=== PATIENT | female | born 1950 | race African-American/Black ===

== ENCOUNTER 2023-03-12 07:55 | Inpatient (IN) | payer OTHER ==
[~2023-03-12 07:55] MED LIST: NA CHLORIDE 0.9% 1,000 ML ONE; NALOXONE HCL 2 MG/2 ML VIAL ONE; NOREPINEPHRINE BITARTRATE/D5W 4 MG/250 ML BAG IV ONE; TENECTEPLASE 50 MG/10 ML VIAL IV ONE
[2023-03-12] MEDS ORDERED: NOREPINEPHRINE BITARTRATE/D5W 0 MG/0 ML BAG IV ONE (08:15)
[2023-03-12] MEDS ORDERED: NA CHLORIDE 0.9% 250 ML ONE (08:16)
[2023-03-12 08:25] LABS: Arterial Blood Carboxyhemoglob 1.6 % (0-1.5); Blood Gas Oxyhemoglobin 90.9 % (94-97); Blood O2 Saturation 93.4 % (92-98.5)
--- OUTSIDE RECORDS SUMMARY | 2023-03-12 08:50 | XMS REPORT | Continuity of Care Document ---
:1950 Author Organization [facility] t Address [address] [facility] [address] [place] [address] Care Team Providers Name Role Phone Jocelyn Mathew MD Primary Care Physician [id number] Attending Clinician Unavailable Elder Jurado Attending Clinician Unavailable MARY STOVERL Darin Attending Clinician Unavailable KIERA STOVER Attending Clinician Unavailable YVETTE FORDUWATOSIN A Attending Clinician Unavailable COY BARRAGAN Attending Clinician Unavailable COY BARRAGAN Attending Clinician Unavailable MAURI JIMÉNEZ Attending Clinician Unavailable Jocelyn Mathew MD Attending Clinician Doctor Unassigned, Lavon Attending Clinician Unavailable Naomi Graham RN Attending Clinician Unavailable ASHU HERRING Attending Clinician Unavailable ASHU HERRING Attending Clinician Unavailable Huy Taylor DO Attending Clinician Nabila BURK, Tan Attending Clinician Noah BURK, Mike Attending Clinician JOCELYN MATHEW Attending Clinician Unavailable ELDER JURADO Attending Clinician Unavailable Arcelia Merrill DO Attending Clinician Mary Anne BURK, Ronal Attending Clinician Hector Gregorio DO Attending Clinician Cristian BURK, Mehul Attending Clinician David BURK, Gopi Attending Clinician Dennis BURK, Quan Attending Clinician Rhiannon BURK, Elder Attending Clinician Lavonne BURK, Allison Renee Attending Clinician [phone] Joshua [facility] [place], Brittni Esquivel Attending Clinician Coy Barragan DO Attending Clinician Katarzyna Anderson MA Attending Clinician Unavailable NICOLE WEATHERS Attending Clinician Unavailable Nicole Weathers MD Attending Clinician VALENTINA PAVON Attending Clinician Unavailable Fabiana AARON, Alisa Esquivel Attending Clinician ALISA JUNG Attending Clinician Unavailable JESI KEATING Attending Clinician Unavailable Artis BURK, Rose Elkins Attending Clinician [phone] Jesi Keating DO Attending Clinician ORLIN CADET Attending Clinician Unavailable Nayeli REZA, Afshan A Attending Clinician [phone] Valentina Mckeon Attending Clinician Leonel MOORE, Meron Wooten Attending Clinician Unavailable Blane [facility] [place], Gisele Madodx Attending Clinician Unavailable TIANA MIJARES Attending Clinician Unavailable Tiana Mijares MD Attending Clinician RADIOLOGY Attending Clinician Unavailable Radiology Attending Clinician Unavailable Robyn Mock Attending Clinician Ebrahim HUMAN FACTORS SCIENTIST, Rania Attending Clinician EBRAHIM, RANIA Attending Clinician Unavailable Unknown, Attending Attending Clinician Unavailable Orlin Cadet MD Attending Clinician Mauri Jiménez MD Attending Clinician Therapist, [facility] Pulmonary Attending Clinician Unavailable Therapist, [facility] Respiratory Attending Clinician Unavailable Pob, [facility] Lab Main Attending Clinician Unavailable Visit, [facility] Nurse Attending Clinician Unavailable 2, [facility] Lab Attending Clinician Unavailable ALLSION BANERJEE Attending Clinician Unavailable Vaccine, [facility] Family Medicine Attending Clinician Unavailable Ryan RN, Chad A Attending Clinician Unavailable SARAH TERAN Attending Clinician Unavailable SARAH TERAN Attending Clinician Unavailable Jaja Neri Attending Clinician Johnny FITZPATRICK, Mildred A Attending Clinician Unavailable Yuliana Tong PT Attending Clinician Unavailable CRISTI CALLEJAS Attending Clinician Unavailable Cristi Callejas MD Attending Clinician Pippa HUMAN FACTORS SCIENTIST, Blanca Attending Clinician Dalila Erickson A Attending Clinician DALILA SNYDER Attending Clinician Unavailable MORGAN MARTELL Attending Clinician Unavailable Nurse, [facility] Pob Immunization Attending Clinician Unavailable Morgan Martell DO Attending Clinician BLANCA DAS Attending Clinician Unavailable Enio Moe Attending Clinician Unavailable MIRZA DRIVER Attending Clinician Unavailable Provider, [facility] Urgent Care Attending Clinician Unavailable Anejoce HUMAN FACTORS SCIENTIST, Tia Attending Clinician TIA PENA Attending Clinician Unavailable Pc, [facility] Echo Room 1 - Attending Clinician Unavailable Ramesh Fernandez MD Attending Clinician Lab, [facility] Fam Pob I Attending Clinician Unavailable Nurse, [facility] Fam Attending Clinician Unavailable Haroldo Alvarado MD Attending Clinician Karen Payton PT Attending Clinician Unavailable Anita Watt PTA Attending Clinician Unavailable Ramesh Francois MD Attending Clinician Benji Perez Attending Clinician [id number] Admitting Clinician Unavailable MIKE CAMPOS Admitting Clinician Unavailable Mike Campos MD Admitting Clinician GOPI ELIAS Admitting Clinician Unavailable Gopi Elias MD Admitting Clinician NICOLE WEATHERS Admitting Clinician Unavailable Nicole Weathers MD Admitting Clinician JESI KEATING Admitting Clinician Unavailable Jesi Keating DO Admitting Clinician VALENTINA PAVON Admitting Clinician Unavailable ROBYN MOCK Admitting Clinician Unavailable COY BARRAGAN Admitting Clinician Unavailable JOCELYN MATHEW Admitting Clinician Unavailable MAURI JIMÉNEZ Admitting Clinician Unavailable ALLISON BANERJEE Admitting Clinician Unavailable BLANCA DAS Admitting Clinician Unavailable Payers Payer Name Policy Type Policy Number Effective Date Expiration Date S [facility] [id number] [facility] [id number] 2021 [facility] 00:00:00 O [employer] MEDICARE ERS [id number] 2017 00:00:00 Problems Condition Condition Condition Status Onset Resolution Last Treating Co mments Source Name Details Category Date Date Treatment Clinician Date Acute Acute Disease Active Univers respirator respirator 4-20 [place] y [place] failure [place] hypoxia hypoxia Branch and and hypercarbi hypercarbi a a Multifocal Multifocal Disease Active U nivers pneumonia pneumonia 4-05 ity of 00:00: [place] 00 Medical Branch Troponin I Troponin I Disease Active U nivers above above 3-29 ity of reference [place] 00:[place] range range 00 Medical [place] Acute on Acute on Disease Active Unive rs chronic chronic 3-27 ity of respirator [place] failure y failure 00 Medi dk with with Branch hypoxia hypoxia Acute Acute Disease Active Univers respirator respirator 3-18 it y of y failure y failure 00:[place] with 00 Medical hypoxia hypoxia Branch Weakness Weakness Disease Active Unive rs 3-17 ity of 00:00: [place] 00 Medical Branch Interstiti Interstiti Disease Active 2021-11 U nivers al lung al lung 1-22 ity of disease disease 00:00: [place] 00 [facility] Branch Chronic Chronic Disease Active 2021-11 Univers interstiti interstiti 1-22 it y of al al 00:00: [place] pneumonia pneumonia 00 [facility] Branch COVID-19 COVID-19 Disease Active 2021-11 Unive rs long long 1-22 ity of hauler hauler 00:00: [place] [facility] Branch Pulmonary Pulmonary Disease Active 2021-11 Uni vers nodule nodule -22 ity of 00:00: [place] 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 Branch Acquired Acquired Disease Active 2021-11 Unive rs hypothyroi hypothyroi 0-20 it y of dism dism 00:00: [place] 00 [facility] Branch Hypoxia Hypoxia Disease Active 2021-11 Univers 0-20 ity of 00:00: [place] [facility] Branch Chronic Chronic Disease Active 2021-11 Univers pain pain 0-20 ity of syndrome syndrome 00:00: [place] [facility] Branch Obesity Obesity Disease Active Univers (BMI (BMI 9-04 ity of 30-39.9) 30-39.9) 00:00: [place] 00 [facility] Branch Fever Fever Disease Active Univers 9-04 ity of 00:00: [place] 00 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 Branch Hip pain Hip pain Disease Active Unive rs 6-28 ity of 00:00: [place] 00 Medical Branch Elevated Elevated Disease Active Unive rs brain brain 6-28 ity of natriureti natriureti 00:00: [place] c peptide c peptide 00 [facility] (BNP) (BNP) Branch level level Acute on Acute on Disease Active Unive rs chronic chronic 6-28 ity of diastolic diastolic 00:00: [place] CHF CHF 00 Medical (congestiv (congestiv Br anch e heart e heart failure), failure), NYHA class NYHA class 3 3 VARNER VARNER Disease Active Univers (dyspnea (dyspnea 6-28 ity of on on 00:00: [place] exertion) exertion) 00 [facility] Branch TRENA (acute TRENA (acute Disease Active U nivers kidney kidney 6-27 ity of injury) injury) 00:00: [place] [facility] Branch Chronic Chronic Disease Active Univers kidney kidney 4-11 ity of disease-mi disease-mi 00:00: [place] neral and neral and 00 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 4-11 it y of sterolemia sterolemia 00:00: [place] 00 [place] Hypertensi Hypertensi Disease Active U nivers ve heart ve heart 4-11 ity of and and 00:00: [place] chronic chronic 00 Medical kidney kidney Branch disease disease with heart with heart failure failure and stage and stage 1 through 1 through stage 4 stage 4 chronic chronic kidney kidney disease, disease, or or unspecifie unspecifie d chronic d chronic kidney kidney disease disease Chronic Chronic Disease Active Univers heart heart 1-20 ity of failure failure 00:00: [place] with with 00 Medical preserved preserved Bran ch ejection ejection fraction fraction SERGE on SERGE on Disease Active Univers CPAP CPAP 1-20 ity of 00:00: [place] [facility] Hyperlipid Hyperlipid Disease Active U nivers emia, emia, 1-20 ity of unspecifie unspecifie 00:00: [place] d d 00 Medical hyperlipid hyperlipid Br anch emia type emia type 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 1-20 it y of a a 00:00: [place] [facility] Branch Diffuse Diffuse Disease Active Univers pain in pain in 2-11 ity of right right 00:00: [place] lower lower 00 Medical extremity extremity Bran ch Hypertensi Hypertensi Disease Active U nivers ve urgency ve urgency 2-11 it y of 00:00: [place] [facility] Chronic Chronic Disease Active Univers pain of pain of 2-11 ity of both lower both lower 00:00: [place] extremitie extremitie 00 Me dical s s Branch Senile Senile Disease Active Univers osteoporos osteoporos 2-04 it y of is is 00:00: [place] [facility] Gastroesop Gastroesop Disease Recurre Univers hageal hageal nce 1-02 ity of reflux reflux 00:00: [place] disease disease 00 Medical without without Branch esophagiti esophagiti s s DVT (deep DVT (deep Disease Active 2015-11 Uni vers venous venous 1-15 ity of thrombosis thrombosis 00:00: [place] ) ) 00 Medical Branch Morbid Morbid Disease Active 2015-11 Univers obesity obesity 1-15 ity of with body with body 00:00[place] mass index mass index 00 Me dical of of Branch 40.0-49.9 40.0-49.9 Vitamin D Vitamin D Disease Active Uni vers deficiency deficiency 8-28 it y of 00:00: [place] [facility] Vitamin Vitamin Disease Active Univers B12 B12 8-28 ity of deficiency deficiency 00:00: [place] 00 [place] 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 00:00: [place] mellitus mellitus 00 Medica l with with Branch hyperglyce hyperglyce joaquin joaquin Peripheral Peripheral Disease Active U nivers neuropathy neuropathy 1-12 it y of 00:00: [place] [facility] 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 00:00: [place] with with 00 Medical diabetic diabetic Branch neuropathy neuropathy Hypertensi Hypertensi Disease Active 2014-11 U nivers on, on, 0-17 ity of essential essential 00:00[place] 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 00:00: [place] multiple multiple 00 Medica l sites sites Branch without without tophus tophus Allergies, Adverse Reactions, Alerts Allergy Allergy Status Severity Reaction(s) Onset Inactive Treating Comm ents Source Name Type Date Date Clinician Hydralaz Propensi Active Other - See Reduced Univers ine ty to comments 07-30 appetite, ity o f adverse 00:00: weakness [place] reaction 00 Medical s Branch HYDRALAZ DRUG Active Other-Cmnt Univ ers INE INGREDI 07-30 ity of 00:00: [place] [facility] Amlodipi Propensi Active Swelling Univ ers ne ty to 07-27 ity of adverse 00:00: [place] reaction 00 Medical s Branch AMLODIPI DRUG Active Swelling Univer s NE INGREDI 07-27 ity of 00:00: [place] 00 Medical Branch No Known DA Active U 2019- [facility] Allergie 2-07 [place] [facility] 00:00: [place] 00 [facility] No Known DA Active U 2019-1 [facility] Allergie 2-07 [place] s 00:00: [place] 00 [facility] Atorvast Propensi Active Unknown - 0 Uni vers atin ty to See comments 4-14 ity of Calcium adverse 00:00: [place] reaction 00 Medical s Branch ATORVAST DRUG Active Unknown-Cmnt Un godfrey ATIN INGREDI 4-14 ity of CALCIUM 00:00: [place] 00 Medical Branch Pregabal Propensi Active Hallucinatio 2017- Univers in ty to ns 1-14 ity of adverse 00:00: [place] reaction 00 Medical s Branch PREGABAL DRUG Active Hallucinates 2017-11 Un godfrey IN INGREDI 1-14 ity of 00:00: [place] 00 Medical Branch Repaglin Propensi Active Rash 2017-11 Univer s amrik ty to 0-10 ity of adverse 00:00: [place] reaction 00 Medical s Branch REPAGLIN DRUG Active High Rash 2017- Univers AMRIK INGREDI 0-10 ity of 00:00: [place] 00 Medical Branch Iodine Propensi Active Hives 2014- Allergic Univer s ty to 0-16 to ity of adverse 00:00: injected [place] reaction Iodine, Medical s not Branch topical IODINE DRUG Active Hives 2014-11 Univers INGREDI 0-16 ity of 00:00: [place] 00 Medical [place] Family History Family Member Diagnosis Comments Start Date Stop Date Source Natural brother Diabetes Universit y of [facility] Natural brother Hypertension Univers ity of [place] [facility] Other [facility] Natural sister Diabetes [facility] Social History Social Habit Start Date Stop Date Quantity Comments Source History SDOH Social Unive rsity of Connections Get [place] Med ical Together Branch History SDOH Social Unive rsity of Connections Mandaeism [place] [facility] History SDOH Social Unive rsity of Connections [place] [facility] Membership Branch History SDOH Social Unive rsity of Connections [place] [facility] Meetings Branch History SDOH University o f Housing Places [facility] Lived Branch Exposure to 2023-02-13 2023-02-23 Not sure University of SARS-CoV-2 (event) 00:00:00 09:09:00 [facility] Branch Alcohol intake 2023-02-23 2023-02-23 Current University of 00:00:00 00:00:00 non-drinker of [facility] alcohol Branch (finding) History SDOH 2023-02-23 2023-02-23 1 University o f Alcohol Frequency 00:00:00 00:00:00 [place] M edical Branch History SDOH 2023-02-23 2023-02-23 0 University o f Alcohol Std Drinks 00:00:00 00:00:00 [place] [facility] History SDOH 2023-02-23 2023-02-23 1 University o f Alcohol Binge 00:00:00 00:00:00 [place] Medic al Branch History SDOH Social 2023-02-23 2023-02-23 4 Unive rsity of Connections Phone 00:00:00 00:00:00 [place] M edical Branch History SDOH Social 2023-02-23 2023-02-23 3 Unive rsity of Connections Living 00:00:00 00:00:00 [place] [facility] History SDOH 2023-02-23 2023-02-23 0 University o f Physical Activity 00:00:00 00:00:00 [place] M edical DPW Branch History SDOH 2023-02-23 2023-02-23 0 University o f Physical Activity 00:00:00 00:00:00 [place] M edical MPS Branch History SDOH 2023-02-23 2023-02-23 5 University o f Financial 00:00:00 00:00:00 [place] [facility] History SDOH 2023-02-23 2023-02-23 2 University o f Housing Unable to 00:00:00 00:00:00 [place] M edical Pay Branch History SDOH 2023-02-23 2023-02-23 2 University o f Housing Homeless 00:00:00 00:00:00 [facility] dical Last Year Branch History SDOH Food 2023-02-23 2023-02-23 1 Univers ity of Worry 00:00:00 00:00:00 [place] [facility] History SDOH Food 2023-02-23 2023-02-23 1 Univers ity of Scarcity 00:00:00 00:00:00 [place] [facility] History SDOH 2023-02-23 2023-02-23 2 University o f Transport Med 00:00:00 00:00:00 [place] Medic al Branch History SDOH 2023-02-23 2023-02-23 2 University o f Transport Non-Med 00:00:00 00:00:00 [facility] edical Branch Tobacco use and 2023-01-31 2023-01-31 Smokeless Universit y of exposure 00:00:00 00:00:00 tobacco non-user [facility] dical Branch Education 2022-05-02 2022-05-02 13 [facility] 00:00:00 00:00:00 [facility] Sex [birth year] At [birth year] Universit y of 00:00:00 00:00:00 [facility] Smoking Status Start Date Stop Date Source Never smoked tobacco [facility] Medications Ordered Filled Start Stop Current Ordering Indication Dosage Frequency Signature Comments Components Source Medication Medication Date Date Medication? Clinician (SIG) Name Name insulin Yes 20U 20 Units, Unive rs glargine 03-04 Subcutaneo ity o f (LANTUS 01:00: us, Q12H, [place] U-100) 00 First dose Medical injection (after Branch 20 Units last modificati on) on Mon03/03/23 at 2000, Until Discontinu ed, Routine cranberry 2022- No 1{tbl} Take 1 Uni vers conc-C-baci 03-03 tablet by it y of llus coag 13:16: 00:00 mouth [place] 250-30-50 16 :00 daily. Medical mg-mg-marilyn Branch on Tab bumetanide Yes [id number] 2mg Take 1 Univers 2 mg tablet 4-28 tablet by ity of 00:00: mouth in [place] 00 the Medical morning. Branch Insulin 0 Yes [id number] INJECT 25 U nivers Glargine 4-28 UNITS ity of (LANTUS 00:00: SUBCUTANEO [place] SOLOSTAR 00 USLY TWICE Medic al U-100 DAILY Branch INSULIN) 100 unit/mL (3 mL) injection spironolact 0 Yes [id number] 12.5mg Take 0.5 Univers one 25 mg 4-28 tablets by ity of tablet 00:00: mouth in [place] 00 the Medical morning. Branch insulin Yes [id number] 7U inject 7 Univers lispro, 4-28 9106 Units ity of human, 00:00: under the [place] (ADMELOG 00 skin in Medical U-100 the Branch INSULIN morning LISPRO) 100 and 7 unit/mL Units at injection noon and 7 Units in the evening. inject before meals. bumetanide Yes [id number] 2mg Take 1 Univers 2 mg tablet 4-28 tablet by ity of 00:00: mouth in [place] the Medical morning. Branch Insulin 0 Yes [id number] INJECT 25 U nivers Glargine 4-28 UNITS ity of (LANTUS 00:00: SUBCUTANEO [place] SOLOSTAR 00 USLY TWICE Medic al U-100 DAILY Branch INSULIN) 100 unit/mL (3 mL) injection spironolact 0 Yes [id number] 12.5mg Take 0.5 Univers one 25 mg 4-28 tablets by ity of tablet 00:00: mouth in [place] the Medical morning. Branch insulin 2022-0 Yes [id number] 7U inject 7 Univers lispro, 4-28 9106 Units ity of human, 00:00: under the [place] (ADMELOG 00 skin in Medical U-100 the Branch INSULIN morning LISPRO) 100 and 7 unit/mL Units at injection noon and 7 Units in the evening. inject before meals. bumetanide 2022-0 Yes [id number] 2mg Take 1 Univers 2 mg tablet 4-28 tablet by ity of 00:00: mouth in [place] 00 the Medical morning. Branch Insulin 2022-0 Yes [id number] INJECT 25 U nivers Glargine 4-28 UNITS ity of (LANTUS 00:00: SUBCUTANEO [place] SOLOSTAR 00 USLY TWICE Medic al U-100 DAILY Branch INSULIN) 100 unit/mL (3 mL) injection spironolact Yes [id number] 12.5mg Take 0.5 Univers one 25 mg 4-28 tablets by ity of tablet 00:00: mouth in [place] 00 the Medical morning. Branch insulin Yes [id number] 7U inject 7 Univers lispro, 4-28 9106 Units ity of human, 00:00: under the [place] (ADMELOG 00 skin in Medical U-100 the Branch INSULIN morning LISPRO) 100 and 7 unit/mL Units at injection noon and 7 Units in the evening. inject before meals. bumetanide Yes [id number] 2mg Take 1 Univers 2 mg tablet 4-28 tablet by ity of 00:00: mouth in [place] 00 the Medical morning. Branch Insulin Yes [id number] INJECT 25 U nivers Glargine 4-28 UNITS ity of (LANTUS 00:00: SUBCUTANEO [place] SOLOSTAR 00 USLY TWICE Medic al U-100 DAILY Branch INSULIN) 100 unit/mL (3 mL) injection spironolact Yes [id number] 12.5mg Take 0.5 Univers one 25 mg 4-28 tablets by ity of tablet 00:00: mouth in [place] 00 the Medical morning. Branch insulin Yes [id number] 7U inject 7 Univers lispro, 4-28 9106 Units ity of human, 00:00: under the [place] (ADMELOG 00 skin in Medical U-100 the Branch INSULIN morning LISPRO) 100 and 7 unit/mL Units at injection noon and 7 Units in the evening. inject before meals. tamsulosin 2022- Yes [id number] .4mg Take 1 Univers 0.4 mg 24 4-02 04-29 capsule by ity of hr capsule 00:00: 04:59 [place] :00 bedtime Medical for 30 days. tamsulosin 2022- Yes [id number] .4mg Take 1 Univers 0.4 mg 24 4- 05-29 capsule by ity of hr capsule 00:00: 04:59 [place] 00 :00 bedtime Medical for 30 Branch days. tamsulosin 2022- Yes [id number] .4mg Take 1 Univers 0.4 mg 24 -02 04-29 capsule by ity of hr capsule 00:00: 04:59 [place] 00 :00 bedtime Medical for 30 Branch days. tamsulosin 2022- Yes [id number] .4mg Take 1 Univers 0.4 mg 24 -02 04-29 capsule by ity of hr capsule 00:00: 04:59 [place] 00 :00 bedtime Medical for 30 Branch days. predniSONE 2022- Yes [id number] Take 2 Univers 20 mg 4-28 05-08 tablets by ity of tablet 00:00: 04:59 mouth [place] 00 :00 daily for Medical 3 days, Branch THEN 1 tablet daily for 3 days, THEN 0.5 tablets daily for 3 days. predniSONE 0 2022- Yes [id number] Take 2 Univers 20 mg 4- 05-08 tablets by ity of tablet 00:00: 04:59 mouth [place] 00 :00 daily for Medical 3 days, Branch THEN 1 tablet daily for 3 days, THEN 0.5 tablets daily for 3 days. predniSONE 2022- Yes [id number] Take 2 Univers 20 mg 4-28 05-08 tablets by ity of tablet 00:00: 04:59 mouth [place] 00 :00 daily for Medical 3 days, Branch THEN 1 tablet daily for 3 days, THEN 0.5 tablets daily for 3 days. predniSONE 2022- Yes [id number] Take 2 Univers 20 mg 4-28 05-08 tablets by ity of tablet 00:00: 04:59 mouth [place] 00 :00 daily for Medical 3 days, Branch THEN 1 tablet daily for 3 days, THEN 0.5 tablets daily for 3 days. sodium 2022-0 2022- No 4mL 4 mL, Univers chloride 7% 03-02 Inhalation i ty of (HYPER-CHAY) 21:00: 16:39 , QID, [place] as nebulizer 00 :46 First dose Medi dk solution 4 on [place] Branch mL 03/02/23 at 1600, Until Discontinu ed, Routine tamsulosin 0 Yes .4mg 0.4 mg, Univ ers (FLOMAX) 03-02 Oral, QHS, ity o f capsule 0.4 02:00: First dose [place] mg 00 on Mon03/01/23 at Branch 2100, Until Discontinu ed, Routine bumetanide Yes 2mg 2 mg, Univer s (BUMEX) 02-28 Oral, ity of tablet 2 mg 14:00: [place]ILY, [place] 00 First dose Medical (after Branch last modificati on) on Mon02/28/23 at 0900, Until Discontinu ed, Routine bumetanide 2022- No 1mg 1 mg, Slow Univers (BUMEX) 02-28 IV Push, ity of injection 1 06:00: 05:40 [place]CE, 1 [place] mg 00 :00 dose, On [facility] Mon [place] 02/28/23 at 0100, Routine KCL 2022- No 40meq 40 mEq, Univers (KLOR-CON 02-27 Oral, ity of M20) tablet 14:00: 13:50 [place]CE, 1 [place] 40 mEq 00 :00 dose, On [facility] 02/27/23 at 0900, Routine bumetanide 2022- No 2mg 2 mg, Unive rs (BUMEX) 02-27 Oral, ity of tablet 2 mg 14:00: 22:00 QAM+PM, [place] 00 :40 First dose Medical (after Branch last modificati on) on [facility] [facility] 02/27/23 at 0900, Until Discontinu ed, Routine insulin 2022- No 35U 35 Units, Univ ers glargine 02-27 Subcutaneo ity of (LANTUS 01:00: 14:51 us, Q12H, [place] U-100) 00 :04 First dose Medical injection (after Branch 35 Units last modificati on) on Mon02/26/23 at 2000, Until Discontinu ed, Routine insulin 2022- No 6U 6 Units, Unive rs lispro 02-26 Subcutaneo ity of (human) 18:30: 17:31 us, ONCE, Zachary garcia (HumaLOG 00 :00 1 dose, On Medic al U-100) Sun Branch injection 6 02/26/23 at Units 1330, ROSELYN acetaZOLAMI 2022- No 500mg 500 mg, U nivers DE (DIAMOX) 02-26 Oral, BID, i ty of tablet 500 01:00: 13:58 4 doses, [place] mg 00 :00 First dose Medical on Sat Branch 02/25/23 at 2000, Last dose on 02/27/23 at 0800, Routine insulin 2022- No 25U 25 Units, Univ ers glargine 02-26 Subcutaneo ity of (LANTUS 01:00: 17:30 us, Q12H, [place] U-100) 00 :59 First dose Medical injection on Sat Branch 25 Units 02/25/23 at 1999, Until Discontinu ed, Routine NaCl 0.9% No 1000mL at 100 Uni vers (NS) IV 02-25 mL/hr, IV ity of infusion 20:45: 06:00 Infusion, [place] 1,000 mL 00 :00 ONCE, 1 Medical dose, On Branch 02/25/23 at 1545, Routine dextrometho Yes 5mL 5 mL, Unive rs rphan-guaif 02-25 Oral, ity of enesin 20:10: Q6HPRN, [place] (ROBITUSSIN 18 Starting Medi dk DM) 10-100 on [facility] Branch mg/5 mL 02/25/23 at solution 5 1510, mL Until Discontinu ed, Routine, Cough HYDROcodone Yes 1{tbl} 1 tablet, Univers -acetaminop 02-25 Oral, ity of hen (NORCO 03:24: Q6HPRN, [place] 5) 5-325 mg 14 Starting Medi dk tablet 1 on Mon Branch tablet 02/24/23 at 2224, Until Discontinu ed, Routine, Pain (scale 7-10) bumetanide 2022- No 2mg 2 mg, Slow Univers (BUMEX) 02-25 IV Push, ity of injection 2 01:00: 23:30 Q12H, [place] mg 00 :12 First dose Medical (after Branch last reorder) on Mon02/24/23 at 2000, Until Discontinu ed, Routine Sliding 2022-0 Yes Subcutaneo Univ ers Scale - us, TID ity of Insulin - 22:00: MEALS+HS, [place] Lispro 00 First dose Medical (HumaLOG) + on Mon Branch Fsbg 02/24/23 at Testing 1700, Until Discontinu ed, Routine dextrose 2022-0 Yes 250mL 250 mL, IV Un godfrey 10% (D10W) 02-24 Infusion, ity of bolus 17:27: PRN - SEE [place] infusion 43 INSTRUCTIO Medic al 250 mL NS, Branch Administer over 60 Minutes, Other, If blood glucose is < or = 70 mg/dL and patient is unable to swallow or has mental status changes, Starting on Mon02/24/23 at 1227
If blood glucose is < or = 70 mg/dL and patient is unable to swallow or has mental status changes (Give glucagon order if patient needs fluid restrictio n): IF IV access available: Dextrose 10%. 1. 125 mL (? bag) of D10W IV infusion - equivalent to 12.5 g dextrose 2. Blood glucose - draw blood glucose 15 minutes after D10W Administra tion. 3. If blood glucose is < 80 mg/dL, repeat.
glucagon Yes 1mg 1 mg, Univers (GLUCAGEN 02-24 Intramuscu ity of DIAGNOSTIC 17:27: lar, PRN, [place] KIT) 40 Starting Medical injection 1 on Mon Branch mg 02/24/23 at 1227, Until Discontinu ed, ROSELYN, Blood Glucose < or = 70 mg/dL and patient is NPO, unable to swallow or has mental changes. bumetanide 2022-0 2022- No 2mg 2 mg, Slow Univers (BUMEX) 02-24-21 IV Push, ity of injection 2 17:00: 16:24 ONCE, 1 [place] mg 00 :00 dose, On Medical Fri Branch 02/24/23 at 1200, Routine levothyroxi 2022-0 Yes 125ug 125 mcg, U nivers ne 02-24 Oral, ity of (SYNTHROID) 11:00: QAM-0600, [place] tablet 125 00 First dose Med ical mcg on Fri Branch 02/24/23 at 0600, Until Discontinu ed, Routine heparin 2022-0 Yes 5000U 5,000 Univers (porcine) 21 Units, ity of injection 01:00: Subcutaneo [place] 5,000 Units 00 us, Q12H, Med ical First dose Branch on [facility] 02/23/23 at 2000, Until Discontinu ed, Routine Sliding 2022-0 2022- No Subcutaneo Uni vers Scale 02-23 04-21 us, Q6H, ity of Insulin - 14:45: 17:27 First dose [place] Lispro 00 :57 on [facility] (HumaLOG) + 02/23/23 at anch Fsbg 0945, Testing Until Discontinu ed, Routine spironolact Yes 12.5mg 12.5 mg, Univers one -20 Oral, ity of (ALDACTONE) 14:00: DAILY, [place] tablet 12.5 00 First dose Me dical mg on [facility] Branch 02/23/23 at 0900, Until Discontinu ed, Routine predniSONE Yes 40mg 40 mg, Unive rs (DELTASONE) 4-20 Oral, ity of tablet 40 14:00: DAILY, [place] mg 00 First dose Medical on [facility] Branch 02/23/23 at 0900, Until Discontinu ed, Routine bumetanide 0 2022- No 1mg 1 mg, Slow Univers (BUMEX) 02-23 04-20 IV Push, ity of injection 1 13:41: 15:11 ONCE, 1 [place] mg 00 :00 dose, On Medical [facility]3] 02/23/23 at 0845, ROSELYN gabapentin 0 Yes 600mg 600 mg, Uni vers (NEURONTIN) 4-20 Oral, TID, it y of capsule 600 13:15: First dose [place] mg 00 on [facility] 02/23/23 at Branch 0815, Until Discontinu ed, Routine carvediloL 0 Yes 12.5mg 12.5 mg, U nivers (COREG) 4-20 Oral, BID ity of tablet 12.5 13:15: MEALS, [place] mg 00 First dose Medical on [facility]3] 02/23/23 at 0815, Until Discontinu ed, Routine tiZANidine 2022- No 2mg 2 mg, Unive rs (ZANAFLEX) 02-23 Oral, ity of tablet 2 mg 13:01: 20:07 Q8HPRN, [place] 07 :13 Starting Medical on [facility] Branch 02/23/23 at 0801, Until 02/25/23 at 1507, Muscle Spasms ipratropium Yes .5mg 0.5 mg, Uni vers (ATROVENT) 02-23 Inhalation ity of 0.02 % 12:59: , Q6HPRN, [place] nebulizer 51 Starting Medica l solution on [facility]3] 0.5 mg 02/23/23 at 0759, Until Discontinu ed, Routine, Wheezing, Shortness of Breath ipratropium 2022- No 6mL 6 mL, Univ ers -albuteroL 02-23 Inhalation it y of (DUONEB) 12:15: 12:22 , ONCE [place] 0.5 mg-3 00 :00 NOW, 1 Medical mg(2.5 mg dose, On Branch base)/[address] [facility] nebulizer 02/23/23 at solution 6 0715, mL Routine aspirin 2022- No 325mg 325 mg, Unive rs tablet 325 02-23 Oral, ity of mg 12:00: 11:36 ONCE, 1 [place] 00 :00 dose, On Medical [facility]3] 02/23/23 at 0700, Routine enoxaparin 2022- No 100mg 100 mg, Un godfrey (LOVENOX) 02-23 Subcutaneo ity of injection 12:00: 11:40 us, ONCE, [place] 100 mg 00 :00 1 dose, On Medical [facility]3] 02/23/23 at 0700, Routine nitroglycer No .5[in_u 0.5 Inch, Univers in (NITROL) 02-23 s] Transderma i ty of 2 % 11:15: 11:40 l (Apply [place] ointment 00 :00 To Skin), Medica l 0.5 Inch ONCE, 1 Branch dose, On [facility] 02/23/23 at 0615, ROSELYN ipratropium 2022- No 6mL 6 mL, Univ ers -albuteroL 02-23 Inhalation it y of (DUONEB) 11:00: 09:57 , ONCE [place] 0.5 mg-3 00 :00 NOW, 1 Medical mg(2.5 mg dose, On base)/3 mL [place] nebulizer 02/23/23 at solution 6 0600, mL Routine dextrose No 250mL 250 mL, IV U nivers 10% (D10W) 02-23 Infusion, ity of bolus 10:45: 11:09 ONCE, [place] infusion 00 :00 Administer Medic al 250 mL over 60 Branch Minutes, On [place] 02/23/23 at 0545, For 1 dose
De xtrose 10% 250 mL bag contains:& nbsp;10 gm = 100 mL 20 gm = 200 mL 25 gm = 250 mL (whole bag) The maximum rate at which dextrose can be infused without producing glycosuria is 0.5 g/kg/hour. &nbs p;BUD: If wrapper is open bag is good for 30 days at room temperatur e. <b r> omeprazole Yes 40mg 40 mg, Unive rs (PRILOSEC) - Oral, ity of capsule 40 14:00: DAILY, [place] mg 00 First dose Medical on Mon02/22/23 at 0900, Until Discontinu ed, Routine predniSONE 2022- No [id number] 40mg Take 2 Univers 20 mg -22 02-28 tablets by ity of tablet 00:00: 00:00 mouth in [place] 00 :00 the [facility] for 5 days. predniSONE 2022- Yes [id number] 40mg Take 2 Univers 20 mg 4-22 02-25 tablets by ity of tablet 00:00: 04:59 mouth in [place] 00 :00 the [facility] for 5 days. predniSONE 2022- Yes [id number] 40mg Take 2 Univers 20 mg 4-22 02-25 tablets by ity of tablet 00:00: 04:59 mouth in [place] 00 :00 the Medical morning Branch for 5 days. bisacodyL Yes 10mg 10 mg, Univer s (DULCOLAX) 4-18 Rectal, ity of suppository 20:17: QHSPRN, [place] 10 mg 01 Starting Medical on Tue Branch 02/21/23 at 1517, Until Discontinu ed, Routine, Constipati on unresolved by oral medication s cranberry Yes 1{tbl} Take 1 Univ ers conc-C-baci 4-18 tablet by ity of llus coag 17:32: mouth [place] 250-30-50 18 daily. Medical mg-mg-marilyn Branch on Tab cranberry Yes 1{tbl} Take 1 Univ ers conc-C-baci 4-18 tablet by ity of llus coag 15:59: mouth [place] 250-30-50 32 daily. Medical mg-mg-marilyn Branch on Tab sennosides- Yes 1{tbl} 1 tablet, Univers docusate 4-18 Oral, BID, ity o f sodium 03:15: First dose [place] (SENOKOT-S) 00 on Mon Medica l 8.6-50 mg 02/20/23 at Bran ch per tablet 2215, 1 tablet Until Discontinu ed, Routine bumetanide 2022- Yes [id number] 2mg Take 1 Univers 2 mg tablet 02-21-19 tablet by it y of 00:00: 04:59 mouth [place] 00 :00 every Medical morning Branch and evening for 30 days. carvediloL 2022- Yes [id number] 12.5mg Take 1 Univers 12.5 mg -23 03-19 tablet by ity of tablet 00:00: 04:59 mouth in [place] 00 :00 the Medical morning Branch and 1 tablet in the evening. Take with meals. Do all this for 30 days. bumetanide 2022- Yes [id number] 2mg Take 1 Univers 2 mg tablet 02-21-19 tablet by it y of 00:00: 04:59 mouth [place] 00 :00 every Medical morning Branch and evening for 30 days. carvediloL 2022- Yes [id number] 12.5mg Take 1 Univers 12.5 mg 4-18 05-19 tablet by ity of tablet 00:00: 04:59 mouth in [place] 00 :00 the Medical morning Branch and 1 tablet in the evening. Take with meals. Do all this for 30 days. carvediloL 2022- Yes [id number] 12.5mg Take 1 Univers 12.5 mg 4-18 05-19 tablet by ity of tablet 00:00: 04:59 mouth in [place] 00 :00 the Medical morning Branch and 1 tablet in the evening. Take with meals. Do all this for 30 days. carvediloL 2022- Yes [id number] 12.5mg Take 1 Univers 12.5 mg 4-18 05-19 tablet by ity of tablet 00:00: 04:59 mouth in [place] 00 :00 the Medical morning Branch and 1 tablet in the evening. Take with meals. Do all this for 30 days. carvediloL 2022- Yes [id number] 12.5mg Take 1 Univers 12.5 mg 4-18 05-19 tablet by ity of tablet 00:00: 04:59 mouth in [place] 00 :00 the [facility] morning [place] and 1 tablet in the evening. Take with meals. Do all this for 30 days. carvediloL 2022- Yes [id number] 12.5mg Take 1 Univers 12.5 mg 4-18 05-19 tablet by ity of tablet 00:00: 04:59 mouth in [place] 00 :00 the [facility] morning [place] and 1 tablet in the evening. Take with meals. Do all this for 30 days. bumetanide 2022- No [id number] 2mg Take 1 Univers 2 mg tablet 4-18 -28 tablet by it y of 00:00: 00:00 mouth [place] 00 :00 every Medical morning Branch and evening for 30 days. carvediloL Yes 12.5mg 12.5 mg, U nivers (COREG) 4-17 Oral, BID ity of tablet 12.5 22:00: MEALS, [place] mg 00 First dose Medical (after Branch last modificati on) on 02/20/23 at 1700, Until Discontinu ed, Routine phenoL Yes 1{spray 1 [place], Univ ers (SORE 4-17 } Oral, PRN, ity of THROAT 11:13: Starting [place] (PHENOL)) 24 on Mon Medical 1.4 % spray 02/20/23 at Br anch bottle 1 0613, [place] Until Discontinu ed, Routine, Sore throat guaiFENesin Yes 200mg 200 mg, Un godfrey 100 mg/5 mL 02-20 Oral, ity of solution 05:15: Q6HPRN, [place] 200 mg 39 Starting Medical on Mon Branch 02/20/23 at 0015, Until Discontinu ed, Routine, Cough bumetanide Yes 2mg 2 mg, Univer s (BUMEX) 02-18 Oral, ity of tablet 2 mg 22:00: QAM+PM, [place] 00 First dose Medical on Mon Branch 02/18/23 at 1700, Until Discontinu ed, Routine piperacilli 2022- No 3.375g 3.375 g, Univers n-tazobacta 02-18 IV ity of m (ZOSYN) 14:00: 10:33 Piggyback, [place] 3.375 g in 00 :00 Q8H ABX, 9 Med ical NaCl 0.9% doses, Branch (NS) 100 mL First dose MINI-BAG (after last reorder) on [facility] 02/18/23 at 0900, Last dose on Mon02/21/23 at 0100, Administer over 4 Hours, 100 mL
Reas on for Anti-Infec tive: Documented Infection< br>Documen walt Infection Site: Respirator y
Durat ion of Therapy: Other (see Comments) KCL 2022- No 40meq 40 mEq, Univers (KLOR-CON 02-17 Oral, ity of M20) tablet 14:30: 14:27 ONCE, 1 [place] 40 mEq 00 :00 dose, On Medical Fri Branch 02/17/23 at 0930, Routine sulfur 2022- No [id number] 5mL 5 mL, Univ ers hexafluorid 02-16 Intravenou i ty of e microsphr 14:45: 14:45 s, ONCE, 1 [place] (LUMASON) 00 :00 dose, On Medica l injection 5 [place] Branch mL 02/16/23 at 0945, Routine
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 Restricted medication : NIK LÓPEZ bumetanide 2022- No 3mg 3 mg, Slow Univers (BUMEX) 02-16 IV Push, ity of injection 3 01:00: 16:05 Q12H, [place] mg 00 :50 First dose Medical (after Branch last modificati on) on Mon02/15/23 at 2000, Until Discontinu ed, Routine ipratropium Yes 3mL 3 mL, Unive rs -albuteroL 02-15 Inhalation ity of (DUONEB) 21:00: , QID, [place] 0.5 mg-3 00 First dose Medic al mg(2.5 mg on Mon [place] )/3 mL 02/15/23 at nebulizer 1600, solution 3 Until mL Discontinu ed, Routine bumetanide 2022- No 2mg 2 mg, Slow Univers (BUMEX) 02-15 IV Push, ity of injection 2 15:30: 17:58 Q24H, [place] mg 00 :21 First dose Medical on Mon [place] 02/15/23 at 1030, Until Discontinu ed, Routine insulin Yes 35U 35 Units, Unive rs glargine 02-15 Subcutaneo ity o f (LANTUS 13:00: us, BID, [place] U-100) 00 First dose Medical injection (after Branch 35 Units last modificati on) on Mon02/15/23 at 0800, Until Discontinu ed bumetanide 2022- No 1mg 1 mg, Slow Univers (BUMEX) 02-15 IV Push, ity of injection 1 04:00: 04:25 ONCE, 1 [place] mg 00 :00 dose, On Medical [facility] 02/14/23 at 2300, Routine piperacilli 2022- No 3.375g 3.375 g, Univers n-tazobacta 02-15 IV ity of m (ZOSYN) 00:30: 21:25 Piggyback, [place] 3.375 g in 00 :00 Q8H ABX, 9 Med ical NaCl 0.9% doses, Branch (NS) 100 mL First dose MINI-BAG on Mon02/14/23 at 1930, Last dose on Mon02/17/23 at 1130, Administer over 4 Hours, 100 mL
Reas on for Anti-Infec tive: Documented Infection< br>Documen walt Infection Site: Respirator y
Durat ion of Therapy: Other (see Comments) bumetanide No 2mg 2 mg, Unive rs (BUMEX) 02-14 Oral, ity of tablet 2 mg 22:00: 14:22 QAM+PM, [place] 00 :12 First dose Medical (after Branch last modificati on) on Mon02/14/23 at 1700, Until Discontinu ed, Routine piperacilli No 3.375g 3.375 g, Univers n-tazobacta 02-14 IV ity of m (ZOSYN) 16:30: 17:33 Piggyback, [place] 3.375 g in 00 :00 ONCE, 1 Medica l NaCl 0.9% dose, On Branch (NS) 100 mL Mon MINI-BAG 02/14/23 at 1130, Administer over 30 Minutes, 100 mL
Reas on for Anti-Infec tive: Documented Infection< br>Documen walt Infection Site: Respirator y
Du ration of Therapy: Other (see Comments) predniSONE Yes 40mg 40 mg, Unive rs (DELTASONE) 02-14 Oral, ity of tablet 40 14:00: DAILY, [place] mg 00 First dose Medical on Mon Branch 02/14/23 at 0900, Until Discontinu ed, Routine diltiazem No 120mg 120 mg, Uni vers XR 02-13 Oral, ity of (DILT-XR) 19:30: 15:59 DAILY, [place] capsule 120 00 :07 First dose Me dical mg on Mon02/13/23 at 1430, Until Discontinu ed, Routine albuterol No 2.5mg 2.5 mg, Uni vers (PROVENTIL) 02-13 Inhalation i ty of 2.5 mg /3 00:15: 17:56 , Q6H, [place] mL (0.083 00 :13 First dose Medi dk %) on Sun Branch nebulizer 02/12/23 at solution 1915, 2.5 mg Until Discontinu ed, Routine ERGOCALCIFE 2023-0 Yes [id number] Take 1 Univers ROL, 4-10 capsule by ity of VITAMIN D2, 00:00: mouth once [place] 1,250 mcg 00 a week Medical (50,000 Branch unit) capsule ERGOCALCIFE 2023-0 Yes [id number] Take 1 Univers ROL, 4-10 capsule by ity of VITAMIN D2, 00:00: mouth once [place] 1,250 mcg 00 a week Medical (50,000 Branch unit) capsule ERGOCALCIFE 2023-0 Yes [id number] Take 1 Univers ROL, 4-10 capsule by ity of VITAMIN D2, 00:00: mouth once [place] 1,250 mcg 00 a week Medical (50,000 Branch unit) capsule ERGOCALCIFE 2023-0 Yes [id number] Take 1 Univers ROL, 4-10 capsule by ity of VITAMIN D2, 00:00: mouth once [place] 1,250 mcg 00 a week Medical (50,000 Branch unit) capsule ERGOCALCIFE 2023-0 Yes [id number] Take 1 Univers ROL, 4-10 capsule by ity of VITAMIN D2, 00:00: mouth once [place] 1,250 mcg 00 a week Medical (50,000 Branch unit) capsule ERGOCALCIFE 2023-0 Yes [id number] Take 1 Univers ROL, 4-10 capsule by ity of VITAMIN D2, 00:00: mouth once [place] 1,250 mcg 00 a week Medical (50,000 Branch unit) capsule ipratropium 2022-0 202- No .5mg 0.5 mg, Un godfrey (ATROVENT) 02-11 04-12 Inhalation it y of 0.02 % 23:00: 17:56 , Q6H, [place] nebulizer 00 :13 First dose Medi dk solution (after Branch 0.5 mg last modificati on) on 02/11/23 at 1800, Until Discontinu ed, Routine levalbutero 2022-0 2023- No 1.25mg 1.25 mg, Univers l (XOPENEX) 02-11-10 Inhalation i ty of nebulizer 23:00: 00:09 , Q6H, [place] solution 00 :40 First dose Medic al 1.25 mg on Sat [place] 02/11/23 at 1800, Until Discontinu ed, Routine
Approved by: [facility] FENTanyl PF 2022- No Slow IV Un godfrey (SUBLIMAZE 02-10 Push, PRN, it y of (PF)) 16:03: 16:03 Starting [place] injection 17 :17 on Fri Medical 02/10/23 at Branch 1103, Until 02/10/23 at 1103, Routine, Intra-op lidocaine 2022- No PRN, Univers 1% (PF) 02-10 Starting ity of (XYLOCAINE) 16:03: 16:03 on Fri [place] injection 05 :05 02/10/23 at Medic al 1103, Branch Until Mon02/10/23 at 1103, Routine, Intra-op bumetanide 2022- No 2mg 2 mg, Unive rs (BUMEX) 02-10 Oral, ity of tablet 2 mg 14:00: 21:17 DAILY, [place] 00 :15 First dose Medical on Fri [place] 02/10/23 at 0900, Until Discontinu ed, Routine Vancomycin 2022- No 750mg 750 mg, IV Univers 750 mg in 02-10 Piggyback, ity of NaCl 0.9% 02:00: 03:12 ONCE, 1 [place] (NS) 250 mL 00 :00 dose, On [facility] dk VIAL-MATE [facility] 02/09/23 [facility] at 2100, Administer over 60 Minutes, 250 mL
R kathleen for Anti-Infec tive: Documented Infection< br>Documen walt Infection Site: Respirator y
Durat ion of Therapy: 7 days methylPREDN 2022- No 40mg 40 mg, Uni vers ISolone sod 02-10 Intravenou i ty of succ 01:00: 15:34 s, BID, [place] (SOLU-MEDRO 00 :06 First dose Me dical L (PF)) (after Branch injection last 40 mg modificati on) on [facility] 02/09/23 at 2000, Until Discontinu ed, 1 mL insulin Yes 5U 5 Units, Univer s lispro 02-09 Subcutaneo ity of (human) 22:00: us, TID [place] (HumaLOG 00 MEALS, Medical U-100) First dose Branch injection 5 on [place] Units 02/09/23 at 1700, Until Discontinu ed, Routine bumetanide No 1mg 1 mg, Unive rs (BUMEX) 02-0911 Oral, QPM, ity o f tablet 1 mg 22:00: 21:17 First dose [place] 00 :15 on [place] Medical 02/09/23 at Branch 1700, Until Discontinu ed, Routine insulin No 40U 40 Units, Univ ers glargine 02-0912 Subcutaneo ity of (LANTUS 18:15: 03:09 us, BID, [place] U-100) 00 :59 First dose Medical injection on [place] Branch 40 Units 02/09/23 at 1315, Until Discontinu ed aspirin EC Yes 81mg 81 mg, Unive rs tablet 81 02-09 Oral, ity of mg 14:00: DAILY, [place] 00 First dose Medical on [place] Branch 02/09/23 at 0900, Until Discontinu ed, Routine allopurinoL Yes 200mg 200 mg, Un godfrey (ZYLOPRIM) 02-09 Oral, ity of tablet 200 14:00: DAILY, [place] mg 00 First dose Medical on [place] Branch 02/09/23 at 0900, Until Discontinu ed, Routine pantoprazol No 40mg 40 mg, Uni vers e 02-09 Oral, ity of (PROTONIX) 14:00: 15:05 DAILY, [place] EC tablet 00 :28 First dose Medi dk 40 mg on [place] Branch 02/09/23 at 0900, Until Discontinu ed, Routine carvediloL No 6.25mg 6.25 mg, Univers (COREG) 02-09 Oral, BID ity of tablet 6.25 13:00: 15:59 MEALS, [place] mg 00 :41 First dose Medical on [place] Branch 02/09/23 at 0800, Until Discontinu ed, Routine bumetanide 2022- No .5mg 0.5 mg, Uni vers (BUMEX) 02-09 04-06 Slow IV ity of injection 13:00: 21:34 Push, BID, [place] 0.5 mg 00 :46 First dose Medical on [place] Branch 02/09/23 at 0800, Until Discontinu ed, Routine levothyroxi Yes 125ug 125 mcg, U nivers ne -06 Oral, ity of (SYNTHROID) 11:00: QAM-0600, [place] tablet 125 00 First dose Med ical mcg on [place] Branch 02/09/23 at 0600, Until Discontinu ed, Routine piperacilli 2022- No 3.375g 3.375 g, Univers n-tazobacta 02-09 04-10 IV ity of m (ZOSYN) 07:30: 21:18 Piggyback, [place] 3.375 g in 00 :53 Q8H ABX, Medic al NaCl 0.9% 30 doses, Branc h (NS) 100 mL First dose MINI-BAG on [place] 02/09/23 at 0230, Last dose on [facility] 02/18/23 at 1830, Administer over 4 Hours, 100 mL
Reas on for Anti-Infec tive: Documented Infection< br>Documen walt Infection Site: Respirator y
Durat ion of Therapy: 10 days heparin Yes 5000U 5,000 Univers (porcine) 06 Units, ity of injection 03:00: Subcutaneo [place] 5,000 Units 00 us, Q8H, Medi dk First dose Branch on Mon02/08/23 at 2200, Until Discontinu ed, Routine amitriptyli Yes 50mg 50 mg, Univ ers ne (ELAVIL) 4-06 Oral, QHS, it y of tablet 50 02:00: First dose [place] mg 00 on Mon Medical 02/08/23 at Branch 2100, Until Discontinu ed, Routine Sliding Yes Subcutaneo Univ ers Scale 4-06 us, TID ity of Insulin - 02:00: MEALS+HS, [place] Lispro 00 First dose Medical (HumaLOG) + on Mon Branch Fsbg 02/08/23 at Testing 2100, Until Discontinu ed, Routine vancomycin 2022- No 500mg 500 mg, IV Univers (VANCOCIN) 02-09- Piggyback, it y of 500 mg in 01:30: 02:40 ONCE, 1 [place] NaCl 0.9% 00 :00 dose, On Medica l (NS) 100 mL Mon02/08/23 Br anch MINI-BAG at 2030, Administer over 30 Minutes, 100 mL
R kathleen for Anti-Infec tive: Documented Infection< br>Documen walt Infection Site: Respirator y
Durat ion of Therapy: 7 days gabapentin Yes 100mg 100 mg, Uni vers (NEURONTIN) 06 Oral, TID, it y of capsule 100 01:00: First dose [place] mg 00 on Mon Medical 02/08/23 at Branch 1999, Until Discontinu ed, Routine budesonide- Yes 2{puff} 2 Puff, Univers formoteroL 02-09 Inhalation ity of (SYMBICORT) 01:00: , BID, [place] 80-4.5 00 First dose Medical mcg/actuati on Mon on inhaler 02/08/23 at 2 Puff 1999, Until Discontinu ed, Routine methylpredn 2022- No 60mg 60 mg, Uni vers isolone sod 02-09 Intravenou i ty of succ 01:00: 15:07 s, BID, [place] (SOLU-MEDRO 00 :29 First dose Me dical L) on Mon Branch injection 02/08/23 at 60 mg 1999, Until Discontinu ed, 2 mL acetaminoph Yes 2745 1{tbl} 1 tablet, Univers en-codeine 02-08 Oral, ity of (TYLENOL 23:00: TIDPRN, [place] #3) 300-30 01 Starting Medic al mg tablet 1 on Mon Branch tablet 02/08/23 at 1800, Until Discontinu ed, Routine, Pain (scale 4-6), Pain (scale 7-10) dextrose 2022-0 Yes 250mL 250 mL, IV Un godfrey 10% (D10W) 405 Infusion, ity of bolus 22:44: PRN - SEE [place] infusion 13 INSTRUCTIO Medic al 250 mL NS, Branch Administer over 60 Minutes, Other, If blood glucose is < or = 70 mg/dL and patient is unable to swallow or has mental status changes, Starting on Mon02/08/23 at 1744
If blood glucose is < or = 70 mg/dL and patient is unable to swallow or has mental status changes (Give glucagon order if patient needs fluid restrictio n): IF IV access available: Dextrose 10%. 1. 125 mL (? bag) of D10W IV infusion - equivalent to 12.5 g dextrose 2. Blood glucose - draw blood glucose 15 minutes after D10W Administra tion. 3. If blood glucose is < 80 mg/dL, repeat.
glucagon Yes 1mg 1 mg, Univers (GLUCAGEN 4-05 Intramuscu ity of DIAGNOSTIC 22:44: [place], PRN, [place] KIT) 11 Starting Medical injection 1 on Mon Branch mg 02/08/23 at 1744, Until Discontinu ed, ROSELYN, Blood Glucose < or = 70 mg/dL and patient is NPO, unable to swallow or has mental changes. ondansetron Yes 4mg 4 mg, Slow Univers (ZOFRAN 4-05 IV Push, ity of (PF)) 22:42: Q6HPRN, [place] injection 4 40 Starting Medi dk mg on Mon Branch 02/08/23 at 1742, Until Discontinu ed, Routine, Nausea and Vomiting (N/V) acetaminoph Yes 650mg 650 mg, Un godfrey en 4-05 Oral, ity of (TYLENOL) 22:40: Q6HPRN, [place] tablet 650 29 Starting Medic al mg on Mon [place] 02/08/23 at 1740, Until Discontinu ed, Routine, Pain (scale 1-3) cranberry Yes 1{tbl} Take 1 Univ ers conc-C-baci 4-05 tablet by ity of llus coag 18:05: mouth [place] 250-30-50 08 daily. Medical mg-mg-marilyn [place] on Tab cranberry Yes 1{tbl} Take 1 [facility] ers conc-C-baci 4-05 tablet by ity of llus coag 18:05: mouth [place] 250-30-50 08 daily. Medical mg-mg-marilyn [facility] on Tab cranberry Yes 1{tbl} Take 1 Univ ers conc-C-baci 4-05 tablet by ity of llus coag 18:05: mouth [place] 250-30-50 08 daily. Medical mg-mg-marilyn Branch on Tab cranberry Yes 1{tbl} Take 1 Univ ers conc-C-baci -05 tablet by ity of llus coag 18:05: mouth [place] 250-30-50 08 daily. Medical mg-mg-marilyn Branch on Tab vancomycin 2022- No 15mg/kg 1,500 mg Univers (VANCOCIN) 02-08 (rounded ity of 1,500 mg in 18:00: 19:43 from 1,497 [place] NaCl 0.9% 00 :00 mg = 15 Medical (NS) 500 mL mg/kg Branch VIAL-MATE ?99.8 kg), IV IV piggyback Piggyback, ONCE, 1 dose, On Mon02/08/23 at 1300, Administer over 90 Minutes, 500 mL
Reas on for Anti-Infec tive: Documented Infection< br>Documen walt Infection Site: Respirator y
Durat ion of Therapy: 7 days levalbutero No .63mg 0.63 mg, Univers l (XOPENEX) 02-08 Inhalation i ty of nebulizer 17:30: 19:54 , Q4H, [place] solution 00 :05 First dose Medic al 0.63 mg on Mon Branch 02/08/23 at 1230, Until Discontinu ed, Routine ipratropium No .5mg 0.5 mg, Un godfrey (ATROVENT) 02-08 Inhalation it y of 0.02 % 17:30: 21:34 , Q4H, [place] nebulizer 00 :40 First dose Medi dk solution on Mon Branch 0.5 mg 02/08/23 at 1230, Until Discontinu ed, Routine piperacilli No 3.375g 3.375 g, Univers n-tazobacta 4-05 04-05 IV ity of m (ZOSYN) 17:15: 18:31 Piggyback, [place] 3.375 g in 00 :00 ONCE, 1 Medica l NaCl 0.9% dose, On Branch (NS) 100 mL Mon02/08/23 MINI-BAG at 1215, Administer over 30 Minutes, 100 mL
R kathleen for Anti-Infec tive: Documented Infection< br>Documen walt Infection Site: Respirator y
Du ration of Therapy: 7 days furosemide 2022- No 80mg 80 mg, IV U nivers (LASIX) 02-08- Push, ity of injection 15:15: 15:26 ONCE, 1 [place] 80 mg 00 :00 dose, On Mon02/08/23 Branch at 1015, ROSELYN allopurinoL Yes [id number] 200mg Take 2 [facility] 100 mg 4-03 9103 tablets by ity of tablet 00:00: mouth in [place] the Medical morning. Branch LEVOTHYROXI Yes [id number] TAKE 1 Univers NE 125 mcg 4-03 TABLET BY ity of tablet 00:00: MOUTH ONCE [place] 00 DAILY IN [facility] MORNING LEVOTHYROXI Yes [id number] TAKE 1 [facility] [place] 125 mcg 4-03 TABLET BY ity of tablet 00:00: MOUTH ONCE [place] 00 DAILY IN [facility] MORNING LEVOTHYROXI Yes [id number] TAKE 1 [facility] [place] 125 mcg 4-03 TABLET BY ity of tablet 00:00: MOUTH ONCE [place] 00 DAILY IN [facility] MORNING allopurinoL Yes [id number] 200mg Take 2 Univers 100 mg 4-03 9103 tablets by ity of tablet 00:00: mouth in [place] 00 the Medical morning. Branch gabapentin Yes [id number] TAKE 1 & Univers 600 mg 4-03 1/2 (ONE & ity of tablet 00:00: ONE-HALF) [place] 00 TABLETS BY Medical MOUTH Branch THREE TIMES DAILY LEVOTHYROXI Yes [id number] TAKE 1 [facility] NE 125 mcg 4-03 TABLET BY ity of tablet 00:00: MOUTH ONCE [place] 00 DAILY IN [facility] MORNING allopurinoL Yes [id number] 200mg Take 2 [facility] 100 mg 4-03 9103 tablets by ity of tablet 00:00: mouth in [place] the Medical morning. Branch gabapentin 2022-0 Yes [id number] TAKE 1 & Univers 600 mg 4-03 1/2 (ONE & ity of tablet 00:00: ONE-HALF) [place] 00 TABLETS BY Medical MOUTH Branch THREE TIMES DAILY LEVOTHYROXI 2022-0 Yes [id number] TAKE 1 [facility] NE 125 mcg 4-03 TABLET BY ity of tablet 00:00: MOUTH ONCE [place] 00 DAILY IN [facility] [place] MORNING allopurinoL 2022-0 Yes [id number] 200mg Take 2 Univers 100 mg 4-03 9103 tablets by ity of tablet 00:00: mouth in [place] 00 the Medical morning. Branch gabapentin 2022-0 Yes [id number] TAKE 1 & Univers 600 mg 4-03 1/2 (ONE & ity of tablet 00:00: ONE-HALF) [place] 00 TABLETS BY Medical MOUTH Branch THREE TIMES DAILY LEVOTHYROXI 2022-0 Yes [id number] TAKE 1 [facility] NE 125 mcg 4-03 TABLET BY ity of tablet 00:00: MOUTH ONCE [place] 00 DAILY IN [facility] [place] MORNING allopurinoL 2022-0 Yes [id number] 200mg Take 2 Univers 100 mg 4-03 9103 tablets by ity of tablet 00:00: mouth in [place] the Medical morning. Branch gabapentin 2022-0 Yes [id number] TAKE 1 & Univers 600 mg 4-03 1/2 (ONE & ity of tablet 00:00: ONE-HALF) [place] 00 TABLETS BY Medical MOUTH Branch THREE TIMES DAILY LEVOTHYROXI 2022-0 Yes [id number] TAKE 1 [facility] NE 125 mcg 4-03 TABLET BY ity of tablet 00:00: MOUTH ONCE [place] 00 DAILY IN [facility] [place] MORNING allopurinoL 2022-0 Yes [id number] 200mg Take 2 [facility] 100 mg 4-03 9103 tablets by ity of tablet 00:00: mouth in [place] 00 the Medical morning. Branch gabapentin 2022-0 Yes [id number] TAKE 1 & Univers 600 mg 4-03 1/2 (ONE & ity of tablet 00:00: ONE-HALF) [place] 00 TABLETS BY Medical MOUTH Branch THREE TIMES DAILY LEVOTHYROXI 2022-0 Yes [id number] TAKE 1 [facility] NE 125 mcg 4-03 TABLET BY ity of tablet 00:00: MOUTH ONCE [place] 00 DAILY IN [facility] [place] MORNING allopurinoL 2022-0 Yes [id number] 200mg Take 2 Univers 100 mg 4-03 9103 tablets by ity of tablet 00:00: mouth in [place] 00 the Medical morning. Branch gabapentin 2022-0 Yes [id number] TAKE 1 & Univers 600 mg 4-03 1/2 (ONE & ity of tablet 00:00: ONE-HALF) [place] 00 TABLETS BY Medical MOUTH Branch THREE TIMES DAILY LEVOTHYROXI 2022-0 Yes [id number] TAKE 1 [facility] NE 125 mcg 4-03 TABLET BY ity of tablet 00:00: MOUTH ONCE [place] 00 DAILY IN [facility] [place] MORNING allopurinoL 2022-0 Yes [id number] 200mg Take 2 [facility] 100 mg 4-03 9103 tablets by ity of tablet 00:00: mouth in [place] 00 the Medical morning. Branch gabapentin 2022-0 Yes [id number] TAKE 1 & Univers 600 mg 4-03 1/2 (ONE & ity of tablet 00:00: ONE-HALF) [place] 00 TABLETS BY Medical MOUTH [place] THREE TIMES DAILY LEVOTHYROXI 2022-0 Yes [id number] TAKE 1 [facility] NE 125 mcg 4-03 TABLET BY ity of tablet 00:00: MOUTH ONCE [place] 00 DAILY IN [facility] [place] MORNING allopurinoL 2022-0 Yes [id number] 200mg Take 2 [facility] 100 mg 4-03 9103 tablets by ity of tablet 00:00: mouth in [place] 00 the Medical morning. Branch gabapentin 2022-0 Yes [id number] TAKE 1 & Univers 600 mg 4-03 1/2 (ONE & ity of tablet 00:00: ONE-HALF) [place] 00 TABLETS BY Medical MOUTH [place] THREE TIMES DAILY LEVOTHYROXI 2022-0 Yes [id number] TAKE 1 [facility] NE 125 mcg 4-03 TABLET BY ity of tablet 00:00: MOUTH ONCE [place] 00 DAILY IN [facility] [place] MORNING allopurinoL 2022-0 Yes [id number] 200mg Take 2 [facility] 100 mg 4-03 9103 tablets by ity of tablet 00:00: mouth in [place] 00 the Medical morning. Branch gabapentin 2022-0 Yes [id number] TAKE 1 & Univers 600 mg 4-03 1/2 (ONE & ity of tablet 00:00: ONE-HALF) [place] 00 TABLETS BY Medical MOUTH [place] THREE TIMES DAILY LEVOTHYROXI 2022-0 Yes [id number] TAKE 1 [facility] NE 125 mcg 4-03 TABLET BY ity of tablet 00:00: MOUTH ONCE [place] 00 DAILY IN [facility] [place] MORNING allopurinoL 2022-0 Yes [id number] 200mg Take 2 Univers 100 mg 4-03 9103 tablets by ity of tablet 00:00: mouth in [place] 00 the Medical morning. Branch gabapentin 2022-0 Yes [id number] TAKE 1 & Univers 600 mg 4-03 1/2 (ONE & ity of tablet 00:00: ONE-HALF) [place] 00 TABLETS BY Medical MOUTH [place] THREE TIMES DAILY LEVOTHYROXI 2022-0 Yes [id number] TAKE 1 [facility] NE 125 mcg 4-03 TABLET BY ity of tablet 00:00: MOUTH ONCE [place] 00 DAILY IN [facility] [place] MORNING allopurinoL 2022-0 Yes [id number] 200mg Take 2 Univers 100 mg 4-03 9103 tablets by ity of tablet 00:00: mouth in [place] 00 the Medical morning. Branch gabapentin 2022-0 Yes [id number] TAKE 1 & Univers 600 mg 4-03 1/2 (ONE & ity of tablet 00:00: ONE-HALF) [place] 00 TABLETS BY Medical MOUTH [place] THREE TIMES DAILY LEVOTHYROXI 2022-0 Yes [id number] TAKE 1 [facility] NE 125 mcg 4-03 TABLET BY ity of tablet 00:00: MOUTH ONCE [place] 00 DAILY IN [facility] [place] MORNING allopurinoL 2022-0 Yes [id number] 200mg Take 2 Univers 100 mg 4-03 9103 tablets by ity of tablet 00:00: mouth in [place] 00 the Medical morning. Branch gabapentin 2022-0 Yes [id number] TAKE 1 & Univers 600 mg 4-03 1/2 (ONE & ity of tablet 00:00: ONE-HALF) [place] 00 TABLETS BY Medical MOUTH [place] THREE TIMES DAILY LEVOTHYROXI 2022-0 Yes [id number] TAKE 1 [facility] NE 125 mcg 4-03 TABLET BY ity of tablet 00:00: MOUTH ONCE [place] 00 DAILY IN [facility] [place] MORNING allopurinoL 2022-0 Yes [id number] 200mg Take 2 Univers 100 mg 4-03 9103 tablets by ity of tablet 00:00: mouth in [place] 00 the Medical morning. Branch gabapentin 2022-0 Yes [id number] TAKE 1 & Univers 600 mg 4-03 1/2 (ONE & ity of tablet 00:00: ONE-HALF) [place] 00 TABLETS BY Medical MOUTH Branch THREE TIMES DAILY cranberry Yes 1{tbl} Take 1 Univ ers conc-C-baci 4-02 tablet by ity of llus coag 17:36: mouth [place] 250-30-50 37 daily. Medical mg-mg-marilyn Branch on Tab cranberry Yes 1{tbl} Take 1 Univ ers conc-C-baci 4-02 tablet by ity of llus coag 17:36: mouth [place] 250-30-50 37 daily. Medical mg-mg-marilyn Branch on Tab cranberry Yes 1{tbl} Take 1 Univ ers conc-C-baci 4-02 tablet by ity of llus coag 17:36: mouth [place] 250-30-50 37 daily. Medical mg-mg-marilyn Branch on Tab cranberry Yes 1{tbl} Take 1 Univ ers conc-C-baci 4-02 tablet by ity of llus coag 17:36: mouth [place] 250-30-50 37 daily. Medical mg-mg-marilyn Branch on Tab cranberry Yes 1{tbl} Take 1 Univ ers conc-C-baci 4-02 tablet by ity of llus coag 17:36: mouth [place] 250-30-50 37 daily. Medical mg-mg-marilyn Branch on Tab cranberry Yes 1{tbl} Take 1 Univ ers conc-C-baci 4-02 tablet by ity of llus coag 17:36: mouth [place] 250-30-50 37 daily. Medical mg-mg-marilyn Branch on Tab cranberry Yes 1{tbl} Take 1 Univ ers conc-C-baci 4-02 tablet by ity of llus coag 17:36: mouth [place] 250-30-50 37 daily. Medical mg-mg-marilyn Branch on Tab insulin 8U 8 Units, Unive rs lispro 02-05 Subcutaneo ity of (human) 01:00: 00:43 us, ONCE, Zachary garcia (HumaLOG 00 :00 1 dose, On Medic al U-100) 02/04/23 Branch injection 8 at 2000, Units Routine predniSONE 2022- Yes [id number] Take 4 Univers 10 mg 4-02 04-18 tablets by ity of tablet 00:00: 04:59 mouth [place] 00 :00 daily for Medical 3 days, Branch THEN 2 tablets daily for 4 days, THEN 1 tablet daily for 4 days, THEN 0.5 tablets daily for 4 days. predniSONE 2022- Yes [id number] Take 4 Univers 10 mg 4-02 04-18 tablets by ity of tablet 00:00: 04:59 mouth [place] 00 :00 daily for Medical 3 days, Branch THEN 2 tablets daily for 4 days, THEN 1 tablet daily for 4 days, THEN 0.5 tablets daily for 4 days. predniSONE 2022- Yes [id number] Take 4 Univers 10 mg 4-02 04-18 tablets by ity of tablet 00:00: 04:59 mouth [place] 00 :00 daily for Medical 3 days, Branch THEN 2 tablets daily for 4 days, THEN 1 tablet daily for 4 days, THEN 0.5 tablets daily for 4 days. predniSONE 2022- Yes [id number] Take 4 Univers 10 mg 4-02 04-18 tablets by ity of tablet 00:00: 04:59 mouth [place] 00 :00 daily for Medical 3 days, Branch THEN 2 tablets daily for 4 days, THEN 1 tablet daily for 4 days, THEN 0.5 tablets daily for 4 days. predniSONE 2022- Yes [id number] Take 4 Univers 10 mg 4-02 04-18 tablets by ity of tablet 00:00: 04:59 mouth [place] 00 :00 daily for Medical 3 days, Branch THEN 2 tablets daily for 4 days, THEN 1 tablet daily for 4 days, THEN 0.5 tablets daily for 4 days. predniSONE 2022- Yes [id number] Take 4 Univers 10 mg 4-02 04-18 tablets by ity of tablet 00:00: 04:59 mouth [place] 00 :00 daily for Medical 3 days, Branch THEN 2 tablets daily for 4 days, THEN 1 tablet daily for 4 days, THEN 0.5 tablets daily for 4 days. predniSONE 2022- Yes [id number] Take 4 Univers 10 mg 4-02 04-18 tablets by ity of tablet 00:00: 04:59 mouth [place] 00 :00 daily for Medical 3 days, Branch THEN 2 tablets daily for 4 days, THEN 1 tablet daily for 4 days, THEN 0.5 tablets daily for 4 days. predniSONE 2022- Yes [id number] Take 4 Univers 10 mg 4-02 04-18 tablets by ity of tablet 00:00: 04:59 mouth [place] 00 :00 daily for Medical 3 days, Branch THEN 2 tablets daily for 4 days, THEN 1 tablet daily for 4 days, THEN 0.5 tablets daily for 4 days. predniSONE 2022- Yes [id number] Take 4 Univers 10 mg 4-02 04-18 tablets by ity of tablet 00:00: 04:59 mouth [place] 00 :00 daily for Medical 3 days, Branch THEN 2 tablets daily for 4 days, THEN 1 tablet daily for 4 days, THEN 0.5 tablets daily for 4 days. predniSONE 2022- Yes [id number] Take 4 Univers 10 mg 4-02 04-18 tablets by ity of tablet 00:00: 04:59 mouth [place] 00 :00 daily for Medical 3 days, Branch THEN 2 tablets daily for 4 days, THEN 1 tablet daily for 4 days, THEN 0.5 tablets daily for 4 days. predniSONE 2022- Yes [id number] Take 4 Univers 10 mg 4-02 04-18 tablets by ity of tablet 00:00: 04:59 mouth [place] 00 :00 daily for Medical 3 days, Branch THEN 2 tablets daily for 4 days, THEN 1 tablet daily for 4 days, THEN 0.5 tablets daily for 4 days. predniSONE 2022- No [id number] Take 4 Univers 10 mg 4-02 04-18 tablets by ity of tablet 00:00: 00:00 mouth [place] 00 :00 daily for Medical 3 days, Branch THEN 2 tablets daily for 4 days, THEN 1 tablet daily for 4 days, THEN 0.5 tablets daily for 4 days. cyanocobala 2022- Yes 1000ug 1,000 mcg, Univers min (DODEX) 02-04 Subcutaneo i ty of injection 14:00: 13:59 us, DAILY, [place] 1,000 mcg 00 :00 7 doses, Medica l First dose Branch on Mon02/04/23 at 0900, Last dose on Mon02/10/23 at 0900, Routine bumetanide 0 Yes 1mg 1 mg, Univer s (BUMEX) 02-02 Oral, ity of tablet 1 mg 22:00: QAM+PM, [place] 00 First dose Medical (after last modificati on) on [facility] 02/02/23 at 1700, Until Discontinu ed, Routine spironolact 0 Yes 25mg 25 mg, Univ ers one 02-02 Oral, ity of (ALDACTONE) 14:00: DAILY, [place] tablet 25 First dose Medi dk mg (after Branch last modificati on) on [facility] 02/02/23 at 0900, Until Discontinu ed, Routine azithromyci 2022- No 500mg 500 mg, U nivers n 02-01 Oral, ity of (ZITHROMAX) 17:00: 16:39 ONCE, 1 [place] tablet 500 00 :00 dose, On Medic al mg [facility] 02/01/23 at 1200, ROSELYN
Re ason for Anti-Infec tive: Empiric Therapy for Suspected Infection< br>Empiric Therapy Site: Respirator y
Durat ion of therapy: 5 days omeprazole Yes 40mg 40 mg, Unive rs (PRILOSEC) 01-31 Oral, ity of capsule 40 14:00: DAILY, [place] mg 00 First dose Medical on [facility] 01/31/23 at 0900, Until Discontinu ed aspirin EC Yes 81mg 81 mg, Unive rs tablet 81 01-31 Oral, ity of mg 14:00: DAILY, [place] 00 First dose Medical on [facility] 01/31/23 at 0900, Until Discontinu ed, Routine allopurinoL Yes 200mg 200 mg, Un godfrey (ZYLOPRIM) 01-31 Oral, ity of tablet 200 14:00: DAILY, [place] mg 00 First dose Medical on [facility] 01/31/23 at 0900, Until Discontinu ed, Routine methylPREDN 0 2022- Yes 40mg 40 mg, Uni vers ISolone sod 01-31 04-27 Intravenou i ty of succ 14:00: 13:59 s, DAILY, [place] (SOLU-MEDRO 00 :00 30 doses, Med ical L (PF)) First dose Branch injection on Tu 40 mg 01/31/23 at 0900, Last dose on Mon03/01/23 at 0900, 1 mL spironolact 2022- No 12.5mg 12.5 mg, Univers one 01-31 Oral, ity of (ALDACTONE) 14:00: 19:00 DAILY, [place] tablet 12.5 00 :07 First dose Me dical mg on [facility] 01/31/23 at 0900, Until Discontinu ed, Routine levothyroxi Yes 125ug 125 mcg, U nivers ne 01-31 Oral, ity of (SYNTHROID) 11:00: QAM-0600, [place] tablet 125 00 First dose Med ical mcg on [facility] 01/31/23 at 0600, Until Discontinu ed, Routine insulin 2022- No 10U 10 Units, [facility] ers glargine 01-31 Subcutaneo ity of (LANTUS 02:45: 02:07 us, ONCE, [place] U-100) 00 :00 1 dose, On Medical injection [facility] 10 Units 01/30/23 at 2145, Routine amitriptyli Yes 50mg 50 mg, Univ ers ne (ELAVIL) 01-31 Oral, QHS, it y of tablet 50 02:00: First dose [place] mg 00 on [facility] 01/30/23 at Branch 2100, Until Discontinu ed, Routine terazosin 2022- No 2mg 2 mg, Univer s (HYTRIN) 01-31 0401 Oral, QHS, ity of capsule 2 02:00: 01:25 First dose [place] mg 00 :40 on [facility] 01/30/23 at Branch 2100, Until Discontinu ed, Routine gabapentin 0 Yes 300mg 300 mg, Uni vers (NEURONTIN) 01-31 Oral, TID, it y of capsule 300 01:00: First dose [place] mg 00 on [facility] 01/30/23 at Branch 2000, Until Discontinu ed, Routine budesonide 0 Yes .5mg 0.5 mg, [facility] ers (PULMICORT 01-31 Inhalation ity of RESPULE) 01:00: , BID, [place] nebulizer 00 First dose Medi dk solution on [facility] Branch 0.5 mg 01/30/23 at 2000, Until Discontinu ed, Routine insulin 2022-0 202- No 53U 53 Units, [facility] ers glargine 01-3131 Subcutaneo ity of (LANTUS 01:00: 16:39 us, BID, [place] U-100) 00 :02 First dose Medical injection on [facility] Branch 53 Units 01/30/23 at 2000, Until Discontinu ed Sliding 0 Yes Subcutaneo [facility] ers Scale 01-30 us, TID ity of Insulin - 22:00: MEALS+HS, [place] Lispro 00 First dose Medical (HumaLOG) + on [facility] Branch [facility] 01/30/23 at Testing 1700, Until Discontinu ed, Routine carvediloL Yes 6.25mg 6.25 mg, U nivers (COREG) 01-30 Oral, BID ity of tablet 6.25 22:00: MEALS, [place] mg 00 First dose Medical on [facility] Branch 01/30/23 at 1700, Until Discontinu ed, Routine bumetanide 2022- No .5mg 0.5 mg, Uni vers (BUMEX) 01-30 0330 Oral, ity of tablet 0.5 22:00: 19:21 QAM+PM, [place] mg 00 :12 First dose Medical on [facility] 01/30/23 at 1700, Until Discontinu ed, Routine ipratropium Yes .5mg 0.5 mg, Uni vers (ATROVENT) 01-30 Inhalation ity of 0.02 % 21:00: , Q4H, [place] nebulizer 00 First dose Medi dk solution on [facility] Branch 0.5 mg 01/30/23 at 1600, Until Discontinu ed, Routine levalbutero Yes .63mg 0.63 mg, U nivers l (XOPENEX) 01-30 Inhalation it y of nebulizer 21:00: , Q4H, [place] solution 00 First dose Medic al 0.63 mg on [facility] Branch 01/30/23 at 1600, Until Discontinu ed, Routine glucagon Yes 1mg 1 mg, Univers (GLUCAGEN 01-30 Intramuscu ity of DIAGNOSTIC 19:37: [place], PRN, [place] KIT) 20 Starting Medical injection 1 on Mon Branch mg 01/30/23 at 1437, Until Discontinu ed, ROSELYN, Blood Glucose < or = 70 mg/dL and patient is NPO, unable to swallow or has mental changes. dextrose 50 0 Yes 25mL 25 mL, Univ ers % in water 01-30 Slow IV ity of (D50W) 19:37: Push, PRN, [place] injection 20 Starting Medica l 25 mL on Mon Branch 01/30/23 at 1437, Until Discontinu ed, ROSELYN, Blood Glucose < or = 70 mg/dL and patient is NPO, unable to swallow or has mental status changes. tiZANidine Yes 4mg 4 mg, Univer s (ZANAFLEX) 01-30 Oral, ity of tablet 4 mg 19:35: Q8HPRN, [place] 48 Starting Medical on Mon Branch 01/30/23 at 1435, Until Discontinu ed, Muscle Spasms heparin Yes 5000U 5,000 Univers (porcine) 3 Units, ity of injection 19:00: Subcutaneo [place] 5,000 Units 00 us, Q8H, [facility] dk First dose Branch on Mon01/30/23 at 1400, Until Discontinu ed, Routine cranberry Yes 1{tbl} Take 1 Univ ers conc-C-baci 3-27 tablet by ity of llus coag 14:37: mouth [place] 250-30-50 01 daily. Medical mg-mg-marilyn Branch on Tab cranberry Yes 1{tbl} Take 1 Univ ers conc-C-baci 3-27 tablet by ity of llus coag 14:37: mouth [place] 250-30-50 01 daily. Medical mg-mg-marilyn Branch on Tab cranberry Yes 1{tbl} Take 1 Univ ers conc-C-baci 3-27 tablet by ity of llus coag 14:37: mouth [place] 250-30-50 01 daily. Medical mg-mg-marilyn Branch on Tab cranberry Yes 1{tbl} Take 1 Univ ers conc-C-baci 3-27 tablet by ity of llus coag 12:51: mouth [place] 250-30-50 35 daily. Medical mg-mg-marilyn Branch on Tab spironolact 2022- No [id number] 12.5mg Take 0.5 Univers one 25 mg 3-22 04-28 tablets by ity of tablet 00:00: 00:00 mouth in [place] 00 :00 [facility] for 30 days. spironolact 2022- Yes [id number] 12.5mg Take 0.5 Univers one 25 mg 3-22 04-22 tablets by ity of tablet 00:00: 04:59 mouth in [place] 00 :00 [facility] for 30 days. spironolact 2022- Yes [id number] 12.5mg Take 0.5 Univers one 25 mg 3-22 04-22 tablets by ity of tablet 00:00: 04:59 mouth in [place] 00 :00 [facility] for 30 days. spironolact 2022- Yes [id number] 12.5mg Take 0.5 Univers one 25 mg 3-22 04-22 tablets by ity of tablet 00:00: 04:59 mouth in [place] 00 :00 [facility] for 30 days. spironolact 2022- Yes [id number] 12.5mg Take 0.5 Univers one 25 mg 3-22 04-22 tablets by ity of tablet 00:00: 04:59 mouth in [place] 00 :00 [facility] for 30 days. spironolact 2022- Yes [id number] 12.5mg Take 0.5 Univers one 25 mg 3-22 04-22 tablets by ity of tablet 00:00: 04:59 mouth in [place] 00 :00 [facility] for 30 days. spironolact 2022- Yes [id number] 12.5mg Take 0.5 Univers one 25 mg 3-22 04-22 tablets by ity of tablet 00:00: 04:59 mouth in [place] 00 :00 [facility] for 30 days. spironolact 2022- Yes [id number] 12.5mg Take 0.5 Univers one 25 mg 3-22 04-22 tablets by ity of tablet 00:00: 04:59 mouth in [place] 00 :00 [facility] for 30 days. spironolact 2022- Yes [id number] 12.5mg Take 0.5 Univers one 25 mg 3-22 04-22 tablets by ity of tablet 00:00: 04:59 mouth in [place] 00 :00 [facility] for 30 days. spironolact 2022- Yes [id number] 12.5mg Take 0.5 Univers one 25 mg 3-22 04-22 tablets by ity of tablet 00:00: 04:59 mouth in [place] 00 :00 [facility] for 30 days. spironolact 2022- Yes [id number] 12.5mg Take 0.5 Univers one 25 mg 3-22 04-22 tablets by ity of tablet 00:00: 04:59 mouth in [place] 00 :00 [facility] for 30 days. spironolact 2022- Yes [id number] 12.5mg Take 0.5 Univers one 25 mg 3-22 04-22 tablets by ity of tablet 00:00: 04:59 mouth in [place] 00 :00 [facility] for 30 days. spironolact 2022- Yes [id number] 12.5mg Take 0.5 Univers one 25 mg 3-22 04-22 tablets by ity of tablet 00:00: 04:59 mouth in [place] 00 :00 [facility] for 30 days. spironolact 2022- Yes [id number] 12.5mg Take 0.5 Univers one 25 mg 3-22 04-22 tablets by ity of tablet 00:: 04:59 mouth in [place] 00 :00 [facility] for 30 days. spironolact 0 2022- Yes [id number] 12.5mg Take 0.5 Univers one 25 mg 3-22 04-22 tablets by ity of tablet 00:00: 04:59 mouth in [place] 00 :00 [facility] for 30 days. spironolact 0 2022- Yes [id number] 12.5mg Take 0.5 Univers one 25 mg 3-22 04-22 tablets by ity of tablet 00:00: 04:59 mouth in [place] 00 :00 [facility] for 30 days. spironolact 2022- Yes [id number] 12.5mg Take 0.5 Univers one 25 mg 3-22 04-22 tablets by ity of tablet 00:00: 04:59 mouth in [place] 00 :00 [facility] for 30 days. spironolact 2022- Yes [id number] 12.5mg Take 0.5 Univers one 25 mg 3-22 04-22 tablets by ity of tablet 00:00: 04:59 mouth in [place] 00 :00 [facility] for 30 days. spironolact 2022- Yes [id number] 12.5mg Take 0.5 Univers one 25 mg 3-22 04-22 tablets by ity of tablet 00:00: 04:59 mouth in [place] 00 :00 [facility] for 30 days. spironolact 2022- Yes [id number] 12.5mg Take 0.5 [facility] one 25 mg 3-22 04-22 tablets by ity of tablet 00:00: 04:59 mouth in [place] 00 :00 [facility] for 30 days. spironolact 2022- Yes [id number] 12.5mg Take 0.5 Univers one 25 mg 3-22 04-22 tablets by ity of tablet 00:00: 04:59 mouth in [place] 00 :00 [facility] for 30 days. spironolact 2022- Yes [id number] 12.5mg Take 0.5 Univers one 25 mg 3-22 04-22 tablets by ity of tablet 00:00: 04:59 mouth in [place] 00 :00 [facility] for 30 days. predniSONE 2022- Yes [id number] 40mg Take 2 Univers 20 mg 3-22 03-25 tablets by ity of tablet 00:00: 04:59 mouth in [place] 00 :00 [facility] for 2 days. predniSONE 2022- No [id number] 40mg Take 2 Univers 20 mg 3-22 03-25 tablets by ity of tablet 00:00: 04:59 mouth in [place] 00 :00 [facility] for 2 days. cranberry Yes 1{tbl} Take 1 Univ ers conc-C-baci 3-21 tablet by ity of llus coag 16:33: mouth [place] 250-30-50 11 daily. Medical mg-mg-marilyn Branch on Tab cranberry Yes 1{tbl} Take 1 Univ ers conc-C-baci 3-21 tablet by ity of llus coag 16:33: mouth [place] 250-30-50 11 daily. Medical mg-mg-marilyn Branch on Tab cranberry Yes 1{tbl} Take 1 Univ ers conc-C-baci 3-21 tablet by ity of llus coag 16:33: mouth [place] 250-30-50 11 daily. Medical mg-mg-marilyn Branch on Tab cranberry Yes 1{tbl} Take 1 Univ ers conc-C-baci 3-21 tablet by ity of llus coag 16:33: mouth [place] 250-30-50 11 daily. Medical mg-mg-marilyn Branch on Tab spironolact Yes 12.5mg 12.5 mg, Univers one - Oral, ity of (ALDACTONE) 14:00: [place] 12.5 00 First dose Me dical mg on [facility] 01/24/23 at 0900, Until Discontinu ed, Routine bumetanide Yes .5mg 0.5 mg, Univ ers (BUMEX) - Oral, ity of tablet 0.5 14:00: QAM+PM[place] 00 First dose Medical on [facility] 01/24/23 at 0900, Until Discontinu ed, Routine carvediloL 2022- Yes [id number] 6.25mg Take 1 Univers 6.25 mg -21 - tablet by ity of tablet 00:00: 04:59 mouth in [place] 00 :00 the Medical morning Branch and 1 tablet in the evening. Take with meals. Do all this for 30 days. bumetanide 2022- Yes [id number] .5mg Take 1 [facility] 0.5 mg -21 - tablet by ity of tablet 00:00: 04:59 mouth [place] 00 :00 every Medical morning Branch and evening for 30 days. carvediloL 2022- Yes [id number] 6.25mg Take 1 [facility] 6.25 mg 3-21 04-21 tablet by ity of tablet 00:00: 04:59 mouth in [place] 00 :00 the Medical morning Branch and 1 tablet in the evening. Take with meals. Do all this for 30 days. bumetanide 2022- Yes [id number] .5mg Take 1 [facility] 0.5 mg 3-21 04-21 tablet by ity of tablet 00:00: 04:59 mouth [place] 00 :00 every Medical morning Branch and evening for 30 days. carvediloL 2022- Yes [id number] 6.25mg Take 1 [facility] 6.25 mg 3-21 04-21 tablet by ity of tablet 00:00: 04:59 mouth in [place] 00 :00 the Medical morning Branch and 1 tablet in the evening. Take with meals. Do all this for 30 days. bumetanide 2022- Yes [id number] .5mg Take 1 [facility] 0.5 mg 3-21 04-21 tablet by ity of tablet 00:00: 04:59 mouth [place] 00 :00 every Medical morning Branch and evening for 30 days. carvediloL 2022- Yes [id number] 6.25mg Take 1 [facility] 6.25 mg 3-21 04-21 tablet by ity of tablet 00:00: 04:59 mouth in [place] 00 :00 the Medical morning Branch and 1 tablet in the evening. Take with meals. Do all this for 30 days. bumetanide 2022- Yes [id number] .5mg Take 1 [facility] 0.5 mg 3-21 04-21 tablet by ity of tablet 00:00: 04:59 mouth [place] 00 :00 every Medical morning Branch and evening for 30 days. carvediloL 2022- Yes [id number] 6.25mg Take 1 [facility] 6.25 mg 3-21 04-21 tablet by ity of tablet 00:00: 04:59 mouth in [place] 00 :00 the Medical morning Branch and 1 tablet in the evening. Take with meals. Do all this for 30 days. bumetanide 2022- Yes [id number] .5mg Take 1 [facility] 0.5 mg 3-21 04-21 tablet by ity of tablet 00:00: 04:59 mouth [place] 00 :00 every Medical morning Branch and evening for 30 days. carvediloL 2022- Yes [id number] 6.25mg Take 1 Univers 6.25 mg 3-21 04-21 tablet by ity of tablet 00:00: 04:59 mouth in [place] 00 :00 the Medical morning Branch and 1 tablet in the evening. Take with meals. Do all this for 30 days. bumetanide 2022- Yes [id number] .5mg Take 1 [facility] 0.5 mg 3-21 04-21 tablet by ity of tablet 00:00: 04:59 mouth [place] 00 :00 every Medical morning Branch and evening for 30 days. carvediloL 2022- Yes [id number] 6.25mg Take 1 Univers 6.25 mg 3-21 04-21 tablet by ity of tablet 00:00: 04:59 mouth in [place] 00 :00 the Medical morning Branch and 1 tablet in the evening. Take with meals. Do all this for 30 days. bumetanide 2022- Yes [id number] .5mg Take 1 Univers 0.5 mg 3-21 04-21 tablet by ity of tablet 00:00: 04:59 mouth [place] 00 :00 every Medical morning Branch and evening for 30 days. carvediloL 2022- Yes [id number] 6.25mg Take 1 Univers 6.25 mg 3-21 04-21 tablet by ity of tablet 00:00: 04:59 mouth in [place] 00 :00 the Medical morning Branch and 1 tablet in the evening. Take with meals. Do all this for 30 days. bumetanide 2022- Yes [id number] .5mg Take 1 [facility] 0.5 mg 3-21 04-21 tablet by ity of tablet 00:00: 04:59 mouth [place] 00 :00 every Medical morning Branch and evening for 30 days. carvediloL 2022- Yes [id number] 6.25mg Take 1 Univers 6.25 mg 3-21 04-21 tablet by ity of tablet 00:00: 04:59 mouth in [place] 00 :00 the Medical morning Branch and 1 tablet in the evening. Take with meals. Do all this for 30 days. bumetanide 2022- Yes [id number] .5mg Take 1 Univers 0.5 mg 3-21 04-21 tablet by ity of tablet 00:00: 04:59 mouth [place] 00 :00 every Medical morning Branch and evening for 30 days. carvediloL 2022- Yes [id number] 6.25mg Take 1 Univers 6.25 mg 3-21 04-21 tablet by ity of tablet 00:00: 04:59 mouth in [place] 00 :00 the Medical morning Branch and 1 tablet in the evening. Take with meals. Do all this for 30 days. bumetanide 2022- Yes [id number] .5mg Take 1 Univers 0.5 mg 3-21 04-21 tablet by ity of tablet 00:00: 04:59 mouth [place] 00 :00 every Medical morning Branch and evening for 30 days. carvediloL 2022- Yes [id number] 6.25mg Take 1 Univers 6.25 mg 3-21 04-21 tablet by ity of tablet 00:00: 04:59 mouth in [place] 00 :00 the Medical morning Branch and 1 tablet in the evening. Take with meals. Do all this for 30 days. bumetanide 2022- Yes [id number] .5mg Take 1 Univers 0.5 mg 3-21 04-21 tablet by ity of tablet 00:00: 04:59 mouth [place] 00 :00 every Medical morning Branch and evening for 30 days. carvediloL 2022- Yes [id number] 6.25mg Take 1 Univers 6.25 mg 3-21 04-21 tablet by ity of tablet 00:00: 04:59 mouth in [place] 00 :00 the Medical morning Branch and 1 tablet in the evening. Take with meals. Do all this for 30 days. bumetanide 2022- Yes [id number] .5mg Take 1 Univers 0.5 mg 3-21 04-21 tablet by ity of tablet 00:00: 04:59 mouth [place] 00 :00 every Medical morning Branch and evening for 30 days. carvediloL 2022- Yes [id number] 6.25mg Take 1 Univers 6.25 mg 3-21 04-21 tablet by ity of tablet 00:00: 04:59 mouth in [place] 00 :00 the Medical morning Branch and 1 tablet in the evening. Take with meals. Do all this for 30 days. bumetanide 2022- Yes [id number] .5mg Take 1 Univers 0.5 mg 3-21 04-21 tablet by ity of tablet 00:00: 04:59 mouth [place] 00 :00 every Medical morning Branch and evening for 30 days. carvediloL 2022- Yes [id number] 6.25mg Take 1 Univers 6.25 mg 3-21 04-21 tablet by ity of tablet 00:00: 04:59 mouth in [place] 00 :00 the Medical morning Branch and 1 tablet in the evening. Take with meals. Do all this for 30 days. bumetanide 2022- Yes [id number] .5mg Take 1 Univers 0.5 mg 3-21 04-21 tablet by ity of tablet 00:00: 04:59 mouth [place] 00 :00 every Medical morning Branch and evening for 30 days. carvediloL 2022- Yes [id number] 6.25mg Take 1 Univers 6.25 mg 3-21 04-21 tablet by ity of tablet 00:00: 04:59 mouth in [place] 00 :00 the Medical morning Branch and 1 tablet in the evening. Take with meals. Do all this for 30 days. bumetanide 2022- Yes [id number] .5mg Take 1 Univers 0.5 mg 3-21 04-21 tablet by ity of tablet 00:00: 04:59 mouth [place] 00 :00 every Medical morning Branch and evening for 30 days. carvediloL 2022- Yes [id number] 6.25mg Take 1 Univers 6.25 mg 3-21 04-21 tablet by ity of tablet 00:00: 04:59 mouth in [place] 00 :00 the Medical morning Branch and 1 tablet in the evening. Take with meals. Do all this for 30 days. bumetanide 2022- Yes [id number] .5mg Take 1 Univers 0.5 mg 3-21 04-21 tablet by ity of tablet 00:00: 04:59 mouth [place] 00 :00 every Medical morning Branch and evening for 30 days. carvediloL 2022- Yes [id number] 6.25mg Take 1 Univers 6.25 mg 3-21 04-21 tablet by ity of tablet 00:00: 04:59 mouth in [place] 00 :00 the Medical morning Branch and 1 tablet in the evening. Take with meals. Do all this for 30 days. bumetanide 2022- Yes [id number] .5mg Take 1 Univers 0.5 mg 3-21 -21 tablet by ity of tablet 00:00: 04:59 mouth [place] 00 :00 every Medical morning Branch and evening for 30 days. carvediloL 2022- Yes [id number] 6.25mg Take 1 Univers 6.25 mg 3-21 -21 tablet by ity of tablet 00:00: 04:59 mouth in [place] 00 :00 the Medical morning Branch and 1 tablet in the evening. Take with meals. Do all this for 30 days. bumetanide 2022- Yes [id number] .5mg Take 1 Univers 0.5 mg 3-21 -21 tablet by ity of tablet 00:00: 04:59 mouth [place] 00 :00 every Medical morning Branch and evening for 30 days. carvediloL 2022- Yes [id number] 6.25mg Take 1 Univers 6.25 mg 3-21 -21 tablet by ity of tablet 00:00: 04:59 mouth in [place] 00 :00 the Medical morning Branch and 1 tablet in the evening. Take with meals. Do all this for 30 days. bumetanide 2022- Yes [id number] .5mg Take 1 Univers 0.5 mg 3-21 -21 tablet by ity of tablet 00:00: 04:59 mouth [place] 00 :00 every Medical morning Branch and evening for 30 days. carvediloL 2022- No [id number] 6.25mg Take 1 Univers 6.25 mg 3-21 -18 tablet by ity of tablet 00:00: 00:00 mouth in [place] 00 :00 the Medical morning Branch and 1 tablet in the evening. Take with meals. Do all this for 30 days. bumetanide 2022- No [id number] .5mg Take 1 Univers 0.5 mg 3-21 -18 tablet by ity of tablet 00:00: 00:00 mouth [place] 00 :00 every Medical morning Branch and evening for 30 days. levoFLOXaci 2022- Yes [id number] 750mg Take 1 Univers n 750 mg 3-21 - tablet by ity o f tablet 00:00: 04:59 mouth [place] 00 :00 every 48 [facility] for 4 days. levoFLOXaci 2022- No [id number] 750mg Take 1 Univers n 750 mg 01-24 tablet by ity o f tablet 00:00: 04:59 mouth [place] 00 :00 every 48 [facility] hours for 4 days. sodium Yes 15g 15 g, Univers polystyrene 01-23 Oral, ity of sulfonate 17:15: DAILY, [place] (KAYEXALATE 00 First dose Me dical ) 15 on Mon [place] gram/60 mL 01/23/23 at suspension 1215, 15 g Until Discontinu ed, Routine cloNIDine Yes .2mg 0.2 mg, Unive rs (CATAPRES) 01-23 Oral, ity of tablet 0.2 05:45: TIDPRN, [place] mg 09 Starting Medical on Mon Branch 01/23/23 at 0045, Until Discontinu ed, Routine, SBP > 180 predniSONE 2022- Yes 40mg 40 mg, Univ ers (DELTASONE) 01-22 Oral, ity of tablet 40 20:00: 13:59 DAILY, 4 [place] mg 00 :00 doses, Medical First dose Branch on Mon01/22/23 at 1500, Last dose on Mon01/25/23 at 0900, Routine levalbutero Yes .63mg 0.63 mg, U nivers l (XOPENEX) 01-22 Inhalation it y of nebulizer 19:45: , TID, [place] solution 00 First dose Medic al 0.63 mg (after Branch last modificati on) on [place] 01/22/23 at 1445, Until Discontinu ed gabapentin Yes 600mg 600 mg, Uni vers (NEURONTIN) 01-22 Oral, TID, it y of tablet 600 01:00: First dose [place] mg 00 on [facility] Medical 01/21/23 at Branch 2000, Until Discontinu ed, Routine alum-mag 2022- No 30mL 30 mL, Univer s hydroxide-s 01-22 Oral, ity of imeth 00:45: 01:15 ONCE, 1 [place] (MAALOX 00 :00 dose, On Medical PLUS / Sat Branch MAG-AL 01/21/23 at PLUS) 1945, 200-200-20 Routine mg/5 mL suspension 30 mL carvediloL 0 Yes 6.25mg 6.25 mg, U nivers (COREG) 18 Oral, BID ity of tablet 6.25 22:00: MEALS, [place] mg 00 First dose Medical on [facility] 01/21/23 at 1700, Until Discontinu ed, Routine methylpredn 0 2022- No 80mg 80 mg, Uni vers isolone sod 01-21 03-18 Slow IV ity of succ 21:00: 22:06 [place], [place] (SOLU-MEDRO 00 :00 ONCE, 1 Medic al L) dose, On Branch injection Sat 80 mg 01/21/23 at 1600, Routine omeprazole 0 Yes 20mg 20 mg, Unive rs (PRILOSEC) 18 Oral, ity of capsule 20 14:00: DAILY, [place] mg 00 First dose Medical on [facility] 01/21/23 at 0900, Until Discontinu ed aspirin EC 0 Yes 81mg 81 mg, Unive rs tablet 81 18 Oral, ity of mg 14:00: DAILY, [place] 00 First dose Medical on [facility] 01/21/23 at 0900, Until Discontinu ed, Routine allopurinoL 0 Yes 200mg 200 mg, Un godfrey (ZYLOPRIM) 18 Oral, ity of tablet 200 14:00: DAILY, [place] mg 00 First dose Medical on [facility] 01/21/23 at 0900, Until Discontinu ed, Routine azithromyci 0 2022- No 500mg 500 mg, U nivers n 18 03-20 Oral, ity of (ZITHROMAX) 14:00: 13:12 DAILY, 3 [place] tablet 500 00 :00 doses, Medical mg First dose Branch on [facility] 01/21/23 at 0900, Last dose on Mon01/23/23 at 0900, ROSELYN
Re ason for Anti-Infec tive: Empiric Therapy for Suspected Infection< br>Empiric Therapy Site: Respirator y
Durat ion of therapy: 72 hours bumetanide 2022- No 1mg 1 mg, Slow Univers (BUMEX) 01-21 IV Push, ity of injection 1 14:00: 17:11 QAM+PM, [place] mg 00 :00 First dose Medical on Mon Branch 01/21/23 at 0900, Until Discontinu ed, Routine ceFEPIme 2022- Yes 1000mg 1,000 mg, U nivers (MAXIPIME) 01-21 IV ity of 1,000 mg in 13:45: 13:44 [place], [place] NaCl 0.9% 00 :00 Q12H ABX, Medic al (NS) 100 mL 10 doses, [facility] MINI-BAG First dose on Mon01/21/23 at 0845, Last dose on Mon01/25/23 at 2045, Administer over 4 Hours, 100 mL
Reas on for Anti-Infec tive: Empiric Therapy for Suspected Infection< br>Empiric Therapy Site: Respirator y
Durat ion of therapy: 72 hours heparin Yes 5000U 5,000 Univers (porcine) 18 Units, ity of injection 13:00: Subcutaneo [place] 5,000 Units 00 us, BID, Medi dk First dose Branch on [facility] 01/21/23 at 0800, Until Discontinu ed, Routine levothyroxi Yes 125ug 125 mcg, U nivers ne 18 Oral, ity of (SYNTHROID) 11:00: QAM-0600, [place] tablet 125 00 First dose Med ical mcg on [facility] Branch 01/21/23 at 0600, Until Discontinu ed, Routine tiZANidine Yes 2mg 2 mg, Univer s (ZANAFLEX) 01-21 Oral, ity of tablet 2 mg 04:58: Q8HPRN, [place] 42 Starting Medical on Mon Branch 01/20/23 at 2358, Until Discontinu ed, Muscle Spasms levalbutero 2022- No .63mg 0.63 mg, Univers l (XOPENEX) 01-21 Inhalation i ty of nebulizer 04:57: 19:34 , TIDPRN, [place] solution 05 :48 Starting Medical 0.63 mg on Mon Branch 01/20/23 at 2357, Until 01/22/23 at 1434, Shortness of Breath Sliding Yes Subcutaneo Univ ers Scale 3-18 us, TID ity of Insulin - 02:00: MEALS+HS, [place] Lispro 00 First dose Medical (HumaLOG) + on Mon Branch [facility] 01/20/23 at Testing 2100, Until Discontinu ed, Routine cranberry Yes 1{tbl} Take 1 Univ ers conc-C-baci -17 tablet by ity of llus coag 23:58: mouth [place] 250-30-50 54 daily. Medical mg-mg-marilyn Branch on Tab cranberry Yes 1{tbl} Take 1 Univ ers conc-C-baci 3-17 tablet by ity of llus coag 23:58: mouth [place] 250-30-50 54 daily. Medical mg-mg-marilyn Branch on Tab glucagon Yes 1mg 1 mg, Univers (GLUCAGEN 01-20 Intramuscu ity of DIAGNOSTIC 22:54: [place], PRN, [place] KIT) 10 Starting Medical injection 1 on Mon Branch mg 01/20/23 at 1754, Until Discontinu ed, ROSELYN, Blood Glucose < or = 70 mg/dL and patient is NPO, unable to swallow or has mental changes. dextrose 50 Yes 25mL 25 mL, Univ ers % in water 01-20 Slow IV ity of (D50W) 22:54: Push, PRN, [place] injection 10 Starting Medica l 25 mL on Mon Branch 01/20/23 at 1754, Until Discontinu ed, ROSELYN, Blood Glucose < or = 70 mg/dL and patient is NPO, unable to swallow or has mental status changes. acetaminoph Yes 650mg 650 mg, Un godfrey en 01-20 Oral, ity of (TYLENOL) 21:04: Q6HPRN, [place] tablet 650 04 Starting Medic al mg on Mon Branch 01/20/23 at 1604, Until Discontinu ed, Routine, Pain (scale 1-3) LORazepam 0 202- No [id number] 1mg 1 mg, Un [place] (ATIVAN) 01-06 Oral, ity of tablet 1 mg 16:00: 15:07 ONCE, 1 [place] 00 :00 dose, On Medical 01/06/23 Branch at 1000, Routine LORazepam 2022- No [id number] 1mg 1 mg, Un [place] (ATIVAN) 01-06 Oral, ity of tablet 1 mg 16:00: 15:07 ONCE, 1 [place] 00 :00 dose, On Medical 01/06/23 Branch at 1000, Routine amoxicillin 2022-0 Yes [id number] 1{tbl} Take 1 Univers -clavulanat 2-17 tablet by ity of e 00:00: mouth in [place] (AUGMENTIN) 00 the Medical 875-125 mg morning Branch per tablet and 1 tablet in the evening. amoxicillin Yes [id number] 1{tbl} Take 1 Univers -clavulanat 2-17 tablet by ity of e 00:00: mouth in [place] (AUGMENTIN) 00 the Medical 875-125 mg morning Branch per tablet and 1 tablet in the evening. amoxicillin Yes [id number] 1{tbl} Take 1 Univers -clavulanat 2-17 tablet by ity of e 00:00: mouth in [place] (AUGMENTIN) 00 the Medical 875-125 mg morning Branch per tablet and 1 tablet in the evening. amoxicillin Yes [id number] 1{tbl} Take 1 Univers -clavulanat 2-17 tablet by ity of e 00:00: mouth in [place] (AUGMENTIN) 00 the Medical 875-125 mg morning Branch per tablet and 1 tablet in the evening. amoxicillin 0 Yes [id number] 1{tbl} Take 1 Univers -clavulanat 2-17 tablet by ity of e 00:00: mouth in [place] (AUGMENTIN) 00 the Medical 875-125 mg morning Branch per tablet and 1 tablet in the evening. amoxicillin 0 Yes [id number] 1{tbl} Take 1 Univers -clavulanat 2-17 tablet by ity of e 00:00: mouth in [place] (AUGMENTIN) 00 the Medical 875-125 mg morning Branch per tablet and 1 tablet in the evening. amoxicillin Yes [id number] 1{tbl} Take 1 Univers -clavulanat 2-17 tablet by ity of e 00:00: mouth in [place] (AUGMENTIN) 00 the Medical 875-125 mg morning Branch per tablet and 1 tablet in the evening. amoxicillin 2022-0 Yes [id number] 1{tbl} Take 1 Univers -clavulanat 2-17 tablet by ity of e 00:00: mouth in [place] (AUGMENTIN) 00 the Medical 875-125 mg morning Branch per tablet and 1 tablet in the evening. amoxicillin 2022-0 Yes [id number] 1{tbl} Take 1 Univers -clavulanat 2-17 tablet by ity of e 00:00: mouth in [place] (AUGMENTIN) 00 the Medical 875-125 mg morning Branch per tablet and 1 tablet in the evening. amoxicillin 2022-0 Yes [id number] 1{tbl} Take 1 Univers -clavulanat 2-17 tablet by ity of e 00:00: mouth in [place] (AUGMENTIN) 00 the Medical 875-125 mg morning Branch per tablet and 1 tablet in the evening. amoxicillin 2022-0 Yes [id number] 1{tbl} Take 1 Univers -clavulanat 2-17 tablet by ity of e 00:00: mouth in [place] (AUGMENTIN) 00 the Medical 875-125 mg morning Branch per tablet and 1 tablet in the evening. amoxicillin 2022-0 Yes [id number] 1{tbl} Take 1 Univers -clavulanat 2-17 tablet by ity of e 00:00: mouth in [place] (AUGMENTIN) 00 the Medical 875-125 mg morning Branch per tablet and 1 tablet in the evening. amoxicillin 2022-0 Yes [id number] 1{tbl} Take 1 Univers -clavulanat 2-17 tablet by ity of e 00:00: mouth in [place] (AUGMENTIN) 00 the Medical 875-125 mg morning Branch per tablet and 1 tablet in the evening. amoxicillin 2022-0 Yes [id number] 1{tbl} Take 1 Univers -clavulanat 2-17 tablet by ity of e 00:00: mouth in [place] (AUGMENTIN) 00 the Medical 875-125 mg morning Branch per tablet and 1 tablet in the evening. amoxicillin 2022-0 Yes [id number] 1{tbl} Take 1 Univers -clavulanat 2-17 tablet by ity of e 00:00: mouth in [place] (AUGMENTIN) 00 the Medical 875-125 mg morning Branch per tablet and 1 tablet in the evening. amoxicillin 3-0 Yes [id number] 1{tbl} Take 1 Univers -clavulanat 2-17 tablet by ity of e 00:00: mouth in [place] (AUGMENTIN) 00 the Medical 875-125 mg morning Branch per tablet and 1 tablet in the evening. amoxicillin 2022-0 2023- No [id number] 1{tbl} Take 1 Univers -clavulanat 2-17 03-21 tablet by it y of e 00:00: 00:00 mouth in [place] (AUGMENTIN) 00 :00 the Medical 875-125 mg morning Branch per tablet and 1 tablet in the evening. amoxicillin 2022-0 3- No [id number] 1{tbl} Take 1 Univers -clavulanat 2-17 03-21 tablet by it y of e 00:00: 00:00 mouth in [place] (AUGMENTIN) 00 :00 the Medical 875-125 mg morning Branch per tablet and 1 tablet in the evening. methylPREDN 2023-0 Yes [id number] 84mg Take 21 Univers ISolone 2-16 tablets by ity of (MEDROL, 00:00: mouth [place] FAREED,) 4 mg 00 SEE-INSTRU Med ical tablets CTIONS. Branch follow package directions methylPREDN 2023-0 Yes [id number] 84mg Take 21 Univers ISolone 2-16 tablets by ity of (MEDROL, 00:00: mouth [place] FAREED,) 4 mg 00 SEE-INSTRU Med ical tablets CTIONS. Branch follow package directions methylPREDN 2023-0 Yes [id number] 84mg Take 21 Univers ISolone 2-16 tablets by ity of (MEDROL, 00:00: mouth [place] FAREED,) 4 mg 00 SEE-INSTRU Med ical tablets CTIONS. Branch follow package directions methylPREDN 2023-0 Yes [id number] 84mg Take 21 Univers ISolone 2-16 tablets by ity of (MEDROL, 00:00: mouth [place] FAREED,) 4 mg 00 SEE-INSTRU Med ical tablets CTIONS. Branch follow package directions methylPREDN 2023-0 Yes [id number] 84mg Take 21 Univers ISolone 2-16 tablets by ity of (MEDROL, 00:00: mouth [place] FAREED,) 4 mg 00 SEE-INSTRU Med ical tablets CTIONS. Branch follow package directions methylPREDN 2023-0 Yes [id number] 84mg Take 21 Univers ISolone 2-16 tablets by ity of (MEDROL, 00:00: mouth [place] FAREED,) 4 mg 00 SEE-INSTRU Med ical tablets CTIONS. Branch follow package directions methylPREDN 2023-0 Yes [id number] 84mg Take 21 Univers ISolone 2-16 tablets by ity of (MEDROL, 00:00: mouth [place] FAREED,) 4 mg 00 SEE-INSTRU Med ical tablets CTIONS. Branch follow package directions levoFLOXaci 2023-0 Yes Univer s n 750 mg 2-16 ity of tablet 00:00: Medical Branch methylPREDN 2023-0 Yes [id number] 84mg Take 21 Univers ISolone 2-16 tablets by ity of (MEDROL, 00:00: mouth [place] FAREED,) 4 mg 00 SEE-INSTRU Med ical tablets CTIONS. Branch follow package directions levoFLOXaci 2023-0 Yes Univer s n 750 mg 2-16 ity of tablet 00:00: Medical Branch methylPREDN 2023-0 Yes [id number] 84mg Take 21 Univers ISolone 2-16 tablets by ity of (MEDROL, 00:00: mouth [place] FAREED,) 4 mg 00 SEE-INSTRU Med ical tablets CTIONS. Branch follow package directions levoFLOXaci 2023-0 Yes Univer s n 750 mg 2-16 ity of tablet 00:00: Medical Branch methylPREDN 2023-0 Yes [id number] 84mg Take 21 Univers ISolone 2-16 tablets by ity of (MEDROL, 00:00: mouth [place] FAREED,) 4 mg 00 SEE-INSTRU Med ical tablets CTIONS. Branch follow package directions methylPREDN 2023-0 Yes [id number] 84mg Take 21 Univers ISolone 2-16 tablets by ity of (MEDROL, 00:00: mouth [place] FAREED,) 4 mg 00 SEE-INSTRU Med ical tablets CTIONS. Branch follow package directions methylPREDN 2023-0 Yes [id number] 84mg Take 21 Univers ISolone 2-16 tablets by ity of (MEDROL, 00:00: mouth [place] FAREED,) 4 mg 00 SEE-INSTRU Med ical tablets CTIONS. Branch follow package directions levoFLOXaci 2023-0 Yes Univer s n 750 mg 2-16 ity of tablet 00:00: [place] 00 Medical Branch methylPREDN 2023-0 Yes [id number] 84mg Take 21 Univers ISolone 2-16 tablets by ity of (MEDROL, 00:00: mouth [place] FAREED,) 4 mg 00 SEE-INSTRU Med ical tablets CTIONS. Branch follow package directions levoFLOXaci 2023-0 Yes Univer s n 750 mg 2-16 ity of tablet 00:00: [place] 00 Medical Branch methylPREDN 2023-0 Yes [id number] 84mg Take 21 Univers ISolone 2-16 tablets by ity of (MEDROL, 00:00: mouth [place] FAREED,) 4 mg 00 SEE-INSTRU Med ical tablets CTIONS. Branch follow package directions levoFLOXaci 2023-0 Yes Univer s n 750 mg 2-16 ity of tablet 00:00: [place] 00 Medical Branch methylPREDN 2023-0 Yes [id number] 84mg Take 21 Univers ISolone 2-16 tablets by ity of (MEDROL, 00:00: mouth [place] FAREED,) 4 mg 00 SEE-INSTRU Med ical tablets CTIONS. Branch follow package directions levoFLOXaci 3-0 Yes Univer s n 750 mg 2-16 ity of tablet 00:00: [place] 00 Medical Branch methylPREDN 2023-0 Yes [id number] 84mg Take 21 Univers ISolone 2-16 tablets by ity of (MEDROL, 00:00: mouth [place] FAREED,) 4 mg 00 SEE-INSTRU Med ical tablets CTIONS. Branch follow package directions levoFLOXaci 3-0 Yes Univer s n 750 mg 2-16 ity of tablet 00:00: [place] 00 Medical Branch methylPREDN 2023-0 Yes [id number] 84mg Take 21 Univers ISolone 2-16 tablets by ity of (MEDROL, 00:00: mouth [place] FAREED,) 4 mg 00 SEE-INSTRU Med ical tablets CTIONS. Branch follow package directions levoFLOXaci 2023-0 Yes Univer s n 750 mg 2-16 ity of tablet 00:00: [place] 00 Medical Branch methylPREDN 2023-0 Yes [id number] 84mg Take 21 Univers ISolone 2-16 tablets by ity of (MEDROL, 00:00: mouth [place] FAREED,) 4 mg 00 SEE-INSTRU Med ical tablets CTIONS. Branch follow package directions levoFLOXaci 2022-0 Yes Univer s n 750 mg 2-16 ity of tablet 00:00: [place] 00 Medical Branch methylPREDN 2022-0 3- No [id number] 84mg Take 21 Univers ISolone 2-16 -17 tablets by ity o f (MEDROL, 00:00: 00:00 mouth [place] FAREED,) 4 mg 00 :00 SEE-INSTRU Med ical tablets CTIONS. Branch follow package directions levoFLOXaci 0 202- No Unive rs n 750 mg 2-16 -17 ity of tablet 00:00: 00:00 [place] 00 :00 Medical Branch methylPREDN 3-0 3- No [id number] 84mg Take 21 Univers ISolone 2-16 -17 tablets by ity o f (MEDROL, 00:00: 00:00 mouth [place] FAREED,) 4 mg 00 :00 SEE-INSTRU Med ical tablets CTIONS. Branch follow package directions levoFLOXaci 2022-0 2022- No Unive rs n 750 mg 2-16 -17 ity of tablet 00:00: 00:00 [place] 00 :00 [facility] traMADoL 50 3-0 Yes [facility] mg tablet 2-10 ity of 00:00: [place] 00 [facility] traMADoL 50 3-0 Yes [facility] mg tablet 2-10 ity of 00:00: [place] 00 [facility] traMADoL 50 3-0 Yes [facility] mg tablet 2-10 ity of 00:00: [place] 00 [facility] traMADoL 50 2023-0 Yes [facility] mg tablet 2-10 ity of 00:00: [place] 00 [facility] traMADoL 50 3-0 Yes [facility] mg tablet 2-10 ity of 00:00: [place] 00 [facility] traMADoL 50 3-0 Yes [facility] mg tablet 2-10 ity of 00:00: [place] 00 [facility] traMADoL 50 3-0 Yes [facility] mg tablet 2-10 ity of 00:00: [place] 00 [facility] traMADoL 50 2023-0 Yes [facility] mg tablet 2-10 ity of 00:00: [place] 00 [facility] traMADoL 50 2023-0 Yes [facility] mg tablet 2-10 ity of 00:00: [place] 00 [facility] traMADoL 50 3-0 Yes [facility] mg tablet 2-10 ity of 00:00: [place] 00 [facility] traMADoL 50 3-0 Yes [facility] mg tablet 2-10 ity of 00:00: [place] 00 [facility] traMADoL 50 3-0 Yes [facility] mg tablet 2-10 ity of 00:00: [place] [facility] traMADoL 50 3-0 Yes [facility] mg tablet 2-10 ity of 00:00: [place] 00 [facility] traMADoL 50 3-0 Yes [facility] mg tablet 2-10 ity of 00:00: [place] [address] [facility] traMADoL 50 3-0 Yes [facility] mg tablet 2-10 ity of 00:00: [place] [facility] traMADoL 50 3-0 Yes [facility] mg tablet 2-10 ity of 00:00: [place] [address] [facility] traMADoL 50 3-0 Yes [facility] mg tablet 2-10 ity of 00:00: [place] [address] [facility] traMADoL 50 3-0 Yes [facility] mg tablet 2-10 ity of 00:00: [place] [address] [facility] traMADoL 50 3-0 Yes [facility] mg tablet 2-10 ity of 00:00: [place] [address] [facility] traMADoL 50 3-0 Yes [facility] mg tablet 2-10 ity of 00:00: [place] [address] [facility] traMADoL 50 3-0 Yes [facility] mg tablet 2-10 ity of 00:00: [place] [address] [facility] traMADoL 50 2023-0 Yes [facility] mg tablet 2-10 ity of 00:00: [place] [address] [facility] traMADoL 50 3-0 Yes [facility] mg tablet 2-10 ity of 00:00: [place] [address] [facility] traMADoL 50 2023-0 Yes [facility] mg tablet 2-10 ity of 00:00: [place] 00 [facility] traMADoL 50 2023-0 Yes [facility] mg tablet 2-10 ity of 00:00: [place] 00 [facility] traMADoL 50 2023-0 Yes [facility] mg tablet 2-10 ity of 00:00: [place] [address] [facility] traMADoL 50 2023-0 Yes [facility] mg tablet 2-10 ity of 00:00: [place] [address] [facility] traMADoL 50 2023-0 Yes [facility] mg tablet 2-10 ity of 00:00: [facility] traMADoL 50 3-0 Yes [facility] mg tablet 2-10 ity of 00:00: [facility] traMADoL 50 3-0 Yes [facility] mg tablet 2-10 ity of 00:00: [place] [facility] traMADoL 50 3-0 Yes [facility] mg tablet 2-10 ity of 00:00: [facility] traMADoL 50 3-0 Yes [facility] mg tablet 2-10 ity of 00:00: [place] [facility] traMADoL 50 3-0 Yes [facility] mg tablet 2-10 ity of 00:00: [place] [facility] traMADoL 50 2022-0 Yes [facility] mg tablet 2-10 ity of 00:00: [place] [facility] traMADoL 50 2022-0 Yes [facility] mg tablet 2-10 ity of 00:00: [place] [facility] traMADoL 50 2022-0 Yes [facility] mg tablet 2-10 ity of 00:00: [place] [facility] traMADoL 50 2022-0 Yes [facility] mg tablet 2-10 ity of 00:00: 00 [facility] alpha 2023-0 2023- No 200mg Take 200 [facility] lipoic acid 2-06 02-06 mg by ity of 200 mg 15:05: 00:00 mouth [place] capsule 10 :00 daily. [facility] alpha 2023-0 2023- No 200mg Take 200 [facility] lipoic acid 2-06 02-06 mg by ity of 200 mg 15:05: 00:00 mouth [place] capsule 10 :00 daily. [facility] alpha 2023-0 2023- No 200mg Take 200 [facility] lipoic acid 2-06 02-06 mg by ity of 200 mg 15:05: 00:00 mouth [place] capsule 10 :00 daily. [facility] tiZANidine 2022-0 Yes [id number] 2mg Take 1 U nivers 2 mg 2-06 capsule by ity of capsule 00:00: mouth 3 00 (three) Medical times Branch daily as needed for Muscle Spasms. tiZANidine 2022-0 Yes [id number] 2mg Take 1 [facility]ivers 2 mg 2-06 capsule by [facility]y of capsule 00:00: mouth 3 00 (three) Medical times Branch daily as needed for Muscle Spasms. tiZANidine 2023-0 Yes [id number] 2mg Take 1 [facility]ivers 2 mg 2-06 capsule by it[facility] of capsule 00:00: mouth (three) Medical times Branch daily as needed for Muscle Spasms. tiZANidine 2023-0 Yes [id number] 2mg Take 1 [facility] 2 mg 2-06 capsule by [facility] of capsule 00:00: mouth (three) Medical times Branch daily as needed for Muscle Spasms. tiZANidine 2023-0 Yes [id number] 2mg Take 1 [facility] 2 mg 2-06 capsule by [facility]y of capsule 00:00: mouth (three) Medical times Branch daily as needed for Muscle Spasms. tiZANidine 2023-0 Yes [id number] 2mg Take 1 [facility]ivers 2 mg 2-06 capsule by ity of capsule 00:00: mouth (three) Medical times Branch daily as needed for Muscle Spasms. tiZANidine 2023-0 Yes [id number] 2mg Take 1 [facility]ivers 2 mg 2-06 capsule by ity of capsule 00:00: mouth (three) Medical times Branch daily as needed for Muscle Spasms. tiZANidine 3-0 Yes [id number] 2mg Take 1 [facility]ivers 2 mg 2-06 capsule by it[facility] of capsule 00:00: mouth (three) Medical times Branch daily as needed for Muscle Spasms. tiZANidine 2023-0 Yes [id number] 2mg Take 1 [facility]ivers 2 mg 2-06 capsule by [facility] of capsule 00:00: mouth (three) Medical times Branch daily as needed for Muscle Spasms. tiZANidine 2023-0 Yes [id number] 2mg Take 1 [facility]ivers 2 mg 2-06 capsule by [facility]y of capsule 00:00: mouth (three) Medical times Branch daily as needed for Muscle Spasms. tiZANidine 2023-0 Yes [id number] 2mg Take 1 [facility]ivers 2 mg 2-06 capsule by [facility]y of capsule 00:00: mouth (three) Medical times Branch daily as needed for Muscle Spasms. tiZANidine 2023-0 Yes [id number] 2mg Take 1 [facility] 2 mg 2-06 capsule by [facility]y of capsule 00:00: mouth (three) Medical times Branch daily as needed for Muscle Spasms. tiZANidine 2023-0 Yes [id number] 2mg Take 1 [facility] 2 mg 2-06 capsule by [facility]y of capsule 00:00: mouth (three) Medical times Branch daily as needed for Muscle Spasms. tiZANidine 2023-0 Yes [id number] 2mg Take 1 [facility] 2 mg 2-06 capsule by [facility]y of capsule 00:00: mouth (three) Medical times Branch daily as needed for Muscle Spasms. tiZANidine 2023-0 Yes [id number] 2mg Take 1 [facility] 2 mg 2-06 capsule by ity of capsule 00:00: mouth (three) Medical times Branch daily as needed for Muscle Spasms. tiZANidine 2023-0 Yes [id number] 2mg Take 1 [facility]ivers 2 mg 2-06 capsule by ity of capsule 00:00: mouth (three) Medical times Branch daily as needed for Muscle Spasms. tiZANidine 3-0 Yes [id number] 2mg Take 1 [facility] 2 mg 2-06 capsule by [facility]y of capsule 00:00: mouth (three) Medical times Branch daily as needed for Muscle Spasms. tiZANidine 3-0 Yes [id number] 2mg Take 1 [facility] 2 mg 2-06 capsule by [facility] of capsule 00:00: mouth (three) Medical times Branch daily as needed for Muscle Spasms. tiZANidine 2023-0 Yes [id number] 2mg Take 1 [facility] 2 mg 2-06 capsule by [facility]y of capsule 00:00: mouth (three) Medical times Branch daily as needed for Muscle Spasms. tiZANidine 2023-0 Yes [id number] 2mg Take 1 [facility] 2 mg 2-06 capsule by [facility]y of capsule 00:00: mouth (three) Medical times Branch daily as needed for Muscle Spasms. tiZANidine 2023-0 Yes [id number] 2mg Take 1 [facility] 2 mg 2-06 capsule by [facility]y of capsule 00:00: mouth (three) Medical times Branch daily as needed for Muscle Spasms. tiZANidine 2023-0 Yes [id number] 2mg Take 1 [facility] 2 mg 2-06 capsule by [facility] of capsule 00:00: mouth (three) Medical times Branch daily as needed for Muscle Spasms. tiZANidine 2023-0 Yes [id number] 2mg Take 1 [facility] 2 mg 2-06 capsule by [facility] of capsule 00:00: mouth (three) Medical times Branch daily as needed for Muscle Spasms. tiZANidine 2023-0 Yes [id number] 2mg Take 1 [facility] 2 mg 2-06 capsule by [facility] of capsule 00:00: mouth (three) Medical times Branch daily as needed for Muscle Spasms. tiZANidine 2023-0 Yes [id number] 2mg Take 1 [facility] 2 mg 2-06 capsule by [facility] of capsule 00:00: mouth (three) Medical times Branch daily as needed for Muscle Spasms. tiZANidine 2023-0 Yes [id number] 2mg Take 1 [facility] 2 mg 2-06 capsule by [facility] of capsule 00:00: mouth (three) Medical times Branch daily as needed for Muscle Spasms. tiZANidine 2023-0 Yes [id number] 2mg Take 1 [facility] 2 mg 2-06 capsule by [facility] of capsule 00:00: mouth (three) Medical times Branch daily as needed for Muscle Spasms. tiZANidine 2023-0 Yes [id number] 2mg Take 1 [facility] 2 mg 2-06 capsule by [facility]y of capsule 00:00: mouth (three) Medical times Branch daily as needed for Muscle Spasms. tiZANidine 2023-0 Yes [id number] 2mg Take 1 [facility] 2 mg 2-06 capsule by ity of capsule 00:00: mouth (three) Medical times Branch daily as needed for Muscle Spasms. tiZANidine 2023-0 Yes [id number] 2mg Take 1 [facility] 2 mg 2-06 capsule by ity of capsule 00:00: mouth (three) Medical times Branch daily as needed for Muscle Spasms. tiZANidine 2023-0 Yes [id number] 2mg Take 1 [facility] 2 mg 2-06 capsule by ity of capsule 00:00: mouth (three) Medical times Branch daily as needed for Muscle Spasms. tiZANidine 2023-0 Yes [id number] 2mg Take 1 [facility] 2 mg 2-06 capsule by ity of capsule 00:00: mouth (three) Medical times Branch daily as needed for Muscle Spasms. tiZANidine 2023-0 Yes [id number] 2mg Take 1 [facility] 2 mg 2-06 capsule by [facility] of capsule 00:00: mouth (three) Medical times Branch daily as needed for Muscle Spasms. tiZANidine 2023-0 Yes [id number] 2mg Take 1 [facility] 2 mg 2-06 capsule by ity of capsule 00:00: mouth (three) Medical times Branch daily as needed for Muscle Spasms. tiZANidine 2023-0 Yes [id number] 2mg Take 1 [facility] 2 mg 2-06 capsule by ity of capsule 00:00: mouth (three) Medical times Branch daily as needed for Muscle Spasms. tiZANidine 3-0 Yes [id number] 2mg Take 1 [facility] 2 mg 2-06 capsule by ity of capsule 00:00: mouth (three) Medical times Branch daily as needed for Muscle Spasms. tiZANidine 3-0 Yes [id number] 2mg Take 1 [facility] 2 mg 2-06 capsule by ity of capsule 00:00: mouth (three) Medical times Branch daily as needed for Muscle Spasms. tiZANidine 2023-0 Yes [id number] 2mg Take 1 [facility] 2 mg 2-06 capsule by ity of capsule 00:00: mouth (three) Medical times Branch daily as needed for Muscle Spasms. tiZANidine 2023-0 Yes [id number] 2mg Take 1 [facility] 2 mg 2-06 capsule by ity of capsule 00:00: mouth (three) Medical times Branch daily as needed for Muscle Spasms. tiZANidine 2023-0 Yes [id number] 2mg Take 1 [facility] 2 mg 2-06 capsule by ity of capsule 00:00: mouth (three) Medical times Branch daily as needed for Muscle Spasms. tiZANidine 2023-0 Yes [id number] 2mg Take 1 [facility] 2 mg 2-06 capsule by ity of capsule 00:00: mouth (three) Medical times Branch daily as needed for Muscle Spasms. tiZANidine 2023-0 Yes [id number] 2mg Take 1 [facility] 2 mg 2-06 capsule by ity of capsule 00:00: mouth (three) Medical times Branch daily as needed for Muscle Spasms. tiZANidine 2023-0 Yes [id number] 2mg Take 1 [facility] 2 mg 2-06 capsule by ity of capsule 00:00: mouth (three) Medical times Branch daily as needed for Muscle Spasms. tiZANidine 2023-0 Yes [id number] 2mg Take 1 [facility] 2 mg 2-06 capsule by ity of capsule 00:00: mouth (three) Medical times Branch daily as needed for Muscle Spasms. tiZANidine 2023-0 Yes [id number] 2mg Take 1 [facility] 2 mg 2-06 capsule by ity of capsule 00:00: mouth (three) Medical times Branch daily as needed for Muscle Spasms. tiZANidine 2023-0 Yes [id number] 2mg Take 1 [facility] 2 mg 2-06 capsule by ity of capsule 00:00: mouth (three) Medical times Branch daily as needed for Muscle Spasms. tiZANidine 2023-0 Yes [id number] 2mg Take 1 [facility] 2 mg 2-06 capsule by ity of capsule 00:00: mouth (three) Medical times Branch daily as needed for Muscle Spasms. tiZANidine 2023-0 Yes [id number] 2mg Take 1 [facility] 2 mg 2-06 capsule by ity of capsule 00:00: mouth (three) Medical times Branch daily as needed for Muscle Spasms. tiZANidine 2023-0 Yes [id number] 2mg Take 1 [facility] 2 mg 2-06 capsule by ity of capsule 00:00: mouth (three) Medical times Branch daily as needed for Muscle Spasms. tiZANidine 2023-0 Yes [id number] 2mg Take 1 [facility] 2 mg 2-06 capsule by ity of capsule 00:00: mouth (three) Medical times Branch daily as needed for Muscle Spasms. tiZANidine 3-0 Yes [id number] 2mg Take 1 [facility] 2 mg 2-06 capsule by ity of capsule 00:00: mouth 3 (three) Medical times Branch daily as needed for Muscle Spasms. tiZANidine 3-0 Yes [id number] 2mg Take 1 [facility] 2 mg 2-06 capsule by ity of capsule 00:00: mouth 3 (three) Medical times Branch daily as needed for Muscle Spasms. tiZANidine 3-0 Yes [id number] 2mg Take 1 [facility] 2 mg 2-06 capsule by ity of capsule 00:00: mouth 3 (three) Medical times Branch daily as needed for Muscle Spasms. omeprazole 2022-0 Yes TAKE 1 [facility] 40 mg 1-30 CAPSULE BY it[facility] capsule 00:00: MOUTH ONCE [place] 00 DAILY Medical BEFORE A Branch MEAL sulfamethox 2022-0 Yes TAKE 1 [facility] azole-trime 1-30 TABLET BY ity of thoprim 00:00: MOUTH [place] 800-160 mg 00 THREE Medical per tablet TIMES A Branch WEEK omeprazole 3-0 Yes TAKE 1 [facility] 40 mg 1-30 CAPSULE BY ity of capsule 00:00: MOUTH ONCE [place] 00 DAILY Medical BEFORE A Branch MEAL sulfamethox 3-0 Yes TAKE 1 [facility] azole-trime 1-30 TABLET BY ity of thoprim 00:00: MOUTH [place] 800-160 mg 00 THREE Medical per tablet TIMES A Branch WEEK omeprazole 3-0 Yes TAKE 1 [facility] 40 mg 1-30 CAPSULE BY ity of capsule 00:00: MOUTH ONCE [place] 00 DAILY Medical BEFORE A Branch MEAL sulfamethox 3-0 Yes TAKE 1 [facility] azole-trime 1-30 TABLET BY ity of thoprim 00:00: MOUTH [place] 800-160 mg 00 THREE Medical per tablet TIMES A Branch WEEK omeprazole 3-0 Yes TAKE 1 [facility] 40 mg 1-30 CAPSULE BY ity of capsule 00:00: MOUTH ONCE [place] 00 DAILY Medical BEFORE A Branch MEAL sulfamethox 3-0 Yes TAKE 1 [facility] azole-trime 1-30 TABLET BY ity of thoprim 00:00: MOUTH [place] 800-160 mg 00 THREE Medical per tablet TIMES A Branch WEEK omeprazole 3-0 Yes TAKE 1 [facility] 40 mg 1-30 CAPSULE BY ity of capsule 00:00: MOUTH ONCE [place] 00 DAILY Medical BEFORE A Branch MEAL sulfamethox 2022-0 Yes TAKE 1 [facility] azole-trime 1-30 TABLET BY ity of thoprim 00:00: MOUTH [place] 800-160 mg 00 THREE Medical per tablet TIMES A Branch WEEK omeprazole 2022-0 Yes TAKE 1 [facility] 40 mg 1-30 CAPSULE BY ity of capsule 00:00: MOUTH ONCE [place] 00 DAILY Medical BEFORE A Branch MEAL sulfamethox 2022-0 Yes TAKE 1 [facility] azole-trime 1-30 TABLET BY ity of thoprim 00:00: MOUTH [place] 800-160 mg 00 THREE Medical per tablet TIMES A Branch WEEK omeprazole 2022-0 Yes TAKE 1 [facility] 40 mg 1-30 CAPSULE BY ity of capsule 00:00: MOUTH ONCE [place] 00 DAILY Medical BEFORE A Branch MEAL sulfamethox 2022-0 Yes TAKE 1 [facility] azole-trime 1-30 TABLET BY ity of thoprim 00:00: MOUTH [place] 800-160 mg 00 THREE Medical per tablet TIMES A Branch WEEK omeprazole 2022-0 Yes TAKE 1 [facility] 40 mg 1-30 CAPSULE BY ity of capsule 00:00: MOUTH ONCE [place] 00 DAILY Medical BEFORE A Branch MEAL sulfamethox 2022-0 Yes TAKE 1 [facility] azole-trime 1-30 TABLET BY ity of thoprim 00:00: MOUTH [place] 800-160 mg 00 THREE Medical per tablet TIMES A Branch WEEK omeprazole 3-0 Yes TAKE 1 [facility] 40 mg 1-30 CAPSULE BY ity of capsule 00:00: MOUTH ONCE [place] 00 DAILY Medical BEFORE A Branch MEAL sulfamethox 2022-0 Yes TAKE 1 [facility] azole-trime 1-30 TABLET BY ity of thoprim 00:00: MOUTH [place] 800-160 mg 00 THREE Medical per tablet TIMES A Branch WEEK omeprazole 3-0 Yes TAKE 1 [facility] 40 mg 1-30 CAPSULE BY ity of capsule 00:00: MOUTH ONCE [place] 00 DAILY Medical BEFORE A Branch MEAL sulfamethox 2022-0 Yes TAKE 1 [facility] azole-trime 1-30 TABLET BY ity of thoprim 00:00: MOUTH [place] 800-160 mg 00 THREE Medical per tablet TIMES A Branch WEEK omeprazole 3-0 Yes TAKE 1 [facility] 40 mg 1-30 CAPSULE BY ity of capsule 00:00: MOUTH ONCE [place] 00 DAILY Medical BEFORE A Branch MEAL sulfamethox 2022-0 Yes TAKE 1 [facility] azole-trime 1-30 TABLET BY ity of thoprim 00:00: MOUTH [place] 800-160 mg 00 THREE Medical per tablet TIMES A Branch WEEK omeprazole 3-0 Yes TAKE 1 [facility] 40 mg 1-30 CAPSULE BY ity of capsule 00:00: MOUTH ONCE [place] 00 DAILY Medical BEFORE A Branch MEAL sulfamethox 2022-0 Yes TAKE 1 [facility] azole-trime 1-30 TABLET BY ity of thoprim 00:00: MOUTH [place] 800-160 mg 00 THREE Medical per tablet TIMES A Branch WEEK omeprazole 3-0 Yes TAKE 1 [facility] 40 mg 1-30 CAPSULE BY ity of capsule 00:00: MOUTH ONCE [place] 00 DAILY Medical BEFORE A Branch MEAL sulfamethox 2022-0 Yes TAKE 1 [facility] azole-trime 1-30 TABLET BY ity of thoprim 00:00: MOUTH [place] 800-160 mg 00 THREE Medical per tablet TIMES A Branch WEEK omeprazole 3-0 Yes TAKE 1 [facility] 40 mg 1-30 CAPSULE BY ity of capsule 00:00: MOUTH ONCE [place] 00 DAILY Medical BEFORE A Branch MEAL sulfamethox 2022-0 Yes TAKE 1 [facility] azole-trime 1-30 TABLET BY ity of thoprim 00:00: MOUTH [place] 800-160 mg 00 THREE Medical per tablet TIMES A Branch WEEK omeprazole 3-0 Yes TAKE 1 [facility] 40 mg 1-30 CAPSULE BY ity of capsule 00:00: MOUTH ONCE [place] 00 DAILY Medical BEFORE A Branch MEAL sulfamethox 2022-0 Yes TAKE 1 [facility] azole-trime 1-30 TABLET BY ity of thoprim 00:00: MOUTH [place] 800-160 mg 00 THREE Medical per tablet TIMES A Branch WEEK omeprazole 3-0 Yes TAKE 1 [facility] 40 mg 1-30 CAPSULE BY ity of capsule 00:00: MOUTH ONCE [place] 00 DAILY Medical BEFORE A Branch MEAL sulfamethox 2022-0 Yes TAKE 1 [facility] azole-trime 1-30 TABLET BY ity of thoprim 00:00: MOUTH [place] 800-160 mg 00 THREE Medical per tablet TIMES A Branch WEEK omeprazole 3-0 Yes TAKE 1 [facility] 40 mg 1-30 CAPSULE BY ity of capsule 00:00: MOUTH ONCE [place] 00 DAILY Medical BEFORE A Branch MEAL sulfamethox 2022-0 Yes TAKE 1 [facility] azole-trime 1-30 TABLET BY ity of thoprim 00:00: MOUTH [place] 800-160 mg 00 THREE Medical per tablet TIMES A Branch WEEK omeprazole 3-0 Yes TAKE 1 [facility] 40 mg 1-30 CAPSULE BY ity of capsule 00:00: MOUTH ONCE [place] 00 DAILY Medical BEFORE A Branch MEAL sulfamethox 2022-0 Yes TAKE 1 [facility] azole-trime 1-30 TABLET BY ity of thoprim 00:00: MOUTH [place] 800-160 mg 00 THREE Medical per tablet TIMES A Branch WEEK omeprazole 3-0 Yes TAKE 1 [facility] 40 mg 1-30 CAPSULE BY ity of capsule 00:00: MOUTH ONCE [place] 00 DAILY Medical BEFORE A Branch MEAL sulfamethox 2022-0 Yes TAKE 1 [facility] azole-trime 1-30 TABLET BY ity of thoprim 00:00: MOUTH [place] 800-160 mg 00 THREE Medical per tablet TIMES A Branch WEEK omeprazole 3-0 Yes TAKE 1 [facility] 40 mg 1-30 CAPSULE BY ity of capsule 00:00: MOUTH ONCE [place] 00 DAILY Medical BEFORE A Branch MEAL sulfamethox 3-0 Yes TAKE 1 [facility] azole-trime 1-30 TABLET BY ity of thoprim 00:00: MOUTH [place] 800-160 mg 00 THREE Medical per tablet TIMES A Branch WEEK omeprazole 2023-0 Yes TAKE 1 [facility] 40 mg 1-30 CAPSULE BY ity of capsule 00:00: MOUTH ONCE [place] 00 DAILY Medical BEFORE A Branch MEAL sulfamethox 3-0 Yes TAKE 1 [facility] azole-trime 1-30 TABLET BY ity of thoprim 00:00: MOUTH [place] 800-160 mg 00 THREE Medical per tablet TIMES A Branch WEEK omeprazole 3-0 Yes TAKE 1 [facility] 40 mg 1-30 CAPSULE BY ity of capsule 00:00: MOUTH ONCE [place] 00 DAILY Medical BEFORE A Branch MEAL sulfamethox 2023-0 Yes TAKE 1 [facility] azole-trime 1-30 TABLET BY ity of thoprim 00:00: MOUTH [place] 800-160 mg 00 THREE Medical per tablet TIMES A Branch WEEK omeprazole 2023-0 Yes TAKE 1 [facility] 40 mg 1-30 CAPSULE BY ity of capsule 00:00: MOUTH ONCE [place] 00 DAILY Medical BEFORE A Branch MEAL sulfamethox 3-0 Yes TAKE 1 [facility] azole-trime 1-30 TABLET BY ity of thoprim 00:00: MOUTH [place] 800-160 mg 00 THREE Medical per tablet TIMES A Branch WEEK omeprazole 3-0 Yes TAKE 1 [facility] 40 mg 1-30 CAPSULE BY ity of capsule 00:00: MOUTH ONCE [place] 00 DAILY Medical BEFORE A Branch MEAL sulfamethox 2022-0 Yes TAKE 1 [facility] azole-trime 1-30 TABLET BY ity of thoprim 00:00: MOUTH [place] 800-160 mg 00 THREE Medical per tablet TIMES A Branch WEEK omeprazole 3-0 Yes TAKE 1 [facility] 40 mg 1-30 CAPSULE BY ity of capsule 00:00: MOUTH ONCE [place] 00 DAILY Medical BEFORE A Branch MEAL sulfamethox 3-0 Yes TAKE 1 [facility] azole-trime 1-30 TABLET BY ity of thoprim 00:00: MOUTH [place] 800-160 mg 00 THREE Medical per tablet TIMES A Branch WEEK omeprazole 3-0 Yes TAKE 1 [facility] 40 mg 1-30 CAPSULE BY ity of capsule 00:00: MOUTH ONCE [place] 00 DAILY Medical BEFORE A Branch MEAL sulfamethox 3-0 Yes TAKE 1 [facility] azole-trime 1-30 TABLET BY ity of thoprim 00:00: MOUTH [place] 800-160 mg 00 THREE Medical per tablet TIMES A Branch WEEK omeprazole 2023-0 Yes TAKE 1 [facility] 40 mg 1-30 CAPSULE BY ity of capsule 00:00: MOUTH ONCE [place] 00 DAILY Medical BEFORE A Branch MEAL sulfamethox 2023-0 Yes TAKE 1 [facility] azole-trime 1-30 TABLET BY ity of thoprim 00:00: MOUTH [place] 800-160 mg 00 THREE Medical per tablet TIMES A Branch WEEK omeprazole 2023-0 Yes TAKE 1 [facility] 40 mg 1-30 CAPSULE BY ity of capsule 00:00: MOUTH ONCE [place] 00 DAILY Medical BEFORE A Branch MEAL sulfamethox 2022-0 Yes TAKE 1 [facility] azole-trime 1-30 TABLET BY ity of thoprim 00:00: MOUTH [place] 800-160 mg 00 THREE Medical per tablet TIMES A Branch WEEK omeprazole 2022-0 Yes TAKE 1 [facility] 40 mg 1-30 CAPSULE BY ity [facility] capsule 00:00: MOUTH ONCE [place] 00 DAILY Medical BEFORE A Branch MEAL omeprazole 2022-0 Yes TAKE 1 [facility] 40 mg 1-30 CAPSULE BY ity of capsule 00:00: MOUTH ONCE [place] 00 DAILY Medical BEFORE A Branch MEAL omeprazole 2022-0 Yes TAKE 1 [facility] 40 mg 1-30 CAPSULE BY ity of capsule 00:00: MOUTH ONCE [place] 00 DAILY Medical BEFORE A Branch MEAL omeprazole 2022-0 Yes TAKE 1 [facility] 40 mg 1-30 CAPSULE BY ity of capsule 00:00: MOUTH ONCE [place] 00 DAILY Medical BEFORE A Branch MEAL omeprazole 2022-0 Yes TAKE 1 [facility] 40 mg 1-30 CAPSULE BY ity [facility] capsule 00:00: MOUTH ONCE [place] 00 DAILY Medical BEFORE A Branch MEAL omeprazole 2022-0 Yes TAKE 1 [facility] 40 mg 1-30 CAPSULE BY ity of capsule 00:00: MOUTH ONCE [place] 00 DAILY Medical BEFORE A Branch MEAL omeprazole 2022-0 Yes TAKE 1 [facility] 40 mg 1-30 CAPSULE BY ity of capsule 00:00: MOUTH ONCE [place] 00 DAILY Medical BEFORE A Branch MEAL omeprazole 2022-0 Yes TAKE 1 [facility] 40 mg 1-30 CAPSULE BY ity [facility] capsule 00:00: MOUTH ONCE [place] 00 DAILY Medical BEFORE A Branch MEAL omeprazole 2022-0 Yes TAKE 1 [facility] 40 mg 1-30 CAPSULE BY ity of capsule 00:00: MOUTH ONCE [place] 00 DAILY Medical BEFORE A Branch MEAL omeprazole 2022-0 Yes TAKE 1 [facility] 40 mg 1-30 CAPSULE BY ity [facility] capsule 00:00: MOUTH ONCE [place] 00 DAILY Medical BEFORE A Branch MEAL omeprazole 2022-0 Yes TAKE 1 [facility] 40 mg 1-30 CAPSULE BY ity of capsule 00:00: MOUTH ONCE [place] 00 DAILY Medical BEFORE A Branch MEAL omeprazole 2022-0 Yes TAKE 1 [facility] 40 mg 1-30 CAPSULE BY ity of capsule 00:00: MOUTH ONCE [place] 00 DAILY Medical BEFORE A Branch MEAL omeprazole 2022-0 Yes TAKE 1 [facility] 40 mg 1-30 CAPSULE BY ity of capsule 00:00: MOUTH ONCE [place] 00 DAILY Medical BEFORE A Branch MEAL omeprazole 2022-0 Yes TAKE 1 [facility] 40 mg 1-30 CAPSULE BY ity of capsule 00:00: MOUTH ONCE [place] 00 DAILY Medical BEFORE A Branch MEAL omeprazole 2022-0 Yes TAKE 1 [facility] 40 mg 1-30 CAPSULE BY ity of capsule 00:00: MOUTH ONCE [place] 00 DAILY Medical BEFORE A Branch MEAL omeprazole 2022-0 Yes TAKE 1 [facility] 40 mg 1-30 CAPSULE BY ity of capsule 00:00: MOUTH ONCE [place] 00 DAILY Medical BEFORE A Branch MEAL omeprazole 2022-0 Yes TAKE 1 [facility] 40 mg 1-30 CAPSULE BY ity of capsule 00:00: MOUTH ONCE [place] 00 DAILY Medical BEFORE A Branch MEAL omeprazole 2022-0 Yes TAKE 1 [facility] 40 mg 1-30 CAPSULE BY ity of capsule 00:00: MOUTH ONCE [place] 00 DAILY Medical BEFORE A Branch MEAL omeprazole 2022-0 Yes TAKE 1 [facility] 40 mg 1-30 CAPSULE BY ity of capsule 00:00: MOUTH ONCE [place] 00 DAILY Medical BEFORE A Branch MEAL omeprazole 2022-0 Yes TAKE 1 [facility] 40 mg 1-30 CAPSULE BY ity of capsule 00:00: MOUTH ONCE [place] 00 DAILY Medical BEFORE A Branch MEAL omeprazole 3-0 Yes TAKE 1 [facility] 40 mg 1-30 CAPSULE BY ity of capsule 00:00: MOUTH ONCE [place] 00 DAILY Medical BEFORE A Branch MEAL omeprazole 3-0 Yes TAKE 1 [facility] 40 mg 1-30 CAPSULE BY ity of capsule 00:00: MOUTH ONCE [place] 00 DAILY Medical BEFORE A Branch MEAL omeprazole 2022-0 Yes TAKE 1 [facility] 40 mg 1-30 CAPSULE BY ity of capsule 00:00: MOUTH ONCE [place] 00 DAILY Medical BEFORE A Branch MEAL omeprazole 3-0 Yes TAKE 1 [facility] 40 mg 1-30 CAPSULE BY ity of capsule 00:00: MOUTH ONCE [place] 00 DAILY Medical BEFORE A Branch MEAL omeprazole 2022-0 Yes TAKE 1 [facility] 40 mg 1-30 CAPSULE BY ity of capsule 00:00[place] [facility] BEFORE A Branch MEAL sulfamethox 2022-0 2022- No TAKE 1 [facility] vers azole-trime 12-05- TABLET BY it y of thoprim 00:00: 00:00 MOUTH [place] 800-160 mg 00 :00 THREE Medical per tablet TIMES A Branch WEEK sulfamethox 2022-0 2022- No TAKE 1 [facility] vers azole-trime 12-05- TABLET BY it y of thoprim 00:00: 00:00 MOUTH [place] 800-160 mg 00 :00 THREE Medical per tablet TIMES A Branch WEEK GABAPENTIN 2023-0 Yes [id number] TAKE 1 & [facility] 600 mg 1-19 1/2 (ONE & ity of tablet 00:00: ONE-HALF) [place] 00 TABLETS BY Medical MOUTH Branch THREE TIMES DAILY GABAPENTIN 2023-0 Yes [id number] TAKE 1 & [facility] 600 mg 1-19 1/2 (ONE & ity of tablet 00:00: ONE-HALF) [place] 00 TABLETS BY Medical MOUTH Branch THREE TIMES DAILY GABAPENTIN 2023-0 Yes [id number] TAKE 1 & [facility] 600 mg 1-19 1/2 (ONE & ity of tablet 00:00: ONE-HALF) [place] 00 TABLETS BY Medical MOUTH Branch THREE TIMES DAILY GABAPENTIN 2023-0 Yes [id number] TAKE 1 & [facility] 600 mg 1-19 1/2 (ONE & ity of tablet 00:00: ONE-HALF) [place] 00 TABLETS BY Medical MOUTH Branch THREE TIMES DAILY GABAPENTIN 2023-0 Yes [id number] TAKE 1 & [facility] 600 mg 1-19 1/2 (ONE & ity of tablet 00:00: ONE-HALF) [place] 00 TABLETS BY Medical MOUTH Branch THREE TIMES DAILY GABAPENTIN 2023-0 Yes [id number] TAKE 1 & [facility] 600 mg 1-19 1/2 (ONE & ity of tablet 00:00: ONE-HALF) [place] 00 TABLETS BY Medical MOUTH Branch THREE TIMES DAILY GABAPENTIN 2023-0 Yes [id number] TAKE 1 & [facility] 600 mg 1-19 1/2 (ONE & ity of tablet 00:00: ONE-HALF) [place] 00 TABLETS BY Medical MOUTH Branch THREE TIMES DAILY GABAPENTIN 2023-0 Yes [id number] TAKE 1 & [facility] 600 mg 1-19 1/2 (ONE & ity of tablet 00:00: ONE-HALF) [place] 00 TABLETS BY Medical MOUTH Branch THREE TIMES DAILY GABAPENTIN 2023-0 Yes [id number] TAKE 1 & [facility] 600 mg 1-19 1/2 (ONE & ity of tablet 00:00: ONE-HALF) [place] 00 TABLETS BY Medical MOUTH Branch THREE TIMES DAILY GABAPENTIN 2023-0 Yes [id number] TAKE 1 & [facility] 600 mg 1-19 1/2 (ONE & ity of tablet 00:00: ONE-HALF) [place] 00 TABLETS BY Medical MOUTH Branch THREE TIMES DAILY GABAPENTIN 2023-0 Yes [id number] TAKE 1 & [facility] 600 mg 1-19 1/2 (ONE & ity of tablet 00:00: ONE-HALF) [place] 00 TABLETS BY Medical MOUTH Branch THREE TIMES DAILY GABAPENTIN 2023-0 Yes [id number] TAKE 1 & [facility] 600 mg 1-19 1/2 (ONE & ity of tablet 00:00: ONE-HALF) [place] 00 TABLETS BY Medical MOUTH Branch THREE TIMES DAILY GABAPENTIN 2023-0 Yes [id number] TAKE 1 & [facility] 600 mg 1-19 1/2 (ONE & ity of tablet 00:00: ONE-HALF) [place] 00 TABLETS BY Medical MOUTH Branch THREE TIMES DAILY GABAPENTIN 2023-0 Yes [id number] TAKE 1 & [facility] 600 mg 1-19 1/2 (ONE & ity of tablet 00:00: ONE-HALF) [place] 00 TABLETS BY Medical MOUTH Branch THREE TIMES DAILY GABAPENTIN 2023-0 Yes [id number] TAKE 1 & [facility] 600 mg 1-19 1/2 (ONE & ity of tablet 00:00: ONE-HALF) [place] 00 TABLETS BY Medical MOUTH Branch THREE TIMES DAILY GABAPENTIN 2023-0 Yes [id number] TAKE 1 & [facility] 600 mg 1-19 1/2 (ONE & ity of tablet 00:00: ONE-HALF) [place] 00 TABLETS BY Medical MOUTH Branch THREE TIMES DAILY GABAPENTIN 2023-0 Yes [id number] TAKE 1 & [facility] 600 mg 1-19 1/2 (ONE & ity of tablet 00:00: ONE-HALF) [place] 00 TABLETS BY Medical MOUTH Branch THREE TIMES DAILY GABAPENTIN 2023-0 Yes [id number] TAKE 1 & [facility] 600 mg 1-19 1/2 (ONE & ity of tablet 00:00: ONE-HALF) [place] 00 TABLETS BY Medical MOUTH Branch THREE TIMES DAILY GABAPENTIN 2023-0 Yes [id number] TAKE 1 & [facility] 600 mg 1-19 1/2 (ONE & ity of tablet 00:00: ONE-HALF) [place] 00 TABLETS BY Medical MOUTH Branch THREE TIMES DAILY GABAPENTIN 2023-0 Yes [id number] TAKE 1 & [facility] 600 mg 1-19 1/2 (ONE & ity of tablet 00:00: ONE-HALF) [place] 00 TABLETS BY Medical MOUTH Branch THREE TIMES DAILY GABAPENTIN 2023-0 Yes [id number] TAKE 1 & [facility] 600 mg 1-19 1/2 (ONE & ity of tablet 00:00: ONE-HALF) [place] 00 TABLETS BY Medical MOUTH Branch THREE TIMES DAILY GABAPENTIN 2023-0 Yes [id number] TAKE 1 & [facility] 600 mg 1-19 1/2 (ONE & ity of tablet 00:00: ONE-HALF) [place] 00 TABLETS BY Medical MOUTH Branch THREE TIMES DAILY GABAPENTIN 2023-0 Yes [id number] TAKE 1 & [facility] 600 mg 1-19 1/2 (ONE & ity of tablet 00:00: ONE-HALF) [place] 00 TABLETS BY Medical MOUTH Branch THREE TIMES DAILY GABAPENTIN 2023-0 Yes [id number] TAKE 1 & [facility] 600 mg 1-19 1/2 (ONE & ity of tablet 00:00: ONE-HALF) [place] 00 TABLETS BY Medical MOUTH Branch THREE TIMES DAILY GABAPENTIN 2023-0 Yes [id number] TAKE 1 & [facility] 600 mg 1-19 1/2 (ONE & ity of tablet 00:00: ONE-HALF) [place] 00 TABLETS BY Medical MOUTH Branch THREE TIMES DAILY GABAPENTIN 2023-0 Yes [id number] TAKE 1 & [facility] 600 mg 1-19 1/2 (ONE & ity of tablet 00:00: ONE-HALF) [place] 00 TABLETS BY Medical MOUTH Branch THREE TIMES DAILY GABAPENTIN 2023-0 Yes [id number] TAKE 1 & [facility] 600 mg 1-19 1/2 (ONE & ity of tablet 00:00: ONE-HALF) [place] 00 TABLETS BY Medical MOUTH Branch THREE TIMES DAILY GABAPENTIN 2023-0 Yes [id number] TAKE 1 & [facility] 600 mg 1-19 1/2 (ONE & ity of tablet 00:00: ONE-HALF) [place] 00 TABLETS BY Medical MOUTH Branch THREE TIMES DAILY GABAPENTIN 2023-0 Yes [id number] TAKE 1 & [facility] 600 mg 1-19 1/2 (ONE & ity of tablet 00:00: ONE-HALF) [place] 00 TABLETS BY Medical MOUTH Branch THREE TIMES DAILY GABAPENTIN 2023-0 Yes [id number] TAKE 1 & [facility] 600 mg 1-19 1/2 (ONE & ity of tablet 00:00: ONE-HALF) [place] 00 TABLETS BY Medical MOUTH Branch THREE TIMES DAILY GABAPENTIN 2023-0 Yes [id number] TAKE 1 & [facility] 600 mg 1-19 1/2 (ONE & ity of tablet 00:00: ONE-HALF) [place] 00 TABLETS BY Medical MOUTH Branch THREE TIMES DAILY GABAPENTIN 2023-0 Yes [id number] TAKE 1 & [facility] 600 mg 1-19 1/2 (ONE & ity of tablet 00:00: ONE-HALF) [place] 00 TABLETS BY Medical MOUTH Branch THREE TIMES DAILY GABAPENTIN 2023-0 Yes [id number] TAKE 1 & [facility] 600 mg 1-19 1/2 (ONE & ity of tablet 00:00: ONE-HALF) [place] 00 TABLETS BY Medical MOUTH Branch THREE TIMES DAILY GABAPENTIN 2023-0 Yes [id number] TAKE 1 & [facility] 600 mg 1-19 1/2 (ONE & ity of tablet 00:00: ONE-HALF) [place] 00 TABLETS BY Medical MOUTH Branch THREE TIMES DAILY GABAPENTIN 2023-0 Yes [id number] TAKE 1 & [facility] 600 mg 1-19 1/2 (ONE & ity of tablet 00:00: ONE-HALF) [place] 00 TABLETS BY Medical MOUTH Branch THREE TIMES DAILY GABAPENTIN 2023-0 Yes [id number] TAKE 1 & [facility] 600 mg 1-19 1/2 (ONE & ity of tablet 00:00: ONE-HALF) [place] 00 TABLETS BY Medical MOUTH Branch THREE TIMES DAILY GABAPENTIN 2023-0 Yes [id number] TAKE 1 & [facility] 600 mg 1-19 1/2 (ONE & ity of tablet 00:00: ONE-HALF) [place] 00 TABLETS BY Medical MOUTH Branch THREE TIMES DAILY GABAPENTIN 2023-0 Yes [id number] TAKE 1 & [facility] 600 mg 1-19 1/2 (ONE & ity of tablet 00:00: ONE-HALF) [place] 00 TABLETS BY Medical MOUTH Branch THREE TIMES DAILY GABAPENTIN 2023-0 Yes [id number] TAKE 1 & [facility] 600 mg 1-19 1/2 (ONE & ity of tablet 00:00: ONE-HALF) [place] 00 TABLETS BY Medical MOUTH Branch THREE TIMES DAILY GABAPENTIN 2023-0 Yes [id number] TAKE 1 & [facility] 600 mg 1-19 1/2 (ONE & ity of tablet 00:00: ONE-HALF) [place] 00 TABLETS BY Medical MOUTH Branch THREE TIMES DAILY GABAPENTIN 2023-0 Yes [id number] TAKE 1 & [facility] 600 mg 1-19 1/2 (ONE & ity of tablet 00:00: ONE-HALF) [place] 00 TABLETS BY Medical MOUTH Branch THREE TIMES DAILY GABAPENTIN 2023-0 Yes [id number] TAKE 1 & [facility] 600 mg 1-19 1/2 (ONE & ity of tablet 00:00: ONE-HALF) [place] 00 TABLETS BY Medical MOUTH Branch THREE TIMES DAILY GABAPENTIN 2023-0 Yes [id number] TAKE 1 & [facility] 600 mg 1-19 1/2 (ONE & ity of tablet 00:00: ONE-HALF) [place] 00 TABLETS BY Medical MOUTH Branch THREE TIMES DAILY GABAPENTIN 2023-0 Yes [id number] TAKE 1 & [facility] 600 mg 1-19 1/2 (ONE & ity of tablet 00:00: ONE-HALF) [place] 00 TABLETS BY Medical MOUTH Branch THREE TIMES DAILY GABAPENTIN 2023-0 Yes [id number] TAKE 1 & [facility] 600 mg 1-19 1/2 (ONE & ity of tablet 00:00: ONE-HALF) [place] 00 TABLETS BY Medical MOUTH Branch THREE TIMES DAILY GABAPENTIN 2023-0 Yes [id number] TAKE 1 & [facility] 600 mg 1-19 1/2 (ONE & ity of tablet 00:00: ONE-HALF) [place] 00 TABLETS BY Medical MOUTH Branch THREE TIMES DAILY GABAPENTIN 2023-0 Yes [id number] TAKE 1 & [facility] 600 mg 1-19 1/2 (ONE & ity of tablet 00:00: ONE-HALF) [place] 00 TABLETS BY Medical MOUTH Branch THREE TIMES DAILY GABAPENTIN 2023-0 Yes [id number] TAKE 1 & [facility] 600 mg 1-19 1/2 (ONE & ity of tablet 00:00: ONE-HALF) [place] 00 TABLETS BY Medical MOUTH Branch THREE TIMES DAILY GABAPENTIN 2023-0 Yes [id number] TAKE 1 & [facility] 600 mg 1-19 1/2 (ONE & ity of tablet 00:00: ONE-HALF) [place] 00 TABLETS BY Medical MOUTH Branch THREE TIMES DAILY GABAPENTIN 2023-0 Yes [id number] TAKE 1 & [facility] 600 mg 1-19 1/2 (ONE & ity of tablet 00:00: ONE-HALF) [place] 00 TABLETS BY Medical MOUTH Branch THREE TIMES DAILY GABAPENTIN 2023-0 Yes [id number] TAKE 1 & [facility] 600 mg -19 2 (ONE & ity of tablet 00:00: ONE-HALF) [place] 00 TABLETS BY Medical MOUTH Branch THREE TIMES DAILY GABAPENTIN 3-0 Yes [id number] TAKE 1 & [facility] 600 mg -19 /2 (ONE & ity of tablet 00:00: ONE-HALF) [place] 00 TABLETS BY Medical MOUTH Branch THREE TIMES DAILY GABAPENTIN 3-0 Yes [id number] TAKE 1 & [facility] 600 mg -19 2 (ONE & ity of tablet 00:00: ONE-HALF) [place] 00 TABLETS BY Medical MOUTH Branch THREE TIMES DAILY GABAPENTIN 3-0 2023- No [id number] TAKE 1 & [facility] 600 mg -19 -2 (ONE & ity of tablet 00:00: 00:00 ONE-HALF) [place] 00 :00 TABLETS BY Medical MOUTH Branch THREE TIMES DAILY GABAPENTIN 3-0 2023- No [id number] TAKE 1 & [facility] 600 mg -22 02-2 (ONE & ity of tablet 00:00: 00:00 ONE-HALF) [place] 00 :00 TABLETS BY Medical MOUTH Branch THREE TIMES DAILY bumetanide 2022-0 Yes [id number] Take 2tabs Univers 0.5 mg 1-10 in AM 1tab ity of tablet 00:00: in PM [place] [address] Medical Branch bumetanide 2023-0 Yes [id number] Take 2tabs Univers 0.5 mg 1-10 in AM 1tab ity of tablet 00:00: in PM [place] [address] Medical Branch bumetanide 3-0 Yes [id number] Take 2tabs [facility] 0.5 mg 1-10 in AM 1tab ity of tablet 00:00: in PM [place] [address] Medical Branch bumetanide 3-0 Yes [id number] Take 2tabs [facility] 0.5 mg 1-10 in AM 1tab ity of tablet 00:00: in PM [place] [address] Medical Branch bumetanide 2023-0 Yes [id number] Take 2tabs Univers 0.5 mg 1-10 in AM 1tab ity of tablet 00:00: in PM [place] [address] Medical Branch bumetanide 3-0 Yes [id number] Take 2tabs Univers 0.5 mg 1-10 in AM 1tab ity of tablet 00:00: in [facility] Medical Branch bumetanide 0 Yes [id number] Take 2tabs Univers 0.5 mg 1-10 in AM 1tab ity of tablet 00:00: in [facility] Medical Branch bumetanide 0 Yes [id number] Take 2tabs Univers 0.5 mg 1-10 in AM 1tab ity of tablet 00:00: in [facility] Medical Branch bumetanide 0 Yes [id number] Take 2tabs Univers 0.5 mg 1-10 in AM 1tab ity of tablet 00:00: in [facility] Medical Branch bumetanide 0 Yes [id number] Take 2tabs Univers 0.5 mg 1-10 in AM 1tab ity of tablet 00:00: in [place] [address] Medical Branch bumetanide 0 Yes [id number] Take 2tabs Univers 0.5 mg 1-10 in AM 1tab ity of tablet 00:00: in [place] [address] Medical Branch bumetanide 0 Yes [id number] Take 2tabs Univers 0.5 mg 1-10 in AM 1tab ity of tablet 00:00: in [place] [address] Medical Branch bumetanide 0 Yes [id number] Take 2tabs Univers 0.5 mg 1-10 in AM 1tab ity of tablet 00:00: in [place] [address] Medical Branch bumetanide 0 Yes [id number] Take 2tabs Univers 0.5 mg 1-10 in AM 1tab ity of tablet 00:00: in [place] [address] Medical Branch bumetanide 0 Yes [id number] Take 2tabs [facility] 0.5 mg 1-10 in AM 1tab ity of tablet 00:00: in [place] [address] Medical Branch bumetanide 0 Yes [id number] Take 2tabs Univers 0.5 mg 1-10 in AM 1tab ity of tablet 00:00: in [place] [address] Medical Branch bumetanide 0 Yes [id number] Take 2tabs Univers 0.5 mg 1-10 in AM 1tab ity of tablet 00:00: in [place] [address] Medical Branch bumetanide 0 Yes [id number] Take 2tabs Univers 0.5 mg 1-10 in AM 1tab ity of tablet 00:00: in [facility] Medical Branch bumetanide 0 Yes [id number] Take 2tabs Univers 0.5 mg 1-10 in AM 1tab ity of tablet 00:00: in [facility] Medical Branch bumetanide 0 Yes [id number] Take 2tabs Univers 0.5 mg 1-10 in AM 1tab ity of tablet 00:00: in [facility] Medical Branch bumetanide 0 Yes [id number] Take 2tabs Univers 0.5 mg 1-10 in AM 1tab ity of tablet 00:00: in [place] [address] Medical Branch bumetanide 0 Yes [id number] Take 2tabs Univers 0.5 mg 1-10 in AM 1tab ity of tablet 00:00: in [place] [address] Medical Branch bumetanide 0 Yes [id number] Take 2tabs Univers 0.5 mg 1-10 in AM 1tab ity of tablet 00:00: in [place] [address] Medical Branch bumetanide 0 Yes [id number] Take 2tabs Univers 0.5 mg 1-10 in AM 1tab ity of tablet 00:00: in [place] [address] Medical Branch bumetanide 0 Yes [id number] Take 2tabs Univers 0.5 mg 1-10 in AM 1tab ity of tablet 00:00: in [place] [address] Medical Branch bumetanide 0 Yes [id number] Take 2tabs Univers 0.5 mg 1-10 in AM 1tab ity of tablet 00:00: in [place] [address] Medical Branch bumetanide 0 Yes [id number] Take 2tabs Univers 0.5 mg 1-10 in AM 1tab ity of tablet 00:00: in [place] [address] Medical Branch bumetanide 0 Yes [id number] Take 2tabs Univers 0.5 mg 1-10 in AM 1tab ity of tablet 00:00: in [place] [address] Medical Branch bumetanide 0 Yes [id number] Take 2tabs [facility] 0.5 mg 1-10 in AM 1tab ity of tablet 00:00: in [place] [address] Medical Branch bumetanide 0 Yes [id number] Take 2tabs [facility] 0.5 mg 1-10 in AM 1tab ity of tablet 00:00: in [place] [address] Medical Branch bumetanide 0 Yes [id number] Take 2tabs [facility] 0.5 mg 1-10 in AM 1tab ity of tablet 00:00: in [place] [address] Medical Branch bumetanide 0 Yes [id number] Take 2tabs [facility] 0.5 mg 1-10 in AM 1tab ity of tablet 00:00: in [place] [address] Medical Branch bumetanide 0 Yes [id number] Take 2tabs Univers 0.5 mg 1-10 in AM 1tab ity of tablet 00:00: in [address] Branch bumetanide 0 Yes [id number] Take 2tabs Univers 0.5 mg 1-10 in AM 1tab ity of tablet 00:00: in [place] [address] Medical Branch bumetanide 0 Yes [id number] Take 2tabs Univers 0.5 mg 1-10 in AM 1tab ity of tablet 00:00: in [place] [address] Medical Branch bumetanide 0 Yes [id number] Take 2tabs [facility] 0.5 mg 1-10 in AM 1tab ity of tablet 00:00: in [place] [address] Medical Branch bumetanide 0 Yes [id number] Take 2tabs [facility] 0.5 mg 1-10 in AM 1tab ity of tablet 00:00: in [place] [address] Medical Branch bumetanide 0 Yes [id number] Take 2tabs [facility] 0.5 mg 1-10 in AM 1tab ity of tablet 00:00: in [place] [address] Medical Branch bumetanide 0 Yes [id number] Take 2tabs [facility] 0.5 mg 1-10 in AM 1tab ity of tablet 00:00: in [place] [address] Medical Branch bumetanide 0 Yes [id number] Take 2tabs [facility] 0.5 mg 1-10 in AM 1tab ity of tablet 00:00: in [place] [address] Medical Branch bumetanide 0 Yes [id number] Take 2tabs [facility] 0.5 mg 1-10 in AM 1tab ity of tablet 00:00: in [place] [address] Medical Branch bumetanide 0 Yes [id number] Take 2tabs [facility] 0.5 mg 1-10 in AM 1tab ity of tablet 00:00: in [place] [address] Medical Branch bumetanide 0 Yes [id number] Take 2tabs [facility] 0.5 mg 1-10 in AM 1tab ity of tablet 00:00: in [place] [address] Medical Branch bumetanide 0 Yes [id number] Take 2tabs [facility] 0.5 mg 1-10 in AM 1tab ity of tablet 00:00: in [place] [address] Medical Branch bumetanide 0 Yes [id number] Take 2tabs [facility] 0.5 mg 1-10 in AM 1tab ity of tablet 00:00: in [place] [address] Medical Branch bumetanide 0 Yes [id number] Take 2tabs [facility] 0.5 mg 1-10 in AM 1tab ity of tablet 00:00: in [place] [address] Medical Branch bumetanide 0 Yes [id number] Take 2tabs [facility] 0.5 mg 1-10 in AM 1tab ity of tablet 00:00: in [place] [address] Medical Branch bumetanide 0 Yes [id number] Take 2tabs [facility] 0.5 mg 1-10 in AM 1tab ity of tablet 00:00: in [place] [address] Medical Branch bumetanide 2022-0 2023- No [id number] Take 2tabs Univers 0.5 mg 1-10 -21 in AM 1tab ity of tablet 00:00: 00:00 in [facility] 00 :00 Medical Branch bumetanide 2022-0 2023- No [id number] Take 2tabs Univers 0.5 mg 1-10 -21 in AM 1tab ity of tablet 00:00: 00:00 in [facility] 00 :00 Medical Branch predniSONE 2023-0 Yes [id number] 30mg Take 3 Univers 10 mg 1-06 tablets by ity of tablet 00:00: mouth in [place] 00 the Medical morning. Branch predniSONE 2023-0 Yes [id number] 30mg Take 3 Univers 10 mg 1-06 tablets by ity of tablet 00:00: mouth in [place] 00 the Medical morning. Branch predniSONE 2023-0 Yes [id number] 30mg Take 3 [facility] 10 mg 1-06 tablets by ity of tablet 00:00: mouth in [place] 00 the Medical morning. Branch predniSONE 2023-0 Yes [id number] 30mg Take 3 [facility] 10 mg 1-06 tablets by ity of tablet 00:00: mouth in [place] 00 the Medical morning. Branch predniSONE 2023-0 Yes [id number] 30mg Take 3 [facility] 10 mg 1-06 tablets by ity of tablet 00:00: mouth in [place] 00 the Medical morning. Branch predniSONE 2023-0 Yes [id number] 30mg Take 3 [facility] 10 mg 1-06 tablets by ity of tablet 00:00: mouth in [place] 00 the Medical morning. Branch predniSONE 2023-0 Yes [id number] 30mg Take 3 [facility] 10 mg 1-06 tablets by ity of tablet 00:00: mouth in [place] 00 the Medical morning. Branch predniSONE 2023-0 Yes [id number] 30mg Take 3 [facility] 10 mg 1-06 tablets by ity of tablet 00:00: mouth in [place] 00 the Medical morning. Branch predniSONE 2023-0 Yes [id number] 30mg Take 3 [facility] 10 mg 1-06 tablets by ity of tablet 00:00: mouth in [place] 00 the Medical morning. Branch predniSONE 2023-0 Yes [id number] 30mg Take 3 [facility] 10 mg 1-06 tablets by ity of tablet 00:00: mouth in [place] 00 the Medical morning. Branch predniSONE 2023-0 Yes [id number] 30mg Take 3 [facility] 10 mg 1-06 tablets by ity of tablet 00:00: mouth in [place] 00 the Medical morning. Branch predniSONE 2023-0 Yes [id number] 30mg Take 3 [facility] 10 mg 1-06 tablets by ity of tablet 00:00: mouth in [place] 00 the Medical morning. Branch predniSONE 2023-0 Yes [id number] 30mg Take 3 [facility] 10 mg 1-06 tablets by ity of tablet 00:00: mouth in [place] 00 the Medical morning. Branch predniSONE 2023-0 Yes [id number] 30mg Take 3 [facility] 10 mg 1-06 tablets by ity of tablet 00:00: mouth in [place] 00 the Medical morning. Branch predniSONE 2023-0 Yes [id number] 30mg Take 3 [facility] 10 mg 1-06 tablets by ity of tablet 00:00: mouth in [place] 00 the Medical morning. Branch predniSONE 2023-0 Yes [id number] 30mg Take 3 [facility] 10 mg 1-06 tablets by ity of tablet 00:00: mouth in [place] 00 the Medical morning. Branch predniSONE 2023-0 Yes [id number] 30mg Take 3 [facility] 10 mg 1-06 tablets by ity of tablet 00:00: mouth in [place] 00 the Medical morning. Branch predniSONE 2023-0 Yes [id number] 30mg Take 3 [facility] 10 mg 1-06 tablets by ity of tablet 00:00: mouth in [place] 00 the Medical morning. Branch predniSONE 2023-0 Yes [id number] 30mg Take 3 [facility] 10 mg 1-06 tablets by ity of tablet 00:00: mouth in [place] 00 the Medical morning. Branch predniSONE 2023-0 Yes [id number] 30mg Take 3 [facility] 10 mg 1-06 tablets by ity of tablet 00:00: mouth in [place] 00 the Medical morning. Branch predniSONE 2023-0 Yes [id number] 30mg Take 3 [facility] 10 mg 1-06 tablets by ity of tablet 00:00: mouth in [place] 00 the Medical morning. Branch predniSONE 2023-0 Yes [id number] 30mg Take 3 [facility] 10 mg 1-06 tablets by ity of tablet 00:00: mouth in [place] 00 the Medical morning. Branch predniSONE 2023-0 Yes [id number] 30mg Take 3 [facility] 10 mg 1-06 tablets by ity of tablet 00:00: mouth in [place] 00 the Medical morning. Branch predniSONE 2023-0 Yes [id number] 30mg Take 3 [facility] 10 mg 1-06 tablets by ity of tablet 00:00: mouth in [place] 00 the Medical morning. Branch predniSONE 2023-0 Yes [id number] 30mg Take 3 [facility] 10 mg 1-06 tablets by ity of tablet 00:00: mouth in [place] 00 the Medical morning. Branch predniSONE 2023-0 Yes [id number] 30mg Take 3 [facility] 10 mg 1-06 tablets by ity of tablet 00:00: mouth in [place] 00 the Medical morning. Branch predniSONE 2023-0 Yes [id number] 30mg Take 3 [facility] 10 mg 1-06 tablets by ity of tablet 00:00: mouth in [place] 00 the Medical morning. Branch predniSONE 2023-0 Yes [id number] 30mg Take 3 [facility] 10 mg 1-06 tablets by ity of tablet 00:00: mouth in [place] 00 the Medical morning. Branch predniSONE 2023-0 Yes [id number] 30mg Take 3 [facility] 10 mg 1-06 tablets by ity of tablet 00:00: mouth in [place] 00 the Medical morning. Branch predniSONE 2023-0 Yes [id number] 30mg Take 3 [facility] 10 mg 1-06 tablets by ity of tablet 00:00: mouth in [place] 00 the Medical morning. Branch predniSONE 2023-0 Yes [id number] 30mg Take 3 [facility] 10 mg 1-06 tablets by ity of tablet 00:00: mouth in [place] 00 the Medical morning. Branch predniSONE 2023-0 Yes [id number] 30mg Take 3 [facility] 10 mg 1-06 tablets by ity of tablet 00:00: mouth in [place] 00 the Medical morning. Branch predniSONE 2023-0 Yes [id number] 30mg Take 3 [facility] 10 mg 1-06 tablets by ity of tablet 00:00: mouth in [place] 00 the Medical morning. Branch predniSONE 2023-0 Yes [id number] 30mg Take 3 [facility] 10 mg 1-06 tablets by ity of tablet 00:00: mouth in [place] 00 the Medical morning. Branch predniSONE 2023-0 Yes [id number] 30mg Take 3 [facility] 10 mg 1-06 tablets by ity of tablet 00:00: mouth in [place] 00 the Medical morning. Branch predniSONE 2023-0 Yes [id number] 30mg Take 3 [facility] 10 mg 1-06 tablets by ity of tablet 00:00: mouth in [place] 00 the Medical morning. Branch predniSONE 2023-0 Yes [id number] 30mg Take 3 [facility] 10 mg 1-06 tablets by ity of tablet 00:00: mouth in [place] 00 the Medical morning. Branch predniSONE 2023-0 Yes [id number] 30mg Take 3 [facility] 10 mg 1-06 tablets by ity of tablet 00:00: mouth in [place] 00 the Medical morning. Branch predniSONE 2023-0 Yes [id number] 30mg Take 3 [facility] 10 mg 1-06 tablets by ity of tablet 00:00: mouth in [place] 00 the Medical morning. Branch predniSONE 2023-0 Yes [id number] 30mg Take 3 [facility] 10 mg 1-06 tablets by ity of tablet 00:00: mouth in [place] 00 the Medical morning. Branch predniSONE 2023-0 Yes [id number] 30mg Take 3 [facility] 10 mg 1-06 tablets by ity of tablet 00:00: mouth in [place] 00 the Medical morning. Branch predniSONE 2023-0 Yes [id number] 30mg Take 3 [facility] 10 mg 1-06 tablets by ity of tablet 00:00: mouth in [place] 00 the Medical morning. Branch predniSONE 2023-0 Yes [id number] 30mg Take 3 [facility] 10 mg 1-06 tablets by ity of tablet 00:00: mouth in [place] 00 the Medical morning. Branch predniSONE 2023-0 Yes [id number] 30mg Take 3 [facility] 10 mg 1-06 tablets by ity of tablet 00:00: mouth in [place] 00 the Medical morning. Branch predniSONE 2023-0 Yes [id number] 30mg Take 3 [facility] 10 mg 1-06 tablets by ity of tablet 00:00: mouth in [place] 00 the Medical morning. Branch predniSONE 2023-0 Yes [id number] 30mg Take 3 [facility] 10 mg 1-06 tablets by ity of tablet 00:00: mouth in [place] 00 the Medical morning. Branch predniSONE 2023-0 Yes [id number] 30mg Take 3 [facility] 10 mg 1-06 tablets by ity of tablet 00:00: mouth in [place] 00 the Medical morning. Branch predniSONE 2023-0 Yes [id number] 30mg Take 3 [facility] 10 mg 1-06 tablets by ity of tablet 00:00: mouth in [place] 00 the Medical morning. Branch predniSONE 2023-0 Yes [id number] 30mg Take 3 [facility] 10 mg 1-06 tablets by ity of tablet 00:00: mouth in [place] 00 the Medical morning. Branch predniSONE 2023-0 Yes [id number] 30mg Take 3 [facility] 10 mg 1-06 tablets by ity of tablet 00:00: mouth in [place] 00 the Medical morning. Branch predniSONE 2023-0 Yes [id number] 30mg Take 3 [facility] 10 mg 1-06 tablets by ity of tablet 00:00: mouth in [place] 00 the Medical morning. Branch predniSONE 2023-0 Yes [id number] 30mg Take 3 [facility] 10 mg 1-06 tablets by ity of tablet 00:00: mouth in [place] 00 the Medical morning. Branch predniSONE 2023-0 2023- No [id number] 30mg Take 3 [facility] 10 mg 11-1117 tablets by ity of tablet 00:00: 00:00 mouth in [place] 00 :00 the Medical morning. Branch predniSONE 2022-2022- No [id number] 30mg Take 3 [facility] 10 mg 11-11-17 tablets by ity of tablet 00:00: 00:00 mouth in [place] 00 :00 the Medical morning. Branch amitriptyli Yes TAKE 1 [facility] ers ne 50 mg 1-02 TABLET BY ity of tablet 00:00: MOUTH ONCE [place] 00 DAILY AT Medical NIGHT Branch amitriptyli Yes TAKE 1 [facility] ers ne 50 mg 1-02 TABLET BY ity of tablet 00:00: MOUTH ONCE [place] 00 DAILY AT Medical NIGHT Branch amitriptyli Yes TAKE 1 [facility] ers ne 50 mg 1-02 TABLET BY ity of tablet 00:00: MOUTH ONCE [place] 00 DAILY AT Medical NIGHT Branch amitriptyli Yes TAKE 1 [facility] ers ne 50 mg 1-02 TABLET BY ity of tablet 00:00: MOUTH ONCE [place] 00 DAILY AT [facility] NIGHT Branch amitriptyli Yes TAKE 1 [facility] 50 mg 1-02 TABLET BY [facility] of tablet 00:00: MOUTH ONCE [place] 00 DAILY AT Medical NIGHT Branch amitriptyli Yes TAKE 1 [facility] 50 mg 1-02 TABLET BY [facility] tablet 00:00: MOUTH ONCE [place] 00 DAILY AT Medical NIGHT Branch amitriptyli Yes TAKE 1 [facility] 50 mg 1-02 TABLET BY [facility] of tablet 00:00: MOUTH ONCE [place] 00 DAILY AT Medical NIGHT Branch amitriptyli Yes TAKE 1 [facility] 50 mg 1-02 TABLET BY [facility] of tablet 00:00: MOUTH ONCE [place] 00 DAILY AT Medical NIGHT Branch amitriptyli 2022- Yes TAKE 1 [facility] 50 mg 1-02 TABLET BY [facility] tablet 00:00: MOUTH ONCE [place] 00 DAILY AT Medical NIGHT Branch amitriptyli Yes TAKE 1 [facility] 50 mg 1-02 TABLET BY [facility] of tablet 00:00: MOUTH ONCE [place] 00 DAILY AT Medical NIGHT Branch amitriptyli Yes TAKE 1 [facility] 50 mg 1-02 TABLET BY [facility] of tablet 00:00: MOUTH ONCE [place] 00 DAILY AT [facility] NIGHT Branch amitriptyli Yes TAKE 1 [facility] 50 mg 1-02 TABLET BY ity of tablet 00:00: MOUTH ONCE [place] 00 DAILY AT [facility] NIGHT Branch amitriptyli Yes TAKE 1 [facility] 50 mg 1-02 TABLET BY ity of tablet 00:00: MOUTH ONCE [place] 00 DAILY AT [facility] NIGHT Branch amitriptyli Yes TAKE 1 [facility] 50 mg 1-02 TABLET BY ity of tablet 00:00: MOUTH ONCE [place] 00 DAILY AT [facility] NIGHT Branch amitriptyli Yes TAKE 1 [facility] 50 mg 1-02 TABLET BY ity of tablet 00:00: MOUTH ONCE 00 DAILY AT [facility] amitriptyli Yes TAKE 1 [facility] 50 mg 1-02 TABLET BY ity of tablet 00:00: MOUTH ONCE 00 DAILY AT [facility] amitriptyli Yes TAKE 1 [facility] 50 mg 1-02 TABLET BY ity of tablet 00:00: MOUTH ONCE [place] 00 DAILY AT [facility] amitriptyli Yes TAKE 1 [facility] 50 mg 1-02 TABLET BY ity of tablet 00:00: MOUTH ONCE [place] 00 DAILY AT [facility] amitriptyli Yes TAKE 1 [facility] 50 mg 1-02 TABLET BY ity of tablet 00:00: MOUTH ONCE 00 DAILY AT [facility] Branch amitriptyli Yes TAKE 1 [facility] 50 mg 1-02 TABLET BY ity of tablet 00:00: MOUTH ONCE [place] 00 DAILY AT [facility] NIGHT Branch amitriptyli Yes TAKE 1 [facility] 50 mg 1-02 TABLET BY ity of tablet 00:00: MOUTH ONCE [place] 00 DAILY AT [facility] NIGHT Branch amitriptyli 2022- Yes TAKE 1 [facility] 50 mg 1-02 TABLET BY ity of tablet 00:00: MOUTH ONCE [place] 00 DAILY AT [facility] NIGHT Branch amitriptyli Yes TAKE 1 [facility] 50 mg 1-02 TABLET BY ity of tablet 00:00: MOUTH ONCE [place] 00 DAILY AT [facility] NIGHT Branch amitriptyli Yes TAKE 1 [facility] 50 mg 1-02 TABLET BY ity of tablet 00:00: MOUTH ONCE [place] 00 DAILY AT [facility] NIGHT Branch amitriptyli Yes TAKE 1 [facility] 50 mg 1-02 TABLET BY ity of tablet 00:00: MOUTH ONCE [place] 00 DAILY AT [facility] amitriptyli Yes TAKE 1 [facility] 50 mg 1-02 TABLET BY [facility]y of tablet 00:00: MOUTH ONCE [place] 00 DAILY AT [facility] amitriptyli Yes TAKE 1 [facility] 50 mg 1-02 TABLET BY ity of tablet 00:00: MOUTH ONCE [place] 00 DAILY AT [facility] amitriptyli Yes TAKE 1 [facility] 50 mg 1-02 TABLET BY ity of tablet 00:00: MOUTH ONCE [place] 00 DAILY AT [facility] amitriptyli Yes TAKE 1 [facility] 50 mg 1-02 TABLET BY ity of tablet 00:00: MOUTH ONCE [place] 00 DAILY AT [facility] amitriptyli Yes TAKE 1 [facility] 50 mg 1-02 TABLET BY ity of tablet 00:00: MOUTH ONCE [place] 00 DAILY AT [facility] amitriptyli Yes TAKE 1 [facility] 50 mg 1-02 TABLET BY ity of tablet 00:00: MOUTH ONCE [place] 00 DAILY AT [facility] amitriptyli Yes TAKE 1 [facility] 50 mg 1-02 TABLET BY ity of tablet 00:00: MOUTH ONCE [place] 00 DAILY AT [facility] amitriptyli Yes TAKE 1 [facility] 50 mg 1-02 TABLET BY ity of tablet 00:00: MOUTH ONCE [place] 00 DAILY AT [facility] amitriptyli Yes TAKE 1 [facility] 50 mg 1-02 TABLET BY ity of tablet 00:00: MOUTH ONCE [place] 00 DAILY AT [facility] amitriptyli 2022-0 Yes TAKE 1 [facility] 50 mg 1-02 TABLET BY ity of tablet 00:00: MOUTH ONCE [place] 00 DAILY AT [facility] amitriptyli 0 Yes TAKE 1 [facility] 50 mg 1-02 TABLET BY ity of tablet 00:00: MOUTH ONCE [place] 00 DAILY AT [facility] amitriptyli Yes TAKE 1 [facility] 50 mg 11-07 TABLET BY ity of tablet 00:00: MOUTH ONCE [place] DAILY AT [facility] NIGHT Branch Insulin 2021-11 Yes [id number] INJECT 53 U [facility] [place] 2-23 UNITS ity of ([place] 00:00[place] [facility] USLY TWICE [facility] al U-100 DAILY Branch INSULIN) 100 unit/mL (3 mL) injection Insulin 2021-11 Yes [id number] INJECT 53 U nivers [place] 2-23 UNITS ity of ([place] 00:00: [place] USLY TWICE Medic al U-100 DAILY Branch INSULIN) 100 unit/mL (3 mL) injection Insulin 2021-11 Yes [id number] INJECT 53 [facility] [place] 2-23 UNITS ity of ([place] 00:00: [place] [facility] USLY TWICE Medic al U-100 DAILY Branch INSULIN) 100 unit/mL (3 mL) injection Insulin 2021-11 Yes [id number] INJECT 53 [facility] [place] 2-23 UNITS ity of ([place] 00:00: [place] USLY TWICE Medic al U-100 DAILY Branch INSULIN) 100 unit/mL (3 mL) injection Insulin 2021-11 Yes [id number] INJECT 53 [facility] [place] 2-23 UNITS ity of ([place] 00:00: [place] [facility] 00 USLY TWICE Medic al U-100 DAILY Branch INSULIN) 100 unit/mL (3 mL) injection Insulin 2021-11 Yes [id number] INJECT 53 U n[facility] [place] 2-23 UNITS ity of ([place] 00:00: [place] USLY TWICE Medic al U-100 DAILY Branch INSULIN) 100 unit/mL (3 mL) injection Insulin 2021-11 Yes [id number] INJECT 53 [facility] nivers [place] 2-23 UNITS ity of ([place] 00:00: [place] 00 USLY TWICE Medic al U-100 DAILY Branch INSULIN) 100 unit/mL (3 mL) injection Insulin 2021-11 Yes [id number] INJECT 53 [facility] n[facility] [place] 2-23 UNITS ity of ([place] 00:00: [place] [facility] USLY TWICE Medic al U-100 DAILY Branch INSULIN) 100 unit/mL (3 mL) injection Insulin 2021-11 Yes [id number] INJECT 53 [facility] nivers [place] 2-23 UNITS ity of ([place] 00:00: [place] [facility] 00 USLY TWICE Medic al U-100 DAILY Branch INSULIN) 100 unit/mL (3 mL) injection Insulin 2021-11 Yes [id number] INJECT 53 [facility] n[facility] [place] 2-23 UNITS ity of ([place] 00:00: [place] [facility] 00 USLY TWICE Medic al U-100 DAILY Branch INSULIN) 100 unit/mL (3 mL) injection Insulin 2021-11 Yes [id number] INJECT 53 [facility] [place] 2-23 UNITS ity of ([place] 00:00: [place] [facility] 00 USLY TWICE Medic al U-100 DAILY Branch INSULIN) 100 unit/mL (3 mL) injection Insulin 2021-11 Yes [id number] INJECT 53 [facility] n[facility] [place] 2-23 UNITS ity of ([place] 00:00: [place] [facility] 00 USLY TWICE Medic al U-100 DAILY Branch INSULIN) 100 unit/mL (3 mL) injection Insulin 2021-11 Yes [id number] INJECT 53 [facility] n[facility] [place] 2-23 UNITS ity of ([place] 00:00: [place] [facility] 00 USLY TWICE Medic al U-100 DAILY Branch INSULIN) 100 unit/mL (3 mL) injection Insulin 2021-11 Yes [id number] INJECT 53 [facility] n[facility] [place] 2-23 UNITS ity of ([place] 00:00: [place] [facility] 00 USLY TWICE Medic al U-100 DAILY Branch INSULIN) 100 unit/mL (3 mL) injection Insulin 2021-11 Yes [id number] INJECT 53 [facility] n[facility] [place] 2-23 UNITS ity of ([place] 00:00: [place] 00 USLY TWICE Medic al U-100 DAILY Branch INSULIN) 100 unit/mL (3 mL) injection Insulin 2021-11 Yes [id number] INJECT 53 [facility] n[facility] [place] 2-23 UNITS ity of ([place] 00:00: [place] [facility] 00 USLY TWICE Medic al U-100 DAILY Branch INSULIN) 100 unit/mL (3 mL) injection Insulin 2021-11 Yes [id number] INJECT 53 [facility] n[facility] [place] 2-23 UNITS ity of ([place] 00:00: [place] 00 USLY TWICE Medic al U-100 DAILY Branch INSULIN) 100 unit/mL (3 mL) injection Insulin 2021-11 Yes [id number] INJECT 53 [facility] n[facility] [place] 2-23 UNITS ity of ([place] 00:00: [place] [facility] 00 USLY TWICE Medic al U-100 DAILY Branch INSULIN) 100 unit/mL (3 mL) injection Insulin 2021-11 Yes [id number] INJECT 53 U n[facility] [place] 2-23 UNITS ity of ([place] 00:00: [place] [facility] 00 USLY TWICE Medic al U-100 DAILY Branch INSULIN) 100 unit/mL (3 mL) injection Insulin 2021-11 Yes [id number] INJECT 53 U n[facility] [place] 2-23 UNITS ity of ([place] 00:00: [place] [facility] 00 USLY TWICE Medic al U-100 DAILY Branch INSULIN) 100 unit/mL (3 mL) injection Insulin 2021-11 Yes [id number] INJECT 53 [facility] n[facility] [place] 2-23 UNITS ity of ([place] 00:00: [place] [facility] 00 USLY TWICE Medic al U-100 DAILY Branch INSULIN) 100 unit/mL (3 mL) injection Insulin 2021-11 Yes [id number] INJECT 53 U n[facility] [place] 2-23 UNITS ity of ([place] 00:00: [place] 00 USLY TWICE Medic al U-100 DAILY Branch INSULIN) 100 unit/mL (3 mL) injection Insulin 2021-11 Yes [id number] INJECT 53 [facility] n[facility] [place] 2-23 UNITS ity of ([place] 00:00: [place] [facility] 00 USLY TWICE Medic al U-100 DAILY Branch INSULIN) 100 unit/mL (3 mL) injection Insulin 2021-11 Yes [id number] INJECT 53 U nivers [place] 2-23 UNITS ity of ([place] 00:00: [place] [facility] 00 USLY TWICE Medic al U-100 DAILY Branch INSULIN) 100 unit/mL (3 mL) injection Insulin 2021-11 Yes [id number] INJECT 53 U nivers [place] 2-23 UNITS ity of ([place] 00:00: [place] [facility] 00 USLY TWICE Medic al U-100 DAILY Branch INSULIN) 100 unit/mL (3 mL) injection Insulin 2021-11 Yes [id number] INJECT 53 U nivers [place] 2-23 UNITS ity of ([place] 00:00: [place] [facility] 00 USLY TWICE Medic al U-100 DAILY Branch INSULIN) 100 unit/mL (3 mL) injection Insulin 2021-11 Yes [id number] INJECT 53 U nivers [place] 2-23 UNITS ity of ([place] 00:00: [place] [facility] 00 USLY TWICE Medic al U-100 DAILY Branch INSULIN) 100 unit/mL (3 mL) injection Insulin 2021-11 Yes [id number] INJECT 53 [facility] n[facility] [place] 2-23 UNITS ity of ([place] 00:00: [place] [facility] 00 USLY TWICE Medic al U-100 DAILY Branch INSULIN) 100 unit/mL (3 mL) injection Insulin 2021-11 Yes [id number] INJECT 53 [facility] n[facility] [place] 2-23 UNITS ity of ([place] 00:00: [place] [facility] 00 USLY TWICE Medic al U-100 DAILY Branch INSULIN) 100 unit/mL (3 mL) injection Insulin 2021-11 Yes [id number] INJECT 53 U nivers [place] 2-23 UNITS ity of ([place] 00:00: [place] [facility] 00 USLY TWICE Medic al U-100 DAILY Branch INSULIN) 100 unit/mL (3 mL) injection Insulin 2021-11 Yes [id number] INJECT 53 U nivers [place] 2-23 UNITS ity of ([place] 00:00: [place] [facility] 00 USLY TWICE Medic al U-100 DAILY Branch INSULIN) 100 unit/mL (3 mL) injection Insulin 2021-11 Yes [id number] INJECT 53 U n[facility] [place] 2-23 UNITS ity of ([place] 00:00: [place] [facility] 00 USLY TWICE Medic al U-100 DAILY Branch INSULIN) 100 unit/mL (3 mL) injection Insulin 2021-11 Yes [id number] INJECT 53 [facility] n[facility] [place] 2-23 UNITS ity of ([place] 00:00: [place] [facility] 00 USLY TWICE Medic al U-100 DAILY Branch INSULIN) 100 unit/mL (3 mL) injection Insulin 2021-11 Yes [id number] INJECT 53 U n[facility] [place] 2-23 UNITS ity of ([place] 00:00: [place] [facility] 00 USLY TWICE Medic al U-100 DAILY Branch INSULIN) 100 unit/mL (3 mL) injection Insulin 2021-11 Yes [id number] INJECT 53 U nivers [place] 2-23 UNITS ity of ([place] 00:00: [place] [facility] 00 USLY TWICE Medic al U-100 DAILY Branch INSULIN) 100 unit/mL (3 mL) injection Insulin 2021-11 Yes [id number] INJECT 53 U n[facility] [place] 2-23 UNITS ity of ([place] 00:00: [place] [facility] 00 USLY TWICE Medic al U-100 DAILY Branch INSULIN) 100 unit/mL (3 mL) injection Insulin 2021-11 Yes [id number] INJECT 53 U n[facility] [place] 2-23 UNITS ity of ([place] 00:00: [place] [facility] 00 USLY TWICE Medic al U-100 DAILY Branch INSULIN) 100 unit/mL (3 mL) injection Insulin 2021-11 Yes [id number] INJECT 53 U n[facility] [place] 2-23 UNITS ity of ([place] 00:00: [place] [facility] 00 USLY TWICE Medic al U-100 DAILY Branch INSULIN) 100 unit/mL (3 mL) injection Insulin 2021-11 Yes [id number] INJECT 53 U nivers [place] 2-23 UNITS ity of ([place] 00:00: [place] [facility] 00 USLY TWICE Medic al U-100 DAILY Branch INSULIN) 100 unit/mL (3 mL) injection Insulin 2021-11 Yes [id number] INJECT 53 U nivers [place] 2-23 UNITS ity of ([place] 00:00: [place] [facility] 00 USLY TWICE Medic al U-100 DAILY Branch INSULIN) 100 unit/mL (3 mL) injection Insulin 2021-11 Yes [id number] INJECT 53 U n[facility] [place] 2-23 UNITS ity of ([place] 00:00: [place] [facility] 00 USLY TWICE Medic al U-100 DAILY Branch INSULIN) 100 unit/mL (3 mL) injection Insulin 2021-11 Yes [id number] INJECT 53 U nivers [place] 2-23 UNITS ity of ([place] 00:00: [place] [facility] 00 USLY TWICE Medic al U-100 DAILY Branch INSULIN) 100 unit/mL (3 mL) injection Insulin 2021-11 Yes [id number] INJECT 53 U nivers [place] 2-23 UNITS ity of ([place] 00:00: [place] [facility] 00 USLY TWICE Medic al U-100 DAILY Branch INSULIN) 100 unit/mL (3 mL) injection Insulin 2021-11 Yes [id number] INJECT 53 U n[facility] [place] 2-23 UNITS ity of ([place] 00:00: [place] [facility] 00 USLY TWICE Medic al U-100 DAILY Branch INSULIN) 100 unit/mL (3 mL) injection Insulin 2021-11 Yes [id number] INJECT 53 U n[facility] [place] 2-23 UNITS ity of ([place] 00:00: [place] [facility] 00 USLY TWICE Medic al U-100 DAILY Branch INSULIN) 100 unit/mL (3 mL) injection Insulin 2021-11 Yes [id number] INJECT 53 U n[facility] [place] 2-23 UNITS ity of ([place] 00:00: [place] [facility] 00 USLY TWICE Medic al U-100 DAILY Branch INSULIN) 100 unit/mL (3 mL) injection Insulin 2021-11 Yes [id number] INJECT 53 U nivers [place] 2-23 UNITS ity of ([place] 00:00: [place] 00 USLY TWICE Medic al U-100 DAILY Branch INSULIN) 100 unit/mL (3 mL) injection Insulin 2021-11 Yes [id number] INJECT 53 U nivers [place] 2-23 UNITS ity of ([place] 00:00: [place] 00 USLY TWICE Medic al U-100 DAILY Branch INSULIN) 100 unit/mL (3 mL) injection Insulin 2021-11 Yes [id number] INJECT 53 U nivers [place] 2-23 UNITS ity of ([place] 00:00: [place] 00 USLY TWICE Medic al U-100 DAILY Branch INSULIN) 100 unit/mL (3 mL) injection Insulin 2021-11 Yes [id number] INJECT 53 U nivers [place] 2-23 UNITS ity of ([place] 00:00: [place] 00 USLY TWICE Medic al U-100 DAILY Branch INSULIN) 100 unit/mL (3 mL) injection Insulin 2021-11 Yes [id number] INJECT 53 U nivers [place] 2-23 UNITS ity of ([place] 00:00: [place] 00 USLY TWICE Medic al U-100 DAILY Branch INSULIN) 100 unit/mL (3 mL) injection Insulin 2021-11 Yes [id number] INJECT 53 U nivers [place] 2-23 UNITS ity of ([place] 00:00: [place] 00 USLY TWICE Medic al U-100 DAILY Branch INSULIN) 100 unit/mL (3 mL) injection Insulin 2021-11 Yes [id number] INJECT 53 U nivers [place] 2-23 UNITS ity of ([place] 00:00: [place] 00 USLY TWICE Medic al U-100 DAILY Branch INSULIN) 100 unit/mL (3 mL) injection Insulin 2021-11 Yes [id number] INJECT 53 U nivers [place] 2-23 UNITS ity of ([place] 00:00: [place] 00 USLY TWICE Medic al U-100 DAILY Branch INSULIN) 100 unit/mL (3 mL) injection Insulin 2021-11 Yes [id number] INJECT 53 U nivers [place] 2-23 UNITS ity of ([place] 00:00: [place] 00 USLY TWICE Medic al U-100 DAILY Branch INSULIN) 100 unit/mL (3 mL) injection Insulin 2021-11 Yes [id number] INJECT 53 U n[facility] [place] 2-23 UNITS ity of ([place] 00:00: [place] 00 USLY TWICE Medic al U-100 DAILY Branch INSULIN) 100 unit/mL (3 mL) injection Insulin 2021-11 Yes [id number] INJECT 53 U nivers [place] 2-23 UNITS ity of ([place] 00:00: [place] 00 USLY TWICE Medic al U-100 DAILY Branch INSULIN) 100 unit/mL (3 mL) injection Insulin 2021-11 Yes [id number] INJECT 53 U nivers [place] 2-23 UNITS ity of ([place] 00:00: [place] 00 USLY TWICE Medic al U-100 DAILY Branch INSULIN) 100 unit/mL (3 mL) injection Insulin 2021-11 Yes [id number] INJECT 53 U n[facility] [place] 2-23 UNITS ity of ([place] 00:00: [place] 00 USLY TWICE Medic al U-100 DAILY Branch INSULIN) 100 unit/mL (3 mL) injection Insulin 2021-11 Yes [id number] INJECT 53 U nivers [place] 2-23 UNITS ity of ([place] 00:00: [place] 00 USLY TWICE Medic al U-100 DAILY Branch INSULIN) 100 unit/mL (3 mL) injection Insulin 2021-11 Yes [id number] INJECT 53 U n[facility] [place] 2-23 UNITS ity of ([place] 00:00: [place] 00 USLY TWICE Medic al U-100 DAILY Branch INSULIN) 100 unit/mL (3 mL) injection Insulin 2021-11 Yes [id number] INJECT 53 U n[facility] [place] 2-23 UNITS ity of ([place] 00:00: [place] [facility] 00 USLY TWICE Medic al U-100 DAILY Branch INSULIN) 100 unit/mL (3 mL) injection Insulin 2021-11 Yes [id number] INJECT 53 U n[facility] [place] 2-23 UNITS ity of ([place] 00:00: [place] 00 USLY TWICE Medic al U-100 DAILY Branch INSULIN) 100 unit/mL (3 mL) injection Insulin 2021-11 Yes [id number] INJECT 53 [facility] n[facility] [place] 2-23 UNITS ity of ([place] 00:00: [place] [facility] 00 USLY TWICE Medic al U-100 DAILY Branch INSULIN) 100 unit/mL (3 mL) injection Insulin 2021-11 Yes [id number] INJECT 53 U n[facility] [place] 2-23 UNITS ity of ([place] 00:00: [place] 00 USLY TWICE Medic al U-100 DAILY Branch INSULIN) 100 unit/mL (3 mL) injection Insulin 2021-11 Yes [id number] INJECT 53 U n[facility] [place] 2-23 UNITS ity of ([place] 00:00: [place] [facility] 00 USLY TWICE Medic al U-100 DAILY Branch INSULIN) 100 unit/mL (3 mL) injection Insulin 2021-11 Yes [id number] INJECT 53 U n[facility] [place] 2-23 UNITS ity of ([place] 00:00: [place] 00 USLY TWICE Medic al U-100 DAILY Branch INSULIN) 100 unit/mL (3 mL) injection Insulin 2021-11 Yes [id number] INJECT 53 U n[facility] [place] 2-23 UNITS ity of ([place] 00:00: [place] 00 USLY TWICE Medic al U-100 DAILY Branch INSULIN) 100 unit/mL (3 mL) injection Insulin 2021-11 Yes [id number] INJECT 53 U n[facility] [place] 2-23 UNITS ity of ([place] 00:00: [place] [facility] 00 USLY TWICE Medic al U-100 DAILY Branch INSULIN) 100 unit/mL (3 mL) injection Insulin 2021-11 Yes [id number] INJECT 53 U n[facility] [place] 2-23 UNITS ity of ([place] 00:00: [place] 00 USLY TWICE Medic al U-100 DAILY Branch INSULIN) 100 unit/mL (3 mL) injection Insulin 2021-11 Yes [id number] INJECT 53 U nivers [place] 2-23 UNITS ity of ([place] 00:00: [place] 00 USLY TWICE Medic al U-100 DAILY Branch INSULIN) 100 unit/mL (3 mL) injection Insulin 2021-11 Yes [id number] INJECT 53 U nivers [place] 2-23 UNITS ity of ([place] 00:00: [place] 00 USLY TWICE Medic al U-100 DAILY Branch INSULIN) 100 unit/mL (3 mL) injection Insulin 2021-11 Yes [id number] INJECT 53 U nivers [place] 2-23 UNITS ity of ([place] 00:00: [place] 00 USLY TWICE Medic al U-100 DAILY Branch INSULIN) 100 unit/mL (3 mL) injection Insulin 2021-11 Yes [id number] INJECT 53 U nivers [place] 2-23 UNITS ity of ([place] 00:00: [place] [facility] 00 USLY TWICE Medic al U-100 DAILY Branch INSULIN) 100 unit/mL (3 mL) injection Insulin 2021-11 Yes [id number] INJECT 53 U nivers [place] 2-23 UNITS ity of ([place] 00:00: [place] [facility] 00 USLY TWICE Medic al U-100 DAILY Branch INSULIN) 100 unit/mL (3 mL) injection Insulin 2021-11 Yes [id number] INJECT 53 U nivers [place] 2-23 UNITS ity of ([place] 00:00: [place] [facility] 00 USLY TWICE Medic al U-100 DAILY Branch INSULIN) 100 unit/mL (3 mL) injection Insulin 2021-11 Yes [id number] INJECT 53 U n[facility] [place] 2-23 UNITS ity of ([place] 00:00: [place] [facility] 00 USLY TWICE Medic al U-100 DAILY Branch INSULIN) 100 unit/mL (3 mL) injection Insulin 2021-11 Yes [id number] INJECT 53 U nivers [place] 2-23 UNITS ity of ([place] 00:00: [place] [facility] 00 USLY TWICE Medic al U-100 DAILY Branch INSULIN) 100 unit/mL (3 mL) injection Insulin 2021-11 Yes [id number] INJECT 53 U nivers [place] 2-23 UNITS ity of ([place] 00:00: [place] [facility] 00 USLY TWICE Medic al U-100 DAILY Branch INSULIN) 100 unit/mL (3 mL) injection Insulin 2021-11 Yes [id number] INJECT 53 U nivers [place] 2-23 UNITS ity of ([place] 00:00: [place] [facility] 00 USLY TWICE Medic al U-100 DAILY Branch INSULIN) 100 unit/mL (3 mL) injection Insulin 2021-11 Yes [id number] INJECT 53 U nivers [place] 2-23 UNITS ity of ([place] 00:00: [place] [facility] 00 USLY TWICE Medic al U-100 DAILY Branch INSULIN) 100 unit/mL (3 mL) injection Insulin 2021-11 Yes [id number] INJECT 53 U n[facility] [place] 2-23 UNITS ity of ([place] 00:00: [place] [facility] 00 USLY TWICE Medic al U-100 DAILY Branch INSULIN) 100 unit/mL (3 mL) injection Insulin 2021-11 Yes [id number] INJECT 53 U nivers [place] 2-23 UNITS ity of ([place] 00:00: [place] [facility] 00 USLY TWICE Medic al U-100 DAILY Branch INSULIN) 100 unit/mL (3 mL) injection Insulin 2021-11 Yes [id number] INJECT 53 U n[facility] [place] 2-23 UNITS ity of ([place] 00:00: [place] [facility] [place] USLY TWICE Medic al U-100 DAILY Branch INSULIN) 100 unit/mL (3 mL) injection Insulin 2021-11- No [id number] INJECT 53 [facility] 2-23 04-28 UNITS ity of ([place] 00:00: 00:00 SUBCUTANEO [place] [facility] 00 :00 USLY TWICE Medic al U-100 DAILY [place] INSULIN) 100 unit/mL (3 mL) injection EUTHYROX 2021-11 Yes [id number] TAKE 1 Un [facility] 125 mcg 2-19 TABLET BY ity of tablet 00:00: MOUTH ONCE [place] 00 DAILY IN [facility] MORNING EUTHYROX 2021-11 Yes [id number] TAKE 1 Un [facility] 125 mcg 2-19 TABLET BY ity of tablet 00:00: MOUTH ONCE [place] 00 DAILY IN [facility] MORNING EUTHYROX 2021-11 Yes [id number] TAKE 1 Un [place] 125 mcg 2-19 TABLET BY ity of tablet 00:00: MOUTH ONCE [place] 00 DAILY IN [facility] EUTHYROX 2021-11 Yes [id number] TAKE 1 Un [place] 125 mcg 2-19 TABLET BY ity of tablet 00:00: MOUTH ONCE [place] 00 DAILY IN [facility] EUTHYROX 2021-11 Yes [id number] TAKE 1 Un [place] 125 mcg 2-19 TABLET BY ity of tablet 00:00: MOUTH ONCE [place] 00 DAILY IN [facility] EUTHYROX 2021-11 Yes [id number] TAKE 1 [facility] [place] 125 mcg 2-19 TABLET BY ity of tablet 00:00: MOUTH ONCE [place] 00 DAILY IN [facility] EUTHYROX 2021-11 Yes [id number] TAKE 1 [facility] [place] 125 mcg 2-19 TABLET BY ity of tablet 00:00: MOUTH ONCE [place] 00 DAILY IN [facility] MORNING EUTHYROX 2021-11 Yes [id number] TAKE 1 Un godfrey 125 mcg 2-19 TABLET BY ity of tablet 00:00: MOUTH ONCE [place] 00 DAILY IN [facility] MORNING EUTHYROX 2021-11 Yes [id number] TAKE 1 Un godfrey 125 mcg 2-19 TABLET BY ity of tablet 00:00: MOUTH ONCE [place] 00 DAILY IN [facility] EUTHYROX 2021-11 Yes [id number] TAKE 1 Un [place]frey 125 mcg 2-19 TABLET BY ity of tablet 00:00: MOUTH ONCE [place] 00 DAILY IN [facility] MORNING EUTHYROX 2021-11 Yes [id number] TAKE 1 Un [place]frey 125 mcg 2-19 TABLET BY ity of tablet 00:00: MOUTH ONCE [place] 00 DAILY IN [facility] MORNING EUTHYROX 2021-11 Yes [id number] TAKE 1 Un godfrey 125 mcg 2-19 TABLET BY ity of tablet 00:00: MOUTH ONCE [place] 00 DAILY IN [facility] EUTHYROX 2021-11 Yes [id number] TAKE 1 Un [place]frey 125 mcg 2-19 TABLET BY ity of tablet 00:00: MOUTH ONCE [place] 00 DAILY IN [facility] MORNING EUTHYROX 2021-11 Yes [id number] TAKE 1 Un [place]frey 125 mcg 2-19 TABLET BY ity of tablet 00:00: MOUTH ONCE [place] 00 DAILY IN [facility] EUTHYROX 2021-11 Yes [id number] TAKE 1 Un [place] 125 mcg 2-19 TABLET BY ity of tablet 00:00: MOUTH ONCE [place] 00 DAILY IN [facility] EUTHYROX 2021-11 Yes [id number] TAKE 1 Un [place] 125 mcg 2-19 TABLET BY ity of tablet 00:00: MOUTH ONCE [place] 00 DAILY IN [facility] EUTHYROX 2021-11 Yes [id number] TAKE 1 Un godfrey 125 mcg 2-19 TABLET BY ity of tablet 00:00: MOUTH ONCE [place] 00 DAILY IN [facility] EUTHYROX 2021-11 Yes [id number] TAKE 1 Un [facility] 125 mcg 2-19 TABLET BY ity of tablet 00:00: MOUTH ONCE [place] 00 DAILY IN [facility] EUTHYROX 2021-11 Yes [id number] TAKE 1 Un [place] 125 mcg 2-19 TABLET BY ity of tablet 00:00: MOUTH ONCE [place] 00 DAILY IN [facility] MORNING EUTHYROX 2021-11 Yes [id number] TAKE 1 Un [facility] 125 mcg 2-19 TABLET BY ity of tablet 00:00: MOUTH ONCE [place] 00 DAILY IN [facility] MORNING EUTHYROX 2021-11 Yes [id number] TAKE 1 Un [facility] 125 mcg 2-19 TABLET BY ity of tablet 00:00: MOUTH ONCE [place] 00 DAILY IN [facility] EUTHYROX 2021-11 Yes [id number] TAKE 1 Un [facility] 125 mcg 2-19 TABLET BY ity of tablet 00:00: MOUTH ONCE [place] 00 DAILY IN [facility] MORNING EUTHYROX 2021-11 Yes [id number] TAKE 1 Un [facility] 125 mcg 2-19 TABLET BY ity of tablet 00:00: MOUTH ONCE [place] 00 DAILY IN [facility] MORNING EUTHYROX 2021-11 Yes [id number] TAKE 1 Un [facility] 125 mcg 2-19 TABLET BY ity of tablet 00:00: MOUTH ONCE [place] 00 DAILY IN [facility] MORNING EUTHYROX 2021-11 Yes [id number] TAKE 1 Un [facility] 125 mcg 2-19 TABLET BY ity of tablet 00:00: MOUTH ONCE [place] 00 DAILY IN [facility] MORNING EUTHYROX 2021-11 Yes [id number] TAKE 1 Un [facility] 125 mcg 2-19 TABLET BY ity of tablet 00:00: MOUTH ONCE [place] 00 DAILY IN [facility] MORNING EUTHYROX 2021-11 Yes [id number] TAKE 1 Un [facility] 125 mcg 2-19 TABLET BY ity of tablet 00:00: MOUTH ONCE [place] 00 DAILY IN [facility] EUTHYROX 2021-11 Yes [id number] TAKE 1 Un [facility] 125 mcg 2-19 TABLET BY ity of tablet 00:00: MOUTH ONCE [place] 00 DAILY IN [facility] MORNING EUTHYROX 2021-11 Yes [id number] TAKE 1 Un [facility] 125 mcg 2-19 TABLET BY ity of tablet 00:00: MOUTH ONCE [place] 00 DAILY IN [facility] EUTHYROX 2021-11 Yes [id number] TAKE 1 Un [facility] 125 mcg 2-19 TABLET BY ity of tablet 00:00: MOUTH ONCE [place] 00 DAILY IN [facility] EUTHYROX 2021-11 Yes [id number] TAKE 1 Un [facility] 125 mcg 2-19 TABLET BY ity of tablet 00:00: MOUTH ONCE [place] 00 DAILY IN [facility] MORNING EUTHYROX 2021-11 Yes [id number] TAKE 1 Un [facility] 125 mcg 2-19 TABLET BY ity of tablet 00:00: MOUTH ONCE [place] 00 DAILY IN [facility] MORNING EUTHYROX 2021-11 Yes [id number] TAKE 1 Un [facility] 125 mcg 2-19 TABLET BY ity of tablet 00:00: MOUTH ONCE [place] 00 DAILY IN [facility] EUTHYROX 2021-11 Yes [id number] TAKE 1 Un [facility] 125 mcg 2-19 TABLET BY ity of tablet 00:00: MOUTH ONCE [place] 00 DAILY IN [facility] MORNING EUTHYROX 2021-11 Yes [id number] TAKE 1 Un [facility] 125 mcg 2-19 TABLET BY ity of tablet 00:00: MOUTH ONCE [place] 00 DAILY IN [facility] MORNING EUTHYROX 2021-11 Yes [id number] TAKE 1 Un [facility] 125 mcg 2-19 TABLET BY ity of tablet 00:00: MOUTH ONCE [place] 00 DAILY IN [facility] EUTHYROX 2021-11 Yes [id number] TAKE 1 Un [facility] 125 mcg 2-19 TABLET BY ity of tablet 00:00: MOUTH ONCE [place] 00 DAILY IN [facility] EUTHYROX 2021-11 Yes [id number] TAKE 1 Un [facility] 125 mcg 2-19 TABLET BY ity of tablet 00:00: MOUTH ONCE [place] 00 DAILY IN [facility] EUTHYROX 2021-11 Yes [id number] TAKE 1 Un [facility] 125 mcg 2-19 TABLET BY ity of tablet 00:00: MOUTH ONCE [place] 00 DAILY IN [facility] EUTHYROX 2021-11 Yes [id number] TAKE 1 Un [facility] 125 mcg 2-19 TABLET BY ity of tablet 00:00: MOUTH ONCE [place] 00 DAILY IN [facility] EUTHYROX 2021-11 Yes [id number] TAKE 1 Un [facility] 125 mcg 2-19 TABLET BY ity of tablet 00:00: MOUTH ONCE [place] 00 DAILY IN [facility] EUTHYROX 2021-11 Yes [id number] TAKE 1 Un [facility] 125 mcg 2-19 TABLET BY ity of tablet 00:00: MOUTH ONCE [place] 00 DAILY IN [facility] EUTHYROX 2021-11 Yes [id number] TAKE 1 Un [facility] 125 mcg 2-19 TABLET BY ity of tablet 00:00: MOUTH ONCE [place] 00 DAILY IN [facility] EUTHYROX 2021-11 Yes [id number] TAKE 1 Un [facility] 125 mcg 2-19 TABLET BY ity of tablet 00:00: MOUTH ONCE [place] 00 DAILY IN [facility] MORNING EUTHYROX 2021-11 Yes [id number] TAKE 1 Un [facility] 125 mcg 2-19 TABLET BY ity of tablet 00:00: MOUTH ONCE [place] 00 DAILY IN [facility] MORNING EUTHYROX 2021-11 Yes [id number] TAKE 1 Un [facility] 125 mcg 2-19 TABLET BY ity of tablet 00:00: MOUTH ONCE [place] 00 DAILY IN [facility] EUTHYROX 2021-11 Yes [id number] TAKE 1 Un [facility] 125 mcg 2-19 TABLET BY ity of tablet 00:00: MOUTH ONCE [place] 00 DAILY IN [facility] MORNING EUTHYROX 2021-11 Yes [id number] TAKE 1 Un [facility] 125 mcg 2-19 TABLET BY ity of tablet 00:00: MOUTH ONCE [place] 00 DAILY IN [facility] MORNING EUTHYROX 2021-11 Yes [id number] TAKE 1 Un [facility] 125 mcg 2-19 TABLET BY ity of tablet 00:00: MOUTH ONCE [place] 00 DAILY IN [facility] MORNING EUTHYROX 2021-11 Yes [id number] TAKE 1 Un [facility] 125 mcg 2-19 TABLET BY ity of tablet 00:00: MOUTH ONCE [place] 00 DAILY IN [facility] MORNING EUTHYROX 2021-11 Yes [id number] TAKE 1 Un [facility] 125 mcg 2-19 TABLET BY ity of tablet 00:00: MOUTH ONCE [place] 00 DAILY IN [facility] MORNING EUTHYROX 2021-11 Yes [id number] TAKE 1 Un [facility] 125 mcg 2-19 TABLET BY ity of tablet 00:00: MOUTH ONCE [place] 00 DAILY IN [facility] EUTHYROX 2021-11 Yes [id number] TAKE 1 Un [facility]frey 125 mcg 2-19 TABLET BY ity of tablet 00:00: MOUTH ONCE [place] 00 DAILY IN [facility] EUTHYROX 2021-11 Yes [id number] TAKE 1 Un [facility] 125 mcg 2-19 TABLET BY ity of tablet 00:00: MOUTH ONCE [place] 00 DAILY IN [facility] MORNING EUTHYROX 2021-11 Yes [id number] TAKE 1 Un [facility] 125 mcg 2-19 TABLET BY ity of tablet 00:00: MOUTH ONCE [place] 00 DAILY IN [facility] MORNING EUTHYROX 2021-11 Yes [id number] TAKE 1 Un [facility] 125 mcg 2-19 TABLET BY ity of tablet 00:00: MOUTH ONCE [place] 00 DAILY IN [facility] MORNING EUTHYROX 2021-11 Yes [id number] TAKE 1 Un [facility] 125 mcg 2-19 TABLET BY ity of tablet 00:00: MOUTH ONCE [place] 00 DAILY IN [facility] MORNING EUTHYROX 2021-11 Yes [id number] TAKE 1 Un [facility] 125 mcg 2-19 TABLET BY ity of tablet 00:00: MOUTH ONCE [place] 00 DAILY IN [facility] MORNING EUTHYROX 2021-11 Yes [id number] TAKE 1 Un [facility]frey 125 mcg 2-19 TABLET BY ity of tablet 00:00: MOUTH ONCE [place] 00 DAILY IN [facility] MORNING EUTHYROX 2021-11 Yes [id number] TAKE 1 Un [facility]frey 125 mcg 2-19 TABLET BY ity of tablet 00:00: MOUTH ONCE [place] 00 DAILY IN [facility] MORNING EUTHYROX 2021-11 Yes [id number] TAKE 1 Un god[facility] 125 mcg 2-19 TABLET BY ity of tablet 00:00: MOUTH ONCE [place] 00 DAILY IN [facility] MORNING EUTHYROX 2021-11 Yes [id number] TAKE 1 Un godfrey 125 mcg 2-19 TABLET BY ity of tablet 00:00: MOUTH ONCE [place] 00 DAILY IN [facility] EUTHYROX 2021-11 Yes [id number] TAKE 1 Un godfrey 125 mcg 2-19 TABLET BY ity of tablet 00:00: MOUTH ONCE [place] 00 DAILY IN [facility] MORNING EUTHYROX 2021-11 Yes [id number] TAKE 1 Un godfrey 125 mcg 2-19 TABLET BY ity of tablet 00:00: MOUTH ONCE [place] 00 DAILY IN [facility] MORNING EUTHYROX 2021-11 Yes [id number] TAKE 1 Un godfrey 125 mcg 2-19 TABLET BY ity of tablet 00:00: MOUTH ONCE [place] 00 DAILY IN [facility] MORNING EUTHYROX 2021-11 Yes [id number] TAKE 1 Un godfrey 125 mcg 2-19 TABLET BY ity of tablet 00:00: MOUTH ONCE [place] 00 DAILY IN [facility] MORNING EUTHYROX 2021-11 Yes [id number] TAKE 1 Un godfrey 125 mcg 2-19 TABLET BY ity of tablet 00:00: MOUTH ONCE [place] 00 DAILY IN [facility] MORNING EUTHYROX 2021-11 Yes [id number] TAKE 1 Un godfrey 125 mcg 2-19 TABLET BY ity of tablet 00:00: MOUTH ONCE [place] 00 DAILY IN [facility] MORNING EUTHYROX 2021-11 Yes [id number] TAKE 1 Un godfrey 125 mcg 2-19 TABLET BY ity of tablet 00:00: MOUTH ONCE [place] 00 DAILY IN [facility] MORNING EUTHYROX 2021-11 Yes [id number] TAKE 1 Un godfrey 125 mcg 2-19 TABLET BY ity of tablet 00:00: MOUTH ONCE [place] 00 DAILY IN [facility] MORNING EUTHYROX 2021-11 Yes [id number] TAKE 1 Un godfrey 125 mcg 2-19 TABLET BY ity of tablet 00:00: MOUTH ONCE [place] 00 DAILY IN [facility] MORNING EUTHYROX 2021-11 Yes [id number] TAKE 1 Un godfrey 125 mcg 2-19 TABLET BY ity of tablet 00:00: MOUTH ONCE [place] 00 DAILY IN [facility] MORNING EUTHYROX 2021-11 Yes [id number] TAKE 1 Un godfrey 125 mcg 2-19 TABLET BY ity of tablet 00:00: MOUTH ONCE [place] 00 DAILY IN [facility] MORNING EUTHYROX 2021-11 Yes [id number] TAKE 1 Un godfrey 125 mcg 2-19 TABLET BY ity of tablet 00:00: MOUTH ONCE [place] 00 DAILY IN [facility] MORNING EUTHYROX 2021-11 Yes [id number] TAKE 1 Un godfrey 125 mcg 2-19 TABLET BY ity of tablet 00:00: MOUTH ONCE [place] 00 DAILY IN [facility] MORNING EUTHYROX 2021-11 Yes [id number] TAKE 1 Un godfrey 125 mcg 2-19 TABLET BY ity of tablet 00:00: MOUTH ONCE [place] 00 DAILY IN [facility] MORNING EUTHYROX 2021-11 Yes [id number] TAKE 1 Un godfrey 125 mcg 2-19 TABLET BY ity of tablet 00:00: MOUTH ONCE [place] 00 DAILY IN [facility] EUTHYROX 2021-11 Yes [id number] TAKE 1 Un godfrey 125 mcg 2-19 TABLET BY ity of tablet 00:00: MOUTH ONCE [place] 00 DAILY IN [facility] MORNING EUTHYROX 2021-11 Yes [id number] TAKE 1 Un godfrey 125 mcg 2-19 TABLET BY ity of tablet 00:00: MOUTH ONCE [place] 00 DAILY IN [facility] MORNING EUTHYROX 2021-11 Yes [id number] TAKE 1 Un godfrey 125 mcg 2-19 TABLET BY ity of tablet 00:00: MOUTH ONCE [place] 00 DAILY IN [facility] MORNING EUTHYROX 2021-11 Yes [id number] TAKE 1 Un godfrey 125 mcg 2-19 TABLET BY ity of tablet 00:00: MOUTH ONCE [place] 00 DAILY IN [facility] MORNING EUTHYROX 2021-11 Yes [id number] TAKE 1 Un godfrey 125 mcg 2-19 TABLET BY ity of tablet 00:00: MOUTH ONCE [place] 00 DAILY IN [facility] MORNING EUTHYROX 2021-113- No [id number] TAKE 1 U nivers 125 mcg -22 02- TABLET BY ity of tablet 00:00: 00:[place]CE [place] [facility] MORNING EUTHYROX 2021-113- No [id number] TAKE 1 U nivers 125 mcg -22 02- TABLET BY ity of tablet 00:00: 00:[place] [facility] MORNING GABAPENTIN 2021-11 Yes [id number] TAKE 1 & [facility] 600 mg 1-26 1/2 (ONE & ity of tablet 00:00: ONE-HALF) [place] 00 TABLETS BY Medical MOUTH Branch THREE TIMES DAILY GABAPENTIN 2021-11 Yes [id number] TAKE 1 & [facility] 600 mg 1-26 1/2 (ONE & ity of tablet 00:00: ONE-HALF) [place] 00 TABLETS BY Medical MOUTH Branch THREE TIMES DAILY GABAPENTIN 2021-11 Yes [id number] TAKE 1 & [facility] 600 mg 1-26 1/2 (ONE & ity of tablet 00:00: ONE-HALF) [place] 00 TABLETS BY Medical MOUTH Branch THREE TIMES DAILY GABAPENTIN 2021-11 Yes [id number] TAKE 1 & [facility] 600 mg 1-26 1/2 (ONE & ity of tablet 00:00: ONE-HALF) [place] 00 TABLETS BY Medical MOUTH Branch THREE TIMES DAILY GABAPENTIN 2021-11 Yes [id number] TAKE 1 & [facility] 600 mg 1-26 1/2 (ONE & ity of tablet 00:00: ONE-HALF) [place] 00 TABLETS BY Medical MOUTH Branch THREE TIMES DAILY GABAPENTIN 2021-11 Yes [id number] TAKE 1 & [facility] 600 mg 1-26 1/2 (ONE & ity of tablet 00:00: ONE-HALF) [place] 00 TABLETS BY Medical MOUTH Branch THREE TIMES DAILY GABAPENTIN 2021-11 Yes [id number] TAKE 1 & [facility] 600 mg 1-26 1/2 (ONE & ity of tablet 00:00: ONE-HALF) [place] 00 TABLETS BY Medical MOUTH Branch THREE TIMES DAILY GABAPENTIN 2021- Yes [id number] TAKE 1 & [facility] 600 mg 1-26 1/2 (ONE & ity of tablet 00:00: ONE-HALF) [place] 00 TABLETS BY Medical MOUTH Branch THREE TIMES DAILY GABAPENTIN 2021- Yes [id number] TAKE 1 & [facility] 600 mg 1- 1/2 (ONE & ity of tablet 00:00: ONE-HALF) [place] 00 TABLETS BY Medical MOUTH Branch THREE TIMES DAILY GABAPENTIN 2- Yes [id number] TAKE 1 & [facility] 600 mg 1- 1/2 (ONE & ity of tablet 00:00: ONE-HALF) [place] 00 TABLETS BY Medical MOUTH Branch THREE TIMES DAILY GABAPENTIN 2- Yes [id number] TAKE 1 & [facility] 600 mg 1- 1/2 (ONE & ity of tablet 00:00: ONE-HALF) [place] 00 TABLETS BY Medical MOUTH Branch THREE TIMES DAILY GABAPENTIN 2- Yes [id number] TAKE 1 & [facility] 600 mg - 1/2 (ONE & ity of tablet 00:00: ONE-HALF) [place] 00 TABLETS BY Medical MOUTH Branch THREE TIMES DAILY GABAPENTIN 2021- Yes [id number] TAKE 1 & [facility] 600 mg - 1/2 (ONE & ity of tablet 00:00: ONE-HALF) [place] 00 TABLETS BY Medical MOUTH Branch THREE TIMES DAILY GABAPENTIN 2021- Yes [id number] TAKE 1 & [facility] 600 mg - 1/2 (ONE & ity of tablet 00:00: ONE-HALF) [place] 00 TABLETS BY Medical MOUTH Branch THREE TIMES DAILY GABAPENTIN 2- Yes [id number] TAKE 1 & [facility] 600 mg - 1/2 (ONE & ity of tablet 00:00: ONE-HALF) [place] 00 TABLETS BY Medical MOUTH Branch THREE TIMES DAILY GABAPENTIN 2- Yes [id number] TAKE 1 & [facility] 600 mg - 1/2 (ONE & ity of tablet 00:00: ONE-HALF) [place] 00 TABLETS BY Medical MOUTH Branch THREE TIMES DAILY GABAPENTIN 2- Yes [id number] TAKE 1 & [facility] 600 mg -26 1/2 (ONE & ity of tablet 00:00: ONE-HALF) [place] 00 TABLETS BY Medical MOUTH Branch THREE TIMES DAILY GABAPENTIN 2- Yes [id number] TAKE 1 & [facility] 600 mg 1-26 1/2 (ONE & ity of tablet 00:00: ONE-HALF) [place] 00 TABLETS BY Medical MOUTH Branch THREE TIMES DAILY GABAPENTIN 2- Yes [id number] TAKE 1 & [facility] 600 mg 1-26 1/2 (ONE & ity of tablet 00:00: ONE-HALF) [place] 00 TABLETS BY Medical MOUTH Branch THREE TIMES DAILY GABAPENTIN 2- Yes [id number] TAKE 1 & [facility] 600 mg - 1/2 (ONE & ity of tablet 00:00: ONE-HALF) [place] 00 TABLETS BY Medical MOUTH Branch THREE TIMES DAILY GABAPENTIN 2022- Yes [id number] TAKE 1 & [facility] 600 mg - 1/2 (ONE & ity of tablet 00:00: ONE-HALF) [place] 00 TABLETS BY Medical MOUTH Branch THREE TIMES DAILY GABAPENTIN 2022- Yes [id number] TAKE 1 & [facility] 600 mg - 1/2 (ONE & ity of tablet 00:00: ONE-HALF) [place] 00 TABLETS BY Medical MOUTH Branch THREE TIMES DAILY GABAPENTIN 2- Yes [id number] TAKE 1 & [facility] 600 mg - 1/2 (ONE & ity of tablet 00:00: ONE-HALF) [place] 00 TABLETS BY Medical MOUTH Branch THREE TIMES DAILY GABAPENTIN 2- Yes [id number] TAKE 1 & [facility] 600 mg - 1/2 (ONE & ity of tablet 00:00: ONE-HALF) [place] 00 TABLETS BY Medical MOUTH Branch THREE TIMES DAILY GABAPENTIN 2- Yes [id number] TAKE 1 & [facility] 600 mg - 1/2 (ONE & ity of tablet 00:00: ONE-HALF) [place] 00 TABLETS BY Medical MOUTH Branch THREE TIMES DAILY GABAPENTIN 2-1 Yes [id number] TAKE 1 & [facility] 600 mg - 1/2 (ONE & ity of tablet 00:00: ONE-HALF) [place] 00 TABLETS BY Medical MOUTH Branch THREE TIMES DAILY GABAPENTIN 2022-1 Yes [id number] TAKE 1 & [facility] 600 mg - 1/2 (ONE & ity of tablet 00:00: ONE-HALF) [place] 00 TABLETS BY Medical MOUTH Branch THREE TIMES DAILY GABAPENTIN 2-1 Yes [id number] TAKE 1 & [facility] 600 mg 1-26 1/2 (ONE & ity of tablet 00:00: ONE-HALF) [place] 00 TABLETS BY Medical MOUTH Branch THREE TIMES DAILY GABAPENTIN 2022-1 Yes [id number] TAKE 1 & [facility] 600 mg 1-26 1/2 (ONE & ity of tablet 00:00: ONE-HALF) [place] 00 TABLETS BY Medical MOUTH Branch THREE TIMES DAILY GABAPENTIN 2022-1 Yes [id number] TAKE 1 & [facility] 600 mg -2 (ONE & ity of tablet 00:00: ONE-HALF) [place] 00 TABLETS BY Medical MOUTH Branch THREE TIMES DAILY GABAPENTIN 2021-11 Yes [id number] TAKE 1 & [facility] 600 mg -2 (ONE & ity of tablet 00:00: ONE-HALF) [place] 00 TABLETS BY Medical MOUTH Branch THREE TIMES DAILY GABAPENTIN 2021-11 Yes [id number] TAKE 1 & [facility] 600 mg -2 (ONE & ity of tablet 00:00: ONE-HALF) [place] 00 TABLETS BY Medical MOUTH Branch THREE TIMES DAILY GABAPENTIN 2021-11 Yes [id number] TAKE 1 & [facility] 600 mg -2 (ONE & ity of tablet 00:00: ONE-HALF) [place] 00 TABLETS BY Medical MOUTH Branch THREE TIMES DAILY GABAPENTIN 2021-11 Yes [id number] TAKE 1 & [facility] 600 mg -2 (ONE & ity of tablet 00:00: ONE-HALF) [place] 00 TABLETS BY Medical MOUTH Branch THREE TIMES DAILY GABAPENTIN 2021-11 Yes [id number] TAKE 1 & [facility] 600 mg -2 (ONE & ity of tablet 00:00: ONE-HALF) [place] 00 TABLETS BY Medical MOUTH Branch THREE TIMES DAILY GABAPENTIN 2021-11 Yes [id number] TAKE 1 & [facility] 600 mg -2 (ONE & ity of tablet 00:00: ONE-HALF) [place] 00 TABLETS BY Medical MOUTH Branch THREE TIMES DAILY GABAPENTIN 2021-11 Yes [id number] TAKE 1 & [facility] 600 mg -2 (ONE & ity of tablet 00:00: ONE-HALF) [place] 00 TABLETS BY Medical MOUTH Branch THREE TIMES DAILY GABAPENTIN 2021-11 Yes [id number] TAKE 1 & [facility] 600 mg -2 (ONE & ity of tablet 00:00: ONE-HALF) [place] 00 TABLETS BY Medical MOUTH Branch THREE TIMES DAILY GABAPENTIN 2021-2022- No [id number] TAKE 1 & [facility] 600 mg -26 -2 (ONE & ity of tablet 00:00: 00:00 ONE-HALF) [place] 00 :00 TABLETS BY Medical MOUTH Branch THREE TIMES DAILY amoxicillin 2021-11 Yes [id number] 1{tbl} Take 1 [facility] -clavulanat 1-22 tablet by ity of e 00:00: mouth in [place] (AUGMENTIN) 00 the Medical 875-125 mg morning Branch per tablet and 1 tablet in the evening. albuterol 2021-11 Yes [id number] 2{puff} Inhale 2 [facility] 90 1-22 Puffs ity of mcg/actuati 00:00: every 6 [place] as on inhaler 00 (six) Medical hours as Branch needed for Wheezing or Shortness of Breath. ipratropium 2021-11 Yes [id number] .5mg Inhale 2.5 [facility] 0.02 % 1-22 mL every 6 ity of nebulizer 00:00: (six) [place] solution 00 hours as Medical needed for Branch Wheezing or Shortness of Breath. albuterol 2021-11 Yes [id number] 2.5mg Inhale 3 Univers 2.5 mg /3 1-22 mL every 6 ity of mL (0.083 00:00: (six) [place] %) 00 hours as Medical nebulizer needed for Bran ch solution Wheezing or Shortness of Breath. budesonide- 2021-11 Yes [id number] 2{puff} Inhale 2 [facility] formoteroL 1-22 Puffs in ity o f (SYMBICORT) 00:00: the [place] 80-4.5 00 morning Medical mcg/actuati and 2 Branch on inhaler Puffs in the evening. Miscellaneo 2021-11 Yes [id number] J40: [facility] Medical 1-22 Brochitis ity of Supply Kit 00:00: - [place]pense [place] # 1 Medical Thad Branch Respironic s (okay for alternativ e brand) for nebulizer treatment amoxicillin 2021-11 Yes [id number] 1{tbl} Take 1 [facility] -clavulanat 1-22 tablet by ity of e 00:00: mouth in [place] (AUGMENTIN) 00 the Medical 875-125 mg morning Branch per tablet and 1 tablet in the evening. albuterol 2021-11 Yes [id number] 2{puff} Inhale 2 [facility] 90 1-22 Puffs ity of mcg/actuati 00:00: every 6 [place] as on inhaler 00 (six) Medical hours as Branch needed for Wheezing or Shortness of Breath. ipratropium 2021-11 Yes [id number] .5mg Inhale 2.5 [facility] 0.02 % 1-22 mL every 6 ity of nebulizer 00:00: (six) [place] solution 00 hours as Medical needed for Branch Wheezing or Shortness of Breath. albuterol 2021-11 Yes [id number] 2.5mg Inhale 3 [facility] 2.5 mg /3 1-22 mL every 6 ity of mL (0.083 00:00: (six) [place] %) 00 hours as Medical nebulizer needed for Bran ch solution Wheezing or Shortness of Breath. budesonide- 2021-11 Yes [id number] 2{puff} Inhale 2 [facility] formoteroL 1-22 Puffs in ity o f (SYMBICORT) 00:00: the [place] 80-4.5 00 morning Medical mcg/actuati and 2 Branch on inhaler Puffs in the evening. Miscellaneo 2021-11 Yes [id number] J40: [facility] Medical 1-22 Brochitis ity of Supply Kit 00:00: - Dispense [place] 00 # 1 Medical Thad Branch Respironic s (okay for alternativ e brand) for nebulizer treatment amoxicillin 2021-11 Yes [id number] 1{tbl} Take 1 [facility] -clavulanat 1-22 tablet by ity of e 00:00: mouth in [place] (AUGMENTIN) 00 the Medical 875-125 mg morning Branch per tablet and 1 tablet in the evening. albuterol 2021-11 Yes [id number] 2{puff} Inhale 2 [facility] 90 1-22 Puffs ity of mcg/actuati 00:00: every 6 [place] as on inhaler 00 (six) Medical hours as Branch needed for Wheezing or Shortness of Breath. ipratropium 2021-11 Yes [id number] .5mg Inhale 2.5 [facility] 0.02 % 1-22 mL every 6 ity of nebulizer 00:00: (six) [place] solution 00 hours as Medical needed for Branch Wheezing or Shortness of Breath. albuterol 2021-11 Yes [id number] 2.5mg Inhale 3 [facility] 2.5 mg /3 1-22 mL every 6 ity of mL (0.083 00:00: (six) [place] %) 00 hours as Medical nebulizer needed for Bran ch solution Wheezing or Shortness of Breath. budesonide- 2021-11 Yes [id number] 2{puff} Inhale 2 [facility] formoteroL 1-22 Puffs in ity o f (SYMBICORT) 00:00: the [place] 80-4.5 00 morning Medical mcg/actuati and 2 Branch on inhaler Puffs in the evening. Miscellaneo 2021-11 Yes [id number] J40: [facility] [place] [facility] 1-22 Brochitis ity of Supply Kit 00:00: - Dispense [place] # 1 Medical Thad Branch Respironic s (okay for alternativ e brand) for nebulizer treatment amoxicillin 2021-11 Yes [id number] 1{tbl} Take 1 [facility] -clavulanat 1-22 tablet by ity of e 00:00: mouth in [place] (AUGMENTIN) 00 the Medical 875-125 mg morning Branch per tablet and 1 tablet in the evening. albuterol 2021-11 Yes [id number] 2{puff} Inhale 2 [facility] 90 1-22 Puffs ity of mcg/actuati 00:00: every 6 [place] as on inhaler 00 (six) Medical hours as Branch needed for Wheezing or Shortness of Breath. ipratropium 2021-11 Yes [id number] .5mg Inhale 2.5 [facility] 0.02 % 1-22 mL every 6 ity of nebulizer 00:00: (six) [place] solution 00 hours as Medical needed for Branch Wheezing or Shortness of Breath. albuterol 2021-11 Yes [id number] 2.5mg Inhale 3 [facility] 2.5 mg /3 1-22 mL every 6 ity of mL (0.083 00:00: (six) [place] %) 00 hours as Medical nebulizer needed for Bran ch solution Wheezing or Shortness of Breath. budesonide- 2021-11 Yes [id number] 2{puff} Inhale 2 [facility] formoteroL 1-22 Puffs in ity o f (SYMBICORT) 00:00: the [place] 80-4.5 00 morning Medical mcg/actuati and 2 Branch on inhaler Puffs in the evening. Miscellaneo 2021-11 Yes [id number] J40: [facility] [place] [facility] 1-22 Brochitis ity of Supply Kit 00:00: - Dispense [place] # 1 Medical Thad Branch Respironic s (okay for alternativ e brand) for nebulizer treatment amoxicillin 2021-11 Yes [id number] 1{tbl} Take 1 [facility] -clavulanat 1-22 tablet by ity of e 00:00: mouth in [place] (AUGMENTIN) 00 the Medical 875-125 mg morning Branch per tablet and 1 tablet in the evening. albuterol 2021-11 Yes [id number] 2{puff} Inhale 2 [facility] 90 1-22 Puffs ity of mcg/actuati 00:00: every 6 [place] as on inhaler 00 (six) Medical hours as Branch needed for Wheezing or Shortness of Breath. ipratropium 2021-11 Yes [id number] .5mg Inhale 2.5 [facility] 0.02 % 1-22 mL every 6 ity of nebulizer 00:00: (six) [place] solution 00 hours as Medical needed for Branch Wheezing or Shortness of Breath. albuterol 2021-11 Yes [id number] 2.5mg Inhale 3 [facility] 2.5 mg /3 1-22 mL every 6 ity of mL (0.083 00:00: (six) [place] %) 00 hours as Medical nebulizer needed for Bran ch solution Wheezing or Shortness of Breath. budesonide- 2021-11 Yes [id number] 2{puff} Inhale 2 [facility] formoteroL 1-22 Puffs in ity o f (SYMBICORT) 00:00: the [place] 80-4.5 00 morning Medical mcg/actuati and 2 Branch on inhaler Puffs in the evening. Miscellaneo 2021-11 Yes [id number] J40: [facility] Medical 1-22 Brochitis ity of Supply Kit 00:00: - Dispense [place] 00 # 1 Medical Thad Branch Respironic s (okay for alternativ e brand) for nebulizer treatment amoxicillin 2021-11 Yes [id number] 1{tbl} Take 1 [facility] -clavulanat 1-22 tablet by ity of e 00:00: mouth in [place] (AUGMENTIN) 00 the Medical 875-125 mg morning Branch per tablet and 1 tablet in the evening. albuterol 2021-11 Yes [id number] 2{puff} Inhale 2 [facility] 90 1-22 Puffs ity of mcg/actuati 00:00: every 6 [place] as on inhaler 00 (six) Medical hours as Branch needed for Wheezing or Shortness of Breath. ipratropium 2021-11 Yes [id number] .5mg Inhale 2.5 [facility] 0.02 % 1-22 mL every 6 ity of nebulizer 00:00: (six) [place] solution 00 hours as Medical needed for Branch Wheezing or Shortness of Breath. albuterol 2021-11 Yes [id number] 2.5mg Inhale 3 [facility] 2.5 mg /3 1-22 mL every 6 ity of mL (0.083 00:00: (six) [place] %) 00 hours as Medical nebulizer needed for Bran ch solution Wheezing or Shortness of Breath. budesonide- 2021-11 Yes [id number] 2{puff} Inhale 2 [facility] formoteroL 1-22 Puffs in ity o f (SYMBICORT) 00:00: the [place] 80-4.5 00 morning Medical mcg/actuati and 2 Branch on inhaler Puffs in the evening. Miscellaneo 2021-11 Yes [id number] J40: [facility] Medical 1-22 Brochitis ity of Supply Kit 00:00: - Dispense [place] 00 # 1 Medical Th[place] [facility] Respironic s (okay for alternativ e brand) for nebulizer treatment amoxicillin 2021-11 Yes [id number] 1{tbl} Take 1 Univers -clavulanat 1-22 tablet by ity of e 00:00: mouth in [place] (AUGMENTIN) 00 the Medical 875-125 mg morning Branch per tablet and 1 tablet in the evening. albuterol 2021-11 Yes [id number] 2{puff} Inhale 2 [facility] 90 1-22 Puffs ity of mcg/actuati 00:00: every 6 [place] as on inhaler 00 (six) Medical hours as Branch needed for Wheezing or Shortness of Breath. ipratropium 2021-11 Yes [id number] .5mg Inhale 2.5 [facility] 0.02 % 1-22 mL every 6 ity of nebulizer 00:00: (six) [place] solution 00 hours as Medical needed for Branch Wheezing or Shortness of Breath. albuterol 2021-11 Yes [id number] 2.5mg Inhale 3 [facility] 2.5 mg /3 1-22 mL every 6 ity of mL (0.083 00:00: (six) [place] %) 00 hours as Medical nebulizer needed for Bran ch solution Wheezing or Shortness of Breath. budesonide- 2021-11 Yes [id number] 2{puff} Inhale 2 [facility] formoteroL 1-22 Puffs in ity o f (SYMBICORT) 00:00: the [place] 80-4.5 00 morning Medical mcg/actuati and 2 Branch on inhaler Puffs in the evening. Miscellaneo 2021-11 Yes [id number] J40: [facility] 1-22 Brochitis ity of Supply Kit 00:00: [place] 00 # 1 Medical Thad Branch Respironic s (okay for alternativ e brand) for nebulizer treatment amoxicillin 2021-11 Yes [id number] 1{tbl} Take 1 [facility] -clavulanat 1-22 tablet by ity of e 00:00: mouth in [place] (AUGMENTIN) 00 the Medical 875-125 mg morning Branch per tablet and 1 tablet in the evening. albuterol 2021-11 Yes [id number] 2{puff} Inhale 2 [facility] 90 1-22 Puffs ity of mcg/actuati 00:00: every 6 [place] as on inhaler 00 (six) Medical hours as Branch needed for Wheezing or Shortness of Breath. ipratropium 2021-11 Yes [id number] .5mg Inhale 2.5 [facility] 0.02 % 1-22 mL every 6 ity of nebulizer 00:00: (six) [place] solution 00 hours as Medical needed for Branch Wheezing or Shortness of Breath. albuterol 2021-11 Yes [id number] 2.5mg Inhale 3 [facility] 2.5 mg /3 1-22 mL every 6 ity of mL (0.083 00:00: (six) [place] %) 00 hours as Medical nebulizer needed for Bran ch solution Wheezing or Shortness of Breath. budesonide- 2021-11 Yes [id number] 2{puff} Inhale 2 [facility] formoteroL 1-22 Puffs in ity o f (SYMBICORT) 00:00: the [place] 80-4.5 00 morning Medical mcg/actuati and 2 Branch on inhaler Puffs in the evening. Miscellaneo 2021-11 Yes [id number] J40: [facility] [place] [facility] 11-27 Brochitis ity of Supply Kit 00:00: - [place] 00 # 1 Medical Thad Branch Respironic s (okay for alternativ e brand) for nebulizer treatment amoxicillin 2021-11 Yes [id number] 1{tbl} Take 1 [facility] -clavulanat 1-22 tablet by ity of e 00:00: mouth in [place] (AUGMENTIN) 00 the Medical 875-125 mg morning Branch per tablet and 1 tablet in the evening. albuterol 2021-11 Yes [id number] 2{puff} Inhale 2 [facility] 90 1-22 Puffs ity of mcg/actuati 00:00: every 6 [place] as on inhaler 00 (six) Medical hours as Branch needed for Wheezing or Shortness of Breath. ipratropium 2021-11 Yes [id number] .5mg Inhale 2.5 [facility] 0.02 % 1-22 mL every 6 ity of nebulizer 00:00: (six) [place] solution 00 hours as Medical needed for Branch Wheezing or Shortness of Breath. albuterol 2021-11 Yes [id number] 2.5mg Inhale 3 [facility] 2.5 mg /3 1-22 mL every 6 ity of mL (0.083 00:00: (six) [place] %) 00 hours as Medical nebulizer needed for Bran ch solution Wheezing or Shortness of Breath. budesonide- 2021-11 Yes [id number] 2{puff} Inhale 2 [facility] formoteroL 1-22 Puffs in ity o f (SYMBICORT) 00:00: the [place] 80-4.5 00 morning Medical mcg/actuati and 2 Branch on inhaler Puffs in the evening. Miscellaneo 2021-11 Yes [id number] J40: [facility] [place] [facility] 22 Brochitis ity of Supply Kit 00:00: - [place] 00 # 1 Medical Thad Branch Respironic s (okay for alternativ e brand) for nebulizer treatment amoxicillin 2021-11 Yes [id number] 1{tbl} Take 1 [facility] -clavulanat 1-22 tablet by ity of e 00:00: mouth in [place] (AUGMENTIN) 00 the Medical 875-125 mg morning Branch per tablet and 1 tablet in the evening. albuterol 2021-11 Yes [id number] 2{puff} Inhale 2 [facility] 90 1-22 Puffs ity of mcg/actuati 00:00: every 6 [place] as on inhaler 00 (six) Medical hours as Branch needed for Wheezing or Shortness of Breath. ipratropium 2021-11 Yes [id number] .5mg Inhale 2.5 [facility] 0.02 % 1-22 mL every 6 ity of nebulizer 00:00: (six) [place] solution 00 hours as Medical needed for Branch Wheezing or Shortness of Breath. albuterol 2021-11 Yes [id number] 2.5mg Inhale 3 [facility] 2.5 mg /3 1-22 mL every 6 ity of mL (0.083 00:00: (six) [place] %) 00 hours as Medical nebulizer needed for Bran ch solution Wheezing or Shortness of Breath. budesonide- 2021-11 Yes [id number] 2{puff} Inhale 2 [facility] formoteroL 1-22 Puffs in ity o f (SYMBICORT) 00:00: the [place] 80-4.5 00 morning Medical mcg/actuati and 2 Branch on inhaler Puffs in the evening. Miscellaneo 2021-11 Yes [id number] J40: [facility] [place] [facility] 1-22 Brochitis ity of Supply Kit 00:00: - [place] 00 # 1 Medical Thad Branch Respironic s (okay for alternativ e brand) for nebulizer treatment amoxicillin 2021-11 Yes [id number] 1{tbl} Take 1 [facility] -clavulanat 1-22 tablet by ity of e 00:00: mouth in [place] (AUGMENTIN) 00 the Medical 875-125 mg morning Branch per tablet and 1 tablet in the evening. albuterol 2021-11 Yes [id number] 2{puff} Inhale 2 [facility] 90 1-22 Puffs ity of mcg/actuati 00:00: every 6 [place] as on inhaler 00 (six) Medical hours as Branch needed for Wheezing or Shortness of Breath. ipratropium 2021-11 Yes [id number] .5mg Inhale 2.5 [facility] 0.02 % 1-22 mL every 6 ity of nebulizer 00:00: (six) [place] solution 00 hours as Medical needed for Branch Wheezing or Shortness of Breath. albuterol 2021-11 Yes [id number] 2.5mg Inhale 3 [facility] 2.5 mg /3 1-22 mL every 6 ity of mL (0.083 00:00: (six) [place] %) 00 hours as Medical nebulizer needed for Bran ch solution Wheezing or Shortness of Breath. budesonide- 2021-11 Yes [id number] 2{puff} Inhale 2 [facility] formoteroL 1-22 Puffs in ity o f (SYMBICORT) 00:00: the [place] 80-4.5 00 morning Medical mcg/actuati and 2 Branch on inhaler Puffs in the evening. Miscellaneo 2021-11 Yes [id number] J40: [facility] 1-22 Brochitis ity of Supply Kit 00:00: - Dispense [place] 00 # 1 Medical Thad Branch Respironic s (okay for alternativ e brand) for nebulizer treatment amoxicillin 2021-11 Yes [id number] 1{tbl} Take 1 [facility] -clavulanat 1-22 tablet by ity of e 00:00: mouth in [place] (AUGMENTIN) 00 the Medical 875-125 mg morning Branch per tablet and 1 tablet in the evening. albuterol 2021-11 Yes [id number] 2{puff} Inhale 2 [facility] 90 1-22 Puffs ity of mcg/actuati 00:00: every 6 [place] as on inhaler 00 (six) Medical hours as Branch needed for Wheezing or Shortness of Breath. ipratropium 2021-11 Yes [id number] .5mg Inhale 2.5 [facility] 0.02 % 1-22 mL every 6 ity of nebulizer 00:00: (six) [place] solution 00 hours as Medical needed for Branch Wheezing or Shortness of Breath. albuterol 2021-11 Yes [id number] 2.5mg Inhale 3 [facility] 2.5 mg /3 1-22 mL every 6 ity of mL (0.083 00:00: (six) [place] %) 00 hours as Medical nebulizer needed for Bran ch solution Wheezing or Shortness of Breath. budesonide- 2021-11 Yes [id number] 2{puff} Inhale 2 [facility] formoteroL 1-22 Puffs in ity o f (SYMBICORT) 00:00: the [place] 80-4.5 00 morning Medical mcg/actuati and 2 Branch on inhaler Puffs in the evening. Miscellaneo 2021-11 Yes [id number] J40: [facility] [place] [facility] 11-27 Brochitis ity of Supply Kit 00:00: - Dispense [place] 00 # 1 Medical Thad Branch Respironic s (okay for alternativ e brand) for nebulizer treatment amoxicillin 2021-11 Yes [id number] 1{tbl} Take 1 [facility] -clavulanat 1-22 tablet by ity of e 00:00: mouth in [place] (AUGMENTIN) 00 the Medical 875-125 mg morning Branch per tablet and 1 tablet in the evening. albuterol 2021-11 Yes [id number] 2{puff} Inhale 2 [facility] 90 1-22 Puffs ity of mcg/actuati 00:00: every 6 [place] as on inhaler 00 (six) Medical hours as Branch needed for Wheezing or Shortness of Breath. ipratropium 2021-11 Yes [id number] .5mg Inhale 2.5 [facility] 0.02 % 1-22 mL every 6 ity of nebulizer 00:00: (six) [place] solution 00 hours as Medical needed for Branch Wheezing or Shortness of Breath. albuterol 2021-11 Yes [id number] 2.5mg Inhale 3 [facility] 2.5 mg /3 1-22 mL every 6 ity of mL (0.083 00:00: (six) [place] %) 00 hours as Medical nebulizer needed for Bran ch solution Wheezing or Shortness of Breath. budesonide- 2021-11 Yes [id number] 2{puff} Inhale 2 [facility] formoteroL 1-22 Puffs in ity o f (SYMBICORT) 00:00: the [place] 80-4.5 00 morning Medical mcg/actuati and 2 Branch on inhaler Puffs in the evening. Miscellaneo 2021-11 Yes [id number] J40: [facility] [place] [facility] 22 Brochitis ity of Supply Kit 00:00: - Dispense [place] 00 # 1 Medical Thad Branch Respironic s (okay for alternativ e brand) for nebulizer treatment amoxicillin 2021-11 Yes [id number] 1{tbl} Take 1 [facility] -clavulanat 1-22 tablet by ity of e 00:00: mouth in [place] (AUGMENTIN) 00 the Medical 875-125 mg morning Branch per tablet and 1 tablet in the evening. albuterol 2021-11 Yes [id number] 2{puff} Inhale 2 [facility] 90 1-22 Puffs ity of mcg/actuati 00:00: every 6 [place] as on inhaler 00 (six) Medical hours as Branch needed for Wheezing or Shortness of Breath. ipratropium 2021-11 Yes [id number] .5mg Inhale 2.5 [facility] 0.02 % 1-22 mL every 6 ity of nebulizer 00:00: (six) [place] solution 00 hours as Medical needed for Branch Wheezing or Shortness of Breath. albuterol 2021-11 Yes [id number] 2.5mg Inhale 3 [facility] 2.5 mg /3 1-22 mL every 6 ity of mL (0.083 00:00: (six) [place] %) 00 hours as Medical nebulizer needed for Bran ch solution Wheezing or Shortness of Breath. budesonide- 2021-11 Yes [id number] 2{puff} Inhale 2 [facility] formoteroL 1-22 Puffs in ity o f (SYMBICORT) 00:00: the [place] 80-4.5 00 morning Medical mcg/actuati and 2 Branch on inhaler Puffs in the evening. Miscellaneo 2021-11 Yes [id number] J40: [facility] 1-22 Brochitis ity of Supply Kit 00:00: - Dispense [place] 00 # 1 Medical Thad Branch Respironic s (okay for alternativ e brand) for nebulizer treatment amoxicillin 2021-11 Yes [id number] 1{tbl} Take 1 [facility] -clavulanat 1-22 tablet by ity of e 00:00: mouth in [place] (AUGMENTIN) 00 the Medical 875-125 mg morning Branch per tablet and 1 tablet in the evening. albuterol 2021-11 Yes [id number] 2{puff} Inhale 2 [facility] 90 1-22 Puffs ity of mcg/actuati 00:00: every 6 [place] as on inhaler 00 (six) Medical hours as Branch needed for Wheezing or Shortness of Breath. ipratropium 2021-11 Yes [id number] .5mg Inhale 2.5 [facility] 0.02 % 1-22 mL every 6 ity of nebulizer 00:00: (six) [place] solution 00 hours as Medical needed for Branch Wheezing or Shortness of Breath. albuterol 2021-11 Yes [id number] 2.5mg Inhale 3 Univers 2.5 mg /3 1-22 mL every 6 ity of mL (0.083 00:00: (six) [place] %) 00 hours as Medical nebulizer needed for Bran ch solution Wheezing or Shortness of Breath. budesonide- 2021-11 Yes [id number] 2{puff} Inhale 2 [facility] formoteroL 1-22 Puffs in ity o f (SYMBICORT) 00:00: the [place] 80-4.5 00 morning Medical mcg/actuati and 2 Branch on inhaler Puffs in the evening. Miscellaneo 2021-11 Yes [id number] J40: [facility] 1-22 Brochitis ity of Supply Kit 00:00: - Dispense [place] 00 # 1 Medical Thad Branch Respironic s (okay for alternativ e brand) for nebulizer treatment amoxicillin 2021-11 Yes [id number] 1{tbl} Take 1 [facility] -clavulanat 1-22 tablet by ity of e 00:00: mouth in [place] (AUGMENTIN) 00 the Medical 875-125 mg morning Branch per tablet and 1 tablet in the evening. albuterol 2021-11 Yes [id number] 2{puff} Inhale 2 [facility] 90 1-22 Puffs ity of mcg/actuati 00:00: every 6 [place] as on inhaler 00 (six) Medical hours as Branch needed for Wheezing or Shortness of Breath. ipratropium 2021-11 Yes [id number] .5mg Inhale 2.5 [facility] 0.02 % 1-22 mL every 6 ity of nebulizer 00:00: (six) [place] solution 00 hours as Medical needed for Branch Wheezing or Shortness of Breath. albuterol 2021-11 Yes [id number] 2.5mg Inhale 3 [facility] 2.5 mg /3 1-22 mL every 6 ity of mL (0.083 00:00: (six) [place] %) 00 hours as Medical nebulizer needed for Bran ch solution Wheezing or Shortness of Breath. budesonide- 2021-11 Yes [id number] 2{puff} Inhale 2 [facility] formoteroL 1-22 Puffs in ity o f (SYMBICORT) 00:00: the [place] 80-4.5 00 morning Medical mcg/actuati and 2 Branch on inhaler Puffs in the evening. Miscellaneo 2021-11 Yes [id number] J40: [facility] [place] [facility] 1-22 Brochitis ity of Supply Kit 00:00: - Dispense [place] 00 # 1 Medical Thad Branch Respironic s (okay for alternativ e brand) for nebulizer treatment amoxicillin 2021-11 Yes [id number] 1{tbl} Take 1 [facility] -clavulanat 1-22 tablet by ity of e 00:00: mouth in [place] (AUGMENTIN) 00 the Medical 875-125 mg morning Branch per tablet and 1 tablet in the evening. albuterol 2021-11 Yes [id number] 2{puff} Inhale 2 [facility] 90 1-22 Puffs ity of mcg/actuati 00:00: every 6 [place] as on inhaler 00 (six) Medical hours as Branch needed for Wheezing or Shortness of Breath. ipratropium 2021-11 Yes [id number] .5mg Inhale 2.5 Univers 0.02 % 1-22 mL every 6 ity of nebulizer 00:00: (six) [place] solution 00 hours as Medical needed for Branch Wheezing or Shortness of Breath. albuterol 2021-11 Yes [id number] 2.5mg Inhale 3 Univers 2.5 mg /3 1-22 mL every 6 ity of mL (0.083 00:00: (six) [place] %) 00 hours as Medical nebulizer needed for Bran ch solution Wheezing or Shortness of Breath. budesonide- 2021-11 Yes [id number] 2{puff} Inhale 2 [facility] formoteroL 1-22 Puffs in ity o f (SYMBICORT) 00:00: the [place] 80-4.5 00 morning Medical mcg/actuati and 2 Branch on inhaler Puffs in the evening. Miscellaneo 2021-11 Yes [id number] J40: [facility] [place] [facility] 1-22 Brochitis ity of Supply Kit 00:00: - Dispense [place] 00 # 1 Medical Thad Branch Respironic s (okay for alternativ e brand) for nebulizer treatment amoxicillin 2021-11 Yes [id number] 1{tbl} Take 1 [facility] -clavulanat 1-22 tablet by ity of e 00:00: mouth in [place] (AUGMENTIN) 00 the Medical 875-125 mg morning Branch per tablet and 1 tablet in the evening. albuterol 2021-11 Yes [id number] 2{puff} Inhale 2 [facility] 90 1-22 Puffs ity of mcg/actuati 00:00: every 6 [place] as on inhaler 00 (six) Medical hours as Branch needed for Wheezing or Shortness of Breath. ipratropium 2021-11 Yes [id number] .5mg Inhale 2.5 Univers 0.02 % 1-22 mL every 6 ity of nebulizer 00:00: (six) [place] solution 00 hours as Medical needed for Branch Wheezing or Shortness of Breath. albuterol 2021-11 Yes [id number] 2.5mg Inhale 3 Univers 2.5 mg /3 1-22 mL every 6 ity of mL (0.083 00:00: (six) [place] %) 00 hours as Medical nebulizer needed for Bran ch solution Wheezing or Shortness of Breath. budesonide- 2021-11 Yes [id number] 2{puff} Inhale 2 [facility] formoteroL 1-22 Puffs in ity o f (SYMBICORT) 00:00: the [place] 80-4.5 00 morning Medical mcg/actuati and 2 Branch on inhaler Puffs in the evening. Miscellaneo 2021-11 Yes [id number] J40: [facility] 1-22 Brochitis ity of Supply Kit 00:00: - Dispense [place] 00 # 1 Medical Thad Branch Respironic s (okay for alternativ e brand) for nebulizer treatment amoxicillin 2021-11 Yes [id number] 1{tbl} Take 1 [facility] -clavulanat 1-22 tablet by ity of e 00:00: mouth in [place] (AUGMENTIN) 00 the Medical 875-125 mg morning Branch per tablet and 1 tablet in the evening. albuterol 2021-11 Yes [id number] 2{puff} Inhale 2 [facility] 90 1-22 Puffs ity of mcg/actuati 00:00: every 6 [place] as on inhaler 00 (six) Medical hours as Branch needed for Wheezing or Shortness of Breath. ipratropium 2021-11 Yes [id number] .5mg Inhale 2.5 Univers 0.02 % 1-22 mL every 6 ity of nebulizer 00:00: (six) [place] solution 00 hours as Medical needed for Branch Wheezing or Shortness of Breath. albuterol 2021-11 Yes [id number] 2.5mg Inhale 3 Univers 2.5 mg /3 1-22 mL every 6 ity of mL (0.083 00:00: (six) [place] %) 00 hours as Medical nebulizer needed for Bran ch solution Wheezing or Shortness of Breath. budesonide- 2021-11 Yes [id number] 2{puff} Inhale 2 [facility] formoteroL 1-22 Puffs in ity o f (SYMBICORT) 00:00: the [place] 80-4.5 00 morning Medical mcg/actuati and 2 Branch on inhaler Puffs in the evening. Miscellaneo 2021-11 Yes [id number] J40: [facility] 1-22 Brochitis ity of Supply Kit 00:00: - Dispense [place] 00 # 1 Medical Thad Branch Respironic s (okay for alternativ e brand) for nebulizer treatment amoxicillin 2021-11 Yes [id number] 1{tbl} Take 1 [facility] -clavulanat 1-22 tablet by ity of e 00:00: mouth in [place] (AUGMENTIN) 00 the Medical 875-125 mg morning Branch per tablet and 1 tablet in the evening. albuterol 2021-11 Yes [id number] 2{puff} Inhale 2 [facility] 90 1-22 Puffs ity of mcg/actuati 00:00: every 6 [place] as on inhaler 00 (six) Medical hours as Branch needed for Wheezing or Shortness of Breath. ipratropium 2021-11 Yes [id number] .5mg Inhale 2.5 Univers 0.02 % 1-22 mL every 6 ity of nebulizer 00:00: (six) [place] solution 00 hours as Medical needed for Branch Wheezing or Shortness of Breath. albuterol 2021-11 Yes [id number] 2.5mg Inhale 3 [facility] 2.5 mg /3 1-22 mL every 6 ity of mL (0.083 00:00: (six) [place] %) 00 hours as Medical nebulizer needed for Bran ch solution Wheezing or Shortness of Breath. budesonide- 2021-11 Yes [id number] 2{puff} Inhale 2 [facility] formoteroL 1-22 Puffs in ity o f (SYMBICORT) 00:00: the [place] 80-4.5 00 morning Medical mcg/actuati and 2 Branch on inhaler Puffs in the evening. Miscellaneo 2021-11 Yes [id number] J40: [facility] 1-22 Brochitis ity of Supply Kit 00:00: - Dispense [place] 00 # 1 Medical Thad Branch Respironic s (okay for alternativ e brand) for nebulizer treatment amoxicillin 2021-11 Yes [id number] 1{tbl} Take 1 [facility] -clavulanat 1-22 tablet by ity of e 00:00: mouth in [place] (AUGMENTIN) 00 the Medical 875-125 mg morning Branch per tablet and 1 tablet in the evening. albuterol 2021-11 Yes [id number] 2{puff} Inhale 2 [facility] 90 1-22 Puffs ity of mcg/actuati 00:00: every 6 [place] as on inhaler 00 (six) Medical hours as Branch needed for Wheezing or Shortness of Breath. ipratropium 2021-11 Yes [id number] .5mg Inhale 2.5 Univers 0.02 % 1-22 mL every 6 ity of nebulizer 00:00: (six) [place] solution 00 hours as Medical needed for Branch Wheezing or Shortness of Breath. albuterol 2021-11 Yes [id number] 2.5mg Inhale 3 Univers 2.5 mg /3 1-22 mL every 6 ity of mL (0.083 00:00: (six) [place] %) 00 hours as Medical nebulizer needed for Bran ch solution Wheezing or Shortness of Breath. budesonide- 2021-11 Yes [id number] 2{puff} Inhale 2 [facility] formoteroL 1-22 Puffs in ity o f (SYMBICORT) 00:00: the [place] 80-4.5 00 morning Medical mcg/actuati and 2 Branch on inhaler Puffs in the evening. Miscellaneo 2021-11 Yes [id number] J40: [facility] [place] [facility] 11-27 Brochitis ity of Supply Kit 00:00: - Dispense [place] 00 # 1 Medical Thad Branch Respironic s (okay for alternativ e brand) for nebulizer treatment amoxicillin 2021-11 Yes [id number] 1{tbl} Take 1 [facility] -clavulanat 1-22 tablet by ity of e 00:00: mouth in [place] (AUGMENTIN) 00 the Medical 875-125 mg morning Branch per tablet and 1 tablet in the evening. albuterol 2021-11 Yes [id number] 2{puff} Inhale 2 [facility] 90 1-22 Puffs ity of mcg/actuati 00:00: every 6 [place] as on inhaler 00 (six) Medical hours as Branch needed for Wheezing or Shortness of Breath. ipratropium 2021-11 Yes [id number] .5mg Inhale 2.5 Univers 0.02 % 1-22 mL every 6 ity of nebulizer 00:00: (six) [place] solution 00 hours as Medical needed for Branch Wheezing or Shortness of Breath. albuterol 2021-11 Yes [id number] 2.5mg Inhale 3 Univers 2.5 mg /3 1-22 mL every 6 ity of mL (0.083 00:00: (six) [place] %) 00 hours as Medical nebulizer needed for Bran ch solution Wheezing or Shortness of Breath. budesonide- 2021-11 Yes [id number] 2{puff} Inhale 2 [facility] formoteroL 1-22 Puffs in ity o f (SYMBICORT) 00:00: the [place] 80-4.5 00 morning Medical mcg/actuati and 2 Branch on inhaler Puffs in the evening. Miscellaneo 2021-11 Yes [id number] J40: [facility] [place] [facility] 22 Brochitis ity of Supply Kit 00:00: - Dispense [place] 00 # 1 Medical Thad Branch Respironic s (okay for alternativ e brand) for nebulizer treatment amoxicillin 2021-11 Yes [id number] 1{tbl} Take 1 [facility] -clavulanat 1-22 tablet by ity of e 00:00: mouth in [place] (AUGMENTIN) 00 the Medical 875-125 mg morning Branch per tablet and 1 tablet in the evening. albuterol 2021-11 Yes [id number] 2{puff} Inhale 2 [facility] 90 1-22 Puffs ity of mcg/actuati 00:00: every 6 [place] as on inhaler 00 (six) Medical hours as Branch needed for Wheezing or Shortness of Breath. ipratropium 2021-11 Yes [id number] .5mg Inhale 2.5 [facility] 0.02 % 1-22 mL every 6 ity of nebulizer 00:00: (six) [place] solution 00 hours as Medical needed for Branch Wheezing or Shortness of Breath. albuterol 2021-11 Yes [id number] 2.5mg Inhale 3 [facility] 2.5 mg /3 1-22 mL every 6 ity of mL (0.083 00:00: (six) [place] %) 00 hours as Medical nebulizer needed for Bran ch solution Wheezing or Shortness of Breath. budesonide- 2021-11 Yes [id number] 2{puff} Inhale 2 [facility] formoteroL 1-22 Puffs in ity o f (SYMBICORT) 00:00: the [place] 80-4.5 00 morning Medical mcg/actuati and 2 Branch on inhaler Puffs in the evening. Miscellaneo 2021-11 Yes [id number] J40: [facility] 1-22 Brochitis ity of Supply Kit 00:00: - Dispense [place] 00 # 1 Medical Thad Branch Respironic s (okay for alternativ e brand) for nebulizer treatment amoxicillin 2021-11 Yes [id number] 1{tbl} Take 1 [facility] -clavulanat 1-22 tablet by ity of e 00:00: mouth in [place] (AUGMENTIN) 00 the Medical 875-125 mg morning Branch per tablet and 1 tablet in the evening. albuterol 2021-11 Yes [id number] 2{puff} Inhale 2 [facility] 90 1-22 Puffs ity of mcg/actuati 00:00: every 6 [place] as on inhaler 00 (six) Medical hours as Branch needed for Wheezing or Shortness of Breath. ipratropium 2021-11 Yes [id number] .5mg Inhale 2.5 [facility] 0.02 % 1-22 mL every 6 ity of nebulizer 00:00: (six) [place] solution 00 hours as Medical needed for Branch Wheezing or Shortness of Breath. albuterol 2021-11 Yes [id number] 2.5mg Inhale 3 [facility] 2.5 mg /3 1-22 mL every 6 ity of mL (0.083 00:00: (six) [place] %) 00 hours as Medical nebulizer needed for Bran ch solution Wheezing or Shortness of Breath. budesonide- 2021-11 Yes [id number] 2{puff} Inhale 2 [facility] formoteroL 1-22 Puffs in ity o f (SYMBICORT) 00:00: the [place] 80-4.5 00 morning Medical mcg/actuati and 2 Branch on inhaler Puffs in the evening. Miscellaneo 2021-11 Yes [id number] J40: [facility] 1-22 Brochitis ity of Supply Kit 00:00: - Dispense [place] 00 # 1 Medical Thad Branch Respironic s (okay for alternativ e brand) for nebulizer treatment amoxicillin 2021-11 Yes [id number] 1{tbl} Take 1 [facility] -clavulanat 1-22 tablet by ity of e 00:00: mouth in [place] (AUGMENTIN) 00 the Medical 875-125 mg morning Branch per tablet and 1 tablet in the evening. albuterol 2021-11 Yes [id number] 2{puff} Inhale 2 [facility] 90 1-22 Puffs ity of mcg/actuati 00:00: every 6 [place] as on inhaler 00 (six) Medical hours as Branch needed for Wheezing or Shortness of Breath. ipratropium 2021-11 Yes [id number] .5mg Inhale 2.5 [facility] 0.02 % 1-22 mL every 6 ity of nebulizer 00:00: (six) [place] solution 00 hours as Medical needed for Branch Wheezing or Shortness of Breath. albuterol 2021-11 Yes [id number] 2.5mg Inhale 3 [facility] 2.5 mg /3 1-22 mL every 6 ity of mL (0.083 00:00: (six) [place] %) 00 hours as Medical nebulizer needed for Bran ch solution Wheezing or Shortness of Breath. budesonide- 2021-11 Yes [id number] 2{puff} Inhale 2 [facility] formoteroL 1-22 Puffs in ity o f (SYMBICORT) 00:00: the [place] 80-4.5 00 morning Medical mcg/actuati and 2 Branch on inhaler Puffs in the evening. Miscellaneo 2021-11 Yes [id number] J40: [facility] [place] [facility] 11-27 Brochitis ity of Supply Kit 00:00: - Dis[place]ense [place] 00 # 1 Medical Thad Branch Respironic s (okay for alternativ e brand) for nebulizer treatment amoxicillin 2021-11 Yes [id number] 1{tbl} Take 1 [facility] -clavulanat 1-22 tablet by ity of e 00:00: mouth in [place] (AUGMENTIN) 00 the Medical 875-125 mg morning Branch per tablet and 1 tablet in the evening. albuterol 2021-11 Yes [id number] 2{puff} Inhale 2 [facility] 90 1-22 Puffs ity of mcg/actuati 00:00: every 6 [place] as on inhaler 00 (six) Medical hours as Branch needed for Wheezing or Shortness of Breath. ipratropium 2021-11 Yes [id number] .5mg Inhale 2.5 [facility] 0.02 % 1-22 mL every 6 ity of nebulizer 00:00: (six) [place] solution 00 hours as Medical needed for Branch Wheezing or Shortness of Breath. albuterol 2021-11 Yes [id number] 2.5mg Inhale 3 [facility] 2.5 mg /3 1-22 mL every 6 ity of mL (0.083 00:00: (six) [place] %) 00 hours as Medical nebulizer needed for Bran ch solution Wheezing or Shortness of Breath. budesonide- 2021-11 Yes [id number] 2{puff} Inhale 2 [facility] formoteroL 1-22 Puffs in ity o f (SYMBICORT) 00:00: the [place] 80-4.5 00 morning Medical mcg/actuati and 2 Branch on inhaler Puffs in the evening. Miscellaneo 2021-11 Yes [id number] J40: [facility] [place] [facility] -22 Brochitis ity of Supply Kit 00:00: [place] 00 # 1 Medical Thad Branch Respironic s (okay for alternativ e brand) for nebulizer treatment amoxicillin 2021-11 Yes [id number] 1{tbl} Take 1 [facility] -clavulanat 1-22 tablet by ity of e 00:00: mouth in [place] (AUGMENTIN) 00 the Medical 875-125 mg morning Branch per tablet and 1 tablet in the evening. albuterol 2021-11 Yes [id number] 2{puff} Inhale 2 [facility] 90 1-22 Puffs ity of mcg/actuati 00:00: every 6 [place] as on inhaler 00 (six) Medical hours as Branch needed for Wheezing or Shortness of Breath. ipratropium 2021-11 Yes [id number] .5mg Inhale 2.5 [facility] 0.02 % 1-22 mL every 6 ity of nebulizer 00:00: (six) [place] solution 00 hours as Medical needed for Branch Wheezing or Shortness of Breath. albuterol 2021-11 Yes [id number] 2.5mg Inhale 3 [facility] 2.5 mg /3 1-22 mL every 6 ity of mL (0.083 00:00: (six) [place] %) 00 hours as Medical nebulizer needed for Bran ch solution Wheezing or Shortness of Breath. budesonide- 2021-11 Yes [id number] 2{puff} Inhale 2 [facility] formoteroL 1-22 Puffs in ity o f (SYMBICORT) 00:00: the [place] 80-4.5 00 morning Medical mcg/actuati and 2 Branch on inhaler Puffs in the evening. Miscellaneo 2021-11 Yes [id number] J40: [facility] 1-22 Brochitis ity of Supply Kit 00:00: - [place] 00 # 1 Medical Thad Branch Respironic s (okay for alternativ e brand) for nebulizer treatment amoxicillin 2021-11 Yes [id number] 1{tbl} Take 1 [facility] -clavulanat 1-22 tablet by ity of e 00:00: mouth in [place] (AUGMENTIN) 00 the Medical 875-125 mg morning Branch per tablet and 1 tablet in the evening. albuterol 2021-11 Yes [id number] 2{puff} Inhale 2 [facility] 90 1-22 Puffs ity of mcg/actuati 00:00: every 6 [place] as on inhaler 00 (six) Medical hours as Branch needed for Wheezing or Shortness of Breath. ipratropium 2021-11 Yes [id number] .5mg Inhale 2.5 [facility] 0.02 % 1-22 mL every 6 ity of nebulizer 00:00: (six) [place] solution 00 hours as Medical needed for Branch Wheezing or Shortness of Breath. albuterol 2021-11 Yes [id number] 2.5mg Inhale 3 [facility] 2.5 mg /3 1-22 mL every 6 ity of mL (0.083 00:00: (six) [place] %) 00 hours as Medical nebulizer needed for Bran ch solution Wheezing or Shortness of Breath. budesonide- 2021-11 Yes [id number] 2{puff} Inhale 2 [facility] formoteroL 1-22 Puffs in ity o f (SYMBICORT) 00:00: the [place] 80-4.5 00 morning Medical mcg/actuati and 2 Branch on inhaler Puffs in the evening. Miscellaneo 2021-11 Yes [id number] J40: [facility] 1-22 Brochitis ity of Supply Kit 00:00: - [place] 00 # 1 Medical Thad Branch Respironic s (okay for alternativ e brand) for nebulizer treatment amoxicillin 2021-11 Yes [id number] 1{tbl} Take 1 [facility] -clavulanat 1-22 tablet by ity of e 00:00: mouth in [place] (AUGMENTIN) 00 the Medical 875-125 mg morning Branch per tablet and 1 tablet in the evening. albuterol 2021-11 Yes [id number] 2{puff} Inhale 2 [facility] 90 1-22 Puffs ity of mcg/actuati 00:00: every 6 [place] as on inhaler 00 (six) Medical hours as Branch needed for Wheezing or Shortness of Breath. ipratropium 2021-11 Yes [id number] .5mg Inhale 2.5 [facility] 0.02 % 1-22 mL every 6 ity of nebulizer 00:00: (six) [place] solution 00 hours as Medical needed for Branch Wheezing or Shortness of Breath. albuterol 2021-11 Yes [id number] 2.5mg Inhale 3 [facility] 2.5 mg /3 1-22 mL every 6 ity of mL (0.083 00:00: (six) [place] %) 00 hours as Medical nebulizer needed for Bran ch solution Wheezing or Shortness of Breath. budesonide- 2021-11 Yes [id number] 2{puff} Inhale 2 [facility] formoteroL 1-22 Puffs in ity o f (SYMBICORT) 00:00: the [place] 80-4.5 00 morning Medical mcg/actuati and 2 Branch on inhaler Puffs in the evening. Miscellaneo 2021-11 Yes [id number] J40: [facility] [place] [facility] 1-22 Brochitis ity of Supply Kit 00:00: - [place] 00 # 1 Medical Thad Branch Respironic s (okay for alternativ e brand) for nebulizer treatment amoxicillin 2021-11 Yes [id number] 1{tbl} Take 1 [facility] -clavulanat 1-22 tablet by ity of e 00:00: mouth in [place] (AUGMENTIN) 00 the Medical 875-125 mg morning Branch per tablet and 1 tablet in the evening. albuterol 2021-11 Yes [id number] 2{puff} Inhale 2 [facility] 90 1-22 Puffs ity of mcg/actuati 00:00: every 6 [place] as on inhaler 00 (six) Medical hours as Branch needed for Wheezing or Shortness of Breath. ipratropium 2021-11 Yes [id number] .5mg Inhale 2.5 [facility] 0.02 % 1-22 mL every 6 ity of nebulizer 00:00: (six) [place] solution 00 hours as Medical needed for Branch Wheezing or Shortness of Breath. albuterol 2021-11 Yes [id number] 2.5mg Inhale 3 [facility] 2.5 mg /3 1-22 mL every 6 ity of mL (0.083 00:00: (six) [place] %) 00 hours as Medical nebulizer needed for Bran ch solution Wheezing or Shortness of Breath. budesonide- 2021-11 Yes [id number] 2{puff} Inhale 2 [facility] formoteroL 1-22 Puffs in ity o f (SYMBICORT) 00:00: the [place] 80-4.5 00 morning Medical mcg/actuati and 2 Branch on inhaler Puffs in the evening. Miscellaneo 2021-11 Yes [id number] J40: [facility] [place] [facility] 1-22 Brochitis ity of Supply Kit 00:00: - [place] 00 # 1 Medical Thad Branch Respironic s (okay for alternativ e brand) for nebulizer treatment amoxicillin 2021-11 Yes [id number] 1{tbl} Take 1 [facility] -clavulanat 1-22 tablet by ity of e 00:00: mouth in [place] (AUGMENTIN) 00 the Medical 875-125 mg morning Branch per tablet and 1 tablet in the evening. albuterol 2021-11 Yes [id number] 2{puff} Inhale 2 [facility] 90 1-22 Puffs ity of mcg/actuati 00:00: every 6 [place] as on inhaler 00 (six) Medical hours as Branch needed for Wheezing or Shortness of Breath. ipratropium 2021-11 Yes [id number] .5mg Inhale 2.5 [facility] 0.02 % 1-22 mL every 6 ity of nebulizer 00:00: (six) [place] solution 00 hours as Medical needed for Branch Wheezing or Shortness of Breath. albuterol 2021-11 Yes [id number] 2.5mg Inhale 3 [facility] 2.5 mg /3 1-22 mL every 6 ity of mL (0.083 00:00: (six) [place] %) 00 hours as Medical nebulizer needed for Bran ch solution Wheezing or Shortness of Breath. budesonide- 2021-11 Yes [id number] 2{puff} Inhale 2 [facility] formoteroL 1-22 Puffs in ity o f (SYMBICORT) 00:00: the [place] 80-4.5 00 morning Medical mcg/actuati and 2 Branch on inhaler Puffs in the evening. Miscellaneo 2021-11 Yes [id number] J40: [facility] 1-22 Brochitis ity of Supply Kit 00:00: - Dispense [place] 00 # 1 Medical Thad Branch Respironic s (okay for alternativ e brand) for nebulizer treatment amoxicillin 2021-11 Yes [id number] 1{tbl} Take 1 [facility] -clavulanat 1-22 tablet by ity of e 00:00: mouth in [place] (AUGMENTIN) 00 the Medical 875-125 mg morning Branch per tablet and 1 tablet in the evening. albuterol 2021-11 Yes [id number] 2{puff} Inhale 2 [facility] 90 1-22 Puffs ity of mcg/actuati 00:00: every 6 [place] as on inhaler 00 (six) Medical hours as Branch needed for Wheezing or Shortness of Breath. ipratropium 2021-11 Yes [id number] .5mg Inhale 2.5 [facility] 0.02 % 1-22 mL every 6 ity of nebulizer 00:00: (six) [place] solution 00 hours as Medical needed for Branch Wheezing or Shortness of Breath. albuterol 2021-11 Yes [id number] 2.5mg Inhale 3 [facility] 2.5 mg /3 1-22 mL every 6 ity of mL (0.083 00:00: (six) [place] %) 00 hours as Medical nebulizer needed for Bran ch solution Wheezing or Shortness of Breath. budesonide- 2021-11 Yes [id number] 2{puff} Inhale 2 [facility] formoteroL 1-22 Puffs in ity o f (SYMBICORT) 00:00: the [place] 80-4.5 00 morning Medical mcg/actuati and 2 Branch on inhaler Puffs in the evening. Miscellaneo 2021-11 Yes [id number] J40: [facility] 1-22 Brochitis ity of Supply Kit 00:00: - Dispense [place] 00 # 1 Medical Thad Branch Respironic s (okay for alternativ e brand) for nebulizer treatment amoxicillin 2021-11 Yes [id number] 1{tbl} Take 1 [facility] -clavulanat 1-22 tablet by ity of e 00:00: mouth in [place] (AUGMENTIN) 00 the Medical 875-125 mg morning Branch per tablet and 1 tablet in the evening. albuterol 2021-11 Yes [id number] 2{puff} Inhale 2 [facility] 90 1-22 Puffs ity of mcg/actuati 00:00: every 6 [place] as on inhaler 00 (six) Medical hours as Branch needed for Wheezing or Shortness of Breath. ipratropium 2021-11 Yes [id number] .5mg Inhale 2.5 [facility] 0.02 % 1-22 mL every 6 ity of nebulizer 00:00: (six) [place] solution 00 hours as Medical needed for Branch Wheezing or Shortness of Breath. albuterol 2021-11 Yes [id number] 2.5mg Inhale 3 [facility] 2.5 mg /3 1-22 mL every 6 ity of mL (0.083 00:00: (six) [place] %) 00 hours as Medical nebulizer needed for Bran ch solution Wheezing or Shortness of Breath. budesonide- 2021-11 Yes [id number] 2{puff} Inhale 2 [facility] formoteroL 1-22 Puffs in ity o f (SYMBICORT) 00:00: the [place] 80-4.5 00 morning Medical mcg/actuati and 2 Branch on inhaler Puffs in the evening. Miscellaneo 2021-11 Yes [id number] J40: [facility] 1-22 Brochitis ity of Supply Kit 00:00: - Dispense [place] 00 # 1 Medical Thad Branch Respironic s (okay for alternativ e brand) for nebulizer treatment amoxicillin 2021-11 Yes [id number] 1{tbl} Take 1 [facility] -clavulanat 1-22 tablet by ity of e 00:00: mouth in [place] (AUGMENTIN) 00 the Medical 875-125 mg morning Branch per tablet and 1 tablet in the evening. albuterol 2021-11 Yes [id number] 2{puff} Inhale 2 [facility] 90 1-22 Puffs ity of mcg/actuati 00:00: every 6 [place] as on inhaler 00 (six) Medical hours as Branch needed for Wheezing or Shortness of Breath. ipratropium 2021-11 Yes [id number] .5mg Inhale 2.5 [facility] 0.02 % 1-22 mL every 6 ity of nebulizer 00:00: (six) [place] solution 00 hours as Medical needed for Branch Wheezing or Shortness of Breath. albuterol 2021-11 Yes [id number] 2.5mg Inhale 3 [facility] 2.5 mg /3 1-22 mL every 6 ity of mL (0.083 00:00: (six) [place] %) 00 hours as Medical nebulizer needed for Bran ch solution Wheezing or Shortness of Breath. budesonide- 2021-11 Yes [id number] 2{puff} Inhale 2 [facility] formoteroL 1-22 Puffs in ity o f (SYMBICORT) 00:00: the [place] 80-4.5 00 morning Medical mcg/actuati and 2 Branch on inhaler Puffs in the evening. Miscellaneo 2021-11 Yes [id number] J40: [facility] [place] [facility] 11-27 Brochitis ity of Supply Kit 00:00: - Dispense [place] 00 # 1 Medical Thad Branch Respironic s (okay for alternativ e brand) for nebulizer treatment amoxicillin 2021-11 Yes [id number] 1{tbl} Take 1 [facility] -clavulanat 1-22 tablet by ity of e 00:00: mouth in [place] (AUGMENTIN) 00 the Medical 875-125 mg morning Branch per tablet and 1 tablet in the evening. albuterol 2021-11 Yes [id number] 2{puff} Inhale 2 [facility] 90 1-22 Puffs ity of mcg/actuati 00:00: every 6 [place] as on inhaler 00 (six) Medical hours as Branch needed for Wheezing or Shortness of Breath. ipratropium 2021-11 Yes [id number] .5mg Inhale 2.5 Univers 0.02 % 1-22 mL every 6 ity of nebulizer 00:00: (six) [place] solution 00 hours as Medical needed for Branch Wheezing or Shortness of Breath. albuterol 2021-11 Yes [id number] 2.5mg Inhale 3 [facility] 2.5 mg /3 1-22 mL every 6 ity of mL (0.083 00:00: (six) [place] %) 00 hours as Medical nebulizer needed for Bran ch solution Wheezing or Shortness of Breath. budesonide- 2021-11 Yes [id number] 2{puff} Inhale 2 [facility] formoteroL 1-22 Puffs in ity o f (SYMBICORT) 00:00: the [place] 80-4.5 00 morning Medical mcg/actuati and 2 Branch on inhaler Puffs in the evening. Miscellaneo 2021-11 Yes [id number] J40: [facility] [place] [facility] 22 Brochitis ity of Supply Kit 00:00: - [place]pense [place] 00 # 1 Medical Thad Branch Respironic s (okay for alternativ e brand) for nebulizer treatment amoxicillin 2021-11 Yes [id number] 1{tbl} Take 1 [facility] -clavulanat 1-22 tablet by ity of e 00:00: mouth in [place] (AUGMENTIN) 00 the Medical 875-125 mg morning Branch per tablet and 1 tablet in the evening. albuterol 2021-11 Yes [id number] 2{puff} Inhale 2 [facility] 90 1-22 Puffs ity of mcg/actuati 00:00: every 6 [place] as on inhaler 00 (six) Medical hours as Branch needed for Wheezing or Shortness of Breath. ipratropium 2021-11 Yes [id number] .5mg Inhale 2.5 Univers 0.02 % 1-22 mL every 6 ity of nebulizer 00:00: (six) [place] solution 00 hours as Medical needed for Branch Wheezing or Shortness of Breath. albuterol 2021-11 Yes [id number] 2.5mg Inhale 3 Univers 2.5 mg /3 1-22 mL every 6 ity of mL (0.083 00:00: (six) [place] %) 00 hours as Medical nebulizer needed for Bran ch solution Wheezing or Shortness of Breath. budesonide- 2021-11 Yes [id number] 2{puff} Inhale 2 [facility] formoteroL 1-22 Puffs in ity o f (SYMBICORT) 00:00: the [place] 80-4.5 00 morning Medical mcg/actuati and 2 Branch on inhaler Puffs in the evening. Miscellaneo 2021-11 Yes [id number] J40: [facility] 1-22 Brochitis ity of Supply Kit 00:00: - Dispense [place] 00 # 1 Medical Thad Branch Respironic s (okay for alternativ e brand) for nebulizer treatment amoxicillin 2021-11 Yes [id number] 1{tbl} Take 1 [facility] -clavulanat 1-22 tablet by ity of e 00:00: mouth in [place] (AUGMENTIN) 00 the Medical 875-125 mg morning Branch per tablet and 1 tablet in the evening. albuterol 2021-11 Yes [id number] 2{puff} Inhale 2 [facility] 90 1-22 Puffs ity of mcg/actuati 00:00: every 6 [place] as on inhaler 00 (six) Medical hours as Branch needed for Wheezing or Shortness of Breath. ipratropium 2021-11 Yes [id number] .5mg Inhale 2.5 Univers 0.02 % 1-22 mL every 6 ity of nebulizer 00:00: (six) [place] solution 00 hours as Medical needed for Branch Wheezing or Shortness of Breath. albuterol 2021-11 Yes [id number] 2.5mg Inhale 3 [facility] 2.5 mg /3 1-22 mL every 6 ity of mL (0.083 00:00: (six) [place] %) 00 hours as Medical nebulizer needed for Bran ch solution Wheezing or Shortness of Breath. budesonide- 2021-11 Yes [id number] 2{puff} Inhale 2 [facility] formoteroL 1-22 Puffs in ity o f (SYMBICORT) 00:00: the [place] 80-4.5 00 morning Medical mcg/actuati and 2 Branch on inhaler Puffs in the evening. Miscellaneo 2021-11 Yes [id number] J40: [facility] 1-22 Brochitis ity of Supply Kit 00:00: - Dispense [place] 00 # 1 Medical Thad Branch Respironic s (okay for alternativ e brand) for nebulizer treatment amoxicillin 2021-11 Yes [id number] 1{tbl} Take 1 [facility] -clavulanat 1-22 tablet by ity of e 00:00: mouth in [place] (AUGMENTIN) 00 the Medical 875-125 mg morning Branch per tablet and 1 tablet in the evening. albuterol 2021-11 Yes [id number] 2{puff} Inhale 2 [facility] 90 1-22 Puffs ity of mcg/actuati 00:00: every 6 [place] as on inhaler 00 (six) Medical hours as Branch needed for Wheezing or Shortness of Breath. ipratropium 2021-11 Yes [id number] .5mg Inhale 2.5 Univers 0.02 % 1-22 mL every 6 ity of nebulizer 00:00: (six) [place] solution 00 hours as Medical needed for Branch Wheezing or Shortness of Breath. albuterol 2021-11 Yes [id number] 2.5mg Inhale 3 Univers 2.5 mg /3 1-22 mL every 6 ity of mL (0.083 00:00: (six) [place] %) 00 hours as Medical nebulizer needed for Bran ch solution Wheezing or Shortness of Breath. budesonide- 2021-11 Yes [id number] 2{puff} Inhale 2 [facility] formoteroL 1-22 Puffs in ity o f (SYMBICORT) 00:00: the [place] 80-4.5 00 morning Medical mcg/actuati and 2 Branch on inhaler Puffs in the evening. Miscellaneo 2021-11 Yes [id number] J40: [facility] [place] [facility] -22 Brochitis ity of Supply Kit 00:00: - Dispense [place] 00 # 1 Medical Thad Branch Respironic s (okay for alternativ e brand) for nebulizer treatment amoxicillin 2021-11 Yes [id number] 1{tbl} Take 1 [facility] -clavulanat 1-22 tablet by ity of e 00:00: mouth in [place] (AUGMENTIN) 00 the Medical 875-125 mg morning Branch per tablet and 1 tablet in the evening. albuterol 2021-11 Yes [id number] 2{puff} Inhale 2 [facility] 90 1-22 Puffs ity of mcg/actuati 00:00: every 6 [place] as on inhaler 00 (six) Medical hours as Branch needed for Wheezing or Shortness of Breath. ipratropium 2021-11 Yes [id number] .5mg Inhale 2.5 Univers 0.02 % 1-22 mL every 6 ity of nebulizer 00:00: (six) [place] solution 00 hours as Medical needed for Branch Wheezing or Shortness of Breath. albuterol 2021-11 Yes [id number] 2.5mg Inhale 3 Univers 2.5 mg /3 1-22 mL every 6 ity of mL (0.083 00:00: (six) [place] %) 00 hours as Medical nebulizer needed for Bran ch solution Wheezing or Shortness of Breath. budesonide- 2021-11 Yes [id number] 2{puff} Inhale 2 [facility] formoteroL 1-22 Puffs in ity o f (SYMBICORT) 00:00: the [place] 80-4.5 00 morning Medical mcg/actuati and 2 Branch on inhaler Puffs in the evening. Miscellaneo 2021-11 Yes [id number] J40: [facility] [place] [facility] 1-22 Brochitis ity of Supply Kit 00:00: - Dispense [place] 00 # 1 Medical Thad Branch Respironic s (okay for alternativ e brand) for nebulizer treatment amoxicillin 2021-11 Yes [id number] 1{tbl} Take 1 [facility] -clavulanat 1-22 tablet by ity of e 00:00: mouth in [place] (AUGMENTIN) 00 the Medical 875-125 mg morning Branch per tablet and 1 tablet in the evening. albuterol 2021-11 Yes [id number] 2{puff} Inhale 2 [facility] 90 1-22 Puffs ity of mcg/actuati 00:00: every 6 [place] as on inhaler 00 (six) Medical hours as Branch needed for Wheezing or Shortness of Breath. ipratropium 2021-11 Yes [id number] .5mg Inhale 2.5 Univers 0.02 % 1-22 mL every 6 ity of nebulizer 00:00: (six) [place] solution 00 hours as Medical needed for Branch Wheezing or Shortness of Breath. albuterol 2021-11 Yes [id number] 2.5mg Inhale 3 [facility] 2.5 mg /3 1-22 mL every 6 ity of mL (0.083 00:00: (six) [place] %) 00 hours as Medical nebulizer needed for Bran ch solution Wheezing or Shortness of Breath. budesonide- 2021-11 Yes [id number] 2{puff} Inhale 2 [facility] formoteroL 1-22 Puffs in ity o f (SYMBICORT) 00:00: the [place] 80-4.5 00 morning Medical mcg/actuati and 2 Branch on inhaler Puffs in the evening. Miscellaneo 2021-11 Yes [id number] J40: [facility] 1-22 Brochitis ity of Supply Kit 00:00: - Dispense [place] 00 # 1 Medical Thad Branch Respironic s (okay for alternativ e brand) for nebulizer treatment amoxicillin 2021-11 Yes [id number] 1{tbl} Take 1 [facility] -clavulanat 1-22 tablet by ity of e 00:00: mouth in [place] (AUGMENTIN) 00 the Medical 875-125 mg morning Branch per tablet and 1 tablet in the evening. albuterol 2021-11 Yes [id number] 2{puff} Inhale 2 [facility] 90 1-22 Puffs ity of mcg/actuati 00:00: every 6 [place] as on inhaler 00 (six) Medical hours as Branch needed for Wheezing or Shortness of Breath. ipratropium 2021-11 Yes [id number] .5mg Inhale 2.5 Univers 0.02 % 1-22 mL every 6 ity of nebulizer 00:00: (six) [place] solution 00 hours as Medical needed for Branch Wheezing or Shortness of Breath. albuterol 2021-11 Yes [id number] 2.5mg Inhale 3 [facility] 2.5 mg /3 1-22 mL every 6 ity of mL (0.083 00:00: (six) [place] %) 00 hours as Medical nebulizer needed for Bran ch solution Wheezing or Shortness of Breath. budesonide- 2021-11 Yes [id number] 2{puff} Inhale 2 [facility] formoteroL 1-22 Puffs in ity o f (SYMBICORT) 00:00: the [place] 80-4.5 00 morning Medical mcg/actuati and 2 Branch on inhaler Puffs in the evening. Miscellaneo 2021-11 Yes [id number] J40: [facility] 1-22 Brochitis ity of Supply Kit 00:00: - Dispense [place] 00 # 1 Medical Thad Branch Respironic s (okay for alternativ e brand) for nebulizer treatment amoxicillin 2021-11 Yes [id number] 1{tbl} Take 1 [facility] -clavulanat 1-22 tablet by ity of e 00:00: mouth in [place] (AUGMENTIN) 00 the Medical 875-125 mg morning Branch per tablet and 1 tablet in the evening. albuterol 2021-11 Yes [id number] 2{puff} Inhale 2 [facility] 90 1-22 Puffs ity of mcg/actuati 00:00: every 6 [place] as on inhaler 00 (six) Medical hours as Branch needed for Wheezing or Shortness of Breath. ipratropium 2021-11 Yes [id number] .5mg Inhale 2.5 [facility] 0.02 % 1-22 mL every 6 ity of nebulizer 00:00: (six) [place] solution 00 hours as Medical needed for Branch Wheezing or Shortness of Breath. albuterol 2021-11 Yes [id number] 2.5mg Inhale 3 [facility] 2.5 mg /3 1-22 mL every 6 ity of mL (0.083 00:00: (six) [place] %) 00 hours as Medical nebulizer needed for Bran ch solution Wheezing or Shortness of Breath. budesonide- 2021-11 Yes [id number] 2{puff} Inhale 2 [facility] formoteroL 1-22 Puffs in ity o f (SYMBICORT) 00:00: the [place] 80-4.5 00 morning Medical mcg/actuati and 2 Branch on inhaler Puffs in the evening. Miscellaneo 2021-11 Yes [id number] J40: [facility] [place] [facility] 1-22 Brochitis ity of Supply Kit 00:00: - Dispense [place] 00 # 1 Medical Thad Branch Respironic s (okay for alternativ e brand) for nebulizer treatment amoxicillin 2021-11 Yes [id number] 1{tbl} Take 1 [facility] -clavulanat 1-22 tablet by ity of e 00:00: mouth in [place] (AUGMENTIN) 00 the Medical 875-125 mg morning Branch per tablet and 1 tablet in the evening. albuterol 2021-11 Yes [id number] 2{puff} Inhale 2 [facility] 90 1-22 Puffs ity of mcg/actuati 00:00: every 6 [place] as on inhaler 00 (six) Medical hours as Branch needed for Wheezing or Shortness of Breath. ipratropium 2021-11 Yes [id number] .5mg Inhale 2.5 [facility] 0.02 % 1-22 mL every 6 ity of nebulizer 00:00: (six) [place] solution 00 hours as Medical needed for Branch Wheezing or Shortness of Breath. albuterol 2021-11 Yes [id number] 2.5mg Inhale 3 [facility] 2.5 mg /3 1-22 mL every 6 ity of mL (0.083 00:00: (six) [place] %) 00 hours as Medical nebulizer needed for Bran ch solution Wheezing or Shortness of Breath. budesonide- 2021-11 Yes [id number] 2{puff} Inhale 2 [facility] formoteroL 1-22 Puffs in ity o f (SYMBICORT) 00:00: the [place] 80-4.5 00 morning Medical mcg/actuati and 2 Branch on inhaler Puffs in the evening. Miscellaneo 2021-11 Yes [id number] J40: [facility] [place] [facility] 1-22 Brochitis ity of Supply Kit 00:00: - Dispense [place] 00 # 1 Medical Thad Branch Respironic s (okay for alternativ e brand) for nebulizer treatment amoxicillin 2021-11 Yes [id number] 1{tbl} Take 1 [facility] -clavulanat 1-22 tablet by ity of e 00:00: mouth in [place] (AUGMENTIN) 00 the Medical 875-125 mg morning Branch per tablet and 1 tablet in the evening. albuterol 2021-11 Yes [id number] 2{puff} Inhale 2 [facility] 90 1-22 Puffs ity of mcg/actuati 00:00: every 6 [place] as on inhaler 00 (six) Medical hours as Branch needed for Wheezing or Shortness of Breath. ipratropium 2021-11 Yes [id number] .5mg Inhale 2.5 [facility] 0.02 % 1-22 mL every 6 ity of nebulizer 00:00: (six) [place] solution 00 hours as Medical needed for Branch Wheezing or Shortness of Breath. albuterol 2021-11 Yes [id number] 2.5mg Inhale 3 [facility] 2.5 mg /3 1-22 mL every 6 ity of mL (0.083 00:00: (six) [place] %) 00 hours as Medical nebulizer needed for Bran ch solution Wheezing or Shortness of Breath. budesonide- 2021-11 Yes [id number] 2{puff} Inhale 2 [facility] formoteroL 1-22 Puffs in ity o f (SYMBICORT) 00:00: the [place] 80-4.5 00 morning Medical mcg/actuati and 2 Branch on inhaler Puffs in the evening. Miscellaneo 2021-11 Yes [id number] J40: [facility] 1-22 Brochitis ity of Supply Kit 00:00: - Dispense [place] 00 # 1 Medical Thad Branch Respironic s (okay for alternativ e brand) for nebulizer treatment amoxicillin 2021-11 Yes [id number] 1{tbl} Take 1 [facility] -clavulanat 1-22 tablet by ity of e 00:00: mouth in [place] (AUGMENTIN) 00 the Medical 875-125 mg morning Branch per tablet and 1 tablet in the evening. albuterol 2021-11 Yes [id number] 2{puff} Inhale 2 [facility] 90 1-22 Puffs ity of mcg/actuati 00:00: every 6 [place] as on inhaler 00 (six) Medical hours as Branch needed for Wheezing or Shortness of Breath. ipratropium 2021-11 Yes [id number] .5mg Inhale 2.5 [facility] 0.02 % 1-22 mL every 6 ity of nebulizer 00:00: (six) [place] solution 00 hours as Medical needed for Branch Wheezing or Shortness of Breath. albuterol 2021-11 Yes [id number] 2.5mg Inhale 3 [facility] 2.5 mg /3 1-22 mL every 6 ity of mL (0.083 00:00: (six) [place] %) 00 hours as Medical nebulizer needed for Bran ch solution Wheezing or Shortness of Breath. budesonide- 2021-11 Yes [id number] 2{puff} Inhale 2 [facility] formoteroL 1-22 Puffs in ity o f (SYMBICORT) 00:00: the [place] 80-4.5 00 morning Medical mcg/actuati and 2 Branch on inhaler Puffs in the evening. Miscellaneo 2021-11 Yes [id number] J40: [facility] 1-22 Brochitis ity of Supply Kit 00:00: [place] 00 # 1 [facility] Thad Branch Respironic s (okay for alternativ e brand) for nebulizer treatment amoxicillin 2021-11 Yes [id number] 1{tbl} Take 1 [facility] -clavulanat 1-22 tablet by ity of e 00:00: mouth in [place] (AUGMENTIN) 00 the Medical 875-125 mg morning Branch per tablet and 1 tablet in the evening. albuterol 2021-11 Yes [id number] 2{puff} Inhale 2 [facility] 90 1-22 Puffs ity of mcg/actuati 00:00: every 6 [place] as on inhaler 00 (six) Medical hours as Branch needed for Wheezing or Shortness of Breath. ipratropium 2021-11 Yes [id number] .5mg Inhale 2.5 [facility] 0.02 % 1-22 mL every 6 ity of nebulizer 00:00: (six) [place] solution 00 hours as Medical needed for Branch Wheezing or Shortness of Breath. albuterol 2021-11 Yes [id number] 2.5mg Inhale 3 [facility] 2.5 mg /3 1-22 mL every 6 ity of mL (0.083 00:00: (six) [place] %) 00 hours as Medical nebulizer needed for Bran ch solution Wheezing or Shortness of Breath. budesonide- 2021-11 Yes [id number] 2{puff} Inhale 2 [facility] formoteroL 1-22 Puffs in ity o f (SYMBICORT) 00:00: the [place] 80-4.5 00 morning Medical mcg/actuati and 2 Branch on inhaler Puffs in the evening. Miscellaneo 2021-11 Yes [id number] J40: [facility] 1-22 Brochitis ity of Supply Kit 00:00: - [place] 00 # 1 Medical Thad [facility] Respironic s (okay for alternativ e brand) for nebulizer treatment amoxicillin 2021-11 Yes [id number] 1{tbl} Take 1 [facility] -clavulanat 1-22 tablet by ity of e 00:00: mouth in [place] (AUGMENTIN) 00 the Medical 875-125 mg morning Branch per tablet and 1 tablet in the evening. albuterol 2021-11 Yes [id number] 2{puff} Inhale 2 [facility] 90 1-22 Puffs ity of mcg/actuati 00:00: every 6 [place] as on inhaler 00 (six) Medical hours as Branch needed for Wheezing or Shortness of Breath. ipratropium 2021-11 Yes [id number] .5mg Inhale 2.5 [facility] 0.02 % 1-22 mL every 6 ity of nebulizer 00:00: (six) [place] solution 00 hours as Medical needed for Branch Wheezing or Shortness of Breath. albuterol 2021-11 Yes [id number] 2.5mg Inhale 3 [facility] 2.5 mg /3 1-22 mL every 6 ity of mL (0.083 00:00: (six) [place] %) 00 hours as Medical nebulizer needed for Bran ch solution Wheezing or Shortness of Breath. budesonide- 2021-11 Yes [id number] 2{puff} Inhale 2 [facility] formoteroL 1-22 Puffs in ity o f (SYMBICORT) 00:00: the [place] 80-4.5 00 morning Medical mcg/actuati and 2 Branch on inhaler Puffs in the evening. Miscellaneo 2021-11 Yes [id number] J40: [facility] [place] [facility] 11-27 Brochitis ity of Supply Kit 00:00: - [place] 00 # 1 Medical Thad Branch Respironic s (okay for alternativ e brand) for nebulizer treatment amoxicillin 2021-11 Yes [id number] 1{tbl} Take 1 [facility] -clavulanat 1-22 tablet by ity of e 00:00: mouth in [place] (AUGMENTIN) 00 the Medical 875-125 mg morning Branch per tablet and 1 tablet in the evening. albuterol 2021-11 Yes [id number] 2{puff} Inhale 2 [facility] 90 1-22 Puffs ity of mcg/actuati 00:00: every 6 [place] as on inhaler 00 (six) Medical hours as Branch needed for Wheezing or Shortness of Breath. ipratropium 2021-11 Yes [id number] .5mg Inhale 2.5 [facility] 0.02 % 1-22 mL every 6 ity of nebulizer 00:00: (six) [place] solution 00 hours as Medical needed for Branch Wheezing or Shortness of Breath. albuterol 2021-11 Yes [id number] 2.5mg Inhale 3 [facility] 2.5 mg /3 1-22 mL every 6 ity of mL (0.083 00:00: (six) [place] %) 00 hours as Medical nebulizer needed for Bran ch solution Wheezing or Shortness of Breath. budesonide- 2021-11 Yes [id number] 2{puff} Inhale 2 [facility] formoteroL 1-22 Puffs in ity o f (SYMBICORT) 00:00: the [place] 80-4.5 00 morning Medical mcg/actuati and 2 Branch on inhaler Puffs in the evening. Miscellaneo 2021-11 Yes [id number] J40: [facility] [place] [facility] 11-27 Brochitis ity of Supply Kit 00:00: - [place] 00 # 1 Medical Thad Branch Respironic s (okay for alternativ e brand) for nebulizer treatment amoxicillin 2021-11 Yes [id number] 1{tbl} Take 1 [facility] -clavulanat 1-22 tablet by ity of e 00:00: mouth in [place] (AUGMENTIN) 00 the Medical 875-125 mg morning Branch per tablet and 1 tablet in the evening. albuterol 2021-11 Yes [id number] 2{puff} Inhale 2 [facility] 90 1-22 Puffs ity of mcg/actuati 00:00: every 6 [place] as on inhaler 00 (six) Medical hours as Branch needed for Wheezing or Shortness of Breath. ipratropium 2021-11 Yes [id number] .5mg Inhale 2.5 [facility] 0.02 % 1-22 mL every 6 ity of nebulizer 00:00: (six) [place] solution 00 hours as Medical needed for Branch Wheezing or Shortness of Breath. albuterol 2021-11 Yes [id number] 2.5mg Inhale 3 [facility] 2.5 mg /3 1-22 mL every 6 ity of mL (0.083 00:00: (six) [place] %) 00 hours as Medical nebulizer needed for Bran ch solution Wheezing or Shortness of Breath. budesonide- 2021-11 Yes [id number] 2{puff} Inhale 2 [facility] formoteroL 1-22 Puffs in ity o f (SYMBICORT) 00:00: the [place] 80-4.5 00 morning Medical mcg/actuati and 2 Branch on inhaler Puffs in the evening. Miscellaneo 2021-11 Yes [id number] J40: [facility] 1-22 Brochitis ity of Supply Kit 00:00: - [place] 00 # 1 Medical Thad Branch Respironic s (okay for alternativ e brand) for nebulizer treatment albuterol 2021-11 Yes [id number] 2{puff} Inhale 2 [facility] 90 1-22 Puffs ity of mcg/actuati 00:00: every 6 [place] as on inhaler 00 (six) Medical hours as Branch needed for Wheezing or Shortness of Breath. ipratropium 2021-11 Yes [id number] .5mg Inhale 2.5 [facility] 0.02 % 1-22 mL every 6 ity of nebulizer 00:00: (six) [place] solution 00 hours as Medical needed for Branch Wheezing or Shortness of Breath. albuterol 2021-11 Yes [id number] 2.5mg Inhale 3 [facility] 2.5 mg /3 1-22 mL every 6 ity of mL (0.083 00:00: (six) [place] %) 00 hours as Medical nebulizer needed for Bran ch solution Wheezing or Shortness of Breath. budesonide- 2021-11 Yes [id number] 2{puff} Inhale 2 [facility] formoteroL 1-22 Puffs in ity o f (SYMBICORT) 00:00: the [place] 80-4.5 00 morning Medical mcg/actuati and 2 Branch on inhaler Puffs in the evening. Miscellaneo 2021-11 Yes [id number] J40: [facility] [place] [facility] 11-27 Brochitis ity of Supply Kit 00:00: - [place] 00 # 1 Medical Thad Branch Respironic s (okay for alternativ e brand) for nebulizer treatment albuterol 2021-11 Yes [id number] 2{puff} Inhale 2 [facility] 90 1-22 Puffs ity of mcg/actuati 00:00: every 6 [place] as on inhaler 00 (six) Medical hours as Branch needed for Wheezing or Shortness of Breath. ipratropium 2021-11 Yes [id number] .5mg Inhale 2.5 [facility] 0.02 % 1-22 mL every 6 ity of nebulizer 00:00: (six) [place] solution 00 hours as Medical needed for Branch Wheezing or Shortness of Breath. albuterol 2021-11 Yes [id number] 2.5mg Inhale 3 [facility] 2.5 mg /3 1-22 mL every 6 ity of mL (0.083 00:00: (six) [place] %) 00 hours as Medical nebulizer needed for Bran ch solution Wheezing or Shortness of Breath. budesonide- 2021-11 Yes [id number] 2{puff} Inhale 2 [facility] formoteroL 1-22 Puffs in ity o f (SYMBICORT) 00:00: the [place] 80-4.5 00 morning Medical mcg/actuati and 2 Branch on inhaler Puffs in the evening. Miscellaneo 2021-11 Yes [id number] J40: [facility] [place] [facility] 11-27 Brochitis ity of Supply Kit 00:00: - [place]pense [place] 00 # 1 Medical Thad Branch Respironic s (okay for alternativ e brand) for nebulizer treatment albuterol 2021-11 Yes [id number] 2{puff} Inhale 2 [facility] 90 1-22 Puffs ity of mcg/actuati 00:00: every 6 [place] as on inhaler 00 (six) Medical hours as Branch needed for Wheezing or Shortness of Breath. ipratropium 2021-11 Yes [id number] .5mg Inhale 2.5 [facility] 0.02 % 1-22 mL every 6 ity of nebulizer 00:00: (six) [place] solution 00 hours as Medical needed for Branch Wheezing or Shortness of Breath. albuterol 2021-11 Yes [id number] 2.5mg Inhale 3 [facility] 2.5 mg /3 1-22 mL every 6 ity of mL (0.083 00:00: (six) [place] %) 00 hours as Medical nebulizer needed for Bran ch solution Wheezing or Shortness of Breath. budesonide- 2021-11 Yes [id number] 2{puff} Inhale 2 [facility] formoteroL 1-22 Puffs in ity o f (SYMBICORT) 00:00: the [place] 80-4.5 00 morning Medical mcg/actuati and 2 Branch on inhaler Puffs in the evening. Miscellaneo 2021-11 Yes [id number] J40: [facility] 1-22 Brochitis ity of Supply Kit 00:00: - Dispense [place] 00 # 1 Medical Thad Branch Respironic s (okay for alternativ e brand) for nebulizer treatment albuterol 2021-11 Yes [id number] 2{puff} Inhale 2 [facility] 90 1-22 Puffs ity of mcg/actuati 00:00: every 6 [place] as on inhaler 00 (six) Medical hours as Branch needed for Wheezing or Shortness of Breath. ipratropium 2021-11 Yes [id number] .5mg Inhale 2.5 [facility] 0.02 % 1-22 mL every 6 ity of nebulizer 00:00: (six) [place] solution 00 hours as Medical needed for Branch Wheezing or Shortness of Breath. albuterol 2021-11 Yes [id number] 2.5mg Inhale 3 [facility] 2.5 mg /3 1-22 mL every 6 ity of mL (0.083 00:00: (six) [place] %) 00 hours as Medical nebulizer needed for Bran ch solution Wheezing or Shortness of Breath. budesonide- 2021-11 Yes [id number] 2{puff} Inhale 2 [facility] formoteroL 1-22 Puffs in ity o f (SYMBICORT) 00:00: the [place] 80-4.5 00 morning Medical mcg/actuati and 2 Branch on inhaler Puffs in the evening. Miscellaneo 2021-11 Yes [id number] J40: [facility] [place] [facility] 11-27 Brochitis ity of Supply Kit 00:00: - [place]pense [place] 00 # 1 Medical Thad Branch Respironic s (okay for alternativ e brand) for nebulizer treatment albuterol 2021-11 Yes [id number] 2{puff} Inhale 2 [facility] 90 1-22 Puffs ity of mcg/actuati 00:00: every 6 [place] as on inhaler 00 (six) Medical hours as Branch needed for Wheezing or Shortness of Breath. ipratropium 2021-11 Yes [id number] .5mg Inhale 2.5 [facility] 0.02 % 1-22 mL every 6 ity of nebulizer 00:00: (six) [place] solution 00 hours as Medical needed for Branch Wheezing or Shortness of Breath. albuterol 2021-11 Yes [id number] 2.5mg Inhale 3 [facility] 2.5 mg /3 1-22 mL every 6 ity of mL (0.083 00:00: (six) [place] %) 00 hours as Medical nebulizer needed for Bran ch solution Wheezing or Shortness of Breath. budesonide- 2021-11 Yes [id number] 2{puff} Inhale 2 [facility] formoteroL 1-22 Puffs in ity o f (SYMBICORT) 00:00: the [place] 80-4.5 00 morning Medical mcg/actuati and 2 Branch on inhaler Puffs in the evening. Miscellaneo 2021-11 Yes [id number] J40: [facility] [place] [facility] 11-27 Brochitis ity of Supply Kit 00:00: - [place]ense [place] 00 # 1 Medical Thad Branch Respironic s (okay for alternativ e brand) for nebulizer treatment albuterol 2021-11 Yes [id number] 2{puff} Inhale 2 [facility] 90 1-22 Puffs ity of mcg/actuati 00:00: every 6 [place] as on inhaler 00 (six) Medical hours as Branch needed for Wheezing or Shortness of Breath. ipratropium 2021-11 Yes [id number] .5mg Inhale 2.5 [facility] 0.02 % 1-22 mL every 6 ity of nebulizer 00:00: (six) [place] solution 00 hours as Medical needed for Branch Wheezing or Shortness of Breath. albuterol 2021-11 Yes [id number] 2.5mg Inhale 3 [facility] 2.5 mg /3 1-22 mL every 6 ity of mL (0.083 00:00: (six) [place] %) 00 hours as Medical nebulizer needed for Bran ch solution Wheezing or Shortness of Breath. budesonide- 2021-11 Yes [id number] 2{puff} Inhale 2 [facility] formoteroL 1-22 Puffs in ity o f (SYMBICORT) 00:00: the [place] 80-4.5 00 morning Medical mcg/actuati and 2 Branch on inhaler Puffs in the evening. Miscellaneo 2021-11 Yes [id number] J40: [facility] 1-22 Brochitis ity of Supply Kit 00:00: - Dispense [place] 00 # 1 Medical Thad Branch Respironic s (okay for alternativ e brand) for nebulizer treatment albuterol 2021-11 Yes [id number] 2{puff} Inhale 2 [facility] 90 1-22 Puffs ity of mcg/actuati 00:00: every 6 [place] as on inhaler 00 (six) Medical hours as Branch needed for Wheezing or Shortness of Breath. ipratropium 2021-11 Yes [id number] .5mg Inhale 2.5 [facility] 0.02 % 1-22 mL every 6 ity of nebulizer 00:00: (six) [place] solution 00 hours as Medical needed for Branch Wheezing or Shortness of Breath. albuterol 2021-11 Yes [id number] 2.5mg Inhale 3 [facility] 2.5 mg /3 1-22 mL every 6 ity of mL (0.083 00:00: (six) [place] %) 00 hours as Medical nebulizer needed for Bran ch solution Wheezing or Shortness of Breath. budesonide- 2021-11 Yes [id number] 2{puff} Inhale 2 [facility] formoteroL 1-22 Puffs in ity o f (SYMBICORT) 00:00: the [place] 80-4.5 00 morning Medical mcg/actuati and 2 Branch on inhaler Puffs in the evening. Miscellaneo 2021-11 Yes [id number] J40: [facility] [place] [facility] 11-27 Brochitis ity of Supply Kit 00:00: - Dispense [place] 00 # 1 Medical Thad Branch Respironic s (okay for alternativ e brand) for nebulizer treatment albuterol 2021-11 Yes [id number] 2{puff} Inhale 2 [facility] 90 1-22 Puffs ity of mcg/actuati 00:00: every 6 [place] as on inhaler 00 (six) Medical hours as Branch needed for Wheezing or Shortness of Breath. ipratropium 2021-11 Yes [id number] .5mg Inhale 2.5 [facility] 0.02 % 1-22 mL every 6 ity of nebulizer 00:00: (six) [place] solution 00 hours as Medical needed for Branch Wheezing or Shortness of Breath. albuterol 2021-11 Yes [id number] 2.5mg Inhale 3 [facility] 2.5 mg /3 1-22 mL every 6 ity of mL (0.083 00:00: (six) [place] %) 00 hours as Medical nebulizer needed for Bran ch solution Wheezing or Shortness of Breath. budesonide- 2021-11 Yes [id number] 2{puff} Inhale 2 [facility] formoteroL 1-22 Puffs in ity o f (SYMBICORT) 00:00: the [place] 80-4.5 00 morning Medical mcg/actuati and 2 Branch on inhaler Puffs in the evening. Miscellaneo 2021-11 Yes [id number] J40: [facility] [place] [facility] 11-27 Brochitis ity of Supply Kit 00:00: - Dispense [place] 00 # 1 Medical Thad Branch Respironic s (okay for alternativ e brand) for nebulizer treatment albuterol 2021-11 Yes [id number] 2{puff} Inhale 2 [facility] 90 1-22 Puffs ity of mcg/actuati 00:00: every 6 [place] as on inhaler 00 (six) Medical hours as Branch needed for Wheezing or Shortness of Breath. ipratropium 2021-11 Yes [id number] .5mg Inhale 2.5 [facility] 0.02 % 1-22 mL every 6 ity of nebulizer 00:00: (six) [place] solution 00 hours as Medical needed for Branch Wheezing or Shortness of Breath. albuterol 2021-11 Yes [id number] 2.5mg Inhale 3 [facility] 2.5 mg /3 1-22 mL every 6 ity of mL (0.083 00:00: (six) [place] %) 00 hours as Medical nebulizer needed for Bran ch solution Wheezing or Shortness of Breath. budesonide- 2021-11 Yes [id number] 2{puff} Inhale 2 [facility] formoteroL 1-22 Puffs in ity o f (SYMBICORT) 00:00: the [place] 80-4.5 00 morning Medical mcg/actuati and 2 Branch on inhaler Puffs in the evening. Miscellaneo 2021-11 Yes [id number] J40: [facility] 1-22 Brochitis ity of Supply Kit 00:00: - Dispense [place] 00 # 1 Medical Thad Branch Respironic s (okay for alternativ e brand) for nebulizer treatment albuterol 2021-11 Yes [id number] 2{puff} Inhale 2 [facility] 90 1-22 Puffs ity of mcg/actuati 00:00: every 6 [place] as on inhaler 00 (six) Medical hours as Branch needed for Wheezing or Shortness of Breath. ipratropium 2021-11 Yes [id number] .5mg Inhale 2.5 [facility] 0.02 % 1-22 mL every 6 ity of nebulizer 00:00: (six) [place] solution 00 hours as Medical needed for Branch Wheezing or Shortness of Breath. albuterol 2021-11 Yes [id number] 2.5mg Inhale 3 [facility] 2.5 mg /3 1-22 mL every 6 ity of mL (0.083 00:00: (six) [place] %) 00 hours as Medical nebulizer needed for Bran ch solution Wheezing or Shortness of Breath. budesonide- 2021-11 Yes [id number] 2{puff} Inhale 2 [facility] formoteroL 1-22 Puffs in ity o f (SYMBICORT) 00:00: the [place] 80-4.5 00 morning Medical mcg/actuati and 2 Branch on inhaler Puffs in the evening. Miscellaneo 2021-11 Yes [id number] J40: [facility] [place] [facility] 11-27 Brochitis ity of Supply Kit 00:00: - Dispense [place] 00 # 1 Medical Thad Branch Respironic s (okay for alternativ e brand) for nebulizer treatment albuterol 2021-11 Yes [id number] 2{puff} Inhale 2 [facility] 90 1-22 Puffs ity of mcg/actuati 00:00: every 6 [place] as on inhaler 00 (six) Medical hours as Branch needed for Wheezing or Shortness of Breath. ipratropium 2021-11 Yes [id number] .5mg Inhale 2.5 [facility] 0.02 % 1-22 mL every 6 ity of nebulizer 00:00: (six) [place] solution 00 hours as Medical needed for Branch Wheezing or Shortness of Breath. albuterol 2021-11 Yes [id number] 2.5mg Inhale 3 [facility] 2.5 mg /3 1-22 mL every 6 ity of mL (0.083 00:00: (six) [place] %) 00 hours as Medical nebulizer needed for Bran ch solution Wheezing or Shortness of Breath. budesonide- 2021-11 Yes [id number] 2{puff} Inhale 2 [facility] formoteroL 1-22 Puffs in ity o f (SYMBICORT) 00:00: the [place] 80-4.5 00 morning Medical mcg/actuati and 2 Branch on inhaler Puffs in the evening. Miscellaneo 2021-11 Yes [id number] J40: [facility] [place] [facility] 11-27 Brochitis ity of Supply Kit 00:00: - Dispense [place] 00 # 1 Medical Thad Branch Respironic s (okay for alternativ e brand) for nebulizer treatment albuterol 2021-11 Yes [id number] 2{puff} Inhale 2 [facility] 90 1-22 Puffs ity of mcg/actuati 00:00: every 6 [place] as on inhaler 00 (six) Medical hours as Branch needed for Wheezing or Shortness of Breath. ipratropium 2021-11 Yes [id number] .5mg Inhale 2.5 [facility] 0.02 % 1-22 mL every 6 ity of nebulizer 00:00: (six) [place] solution 00 hours as Medical needed for Branch Wheezing or Shortness of Breath. albuterol 2021-11 Yes [id number] 2.5mg Inhale 3 [facility] 2.5 mg /3 1-22 mL every 6 ity of mL (0.083 00:00: (six) [place] %) 00 hours as Medical nebulizer needed for Bran ch solution Wheezing or Shortness of Breath. budesonide- 2021-11 Yes [id number] 2{puff} Inhale 2 [facility] formoteroL 1-22 Puffs in ity o f (SYMBICORT) 00:00: the [place] 80-4.5 00 morning Medical mcg/actuati and 2 Branch on inhaler Puffs in the evening. Miscellaneo 2021-11 Yes [id number] J40: [facility] [place] [facility] 1-22 Brochitis ity of Supply Kit 00:00: - Dispense [place] 00 # 1 Medical Thad Branch Respironic s (okay for alternativ e brand) for nebulizer treatment albuterol 2021-11 Yes [id number] 2{puff} Inhale 2 [facility] 90 1-22 Puffs ity of mcg/actuati 00:00: every 6 [place] as on inhaler 00 (six) Medical hours as Branch needed for Wheezing or Shortness of Breath. ipratropium 2021-11 Yes [id number] .5mg Inhale 2.5 [facility] 0.02 % 1-22 mL every 6 ity of nebulizer 00:00: (six) [place] solution 00 hours as Medical needed for Branch Wheezing or Shortness of Breath. albuterol 2021-11 Yes [id number] 2.5mg Inhale 3 [facility] 2.5 mg /3 1-22 mL every 6 ity of mL (0.083 00:00: (six) [place] %) 00 hours as Medical nebulizer needed for Bran ch solution Wheezing or Shortness of Breath. budesonide- 2021-11 Yes [id number] 2{puff} Inhale 2 [facility] formoteroL 1-22 Puffs in ity o f (SYMBICORT) 00:00: the [place] 80-4.5 00 morning Medical mcg/actuati and 2 Branch on inhaler Puffs in the evening. Miscellaneo 2021-11 Yes [id number] J40: [facility] [place] [facility] 11-27 Brochitis ity of Supply Kit 00:00: - Dispense [place] 00 # 1 Medical Thad Branch Respironic s (okay for alternativ e brand) for nebulizer treatment albuterol 2021-11 Yes [id number] 2{puff} Inhale 2 [facility] 90 1-22 Puffs ity of mcg/actuati 00:00: every 6 [place] as on inhaler 00 (six) Medical hours as Branch needed for Wheezing or Shortness of Breath. ipratropium 2021-11 Yes [id number] .5mg Inhale 2.5 [facility] 0.02 % 1-22 mL every 6 ity of nebulizer 00:00: (six) [place] solution 00 hours as Medical needed for Branch Wheezing or Shortness of Breath. albuterol 2021-11 Yes [id number] 2.5mg Inhale 3 [facility] 2.5 mg /3 1-22 mL every 6 ity of mL (0.083 00:00: (six) [place] %) 00 hours as Medical nebulizer needed for Bran ch solution Wheezing or Shortness of Breath. budesonide- 2021-11 Yes [id number] 2{puff} Inhale 2 [facility] formoteroL 1-22 Puffs in ity o f (SYMBICORT) 00:00: the [place] 80-4.5 00 morning Medical mcg/actuati and 2 Branch on inhaler Puffs in the evening. Miscellaneo 2021-11 Yes [id number] J40: [facility] [place] [facility] 11-27 Brochitis ity of Supply Kit 00:00: - Dispense [place] 00 # 1 Medical Thad Branch Respironic s (okay for alternativ e brand) for nebulizer treatment albuterol 2021-11 Yes [id number] 2{puff} Inhale 2 [facility] 90 1-22 Puffs ity of mcg/actuati 00:00: every 6 [place] as on inhaler 00 (six) Medical hours as Branch needed for Wheezing or Shortness of Breath. ipratropium 2021-11 Yes [id number] .5mg Inhale 2.5 [facility] 0.02 % 1-22 mL every 6 ity of nebulizer 00:00: (six) [place] solution 00 hours as Medical needed for Branch Wheezing or Shortness of Breath. albuterol 2021-11 Yes [id number] 2.5mg Inhale 3 [facility] 2.5 mg /3 1-22 mL every 6 ity of mL (0.083 00:00: (six) [place] %) 00 hours as Medical nebulizer needed for Bran ch solution Wheezing or Shortness of Breath. budesonide- 2021-11 Yes [id number] 2{puff} Inhale 2 [facility] formoteroL 1-22 Puffs in ity o f (SYMBICORT) 00:00: the [place] 80-4.5 00 morning Medical mcg/actuati and 2 Branch on inhaler Puffs in the evening. Miscellaneo 2021-11 Yes [id number] J40: [facility] [place] [facility] 11-27 Brochitis ity of Supply Kit 00:00: - Dispense [place] 00 # 1 Medical Thad Branch Respironic s (okay for alternativ e brand) for nebulizer treatment albuterol 2021-11 Yes [id number] 2{puff} Inhale 2 [facility] 90 1-22 Puffs ity of mcg/actuati 00:00: every 6 [place] as on inhaler 00 (six) Medical hours as Branch needed for Wheezing or Shortness of Breath. ipratropium 2021-11 Yes [id number] .5mg Inhale 2.5 [facility] 0.02 % 1-22 mL every 6 ity of nebulizer 00:00: (six) [place] solution 00 hours as Medical needed for Branch Wheezing or Shortness of Breath. albuterol 2021-11 Yes [id number] 2.5mg Inhale 3 [facility] 2.5 mg /3 1-22 mL every 6 ity of mL (0.083 00:00: (six) [place] %) 00 hours as Medical nebulizer needed for Bran ch solution Wheezing or Shortness of Breath. budesonide- 2021-11 Yes [id number] 2{puff} Inhale 2 [facility] formoteroL 1-22 Puffs in ity o f (SYMBICORT) 00:00: the [place] 80-4.5 00 morning Medical mcg/actuati and 2 Branch on inhaler Puffs in the evening. Miscellaneo 2021-11 Yes [id number] J40: [facility] [place] [facility] 11-27 Brochitis ity of Supply Kit 00:00: - Dispense [place] 00 # 1 Medical Thad Branch Respironic s (okay for alternativ e brand) for nebulizer treatment albuterol 2021-11 Yes [id number] 2{puff} Inhale 2 [facility] 90 1-22 Puffs ity of mcg/actuati 00:00: every 6 [place] as on inhaler 00 (six) Medical hours as Branch needed for Wheezing or Shortness of Breath. ipratropium 2021-11 Yes [id number] .5mg Inhale 2.5 [facility] 0.02 % 1-22 mL every 6 ity of nebulizer 00:00: (six) [place] solution 00 hours as Medical needed for Branch Wheezing or Shortness of Breath. albuterol 2021-11 Yes [id number] 2.5mg Inhale 3 [facility] 2.5 mg /3 1-22 mL every 6 ity of mL (0.083 00:00: (six) [place] %) 00 hours as Medical nebulizer needed for Bran ch solution Wheezing or Shortness of Breath. budesonide- 2021-11 Yes [id number] 2{puff} Inhale 2 [facility] formoteroL 1-22 Puffs in ity o f (SYMBICORT) 00:00: the [place] 80-4.5 00 morning Medical mcg/actuati and 2 Branch on inhaler Puffs in the evening. Miscellaneo 2021-11 Yes [id number] J40: [facility] 1-22 Brochitis ity of Supply Kit 00:00: - Dispense [place] 00 # 1 Medical Thad Branch Respironic s (okay for alternativ e brand) for nebulizer treatment albuterol 2021-11 Yes [id number] 2{puff} Inhale 2 [facility] 90 1-22 Puffs ity of mcg/actuati 00:00: every 6 [place] as on inhaler 00 (six) Medical hours as Branch needed for Wheezing or Shortness of Breath. ipratropium 2021-11 Yes [id number] .5mg Inhale 2.5 [facility] 0.02 % 1-22 mL every 6 ity of nebulizer 00:00: (six) [place] solution 00 hours as Medical needed for Branch Wheezing or Shortness of Breath. albuterol 2021-11 Yes [id number] 2.5mg Inhale 3 [facility] 2.5 mg /3 1-22 mL every 6 ity of mL (0.083 00:00: (six) [place] %) 00 hours as Medical nebulizer needed for Bran ch solution Wheezing or Shortness of Breath. budesonide- 2021-11 Yes [id number] 2{puff} Inhale 2 [facility] formoteroL 1-22 Puffs in ity o f (SYMBICORT) 00:00: the [place] 80-4.5 00 morning Medical mcg/actuati and 2 Branch on inhaler Puffs in the evening. Miscellaneo 2021-11 Yes [id number] J40: [facility] [place] [facility] 11-27 Brochitis ity of Supply Kit 00:00: - [place] 00 # 1 Medical Thad [facility] Respironic s (okay for alternativ e brand) for nebulizer treatment albuterol 2021-11 Yes [id number] 2{puff} Inhale 2 [facility] 90 1-22 Puffs ity of mcg/actuati 00:00: every 6 [place] as on inhaler 00 (six) Medical hours as Branch needed for Wheezing or Shortness of Breath. ipratropium 2021-11 Yes [id number] .5mg Inhale 2.5 [facility] 0.02 % 1-22 mL every 6 ity of nebulizer 00:00: (six) [place] solution 00 hours as Medical needed for Branch Wheezing or Shortness of Breath. albuterol 2021-11 Yes [id number] 2.5mg Inhale 3 [facility] 2.5 mg /3 1-22 mL every 6 ity of mL (0.083 00:00: (six) [place] %) 00 hours as Medical nebulizer needed for Bran ch solution Wheezing or Shortness of Breath. budesonide- 2021-11 Yes [id number] 2{puff} Inhale 2 [facility] formoteroL 1-22 Puffs in ity o f (SYMBICORT) 00:00: the [place] 80-4.5 00 morning Medical mcg/actuati and 2 Branch on inhaler Puffs in the evening. Miscellaneo 2021-11 Yes [id number] J40: [facility] [place] [facility] 11-27 Brochitis ity of Supply Kit 00:00: - [place] 00 # 1 Medical Thad [facility] Respironic s (okay for alternativ e brand) for nebulizer treatment albuterol 2021-11 Yes [id number] 2{puff} Inhale 2 [facility] 90 1-22 Puffs ity of mcg/actuati 00:00: every 6 [place] as on inhaler 00 (six) Medical hours as Branch needed for Wheezing or Shortness of Breath. ipratropium 2021-11 Yes [id number] .5mg Inhale 2.5 [facility] 0.02 % 1-22 mL every 6 ity of nebulizer 00:00: (six) [place] solution 00 hours as Medical needed for Branch Wheezing or Shortness of Breath. albuterol 2021-11 Yes [id number] 2.5mg Inhale 3 [facility] 2.5 mg /3 1-22 mL every 6 ity of mL (0.083 00:00: (six) [place] %) 00 hours as Medical nebulizer needed for Bran ch solution Wheezing or Shortness of Breath. budesonide- 2021-11 Yes [id number] 2{puff} Inhale 2 [facility] formoteroL 1-22 Puffs in ity o f (SYMBICORT) 00:00: the [place] 80-4.5 00 morning Medical mcg/actuati and 2 Branch on inhaler Puffs in the evening. Miscellaneo 2021-11 Yes [id number] J40: [facility] 1-22 Brochitis ity of Supply Kit 00:00: - [place] 00 # 1 Medical Thad [facility] Respironic s (okay for alternativ e brand) for nebulizer treatment albuterol 2021-11 Yes [id number] 2{puff} Inhale 2 [facility] 90 1-22 Puffs ity of mcg/actuati 00:00: every 6 [place] as on inhaler 00 (six) Medical hours as Branch needed for Wheezing or Shortness of Breath. ipratropium 2021-11 Yes [id number] .5mg Inhale 2.5 [facility] 0.02 % 1-22 mL every 6 ity of nebulizer 00:00: (six) [place] solution 00 hours as Medical needed for Branch Wheezing or Shortness of Breath. albuterol 2021-11 Yes [id number] 2.5mg Inhale 3 [facility] 2.5 mg /3 1-22 mL every 6 ity of mL (0.083 00:00: (six) [place] %) 00 hours as Medical nebulizer needed for Bran ch solution Wheezing or Shortness of Breath. budesonide- 2021-11 Yes [id number] 2{puff} Inhale 2 [facility] formoteroL 1-22 Puffs in ity o f (SYMBICORT) 00:00: the [place] 80-4.5 00 morning Medical mcg/actuati and 2 Branch on inhaler Puffs in the evening. Miscellaneo 2021-11 Yes [id number] J40: [facility] [place] [facility] 11-27 Brochitis ity of Supply Kit 00:00: - [place]ense [place] 00 # 1 Medical Thad Branch Respironic s (okay for alternativ e brand) for nebulizer treatment albuterol 2021-11 Yes [id number] 2{puff} Inhale 2 [facility] 90 1-22 Puffs ity of mcg/actuati 00:00: every 6 [place] as on inhaler 00 (six) Medical hours as Branch needed for Wheezing or Shortness of Breath. ipratropium 2021-11 Yes [id number] .5mg Inhale 2.5 [facility] 0.02 % 1-22 mL every 6 ity of nebulizer 00:00: (six) [place] solution 00 hours as Medical needed for Branch Wheezing or Shortness of Breath. albuterol 2021-11 Yes [id number] 2.5mg Inhale 3 [facility] 2.5 mg /3 1-22 mL every 6 ity of mL (0.083 00:00: (six) [place] %) 00 hours as Medical nebulizer needed for Bran ch solution Wheezing or Shortness of Breath. budesonide- 2021-11 Yes [id number] 2{puff} Inhale 2 [facility] formoteroL 1-22 Puffs in ity o f (SYMBICORT) 00:00: the [place] 80-4.5 00 morning Medical mcg/actuati and 2 Branch on inhaler Puffs in the evening. Miscellaneo 2021-11 Yes [id number] J40: [facility] [place] [facility] 11-27 Brochitis ity of Supply Kit 00:00: - [place]ense [place] 00 # 1 Medical Thad Branch Respironic s (okay for alternativ e brand) for nebulizer treatment albuterol 2021-11 Yes [id number] 2{puff} Inhale 2 [facility] 90 1-22 Puffs ity of mcg/actuati 00:00: every 6 [place] as on inhaler 00 (six) Medical hours as Branch needed for Wheezing or Shortness of Breath. ipratropium 2021-11 Yes [id number] .5mg Inhale 2.5 [facility] 0.02 % 1-22 mL every 6 ity of nebulizer 00:00: (six) [place] solution 00 hours as Medical needed for Branch Wheezing or Shortness of Breath. albuterol 2021-11 Yes [id number] 2.5mg Inhale 3 [facility] 2.5 mg /3 1-22 mL every 6 ity of mL (0.083 00:00: (six) [place] %) 00 hours as Medical nebulizer needed for Bran ch solution Wheezing or Shortness of Breath. budesonide- 2021-11 Yes [id number] 2{puff} Inhale 2 [facility] formoteroL 1-22 Puffs in ity o f (SYMBICORT) 00:00: the [place] 80-4.5 00 morning Medical mcg/actuati and 2 Branch on inhaler Puffs in the evening. Miscellaneo 2021-11 Yes [id number] J40: [facility] 1-22 Brochitis ity of Supply Kit 00:00: - Dispense [place] 00 # 1 Medical Thad Branch Respironic s (okay for alternativ e brand) for nebulizer treatment albuterol 2021-11 Yes [id number] 2{puff} Inhale 2 [facility] 90 1-22 Puffs ity of mcg/actuati 00:00: every 6 [place] as on inhaler 00 (six) Medical hours as Branch needed for Wheezing or Shortness of Breath. ipratropium 2021-11 Yes [id number] .5mg Inhale 2.5 [facility] 0.02 % 1-22 mL every 6 ity of nebulizer 00:00: (six) [place] solution 00 hours as Medical needed for Branch Wheezing or Shortness of Breath. albuterol 2021-11 Yes [id number] 2.5mg Inhale 3 [facility] 2.5 mg /3 1-22 mL every 6 ity of mL (0.083 00:00: (six) [place] %) 00 hours as Medical nebulizer needed for Bran ch solution Wheezing or Shortness of Breath. budesonide- 2021-11 Yes [id number] 2{puff} Inhale 2 [facility] formoteroL 1-22 Puffs in ity o f (SYMBICORT) 00:00: the [place] 80-4.5 00 morning Medical mcg/actuati and 2 Branch on inhaler Puffs in the evening. Miscellaneo 2021-11 Yes [id number] J40: [facility] [place] [facility] 11-27 Brochitis ity of Supply Kit 00:00: - Dispense [place] 00 # 1 Medical Thad Branch Respironic s (okay for alternativ e brand) for nebulizer treatment albuterol 2021-11 Yes [id number] 2{puff} Inhale 2 [facility] 90 1-22 Puffs ity of mcg/actuati 00:00: every 6 [place] as on inhaler 00 (six) Medical hours as Branch needed for Wheezing or Shortness of Breath. ipratropium 2021-11 Yes [id number] .5mg Inhale 2.5 [facility] 0.02 % 1-22 mL every 6 ity of nebulizer 00:00: (six) [place] solution 00 hours as Medical needed for Branch Wheezing or Shortness of Breath. albuterol 2021-11 Yes [id number] 2.5mg Inhale 3 [facility] 2.5 mg /3 1-22 mL every 6 ity of mL (0.083 00:00: (six) [place] %) 00 hours as Medical nebulizer needed for Bran ch solution Wheezing or Shortness of Breath. budesonide- 2021-11 Yes [id number] 2{puff} Inhale 2 [facility] formoteroL 1-22 Puffs in ity o f (SYMBICORT) 00:00: the [place] 80-4.5 00 morning Medical mcg/actuati and 2 Branch on inhaler Puffs in the evening. Miscellaneo 2021-11 Yes [id number] J40: [facility] [place] [facility] 11-27 Brochitis ity of Supply Kit 00:00: - Dispense [place] 00 # 1 Medical Thad Branch Respironic s (okay for alternativ e brand) for nebulizer treatment albuterol 2021-11 Yes [id number] 2{puff} Inhale 2 [facility] 90 1-22 Puffs ity of mcg/actuati 00:00: every 6 [place] as on inhaler 00 (six) Medical hours as Branch needed for Wheezing or Shortness of Breath. ipratropium 2021-11 Yes [id number] .5mg Inhale 2.5 Univers 0.02 % 1-22 mL every 6 ity of nebulizer 00:00: (six) [place] solution 00 hours as Medical needed for Branch Wheezing or Shortness of Breath. albuterol 2021-11 Yes [id number] 2.5mg Inhale 3 [facility] 2.5 mg /3 1-22 mL every 6 ity of mL (0.083 00:00: (six) [place] %) 00 hours as Medical nebulizer needed for Bran ch solution Wheezing or Shortness of Breath. budesonide- 2021-11 Yes [id number] 2{puff} Inhale 2 [facility] formoteroL 1-22 Puffs in ity o f (SYMBICORT) 00:00: the [place] 80-4.5 00 morning Medical mcg/actuati and 2 Branch on inhaler Puffs in the evening. Miscellaneo 2021-11 Yes [id number] J40: [facility] 1-22 Brochitis ity of Supply Kit 00:00: - Dispense [place] 00 # 1 Medical Thad Branch Respironic s (okay for alternativ e brand) for nebulizer treatment albuterol 2021-11 Yes [id number] 2{puff} Inhale 2 [facility] 90 1-22 Puffs ity of mcg/actuati 00:00: every 6 [place] as on inhaler 00 (six) Medical hours as Branch needed for Wheezing or Shortness of Breath. ipratropium 2021-11 Yes [id number] .5mg Inhale 2.5 [facility] 0.02 % 1-22 mL every 6 ity of nebulizer 00:00: (six) [place] solution 00 hours as Medical needed for Branch Wheezing or Shortness of Breath. albuterol 2021-11 Yes [id number] 2.5mg Inhale 3 [facility] 2.5 mg /3 1-22 mL every 6 ity of mL (0.083 00:00: (six) [place] %) 00 hours as Medical nebulizer needed for Bran ch solution Wheezing or Shortness of Breath. budesonide- 2021-11 Yes [id number] 2{puff} Inhale 2 [facility] formoteroL 1-22 Puffs in ity o f (SYMBICORT) 00:00: the [place] 80-4.5 00 morning Medical mcg/actuati and 2 Branch on inhaler Puffs in the evening. Miscellaneo 2021-11 Yes [id number] J40: [facility] [place] [facility] 11-27 Brochitis ity of Supply Kit 00:00: - Dispense [place] 00 # 1 Medical Thad Branch Respironic s (okay for alternativ e brand) for nebulizer treatment albuterol 2021-11 Yes [id number] 2{puff} Inhale 2 [facility] 90 1-22 Puffs ity of mcg/actuati 00:00: every 6 [place] as on inhaler 00 (six) Medical hours as Branch needed for Wheezing or Shortness of Breath. ipratropium 2021-11 Yes [id number] .5mg Inhale 2.5 [facility] 0.02 % 1-22 mL every 6 ity of nebulizer 00:00: (six) [place] solution 00 hours as Medical needed for Branch Wheezing or Shortness of Breath. albuterol 2021-11 Yes [id number] 2.5mg Inhale 3 [facility] 2.5 mg /3 1-22 mL every 6 ity of mL (0.083 00:00: (six) [place] %) 00 hours as Medical nebulizer needed for Bran ch solution Wheezing or Shortness of Breath. budesonide- 2021-11 Yes [id number] 2{puff} Inhale 2 [facility] formoteroL 1-22 Puffs in ity o f (SYMBICORT) 00:00: the [place] 80-4.5 00 morning Medical mcg/actuati and 2 Branch on inhaler Puffs in the evening. Miscellaneo 2021-11 Yes [id number] J40: [facility] [place] [facility] 11-27 Brochitis ity of Supply Kit 00:00: - Dispense [place] 00 # 1 Medical Thad Branch Respironic s (okay for alternativ e brand) for nebulizer treatment ipratropium 2021-11 Yes [id number] .5mg Inhale 2.5 Univers 0.02 % 1-22 mL every 6 ity of nebulizer 00:00: (six) [place] solution 00 hours as Medical needed for Branch Wheezing or Shortness of Breath. albuterol 2021-11 Yes [id number] 2.5mg Inhale 3 [facility] 2.5 mg /3 1-22 mL every 6 ity of mL (0.083 00:00: (six) [place] %) 00 hours as Medical nebulizer needed for Bran ch solution Wheezing or Shortness of Breath. budesonide- 2021-11 Yes [id number] 2{puff} Inhale 2 [facility] formoteroL 1-22 Puffs in ity o f (SYMBICORT) 00:00: the [place] 80-4.5 00 morning Medical mcg/actuati and 2 Branch on inhaler Puffs in the evening. Miscellaneo 2021-11 Yes [id number] J40: [facility] [place] [facility] 11-27 Brochitis ity of Supply Kit 00:00: - Dispense [place] 00 # 1 Medical Thad Branch Respironic s (okay for alternativ e brand) for nebulizer treatment ipratropium 2021-11 Yes [id number] .5mg Inhale 2.5 [facility] 0.02 % 1-22 mL every 6 ity of nebulizer 00:00: (six) [place] solution 00 hours as Medical needed for Branch Wheezing or Shortness of Breath. albuterol 2021-11 Yes [id number] 2.5mg Inhale 3 [facility] 2.5 mg /3 1-22 mL every 6 ity of mL (0.083 00:00: (six) [place] %) 00 hours as Medical nebulizer needed for Bran ch solution Wheezing or Shortness of Breath. budesonide- 2021-11 Yes [id number] 2{puff} Inhale 2 [facility] formoteroL 1-22 Puffs in ity o f (SYMBICORT) 00:00: the [place] 80-4.5 00 morning Medical mcg/actuati and 2 Branch on inhaler Puffs in the evening. Miscellaneo 2021-11 Yes [id number] J40: [facility] [place] [facility] 11-27 Brochitis ity of Supply Kit 00:00: - Dispense [place] 00 # 1 Medical Thad Branch Respironic s (okay for alternativ e brand) for nebulizer treatment ipratropium 2021-11 Yes [id number] .5mg Inhale 2.5 [facility] 0.02 % 1-22 mL every 6 ity of nebulizer 00:00: (six) [place] solution 00 hours as Medical needed for Branch Wheezing or Shortness of Breath. albuterol 2021-11 Yes [id number] 2.5mg Inhale 3 [facility] 2.5 mg /3 1-22 mL every 6 ity of mL (0.083 00:00: (six) [place] %) 00 hours as Medical nebulizer needed for Bran ch solution Wheezing or Shortness of Breath. budesonide- 2021-11 Yes [id number] 2{puff} Inhale 2 [facility] formoteroL 1-22 Puffs in ity o f (SYMBICORT) 00:00: the [place] 80-4.5 00 morning Medical mcg/actuati and 2 Branch on inhaler Puffs in the evening. Miscellaneo 2021-11 Yes [id number] J40: [facility] [place] [facility] 11-27 [place] ity of Supply Kit 00:00: - Dispense [place] 00 # 1 Medical Thad Branch Respironic s (okay for alternativ e brand) for nebulizer treatment ipratropium 2021-11 Yes [id number] .5mg Inhale 2.5 Univers 0.02 % 1-22 mL every 6 ity of nebulizer 00:00: (six) [place] solution 00 hours as Medical needed for Branch Wheezing or Shortness of Breath. albuterol 2021-11 Yes [id number] 2.5mg Inhale 3 [facility] 2.5 mg /3 1-22 mL every 6 ity of mL (0.083 00:00: (six) [place] %) 00 hours as Medical nebulizer needed for Bran ch solution Wheezing or Shortness of Breath. budesonide- 2021-11 Yes [id number] 2{puff} Inhale 2 [facility] formoteroL 1-22 Puffs in ity o f (SYMBICORT) 00:00: the [place] 80-4.5 00 morning Medical mcg/actuati and 2 Branch on inhaler Puffs in the evening. Miscellaneo 2021-11 Yes [id number] J40: [facility] [place] [facility] 11-27 Brochitis ity of Supply Kit 00:00: - Dispense [place] 00 # 1 Medical Thad Branch Respironic s (okay for alternativ e brand) for nebulizer treatment ipratropium 2021-11 Yes [id number] .5mg Inhale 2.5 Univers 0.02 % 1-22 mL every 6 ity of nebulizer 00:00: (six) [place] solution 00 hours as Medical needed for Branch Wheezing or Shortness of Breath. albuterol 2021-11 Yes [id number] 2.5mg Inhale 3 Univers 2.5 mg /3 1-22 mL every 6 ity of mL (0.083 00:00: (six) [place] %) 00 hours as Medical nebulizer needed for Bran ch solution Wheezing or Shortness of Breath. budesonide- 2021-11 Yes [id number] 2{puff} Inhale 2 [facility] formoteroL 1-22 Puffs in ity o f (SYMBICORT) 00:00: the [place] 80-4.5 00 morning Medical mcg/actuati and 2 Branch on inhaler Puffs in the evening. Miscellaneo 2021-11 Yes [id number] J40: [facility] [place] [facility] 11-27 [employer] of Supply Kit 00:00: - Dispense [place] 00 # 1 Medical Thad Branch Respironic s (okay for alternativ e brand) for nebulizer treatment ipratropium 2021-11 Yes [id number] .5mg Inhale 2.5 Univers 0.02 % 1-22 mL every 6 ity of nebulizer 00:00: (six) [place] solution 00 hours as Medical needed for Branch Wheezing or Shortness of Breath. albuterol 2021-11 Yes [id number] 2.5mg Inhale 3 Univers 2.5 mg /3 1-22 mL every 6 ity of mL (0.083 00:00: (six) [place] %) 00 hours as Medical nebulizer needed for Bran ch solution Wheezing or Shortness of Breath. budesonide- 2021-11 Yes [id number] 2{puff} Inhale 2 [facility] formoteroL 1-22 Puffs in ity o f (SYMBICORT) 00:00: the [place] 80-4.5 00 morning Medical mcg/actuati and 2 Branch on inhaler Puffs in the evening. Miscellaneo 2021-11 Yes [id number] J40: [facility] [place] [facility] 11-27 Brochitis ity of Supply Kit 00:00: - Dispense [place] 00 # 1 Medical Thad Branch Respironic s (okay for alternativ e brand) for nebulizer treatment ipratropium 2021-11 Yes [id number] .5mg Inhale 2.5 Univers 0.02 % 1-22 mL every 6 ity of nebulizer 00:00: (six) [place] solution 00 hours as Medical needed for Branch Wheezing or Shortness of Breath. albuterol 2021-11 Yes [id number] 2.5mg Inhale 3 [facility] 2.5 mg /3 1-22 mL every 6 ity of mL (0.083 00:00: (six) [place] %) 00 hours as Medical nebulizer needed for Bran ch solution Wheezing or Shortness of Breath. budesonide- 2021-11 Yes [id number] 2{puff} Inhale 2 [facility] formoteroL 1-22 Puffs in ity o f (SYMBICORT) 00:00: the [place] 80-4.5 00 morning Medical mcg/actuati and 2 Branch on inhaler Puffs in the evening. Miscellaneo 2021-11 Yes [id number] J40: [facility] [place] [facility] 11-27 Brochitis ity of Supply Kit 00:00: - Dispense [place] 00 # 1 Medical Thad Branch Respironic s (okay for alternativ e brand) for nebulizer treatment ipratropium 2021-11 Yes [id number] .5mg Inhale 2.5 Univers 0.02 % 1-22 mL every 6 ity of nebulizer 00:00: (six) [place] solution 00 hours as Medical needed for Branch Wheezing or Shortness of Breath. albuterol 2021-11 Yes [id number] 2.5mg Inhale 3 [facility] 2.5 mg /3 1-22 mL every 6 ity of mL (0.083 00:00: (six) [place] %) 00 hours as Medical nebulizer needed for Bran ch solution Wheezing or Shortness of Breath. budesonide- 2021-11 Yes [id number] 2{puff} Inhale 2 [facility] formoteroL 1-22 Puffs in ity o f (SYMBICORT) 00:00: the [place] 80-4.5 00 morning Medical mcg/actuati and 2 Branch on inhaler Puffs in the evening. Miscellaneo 2021-11 Yes [id number] J40: [facility] [place] [facility] 11-27 Brochitis ity of Supply Kit 00:00: - Dispense [place] 00 # 1 Medical Thad Branch Respironic s (okay for alternativ e brand) for nebulizer treatment ipratropium 2021-11 Yes [id number] .5mg Inhale 2.5 [facility] 0.02 % 1-22 mL every 6 ity of nebulizer 00:00: (six) [place] solution 00 hours as Medical needed for Branch Wheezing or Shortness of Breath. albuterol 2021-11 Yes [id number] 2.5mg Inhale 3 [facility] 2.5 mg /3 1-22 mL every 6 ity of mL (0.083 00:00: (six) [place] %) 00 hours as Medical nebulizer needed for Bran ch solution Wheezing or Shortness of Breath. budesonide- 2021-11 Yes [id number] 2{puff} Inhale 2 [facility] formoteroL 1-22 Puffs in ity o f (SYMBICORT) 00:00: the [place] 80-4.5 00 morning Medical mcg/actuati and 2 Branch on inhaler Puffs in the evening. Miscellaneo 2021-11 Yes [id number] J40: [facility] [place] [facility] 11-27 Brochitis ity of Supply Kit 00:00: - Dispense [place] 00 # 1 Medical Thad Branch Respironic s (okay for alternativ e brand) for nebulizer treatment ipratropium 2021-11 Yes [id number] .5mg Inhale 2.5 Univers 0.02 % 1-22 mL every 6 ity of nebulizer 00:00: (six) [place] solution 00 hours as Medical needed for Branch Wheezing or Shortness of Breath. albuterol 2021-11 Yes [id number] 2.5mg Inhale 3 [facility] 2.5 mg /3 1-22 mL every 6 ity of mL (0.083 00:00: (six) [place] %) 00 hours as Medical nebulizer needed for Bran ch solution Wheezing or Shortness of Breath. budesonide- 2021-11 Yes [id number] 2{puff} Inhale 2 [facility] formoteroL 1-22 Puffs in ity o f (SYMBICORT) 00:00: the [place] 80-4.5 00 morning Medical mcg/actuati and 2 Branch on inhaler Puffs in the evening. Miscellaneo 2021-11 Yes [id number] J40: [facility] [place] [facility] 11-27 Brochitis ity of Supply Kit 00:00: - Dispense [place] 00 # 1 Medical Thad Branch Respironic s (okay for alternativ e brand) for nebulizer treatment ipratropium 2021-11 Yes [id number] .5mg Inhale 2.5 Univers 0.02 % 1-22 mL every 6 ity of nebulizer 00:00: (six) [place] solution 00 hours as Medical needed for Branch Wheezing or Shortness of Breath. albuterol 2021-11 Yes [id number] 2.5mg Inhale 3 Univers 2.5 mg /3 1-22 mL every 6 ity of mL (0.083 00:00: (six) [place] %) 00 hours as Medical nebulizer needed for Bran ch solution Wheezing or Shortness of Breath. budesonide- 2021-11 Yes [id number] 2{puff} Inhale 2 [facility] formoteroL 1-22 Puffs in ity o f (SYMBICORT) 00:00: the [place] 80-4.5 00 morning Medical mcg/actuati and 2 Branch on inhaler Puffs in the evening. Miscellaneo 2021-11 Yes [id number] J40: [facility] 1-22 Brochitis ity of Supply Kit 00:00: - Dispense [place] 00 # 1 Medical Thad Branch Respironic s (okay for alternativ e brand) for nebulizer treatment ipratropium 2021-11 Yes [id number] .5mg Inhale 2.5 Univers 0.02 % 1-22 mL every 6 ity of nebulizer 00:00: (six) [place] solution 00 hours as Medical needed for Branch Wheezing or Shortness of Breath. albuterol 2021-11 Yes [id number] 2.5mg Inhale 3 Univers 2.5 mg /3 1-22 mL every 6 ity of mL (0.083 00:00: (six) [place] %) 00 hours as Medical nebulizer needed for Bran ch solution Wheezing or Shortness of Breath. budesonide- 2021-11 Yes [id number] 2{puff} Inhale 2 [facility] formoteroL 1-22 Puffs in ity o f (SYMBICORT) 00:00: the [place] 80-4.5 00 morning Medical mcg/actuati and 2 Branch on inhaler Puffs in the evening. Miscellaneo 2021-11 Yes [id number] J40: [facility] [place] [facility] 11-27 Brochitis ity of Supply Kit 00:00: - Dispense [place] 00 # 1 Medical Thad Branch Respironic s (okay for alternativ e brand) for nebulizer treatment ipratropium 2021-11 Yes [id number] .5mg Inhale 2.5 [facility] 0.02 % 1-22 mL every 6 ity of nebulizer 00:00: (six) [place] solution 00 hours as Medical needed for Branch Wheezing or Shortness of Breath. albuterol 2021-11 Yes [id number] 2.5mg Inhale 3 [facility] 2.5 mg /3 1-22 mL every 6 ity of mL (0.083 00:00: (six) [place] %) 00 hours as Medical nebulizer needed for Bran ch solution Wheezing or Shortness of Breath. budesonide- 2021-11 Yes [id number] 2{puff} Inhale 2 [facility] formoteroL 1-22 Puffs in ity o f (SYMBICORT) 00:00: the [place] 80-4.5 00 morning Medical mcg/actuati and 2 Branch on inhaler Puffs in the evening. Miscellaneo 2021-11 Yes [id number] J40: [facility] [place] [facility] 11-27 Brochitis ity of Supply Kit 00:00: - [place]ense [place] 00 # 1 Medical Thad Branch Respironic s (okay for alternativ e brand) for nebulizer treatment ipratropium 2021-11 Yes [id number] .5mg Inhale 2.5 Univers 0.02 % 1-22 mL every 6 ity of nebulizer 00:00: (six) [place] solution 00 hours as Medical needed for Branch Wheezing or Shortness of Breath. albuterol 2021-11 Yes [id number] 2.5mg Inhale 3 [facility] 2.5 mg /3 1-22 mL every 6 ity of mL (0.083 00:00: (six) [place] %) 00 hours as Medical nebulizer needed for Bran ch solution Wheezing or Shortness of Breath. budesonide- 2021-11 Yes [id number] 2{puff} Inhale 2 [facility] formoteroL 1-22 Puffs in ity o f (SYMBICORT) 00:00: the [place] 80-4.5 00 morning Medical mcg/actuati and 2 Branch on inhaler Puffs in the evening. Miscellaneo 2021-11 Yes [id number] J40: [facility] [place] [facility] 11-27 Brochitis ity of Supply Kit 00:00: - Dis[place]ense [place] 00 # 1 Medical Thad Branch Respironic s (okay for alternativ e brand) for nebulizer treatment ipratropium 2021-11 Yes [id number] .5mg Inhale 2.5 Univers 0.02 % 1-22 mL every 6 ity of nebulizer 00:00: (six) [place] solution 00 hours as Medical needed for Branch Wheezing or Shortness of Breath. albuterol 2021-11 Yes [id number] 2.5mg Inhale 3 [facility] 2.5 mg /3 1-22 mL every 6 ity of mL (0.083 00:00: (six) [place] %) 00 hours as Medical nebulizer needed for Bran ch solution Wheezing or Shortness of Breath. budesonide- 2021-11 Yes [id number] 2{puff} Inhale 2 [facility] formoteroL 1-22 Puffs in ity o f (SYMBICORT) 00:00: the [place] 80-4.5 00 morning Medical mcg/actuati and 2 Branch on inhaler Puffs in the evening. Miscellaneo 2021-11 Yes [id number] J40: [facility] [place] [facility] 11-27 [employer] [facility] 00:00: - [place]pense [place] 00 # 1 Medical Thad Branch Respironic s (okay for alternativ e brand) for nebulizer treatment ipratropium 2021-11 Yes [id number] .5mg Inhale 2.5 Univers 0.02 % 1-22 mL every 6 ity of nebulizer 00:00: (six) [place] solution 00 hours as Medical needed for Branch Wheezing or Shortness of Breath. albuterol 2021-11 Yes [id number] 2.5mg Inhale 3 [facility] 2.5 mg /3 1-22 mL every 6 ity of mL (0.083 00:00: (six) [place] %) 00 hours as Medical nebulizer needed for Bran ch solution Wheezing or Shortness of Breath. budesonide- 2021-11 Yes [id number] 2{puff} Inhale 2 [facility] formoteroL 1-22 Puffs in ity o f (SYMBICORT) 00:00: the [place] 80-4.5 00 morning Medical mcg/actuati and 2 Branch on inhaler Puffs in the evening. Miscellaneo 2021-11 Yes [id number] J40: [facility] [place] [facility] 11-27 Brochitis ity of Supply Kit 00:00: - [place] 00 # 1 Medical Thad Branch Respironic s (okay for alternativ e brand) for nebulizer treatment ipratropium 2021-11 Yes [id number] .5mg Inhale 2.5 [facility] 0.02 % 1-22 mL every 6 ity of nebulizer 00:00: (six) [place] solution 00 hours as Medical needed for Branch Wheezing or Shortness of Breath. albuterol 2021-11 Yes [id number] 2.5mg Inhale 3 [facility] 2.5 mg /3 1-22 mL every 6 ity of mL (0.083 00:00: (six) [place] %) 00 hours as Medical nebulizer needed for Bran ch solution Wheezing or Shortness of Breath. budesonide- 2021-11 Yes [id number] 2{puff} Inhale 2 [facility] formoteroL 1-22 Puffs in ity o f (SYMBICORT) 00:00: the [place] 80-4.5 00 morning Medical mcg/actuati and 2 Branch on inhaler Puffs in the evening. Miscellaneo 2021-11 Yes [id number] J40: [facility] [place] [facility] 11-27 Brochitis ity of Supply Kit 00:00: - Dispense [place] 00 # 1 Medical Thad Branch Respironic s (okay for alternativ e brand) for nebulizer treatment ipratropium 2021-11 Yes [id number] .5mg Inhale 2.5 [facility] 0.02 % 1-22 mL every 6 ity of nebulizer 00:00: (six) [place] solution 00 hours as Medical needed for Branch Wheezing or Shortness of Breath. albuterol 2021-11 Yes [id number] 2.5mg Inhale 3 [facility] 2.5 mg /3 1-22 mL every 6 ity of mL (0.083 00:00: (six) [place] %) 00 hours as Medical nebulizer needed for Bran ch solution Wheezing or Shortness of Breath. budesonide- 2021-11 Yes [id number] 2{puff} Inhale 2 [facility] formoteroL 1-22 Puffs in ity o f (SYMBICORT) 00:00: the [place] 80-4.5 00 morning Medical mcg/actuati and 2 Branch on inhaler Puffs in the evening. Miscellaneo 2021-11 Yes [id number] J40: [facility] [place] [facility] 11-27 Brochitis ity of Supply Kit 00:00: - Dispense [place] 00 # 1 Medical Thad Branch Respironic s (okay for alternativ e brand) for nebulizer treatment ipratropium 2021-11 Yes [id number] .5mg Inhale 2.5 Univers 0.02 % 1-22 mL every 6 ity of nebulizer 00:00: (six) [place] solution 00 hours as Medical needed for Branch Wheezing or Shortness of Breath. albuterol 2021-11 Yes [id number] 2.5mg Inhale 3 [facility] 2.5 mg /3 1-22 mL every 6 ity of mL (0.083 00:00: (six) [place] %) 00 hours as Medical nebulizer needed for Bran ch solution Wheezing or Shortness of Breath. budesonide- 2021-11 Yes [id number] 2{puff} Inhale 2 [facility] formoteroL 1-22 Puffs in ity o f (SYMBICORT) 00:00: the [place] 80-4.5 00 morning Medical mcg/actuati and 2 Branch on inhaler Puffs in the evening. Miscellaneo 2021-11 Yes [id number] J40: [facility] [place] [facility] 11-27 Brochitis ity of Supply Kit 00:00: - Dispense [place] 00 # 1 Medical Thad Branch Respironic s (okay for alternativ e brand) for nebulizer treatment ipratropium 2021-11 Yes [id number] .5mg Inhale 2.5 [facility] 0.02 % 1-22 mL every 6 ity of nebulizer 00:00: (six) [place] solution 00 hours as Medical needed for Branch Wheezing or Shortness of Breath. albuterol 2021-11 Yes [id number] 2.5mg Inhale 3 [facility] 2.5 mg /3 1-22 mL every 6 ity of mL (0.083 00:00: (six) [place] %) 00 hours as Medical nebulizer needed for Bran ch solution Wheezing or Shortness of Breath. budesonide- 2021-11 Yes [id number] 2{puff} Inhale 2 [facility] formoteroL 1-22 Puffs in ity o f (SYMBICORT) 00:00: the [place] 80-4.5 00 morning Medical mcg/actuati and 2 Branch on inhaler Puffs in the evening. Miscellaneo 2021-11 Yes [id number] J40: [facility] [place] [facility] 11-27 [employer] ity of Supply Kit 00:00: - Dispense [place] 00 # 1 Medical Thad Branch Respironic s (okay for alternativ e brand) for nebulizer treatment ipratropium 2021-11 Yes [id number] .5mg Inhale 2.5 [facility] 0.02 % 1-22 mL every 6 ity of nebulizer 00:00: (six) [place] solution 00 hours as Medical needed for Branch Wheezing or Shortness of Breath. albuterol 2021-11 Yes [id number] 2.5mg Inhale 3 [facility] 2.5 mg /3 1-22 mL every 6 ity of mL (0.083 00:00: (six) [place] %) 00 hours as Medical nebulizer needed for Bran ch solution Wheezing or Shortness of Breath. budesonide- 2021-11 Yes [id number] 2{puff} Inhale 2 [facility] formoteroL 1-22 Puffs in ity o f (SYMBICORT) 00:00: the [place] 80-4.5 00 morning Medical mcg/actuati and 2 Branch on inhaler Puffs in the evening. Miscellaneo 2021-11 Yes [id number] J40: [facility] [place] [facility] 11-27 [employer] ity of Supply Kit 00:00: - Dispense [place] 00 # 1 Medical Thad Branch Respironic s (okay for alternativ e brand) for nebulizer treatment ipratropium 2021-11 Yes [id number] .5mg Inhale 2.5 [facility] 0.02 % 1-22 mL every 6 ity of nebulizer 00:00: (six) [place] solution 00 hours as Medical needed for Branch Wheezing or Shortness of Breath. albuterol 2021-11 Yes [id number] 2.5mg Inhale 3 Univers 2.5 mg /3 1-22 mL every 6 ity of mL (0.083 00:00: (six) [place] %) 00 hours as Medical nebulizer needed for Bran ch solution Wheezing or Shortness of Breath. budesonide- 2021-11 Yes [id number] 2{puff} Inhale 2 [facility] formoteroL 1-22 Puffs in ity o f (SYMBICORT) 00:00: the [place] 80-4.5 00 morning Medical mcg/actuati and 2 Branch on inhaler Puffs in the evening. Miscellaneo 2021-11 Yes [id number] J40: [facility] [place] [facility] 11-27 Brochitis ity of Supply Kit 00:00: - Dispense [place] 00 # 1 Medical Thad Branch Respironic s (okay for alternativ e brand) for nebulizer treatment ipratropium 2021-11 Yes [id number] .5mg Inhale 2.5 [facility] 0.02 % 1-22 mL every 6 ity of nebulizer 00:00: (six) [place] solution 00 hours as Medical needed for Branch Wheezing or Shortness of Breath. albuterol 2021-11 Yes [id number] 2.5mg Inhale 3 Univers 2.5 mg /3 1-22 mL every 6 ity of mL (0.083 00:00: (six) [place] %) 00 hours as Medical nebulizer needed for Bran ch solution Wheezing or Shortness of Breath. budesonide- 2021-11 Yes [id number] 2{puff} Inhale 2 [facility] formoteroL 1-22 Puffs in ity o f (SYMBICORT) 00:00: the [place] 80-4.5 00 morning Medical mcg/actuati and 2 Branch on inhaler Puffs in the evening. Miscellaneo 2021-11 Yes [id number] J40: [facility] [place] [facility] 11-27 Brochitis ity of Supply Kit 00:00: - Dispense [place] 00 # 1 Medical Thad Branch Respironic s (okay for alternativ e brand) for nebulizer treatment ipratropium 2021-11 Yes [id number] .5mg Inhale 2.5 Univers 0.02 % 1-22 mL every 6 ity of nebulizer 00:00: (six) [place] solution 00 hours as Medical needed for Branch Wheezing or Shortness of Breath. albuterol 2021-11 Yes [id number] 2.5mg Inhale 3 Univers 2.5 mg /3 1-22 mL every 6 ity of mL (0.083 00:00: (six) [place] %) 00 hours as Medical nebulizer needed for Bran ch solution Wheezing or Shortness of Breath. budesonide- 2021-11 Yes [id number] 2{puff} Inhale 2 [facility] formoteroL 1-22 Puffs in ity o f (SYMBICORT) 00:00: the [place] 80-4.5 00 morning Medical mcg/actuati and 2 Branch on inhaler Puffs in the evening. Miscellaneo 2021-11 Yes [id number] J40: [facility] [place] [facility] 11-27 Brochitis ity of Supply Kit 00:00: - Dispense [place] 00 # 1 Medical Thad Branch Respironic s (okay for alternativ e brand) for nebulizer treatment ipratropium 2021-11 Yes [id number] .5mg Inhale 2.5 Univers 0.02 % 1-22 mL every 6 ity of nebulizer 00:00: (six) [place] solution 00 hours as Medical needed for Branch Wheezing or Shortness of Breath. albuterol 2021-11 Yes [id number] 2.5mg Inhale 3 Univers 2.5 mg /3 1-22 mL every 6 ity of mL (0.083 00:00: (six) [place] %) 00 hours as Medical nebulizer needed for Bran ch solution Wheezing or Shortness of Breath. budesonide- 2021-11 Yes [id number] 2{puff} Inhale 2 [facility] formoteroL 1-22 Puffs in ity o f (SYMBICORT) 00:00: the [place] 80-4.5 00 morning Medical mcg/actuati and 2 Branch on inhaler Puffs in the evening. Miscellaneo 2021-11 Yes [id number] J40: [facility] [place] [facility] 11-27 Brochitis ity of Supply Kit 00:00: - Dispense [place] 00 # 1 Medical Thad Branch Respironic s (okay for alternativ e brand) for nebulizer treatment amoxicillin 2021-11 Yes [id number] 1{tbl} Take 1 Univers -clavulanat 1-22 tablet by ity of e 00:00: mouth in [place] (AUGMENTIN) 00 the Medical 875-125 mg morning Branch per tablet and 1 tablet in the evening. albuterol 2021-11 Yes [id number] 2{puff} Inhale 2 [facility] 90 1-22 Puffs ity of mcg/actuati 00:00: every 6 [place] as on inhaler 00 (six) Medical hours as Branch needed for Wheezing or Shortness of Breath. ipratropium 2021-11 Yes [id number] .5mg Inhale 2.5 [facility] 0.02 % 1-22 mL every 6 ity of nebulizer 00:00: (six) [place] solution 00 hours as Medical needed for Branch Wheezing or Shortness of Breath. albuterol 2021-11 Yes [id number] 2.5mg Inhale 3 Univers 2.5 mg /3 1-22 mL every 6 ity of mL (0.083 00:00: (six) [place] %) 00 hours as Medical nebulizer needed for Bran ch solution Wheezing or Shortness of Breath. budesonide- 2021-11 Yes [id number] 2{puff} Inhale 2 [facility] formoteroL 1-22 Puffs in ity o f (SYMBICORT) 00:00: the [place] 80-4.5 00 morning Medical mcg/actuati and 2 Branch on inhaler Puffs in the evening. Miscellaneo 2021-11 Yes [id number] J40: [facility] Medical 1-22 Brochitis ity of Supply Kit 00:00: - Dispense [place] 00 # 1 Medical Thad Branch Respironic s (okay for alternativ e brand) for nebulizer treatment amoxicillin 2021-11 Yes [id number] 1{tbl} Take 1 Univers -clavulanat 1-22 tablet by ity of e 00:00: mouth in [place] (AUGMENTIN) 00 the Medical 875-125 mg morning Branch per tablet and 1 tablet in the evening. albuterol 2021-11 Yes [id number] 2{puff} Inhale 2 [facility] 90 1-22 Puffs ity of mcg/actuati 00:00: every 6 [place] as on inhaler 00 (six) Medical hours as Branch needed for Wheezing or Shortness of Breath. ipratropium 2021-11 Yes [id number] .5mg Inhale 2.5 Univers 0.02 % 1-22 mL every 6 ity of nebulizer 00:00: (six) [place] solution 00 hours as Medical needed for Branch Wheezing or Shortness of Breath. albuterol 2021-11 Yes [id number] 2.5mg Inhale 3 Univers 2.5 mg /3 1-22 mL every 6 ity of mL (0.083 00:00: (six) [place] %) 00 hours as Medical nebulizer needed for Bran ch solution Wheezing or Shortness of Breath. budesonide- 2021-11 Yes [id number] 2{puff} Inhale 2 [facility] formoteroL 1-22 Puffs in ity o f (SYMBICORT) 00:00: the [place] 80-4.5 00 morning Medical mcg/actuati and 2 Branch on inhaler Puffs in the evening. Miscellaneo 2021-11 Yes [id number] J40: [facility] Medical 1-22 Brochitis ity of Supply Kit 00:00: - Dispense [place] 00 # 1 Medical Thad Branch Respironic s (okay for alternativ e brand) for nebulizer treatment amoxicillin 2021-11 Yes [id number] 1{tbl} Take 1 Univers -clavulanat 1-22 tablet by ity of e 00:00: mouth in [place] (AUGMENTIN) 00 the Medical 875-125 mg morning Branch per tablet and 1 tablet in the evening. albuterol 2021-11 Yes [id number] 2{puff} Inhale 2 [facility] 90 1-22 Puffs ity of mcg/actuati 00:00: every 6 [place] as on inhaler 00 (six) Medical hours as Branch needed for Wheezing or Shortness of Breath. ipratropium 2021-11 Yes [id number] .5mg Inhale 2.5 Univers 0.02 % 1-22 mL every 6 ity of nebulizer 00:00: (six) [place] solution 00 hours as Medical needed for Branch Wheezing or Shortness of Breath. albuterol 2021-11 Yes [id number] 2.5mg Inhale 3 Univers 2.5 mg /3 1-22 mL every 6 ity of mL (0.083 00:00: (six) [place] %) 00 hours as Medical nebulizer needed for Bran ch solution Wheezing or Shortness of Breath. budesonide- 2021-11 Yes [id number] 2{puff} Inhale 2 [facility] formoteroL 1-22 Puffs in ity o f (SYMBICORT) 00:00: the [place] 80-4.5 00 morning Medical mcg/actuati and 2 Branch on inhaler Puffs in the evening. Miscellaneo 2021-11 Yes [id number] J40: [facility] [place] [facility] - Brochitis ity of Supply Kit 00:00: - Dispense [place] 00 # 1 Medical Thad Branch Respironic s (okay for alternativ e brand) for nebulizer treatment amoxicillin 2021-11 Yes [id number] 1{tbl} Take 1 Univers -clavulanat 1-22 tablet by ity of e 00:00: mouth in [place] (AUGMENTIN) 00 the Medical 875-125 mg morning Branch per tablet and 1 tablet in the evening. albuterol 2021-11 Yes [id number] 2{puff} Inhale 2 [facility] 90 1-22 Puffs ity of mcg/actuati 00:00: every 6 [place] as on inhaler 00 (six) Medical hours as Branch needed for Wheezing or Shortness of Breath. ipratropium 2021-11 Yes [id number] .5mg Inhale 2.5 Univers 0.02 % 1-22 mL every 6 ity of nebulizer 00:00: (six) [place] solution 00 hours as Medical needed for Branch Wheezing or Shortness of Breath. albuterol 2021-11 Yes [id number] 2.5mg Inhale 3 Univers 2.5 mg /3 1-22 mL every 6 ity of mL (0.083 00:00: (six) [place] %) 00 hours as Medical nebulizer needed for Bran ch solution Wheezing or Shortness of Breath. budesonide- 2021-11 Yes [id number] 2{puff} Inhale 2 [facility] formoteroL 1-22 Puffs in ity o f (SYMBICORT) 00:00: the [place] 80-4.5 00 morning Medical mcg/actuati and 2 Branch on inhaler Puffs in the evening. Miscellaneo 2021-11 Yes [id number] J40: [facility] [place] [facility] -22 Brochitis ity of Supply Kit 00:00: - Dispense [place] 00 # 1 Medical Thad Branch Respironic s (okay for alternativ e brand) for nebulizer treatment amoxicillin 2021-11 Yes [id number] 1{tbl} Take 1 Univers -clavulanat 1-22 tablet by ity of e 00:00: mouth in [place] (AUGMENTIN) 00 the Medical 875-125 mg morning Branch per tablet and 1 tablet in the evening. albuterol 2021-11 Yes [id number] 2{puff} Inhale 2 [facility] 90 1-22 Puffs ity of mcg/actuati 00:00: every 6 [place] as on inhaler 00 (six) Medical hours as Branch needed for Wheezing or Shortness of Breath. ipratropium 2021-11 Yes [id number] .5mg Inhale 2.5 Univers 0.02 % 1-22 mL every 6 ity of nebulizer 00:00: (six) [place] solution 00 hours as Medical needed for Branch Wheezing or Shortness of Breath. albuterol 2021-11 Yes [id number] 2.5mg Inhale 3 Univers 2.5 mg /3 1-22 mL every 6 ity of mL (0.083 00:00: (six) [place] %) 00 hours as Medical nebulizer needed for Bran ch solution Wheezing or Shortness of Breath. budesonide- 2021-11 Yes [id number] 2{puff} Inhale 2 [facility] formoteroL 1-22 Puffs in ity o f (SYMBICORT) 00:00: the [place] 80-4.5 00 morning Medical mcg/actuati and 2 Branch on inhaler Puffs in the evening. Miscellaneo 2021-11 Yes [id number] J40: [facility] Medical 1-22 Brochitis ity of Supply Kit 00:00: - Dispense [place] 00 # 1 Medical Thad Branch Respironic s (okay for alternativ e brand) for nebulizer treatment amoxicillin 2021-11 Yes [id number] 1{tbl} Take 1 Univers -clavulanat 1-22 tablet by ity of e 00:00: mouth in [place] (AUGMENTIN) 00 the Medical 875-125 mg morning Branch per tablet and 1 tablet in the evening. albuterol 2021-11 Yes [id number] 2{puff} Inhale 2 [facility] 90 1-22 Puffs ity of mcg/actuati 00:00: every 6 [place] as on inhaler 00 (six) Medical hours as Branch needed for Wheezing or Shortness of Breath. ipratropium 2021-11 Yes [id number] .5mg Inhale 2.5 Univers 0.02 % 1-22 mL every 6 ity of nebulizer 00:00: (six) [place] solution 00 hours as Medical needed for Branch Wheezing or Shortness of Breath. albuterol 2021-11 Yes [id number] 2.5mg Inhale 3 Univers 2.5 mg /3 1-22 mL every 6 ity of mL (0.083 00:00: (six) [place] %) 00 hours as Medical nebulizer needed for Bran ch solution Wheezing or Shortness of Breath. budesonide- 2021-11 Yes [id number] 2{puff} Inhale 2 [facility] formoteroL 1-22 Puffs in ity o f (SYMBICORT) 00:00: the [place] 80-4.5 00 morning Medical mcg/actuati and 2 Branch on inhaler Puffs in the evening. Miscellaneo 2021-11 Yes [id number] J40: [facility] Medical 1-22 Brochitis ity of Supply Kit 00:00: - Dispense [place] 00 # 1 Medical Thad Branch Respironic s (okay for alternativ e brand) for nebulizer treatment amoxicillin 2021-11 Yes [id number] 1{tbl} Take 1 Univers -clavulanat 1-22 tablet by ity of e 00:00: mouth in [place] (AUGMENTIN) 00 the Medical 875-125 mg morning Branch per tablet and 1 tablet in the evening. albuterol 2021-11 Yes [id number] 2{puff} Inhale 2 [facility] 90 1-22 Puffs ity of mcg/actuati 00:00: every 6 [place] as on inhaler 00 (six) Medical hours as Branch needed for Wheezing or Shortness of Breath. ipratropium 2021-11 Yes [id number] .5mg Inhale 2.5 Univers 0.02 % 1-22 mL every 6 ity of nebulizer 00:00: (six) [place] solution 00 hours as Medical needed for Branch Wheezing or Shortness of Breath. albuterol 2021-11 Yes [id number] 2.5mg Inhale 3 Univers 2.5 mg /3 1-22 mL every 6 ity of mL (0.083 00:00: (six) [place] %) 00 hours as Medical nebulizer needed for Bran ch solution Wheezing or Shortness of Breath. budesonide- 2021-11 Yes [id number] 2{puff} Inhale 2 [facility] formoteroL 1-22 Puffs in ity o f (SYMBICORT) 00:00: the [place] 80-4.5 00 morning Medical mcg/actuati and 2 Branch on inhaler Puffs in the evening. Miscellaneo 2021-11 Yes [id number] J40: [facility] Medical 11-27 Brochitis ity of Supply Kit 00:00: - Dispense [place] 00 # 1 Medical Thad Branch Respironic s (okay for alternativ e brand) for nebulizer treatment albuterol 2021-11- No [id number] 2{puff} Inhale 2 [facility] 90 1-22 03-21 Puffs ity of mcg/actuati 00:00: 00:00 every 6 [place] on inhaler 00 :00 (six) Medical hours as Branch needed for Wheezing or Shortness of Breath. albuterol 2021-11- No [id number] 2{puff} Inhale 2 [facility] 90 1-22 03-21 Puffs ity of mcg/actuati 00:00: 00:00 every 6 [place] on inhaler 00 :00 (six) Medical hours as Branch needed for Wheezing or Shortness of Breath. amoxicillin 2021-11- No [id number] 1{tbl} Take 1 Univers -clavulanat 11-27- tablet by it y of e 00:00: 00:00 mouth in [place] (AUGMENTIN) 00 :00 the Medical 875-125 mg morning Branch per tablet and 1 tablet in the evening. amoxicillin 2021-11- No [id number] 1{tbl} Take 1 [facility] -clavulanat 11-27-06 tablet by it y of e 00:00: 00:00 mouth in [place] (AUGMENTIN) 00 :00 the Medical 875-125 mg morning Branch per tablet and 1 tablet in the evening. amoxicillin 2021-11- No [id number] 1{tbl} Take 1 [facility] -clavulanat 11-27-06 tablet by it y of e 00:00: 00:00 mouth in [place] (AUGMENTIN) 00 :00 the Medical 875-125 mg morning Branch per tablet and 1 tablet in the evening. tirzepatide 2021-11 Yes 2.5mg inject 2.5 Univers (MOUNJARO) 0-20 mg under ity o f 2.5 mg/0.5 00:00: the [place] as mL PnIj 00 weekly. Medical Start Branch 2.5mg SC qWeek x 4 Weeks, then increase to 5 mg SC qWeek tirzepatide 2021-11 Yes 5mg inject 5 Un godfrey (MOUNJARO) 0-20 mg under ity o f 5 mg/0.5 mL 00:00: the [place] PnIj 00 weekly. Medical Start Branch 2.5mg SC qWeek x 4 Weeks, then increase to 5 mg SC qWeek Diclofenac 2021-11 Yes [id number] Apply 4g [facility] Sodium 0-20 to ity of (VOLTAREN) 00:00: affected [place] as 1 % gel 00 area QID Medical Branch Lidocaine 5 2021-11 Yes [id number] Apply to Univers % cream 0-20 area(s) 2 ity of 00:00: (two) [place] 00 times Medical daily as Branch needed for Pain (scale 4-6). Apply 5g to affected areas BID PRN Insulin 2021-11 Yes [id number] INJECT 53 U nivers Glargine 0-20 UNITS ity of (LANTUS 00:00: [place] SOLOST[place] 00 USLY TWICE Medic al U-100 DAILY Branch INSULIN) 100 unit/mL (3 mL) injection tirzepatide 2021-11 Yes 2.5mg inject 2.5 Univers (MOUNJARO) 0-20 mg under ity o f 2.5 mg/0.5 00:00: the skin [place] as mL PnIj 00 weekly. Medical Start Branch 2.5mg SC qWeek x 4 Weeks, then increase to 5 mg SC qWeek tirzepatide 2021-11 Yes 5mg inject 5 Un [place] (MOUNJARO) 0-20 mg under ity o f 5 mg/0.5 mL 00:00: the skin [place] PnIj 00 weekly. Medical Start Branch 2.5mg SC qWeek x 4 Weeks, then increase to 5 mg SC qWeek Diclofenac 2021-11 Yes [id number] Apply 4g [facility] Sodium 0-20 to ity of (VOLTAREN) 00:00: affected [place] as 1 % gel 00 area QID Medical Branch Lidocaine 5 2021-11 Yes [id number] Apply to Univers % cream 0-20 area(s) 2 ity of 00:00: (two) [place] 00 times Medical daily as Branch needed for Pain (scale 4-6). Apply 5g to affected areas BID PRN Insulin 2021-11 Yes [id number] INJECT 53 U nivers Glargine 0-20 UNITS ity of (LANTUS 00:00: [place] SOL[place] 00 USLY TWICE Medic al U-100 DAILY Branch INSULIN) 100 unit/mL (3 mL) injection tirzepatide 2021-11 Yes 2.5mg inject 2.5 Univers (MOUNJARO) 0-20 mg under ity o f 2.5 mg/0.5 00:00: the skin [place] as mL PnIj 00 weekly. Medical Start Branch 2.5mg SC qWeek x 4 Weeks, then increase to 5 mg SC qWeek tirzepatide 2021-11 Yes 5mg inject 5 Un [place] (MOUNJARO) 0-20 mg under ity o f 5 mg/0.5 mL 00:00: the [place] PnIj 00 weekly. Medical Start Branch 2.5mg SC qWeek x 4 Weeks, then increase to 5 mg SC qWeek Diclofenac 2021-11 Yes [id number] Apply 4g [facility] Sodium 0-20 to ity of (VOLTAREN) 00:00: affected [place] as 1 % gel 00 area QID Medical Branch Lidocaine 5 2021-11 Yes [id number] Apply to Univers % cream 0-20 area(s) 2 ity of 00:00: (two) [place] 00 times Medical daily as Branch needed for Pain (scale 4-6). Apply 5g to affected areas BID PRN Insulin 2021-11 Yes [id number] INJECT 53 U nivers Glargine 0-20 UNITS ity of (LANTUS 00:00: [place] SOL[place] 00 USLY TWICE Medic al U-100 DAILY Branch INSULIN) 100 unit/mL (3 mL) injection tirzepatide 2021-11 Yes 2.5mg inject 2.5 Univers (MOUNJARO) 0-20 mg under ity o f 2.5 mg/0.5 00:00: the skin [place] as mL PnIj 00 weekly. Medical Start Branch 2.5mg SC qWeek x 4 Weeks, then increase to 5 mg SC qWeek tirzepatide 2021-11 Yes 5mg inject 5 [facility] [place] (MOUNJARO) 0-20 mg under ity o f 5 mg/0.5 mL 00:00: the skin [place] PnIj 00 weekly. Medical Start Branch 2.5mg SC qWeek x 4 Weeks, then increase to 5 mg SC qWeek Diclofenac 2021-11 Yes [id number] Apply 4g [facility] Sodium 0-20 to ity of (VOLTAREN) 00:00: affected [place] as 1 % gel 00 area QID Medical Branch Lidocaine 5 2021-11 Yes [id number] Apply to [facility] % cream 0-20 area(s) 2 ity of 00:00: (two) [place] 00 times Medical daily as Branch needed for Pain (scale 4-6). Apply 5g to affected areas BID PRN Insulin 2021-11 Yes [id number] INJECT 53 U nivers Glargine 0-20 UNITS ity of (LANTUS 00:00: [place] SOL[place] 00 USLY TWICE Medic al U-100 DAILY Branch INSULIN) 100 unit/mL (3 mL) injection tirzepatide 2021-11 Yes 2.5mg inject 2.5 Univers (MOUNJARO) 0-20 mg under ity o f 2.5 mg/0.5 00:00: the skin [place] as mL PnIj 00 weekly. Medical Start Branch 2.5mg SC qWeek x 4 Weeks, then increase to 5 mg SC qWeek tirzepatide 2021-11 Yes 5mg inject 5 [facility] [place] (MOUNJARO) 0-20 mg under ity o f 5 mg/0.5 mL 00:00: the skin [place] PnIj 00 weekly. Medical Start Branch 2.5mg SC qWeek x 4 Weeks, then increase to 5 mg SC qWeek Diclofenac 2021-11 Yes [id number] Apply 4g [facility] Sodium 0-20 to ity of (VOLTAREN) 00:00: affected [place] as 1 % gel 00 area QID Medical Branch Lidocaine 5 2021-11 Yes [id number] Apply to [facility] % cream 0-20 area(s) 2 ity of 00:00: (two) [place] 00 times Medical daily as Branch needed for Pain (scale 4-6). Apply 5g to affected areas BID PRN Insulin 2021-11 Yes [id number] INJECT 53 U nivers Glargine 0-20 UNITS ity of (LANTUS 00:00: [place] 00 USLY TWICE Medic al U-100 DAILY Branch INSULIN) 100 unit/mL (3 mL) injection tirzepatide 2021-11 Yes 2.5mg inject 2.5 Univers (MOUNJARO) 0-20 mg under ity o f 2.5 mg/0.5 00:00: the skin [place] as mL PnIj 00 weekly. Medical Start Branch 2.5mg SC qWeek x 4 Weeks, then increase to 5 mg SC qWeek tirzepatide 2021-11 Yes 5mg inject 5 [facility] [place] (MOUNJARO) 0-20 mg under ity o f 5 mg/0.5 mL 00:00: the skin [place] PnIj 00 weekly. Medical Start Branch 2.5mg SC qWeek x 4 Weeks, then increase to 5 mg SC qWeek Diclofenac 2021-11 Yes [id number] Apply 4g [facility] Sodium 0-20 to ity of (VOLTAREN) 00:00: affected [place] as 1 % gel 00 area QID Medical Branch Lidocaine 5 2021-11 Yes [id number] Apply to [facility] % cream 0-20 area(s) 2 ity of 00:00: (two) [place] 00 times Medical daily as Branch needed for Pain (scale 4-6). Apply 5g to affected areas BID PRN Insulin 2021-11 Yes [id number] INJECT 53 U nivers Glargine 0-20 UNITS ity of (LANTUS 00:00: [place] SOL[place] 00 USLY TWICE Medic al U-100 DAILY Branch INSULIN) 100 unit/mL (3 mL) injection tirzepatide 2021-11 Yes 2.5mg inject 2.5 [facility] ([facility]) 0-20 mg under ity o f 2.5 mg/0.5 00:00: the skin [place] as mL PnIj 00 weekly. [facility] 2.5mg SC qWeek x 4 Weeks, then increase to 5 mg [facility] qWeek tirzepatide 2021-11 Yes 5mg inject 5 [facility] ([facility]) 0-20 mg under ity o f 5 mg/0.5 mL 00:00: [place] PnIj 00 weekly. [facility] 2.5mg SC qWeek x 4 Weeks, then increase to 5 mg [facility] qWeek Diclofenac 2021-11 Yes [id number] Apply 4g [facility] Sodium 0-20 to ity of (VOLTAREN) 00:00: affected [place] 1 % gel 00 area QID Medical [facility] Lidocaine 5 2021-11 Yes [id number] Apply to [facility] % cream 0-20 area(s) 2 ity of 00:00: (two) [place] 00 times Medical daily as Branch needed for Pain (scale 4-6). Apply 5g to affected areas BID PRN Insulin 2021-11 Yes [id number] INJECT 53 [facility] Glargine 0-20 UNITS ity of ([place] 00:00: [place] [facility] 00 USLY TWICE Medic al U-100 DAILY Branch INSULIN) 100 unit/mL (3 mL) injection tirzepatide 2021-11 Yes 2.5mg inject 2.5 [facility] ([facility]) 0-20 mg under ity o f 2.5 mg/0.5 00:00: the skin [place] mL PnIj 00 weekly. [facility] 2.5mg SC qWeek x 4 Weeks, then increase to 5 mg [place] qWeek tirzepatide 2021-11 Yes 5mg inject 5 [facility] ([facility]) 0-20 mg under ity o f 5 mg/0.5 mL 00:00: the skin [place] PnIj 00 weekly. [facility] 2.5mg SC qWeek x 4 Weeks, then increase to 5 mg SC qWeek Diclofenac 2021-11 Yes [id number] Apply 4g [facility] Sodium 0-20 to ity of (VOLTAREN) 00:00: affected [place] 1 % gel 00 area QID [facility] Lidocaine 5 2021-11 Yes [id number] Apply to [facility] % cream 0-20 area(s) 2 ity of 00:00: (two) [place] 00 times Medical daily as Branch needed for Pain (scale 4-6). Apply 5g to affected areas BID PRN Insulin 2021-11 Yes [id number] INJECT 53 [facility] Gl[facility] 0-20 UNITS [facility]y of ([place] 00:00: [place] [facility] 00 USLY TWICE Medic al U-100 DAILY Branch INSULIN) 100 unit/mL (3 mL) injection tirzepatide 2021-11 Yes 2.5mg inject 2.5 [facility] ([facility]) 0-20 mg under ity o f 2.5 mg/0.5 00:00: the skin [place] mL PnIj 00 weekly. [facility] 2.5mg SC qWeek x 4 Weeks, then increase to 5 mg [facility] qWeek tirzepatide 2021-11 Yes 5mg inject 5 [facility] ([facility]) 0-20 mg under ity o f 5 mg/0.5 mL 00:00: the skin [place] PnIj 00 weekly. [facility] 2.5mg SC qWeek x 4 Weeks, then increase to 5 mg SC qWeek Diclofenac 2021-11 Yes [id number] Apply 4g [facility] Sodium 0-20 to ity of (VOLTAREN) 00:00: affected [place] 1 % gel 00 area QID [facility] Lidocaine 5 2021-11 Yes [id number] Apply to [facility] % cream 0-20 area(s) 2 ity of 00:00: (two) [place] 00 times Medical daily as Branch needed for Pain (scale 4-6). Apply 5g to affected areas BID PRN Insulin 2021-11 Yes [id number] INJECT 53 [facility] [place] 0-20 UNITS [facility] of ([place] 00:00: [place] [facility] [place] USLY TWICE Medic al U-100 DAILY Branch INSULIN) 100 unit/mL (3 mL) injection tirzepatide 2021-11 Yes 2.5mg inject 2.5 [facility] ([facility]) 0-20 mg under ity o f 2.5 mg/0.5 00:00: the skin [place] mL PnIj 00 weekly. [facility] 2.5mg SC qWeek x 4 Weeks, then increase to 5 mg [facility] qWeek tirzepatide 2021-11 Yes 5mg inject 5 [facility] ([facility]) 0-20 mg under ity o f 5 mg/0.5 mL 00:00: the skin [place] PnIj 00 weekly. [facility] 2.5mg SC qWeek x 4 Weeks, then increase to 5 mg SC qWeek Diclofenac 2021-11 Yes [id number] Apply 4g [facility] Sodium 0-20 to ity of (VOLTAREN) 00:00: affected [place] 1 % gel 00 area QID [facility] Lidocaine 5 2021-11 Yes [id number] Apply to [facility] % cream 0-20 area(s) 2 ity of 00:00: (two) [place] 00 times Medical daily as Branch needed for Pain (scale 4-6). Apply 5g to affected areas BID PRN Insulin 2021-11 Yes [id number] INJECT 53 [facility] Gl[facility] 0-20 UNITS [facility]y of ([place] 00:00: [place] [facility] 00 USLY TWICE Medic al U-100 DAILY Branch INSULIN) 100 unit/mL (3 mL) injection tirzepatide 2021-11 Yes 2.5mg inject 2.5 [facility] ([facility]) 0-20 mg under ity o f 2.5 mg/0.5 00:00: the skin [place] PnIj 00 weekly. [facility] 2.5mg SC qWeek x 4 Weeks, then increase to 5 mg SC qWeek tirzepatide 2021-11 Yes 5mg inject 5 [facility] ([facility]) 0-20 mg under ity o f 5 mg/0.5 mL 00:00: the skin [place] PnIj 00 weekly. [facility] 2.5mg SC qWeek x 4 Weeks, then increase to 5 mg SC qWeek Diclofenac 2021-11 Yes [id number] Apply 4g [facility] Sodium 0-20 to ity of (VOLTAREN) 00:00: affected [place] 1 % gel 00 area QID [facility] Lidocaine 5 2021-11 Yes [id number] Apply to [facility] % cream 0-20 area(s) 2 ity of 00:00: (two) [place] 00 times Medical daily as Branch needed for Pain (scale 4-6). Apply 5g to affected areas BID PRN Insulin 2021-11 Yes [id number] INJECT 53 [facility] [place] 0-20 UNITS [facility]y of ([place] 00:00: [place] [facility] 00 USLY TWICE Medic al U-100 DAILY Branch INSULIN) 100 unit/mL (3 mL) injection tirzepatide 2021-11 Yes 2.5mg inject 2.5 [facility] ([facility]) 0-20 mg under ity o f 2.5 mg/0.5 00:00: the skin [place] PnIj 00 weekly. [facility] 2.5mg SC qWeek x 4 Weeks, then increase to 5 mg SC qWeek tirzepatide 2021-11 Yes 5mg inject 5 [facility] ([facility]) 0-20 mg under ity o f 5 mg/0.5 mL 00:00: the skin [place] PnIj 00 weekly. [facility] 2.5mg SC qWeek x 4 Weeks, then increase to 5 mg SC qWeek Diclofenac 2021-11 Yes [id number] Apply 4g [facility] Sodium 0-20 to ity of (VOLTAREN) 00:00: affected [place] 1 % gel 00 area QID [facility] Lidocaine 5 2021-11 Yes [id number] Apply to [facility] % cream 0-20 area(s) 2 ity of 00:00: (two) [place] 00 times Medical daily as Branch needed for Pain (scale 4-6). Apply 5g to affected areas BID PRN Insulin 2021-11 Yes [id number] INJECT 53 [facility] [place] 0-20 UNITS [facility]y of ([place] 00:00: [place] [facility] 00 USLY TWICE Medic al U-100 DAILY Branch INSULIN) 100 unit/mL (3 mL) injection tirzepatide 2021-11 Yes 2.5mg inject 2.5 [facility] ([facility]) 0-20 mg under ity o f 2.5 mg/0.5 00:00: the skin [place] PnIj 00 weekly. [facility] 2.5mg SC qWeek x 4 Weeks, then increase to 5 mg SC qWeek tirzepatide 2021-11 Yes 5mg inject 5 [facility] ([facility]) 0-20 mg under ity o f 5 mg/0.5 mL 00:00: the skin [place] PnIj 00 weekly. [facility] 2.5mg SC qWeek x 4 Weeks, then increase to 5 mg SC qWeek Diclofenac 2021-11 Yes [id number] Apply 4g [facility] Sodium 0-20 to ity of (VOLTAREN) 00:00: affected [place] 1 % gel 00 area QID [facility] Lidocaine 5 2021-11 Yes [id number] Apply to [facility] % cream 0-20 area(s) 2 ity of 00:00: (two) [place] 00 times Medical daily as Branch needed for Pain (scale 4-6). Apply 5g to affected areas BID PRN Insulin 2021-11 Yes [id number] INJECT 53 [facility] [place] 0-20 UNITS [facility]y of ([place] 00:00: [place] [facility] 00 USLY TWICE Medic al U-100 DAILY Branch INSULIN) 100 unit/mL (3 mL) injection tirzepatide 2021-11 Yes 2.5mg inject 2.5 [facility] ([facility]) 0-20 mg under ity o f 2.5 mg/0.5 00:00: the skin [place] PnIj 00 weekly. [facility] 2.5mg SC qWeek x 4 Weeks, then increase to 5 mg SC qWeek tirzepatide 2021-11 Yes 5mg inject 5 [facility] ([facility]) 0-20 mg under ity o f 5 mg/0.5 mL 00:00: the skin [place] PnIj 00 weekly. [facility] 2.5mg SC qWeek x 4 Weeks, then increase to 5 mg SC qWeek Diclofenac 2021-11 Yes [id number] Apply 4g [facility] Sodium 0-20 to ity of (VOLTAREN) 00:00: affected [place] 1 % gel 00 area QID [facility] Lidocaine 5 2021-11 Yes [id number] Apply to [facility] % cream 0-20 area(s) 2 ity of 00:00: (two) [place] 00 times Medical daily as Branch needed for Pain (scale 4-6). Apply 5g to affected areas BID PRN Insulin 2021-11 Yes [id number] INJECT 53 [facility] [place] 0-20 UNITS ity of ([place] 00:00: [place] [facility] 00 USLY TWICE Medic al U-100 DAILY Branch INSULIN) 100 unit/mL (3 mL) injection tirzepatide 2021-11 Yes 2.5mg inject 2.5 [facility] ([facility]) 0-20 mg under ity o f 2.5 mg/0.5 00:00: the skin [place] mL PnIj 00 weekly. [facility] 2.5mg SC qWeek x 4 Weeks, then increase to 5 mg SC qWeek tirzepatide 2021-11 Yes 5mg inject 5 [facility] ([facility]) 0-20 mg under ity o f 5 mg/0.5 mL 00:00: the skin [place] PnIj 00 weekly. [facility] 2.5mg SC qWeek x 4 Weeks, then increase to 5 mg SC qWeek Diclofenac 2021-11 Yes [id number] Apply 4g [facility] Sodium 0-20 to ity of (VOLTAREN) 00:00: affected [place] 1 % gel 00 area QID [facility] Lidocaine 5 2021-11 Yes [id number] Apply to [facility] % cream 0-20 area(s) 2 ity of 00:00: (two) [place] 00 times Medical daily as Branch needed for Pain (scale 4-6). Apply 5g to affected areas BID PRN Insulin 2021-11 Yes [id number] INJECT 53 [facility] [place] 0-20 UNITS ity of ([place] 00:00: [place] [facility] 00 USLY TWICE Medic al U-100 DAILY Branch INSULIN) 100 unit/mL (3 mL) injection tirzepatide 2021-11 Yes 2.5mg inject 2.5 [facility] ([facility]) 0-20 mg under ity o f 2.5 mg/0.5 00:00: the skin [place] PnIj 00 weekly. [facility] 2.5mg SC qWeek x 4 Weeks, then increase to 5 mg SC qWeek tirzepatide 2021-11 Yes 5mg inject 5 [facility] ([facility]) 0-20 mg under ity o f 5 mg/0.5 mL 00:00: the skin [place] PnIj 00 weekly. [facility] 2.5mg SC qWeek x 4 Weeks, then increase to 5 mg SC qWeek Diclofenac 2021-11 Yes [id number] Apply 4g [facility] Sodium 0-20 to ity of (VOLTAREN) 00:00: affected [place] [facility] 1 % gel 00 area QID [facility] Lidocaine 5 2021-11 Yes [id number] Apply to [facility] % cream 0-20 area(s) 2 ity of 00:00: (two) [place] 00 times Medical daily as Branch needed for Pain (scale 4-6). Apply 5g to affected areas BID PRN tirzepatide 2021-11 Yes 2.5mg inject 2.5 [facility] ([facility]) 0-20 mg under ity o f 2.5 mg/0.5 00:00: the skin [place] PnIj 00 weekly. [facility] 2.5mg SC qWeek x 4 Weeks, then increase to 5 mg SC qWeek tirzepatide 2021-11 Yes 5mg inject 5 [facility] ([facility]) 0-20 mg under ity o f 5 mg/0.5 mL 00:00: the skin [place] PnIj 00 weekly. [facility] Start [facility] 2.5mg SC qWeek x 4 Weeks, then increase to 5 mg SC qWeek Diclofenac 2021-11 Yes [id number] Apply 4g [facility] Sodium 0-20 to ity of (VOLTAREN) 00:00: affected [place] 1 % gel 00 area QID [facility] Lidocaine 5 2021-11 Yes [id number] Apply to [facility] % cream 0-20 area(s) 2 ity of 00:00: (two) [place] 00 times Medical daily as Branch needed for Pain (scale 4-6). Apply 5g to affected areas BID PRN tirzepatide 2021-11 Yes 2.5mg inject 2.5 [facility] ([facility]) 0-20 mg under ity o f 2.5 mg/0.5 00:00: the skin [place] mL PnIj 00 weekly. [facility] Start [facility] 2.5mg SC qWeek x 4 Weeks, then increase to 5 mg SC qWeek tirzepatide 2021-11 Yes 5mg inject 5 [facility] ([facility]) 0-20 mg under ity o f 5 mg/0.5 mL 00:00: the skin [place] PnIj 00 weekly. [facility] Start [facility] 2.5mg SC qWeek x 4 Weeks, then increase to 5 mg SC qWeek Diclofenac 2021-11 Yes [id number] Apply 4g [facility] Sodium 0-20 to ity of (VOLTAREN) 00:00: affected [place] 1 % gel 00 area QID [facility] Lidocaine 5 2021-11 Yes [id number] Apply to [facility] % cream 0-20 area(s) 2 ity of 00:00: (two) [place] 00 times Medical daily as Branch needed for Pain (scale 4-6). Apply 5g to affected areas BID PRN tirzepatide 2021-11 Yes 2.5mg inject 2.5 [facility] ([facility]) 0-20 mg under ity o f 2.5 mg/0.5 00:00: the skin [place] PnIj 00 weekly. [facility] 2.5mg SC qWeek x 4 Weeks, then increase to 5 mg SC qWeek tirzepatide 2021-11 Yes 5mg inject 5 [facility] ([facility]) 0-20 mg under ity o f 5 mg/0.5 mL 00:00: the skin [place] Pn[facility]j 00 weekly. [facility] Start [facility] 2.5mg SC qWeek x 4 Weeks, then increase to 5 mg SC qWeek Diclofenac 2021-11 Yes [id number] Apply 4g [facility] Sodium 0-20 to ity of (VOLTAREN) 00:00: affected [place] 1 % gel 00 area QID [facility] Lidocaine 5 2021-11 Yes [id number] Apply to [facility] % cream 0-20 area(s) 2 ity of 00:00: (two) [place] 00 times Medical daily as Branch needed for Pain (scale 4-6). Apply 5g to affected areas BID PRN tirzepatide 2021-11 Yes 2.5mg inject 2.5 [facility] ([facility]) 0-20 mg under ity o f 2.5 mg/0.5 00:00: the skin [place] PnIj 00 weekly. [facility] Start [facility] 2.5mg SC qWeek x 4 Weeks, then increase to 5 mg SC qWeek tirzepatide 2021-11 Yes 5mg inject 5 [facility] ([facility]) 0-20 mg under ity o f 5 mg/0.5 mL 00:00: the skin [place] PnIj 00 weekly. [facility] Start [facility] 2.5mg SC qWeek x 4 Weeks, then increase to 5 mg SC qWeek Diclofenac 2021-11 Yes [id number] Apply 4g [facility] Sodium 0-20 to ity of (VOLTAREN) 00:00: affected [place] 1 % gel 00 area QID [facility] Lidocaine 5 2021-11 Yes [id number] Apply to [facility] % cream 0-20 area(s) 2 ity of 00:00: (two) [place] 00 times Medical daily as Branch needed for Pain (scale 4-6). Apply 5g to affected areas BID PRN tirzepatide 2021-11 Yes 2.5mg inject 2.5 [facility] ([facility]) 0-20 mg under ity o f 2.5 mg/0.5 00:00: the skin [place] PnIj 00 weekly. [facility] Start [facility] 2.5mg SC qWeek x 4 Weeks, then increase to 5 mg SC qWeek tirzepatide 2021-11 Yes 5mg inject 5 [facility] ([facility]) 0-20 mg under ity o f 5 mg/0.5 mL 00:00: the skin [place] PnIj 00 weekly. [facility] Start [facility] 2.5mg SC qWeek x 4 Weeks, then increase to 5 mg SC qWeek Diclofenac 2021-11 Yes [id number] Apply 4g [facility] Sodium 0-20 to ity of (VOLTAREN) 00:00: affected [place] 1 % gel 00 area QID [facility] Lidocaine 5 2021-11 Yes [id number] Apply to [facility] % cream 0-20 area(s) 2 ity of 00:00: (two) [place] 00 times Medical daily as Branch needed for Pain (scale 4-6). Apply 5g to affected areas BID PRN tirzepatide 2021-11 Yes 2.5mg inject 2.5 [facility] ([facility]) 0-20 mg under ity o f 2.5 mg/0.5 00:00: the skin [place] PnIj 00 weekly. [facility] Start [facility] 2.5mg SC qWeek x 4 Weeks, then increase to 5 mg SC qWeek tirzepatide 2021-11 Yes 5mg inject 5 [facility] ([facility]) 0-20 mg under ity o f 5 mg/0.5 mL 00:00: the skin [place] PnIj 00 weekly. [facility] Start [facility] 2.5mg SC qWeek x 4 Weeks, then increase to 5 mg SC qWeek Diclofenac 2021-11 Yes [id number] Apply 4g [facility] Sodium 0-20 to ity of (VOLTAREN) 00:00: affected [place] 1 % gel 00 area QID [facility] Lidocaine 5 2021-11 Yes [id number] Apply to [facility] % cream 0-20 area(s) 2 ity of 00:00: (two) [place] 00 times Medical daily as Branch needed for Pain (scale 4-6). Apply 5g to affected areas BID PRN tirzepatide 2021-11 Yes 2.5mg inject 2.5 [facility] ([facility]) 0-20 mg under ity o f 2.5 mg/0.5 00:00: the skin [place] PnIj 00 weekly. [facility] Start [facility] 2.5mg SC qWeek x 4 Weeks, then increase to 5 mg SC qWeek tirzepatide 2021-11 Yes 5mg inject 5 [facility] ([facility]) 0-20 mg under ity o f 5 mg/0.5 mL 00:00: the skin [place] PnIj 00 weekly. [facility] Start [facility] 2.5mg SC qWeek x 4 Weeks, then increase to 5 mg SC qWeek Diclofenac 2021-11 Yes [id number] Apply 4g [facility] Sodium 0-20 to ity of (VOLTAREN) 00:00: affected [place] 1 % gel 00 area QID [facility] Lidocaine 5 2021-11 Yes [id number] Apply to [facility] % cream 0-20 area(s) 2 ity of 00:00: (two) [place] 00 times Medical daily as Branch needed for Pain (scale 4-6). Apply 5g to affected areas BID PRN tirzepatide 2021-11 Yes 2.5mg inject 2.5 [facility] ([facility]) 0-20 mg under ity o f 2.5 mg/0.5 00:00: the skin [place] PnIj 00 weekly. [facility] 2.5mg SC qWeek x 4 Weeks, then increase to 5 mg SC qWeek tirzepatide 2021-11 Yes 5mg inject 5 [facility] ([facility]) 0-20 mg under ity o f 5 mg/0.5 mL 00:00: the skin [place] PnIj 00 weekly. [facility] 2.5mg SC qWeek x 4 Weeks, then increase to 5 mg SC qWeek Diclofenac 2021-11 Yes [id number] Apply 4g [facility] Sodium 0-20 to ity of (VOLTAREN) 00:00: affected [place] [facility] 1 % gel 00 area QID [facility] Lidocaine 5 2021-11 Yes [id number] Apply to [facility] % cream 0-20 area(s) 2 ity of 00:00: (two) [place] 00 times Medical daily as Branch needed for Pain (scale 4-6). Apply 5g to affected areas BID PRN tirzepatide 2021-11 Yes 2.5mg inject 2.5 [facility] ([facility]) 0-20 mg under ity o f 2.5 mg/0.5 00:00: the skin [place] PnIj 00 weekly. [facility] Start [facility] 2.5mg SC qWeek x 4 Weeks, then increase to 5 mg SC qWeek tirzepatide 2021-11 Yes 5mg inject 5 [facility] ([facility]) 0-20 mg under ity o f 5 mg/0.5 mL 00:00: the skin [place] PnIj 00 weekly. [facility] Start [facility] 2.5mg SC qWeek x 4 Weeks, then increase to 5 mg SC qWeek Diclofenac 2021-11 Yes [id number] Apply 4g [facility] Sodium 0-20 to ity of (VOLTAREN) 00:00: affected [place] [facility] 1 % gel 00 area QID [facility] Lidocaine 5 2021-11 Yes [id number] Apply to [facility] % cream 0-20 area(s) 2 ity of 00:00: (two) [place] 00 times Medical daily as Branch needed for Pain (scale 4-6). Apply 5g to affected areas BID PRN tirzepatide 2021-11 Yes 2.5mg inject 2.5 [facility] ([facility]) 0-20 mg under ity o f 2.5 mg/0.5 00:00: the skin [place] PnIj 00 weekly. [facility] Start [facility] 2.5mg SC qWeek x 4 Weeks, then increase to 5 mg SC qWeek tirzepatide 2021-11 Yes 5mg inject 5 [facility] ([facility]) 0-20 mg under ity o f 5 mg/0.5 mL 00:00: the skin [place] Pn[facility]j 00 weekly. [facility] Start [facility] 2.5mg SC qWeek x 4 Weeks, then increase to 5 mg SC qWeek Diclofenac 2021-11 Yes [id number] Apply 4g [facility] Sodium 0-20 to ity of (VOLTAREN) 00:00: affected [place] 1 % gel 00 area QID [facility] Lidocaine 5 2021-11 Yes [id number] Apply to [facility] % cream 0-20 area(s) 2 ity of 00:00: (two) [place] 00 times Medical daily as Branch needed for Pain (scale 4-6). Apply 5g to affected areas BID PRN tirzepatide 2021-11 Yes 2.5mg inject 2.5 [facility] ([facility]) 0-20 mg under ity o f 2.5 mg/0.5 00:00: the skin [place] PnIj 00 weekly. [facility] Start [facility] 2.5mg SC qWeek x 4 Weeks, then increase to 5 mg SC qWeek tirzepatide 2021-11 Yes 5mg inject 5 [facility] ([facility]) 0-20 mg under ity o f 5 mg/0.5 mL 00:00: the skin [place] Pn[facility]j 00 weekly. [facility] 2.5mg SC qWeek x 4 Weeks, then increase to 5 mg SC qWeek Diclofenac 2021-11 Yes [id number] Apply 4g [facility] Sodium 0-20 to ity of (VOLTAREN) 00:00: affected [place] [facility] 1 % gel 00 area QID [facility] Lidocaine 5 2021-11 Yes [id number] Apply to [facility] % cream 0-20 area(s) 2 ity of 00:00: (two) [place] 00 times Medical daily as Branch needed for Pain (scale 4-6). Apply 5g to affected areas BID PRN tirzepatide 2021-11 Yes 2.5mg inject 2.5 [facility] ([facility]) 0-20 mg under ity o f 2.5 mg/0.5 00:00: the skin [place] PnIj 00 weekly. [facility] Start [facility] 2.5mg SC qWeek x 4 Weeks, then increase to 5 mg SC qWeek tirzepatide 2021-11 Yes 5mg inject 5 [facility] ([facility]) 0-20 mg under ity o f 5 mg/0.5 mL 00:00: the skin [place] Pn[facility]j 00 weekly. [facility] Start [facility] 2.5mg SC qWeek x 4 Weeks, then increase to 5 mg SC qWeek Diclofenac 2021-11 Yes [id number] Apply 4g [facility] Sodium 0-20 to ity of (VOLTAREN) 00:00: affected [place] [facility] 1 % gel 00 area QID [facility] Lidocaine 5 2021-11 Yes [id number] Apply to [facility] % cream 0-20 area(s) 2 ity of 00:00: (two) [place] 00 times Medical daily as Branch needed for Pain (scale 4-6). Apply 5g to affected areas BID PRN tirzepatide 2021-11 Yes 2.5mg inject 2.5 [facility] ([facility]) 0-20 mg under ity o f 2.5 mg/0.5 00:00: the skin [place] mL PnIj 00 weekly. [facility] Start [facility] 2.5mg SC qWeek x 4 Weeks, then increase to 5 mg SC qWeek tirzepatide 2021-11 Yes 5mg inject 5 [facility] ([facility]) 0-20 mg under ity o f 5 mg/0.5 mL 00:00: the skin [place] Pn[facility]j 00 weekly. [facility] Start [facility] 2.5mg SC qWeek x 4 Weeks, then increase to 5 mg SC qWeek Diclofenac 2021-11 Yes [id number] Apply 4g [facility] Sodium 0-20 to ity of (VOLTAREN) 00:00: affected [place] [facility] 1 % gel 00 area QID [facility] Lidocaine 5 2021-11 Yes [id number] Apply to [facility] % cream 0-20 area(s) 2 ity of 00:00: (two) [place] 00 times Medical daily as Branch needed for Pain (scale 4-6). Apply 5g to affected areas BID PRN tirzepatide 2021-11 Yes 2.5mg inject 2.5 [facility] ([facility]) 0-20 mg under ity o f 2.5 mg/0.5 00:00: the skin [place] mL PnIj 00 weekly. [facility] Start [facility] 2.5mg SC qWeek x 4 Weeks, then increase to 5 mg SC qWeek tirzepatide 2021-11 Yes 5mg inject 5 [facility] ([facility]) 0-20 mg under ity o f 5 mg/0.5 mL 00:00: the skin [place] Pn[facility]j 00 weekly. [facility] Start [facility] 2.5mg SC qWeek x 4 Weeks, then increase to 5 mg SC qWeek Diclofenac 2021-11 Yes [id number] Apply 4g [facility] Sodium 0-20 to ity of (VOLTAREN) 00:00: affected [place] 1 % gel 00 area QID [facility] Lidocaine 5 2021-11 Yes [id number] Apply to [facility] % cream 0-20 area(s) 2 ity of 00:00: (two) [place] 00 times Medical daily as Branch needed for Pain (scale 4-6). Apply 5g to affected areas BID PRN tirzepatide 2021-11 Yes 2.5mg inject 2.5 [facility] ([facility]) 0-20 mg under ity o f 2.5 mg/0.5 00:00: the skin [place] mL PnIj 00 weekly. [facility] Start [facility] 2.5mg SC qWeek x 4 Weeks, then increase to 5 mg SC qWeek tirzepatide 2021-11 Yes 5mg inject 5 [facility] ([facility]) 0-20 mg under ity o f 5 mg/0.5 mL 00:00: the skin [place] Pn[facility]j 00 weekly. [facility] Start [facility] 2.5mg SC qWeek x 4 Weeks, then increase to 5 mg SC qWeek Diclofenac 2021-11 Yes [id number] Apply 4g [facility] Sodium 0-20 to ity of (VOLTAREN) 00:00: affected [place] [facility] 1 % gel 00 area QID [facility] Lidocaine 5 2021-11 Yes [id number] Apply to [facility] % cream 0-20 area(s) 2 ity of 00:00: (two) [place] 00 times Medical daily as Branch needed for Pain (scale 4-6). Apply 5g to affected areas BID PRN tirzepatide 2021-11 Yes 2.5mg inject 2.5 [facility] ([facility]) 0-20 mg under ity o f 2.5 mg/0.5 00:00: the skin [place] as mL PnIj 00 weekly. [facility] Start [facility] 2.5mg SC qWeek x 4 Weeks, then increase to 5 mg SC qWeek tirzepatide 2021-11 Yes 5mg inject 5 [facility] ([facility]) 0-20 mg under ity o f 5 mg/0.5 mL 00:00: the skin [place] Pn[facility]j 00 weekly. [facility] Start [facility] 2.5mg SC qWeek x 4 Weeks, then increase to 5 mg SC qWeek Diclofenac 2021-11 Yes [id number] Apply 4g [facility] Sodium 0-20 to ity of (VOLTAREN) 00:00: affected [place] 1 % gel 00 area QID [facility] Lidocaine 5 2021-11 Yes [id number] Apply to [facility] % cream 0-20 area(s) 2 ity of 00:00: (two) [place] 00 times Medical daily as Branch needed for Pain (scale 4-6). Apply 5g to affected areas BID PRN tirzepatide 2021-11 Yes 2.5mg inject 2.5 [facility] ([facility]) 0-20 mg under ity o f 2.5 mg/0.5 00:00: the skin [place] as mL PnIj 00 weekly. [facility] Start [facility] 2.5mg SC qWeek x 4 Weeks, then increase to 5 mg SC qWeek tirzepatide 2021-11 Yes 5mg inject 5 [facility] ([facility]) 0-20 mg under ity o f 5 mg/0.5 mL 00:00: the skin [place] Pn[facility]j 00 weekly. [facility] Start [facility] 2.5mg SC qWeek x 4 Weeks, then increase to 5 mg SC qWeek Diclofenac 2021-11 Yes [id number] Apply 4g [facility] Sodium 0-20 to ity of (VOLTAREN) 00:00: affected [place] [facility] 1 % gel 00 area QID [facility] Lidocaine 5 2021-11 Yes [id number] Apply to [facility] % cream 0-20 area(s) 2 ity of 00:00: (two) [place] 00 times Medical daily as Branch needed for Pain (scale 4-6). Apply 5g to affected areas BID PRN tirzepatide 2021-11 Yes 2.5mg inject 2.5 [facility] ([facility]) 0-20 mg under ity o f 2.5 mg/0.5 00:00: the skin [place] as mL PnIj 00 weekly. [facility] Start [facility] 2.5mg SC qWeek x 4 Weeks, then increase to 5 mg SC qWeek tirzepatide 2021-11 Yes 5mg inject 5 [facility] ([facility]) 0-20 mg under ity o f 5 mg/0.5 mL 00:00: the skin [place] Pn[facility]j 00 weekly. [facility] Start [facility] 2.5mg SC qWeek x 4 Weeks, then increase to 5 mg SC qWeek Diclofenac 2021-11 Yes [id number] Apply 4g [facility] Sodium 0-20 to ity of (VOLTAREN) 00:00: affected [place] as 1 % gel 00 area QID Medical Branch Lidocaine 5 2021-11 Yes [id number] Apply to [facility] % cream 0-20 area(s) 2 ity of 00:00: (two) [place] 00 times Medical daily as Branch needed for Pain (scale 4-6). Apply 5g to affected areas BID PRN tirzepatide 2021-11 Yes 2.5mg inject 2.5 [facility] (MOUNJARO) 0-20 mg under ity o f 2.5 mg/0.5 00:00: the skin [place] as mL PnIj 00 weekly. [facility] Start [facility] 2.5mg SC qWeek x 4 Weeks, then increase to 5 mg SC qWeek tirzepatide 2021-11 Yes 5mg inject 5 [facility] (MOUNJARO) 0-20 mg under ity o f 5 mg/0.5 mL 00:00: the skin [place] PnIj 00 weekly. [facility] Start [facility] 2.5mg SC qWeek x 4 Weeks, then increase to 5 mg SC qWeek Diclofenac 2021-11 Yes [id number] Apply 4g [facility] Sodium 0-20 to ity of (VOLTAREN) 00:00: affected [place] [facility] 1 % gel 00 area QID Medical Branch Lidocaine 5 2021-11 Yes [id number] Apply to [facility] % cream 0-20 area(s) 2 ity of 00:00: (two) [place] 00 times Medical daily as Branch needed for Pain (scale 4-6). Apply 5g to affected areas BID PRN tirzepatide 2021-11 Yes 2.5mg inject 2.5 [facility] ([facility]) 0-20 mg under ity o f 2.5 mg/0.5 00:00: the skin [place] as [facility] PnIj 00 weekly. [facility] 2.5mg SC qWeek x 4 Weeks, then increase to 5 mg [facility] qWeek tirzepatide 2021-11 Yes 5mg inject 5 [facility] ([facility]JARO) 0-20 mg under ity o f 5 mg/0.5 mL 00:00: the skin [place] PnIj 00 weekly. [facility] Start [facility] 2.5mg SC qWeek x 4 Weeks, then increase to 5 mg [facility] qWeek Diclofenac 2021-11 Yes [id number] Apply 4g [facility] Sodium 0-20 to ity of (VOLTAREN) 00:00: affected [place] [facility] 1 % gel 00 area QID [facility] Lidocaine 5 2021-11 Yes [id number] Apply to [facility] % cream 0-20 area(s) 2 [facility]y of 00:00: (two) [place] 00 times Medical daily as Branch needed for Pain (scale 4-6). Apply 5g to affected areas BID PRN tirzepatide 2021-11 Yes 2.5mg inject 2.5 [facility] ([facility]) 0-20 mg under ity o f 2.5 mg/0.5 00:00: the skin [place] [facility] mL PnIj 00 weekly. [facility] 2.5mg SC qWeek x 4 Weeks, then increase to 5 mg [facility] qWeek tirzepatide 2021-11 Yes 5mg inject 5 [facility] ([facility]OUNJARO) 0-20 mg under ity o f 5 mg/0.5 mL 00:00: the skin [place] PnIj 00 weekly. [facility] 2.5mg SC qWeek x 4 Weeks, then increase to 5 mg [facility] qWeek Diclofenac 2021-11 Yes [id number] Apply 4g [facility] Sodium 0-20 to [facility] of (VOLTAREN) 00:00: affected [place] [facility] 1 % gel 00 area QID [facility] Lidocaine 5 2021-11 Yes [id number] Apply to [facility] % cream 0-20 area(s) 2 [facility]y of 00:00: (two) [place] 00 times Medical daily as Branch needed for Pain (scale 4-6). Apply 5g to affected areas BID PRN tirzepatide 2021-11 Yes 2.5mg inject 2.5 [facility] ([facility]) 0-20 mg under ity o f 2.5 mg/0.5 00:00: the skin [place] [facility] mL PnIj 00 weekly. [facility] 2.5mg SC qWeek x 4 Weeks, then increase to 5 mg [facility] qWeek tirzepatide 2021-11 Yes 5mg inject 5 [facility] ([facility]JARO) 0-20 mg under ity o f 5 mg/0.5 mL 00:00: the skin [place] PnIj 00 weekly. [facility] 2.5mg SC qWeek x 4 Weeks, then increase to 5 mg [facility] qWeek Diclofenac 2021-11 Yes [id number] Apply 4g [facility] Sodium 0-20 to [facility]y of (VOLTAREN) 00:00: affected [place] [facility] 1 % gel 00 area QID [facility] Lidocaine 5 2021-11 Yes [id number] Apply to [facility] % cream 0-20 area(s) 2 [facility] of 00:00: (two) [place] 00 times Medical daily as Branch needed for Pain (scale 4-6). Apply 5g to affected areas BID PRN tirzepatide 2021-11 Yes 2.5mg inject 2.5 [facility] ([facility]) 0-20 mg under ity o f 2.5 mg/0.5 00:00: the skin [place] [facility] mL PnIj 00 weekly. [facility] 2.5mg SC qWeek x 4 Weeks, then increase to 5 mg [facility] qWeek tirzepatide 2021-11 Yes 5mg inject 5 [facility] ([facility]JARO) 0-20 mg under ity o f 5 mg/0.5 mL 00:00: the skin [place] PnIj 00 weekly. [facility] 2.5mg SC qWeek x 4 Weeks, then increase to 5 mg [facility] qWeek Diclofenac 2021-11 Yes [id number] Apply 4g [facility] Sodium 0-20 to [facility]y of (VOLTAREN) 00:00: affected [place] [facility] 1 % gel 00 area QID [facility] Lidocaine 5 2021-11 Yes [id number] Apply to [facility] % cream 0-20 area(s) 2 [facility]y of 00:00: (two) [place] 00 times Medical daily as Branch needed for Pain (scale 4-6). Apply 5g to affected areas BID PRN tirzepatide 2021-11 Yes 2.5mg inject 2.5 [facility] ([facility]) 0-20 mg under ity o f 2.5 mg/0.5 00:00: the skin [place] [facility] mL PnIj 00 weekly. [facility] 2.5mg SC qWeek x 4 Weeks, then increase to 5 mg [facility] qWeek tirzepatide 2021-11 Yes 5mg inject 5 [facility] ([facility]JAR[facility]) 0-20 mg under ity o f 5 mg/0.5 mL 00:00: the skin [place] PnIj 00 weekly. [facility] Start [facility] 2.5mg SC qWeek x 4 Weeks, then increase to 5 mg SC qWeek Diclofenac 2021-11 Yes [id number] Apply 4g [facility] Sodium 0-20 to [facility] of (VOLTAREN) 00:00: affected [place] [facility] 1 % gel 00 area QID [facility] Lidocaine 5 2021-11 Yes [id number] Apply to [facility] % cream 0-20 area(s) 2 ity of 00:00: (two) [place] 00 times Medical daily as Branch needed for Pain (scale 4-6). Apply 5g to affected areas BID PRN tirzepatide 2021-11 Yes 2.5mg inject 2.5 [facility] ([facility]) 0-20 mg under ity o f 2.5 mg/0.5 00:00: the skin [place] [facility] PnIj 00 weekly. [facility] 2.5mg SC qWeek x 4 Weeks, then increase to 5 mg [facility] qWeek tirzepatide 2021-11 Yes 5mg inject 5 [facility] ([facility]JARO) 0-20 mg under ity o f 5 mg/0.5 mL 00:00: the skin [place] PnIj 00 weekly. [facility] 2.5mg SC qWeek x 4 Weeks, then increase to 5 mg SC qWeek Diclofenac 2021-11 Yes [id number] Apply 4g [facility] Sodium 0-20 to [facility] of (VOLTAREN) 00:00: affected [place] [facility] 1 % gel 00 area QID [facility] Lidocaine 5 2021-11 Yes [id number] Apply to [facility] % cream 0-20 area(s) 2 ity of 00:00: (two) [place] 00 times Medical daily as Branch needed for Pain (scale 4-6). Apply 5g to affected areas BID PRN tirzepatide 2021-11 Yes 2.5mg inject 2.5 [facility] ([facility]) 0-20 mg under ity o f 2.5 mg/0.5 00:00: the skin [place] [facility] mL PnIj 00 weekly. [facility] 2.5mg SC qWeek x 4 Weeks, then increase to 5 mg [facility] qWeek tirzepatide 2021-11 Yes 5mg inject 5 [facility] ([facility]JAR[facility]) 0-20 mg under ity o f 5 mg/0.5 mL 00:00: the skin [place] PnIj 00 weekly. [facility] 2.5mg SC qWeek x 4 Weeks, then increase to 5 mg SC qWeek Diclofenac 2021-11 Yes [id number] Apply 4g [facility] Sodium 0-20 to [facility] of (VOLTAREN) 00:00: affected [place] [facility] 1 % gel 00 area QID [facility] Lidocaine 5 2021-11 Yes [id number] Apply to [facility] % cream 0-20 area(s) 2 ity of 00:00: (two) [place] 00 times Medical daily as Branch needed for Pain (scale 4-6). Apply 5g to affected areas BID PRN tirzepatide 2021-11 Yes 2.5mg inject 2.5 [facility] ([facility]) 0-20 mg under ity o f 2.5 mg/0.5 00:00: the skin [place] [facility] mL PnIj 00 weekly. [facility] 2.5mg SC qWeek x 4 Weeks, then increase to 5 mg [facility] qWeek tirzepatide 2021-11 Yes 5mg inject 5 [facility] ([facility]JAR[facility]) 0-20 mg under ity o f 5 mg/0.5 mL 00:00: the skin [place] PnIj 00 weekly. [facility] 2.5mg SC qWeek x 4 Weeks, then increase to 5 mg SC qWeek Diclofenac 2021-11 Yes [id number] Apply 4g [facility] Sodium 0-20 to [facility] of (VOLTAREN) 00:00: affected [place] [facility] 1 % gel 00 area QID [facility] Lidocaine 5 2021-11 Yes [id number] Apply to [facility] % cream 0-20 area(s) 2 [facility] of 00:00: (two) [place] 00 times Medical daily as Branch needed for Pain (scale 4-6). Apply 5g to affected areas BID PRN tirzepatide 2021-11 Yes 2.5mg inject 2.5 [facility] ([facility]) 0-20 mg under ity o f 2.5 mg/0.5 00:00: the skin [place] [facility] mL PnIj 00 weekly. [facility] 2.5mg SC qWeek x 4 Weeks, then increase to 5 mg [facility] qWeek tirzepatide 2021-11 Yes 5mg inject 5 [facility] ([facility]) 0-20 mg under ity o f 5 mg/0.5 mL 00:00: the skin [place] PnIj 00 weekly. [facility] 2.5mg SC qWeek x 4 Weeks, then increase to 5 mg SC qWeek Diclofenac 2021-11 Yes [id number] Apply 4g [facility] Sodium 0-20 to [facility]y of (VOLTAREN) 00:00: affected [place] [facility] 1 % gel 00 area QID [facility] Lidocaine 5 2021-11 Yes [id number] Apply to [facility] % cream 0-20 area(s) 2 ity of 00:00: (two) [place] 00 times Medical daily as Branch needed for Pain (scale 4-6). Apply 5g to affected areas BID PRN tirzepatide 2021-11 Yes 2.5mg inject 2.5 [facility] ([facility]) 0-20 mg under ity o f 2.5 mg/0.5 00:00: the skin [place] [facility] mL PnIj 00 weekly. [facility] 2.5mg SC qWeek x 4 Weeks, then increase to 5 mg [facility] qWeek tirzepatide 2021-11 Yes 5mg inject 5 [facility] ([facility]) 0-20 mg under ity o f 5 mg/0.5 mL 00:00: the skin [place] PnIj 00 weekly. [facility] 2.5mg SC qWeek x 4 Weeks, then increase to 5 mg SC qWeek Diclofenac 2021-11 Yes [id number] Apply 4g [facility] Sodium 0-20 to [facility] of (VOLTAREN) 00:00: affected [place] [facility] 1 % gel 00 area QID [facility] Lidocaine 5 2021-11 Yes [id number] Apply to [facility] % cream 0-20 area(s) 2 [facility]y of 00:00: (two) [place] 00 times Medical daily as Branch needed for Pain (scale 4-6). Apply 5g to affected areas BID PRN tirzepatide 2021-11 Yes 2.5mg inject 2.5 [facility] ([facility]) 0-20 mg under ity o f 2.5 mg/0.5 00:00: the skin [place] [facility] mL PnIj 00 weekly. [facility] 2.5mg SC qWeek x 4 Weeks, then increase to 5 mg [facility] qWeek tirzepatide 2021-11 Yes 5mg inject 5 [facility] ([facility]) 0-20 mg under ity o f 5 mg/0.5 mL 00:00: the skin [place] PnIj 00 weekly. [facility] Start [facility] 2.5mg SC qWeek x 4 Weeks, then increase to 5 mg SC qWeek Diclofenac 2021-11 Yes [id number] Apply 4g [facility] Sodium 0-20 to [facility]y of (VOLTAREN) 00:00: affected [place] [facility] 1 % gel 00 area QID [facility] Lidocaine 5 2021-11 Yes [id number] Apply to [facility] % cream 0-20 area(s) 2 ity of 00:00: (two) [place] 00 times Medical daily as Branch needed for Pain (scale 4-6). Apply 5g to affected areas BID PRN tirzepatide 2021-11 Yes 2.5mg inject 2.5 [facility] ([facility]) 0-20 mg under ity o f 2.5 mg/0.5 00:00: the skin [place] [facility] PnIj 00 weekly. [facility] Start [facility] 2.5mg SC qWeek x 4 Weeks, then increase to 5 mg [facility] qWeek tirzepatide 2021-11 Yes 5mg inject 5 [facility] ([facility]) 0-20 mg under ity o f 5 mg/0.5 mL 00:00: the skin [place] PnIj 00 weekly. [facility] Start [facility] 2.5mg SC qWeek x 4 Weeks, then increase to 5 mg SC qWeek Diclofenac 2021-11 Yes [id number] Apply 4g [facility] Sodium 0-20 to ity of (VOLTAREN) 00:00: affected [place] [facility] 1 % gel 00 area QID [facility] Lidocaine 5 2021-11 Yes [id number] Apply to [facility] % cream 0-20 area(s) 2 ity of 00:00: (two) [place] 00 times Medical daily as Branch needed for Pain (scale 4-6). Apply 5g to affected areas BID PRN tirzepatide 2021-11 Yes 2.5mg inject 2.5 [facility] ([facility]) 0-20 mg under ity o f 2.5 mg/0.5 00:00: the skin [place] [facility] mL PnIj 00 weekly. [facility] Start [facility] 2.5mg SC qWeek x 4 Weeks, then increase to 5 mg [facility] qWeek tirzepatide 2021-11 Yes 5mg inject 5 [facility] ([facility]) 0-20 mg under ity o f 5 mg/0.5 mL 00:00: the skin [place] PnIj 00 weekly. [facility] Start [facility] 2.5mg SC qWeek x 4 Weeks, then increase to 5 mg SC qWeek Diclofenac 2021-11 Yes [id number] Apply 4g [facility] Sodium 0-20 to [facility]y of (VOLTAREN) 00:00: affected [place] [facility] 1 % gel 00 area QID [facility] Lidocaine 5 2021-11 Yes [id number] Apply to [facility] % cream 0-20 area(s) 2 ity of 00:00: (two) [place] 00 times Medical daily as Branch needed for Pain (scale 4-6). Apply 5g to affected areas BID PRN tirzepatide 2021-11 Yes 2.5mg inject 2.5 [facility] ([facility]) 0-20 mg under ity o f 2.5 mg/0.5 00:00: the skin [place] [facility] mL PnIj 00 weekly. [facility] Start [facility] 2.5mg SC qWeek x 4 Weeks, then increase to 5 mg [facility] qWeek tirzepatide 2021-11 Yes 5mg inject 5 [facility] ([facility]) 0-20 mg under ity o f 5 mg/0.5 mL 00:00: the skin [place] PnIj 00 weekly. [facility] Start [facility] 2.5mg SC qWeek x 4 Weeks, then increase to 5 mg SC qWeek Diclofenac 2021-11 Yes [id number] Apply 4g [facility] Sodium 0-20 to ity of (VOLTAREN) 00:00: affected [place] [facility] 1 % gel 00 area QID [facility] Lidocaine 5 2021-11 Yes [id number] Apply to [facility] % cream 0-20 area(s) 2 ity of 00:00: (two) [place] 00 times Medical daily as Branch needed for Pain (scale 4-6). Apply 5g to affected areas BID PRN tirzepatide 2021-11 Yes 2.5mg inject 2.5 [facility] ([facility]) 0-20 mg under ity o f 2.5 mg/0.5 00:00: the skin [place] [facility] mL PnIj 00 weekly. [facility] Start [facility] 2.5mg SC qWeek x 4 Weeks, then increase to 5 mg [facility] qWeek tirzepatide 2021-11 Yes 5mg inject 5 [facility] ([facility]) 0-20 mg under ity o f 5 mg/0.5 mL 00:00: the skin [place] PnIj 00 weekly. [facility] Start [facility] 2.5mg SC qWeek x 4 Weeks, then increase to 5 mg SC qWeek Diclofenac 2021-11 Yes [id number] Apply 4g [facility] Sodium 0-20 to ity of (VOLTAREN) 00:00: affected [place] [facility] 1 % gel 00 area QID [facility] Lidocaine 2021-11 Yes [id number] Apply to [facility] % cream 0-20 area(s) 2 ity of 00:00: (two) [place] 00 times Medical daily as Branch needed for Pain (scale 4-6). Apply 5g to affected areas BID PRN tirzepatide 2021-11 Yes 5mg inject 5 [facility] ([facility]) 0-20 mg under ity o f 5 mg/0.5 mL 00:00: the skin [place] PnIj 00 weekly. [facility] Start [facility] 2.5mg SC qWeek x 4 Weeks, then increase to 5 mg SC qWeek Diclofenac 2021-11 Yes [id number] Apply 4g [facility] Sodium 0-20 to ity of (VOLTAREN) 00:00: affected [place] [facility] 1 % gel 00 area QID [facility] Lidocaine 5 2021-11 Yes [id number] Apply to [facility] % cream 0-20 area(s) 2 ity of 00:00: (two) [place] 00 times Medical daily as Branch needed for Pain (scale 4-6). Apply 5g to affected areas BID PRN tirzepatide 2021-11 Yes 5mg inject 5 [facility] ([facility]) 0-20 mg under ity o f 5 mg/0.5 mL 00:00: the skin [place] PnIj 00 weekly. [facility] Start [facility] 2.5mg SC qWeek x 4 Weeks, then increase to 5 mg SC qWeek Diclofenac 2021-11 Yes [id number] Apply 4g [facility] Sodium 0-20 to ity of (VOLTAREN) 00:00: affected [place] [facility] 1 % gel 00 area QID [facility] Lidocaine 5 2021-11 Yes [id number] Apply to [facility] % cream 0-20 area(s) 2 ity of 00:00: (two) [place] 00 times Medical daily as Branch needed for Pain (scale 4-6). Apply 5g to affected areas BID PRN tirzepatide 2021-11 Yes 5mg inject 5 [facility] ([facility]) 0-20 mg under ity o f 5 mg/0.5 mL 00:00: the skin [place] PnIj 00 weekly. [facility] Start [facility] 2.5mg SC qWeek x 4 Weeks, then increase to 5 mg SC qWeek Diclofenac 2021-11 Yes [id number] Apply 4g [facility] Sodium 0-20 to ity of (VOLTAREN) 00:00: affected [place] [facility] 1 % gel 00 area QID [facility] Lidocaine 2021-11 Yes [id number] Apply to [facility] % cream 0-20 area(s) 2 ity of 00:00: (two) [place] 00 times Medical daily as Branch needed for Pain (scale 4-6). Apply 5g to affected areas BID PRN tirzepatide 2021-11 Yes 5mg inject 5 [facility] ([facility]) 0-20 mg under ity o f 5 mg/0.5 mL 00:00: the skin [place] PnIj 00 weekly. [facility] Start [facility] 2.5mg SC qWeek x 4 Weeks, then increase to 5 mg SC qWeek Diclofenac 2021-11 Yes [id number] Apply 4g [facility] Sodium 0-20 to ity of (VOLTAREN) 00:00: affected [place] [facility] 1 % gel 00 area QID [facility] Lidocaine 5 2021-11 Yes [id number] Apply to [facility] % cream 0-20 area(s) 2 ity of 00:00: (two) [place] 00 times Medical daily as Branch needed for Pain (scale 4-6). Apply 5g to affected areas BID PRN tirzepatide 2021-11 Yes 5mg inject 5 [facility] ([facility]) 0-20 mg under ity o f 5 mg/0.5 mL 00:00: the skin [place] PnIj 00 weekly. [facility] Start [facility] 2.5mg SC qWeek x 4 Weeks, then increase to 5 mg SC qWeek Diclofenac 2021-11 Yes [id number] Apply 4g [facility] Sodium 0-20 to ity of (VOLTAREN) 00:00: affected [place] [facility] 1 % gel 00 area QID [facility] Lidocaine 2021-11 Yes [id number] Apply to [facility] % cream 0-20 area(s) 2 ity of 00:00: (two) [place] 00 times Medical daily as Branch needed for Pain (scale 4-6). Apply 5g to affected areas BID PRN tirzepatide 2021-11 Yes 5mg inject 5 [facility] ([facility]) 0-20 mg under ity o f 5 mg/0.5 mL 00:00: the skin [place] PnIj 00 weekly. [facility] Start [facility] 2.5mg SC qWeek x 4 Weeks, then increase to 5 mg SC qWeek Diclofenac 2021-11 Yes [id number] Apply 4g [facility] Sodium 0-20 to ity of (VOLTAREN) 00:00: affected [place] [facility] 1 % gel 00 area QID [facility] Lidocaine 2021-11 Yes [id number] Apply to [facility] % cream 0-20 area(s) 2 ity of 00:00: (two) [place] 00 times Medical daily as Branch needed for Pain (scale 4-6). Apply 5g to affected areas BID PRN tirzepatide 2021-11 Yes 5mg inject 5 [facility] ([facility]) 0-20 mg under ity o f 5 mg/0.5 mL 00:00: the skin [place] Pn[facility]j 00 weekly. [facility] Start [facility] 2.5mg SC qWeek x 4 Weeks, then increase to 5 mg SC qWeek Diclofenac 2021-11 Yes [id number] Apply 4g [facility] Sodium 0-20 to ity of (VOLTAREN) 00:00: affected [place] [facility] 1 % gel 00 area QID [facility] Lidocaine 2021-11 Yes [id number] Apply to [facility] % cream 0-20 area(s) 2 ity of 00:00: (two) [place] 00 times Medical daily as Branch needed for Pain (scale 4-6). Apply 5g to affected areas BID PRN tirzepatide 2021-11 Yes 5mg inject 5 [facility] ([facility]) 0-20 mg under ity o f 5 mg/0.5 mL 00:00: the skin [place] Pn[facility]j 00 weekly. [facility] Start [facility] 2.5mg SC qWeek x 4 Weeks, then increase to 5 mg SC qWeek Diclofenac 2021-11 Yes [id number] Apply 4g [facility] Sodium 0-20 to [facility]y of (VOLTAREN) 00:00: affected [place] [facility] 1 % gel 00 area QID [facility] Lidocaine 5 2021-11 Yes [id number] Apply to [facility] % cream 0-20 area(s) 2 ity of 00:00: (two) [place] 00 times Medical daily as Branch needed for Pain (scale 4-6). Apply 5g to affected areas BID PRN tirzepatide 2021-11 Yes 5mg inject 5 [facility] ([facility]) 0-20 mg under ity o f 5 mg/0.5 mL 00:00: the skin [place] Pn[facility]j 00 weekly. [facility] Start [facility] 2.5mg SC qWeek x 4 Weeks, then increase to 5 mg SC qWeek Diclofenac 2021-11 Yes [id number] Apply 4g [facility] Sodium 0-20 to ity of (VOLTAREN) 00:00: affected [place] [facility] 1 % gel 00 area QID [facility] Lidocaine 5 2021-11 Yes [id number] Apply to [facility] % cream 0-20 area(s) 2 ity of 00:00: (two) [place] 00 times Medical daily as Branch needed for Pain (scale 4-6). Apply 5g to affected areas BID PRN tirzepatide 2021-11 Yes 5mg inject 5 [facility] ([facility]) 0-20 mg under ity o f 5 mg/0.5 mL 00:00: the skin [place] Pn[facility]j 00 weekly. [facility] Start [facility] 2.5mg SC qWeek x 4 Weeks, then increase to 5 mg SC qWeek Diclofenac 2021-11 Yes [id number] Apply 4g [facility] Sodium 0-20 to ity of (VOLTAREN) 00:00: affected [place] [facility] 1 % gel 00 area QID [facility] Lidocaine 5 2-1 Yes [id number] Apply to [facility] % cream 0-20 area(s) 2 ity of 00:00: (two) [place] 00 times Medical daily as Branch needed for Pain (scale 4-6). Apply 5g to affected areas BID PRN tirzepatide 2021-11 Yes 5mg inject 5 [facility] ([facility]) 0-20 mg under ity o f 5 mg/0.5 mL 00:00: the skin [place] Pn[facility]j 00 weekly. [facility] Start [facility] 2.5mg SC qWeek x 4 Weeks, then increase to 5 mg SC qWeek Diclofenac 2021-11 Yes [id number] Apply 4g [facility] Sodium 0-20 to ity of (VOLTAREN) 00:00: affected [place] [facility] 1 % gel 00 area QID [facility] Lidocaine 2021-11 Yes [id number] Apply to [facility] % cream 0-20 area(s) 2 ity of 00:00: (two) [place] 00 times Medical daily as Branch needed for Pain (scale 4-6). Apply 5g to affected areas BID PRN tirzepatide 2021-11 Yes 5mg inject 5 [facility] ([facility]) 0-20 mg under ity o f 5 mg/0.5 mL 00:00: the skin [place] Pn[facility]j 00 weekly. [facility] 2.5mg SC qWeek x 4 Weeks, then increase to 5 mg SC qWeek Diclofenac 2021-11 Yes [id number] Apply 4g [facility] Sodium 0-20 to ity of (VOLTAREN) 00:00: affected [place] [facility] 1 % gel 00 area QID [facility] Lidocaine 2021-11 Yes [id number] Apply to [facility] % cream 0-20 area(s) 2 ity of 00:00: (two) [place] 00 times Medical daily as Branch needed for Pain (scale 4-6). Apply 5g to affected areas BID PRN tirzepatide 2021-11 Yes 5mg inject 5 [facility] ([facility]) 0-20 mg under ity o f 5 mg/0.5 mL 00:00: the skin [place] Pn[facility]j 00 weekly. [facility] Start [facility] 2.5mg SC qWeek x 4 Weeks, then increase to 5 mg SC qWeek Diclofenac 2021-11 Yes [id number] Apply 4g [facility] Sodium 0-20 to ity of (VOLTAREN) 00:00: affected [place] [facility] 1 % gel 00 area QID [facility] Lidocaine 5 2021-11 Yes [id number] Apply to [facility] % cream 0-20 area(s) 2 ity of 00:00: (two) [place] 00 times Medical daily as Branch needed for Pain (scale 4-6). Apply 5g to affected areas BID PRN tirzepatide 2021-11 Yes 5mg inject 5 [facility] ([facility]) 0-20 mg under ity o f 5 mg/0.5 mL 00:00: the skin [place] Pn[facility]j 00 weekly. [facility] Start [facility] 2.5mg SC qWeek x 4 Weeks, then increase to 5 mg SC qWeek Diclofenac 2021-11 Yes [id number] Apply 4g [facility] Sodium 0-20 to ity of (VOLTAREN) 00:00: affected [place] [facility] 1 % gel 00 area QID [facility] Lidocaine 2021-11 Yes [id number] Apply to [facility] % cream 0-20 area(s) 2 ity of 00:00: (two) [place] 00 times Medical daily as Branch needed for Pain (scale 4-6). Apply 5g to affected areas BID PRN tirzepatide 2021-11 Yes 5mg inject 5 [facility] ([facility]) 0-20 mg under ity o f 5 mg/0.5 mL 00:00: the skin [place] Pn[facility]j 00 weekly. [facility] Start [facility] 2.5mg SC qWeek x 4 Weeks, then increase to 5 mg SC qWeek Diclofenac 2021-11 Yes [id number] Apply 4g [facility] Sodium 0-20 to ity of (VOLTAREN) 00:00: affected [place] [facility] 1 % gel 00 area QID [facility] Lidocaine 5 2021-11 Yes [id number] Apply to [facility] % cream 0-20 area(s) 2 ity of 00:00: (two) [place] 00 times Medical daily as Branch needed for Pain (scale 4-6). Apply 5g to affected areas BID PRN tirzepatide 2021-11 Yes 5mg inject 5 [facility] ([facility]) 0-20 mg under ity o f 5 mg/0.5 mL 00:00: the skin [place] Pn[facility]j 00 weekly. [facility] Start [facility] 2.5mg SC qWeek x 4 Weeks, then increase to 5 mg SC qWeek Diclofenac 2021-11 Yes [id number] Apply 4g [facility] Sodium 0-20 to ity of (VOLTAREN) 00:00: affected [place] [facility] 1 % gel 00 area QID [facility] Lidocaine 5 2021-11 Yes [id number] Apply to [facility] % cream 0-20 area(s) 2 ity of 00:00: (two) [place] 00 times Medical daily as Branch needed for Pain (scale 4-6). Apply 5g to affected areas BID PRN tirzepatide 2021-11 Yes 5mg inject 5 [facility] ([facility]) 0-20 mg under ity o f 5 mg/0.5 mL 00:00: the skin [place] Pn[facility]j 00 weekly. [facility] Start [facility] 2.5mg SC qWeek x 4 Weeks, then increase to 5 mg SC qWeek Diclofenac 2021-11 Yes [id number] Apply 4g [facility] Sodium 0-20 to ity of (VOLTAREN) 00:00: affected [place] [facility] 1 % gel 00 area QID [facility] Lidocaine 2021-11 Yes [id number] Apply to [facility] % cream 0-20 area(s) 2 ity of 00:00: (two) [place] 00 times Medical daily as Branch needed for Pain (scale 4-6). Apply 5g to affected areas BID PRN tirzepatide 2021-11 Yes 5mg inject 5 [facility] ([facility]) 0-20 mg under ity o f 5 mg/0.5 mL 00:00: the skin [place] Pn[facility]j 00 weekly. [facility] Start [facility] 2.5mg SC qWeek x 4 Weeks, then increase to 5 mg SC qWeek Diclofenac 2021-11 Yes [id number] Apply 4g [facility] Sodium 0-20 to ity of (VOLTAREN) 00:00: affected [place] [facility] 1 % gel 00 area QID [facility] Lidocaine 5 2021-11 Yes [id number] Apply to [facility] % cream 0-20 area(s) 2 ity of 00:00: (two) [place] 00 times Medical daily as Branch needed for Pain (scale 4-6). Apply 5g to affected areas BID PRN tirzepatide 2021-11 Yes 5mg inject 5 [facility] ([facility]) 0-20 mg under ity o f 5 mg/0.5 mL 00:00: the skin [place] Pn[facility]j 00 weekly. [facility] 2.5mg SC qWeek x 4 Weeks, then increase to 5 mg SC qWeek Diclofenac 2021-11 Yes [id number] Apply 4g [facility] Sodium 0-20 to ity of (VOLTAREN) 00:00: affected [place] [facility] 1 % gel 00 area QID [facility] Lidocaine 2021-11 Yes [id number] Apply to [facility] % cream 0-20 area(s) 2 ity of 00:00: (two) [place] 00 times Medical daily as Branch needed for Pain (scale 4-6). Apply 5g to affected areas BID PRN tirzepatide 2021-11 Yes 5mg inject 5 [facility] ([facility]) 0-20 mg under ity o f 5 mg/0.5 mL 00:00: the skin [place] Pn[facility]j 00 weekly. [facility] 2.5mg SC qWeek x 4 Weeks, then increase to 5 mg SC qWeek Diclofenac 2021-11 Yes [id number] Apply 4g [facility] Sodium 0-20 to ity of (VOLTAREN) 00:00: affected [place] [facility] 1 % gel 00 area QID [facility] Lidocaine 2021-11 Yes [id number] Apply to [facility] % cream 0-20 area(s) 2 ity of 00:00: (two) [place] 00 times Medical daily as Branch needed for Pain (scale 4-6). Apply 5g to affected areas BID PRN tirzepatide 2021-11 Yes 5mg inject 5 [facility] ([facility]) 0-20 mg under ity o f 5 mg/0.5 mL 00:00: the skin [place] Pn[facility]j 00 weekly. [facility] 2.5mg SC qWeek x 4 Weeks, then increase to 5 mg SC qWeek Diclofenac 2021-11 Yes [id number] Apply 4g [facility] Sodium 0-20 to ity of (VOLTAREN) 00:00: affected [place] [facility] 1 % gel 00 area QID [facility] Lidocaine 5 2021-11 Yes [id number] Apply to [facility] % cream 0-20 area(s) 2 ity of 00:00: (two) [place] 00 times Medical daily as Branch needed for Pain (scale 4-6). Apply 5g to affected areas BID PRN tirzepatide 2021-11 Yes 5mg inject 5 Un god[facility] (MOUNJARO) 0-20 mg under ity o f 5 mg/0.5 mL 00:00: the skin [place] PnIj 00 weekly. Medical Start Branch 2.5mg SC qWeek x 4 Weeks, then increase to 5 mg [facility] qWeek Diclofenac 2021-11 Yes [id number] Apply 4g [facility] Sodium 0-20 to ity of (VOLTAREN) 00:00: affected [place] as 1 % gel 00 area QID Medical Branch Lidocaine 5 2021-11 Yes [id number] Apply to [facility] % cream 0-20 area(s) 2 ity of 00:00: (two) [place] 00 times Medical daily as Branch needed for Pain (scale 4-6). Apply 5g to affected areas BID PRN tirzepatide 2021-11 Yes 5mg inject 5 Un [facility] (MOUNJARO) 0-20 mg under ity o f 5 mg/0.5 mL 00:00: the skin [place] PnIj 00 weekly. Medical Start Branch 2.5mg SC qWeek x 4 Weeks, then increase to 5 mg SC qWeek Diclofenac 2021-11 Yes [id number] Apply 4g [facility] Sodium 0-20 to [facility]y of (VOLTAREN) 00:00: affected [place] [facility] 1 % gel 00 area QID [facility] Lidocaine 2021-11 Yes [id number] Apply to [facility] % cream 0-20 area(s) 2 ity of 00:00: (two) [place] 00 times Medical daily as Branch needed for Pain (scale 4-6). Apply 5g to affected areas BID PRN tirzepatide 2021-11 Yes 5mg inject 5 [facility] (MOUNJARO) 0-20 mg under ity o f 5 mg/0.5 mL 00:00: the skin [place] Pn[facility]j 00 weekly. [facility] Start [facility] 2.5mg SC qWeek x 4 Weeks, then increase to 5 mg SC qWeek Diclofenac 2021-11 Yes [id number] Apply 4g [facility] Sodium 0-20 to ity of (VOLTAREN) 00:00: affected [place] [facility] % gel 00 area QID [facility] Lidocaine 2021-11 Yes [id number] Apply to [facility] % cream 0-20 area(s) 2 ity of 00:00: (two) [place] 00 times Medical daily as Branch needed for Pain (scale 4-6). Apply 5g to affected areas BID PRN tirzepatide 2021-11 Yes 5mg inject 5 [facility] (MOUNJARO) 0-20 mg under ity o f 5 mg/0.5 mL 00:00: the skin [place] Pn[facility] 00 weekly. [facility] Start [facility] 2.5mg SC qWeek x 4 Weeks, then increase to 5 mg SC qWeek Diclofenac 2021-11 Yes [id number] Apply 4g [facility] Sodium 0-20 to [facility]y of (VOLTAREN) 00:00: affected [place] [facility] 1 % gel 00 area QID [facility] Lidocaine 5 2021-11 Yes [id number] Apply to [facility] % cream 0-20 area(s) 2 ity of 00:00: (two) [place] 00 times Medical daily as Branch needed for Pain (scale 4-6). Apply 5g to affected areas BID PRN tirzepatide 2021-11 Yes 5mg inject 5 [facility] (MOUNJARO) 0-20 mg under ity o f 5 mg/0.5 mL 00:00: the skin [place] Pn[facility] 00 weekly. [facility] Start [facility] 2.5mg SC qWeek x 4 Weeks, then increase to 5 mg SC qWeek Diclofenac 2021-11 Yes [id number] Apply 4g [facility] Sodium 0-20 to [facility]y of (VOLTAREN) 00:00: affected [place] [facility] 1 % gel 00 area QID [facility] Lidocaine 2021-11 Yes [id number] Apply to [facility] % cream 0-20 area(s) 2 ity of 00:00: (two) [place] 00 times Medical daily as Branch needed for Pain (scale 4-6). Apply 5g to affected areas BID PRN tirzepatide 2021-11 Yes 5mg inject 5 [facility] (MOUNJARO) 0-20 mg under ity o f 5 mg/0.5 mL 00:00: the skin [place] Pn[facility] 00 weekly. [facility] Start [facility] 2.5mg SC qWeek x 4 Weeks, then increase to 5 mg SC qWeek Diclofenac 2021-11 Yes [id number] Apply 4g [facility] Sodium 0-20 to [facility]y of (VOLTAREN) 00:00: affected [place] [facility] % gel 00 area QID [facility] Lidocaine 2021-11 Yes [id number] Apply to [facility] % cream 0-20 area(s) 2 ity of 00:00: (two) [place] 00 times Medical daily as Branch needed for Pain (scale 4-6). Apply 5g to affected areas BID PRN tirzepatide 2021-11 Yes 5mg inject 5 [facility] (MOUNJARO) 0-20 mg under ity o f 5 mg/0.5 mL 00:00: the skin [place] Pn[facility] 00 weekly. [facility] Start [facility] 2.5mg SC qWeek x 4 Weeks, then increase to 5 mg SC qWeek Diclofenac 2021-11 Yes [id number] Apply 4g [facility] Sodium 0-20 to [facility] of (VOLTAREN) 00:00: affected [place] [facility] % gel 00 area QID [facility] Lidocaine 2021-11 Yes [id number] Apply to [facility] % cream 0-20 area(s) 2 ity of 00:00: (two) [place] 00 times Medical daily as Branch needed for Pain (scale 4-6). Apply 5g to affected areas BID PRN tirzepatide 2021-11 Yes 5mg inject 5 [facility] (MOUNJARO) 0-20 mg under ity o f 5 mg/0.5 mL 00:00: the skin [place] Pn[facility] 00 weekly. [facility] Start [facility] 2.5mg SC qWeek x 4 Weeks, then increase to 5 mg SC qWeek Diclofenac 2021-11 Yes [id number] Apply 4g [facility] Sodium 0-20 to [facility]y of (VOLTAREN) 00:00: affected [place] [facility] 1 % gel 00 area QID [facility] Lidocaine 2021-11 Yes [id number] Apply to [facility] % cream 0-20 area(s) 2 ity of 00:00: (two) [place] 00 times Medical daily as Branch needed for Pain (scale 4-6). Apply 5g to affected areas BID PRN tirzepatide 2021-11 Yes 5mg inject 5 [facility] (MOUNJARO) 0-20 mg under ity o f 5 mg/0.5 mL 00:00: the skin [place] Pn[facility] 00 weekly. [facility] Start [facility] 2.5mg SC qWeek x 4 Weeks, then increase to 5 mg SC qWeek Diclofenac 2021-11 Yes [id number] Apply 4g [facility] Sodium 0-20 to [facility]y of (VOLTAREN) 00:00: affected [place] [facility] % gel 00 area QID [facility] Lidocaine 5 2021-11 Yes [id number] Apply to [facility] % cream 0-20 area(s) 2 ity of 00:00: (two) [place] 00 times Medical daily as Branch needed for Pain (scale 4-6). Apply 5g to affected areas BID PRN tirzepatide 2021-11 Yes 5mg inject 5 [facility] (MOUNJARO) 0-20 mg under ity o f 5 mg/0.5 mL 00:00: the skin [place] Pn[facility] 00 weekly. [facility] Start [facility] 2.5mg SC qWeek x 4 Weeks, then increase to 5 mg SC qWeek Diclofenac 2021-11 Yes [id number] Apply 4g [facility] Sodium 0-20 to [facility]y of (VOLTAREN) 00:00: affected [place] [facility] % gel 00 area QID [facility] Lidocaine 2021-11 Yes [id number] Apply to [facility] % cream 0-20 area(s) 2 ity of 00:00: (two) [place] 00 times Medical daily as Branch needed for Pain (scale 4-6). Apply 5g to affected areas BID PRN tirzepatide 2021-11 Yes 5mg inject 5 [facility] (MOUNJARO) 0-20 mg under ity o f 5 mg/0.5 mL 00:00: the skin [place] [facility] 00 weekly. [facility] Start [facility] 2.5mg SC qWeek x 4 Weeks, then increase to 5 mg SC qWeek Diclofenac 2021-11 Yes [id number] Apply 4g [facility] Sodium 0-20 to [facility]y of (VOLTAREN) 00:00: affected [place] [facility] % gel 00 area QID [facility] Lidocaine 5 2021-11 Yes [id number] Apply to [facility] % cream 0-20 area(s) 2 ity of 00:00: (two) [place] 00 times Medical daily as Branch needed for Pain (scale 4-6). Apply 5g to affected areas BID PRN tirzepatide 2021-11 Yes 5mg inject 5 [facility] (MOUNJARO) 0-20 mg under ity o f 5 mg/0.5 mL 00:00: the skin [place] [facility] 00 weekly. [facility] Start [facility] 2.5mg SC qWeek x 4 Weeks, then increase to 5 mg SC qWeek Diclofenac 2021-11 Yes [id number] Apply 4g [facility] Sodium 0-20 to [facility]y of (VOLTAREN) 00:00: affected [place] [facility] % gel 00 area QID [facility] Lidocaine 5 2021-11 Yes [id number] Apply to [facility] % cream 0-20 area(s) 2 ity of 00:00: (two) [place] 00 times Medical daily as Branch needed for Pain (scale 4-6). Apply 5g to affected areas BID PRN tirzepatide 2021-11 Yes 5mg inject 5 [facility] (MOUNJARO) 0-20 mg under ity o f 5 mg/0.5 mL 00:00: the skin [place] [facility] 00 weekly. [facility] Start [facility] 2.5mg SC qWeek x 4 Weeks, then increase to 5 mg SC qWeek Diclofenac 2021-11 Yes [id number] Apply 4g [facility] Sodium 0-20 to [facility]y of (VOLTAREN) 00:00: affected [place] [facility] % gel 00 area QID [facility] Lidocaine 5 2021-11 Yes [id number] Apply to [facility] % cream 0-20 area(s) 2 ity of 00:00: (two) [place] 00 times Medical daily as Branch needed for Pain (scale 4-6). Apply 5g to affected areas BID PRN tirzepatide 2021-11 Yes 5mg inject 5 [facility] (MOUNJARO) 0-20 mg under ity o f 5 mg/0.5 mL 00:00: the skin [place] [facility] 00 weekly. [facility] 2.5mg SC qWeek x 4 Weeks, then increase to 5 mg SC qWeek Diclofenac 2021-11 Yes [id number] Apply 4g [facility] Sodium 0-20 to [facility]y of (VOLTAREN) 00:00: affected [place] [facility] 1 % gel 00 area QID [facility] Lidocaine 5 2021-11 Yes [id number] Apply to [facility] % cream 0-20 area(s) 2 ity of 00:00: (two) [place] 00 times Medical daily as Branch needed for Pain (scale 4-6). Apply 5g to affected areas BID PRN tirzepatide 2021-11 Yes 5mg inject 5 [facility] (MOUNJARO) 0-20 mg under ity o f 5 mg/0.5 mL 00:00: the skin [place] [facility] 00 weekly. [facility] 2.5mg SC qWeek x 4 Weeks, then increase to 5 mg SC qWeek Diclofenac 2021-11 Yes [id number] Apply 4g [facility] Sodium 0-20 to ity of (VOLTAREN) 00:00: affected [place] [facility] % gel 00 area QID [facility] Lidocaine 2021-11 Yes [id number] Apply to [facility] % cream 0-20 area(s) 2 ity of 00:00: (two) [place] 00 times Medical daily as Branch needed for Pain (scale 4-6). Apply 5g to affected areas BID PRN tirzepatide 2021-11 Yes 5mg inject 5 [facility] (MOUNJARO) 0-20 mg under ity o f 5 mg/0.5 mL 00:00: the skin [place] [facility] 00 weekly. [facility] Start [facility] 2.5mg SC qWeek x 4 Weeks, then increase to 5 mg SC qWeek Diclofenac 2021-11 Yes [id number] Apply 4g [facility] Sodium 0-20 to ity of (VOLTAREN) 00:00: affected [place] [facility] % gel 00 area QID [facility] Lidocaine 2021-11 Yes [id number] Apply to [facility] % cream 0-20 area(s) 2 ity of 00:00: (two) [place] 00 times Medical daily as Branch needed for Pain (scale 4-6). Apply 5g to affected areas BID PRN tirzepatide 2021-11 Yes 5mg inject 5 [facility] (MOUNJARO) 0-20 mg under ity o f 5 mg/0.5 mL 00:00: the skin [place] [facility] 00 weekly. [facility] Start [facility] 2.5mg SC qWeek x 4 Weeks, then increase to 5 mg SC qWeek Diclofenac 2021-11 Yes [id number] Apply 4g [facility] Sodium 0-20 to ity of (VOLTAREN) 00:00: affected [place] [facility] % gel 00 area QID [facility] Lidocaine 2021-11 Yes [id number] Apply to [facility] % cream 0-20 area(s) 2 ity of 00:00: (two) [place] 00 times Medical daily as Branch needed for Pain (scale 4-6). Apply 5g to affected areas BID PRN tirzepatide 2021-11 Yes 5mg inject 5 [facility] (MOUNJARO) 0-20 mg under ity o f 5 mg/0.5 mL 00:00: the skin [place] [facility] 00 weekly. [facility] Start [facility] 2.5mg SC qWeek x 4 Weeks, then increase to 5 mg SC qWeek Diclofenac 2021-11 Yes [id number] Apply 4g [facility] Sodium 0-20 to ity of (VOLTAREN) 00:00: affected [place] [facility] 1 % gel 00 area QID [facility] Lidocaine 2021-11 Yes [id number] Apply to [facility] % cream 0-20 area(s) 2 ity of 00:00: (two) [place] 00 times Medical daily as Branch needed for Pain (scale 4-6). Apply 5g to affected areas BID PRN tirzepatide 2021-11 Yes 5mg inject 5 [facility] (MOUNJARO) 0-20 mg under ity o f 5 mg/0.5 mL 00:00: the skin [place] Pn[facility] 00 weekly. [facility] Start [facility] 2.5mg SC qWeek x 4 Weeks, then increase to 5 mg SC qWeek Diclofenac 2021-11 Yes [id number] Apply 4g [facility] Sodium 0-20 to ity of (VOLTAREN) 00:00: affected [place] [facility] % gel 00 area QID [facility] Lidocaine 2021-11 Yes [id number] Apply to [facility] % cream 0-20 area(s) 2 ity of 00:00: (two) [place] 00 times Medical daily as Branch needed for Pain (scale 4-6). Apply 5g to affected areas BID PRN tirzepatide 2021-11 Yes 5mg inject 5 [facility] (MOUNJARO) 0-20 mg under ity o f 5 mg/0.5 mL 00:00: the skin [place] Pn[facility] 00 weekly. [facility] Start [facility] 2.5mg SC qWeek x 4 Weeks, then increase to 5 mg SC qWeek Diclofenac 2021-11 Yes [id number] Apply 4g [facility] Sodium 0-20 to ity of (VOLTAREN) 00:00: affected [place] [facility] 1 % gel 00 area QID [facility] Lidocaine 2021-11 Yes [id number] Apply to [facility] % cream 0-20 area(s) 2 ity of 00:00: (two) [place] 00 times Medical daily as Branch needed for Pain (scale 4-6). Apply 5g to affected areas BID PRN tirzepatide 2021-11 Yes 5mg inject 5 [facility] (MOUNJARO) 0-20 mg under ity o f 5 mg/0.5 mL 00:00: the skin [place] Pn[facility] 00 weekly. [facility] Start [facility] 2.5mg SC qWeek x 4 Weeks, then increase to 5 mg SC qWeek Diclofenac 2021-11 Yes [id number] Apply 4g [facility] Sodium 0-20 to ity of (VOLTAREN) 00:00: affected [place] [facility] % gel 00 area QID [facility] Lidocaine 2021-11 Yes [id number] Apply to [facility] % cream 0-20 area(s) 2 ity of 00:00: (two) [place] 00 times Medical daily as Branch needed for Pain (scale 4-6). Apply 5g to affected areas BID PRN tirzepatide 2021-11 Yes 5mg inject 5 [facility] (MOUNJARO) 0-20 mg under ity o f 5 mg/0.5 mL 00:00: the skin [place] Pn[facility] 00 weekly. [facility] Start [facility] 2.5mg SC qWeek x 4 Weeks, then increase to 5 mg SC qWeek Diclofenac 2021-11 Yes [id number] Apply 4g [facility] Sodium 0-20 to ity of (VOLTAREN) 00:00: affected [place] [facility] 1 % gel 00 area QID [facility] Lidocaine 2021-11 Yes [id number] Apply to [facility] % cream 0-20 area(s) 2 ity of 00:00: (two) [place] 00 times Medical daily as Branch needed for Pain (scale 4-6). Apply 5g to affected areas BID PRN tirzepatide 2021-11 Yes 5mg inject 5 [facility] (MOUNJARO) 0-20 mg under ity o f 5 mg/0.5 mL 00:00: the skin [place] Pn[facility]j 00 weekly. [facility] Start [facility] 2.5mg SC qWeek x 4 Weeks, then increase to 5 mg SC qWeek Diclofenac 2021-11 Yes [id number] Apply 4g [facility] Sodium 0-20 to ity of (VOLTAREN) 00:00: affected [place] [facility] % gel 00 area QID [facility] Lidocaine 5 2021-11 Yes [id number] Apply to [facility] % cream 0-20 area(s) 2 ity of 00:00: (two) [place] 00 times Medical daily as Branch needed for Pain (scale 4-6). Apply 5g to affected areas BID PRN tirzepatide 2021-11 Yes 5mg inject 5 [facility] (MOUNJARO) 0-20 mg under ity o f 5 mg/0.5 mL 00:00: the skin [place] Pn[facility]j 00 weekly. [facility] Start [facility] 2.5mg SC qWeek x 4 Weeks, then increase to 5 mg SC qWeek Diclofenac 2021-11 Yes [id number] Apply 4g [facility] Sodium 0-20 to ity of (VOLTAREN) 00:00: affected [place] [facility] 1 % gel 00 area QID [facility] Lidocaine 2021-11 Yes [id number] Apply to [facility] % cream 0-20 area(s) 2 ity of 00:00: (two) [place] 00 times Medical daily as Branch needed for Pain (scale 4-6). Apply 5g to affected areas BID PRN tirzepatide 2021-11 Yes 5mg inject 5 [facility] (MOUNJARO) 0-20 mg under ity o f 5 mg/0.5 mL 00:00: the skin [place] Pn[facility] 00 weekly. [facility] Start [facility] 2.5mg SC qWeek x 4 Weeks, then increase to 5 mg SC qWeek Diclofenac 2021-11 Yes [id number] Apply 4g [facility] Sodium 0-20 to ity of (VOLTAREN) 00:00: affected [place] [facility] 1 % gel 00 area QID [facility] Lidocaine 5 2021-11 Yes [id number] Apply to [facility] % cream 0-20 area(s) 2 ity of 00:00: (two) [place] 00 times Medical daily as Branch needed for Pain (scale 4-6). Apply 5g to affected areas BID PRN tirzepatide 2021-11 Yes 5mg inject 5 [facility] (MOUNJARO) 0-20 mg under ity o f 5 mg/0.5 mL 00:00: the skin [place] Pn[facility]j 00 weekly. [facility] Start [facility] 2.5mg SC qWeek x 4 Weeks, then increase to 5 mg SC qWeek Diclofenac 2021-11 Yes [id number] Apply 4g [facility] Sodium 0-20 to ity of (VOLTAREN) 00:00: affected [place] [facility] 1 % gel 00 area QID [facility] Lidocaine 2021-11 Yes [id number] Apply to [facility] % cream 0-20 area(s) 2 ity of 00:00: (two) [place] 00 times Medical daily as Branch needed for Pain (scale 4-6). Apply 5g to affected areas BID PRN tirzepatide 2021-11 Yes 5mg inject 5 [facility] (MOUNJARO) 0-20 mg under ity o f 5 mg/0.5 mL 00:00: the skin [place] Pn[facility]j 00 weekly. [facility] Start [facility] 2.5mg SC qWeek x 4 Weeks, then increase to 5 mg SC qWeek Diclofenac 2021-11 Yes [id number] Apply 4g [facility] Sodium 0-20 to ity of (VOLTAREN) 00:00: affected [place] [facility] % gel 00 area QID [facility] Lidocaine 2021-11 Yes [id number] Apply to [facility] % cream 0-20 area(s) 2 ity of 00:00: (two) [place] 00 times Medical daily as Branch needed for Pain (scale 4-6). Apply 5g to affected areas BID PRN tirzepatide 2021-11 Yes 5mg inject 5 [facility] (MOUNJARO) 0-20 mg under ity o f 5 mg/0.5 mL 00:00: the skin [place] [facility] 00 weekly. [facility] Start [facility] 2.5mg SC qWeek x 4 Weeks, then increase to 5 mg SC qWeek Diclofenac 2021-11 Yes [id number] Apply 4g [facility] Sodium 0-20 to ity of (VOLTAREN) 00:00: affected [place] 1 % gel 00 area QID [facility] Lidocaine 5 2021-11 Yes [id number] Apply to [facility] % cream 0-20 area(s) 2 ity of 00:00: (two) [place] 00 times Medical daily as Branch needed for Pain (scale 4-6). Apply 5g to affected areas BID PRN tirzepatide 2021-11 Yes 5mg inject 5 [facility] (MOUNJARO) 0-20 mg under ity o f 5 mg/0.5 mL 00:00: the skin [place] Pn[facility]j 00 weekly. [facility] Start [facility] 2.5mg SC qWeek x 4 Weeks, then increase to 5 mg SC qWeek Diclofenac 2021-11 Yes [id number] Apply 4g [facility] Sodium 0-20 to ity of (VOLTAREN) 00:00: affected [place] 1 % gel 00 area QID [facility] Lidocaine 5 2021-11 Yes [id number] Apply to [facility] % cream 0-20 area(s) 2 ity of 00:00: (two) [place] 00 times Medical daily as Branch needed for Pain (scale 4-6). Apply 5g to affected areas BID PRN tirzepatide 2021-11 Yes 5mg inject 5 [facility] (MOUNJARO) 0-20 mg under ity o f 5 mg/0.5 mL 00:00: the skin [place] [facility] 00 weekly. [facility] Start [facility] 2.5mg SC qWeek x 4 Weeks, then increase to 5 mg SC qWeek Diclofenac 2021-11 Yes [id number] Apply 4g [facility] Sodium 0-20 to ity of (VOLTAREN) 00:00: affected [place] [facility] % gel 00 area QID [facility] Lidocaine 2021-11 Yes [id number] Apply to [facility] % cream 0-20 area(s) 2 ity of 00:00: (two) [place] 00 times Medical daily as Branch needed for Pain (scale 4-6). Apply 5g to affected areas BID PRN tirzepatide 2021-11 Yes 5mg inject 5 [facility] (MOUNJARO) 0-20 mg under ity o f 5 mg/0.5 mL 00:00: the skin [place] Pn[facility] 00 weekly. [facility] Start [facility] 2.5mg SC qWeek x 4 Weeks, then increase to 5 mg SC qWeek Diclofenac 2021-11 Yes [id number] Apply 4g [facility] Sodium 0-20 to ity of (VOLTAREN) 00:00: affected [place] [facility] 1 % gel 00 area QID [facility] Lidocaine 5 2021-11 Yes [id number] Apply to [facility] % cream 0-20 area(s) 2 ity of 00:00: (two) [place] 00 times Medical daily as Branch needed for Pain (scale 4-6). Apply 5g to affected areas BID PRN tirzepatide 2021-11 Yes 5mg inject 5 [facility] (MOUNJARO) 0-20 mg under ity o f 5 mg/0.5 mL 00:00: the skin [place] [facility] 00 weekly. [facility] Start [facility] 2.5mg SC qWeek x 4 Weeks, then increase to 5 mg SC qWeek Diclofenac 2021-11 Yes [id number] Apply 4g [facility] Sodium 0-20 to ity of (VOLTAREN) 00:00: affected [place] 1 % gel 00 area QID [facility] Lidocaine 5 2021-11 Yes [id number] Apply to [facility] % cream 0-20 area(s) 2 ity of 00:00: (two) [place] 00 times Medical daily as Branch needed for Pain (scale 4-6). Apply 5g to affected areas BID PRN tirzepatide 2021-11 Yes 2.5mg inject 2.5 [facility] (MOUNJARO) 0-20 mg under ity o f 2.5 mg/0.5 00:00: the skin [place] mL PnIj 00 weekly. [facility] Start [facility] 2.5mg SC qWeek x 4 Weeks, then increase to 5 mg SC qWeek tirzepatide 2021-11 Yes 5mg inject 5 [facility] (MOUNJARO) 0-20 mg under ity o f 5 mg/0.5 mL 00:00: the skin [place] [facility] 00 weekly. [facility] Start [facility] 2.5mg SC qWeek x 4 Weeks, then increase to 5 mg SC qWeek Diclofenac 2021-11 Yes [id number] Apply 4g [facility] Sodium 0-20 to ity of (VOLTAREN) 00:00: affected [place] [facility] % gel 00 area QID [facility] Lidocaine 5 2021-11 Yes [id number] Apply to [facility] % cream 0-20 area(s) 2 ity of 00:00: (two) [place] 00 times Medical daily as Branch needed for Pain (scale 4-6). Apply 5g to affected areas BID PRN Insulin 2021-11 Yes [id number] INJECT 53 [facility] Glargine 0-20 UNITS ity of ([facility] 00:00: [place] [facility] 00 USLY TWICE Medic al U-100 DAILY Branch INSULIN) 100 unit/mL (3 mL) injection tirzepatide 2021-11 Yes 2.5mg inject 2.5 [facility] (MOUNJARO) 0-20 mg under ity o f 2.5 mg/0.5 00:00: the skin [place] mL PnIj 00 weekly. [facility] Start [facility] 2.5mg SC qWeek x 4 Weeks, then increase to 5 mg SC qWeek tirzepatide 2021-11 Yes 5mg inject 5 [facility] (MOUNJARO) 0-20 mg under ity o f 5 mg/0.5 mL 00:00: the skin [place] [facility] 00 weekly. [facility] Start [facility] 2.5mg SC qWeek x 4 Weeks, then increase to 5 mg SC qWeek Diclofenac 2021-11 Yes [id number] Apply 4g [facility] Sodium 0-20 to ity of (VOLTAREN) 00:00: affected [place] [facility] % gel 00 area QID [facility] Lidocaine 5 2021-11 Yes [id number] Apply to [facility] % cream 0-20 area(s) 2 ity of 00:00: (two) [place] 00 times Medical daily as Branch needed for Pain (scale 4-6). Apply 5g to affected areas BID PRN Insulin 2021-11 Yes [id number] INJECT 53 [facility] Glargine 0-20 UNITS ity of ([facility] 00:00: [place] [facility] 00 USLY TWICE Medic al U-100 DAILY Branch INSULIN) 100 unit/mL (3 mL) injection tirzepatide 2021-11 Yes 2.5mg inject 2.5 [facility] (MOUNJARO) 0-20 mg under ity o f 2.5 mg/0.5 00:00: the skin [place] mL PnIj 00 weekly. [facility] Start [facility] 2.5mg SC qWeek x 4 Weeks, then increase to 5 mg SC qWeek tirzepatide 2021-11 Yes 5mg inject 5 [facility] (MOUNJARO) 0-20 mg under ity o f 5 mg/0.5 mL 00:00: the skin [place] [facility] 00 weekly. [facility] Start [facility] 2.5mg SC qWeek x 4 Weeks, then increase to 5 mg SC qWeek Diclofenac 2021-11 Yes [id number] Apply 4g [facility] Sodium 0-20 to ity of (VOLTAREN) 00:00: affected [place] [facility] 1 % gel 00 area QID [facility] Lidocaine 5 2021-11 Yes [id number] Apply to [facility] % cream 0-20 area(s) 2 ity of 00:00: (two) [place] 00 times Medical daily as Branch needed for Pain (scale 4-6). Apply 5g to affected areas BID PRN Insulin 2021-11 Yes [id number] INJECT 53 [facility] Glargine 0-20 UNITS ity of ([place] 00:00: [place] [facility] 00 USLY TWICE Medic al U-100 DAILY Branch INSULIN) 100 unit/mL (3 mL) injection tirzepatide 2021-11 Yes 2.5mg inject 2.5 [facility] (MOUNJARO) 0-20 mg under ity o f 2.5 mg/0.5 00:00: the skin [place] mL PnIj 00 weekly. [facility] Start [facility] 2.5mg SC qWeek x 4 Weeks, then increase to 5 mg SC qWeek tirzepatide 2021-11 Yes 5mg inject 5 [facility] (MOUNJARO) 0-20 mg under ity o f 5 mg/0.5 mL 00:00: the skin [place] [facility] 00 weekly. [facility] Start [facility] 2.5mg SC qWeek x 4 Weeks, then increase to 5 mg SC qWeek Diclofenac 2021-11 Yes [id number] Apply 4g [facility] Sodium 0-20 to ity of (VOLTAREN) 00:00: affected [place] [facility] 1 % gel 00 area QID [facility] Lidocaine 5 2021-11 Yes [id number] Apply to [facility] % cream 0-20 area(s) 2 ity of 00:00: (two) [place] 00 times Medical daily as Branch needed for Pain (scale 4-6). Apply 5g to affected areas BID PRN Insulin 2021-11 Yes [id number] INJECT 53 [facility] Glargine 0-20 UNITS ity of ([place] 00:00: [place] [facility] 00 USLY TWICE Medic al U-100 DAILY Branch INSULIN) 100 unit/mL (3 mL) injection tirzepatide 2021-11 Yes 2.5mg inject 2.5 [facility] (MOUNJARO) 0-20 mg under ity o f 2.5 mg/0.5 00:00: the skin [place] mL PnIj 00 weekly. [facility] Start [facility] 2.5mg SC qWeek x 4 Weeks, then increase to 5 mg SC qWeek tirzepatide 2021-11 Yes 5mg inject 5 [facility] (MOUNJARO) 0-20 mg under ity o f 5 mg/0.5 mL 00:00: the [place] [facility] 00 weekly. [facility] Start [facility] 2.5mg SC qWeek x 4 Weeks, then increase to 5 mg SC qWeek Diclofenac 2021-11 Yes [id number] Apply 4g [facility] Sodium 0-20 to ity of (VOLTAREN) 00:00: affected [place] [facility] 1 % gel 00 area QID [facility] Lidocaine 5 2021-11 Yes [id number] Apply to [facility] % cream 0-20 area(s) 2 ity of 00:00: (two) [place] 00 times Medical daily as Branch needed for Pain (scale 4-6). Apply 5g to affected areas BID PRN Insulin 2021-11 Yes [id number] INJECT 53 [facility] Glargine 0-20 UNITS ity of ([place] 00:00: [place] [facility] 00 USLY TWICE Medic al U-100 DAILY Branch INSULIN) 100 unit/mL (3 mL) injection tirzepatide 2021-11 Yes 2.5mg inject 2.5 [facility] (MOUNJARO) 0-20 mg under ity o f 2.5 mg/0.5 00:00: the skin [place] mL PnIj 00 weekly. [facility] Start [facility] 2.5mg SC qWeek x 4 Weeks, then increase to 5 mg SC qWeek tirzepatide 2021-11 Yes 5mg inject 5 [facility] (MOUNJARO) 0-20 mg under ity o f 5 mg/0.5 mL 00:00: the skin [place] [facility] 00 weekly. [facility] Start [facility] 2.5mg SC qWeek x 4 Weeks, then increase to 5 mg SC qWeek Diclofenac 2021-11 Yes [id number] Apply 4g [facility] Sodium 0-20 to ity of (VOLTAREN) 00:00: affected [place] [facility] 1 % gel 00 area QID Medical [facility] Lidocaine 5 2021-11 Yes [id number] Apply to [facility] % cream 0-20 area(s) 2 ity of 00:00: (two) [place] 00 times Medical daily as Branch needed for Pain (scale 4-6). Apply 5g to affected areas BID PRN Insulin 2021-11 Yes [id number] INJECT 53 [facility] Glargine 0-20 UNITS ity of ([place] 00:00: [place] [facility] 00 USLY TWICE Medic al U-100 DAILY Branch INSULIN) 100 unit/mL (3 mL) injection tirzepatide 2021-11 Yes 2.5mg inject 2.5 [facility] (MOUNJARO) 0-20 mg under ity o f 2.5 mg/0.5 00:00: the skin [place] [facility] mL PnIj 00 weekly. [facility] Start Branch 2.5mg SC qWeek x 4 Weeks, then increase to 5 mg SC qWeek tirzepatide 2021-11 Yes 5mg inject 5 [facility] (MOUNJARO) 0-20 mg under ity o f 5 mg/0.5 mL 00:00: the skin [place] Pn[facility] 00 weekly. [facility] Start [facility] 2.5mg SC qWeek x 4 Weeks, then increase to 5 mg SC qWeek Diclofenac 2021-11 Yes [id number] Apply 4g [facility] Sodium 0-20 to ity of (VOLTAREN) 00:00: affected [place] [facility] 1 % gel 00 area QID [facility] Lidocaine 5 2021-11 Yes [id number] Apply to [facility] % cream 0-20 area(s) 2 ity of 00:00: (two) [place] 00 times Medical daily as Branch needed for Pain (scale 4-6). Apply 5g to affected areas BID PRN Insulin 2021-11 Yes [id number] INJECT 53 U nivers Glargine 0-20 UNITS ity of ([place] 00:00: [place] 00 USLY TWICE Medic al U-100 DAILY Branch INSULIN) 100 unit/mL (3 mL) injection tirzepatide 2021-11 Yes 2.5mg inject 2.5 Univers (MOUNJARO) 0-20 mg under ity o f 2.5 mg/0.5 00:00: the skin [place] as mL PnIj 00 weekly. Medical Start Branch 2.5mg SC qWeek x 4 Weeks, then increase to 5 mg SC qWeek tirzepatide 2021-11 Yes 5mg inject 5 Un godfrey (MOUNJARO) 0-20 mg under ity o f 5 mg/0.5 mL 00:00: [place] Pn[place]j 00 weekly. [facility] 2.5mg SC qWeek x 4 Weeks, then increase to 5 mg SC qWeek Diclofenac 2021-11 Yes [id number] Apply 4g [facility] Sodium 0-20 to ity of (VOLTAREN) 00:00: affected [place] [facility] 1 % gel 00 area QID Medical Branch Lidocaine 5 2021-11 Yes [id number] Apply to [facility] % cream 0-20 area(s) 2 ity of 00:00: (two) [place] 00 times Medical daily as Branch needed for Pain (scale 4-6). Apply 5g to affected areas BID PRN Insulin 2021-11 Yes [id number] INJECT 53 U nivers Glargine 0-20 UNITS ity of ([place] 00:00: [place] [facility] 00 USLY TWICE Medic al U-100 DAILY Branch INSULIN) 100 unit/mL (3 mL) injection tirzepatide 2021-11 Yes 2.5mg inject 2.5 [facility] (MOUNJARO) 0-20 mg under ity o f 2.5 mg/0.5 00:00: the skin [place] mL PnIj 00 weekly. [facility] Start [facility] 2.5mg SC qWeek x 4 Weeks, then increase to 5 mg SC qWeek tirzepatide 2021-11 Yes 5mg inject 5 [facility] (MOUNJARO) 0-20 mg under ity o f 5 mg/0.5 mL 00:00: the skin [place] Pn[place] 00 weekly. [facility] 2.5mg SC qWeek x 4 Weeks, then increase to 5 mg SC qWeek Diclofenac 2021-11 Yes [id number] Apply 4g [facility] Sodium 0-20 to ity of (VOLTAREN) 00:00: affected [place] 1 % gel 00 area QID Medical Branch Lidocaine 5 2021-11 Yes [id number] Apply to [facility] % cream 0-20 area(s) 2 ity of 00:00: (two) [place] 00 times Medical daily as Branch needed for Pain (scale 4-6). Apply 5g to affected areas BID PRN Insulin 2021-11 Yes [id number] INJECT 53 [facility] Glargine 0-20 UNITS ity of ([place] 00:00: [place] [facility] 00 USLY TWICE Medic al U-100 DAILY Branch INSULIN) 100 unit/mL (3 mL) injection tirzepatide 2021-11 Yes 2.5mg inject 2.5 [facility] (MOUNJARO) 0-20 mg under ity o f 2.5 mg/0.5 00:00: the skin [place] mL PnIj 00 weekly. [facility] Start [facility] 2.5mg SC qWeek x 4 Weeks, then increase to 5 mg SC qWeek tirzepatide 2021-11 Yes 5mg inject 5 [facility] (MOUNJARO) 0-20 mg under ity o f 5 mg/0.5 mL 00:00: the skin [place] Pn[place] 00 weekly. [facility] 2.5mg SC qWeek x 4 Weeks, then increase to 5 mg SC qWeek Diclofenac 2021-11 Yes [id number] Apply 4g [facility] Sodium 0-20 to ity of (VOLTAREN) 00:00: affected [place] 1 % gel 00 area QID Medical Branch Lidocaine 5 2021-11 Yes [id number] Apply to [facility] % cream 0-20 area(s) 2 ity of 00:00: (two) [place] 00 times Medical daily as Branch needed for Pain (scale 4-6). Apply 5g to affected areas BID PRN Insulin 2021-11 Yes [id number] INJECT 53 [facility] Gl[place] 0-20 UNITS ity of ([place] 00:00: [place] [facility] 00 USLY TWICE Medic al U-100 DAILY Branch INSULIN) 100 unit/mL (3 mL) injection tirzepatide 2021-11 Yes 2.5mg inject 2.5 [facility] (MOUNJARO) 0-20 mg under ity o f 2.5 mg/0.5 00:00: the skin [place] mL PnIj 00 weekly. [facility] Start [facility] 2.5mg SC qWeek x 4 Weeks, then increase to 5 mg SC qWeek tirzepatide 2021-11 Yes 5mg inject 5 [facility] (MOUNJARO) 0-20 mg under ity o f 5 mg/0.5 mL 00:00: the [place] P[place] 00 weekly. [facility] 2.5mg SC qWeek x 4 Weeks, then increase to 5 mg SC qWeek Diclofenac 2021-11 Yes [id number] Apply 4g [facility] Sodium 0-20 to ity of (VOLTAREN) 00:00: affected [place] 1 % gel 00 area QID Medical Branch Lidocaine 5 2021-11 Yes [id number] Apply to [facility] % cream 0-20 area(s) 2 ity of 00:00: (two) [place] 00 times Medical daily as Branch needed for Pain (scale 4-6). Apply 5g to affected areas BID PRN Insulin 2021-11 Yes [id number] INJECT 53 [facility] Gl[place] 0-20 UNITS ity of ([place] 00:00: [place] [facility] 00 USLY TWICE Medic al U-100 DAILY Branch INSULIN) 100 unit/mL (3 mL) injection tirzepatide 2021-11 Yes 2.5mg inject 2.5 [facility] (MOUNJARO) 0-20 mg under ity o f 2.5 mg/0.5 00:00: the skin [place] mL PnIj 00 weekly. [facility] Start [facility] 2.5mg SC qWeek x 4 Weeks, then increase to 5 mg SC qWeek tirzepatide 2021-11 Yes 5mg inject 5 [facility] (MOUNJARO) 0-20 mg under ity o f 5 mg/0.5 mL 00:00: the skin [place] Pn[place] 00 weekly. [facility] 2.5mg SC qWeek x 4 Weeks, then increase to 5 mg SC qWeek Diclofenac 2021-11 Yes [id number] Apply 4g [facility] Sodium 0-20 to ity of (VOLTAREN) 00:00: affected [place] 1 % gel 00 area QID Medical Branch Lidocaine 5 2021-11 Yes [id number] Apply to [facility] % cream 0-20 area(s) 2 ity of 00:00: (two) [place] 00 times Medical daily as Branch needed for Pain (scale 4-6). Apply 5g to affected areas BID PRN Insulin 2021-11 Yes [id number] INJECT 53 [facility] [place] 0-20 UNITS ity of ([place] 00:00: [place] [facility] 00 USLY TWICE Medic al U-100 DAILY Branch INSULIN) 100 unit/mL (3 mL) injection tirzepatide 2021-11 Yes 2.5mg inject 2.5 [facility] (MOUNJARO) 0-20 mg under ity o f 2.5 mg/0.5 00:00: the skin [place] mL PnIj 00 weekly. [facility] Start [facility] 2.5mg SC qWeek x 4 Weeks, then increase to 5 mg SC qWeek tirzepatide 2021-11 Yes 5mg inject 5 [facility] (MOUNJARO) 0-20 mg under ity o f 5 mg/0.5 mL 00:00: the skin [place] Pn[place] 00 weekly. [facility] 2.5mg SC qWeek x 4 Weeks, then increase to 5 mg SC qWeek Diclofenac 2021-11 Yes [id number] Apply 4g [facility] Sodium 0-20 to ity of (VOLTAREN) 00:00: affected [place] 1 % gel 00 area QID Medical Branch Lidocaine 5 2021-11 Yes [id number] Apply to [facility] % cream 0-20 area(s) 2 ity of 00:00: (two) [place] 00 times Medical daily as Branch needed for Pain (scale 4-6). Apply 5g to affected areas BID PRN Insulin 2021-11 Yes [id number] INJECT 53 [facility] [place] 0-20 UNITS ity of ([place] 00:00: [place] [facility] 00 USLY TWICE Medic al U-100 DAILY Branch INSULIN) 100 unit/mL (3 mL) injection tirzepatide 2021-11 Yes 2.5mg inject 2.5 [facility] (MOUNJARO) 0-20 mg under ity o f 2.5 mg/0.5 00:00: the skin [place] mL PnIj 00 weekly. [facility] Start [facility] 2.5mg SC qWeek x 4 Weeks, then increase to 5 mg SC qWeek tirzepatide 2021-11 Yes 5mg inject 5 [facility] (MOUNJARO) 0-20 mg under ity o f 5 mg/0.5 mL 00:00: the skin [place] P[place] 00 weekly. [facility] 2.5mg SC qWeek x 4 Weeks, then increase to 5 mg SC qWeek Diclofenac 2021-11 Yes [id number] Apply 4g [facility] Sodium 0-20 to ity of (VOLTAREN) 00:00: affected [place] 1 % gel 00 area QID Medical Branch Lidocaine 5 2021-11 Yes [id number] Apply to [facility] % cream 0-20 area(s) 2 ity of 00:00: (two) [place] 00 times Medical daily as Branch needed for Pain (scale 4-6). Apply 5g to affected areas BID PRN Insulin 2021-11 Yes [id number] INJECT 53 [facility] [place] 0-20 UNITS ity of ([place] 00:00: [place] [facility] 00 USLY TWICE Medic al U-100 DAILY Branch INSULIN) 100 unit/mL (3 mL) injection tirzepatide 2021-11 Yes 2.5mg inject 2.5 [facility] (MOUNJARO) 0-20 mg under ity o f 2.5 mg/0.5 00:00: the skin [place] mL PnIj 00 weekly. [facility] Start [facility] 2.5mg SC qWeek x 4 Weeks, then increase to 5 mg SC qWeek tirzepatide 2021-11 Yes 5mg inject 5 [facility] (MOUNJARO) 0-20 mg under ity o f 5 mg/0.5 mL 00:00: the skin [place] P[place] 00 weekly. [facility] 2.5mg SC qWeek x 4 Weeks, then increase to 5 mg SC qWeek Diclofenac 2021-11 Yes [id number] Apply 4g [facility] Sodium 0-20 to ity of (VOLTAREN) 00:00: affected [place] 1 % gel 00 area QID Medical Branch Lidocaine 5 2021-11 Yes [id number] Apply to [facility] % cream 0-20 area(s) 2 ity of 00:00: (two) [place] 00 times Medical daily as Branch needed for Pain (scale 4-6). Apply 5g to affected areas BID PRN Insulin 2021-11 Yes [id number] INJECT 53 [facility] [place] 0-20 UNITS ity of ([place] 00:00: [place] [facility] 00 USLY TWICE Medic al U-100 DAILY Branch INSULIN) 100 unit/mL (3 mL) injection tirzepatide 2021-11 Yes 2.5mg inject 2.5 [facility] (MOUNJAR[facility]) 0-20 mg under ity o f 2.5 mg/0.5 00:00: the skin [place] mL PnIj 00 weekly. [facility] Start [facility] 2.5mg SC qWeek x 4 Weeks, then increase to 5 mg SC qWeek tirzepatide 2021-11 Yes 5mg inject 5 [facility] (MOUNJARO) 0-20 mg under ity o f 5 mg/0.5 mL 00:00: the skin [place] P[facility] 00 weekly. [facility] 2.5mg SC qWeek x 4 Weeks, then increase to 5 mg SC qWeek Diclofenac 2021-11 Yes [id number] Apply 4g [facility] Sodium 0-20 to ity of (VOLTAREN) 00:00: affected [place] 1 % gel 00 area QID Medical Branch Lidocaine 5 2021-11 Yes [id number] Apply to [facility] % cream 0-20 area(s) 2 ity of 00:00: (two) [place] 00 times Medical daily as Branch needed for Pain (scale 4-6). Apply 5g to affected areas BID PRN Insulin 2021-11 Yes [id number] INJECT 53 [facility] [place] 0-20 UNITS ity of ([place] 00:00: [place] [facility] 00 USLY TWICE Medic al U-100 DAILY Branch INSULIN) 100 unit/mL (3 mL) injection tirzepatide 2021-11 Yes 2.5mg inject 2.5 [facility] (MOUNJARO) 0-20 mg under ity o f 2.5 mg/0.5 00:00: the skin [place] mL PnIj 00 weekly. [facility] Start [facility] 2.5mg SC qWeek x 4 Weeks, then increase to 5 mg SC qWeek tirzepatide 2021-11 Yes 5mg inject 5 [facility] (MOUNJARO) 0-20 mg under ity o f 5 mg/0.5 mL 00:00: the skin [place] Pn[place] 00 weekly. [facility] Start [facility] 2.5mg SC qWeek x 4 Weeks, then increase to 5 mg SC qWeek Diclofenac 2021-11 Yes [id number] Apply 4g [facility] Sodium 0-20 to ity of (VOLTAREN) 00:00: affected [place] 1 % gel 00 area QID Medical Branch Lidocaine 5 2021-11 Yes [id number] Apply to [facility] % cream 0-20 area(s) 2 ity of 00:00: (two) [place] 00 times Medical daily as Branch needed for Pain (scale 4-6). Apply 5g to affected areas BID PRN Insulin 2021-11 Yes [id number] INJECT 53 [facility] [place] 0-20 UNITS ity of ([place] 00:00: [place] [facility] 00 USLY TWICE Medic al U-100 DAILY Branch INSULIN) 100 unit/mL (3 mL) injection tirzepatide 2021-11 Yes 2.5mg inject 2.5 [facility] (MOUNJARO) 0-20 mg under ity o f 2.5 mg/0.5 00:00: the skin [place] mL PnIj 00 weekly. [facility] Start Branch 2.5mg SC qWeek x 4 Weeks, then increase to 5 mg SC qWeek tirzepatide 2021-11 Yes 5mg inject 5 [facility] (MOUNJARO) 0-20 mg under ity o f 5 mg/0.5 mL 00:00: the skin [place] Pn[place] 00 weekly. [facility] Start [facility] 2.5mg SC qWeek x 4 Weeks, then increase to 5 mg SC qWeek Diclofenac 2021-11 Yes [id number] Apply 4g [facility] Sodium 0-20 to ity of (VOLTAREN) 00:00: affected [place] 1 % gel 00 area QID Medical Branch Lidocaine 5 2021-11 Yes [id number] Apply to [facility] % cream 0-20 area(s) 2 ity of 00:00: (two) [place] 00 times Medical daily as Branch needed for Pain (scale 4-6). Apply 5g to affected areas BID PRN Insulin 2021-11 Yes [id number] INJECT 53 [facility] [place] 0-20 UNITS ity of ([place] 00:00: [place] [facility] 00 USLY TWICE Medic al U-100 DAILY Branch INSULIN) 100 unit/mL (3 mL) injection tirzepatide 2021-11 Yes 2.5mg inject 2.5 [facility] (MOUNJARO) 0-20 mg under ity o f 2.5 mg/0.5 00:00: the skin [place] mL PnIj 00 weekly. Medical Start [facility] 2.5mg SC qWeek x 4 Weeks, then increase to 5 mg SC qWeek tirzepatide 2021-11 Yes 5mg inject 5 [facility] (MOUNJARO) 0-20 mg under ity o f 5 mg/0.5 mL 00:00: the skin [place] Pn[place] 00 weekly. [facility] Start [facility] 2.5mg SC qWeek x 4 Weeks, then increase to 5 mg SC qWeek Diclofenac 2021-11 Yes [id number] Apply 4g [facility] Sodium 0-20 to ity of (VOLTAREN) 00:00: affected [place] 1 % gel 00 area QID Medical Branch Lidocaine 5 2021-11 Yes [id number] Apply to [facility] % cream 0-20 area(s) 2 ity of 00:00: (two) [place] 00 times Medical daily as Branch needed for Pain (scale 4-6). Apply 5g to affected areas BID PRN Insulin 2021-11 Yes [id number] INJECT 53 [facility] [place] 0-20 UNITS ity of ([place] 00:00: [place] [facility] 00 USLY TWICE Medic al U-100 DAILY Branch INSULIN) 100 unit/mL (3 mL) injection tirzepatide 2021-11 Yes 2.5mg inject 2.5 [facility] (MOUNJARO) 0-20 mg under ity o f 2.5 mg/0.5 00:00: the skin [place] mL PnIj 00 weekly. [facility] Start [facility] 2.5mg SC qWeek x 4 Weeks, then increase to 5 mg SC qWeek tirzepatide 2021-11 Yes 5mg inject 5 [facility] (MOUNJARO) 0-20 mg under ity o f 5 mg/0.5 mL 00:00: the [place] Pn[place]j 00 weekly. [facility] Start [facility] 2.5mg SC qWeek x 4 Weeks, then increase to 5 mg SC qWeek Diclofenac 2021-11 Yes [id number] Apply 4g [facility] Sodium 0-20 to ity of (VOLTAREN) 00:00: affected [place] 1 % gel 00 area QID Medical Branch Lidocaine 5 2021-11 Yes [id number] Apply to [facility] % cream 0-20 area(s) 2 ity of 00:00: (two) [place] 00 times Medical daily as Branch needed for Pain (scale 4-6). Apply 5g to affected areas BID PRN Insulin 2021-11 Yes [id number] INJECT 53 [facility] [place] 0-20 UNITS ity of ([place] 00:00: [place] [facility] 00 USLY TWICE Medic al U-100 DAILY Branch INSULIN) 100 unit/mL (3 mL) injection tirzepatide 2021-11 Yes 2.5mg inject 2.5 [facility] (MOUNJARO) 0-20 mg under ity o f 2.5 mg/0.5 00:00: the skin [place] mL PnIj 00 weekly. [facility] Start [facility] 2.5mg SC qWeek x 4 Weeks, then increase to 5 mg SC qWeek tirzepatide 2021-11 Yes 5mg inject 5 [facility] (MOUNJARO) 0-20 mg under ity o f 5 mg/0.5 mL 00:00: the skin [place] Pn[place]j 00 weekly. [facility] Start [facility] 2.5mg SC qWeek x 4 Weeks, then increase to 5 mg SC qWeek Diclofenac 2021-11 Yes [id number] Apply 4g [facility] Sodium 0-20 to ity of (VOLTAREN) 00:00: affected [place] 1 % gel 00 area QID Medical Branch Lidocaine 5 2021-11 Yes [id number] Apply to [facility] % cream 0-20 area(s) 2 ity of 00:00: (two) [place] 00 times Medical daily as Branch needed for Pain (scale 4-6). Apply 5g to affected areas BID PRN Insulin 2021-11 Yes [id number] INJECT 53 [facility] [place] 0-20 UNITS ity of ([place] 00:00: [place] [facility] 00 USLY TWICE Medic al U-100 DAILY Branch INSULIN) 100 unit/mL (3 mL) injection tirzepatide 2021-11 Yes 2.5mg inject 2.5 [facility] (MOUNJARO) 0-20 mg under ity o f 2.5 mg/0.5 00:00: the skin [place] mL PnIj 00 weekly. [facility] Start Branch 2.5mg SC qWeek x 4 Weeks, then increase to 5 mg SC qWeek tirzepatide 2021-11 Yes 5mg inject 5 [facility] (MOUNJARO) 0-20 mg under ity o f 5 mg/0.5 mL 00:00: the [place] Pn[place]j 00 weekly. [facility] Start [facility] 2.5mg SC qWeek x 4 Weeks, then increase to 5 mg SC qWeek Diclofenac 2021-11 Yes [id number] Apply 4g [facility] Sodium 0-20 to ity of (VOLTAREN) 00:00: affected [place] 1 % gel 00 area QID Medical Branch Lidocaine 5 2021-11 Yes [id number] Apply to [facility] % cream 0-20 area(s) 2 ity of 00:00: (two) [place] 00 times Medical daily as Branch needed for Pain (scale 4-6). Apply 5g to affected areas BID PRN Insulin 2021-11 Yes [id number] INJECT 53 [facility] n[facility] [place] 0-20 UNITS ity of ([place] 00:00: [place] [facility] 00 USLY TWICE Medic al U-100 DAILY Branch INSULIN) 100 unit/mL (3 mL) injection tirzepatide 2021-11 Yes 2.5mg inject 2.5 [facility] (MOUNJARO) 0-20 mg under ity o f 2.5 mg/0.5 00:00: the skin [place] mL PnIj 00 weekly. [facility] Start Branch 2.5mg SC qWeek x 4 Weeks, then increase to 5 mg SC qWeek tirzepatide 2021-11 Yes 5mg inject 5 [facility] (MOUNJARO) 0-20 mg under ity o f 5 mg/0.5 mL 00:00: the skin [place] Pn[place]j 00 weekly. [facility] Start [facility] 2.5mg SC qWeek x 4 Weeks, then increase to 5 mg SC qWeek Diclofenac 2021-11 Yes [id number] Apply 4g [facility] Sodium 0-20 to ity of (VOLTAREN) 00:00: affected [place] 1 % gel 00 area QID Medical Branch Lidocaine 5 2021-11 Yes [id number] Apply to [facility] % cream 0-20 area(s) 2 ity of 00:00: (two) [place] 00 times Medical daily as Branch needed for Pain (scale 4-6). Apply 5g to affected areas BID PRN Insulin 2021-11 Yes [id number] INJECT 53 [facility] [place] 0-20 UNITS ity of ([place] 00:00: [place] [facility] 00 USLY TWICE Medic al U-100 DAILY Branch INSULIN) 100 unit/mL (3 mL) injection tirzepatide 2021-11 Yes 2.5mg inject 2.5 [facility] (MOUNJARO) 0-20 mg under ity o f 2.5 mg/0.5 00:00: the skin [place] mL PnIj 00 weekly. [facility] Start Branch 2.5mg SC qWeek x 4 Weeks, then increase to 5 mg SC qWeek tirzepatide 2021-11 Yes 5mg inject 5 [facility] (MOUNJARO) 0-20 mg under ity o f 5 mg/0.5 mL 00:00: the skin [place] Pn[place]j 00 weekly. [facility] Start [facility] 2.5mg SC qWeek x 4 Weeks, then increase to 5 mg SC qWeek Diclofenac 2021-11 Yes [id number] Apply 4g [facility] Sodium 0-20 to ity of (VOLTAREN) 00:00: affected [place] 1 % gel 00 area QID Medical Branch Lidocaine 5 2021-11 Yes [id number] Apply to [facility] % cream 0-20 area(s) 2 ity of 00:00: (two) [place] 00 times Medical daily as Branch needed for Pain (scale 4-6). Apply 5g to affected areas BID PRN Insulin 2021-11 Yes [id number] INJECT 53 [facility] [place] 0-20 UNITS ity of ([place] 00:00: [place] [facility] 00 USLY TWICE Medic al U-100 DAILY Branch INSULIN) 100 unit/mL (3 mL) injection tirzepatide 2021-11 Yes 2.5mg inject 2.5 [facility] (MOUNJARO) 0-20 mg under ity o f 2.5 mg/0.5 00:00: the skin [place] mL PnIj 00 weekly. Medical Start Branch 2.5mg SC qWeek x 4 Weeks, then increase to 5 mg SC qWeek tirzepatide 2021-11 Yes 5mg inject 5 [facility] (MOUNJARO) 0-20 mg under ity o f 5 mg/0.5 mL 00:00: the skin [place] Pn[place]j 00 weekly. [facility] Start [facility] 2.5mg SC qWeek x 4 Weeks, then increase to 5 mg SC qWeek Diclofenac 2021-11 Yes [id number] Apply 4g [facility] Sodium 0-20 to ity of (VOLTAREN) 00:00: affected [place] 1 % gel 00 area QID Medical Branch Lidocaine 5 2021-11 Yes [id number] Apply to [facility] % cream 0-20 area(s) 2 ity of 00:00: (two) [place] 00 times Medical daily as Branch needed for Pain (scale 4-6). Apply 5g to affected areas BID PRN Insulin 2021-11 Yes [id number] INJECT 53 [facility] [place] 0-20 UNITS ity of ([place] 00:00: [place] [facility] 00 USLY TWICE Medic al U-100 DAILY Branch INSULIN) 100 unit/mL (3 mL) injection tirzepatide 2021-11- No 2.5mg inject 2.5 [facility] (MOUNJARO) 0-20 02-06 mg under ity of 2.5 mg/0.5 00:00: 00:00 the skin [place] mL PnIj 00 :00 weekly. Medical Start Branch 2.5mg SC qWeek x 4 Weeks, then increase to 5 mg SC qWeek tirzepatide 2021-11 No 2.5mg inject 2.5 [facility] (MOUNJARO) 0-20 02-06 mg under ity of 2.5 mg/0.5 00:00: 00:00 the skin [place] mL PnIj 00 :00 weekly. Medical Start Branch 2.5mg SC qWeek x 4 Weeks, then increase to 5 mg SC qWeek tirzepatide 2021-11- No 2.5mg inject 2.5 [facility] (MOUNJARO) 0-20 02-06 mg under ity of 2.5 mg/0.5 00:00: 00:00 the skin [place] mL PnIj 00 :00 weekly. Medical Start Branch 2.5mg SC qWeek x 4 Weeks, then increase to 5 mg SC qWeek Insulin 2021-11- No [id number] INJECT 53 [facility] Glargine 0-20 12-23 UNITS ity of ([place] 00:00: 00:00 SUBCUTANEO [place] [facility] 00 :00 USLY TWICE Medic al U-100 DAILY Branch INSULIN) 100 unit/mL (3 mL) injection traMADoL 50 2021-11- No [id number] 50mg Take 1 [facility] vers mg tablet 0-20 10-28 tablet by ity of 00:00: 04:59 mouth [place] 00 :00 every 8 Medical (eight) Branch hours as needed for Pain (scale 7-10) for up to 7 days. Indication s: chronic pain traMADoL 50 2021-11- No [id number] 50mg Take 1 [facility] vers mg tablet 0-20 10-28 tablet by ity of 00:00: 04:59 mouth [place] 00 :00 every 8 Medical (eight) Branch hours as needed for Pain (scale 7-10) for up to 7 days. Indication s: chronic pain traMADoL 50 2021-11 No [id number] 50mg Take 1 [facility] vers mg tablet 0-20 10-28 tablet by ity of 00:00: 04:59 mouth [place] 00 :00 every 8 Medical (eight) Branch hours as needed for Pain (scale 7-10) for up to 7 days. Indication s: chronic pain traMADoL 50 2021-11 No [id number] 50mg Take 1 [facility] vers mg tablet 0-20 10-28 tablet by ity of 00:00: 04:59 mouth [place] 00 :00 every 8 Medical (eight) Branch hours as needed for Pain (scale 7-10) for up to 7 days. Indication s: chronic pain bumetanide Yes [id number] Take 2tabs [facility] 0.5 mg 9-21 in AM 1tab ity of tablet 00:00: in PM [place] [facility] bumetanide 0 Yes [id number] Take 2tabs [facility] 0.5 mg 9-21 in AM 1tab ity of tablet 00:00: in PM [place] [facility] bumetanide 0 Yes [id number] Take 2tabs [facility] 0.5 mg 9-21 in AM 1tab ity of tablet 00:00: in [facility] bumetanide 0 Yes [id number] Take 2tabs [facility] 0.5 mg 9-21 in AM 1tab ity of tablet 00:00: in PM [place] [facility] bumetanide 0 Yes [id number] Take 2tabs [facility] 0.5 mg 9-21 in AM 1tab ity of tablet 00:00: in [facility] bumetanide 0 Yes [id number] Take 2tabs [facility] 0.5 mg 9-21 in AM 1tab ity of tablet 00:00: in [facility] bumetanide 0 Yes [id number] Take 2tabs [facility] 0.5 mg 9-21 in AM 1tab ity of tablet 00:00: in [place] [address] Medical Branch bumetanide 0 Yes [id number] Take 2tabs [facility] 0.5 mg 9-21 in AM 1tab ity of tablet 00:00: in [facility] bumetanide Yes [id number] Take 2tabs [facility] 0.5 mg 9-21 in AM 1tab ity of tablet 00:00: in [place] [address] Medical Branch bumetanide 0 Yes [id number] Take 2tabs [facility] 0.5 mg 9-21 in AM 1tab ity of tablet 00:00: in [place] [address] Medical Branch bumetanide 0 Yes [id number] Take 2tabs [facility] 0.5 mg 9-21 in AM 1tab ity of tablet 00:00: in [place] [address] Medical Branch bumetanide 0 Yes [id number] Take 2tabs [facility] 0.5 mg 9-21 in AM 1tab ity of tablet 00:00: in [place] [address] Medical Branch bumetanide 0 Yes [id number] Take 2tabs [facility] 0.5 mg 9-21 in AM 1tab ity of tablet 00:00: in [place] [address] Medical Branch bumetanide 0 Yes [id number] Take 2tabs [facility] 0.5 mg 9-21 in AM 1tab ity of tablet 00:00: in [place] [address] Medical Branch bumetanide 0 Yes [id number] Take 2tabs [facility] 0.5 mg 9-21 in AM 1tab ity of tablet 00:00: in [place] [address] Medical Branch bumetanide 0 Yes [id number] Take 2tabs [facility] 0.5 mg 9-21 in AM 1tab ity of tablet 00:00: in [place] [address] Medical Branch bumetanide 0 Yes [id number] Take 2tabs [facility] 0.5 mg 9-21 in AM 1tab ity of tablet 00:00: in [place] [address] Medical Branch bumetanide 0 Yes [id number] Take 2tabs [facility] 0.5 mg 9-21 in AM 1tab ity of tablet 00:00: in [facility] bumetanide 0 Yes [id number] Take 2tabs [facility] 0.5 mg 9-21 in AM 1tab ity of tablet 00:00: in [place] [address] Medical Branch bumetanide 0 Yes [id number] Take 2tabs [facility] 0.5 mg 9-21 in AM 1tab ity of tablet 00:00: in [place] [address] Medical Branch bumetanide 0 Yes [id number] Take 2tabs [facility] 0.5 mg 9-21 in AM 1tab ity of tablet 00:00: in [place] [address] Medical Branch bumetanide 0 Yes [id number] Take 2tabs [facility] 0.5 mg 9-21 in AM 1tab ity of tablet 00:00: in [place] [address] Medical Branch bumetanide 0 Yes [id number] Take 2tabs [facility] 0.5 mg 9-21 in AM 1tab ity of tablet 00:00: in [place] [address] Medical Branch bumetanide 0 Yes [id number] Take 2tabs [facility] 0.5 mg 9-21 in AM 1tab ity of tablet 00:00: in [place] [address] Medical Branch bumetanide 0 Yes [id number] Take 2tabs [facility] 0.5 mg 9-21 in AM 1tab ity of tablet 00:00: in [place] [address] Medical Branch bumetanide 0 Yes [id number] Take 2tabs [facility] 0.5 mg 9-21 in AM 1tab ity of tablet 00:00: in [place] [address] Medical Branch bumetanide 0 Yes [id number] Take 2tabs [facility] 0.5 mg 9-21 in AM 1tab ity of tablet 00:00: in [place] [address] Medical Branch bumetanide 0 Yes [id number] Take 2tabs [facility] 0.5 mg 9-21 in AM 1tab ity of tablet 00:00: in [facility] bumetanide 0 Yes [id number] Take 2tabs [facility] 0.5 mg 9-21 in AM 1tab ity of tablet 00:00: in [place] [address] Medical Branch bumetanide 0 Yes [id number] Take 2tabs [facility] 0.5 mg 9-21 in AM 1tab ity of tablet 00:00: in [place] [address] Medical Branch bumetanide 0 Yes [id number] Take 2tabs [facility] 0.5 mg 9-21 in AM 1tab ity of tablet 00:00: in [place] [address] Medical Branch bumetanide 0 Yes [id number] Take 2tabs [facility] 0.5 mg 9-21 in AM 1tab ity of tablet 00:00: in [place] [address] Medical Branch bumetanide 0 Yes [id number] Take 2tabs [facility] 0.5 mg 9-21 in AM 1tab ity of tablet 00:00: in [place] [address] Medical Branch bumetanide 0 Yes [id number] Take 2tabs [facility] 0.5 mg 9-21 in AM 1tab ity of tablet 00:00: in [place] [address] [facility] bumetanide 0 Yes [id number] Take 2tabs [facility] 0.5 mg 9-21 in AM 1tab ity of tablet 00:00: in [place] [address] [facility] bumetanide 0 Yes [id number] Take 2tabs [facility] 0.5 mg 9-21 in AM 1tab ity of tablet 00:00: in [place] [address] [facility] bumetanide 0 Yes [id number] Take 2tabs [facility] 0.5 mg 9-21 in AM 1tab ity of tablet 00:00: in [place] [address] [facility] bumetanide 0 Yes [id number] Take 2tabs [facility] 0.5 mg 9-21 in AM 1tab ity of tablet 00:00: in [place] [address] [facility] bumetanide 0 Yes [id number] Take 2tabs [facility] 0.5 mg 9-21 in AM 1tab ity of tablet 00:00: in [facility] bumetanide 0 Yes [id number] Take 2tabs [facility] 0.5 mg 9-21 in AM 1tab ity of tablet 00:00: in [place] [address] [facility] bumetanide 0 Yes [id number] Take 2tabs [facility] 0.5 mg 9-21 in AM 1tab it[facility] of tablet 00:00: in [place] [address] [facility] bumetanide 0 Yes [id number] Take 2tabs [facility] 0.5 mg 9-21 in AM 1tab ity of tablet 00:00: in [facility] bumetanide Yes [id number] Take 2tabs [facility] 0.5 mg 9-21 in AM 1tab ity of tablet 00:00: in [place] [address] [facility] bumetanide 0 Yes [id number] Take 2tabs [facility] 0.5 mg 9-21 in AM 1tab it[facility] of tablet 00:00: in [place] [address] [facility] bumetanide 0 Yes [id number] Take 2tabs [facility] 0.5 mg 9-21 in AM 1tab ity of tablet 00:00: in [place] [address] [facility] bumetanide 0 Yes [id number] Take 2tabs [facility] 0.5 mg 9-21 in AM 1tab ity of tablet 00:00: in [place] [address] [facility] bumetanide 0 Yes [id number] Take 2tabs [facility] 0.5 mg 9-21 in AM 1tab it[facility] of tablet 00:00: in [place] [address] [facility] bumetanide 0 Yes [id number] Take 2tabs [facility] 0.5 mg 9-21 in AM 1tab ity of tablet 00:00: in [place] [address] [facility] bumetanide 0 Yes [id number] Take 2tabs [facility] 0.5 mg 9-21 in AM 1tab it[facility] of tablet 00:00: in [place] [address] [facility] bumetanide 0 Yes [id number] Take 2tabs [facility] 0.5 mg 9-21 in AM 1tab ity of tablet 00:00: in [place] [address] [facility] bumetanide 0 Yes [id number] Take 2tabs [facility] 0.5 mg 9-21 in AM 1tab it[facility] of tablet 00:00: in [place] [address] [facility] bumetanide 0 Yes [id number] Take 2tabs [facility] 0.5 mg 9-21 in AM 1tab ity of tablet 00:00: in [facility] bumetanide 0 Yes [id number] Take 2tabs [facility] 0.5 mg 9-21 in AM 1tab ity of tablet 00:00: in [place] [address] [facility] bumetanide 0 Yes [id number] Take 2tabs [facility] 0.5 mg 9-21 in AM 1tab ity of tablet 00:00: in [place] [address] [facility] bumetanide 0 Yes [id number] Take 2tabs [facility] 0.5 mg 9-21 in AM 1tab ity of tablet 00:00: in [place] [address] [facility] bumetanide 0 Yes [id number] Take 2tabs [facility] 0.5 mg 9-21 in AM 1tab ity of tablet 00:00: in [place] [address] [facility] bumetanide 0 Yes [id number] Take 2tabs [facility] 0.5 mg 9-21 in AM 1tab it[facility] of tablet 00:00: in [place] [address] [facility] bumetanide 0 Yes [id number] Take 2tabs [facility] 0.5 mg 9-21 in AM 1tab ity of tablet 00:00: in [place] [address] [facility] bumetanide 0 Yes [id number] Take 2tabs [facility] 0.5 mg 9-21 in AM 1tab [facility] of tablet 00:00: in [place] [address] [facility] bumetanide 0 Yes [id number] Take 2tabs [facility] 0.5 mg 9-21 in AM 1tab ity of tablet 00:00: in [place] [address] [facility] bumetanide 0 Yes [id number] Take 2tabs [facility] 0.5 mg 9-21 in AM 1tab ity of tablet 00:00: in PM [place] 00 [facility] bumetanide 2021-0 Yes [id number] Take 2tabs [facility] 0.5 mg 9-21 in AM 1tab ity of tablet 00:00: in PM [place] [facility] bumetanide 2021-0 Yes [id number] Take 2tabs [facility] 0.5 mg 9-21 in AM 1tab ity of tablet 00:00: in PM [place] [facility] bumetanide 2021-0 Yes [id number] Take 2tabs [facility] 0.5 mg 9-21 in AM 1tab ity of tablet 00:00: in PM [place] 00 [facility] bumetanide 2021-0 3- No [id number] Take 2tabs [facility] 0.5 mg 9-21 01-10 in AM 1tab ity of tablet 00:00: 00:00 in [facility] 00 :00 [facility] Branch cranberry Yes 1{tbl} Take 1 [facility] ers conc-C-baci 9-12 tablet by ity of llus coag 13:05: mouth [place] 250-30-50 53 daily. Medical mg-mg-marilyn Branch on Tab alpha Yes 200mg Take 200 [facility] lipoic acid 9-12 mg by ity of 200 mg 13:05: mouth [place] capsule 53 daily. [facility] cranberry Yes 1{tbl} Take 1 [facility] ers conc-C-baci 9-12 tablet by ity of llus coag 13:05: mouth [place] 250-30-50 53 daily. Medical mg-mg-marily[facility] Branch on Tab alpha Yes 200mg Take 200 [facility] lipoic acid 9-12 mg by ity of 200 mg 13:05: mouth [place] capsule 53 daily. [facility] cranberry Yes 1{tbl} Take 1 [facility] ers conc-C-baci 9-12 tablet by ity of llus coag 13:05: mouth [place] 250-30-50 53 daily. Medical mg-mg-marilyn [facility] on Tab alpha 0 Yes 200mg Take 200 [facility] lipoic acid 9-12 mg by ity of 200 mg 13:05: mouth [place] capsule 53 daily. [facility] cranberry Yes 1{tbl} Take 1 [facility] ers conc-C-baci 9-12 tablet by ity of llus coag 13:05: mouth [place] 250-30-50 53 daily. [facility] mg-mg-marily[facility] on Tab alpha 0 Yes 200mg Take 200 [facility] lipoic acid 9-12 mg by ity of 200 mg 13:05: mouth [place] capsule 53 daily. [facility] cranberry 0 Yes 1{tbl} Take 1 [facility] ers conc-C-baci 9-12 tablet by ity of llus coag 13:05: mouth [place] 250-30-50 53 daily. [facility] mg-mg-[facility] on Tab alpha 0 Yes 200mg Take 200 [facility] lipoic acid 9-12 mg by ity of 200 mg 13:05: mouth [place] capsule 53 daily. [facility] cranberry 0 Yes 1{tbl} Take 1 [facility] ers conc-C-baci 9-12 tablet by ity of llus coag 13:05: mouth [place] 250-30-50 53 daily. Medical mg-mg-m[facility] on Tab alpha 0 Yes 200mg Take 200 [facility] lipoic acid 9-12 mg by ity of 200 mg 13:05: mouth [place] capsule 53 daily. [facility] cranberry Yes 1{tbl} Take 1 [facility] ers conc-C-baci 9-12 tablet by ity of llus coag 13:05: mouth [place] 250-30-50 53 daily. [facility] mg-mg-marily[facility] on Tab alpha 0 Yes 200mg Take 200 [facility] lipoic acid 9-12 mg by ity of 200 mg 13:05: mouth [place] capsule 53 daily. [facility] cranberry Yes 1{tbl} Take 1 [facility] ers conc-C-baci 9-12 tablet by ity of llus coag 13:05: mouth [place] 250-30-50 53 daily. [facility] mg-mg-marily[facility] on Tab alpha 0 Yes 200mg Take 200 [facility] lipoic acid 9-12 mg by ity of 200 mg 13:05: mouth [place] capsule 53 daily. [facility] cranberry 0 Yes 1{tbl} Take 1 [facility] ers conc-C-baci 9-12 tablet by ity of llus coag 13:05: mouth [place] 250-30-50 53 daily. [facility] mg-mg-marily[facility] on Tab alpha 0 Yes 200mg Take 200 [facility] lipoic acid 9-12 mg by ity of 200 mg 13:05: mouth [place] capsule 53 daily. [facility] cranberry Yes 1{tbl} Take 1 [facility] ers conc-C-baci 9-12 tablet by ity of llus coag 13:05: mouth [place] 250-30-50 53 daily. [facility] mg-mg-m[facility] on Tab alpha 0 Yes 200mg Take 200 [facility] lipoic acid 9-12 mg by ity of 200 mg 13:05: mouth [place] capsule 53 daily. [facility] cranberry Yes 1{tbl} Take 1 [facility] ers conc-C-baci 9-12 tablet by ity of llus coag 13:05: mouth [place] 250-30-50 53 daily. [facility] mg-mg-[facility] on Tab alpha Yes 200mg Take 200 [facility] lipoic acid 9-12 mg by ity of 200 mg 13:05: mouth [place] capsule 53 daily. [facility] cranberry Yes 1{tbl} Take 1 [facility] ers conc-C-baci 9-12 tablet by ity of llus coag 13:05: mouth [place] 250-30-50 53 daily. [facility] mg-mg-m[facility] on Tab alpha Yes 200mg Take 200 [facility] lipoic acid 9-12 mg by ity of 200 mg 13:05: mouth [place] capsule 53 daily. [facility] cranberry Yes 1{tbl} Take 1 [facility] ers conc-C-baci 9-12 tablet by ity of llus coag 13:05: mouth [place] 250-30-50 53 daily. Medical mg-mg-marily[facility] on Tab alpha 0 Yes 200mg Take 200 [facility] lipoic acid 9-12 mg by ity of 200 mg 13:05: mouth [place] capsule 53 daily. [facility] cranberry Yes 1{tbl} Take 1 [facility] ers conc-C-baci 9-12 tablet by ity of llus coag 13:05: mouth [place] 250-30-50 53 daily. [facility] mg-mg-m[facility] on Tab alpha 0 Yes 200mg Take 200 [facility] lipoic acid 9-12 mg by ity of 200 mg 13:05: mouth [place] capsule 53 daily. [facility] cranberry Yes 1{tbl} Take 1 [facility] ers conc-C-baci 9-12 tablet by ity of llus coag 13:05: mouth [place] 250-30-50 53 daily. [facility] mg-mg-marily[facility] on Tab alpha 0 Yes 200mg Take 200 [facility] lipoic acid 9-12 mg by ity of 200 mg 13:05: mouth [place] capsule 53 daily. [facility] cranberry Yes 1{tbl} Take 1 [facility] ers conc-C-baci 9-12 tablet by ity of llus coag 13:05: mouth [place] 250-30-50 53 daily. Medical mg-mg-mariyln Branch on Tab alpha 0 Yes 200mg Take 200 [facility] lipoic acid 9-12 mg by ity of 200 mg 13:05: mouth [place] capsule 53 daily. [facility] cranberry Yes 1{tbl} Take 1 [facility] ers conc-C-baci 9-12 tablet by ity of llus coag 13:05: mouth [place] 250-30-50 53 daily. [facility] mg-mg-[facility] on Tab alpha 0 Yes 200mg Take 200 [facility] lipoic acid 9-12 mg by ity of 200 mg 13:05: mouth [place] capsule 53 daily. [facility] cranberry Yes 1{tbl} Take 1 [facility] ers conc-C-baci 9-12 tablet by ity of llus coag 13:05: mouth [place] 250-30-50 53 daily. [facility] mg-mg-m[facility] on Tab alpha 0 Yes 200mg Take 200 [facility] lipoic acid 9-12 mg by ity of 200 mg 13:05: mouth [place] capsule 53 daily. [facility] cranberry Yes 1{tbl} Take 1 [facility] ers conc-C-baci 9-12 tablet by ity of llus coag 13:05: mouth [place] 250-30-50 53 daily. Medical mg-mg-mairlyn Branch on Tab alpha 0 Yes 200mg Take 200 [facility] lipoic acid 9-12 mg by ity of 200 mg 13:05: mouth [place] capsule 53 daily. [facility] cranberry Yes 1{tbl} Take 1 [facility] ers conc-C-baci 9-12 tablet by ity of llus coag 13:05: mouth [place] 250-30-50 53 daily. Medical mg-mg-m[facility] Branch on Tab alpha 0 Yes 200mg Take 200 [facility] lipoic acid 9-12 mg by ity of 200 mg 13:05: mouth [place] capsule 53 daily. [facility] cranberry Yes 1{tbl} Take 1 [facility] ers conc-C-baci 9-12 tablet by ity of llus coag 13:05: mouth [place] 250-30-50 53 daily. Medical mg-mg-marily[facility] on Tab alpha 0 Yes 200mg Take 200 [facility] lipoic acid 9-12 mg by ity of 200 mg 13:05: mouth [place] capsule 53 daily. [facility] cranberry Yes 1{tbl} Take 1 [facility] ers conc-C-baci 9-12 tablet by ity of llus coag 13:05: mouth [place] 250-30-50 53 daily. Medical mg-mg-m[facility] on Tab alpha 0 Yes 200mg Take 200 [facility] lipoic acid 9-12 mg by ity of 200 mg 13:05: mouth [place] capsule 53 daily. [facility] cranberry Yes 1{tbl} Take 1 [facility] ers conc-C-baci 9-12 tablet by ity of llus coag 13:05: mouth [place] 250-30-50 53 daily. Medical mg-mg-m[facility] Branch on Tab alpha 0 Yes 200mg Take 200 [facility] lipoic acid 9-12 mg by ity of 200 mg 13:05: mouth [place] capsule 53 daily. [facility] cranberry Yes 1{tbl} Take 1 [facility] ers conc-C-baci 9-12 tablet by ity of llus coag 13:05: mouth [place] 250-30-50 53 daily. Medical mg-mg-m[facility] on Tab alpha 0 Yes 200mg Take 200 [facility] lipoic acid 9-12 mg by ity of 200 mg 13:05: mouth [place] capsule 53 daily. [facility] cranberry Yes 1{tbl} Take 1 [facility] ers conc-C-baci 9-12 tablet by ity of llus coag 13:05: mouth [place] 250-30-50 53 daily. Medical mg-mg-m[facility] Branch on Tab alpha 0 Yes 200mg Take 200 [facility] lipoic acid 9-12 mg by ity of 200 mg 13:05: mouth [place] capsule 53 daily. [facility] cranberry Yes 1{tbl} Take 1 [facility] ers conc-C-baci 9-12 tablet by ity of llus coag 13:05: mouth [place] 250-30-50 53 daily. Medical mg-mg-marilyn Branch on Tab alpha 0 Yes 200mg Take 200 [facility] lipoic acid 9-12 mg by ity of 200 mg 13:05: mouth [place] capsule 53 daily. [facility] cranberry Yes 1{tbl} Take 1 [facility] ers conc-C-baci 9-12 tablet by ity of llus coag 13:05: mouth [place] 250-30-50 53 daily. Medical mg-mg-marilyn Branch on Tab alpha Yes 200mg Take 200 [facility] lipoic acid 9-12 mg by ity of 200 mg 13:05: mouth [place] capsule 53 daily. [facility] cranberry Yes 1{tbl} Take 1 [facility] ers conc-C-baci 9-12 tablet by ity of llus coag 13:05: mouth [place] 250-30-50 53 daily. Medical mg-mg-marily[facility] Branch on Tab alpha Yes 200mg Take 200 [facility] lipoic acid 9-12 mg by ity of 200 mg 13:05: mouth [place] capsule 53 daily. [facility] cranberry Yes 1{tbl} Take 1 [facility] ers conc-C-baci 9-12 tablet by ity of llus coag 13:05: mouth [place] 250-30-50 53 daily. Medical mg-mg-marilyn Branch on Tab alpha 0 Yes 200mg Take 200 [facility] lipoic acid 9-12 mg by ity of 200 mg 13:05: mouth [place] capsule 53 daily. [facility] cranberry Yes 1{tbl} Take 1 [facility] ers conc-C-baci 9-12 tablet by ity of llus coag 13:05: mouth [place] 250-30-50 53 daily. Medical mg-mg-marilyn Branch on Tab alpha 0 Yes 200mg Take 200 [facility] lipoic acid 9-12 mg by ity of 200 mg 13:05: mouth [place] capsule 53 daily. [facility] cranberry Yes 1{tbl} Take 1 [facility] ers conc-C-baci 9-12 tablet by ity of llus coag 13:05: mouth [place] 250-30-50 53 daily. Medical mg-mg-marilyn Branch on Tab alpha 0 Yes 200mg Take 200 [facility] lipoic acid 9-12 mg by ity of 200 mg 13:05: mouth [place] capsule 53 daily. [facility] cranberry Yes 1{tbl} Take 1 [facility] ers conc-C-baci 9-12 tablet by ity of llus coag 13:05: mouth [place] 250-30-50 53 daily. Medical mg-mg-marilyn Branch on Tab alpha 0 Yes 200mg Take 200 [facility] lipoic acid 9-12 mg by ity of 200 mg 13:05: mouth [place] capsule 53 daily. [facility] cranberry Yes 1{tbl} Take 1 [facility] ers conc-C-baci 9-12 tablet by ity of llus coag 13:05: mouth [place] 250-30-50 53 daily. Medical mg-mg-marilyn Branch on Tab alpha 0 Yes 200mg Take 200 [facility] lipoic acid 9-12 mg by ity of 200 mg 13:05: mouth [place] capsule 53 daily. [facility] cranberry Yes 1{tbl} Take 1 [facility] ers conc-C-baci 9-12 tablet by ity of llus coag 13:05: mouth [place] 250-30-50 53 daily. Medical mg-mg-marilyn Branch on Tab alpha 0 Yes 200mg Take 200 [facility] lipoic acid 9-12 mg by ity of 200 mg 13:05: mouth [place] capsule 53 daily. [facility] cranberry Yes 1{tbl} Take 1 [facility] ers conc-C-baci 9-12 tablet by ity of llus coag 13:05: mouth [place] 250-30-50 53 daily. Medical mg-mg-marilyn Branch on Tab alpha 0 Yes 200mg Take 200 [facility] lipoic acid 9-12 mg by ity of 200 mg 13:05: mouth [place] capsule 53 daily. [facility] cranberry Yes 1{tbl} Take 1 [facility] ers conc-C-baci 9-12 tablet by ity of llus coag 13:05: mouth [place] 250-30-50 53 daily. Medical mg-mg-marilyn Branch on Tab alpha 0 Yes 200mg Take 200 [facility] lipoic acid 9-12 mg by ity of 200 mg 13:05: mouth [place] capsule 53 daily. [facility] cranberry Yes 1{tbl} Take 1 [facility] ers conc-C-baci 9-12 tablet by ity of llus coag 13:05: mouth [place] 250-30-50 53 daily. Medical mg-mg-marilyn Branch on Tab alpha 0 Yes 200mg Take 200 [facility] lipoic acid 9-12 mg by ity of 200 mg 13:05: mouth [place] capsule 53 daily. [facility] cranberry Yes 1{tbl} Take 1 [facility] ers conc-C-baci 9-12 tablet by ity of llus coag 13:05: mouth [place] 250-30-50 53 daily. Medical mg-mg-marilyn Branch on Tab alpha Yes 200mg Take 200 [facility] lipoic acid 9-12 mg by ity of 200 mg 13:05: mouth [place] capsule 53 daily. [facility] cranberry Yes 1{tbl} Take 1 [facility] ers conc-C-baci 9-12 tablet by ity of llus coag 13:05: mouth [place] 250-30-50 53 daily. Medical mg-mg-marilyn Branch on Tab alpha 0 Yes 200mg Take 200 [facility] lipoic acid 9-12 mg by ity of 200 mg 13:05: mouth [place] capsule 53 daily. [facility] cranberry Yes 1{tbl} Take 1 [facility] ers conc-C-baci 9-12 tablet by ity of llus coag 13:05: mouth [place] 250-30-50 53 daily. Medical mg-mg-marilyn Branch on Tab alpha 0 Yes 200mg Take 200 [facility] lipoic acid 9-12 mg by ity of 200 mg 13:05: mouth [place] capsule 53 daily. [facility] cranberry Yes 1{tbl} Take 1 [facility] ers conc-C-baci 9-12 tablet by ity of llus coag 13:05: mouth [place] 250-30-50 53 daily. Medical mg-mg-marilyn Branch on Tab alpha 0 Yes 200mg Take 200 [facility] lipoic acid 9-12 mg by ity of 200 mg 13:05: mouth [place] capsule 53 daily. [facility] cranberry Yes 1{tbl} Take 1 [facility] ers conc-C-baci 9-12 tablet by ity of llus coag 13:05: mouth [place] 250-30-50 53 daily. Medical mg-mg-m[facility] Branch on Tab alpha 0 Yes 200mg Take 200 [facility] lipoic acid 9-12 mg by ity of 200 mg 13:05: mouth [place] capsule 53 daily. [facility] cranberry Yes 1{tbl} Take 1 [facility] ers conc-C-baci 9-12 tablet by ity of llus coag 13:05: mouth [place] 250-30-50 53 daily. Medical mg-mg-marilyn Branch on Tab alpha Yes 200mg Take 200 [facility] lipoic acid 9-12 mg by ity of 200 mg 13:05: mouth [place] capsule 53 daily. [facility] cranberry Yes 1{tbl} Take 1 [facility] ers conc-C-baci 9-12 tablet by ity of llus coag 13:05: mouth [place] 250-30-50 53 daily. Medical mg-mg-m[facility] Branch on Tab alpha 0 Yes 200mg Take 200 [facility] lipoic acid 9-12 mg by ity of 200 mg 13:05: mouth [place] capsule 53 daily. [facility] cranberry Yes 1{tbl} Take 1 [facility] ers conc-C-baci 9-12 tablet by ity of llus coag 13:05: mouth [place] 250-30-50 53 daily. Medical mg-mg-marilyn Branch on Tab alpha 0 Yes 200mg Take 200 [facility] lipoic acid 9-12 mg by ity of 200 mg 13:05: mouth [place] capsule 53 daily. [facility] cranberry Yes 1{tbl} Take 1 [facility] ers conc-C-baci 9-12 tablet by ity of llus coag 13:05: mouth [place] 250-30-50 53 daily. [facility] mg-mg-m[facility] Branch on Tab alpha 0 Yes 200mg Take 200 [facility] lipoic acid 9-12 mg by ity of 200 mg 13:05: mouth [place] capsule 53 daily. [facility] cranberry Yes 1{tbl} Take 1 [facility] ers conc-C-baci 9-12 tablet by ity of llus coag 13:05: mouth [place] 250-30-50 53 daily. [facility] mg-mg-marily[facility] Branch on Tab alpha 0 Yes 200mg Take 200 [facility] lipoic acid 9-12 mg by ity of 200 mg 13:05: mouth [place] capsule 53 daily. [facility] cranberry Yes 1{tbl} Take 1 [facility] ers conc-C-baci 9-12 tablet by ity of llus coag 13:05: mouth [place] 250-30-50 53 daily. [facility] mg-mg-m[facility] on Tab alpha 0 Yes 200mg Take 200 [facility] lipoic acid 9-12 mg by ity of 200 mg 13:05: mouth [place] capsule 53 daily. [facility] cranberry Yes 1{tbl} Take 1 [facility] ers conc-C-baci 9-12 tablet by ity of llus coag 13:05: mouth [place] 250-30-50 53 daily. [facility] mg-mg-m[facility] on Tab alpha 0 Yes 200mg Take 200 [facility] lipoic acid 9-12 mg by ity of 200 mg 13:05: mouth [place] capsule 53 daily. [facility] cranberry Yes 1{tbl} Take 1 [facility] ers conc-C-baci 9-12 tablet by ity of llus coag 13:05: mouth [place] 250-30-50 53 daily. [facility] mg-mg-[facility] on Tab alpha 0 Yes 200mg Take 200 [facility] lipoic acid 9-12 mg by ity of 200 mg 13:05: mouth [place] capsule 53 daily. [facility] cranberry Yes 1{tbl} Take 1 [facility] ers conc-C-baci 9-12 tablet by ity of llus coag 13:05: mouth [place] 250-30-50 53 daily. [facility] mg-mg-[facility] on Tab cranberry 0 Yes 1{tbl} Take 1 [facility] ers conc-C-baci 9-12 tablet by ity of llus coag 13:05: mouth [place] 250-30-50 53 daily. [facility] mg-mg-[facility] on Tab cranberry Yes 1{tbl} Take 1 [facility] ers conc-C-baci 9-12 tablet by ity of llus coag 13:05: mouth [place] 250-30-50 53 daily. [facility] mg-mg-[facility] on Tab cranberry Yes 1{tbl} Take 1 [facility] ers conc-C-baci 9-12 tablet by ity of llus coag 13:05: mouth [place] 250-30-50 53 daily. [facility] mg-mg-[facility] on Tab cranberry Yes 1{tbl} Take 1 [facility] ers conc-C-baci 9-12 tablet by ity of llus coag 13:05: mouth [place] 250-30-50 53 daily. [facility] mg-mg-[facility] on Tab cranberry Yes 1{tbl} Take 1 [facility] ers conc-C-baci 9-12 tablet by ity of llus coag 13:05: mouth [place] 250-30-50 53 daily. [facility] mg-mg-[facility] on Tab cranberry Yes 1{tbl} Take 1 [facility] ers conc-C-baci 9-12 tablet by ity of llus coag 13:05: mouth [place] 250-30-50 53 daily. [facility] mg-mg-[facility] on Tab cranberry Yes 1{tbl} Take 1 [facility] ers conc-C-baci 9-12 tablet by ity of llus coag 13:05: mouth [place] 250-30-50 53 daily. [facility] mg-mg-[facility] on Tab cranberry Yes 1{tbl} Take 1 [facility] ers conc-C-baci 9-12 tablet by ity of llus coag 13:05: mouth [place] 250-30-50 53 daily. [facility] mg-mg-[facility] on Tab cranberry Yes 1{tbl} Take 1 [facility] conc-C-baci 9-12 tablet by ity of llus coag 13:05: mouth [place] 250-30-50 53 daily. [facility] mg-mg-[facility] on Tab cranberry Yes 1{tbl} Take 1 [facility] ers conc-C-baci 9-12 tablet by ity of llus coag 13:05: mouth [place] 250-30-50 53 daily. [facility] mg-mg-[facility] on Tab cranberry 0 Yes 1{tbl} Take 1 [facility] conc-C-baci 9-12 tablet by ity of llus coag 13:05: mouth [place] 250-30-50 53 daily. [facility] mg-mg-[facility] on Tab cranberry 0 Yes 1{tbl} Take 1 [facility] conc-C-baci 9-12 tablet by ity of llus coag 13:05: mouth [place] 250-30-50 53 daily. [facility] mg-mg-[facility] on Tab cranberry Yes 1{tbl} Take 1 [facility] conc-C-baci 9-12 tablet by ity of llus coag 13:05: mouth [place] 250-30-50 53 daily. [facility] mg-mg-[facility] on Tab cranberry Yes 1{tbl} Take 1 [facility] conc-C-baci 9-12 tablet by ity of llus coag 13:05: mouth [place] 250-30-50 53 daily. [facility] mg-mg-[facility] on Tab cranberry Yes 1{tbl} Take 1 [facility] conc-C-baci 9-12 tablet by ity of llus coag 13:05: mouth [place] 250-30-50 53 daily. [facility] mg-mg-[facility] on Tab cranberry Yes 1{tbl} Take 1 [facility] conc-C-baci 9-12 tablet by ity of llus coag 13:05: mouth [place] 250-30-50 53 daily. [facility] mg-mg-[facility] on Tab cranberry 0 Yes 1{tbl} Take 1 [facility] conc-C-baci 9-12 tablet by ity of llus coag 13:05: mouth [place] 250-30-50 53 daily. [facility] mg-mg-[facility] on Tab cranberry 0 Yes 1{tbl} Take 1 [facility] conc-C-baci 9-12 tablet by ity of llus coag 13:05: mouth [place] 250-30-50 53 daily. [facility] mg-mg-[facility] on Tab cranberry Yes 1{tbl} Take 1 [facility] conc-C-baci 9-12 tablet by ity of llus coag 13:05: mouth [place] 250-30-50 53 daily. [facility] mg-mg-[facility] on Tab cranberry Yes 1{tbl} Take 1 [facility] conc-C-baci 9-12 tablet by ity of llus coag 13:05: mouth [place] 250-30-50 53 daily. [facility] mg-mg-[facility] on Tab cranberry Yes 1{tbl} Take 1 [facility] conc-C-baci 9-12 tablet by ity of llus coag 13:05: mouth [place] 250-30-50 53 daily. [facility] mg-mg-[facility] on Tab cranberry Yes 1{tbl} Take 1 [facility] conc-C-baci 9-12 tablet by ity of llus coag 13:05: mouth [place] 250-30-50 53 daily. [facility] mg-mg-[facility] on Tab cranberry Yes 1{tbl} Take 1 [facility] conc-C-baci 9-12 tablet by ity of llus coag 13:05: mouth [place] 250-30-50 53 daily. [facility] mg-mg-[facility] on Tab cranberry Yes 1{tbl} Take 1 [facility] conc-C-baci 9-12 tablet by ity of llus coag 13:05: mouth [place] 250-30-50 53 daily. [facility] mg-mg-[facility] on Tab cranberry Yes 1{tbl} Take 1 [facility] conc-C-baci 9-12 tablet by ity of llus coag 13:05: mouth [place] 250-30-50 53 daily. [facility] mg-mg-[facility] on Tab cranberry Yes 1{tbl} Take 1 [facility] conc-C-baci 9-12 tablet by ity of llus coag 13:05: mouth [place] 250-30-50 53 daily. [facility] mg-mg-[facility] on Tab alpha Yes 200mg Take 200 [facility] lipoic acid 9-12 mg by ity of 200 mg 13:05: mouth [place] capsule 53 daily. [facility] cranberry Yes 1{tbl} Take 1 [facility] conc-C-baci 9-12 tablet by ity of llus coag 13:05: mouth [place] 250-30-50 53 daily. [facility] mg-mg-[facility] on Tab alpha 0 Yes 200mg Take 200 [facility] lipoic acid 9-12 mg by ity of 200 mg 13:05: mouth [place] capsule 53 daily. [facility] cranberry Yes 1{tbl} Take 1 [facility] conc-C-baci 9-12 tablet by ity of llus coag 13:05: mouth [place] 250-30-50 53 daily. [facility] mg-mg-[facility] on Tab alpha Yes 200mg Take 200 [facility] lipoic acid 9-12 mg by ity of 200 mg 13:05: mouth [place] capsule 53 daily. [facility] cranberry Yes 1{tbl} Take 1 [facility] conc-C-baci 9-12 tablet by ity of llus coag 13:05: mouth [place] 250-30-50 53 daily. [facility] mg-mg-[facility] on Tab alpha Yes 200mg Take 200 [facility] lipoic acid 9-12 mg by ity of 200 mg 13:05: mouth [place] capsule 53 daily. [facility] cranberry Yes 1{tbl} Take 1 [facility] conc-C-baci 9-12 tablet by ity of llus coag 13:05: mouth [place] 250-30-50 53 daily. [facility] mg-mg-[facility] on Tab alpha 0 Yes 200mg Take 200 [facility] lipoic acid 9-12 mg by ity of 200 mg 13:05: mouth [place] capsule 53 daily. [facility] cranberry Yes 1{tbl} Take 1 [facility] conc-C-baci 9-12 tablet by ity of llus coag 13:05: mouth [place] 250-30-50 53 daily. [facility] mg-mg-[facility] on Tab alpha 0 Yes 200mg Take 200 [facility] lipoic acid 9-12 mg by ity of 200 mg 13:05: mouth [place] capsule 53 daily. [facility] cranberry Yes 1{tbl} Take 1 [facility] conc-C-baci 9-12 tablet by ity of llus coag 13:05: mouth [place] 250-30-50 53 daily. [facility] mg-mg-[facility] on Tab alpha 0 Yes 200mg Take 200 [facility] lipoic acid 9-12 mg by ity of 200 mg 13:05: mouth [place] capsule 53 daily. [facility] cranberry Yes 1{tbl} Take 1 [facility] conc-C-baci 9-12 tablet by ity of llus coag 13:05: mouth [place] 250-30-50 53 daily. [facility] mg[facility]mg-[facility] on Tab alpha 0 Yes 200mg Take 200 [facility] lipoic acid 9-12 mg by ity of 200 mg 13:05: mouth [place] capsule 53 daily. [facility] cranberry Yes 1{tbl} Take 1 [facility] conc-C-baci 9-12 tablet by ity of llus coag 13:05: mouth [place] 250-30-50 53 daily. [facility] mg-mg-[facility] on Tab alpha Yes 200mg Take 200 [facility] lipoic acid 9-12 mg by ity of 200 mg 13:05: mouth [place] capsule 53 daily. [facility] cranberry Yes 1{tbl} Take 1 [facility] conc-C-baci 9-12 tablet by ity of llus coag 13:05: mouth [place] 250-30-50 53 daily. [facility] mg-mg-[facility] on Tab alpha 0 Yes 200mg Take 200 [facility] lipoic acid 9-12 mg by ity of 200 mg 13:05: mouth [place] capsule 53 daily. [facility] cranberry Yes 1{tbl} Take 1 [facility] ers conc-C-baci 9-12 tablet by ity of llus coag 13:05: mouth [place] 250-30-50 53 daily. Medical mg-mg-marilyn Branch on Tab alpha 0 Yes 200mg Take 200 [facility] lipoic acid 9-12 mg by ity of 200 mg 13:05: mouth [place] capsule 53 daily. [facility] cranberry Yes 1{tbl} Take 1 [facility] ers conc-C-baci 9-12 tablet by ity of llus coag 13:05: mouth [place] 250-30-50 53 daily. Medical mg-mg-marilyn Branch on Tab alpha Yes 200mg Take 200 [facility] lipoic acid 9-12 mg by ity of 200 mg 13:05: mouth [place] capsule 53 daily. [facility] cranberry Yes 1{tbl} Take 1 [facility] ers conc-C-baci 9-12 tablet by ity of llus coag 13:05: mouth [place] 250-30-50 53 daily. Medical mg-mg-marilyn Branch on Tab alpha 0 Yes 200mg Take 200 [facility] lipoic acid 9-12 mg by ity of 200 mg 13:05: mouth [place] capsule 53 daily. [facility] cranberry Yes 1{tbl} Take 1 [facility] ers conc-C-baci 9-12 tablet by ity of llus coag 13:05: mouth [place] 250-30-50 53 daily. Medical mg-mg-marilyn Branch on Tab alpha Yes 200mg Take 200 [facility] lipoic acid 9-12 mg by ity of 200 mg 13:05: mouth [place] capsule 53 daily. [facility] cranberry Yes 1{tbl} Take 1 [facility] ers conc-C-baci 9-12 tablet by ity of llus coag 13:05: mouth [place] 250-30-50 53 daily. Medical mg-mg-marilyn Branch on Tab alpha Yes 200mg Take 200 [facility] lipoic acid 9-12 mg by ity of 200 mg 13:05: mouth [place] capsule 53 daily. [facility] cranberry Yes 1{tbl} Take 1 [facility] ers conc-C-baci 9-12 tablet by ity of llus coag 13:05: mouth [place] 250-30-50 53 daily. Medical mg-mg-marilyn Branch on Tab alpha Yes 200mg Take 200 [facility] lipoic acid 9-12 mg by ity of 200 mg 13:05: mouth [place] capsule 53 daily. [facility] cranberry Yes 1{tbl} Take 1 [facility] ers conc-C-baci 9-12 tablet by ity of llus coag 13:05: mouth [place] 250-30-50 53 daily. Medical mg-mg-marilyn Branch on Tab alpha 0 Yes 200mg Take 200 [facility] lipoic acid 9-12 mg by ity of 200 mg 13:05: mouth [place] capsule 53 daily. [facility] cranberry Yes 1{tbl} Take 1 [facility] ers conc-C-baci 9-12 tablet by ity of llus coag 13:05: mouth [place] 250-30-50 53 daily. Medical mg-mg-marilyn Branch on Tab alpha 0 Yes 200mg Take 200 [facility] lipoic acid 9-12 mg by ity of 200 mg 13:05: mouth [place] capsule 53 daily. [facility] cranberry Yes 1{tbl} Take 1 [facility] ers conc-C-baci 9-12 tablet by ity of llus coag 13:05: mouth [place] 250-30-50 53 daily. Medical mg-mg-marilyn Branch on Tab alpha Yes 200mg Take 200 [facility] lipoic acid 9-12 mg by ity of 200 mg 13:05: mouth [place] capsule 53 daily. [facility] cranberry Yes 1{tbl} Take 1 [facility] ers conc-C-baci 9-12 tablet by ity of llus coag 13:05: mouth [place] 250-30-50 53 daily. Medical mg-mg-marilyn Branch on Tab alpha Yes 200mg Take 200 [facility] lipoic acid 9-12 mg by ity of 200 mg 13:05: mouth [place] capsule 53 daily. [facility] cranberry Yes 1{tbl} Take 1 [facility] ers conc-C-baci 9-12 tablet by ity of llus coag 13:05: mouth [place] 250-30-50 53 daily. Medical mg-mg-marilyn Branch on Tab alpha Yes 200mg Take 200 [facility] lipoic acid 9-12 mg by ity of 200 mg 13:05: mouth [place] capsule 53 daily. [facility] cranberry Yes 1{tbl} Take 1 [facility] ers conc-C-baci 9-12 tablet by ity of llus coag 13:05: mouth [place] 250-30-50 53 daily. Medical mg-mg-marilyn Branch on Tab alpha 0 Yes 200mg Take 200 [facility] lipoic acid 9-12 mg by ity of 200 mg 13:05: mouth [place] capsule 53 daily. [facility] cranberry Yes 1{tbl} Take 1 [facility] conc-C-baci 9-12 tablet by ity of llus coag 13:05: mouth [place] 250-30-50 53 daily. Medical mg-mg-marilyn Branch on Tab alpha 0 Yes 200mg Take 200 [facility] lipoic acid 9-12 mg by ity of 200 mg 13:05: mouth [place] capsule 53 daily. [facility] cranberry Yes 1{tbl} Take 1 [facility] ers conc-C-baci 9-12 tablet by ity of llus coag 13:05: mouth [place] 250-30-50 53 daily. Medical mg-mg-marilyn Branch on Tab alpha 0 Yes 200mg Take 200 [facility] lipoic acid 9-12 mg by ity of 200 mg 13:05: mouth [place] capsule 53 daily. [facility] cranberry Yes 1{tbl} Take 1 [facility] ers conc-C-baci 9-12 tablet by ity of llus coag 13:05: mouth [place] 250-30-50 53 daily. Medical mg-mg-marilyn Branch on Tab alpha Yes 200mg Take 200 [facility] lipoic acid 9-12 mg by ity of 200 mg 13:05: mouth [place] capsule 53 daily. [facility] cranberry Yes 1{tbl} Take 1 [facility] ers conc-C-baci 9-12 tablet by ity of llus coag 13:05: mouth [place] 250-30-50 53 daily. Medical mg-mg-marilyn Branch on Tab alpha 0 Yes 200mg Take 200 [facility] lipoic acid 9-12 mg by ity of 200 mg 13:05: mouth [place] capsule 53 daily. [facility] cranberry Yes 1{tbl} Take 1 [facility] ers conc-C-baci 9-12 tablet by ity of llus coag 13:05: mouth [place] 250-30-50 53 daily. Medical mg-mg-marilyn Branch on Tab alpha 0 Yes 200mg Take 200 [facility] lipoic acid 9-12 mg by ity of 200 mg 13:05: mouth [place] capsule 53 daily. [facility] cranberry Yes 1{tbl} Take 1 [facility] ers conc-C-baci 9-12 tablet by ity of llus coag 13:05: mouth [place] 250-30-50 53 daily. Medical mg-mg-marilyn Branch on Tab alpha Yes 200mg Take 200 [facility] lipoic acid 9-12 mg by ity of 200 mg 13:05: mouth [place] capsule 53 daily. [facility] cranberry Yes 1{tbl} Take 1 [facility] conc-C-baci 9-12 tablet by ity of llus coag 13:05: mouth [place] 250-30-50 53 daily. Medical mg-mg-marilyn Branch on Tab alpha Yes 200mg Take 200 [facility] lipoic acid 9-12 mg by ity of 200 mg 13:05: mouth [place] capsule 53 daily. [facility] cranberry Yes 1{tbl} Take 1 [facility] conc-C-baci 9-12 tablet by ity of llus coag 13:05: mouth [place] 250-30-50 53 daily. Medical mg-mg-marilyn Branch on Tab alpha Yes 200mg Take 200 [facility] lipoic acid 9-12 mg by ity of 200 mg 13:05: mouth [place] capsule 53 daily. [facility] cranberry Yes 1{tbl} Take 1 [facility] conc-C-baci 9-12 tablet by ity of llus coag 13:05: mouth [place] 250-30-50 53 daily. Medical mg-mg-marilyn Branch on Tab alpha Yes 200mg Take 200 [facility] lipoic acid 9-12 mg by ity of 200 mg 13:05: mouth [place] capsule 53 daily. [facility] cranberry Yes 1{tbl} Take 1 [facility] conc-C-baci 9-12 tablet by ity of llus coag 13:05: mouth [place] 250-30-50 53 daily. Medical mg-mg-marilyn Branch on Tab alpha Yes 200mg Take 200 [facility] lipoic acid 9-12 mg by ity of 200 mg 13:05: mouth [place] capsule 53 daily. [facility] cranberry Yes 1{tbl} Take 1 [facility] ers conc-C-baci 9-12 tablet by ity of llus coag 13:05: mouth [place] 250-30-50 53 daily. Medical mg-mg-marilyn Branch on Tab alpha Yes 200mg Take 200 [facility] lipoic acid 9-12 mg by ity of 200 mg 13:05: mouth [place] capsule 53 daily. [facility] cranberry Yes 1{tbl} Take 1 [facility] ers conc-C-baci 9-12 tablet by ity of llus coag 13:05: mouth [place] 250-30-50 53 daily. Medical mg-mg-marilyn Branch on Tab alpha 0 Yes 200mg Take 200 [facility] lipoic acid 9-12 mg by ity of 200 mg 13:05: mouth [place] capsule 53 daily. [facility] cranberry Yes 1{tbl} Take 1 [facility] conc-C-baci 9-12 tablet by ity of llus coag 13:05: mouth [place] 250-30-50 53 daily. Medical mg-mg-marilyn [facility] on Tab alpha Yes 200mg Take 200 [facility] lipoic acid 9-12 mg by ity of 200 mg 13:05: mouth [place] capsule 53 daily. [facility] cranberry Yes 1{tbl} Take 1 [facility] conc-C-baci 9-12 tablet by ity of llus coag 13:05: mouth [place] 250-30-50 53 daily. Medical mg-mg-marilyn [facility] on Tab alpha 0 Yes 200mg Take 200 [facility] lipoic acid 9-12 mg by ity of 200 mg 13:05: mouth [place] capsule 53 daily. [facility] cranberry Yes 1{tbl} Take 1 [facility] conc-C-baci 9-12 tablet by ity of llus coag 13:05: mouth [place] 250-30-50 53 daily. Medical mg-mg-marilyn [facility] on Tab alpha 0 Yes 200mg Take 200 [facility] lipoic acid 9-12 mg by ity of 200 mg 13:05: mouth [place] capsule 53 daily. [facility] cranberry Yes 1{tbl} Take 1 [facility] conc-C-baci 9-12 tablet by ity of llus coag 13:05: mouth [place] 250-30-50 53 daily. Medical mg-mg-marilyn [facility] on Tab alpha 0 Yes 200mg Take 200 [facility] lipoic acid 9-12 mg by ity of 200 mg 13:05: mouth [place] capsule 53 daily. [facility] cranberry Yes 1{tbl} Take 1 [facility] ers conc-C-baci 9-12 tablet by ity of llus coag 13:05: mouth [place] 250-30-50 53 daily. Medical mg-mg-marilyn Branch on Tab alpha Yes 200mg Take 200 [facility] lipoic acid 9-12 mg by ity of 200 mg 13:05: mouth [place] capsule 53 daily. [facility] cranberry Yes 1{tbl} Take 1 [facility] ers conc-C-baci 9-12 tablet by ity of llus coag 13:05: mouth [place] 250-30-50 53 daily. Medical mg-mg-marilyn [facility] on Tab alpha Yes 200mg Take 200 [facility] lipoic acid 9-12 mg by ity of 200 mg 13:05: mouth [place] capsule 53 daily. [facility] LANTUS Yes [id number] INJECT 53 [facility] god[facility] SOLOSTAR 9-09 UNITS ity of U-100 00:00: SUBCUTANEO [place] INSULIN 100 00 USLY TWICE Me dical unit/mL (3 DAILY Branch mL) injection LANTUS Yes [id number] INJECT 53 [facility] god[facility] SOLOSTAR 9-09 UNITS ity of U-100 00:00: SUBCUTANEO [place] INSULIN 100 00 USLY TWICE Me dical unit/mL (3 DAILY Branch mL) injection LANTUS Yes [id number] INJECT 53 [facility] god[facility] SOLOSTAR 9-09 UNITS ity of U-100 00:00: SUBCUTANEO [place] INSULIN 100 00 USLY TWICE Me dical unit/mL (3 DAILY Branch mL) injection LANTUS Yes [id number] INJECT 53 [facility] god[facility] SOLOSTAR 9-09 UNITS ity of U-100 00:00: SUBCUTANEO [place] INSULIN 100 00 USLY TWICE Me dical unit/mL (3 DAILY Branch mL) injection LANTUS Yes [id number] INJECT 53 [facility] god[facility] SOLOSTAR 9-09 UNITS ity of U-100 00:00: SUBCUTANEO [place] INSULIN 100 00 USLY TWICE Me dical unit/mL (3 DAILY Branch mL) injection LANTUS Yes [id number] INJECT 53 [facility] godfrey SOLOSTAR 9-09 UNITS ity of U-100 00:00: SUBCUTANEO [place] INSULIN 100 00 USLY TWICE Me dical unit/mL (3 DAILY Branch mL) injection LANTUS Yes [id number] INJECT 53 [facility] god[facility] SOLOSTAR 9-09 UNITS ity of U-100 00:00: SUBCUTANEO [place] INSULIN 100 00 USLY TWICE Me dical unit/mL (3 DAILY Branch mL) injection LANTUS Yes [id number] INJECT 53 [facility] god[facility] SOLOSTAR 9-09 UNITS ity of U-100 00:00: SUBCUTANEO [place] INSULIN 100 00 USLY TWICE Me dical unit/mL (3 DAILY Branch mL) injection LANTUS Yes [id number] INJECT 53 [facility] god[facility] SOLOSTAR 9-09 UNITS ity of U-100 00:00: SUBCUTANEO [place] INSULIN 100 00 USLY TWICE Me dical unit/mL (3 DAILY Branch mL) injection LANTUS Yes [id number] INJECT 53 Un god[facility] SOLOSTAR 9-09 UNITS ity of U-100 00:00: SUBCUTANEO [place] INSULIN 100 00 USLY TWICE Me dical unit/mL (3 DAILY Branch mL) injection LANTUS Yes [id number] INJECT 53 [facility] god[facility] SOLOSTAR 9-09 UNITS ity of U-100 00:00: SUBCUTANEO [place] INSULIN 100 00 USLY TWICE Me dical unit/mL (3 DAILY Branch mL) injection LANTUS Yes [id number] INJECT 53 [facility] god[facility] SOLOSTAR 9-09 UNITS ity of U-100 00:00: SUBCUTANEO [place] INSULIN 100 00 USLY TWICE Me dical unit/mL (3 DAILY Branch mL) injection LANTUS Yes [id number] INJECT 53 [facility] god[facility] SOLOSTAR 9-09 UNITS ity of U-100 00:00: SUBCUTANEO [place] INSULIN 100 00 USLY TWICE Me dical unit/mL (3 DAILY Branch mL) injection LANTUS Yes [id number] INJECT 53 [facility] god[facility] SOLOSTAR 9-09 UNITS ity of U-100 00:00: SUBCUTANEO [place] INSULIN 100 00 USLY TWICE Me dical unit/mL (3 DAILY Branch mL) injection LANTUS No [id number] INJECT 53 U nivers SOLOSTAR 9-09 10-20 UNITS ity of U-100 00:00: 00:00 SUBCUTANEO [place] INSULIN 100 00 :00 USLY TWICE Me dical unit/mL (3 DAILY Branch mL) injection LANTUS 2021- No [id number] INJECT 53 U benjamín GODWINAR 9 10-20 UNITS ity of U-100 00:00: 00:00 SUBCUTANEO [place] INSULIN 100 00 :00 USLY TWICE Me dical unit/mL (3 DAILY Branch mL) injection isosorbide 2021- No [id number] 30mg Take 1 [facility] mononitrate 07-12 tablet by it y of 30 mg 24 hr 00:00: 04:59 mouth in [place] tablet 00 :00 the Medical morning Branch for 30 days. isosorbide 2021- No [id number] 30mg Take 1 [facility] mononitrate 07-12 tablet by it y of 30 mg 24 hr 00:00: 04:59 mouth in [place] tablet 00 :00 the Medical morning Branch for 30 days. isosorbide 2021- No [id number] 30mg Take 1 [facility] mononitrate 07-12 tablet by it y of 30 mg 24 hr 00:00: 04:59 mouth in [place] tablet 00 :00 the Medical morning Branch for 30 days. isosorbide No [id number] 30mg Take 1 [facility] mononitrate 07-12 tablet by it y of 30 mg 24 hr 00:00: 04:59 mouth in [place] tablet 00 :00 the Medical morning Branch for 30 days. isosorbide 2021- No [id number] 30mg Take 1 [facility] mononitrate 07-12 tablet by it y of 30 mg 24 hr 00:00: 04:59 mouth in [place] tablet 00 :00 the Medical morning Branch for 30 days. isosorbide 2021- No [id number] 30mg Take 1 [facility] mononitrate 07-12 tablet by it y of 30 mg 24 hr 00:00: 04:59 mouth in [place] tablet 00 :00 the Medical morning Branch for 30 days. isosorbide 2021- No [id number] 30mg Take 1 [facility] mononitrate 07-12 tablet by it y of 30 mg 24 hr 00:00: 04:59 mouth in [place] tablet 00 :00 the Medical morning Branch for 30 days. cholecalcif No [id number] 1000U Take 1 [facility] sri, 07-12 tablet by ity of vitamin D3, 00:00: 04:59 mouth in [place] 25 mcg 00 :00 the Medical (1,000 morning Branch unit) for 8 tablet days. zinc No [id number] 50mg Take 1 Un[facility] rs sulfate 50 07-12 capsule by it y of mg zinc 00:00: 04:59 mouth in [place] (220 mg) 00 :00 the Medical capsule morning Branch for 8 days. cholecalcif No [id number] 1000U Take 1 [facility] sri, 07-12 tablet by ity of vitamin D3, 00:00: 04:59 mouth in [place] 25 mcg 00 :00 the Medical (1,000 morning Branch unit) for 8 tablet days. zinc No [id number] 50mg Take 1 Un[facility] rs sulfate 50 07-12 capsule by it y of mg zinc 00:00: 04:59 mouth in [place] (220 mg) 00 :00 the Medical capsule morning Branch for 8 days. cholecalcif No [id number] 1000U Take 1 [facility] sri, 07-12 tablet by ity of vitamin D3, 00:00: 04:59 mouth in [place] 25 mcg 00 :00 the Medical (1,000 morning Branch unit) for 8 tablet days. zinc No [id number] 50mg Take 1 Unive rs sulfate 50 07-12 capsule by it y of mg zinc 00:00: 04:59 mouth in [place] (220 mg) 00 :00 the Medical capsule morning Branch for 8 days. bumetanide No [id number] .5mg Take 1 [facility] 0.5 mg 07-11 tablet by ity of tablet 00:00: 04:59 mouth [place] 00 :00 every Medical morning Branch and evening for 30 days. bumetanide 2021- No [id number] .5mg Take 1 [facility] 0.5 mg 07-11 tablet by ity of tablet 00:00: 04:59 mouth [place] 00 :00 every Medical morning Branch and evening for 30 days. bumetanide 2021- No [id number] .5mg Take 1 [facility] 0.5 mg 07-11 tablet by ity of tablet 00:00: 04:59 mouth [place] 00 :00 every Medical morning Branch and evening for 30 days. bumetanide 2021- No [id number] .5mg Take 1 [facility] 0.5 mg 07-11 tablet by ity of tablet 00:00: 00:00 mouth [place] 00 :00 every Medical morning Branch and evening for 30 days. ascorbic 2021- No [id number] 500mg Take 1 [facility] acid, 07-11 tablet by ity of vitamin C, 00:00: 04:59 mouth in [place] 500 mg 00 :00 the Medical tablet morning Branch and 1 tablet in the evening. Do all this for 8 days. ascorbic 2021- No [id number] 500mg Take 1 [facility] acid, 07-11 tablet by ity of vitamin C, 00:00: 04:59 mouth in [place] 500 mg 00 :00 the Medical tablet morning Branch and 1 tablet in the evening. Do all this for 8 days. ascorbic 2021- No [id number] 500mg Take 1 [facility] acid, 07-11 tablet by ity of vitamin C, 00:00: 04:59 mouth in [place] 500 mg 00 :00 the Medical tablet morning Branch and 1 tablet in the evening. Do all this for 8 days. gabapentin 2021-0 Yes [id number] TAKE 1 & [facility] 600 mg 8-23 1/2 (ONE & ity of tablet 00:00: ONE-HALF) [place] 00 TABLETS BY Medical MOUTH Branch THREE TIMES DAILY gabapentin 2021-0 Yes [id number] TAKE 1 & [facility] 600 mg 8-23 1/2 (ONE & ity of tablet 00:00: ONE-HALF) [place] 00 TABLETS BY Medical MOUTH Branch THREE TIMES DAILY gabapentin 2021-0 Yes [id number] TAKE 1 & [facility] 600 mg 8-23 1/2 (ONE & ity of tablet 00:00: ONE-HALF) [place] 00 TABLETS BY Medical MOUTH Branch THREE TIMES DAILY gabapentin 2022-0 Yes [id number] TAKE 1 & [facility] 600 mg 8-23 1/2 (ONE & ity of tablet 00:00: ONE-HALF) [place] 00 TABLETS BY Medical MOUTH Branch THREE TIMES DAILY gabapentin 2022-0 Yes [id number] TAKE 1 & [facility] 600 mg 8-23 1/2 (ONE & ity of tablet 00:00: ONE-HALF) [place] 00 TABLETS BY Medical MOUTH Branch THREE TIMES DAILY gabapentin 2022-0 Yes [id number] TAKE 1 & [facility] 600 mg 8-23 1/2 (ONE & ity of tablet 00:00: ONE-HALF) [place] 00 TABLETS BY Medical MOUTH Branch THREE TIMES DAILY gabapentin 2022-0 Yes [id number] TAKE 1 & [facility] 600 mg 8-23 1/2 (ONE & ity of tablet 00:00: ONE-HALF) [place] 00 TABLETS BY Medical MOUTH Branch THREE TIMES DAILY gabapentin 2022-0 Yes [id number] TAKE 1 & [facility] 600 mg 8-23 1/2 (ONE & ity of tablet 00:00: ONE-HALF) [place] 00 TABLETS BY Medical MOUTH Branch THREE TIMES DAILY gabapentin 2022-0 Yes [id number] TAKE 1 & [facility] 600 mg 8-23 1/2 (ONE & ity of tablet 00:00: ONE-HALF) [place] 00 TABLETS BY Medical MOUTH Branch THREE TIMES DAILY gabapentin 2022-0 Yes [id number] TAKE 1 & [facility] 600 mg 8-23 1/2 (ONE & ity of tablet 00:00: ONE-HALF) [place] 00 TABLETS BY Medical MOUTH Branch THREE TIMES DAILY gabapentin 2022-0 Yes [id number] TAKE 1 & [facility] 600 mg 8-23 1/2 (ONE & ity of tablet 00:00: ONE-HALF) [place] 00 TABLETS BY Medical MOUTH Branch THREE TIMES DAILY gabapentin 2022-0 Yes [id number] TAKE 1 & [facility] 600 mg 8-23 1/2 (ONE & ity of tablet 00:00: ONE-HALF) [place] 00 TABLETS BY Medical MOUTH Branch THREE TIMES DAILY gabapentin 2022-0 Yes [id number] TAKE 1 & [facility] 600 mg 8-23 1/2 (ONE & ity of tablet 00:00: ONE-HALF) [place] 00 TABLETS BY Medical MOUTH Branch THREE TIMES DAILY gabapentin 2022-0 Yes [id number] TAKE 1 & [facility] 600 mg 8-23 1/2 (ONE & ity of tablet 00:00: ONE-HALF) [place] 00 TABLETS BY Medical MOUTH Branch THREE TIMES DAILY gabapentin 2022-0 Yes [id number] TAKE 1 & [facility] 600 mg 8-23 1/2 (ONE & ity of tablet 00:00: ONE-HALF) [place] 00 TABLETS BY Medical MOUTH Branch THREE TIMES DAILY gabapentin 2022-0 Yes [id number] TAKE 1 & [facility] 600 mg 8-23 1/2 (ONE & ity of tablet 00:00: ONE-HALF) [place] 00 TABLETS BY Medical MOUTH Branch THREE TIMES DAILY gabapentin 2022-0 Yes [id number] TAKE 1 & [facility] 600 mg 8-23 1/2 (ONE & ity of tablet 00:00: ONE-HALF) [place] 00 TABLETS BY Medical MOUTH Branch THREE TIMES DAILY gabapentin 2022-0 Yes [id number] TAKE 1 & [facility] 600 mg 8-23 1/2 (ONE & ity of tablet 00:00: ONE-HALF) [place] 00 TABLETS BY Medical MOUTH Branch THREE TIMES DAILY gabapentin 2022-0 Yes [id number] TAKE 1 & [facility] 600 mg 8-23 1/2 (ONE & ity of tablet 00:00: ONE-HALF) [place] 00 TABLETS BY Medical MOUTH Branch THREE TIMES DAILY gabapentin 2022-0 Yes [id number] TAKE 1 & [facility] 600 mg 8-23 1/2 (ONE & ity of tablet 00:00: ONE-HALF) [place] 00 TABLETS BY Medical MOUTH Branch THREE TIMES DAILY gabapentin 2022-0 Yes [id number] TAKE 1 & [facility] 600 mg 8-23 1/2 (ONE & ity of tablet 00:00: ONE-HALF) [place] 00 TABLETS BY Medical MOUTH Branch THREE TIMES DAILY gabapentin 2022-0 Yes [id number] TAKE 1 & [facility] 600 mg 8-23 1/2 (ONE & ity of tablet 00:00: ONE-HALF) [place] 00 TABLETS BY Medical MOUTH Branch THREE TIMES DAILY gabapentin 2022-0 Yes [id number] TAKE 1 & [facility] 600 mg 8-23 1/2 (ONE & ity of tablet 00:00: ONE-HALF) [place] 00 TABLETS BY Medical MOUTH Branch THREE TIMES DAILY gabapentin 2022-0 Yes [id number] TAKE 1 & [facility] 600 mg 8-23 1/2 (ONE & ity of tablet 00:00: ONE-HALF) [place] 00 TABLETS BY Medical MOUTH Branch THREE TIMES DAILY gabapentin 2022-0 Yes [id number] TAKE 1 & [facility] 600 mg 8-23 1/2 (ONE & ity of tablet 00:00: ONE-HALF) [place] 00 TABLETS BY Medical MOUTH Branch THREE TIMES DAILY gabapentin 2022-0 Yes [id number] TAKE 1 & [facility] 600 mg 8-23 1/2 (ONE & ity of tablet 00:00: ONE-HALF) [place] 00 TABLETS BY Medical MOUTH Branch THREE TIMES DAILY gabapentin 2022-0 Yes [id number] TAKE 1 & [facility] 600 mg 8-23 1/2 (ONE & ity of tablet 00:00: ONE-HALF) [place] 00 TABLETS BY Medical MOUTH Branch THREE TIMES DAILY gabapentin 2022-0 Yes [id number] TAKE 1 & [facility] 600 mg 8-23 1/2 (ONE & ity of tablet 00:00: ONE-HALF) [place] 00 TABLETS BY Medical MOUTH Branch THREE TIMES DAILY gabapentin 2022-0 Yes [id number] TAKE 1 & [facility] 600 mg 8-23 1/2 (ONE & ity of tablet 00:00: ONE-HALF) [place] 00 TABLETS BY Medical MOUTH Branch THREE TIMES DAILY gabapentin 2022-0 Yes [id number] TAKE 1 & [facility] 600 mg 8-23 1/2 (ONE & ity of tablet 00:00: ONE-HALF) [place] 00 TABLETS BY Medical MOUTH Branch THREE TIMES DAILY gabapentin 2022-0 Yes [id number] TAKE 1 & [facility] 600 mg 8-23 1/2 (ONE & ity of tablet 00:00: ONE-HALF) [place] 00 TABLETS BY Medical MOUTH Branch THREE TIMES DAILY gabapentin 2022-0 Yes [id number] TAKE 1 & [facility] 600 mg 8-23 1/2 (ONE & ity of tablet 00:00: ONE-HALF) [place] 00 TABLETS BY Medical MOUTH Branch THREE TIMES DAILY gabapentin 2022-0 Yes [id number] TAKE 1 & [facility] 600 mg 8-23 1/2 (ONE & ity of tablet 00:00: ONE-HALF) [place] 00 TABLETS BY Medical MOUTH Branch THREE TIMES DAILY gabapentin 2022-0 Yes [id number] TAKE 1 & [facility] 600 mg 8-23 1/2 (ONE & ity of tablet 00:00: ONE-HALF) [place] 00 TABLETS BY Medical MOUTH Branch THREE TIMES DAILY gabapentin 2022-0 Yes [id number] TAKE 1 & [facility] 600 mg 8-23 1/2 (ONE & ity of tablet 00:00: ONE-HALF) 00 TABLETS BY Medical MOUTH Branch THREE TIMES DAILY gabapentin 2022-0 Yes [id number] TAKE 1 & [facility] 600 mg 8-2 (ONE & ity of tablet 00:00: ONE-HALF) [place] 00 TABLETS BY Medical MOUTH Branch THREE TIMES DAILY gabapentin 2022-0 2022- No [id number] TAKE 1 & [facility] 600 mg 8-28 09- 12 (ONE & ity of tablet 00:00: 00:00 ONE-HALF) [place] 00 :00 TABLETS BY Medical MOUTH Branch THREE TIMES DAILY gabapentin 2022-0 2022- No [id number] TAKE 1 & [facility] 600 mg 8-28 09-2 (ONE & ity of tablet 00:00: 00:00 ONE-HALF) [place] 00 :00 TABLETS BY Medical MOUTH Branch THREE TIMES DAILY gabapentin 2022-0 2022- No [id number] TAKE 1 & [facility] 600 mg 8-10-012 (ONE & ity of tablet 00:00: 00:00 ONE-HALF) [place] 00 :00 TABLETS BY Medical MOUTH Branch THREE TIMES DAILY carvediloL 2022-0 Yes [id number] 12.5mg Take 1 [facility] 12.5 mg 7-12 tablet by ity of tablet 00:00: mouth in [address] and 1 tablet in the evening. Take with meals. carvediloL 2022-0 Yes [id number] 12.5mg Take 1 [facility] 12.5 mg 7-12 tablet by ity of tablet 00:00: mouth in [address] morning [place] and 1 tablet in the evening. Take with meals. carvediloL 2022-0 Yes [id number] 12.5mg Take 1 [facility] 12.5 mg 7-12 tablet by ity of tablet 00:00: mouth in [address] morning [place] and 1 tablet in the evening. Take with meals. carvediloL 2022-0 Yes [id number] 12.5mg Take 1 [facility] 12.5 mg 7-12 tablet by ity of tablet 00:00: mouth in [address] morning [place] and 1 tablet in the evening. Take with meals. carvediloL 2022-0 Yes [id number] 12.5mg Take 1 [facility] 12.5 mg 7-12 tablet by ity of tablet 00:00: mouth in [address] morning [place] and 1 tablet in the evening. Take with meals. carvediloL 2022-0 Yes [id number] 12.5mg Take 1 [facility] 12.5 mg 7-12 tablet by ity of tablet 00:00: mouth in [address] and 1 tablet in the evening. Take with meals. carvediloL 2022-0 Yes [id number] 12.5mg Take 1 [facility] 12.5 mg 7-12 tablet by ity of tablet 00:00: mouth in [address] and 1 tablet in the evening. Take with meals. carvediloL 2022-0 Yes [id number] 12.5mg Take 1 [facility] 12.5 mg 7-12 tablet by ity of tablet 00:00: mouth in [address] and 1 tablet in the evening. Take with meals. carvediloL 2022-0 Yes [id number] 12.5mg Take 1 [facility] 12.5 mg 7-12 tablet by ity of tablet 00:00: mouth in [address] and 1 tablet in the evening. Take with meals. carvediloL 2022-0 Yes [id number] 12.5mg Take 1 [facility] 12.5 mg 7-12 tablet by ity of tablet 00:00: mouth in [address] and 1 tablet in the evening. Take with meals. carvediloL 2022-0 Yes [id number] 12.5mg Take 1 [facility] 12.5 mg 7-12 tablet by ity of tablet 00:00: mouth in [address] and 1 tablet in the evening. Take with meals. carvediloL 2022-0 Yes [id number] 12.5mg Take 1 [facility] 12.5 mg 7-12 tablet by ity of tablet 00:00: mouth in [address] and 1 tablet in the evening. Take with meals. carvediloL 2022-0 Yes [id number] 12.5mg Take 1 [facility] 12.5 mg 7-12 tablet by ity of tablet 00:00: mouth in [address] and 1 tablet in the evening. Take with meals. carvediloL 2022-0 Yes [id number] 12.5mg Take 1 [facility] 12.5 mg 7-12 tablet by ity of tablet 00:00: mouth in [address] and 1 tablet in the evening. Take with meals. carvediloL 2022-0 Yes [id number] 12.5mg Take 1 [facility] 12.5 mg 7-12 tablet by ity of tablet 00:00: mouth in [address] and 1 tablet in the evening. Take with meals. carvediloL 2022-0 Yes [id number] 12.5mg Take 1 [facility] 12.5 mg 7-12 tablet by ity of tablet 00:00: mouth in [address] and 1 tablet in the evening. Take with meals. carvediloL 2022-0 Yes [id number] 12.5mg Take 1 [facility] 12.5 mg 7-12 tablet by [facility] of tablet 00:00: mouth in [address] and 1 tablet in the evening. Take with meals. carvediloL 2022-0 Yes [id number] 12.5mg Take 1 [facility] 12.5 mg 7-12 tablet by it[facility] of tablet 00:00: mouth in [address] and 1 tablet in the evening. Take with meals. carvediloL 2022-0 Yes [id number] 12.5mg Take 1 [facility] 12.5 mg 7-12 tablet by ity of tablet 00:00: mouth in [address] and 1 tablet in the evening. Take with meals. carvediloL 2022-0 Yes [id number] 12.5mg Take 1 [facility] 12.5 mg 7-12 tablet by ity of tablet 00:00: mouth in [address] and 1 tablet in the evening. Take with meals. carvediloL 2022-0 Yes [id number] 12.5mg Take 1 [facility] 12.5 mg 7-12 tablet by ity of tablet 00:00: mouth in [address] and 1 tablet in the evening. Take with meals. carvediloL 2022-0 Yes [id number] 12.5mg Take 1 [facility] 12.5 mg 7-12 tablet by ity of tablet 00:00: mouth in [address] and 1 tablet in the evening. Take with meals. carvediloL 2022-0 Yes [id number] 12.5mg Take 1 [facility] 12.5 mg 7-12 tablet by ity of tablet 00:00: mouth in [address] [place] and 1 tablet in the evening. Take with meals. carvediloL 2022-0 Yes [id number] 12.5mg Take 1 [facility] 12.5 mg 7-12 tablet by ity of tablet 00:00: mouth in [address] morning [place] and 1 tablet in the evening. Take with meals. carvediloL 2022-0 Yes [id number] 12.5mg Take 1 [facility] 12.5 mg 7-12 tablet by ity of tablet 00:00: mouth in [address] and 1 tablet in the evening. Take with meals. carvediloL 2022-0 Yes [id number] 12.5mg Take 1 [facility] 12.5 mg 7-12 tablet by ity of tablet 00:00: mouth in [address] morning [place] and 1 tablet in the evening. Take with meals. carvediloL 2022-0 Yes [id number] 12.5mg Take 1 [facility] 12.5 mg 7-12 tablet by ity of tablet 00:00: mouth in [address] and 1 tablet in the evening. Take with meals. carvediloL 2022-0 Yes [id number] 12.5mg Take 1 [facility] 12.5 mg 7-12 tablet by ity of tablet 00:00: mouth in [address] and 1 tablet in the evening. Take with meals. carvediloL 2022-0 Yes [id number] 12.5mg Take 1 [facility] 12.5 mg 7-12 tablet by ity of tablet 00:00: mouth in [address] and 1 tablet in the evening. Take with meals. carvediloL 2022-0 Yes [id number] 12.5mg Take 1 [facility] 12.5 mg 7-12 tablet by ity of tablet 00:00: mouth in [address] morning [place] and 1 tablet in the evening. Take with meals. carvediloL 2022-0 Yes [id number] 12.5mg Take 1 [facility] 12.5 mg 7-12 tablet by ity of tablet 00:00: mouth in [address] and 1 tablet in the evening. Take with meals. carvediloL 2022-0 Yes [id number] 12.5mg Take 1 [facility] 12.5 mg 7-12 tablet by [facility] of tablet 00:00: mouth in [place] 00 the Medical morning [facility] and 1 tablet in the evening. Take with meals. carvediloL 2022-0 Yes [id number] 12.5mg Take 1 [facility] 12.5 mg 7-12 tablet by ity of tablet 00:00: mouth in [place] [address] the [facility] morning [place] and 1 tablet in the evening. Take with meals. carvediloL 2022-0 Yes [id number] 12.5mg Take 1 [facility] 12.5 mg 7-12 tablet by ity of tablet 00:00: mouth in [place] [address] the [facility] morning [place] and 1 tablet in the evening. Take with meals. carvediloL 2022-0 Yes [id number] 12.5mg Take 1 [facility] 12.5 mg 7-12 tablet by ity of tablet 00:00: mouth in [place] [address] the [facility] morning [place] and 1 tablet in the evening. Take with meals. carvediloL 2022-0 Yes [id number] 12.5mg Take 1 [facility] 12.5 mg 7-12 tablet by ity of tablet 00:00: mouth in [place] [address] the [facility] morning [place] and 1 tablet in the evening. Take with meals. carvediloL 2022-0 Yes [id number] 12.5mg Take 1 [facility] 12.5 mg 7-12 tablet by ity of tablet 00:00: mouth in [address] morning [place] and 1 tablet in the evening. Take with meals. carvediloL 2022-0 Yes [id number] 12.5mg Take 1 [facility] 12.5 mg 7-12 tablet by ity of tablet 00:00: mouth in [place] [address] the [facility] morning [place] and 1 tablet in the evening. Take with meals. carvediloL 2022-0 Yes [id number] 12.5mg Take 1 [facility] 12.5 mg 7-12 tablet by ity of tablet 00:00: mouth in [address] morning [place] and 1 tablet in the evening. Take with meals. carvediloL 2022-0 Yes [id number] 12.5mg Take 1 [facility] 12.5 mg 7-12 tablet by ity of tablet 00:00: mouth in [address] morning [place] and 1 tablet in the evening. Take with meals. carvediloL 2022-0 Yes [id number] 12.5mg Take 1 [facility] 12.5 mg 7-12 tablet by ity of tablet 00:00: mouth in [address] morning Branch and 1 tablet in the evening. Take with meals. carvediloL 2022-0 Yes [id number] 12.5mg Take 1 [facility] 12.5 mg 7-12 tablet by ity of tablet 00:00: mouth in [place] [address] the [facility] morning [place] and 1 tablet in the evening. Take with meals. carvediloL 2022-0 Yes [id number] 12.5mg Take 1 [facility] 12.5 mg 7-12 tablet by ity of tablet 00:00: mouth in [place] [address] the [facility] morning [place] and 1 tablet in the evening. Take with meals. carvediloL 2022-0 Yes [id number] 12.5mg Take 1 [facility] 12.5 mg 7-12 tablet by ity of tablet 00:00: mouth in [place] [address] the [facility] morning [place] and 1 tablet in the evening. Take with meals. carvediloL 2022-0 Yes [id number] 12.5mg Take 1 [facility] 12.5 mg 7-12 tablet by ity of tablet 00:00: mouth in [place] [address] the [facility] morning [place] and 1 tablet in the evening. Take with meals. carvediloL 2022-0 Yes [id number] 12.5mg Take 1 [facility] 12.5 mg 7-12 tablet by ity of tablet 00:00: mouth in [place] [address] the [facility] and 1 tablet in the evening. Take with meals. carvediloL 2022-0 Yes [id number] 12.5mg Take 1 [facility] 12.5 mg 7-12 tablet by ity of tablet 00:00: mouth in [place] [address] the [facility] morning [place] and 1 tablet in the evening. Take with meals. carvediloL 2022-0 Yes [id number] 12.5mg Take 1 [facility] 12.5 mg 7-12 tablet by ity of tablet 00:00: mouth in [place] [address] the [facility] and 1 tablet in the evening. Take with meals. carvediloL 2022-0 Yes [id number] 12.5mg Take 1 [facility] 12.5 mg 7-12 tablet by ity of tablet 00:00: mouth in [place] [address] the [facility] and 1 tablet in the evening. Take with meals. carvediloL 2022-0 Yes [id number] 12.5mg Take 1 [facility] 12.5 mg 7-12 tablet by ity of tablet 00:00: mouth in [address] morning [place] and 1 tablet in the evening. Take with meals. carvediloL 2022-0 Yes [id number] 12.5mg Take 1 [facility] 12.5 mg 7-12 tablet by ity of tablet 00:00: mouth in [place] [address] the [facility] morning [place] and 1 tablet in the evening. Take with meals. carvediloL 2022-0 Yes [id number] 12.5mg Take 1 [facility] 12.5 mg 7-12 tablet by ity of tablet 00:00: mouth in [place] [address] the [facility] morning [place] and 1 tablet in the evening. Take with meals. carvediloL 2022-0 Yes [id number] 12.5mg Take 1 [facility] 12.5 mg 7-12 tablet by ity of tablet 00:00: mouth in [place] [address] the [facility] morning [place] and 1 tablet in the evening. Take with meals. carvediloL 2022-0 Yes [id number] 12.5mg Take 1 [facility] 12.5 mg 7-12 tablet by ity of tablet 00:00: mouth in [address] morning [place] and 1 tablet in the evening. Take with meals. carvediloL 2-0 Yes [id number] 12.5mg Take 1 [facility] 12.5 mg 7-12 tablet by ity of tablet 00:00: mouth in [address] morning [place] and 1 tablet in the evening. Take with meals. carvediloL 2022-0 Yes [id number] 12.5mg Take 1 [facility] 12.5 mg 7-12 tablet by ity of tablet 00:00: mouth in [address] morning [place] and 1 tablet in the evening. Take with meals. carvediloL 2022-0 Yes [id number] 12.5mg Take 1 [facility] 12.5 mg 7-12 tablet by ity of tablet 00:00: mouth in [address] morning [place] and 1 tablet in the evening. Take with meals. carvediloL 2022-0 Yes [id number] 12.5mg Take 1 [facility] 12.5 mg 7-12 tablet by ity of tablet 00:00: mouth in [address] morning [place] and 1 tablet in the evening. Take with meals. carvediloL 2022-0 Yes [id number] 12.5mg Take 1 [facility] 12.5 mg 7-12 tablet by ity of tablet 00:00: mouth in [address] morning [place] and 1 tablet in the evening. Take with meals. carvediloL 2022-0 Yes [id number] 12.5mg Take 1 [facility] 12.5 mg 7-12 tablet by ity of tablet 00:00: mouth in [place] [address] the [facility] morning [place] and 1 tablet in the evening. Take with meals. carvediloL 2022-0 Yes [id number] 12.5mg Take 1 [facility] 12.5 mg 7-12 tablet by ity of tablet 00:00: mouth in [address] morning [place] and 1 tablet in the evening. Take with meals. carvediloL 2022-0 Yes [id number] 12.5mg Take 1 [facility] 12.5 mg 7-12 tablet by ity of tablet 00:00: mouth in [address] morning [place] and 1 tablet in the evening. Take with meals. carvediloL 2-0 Yes [id number] 12.5mg Take 1 [facility] 12.5 mg 7-12 tablet by ity of tablet 00:00: mouth in [address] and 1 tablet in the evening. Take with meals. carvediloL 2-0 Yes [id number] 12.5mg Take 1 [facility] 12.5 mg 7-12 tablet by ity of tablet 00:00: mouth in [address] and 1 tablet in the evening. Take with meals. carvediloL 2022-0 Yes [id number] 12.5mg Take 1 [facility] 12.5 mg 7-12 tablet by ity of tablet 00:00: mouth in [address] and 1 tablet in the evening. Take with meals. carvediloL 2022-0 Yes [id number] 12.5mg Take 1 [facility] 12.5 mg 7-12 tablet by ity of tablet 00:00: mouth in [address] and 1 tablet in the evening. Take with meals. carvediloL 2022-0 Yes [id number] 12.5mg Take 1 [facility] 12.5 mg 7-12 tablet by ity of tablet 00:00: mouth in [address] and 1 tablet in the evening. Take with meals. carvediloL 2022-0 Yes [id number] 12.5mg Take 1 [facility] 12.5 mg 7-12 tablet by ity of tablet 00:00: mouth in [address] and 1 tablet in the evening. Take with meals. carvediloL 2022-0 Yes [id number] 12.5mg Take 1 [facility] 12.5 mg 7-12 tablet by ity of tablet 00:00: mouth in [place] [address] the [facility] morning [place] and 1 tablet in the evening. Take with meals. carvediloL 2022-0 Yes [id number] 12.5mg Take 1 [facility] 12.5 mg 7-12 tablet by ity of tablet 00:00: mouth in [address] morning [place] and 1 tablet in the evening. Take with meals. carvediloL 2022-0 Yes [id number] 12.5mg Take 1 [facility] 12.5 mg 7-12 tablet by ity of tablet 00:00: mouth in [address] morning [place] and 1 tablet in the evening. Take with meals. carvediloL 2022-0 Yes [id number] 12.5mg Take 1 [facility] 12.5 mg 7-12 tablet by ity of tablet 00:00: mouth in [address] morning [place] and 1 tablet in the evening. Take with meals. carvediloL 2022-0 Yes [id number] 12.5mg Take 1 [facility] 12.5 mg 7-12 tablet by ity of tablet 00:00: mouth in [address] morning [place] and 1 tablet in the evening. Take with meals. carvediloL 2022-0 Yes [id number] 12.5mg Take 1 [facility] 12.5 mg 7-12 tablet by ity of tablet 00:00: mouth in [address] and 1 tablet in the evening. Take with meals. carvediloL 2022-0 Yes [id number] 12.5mg Take 1 [facility] 12.5 mg 7-12 tablet by ity of tablet 00:00: mouth in [address] morning [place] and 1 tablet in the evening. Take with meals. carvediloL 2022-0 Yes [id number] 12.5mg Take 1 [facility] 12.5 mg 7-12 tablet by ity of tablet 00:00: mouth in [address] morning [place] and 1 tablet in the evening. Take with meals. carvediloL 2022-0 Yes [id number] 12.5mg Take 1 [facility] 12.5 mg 7-12 tablet by ity of tablet 00:00: mouth in [address] morning [place] and 1 tablet in the evening. Take with meals. carvediloL 2022-0 Yes [id number] 12.5mg Take 1 [facility] 12.5 mg 7-12 tablet by ity of tablet 00:00: mouth in [address] morning [place] and 1 tablet in the evening. Take with meals. carvediloL 2022-0 Yes [id number] 12.5mg Take 1 [facility] 12.5 mg 7-12 tablet by ity of tablet 00:00: mouth in [address] morning [place] and 1 tablet in the evening. Take with meals. carvediloL 2022-0 Yes [id number] 12.5mg Take 1 [facility] 12.5 mg 7-12 tablet by ity of tablet 00:00: mouth in [address] morning [place] and 1 tablet in the evening. Take with meals. carvediloL 2022-0 Yes [id number] 12.5mg Take 1 [facility] 12.5 mg 7-12 tablet by ity of tablet 00:00: mouth in [address] morning [place] and 1 tablet in the evening. Take with meals. carvediloL 2-0 Yes [id number] 12.5mg Take 1 [facility] 12.5 mg 7-12 tablet by ity of tablet 00:00: mouth in [address] morning [place] and 1 tablet in the evening. Take with meals. carvediloL 2022-0 Yes [id number] 12.5mg Take 1 [facility] 12.5 mg 7-12 tablet by ity of tablet 00:00: mouth in [address] morning [place] and 1 tablet in the evening. Take with meals. carvediloL 2022-0 Yes [id number] 12.5mg Take 1 [facility] 12.5 mg 7-12 tablet by ity of tablet 00:00: mouth in [address] and 1 tablet in the evening. Take with meals. carvediloL 2022-0 Yes [id number] 12.5mg Take 1 [facility] 12.5 mg 7-12 tablet by ity of tablet 00:00: mouth in [address] morning [place] and 1 tablet in the evening. Take with meals. carvediloL 2022-0 Yes [id number] 12.5mg Take 1 [facility] 12.5 mg 7-12 tablet by ity of tablet 00:00: mouth in [address] and 1 tablet in the evening. Take with meals. carvediloL 2022-0 Yes [id number] 12.5mg Take 1 [facility] 12.5 mg 7-12 tablet by ity of tablet 00:00: mouth in [address] morning [place] and 1 tablet in the evening. Take with meals. carvediloL 2022-0 Yes [id number] 12.5mg Take 1 [facility] 12.5 mg 7-12 tablet by ity of tablet 00:00: mouth in [place] [address] the [facility] morning [place] and 1 tablet in the evening. Take with meals. carvediloL 2022-0 Yes [id number] 12.5mg Take 1 [facility] 12.5 mg 7-12 tablet by ity of tablet 00:00: mouth in [address] morning [place] and 1 tablet in the evening. Take with meals. carvediloL 2022-0 Yes [id number] 12.5mg Take 1 [facility] 12.5 mg 7-12 tablet by ity of tablet 00:00: mouth in [address] morning [place] and 1 tablet in the evening. Take with meals. carvediloL 2022-0 Yes [id number] 12.5mg Take 1 [facility] 12.5 mg 7-12 tablet by ity of tablet 00:00: mouth in [address] and 1 tablet in the evening. Take with meals. carvediloL 2022-0 Yes [id number] 12.5mg Take 1 [facility] 12.5 mg 7-12 tablet by ity of tablet 00:00: mouth in [address] and 1 tablet in the evening. Take with meals. carvediloL 2022-0 Yes [id number] 12.5mg Take 1 [facility] 12.5 mg 7-12 tablet by ity of tablet 00:00: mouth in [address] and 1 tablet in the evening. Take with meals. carvediloL 2022-0 Yes [id number] 12.5mg Take 1 [facility] 12.5 mg 7-12 tablet by ity of tablet 00:00: mouth in [address] and 1 tablet in the evening. Take with meals. carvediloL 2022-0 Yes [id number] 12.5mg Take 1 [facility] 12.5 mg 7-12 tablet by ity of tablet 00:00: mouth in [address] morning [place] and 1 tablet in the evening. Take with meals. carvediloL 2022-0 Yes [id number] 12.5mg Take 1 [facility] 12.5 mg 7-12 tablet by ity of tablet 00:00: mouth in [address] morning [place] and 1 tablet in the evening. Take with meals. carvediloL 2022-0 Yes [id number] 12.5mg Take 1 [facility] 12.5 mg 7-12 tablet by ity of tablet 00:00: mouth in [address] morning [place] and 1 tablet in the evening. Take with meals. carvediloL 2022-0 Yes [id number] 12.5mg Take 1 [facility] 12.5 mg 7-12 tablet by ity of tablet 00:00: mouth in [address] morning [place] and 1 tablet in the evening. Take with meals. carvediloL 2022-0 Yes [id number] 12.5mg Take 1 [facility] 12.5 mg 7-12 tablet by ity of tablet 00:00: mouth in [address] morning [place] and 1 tablet in the evening. Take with meals. carvediloL 2022-0 Yes [id number] 12.5mg Take 1 [facility] 12.5 mg 7-12 tablet by ity of tablet 00:00: mouth in [address] morning [place] and 1 tablet in the evening. Take with meals. carvediloL 2022-0 Yes [id number] 12.5mg Take 1 [facility] 12.5 mg 7-12 tablet by ity of tablet 00:00: mouth in [address] and 1 tablet in the evening. Take with meals. carvediloL 2022-0 Yes [id number] 12.5mg Take 1 [facility] 12.5 mg 7-12 tablet by ity of tablet 00:00: mouth in [address] and 1 tablet in the evening. Take with meals. carvediloL 2022-0 Yes [id number] 12.5mg Take 1 [facility] 12.5 mg 7-12 tablet by ity of tablet 00:00: mouth in [address] morning [place] and 1 tablet in the evening. Take with meals. carvediloL 2022-0 Yes [id number] 12.5mg Take 1 [facility] 12.5 mg 7-12 tablet by ity of tablet 00:00: mouth in [address] morning [place] and 1 tablet in the evening. Take with meals. carvediloL 2022-0 Yes [id number] 12.5mg Take 1 [facility] 12.5 mg 7-12 tablet by ity of tablet 00:00: mouth in [address] morning [place] and 1 tablet in the evening. Take with meals. carvediloL 2022-0 Yes [id number] 12.5mg Take 1 [facility] 12.5 mg 7-12 tablet by ity of tablet 00:00: mouth in [address] and 1 tablet in the evening. Take with meals. carvediloL 2022-0 Yes [id number] 12.5mg Take 1 [facility] 12.5 mg 7-12 tablet by ity of tablet 00:00: mouth in [address] and 1 tablet in the evening. Take with meals. carvediloL 2022-0 Yes [id number] 12.5mg Take 1 [facility] 12.5 mg 7-12 tablet by ity of tablet 00:00: mouth in [address] and 1 tablet in the evening. Take with meals. carvediloL 2022-0 Yes [id number] 12.5mg Take 1 [facility] 12.5 mg 7-12 tablet by ity of tablet 00:00: mouth in [address] and 1 tablet in the evening. Take with meals. carvediloL 2022-0 Yes [id number] 12.5mg Take 1 [facility] 12.5 mg 7-12 tablet by ity of tablet 00:00: mouth in [address] and 1 tablet in the evening. Take with meals. carvediloL 2022-0 Yes [id number] 12.5mg Take 1 [facility] 12.5 mg 7-12 tablet by ity of tablet 00:00: mouth in [address] and 1 tablet in the evening. Take with meals. carvediloL 2022-0 Yes [id number] 12.5mg Take 1 [facility] 12.5 mg 7-12 tablet by ity of tablet 00:00: mouth in [address] and 1 tablet in the evening. Take with meals. carvediloL 2022-0 Yes [id number] 12.5mg Take 1 [facility] 12.5 mg 7-12 tablet by ity of tablet 00:00: mouth in [address] and 1 tablet in the evening. Take with meals. carvediloL 2022-0 Yes [id number] 12.5mg Take 1 [facility] 12.5 mg 7-12 tablet by ity of tablet 00:00: mouth in [place] 00 the Medical morning [place] and 1 tablet in the evening. Take with meals. carvediloL 2021-0 Yes [id number] 12.5mg Take 1 [facility] 12.5 mg 7-12 tablet by ity of tablet 00:00: mouth in [place] 00 the [facility] morning [place] and 1 tablet in the evening. Take with meals. carvediloL 2021-0 Yes [id number] 12.5mg Take 1 [facility] 12.5 mg 7-12 tablet by ity of tablet 00:00: mouth in [place] 00 the [facility] morning [place] and 1 tablet in the evening. Take with meals. carvediloL 2021-0 Yes [id number] 12.5mg Take 1 [facility] 12.5 mg 7-12 tablet by ity of tablet 00:00: mouth in [place] [address] the [facility] morning [place] and 1 tablet in the evening. Take with meals. carvediloL 2021-0 Yes [id number] 12.5mg Take 1 [facility] 12.5 mg 7-12 tablet by ity of tablet 00:00: mouth in [place] [address] the [facility] and 1 tablet in the evening. Take with meals. carvediloL 2021-0 3- No [id number] 12.5mg Take 1 [facility] 12.5 mg 7-12 03-21 tablet by ity of tablet 00:00: 00:00 mouth in [place] 00 :00 the [facility] and 1 tablet in the evening. Take with meals. carvediloL 2021-0 3- No [id number] 12.5mg Take 1 [facility] 12.5 mg 7-12 03-21 tablet by ity of tablet 00:00: 00:00 mouth in [place] 00 :00 the [facility] and 1 tablet in the evening. Take with meals. terazosin 2 2021-0 Yes [id number] 2mg Take 1 [facility] mg capsule 5-10 capsule by ity of 00:00: mouth at [place] [address] bedtime. Medical Branch terazosin 2 2021-0 Yes [id number] 2mg Take 1 [facility] mg capsule 5-10 capsule by ity of 00:00: mouth at [place] [address] bedtime. Medical Branch terazosin 2 2021-0 Yes [id number] 2mg Take 1 [facility] mg capsule 5-10 capsule by ity of 00:00: mouth at [place] [address] bedtime. Medical Branch terazosin 2 2021-0 Yes [id number] 2mg Take 1 [facility] mg capsule 5-10 capsule by ity of 00:00: mouth at [place] [address] bedtime. Medical Branch terazosin 2 0 Yes [id number] 2mg Take 1 [facility] mg capsule 5-10 capsule by ity of 00:00: mouth at [place] [address] bedtime. Medical Branch terazosin 2 0 Yes [id number] 2mg Take 1 [facility] mg capsule 5-10 capsule by ity of 00:00: mouth at [place] [address] bedtime. Medical Branch terazosin 2 0 Yes [id number] 2mg Take 1 [facility] mg capsule 5-10 capsule by ity of 00:00: mouth at [place] [address] bedtime. Medical Branch terazosin 2 0 Yes [id number] 2mg Take 1 [facility] mg capsule 5-10 capsule by ity of 00:00: mouth at [place] [address] bedtime. Medical Branch terazosin 2 Yes [id number] 2mg Take 1 [facility] mg capsule 5-10 capsule by ity of 00:00: mouth at [place] [address] bedtime. Medical Branch terazosin 2 Yes [id number] 2mg Take 1 [facility] mg capsule 5-10 capsule by ity of 00:00: mouth at [place] [address] bedtime. Medical Branch terazosin 2 0 Yes [id number] 2mg Take 1 [facility] mg capsule 5-10 capsule by ity of 00:00: mouth at [place] [address] bedtime. Medical Branch terazosin 2 0 Yes [id number] 2mg Take 1 [facility] mg capsule 5-10 capsule by ity of 00:00: mouth at [place] [address] bedtime. Medical Branch terazosin 2 0 Yes [id number] 2mg Take 1 [facility] mg capsule 5-10 capsule by ity of 00:00: mouth at [place] [address] bedtime. Medical Branch terazosin 2 0 Yes [id number] 2mg Take 1 [facility] mg capsule 5-10 capsule by ity of 00:00: mouth at [place] [address] bedtime. Medical Branch terazosin 2 0 Yes [id number] 2mg Take 1 [facility] mg capsule 5-10 capsule by ity of 00:00: mouth at [place] [address] bedtime. Medical Branch terazosin 2 0 Yes [id number] 2mg Take 1 [facility] mg capsule 5-10 capsule by ity of 00:00: mouth at [place] [address] bedtime. Medical Branch terazosin 2 2021-0 Yes [id number] 2mg Take 1 [facility] mg capsule 5-10 capsule by ity of 00:00: mouth at [place] [address] bedtime. Medical Branch terazosin 2 2021-0 Yes [id number] 2mg Take 1 [facility] mg capsule 5-10 capsule by ity of 00:00: mouth at [place] [address] bedtime. Medical Branch terazosin 2 2021-0 Yes [id number] 2mg Take 1 [facility] mg capsule 5-10 capsule by ity of 00:00: mouth at [place] [address] bedtime. Medical Branch terazosin 2 2021-0 Yes [id number] 2mg Take 1 [facility] mg capsule 5-10 capsule by ity of 00:00: mouth at [place] [address] bedtime. Medical Branch terazosin 2 0 Yes [id number] 2mg Take 1 [facility] mg capsule 5-10 capsule by ity of 00:00: mouth at [place] [address] bedtime. Medical Branch terazosin 2 0 Yes [id number] 2mg Take 1 [facility] mg capsule 5-10 capsule by ity of 00:00: mouth at [place] [address] bedtime. Medical Branch terazosin 2 0 Yes [id number] 2mg Take 1 [facility] mg capsule 5-10 capsule by ity of 00:00: mouth at [place] [address] bedtime. Medical Branch terazosin 2 0 Yes [id number] 2mg Take 1 [facility] mg capsule 5-10 capsule by ity of 00:00: mouth at [place] [address] bedtime. Medical Branch terazosin 2 2021-0 Yes [id number] 2mg Take 1 [facility] mg capsule 5-10 capsule by ity of 00:00: mouth at [place] [address] bedtime. Medical Branch terazosin 2 0 Yes [id number] 2mg Take 1 [facility] mg capsule 5-10 capsule by ity of 00:00: mouth at [place] [address] bedtime. Medical Branch terazosin 2 2021-0 Yes [id number] 2mg Take 1 [facility] mg capsule 5-10 capsule by ity of 00:00: mouth at [place] [address] bedtime. Medical Branch terazosin 2 2021-0 Yes [id number] 2mg Take 1 [facility] mg capsule 5-10 capsule by ity of 00:00: mouth at [place] [address] bedtime. Medical Branch terazosin 2 2021-0 Yes [id number] 2mg Take 1 [facility] mg capsule 5-10 capsule by ity of 00:00: mouth at [place] [address] bedtime. Medical Branch terazosin 2 0 Yes [id number] 2mg Take 1 [facility] mg capsule 5-10 capsule by ity of 00:00: mouth at [place] [address] bedtime. Medical Branch terazosin 2 0 Yes [id number] 2mg Take 1 [facility] mg capsule 5-10 capsule by ity of 00:00: mouth at [place] [address] bedtime. Medical Branch terazosin 2 0 Yes [id number] 2mg Take 1 [facility] mg capsule 5-10 capsule by ity of 00:00: mouth at [place] [address] bedtime. [facility] terazosin 2 0 Yes [id number] 2mg Take 1 [facility] capsule [facility]-10 capsule by [facility] of 00:00: mouth at [place] [address] bedtime. [facility] terazosin 2 Yes [id number] 2mg Take 1 [facility] mg capsule 5-10 capsule by [facility] of 00:00: mouth at [place] [address] bedtime. [facility] terazosin 2 Yes [id number] 2mg Take 1 [facility] mg capsule 5-10 capsule by [facility] of 00:00: mouth at [place] [address] bedtime. [facility] terazosin 2 0 Yes [id number] 2mg Take 1 [facility] mg capsule 5-10 capsule by [facility] of 00:00: mouth at [place] [address] bedtime. [facility] terazosin 2 0 Yes [id number] 2mg Take 1 [facility] mg capsule 5-10 capsule by [facility] of 00:00: mouth at [place] [address] bedtime. [facility] terazosin 2 0 Yes [id number] 2mg Take 1 [facility] mg capsule 5-10 capsule by [facility] of 00:00: mouth at [place] [address] bedtime. [facility] terazosin 2 0 Yes [id number] 2mg Take 1 [facility] mg capsule 5-10 capsule by [facility] of 00:00: mouth at [place] [address] bedtime. [facility] terazosin 2 0 Yes [id number] 2mg Take 1 [facility] mg capsule 5-10 capsule by [facility] of 00:00: mouth at [place] [address] bedtime. [facility] terazosin 2 0 Yes [id number] 2mg Take 1 [facility] mg capsule 5-10 capsule by [facility] of 00:00: mouth at [place] [address] bedtime. [facility] terazosin 2 2021-0 Yes [id number] 2mg Take 1 [facility] mg capsule 5-10 capsule by [facility] of 00:00: mouth at [place] [address] bedtime. [facility] terazosin 2 2021-0 Yes [id number] 2mg Take 1 [facility] mg capsule 5-10 capsule by [facility] of 00:00: mouth at [place] [address] bedtime. [facility] terazosin 2 2021-0 Yes [id number] 2mg Take 1 [facility] mg capsule 5-10 capsule by [facility] of 00:00: mouth at [place] [address] bedtime. [facility] terazosin 2 2021-0 Yes [id number] 2mg Take 1 [facility] mg capsule 5-10 capsule by [facility] of 00:00: mouth at [place] [address] bedtime. [facility] terazosin 2 0 Yes [id number] 2mg Take 1 [facility] mg capsule 5-10 capsule by [facility] of 00:00: mouth at [place] [address] bedtime. [facility] terazosin 2 0 Yes [id number] 2mg Take 1 [facility] mg capsule 5-10 capsule by [facility] of 00:00: mouth at [place] [address] bedtime. [facility] terazosin 2 0 Yes [id number] 2mg Take 1 [facility] mg capsule 5-10 capsule by [facility] of 00:00: mouth at [place] [address] bedtime. [facility] terazosin 2 0 Yes [id number] 2mg Take 1 [facility] mg capsule 5-10 capsule by [facility] of 00:00: mouth at [place] [address] bedtime. [facility] terazosin 2 2021-0 Yes [id number] 2mg Take 1 [facility] mg capsule 5-10 capsule by [facility] of 00:00: mouth at [place] [address] bedtime. [facility] terazosin 2 0 Yes [id number] 2mg Take 1 [facility] mg capsule 5-10 capsule by [facility] of 00:00: mouth at [place] [address] bedtime. [facility] terazosin 2 2021-0 Yes [id number] 2mg Take 1 [facility] mg capsule 5-10 capsule by [facility] of 00:00: mouth at [place] [address] bedtime. [facility] terazosin 2 2021-0 Yes [id number] 2mg Take 1 [facility] mg capsule 5-10 capsule by [facility] of 00:00: mouth at [place] [address] bedtime. [facility] terazosin 2 2021-0 Yes [id number] 2mg Take 1 [facility] mg capsule 5-10 capsule by [facility] of 00:00: mouth at [place] [address] bedtime. [facility] terazosin 2 0 Yes [id number] 2mg Take 1 [facility] mg capsule 5-10 capsule by [facility] of 00:00: mouth at [place] [address] bedtime. [facility] terazosin 2 0 Yes [id number] 2mg Take 1 [facility] mg capsule 5-10 capsule by [facility] of 00:00: mouth at [place] [address] bedtime. [facility] terazosin 2 0 Yes [id number] 2mg Take 1 [facility] mg capsule 5-10 capsule by [facility] of 00:00: mouth at [place] [address] bedtime. [facility] terazosin 2 0 Yes [id number] 2mg Take 1 [facility] mg capsule 5-10 capsule by [facility] of 00:00: mouth at [place] [address] bedtime. [facility] terazosin 2 Yes [id number] 2mg Take 1 [facility] mg capsule 5-10 capsule by [facility] of 00:00: mouth at [place] [address] bedtime. [facility] terazosin 2 Yes [id number] 2mg Take 1 [facility] mg capsule 5-10 capsule by [facility] of 00:00: mouth at [place] [address] bedtime. [facility] terazosin 2 0 Yes [id number] 2mg Take 1 [facility] mg capsule 5-10 capsule by [facility] of 00:00: mouth at [place] [address] bedtime. [facility] terazosin 2 0 Yes [id number] 2mg Take 1 [facility] mg capsule 5-10 capsule by [facility] of 00:00: mouth at [place] [address] bedtime. [facility] terazosin 2 0 Yes [id number] 2mg Take 1 [facility] mg capsule 5-10 capsule by [facility] of 00:00: mouth at [place] [address] bedtime. [facility] terazosin 2 0 Yes [id number] 2mg Take 1 [facility] mg capsule 5-10 capsule by [facility] of 00:00: mouth at [place] [address] bedtime. [facility] terazosin 2 0 Yes [id number] 2mg Take 1 [facility] mg capsule 5-10 capsule by [facility] of 00:00: mouth at [place] [address] bedtime. [facility] terazosin 2 0 Yes [id number] 2mg Take 1 [facility] mg capsule 5-10 capsule by [facility] of 00:00: mouth at [place] [address] bedtime. [facility] terazosin 2 2021-0 Yes [id number] 2mg Take 1 [facility] mg capsule 5-10 capsule by [facility] of 00:00: mouth at [place] [address] bedtime. [facility] terazosin 2 2021-0 Yes [id number] 2mg Take 1 [facility] mg capsule 5-10 capsule by [facility] of 00:00: mouth at [place] [address] bedtime. [facility] terazosin 2 2021-0 Yes [id number] 2mg Take 1 [facility] mg capsule 5-10 capsule by [facility] of 00:00: mouth at [place] [address] bedtime. [facility] terazosin 2 2021-0 Yes [id number] 2mg Take 1 [facility] mg capsule 5-10 capsule by [facility] of 00:00: mouth at [place] [address] bedtime. [facility] terazosin 2 0 Yes [id number] 2mg Take 1 [facility] mg capsule 5-10 capsule by [facility] of 00:00: mouth at [place] [address] bedtime. [facility] terazosin 2 0 Yes [id number] 2mg Take 1 [facility] mg capsule 5-10 capsule by [facility] of 00:00: mouth at [place] [address] bedtime. [facility] terazosin 2 0 Yes [id number] 2mg Take 1 [facility] mg capsule 5-10 capsule by [facility] of 00:00: mouth at [place] [address] bedtime. [facility] terazosin 2 0 Yes [id number] 2mg Take 1 [facility] mg capsule 5-10 capsule by [facility] of 00:00: mouth at [place] [address] bedtime. [facility] terazosin 2 2021-0 Yes [id number] 2mg Take 1 [facility] mg capsule 5-10 capsule by [facility] of 00:00: mouth at [place] [address] bedtime. [facility] terazosin 2 0 Yes [id number] 2mg Take 1 [facility] mg capsule 5-10 capsule by [facility] of 00:00: mouth at [place] [address] bedtime. [facility] terazosin 2 2021-0 Yes [id number] 2mg Take 1 [facility] mg capsule 5-10 capsule by [facility] of 00:00: mouth at [place] [address] bedtime. [facility] terazosin 2 2021-0 Yes [id number] 2mg Take 1 [facility] mg capsule 5-10 capsule by [facility] of 00:00: mouth at [place] [address] bedtime. [facility] terazosin 2 2021-0 Yes [id number] 2mg Take 1 [facility] mg capsule 5-10 capsule by [facility] of 00:00: mouth at [place] [address] bedtime. [facility] terazosin 2 0 Yes [id number] 2mg Take 1 [facility] mg capsule 5-10 capsule by [facility] of 00:00: mouth at [place] [address] bedtime. [facility] terazosin 2 0 Yes [id number] 2mg Take 1 [facility] mg capsule 5-10 capsule by [facility] of 00:00: mouth at [place] [address] bedtime. [facility] terazosin 2 0 Yes [id number] 2mg Take 1 [facility] mg capsule 5-10 capsule by [facility] of 00:00: mouth at [place] [address] bedtime. [facility] terazosin 2 0 Yes [id number] 2mg Take 1 [facility] mg capsule 5-10 capsule by [facility] of 00:00: mouth at [place] [address] bedtime. [facility] terazosin 2 Yes [id number] 2mg Take 1 [facility] mg capsule 5-10 capsule by [facility] of 00:00: mouth at [place] [address] bedtime. [facility] terazosin 2 Yes [id number] 2mg Take 1 [facility] mg capsule 5-10 capsule by [facility] of 00:00: mouth at [place] [address] bedtime. [facility] terazosin 2 0 Yes [id number] 2mg Take 1 [facility] mg capsule 5-10 capsule by [facility] 00:00: mouth at [place] [address] bedtime. [facility] terazosin 2 0 Yes [id number] 2mg Take 1 [facility] mg capsule 5-10 capsule by [facility] of 00:00: mouth at [place] [address] bedtime. [facility] terazosin 2 0 Yes [id number] 2mg Take 1 [facility] mg capsule 5-10 capsule by [facility] 00:00: mouth at [place] [address] bedtime. [facility] terazosin 2 0 Yes [id number] 2mg Take 1 [facility] mg capsule 5-10 capsule by [facility] 00:00: mouth at [place] [address] bedtime. [facility] terazosin 2 0 Yes [id number] 2mg Take 1 [facility] mg capsule 5-10 capsule by [facility] 00:00: mouth at [place] [address] bedtime. [facility] terazosin 2 0 Yes [id number] 2mg Take 1 [facility] mg capsule 5-10 capsule by [facility] 00:00: mouth at [place] [address] bedtime. [facility] terazosin 2 2021-0 Yes [id number] 2mg Take 1 [facility] mg capsule 5-10 capsule by [facility] 00:00: mouth at [place] [address] bedtime. [facility] terazosin 2 2021-0 Yes [id number] 2mg Take 1 [facility] mg capsule 5-10 capsule by [facility] 00:00: mouth at [place] [address] bedtime. [facility] terazosin 2 2021-0 Yes [id number] 2mg Take 1 [facility] mg capsule 5-10 capsule by [facility] of 00:00: mouth at [place] [address] bedtime. [facility] terazosin 2 2021-0 Yes [id number] 2mg Take 1 [facility] mg capsule 5-10 capsule by [facility] of 00:00: mouth at [place] [address] bedtime. [facility] terazosin 2 0 Yes [id number] 2mg Take 1 [facility] mg capsule 5-10 capsule by [facility] of 00:00: mouth at [place] [address] bedtime. [facility] terazosin 2 0 Yes [id number] 2mg Take 1 [facility] mg capsule 5-10 capsule by [facility] of 00:00: mouth at [place] [address] bedtime. [facility] terazosin 2 0 Yes [id number] 2mg Take 1 [facility] mg capsule 5-10 capsule by [facility] of 00:00: mouth at [place] [address] bedtime. [facility] terazosin 2 0 Yes [id number] 2mg Take 1 [facility] mg capsule 5-10 capsule by [facility] of 00:00: mouth at [place] [address] bedtime. [facility] terazosin 2 2021-0 Yes [id number] 2mg Take 1 [facility] mg capsule 5-10 capsule by [facility] of 00:00: mouth at [place] [address] bedtime. [facility] terazosin 2 0 Yes [id number] 2mg Take 1 [facility] mg capsule 5-10 capsule by [facility] of 00:00: mouth at [place] [address] bedtime. [facility] terazosin 2 2021-0 Yes [id number] 2mg Take 1 [facility] mg capsule 5-10 capsule by [facility] of 00:00: mouth at [place] [address] bedtime. [facility] terazosin 2 2021-0 Yes [id number] 2mg Take 1 [facility] mg capsule 5-10 capsule by [facility] of 00:00: mouth at [place] [address] bedtime. [facility] terazosin 2 2021-0 Yes [id number] 2mg Take 1 [facility] mg capsule 5-10 capsule by [facility] of 00:00: mouth at [place] [address] bedtime. [facility] terazosin 2 0 Yes [id number] 2mg Take 1 [facility] mg capsule 5-10 capsule by [facility] of 00:00: mouth at [place] [address] bedtime. [facility] terazosin 2 0 Yes [id number] 2mg Take 1 [facility] mg capsule 5-10 capsule by [facility] of 00:00: mouth at [place] [address] bedtime. [facility] terazosin 2 0 Yes [id number] 2mg Take 1 [facility] mg capsule 5-10 capsule by [facility] of 00:00: mouth at [place] [address] bedtime. [facility] terazosin 2 0 Yes [id number] 2mg Take 1 [facility] mg capsule 5-10 capsule by [facility] of 00:00: mouth at [place] [address] bedtime. [facility] terazosin 2 Yes [id number] 2mg Take 1 [facility] mg capsule 5-10 capsule by [facility] of 00:00: mouth at [place] [address] bedtime. [facility] terazosin 2 Yes [id number] 2mg Take 1 [facility] mg capsule 5-10 capsule by [facility] of 00:00: mouth at [place] [address] bedtime. [facility] terazosin 2 0 Yes [id number] 2mg Take 1 [facility] mg capsule 5-10 capsule by [facility] of 00:00: mouth at [place] [address] bedtime. [facility] terazosin 2 0 Yes [id number] 2mg Take 1 [facility] mg capsule 5-10 capsule by [facility] of 00:00: mouth at [place] [address] bedtime. [facility] terazosin 2 0 Yes [id number] 2mg Take 1 [facility] mg capsule 5-10 capsule by [facility] of 00:00: mouth at [place] [address] bedtime. [facility] terazosin 2 0 Yes [id number] 2mg Take 1 [facility] mg capsule 5-10 capsule by [facility] of 00:00: mouth at [place] [address] bedtime. [facility] terazosin 2 0 Yes [id number] 2mg Take 1 [facility] mg capsule 5-10 capsule by [facility] of 00:00: mouth at [place] [address] bedtime. [facility] terazosin 2 0 Yes [id number] 2mg Take 1 [facility] mg capsule 5-10 capsule by [facility] of 00:00: mouth at [place] [address] bedtime. [facility] terazosin 2 2021-0 Yes [id number] 2mg Take 1 [facility] mg capsule 5-10 capsule by [facility] of 00:00: mouth at [place] [address] bedtime. [facility] terazosin 2 2021-0 Yes [id number] 2mg Take 1 [facility] mg capsule 5-10 capsule by [facility] of 00:00: mouth at [place] [address] bedtime. [facility] terazosin 2 2021-0 Yes [id number] 2mg Take 1 [facility] mg capsule 5-10 capsule by [facility] of 00:00: mouth at [place] [address] bedtime. [facility] terazosin 2 2021-0 Yes [id number] 2mg Take 1 [facility] mg capsule 5-10 capsule by [facility] of 00:00: mouth at [place] [address] bedtime. [facility] terazosin 2 2021-0 Yes [id number] 2mg Take 1 [facility] mg capsule 5-10 capsule by [facility] of 00:00: mouth at [place] [address] bedtime. [facility] terazosin 2 2021-0 Yes [id number] 2mg Take 1 [facility] mg capsule 5-10 capsule by [facility] of 00:00: mouth at [place] [address] bedtime. [facility] terazosin 2 2021-0 Yes [id number] 2mg Take 1 [facility] mg capsule 5-10 capsule by [facility] of 00:00: mouth at [place] [address] bedtime. [facility] terazosin 2 2021-0 Yes [id number] 2mg Take 1 [facility] mg capsule 5-10 capsule by [facility] of 00:00: mouth at [place] [address] bedtime. [facility] terazosin 2 2021-0 Yes [id number] 2mg Take 1 [facility] mg capsule 5-10 capsule by [facility] of 00:00: mouth at [place] [address] bedtime. [facility] terazosin 2 2021-0 Yes [id number] 2mg Take 1 [facility] mg capsule 5-10 capsule by [facility] of 00:00: mouth at [place] [address] bedtime. [facility] terazosin 2 2021-0 2022- No [id number] 2mg Take 1 [facility] mg capsule 5-10 04-02 capsule by it y of 00:00: 00:00 mouth at [place] 00 :00 bedtime. [facility] terazosin 2 2021-0 2022- No [id number] 2mg Take 1 [facility] mg capsule 5-10 04-02 capsule by it y of 00:00: 00:00 mouth at [place] 00 :00 bedtime. [facility] amitriptyli 2021-3- No 25mg Take 25 mg [facility] ne 50 mg 02-14-12 by mouth ity of tablet 00:00: 04:59 at [place] 00 :00 bedtime. [facility] amitriptyli 2021-3- No 25mg Take 25 mg [facility] ne 50 mg -09 09-12 by mouth ity of tablet 00:00: 04:59 at [place] 00 :00 bedtime. [facility] amitriptyli 2021-3- No 25mg Take 25 mg [facility] ne 50 mg 02-14-12 by mouth ity of tablet 00:00: 04:59 at [place] 00 :00 bedtime. [facility] amitriptyli 2021-3- No 25mg Take 25 mg [facility] ne 50 mg 4-09 09-12 by mouth ity of tablet 00:00: 04:59 at [place] 00 :00 bedtime. [facility] amitriptyli 2021-3- No 25mg Take 25 mg [facility] ne 50 mg 02-14-12 by mouth ity of tablet 00:00: 04:59 at [place] 00 :00 bedtime. [facility] amitriptyli 2021-3- No 25mg Take 25 mg [facility] ne 50 mg 02-14-12 by mouth ity of tablet 00:00: 04:59 at [place] 00 :00 bedtime. [facility] amitriptyli 2021-3- No 25mg Take 25 mg [facility] ne 50 mg 02-14-12 by mouth ity of tablet 00:00: 04:59 at [place] 00 :00 bedtime. [facility] amitriptyli 2021-3- No 25mg Take 25 mg [facility] ne 50 mg -09 09-12 by mouth ity of tablet 00:00: 04:59 at [place] 00 :00 bedtime. [facility] amitriptyli 2021-0 3- No 25mg Take 25 mg [facility] ne 50 mg 4- 04-12 by mouth ity of tablet 00:00: 04:59 at [place] 00 :00 bedtime. [facility] amitriptyli 2021-0 3- No 25mg Take 25 mg [facility] ne 50 mg 4- 04-12 by mouth ity of tablet 00:00: 04:59 at [place] 00 :00 bedtime. [facility] amitriptyli 2022- No 25mg Take 25 mg [facility] ne 50 mg 02-14-12 by mouth ity of tablet 00:00: 04:59 at [place] 00 :00 bedtime. [facility] amitriptyli 2022- No 25mg Take 25 mg [facility] ne 50 mg 02-14-12 by mouth ity of tablet 00:00: 04:59 at [place] 00 :00 bedtime. [facility] amitriptyli 2022- No 25mg Take 25 mg [facility] ne 50 mg 02-14-12 by mouth ity of tablet 00:00: 04:59 at [place] 00 :00 bedtime. [facility] amitriptyli 2022- No 25mg Take 25 mg [facility] ne 50 mg 02-14-12 by mouth ity of tablet 00:00: 04:59 at [place] 00 :00 bedtime. [facility] amitriptyli 2021- No 25mg Take 25 mg [facility] ne 50 mg 4-11 10-20 by mouth ity of tablet 00:00: 00:00 at [place] 00 :00 bedtime. [facility] amitriptyli 2021- No 25mg Take 25 mg [facility] ne 50 mg 4-11 10-20 by mouth ity of tablet 00:00: 00:00 at [place] 00 :00 bedtime. [facility] ERGOCALCIFE 2021-0 Yes [id number] Take 1 [facility] ROL, 3-18 capsule by ity of VITAMIN D2, 00:00: mouth once [place] 1,250 mcg 00 a week [facility] (50,000 Branch unit) capsule ERGOCALCIFE 2022-0 Yes [id number] Take 1 [facility] ROL, 3-18 capsule by ity of VITAMIN D2, 00:00: mouth once [place] 1,250 mcg 00 a week Medical (50,000 Branch unit) capsule ERGOCALCIFE 2022-0 Yes [id number] Take 1 [facility] ROL, 3-18 capsule by ity of VITAMIN D2, 00:00: mouth once [place] 1,250 mcg 00 a week Medical (50,000 Branch unit) capsule ERGOCALCIFE 2-0 Yes [id number] Take 1 [facility] ROL, 3-18 capsule by ity of VITAMIN D2, 00:00: mouth once [place] 1,250 mcg 00 a week Medical (50,000 Branch unit) capsule ERGOCALCIFE 2022-0 Yes [id number] Take 1 [facility] ROL, 3-18 capsule by ity of VITAMIN D2, 00:00: mouth once [place] 1,250 mcg 00 a week Medical (50,000 Branch unit) capsule ERGOCALCIFE 2022-0 Yes [id number] Take 1 [facility] ROL, 3-18 capsule by ity of VITAMIN D2, 00:00: mouth once [place] 1,250 mcg 00 a week Medical (50,000 Branch unit) capsule ERGOCALCIFE 2022-0 Yes [id number] Take 1 [facility] ROL, 3-18 capsule by ity of VITAMIN D2, 00:00: mouth once [place] 1,250 mcg 00 a week Medical (50,000 Branch unit) capsule ERGOCALCIFE 2022-0 Yes [id number] Take 1 [facility] ROL, 3-18 capsule by ity of VITAMIN D2, 00:00: mouth once [place] 1,250 mcg 00 a week Medical (50,000 Branch unit) capsule ERGOCALCIFE 2022-0 Yes [id number] Take 1 [facility] ROL, 3-18 capsule by ity of VITAMIN D2, 00:00: mouth once [place] 1,250 mcg 00 a week Medical (50,000 Branch unit) capsule ERGOCALCIFE 2022-0 Yes [id number] Take 1 [facility] ROL, 3-18 capsule by ity of VITAMIN D2, 00:00: mouth once [place] 1,250 mcg 00 a week Medical (50,000 Branch unit) capsule ERGOCALCIFE 2022-0 Yes [id number] Take 1 [facility] ROL, 3-18 capsule by ity of VITAMIN D2, 00:00: mouth once [place] 1,250 mcg 00 a week Medical (50,000 Branch unit) capsule ERGOCALCIFE 2022-0 Yes [id number] Take 1 [facility] ROL, 3-18 capsule by ity of VITAMIN D2, 00:00: mouth once [place] 1,250 mcg 00 a week Medical (50,000 Branch unit) capsule ERGOCALCIFE 2022-0 Yes [id number] Take 1 [facility] ROL, 3-18 capsule by ity of VITAMIN D2, 00:00: mouth once [place] 1,250 mcg 00 a week Medical (50,000 Branch unit) capsule ERGOCALCIFE 2022-0 Yes [id number] Take 1 [facility] ROL, 3-18 capsule by ity of VITAMIN D2, 00:00: mouth once [place] 1,250 mcg 00 a week Medical (50,000 Branch unit) capsule ERGOCALCIFE 2022-0 Yes [id number] Take 1 [facility] ROL, 3-18 capsule by ity of VITAMIN D2, 00:00: mouth once [place] 1,250 mcg 00 a week Medical (50,000 Branch unit) capsule ERGOCALCIFE 2022-0 Yes [id number] Take 1 [facility] ROL, 3-18 capsule by ity of VITAMIN D2, 00:00: mouth once [place] 1,250 mcg 00 a week Medical (50,000 Branch unit) capsule ERGOCALCIFE 2022-0 Yes [id number] Take 1 [facility] ROL, 3-18 capsule by ity of VITAMIN D2, 00:00: mouth once [place] 1,250 mcg 00 a week Medical (50,000 Branch unit) capsule ERGOCALCIFE 2022-0 Yes [id number] Take 1 [facility] ROL, 3-18 capsule by ity of VITAMIN D2, 00:00: mouth once [place] 1,250 mcg 00 a week Medical (50,000 Branch unit) capsule ERGOCALCIFE 2022-0 Yes [id number] Take 1 [facility] ROL, 3-18 capsule by ity of VITAMIN D2, 00:00: mouth once [place] 1,250 mcg 00 a week Medical (50,000 Branch unit) capsule ERGOCALCIFE 2022-0 Yes [id number] Take 1 [facility] ROL, 3-18 capsule by ity of VITAMIN D2, 00:00: mouth once [place] 1,250 mcg 00 a week Medical (50,000 Branch unit) capsule ERGOCALCIFE 2022-0 Yes [id number] Take 1 [facility] ROL, 3-18 capsule by ity of VITAMIN D2, 00:00: mouth once [place] 1,250 mcg 00 a week Medical (50,000 Branch unit) capsule ERGOCALCIFE 2022-0 Yes [id number] Take 1 [facility] ROL, 3-18 capsule by ity of VITAMIN D2, 00:00: mouth once [place] 1,250 mcg 00 a week Medical (50,000 Branch unit) capsule ERGOCALCIFE 2022-0 Yes [id number] Take 1 [facility] ROL, 3-18 capsule by ity of VITAMIN D2, 00:00: mouth once [place] 1,250 mcg 00 a week Medical (50,000 Branch unit) capsule ERGOCALCIFE 2022-0 Yes [id number] Take 1 [facility] ROL, 3-18 capsule by ity of VITAMIN D2, 00:00: mouth once [place] 1,250 mcg 00 a week Medical (50,000 Branch unit) capsule ERGOCALCIFE 2022-0 Yes [id number] Take 1 [facility] ROL, 3-18 capsule by ity of VITAMIN D2, 00:00: mouth once [place] 1,250 mcg 00 a week Medical (50,000 Branch unit) capsule ERGOCALCIFE 2022-0 Yes [id number] Take 1 [facility] ROL, 3-18 capsule by ity of VITAMIN D2, 00:00: mouth once [place] 1,250 mcg 00 a week Medical (50,000 Branch unit) capsule ERGOCALCIFE 2022-0 Yes [id number] Take 1 [facility] ROL, 3-18 capsule by ity of VITAMIN D2, 00:00: mouth once [place] 1,250 mcg 00 a week Medical (50,000 Branch unit) capsule ERGOCALCIFE 2022-0 Yes [id number] Take 1 [facility] ROL, 3-18 capsule by ity of VITAMIN D2, 00:00: mouth once [place] 1,250 mcg 00 a week Medical (50,000 Branch unit) capsule ERGOCALCIFE 2022-0 Yes [id number] Take 1 [facility] ROL, 3-18 capsule by ity of VITAMIN D2, 00:00: mouth once [place] 1,250 mcg 00 a week Medical (50,000 Branch unit) capsule ERGOCALCIFE 2022-0 Yes [id number] Take 1 [facility] ROL, 3-18 capsule by ity of VITAMIN D2, 00:00: mouth once [place] 1,250 mcg 00 a week Medical (50,000 Branch unit) capsule ERGOCALCIFE 2022-0 Yes [id number] Take 1 [facility] ROL, 3-18 capsule by ity of VITAMIN D2, 00:00: mouth once [place] 1,250 mcg 00 a week Medical (50,000 Branch unit) capsule ERGOCALCIFE 2022-0 Yes [id number] Take 1 [facility] ROL, 3-18 capsule by ity of VITAMIN D2, 00:00: mouth once [place] 1,250 mcg 00 a week Medical (50,000 Branch unit) capsule ERGOCALCIFE 2022-0 Yes [id number] Take 1 [facility] ROL, 3-18 capsule by ity of VITAMIN D2, 00:00: mouth once [place] 1,250 mcg 00 a week Medical (50,000 Branch unit) capsule ERGOCALCIFE 2022-0 Yes [id number] Take 1 [facility] ROL, 3-18 capsule by ity of VITAMIN D2, 00:00: mouth once [place] 1,250 mcg 00 a week Medical (50,000 Branch unit) capsule ERGOCALCIFE 2022-0 Yes [id number] Take 1 [facility] ROL, 3-18 capsule by ity of VITAMIN D2, 00:00: mouth once [place] 1,250 mcg 00 a week Medical (50,000 Branch unit) capsule ERGOCALCIFE 2022-0 Yes [id number] Take 1 [facility] ROL, 3-18 capsule by ity of VITAMIN D2, 00:00: mouth once [place] 1,250 mcg 00 a week Medical (50,000 Branch unit) capsule ERGOCALCIFE 2022-0 Yes [id number] Take 1 [facility] ROL, 3-18 capsule by ity of VITAMIN D2, 00:00: mouth once [place] 1,250 mcg 00 a week Medical (50,000 Branch unit) capsule ERGOCALCIFE 2022-0 Yes [id number] Take 1 [facility] ROL, 3-18 capsule by ity of VITAMIN D2, 00:00: mouth once [place] 1,250 mcg 00 a week Medical (50,000 Branch unit) capsule ERGOCALCIFE 2022-0 Yes [id number] Take 1 [facility] ROL, 3-18 capsule by ity of VITAMIN D2, 00:00: mouth once [place] 1,250 mcg 00 a week Medical (50,000 Branch unit) capsule ERGOCALCIFE 2022-0 Yes [id number] Take 1 [facility] ROL, 3-18 capsule by ity of VITAMIN D2, 00:00: mouth once [place] 1,250 mcg 00 a week Medical (50,000 Branch unit) capsule ERGOCALCIFE 2022-0 Yes [id number] Take 1 [facility] ROL, 3-18 capsule by ity of VITAMIN D2, 00:00: mouth once [place] 1,250 mcg 00 a week Medical (50,000 Branch unit) capsule ERGOCALCIFE 2022-0 Yes [id number] Take 1 [facility] ROL, 3-18 capsule by ity of VITAMIN D2, 00:00: mouth once [place] 1,250 mcg 00 a week Medical (50,000 Branch unit) capsule ERGOCALCIFE 2022-0 Yes [id number] Take 1 [facility] ROL, 3-18 capsule by ity of VITAMIN D2, 00:00: mouth once [place] 1,250 mcg 00 a week Medical (50,000 Branch unit) capsule ERGOCALCIFE 2022-0 Yes [id number] Take 1 [facility] ROL, 3-18 capsule by ity of VITAMIN D2, 00:00: mouth once [place] 1,250 mcg 00 a week Medical (50,000 Branch unit) capsule ERGOCALCIFE 2022-0 Yes [id number] Take 1 [facility] ROL, 3-18 capsule by ity of VITAMIN D2, 00:00: mouth once [place] 1,250 mcg 00 a week Medical (50,000 Branch unit) capsule ERGOCALCIFE 2022-0 Yes [id number] Take 1 [facility] ROL, 3-18 capsule by ity of VITAMIN D2, 00:00: mouth once [place] 1,250 mcg 00 a week Medical (50,000 Branch unit) capsule ERGOCALCIFE 2022-0 Yes [id number] Take 1 [facility] ROL, 3-18 capsule by ity of VITAMIN D2, 00:00: mouth once [place] 1,250 mcg 00 a week Medical (50,000 Branch unit) capsule ERGOCALCIFE 2022-0 Yes [id number] Take 1 [facility] ROL, 3-18 capsule by ity of VITAMIN D2, 00:00: mouth once [place] 1,250 mcg 00 a week Medical (50,000 Branch unit) capsule ERGOCALCIFE 2022-0 Yes [id number] Take 1 [facility] ROL, 3-18 capsule by ity of VITAMIN D2, 00:00: mouth once [place] 1,250 mcg 00 a week Medical (50,000 Branch unit) capsule ERGOCALCIFE 2022-0 Yes [id number] Take 1 [facility], 3-18 capsule by [facility] of VITAMIN D2, 00:00: mouth once [place] 1,250 mcg 00 a week Medical (50,000 Branch unit) capsule ERGOCALCIFE 2022-0 Yes [id number] Take 1 [facility], 3-18 capsule by [facility]y of VITAMIN D2, 00:00: mouth once [place] 1,250 mcg 00 a week Medical (50,000 Branch unit) capsule ERGOCALCIFE 2022-0 Yes [id number] Take 1 [facility], 3-18 capsule by ity of VITAMIN D2, 00:00: mouth once [place] 1,250 mcg 00 a week Medical (50,000 Branch unit) capsule ERGOCALCIFE 2022-0 Yes [id number] Take 1 [facility], 3-18 capsule by ity of VITAMIN D2, 00:00: mouth once [place] 1,250 mcg 00 a week Medical (50,000 Branch unit) capsule ERGOCALCIFE 2022-0 Yes [id number] Take 1 [facility], 3-18 capsule by [facility]y of VITAMIN D2, 00:00: mouth once [place] 1,250 mcg 00 a week Medical (50,000 Branch unit) capsule ERGOCALCIFE 2022-0 Yes [id number] Take 1 [facility], 3-18 capsule by [facility]y of VITAMIN D2, 00:00: mouth once [place] 1,250 mcg 00 a week Medical (50,000 Branch unit) capsule ERGOCALCIFE 2022-0 Yes [id number] Take 1 [facility], 3-18 capsule by [facility]y of VITAMIN D2, 00:00: mouth once [place] 1,250 mcg 00 a week Medical (50,000 Branch unit) capsule ERGOCALCIFE 2022-0 Yes [id number] Take 1 [facility], 3-18 capsule by ity of VITAMIN D2, 00:00: mouth once [place] 1,250 mcg 00 a week Medical (50,000 Branch unit) capsule ERGOCALCIFE 2022-0 Yes [id number] Take 1 [facility], 3-18 capsule by [facility]y of VITAMIN D2, 00:00: mouth once [place] 1,250 mcg 00 a week Medical (50,000 Branch unit) capsule ERGOCALCIFE 2022-0 Yes [id number] Take 1 [facility], 3-18 capsule by ity of VITAMIN D2, 00:00: mouth once [place] 1,250 mcg 00 a week Medical (50,000 Branch unit) capsule ERGOCALCIFE 2022-0 Yes [id number] Take 1 [facility], 3-18 capsule by ity of VITAMIN D2, 00:00: mouth once [place] 1,250 mcg 00 a week Medical (50,000 Branch unit) capsule ERGOCALCIFE 2022-0 Yes [id number] Take 1 [facility], 3-18 capsule by ity of VITAMIN D2, 00:00: mouth once [place] 1,250 mcg 00 a week Medical (50,000 Branch unit) capsule ERGOCALCIFE 2022-0 Yes [id number] Take 1 [facility], 3-18 capsule by [facility]y of VITAMIN D2, 00:00: mouth once [place] 1,250 mcg 00 a week Medical (50,000 Branch unit) capsule ERGOCALCIFE 2022-0 Yes [id number] Take 1 [facility], 3-18 capsule by [facility]y of VITAMIN D2, 00:00: mouth once [place] 1,250 mcg 00 a week Medical (50,000 Branch unit) capsule ERGOCALCIFE 2022-0 Yes [id number] Take 1 [facility], 3-18 capsule by [facility]y of VITAMIN D2, 00:00: mouth once [place] 1,250 mcg 00 a week Medical (50,000 Branch unit) capsule ERGOCALCIFE 2022-0 Yes [id number] Take 1 [facility], 3-18 capsule by ity of VITAMIN D2, 00:00: mouth once [place] 1,250 mcg 00 a week Medical (50,000 Branch unit) capsule ERGOCALCIFE 2022-0 Yes [id number] Take 1 [facility], 3-18 capsule by ity of VITAMIN D2, 00:00: mouth once [place] 1,250 mcg 00 a week Medical (50,000 Branch unit) capsule ERGOCALCIFE 2022-0 Yes [id number] Take 1 [facility], 3-18 capsule by ity of VITAMIN D2, 00:00: mouth once [place] 1,250 mcg 00 a week Medical (50,000 Branch unit) capsule ERGOCALCIFE 2022-0 Yes [id number] Take 1 [facility], 3-18 capsule by ity of VITAMIN D2, 00:00: mouth once [place] 1,250 mcg 00 a week Medical (50,000 Branch unit) capsule ERGOCALCIFE 2022-0 Yes [id number] Take 1 [facility], 3-18 capsule by ity of VITAMIN D2, 00:00: mouth once [place] 1,250 mcg 00 a week Medical (50,000 Branch unit) capsule ERGOCALCIFE 2022-0 Yes [id number] Take 1 [facility], 3-18 capsule by ity of VITAMIN D2, 00:00: mouth once [place] 1,250 mcg 00 a week Medical (50,000 Branch unit) capsule ERGOCALCIFE 2022-0 Yes [id number] Take 1 [facility], 3-18 capsule by ity of VITAMIN D2, 00:00: mouth once [place] 1,250 mcg 00 a week Medical (50,000 Branch unit) capsule ERGOCALCIFE 2022-0 Yes [id number] Take 1 [facility], 3-18 capsule by ity of VITAMIN D2, 00:00: mouth once [place] 1,250 mcg 00 a week Medical (50,000 Branch unit) capsule ERGOCALCIFE 2022-0 Yes [id number] Take 1 [facility], 3-18 capsule by ity of VITAMIN D2, 00:00: mouth once [place] 1,250 mcg 00 a week Medical (50,000 Branch unit) capsule ERGOCALCIFE 2022-0 Yes [id number] Take 1 [facility], 3-18 capsule by ity of VITAMIN D2, 00:00: mouth once [place] 1,250 mcg 00 a week Medical (50,000 Branch unit) capsule ERGOCALCIFE 2022-0 Yes [id number] Take 1 [facility], 3-18 capsule by ity of VITAMIN D2, 00:00: mouth once [place] 1,250 mcg 00 a week Medical (50,000 Branch unit) capsule ERGOCALCIFE 2022-0 Yes [id number] Take 1 [facility], 3-18 capsule by [facility]y of VITAMIN D2, 00:00: mouth once [place] 1,250 mcg 00 a week Medical (50,000 Branch unit) capsule ERGOCALCIFE 2022-0 Yes [id number] Take 1 [facility], 3-18 capsule by ity of VITAMIN D2, 00:00: mouth once [place] 1,250 mcg 00 a week Medical (50,000 Branch unit) capsule ERGOCALCIFE 2022-0 Yes [id number] Take 1 [facility], 3-18 capsule by ity of VITAMIN D2, 00:00: mouth once [place] 1,250 mcg 00 a week Medical (50,000 Branch unit) capsule ERGOCALCIFE 2022-0 Yes [id number] Take 1 [facility], 3-18 capsule by ity of VITAMIN D2, 00:00: mouth once [place] 1,250 mcg 00 a week Medical (50,000 Branch unit) capsule ERGOCALCIFE 2022-0 Yes [id number] Take 1 [facility], 3-18 capsule by ity of VITAMIN D2, 00:00: mouth once [place] 1,250 mcg 00 a week Medical (50,000 Branch unit) capsule ERGOCALCIFE 2022-0 Yes [id number] Take 1 [facility], 3-18 capsule by ity of VITAMIN D2, 00:00: mouth once [place] 1,250 mcg 00 a week Medical (50,000 Branch unit) capsule ERGOCALCIFE 2022-0 Yes [id number] Take 1 [facility], 3-18 capsule by ity of VITAMIN D2, 00:00: mouth once [place] 1,250 mcg 00 a week Medical (50,000 Branch unit) capsule ERGOCALCIFE 2022-0 Yes [id number] Take 1 [facility], 3-18 capsule by ity of VITAMIN D2, 00:00: mouth once [place] 1,250 mcg 00 a week Medical (50,000 Branch unit) capsule ERGOCALCIFE 2022-0 Yes [id number] Take 1 [facility], 3-18 capsule by ity of VITAMIN D2, 00:00: mouth once [place] 1,250 mcg 00 a week Medical (50,000 Branch unit) capsule ERGOCALCIFE 2022-0 Yes [id number] Take 1 [facility], 3-18 capsule by ity of VITAMIN D2, 00:00: mouth once [place] 1,250 mcg 00 a week Medical (50,000 Branch unit) capsule ERGOCALCIFE 2022-0 Yes [id number] Take 1 [facility], 3-18 capsule by [facility]y of VITAMIN D2, 00:00: mouth once [place] 1,250 mcg 00 a week Medical (50,000 Branch unit) capsule ERGOCALCIFE 2022-0 Yes [id number] Take 1 [facility], 3-18 capsule by ity of VITAMIN D2, 00:00: mouth once [place] 1,250 mcg 00 a week Medical (50,000 Branch unit) capsule ERGOCALCIFE 2022-0 Yes [id number] Take 1 [facility], 3-18 capsule by [facility]y of VITAMIN D2, 00:00: mouth once [place] 1,250 mcg 00 a week Medical (50,000 Branch unit) capsule ERGOCALCIFE 2022-0 Yes [id number] Take 1 [facility], 3-18 capsule by [facility]y of VITAMIN D2, 00:00: mouth once [place] 1,250 mcg 00 a week Medical (50,000 Branch unit) capsule ERGOCALCIFE 2022-0 Yes [id number] Take 1 [facility], 3-18 capsule by ity of VITAMIN D2, 00:00: mouth once [place] 1,250 mcg 00 a week Medical (50,000 Branch unit) capsule ERGOCALCIFE 2022-0 Yes [id number] Take 1 [facility], 3-18 capsule by ity of VITAMIN D2, 00:00: mouth once [place] 1,250 mcg 00 a week Medical (50,000 Branch unit) capsule ERGOCALCIFE 2022-0 Yes [id number] Take 1 [facility], 3-18 capsule by [facility]y of VITAMIN D2, 00:00: mouth once [place] 1,250 mcg 00 a week Medical (50,000 Branch unit) capsule ERGOCALCIFE 2022-0 Yes [id number] Take 1 [facility], 3-18 capsule by ity of VITAMIN D2, 00:00: mouth once [place] 1,250 mcg 00 a week Medical (50,000 Branch unit) capsule ERGOCALCIFE 2022-0 Yes [id number] Take 1 [facility], 3-18 capsule by ity of VITAMIN D2, 00:00: mouth once [place] 1,250 mcg 00 a week Medical (50,000 Branch unit) capsule ERGOCALCIFE 2022-0 Yes [id number] Take 1 [facility], 3-18 capsule by ity of VITAMIN D2, 00:00: mouth once [place] 1,250 mcg 00 a week Medical (50,000 Branch unit) capsule ERGOCALCIFE 2022-0 Yes [id number] Take 1 [facility], 3-18 capsule by ity of VITAMIN D2, 00:00: mouth once [place] 1,250 mcg 00 a week Medical (50,000 Branch unit) capsule ERGOCALCIFE 2022-0 Yes [id number] Take 1 [facility], 3-18 capsule by ity of VITAMIN D2, 00:00: mouth once [place] 1,250 mcg 00 a week Medical (50,000 Branch unit) capsule ERGOCALCIFE 2022-0 Yes [id number] Take 1 [facility], 3-18 capsule by ity of VITAMIN D2, 00:00: mouth once [place] 1,250 mcg 00 a week Medical (50,000 Branch unit) capsule ERGOCALCIFE 2022-0 Yes [id number] Take 1 [facility], 3-18 capsule by ity of VITAMIN D2, 00:00: mouth once [place] 1,250 mcg 00 a week Medical (50,000 Branch unit) capsule ERGOCALCIFE 2022-0 Yes [id number] Take 1 [facility], 3-18 capsule by ity of VITAMIN D2, 00:00: mouth once [place] 1,250 mcg 00 a week Medical (50,000 Branch unit) capsule ERGOCALCIFE 2022-0 Yes [id number] Take 1 [facility], 3-18 capsule by ity of VITAMIN D2, 00:00: mouth once [place] 1,250 mcg 00 a week Medical (50,000 Branch unit) capsule ERGOCALCIFE 2022-0 Yes [id number] Take 1 [facility], 3-18 capsule by ity of VITAMIN D2, 00:00: mouth once [place] 1,250 mcg 00 a week Medical (50,000 Branch unit) capsule ERGOCALCIFE 2022-0 Yes [id number] Take 1 [facility], 3-18 capsule by ity of VITAMIN D2, 00:00: mouth once [place] 1,250 mcg 00 a week Medical (50,000 Branch unit) capsule ERGOCALCIFE 2022-0 Yes [id number] Take 1 [facility], 3-18 capsule by ity of VITAMIN D2, 00:00: mouth once [place] 1,250 mcg 00 a week Medical (50,000 Branch unit) capsule ERGOCALCIFE 2022-0 Yes [id number] Take 1 [facility], 3-18 capsule by ity of VITAMIN D2, 00:00: mouth once [place] 1,250 mcg 00 a week Medical (50,000 Branch unit) capsule ERGOCALCIFE 2022-0 Yes [id number] Take 1 [facility], 3-18 capsule by ity of VITAMIN D2, 00:00: mouth once [place] 1,250 mcg 00 a week Medical (50,000 Branch unit) capsule ERGOCALCIFE 2022-0 Yes [id number] Take 1 [facility], 3-18 capsule by ity of VITAMIN D2, 00:00: mouth once [place] 1,250 mcg 00 a week Medical (50,000 Branch unit) capsule ERGOCALCIFE 2022-0 Yes [id number] Take 1 [facility], 3-18 capsule by ity of VITAMIN D2, 00:00: mouth once [place] 1,250 mcg 00 a week Medical (50,000 Branch unit) capsule ERGOCALCIFE 2022-0 Yes [id number] Take 1 [facility], 3-18 capsule by ity of VITAMIN D2, 00:00: mouth once [place] 1,250 mcg 00 a week Medical (50,000 Branch unit) capsule ERGOCALCIFE 2022-0 Yes [id number] Take 1 [facility], 3-18 capsule by ity of VITAMIN D2, 00:00: mouth once [place] 1,250 mcg 00 a week Medical (50,000 Branch unit) capsule ERGOCALCIFE 2022-0 Yes [id number] Take 1 [facility], 3-18 capsule by ity of VITAMIN D2, 00:00: mouth once [place] 1,250 mcg 00 a week Medical (50,000 Branch unit) capsule ERGOCALCIFE 2022-0 Yes [id number] Take 1 [facility], 3-18 capsule by ity of VITAMIN D2, 00:00: mouth once [place] 1,250 mcg 00 a week Medical (50,000 Branch unit) capsule ERGOCALCIFE 2022-0 Yes [id number] Take 1 [facility], 3-18 capsule by ity of VITAMIN D2, 00:00: mouth once [place] 1,250 mcg 00 a week Medical (50,000 Branch unit) capsule ERGOCALCIFE 2022-0 Yes [id number] Take 1 [facility], 3-18 capsule by ity of VITAMIN D2, 00:00: mouth once [place] 1,250 mcg 00 a week Medical (50,000 Branch unit) capsule ERGOCALCIFE 2022-0 Yes [id number] Take 1 [facility], 3-18 capsule by ity of VITAMIN D2, 00:00: mouth once [place] 1,250 mcg 00 a week Medical (50,000 Branch unit) capsule ERGOCALCIFE 2022-0 Yes [id number] Take 1 [facility], 3-18 capsule by ity of VITAMIN D2, 00:00: mouth once [place] 1,250 mcg 00 a week Medical (50,000 Branch unit) capsule ERGOCALCIFE 2022-0 Yes [id number] Take 1 [facility], 3-18 capsule by ity of VITAMIN D2, 00:00: mouth once [place] 1,250 mcg 00 a week Medical (50,000 Branch unit) capsule ERGOCALCIFE 2022-0 Yes [id number] Take 1 [facility], 3-18 capsule by ity of VITAMIN D2, 00:00: mouth once [place] 1,250 mcg 00 a week Medical (50,000 Branch unit) capsule ERGOCALCIFE 2022-0 Yes [id number] Take 1 [facility], 3-18 capsule by ity of VITAMIN D2, 00:00: mouth once [place] 1,250 mcg 00 a week Medical (50,000 Branch unit) capsule ERGOCALCIFE 2022-0 Yes [id number] Take 1 [facility], 3-18 capsule by ity of VITAMIN D2, 00:00: mouth once [place] 1,250 mcg 00 a week Medical (50,000 Branch unit) capsule ERGOCALCIFE 2022-0 Yes [id number] Take 1 [facility], 3-18 capsule by ity of VITAMIN D2, 00:00: mouth once [place] 1,250 mcg 00 a week Medical (50,000 Branch unit) capsule ERGOCALCIFE 2022-0 Yes [id number] Take 1 [facility], 3-18 capsule by ity of VITAMIN D2, 00:00: mouth once [place] 1,250 mcg 00 a week Medical (50,000 Branch unit) capsule ERGOCALCIFE 2022-0 Yes [id number] Take 1 [facility], 3-18 capsule by ity of VITAMIN D2, 00:00: mouth once [place] 1,250 mcg 00 a week Medical (50,000 Branch unit) capsule ERGOCALCIFE 2022-0 Yes [id number] Take 1 [facility], 3-18 capsule by ity of VITAMIN D2, 00:00: mouth once [place] 1,250 mcg 00 a week Medical (50,000 Branch unit) capsule ERGOCALCIFE 2022-0 Yes [id number] Take 1 [facility], 3-18 capsule by ity of VITAMIN D2, 00:00: mouth once [place] 1,250 mcg 00 a week Medical (50,000 Branch unit) capsule ERGOCALCIFE 2022-0 Yes [id number] Take 1 [facility], 3-18 capsule by ity of VITAMIN D2, 00:00: mouth once [place] 1,250 mcg 00 a week Medical (50,000 Branch unit) capsule ERGOCALCIFE 2022-0 Yes [id number] Take 1 [facility], 3-18 capsule by ity of VITAMIN D2, 00:00: mouth once [place] 1,250 mcg 00 a week Medical (50,000 Branch unit) capsule ERGOCALCIFE 2022-0 Yes [id number] Take 1 [facility], 3-18 capsule by ity of VITAMIN D2, 00:00: mouth once [place] 1,250 mcg 00 a week Medical (50,000 Branch unit) capsule ERGOCALCIFE 2022-0 Yes [id number] Take 1 [facility], 3-18 capsule by ity of VITAMIN D2, 00:00: mouth once [place] 1,250 mcg 00 a week Medical (50,000 Branch unit) capsule ERGOCALCIFE 2022-0 Yes [id number] Take 1 [facility], 3-18 capsule by ity of VITAMIN D2, 00:00: mouth once [place] 1,250 mcg 00 a week Medical (50,000 Branch unit) capsule ERGOCALCIFE 2022-0 Yes [id number] Take 1 [facility], 3-18 capsule by ity of VITAMIN D2, 00:00: mouth once [place] 1,250 mcg 00 a week Medical (50,000 Branch unit) capsule ERGOCALCIFE 2022-0 Yes [id number] Take 1 [facility], 3-18 capsule by ity of VITAMIN D2, 00:00: mouth once [place] 1,250 mcg 00 a week Medical (50,000 Branch unit) capsule ERGOCALCIFE 2022-0 Yes [id number] Take 1 [facility], 3-18 capsule by ity of VITAMIN D2, 00:00: mouth once [place] 1,250 mcg 00 a week Medical (50,000 Branch unit) capsule ERGOCALCIFE 2022-0 Yes [id number] Take 1 [facility], 3-18 capsule by ity of VITAMIN D2, 00:00: mouth once [place] 1,250 mcg 00 a week Medical (50,000 Branch unit) capsule ERGOCALCIFE 2022-0 Yes [id number] Take 1 [facility], 3-18 capsule by ity of VITAMIN D2, 00:00: mouth once [place] 1,250 mcg 00 a week Medical (50,000 Branch unit) capsule ERGOCALCIFE 2022-0 Yes [id number] Take 1 [facility], 3-18 capsule by ity of VITAMIN D2, 00:00: mouth once [place] 1,250 mcg 00 a week Medical (50,000 Branch unit) capsule ERGOCALCIFE 2022-0 2023- No [id number] Take 1 [facility], 3-18 04-10 capsule by ity of VITAMIN D2, 00:00: 00:00 mouth once [place] 1,250 mcg 00 :00 a week Medical (50,000 Branch unit) capsule ERGOCALCIFE 2022-0 2023- No [id number] Take 1 [facility], 3-18 04-10 capsule by ity of VITAMIN D2, 00:00: 00:00 mouth once [place] 1,250 mcg 00 :00 a week Medical (50,000 Branch unit) capsule acetaminoph 2022-0 Yes 2745 1{tbl} Take 1 [facility] en-codeine 2-15 tablet by ity of 300-30 mg 00:00: mouth 3 [place] tablet 00 (three) Medical times Branch daily as needed (Chronic Pain). For chronic foot pain. Has triedcymba lta,lyrica ,other medication s and gabapentin not helping much Indication s: chronic pain acetaminoph 2022-0 Yes 2745 1{tbl} Take 1 [facility] en-codeine 2-15 tablet by ity of 300-30 mg 00:00: mouth 3 [place] tablet 00 (three) Medical times Branch daily as needed (Chronic Pain). For chronic foot pain. Has triedcymba lta,lyrica ,other medication s and gabapentin not helping much Indication s: chronic pain acetaminoph 2-0 Yes 2745 1{tbl} Take 1 [facility] en-codeine 2-15 tablet by ity of 300-30 mg 00:00: mouth 3 [place] tablet 00 (three) Medical times Branch daily as needed (Chronic Pain). For chronic foot pain. Has triedcymba lta,lyrica ,other medication s and gabapentin not helping much Indication s: chronic pain acetaminoph 2-0 Yes 2745 1{tbl} Take 1 [facility] en-codeine 2-15 tablet by ity of 300-30 mg 00:00: mouth 3 [place] tablet 00 (three) Medical times Branch daily as needed (Chronic Pain). For chronic foot pain. Has triedcymba lta,lyrica ,other medication s and gabapentin not helping much Indication s: chronic pain acetaminoph 2-0 Yes 2745 1{tbl} Take 1 [facility] en-codeine 2-15 tablet by ity of 300-30 mg 00:00: mouth 3 [place] tablet 00 (three) Medical times Branch daily as needed (Chronic Pain). For chronic foot pain. Has triedcymba lta,lyrica ,other medication s and gabapentin not helping much Indication s: chronic pain acetaminoph 2-0 Yes 2745 1{tbl} Take 1 [facility] en-codeine 2-15 tablet by ity of 300-30 mg 00:00: mouth 3 [place] tablet 00 (three) Medical times Branch daily as needed (Chronic Pain). For chronic foot pain. Has triedcymba lta,lyrica ,other medication s and gabapentin not helping much Indication s: chronic pain acetaminoph 2-0 Yes 2745 1{tbl} Take 1 [facility] en-codeine 2-15 tablet by ity of 300-30 mg 00:00: mouth 3 [place] tablet 00 (three) Medical times Branch daily as needed (Chronic Pain). For chronic foot pain. Has triedcymba lta,lyrica ,other medication s and gabapentin not helping much Indication s: chronic pain acetaminoph 2-0 Yes 2745 1{tbl} Take 1 [facility] en-codeine 2-15 tablet by ity of 300-30 mg 00:00: mouth 3 [place] tablet 00 (three) Medical times Branch daily as needed (Chronic Pain). For chronic foot pain. Has triedcymba lta,lyrica ,other medication s and gabapentin not helping much Indication s: chronic pain acetaminoph 2-0 Yes 2745 1{tbl} Take 1 [facility] en-codeine 2-15 tablet by ity of 300-30 mg 00:00: mouth 3 [place] tablet 00 (three) Medical times Branch daily as needed (Chronic Pain). For chronic foot pain. Has triedcymba lta,lyrica ,other medication s and gabapentin not helping much Indication s: chronic pain acetaminoph 2021-0 Yes 2745 1{tbl} Take 1 [facility] en-codeine 2-15 tablet by ity of 300-30 mg 00:00: mouth 3 [place] tablet 00 (three) Medical times Branch daily as needed (Chronic Pain). For chronic foot pain. Has triedcymba lta,lyrica ,other medication s and gabapentin not helping much Indication s: chronic pain acetaminoph 2-0 Yes 2745 1{tbl} Take 1 [facility] en-codeine 2-15 tablet by ity of 300-30 mg 00:00: mouth 3 [place] tablet 00 (three) Medical times Branch daily as needed (Chronic Pain). For chronic foot pain. Has triedcymba lta,lyrica ,other medication s and gabapentin not helping much Indication s: chronic pain acetaminoph 2-0 Yes 2745 1{tbl} Take 1 [facility] en-codeine 2-15 tablet by ity of 300-30 mg 00:00: mouth 3 [place] tablet 00 (three) Medical times Branch daily as needed (Chronic Pain). For chronic foot pain. Has triedcymba lta,lyrica ,other medication s and gabapentin not helping much Indication s: chronic pain acetaminoph 2-0 Yes 2745 1{tbl} Take 1 [facility] en-codeine 2-15 tablet by ity of 300-30 mg 00:00: mouth 3 [place] tablet 00 (three) Medical times Branch daily as needed (Chronic Pain). For chronic foot pain. Has triedcymba lta,lyrica ,other medication s and gabapentin not helping much Indication s: chronic pain acetaminoph 2-0 Yes 2745 1{tbl} Take 1 [facility] en-codeine 2-15 tablet by ity of 300-30 mg 00:00: mouth 3 [place] tablet 00 (three) Medical times Branch daily as needed (Chronic Pain). For chronic foot pain. Has triedcymba lta,lyrica ,other medication s and gabapentin not helping much Indication s: chronic pain acetaminoph 2-0 Yes 2745 1{tbl} Take 1 [facility] en-codeine 2-15 tablet by ity of 300-30 mg 00:00: mouth 3 [place] tablet 00 (three) Medical times Branch daily as needed (Chronic Pain). For chronic foot pain. Has triedcymba lta,lyrica ,other medication s and gabapentin not helping much Indication s: chronic pain acetaminoph 2021-0 Yes 2745 1{tbl} Take 1 [facility] en-codeine 2-15 tablet by ity of 300-30 mg 00:00: mouth 3 [place] tablet 00 (three) Medical times Branch daily as needed (Chronic Pain). For chronic foot pain. Has triedcymba lta,lyrica ,other medication s and gabapentin not helping much Indication s: chronic pain acetaminoph 2-0 Yes 2745 1{tbl} Take 1 [facility] en-codeine 2-15 tablet by ity of 300-30 mg 00:00: mouth 3 [place] tablet 00 (three) Medical times Branch daily as needed (Chronic Pain). For chronic foot pain. Has triedcymba lta,lyrica ,other medication s and gabapentin not helping much Indication s: chronic pain acetaminoph 2-0 Yes 2745 1{tbl} Take 1 [facility] en-codeine 2-15 tablet by ity of 300-30 mg 00:00: mouth 3 [place] tablet 00 (three) Medical times Branch daily as needed (Chronic Pain). For chronic foot pain. Has triedcymba lta,lyrica ,other medication s and gabapentin not helping much Indication s: chronic pain acetaminoph 2-0 Yes 2745 1{tbl} Take 1 [facility] en-codeine 2-15 tablet by ity of 300-30 mg 00:00: mouth 3 [place] tablet 00 (three) Medical times Branch daily as needed (Chronic Pain). For chronic foot pain. Has triedcymba lta,lyrica ,other medication s and gabapentin not helping much Indication s: chronic pain acetaminoph 2-0 Yes 2745 1{tbl} Take 1 [facility] en-codeine 2-15 tablet by ity of 300-30 mg 00:00: mouth 3 [place] tablet 00 (three) Medical times Branch daily as needed (Chronic Pain). For chronic foot pain. Has triedcymba lta,lyrica ,other medication s and gabapentin not helping much Indication s: chronic pain acetaminoph 2021-0 Yes 2745 1{tbl} Take 1 [facility] en-codeine 2-15 tablet by ity of 300-30 mg 00:00: mouth 3 [place] tablet 00 (three) Medical times Branch daily as needed (Chronic Pain). For chronic foot pain. Has triedcymba lta,lyrica ,other medication s and gabapentin not helping much Indication s: chronic pain acetaminoph 2-0 Yes 2745 1{tbl} Take 1 [facility] en-codeine 2-15 tablet by ity of 300-30 mg 00:00: mouth 3 [place] tablet 00 (three) Medical times Branch daily as needed (Chronic Pain). For chronic foot pain. Has triedcymba lta,lyrica ,other medication s and gabapentin not helping much Indication s: chronic pain acetaminoph 2-0 Yes 2745 1{tbl} Take 1 [facility] en-codeine 2-15 tablet by ity of 300-30 mg 00:00: mouth 3 [place] tablet 00 (three) Medical times Branch daily as needed (Chronic Pain). For chronic foot pain. Has triedcymba lta,lyrica ,other medication s and gabapentin not helping much Indication s: chronic pain acetaminoph 2-0 Yes 2745 1{tbl} Take 1 [facility] en-codeine 2-15 tablet by ity of 300-30 mg 00:00: mouth 3 [place] tablet 00 (three) Medical times Branch daily as needed (Chronic Pain). For chronic foot pain. Has triedcymba lta,lyrica ,other medication s and gabapentin not helping much Indication s: chronic pain acetaminoph 2-0 Yes 2745 1{tbl} Take 1 [facility] en-codeine 2-15 tablet by ity of 300-30 mg 00:00: mouth 3 [place] tablet 00 (three) Medical times Branch daily as needed (Chronic Pain). For chronic foot pain. Has triedcymba lta,lyrica ,other medication s and gabapentin not helping much Indication s: chronic pain acetaminoph 2-0 Yes 2745 1{tbl} Take 1 [facility] en-codeine 2-15 tablet by ity of 300-30 mg 00:00: mouth 3 [place] tablet 00 (three) Medical times Branch daily as needed (Chronic Pain). For chronic foot pain. Has triedcymba lta,lyrica ,other medication s and gabapentin not helping much Indication s: chronic pain acetaminoph 2021-0 Yes 2745 1{tbl} Take 1 [facility] en-codeine 2-15 tablet by ity of 300-30 mg 00:00: mouth 3 [place] tablet 00 (three) Medical times Branch daily as needed (Chronic Pain). For chronic foot pain. Has triedcymba lta,lyrica ,other medication s and gabapentin not helping much Indication s: chronic pain acetaminoph 2021-0 Yes 2745 1{tbl} Take 1 [facility] en-codeine 2-15 tablet by ity of 300-30 mg 00:00: mouth 3 [place] tablet 00 (three) Medical times Branch daily as needed (Chronic Pain). For chronic foot pain. Has triedcymba lta,lyrica ,other medication s and gabapentin not helping much Indication s: chronic pain acetaminoph 2-0 Yes 2745 1{tbl} Take 1 [facility] en-codeine 2-15 tablet by ity of 300-30 mg 00:00: mouth 3 [place] tablet 00 (three) [facility] times [facility] daily as needed (Chronic Pain). For chronic foot pain. Has triedcymba lta,lyrica ,other medication s and gabapentin not helping much Indication s: chronic pain acetaminoph 2-0 Yes 2745 1{tbl} Take 1 Un [facility] en-codeine 2-15 tablet by [facility] of 300-30 mg 00:00: mouth 3 [place] tablet 00 (three) [facility] times [facility] daily as needed (Chronic Pain). For chronic foot pain. Has triedcymba lta,lyrica ,other medication s and gabapentin not helping much Indication s: chronic pain acetaminoph 2-0 Yes 2745 1{tbl} Take 1 [facility] en-codeine 2-15 tablet by [facility] of 300-30 mg 00:00: mouth 3 [place] tablet 00 (three) [facility] times [facility] daily as needed (Chronic Pain). For chronic foot pain. Has triedcymba lta,lyrica ,other medication s and gabapentin not helping much Indication s: chronic pain acetaminoph 2-0 Yes 2745 1{tbl} Take 1 [facility] en-codeine 2-15 tablet by [facility] of 300-30 mg 00:00: mouth 3 [place] tablet 00 (three) [facility] times [facility] daily as needed (Chronic Pain). For chronic foot pain. Has triedcymba lta,lyrica ,other medication s and gabapentin not helping much Indication s: chronic pain acetaminoph 2-0 Yes 2745 1{tbl} Take 1 [facility] en-codeine 2-15 tablet by ity of 300-30 mg 00:00: mouth 3 [place] tablet 00 (three) [facility] times [facility] daily as needed (Chronic Pain). For chronic foot pain. Has triedcymba lta,lyrica ,other medication s and gabapentin not helping much Indication s: chronic pain acetaminoph 2-0 Yes 2745 1{tbl} Take 1 [facility] en-codeine 2-15 tablet by [facility] of 300-30 mg 00:00: mouth 3 [place] tablet 00 (three) [facility] times [facility] daily as needed (Chronic Pain). For chronic foot pain. Has triedcymba lta,lyrica ,other medication s and gabapentin not helping much Indication s: chronic pain acetaminoph 2-0 Yes 2745 1{tbl} Take 1 [facility] en-codeine 2-15 tablet by [facility] of 300-30 mg 00:00: mouth 3 [place] tablet 00 (three) [facility] times [facility] daily as needed (Chronic Pain). For chronic foot pain. Has triedcymba lta,lyrica ,other medication s and gabapentin not helping much Indication s: chronic pain acetaminoph 2022-0 Yes 2745 1{tbl} Take 1 [facility] en-codeine 2-15 tablet by [facility] of 300-30 mg 00:00: mouth 3 [place] tablet 00 (three) [facility] times [facility] daily as needed (Chronic Pain). For chronic foot pain. Has triedcymba lta,lyrica ,other medication s and gabapentin not helping much Indication s: chronic pain acetaminoph 2-0 Yes 2745 1{tbl} Take 1 [facility] en-codeine 2-15 tablet by [facility] of 300-30 mg 00:00: mouth 3 [place] tablet 00 (three) [facility] times [facility] daily as needed (Chronic Pain). For chronic foot pain. Has triedcymba lta,lyrica ,other medication s and gabapentin not helping much Indication s: chronic pain acetaminoph 2-0 Yes 2745 1{tbl} Take 1 [facility] en-codeine 2-15 tablet by [facility] of 300-30 mg 00:00: mouth 3 [place] tablet 00 (three) [facility] times [facility] daily as needed (Chronic Pain). For chronic foot pain. Has triedcymba lta,lyrica ,other medication s and gabapentin not helping much Indication s: chronic pain acetaminoph 2-0 Yes 2745 1{tbl} Take 1 [facility] en-codeine 2-15 tablet by [facility] of 300-30 mg 00:00: mouth 3 [place] tablet 00 (three) [facility] times [facility] daily as needed (Chronic Pain). For chronic foot pain. Has triedcymba lta,lyrica ,other medication s and gabapentin not helping much Indication s: chronic pain acetaminoph 2-0 Yes 2745 1{tbl} Take 1 [facility] en-codeine 2-15 tablet by [facility] of 300-30 mg 00:00: mouth 3 [place] tablet 00 (three) [facility] times [facility] daily as needed (Chronic Pain). For chronic foot pain. Has triedcymba lta,lyrica ,other medication s and gabapentin not helping much Indication s: chronic pain acetaminoph 2-0 Yes 2745 1{tbl} Take 1 [facility] en-codeine 2-15 tablet by [facility] of 300-30 mg 00:00: mouth 3 [place] tablet 00 (three) [facility] times [facility] daily as needed (Chronic Pain). For chronic foot pain. Has triedcymba lta,lyrica ,other medication s and gabapentin not helping much Indication s: chronic pain acetaminoph 2021-0 Yes 2745 1{tbl} Take 1 [facility] en-codeine 2-15 tablet by [facility] of 300-30 mg 00:00: mouth 3 [place] tablet 00 (three) [facility] times [facility] daily as needed (Chronic Pain). For chronic foot pain. Has triedcymba lta,lyrica ,other medication s and gabapentin not helping much Indication s: chronic pain acetaminoph 2021-0 Yes 2745 1{tbl} Take 1 [facility] en-codeine 2-15 tablet by [facility] of 300-30 mg 00:00: mouth 3 [place] tablet 00 (three) [facility] times [facility] daily as needed (Chronic Pain). For chronic foot pain. Has triedcymba lta,lyrica ,other medication s and gabapentin not helping much Indication s: chronic pain acetaminoph 2021-0 Yes 2745 1{tbl} Take 1 [facility] en-codeine 2-15 tablet by [facility] of 300-30 mg 00:00: mouth 3 [place] tablet 00 (three) [facility] times [facility] daily as needed (Chronic Pain). For chronic foot pain. Has triedcymba lta,lyrica ,other medication s and gabapentin not helping much Indication s: chronic pain acetaminoph 2021-0 Yes 2745 1{tbl} Take 1 [facility] en-codeine 2-15 tablet by [facility] of 300-30 mg 00:00: mouth 3 [place] tablet 00 (three) [facility] times [facility] daily as needed (Chronic Pain). For chronic foot pain. Has triedcymba lta,lyrica ,other medication s and gabapentin not helping much Indication s: chronic pain acetaminoph 2021-0 Yes 2745 1{tbl} Take 1 [facility] en-codeine 2-15 tablet by [facility] of 300-30 mg 00:00: mouth 3 [place] tablet 00 (three) [facility] times [facility] daily as needed (Chronic Pain). For chronic foot pain. Has triedcymba lta,lyrica ,other medication s and gabapentin not helping much Indication s: chronic pain acetaminoph 2021-0 Yes 2745 1{tbl} Take 1 [facility] en-codeine 2-15 tablet by [facility] of 300-30 mg 00:00: mouth 3 [place] tablet 00 (three) [facility] times [facility] daily as needed (Chronic Pain). For chronic foot pain. Has triedcymba lta,lyrica ,other medication s and gabapentin not helping much Indication s: chronic pain acetaminoph 2022-0 Yes 2745 1{tbl} Take 1 [facility] en-codeine 2-15 tablet by [facility] of 300-30 mg 00:00: mouth 3 [place] tablet 00 (three) [facility] times [facility] daily as needed (Chronic Pain). For chronic foot pain. Has triedcymba lta,lyrica ,other medication s and gabapentin not helping much Indication s: chronic pain acetaminoph 2-0 Yes 2745 1{tbl} Take 1 [facility] en-codeine 2-15 tablet by [facility] of 300-30 mg 00:00: mouth 3 [place] tablet 00 (three) [facility] times [facility] daily as needed (Chronic Pain). For chronic foot pain. Has triedcymba lta,lyrica ,other medication s and gabapentin not helping much Indication s: chronic pain acetaminoph 2-0 Yes 2745 1{tbl} Take 1 [facility] en-codeine 2-15 tablet by [facility] of 300-30 mg 00:00: mouth 3 [place] tablet 00 (three) [facility] times [facility] daily as needed (Chronic Pain). For chronic foot pain. Has triedcymba lta,lyrica ,other medication s and gabapentin not helping much Indication s: chronic pain acetaminoph 2-0 Yes 2745 1{tbl} Take 1 [facility] en-codeine 2-15 tablet by [facility] of 300-30 mg 00:00: mouth 3 [place] tablet 00 (three) [facility] times [facility] daily as needed (Chronic Pain). For chronic foot pain. Has triedcymba lta,lyrica ,other medication s and gabapentin not helping much Indication s: chronic pain acetaminoph 2-0 Yes 2745 1{tbl} Take 1 [facility] en-codeine 2-15 tablet by [facility] of 300-30 mg 00:00: mouth 3 [place] tablet 00 (three) [facility] times [facility] daily as needed (Chronic Pain). For chronic foot pain. Has triedcymba lta,lyrica ,other medication s and gabapentin not helping much Indication s: chronic pain acetaminoph 2-0 Yes 2745 1{tbl} Take 1 [facility] en-codeine 2-15 tablet by [facility] of 300-30 mg 00:00: mouth 3 [place] tablet 00 (three) [facility] times [facility] daily as needed (Chronic Pain). For chronic foot pain. Has triedcymba lta,lyrica ,other medication s and gabapentin not helping much Indication s: chronic pain acetaminoph 2021-0 Yes 2745 1{tbl} Take 1 [facility] en-codeine 2-15 tablet by [facility] of 300-30 mg 00:00: mouth 3 [place] tablet 00 (three) [facility] times [facility] daily as needed (Chronic Pain). For chronic foot pain. Has triedcymba lta,lyrica ,other medication s and gabapentin not helping much Indication s: chronic pain acetaminoph 2021-0 Yes 2745 1{tbl} Take 1 [facility] en-codeine 2-15 tablet by [facility] of 300-30 mg 00:00: mouth 3 [place] tablet 00 (three) [facility] times [facility] daily as needed (Chronic Pain). For chronic foot pain. Has triedcymba lta,lyrica ,other medication s and gabapentin not helping much Indication s: chronic pain acetaminoph 2021-0 Yes 2745 1{tbl} Take 1 [facility] en-codeine 2-15 tablet by [facility] of 300-30 mg 00:00: mouth 3 [place] tablet 00 (three) [facility] times [facility] daily as needed (Chronic Pain). For chronic foot pain. Has triedcymba lta,lyrica ,other medication s and gabapentin not helping much Indication s: chronic pain acetaminoph 2-0 Yes 2745 1{tbl} Take 1 [facility] en-codeine 2-15 tablet by [facility] of 300-30 mg 00:00: mouth 3 [place] tablet 00 (three) [facility] times [facility] daily as needed (Chronic Pain). For chronic foot pain. Has triedcymba lta,lyrica ,other medication s and gabapentin not helping much Indication s: chronic pain acetaminoph 2-0 Yes 2745 1{tbl} Take 1 [facility] en-codeine 2-15 tablet by [facility] of 300-30 mg 00:00: mouth 3 [place] tablet 00 (three) [facility] times [facility] daily as needed (Chronic Pain). For chronic foot pain. Has triedcymba lta,lyrica ,other medication s and gabapentin not helping much Indication s: chronic pain acetaminoph 2-0 Yes 2745 1{tbl} Take 1 [facility] en-codeine 2-15 tablet by [facility] of 300-30 mg 00:00: mouth 3 [place] tablet 00 (three) [facility] times [facility] daily as needed (Chronic Pain). For chronic foot pain. Has triedcymba lta,lyrica ,other medication s and gabapentin not helping much Indication s: chronic pain acetaminoph 2021-0 Yes 2745 1{tbl} Take 1 [facility] en-codeine 2-15 tablet by [facility] of 300-30 mg 00:00: mouth 3 [place] tablet 00 (three) [facility] times [facility] daily as needed (Chronic Pain). For chronic foot pain. Has triedcymba lta,lyrica ,other medication s and gabapentin not helping much Indication s: chronic pain acetaminoph 2021-0 Yes 2745 1{tbl} Take 1 [facility] en-codeine 2-15 tablet by [facility] of 300-30 mg 00:00: mouth 3 [place] tablet 00 (three) [facility] times [facility] daily as needed (Chronic Pain). For chronic foot pain. Has triedcymba lta,lyrica ,other medication s and gabapentin not helping much Indication s: chronic pain acetaminoph 2021-0 Yes 2745 1{tbl} Take 1 [facility] en-codeine 2-15 tablet by [facility] of 300-30 mg 00:00: mouth 3 [place] tablet 00 (three) [facility] times [facility] daily as needed (Chronic Pain). For chronic foot pain. Has triedcymba lta,lyrica ,other medication s and gabapentin not helping much Indication s: chronic pain acetaminoph 2-0 Yes 2745 1{tbl} Take 1 [facility] en-codeine 2-15 tablet by [facility] of 300-30 mg 00:00: mouth 3 [place] tablet 00 (three) Medical times [facility] daily as needed (Chronic Pain). For chronic foot pain. Has triedcymba lta,lyrica ,other medication s and gabapentin not helping much Indication s: chronic pain acetaminoph 2-0 Yes 2745 1{tbl} Take 1 [facility] en-codeine 2-15 tablet by ity of 300-30 mg 00:00: mouth 3 [place] tablet 00 (three) Medical times [facility] daily as needed (Chronic Pain). For chronic foot pain. Has triedcymba lta,lyrica ,other medication s and gabapentin not helping much Indication s: chronic pain acetaminoph 2-0 Yes 2745 1{tbl} Take 1 [facility] en-codeine 2-15 tablet by [facility] of 300-30 mg 00:00: mouth 3 [place] tablet 00 (three) Medical times [facility] daily as needed (Chronic Pain). For chronic foot pain. Has triedcymba lta,lyrica ,other medication s and gabapentin not helping much Indication s: chronic pain acetaminoph 2021-0 Yes 2745 1{tbl} Take 1 [facility] en-codeine 2-15 tablet by [facility] of 300-30 mg 00:00: mouth 3 [place] tablet 00 (three) Medical times [facility] daily as needed (Chronic Pain). For chronic foot pain. Has triedcymba lta,lyrica ,other medication s and gabapentin not helping much Indication s: chronic pain acetaminoph 2-0 Yes 2745 1{tbl} Take 1 [facility] en-codeine 2-15 tablet by [facility] of 300-30 mg 00:00: mouth 3 [place] tablet 00 (three) Medical times [facility] daily as needed (Chronic Pain). For chronic foot pain. Has triedcymba lta,lyrica ,other medication s and gabapentin not helping much Indication s: chronic pain acetaminoph 2-0 Yes 2745 1{tbl} Take 1 [facility] en-codeine 2-15 tablet by ity of 300-30 mg 00:00: mouth 3 [place] tablet 00 (three) Medical times [facility] daily as needed (Chronic Pain). For chronic foot pain. Has triedcymba lta,lyrica ,other medication s and gabapentin not helping much Indication s: chronic pain acetaminoph 2-0 Yes 2745 1{tbl} Take 1 [facility] en-codeine 2-15 tablet by it[facility] of 300-30 mg 00:00: mouth 3 [place] tablet 00 (three) Medical times [facility] daily as needed (Chronic Pain). For chronic foot pain. Has triedcymba lta,lyrica ,other medication s and gabapentin not helping much Indication s: chronic pain acetaminoph 2021-0 Yes 2745 1{tbl} Take 1 [facility] en-codeine 2-15 tablet by [facility] of 300-30 mg 00:00: mouth 3 [place] tablet 00 (three) Medical times [facility] daily as needed (Chronic Pain). For chronic foot pain. Has triedcymba lta,lyrica ,other medication s and gabapentin not helping much Indication s: chronic pain acetaminoph 2021-0 Yes 2745 1{tbl} Take 1 [facility] en-codeine 2-15 tablet by [facility] of 300-30 mg 00:00: mouth 3 [place] tablet 00 (three) Medical times [facility] daily as needed (Chronic Pain). For chronic foot pain. Has triedcymba lta,lyrica ,other medication s and gabapentin not helping much Indication s: chronic pain acetaminoph 2021-0 Yes 2745 1{tbl} Take 1 [facility] en-codeine 2-15 tablet by ity of 300-30 mg 00:00: mouth 3 [place] tablet 00 (three) Medical times [facility] daily as needed (Chronic Pain). For chronic foot pain. Has triedcymba lta,lyrica ,other medication s and gabapentin not helping much Indication s: chronic pain acetaminoph 2021-0 Yes 2745 1{tbl} Take 1 [facility] en-codeine 2-15 tablet by ity of 300-30 mg 00:00: mouth 3 [place] tablet 00 (three) Medical times [facility] daily as needed (Chronic Pain). For chronic foot pain. Has triedcymba lta,lyrica ,other medication s and gabapentin not helping much Indication s: chronic pain acetaminoph 2-0 Yes 2745 1{tbl} Take 1 [facility] en-codeine 2-15 tablet by ity of 300-30 mg 00:00: mouth 3 [place] tablet 00 (three) Medical times [facility] daily as needed (Chronic Pain). For chronic foot pain. Has triedcymba lta,lyrica ,other medication s and gabapentin not helping much Indication s: chronic pain acetaminoph 2021-0 Yes 2745 1{tbl} Take 1 [facility] en-codeine 2-15 tablet by it[facility] of 300-30 mg 00:00: mouth 3 [place] tablet 00 (three) Medical times [facility] daily as needed (Chronic Pain). For chronic foot pain. Has triedcymba lta,lyrica ,other medication s and gabapentin not helping much Indication s: chronic pain acetaminoph 2-0 Yes 2745 1{tbl} Take 1 [facility] en-codeine 2-15 tablet by ity of 300-30 mg 00:00: mouth 3 [place] tablet 00 (three) Medical times [facility] daily as needed (Chronic Pain). For chronic foot pain. Has triedcymba lta,lyrica ,other medication s and gabapentin not helping much Indication s: chronic pain acetaminoph 2-0 Yes 2745 1{tbl} Take 1 [facility] en-codeine 2-15 tablet by [facility] of 300-30 mg 00:00: mouth 3 [place] tablet 00 (three) Medical times [facility] daily as needed (Chronic Pain). For chronic foot pain. Has triedcymba lta,lyrica ,other medication s and gabapentin not helping much Indication s: chronic pain acetaminoph 2021-0 Yes 2745 1{tbl} Take 1 [facility] en-codeine 2-15 tablet by [facility]y of 300-30 mg 00:00: mouth 3 [place] tablet 00 (three) Medical times [facility] daily as needed (Chronic Pain). For chronic foot pain. Has triedcymba lta,lyrica ,other medication s and gabapentin not helping much Indication s: chronic pain acetaminoph 2-0 Yes 2745 1{tbl} Take 1 [facility] en-codeine 2-15 tablet by ity of 300-30 mg 00:00: mouth 3 [place] tablet 00 (three) Medical times [facility] daily as needed (Chronic Pain). For chronic foot pain. Has triedcymba lta,lyrica ,other medication s and gabapentin not helping much Indication s: chronic pain acetaminoph 2-0 Yes 2745 1{tbl} Take 1 [facility] en-codeine 2-15 tablet by ity of 300-30 mg 00:00: mouth 3 [place] tablet 00 (three) Medical times [facility] daily as needed (Chronic Pain). For chronic foot pain. Has triedcymba lta,lyrica ,other medication s and gabapentin not helping much Indication s: chronic pain acetaminoph 2022-0 Yes 2745 1{tbl} Take 1 [facility] en-codeine 2-15 tablet by ity of 300-30 mg 00:00: mouth 3 [place] tablet 00 (three) Medical times [facility] daily as needed (Chronic Pain). For chronic foot pain. Has triedcymba lta,lyrica ,other medication s and gabapentin not helping much Indication s: chronic pain acetaminoph 2-0 Yes 2745 1{tbl} Take 1 [facility] en-codeine 2-15 tablet by ity of 300-30 mg 00:00: mouth 3 [place] tablet 00 (three) Medical times [facility] daily as needed (Chronic Pain). For chronic foot pain. Has triedcymba lta,lyrica ,other medication s and gabapentin not helping much Indication s: chronic pain acetaminoph 2021-0 Yes 2745 1{tbl} Take 1 [facility] en-codeine 2-15 tablet by [facility]y of 300-30 mg 00:00: mouth 3 [place] tablet 00 (three) Medical times [facility] daily as needed (Chronic Pain). For chronic foot pain. Has triedcymba lta,lyrica ,other medication s and gabapentin not helping much Indication s: chronic pain acetaminoph 2-0 Yes 2745 1{tbl} Take 1 [facility] en-codeine 2-15 tablet by [facility]y of 300-30 mg 00:00: mouth 3 [place] tablet 00 (three) Medical times [facility] daily as needed (Chronic Pain). For chronic foot pain. Has triedcymba lta,lyrica ,other medication s and gabapentin not helping much Indication s: chronic pain acetaminoph 2-0 Yes 2745 1{tbl} Take 1 [facility] en-codeine 2-15 tablet by ity of 300-30 mg 00:00: mouth 3 [place] tablet 00 (three) Medical times [facility] daily as needed (Chronic Pain). For chronic foot pain. Has triedcymba lta,lyrica ,other medication s and gabapentin not helping much Indication s: chronic pain acetaminoph 2-0 Yes 2745 1{tbl} Take 1 [facility] en-codeine 2-15 tablet by ity of 300-30 mg 00:00: mouth 3 [place] tablet 00 (three) Medical times [facility] daily as needed (Chronic Pain). For chronic foot pain. Has triedcymba lta,lyrica ,other medication s and gabapentin not helping much Indication s: chronic pain acetaminoph 2-0 Yes 2745 1{tbl} Take 1 [facility] en-codeine 2-15 tablet by ity of 300-30 mg 00:00: mouth 3 [place] tablet 00 (three) Medical times [facility] daily as needed (Chronic Pain). For chronic foot pain. Has triedcymba lta,lyrica ,other medication s and gabapentin not helping much Indication s: chronic pain acetaminoph 2-0 Yes 2745 1{tbl} Take 1 [facility] en-codeine 2-15 tablet by ity of 300-30 mg 00:00: mouth 3 [place] tablet 00 (three) Medical times [facility] daily as needed (Chronic Pain). For chronic foot pain. Has triedcymba lta,lyrica ,other medication s and gabapentin not helping much Indication s: chronic pain acetaminoph 2-0 Yes 2745 1{tbl} Take 1 [facility] en-codeine 2-15 tablet by ity of 300-30 mg 00:00: mouth 3 [place] tablet 00 (three) Medical times [facility] daily as needed (Chronic Pain). For chronic foot pain. Has triedcymba lta,lyrica ,other medication s and gabapentin not helping much Indication s: chronic pain acetaminoph 2-0 Yes 2745 1{tbl} Take 1 [facility] en-codeine 2-15 tablet by ity of 300-30 mg 00:00: mouth 3 [place] tablet 00 (three) Medical times [facility] daily as needed (Chronic Pain). For chronic foot pain. Has triedcymba lta,lyrica ,other medication s and gabapentin not helping much Indication s: chronic pain acetaminoph 2-0 Yes 2745 1{tbl} Take 1 [facility] en-codeine 2-15 tablet by ity of 300-30 mg 00:00: mouth 3 [place] tablet 00 (three) Medical times [facility] daily as needed (Chronic Pain). For chronic foot pain. Has triedcymba lta,lyrica ,other medication s and gabapentin not helping much Indication s: chronic pain acetaminoph 2-0 Yes 2745 1{tbl} Take 1 [facility] en-codeine 2-15 tablet by ity of 300-30 mg 00:00: mouth 3 [place] tablet 00 (three) Medical times [facility] daily as needed (Chronic Pain). For chronic foot pain. Has triedcymba lta,lyrica ,other medication s and gabapentin not helping much Indication s: chronic pain acetaminoph 2-0 Yes 2745 1{tbl} Take 1 [facility] en-codeine 2-15 tablet by ity of 300-30 mg 00:00: mouth 3 [place] tablet 00 (three) Medical times [facility] daily as needed (Chronic Pain). For chronic foot pain. Has triedcymba lta,lyrica ,other medication s and gabapentin not helping much Indication s: chronic pain acetaminoph 2021-0 Yes 2745 1{tbl} Take 1 [facility] en-codeine 2-15 tablet by ity of 300-30 mg 00:00: mouth 3 [place] tablet 00 (three) Medical times [facility] daily as needed (Chronic Pain). For chronic foot pain. Has triedcymba lta,lyrica ,other medication s and gabapentin not helping much Indication s: chronic pain acetaminoph 2-0 Yes 2745 1{tbl} Take 1 [facility] en-codeine 2-15 tablet by ity of 300-30 mg 00:00: mouth 3 [place] tablet 00 (three) Medical times [facility] daily as needed (Chronic Pain). For chronic foot pain. Has triedcymba lta,lyrica ,other medication s and gabapentin not helping much Indication s: chronic pain acetaminoph 2-0 Yes 2745 1{tbl} Take 1 [facility] en-codeine 2-15 tablet by ity of 300-30 mg 00:00: mouth 3 [place] tablet 00 (three) Medical times [facility] daily as needed (Chronic Pain). For chronic foot pain. Has triedcymba lta,lyrica ,other medication s and gabapentin not helping much Indication s: chronic pain acetaminoph 2-0 Yes 2745 1{tbl} Take 1 [facility] en-codeine 2-15 tablet by ity of 300-30 mg 00:00: mouth 3 [place] tablet 00 (three) Medical times [facility] daily as needed (Chronic Pain). For chronic foot pain. Has triedcymba lta,lyrica ,other medication s and gabapentin not helping much Indication s: chronic pain acetaminoph 2021-0 Yes 2745 1{tbl} Take 1 [facility] en-codeine 2-15 tablet by ity of 300-30 mg 00:00: mouth 3 [place] tablet 00 (three) Medical times [facility] daily as needed (Chronic Pain). For chronic foot pain. Has triedcymba lta,lyrica ,other medication s and gabapentin not helping much Indication s: chronic pain acetaminoph 2021-0 Yes 2745 1{tbl} Take 1 [facility] en-codeine 2-15 tablet by ity of 300-30 mg 00:00: mouth 3 [place] tablet 00 (three) Medical times [facility] daily as needed (Chronic Pain). For chronic foot pain. Has triedcymba lta,lyrica ,other medication s and gabapentin not helping much Indication s: chronic pain acetaminoph 2021-0 Yes 2745 1{tbl} Take 1 [facility] en-codeine 2-15 tablet by ity of 300-30 mg 00:00: mouth 3 [place] tablet 00 (three) Medical times [facility] daily as needed (Chronic Pain). For chronic foot pain. Has triedcymba lta,lyrica ,other medication s and gabapentin not helping much Indication s: chronic pain acetaminoph 2021-0 Yes 2745 1{tbl} Take 1 [facility] en-codeine 2-15 tablet by ity of 300-30 mg 00:00: mouth 3 [place] tablet 00 (three) Medical times [facility] daily as needed (Chronic Pain). For chronic foot pain. Has triedcymba lta,lyrica ,other medication s and gabapentin not helping much Indication s: chronic pain acetaminoph 2021-0 Yes 2745 1{tbl} Take 1 [facility] en-codeine 2-15 tablet by ity of 300-30 mg 00:00: mouth 3 [place] tablet 00 (three) Medical times [facility] daily as needed (Chronic Pain). For chronic foot pain. Has triedcymba lta,lyrica ,other medication s and gabapentin not helping much Indication s: chronic pain acetaminoph 2021-0 Yes 2745 1{tbl} Take 1 [facility] en-codeine 2-15 tablet by ity of 300-30 mg 00:00: mouth 3 [place] tablet 00 (three) Medical times [facility] daily as needed (Chronic Pain). For chronic foot pain. Has triedcymba lta,lyrica ,other medication s and gabapentin not helping much Indication s: chronic pain acetaminoph 2-0 Yes 2745 1{tbl} Take 1 [facility] en-codeine 2-15 tablet by [facility]y of 300-30 mg 00:00: mouth 3 [place] tablet 00 (three) Medical times [facility] daily as needed (Chronic Pain). For chronic foot pain. Has triedcymba lta,lyrica ,other medication s and gabapentin not helping much Indication s: chronic pain acetaminoph 2-0 Yes 2745 1{tbl} Take 1 [facility] en-codeine 2-15 tablet by ity of 300-30 mg 00:00: mouth 3 [place] tablet 00 (three) Medical times [facility] daily as needed (Chronic Pain). For chronic foot pain. Has triedcymba lta,lyrica ,other medication s and gabapentin not helping much Indication s: chronic pain acetaminoph 2021-0 Yes 2745 1{tbl} Take 1 [facility] en-codeine 2-15 tablet by [facility] 300-30 mg 00:00: mouth 3 [place] tablet 00 (three) Medical times Branch daily as needed (Chronic Pain). For chronic foot pain. Has triedcymba lta,lyrica ,other medication s and gabapentin not helping much Indication s: chronic pain acetaminoph 2-0 Yes 2745 1{tbl} Take 1 [facility] en-codeine 2-15 tablet by [facility] of 300-30 mg 00:00: mouth 3 [place] tablet 00 (three) Medical times Branch daily as needed (Chronic Pain). For chronic foot pain. Has triedcymba lta,lyrica ,other medication s and gabapentin not helping much Indication s: chronic pain acetaminoph 2-0 Yes 2745 1{tbl} Take 1 [facility] en-codeine 2-15 tablet by [facility] of 300-30 mg 00:00: mouth 3 [place] tablet 00 (three) Medical times Branch daily as needed (Chronic Pain). For chronic foot pain. Has triedcymba lta,lyrica ,other medication s and gabapentin not helping much Indication s: chronic pain acetaminoph 2-0 Yes 2745 1{tbl} Take 1 [facility] en-codeine 2-15 tablet by [facility] of 300-30 mg 00:00: mouth 3 [place] tablet 00 (three) Medical times Branch daily as needed (Chronic Pain). For chronic foot pain. Has triedcymba lta,lyrica ,other medication s and gabapentin not helping much Indication s: chronic pain acetaminoph 2-0 Yes 2745 1{tbl} Take 1 [facility] en-codeine 2-15 tablet by [facility] of 300-30 mg 00:00: mouth 3 [place] tablet 00 (three) Medical times Branch daily as needed (Chronic Pain). For chronic foot pain. Has triedcymba lta,lyrica ,other medication s and gabapentin not helping much Indication s: chronic pain acetaminoph 2021-0 Yes 2745 1{tbl} Take 1 [facility] en-codeine 2-15 tablet by [facility] of 300-30 mg 00:00: mouth 3 [place] tablet 00 (three) Medical times Branch daily as needed (Chronic Pain). For chronic foot pain. Has triedcymba lta,lyrica ,other medication s and gabapentin not helping much Indication s: chronic pain acetaminoph 2021-0 Yes 2745 1{tbl} Take 1 [facility] en-codeine 2-15 tablet by [facility] of 300-30 mg 00:00: mouth 3 [place] tablet 00 (three) Medical times Branch daily as needed (Chronic Pain). For chronic foot pain. Has triedcymba lta,lyrica ,other medication s and gabapentin not helping much Indication s: chronic pain acetaminoph 2-0 Yes 2745 1{tbl} Take 1 [facility] en-codeine 2-15 tablet by [facility] of 300-30 mg 00:00: mouth 3 [place] tablet 00 (three) Medical times Branch daily as needed (Chronic Pain). For chronic foot pain. Has triedcymba lta,lyrica ,other medication s and gabapentin not helping much Indication s: chronic pain acetaminoph 2-0 Yes 2745 1{tbl} Take 1 [facility] en-codeine 2-15 tablet by [facility] of 300-30 mg 00:00: mouth 3 [place] tablet 00 (three) Medical times Branch daily as needed (Chronic Pain). For chronic foot pain. Has triedcymba lta,lyrica ,other medication s and gabapentin not helping much Indication s: chronic pain acetaminoph 2-0 Yes 2745 1{tbl} Take 1 [facility] en-codeine 2-15 tablet by [facility] of 300-30 mg 00:00: mouth 3 [place] tablet 00 (three) Medical times Branch daily as needed (Chronic Pain). For chronic foot pain. Has triedcymba lta,lyrica ,other medication s and gabapentin not helping much Indication s: chronic pain acetaminoph 2021-0 Yes 2745 1{tbl} Take 1 [facility] en-codeine 2-15 tablet by [facility] of 300-30 mg 00:00: mouth 3 [place] tablet 00 (three) Medical times Branch daily as needed (Chronic Pain). For chronic foot pain. Has triedcymba lta,lyrica ,other medication s and gabapentin not helping much Indication s: chronic pain acetaminoph 2021-0 Yes 2745 1{tbl} Take 1 [facility] en-codeine 2-15 tablet by [facility] of 300-30 mg 00:00: mouth 3 [place] tablet 00 (three) Medical times Branch daily as needed (Chronic Pain). For chronic foot pain. Has triedcymba lta,lyrica ,other medication s and gabapentin not helping much Indication s: chronic pain acetaminoph 2021-0 Yes 2745 1{tbl} Take 1 [facility] en-codeine 2-15 tablet by [facility] of 300-30 mg 00:00: mouth 3 [place] tablet 00 (three) Medical times Branch daily as needed (Chronic Pain). For chronic foot pain. Has triedcymba lta,lyrica ,other medication s and gabapentin not helping much Indication s: chronic pain acetaminoph 2-0 Yes 2745 1{tbl} Take 1 [facility] en-codeine 2-15 tablet by [facility] of 300-30 mg 00:00: mouth 3 [place] tablet 00 (three) Medical times Branch daily as needed (Chronic Pain). For chronic foot pain. Has triedcymba lta,lyrica ,other medication s and gabapentin not helping much Indication s: chronic pain acetaminoph 2-0 Yes 2745 1{tbl} Take 1 [facility] en-codeine 2-15 tablet by [facility] of 300-30 mg 00:00: mouth 3 [place] tablet 00 (three) Medical times Branch daily as needed (Chronic Pain). For chronic foot pain. Has triedcymba lta,lyrica ,other medication s and gabapentin not helping much Indication s: chronic pain acetaminoph 2022-0 Yes 2745 1{tbl} Take 1 [facility] en-codeine 2-15 tablet by [facility] of 300-30 mg 00:00: mouth 3 [place] tablet 00 (three) Medical times Branch daily as needed (Chronic Pain). For chronic foot pain. Has triedcymba lta,lyrica ,other medication s and gabapentin not helping much Indication s: chronic pain acetaminoph 2-0 Yes 2745 1{tbl} Take 1 [facility] en-codeine 2-15 tablet by [facility] of 300-30 mg 00:00: mouth 3 [place] tablet 00 (three) Medical times Branch daily as needed (Chronic Pain). For chronic foot pain. Has triedcymba lta,lyrica ,other medication s and gabapentin not helping much Indication s: chronic pain acetaminoph 2-0 Yes 2745 1{tbl} Take 1 [facility] en-codeine 2-15 tablet by [facility] of 300-30 mg 00:00: mouth 3 [place] tablet 00 (three) Medical times Branch daily as needed (Chronic Pain). For chronic foot pain. Has triedcymba lta,lyrica ,other medication s and gabapentin not helping much Indication s: chronic pain acetaminoph 2-0 Yes 2745 1{tbl} Take 1 [facility] en-codeine 2-15 tablet by [facility] of 300-30 mg 00:00: mouth 3 [place] tablet 00 (three) Medical times Branch daily as needed (Chronic Pain). For chronic foot pain. Has triedcymba lta,lyrica ,other medication s and gabapentin not helping much Indication s: chronic pain acetaminoph 2-0 Yes 2745 1{tbl} Take 1 [facility] en-codeine 2-15 tablet by [facility] of 300-30 mg 00:00: mouth 3 [place] tablet 00 (three) Medical times Branch daily as needed (Chronic Pain). For chronic foot pain. Has triedcymba lta,lyrica ,other medication s and gabapentin not helping much Indication s: chronic pain acetaminoph 2-0 Yes 2745 1{tbl} Take 1 [facility] en-codeine 2-15 tablet by [facility] of 300-30 mg 00:00: mouth 3 [place] tablet 00 (three) Medical times Branch daily as needed (Chronic Pain). For chronic foot pain. Has triedcymba lta,lyrica ,other medication s and gabapentin not helping much Indication s: chronic pain acetaminoph 2-0 Yes 2745 1{tbl} Take 1 [facility] en-codeine 2-15 tablet by [facility] of 300-30 mg 00:00: mouth 3 [place] tablet 00 (three) Medical times Branch daily as needed (Chronic Pain). For chronic foot pain. Has triedcymba lta,lyrica ,other medication s and gabapentin not helping much Indication s: chronic pain acetaminoph 2021-0 Yes 2745 1{tbl} Take 1 [facility] en-codeine 2-15 tablet by [facility] of 300-30 mg 00:00: mouth 3 [place] tablet 00 (three) Medical times Branch daily as needed (Chronic Pain). For chronic foot pain. Has triedcymba lta,lyrica ,other medication s and gabapentin not helping much Indication s: chronic pain acetaminoph 2-0 Yes 2745 1{tbl} Take 1 [facility] en-codeine 2-15 tablet by [facility] of 300-30 mg 00:00: mouth 3 [place] tablet 00 (three) Medical times Branch daily as needed (Chronic Pain). For chronic foot pain. Has triedcymba lta,lyrica ,other medication s and gabapentin not helping much Indication s: chronic pain acetaminoph 2-0 Yes 2745 1{tbl} Take 1 [facility] en-codeine 2-15 tablet by [facility] of 300-30 mg 00:00: mouth 3 [place] tablet 00 (three) Medical times Branch daily as needed (Chronic Pain). For chronic foot pain. Has triedcymba lta,lyrica ,other medication s and gabapentin not helping much Indication s: chronic pain acetaminoph 2-0 Yes 2745 1{tbl} Take 1 [facility] en-codeine 2-15 tablet by [facility] of 300-30 mg 00:00: mouth 3 [place] tablet 00 (three) Medical times Branch daily as needed (Chronic Pain). For chronic foot pain. Has triedcymba lta,lyrica ,other medication s and gabapentin not helping much Indication s: chronic pain acetaminoph 2-0 Yes 2745 1{tbl} Take 1 [facility] en-codeine 2-15 tablet by [facility] of 300-30 mg 00:00: mouth 3 [place] tablet 00 (three) Medical times Branch daily as needed (Chronic Pain). For chronic foot pain. Has triedcymba lta,lyrica ,other medication s and gabapentin not helping much Indication s: chronic pain acetaminoph 2-0 Yes 2745 1{tbl} Take 1 [facility] en-codeine 2-15 tablet by [facility] of 300-30 mg 00:00: mouth 3 [place] tablet 00 (three) Medical times Branch daily as needed (Chronic Pain). For chronic foot pain. Has triedcymba lta,lyrica ,other medication s and gabapentin not helping much Indication s: chronic pain acetaminoph 2021-0 Yes 2745 1{tbl} Take 1 [facility] en-codeine 2-15 tablet by [facility] of 300-30 mg 00:00: mouth 3 [place] tablet 00 (three) Medical times Branch daily as needed (Chronic Pain). For chronic foot pain. Has triedcymba lta,lyrica ,other medication s and gabapentin not helping much Indication s: chronic pain acetaminoph 2-0 Yes 2745 1{tbl} Take 1 [facility] en-codeine 2-15 tablet by [facility] of 300-30 mg 00:00: mouth 3 [place] tablet 00 (three) Medical times Branch daily as needed (Chronic Pain). For chronic foot pain. Has triedcymba lta,lyrica ,other medication s and gabapentin not helping much Indication s: chronic pain acetaminoph 2-0 Yes 2745 1{tbl} Take 1 [facility] en-codeine 2-15 tablet by [facility] of 300-30 mg 00:00: mouth 3 [place] tablet 00 (three) Medical times Branch daily as needed (Chronic Pain). For chronic foot pain. Has triedcymba lta,lyrica ,other medication s and gabapentin not helping much Indication s: chronic pain acetaminoph 2022-0 Yes 2745 1{tbl} Take 1 [facility] en-codeine 2-15 tablet by [facility] of 300-30 mg 00:00: mouth 3 [place] tablet 00 (three) Medical times Branch daily as needed (Chronic Pain). For chronic foot pain. Has triedcymba lta,lyrica ,other medication s and gabapentin not helping much Indication s: chronic pain acetaminoph 2021-0 Yes 2745 1{tbl} Take 1 [facility] en-codeine 2-15 tablet by [facility] of 300-30 mg 00:00: mouth 3 [place] tablet 00 (three) Medical times Branch daily as needed (Chronic Pain). For chronic foot pain. Has triedcymba lta,lyrica ,other medication s and gabapentin not helping much Indication s: chronic pain acetaminoph 2021-0 Yes 2745 1{tbl} Take 1 [facility] en-codeine 2-15 tablet by [facility] of 300-30 mg 00:00: mouth 3 [place] tablet 00 (three) Medical times Branch daily as needed (Chronic Pain). For chronic foot pain. Has triedcymba lta,lyrica ,other medication s and gabapentin not helping much Indication s: chronic pain acetaminoph 2021-0 2023- No 2745 1{tbl} Take 1 [facility] en-codeine 2-15 04-28 tablet by [facility] of 300-30 mg 00:00: 00:00 mouth 3 [place] tablet 00 :00 (three) Medical times [facility] daily as needed (Chronic Pain). For chronic foot pain. Has triedcymba lta,lyrica ,other medication s and gabapentin not helping much Indication s: chronic pain levothyroxi 2020-11 Yes [id number] 125ug Take 1 [facility]12 tablet by [facility] (EUTHYROX) 00:00: mouth [place] 125 mcg 00 every Medical tablet morning. Branch levothyroxi 2020-11 Yes [id number] 125ug Take 1 [facility] 0-12 tablet by [facility] of (EUTHYROX) 00:00: mouth [place] 125 mcg 00 every Medical tablet morning. Branch levothyroxi 2020-11 Yes [id number] 125ug Take 1 [facility] 0-12 tablet by [facility] of (EUTHYROX) 00:00: mouth [place] 125 mcg 00 every Medical tablet morning. Branch levothyroxi 2020-11 Yes [id number] 125ug Take 1 [facility] 0-12 tablet by [facility] of (EUTHYROX) 00:00: mouth [place] 125 mcg 00 every Medical tablet morning. Branch levothyroxi 2020-11 Yes [id number] 125ug Take 1 [facility] 0-12 tablet by [facility] of (EUTHYROX) 00:00: mouth [place] 125 mcg 00 every Medical tablet morning. Branch levothyroxi 2020-11 Yes [id number] 125ug Take 1 [facility] 0-12 tablet by [facility] of (EUTHYROX) 00:00: mouth [place] 125 mcg 00 every Medical tablet morning. Branch levothyroxi 2020-11 Yes [id number] 125ug Take 1 [facility] 0-12 tablet by [facility] of (EUTHYROX) 00:00: mouth [place] 125 mcg 00 every Medical tablet morning. Branch levothyroxi 2020-11 Yes [id number] 125ug Take 1 [facility] 0-12 tablet by [facility] of (EUTHYROX) 00:00: mouth [place] 125 mcg 00 every Medical tablet morning. Branch levothyroxi 2020-11 Yes [id number] 125ug Take 1 [facility] 0-12 tablet by [facility] of (EUTHYROX) 00:00: mouth [place] 125 mcg 00 every Medical tablet morning. Branch levothyroxi 2020-11 Yes [id number] 125ug Take 1 [facility] 0-12 tablet by [facility] of (EUTHYROX) 00:00: mouth [place] 125 mcg 00 every Medical tablet morning. Branch levothyroxi 2020-11 Yes [id number] 125ug Take 1 [facility] 0-12 tablet by [facility] of (EUTHYROX) 00:00: mouth [place] 125 mcg 00 every Medical tablet morning. Branch levothyroxi 2020-11 Yes [id number] 125ug Take 1 [facility] 0-12 tablet by [facility] of (EUTHYROX) 00:00: mouth [place] 125 mcg 00 every Medical tablet morning. Branch levothyroxi 2020-11 Yes [id number] 125ug Take 1 [facility] 0-12 tablet by ity of (EUTHYROX) 00:00: mouth [place] 125 mcg 00 every Medical tablet morning. Branch levothyroxi 2020-11 Yes [id number] 125ug Take 1 [facility] 0-12 tablet by [facility] of (EUTHYROX) 00:00: mouth [place] 125 mcg 00 every Medical tablet morning. Branch levothyroxi 2020-11 Yes [id number] 125ug Take 1 [facility] 0-12 tablet by [facility] of (EUTHYROX) 00:00: mouth [place] 125 mcg 00 every Medical tablet morning. Branch levothyroxi 2020-11 Yes [id number] 125ug Take 1 [facility] 0-12 tablet by [facility] of (EUTHYROX) 00:00: mouth [place] 125 mcg 00 every Medical tablet morning. Branch levothyroxi 2020-11 Yes [id number] 125ug Take 1 [facility] 0-12 tablet by it[facility] of (EUTHYROX) 00:00: mouth [place] 125 mcg 00 every Medical tablet morning. Branch levothyroxi 2020-11 Yes [id number] 125ug Take 1 [facility] 0-12 tablet by it[facility] of (EUTHYROX) 00:00: mouth [place] 125 mcg 00 every Medical tablet morning. Branch levothyroxi 2020-11 Yes [id number] 125ug Take 1 [facility] 0-12 tablet by it[facility] of (EUTHYROX) 00:00: mouth [place] 125 mcg 00 every Medical tablet morning. Branch levothyroxi 2020-11 Yes [id number] 125ug Take 1 [facility] 0-12 tablet by [facility] of (EUTHYROX) 00:00: mouth [place] 125 mcg 00 every Medical tablet morning. Branch levothyroxi 2020-11 Yes [id number] 125ug Take 1 [facility] 0-12 tablet by it[facility] of (EUTHYROX) 00:00: mouth [place] 125 mcg 00 every Medical tablet morning. Branch levothyroxi 2020-11 Yes [id number] 125ug Take 1 [facility] 0-12 tablet by ity of (EUTHYROX) 00:00: mouth [place] 125 mcg 00 every Medical tablet morning. Branch levothyroxi 2020-11 Yes [id number] 125ug Take 1 [facility] 0-12 tablet by it[facility] of (EUTHYROX) 00:00: mouth [place] 125 mcg 00 every Medical tablet morning. Branch levothyroxi 2020-11 Yes [id number] 125ug Take 1 [facility] 0-12 tablet by ity of (EUTHYROX) 00:00: mouth [place] 125 mcg 00 every Medical tablet morning. Branch levothyroxi 2020-11 Yes [id number] 125ug Take 1 [facility] 0-12 tablet by ity of (EUTHYROX) 00:00: mouth [place] 125 mcg 00 every Medical tablet morning. Branch levothyroxi 2020-11 Yes [id number] 125ug Take 1 [facility] 0-12 tablet by ity of (EUTHYROX) 00:00: mouth [place] 125 mcg 00 every Medical tablet morning. Branch levothyroxi 2020-11 Yes [id number] 125ug Take 1 [facility] 0-12 tablet by ity of (EUTHYROX) 00:00: mouth [place] 125 mcg 00 every Medical tablet morning. Branch levothyroxi 2020-11 Yes [id number] 125ug Take 1 [facility] 0-12 tablet by ity of (EUTHYROX) 00:00: mouth [place] 125 mcg 00 every Medical tablet morning. Branch levothyroxi 2020-11 Yes [id number] 125ug Take 1 [facility] ne 0-12 tablet by ity of (EUTHYROX) 00:00: mouth [place] 125 mcg 00 every Medical tablet morning. Branch levothyroxi 2020-11 Yes [id number] 125ug Take 1 [facility] ne 0-12 tablet by ity of (EUTHYROX) 00:00: mouth [place] 125 mcg 00 every Medical tablet morning. Branch levothyroxi 2020-11 Yes [id number] 125ug Take 1 [facility] ne 0-12 tablet by ity of (EUTHYROX) 00:00: mouth [place] 125 mcg 00 every Medical tablet morning. Branch levothyroxi 2020-11 Yes [id number] 125ug Take 1 [facility] ne 0-12 tablet by ity of (EUTHYROX) 00:00: mouth [place] 125 mcg 00 every Medical tablet morning. Branch levothyroxi 2020-11 Yes [id number] 125ug Take 1 [facility] ne 0-12 tablet by ity of (EUTHYROX) 00:00: mouth [place] 125 mcg 00 every Medical tablet morning. Branch levothyroxi 2020-11 Yes [id number] 125ug Take 1 [facility] ne 0-12 tablet by ity of (EUTHYROX) 00:00: mouth [place] 125 mcg 00 every Medical tablet morning. Branch levothyroxi 2020-11 Yes [id number] 125ug Take 1 [facility] ne 0-12 tablet by ity of (EUTHYROX) 00:00: mouth [place] 125 mcg 00 every Medical tablet morning. Branch levothyroxi 2020-11 Yes [id number] 125ug Take 1 [facility] ne 0-12 tablet by ity of (EUTHYROX) 00:00: mouth [place] 125 mcg 00 every Medical tablet morning. Branch levothyroxi 2020-11 Yes [id number] 125ug Take 1 [facility] ne 0-12 tablet by ity of (EUTHYROX) 00:00: mouth [place] 125 mcg 00 every Medical tablet morning. Branch levothyroxi 2020-11 Yes [id number] 125ug Take 1 [facility] ne 0-12 tablet by ity of (EUTHYROX) 00:00: mouth [place] 125 mcg 00 every Medical tablet morning. Branch levothyroxi 2020-11 Yes [id number] 125ug Take 1 [facility] ne 0-12 tablet by ity of (EUTHYROX) 00:00: mouth [place] 125 mcg 00 every Medical tablet morning. Branch levothyroxi 2020-11 Yes [id number] 125ug Take 1 [facility] ne 0-12 tablet by ity of (EUTHYROX) 00:00: mouth [place] 125 mcg 00 every Medical tablet morning. Branch levothyroxi 2020-11 Yes [id number] 125ug Take 1 [facility] ne 0-12 tablet by ity of (EUTHYROX) 00:00: mouth [place] 125 mcg 00 every Medical tablet morning. Branch levothyroxi 2020-11 Yes [id number] 125ug Take 1 [facility] ne 0-12 tablet by ity of (EUTHYROX) 00:00: mouth [place] 125 mcg 00 every Medical tablet morning. Branch levothyroxi 2020-11 Yes [id number] 125ug Take 1 [facility] ne 0-12 tablet by ity of (EUTHYROX) 00:00: mouth [place] 125 mcg 00 every Medical tablet morning. Branch levothyroxi 2020-11 Yes [id number] 125ug Take 1 [facility] ne 0-12 tablet by ity of (EUTHYROX) 00:00: mouth [place] 125 mcg 00 every Medical tablet morning. Branch levothyroxi 2020-11 Yes [id number] 125ug Take 1 [facility] ne 0-12 tablet by ity of (EUTHYROX) 00:00: mouth [place] 125 mcg 00 every Medical tablet morning. Branch levothyroxi 2020-11- No [id number] 125ug Take 1 [facility] ne 0-12 -19 tablet by ity of (EUTHYROX) 00:00: 00:00 mouth [place] 125 mcg 00 :00 every Medical tablet morning. Branch levothyroxi 2020-11- No [id number] 125ug Take 1 [facility] ne 0-12 12-19 tablet by ity of (EUTHYROX) 00:00: 00:00 mouth [place] 125 mcg 00 :00 every Medical tablet morning. Branch allopurinoL 0 Yes [id number] 200mg Take 2 [facility] 100 mg 7-11 9103 tablets by [facility] of tablet 00:00: mouth [place] 00 daily. Medical Branch allopurinoL 0 Yes [id number] 200mg Take 2 [facility] 100 mg 7-11 9103 tablets by [facility] of tablet 00:00: mouth [place] 00 daily. Medical Branch allopurinoL Yes [id number] 200mg Take 2 [facility] 100 mg 7-11 9103 tablets by [facility] of tablet 00:00: mouth [place] 00 daily. Medical Branch allopurinoL 0 Yes [id number] 200mg Take 2 [facility] 100 mg 7-11 9103 tablets by [facility] of tablet 00:00: mouth [place] 00 daily. Medical Branch allopurinoL 0 Yes [id number] 200mg Take 2 [facility] 100 mg 7-11 9103 tablets by [facility] of tablet 00:00: mouth [place] 00 daily. Medical Branch allopurinoL 0 Yes [id number] 200mg Take 2 [facility] 100 mg 7-11 9103 tablets by [facility] of tablet 00:00: mouth [place] 00 daily. Medical Branch allopurinoL 2020-0 Yes [id number] 200mg Take 2 [facility] 100 mg 7-11 9103 tablets by [facility] of tablet 00:00: mouth [place] 00 daily. Medical Branch allopurinoL 0 Yes [id number] 200mg Take 2 [facility] 100 mg 7-11 9103 tablets by [facility] of tablet 00:00: mouth [place] 00 daily. Medical Branch allopurinoL 0 Yes [id number] 200mg Take 2 [facility] 100 mg 7-11 9103 tablets by [facility] of tablet 00:00: mouth [place] 00 daily. Medical Branch allopurinoL 2020-0 Yes [id number] 200mg Take 2 [facility] 100 mg 7-11 9103 tablets by [facility] of tablet 00:00: mouth [place] 00 daily. Medical Branch allopurinoL Yes [id number] 200mg Take 2 [facility] 100 mg 7-11 9103 tablets by [facility] of tablet 00:00: mouth [place] 00 daily. Medical Branch allopurinoL Yes [id number] 200mg Take 2 [facility] 100 mg 7-11 9103 tablets by [facility] of tablet 00:00: mouth [place] 00 daily. [facility] Branch allopurinoL Yes [id number] 200mg Take 2 [facility] 100 mg 7-11 9103 tablets by ity of tablet 00:00: mouth [place] 00 daily. [facility] Branch allopurinoL Yes [id number] 200mg Take 2 [facility] 100 mg 7-11 9103 tablets by ity of tablet 00:00: mouth [place] 00 daily. [facility] Branch allopurinoL Yes [id number] 200mg Take 2 [facility] 100 mg 7-11 9103 tablets by ity of tablet 00:00: mouth [place] 00 daily. [facility] Branch allopurinoL Yes [id number] 200mg Take 2 [facility] 100 mg 7-11 9103 tablets by ity of tablet 00:00: mouth [place] 00 daily. [facility] Branch allopurinoL Yes [id number] 200mg Take 2 [facility] 100 mg 7-11 9103 tablets by ity of tablet 00:00: mouth [place] 00 daily. [facility] Branch allopurinoL Yes [id number] 200mg Take 2 [facility] 100 mg 7-11 9103 tablets by ity of tablet 00:00: mouth [place] 00 daily. Medical Branch allopurinoL Yes [id number] 200mg Take 2 [facility] 100 mg 7-11 9103 tablets by [facility]y of tablet 00:00: mouth [place] 00 daily. [facility] Branch allopurinoL Yes [id number] 200mg Take 2 [facility] 100 mg 7-11 9103 tablets by ity of tablet 00:00: mouth [place] 00 daily. [facility] Branch allopurinoL Yes [id number] 200mg Take 2 [facility] 100 mg 7-11 9103 tablets by [facility]y of tablet 00:00: mouth [place] 00 daily. [facility] Branch allopurinoL Yes [id number] 200mg Take 2 [facility] 100 mg 7-11 9103 tablets by [facility]y of tablet 00:00: mouth [place] 00 daily. [facility] Branch allopurinoL Yes [id number] 200mg Take 2 [facility] 100 mg 7-11 9103 tablets by [facility]y of tablet 00:00: mouth [place] 00 daily. Medical Branch allopurinoL Yes [id number] 200mg Take 2 [facility] 100 mg 7-11 9103 tablets by [facility]y of tablet 00:00: mouth [place] 00 daily. Medical Branch allopurinoL Yes [id number] 200mg Take 2 [facility] 100 mg 7-11 9103 tablets by [facility]y of tablet 00:00: mouth [place] 00 daily. Medical Branch allopurinoL Yes [id number] 200mg Take 2 [facility] 100 mg 7-11 9103 tablets by [facility]y of tablet 00:00: mouth [place] 00 daily. Medical Branch allopurinoL Yes [id number] 200mg Take 2 [facility] 100 mg 7-11 9103 tablets by [facility]y of tablet 00:00: mouth [place] 00 daily. Medical Branch allopurinoL Yes [id number] 200mg Take 2 [facility] 100 mg 7-11 9103 tablets by ity of tablet 00:00: mouth [place] 00 daily. Medical Branch allopurinoL Yes [id number] 200mg Take 2 [facility] 100 mg 7-11 9103 tablets by ity of tablet 00:00: mouth [place] 00 daily. Medical Branch allopurinoL Yes [id number] 200mg Take 2 [facility] 100 mg 7-11 9103 tablets by ity of tablet 00:00: mouth [place] 00 daily. Medical Branch allopurinoL Yes [id number] 200mg Take 2 [facility] 100 mg 7-11 9103 tablets by ity of tablet 00:00: mouth [place] 00 daily. Medical Branch allopurinoL Yes [id number] 200mg Take 2 [facility] 100 mg 7-11 9103 tablets by ity of tablet 00:00: mouth [place] 00 daily. Medical Branch allopurinoL Yes [id number] 200mg Take 2 [facility] 100 mg 7-11 9103 tablets by ity of tablet 00:00: mouth [place] 00 daily. [facility] Branch allopurinoL Yes [id number] 200mg Take 2 [facility] 100 mg 7-11 9103 tablets by ity of tablet 00:00: mouth [place] 00 daily. Medical Branch allopurinoL 2021-0 Yes [id number] 200mg Take 2 [facility] 100 mg 7-11 9103 tablets by ity of tablet 00:00: mouth [place] 00 daily. Medical Branch allopurinoL 2020-0 Yes [id number] 200mg Take 2 [facility] 100 mg 7-11 9103 tablets by ity of tablet 00:00: mouth [place] 00 daily. Medical Branch allopurinoL 2020-0 Yes [id number] 200mg Take 2 [facility] 100 mg 7-11 9103 tablets by ity of tablet 00:00: mouth [place] 00 daily. Medical Branch allopurinoL 0 Yes [id number] 200mg Take 2 [facility] 100 mg 7-11 9103 tablets by ity of tablet 00:00: mouth [place] 00 daily. Medical Branch allopurinoL Yes [id number] 200mg Take 2 [facility] 100 [facility] 7-11 9103 tablets by [facility] tablet 00:00: mouth [place] 00 daily. [facility] allopurinoL Yes [id number] 200mg Take 2 [facility] 100 mg 7-11 9103 tablets by [facility] tablet 00:00: mouth [place] 00 daily. [facility] allopurinoL Yes [id number] 200mg Take 2 [facility] 100 mg 7-11 9103 tablets by [facility] tablet 00:00: mouth [place] 00 daily. [facility] allopurinoL Yes [id number] 200mg Take 2 [facility] 100 mg 7-11 9103 tablets by [facility] of tablet 00:00: mouth [place] 00 daily. [facility] allopurinoL Yes [id number] 200mg Take 2 [facility] 100 mg 7-11 9103 tablets by [facility] tablet 00:00: mouth [place] 00 daily. [facility] allopurinoL 2020-0 Yes [id number] 200mg Take 2 [facility] 100 mg 7-11 9103 tablets by [facility] tablet 00:00: mouth [place] 00 daily. [facility] allopurinoL 0 Yes [id number] 200mg Take 2 [facility] 100 mg 7-11 9103 tablets by [facility] tablet 00:00: mouth [place] 00 daily. [facility] allopurinoL 0 Yes [id number] 200mg Take 2 [facility] 100 mg 7-11 9103 tablets by [facility] tablet 00:00: mouth [place] 00 daily. [facility] allopurinoL 0 Yes [id number] 200mg Take 2 [facility] 100 mg 7-11 9103 tablets by [facility] tablet 00:00: mouth [place] 00 daily. [facility] allopurinoL Yes [id number] 200mg Take 2 [facility] 100 mg 7-11 9103 tablets by [facility] of tablet 00:00: mouth [place] 00 daily. [facility] allopurinoL Yes [id number] 200mg Take 2 [facility] 100 mg 7-11 9103 tablets by [facility] tablet 00:00: mouth [place] 00 daily. [facility] allopurinoL Yes [id number] 200mg Take 2 [facility] 100 mg 7-11 9103 tablets by [facility] tablet 00:00: mouth [place] 00 daily. [facility] allopurinoL Yes [id number] 200mg Take 2 [facility] 100 mg 7-11 9103 tablets by [facility] of tablet 00:00: mouth [place] 00 daily. [facility] allopurinoL Yes [id number] 200mg Take 2 [facility] 100 mg 7-11 9103 tablets by [facility] of tablet 00:00: mouth [place] 00 daily. [facility] allopurinoL Yes [id number] 200mg Take 2 [facility] 100 mg 7-11 9103 tablets by [facility] tablet 00:00: mouth [place] 00 daily. [facility] allopurinoL Yes [id number] 200mg Take 2 [facility] 100 mg 7-11 9103 tablets by [facility] of tablet 00:00: mouth [place] 00 daily. [facility] allopurinoL Yes [id number] 200mg Take 2 [facility] 100 mg 7-11 9103 tablets by [facility] tablet 00:00: mouth [place] 00 daily. [facility] allopurinoL Yes [id number] 200mg Take 2 [facility] 100 mg 7-11 9103 tablets by [facility] tablet 00:00: mouth [place] 00 daily. [facility] allopurinoL Yes [id number] 200mg Take 2 [facility] 100 mg 7-11 9103 tablets by [facility] of tablet 00:00: mouth [place] 00 daily. [facility] allopurinoL Yes [id number] 200mg Take 2 [facility] 100 mg 7-11 9103 tablets by [facility] of tablet 00:00: mouth [place] 00 daily. [facility] allopurinoL Yes [id number] 200mg Take 2 [facility] 100 mg 7-11 9103 tablets by [facility] tablet 00:00: mouth [place] 00 daily. [facility] allopurinoL 2020-0 Yes [id number] 200mg Take 2 [facility] 100 mg 7-11 9103 tablets by [facility] tablet 00:00: mouth [place] 00 daily. [facility] allopurinoL 2020-0 Yes [id number] 200mg Take 2 [facility] 100 mg 7-11 9103 tablets by [facility] tablet 00:00: mouth [place] 00 daily. [facility] allopurinoL 2020-0 Yes [id number] 200mg Take 2 [facility] 100 mg 7-11 9103 tablets by [facility] tablet 00:00: mouth [place] 00 daily. [facility] allopurinoL 2020-0 Yes [id number] 200mg Take 2 [facility] 100 mg 7-11 9103 tablets by [facility] tablet 00:00: mouth [place] 00 daily. [facility] allopurinoL 2020-0 Yes [id number] 200mg Take 2 [facility] 100 mg 7-11 9103 tablets by [facility] tablet 00:00: mouth [place] 00 daily. [facility] allopurinoL 0 Yes [id number] 200mg Take 2 [facility] 100 mg 7-11 9103 tablets by [facility] tablet 00:00: mouth [place] 00 daily. [facility] allopurinoL 0 Yes [id number] 200mg Take 2 [facility] 100 mg 7-11 9103 tablets by [facility] tablet 00:00: mouth [place] 00 daily. [facility] allopurinoL 2020-0 Yes [id number] 200mg Take 2 [facility] 100 mg 7-11 9103 tablets by [facility] tablet 00:00: mouth [place] 00 daily. [facility] allopurinoL 2020-0 Yes [id number] 200mg Take 2 [facility] 100 mg 7-11 9103 tablets by [facility] tablet 00:00: mouth [place] 00 daily. [facility] allopurinoL 2020-0 Yes [id number] 200mg Take 2 [facility] 100 mg 7-11 9103 tablets by [facility] tablet 00:00: mouth [place] 00 daily. [facility] allopurinoL 2020-0 Yes [id number] 200mg Take 2 [facility] 100 mg 7-11 9103 tablets by [facility] tablet 00:00: mouth [place] 00 daily. [facility] allopurinoL 2020-0 Yes [id number] 200mg Take 2 [facility] 100 mg 7-11 9103 tablets by [facility] tablet 00:00: mouth [place] 00 daily. [facility] allopurinoL Yes [id number] 200mg Take 2 [facility] 100 mg 7-11 9103 tablets by [facility] tablet 00:00: mouth [place] 00 daily. [facility] allopurinoL Yes [id number] 200mg Take 2 [facility] 100 mg 7-11 9103 tablets by [facility] tablet 00:00: mouth [place] 00 daily. [facility] allopurinoL Yes [id number] 200mg Take 2 [facility] 100 mg 7-11 9103 tablets by [facility] tablet 00:00: mouth [place] 00 daily. [facility] allopurinoL Yes [id number] 200mg Take 2 [facility] 100 mg 7-11 9103 tablets by [facility] tablet 00:00: mouth [place] 00 daily. [facility] allopurinoL Yes [id number] 200mg Take 2 [facility] 100 mg 7-11 9103 tablets by [facility] tablet 00:00: mouth [place] 00 daily. [facility] allopurinoL Yes [id number] 200mg Take 2 [facility] 100 mg 7-11 9103 tablets by [facility] tablet 00:00: mouth [place] 00 daily. [facility] allopurinoL Yes [id number] 200mg Take 2 [facility] 100 mg 7-11 9103 tablets by [facility] tablet 00:00: mouth [place] 00 daily. [facility] allopurinoL Yes [id number] 200mg Take 2 [facility] 100 mg 7-11 9103 tablets by [facility] tablet 00:00: mouth [place] 00 daily. [facility] allopurinoL Yes [id number] 200mg Take 2 [facility] 100 mg 7-11 9103 tablets by [facility] tablet 00:00: mouth [place] 00 daily. [facility] allopurinoL Yes [id number] 200mg Take 2 [facility] 100 mg 7-11 9103 tablets by [facility] of tablet 00:00: mouth [place] 00 daily. [facility] allopurinoL Yes [id number] 200mg Take 2 [facility] 100 mg 7-11 9103 tablets by [facility] of tablet 00:00: mouth [place] 00 daily. [facility] allopurinoL Yes [id number] 200mg Take 2 [facility] 100 mg 7-11 9103 tablets by [facility] tablet 00:00: mouth [place] 00 daily. [facility] allopurinoL Yes [id number] 200mg Take 2 [facility] 100 mg 7-11 9103 tablets by [facility] tablet 00:00: mouth [place] 00 daily. [facility] allopurinoL Yes [id number] 200mg Take 2 [facility] 100 mg 7-11 9103 tablets by [facility] of tablet 00:00: mouth [place] 00 daily. [facility] allopurinoL Yes [id number] 200mg Take 2 [facility] 100 mg 7-11 9103 tablets by [facility] of tablet 00:00: mouth [place] 00 daily. [facility] allopurinoL Yes [id number] 200mg Take 2 [facility] 100 mg 7-11 9103 tablets by [facility] tablet 00:00: mouth [place] 00 daily. [facility] allopurinoL Yes [id number] 200mg Take 2 [facility] 100 mg 7-11 9103 tablets by [facility] tablet 00:00: mouth [place] 00 daily. [facility] allopurinoL Yes [id number] 200mg Take 2 [facility] 100 mg 7-11 9103 tablets by [facility] tablet 00:00: mouth [place] 00 daily. [facility] allopurinoL Yes [id number] 200mg Take 2 [facility] 100 mg 7-11 9103 tablets by [facility] tablet 00:00: mouth [place] 00 daily. [facility] allopurinoL Yes [id number] 200mg Take 2 [facility] 100 mg 7-11 9103 tablets by [facility] tablet 00:00: mouth [place] 00 daily. [facility] allopurinoL Yes [id number] 200mg Take 2 [facility] 100 mg 7-11 9103 tablets by [facility] of tablet 00:00: mouth [place] 00 daily. [facility] allopurinoL Yes [id number] 200mg Take 2 [facility] 100 mg 7-11 9103 tablets by [facility] of tablet 00:00: mouth [place] 00 daily. [facility] allopurinoL Yes [id number] 200mg Take 2 [facility] 100 mg 7-11 9103 tablets by [facility] of tablet 00:00: mouth [place] 00 daily. [facility] allopurinoL Yes [id number] 200mg Take 2 [facility] 100 mg 7-11 9103 tablets by [facility] of tablet 00:00: mouth [place] 00 daily. [facility] allopurinoL 2021-0 Yes [id number] 200mg Take 2 [facility] 100 mg 7-11 9103 tablets by [facility] of tablet 00:00: mouth [place] 00 daily. [facility] allopurinoL 2020-0 Yes [id number] 200mg Take 2 [facility] 100 mg 7-11 9103 tablets by [facility] of tablet 00:00: mouth [place] 00 daily. [facility] allopurinoL 2020-0 Yes [id number] 200mg Take 2 [facility] 100 mg 7-11 9103 tablets by [facility] of tablet 00:00: mouth [place] 00 daily. [facility] allopurinoL 0 Yes [id number] 200mg Take 2 [facility] 100 mg 7-11 9103 tablets by [facility] of tablet 00:00: mouth [place] 00 daily. [facility] allopurinoL Yes [id number] 200mg Take 2 [facility] 100 mg 7-11 9103 tablets by [facility] of tablet 00:00: mouth [place] 00 daily. [facility] allopurinoL Yes [id number] 200mg Take 2 [facility] 100 mg 7-11 9103 tablets by [facility] of tablet 00:00: mouth [place] 00 daily. [facility] allopurinoL Yes [id number] 200mg Take 2 [facility] 100 mg 7-11 9103 tablets by [facility] of tablet 00:00: mouth [place] 00 daily. [facility] allopurinoL Yes [id number] 200mg Take 2 [facility] 100 mg 7-11 9103 tablets by [facility] of tablet 00:00: mouth [place] 00 daily. [facility] allopurinoL Yes [id number] 200mg Take 2 [facility] 100 mg 7-11 9103 tablets by [facility] of tablet 00:00: mouth [place] 00 daily. [facility] allopurinoL 2020-0 Yes [id number] 200mg Take 2 [facility] 100 mg 7-11 9103 tablets by [facility] of tablet 00:00: mouth [place] 00 daily. [facility] allopurinoL 0 Yes [id number] 200mg Take 2 [facility] 100 mg 7-11 9103 tablets by [facility] of tablet 00:00: mouth [place] 00 daily. [facility] allopurinoL Yes [id number] 200mg Take 2 [facility] 100 mg 7-11 9103 tablets by [facility] of tablet 00:00: mouth [place] 00 daily. [facility] allopurinoL 0 Yes [id number] 200mg Take 2 [facility] 100 mg 7-11 9103 tablets by [facility] of tablet 00:00: mouth [place] 00 daily. [facility] allopurinoL Yes [id number] 200mg Take 2 [facility] 100 mg 7-11 9103 tablets by [facility] of tablet 00:00: mouth [place] 00 daily. [facility] allopurinoL Yes [id number] 200mg Take 2 [facility] 100 mg 7-11 9103 tablets by [facility] of tablet 00:00: mouth [place] 00 daily. [facility] allopurinoL Yes [id number] 200mg Take 2 [facility] 100 mg 7-11 9103 tablets by [facility] of tablet 00:00: mouth [place] 00 daily. [facility] allopurinoL Yes [id number] 200mg Take 2 [facility] 100 mg 7-11 9103 tablets by [facility] of tablet 00:00: mouth [place] 00 daily. [facility] allopurinoL Yes [id number] 200mg Take 2 [facility] 100 mg 7-11 9103 tablets by [facility] of tablet 00:00: mouth [place] 00 daily. [facility] allopurinoL Yes [id number] 200mg Take 2 [facility] 100 mg 7-11 9103 tablets by [facility] of tablet 00:00: mouth [place] 00 daily. [facility] allopurinoL Yes [id number] 200mg Take 2 [facility] 100 mg 7-11 9103 tablets by [facility] of tablet 00:00: mouth [place] 00 daily. [facility] allopurinoL Yes [id number] 200mg Take 2 [facility] 100 mg 7-11 9103 tablets by [facility] of tablet 00:00: mouth [place] 00 daily. [facility] allopurinoL Yes [id number] 200mg Take 2 [facility] 100 mg 7-11 9103 tablets by [facility] of tablet 00:00: mouth [place] 00 daily. [facility] allopurinoL Yes [id number] 200mg Take 2 [facility] 100 mg 7-11 9103 tablets by [facility] of tablet 00:00: mouth [place] 00 daily. [facility] allopurinoL Yes [id number] 200mg Take 2 [facility] 100 mg 7-11 9103 tablets by [facility] of tablet 00:00: mouth [place] 00 daily. [facility] allopurinoL Yes [id number] 200mg Take 2 [facility] 100 mg 7-11 9103 tablets by [facility] of tablet 00:00: mouth [place] 00 daily. [facility] allopurinoL Yes [id number] 200mg Take 2 [facility] 100 mg 7-11 9103 tablets by [facility] of tablet 00:00: mouth [place] 00 daily. [facility] allopurinoL Yes [id number] 200mg Take 2 [facility] 100 mg 7-11 9103 tablets by [facility] of tablet 00:00: mouth [place] 00 daily. [facility] allopurinoL Yes [id number] 200mg Take 2 [facility] 100 mg 7-11 9103 tablets by [facility] of tablet 00:00: mouth [place] 00 daily. [facility] allopurinoL Yes [id number] 200mg Take 2 [facility] 100 mg 7-11 9103 tablets by [facility] of tablet 00:00: mouth [place] 00 daily. [facility] allopurinoL Yes [id number] 200mg Take 2 [facility] 100 mg 7-11 9103 tablets by [facility] of tablet 00:00: mouth [place] 00 daily. [facility] allopurinoL Yes [id number] 200mg Take 2 [facility] 100 mg 7-11 9103 tablets by [facility] of tablet 00:00: mouth [place] 00 daily. [facility] allopurinoL Yes [id number] 200mg Take 2 [facility] 100 mg 7-11 9103 tablets by [facility] of tablet 00:00: mouth [place] 00 daily. [facility] allopurinoL 2022- No [id number] 200mg Take 2 [facility] 100 mg 7-11 04-03 9103 tablets by [facility] of tablet 00:00: 00:00 mouth [place] 00 :00 daily. [facility] allopurinoL 2022- No [id number] 200mg Take 2 [facility] 100 mg 7-11 04-03 9103 tablets by [facility] of tablet 00:00: 00:00 mouth [place] 00 :00 daily. [facility] naproxen 2018-11 Yes [id number] 500mg Take 1 [facility] 500 mg 0-03 tablet by [facility] of tablet 00:00: mouth 2 [place] 00 (two) Medical times [facility] daily with meals. naproxen 2018-11 Yes [id number] 500mg Take 1 [facility] [place] 500 mg 0-03 tablet by [facility] tablet 00:00: mouth 2 00 (two) [facility] times [facility] daily with meals. naproxen 2018-11 Yes [id number] 500mg Take 1 [facility] [place] 500 mg 0-03 tablet by [facility] tablet 00:00: mouth (two) [facility] times [facility] daily with meals. naproxen 2018-11 Yes [id number] 500mg Take 1 [facility] [place] 500 mg 0-03 tablet by [facility] tablet 00:00: mouth (two) [facility] times [facility] daily with meals. naproxen 2018-11 Yes [id number] 500mg Take 1 [facility] [place] 500 mg 0-03 tablet by [facility] tablet 00:00: mouth (two) [facility] times [facility] daily with meals. naproxen 2018-11 Yes [id number] 500mg Take 1 [facility] [place] 500 mg 0-03 tablet by [facility] of tablet 00:00: mouth (two) [facility] times [facility] daily with meals. naproxen 2018-11 Yes [id number] 500mg Take 1 [facility] [place] 500 mg 0-03 tablet by [facility] tablet 00:00: mouth (two) [facility] times [facility] daily with meals. naproxen 2018-11 Yes [id number] 500mg Take 1 [facility] [place] 500 mg 0-03 tablet by [facility] tablet 00:00: mouth (two) [facility] times [facility] daily with meals. naproxen 2018-11 Yes [id number] 500mg Take 1 [facility] [place] 500 mg 0-03 tablet by [facility] of tablet 00:00: mouth (two) [facility] times [facility] daily with meals. naproxen 2018-11 Yes [id number] 500mg Take 1 [facility] [place] 500 mg 0-03 tablet by [facility] of tablet 00:00: mouth (two) [facility] times [facility] daily with meals. naproxen 2018-11 Yes [id number] 500mg Take 1 [facility] [place] 500 mg 0-03 tablet by [facility] of tablet 00:00: mouth (two) [facility] times [facility] daily with meals. naproxen 2018-11 Yes [id number] 500mg Take 1 [facility] [place] 500 mg 0-03 tablet by [facility] tablet 00:00: mouth (two) [facility] times [facility] daily with meals. naproxen 2018-11 Yes [id number] 500mg Take 1 [facility] [place] 500 mg 0-03 tablet by [facility] of tablet 00:00: mouth (two) Medical times [facility] daily with meals. naproxen 2018-11 Yes [id number] 500mg Take 1 [facility] [place] 500 mg 0-03 tablet by [facility] of tablet 00:00: mouth 2 [place] 00 (two) Medical times [facility] daily with meals. naproxen 2018-11- No [id number] 500mg Take 1 U nivers 500 mg 0-03 10-20 tablet by [facility] of tablet 00:00: 00:00 mouth 2 [place] 00 :00 (two) Medical times [facility] daily with meals. naproxen 2018-11- No [id number] 500mg Take 1 U nivers 500 mg 0-03 10-20 tablet by [facility] of tablet 00:00: 00:00 mouth 2 [place] 00 :00 (two) Medical times [facility] daily with meals. aspirin 81 2017-0 Yes 81mg Take 1 Unive rs mg EC 6-07 tablet by [facility]y of tablet 00:00: mouth [place] 00 daily. [facility] aspirin 81 2017-0 Yes 81mg Take 1 Unive rs mg EC 6-07 tablet by [facility]y of tablet 00:00: mouth [place] 00 daily. [facility] aspirin 81 2017-0 Yes 81mg Take 1 Unive rs mg EC 6-07 tablet by [facility]y of tablet 00:00: mouth [place] 00 daily. [facility] aspirin 81 2017-0 Yes 81mg Take 1 Unive rs mg EC 6-07 tablet by [facility] of tablet 00:00: mouth [place] 00 daily. [facility] aspirin 81 2017-0 Yes 81mg Take 1 Unive rs mg EC 6-07 tablet by [facility]y of tablet 00:00: mouth [place] 00 daily. [facility] aspirin 81 2017-0 Yes 81mg Take 1 Unive rs mg EC 6-07 tablet by [facility]y of tablet 00:00: mouth [place] 00 daily. [facility] aspirin 81 2017-0 Yes 81mg Take 1 Unive rs mg EC 6-07 tablet by [facility] of tablet 00:00: mouth [place] 00 daily. [facility] aspirin 81 2017-0 Yes 81mg Take 1 Unive rs mg EC 6-07 tablet by [facility] of tablet 00:00: mouth [place] 00 daily. [facility] aspirin 81 2017-0 Yes 81mg Take 1 Unive rs mg EC 6-07 tablet by [facility]y of tablet 00:00: mouth [place] 00 daily. [facility] aspirin 81 2017-0 Yes 81mg Take 1 Unive rs mg EC 6-07 tablet by [facility]y of tablet 00:00: mouth [place] 00 daily. [facility] aspirin 81 2017-0 Yes 81mg Take 1 Unive rs mg EC 6-07 tablet by [facility]y of tablet 00:00: mouth [place] 00 daily. [facility] aspirin 81 2017-0 Yes 81mg Take 1 Unive rs mg EC 6-07 tablet by [facility]y of tablet 00:00: mouth [place] 00 daily. [facility] aspirin 81 2017-0 Yes 81mg Take 1 Unive rs mg EC 6-07 tablet by [facility]y of tablet 00:00: mouth [place] 00 daily. [facility] aspirin 81 2017-0 Yes 81mg Take 1 Unive rs mg EC 6-07 tablet by [facility]y of tablet 00:00: mouth [place] 00 daily. [facility] aspirin 81 2017-0 Yes 81mg Take 1 Unive rs mg EC 6-07 tablet by [facility]y of tablet 00:00: mouth [place] 00 daily. [facility] aspirin 81 2017-0 Yes 81mg Take 1 Unive rs mg EC 6-07 tablet by [facility]y of tablet 00:00: mouth [place] 00 daily. [facility] aspirin 81 2017-0 Yes 81mg Take 1 Unive rs mg EC 6-07 tablet by [facility]y of tablet 00:00: mouth [place] 00 daily. [facility] aspirin 81 2017-0 Yes 81mg Take 1 Unive rs mg EC 6-07 tablet by [facility]y of tablet 00:00: mouth [place] 00 daily. [facility] aspirin 81 2017-0 Yes 81mg Take 1 Unive rs mg EC 6-07 tablet by [facility]y of tablet 00:00: mouth [place] 00 daily. [facility] aspirin 81 2017-0 Yes 81mg Take 1 Unive rs mg EC 6-07 tablet by [facility]y of tablet 00:00: mouth [place] 00 daily. [facility] aspirin 81 2017-0 Yes 81mg Take 1 Unive rs mg EC 6-07 tablet by [facility]y of tablet 00:00: mouth [place] 00 daily. [facility] aspirin 81 2017-0 Yes 81mg Take 1 Unive rs mg EC 6-07 tablet by [facility]y of tablet 00:00: mouth [place] 00 daily. [facility] aspirin 81 2017-0 Yes 81mg Take 1 Unive rs mg EC 6-07 tablet by [facility]y of tablet 00:00: mouth [place] 00 daily. [facility] aspirin 81 2017-0 Yes 81mg Take 1 Unive rs mg EC 6-07 tablet by [facility]y of tablet 00:00: mouth [place] 00 daily. [facility] aspirin 81 2017-0 Yes 81mg Take 1 Unive rs mg EC 6-07 tablet by [facility]y of tablet 00:00: mouth [place] 00 daily. [facility] aspirin 81 2017-0 Yes 81mg Take 1 Unive rs mg EC 6-07 tablet by [facility]y of tablet 00:00: mouth [place] 00 daily. [facility] aspirin 81 2017-0 Yes 81mg Take 1 Unive rs mg EC 6-07 tablet by [facility]y of tablet 00:00: mouth [place] 00 daily. [facility] aspirin 81 2017-0 Yes 81mg Take 1 Unive rs mg EC 6-07 tablet by [facility]y of tablet 00:00: mouth [place] 00 daily. [facility] aspirin 81 2017-0 Yes 81mg Take 1 Unive rs mg EC 6-07 tablet by [facility]y of tablet 00:00: mouth [place] 00 daily. [facility] aspirin 81 2017-0 Yes 81mg Take 1 Unive rs mg EC 6-07 tablet by [facility]y of tablet 00:00: mouth [place] 00 daily. [facility] aspirin 81 2017-0 Yes 81mg Take 1 Unive rs mg EC 6-07 tablet by [facility]y of tablet 00:00: mouth [place] 00 daily. [facility] aspirin 81 2017-0 Yes 81mg Take 1 Unive rs mg EC 6-07 tablet by [facility]y of tablet 00:00: mouth [place] 00 daily. [facility] aspirin 81 2017-0 Yes 81mg Take 1 Unive rs mg EC 6-07 tablet by ity of tablet 00:00: mouth [place] 00 daily. [facility] aspirin 81 2017-0 Yes 81mg Take 1 Unive rs mg EC 6-07 tablet by ity of tablet 00:00: mouth [place] 00 daily. [facility] aspirin 81 2017-0 Yes 81mg Take 1 Unive rs mg EC 6-07 tablet by ity of tablet 00:00: mouth [place] 00 daily. [facility] aspirin 81 2017-0 Yes 81mg Take 1 Unive rs mg EC 6-07 tablet by ity of tablet 00:00: mouth [place] 00 daily. [facility] aspirin 81 2017-0 Yes 81mg Take 1 Unive rs mg EC 6-07 tablet by ity of tablet 00:00: mouth [place] 00 daily. [facility] aspirin 81 2017-0 Yes 81mg Take 1 Unive rs mg EC 6-07 tablet by ity of tablet 00:00: mouth [place] 00 daily. [facility] aspirin 81 2017-0 Yes 81mg Take 1 Unive rs mg EC 6-07 tablet by ity of tablet 00:00: mouth [place] 00 daily. [facility] aspirin 81 2017-0 Yes 81mg Take 1 Unive rs mg EC 6-07 tablet by [facility]y of tablet 00:00: mouth [place] 00 daily. [facility] aspirin 81 2017-0 Yes 81mg Take 1 Unive rs mg EC 6-07 tablet by ity of tablet 00:00: mouth [place] 00 daily. [facility] aspirin 81 2017-0 Yes 81mg Take 1 Unive rs mg EC 6-07 tablet by ity of tablet 00:00: mouth [place] 00 daily. [facility] aspirin 81 2017-0 Yes 81mg Take 1 Unive rs mg EC 6-07 tablet by ity of tablet 00:00: mouth [place] 00 daily. [facility] aspirin 81 2017-0 Yes 81mg Take 1 Unive rs mg EC 6-07 tablet by ity of tablet 00:00: mouth [place] 00 daily. [facility] aspirin 81 2017-0 Yes 81mg Take 1 Unive rs mg EC 6-07 tablet by [facility]y of tablet 00:00: mouth [place] 00 daily. [facility] aspirin 81 2017-0 Yes 81mg Take 1 Unive rs mg EC 6-07 tablet by ity of tablet 00:00: mouth [place] 00 daily. [facility] aspirin 81 2017-0 Yes 81mg Take 1 Unive rs mg EC 6-07 tablet by ity of tablet 00:00: mouth [place] 00 daily. [facility] aspirin 81 2017-0 Yes 81mg Take 1 Unive rs mg EC 6-07 tablet by ity of tablet 00:00: mouth [place] 00 daily. [facility] aspirin 81 2017-0 Yes 81mg Take 1 Unive rs mg EC 6-07 tablet by ity of tablet 00:00: mouth [place] 00 daily. [facility] aspirin 81 2017-0 Yes 81mg Take 1 Unive rs mg EC 6-07 tablet by ity of tablet 00:00: mouth [place] 00 daily. [facility] aspirin 81 2017-0 Yes 81mg Take 1 Unive rs mg EC 6-07 tablet by ity of tablet 00:00: mouth [place] 00 daily. [facility] aspirin 81 2017-0 Yes 81mg Take 1 Unive rs mg EC 6-07 tablet by ity of tablet 00:00: mouth [place] 00 daily. [facility] aspirin 81 2017-0 Yes 81mg Take 1 Unive rs mg EC 6-07 tablet by ity of tablet 00:00: mouth [place] 00 daily. [facility] aspirin 81 2017-0 Yes 81mg Take 1 Unive rs mg EC 6-07 tablet by ity of tablet 00:00: mouth [place] 00 daily. [facility] aspirin 81 2017-0 Yes 81mg Take 1 Unive rs mg EC 6-07 tablet by ity of tablet 00:00: mouth [place] 00 daily. [facility] aspirin 81 2017-0 Yes 81mg Take 1 Unive rs mg EC 6-07 tablet by ity of tablet 00:00: mouth [place] 00 daily. [facility] aspirin 81 2017-0 Yes 81mg Take 1 Unive rs mg EC 6-07 tablet by ity of tablet 00:00: mouth [place] 00 daily. [facility] aspirin 81 2017-0 Yes 81mg Take 1 Unive rs mg EC 6-07 tablet by ity of tablet 00:00: mouth [place] 00 daily. [facility] aspirin 81 2017-0 Yes 81mg Take 1 Unive rs mg EC 6-07 tablet by ity of tablet 00:00: mouth [place] 00 daily. [facility] aspirin 81 2017-0 Yes 81mg Take 1 Unive rs mg EC 6-07 tablet by ity of tablet 00:00: mouth [place] 00 daily. [facility] aspirin 81 2017-0 Yes 81mg Take 1 Unive rs mg EC 6-07 tablet by ity of tablet 00:00: mouth [place] 00 daily. [facility] aspirin 81 2017-0 Yes 81mg Take 1 Unive rs mg EC 6-07 tablet by ity of tablet 00:00: mouth [place] 00 daily. [facility] aspirin 81 2017-0 Yes 81mg Take 1 Unive rs mg EC 6-07 tablet by ity of tablet 00:00: mouth [place] 00 daily. [facility] aspirin 81 2017-0 Yes 81mg Take 1 Unive rs mg EC 6-07 tablet by ity of tablet 00:00: mouth [place] 00 daily. [facility] aspirin 81 2017-0 Yes 81mg Take 1 Unive rs mg EC 6-07 tablet by ity of tablet 00:00: mouth [place] 00 daily. [facility] aspirin 81 2017-0 Yes 81mg Take 1 Unive rs mg EC 6-07 tablet by [facility] of tablet 00:00: mouth [place] 00 daily. [facility] aspirin 81 2017-0 Yes 81mg Take 1 [facility] mg EC 6-07 tablet by [facility] of tablet 00:00: mouth [place] 00 daily. [facility] aspirin 81 2017-0 Yes 81mg Take 1 [facility] mg EC 6-07 tablet by [facility] of tablet 00:00: mouth [place] 00 daily. [facility] aspirin 81 2017-0 Yes 81mg Take 1 [facility] mg EC 6-07 tablet by [facility] of tablet 00:00: mouth [place] 00 daily. [facility] aspirin 81 2017-0 Yes 81mg Take 1 [facility] mg EC 6-07 tablet by [facility] of tablet 00:00: mouth [place] 00 daily. [facility] aspirin 81 2017-0 Yes 81mg Take 1 [facility] mg EC 6-07 tablet by [facility] of tablet 00:00: mouth [place] 00 daily. [facility] aspirin 81 2017-0 Yes 81mg Take 1 [facility] mg EC 6-07 tablet by [facility] of tablet 00:00: mouth [place] 00 daily. [facility] aspirin 81 2017-0 Yes 81mg Take 1 [facility] rs mg EC 6-07 tablet by [facility] of tablet 00:00: mouth [place] 00 daily. [facility] aspirin 81 2017-0 Yes 81mg Take 1 [facility] mg EC 6-07 tablet by [facility] of tablet 00:00: mouth [place] 00 daily. [facility] aspirin 81 2017-0 Yes 81mg Take 1 [facility] mg EC 6-07 tablet by [facility] of tablet 00:00: mouth [place] 00 daily. [facility] aspirin 81 2017-0 Yes 81mg Take 1 [facility] rs mg EC 6-07 tablet by [facility]y of tablet 00:00: mouth [place] 00 daily. [facility] aspirin 81 2017-0 Yes 81mg Take 1 [facility] rs mg EC 6-07 tablet by [facility] of tablet 00:00: mouth [place] 00 daily. [facility] aspirin 81 2017-0 Yes 81mg Take 1 [facility] rs mg EC 6-07 tablet by [facility]y of tablet 00:00: mouth [place] 00 daily. [facility] aspirin 81 2017-0 Yes 81mg Take 1 [facility] rs mg EC 6-07 tablet by [facility] of tablet 00:00: mouth [place] 00 daily. [facility] aspirin 81 2017-0 Yes 81mg Take 1 [facility] rs mg EC 6-07 tablet by [facility] of tablet 00:00: mouth [place] 00 daily. [facility] aspirin 81 2017-0 Yes 81mg Take 1 [facility] rs mg EC 6-07 tablet by [facility] of tablet 00:00: mouth [place] 00 daily. [facility] aspirin 81 2017-0 Yes 81mg Take 1 [facility] rs mg EC 6-07 tablet by [facility] of tablet 00:00: mouth [place] 00 daily. [facility] aspirin 81 2017-0 Yes 81mg Take 1 [facility] rs mg EC 6-07 tablet by [facility] of tablet 00:00: mouth [place] 00 daily. [facility] aspirin 81 2017-0 Yes 81mg Take 1 [facility] mg EC 6-07 tablet by [facility] of tablet 00:00: mouth [place] 00 daily. [facility] aspirin 81 2017-0 Yes 81mg Take 1 [facility] rs mg EC 6-07 tablet by [facility] of tablet 00:00: mouth [place] 00 daily. [facility] aspirin 81 2017-0 Yes 81mg Take 1 [facility] rs mg EC 6-07 tablet by [facility] of tablet 00:00: mouth [place] 00 daily. [facility] aspirin 81 2017-0 Yes 81mg Take 1 [facility] rs mg EC 6-07 tablet by [facility] of tablet 00:00: mouth [place] 00 daily. [facility] aspirin 81 2017-0 Yes 81mg Take 1 [facility] rs mg EC 6-07 tablet by [facility] of tablet 00:00: mouth [place] 00 daily. [facility] aspirin 81 2017-0 Yes 81mg Take 1 [facility] rs mg EC 6-07 tablet by [facility] of tablet 00:00: mouth [place] 00 daily. [facility] aspirin 81 2017-0 Yes 81mg Take 1 [facility] mg EC 6-07 tablet by [facility] of tablet 00:00: mouth [place] 00 daily. [facility] aspirin 81 2017-0 Yes 81mg Take 1 [facility] rs mg EC 6-07 tablet by [facility] of tablet 00:00: mouth [place] 00 daily. [facility] aspirin 81 2017-0 Yes 81mg Take 1 [facility] rs mg EC 6-07 tablet by [facility] of tablet 00:00: mouth [place] 00 daily. [facility] aspirin 81 2017-0 Yes 81mg Take 1 [facility] rs mg EC 6-07 tablet by [facility] of tablet 00:00: mouth [place] 00 daily. [facility] aspirin 81 2017-0 Yes 81mg Take 1 [facility] rs mg EC 6-07 tablet by [facility] of tablet 00:00: mouth [place] 00 daily. [facility] aspirin 81 2017-0 Yes 81mg Take 1 [facility] rs mg EC 6-07 tablet by [facility] of tablet 00:00: mouth [place] 00 daily. [facility] aspirin 81 2017-0 Yes 81mg Take 1 [facility] rs mg EC 6-07 tablet by [facility] of tablet 00:00: mouth [place] 00 daily. [facility] aspirin 81 2017-0 Yes 81mg Take 1 [facility] rs mg EC 6-07 tablet by [facility] of tablet 00:00: mouth [place] 00 daily. [facility] aspirin 81 2017-0 Yes 81mg Take 1 [facility] rs mg EC 6-07 tablet by ity of tablet 00:00: mouth [place] 00 daily. [facility] aspirin 81 2017-0 Yes 81mg Take 1 [facility] rs mg EC 6-07 tablet by [facility] of tablet 00:00: mouth [place] 00 daily. [facility] aspirin 81 2017-0 Yes 81mg Take 1 [facility] rs mg EC 6-07 tablet by [facility] of tablet 00:00: mouth [place] 00 daily. [facility] aspirin 81 2017-0 Yes 81mg Take 1 [facility] rs mg EC 6-07 tablet by [facility] of tablet 00:00: mouth [place] 00 daily. [facility] aspirin 81 2017-0 Yes 81mg Take 1 [facility] rs mg EC 6-07 tablet by [facility] of tablet 00:00: mouth [place] 00 daily. [facility] aspirin 81 2017-0 Yes 81mg Take 1 [facility] rs mg EC 6-07 tablet by [facility] of tablet 00:00: mouth [place] 00 daily. [facility] aspirin 81 2017-0 Yes 81mg Take 1 [facility] rs mg EC 6-07 tablet by [facility] of tablet 00:00: mouth [place] 00 daily. [facility] aspirin 81 2017-0 Yes 81mg Take 1 [facility] rs mg EC 6-07 tablet by [facility] of tablet 00:00: mouth [place] 00 daily. [facility] aspirin 81 2017-0 Yes 81mg Take 1 [facility] rs mg EC 6-07 tablet by [facility] of tablet 00:00: mouth [place] 00 daily. [facility] aspirin 81 2017-0 Yes 81mg Take 1 [facility] rs mg EC 6-07 tablet by [facility] of tablet 00:00: mouth [place] 00 daily. [facility] aspirin 81 2017-0 Yes 81mg Take 1 [facility] rs mg EC 6-07 tablet by [facility] of tablet 00:00: mouth [place] 00 daily. [facility] aspirin 81 2017-0 Yes 81mg Take 1 [facility] rs mg EC 6-07 tablet by [facility] of tablet 00:00: mouth [place] 00 daily. [facility] aspirin 81 2017-0 Yes 81mg Take 1 [facility] rs mg EC 6-07 tablet by [facility] of tablet 00:00: mouth [place] 00 daily. [facility] aspirin 81 2017-0 Yes 81mg Take 1 [facility] rs mg EC 6-07 tablet by [facility] of tablet 00:00: mouth [place] 00 daily. [facility] aspirin 81 2017-0 Yes 81mg Take 1 [facility] rs mg EC 6-07 tablet by [facility] of tablet 00:00: mouth [place] 00 daily. [facility] aspirin 81 2017-0 Yes 81mg Take 1 [facility] rs mg EC 6-07 tablet by [facility] of tablet 00:00: mouth [place] 00 daily. [facility] aspirin 81 2017-0 Yes 81mg Take 1 [facility] rs mg EC 6-07 tablet by [facility] of tablet 00:00: mouth [place] 00 daily. [facility] aspirin 81 2017-0 Yes 81mg Take 1 [facility] rs mg EC 6-07 tablet by [facility] of tablet 00:00: mouth [place] 00 daily. [facility] aspirin 81 2017-0 Yes 81mg Take 1 [facility] mg EC 6-07 tablet by [facility] of tablet 00:00: mouth [place] 00 daily. [facility] aspirin 81 2017-0 Yes 81mg Take 1 [facility] mg EC 6-07 tablet by [facility] of tablet 00:00: mouth [place] 00 daily. [facility] aspirin 81 2017-0 Yes 81mg Take 1 [facility] mg EC 6-07 tablet by [facility] of tablet 00:00: mouth [place] 00 daily. [facility] aspirin 81 2017-0 Yes 81mg Take 1 [facility] mg EC 6-07 tablet by [facility] of tablet 00:00: mouth [place] 00 daily. [facility] aspirin 81 2017-0 Yes 81mg Take 1 [facility] rs mg EC 6-07 tablet by [facility] of tablet 00:00: mouth [place] 00 daily. [facility] aspirin 81 2017-0 Yes 81mg Take 1 [facility] rs mg EC 6-07 tablet by [facility] of tablet 00:00: mouth [place] 00 daily. [facility] aspirin 81 2017-0 Yes 81mg Take 1 [facility] rs mg EC 6-07 tablet by it[facility] of tablet 00:00: mouth [place] 00 daily. [facility] aspirin 81 2017-0 Yes 81mg Take 1 [facility] rs mg EC 6-07 tablet by [facility] of tablet 00:00: mouth [place] 00 daily. [facility] aspirin 81 2017-0 Yes 81mg Take 1 [facility] rs mg EC 6-07 tablet by [facility] of tablet 00:00: mouth [place] 00 daily. [facility] aspirin 81 2017-0 Yes 81mg Take 1 [facility] rs mg EC 6-07 tablet by [facility] of tablet 00:00: mouth [place] 00 daily. [facility] aspirin 81 2017-0 Yes 81mg Take 1 Un[facility] rs mg EC 6-07 tablet by [facility] of tablet 00:00: mouth [place] 00 daily. [facility] aspirin 81 2017-0 Yes 81mg Take 1 [facility] rs mg EC 6-07 tablet by [facility] of tablet 00:00: mouth [place] 00 daily. [facility] aspirin 81 2017-0 Yes 81mg Take 1 [facility] rs mg EC 6-07 tablet by it[facility] of tablet 00:00: mouth [place] 00 daily. [facility] aspirin 81 2017-0 Yes 81mg Take 1 Un[facility] rs mg EC 6-07 tablet by it[facility] of tablet 00:00: mouth [place] 00 daily. [facility] aspirin 81 2017-0 Yes 81mg Take 1 [facility] rs mg EC 6-07 tablet by [facility] of tablet 00:00: mouth [place] 00 daily. [facility] aspirin 81 2017-0 Yes 81mg Take 1 [facility] rs mg EC 6-07 tablet by [facility] of tablet 00:00: mouth [place] 00 daily. [facility] aspirin 81 2017-0 Yes 81mg Take 1 [facility] rs mg EC 6-07 tablet by [facility] of tablet 00:00: mouth [place] 00 daily. [facility] aspirin 81 2017-0 Yes 81mg Take 1 [facility] rs mg EC 6-07 tablet by ity of tablet 00:00: mouth [place] 00 daily. [facility] aspirin 81 2017-0 Yes 81mg Take 1 Un[facility] rs mg EC 6-07 tablet by ity of tablet 00:00: mouth [place] 00 daily. [facility] aspirin 81 2017-0 Yes 81mg Take 1 Un[facility] rs mg EC 6-07 tablet by it[facility] of tablet 00:00: mouth [place] 00 daily. [facility] aspirin 81 2017-0 Yes 81mg Take 1 Un[facility] rs mg EC 6-07 tablet by it[facility] of tablet 00:00: mouth [place] 00 daily. [facility] aspirin 81 2017-0 Yes 81mg Take 1 [facility] rs mg EC 6-07 tablet by [facility] of tablet 00:00: mouth [place] 00 daily. [facility] aspirin 81 2017-0 Yes 81mg Take 1 Un[facility] rs mg EC 6-07 tablet by [facility]y of tablet 00:00: mouth [place] 00 daily. [facility] aspirin 81 2017-0 Yes 81mg Take 1 Unive rs mg EC 6-07 tablet by ity of tablet 00:00: mouth [place] 00 daily. [facility] aspirin 81 2017-0 Yes 81mg Take 1 Unive rs mg EC 6-07 tablet by ity of tablet 00:00: mouth [place] 00 daily. [facility] aspirin 81 2017-0 Yes 81mg Take 1 Unive rs mg EC 6-07 tablet by ity of tablet 00:00: mouth [place] 00 daily. [facility] aspirin 81 2017-0 Yes 81mg Take 1 Unive rs mg EC 6-07 tablet by ity of tablet 00:00: mouth [place] 00 daily. [facility] aspirin 81 2017-0 Yes 81mg Take 1 Unive rs mg EC 6-07 tablet by ity of tablet 00:00: mouth [place] 00 daily. [facility] blood sugar 2015-11 Yes [id number] [facility] 2-02 TID, DX: ity o f (BLOOD 00:00: E11.40 [place] GLUCOSE 00 Medical TEST) [facility] blood sugar 2015-11 Yes [id number] Testing [facility] diagnostic 2-02 TID, DX: ity o f (BLOOD 00:00: E11.40 [place] GLUCOSE 00 Medical TEST) [facility] [place] blood sugar 2015-11 Yes [id number] Testing [facility] diagnostic 2-02 TID, DX: ity o f (BLOOD 00:00: E11.40 [place] GLUCOSE 00 Medical TEST) strip [place] blood sugar 2015-11 Yes [id number] Testing [facility] diagnostic 2-02 TID, DX: ity o f (BLOOD 00:00: E11.40 [place] GLUCOSE 00 Medical TEST) strip [place] blood sugar 2015-11 Yes [id number] Testing [facility] diagnostic 2-02 TID, DX: ity o f (BLOOD 00:00: E11.40 [place] GLUCOSE 00 Medical TEST) strip Branch blood sugar 2015-11 Yes [id number] Testing [facility] diagnostic 2-02 TID, DX: ity o f (BLOOD 00:00: E11.40 [place] GLUCOSE 00 Medical TEST) strip [facility] blood sugar 2015-11 Yes [id number] Testing [facility] diagnostic 2-02 TID, DX: ity o f (BLOOD 00:00: E11.40 [place] GLUCOSE 00 Medical TEST) strip [facility] blood sugar 2015-11 Yes [id number] Testing [facility] diagnostic 2-02 TID, DX: ity o f (BLOOD 00:00: E11.40 [place] GLUCOSE 00 Medical TEST) strip [place] blood sugar 2015-11 Yes [id number] Testing [facility] diagnostic 2-02 TID, DX: ity o f (BLOOD 00:00: E11.40 [place] GLUCOSE 00 Medical TEST) strip [facility] blood sugar 2015-11 Yes [id number] Testing [facility] diagnostic 2-02 TID, DX: ity o f (BLOOD 00:00: E11.40 [place] GLUCOSE 00 Medical TEST) strip [facility] blood sugar 2015-11 Yes [id number] Testing [facility] diagnostic 2-02 TID, DX: ity o f (BLOOD 00:00: E11.40 [place] GLUCOSE 00 Medical TEST) strip [facility] blood sugar 2015-11 Yes [id number] Testing [facility] diagnostic 2-02 TID, DX: ity o f (BLOOD 00:00: E11.40 [place] GLUCOSE 00 Medical TEST) strip [facility] blood sugar 2015-11 Yes [id number] Testing [facility] diagnostic 2-02 TID, DX: ity o f (BLOOD 00:00: E11.40 [place] GLUCOSE 00 Medical TEST) strip [facility] blood sugar 2015-11 Yes [id number] Testing [facility] diagnostic 2-02 TID, DX: ity o f (BLOOD 00:00: E11.40 [place] GLUCOSE 00 Medical TEST) strip [facility] blood sugar 2015-11 Yes [id number] Testing [facility] diagnostic 2-02 TID, DX: ity o f (BLOOD 00:00: E11.40 [place] GLUCOSE 00 Medical TEST) strip [facility] blood sugar 2015-11 Yes [id number] Testing [facility] diagnostic 2-02 TID, DX: ity o f (BLOOD 00:00: E11.40 [place] GLUCOSE 00 Medical TEST) strip [facility] blood sugar 2015-11 Yes [id number] Testing [facility] diagnostic 2-02 TID, DX: ity o f (BLOOD 00:00: E11.40 [place] GLUCOSE 00 Medical TEST) strip [facility] blood sugar 2015-11 Yes [id number] Testing [facility] diagnostic 2-02 TID, DX: ity o f (BLOOD 00:00: E11.40 [place] GLUCOSE 00 Medical TEST) strip [facility] blood sugar 2015-11 Yes [id number] Testing [facility] diagnostic 2-02 TID, DX: ity o f (BLOOD 00:00: E11.40 [place] GLUCOSE 00 Medical TEST) strip [facility] blood sugar 2015-11 Yes [id number] Testing [facility] diagnostic 2-02 TID, DX: ity o f (BLOOD 00:00: E11.40 [place] GLUCOSE 00 Medical TEST) strip [facility] blood sugar 2015-11 Yes [id number] Testing [facility] diagnostic 2-02 TID, DX: ity o f (BLOOD 00:00: E11.40 [place] GLUCOSE 00 Medical TEST) strip [facility] blood sugar 2015-11 Yes [id number] Testing [facility] diagnostic 2-02 TID, DX: ity o f (BLOOD 00:00: E11.40 [place] GLUCOSE 00 Medical TEST) strip [facility] blood sugar 2015-11 Yes [id number] Testing [facility] diagnostic 2-02 TID, DX: ity o f (BLOOD 00:00: E11.40 [place] GLUCOSE 00 Medical TEST) strip Branch blood sugar 2015-11 Yes [id number] Testing [facility] diagnostic 2-02 TID, DX: ity o f (BLOOD 00:00: E11.40 [place] GLUCOSE 00 Medical TEST) strip Branch blood sugar 2015-11 Yes [id number] Testing [facility] diagnostic 2-02 TID, DX: ity o f (BLOOD 00:00: E11.40 [place] GLUCOSE 00 Medical TEST) strip [facility] blood sugar 2015-11 Yes [id number] Testing [facility] diagnostic 2-02 TID, DX: ity o f (BLOOD 00:00: E11.40 [place] GLUCOSE 00 Medical TEST) strip Branch blood sugar 2015-11 Yes [id number] Testing [facility] diagnostic 2-02 TID, DX: ity o f (BLOOD 00:00: E11.40 [place] GLUCOSE 00 Medical TEST) strip Branch blood sugar 2015-11 Yes [id number] Testing [facility] diagnostic 2-02 TID, DX: ity o f (BLOOD 00:00: E11.40 [place] GLUCOSE 00 Medical TEST) strip [facility] blood sugar 2015-11 Yes [id number] Testing [facility] diagnostic 2-02 TID, DX: ity o f (BLOOD 00:00: E11.40 [place] GLUCOSE 00 Medical TEST) strip [facility] blood sugar 2015-11 Yes [id number] Testing [facility] diagnostic 2-02 TID, DX: ity o f (BLOOD 00:00: E11.40 [place] GLUCOSE 00 Medical TEST) strip [facility] blood sugar 2015-11 Yes [id number] Testing [facility] diagnostic 2-02 TID, DX: ity o f (BLOOD 00:00: E11.40 [place] GLUCOSE 00 Medical TEST) strip [facility] blood sugar 2015-11 Yes [id number] Testing [facility] diagnostic 2-02 TID, DX: ity o f (BLOOD 00:00: E11.40 [place] GLUCOSE 00 Medical TEST) strip [facility] blood sugar 2015-11 Yes [id number] Testing [facility] diagnostic 2-02 TID, DX: ity o f (BLOOD 00:00: E11.40 [place] GLUCOSE 00 Medical TEST) strip [facility] blood sugar 2015-11 Yes [id number] Testing [facility] diagnostic 2-02 TID, DX: ity o f (BLOOD 00:00: E11.40 [place] GLUCOSE 00 Medical TEST) strip [facility] blood sugar 2015-11 Yes [id number] Testing [facility] diagnostic 2-02 TID, DX: ity o f (BLOOD 00:00: E11.40 [place] GLUCOSE 00 Medical TEST) strip [facility] blood sugar 2015-11 Yes [id number] Testing [facility] diagnostic 2-02 TID, DX: ity o f (BLOOD 00:00: E11.40 [place] GLUCOSE 00 Medical TEST) strip [facility] blood sugar 2015-11 Yes [id number] Testing [facility] diagnostic 2-02 TID, DX: ity o f (BLOOD 00:00: E11.40 [place] GLUCOSE 00 Medical TEST) strip [facility] blood sugar 2015-11 Yes [id number] Testing [facility] diagnostic 2-02 TID, DX: ity o f (BLOOD 00:00: E11.40 [place] GLUCOSE 00 Medical TEST) strip [facility] blood sugar 2015-11 Yes [id number] Testing [facility] diagnostic 2-02 TID, DX: ity o f (BLOOD 00:00: E11.40 [place] GLUCOSE 00 Medical TEST) strip [facility] blood sugar 2015-11 Yes [id number] Testing [facility] diagnostic 2-02 TID, DX: ity o f (BLOOD 00:00: E11.40 [place] GLUCOSE 00 Medical TEST) strip [facility] blood sugar 2015-11 Yes [id number] Testing [facility] diagnostic 2-02 TID, DX: ity o f (BLOOD 00:00: E11.40 [place] GLUCOSE 00 Medical TEST) strip [facility] blood sugar 2015-11 Yes [id number] Testing [facility] diagnostic 2-02 TID, DX: ity o f (BLOOD 00:00: E11.40 [place] GLUCOSE 00 Medical TEST) strip [facility] blood sugar 2015-11 Yes [id number] Testing [facility] diagnostic 2-02 TID, DX: ity o f (BLOOD 00:00: E11.40 [place] GLUCOSE 00 Medical TEST) strip [facility] blood sugar 2015-11 Yes [id number] Testing [facility] diagnostic 2-02 TID, DX: ity o f (BLOOD 00:00: E11.40 [place] GLUCOSE 00 Medical TEST) strip [facility] blood sugar 2015-11 Yes [id number] Testing [facility] diagnostic 2-02 TID, DX: ity o f (BLOOD 00:00: E11.40 [place] GLUCOSE 00 Medical TEST) strip [facility] blood sugar 2015-11 Yes [id number] Testing [facility] diagnostic 2-02 TID, DX: ity o f (BLOOD 00:00: E11.40 [place] GLUCOSE 00 Medical TEST) strip [facility] blood sugar 2015-11 Yes [id number] Testing [facility] diagnostic 2-02 TID, DX: ity o f (BLOOD 00:00: E11.40 [place] GLUCOSE 00 Medical TEST) strip [facility] blood sugar 2015-11 Yes [id number] Testing [facility] diagnostic 2-02 TID, DX: ity o f (BLOOD 00:00: E11.40 [place] GLUCOSE 00 Medical TEST) strip [facility] blood sugar 2015-11 Yes [id number] Testing [facility] diagnostic 2-02 TID, DX: ity o f (BLOOD 00:00: E11.40 [place] GLUCOSE 00 Medical TEST) strip [facility] blood sugar 2015-11 Yes [id number] Testing [facility] diagnostic 2-02 TID, DX: ity o f (BLOOD 00:00: E11.40 [place] GLUCOSE 00 Medical TEST) strip [facility] blood sugar 2015-11 Yes [id number] Testing [facility] diagnostic 2-02 TID, DX: ity o f (BLOOD 00:00: E11.40 [place] GLUCOSE 00 Medical TEST) strip [facility] blood sugar 2015-11 Yes [id number] Testing [facility] diagnostic 2-02 TID, DX: ity o f (BLOOD 00:00: E11.40 [place] GLUCOSE 00 Medical TEST) strip [facility] blood sugar 2015-11 Yes [id number] Testing [facility] diagnostic 2-02 TID, DX: ity o f (BLOOD 00:00: E11.40 [place] GLUCOSE 00 Medical TEST) strip [facility] blood sugar 2015-11 Yes [id number] Testing [facility] diagnostic 2-02 TID, DX: ity o f (BLOOD 00:00: E11.40 [place] GLUCOSE 00 Medical TEST) strip [facility] blood sugar 2015-11 Yes [id number] Testing [facility] diagnostic 2-02 TID, DX: ity o f (BLOOD 00:00: E11.40 [place] GLUCOSE 00 Medical TEST) strip [facility] blood sugar 2015-11 Yes [id number] Testing [facility] diagnostic 2-02 TID, DX: ity o f (BLOOD 00:00: E11.40 [place] GLUCOSE 00 Medical TEST) strip [facility] blood sugar 2015-11 Yes [id number] Testing [facility] diagnostic 2-02 TID, DX: ity o f (BLOOD 00:00: E11.40 [place] GLUCOSE 00 Medical TEST) strip [facility] blood sugar 2015-11 Yes [id number] Testing [facility] diagnostic 2-02 TID, DX: ity o f (BLOOD 00:00: E11.40 [place] GLUCOSE 00 Medical TEST) strip [facility] blood sugar 2015-11 Yes [id number] Testing [facility] diagnostic 2-02 TID, DX: ity o f (BLOOD 00:00: E11.40 [place] GLUCOSE 00 Medical TEST) strip [facility] blood sugar 2015-11 Yes [id number] Testing [facility] diagnostic 2-02 TID, DX: ity o f (BLOOD 00:00: E11.40 [place] GLUCOSE 00 Medical TEST) strip [facility] blood sugar 2015-11 Yes [id number] Testing [facility] diagnostic 2-02 TID, DX: ity o f (BLOOD 00:00: E11.40 [place] GLUCOSE 00 Medical TEST) strip [facility] blood sugar 2015-11 Yes [id number] Testing [facility] diagnostic 2-02 TID, DX: ity o f (BLOOD 00:00: E11.40 [place] GLUCOSE 00 Medical TEST) strip [facility] blood sugar 2015-11 Yes [id number] Testing [facility] diagnostic 2-02 TID, DX: ity o f (BLOOD 00:00: E11.40 [place] GLUCOSE 00 Medical TEST) strip [facility] blood sugar 2015-11 Yes [id number] Testing [facility] diagnostic 2-02 TID, DX: ity o f (BLOOD 00:00: E11.40 [place] GLUCOSE 00 Medical TEST) strip [facility] blood sugar 2015-11 Yes [id number] Testing [facility] diagnostic 2-02 TID, DX: ity o f (BLOOD 00:00: E11.40 [place] GLUCOSE 00 Medical TEST) strip [facility] blood sugar 2015-11 Yes [id number] Testing [facility] diagnostic 2-02 TID, DX: ity o f (BLOOD 00:00: E11.40 [place] GLUCOSE 00 Medical TEST) strip [facility] blood sugar 2015-11 Yes [id number] Testing [facility] diagnostic 2-02 TID, DX: ity o f (BLOOD 00:00: E11.40 [place] GLUCOSE 00 Medical TEST) strip [facility] blood sugar 2015-11 Yes [id number] Testing [facility] diagnostic 2-02 TID, DX: ity o f (BLOOD 00:00: E11.40 [place] GLUCOSE 00 Medical TEST) strip [facility] blood sugar 2015-11 Yes [id number] Testing [facility] diagnostic 2-02 TID, DX: ity o f (BLOOD 00:00: E11.40 [place] GLUCOSE 00 Medical TEST) strip [facility] blood sugar 2015-11 Yes [id number] Testing [facility] diagnostic 2-02 TID, DX: ity o f (BLOOD 00:00: E11.40 [place] GLUCOSE 00 Medical TEST) strip [facility] blood sugar 2015-11 Yes [id number] Testing [facility] diagnostic 2-02 TID, DX: ity o f (BLOOD 00:00: E11.40 [place] GLUCOSE 00 Medical TEST) strip [facility] blood sugar 2015-11 Yes [id number] Testing [facility] diagnostic 2-02 TID, DX: ity o f (BLOOD 00:00: E11.40 [place] GLUCOSE 00 Medical TEST) strip [facility] blood sugar 2015-11 Yes [id number] Testing [facility] diagnostic 2-02 TID, DX: ity o f (BLOOD 00:00: E11.40 [place] GLUCOSE 00 Medical TEST) strip [facility] blood sugar 2015-11 Yes [id number] Testing [facility] diagnostic 2-02 TID, DX: ity o f (BLOOD 00:00: E11.40 [place] GLUCOSE 00 Medical TEST) strip [facility] blood sugar 2015-11 Yes [id number] Testing [facility] diagnostic 2-02 TID, DX: ity o f (BLOOD 00:00: E11.40 [place] GLUCOSE 00 Medical TEST) strip [facility] blood sugar 2015-11 Yes [id number] Testing [facility] diagnostic 2-02 TID, DX: ity o f (BLOOD 00:00: E11.40 [place] GLUCOSE 00 Medical TEST) strip Branch blood sugar 2015-11 Yes [id number] Testing [facility] diagnostic 2-02 TID, DX: ity o f (BLOOD 00:00: E11.40 [place] GLUCOSE 00 Medical TEST) strip [facility] blood sugar 2015-11 Yes [id number] Testing [facility] diagnostic 2-02 TID, DX: ity o f (BLOOD 00:00: E11.40 [place] GLUCOSE 00 Medical TEST) strip [facility] blood sugar 2015-11 Yes [id number] Testing [facility] diagnostic 2-02 TID, DX: ity o f (BLOOD 00:00: E11.40 [place] GLUCOSE 00 Medical TEST) strip [facility] blood sugar 2015-11 Yes [id number] Testing [facility] diagnostic 2-02 TID, DX: ity o f (BLOOD 00:00: E11.40 [place] GLUCOSE 00 Medical TEST) strip [facility] blood sugar 2015-11 Yes [id number] Testing [facility] diagnostic 2-02 TID, DX: ity o f (BLOOD 00:00: E11.40 [place] GLUCOSE 00 Medical TEST) strip [facility] blood sugar 2015-11 Yes [id number] Testing [facility] diagnostic 2-02 TID, DX: ity o f (BLOOD 00:00: E11.40 [place] GLUCOSE 00 Medical TEST) strip [facility] blood sugar 2015-11 Yes [id number] Testing [facility] diagnostic 2-02 TID, DX: ity o f (BLOOD 00:00: E11.40 [place] GLUCOSE 00 Medical TEST) strip [facility] blood sugar 2015-11 Yes [id number] Testing [facility] diagnostic 2-02 TID, DX: ity o f (BLOOD 00:00: E11.40 [place] GLUCOSE 00 Medical TEST) strip [facility] blood sugar 2015-11 Yes [id number] Testing [facility] diagnostic 2-02 TID, DX: ity o f (BLOOD 00:00: E11.40 [place] GLUCOSE 00 Medical TEST) strip [facility] blood sugar 2015-11 Yes [id number] Testing [facility] diagnostic 2-02 TID, DX: ity o f (BLOOD 00:00: E11.40 [place] GLUCOSE 00 Medical TEST) strip [facility] blood sugar 2015-11 Yes [id number] Testing [facility] diagnostic 2-02 TID, DX: ity o f (BLOOD 00:00: E11.40 [place] GLUCOSE 00 Medical TEST) strip [facility] blood sugar 2015-11 Yes [id number] Testing [facility] diagnostic 2-02 TID, DX: ity o f (BLOOD 00:00: E11.40 [place] GLUCOSE 00 Medical TEST) strip [facility] blood sugar 2015-11 Yes [id number] Testing [facility] diagnostic 2-02 TID, DX: ity o f (BLOOD 00:00: E11.40 [place] GLUCOSE 00 Medical TEST) strip [facility] blood sugar 2015-11 Yes [id number] Testing [facility] diagnostic 2-02 TID, DX: ity o f (BLOOD 00:00: E11.40 [place] GLUCOSE 00 Medical TEST) strip [facility] blood sugar 2015-11 Yes [id number] Testing [facility] diagnostic 2-02 TID, DX: ity o f (BLOOD 00:00: E11.40 [place] GLUCOSE 00 Medical TEST) strip [facility] blood sugar 2015-11 Yes [id number] Testing [facility] diagnostic 2-02 TID, DX: ity o f (BLOOD 00:00: E11.40 [place] GLUCOSE 00 Medical TEST) strip [facility] blood sugar 2015-11 Yes [id number] Testing [facility] diagnostic 2-02 TID, DX: ity o f (BLOOD 00:00: E11.40 [place] GLUCOSE 00 Medical TEST) strip [facility] blood sugar 2015-11 Yes [id number] Testing [facility] diagnostic 2-02 TID, DX: ity o f (BLOOD 00:00: E11.40 [place] GLUCOSE 00 Medical TEST) strip [facility] blood sugar 2015-11 Yes [id number] Testing [facility] diagnostic 2-02 TID, DX: ity o f (BLOOD 00:00: E11.40 [place] GLUCOSE 00 Medical TEST) strip Branch blood sugar 2015-11 Yes [id number] Testing [facility] diagnostic 2-02 TID, DX: ity o f (BLOOD 00:00: E11.40 [place] GLUCOSE 00 Medical TEST) strip Branch blood sugar 2015-11 Yes [id number] Testing [facility] diagnostic 2-02 TID, DX: ity o f (BLOOD 00:00: E11.40 [place] GLUCOSE 00 Medical TEST) strip Branch blood sugar 2015-11 Yes [id number] Testing [facility] diagnostic 2-02 TID, DX: ity o f (BLOOD 00:00: E11.40 [place] [facility] 00 Medical TEST) strip Branch blood sugar 2015-11 Yes [id number] Testing [facility] TID, DX: ity o f (BLOOD 00:00: E11.40 [place] [facility] 00 Medical TEST) strip Branch blood sugar 2015-11 Yes [id number] Testing [facility] diagnostic 2-02 TID, DX: ity o f (BLOOD 00:00: E11.40 [place] [facility] 00 Medical TEST) strip Branch blood sugar 2015-11 Yes [id number] Testing [facility] diagnostic 2-02 TID, DX: ity o f (BLOOD 00:00: E11.40 [place] [facility] 00 Medical TEST) strip Branch blood sugar 2015-11 Yes [id number] Testing [facility] diagnostic 2-02 TID, DX: ity o f (BLOOD 00:00: E11.40 [place] [facility] 00 Medical TEST) strip Branch blood sugar 2015-11 Yes [id number] Testing [facility] diagnostic 2-02 TID, DX: ity o f (BLOOD 00:00: E11.40 [place] [facility] 00 Medical TEST) strip Branch blood sugar 2015-11 Yes [id number] Testing [facility] diagnostic 2-02 TID, DX: ity o f (BLOOD 00:00: E11.40 [place] [facility] 00 Medical TEST) strip Branch blood sugar 2015-11 Yes [id number] Testing [facility] diagnostic 2-02 TID, DX: ity o f (BLOOD 00:00: E11.40 [place] [facility] 00 Medical TEST) strip Branch blood sugar 2015-11 Yes [id number] Testing [facility] diagnostic 2-02 TID, DX: ity o f (BLOOD 00:00: E11.40 [place] [facility] 00 Medical TEST) strip Branch blood sugar 2015-11 Yes [id number] Testing [facility] diagnostic 2-02 TID, DX: ity o f (BLOOD 00:00: E11.40 [place] [facility] 00 Medical TEST) strip Branch blood sugar 2015-11 Yes [id number] Testing [facility] diagnostic 2-02 TID, DX: ity o f (BLOOD 00:00: E11.40 [place] [facility] 00 Medical TEST) strip Branch blood sugar 2015-11 Yes [id number] Testing [facility] diagnostic 2-02 TID, DX: ity o f (BLOOD 00:00: E11.40 [place] [facility] 00 Medical TEST) strip Branch blood sugar 2015-11 Yes [id number] Testing [facility] diagnostic 2-02 TID, DX: ity o f (BLOOD 00:00: E11.40 [place] [facility] 00 Medical TEST) strip Branch blood sugar 2015-11 Yes [id number] Testing [facility] diagnostic 2-02 TID, DX: ity o f (BLOOD 00:00: E11.40 [place] [facility] 00 Medical TEST) strip Branch blood sugar 2015-11 Yes [id number] Testing [facility] diagnostic 2-02 TID, DX: ity o f (BLOOD 00:00: E11.40 [place] [facility] 00 Medical TEST) strip Branch blood sugar 2015-11 Yes [id number] Testing [facility] diagnostic 2-02 TID, DX: ity o f (BLOOD 00:00: E11.40 [place] [facility] 00 Medical TEST) strip Branch blood sugar 2015-11 Yes [id number] Testing [facility] diagnostic 2-02 TID, DX: ity o f (BLOOD 00:00: E11.40 [place] [facility] 00 Medical TEST) strip Branch blood sugar 2015-11 Yes [id number] Testing [facility] diagnostic 2-02 TID, DX: ity o f (BLOOD 00:00: E11.40 [place] [facility] 00 Medical TEST) strip Branch blood sugar 2015-11 Yes [id number] Testing [facility] diagnostic 2-02 TID, DX: ity o f (BLOOD 00:00: E11.40 [place] [facility] 00 Medical TEST) strip Branch blood sugar 2015-11 Yes [id number] Testing [facility] diagnostic 2-02 TID, DX: ity o f (BLOOD 00:00: E11.40 [place] [facility] 00 Medical TEST) strip Branch blood sugar 2015-11 Yes [id number] Testing [facility] diagnostic 2-02 TID, DX: ity o f (BLOOD 00:00: E11.40 [place] [facility] 00 Medical TEST) strip Branch blood sugar 2015-11 Yes [id number] Testing [facility] diagnostic 2-02 TID, DX: ity o f (BLOOD 00:00: E11.40 [place] [facility] 00 Medical TEST) strip Branch blood sugar 2015-11 Yes [id number] Testing [facility] diagnostic 2-02 TID, DX: ity o f (BLOOD 00:00: E11.40 [place] [facility] 00 Medical TEST) strip Branch blood sugar 2015-11 Yes [id number] Testing [facility] diagnostic 2-02 TID, DX: ity o f (BLOOD 00:00: E11.40 [place] [facility] 00 Medical TEST) strip Branch blood sugar 2015-11 Yes [id number] Testing [facility] diagnostic 2-02 TID, DX: ity o f (BLOOD 00:00: E11.40 [place] [facility] 00 Medical TEST) strip Branch blood sugar 2015-11 Yes [id number] Testing [facility] diagnostic 2-02 TID, DX: ity o f (BLOOD 00:00: E11.40 [place] [facility] 00 Medical TEST) strip Branch blood sugar 2015-11 Yes [id number] Testing [facility] diagnostic 2-02 TID, DX: ity o f (BLOOD 00:00: E11.40 [place] [facility] 00 Medical TEST) strip Branch blood sugar 2015-11 Yes [id number] Testing [facility] diagnostic 2-02 TID, DX: ity o f (BLOOD 00:00: E11.40 [place] [facility] 00 Medical TEST) strip Branch blood sugar 2015-11 Yes [id number] Testing [facility] diagnostic 2-02 TID, DX: ity o f (BLOOD 00:00: E11.40 [place] [facility] 00 Medical TEST) strip Branch blood sugar 2015-11 Yes [id number] Testing [facility] diagnostic 2-02 TID, DX: ity o f (BLOOD 00:00: E11.40 [place] [facility] 00 Medical TEST) strip Branch blood sugar 2015-11 Yes [id number] Testing [facility] diagnostic 2-02 TID, DX: ity o f (BLOOD 00:00: E11.40 [place] [facility] 00 Medical TEST) strip Branch blood sugar 2015-11 Yes [id number] Testing [facility] diagnostic 2-02 TID, DX: ity o f (BLOOD 00:00: E11.40 [place] [facility] 00 Medical TEST) strip Branch blood sugar 2015-11 Yes [id number] Testing [facility] diagnostic 2-02 TID, DX: ity o f (BLOOD 00:00: E11.40 [place] [facility] 00 Medical TEST) strip Branch blood sugar 2015-11 Yes [id number] Testing [facility] diagnostic 2-02 TID, DX: ity o f (BLOOD 00:00: E11.40 [place] [facility] 00 Medical TEST) strip Branch blood sugar 2015-11 Yes [id number] Testing [facility] diagnostic 2-02 TID, DX: ity o f (BLOOD 00:00: E11.40 [place] [facility] 00 Medical TEST) strip Branch blood sugar 2015-11 Yes [id number] Testing [facility] diagnostic 2-02 TID, DX: ity o f (BLOOD 00:00: E11.40 [place] [facility] 00 Medical TEST) strip Branch blood sugar 2015-11 Yes [id number] Testing [facility] diagnostic 2-02 TID, DX: ity o f (BLOOD 00:00: E11.40 [place] [facility] 00 Medical TEST) strip Branch blood sugar 2015-11 Yes [id number] Testing [facility] diagnostic 2-02 TID, DX: ity o f (BLOOD 00:00: E11.40 [place] [facility] 00 Medical TEST) strip Branch blood sugar 2015-11 Yes [id number] Testing [facility] diagnostic 2-02 TID, DX: ity o f (BLOOD 00:00: E11.40 [place] [facility] 00 Medical TEST) strip Branch blood sugar 2015-11 Yes [id number] Testing [facility] diagnostic 2-02 TID, DX: ity o f (BLOOD 00:00: E11.40 [place] [facility] 00 Medical TEST) strip Branch blood sugar 2015-11 Yes [id number] Testing [facility] diagnostic 2-02 TID, DX: ity o f (BLOOD 00:00: E11.40 [place] [facility] 00 Medical TEST) strip Branch blood sugar 2015-11 Yes [id number] Testing [facility] diagnostic 2-02 TID, DX: ity o f (BLOOD 00:00: E11.40 [place] [facility] 00 Medical TEST) strip Branch blood sugar 2015-11 Yes [id number] Testing [facility] diagnostic 2-02 TID, DX: ity o f (BLOOD 00:00: E11.40 [place] [facility] 00 Medical TEST) strip Branch blood sugar 2015-11 Yes [id number] Testing [facility] diagnostic 2-02 TID, DX: ity o f (BLOOD 00:00: E11.40 [place] [facility] 00 Medical TEST) strip Branch blood sugar 2015-11 Yes [id number] Testing [facility] diagnostic 2-02 TID, DX: ity o f (BLOOD 00:00: E11.40 [place] [facility] 00 Medical TEST) strip Branch blood sugar 2015-11 Yes [id number] Testing [facility] diagnostic 2-02 TID, DX: ity o f (BLOOD 00:00: E11.40 [place] [facility] 00 Medical TEST) strip Branch Blood-Gluco 2015-11 Yes Testing [facility] vers se Meter 0-12 TID DX: ity of (BLOOD 00:00: E11.9 [place] [facility] 00 Medical MONITORING) Branch Kit Blood-Gluco 2015-11 Yes Testing [facility] vers se Meter 0-12 TID DX: ity of (BLOOD 00:00: E11.9 [place] [facility] 00 Medical MONITORING) Branch Kit Blood-Gluco 2015-11 Yes Testing [facility] vers se Meter 0-12 TID DX: ity of (BLOOD 00:00: E11.9 [place] [facility] 00 Medical MONITORING) Branch Kit Blood-Gluco 2015-11 Yes Testing [facility] vers se Meter 0-12 TID DX: ity of (BLOOD 00:00: E11.9 [place] [facility] 00 Medical MONITORING) Branch Kit Blood-Gluco 2015-11 Yes Testing [facility] vers se Meter 0-12 TID DX: ity of (BLOOD 00:00: E11.9 [place] [facility] 00 Medical MONITORING) Branch Kit Blood-Gluco 2015-11 Yes Testing [facility] vers se Meter 0-12 TID DX: ity of (BLOOD 00:00: E11.9 [place] [facility] 00 Medical MONITORING) Branch Kit Blood-Gluco 2015-11 Yes Testing [facility] vers se Meter 0-12 TID DX: ity of (BLOOD 00:00: E11.9 [place] [facility] 00 Medical MONITORING) Branch Kit Blood-Gluco 2015-11 Yes Testing [facility] vers se Meter 0-12 TID DX: ity of (BLOOD 00:00: E11.9 [place] [facility] 00 Medical MONITORING) Branch Kit Blood-Gluco 2015-11 Yes Testing [facility] vers se Meter 0-12 TID DX: ity of (BLOOD 00:00: E11.9 [place] [facility] 00 Medical MONITORING) Branch Kit Blood-Gluco 2015-11 Yes Testing [facility] vers se Meter 0-12 TID DX: ity of (BLOOD 00:00: E11.9 [place] [facility] 00 Medical MONITORING) Branch Kit Blood-Gluco 2015-11 Yes Testing [facility] vers se Meter 0-12 TID DX: ity of (BLOOD 00:00: E11.9 [place] [facility] 00 Medical MONITORING) Branch Kit Blood-Gluco 2015-11 Yes Testing [facility] vers se Meter 0-12 TID DX: ity of (BLOOD 00:00: E11.9 [place] [facility] 00 Medical MONITORING) Branch Kit Blood-Gluco 2015-11 Yes Testing [facility] vers se Meter 0-12 TID DX: ity of (BLOOD 00:00: E11.9 [place] [facility] 00 Medical MONITORING) Branch Kit Blood-Gluco 2015-11 Yes Testing [facility] vers se Meter 0-12 TID DX: ity of (BLOOD 00:00: E11.9 [place] [facility] 00 Medical MONITORING) Branch Kit Blood-Gluco 2015-11 Yes Testing [facility] vers se Meter 0-12 TID DX: ity of (BLOOD 00:00: E11.9 [place] [facility] 00 Medical MONITORING) Branch Kit Blood-Gluco 2015-11 Yes Testing [facility] vers se Meter 0-12 TID DX: ity of (BLOOD 00:00: E11.9 [place] [facility] 00 Medical MONITORING) Branch Kit Blood-Gluco 2015-11 Yes Testing [facility] vers se Meter 0-12 TID DX: ity of (BLOOD 00:00: E11.9 [place] [facility] 00 Medical MONITORING) Branch Kit Blood-Gluco 2015-11 Yes Testing [facility] vers se Meter 0-12 TID DX: ity of (BLOOD 00:00: E11.9 [place] [facility] 00 Medical MONITORING) Branch Kit Blood-Gluco 2015-11 Yes Testing [facility] vers se Meter 0-12 TID DX: ity of (BLOOD 00:00: E11.9 [place] [facility] 00 Medical MONITORING) Branch Kit Blood-Gluco 2015-11 Yes Testing [facility] vers se Meter 0-12 TID DX: ity of (BLOOD 00:00: E11.9 [place] [facility] 00 Medical MONITORING) Branch Kit Blood-Gluco 2015-11 Yes Testing [facility] vers se Meter 0-12 TID DX: ity of (BLOOD 00:00: E11.9 [place] [facility] 00 Medical MONITORING) Branch Kit Blood-Gluco 2015-11 Yes Testing [facility] vers se Meter 0-12 TID DX: ity of (BLOOD 00:00: E11.9 [place] [facility] 00 Medical MONITORING) Branch Kit Blood-Gluco 2015-11 Yes Testing [facility] vers se Meter 0-12 TID DX: ity of (BLOOD 00:00: E11.9 [place] [facility] 00 Medical MONITORING) Branch Kit Blood-Gluco 2015-11 Yes Testing [facility] vers se Meter 0-12 TID DX: ity of (BLOOD 00:00: E11.9 [place] [facility] 00 Medical MONITORING) Branch Kit Blood-Gluco 2015-11 Yes Testing [facility] vers se Meter 0-12 TID DX: ity of (BLOOD 00:00: E11.9 [place] [facility] 00 Medical MONITORING) Branch Kit Blood-Gluco 2015-11 Yes Testing [facility] vers se Meter 0-12 TID DX: ity of (BLOOD 00:00: E11.9 [place] [facility] 00 Medical MONITORING) Branch Kit Blood-Gluco 2015-11 Yes Testing [facility] vers se Meter 0-12 TID DX: ity of (BLOOD 00:00: E11.9 [place] [facility] 00 Medical MONITORING) Branch Kit Blood-Gluco 2015-11 Yes Testing [facility] vers se Meter 0-12 TID DX: ity of (BLOOD 00:00: E11.9 [place] [facility] 00 Medical MONITORING) Branch Kit Blood-Gluco 2015-11 Yes Testing [facility] vers se Meter 0-12 TID DX: ity of (BLOOD 00:00: E11.9 [place] [facility] 00 Medical MONITORING) Branch Kit Blood-Gluco 2015-11 Yes Testing [facility] vers se Meter 0-12 TID DX: ity of (BLOOD 00:00: E11.9 [place] [facility] 00 Medical MONITORING) Branch Kit Blood-Gluco 2015-11 Yes Testing [facility] vers se Meter 0-12 TID DX: ity of (BLOOD 00:00: E11.9 [place] [facility] 00 Medical MONITORING) Branch Kit Blood-Gluco 2015-11 Yes Testing [facility] vers se Meter 0-12 TID DX: ity of (BLOOD 00:00: E11.9 [place] [facility] 00 Medical MONITORING) Branch Kit Blood-Gluco 2015-11 Yes Testing [facility] vers se Meter 0-12 TID DX: ity of (BLOOD 00:00: E11.9 [place] [facility] 00 Medical MONITORING) Branch Kit Blood-Gluco 2015-11 Yes Testing [facility] vers se Meter 0-12 TID DX: ity of (BLOOD 00:00: E11.9 [place] [facility] 00 Medical MONITORING) Branch Kit Blood-Gluco 2015-11 Yes Testing [facility] vers se Meter 0-12 TID DX: ity of (BLOOD 00:00: E11.9 [place] [facility] 00 Medical MONITORING) Branch Kit Blood-Gluco 2015-11 Yes Testing [facility] vers se Meter 0-12 TID DX: ity of (BLOOD 00:00: E11.9 [place] [facility] 00 Medical MONITORING) Branch Kit Blood-Gluco 2015-11 Yes Testing [facility] vers se Meter 0-12 TID DX: ity of (BLOOD 00:00: E11.9 [place] [facility] 00 Medical MONITORING) Branch Kit Blood-Gluco 2015-11 Yes Testing [facility] vers se Meter 0-12 TID DX: ity of (BLOOD 00:00: E11.9 [place] [facility] 00 Medical MONITORING) Branch Kit Blood-Gluco 2015-11 Yes Testing [facility] vers se Meter 0-12 TID DX: ity of (BLOOD 00:00: E11.9 [place] [facility] 00 Medical MONITORING) Branch Kit Blood-Gluco 2015-11 Yes Testing [facility] vers se Meter 0-12 TID DX: ity of (BLOOD 00:00: E11.9 [place] [facility] 00 Medical MONITORING) Branch Kit Blood-Gluco 2015-11 Yes Testing [facility] vers se Meter 0-12 TID DX: ity of (BLOOD 00:00: E11.9 [place] [facility] 00 Medical MONITORING) Branch Kit Blood-Gluco 2015-11 Yes Testing [facility] vers se Meter 0-12 TID DX: ity of (BLOOD 00:00: E11.9 [place] [facility] 00 Medical MONITORING) Branch Kit Blood-Gluco 2015-11 Yes Testing [facility] vers se Meter 0-12 TID DX: ity of (BLOOD 00:00: E11.9 [place] [facility] 00 Medical MONITORING) Branch Kit Blood-Gluco 2015-11 Yes Testing [facility] vers se Meter 0-12 TID DX: ity of (BLOOD 00:00: E11.9 [place] [facility] 00 Medical MONITORING) Branch Kit Blood-Gluco 2015-11 Yes Testing [facility] vers se Meter 0-12 TID DX: ity of (BLOOD 00:00: E11.9 [place] [facility] 00 Medical MONITORING) Branch Kit Blood-Gluco 2015-11 Yes Testing [facility] vers se Meter 0-12 TID DX: ity of (BLOOD 00:00: E11.9 [place] [facility] 00 Medical MONITORING) Branch Kit Blood-Gluco 2015-11 Yes Testing [facility] vers se Meter 0-12 TID DX: ity of (BLOOD 00:00: E11.9 [place] [facility] 00 Medical MONITORING) Branch Kit Blood-Gluco 2015-11 Yes Testing [facility] vers se Meter 0-12 TID DX: ity of (BLOOD 00:00: E11.9 [place] [facility] 00 Medical MONITORING) Branch Kit Blood-Gluco 2015-11 Yes Testing [facility] vers se Meter 0-12 TID DX: ity of (BLOOD 00:00: E11.9 [place] [facility] 00 Medical MONITORING) Branch Kit Blood-Gluco 2015-11 Yes Testing [facility] vers se Meter 0-12 TID DX: ity of (BLOOD 00:00: E11.9 [place] [facility] 00 Medical MONITORING) Branch Kit Blood-Gluco 2015-11 Yes Testing [facility] vers se Meter 0-12 TID DX: ity of (BLOOD 00:00: E11.9 [place] [facility] 00 Medical MONITORING) Branch Kit Blood-Gluco 2015-11 Yes Testing [facility] vers se Meter 0-12 TID DX: ity of (BLOOD 00:00: E11.9 [place] [facility] 00 Medical MONITORING) Branch Kit Blood-Gluco 2015-11 Yes Testing [facility] vers se Meter 0-12 TID DX: ity of (BLOOD 00:00: E11.9 [place] [facility] 00 Medical MONITORING) Branch Kit Blood-Gluco 2015-11 Yes Testing [facility] vers se Meter 0-12 TID DX: ity of (BLOOD 00:00: E11.9 [place] [facility] 00 Medical MONITORING) Branch Kit Blood-Gluco 2015-11 Yes Testing [facility] vers se Meter 0-12 TID DX: ity of (BLOOD 00:00: E11.9 [place] [facility] 00 Medical MONITORING) Branch Kit Blood-Gluco 2015-11 Yes Testing [facility] vers se Meter 0-12 TID DX: ity of (BLOOD 00:00: E11.9 [place] [facility] 00 Medical MONITORING) Branch Kit Blood-Gluco 2015-11 Yes Testing [facility] vers se Meter 0-12 TID DX: ity of (BLOOD 00:00: E11.9 [place] [facility] 00 Medical MONITORING) Branch Kit Blood-Gluco 2015-11 Yes Testing [facility] vers se Meter 0-12 TID DX: ity of (BLOOD 00:00: E11.9 [place] [facility] 00 Medical MONITORING) Branch Kit Blood-Gluco 2015-11 Yes Testing [facility] vers se Meter 0-12 TID DX: ity of (BLOOD 00:00: E11.9 [place] [facility] 00 Medical MONITORING) Branch Kit Blood-Gluco 2015-11 Yes Testing [facility] vers se Meter 0-12 TID DX: ity of (BLOOD 00:00: E11.9 [place] [facility] 00 Medical MONITORING) Branch Kit Blood-Gluco 2015-11 Yes Testing [facility] vers se Meter 0-12 TID DX: ity of (BLOOD 00:00: E11.9 [place] [facility] 00 Medical MONITORING) Branch Kit Blood-Gluco 2015-11 Yes Testing [facility] vers se Meter 0-12 TID DX: ity of (BLOOD 00:00: E11.9 [place] [facility] 00 Medical MONITORING) Branch Kit Blood-Gluco 2015-11 Yes Testing [facility] vers se Meter 0-12 TID DX: ity of (BLOOD 00:00: E11.9 [place] [facility] 00 Medical MONITORING) Branch Kit Blood-Gluco 2015-11 Yes Testing [facility] vers se Meter 0-12 TID DX: ity of (BLOOD 00:00: E11.9 [place] [facility] 00 Medical MONITORING) Branch Kit Blood-Gluco 2015-11 Yes Testing [facility] vers se Meter 0-12 TID DX: ity of (BLOOD 00:00: E11.9 [place] [facility] 00 Medical MONITORING) Branch Kit Blood-Gluco 2015-11 Yes Testing [facility] vers se Meter 0-12 TID DX: ity of (BLOOD 00:00: E11.9 [place] [facility] 00 Medical MONITORING) Branch Kit Blood-Gluco 2015-11 Yes Testing [facility] vers se Meter 0-12 TID DX: ity of (BLOOD 00:00: E11.9 [place] [facility] 00 Medical MONITORING) Branch Kit Blood-Gluco 2015-11 Yes Testing [facility] vers se Meter 0-12 TID DX: ity of (BLOOD 00:00: E11.9 [place] [facility] 00 Medical MONITORING) Branch Kit Blood-Gluco 2015-11 Yes Testing [facility] vers se Meter 0-12 TID DX: ity of (BLOOD 00:00: E11.9 [place] [facility] 00 Medical MONITORING) Branch Kit Blood-Gluco 2015-11 Yes Testing [facility] vers se Meter 0-12 TID DX: ity of (BLOOD 00:00: E11.9 [place] [facility] 00 Medical MONITORING) Branch Kit Blood-Gluco 2015-11 Yes Testing [facility] vers se Meter 0-12 TID DX: ity of (BLOOD 00:00: E11.9 [place] [facility] 00 Medical MONITORING) Branch Kit Blood-Gluco 2015-11 Yes Testing [facility] vers se Meter 0-12 TID DX: ity of (BLOOD 00:00: E11.9 [place] [facility] 00 Medical MONITORING) Branch Kit Blood-Gluco 2015-11 Yes Testing [facility] vers se Meter 0-12 TID DX: ity of (BLOOD 00:00: E11.9 [place] [facility] 00 Medical MONITORING) Branch Kit Blood-Gluco 2015-11 Yes Testing [facility] vers se Meter 0-12 TID DX: ity of (BLOOD 00:00: E11.9 [place] [facility] 00 Medical MONITORING) Branch Kit Blood-Gluco 2015-11 Yes Testing [facility] vers se Meter 0-12 TID DX: ity of (BLOOD 00:00: E11.9 [place] [facility] 00 Medical MONITORING) Branch Kit Blood-Gluco 2015-11 Yes Testing [facility] vers se Meter 0-12 TID DX: ity of (BLOOD 00:00: E11.9 [place] [facility] 00 Medical MONITORING) Branch Kit Blood-Gluco 2015-11 Yes Testing [facility] vers se Meter 0-12 TID DX: ity of (BLOOD 00:00: E11.9 [place] [facility] 00 Medical MONITORING) Branch Kit Blood-Gluco 2015-11 Yes Testing [facility] vers se Meter 0-12 TID DX: ity of (BLOOD 00:00: E11.9 [place] [facility] 00 Medical MONITORING) Branch Kit Blood-Gluco 2015-11 Yes Testing [facility] vers se Meter 0-12 TID DX: ity of (BLOOD 00:00: E11.9 [place] [facility] 00 Medical MONITORING) Branch Kit Blood-Gluco 2015-11 Yes Testing [facility] vers se Meter 0-12 TID DX: ity of (BLOOD 00:00: E11.9 [place] [facility] 00 Medical MONITORING) Branch Kit Blood-Gluco 2015-11 Yes Testing [facility] vers se Meter 0-12 TID DX: ity of (BLOOD 00:00: E11.9 [place] [facility] 00 Medical MONITORING) Branch Kit Blood-Gluco 2015-11 Yes Testing [facility] vers se Meter 0-12 TID DX: ity of (BLOOD 00:00: E11.9 [place] [facility] 00 Medical MONITORING) Branch Kit Blood-Gluco 2015-11 Yes Testing [facility] vers se Meter 0-12 TID DX: ity of (BLOOD 00:00: E11.9 [place] [facility] 00 Medical MONITORING) Branch Kit Blood-Gluco 2015-11 Yes Testing [facility] vers se Meter 0-12 TID DX: ity of (BLOOD 00:00: E11.9 [place] [facility] 00 Medical MONITORING) Branch Kit Blood-Gluco 2015-11 Yes Testing [facility] vers se Meter 0-12 TID DX: ity of (BLOOD 00:00: E11.9 [place] [facility] 00 Medical MONITORING) Branch Kit Blood-Gluco 2015-11 Yes Testing [facility] vers se Meter 0-12 TID DX: ity of (BLOOD 00:00: E11.9 [place] [facility] 00 Medical MONITORING) Branch Kit Blood-Gluco 2015-11 Yes Testing [facility] vers se Meter 0-12 TID DX: ity of (BLOOD 00:00: E11.9 [place] [facility] 00 Medical MONITORING) Branch Kit Blood-Gluco 2015-11 Yes Testing [facility] vers se Meter 0-12 TID DX: ity of (BLOOD 00:00: E11.9 [place] [facility] 00 Medical MONITORING) Branch Kit Blood-Gluco 2015-11 Yes Testing [facility] vers se Meter 0-12 TID DX: ity of (BLOOD 00:00: E11.9 [place] [facility] 00 Medical MONITORING) Branch Kit Blood-Gluco 2015-11 Yes Testing [facility] vers se Meter 0-12 TID DX: ity of (BLOOD 00:00: E11.9 [place] [facility] 00 Medical MONITORING) Branch Kit Blood-Gluco 2015-11 Yes Testing [facility] vers se Meter 0-12 TID DX: ity of (BLOOD 00:00: E11.9 [place] [facility] 00 Medical MONITORING) Branch Kit Blood-Gluco 2015-11 Yes Testing [facility] vers se Meter 0-12 TID DX: ity of (BLOOD 00:00: E11.9 [place] [facility] 00 Medical MONITORING) Branch Kit Blood-Gluco 2015-11 Yes Testing [facility] vers se Meter 0-12 TID DX: ity of (BLOOD 00:00: E11.9 [place] [facility] 00 Medical MONITORING) Branch Kit Blood-Gluco 2015-11 Yes Testing [facility] vers se Meter 0-12 TID DX: ity of (BLOOD 00:00: E11.9 [place] [facility] 00 Medical MONITORING) Branch Kit Blood-Gluco 2015-11 Yes Testing [facility] vers se Meter 0-12 TID DX: ity of (BLOOD 00:00: E11.9 [place] [facility] 00 Medical MONITORING) Branch Kit Blood-Gluco 2015-11 Yes Testing [facility] vers se Meter 0-12 TID DX: ity of (BLOOD 00:00: E11.9 [place] [facility] 00 Medical MONITORING) Branch Kit Blood-Gluco 2015-11 Yes Testing [facility] vers se Meter 0-12 TID DX: ity of (BLOOD 00:00: E11.9 [place] [facility] 00 Medical MONITORING) Branch Kit Blood-Gluco 2015-11 Yes Testing [facility] vers se Meter 0-12 TID DX: ity of (BLOOD 00:00: E11.9 [place] [facility] 00 Medical MONITORING) Branch Kit Blood-Gluco 2015-11 Yes Testing [facility] vers se Meter 0-12 TID DX: ity of (BLOOD 00:00: E11.9 [place] [facility] 00 Medical MONITORING) Branch Kit Blood-Gluco 2015-11 Yes Testing [facility] vers se Meter 0-12 TID DX: ity of (BLOOD 00:00: E11.9 [place] [facility] 00 Medical MONITORING) Branch Kit Blood-Gluco 2015-11 Yes Testing [facility] vers se Meter 0-12 TID DX: ity of (BLOOD 00:00: E11.9 [place] [facility] 00 Medical MONITORING) Branch Kit Blood-Gluco 2015-11 Yes Testing [facility] vers se Meter 0-12 TID DX: ity of (BLOOD 00:00: E11.9 [place] [facility] 00 Medical MONITORING) Branch Kit Blood-Gluco 2015-11 Yes Testing [facility] vers se Meter 0-12 TID DX: ity of (BLOOD 00:00: E11.9 [place] [facility] 00 Medical MONITORING) Branch Kit Blood-Gluco 2015-11 Yes Testing [facility] vers se Meter 0-12 TID DX: ity of (BLOOD 00:00: E11.9 [place] [facility] 00 Medical MONITORING) Branch Kit Blood-Gluco 2015-11 Yes Testing [facility] vers se Meter 0-12 TID DX: ity of (BLOOD 00:00: E11.9 [place] [facility] 00 Medical MONITORING) Branch Kit Blood-Gluco 2015-11 Yes Testing [facility] vers se Meter 0-12 TID DX: ity of (BLOOD 00:00: E11.9 [place] [facility] 00 Medical MONITORING) Branch Kit Blood-Gluco 2015-11 Yes Testing [facility] vers se Meter 0-12 TID DX: ity of (BLOOD 00:00: E11.9 [place] [facility] 00 Medical MONITORING) Branch Kit Blood-Gluco 2015-11 Yes Testing [facility] vers se Meter 0-12 TID DX: ity of (BLOOD 00:00: E11.9 [place] [facility] 00 Medical MONITORING) Branch Kit Blood-Gluco 2015-11 Yes Testing [facility] vers se Meter 0-12 TID DX: ity of (BLOOD 00:00: E11.9 [place] [facility] 00 Medical MONITORING) Branch Kit Blood-Gluco 2015-11 Yes Testing [facility] vers se Meter 0-12 TID DX: ity of (BLOOD 00:00: E11.9 [place] [facility] 00 Medical MONITORING) Branch Kit Blood-Gluco 2015-11 Yes Testing [facility] vers se Meter 0-12 TID DX: ity of (BLOOD 00:00: E11.9 [place] [facility] 00 Medical MONITORING) Branch Kit Blood-Gluco 2015-11 Yes Testing [facility] vers se Meter 0-12 TID DX: ity of (BLOOD 00:00: E11.9 [place] [facility] 00 Medical MONITORING) Branch Kit Blood-Gluco 2015-11 Yes Testing [facility] vers se Meter 0-12 TID DX: ity of (BLOOD 00:00: E11.9 [place] [facility] 00 Medical MONITORING) Branch Kit Blood-Gluco 2015-11 Yes Testing [facility] vers se Meter 0-12 TID DX: ity of (BLOOD 00:00: E11.9 [place] [facility] 00 Medical MONITORING) Branch Kit Blood-Gluco 2015-11 Yes Testing [facility] vers se Meter 0-12 TID DX: ity of (BLOOD 00:00: E11.9 [place] [facility] 00 Medical MONITORING) Branch Kit Blood-Gluco 2015-11 Yes Testing [facility] vers se Meter 0-12 TID DX: ity of (BLOOD 00:00: E11.9 [place] [facility] 00 Medical MONITORING) Branch Kit Blood-Gluco 2015-11 Yes Testing [facility] vers se Meter 0-12 TID DX: ity of (BLOOD 00:00: E11.9 [place] [facility] 00 Medical MONITORING) Branch Kit Blood-Gluco 2015-11 Yes Testing [facility] vers se Meter 0-12 TID DX: ity of (BLOOD 00:00: E11.9 [place] [facility] 00 Medical MONITORING) Branch Kit Blood-Gluco 2015-11 Yes Testing [facility] vers se Meter 0-12 TID DX: ity of (BLOOD 00:00: E11.9 [place] [facility] 00 Medical MONITORING) Branch Kit Blood-Gluco 2015-11 Yes Testing [facility] vers se Meter 0-12 TID DX: ity of (BLOOD 00:00: E11.9 [place] [facility] 00 Medical MONITORING) Branch Kit Blood-Gluco 2015-11 Yes Testing [facility] vers se Meter 0-12 TID DX: ity of (BLOOD 00:00: E11.9 [place] [facility] 00 Medical MONITORING) Branch Kit Blood-Gluco 2015-11 Yes Testing [facility] vers se Meter 0-12 TID DX: ity of (BLOOD 00:00: E11.9 [place] [facility] 00 Medical MONITORING) Branch Kit Blood-Gluco 2015-11 Yes Testing [facility] vers se Meter 0-12 TID DX: ity of (BLOOD 00:00: E11.9 [place] [facility]UCO[facility] 00 Medical MONITORING) Branch Kit Blood-Gluco 2015-11 Yes Testing [facility] vers se Meter 0-12 TID DX: ity of (BLOOD 00:00: E11.9 [place] [facility]UCO[facility] 00 Medical MONITORING) Branch Kit Blood-Gluco 2015-11 Yes Testing [facility] vers se Meter 0-12 TID DX: ity of (BLOOD 00:00: E11.9 [place] [facility] 00 Medical MONITORING) Branch Kit Blood-Gluco 2015-11 Yes Testing Uni vers se Meter 0-12 TID DX: ity of (BLOOD 00:00: E11.9 [place] GLUCOSE 00 Medical MONITORING) Branch Kit Blood-Gluco 2015-11 Yes Testing Uni vers se Meter 0-12 TID DX: ity of (BLOOD 00:00: E11.9 [place] GLUCOSE 00 Medical MONITORING) Branch Kit Blood-Gluco 2015-11 Yes Testing [facility] vers se Meter 0-12 TID DX: ity of (BLOOD 00:00: E11.9 [place] GLUCOSE 00 Medical MONITORING) Branch Kit Blood-Gluco 2015-11 Yes Testing [facility] vers se Meter 0-12 TID DX: ity of (BLOOD 00:00: E11.9 [place] GLUCOSE 00 Medical MONITORING) Branch Kit Blood-Gluco 2015-11 Yes Testing [facility] vers se Meter 0-12 TID DX: ity of (BLOOD 00:00: E11.9 [place] GLUCOSE 00 Medical MONITORING) Branch Kit Blood-Gluco 2015-11 Yes Testing [facility] vers se Meter 0-12 TID DX: ity of (BLOOD 00:00: E11.9 [place] GLUCOSE 00 Medical MONITORING) Branch Kit Blood-Gluco 2015-11 Yes Testing [facility] vers se Meter 0-12 TID DX: ity of (BLOOD 00:00: E11.9 [place] GLUCOSE 00 Medical MONITORING) Branch Kit Blood-Gluco 2015-11 Yes Testing [facility] vers se Meter 0-12 TID DX: ity of (BLOOD 00:00: E11.9 [place] GLUCOSE 00 Medical MONITORING) Branch Kit Blood-Gluco 2015-11 Yes Testing [facility] vers se Meter 0-12 TID DX: ity of (BLOOD 00:00: E11.9 [place] GLUCOSE 00 Medical MONITORING) Branch Kit Blood-Gluco 2015-11 Yes Testing [facility] vers se Meter 0-12 TID DX: ity of (BLOOD 00:00: E11.9 [place] GLUCOSE 00 Medical MONITORING) Branch Kit Blood-Gluco 2015-11 Yes Testing [facility] vers se Meter 0-12 TID DX: ity of (BLOOD 00:00: E11.9 [place] GLUCOSE 00 Medical MONITORING) Branch Kit Blood-Gluco 2015-11 Yes Testing [facility] vers se Meter 0-12 TID DX: ity of (BLOOD 00:00: E11.9 [place] GLUCOSE 00 Medical MONITORING) Branch Kit Blood-Gluco 2015-11 Yes Testing [facility] vers se Meter 0-12 TID DX: ity of (BLOOD 00:00: E11.9 [place] GLUCOSE 00 Medical MONITORING) Branch Kit Blood-Gluco 2015-11 Yes Testing [facility] vers se Meter 0-12 TID DX: ity of (BLOOD 00:00: E11.9 [place] GLUCOSE 00 Medical MONITORING) Branch Kit Blood-Gluco 2015-11 Yes Testing [facility] vers se Meter 0-12 TID DX: ity of (BLOOD 00:00: E11.9 [place] GLUCOSE 00 Medical MONITORING) Branch Kit Blood-Gluco 2015-11 Yes Testing [facility] vers se Meter 0-12 TID DX: ity of (BLOOD 00:00: E11.9 [place] GLUCOSE 00 Medical MONITORING) Branch Kit Blood-Gluco 2015-11 Yes Testing [facility] vers se Meter 0-12 TID DX: ity of (BLOOD 00:00: E11.9 [place] GLUCOSE 00 Medical MONITORING) Branch Kit Blood-Gluco 2015-11 Yes Testing [facility] vers se Meter 0-12 TID DX: ity of (BLOOD 00:00: E11.9 [place] GLUCOSE 00 Medical MONITORING) Branch Kit Insulin Yes Use as [facility], 1-13 directed ity of Disposable, 00:00: to [place] (RELION PEN 00 administer Me dical NEEDLES) 32 insulin Branc h gauge x three 5/32" Ndle times a day. For ICD 10 code of: E11.40 Insulin 0 Yes Use as [facility], 1-13 directed ity of Disposable, 00:00: to [place] (RELION PEN 00 administer Me dical NEEDLES) 32 insulin Branc h gauge x three 5/32" Ndle times a day. For ICD 10 code of: E11.40 Insulin 0 Yes Use as [facility], 1-13 directed ity of Disposable, 00:00: to [place] (RELION PEN 00 administer Me dical NEEDLES) 32 insulin Branc h gauge x three 5/32" Ndle times a day. For ICD 10 code of: E11.40 Insulin 2015-0 Yes Use as [facility], 1-13 directed ity of Disposable, 00:00: to [place] (RELION PEN 00 administer Me dical NEEDLES) 32 insulin Branc h gauge x three 5/32" Ndle times a day. For ICD 10 code of: E11.40 Insulin 2016-0 Yes Use as [facility], 1-13 directed ity of Disposable, 00:00: to [place] (RELION PEN 00 administer Me dical NEEDLES) 32 insulin Branc h gauge x three 5/32" Ndle times a day. For ICD 10 code of: E11.40 Insulin 2016-0 Yes Use as [facility], 1-13 directed ity of Disposable, 00:00: to [place] (RELION PEN 00 administer Me dical NEEDLES) 32 insulin Branc h gauge x three 5/32" Ndle times a day. For ICD 10 code of: E11.40 Insulin 2016-0 Yes Use as [facility], 1-13 directed ity of Disposable, 00:00: to [place] (RELION PEN 00 administer Me dical NEEDLES) 32 insulin Branc h gauge x three 5/32" Ndle times a day. For ICD 10 code of: E11.40 Insulin 2016-0 Yes Use as [facility], 1-13 directed ity of Disposable, 00:00: to [place] (RELION PEN 00 administer Me dical NEEDLES) 32 insulin Branc h gauge x three 5/32" Ndle times a day. For ICD 10 code of: E11.40 Insulin 2016-0 Yes Use as [facility], 1-13 directed ity of Disposable, 00:00: to [place] (RELION PEN 00 administer Me dical NEEDLES) 32 insulin Branc h gauge x three 5/32" Ndle times a day. For ICD 10 code of: E11.40 Insulin 2016-0 Yes Use as [facility], 1-13 directed ity of Disposable, 00:00: to [place] (RELION PEN 00 administer Me dical NEEDLES) 32 insulin Branc h gauge x three 5/32" Ndle times a day. For ICD 10 code of: E11.40 Insulin 2016-0 Yes Use as [facility], 1-13 directed ity of Disposable, 00:00: to [place] (RELION PEN 00 administer Me dical NEEDLES) 32 insulin Branc h gauge x three 5/32" Ndle times a day. For ICD 10 code of: E11.40 Insulin 2016-0 Yes Use as [facility], 1-13 directed ity of Disposable, 00:00: to [place] (RELION PEN 00 administer Me dical NEEDLES) 32 insulin Branc h gauge x three 5/32" Ndle times a day. For ICD 10 code of: E11.40 Insulin 2016-0 Yes Use as [facility], 1-13 directed ity of Disposable, 00:00: to [place] (RELION PEN 00 administer Me dical NEEDLES) 32 insulin Branc h gauge x three 5/32" Ndle times a day. For ICD 10 code of: E11.40 Insulin 2016-0 Yes Use as [facility], 1-13 directed ity of Disposable, 00:00: to [place] (RELION PEN 00 administer Me dical NEEDLES) 32 insulin Branc h gauge x three 5/32" Ndle times a day. For ICD 10 code of: E11.40 Insulin 2016-0 Yes Use as [facility], 1-13 directed ity of Disposable, 00:00: to [place] (RELION PEN 00 administer Me dical NEEDLES) 32 insulin Branc h gauge x three 5/32" Ndle times a day. For ICD 10 code of: E11.40 Insulin 2016-0 Yes Use as [facility], 1-13 directed ity of Disposable, 00:00: to [place] (RELION PEN 00 administer Me dical NEEDLES) 32 insulin Branc h gauge x three 5/32" Ndle times a day. For ICD 10 code of: E11.40 Insulin 2016-0 Yes Use as [facility], 1-13 directed ity of Disposable, 00:00: to [place] (RELION PEN 00 administer Me dical NEEDLES) 32 insulin Branc h gauge x three 5/32" Ndle times a day. For ICD 10 code of: E11.40 Insulin 2016-0 Yes Use as [facility], 1-13 directed ity of Disposable, 00:00: to [place] (RELION PEN 00 administer Me dical NEEDLES) 32 insulin Branc h gauge x three 5/32" Ndle times a day. For ICD 10 code of: E11.40 Insulin 2016-0 Yes Use as [facility], 1-13 directed ity of Disposable, 00:00: to [place] (RELION PEN 00 administer Me dical NEEDLES) 32 insulin Branc h gauge x three 5/32" Ndle times a day. For ICD 10 code of: E11.40 Insulin 2016-0 Yes Use as [facility], 1-13 directed ity of Disposable, 00:00: to [place] (RELION PEN 00 administer Me dical NEEDLES) 32 insulin Branc h gauge x three 5/32" Ndle times a day. For ICD 10 code of: E11.40 Insulin 2016-0 Yes Use as [facility], 1-13 directed ity of Disposable, 00:00: to [place] (RELION PEN 00 administer Me dical NEEDLES) 32 insulin Branc h gauge x three 5/32" Ndle times a day. For ICD 10 code of: E11.40 Insulin 2016-0 Yes Use as [facility], 1-13 directed ity of Disposable, 00:00: to [place] (RELION PEN 00 administer Me dical NEEDLES) 32 insulin Branc h gauge x three 5/32" Ndle times a day. For ICD 10 code of: E11.40 Insulin 2016-0 Yes Use as [facility], 1-13 directed ity of Disposable, 00:00: to [place] (RELION PEN 00 administer Me dical NEEDLES) 32 insulin Branc h gauge x three 5/32" Ndle times a day. For ICD 10 code of: E11.40 Insulin 2016-0 Yes Use as [facility], 1-13 directed ity of Disposable, 00:00: to [place] (RELION PEN 00 administer Me dical NEEDLES) 32 insulin Branc h gauge x three 5/32" Ndle times a day. For ICD 10 code of: E11.40 Insulin 2016-0 Yes Use as [facility], 1-13 directed ity of Disposable, 00:00: to [place] (RELION PEN 00 administer Me dical NEEDLES) 32 insulin Branc h gauge x three 5/32" Ndle times a day. For ICD 10 code of: E11.40 Insulin 2016-0 Yes Use as [facility], 1-13 directed ity of Disposable, 00:00: to [place] (RELION PEN 00 administer Me dical NEEDLES) 32 insulin Branc h gauge x three 5/32" Ndle times a day. For ICD 10 code of: E11.40 Insulin 2016-0 Yes Use as [facility], 1-13 directed ity of Disposable, 00:00: to [place] (RELION PEN 00 administer Me dical NEEDLES) 32 insulin Branc h gauge x three 5/32" Ndle times a day. For ICD 10 code of: E11.40 Insulin 2016-0 Yes Use as [facility], 1-13 directed ity of Disposable, 00:00: to [place] (RELION PEN 00 administer Me dical NEEDLES) 32 insulin Branc h gauge x three 5/32" Ndle times a day. For ICD 10 code of: E11.40 Insulin 2016-0 Yes Use as [facility], 1-13 directed ity of Disposable, 00:00: to [place] (RELION PEN 00 administer Me dical NEEDLES) 32 insulin Branc h gauge x three 5/32" Ndle times a day. For ICD 10 code of: E11.40 Insulin 2016-0 Yes Use as [facility], 1-13 directed ity of Disposable, 00:00: to [place] (RELION PEN 00 administer Me dical NEEDLES) 32 insulin Branc h gauge x three 5/32" Ndle times a day. For ICD 10 code of: E11.40 Insulin 2016-0 Yes Use as [facility], 1-13 directed ity of Disposable, 00:00: to [place] (RELION PEN 00 administer Me dical NEEDLES) 32 insulin Branc h gauge x three 5/32" Ndle times a day. For ICD 10 code of: E11.40 Insulin 2016-0 Yes Use as [facility], 1-13 directed ity of Disposable, 00:00: to [place] (RELION PEN 00 administer Me dical NEEDLES) 32 insulin Branc h gauge x three 5/32" Ndle times a day. For ICD 10 code of: E11.40 Insulin 2016-0 Yes Use as [facility], 1-13 directed ity of Disposable, 00:00: to [place] (RELION PEN 00 administer Me dical NEEDLES) 32 insulin Branc h gauge x three 5/32" Ndle times a day. For ICD 10 code of: E11.40 Insulin 2016-0 Yes Use as [facility], 1-13 directed ity of Disposable, 00:00: to [place] (RELION PEN 00 administer Me dical NEEDLES) 32 insulin Branc h gauge x three 5/32" Ndle times a day. For ICD 10 code of: E11.40 Insulin 2016-0 Yes Use as [facility], 1-13 directed ity of Disposable, 00:00: to [place] (RELION PEN 00 administer Me dical NEEDLES) 32 insulin Branc h gauge x three 5/32" Ndle times a day. For ICD 10 code of: E11.40 Insulin 2016-0 Yes Use as [facility], 1-13 directed ity of Disposable, 00:00: to [place] (RELION PEN 00 administer Me dical NEEDLES) 32 insulin Branc h gauge x three 5/32" Ndle times a day. For ICD 10 code of: E11.40 Insulin 2016-0 Yes Use as [facility], 1-13 directed ity of Disposable, 00:00: to [place] (RELION PEN 00 administer Me dical NEEDLES) 32 insulin Branc h gauge x three 5/32" Ndle times a day. For ICD 10 code of: E11.40 Insulin 2016-0 Yes Use as [facility], 1- directed ity of Disposable, 00:00: to [place] (RELION PEN 00 administer Me dical NEEDLES) 32 insulin Branc h gauge x three 5/32" Ndle times a day. For ICD 10 code of: E11.40 Insulin 2016-0 Yes Use as [facility], 1- directed ity of Disposable, 00:00: to [place] (RELION PEN 00 administer Me dical NEEDLES) 32 insulin Branc h gauge x three 5/32" Ndle times a day. For ICD 10 code of: E11.40 Insulin 2016-0 Yes Use as [facility], 1- directed ity of Disposable, 00:00: to [place] (RELION PEN 00 administer Me dical NEEDLES) 32 insulin Branc h gauge x three 5/32" Ndle times a day. For ICD 10 code of: E11.40 Insulin 2016-0 Yes Use as [facility], 1- directed ity of Disposable, 00:00: to [place] (RELION PEN 00 administer Me dical NEEDLES) 32 insulin Branc h gauge x three 5/32" Ndle times a day. For ICD 10 code of: E11.40 Insulin 2016-0 Yes Use as [facility], 1- directed ity of Disposable, 00:00: to [place] (RELION PEN 00 administer Me dical NEEDLES) 32 insulin Branc h gauge x three 5/32" Ndle times a day. For ICD 10 code of: E11.40 Insulin 2016-0 Yes Use as [facility], 1-13 directed ity of Disposable, 00:00: to [place] (RELION PEN 00 administer Me dical NEEDLES) 32 insulin Branc h gauge x three 5/32" Ndle times a day. For ICD 10 code of: E11.40 Insulin 2016-0 Yes Use as [facility], 1-13 directed ity of Disposable, 00:00: to [place] (RELION PEN 00 administer Me dical NEEDLES) 32 insulin Branc h gauge x three 5/32" Ndle times a day. For ICD 10 code of: E11.40 Insulin 2016-0 Yes Use as [facility], 1-13 directed ity of Disposable, 00:00: to [place] (RELION PEN 00 administer Me dical NEEDLES) 32 insulin Branc h gauge x three 5/32" Ndle times a day. For ICD 10 code of: E11.40 Insulin 2016-0 Yes Use as [facility], 1- directed ity of Disposable, 00:00: to [place] (RELION PEN 00 administer Me dical NEEDLES) 32 insulin Branc h gauge x three 5/32" Ndle times a day. For ICD 10 code of: E11.40 Insulin 2016-0 Yes Use as [facility], 1- directed ity of Disposable, 00:00: to [place] (RELION PEN 00 administer Me dical NEEDLES) 32 insulin Branc h gauge x three 5/32" Ndle times a day. For ICD 10 code of: E11.40 Insulin 2016-0 Yes Use as [facility], 1- directed ity of Disposable, 00:00: to [place] (RELION PEN 00 administer Me dical NEEDLES) 32 insulin Branc h gauge x three 5/32" Ndle times a day. For ICD 10 code of: E11.40 Insulin 2016-0 Yes Use as [facility], 1- directed ity of Disposable, 00:00: to [place] (RELION PEN 00 administer Me dical NEEDLES) 32 insulin Branc h gauge x three 5/32" Ndle times a day. For ICD 10 code of: E11.40 Insulin 2016-0 Yes Use as [facility], 1-13 directed ity of Disposable, 00:00: to [place] (RELION PEN 00 administer Me dical NEEDLES) 32 insulin Branc h gauge x three 5/32" Ndle times a day. For ICD 10 code of: E11.40 Insulin 2016-0 Yes Use as [facility], 1-13 directed ity of Disposable, 00:00: to [place] (RELION PEN 00 administer Me dical NEEDLES) 32 insulin Branc h gauge x three 5/32" Ndle times a day. For ICD 10 code of: E11.40 Insulin 2016-0 Yes Use as [facility], 1-13 directed ity of Disposable, 00:00: to [place] (RELION PEN 00 administer Me dical NEEDLES) 32 insulin Branc h gauge x three 5/32" Ndle times a day. For ICD 10 code of: E11.40 Insulin 2016-0 Yes Use as [facility], 1-13 directed ity of Disposable, 00:00: to [place] (RELION PEN 00 administer Me dical NEEDLES) 32 insulin Branc h gauge x three 5/32" Ndle times a day. For ICD 10 code of: E11.40 Insulin 2016-0 Yes Use as [facility], 1-13 directed ity of Disposable, 00:00: to [place] (RELION PEN 00 administer Me dical NEEDLES) 32 insulin Branc h gauge x three 5/32" Ndle times a day. For ICD 10 code of: E11.40 Insulin 2016-0 Yes Use as [facility], 1-13 directed ity of Disposable, 00:00: to [place] (RELION PEN 00 administer Me dical NEEDLES) 32 insulin Branc h gauge x three 5/32" Ndle times a day. For ICD 10 code of: E11.40 Insulin 2016-0 Yes Use as [facility], 1- directed ity of Disposable, 00:00: to [place] (RELION PEN 00 administer Me dical NEEDLES) 32 insulin Branc h gauge x three 5/32" Ndle times a day. For ICD 10 code of: E11.40 Insulin 2016-0 Yes Use as [facility], 1-13 directed ity of Disposable, 00:00: to [place] (RELION PEN 00 administer Me dical NEEDLES) 32 insulin Branc h gauge x three 5/32" Ndle times a day. For ICD 10 code of: E11.40 Insulin 2016-0 Yes Use as [facility], 1-13 directed ity of Disposable, 00:00: to [place] (RELION PEN 00 administer Me dical NEEDLES) 32 insulin Branc h gauge x three 5/32" Ndle times a day. For ICD 10 code of: E11.40 Insulin 2016-0 Yes Use as [facility], 1-13 directed ity of Disposable, 00:00: to [place] (RELION PEN 00 administer Me dical NEEDLES) 32 insulin Branc h gauge x three 5/32" Ndle times a day. For ICD 10 code of: E11.40 Insulin 2016-0 Yes Use as [facility], 1-13 directed ity of Disposable, 00:00: to [place] (RELION PEN 00 administer Me dical NEEDLES) 32 insulin Branc h gauge x three 5/32" Ndle times a day. For ICD 10 code of: E11.40 Insulin 2016-0 Yes Use as [facility], 1-13 directed ity of Disposable, 00:00: to [place] (RELION PEN 00 administer Me dical NEEDLES) 32 insulin Branc h gauge x three 5/32" Ndle times a day. For ICD 10 code of: E11.40 Insulin 2016-0 Yes Use as [facility], 1- directed ity of Disposable, 00:00: to [place] (RELION PEN 00 administer Me dical NEEDLES) 32 insulin Branc h gauge x three 5/32" Ndle times a day. For ICD 10 code of: E11.40 Insulin 2016-0 Yes Use as [facility], 1- directed ity of Disposable, 00:00: to [place] (RELION PEN 00 administer Me dical NEEDLES) 32 insulin Branc h gauge x three 5/32" Ndle times a day. For ICD 10 code of: E11.40 Insulin 2016-0 Yes Use as [facility], 1- directed ity of Disposable, 00:00: to [place] (RELION PEN 00 administer Me dical NEEDLES) 32 insulin Branc h gauge x three 5/32" Ndle times a day. For ICD 10 code of: E11.40 Insulin 2016-0 Yes Use as [facility], 1- directed ity of Disposable, 00:00: to [place] (RELION PEN 00 administer Me dical NEEDLES) 32 insulin Branc h gauge x three 5/32" Ndle times a day. For ICD 10 code of: E11.40 Insulin 2016-0 Yes Use as [facility], 1- directed ity of Disposable, 00:00: to [place] (RELION PEN 00 administer Me dical NEEDLES) 32 insulin Branc h gauge x three 5/32" Ndle times a day. For ICD 10 code of: E11.40 Insulin 2016-0 Yes Use as [facility], 1-13 directed ity of Disposable, 00:00: to [place] (RELION PEN 00 administer Me dical NEEDLES) 32 insulin Branc h gauge x three 5/32" Ndle times a day. For ICD 10 code of: E11.40 Insulin 2016-0 Yes Use as [facility], 1-13 directed ity of Disposable, 00:00: to [place] (RELION PEN 00 administer Me dical NEEDLES) 32 insulin Branc h gauge x three 5/32" Ndle times a day. For ICD 10 code of: E11.40 Insulin 2016-0 Yes Use as [facility], 1- directed ity of Disposable, 00:00: to [place] (RELION PEN 00 administer Me dical NEEDLES) 32 insulin Branc h gauge x three 5/32" Ndle times a day. For ICD 10 code of: E11.40 Insulin 2016-0 Yes Use as [facility], 1- directed ity of Disposable, 00:00: to [place] (RELION PEN 00 administer Me dical NEEDLES) 32 insulin Branc h gauge x three 5/32" Ndle times a day. For ICD 10 code of: E11.40 Insulin 2016-0 Yes Use as [facility], 1- directed ity of Disposable, 00:00: to [place] (RELION PEN 00 administer Me dical NEEDLES) 32 insulin Branc h gauge x three 5/32" Ndle times a day. For ICD 10 code of: E11.40 Insulin 2016-0 Yes Use as [facility], 1- directed ity of Disposable, 00:00: to [place] (RELION PEN 00 administer Me dical NEEDLES) 32 insulin Branc h gauge x three 5/32" Ndle times a day. For ICD 10 code of: E11.40 Insulin 2016-0 Yes Use as [facility], 1- directed ity of Disposable, 00:00: to [place] (RELION PEN 00 administer Me dical NEEDLES) 32 insulin Branc h gauge x three 5/32" Ndle times a day. For ICD 10 code of: E11.40 Insulin 2016-0 Yes Use as [facility], 1- directed ity of Disposable, 00:00: to [place] (RELION PEN 00 administer Me dical NEEDLES) 32 insulin Branc h gauge x three 5/32" Ndle times a day. For ICD 10 code of: E11.40 Insulin 2016-0 Yes Use as [facility], 1-13 directed ity of Disposable, 00:00: to [place] (RELION PEN 00 administer Me dical NEEDLES) 32 insulin Branc h gauge x three 5/32" Ndle times a day. For ICD 10 code of: E11.40 Insulin 2016-0 Yes Use as [facility], 1- directed ity of Disposable, 00:00: to [place] (RELION PEN 00 administer Me dical NEEDLES) 32 insulin Branc h gauge x three 5/32" Ndle times a day. For ICD 10 code of: E11.40 Insulin 2016-0 Yes Use as [facility], 1- directed ity of Disposable, 00:00: to [place] (RELION PEN 00 administer Me dical NEEDLES) 32 insulin Branc h gauge x three 5/32" Ndle times a day. For ICD 10 code of: E11.40 Insulin 2016-0 Yes Use as [facility], 1- directed ity of Disposable, 00:00: to [place] (RELION PEN 00 administer Me dical NEEDLES) 32 insulin Branc h gauge x three 5/32" Ndle times a day. For ICD 10 code of: E11.40 Insulin 2016-0 Yes Use as [facility], 1 directed ity of Disposable, 00:00: to [place] (RELION PEN 00 administer Me dical NEEDLES) 32 insulin Branc h gauge x three 5/32" Ndle times a day. For ICD 10 code of: E11.40 Insulin 2016-0 Yes Use as [facility], 1 directed ity of Disposable, 00:00: to [place] (RELION PEN 00 administer Me dical NEEDLES) 32 insulin Branc h gauge x three 5/32" Ndle times a day. For ICD 10 code of: E11.40 Insulin 2016-0 Yes Use as [facility], 1 directed ity of Disposable, 00:00: to [place] (RELION PEN 00 administer Me dical NEEDLES) 32 insulin Branc h gauge x three 5/32" Ndle times a day. For ICD 10 code of: E11.40 Insulin 2016-0 Yes Use as [facility], 1- directed ity of Disposable, 00:00: to [place] (RELION PEN 00 administer Me dical NEEDLES) 32 insulin Branc h gauge x three 5/32" Ndle times a day. For ICD 10 code of: E11.40 Insulin 2016-0 Yes Use as [facility], 1- directed ity of Disposable, 00:00: to [place] (RELION PEN 00 administer Me dical NEEDLES) 32 insulin Branc h gauge x three 5/32" Ndle times a day. For ICD 10 code of: E11.40 Insulin 2016-0 Yes Use as [facility], 1- directed ity of Disposable, 00:00: to [place] (RELION PEN 00 administer Me dical NEEDLES) 32 insulin Branc h gauge x three 5/32" Ndle times a day. For ICD 10 code of: E11.40 Insulin 2016-0 Yes Use as [facility], 1- directed ity of Disposable, 00:00: to [place] (RELION PEN 00 administer Me dical NEEDLES) 32 insulin Branc h gauge x three 5/32" Ndle times a day. For ICD 10 code of: E11.40 Insulin 2016-0 Yes Use as [facility], 1- directed ity of Disposable, 00:00: to [place] (RELION PEN 00 administer Me dical NEEDLES) 32 insulin Branc h gauge x three 5/32" Ndle times a day. For ICD 10 code of: E11.40 Insulin 2016-0 Yes Use as [facility], 1 directed ity of Disposable, 00:00: to [place] (RELION PEN 00 administer Me dical NEEDLES) 32 insulin Branc h gauge x three 5/32" Ndle times a day. For ICD 10 code of: E11.40 Insulin 2016-0 Yes Use as [facility], 1- directed ity of Disposable, 00:00: to [place] (RELION PEN 00 administer Me dical NEEDLES) 32 insulin Branc h gauge x three 5/32" Ndle times a day. For ICD 10 code of: E11.40 Insulin 2016-0 Yes Use as [facility], 1- directed ity of Disposable, 00:00: to [place] (RELION PEN 00 administer Me dical NEEDLES) 32 insulin Branc h gauge x three 5/32" Ndle times a day. For ICD 10 code of: E11.40 Insulin 2016-0 Yes Use as [facility], 1- directed ity of Disposable, 00:00: to [place] (RELION PEN 00 administer Me dical NEEDLES) 32 insulin Branc h gauge x three 5/32" Ndle times a day. For ICD 10 code of: E11.40 Insulin 2016-0 Yes Use as [facility], 1- directed ity of Disposable, 00:00: to [place] (RELION PEN 00 administer Me dical NEEDLES) 32 insulin Branc h gauge x three 5/32" Ndle times a day. For ICD 10 code of: E11.40 Insulin 2016-0 Yes Use as [facility], 1- directed ity of Disposable, 00:00: to [place] (RELION PEN 00 administer Me dical NEEDLES) 32 insulin Branc h gauge x three 5/32" Ndle times a day. For ICD 10 code of: E11.40 Insulin 2016-0 Yes Use as [facility], 1- directed ity of Disposable, 00:00: to [place] (RELION PEN 00 administer Me dical NEEDLES) 32 insulin Branc h gauge x three 5/32" Ndle times a day. For ICD 10 code of: E11.40 Insulin 2016-0 Yes Use as [facility], 1- directed ity of Disposable, 00:00: to [place] (RELION PEN 00 administer Me dical NEEDLES) 32 insulin Branc h gauge x three 5/32" Ndle times a day. For ICD 10 code of: E11.40 Insulin 2016-0 Yes Use as [facility], 1 directed ity of Disposable, 00:00: to [place] (RELION PEN 00 administer Me dical NEEDLES) 32 insulin Branc h gauge x three 5/32" Ndle times a day. For ICD 10 code of: E11.40 Insulin 2016-0 Yes Use as [facility], 1 directed ity of Disposable, 00:00: to [place] ([facility] 00 administer Me dical NEEDLES) 32 insulin Branc h gauge x three 5/32" Ndle times a day. For ICD 10 code of: E11.40 Insulin 2016-0 Yes Use as [facility], 1 directed [facility]y of Disposable, 00:00: to [place] ([facility] P[facility] 00 administer Me dical NEEDLES) 32 insulin Branc h gauge x three 5/32" Ndle times a day. For ICD 10 code of: E11.40 Insulin 2016-0 Yes Use as [facility], 1- directed [facility]y of Disposable, 00:00: to [place] ([facility] P[facility] 00 administer Me dical NEEDLES) 32 insulin Branc h gauge x three 5/32" Ndle times a day. For ICD 10 code of: E11.40 Insulin 2016-0 Yes Use as [facility], 1- directed ity of Disposable, 00:00: to [place] ([facility] P[facility] 00 administer Me dical NEEDLES) 32 insulin Branc h gauge x three 5/32" Ndle times a day. For ICD 10 code of: E11.40 Insulin 2016-0 Yes Use as [facility], 1-13 directed ity of Disposable, 00:00: to [place] ([facility] P[facility] 00 administer Me dical NEEDLES) 32 insulin Branc h gauge x three 5/32" Ndle times a day. For ICD 10 code of: E11.40 Insulin 2016-0 Yes Use as [facility], 1-13 directed ity of Disposable, 00:00: to [place] ([facility] P[facility] 00 administer Me dical NEEDLES) 32 insulin Branc h gauge x three 5/32" Ndle times a day. For ICD 10 code of: E11.40 Insulin 2016-0 Yes Use as [facility], 1-13 directed ity of Disposable, 00:00: to [place] ([facility] P[facility] 00 administer Me dical NEEDLES) 32 insulin Branc h gauge x three 5/32" Ndle times a day. For ICD 10 code of: E11.40 Insulin 2016-0 Yes Use as [facility], 1-13 directed ity of Disposable, 00:00: to [place] ([facility] P[facility] 00 administer Me dical NEEDLES) 32 insulin Branc h gauge x three 5/32" Ndle times a day. For ICD 10 code of: E11.40 Insulin 2016-0 Yes Use as [facility], 1- directed ity of Disposable, 00:00: to [place] ([facility] PEN 00 administer Me dical NEEDLES) 32 insulin Branc h gauge x three 5/32" Ndle times a day. For ICD 10 code of: E11.40 Insulin 2016-0 Yes Use as [facility], 1- directed ity of Disposable, 00:00: to [place] ([facility] PEN 00 administer Me dical NEEDLES) 32 insulin Branc h gauge x three 5/32" Ndle times a day. For ICD 10 code of: E11.40 Insulin 2016-0 Yes Use as [facility], 1-13 directed ity of Disposable, 00:00: to [place] ([facility] PEN 00 administer Me dical NEEDLES) 32 insulin Branc h gauge x three 5/32" Ndle times a day. For ICD 10 code of: E11.40 Insulin 2016-0 Yes Use as [facility], 1-13 directed ity of Disposable, 00:00: to [place] ([facility] PEN 00 administer Me dical NEEDLES) 32 insulin Branc h gauge x three 5/32" Ndle times a day. For ICD 10 code of: E11.40 Insulin 2016-0 Yes Use as [facility], 1-13 directed ity of Disposable, 00:00: to [place] ([facility] P[facility] 00 administer Me dical NEEDLES) 32 insulin Branc h gauge x three 5/32" Ndle times a day. For ICD 10 code of: E11.40 Insulin 2016-0 Yes Use as [facility], 1-13 directed ity of Disposable, 00:00: to [place] ([facility] P[facility] 00 administer Me dical NEEDLES) 32 insulin Branc h gauge x three 5/32" Ndle times a day. For ICD 10 code of: E11.40 Insulin 2016-0 Yes Use as [facility], 1-13 directed ity of Disposable, 00:00: to [place] ([facility] P[facility] 00 administer Me dical NEEDLES) 32 insulin Branc h gauge x three 5/32" Ndle times a day. For ICD 10 code of: E11.40 Insulin 2016-0 Yes Use as [facility], 1-13 directed ity of Disposable, 00:00: to [place] ([facility] P[facility] 00 administer Me dical NEEDLES) 32 insulin Branc h gauge x three 5/32" Ndle times a day. For ICD 10 code of: E11.40 Insulin 2016-0 Yes Use as [facility], 1-13 directed ity of Disposable, 00:00: to [place] ([facility] P[facility] 00 administer Me dical NEEDLES) 32 insulin Branc h gauge x three 5/32" Ndle times a day. For ICD 10 code of: E11.40 Insulin 2016-0 Yes Use as [facility], 1-13 directed ity of Disposable, 00:00: to [place] ([facility] PEN 00 administer Me dical NEEDLES) 32 insulin Branc h gauge x three 5/32" Ndle times a day. For ICD 10 code of: E11.40 Insulin 2016-0 Yes Use as [facility], 1-13 directed ity of Disposable, 00:00: to [place] ([facility] PEN 00 administer Me dical NEEDLES) 32 insulin Branc h gauge x three 5/32" Ndle times a day. For ICD 10 code of: E11.40 Insulin 2016-0 Yes Use as [facility], 1-13 directed ity of Disposable, 00:00: to [place] ([facility] P[facility] 00 administer Me dical NEEDLES) 32 insulin Branc h gauge x three 5/32" Ndle times a day. For ICD 10 code of: E11.40 Insulin 2016-0 Yes Use as [facility], 1-13 directed ity of Disposable, 00:00: to [place] ([facility] P[facility] 00 administer Me dical NEEDLES) 32 insulin Branc h gauge x three 5/32" Ndle times a day. For ICD 10 code of: E11.40 Insulin 2016-0 Yes Use as [facility], 1-13 directed ity of Disposable, 00:00: to [place] ([facility] P[facility] 00 administer Me dical NEEDLES) 32 insulin Branc h gauge x three 5/32" Ndle times a day. For ICD 10 code of: E11.40 Insulin 2016-0 Yes Use as [facility], 1-13 directed ity of Disposable, 00:00: to [place] ([facility] P[facility] 00 administer Me dical NEEDLES) 32 insulin Branc h gauge x three 5/32" Ndle times a day. For ICD 10 code of: E11.40 Insulin 2016-0 Yes Use as [facility], 1-13 directed ity of Disposable, 00:00: to [place] ([facility] P[facility] 00 administer Me dical NEEDLES) 32 insulin Branc h gauge x three 5/32" Ndle times a day. For ICD 10 code of: E11.40 Insulin 2016-0 Yes Use as [facility], 1-13 directed ity of Disposable, 00:00: to [place] ([facility] PEN 00 administer Me dical NEEDLES) 32 insulin Branc h gauge x three 5/32" Ndle times a day. For ICD 10 code of: E11.40 Insulin 2016-0 Yes Use as [facility], 1-13 directed ity of Disposable, 00:00: to [place] ([facility] PEN 00 administer Me dical NEEDLES) 32 insulin Branc h gauge x three 5/32" Ndle times a day. For ICD 10 code of: E11.40 Insulin 2016-0 Yes Use as [facility], 1-13 directed ity of Disposable, 00:00: to [place] ([facility] P[facility] 00 administer Me dical NEEDLES) 32 insulin Branc h gauge x three 5/32" Ndle times a day. For ICD 10 code of: E11.40 Insulin 2016-0 Yes Use as [facility], 1-13 directed ity of Disposable, 00:00: to [place] ([facility] PEN 00 administer Me dical NEEDLES) 32 insulin Branc h gauge x three 5/32" Ndle times a day. For ICD 10 code of: E11.40 Insulin 2016-0 Yes Use as [facility], 1-13 directed ity of Disposable, 00:00: to [place] ([facility] P[facility] 00 administer Me dical NEEDLES) 32 insulin Branc h gauge x three 5/32" Ndle times a day. For ICD 10 code of: E11.40 Insulin 2016-0 Yes Use as [facility], 1-13 directed ity of Disposable, 00:00: to [place] ([facility] PEN 00 administer Me dical NEEDLES) 32 insulin Branc h gauge x three 5/32" Ndle times a day. For ICD 10 code of: E11.40 Insulin 2016-0 Yes Use as [facility], 1-13 directed ity of Disposable, 00:00: to [place] ([facility] P[facility] 00 administer Me dical NEEDLES) 32 insulin Branc h gauge x three 5/32" Ndle times a day. For ICD 10 code of: E11.40 Insulin 2016-0 Yes Use as [facility], 1-13 directed ity of Disposable, 00:00: to [place] ([facility] P[facility] 00 administer Me dical NEEDLES) 32 insulin Branc h gauge x three 5/32" Ndle times a day. For ICD 10 code of: E11.40 Insulin 2016-0 Yes Use as [facility], 1-13 directed ity of Disposable, 00:00: to [place] ([facility] P[facility] 00 administer Me dical NEEDLES) 32 insulin Branc h gauge x three 5/32" Ndle times a day. For ICD 10 code of: E11.40 Insulin 2016-0 Yes Use as [facility], 1-13 directed ity of Disposable, 00:00: to [place] ([facility] PEN 00 administer Me dical NEEDLES) 32 insulin Branc h gauge x three 5/32" Ndle times a day. For ICD 10 code of: E11.40 Insulin 2016-0 Yes Use as [facility], 1-13 directed ity of Disposable, 00:00: to [place] ([facility] PEN 00 administer Me dical NEEDLES) 32 insulin Branc h gauge x three 5/32" Ndle times a day. For ICD 10 code of: E11.40 Insulin 2016-0 Yes Use as [facility], 1-13 directed ity of Disposable, 00:00: to [place] ([facility] PEN 00 administer Me dical NEEDLES) 32 insulin Branc h gauge x three 5/32" Ndle times a day. For ICD 10 code of: E11.40 Insulin 2016-0 Yes Use as [facility], 1-13 directed ity of Disposable, 00:00: to [place] ([facility] PEN 00 administer Me dical NEEDLES) 32 insulin Branc h gauge x three 5/32" Ndle times a day. For ICD 10 code of: E11.40 Insulin 2016-0 Yes Use as [facility], 1-13 directed ity of Disposable, 00:00: to [place] ([facility] PEN 00 administer Me dical NEEDLES) 32 insulin Branc h gauge x three 5/32" Ndle times a day. For ICD 10 code of: E11.40 Insulin 2016-0 Yes Use as [facility], 1-13 directed ity of Disposable, 00:00: to [place] ([facility] PEN 00 administer Me dical NEEDLES) 32 insulin Branc h gauge x three 5/32" Ndle times a day. For ICD 10 code of: E11.40 Insulin 2016-0 Yes Use as [facility], 1-13 directed ity of Disposable, 00:00: to [place] ([facility] PEN 00 administer Me dical NEEDLES) 32 insulin Branc h gauge x three 5/32" Ndle times a day. For ICD 10 code of: E11.40 Insulin 2016-0 Yes Use as [facility], 1-13 directed ity of Disposable, 00:00: to [place] ([facility] PEN 00 administer Me dical NEEDLES) 32 insulin Branc h gauge x three 5/32" Ndle times a day. For ICD 10 code of: E11.40 Insulin 2016-0 Yes Use as [facility], 1-13 directed ity of Disposable, 00:00: to [place] ([facility] PEN 00 administer Me dical NEEDLES) 32 insulin Branc h gauge x three 5/32" Ndle times a day. For ICD 10 code of: E11.40 Insulin 2016-0 Yes Use as [facility], 1-13 directed ity of Disposable, 00:00: to [place] ([facility] PEN 00 administer Me dical NEEDLES) 32 insulin Branc h gauge x three 5/32" Ndle times a day. For ICD 10 code of: E11.40 Insulin 2016-0 Yes Use as [facility], 1-13 directed ity of Disposable, 00:00: to [place] ([facility] PEN 00 administer Me dical NEEDLES) 32 insulin Branc h gauge x three 5/32" Ndle times a day. For ICD 10 code of: E11.40 Insulin 2016-0 Yes Use as [facility], 1-13 directed ity of Disposable, 00:00: to [place] ([facility] PEN 00 administer Me dical NEEDLES) 32 insulin Branc h gauge x three 5/32" Ndle times a day. For ICD 10 code of: E11.40 Insulin 2016-0 Yes Use as [facility], 1-13 directed ity of Disposable, 00:00: to [place] ([facility] PEN 00 administer Me dical NEEDLES) 32 insulin Branc h gauge x three 5/32" Ndle times a day. For ICD 10 code of: E11.40 Insulin 2016-0 Yes Use as [facility], 1-13 directed ity of Disposable, 00:00: to [place] ([facility] PEN 00 administer Me dical NEEDLES) 32 insulin Branc h gauge x three 5/32" Ndle times a day. For ICD 10 code of: E11.40 Insulin 2016-0 Yes Use as [facility], 1-13 directed ity of Disposable, 00:00: to [place] ([facility] PEN 00 administer Me dical NEEDLES) 32 insulin Branc h gauge x three 5/32" Ndle times a day. For ICD 10 code of: E11.40 Immunizations Ordered Filled Immunization Date Status Comments [facility] e Immunization Name Name Influenza Virus 2022-08-23 Completed [facility] [place] [facility] 65+ Influenza Virus 2022-08-23 Completed [facility] 00:00:00 [place] [facility] 65+ Influenza Virus 2022-08-23 Completed [facility] Vacc[facility] 00:00:00 [place] [facility] 65+ Influenza Virus 2022-08-23 Completed [facility] Vaccine,quad 00:00:00 [place] [facility] 65+ Influenza Virus 2022-08-23 Completed [facility] Vaccine,quad 00:00:00 [place] [facility] 65+ Influenza Virus 2022-08-23 Completed [facility] Vaccine,quad 00:00:00 [place] [facility] 65+ Influenza Virus 2022-08-23 Completed [facility] Vaccine,quad 00:00:00 [place] [facility] 65+ Influenza Virus 2022-08-23 Completed [facility] Vaccine,quad 00:00:00 [place] [facility] 65+ Influenza Virus 2022-08-23 Completed [facility] Vaccine,quad 00:00:00 [place] [facility] 65+ Influenza Virus 2022-08-23 Completed [facility] Vaccine,quad 00:00:00 [place] [facility] 65+ Influenza Virus 2022-08-23 Completed [facility] Vaccine,quad 00:00:00 [place] [facility] 65+ Influenza Virus 2022-08-23 Completed [facility] Vaccine,quad 00:00:00 [place] [facility] 65+ Influenza Virus 2022-08-23 Completed [facility] Vaccine,quad 00:00:00 [place] [facility] 65+ Influenza Virus 2022-08-23 Completed [facility] Vaccine,quad 00:00:00 [place] [facility] 65+ Influenza Virus 2022-08-23 Completed [facility] Vaccine,quad 00:00:00 [place] [facility] 65+ Influenza Virus 2022-08-23 Completed [facility] Vaccine,quad 00:00:00 [place] [facility] 65+ Influenza Virus 2022-08-23 Completed [facility] Vaccine,quad 00:00:00 [place] [facility] 65+ Influenza Virus 2022-08-23 Completed [facility] Vaccine,quad 00:00:00 [place] [facility] 65+ Influenza Virus 2022-08-23 Completed [facility] Vaccine,quad 00:00:00 [place] [facility] 65+ Influenza Virus 2022-08-23 Completed [facility] Vaccine,quad 00:00:00 [place] [facility] 65+ Influenza Virus 2022-08-23 Completed [facility] Vaccine,quad 00:00:00 [place] [facility] 65+ Influenza Virus 2022-08-23 Completed [facility] Vaccine,quad 00:00:00 [place] [facility] 65+ Influenza Virus 2022-08-23 Completed [facility] Vaccine,quad 00:00:00 [place] [facility] 65+ Influenza Virus 2022-08-23 Completed [facility] Vaccine,quad 00:00:00 [place] [facility] 65+ Influenza Virus 2022-08-23 Completed [facility] Vaccine,quad 00:00:00 [place] [facility] 65+ Influenza Virus 2022-08-23 Completed [facility] Vaccine,quad 00:00:00 [place] [facility] 65+ Influenza Virus 2022-08-23 Completed [facility] Vaccine,quad 00:00:00 [place] [facility] 65+ Influenza Virus 2022-08-23 Completed [facility] Vaccine,quad 00:00:00 [place] [facility] 65+ Influenza Virus 2022-08-23 Completed [facility] Vaccine,quad 00:00:00 [place] [facility] 65+ Influenza Virus 2022-08-23 Completed [facility] Vaccine,quad 00:00:00 [place] [facility] 65+ Influenza Virus 2022-08-23 Completed [facility] Vaccine,quad 00:00:00 [place] [facility] 65+ Influenza Virus 2022-08-23 Completed [facility] Vaccine,quad 00:00:00 [place] [facility] 65+ Influenza Virus 2022-08-23 Completed [facility] Vaccine,quad 00:00:00 [place] [facility] 65+ Influenza Virus 2022-08-23 Completed [facility] Vaccine,quad 00:00:00 [place] [facility] 65+ Influenza Virus 2022-08-23 Completed [facility] Vaccine,quad 00:00:00 [place] [facility] 65+ Influenza Virus 2022-08-23 Completed [facility] Vaccine,quad 00:00:00 [place] [facility] 65+ Influenza Virus 2022-08-23 Completed [facility] Vaccine,quad 00:00:00 [place] [facility] 65+ Influenza Virus 2022-08-23 Completed [facility] Vaccine,quad 00:00:00 [place] [facility] 65+ Influenza Virus 2022-08-23 Completed [facility] Vaccine,quad 00:00:00 [place] [facility] 65+ Influenza Virus 2022-08-23 Completed [facility] Vaccine,quad 00:00:00 [place] [facility] 65+ Influenza Virus 2022-08-23 Completed [facility] Vaccine,quad 00:00:00 [place] [facility] 65+ Influenza Virus 2022-08-23 Completed [facility] Vaccine,quad 00:00:00 [place] [facility] 65+ Influenza Virus 2022-08-23 Completed [facility] Vaccine,quad 00:00:00 [place] [facility] 65+ Influenza Virus 2022-08-23 Completed [facility] Vaccine,quad 00:00:00 [place] [facility] 65+ Influenza Virus 2022-08-23 Completed [facility] Vaccine,quad 00:00:00 [place] [facility] 65+ Influenza Virus 2022-08-23 Completed [facility] Vaccine,quad 00:00:00 [place] [facility] 65+ Influenza Virus 2022-08-23 Completed [facility] Vaccine,quad 00:00:00 [place] [facility] 65+ Influenza Virus 2022-08-23 Completed [facility] Vaccine,quad 00:00:00 [place] [facility] 65+ Influenza Virus 2022-08-23 Completed [facility] Vaccine,quad 00:00:00 [place] [facility] 65+ Influenza Virus 2022-08-23 Completed [facility] Vaccine,quad 00:00:00 [place] [facility] 65+ Influenza Virus 2022-08-23 Completed [facility] Vaccine,quad 00:00:00 [place] [facility] 65+ Influenza Virus 2022-08-23 Completed [facility] Vaccine,quad 00:00:00 [place] [facility] 65+ Influenza Virus 2022-08-23 Completed [facility] Vaccine,quad 00:00:00 [place] [facility] 65+ Influenza Virus 2022-08-23 Completed [facility] Vaccine,quad 00:00:00 [place] [facility] 65+ Influenza Virus 2022-08-23 Completed [facility] Vaccine,quad 00:00:00 [place] [facility] 65+ Influenza Virus 2022-08-23 Completed [facility] Vaccine,quad 00:00:00 [place] [facility] 65+ Influenza Virus 2022-08-23 Completed [facility] Vaccine,quad 00:00:00 [place] [facility] 65+ Influenza Virus 2022-08-23 Completed [facility] Vaccine,quad 00:00:00 [place] [facility] 65+ Influenza Virus 2022-08-23 Completed [facility] Vaccine,quad 00:00:00 [place] [facility] 65+ Influenza Virus 2022-08-23 Completed [facility] Vaccine,quad 00:00:00 [place] [facility] 65+ Influenza Virus 2022-08-23 Completed [facility] Vaccine,quad 00:00:00 [place] [facility] 65+ Influenza Virus 2022-08-23 Completed [facility] Vaccine,quad 00:00:00 [place] [facility] 65+ Influenza Virus 2022-08-23 Completed [facility] Vaccine,quad 00:00:00 [place] [facility] 65+ Influenza Virus 2022-08-23 Completed [facility] Vaccine,quad 00:00:00 [place] [facility] 65+ Influenza Virus 2022-08-23 Completed [facility] Vaccine,quad 00:00:00 [place] [facility] 65+ Influenza Virus 2022-08-23 Completed [facility] Vaccine,quad 00:00:00 [place] [facility] 65+ Influenza Virus 2022-08-23 Completed [facility] Vaccine,quad 00:00:00 [place] [facility] 65+ Influenza Virus 2022-08-23 Completed [facility] Vaccine,quad 00:00:00 [place] [facility] 65+ Influenza Virus 2022-08-23 Completed [facility] Vaccine,quad 00:00:00 [place] [facility] 65+ Influenza Virus 2022-08-23 Completed [facility] Vaccine,quad 00:00:00 [place] [facility] 65+ Influenza Virus 2022-08-23 Completed [facility] Vaccine,quad 00:00:00 [place] [facility] 65+ Influenza Virus 2022-08-23 Completed [facility] Vaccine,quad 00:00:00 [place] [facility] 65+ Influenza Virus 2022-08-23 Completed [facility] Vaccine,quad 00:00:00 [place] [facility] 65+ Influenza Virus 2022-08-23 Completed [facility] Vaccine,quad 00:00:00 [place] [facility] 65+ Influenza Virus 2022-08-23 Completed [facility] Vaccine,quad 00:00:00 [place] [facility] 65+ Influenza Virus 2022-08-23 Completed [facility] Vaccine,quad 00:00:00 [place] [facility] 65+ Influenza Virus 2022-08-23 Completed [facility] Vaccine,quad 00:00:00 [place] [facility] 65+ Influenza Virus 2022-08-23 Completed [facility] Vaccine,quad 00:00:00 [place] [facility] 65+ Influenza Virus 2022-08-23 Completed [facility] Vaccine,quad 00:00:00 [place] [facility] 65+ Influenza Virus 2022-08-23 Completed [facility] Vaccine,quad 00:00:00 [place] [facility] 65+ Influenza Virus 2022-08-23 Completed [facility] Vaccine,quad 00:00:00 [place] [facility] 65+ Influenza Virus 2022-08-23 Completed [facility] Vaccine,quad 00:00:00 [place] [facility] 65+ Influenza Virus 2022-08-23 Completed [facility] Vaccine,quad 00:00:00 [place] [facility] 65+ Influenza Virus 2022-08-23 Completed [facility] Vaccine,quad 00:00:00 [place] [facility] 65+ Influenza Virus 2022-08-23 Completed [facility] Vaccine,quad 00:00:00 [place] [facility] 65+ Influenza Virus 2022-08-23 Completed [facility] Vaccine,quad 00:00:00 [place] [facility] 65+ Influenza Virus 2022-08-23 Completed [facility] Vaccine,quad 00:00:00 [place] [facility] 65+ Influenza Virus 2022-08-23 Completed [facility] Vaccine,quad 00:00:00 [place] [facility] 65+ Influenza Virus 2022-08-23 Completed [facility] Vaccine,quad 00:00:00 [place] [facility] 65+ Influenza Virus 2022-08-23 Completed [facility] Vaccine,quad 00:00:00 [place] [facility] 65+ Influenza Virus 2022-08-23 Completed [facility] Vaccine,quad 00:00:00 [place] [facility] 65+ Influenza Virus 2022-08-23 Completed [facility] Vaccine,quad 00:00:00 [place] [facility] 65+ Influenza Virus 2022-08-23 Completed [facility] Vaccine,quad 00:00:00 [place] [facility] 65+ Influenza Virus 2022-08-23 Completed [facility] Vaccine,quad 00:00:00 [place] [facility] 65+ Influenza Virus 2022-08-23 Completed [facility] Vaccine,quad 00:00:00 [place] [facility] 65+ Influenza Virus 2022-08-23 Completed [facility] Vaccine,quad 00:00:00 [place] [facility] 65+ Influenza Virus 2022-08-23 Completed [facility] Vaccine,quad 00:00:00 [place] [facility] 65+ Influenza Virus 2022-08-23 Completed [facility] Vaccine,quad 00:00:00 [place] [facility] 65+ Influenza Virus 2022-08-23 Completed [facility] Vaccine,quad 00:00:00 [place] [facility] 65+ Influenza Virus 2022-08-23 Completed [facility] Vaccine,quad 00:00:00 [place] [facility] 65+ Influenza Virus 2022-08-23 Completed [facility] Vaccine,quad 00:00:00 [place] [facility] 65+ Influenza Virus 2022-08-23 Completed [facility] Vaccine,quad 00:00:00 [place] [facility] 65+ Influenza Virus 2022-08-23 Completed [facility] Vaccine,quad 00:00:00 [place] [facility] 65+ Influenza Virus 2022-08-23 Completed [facility] Vaccine,quad 00:00:00 [place] [facility] 65+ Influenza Virus 2022-08-23 Completed [facility] Vaccine,quad 00:00:00 [place] [facility] 65+ Influenza Virus 2022-08-23 Completed [facility] Vaccine,quad 00:00:00 [place] [facility] 65+ Influenza Virus 2022-08-23 Completed [facility] Vaccine,quad 00:00:00 [place] [facility] 65+ Influenza Virus 2022-08-23 Completed [facility] Vaccine,quad 00:00:00 [place] [facility] 65+ Influenza Virus 2022-08-23 Completed [facility] Vaccine,quad 00:00:00 [place] [facility] 65+ Influenza Virus 2022-08-23 Completed [facility] Vaccine,quad 00:00:00 [place] [facility] 65+ Influenza Virus 2022-08-23 Completed [facility] Vaccine,quad 00:00:00 [place] [facility] 65+ Influenza Virus 2022-08-23 Completed [facility] Vaccine,quad 00:00:00 [place] [facility] 65+ Influenza Virus 2022-08-23 Completed [facility] 65+ Influenza Virus 2022-08-23 Completed [facility] 00:00[facility]00 [facility] 65+ Influenza Virus 2022-08-23 Completed [facility] 00:00[facility]00 [facility] 65+ Influenza Virus 2022-08-23 Completed [facility] 00:00:00 [facility] 65+ Influenza Virus 2022-08-23 Completed [facility] 00:00:00 [facility] 65+ Influenza Virus 2022-08-23 Completed [facility] 00:00:00 [facility] 65+ Influenza Virus 2022-08-23 Completed [facility] 00:00:00 [facility] 65+ Influenza Virus 2022-08-23 Completed [facility] 00:00:00 [facility] 65+ Influenza Virus 2022-08-23 Completed [facility] 00:00:00 [facility] 65+ Influenza Virus 2022-08-23 Completed [facility] 00:00:00 [facility] 65+ Influenza Virus 2022-08-23 Completed [facility] 00:00:00 [facility] 65+ Influenza Virus 2022-08-23 Completed [facility] 00:00:00 [facility] 65+ Influenza Virus 2022-08-23 Completed [facility] 00:00:00 [facility] 65+ Influenza Virus 2022-08-23 Completed [facility] 00:00:00 [facility] 65+ Influenza Virus 2022-08-23 Completed [facility] 00:00:00 [facility] 65+ Influenza Virus 2022-08-23 Completed [facility] 00:00:00 [facility] 65+ Influenza Virus 2022-08-23 Completed [facility] 00:00:00 [facility] 65+ Influenza Virus 2022-08-23 Completed [facility] 00:00:00 [facility] 65+ Influenza Virus 2022-08-23 Completed [facility] 00:00:00 [facility] 65+ Influenza Virus 2022-08-23 Completed [facility] 00:00:00 [facility] 65+ Influenza Virus 2022-08-23 Completed [facility] 00:00:00 [facility] 65+ Influenza Virus 2022-08-23 Completed [facility] 00:00:00 [facility] 65+ SARS-COV-2 COVID-19 2022-08-19 Completed [facility]00 [facility] Y[facility] Branch BIVALENT 0.3ML, IM, (PFIZER LOERA TOP BOOSTER) SARS-COV-2 COVID-19 2022-08-19 Completed [facility]:00:00 [facility] Y[facility]+, Branch BIVALENT 0.3ML, IM, (PFIZER LOERA TOP BOOSTER) SARS-COV-2 COVID-19 2022-08-19 Completed [facility]:00:00 [facility] Y[facility]+, Branch BIVALENT 0.3ML, IM, (PFIZER LOERA TOP BOOSTER) SARS-COV-2 COVID-19 2022-08-19 Completed [facility] 00:00:00 [facility] Y[facility]+, Branch BIVALENT 0.3ML, IM, (PFIZER LOERA TOP BOOSTER) SARS-COV-2 COVID-19 2022-08-19 Completed [facility]:00:00 [facility] YRS+, Branch BIVALENT 0.3ML, IM, (PFIZER LOERA TOP BOOSTER) SARS-COV-2 COVID-19 2022-08-19 Completed [facility]:00:00 [facility] YRS+, Branch BIVALENT 0.3ML, IM, (PFIZER LOERA TOP BOOSTER) SARS-COV-2 COVID-19 2022-08-19 Completed [facility] 00:00:00 [facility] YRS+, Branch BIVALENT 0.3ML, IM, (PFIZER LOERA TOP BOOSTER) SARS-COV-2 COVID-19 2022-08-19 Completed [facility] 00:00:00 [facility] 12 YRS+, Branch BIVALENT 0.3ML, IM, (PFIZER LOERA TOP BOOSTER) SARS-COV-2 COVID-19 2022-08-19 Completed [facility] 00:00:00 [facility] YRS+, Branch BIVALENT 0.3ML, IM, (PFIZER LOERA TOP BOOSTER) SARS-COV-2 COVID-19 2022-08-19 Completed [facility] 00:00:00 [facility] YRS+, Branch BIVALENT 0.3ML, IM, (PFIZER LOERA TOP BOOSTER) SARS-COV-2 COVID-19 2022-08-19 Completed [facility] 00:00:00 [facility] YRS+, Branch BIVALENT 0.3ML, IM, (PFIZER LOERA TOP BOOSTER) SARS-COV-2 COVID-19 2022-08-19 Completed [facility] 00:00:00 [facility] YRS+, Branch BIVALENT 0.3ML, IM, (PFIZER LOERA TOP BOOSTER) SARS-COV-2 COVID-19 2022-08-19 Completed [facility] 00:00:00 [facility] YRS+, Branch BIVALENT 0.3ML, IM, (PFIZER LOERA TOP BOOSTER) SARS-COV-2 COVID-19 2022-08-19 Completed [facility] 00:00:00 [facility] 12 YRS+, Branch BIVALENT 0.3ML, IM, (PFIZER LOERA TOP BOOSTER) SARS-COV-2 COVID-19 2022-08-19 Completed [facility] 00:00:00 [facility] YRS+, Branch BIVALENT 0.3ML, IM, (PFIZER LOERA TOP BOOSTER) SARS-COV-2 COVID-19 2022-08-19 Completed [facility] 00:00:00 [facility] YRS+, Branch BIVALENT 0.3ML, IM, (PFIZER LOERA TOP BOOSTER) SARS-COV-2 COVID-19 2022-08-19 Completed [facility] 00:00:00 [facility] YRS+, Branch BIVALENT 0.3ML, IM, (PFIZER LOERA TOP BOOSTER) SARS-COV-2 COVID-19 2022-08-19 Completed [facility] 00:00:00 [facility] YRS+, Branch BIVALENT 0.3ML, IM, (PFIZER LOERA TOP BOOSTER) SARS-COV-2 COVID-19 2022-08-19 Completed [facility] 00:00:00 [facility] YRS+, Branch BIVALENT 0.3ML, IM, (PFIZER LOERA TOP BOOSTER) SARS-COV-2 COVID-19 2022-08-19 Completed [facility] 00:00:00 [facility] YRS+, Branch BIVALENT 0.3ML, IM, (PFIZER LOERA TOP BOOSTER) SARS-COV-2 COVID-19 2022-08-19 Completed [facility] 00:00:00 [facility] YRS+, Branch BIVALENT 0.3ML, IM, (PFIZER LOERA TOP BOOSTER) SARS-COV-2 COVID-19 2022-08-19 Completed [facility] 00:00:00 [facility] YRS+, Branch BIVALENT 0.3ML, IM, (PFIZER LOERA TOP BOOSTER) SARS-COV-2 COVID-19 2022-08-19 Completed [facility] 00:00:00 [facility] YRS+, Branch BIVALENT 0.3ML, IM, (PFIZER LOERA TOP BOOSTER) SARS-COV-2 COVID-19 2022-08-19 Completed [facility] 00:00:00 [facility] YRS+, Branch BIVALENT 0.3ML, IM, (PFIZER LOERA TOP BOOSTER) SARS-COV-2 COVID-19 2022-08-19 Completed [facility] 00:00:00 [facility] YRS+, Branch BIVALENT 0.3ML, IM, (PFIZER LOERA TOP BOOSTER) SARS-COV-2 COVID-19 2022-08-19 Completed [facility] 00:00:00 [facility] YRS+, Branch BIVALENT 0.3ML, IM, (PFIZER LOERA TOP BOOSTER) SARS-COV-2 COVID-19 2022-08-19 Completed [facility] 00:00:00 [facility] YRS+, Branch BIVALENT 0.3ML, IM, (PFIZER LOERA TOP BOOSTER) SARS-COV-2 COVID-19 2022-08-19 Completed [facility] 00:00:00 [facility] YRS+, Branch BIVALENT 0.3ML, IM, (PFIZER LOERA TOP BOOSTER) SARS-COV-2 COVID-19 2022-08-19 Completed [facility] 00:00:00 [facility] YRS+, Branch BIVALENT 0.3ML, IM, (PFIZER LOERA TOP BOOSTER) SARS-COV-2 COVID-19 2022-08-19 Completed [facility] 00:00:00 [facility] YRS+, Branch BIVALENT 0.3ML, IM, (PFIZER LOERA TOP BOOSTER) SARS-COV-2 COVID-19 2022-08-19 Completed [facility] 00:00:00 [facility] YRS+, Branch BIVALENT 0.3ML, IM, (PFIZER LOERA TOP BOOSTER) SARS-COV-2 COVID-19 2022-08-19 Completed [facility] 00:00:00 [facility] YRS+, Branch BIVALENT 0.3ML, IM, (PFIZER LOERA TOP BOOSTER) SARS-COV-2 COVID-19 2022-08-19 Completed [facility] 00:00:00 [facility] YRS+, Branch BIVALENT 0.3ML, IM, (PFIZER LOERA TOP BOOSTER) SARS-COV-2 COVID-19 2022-08-19 Completed [facility] 00:00:00 [facility] YRS+, Branch BIVALENT 0.3ML, IM, (PFIZER LOERA TOP BOOSTER) SARS-COV-2 COVID-19 2022-08-19 Completed [facility] 00:00:00 [facility] YRS+, Branch BIVALENT 0.3ML, IM, (PFIZER LOERA TOP BOOSTER) SARS-COV-2 COVID-19 2022-08-19 Completed [facility] 00:00:00 [facility] YRS+, Branch BIVALENT 0.3ML, IM, (PFIZER LOERA TOP BOOSTER) SARS-COV-2 COVID-19 2022-08-19 Completed [facility] 00:00:00 [facility] 12 YRS+, Branch BIVALENT 0.3ML, IM, (PFIZER LOERA TOP BOOSTER) SARS-COV-2 COVID-19 2022-08-19 Completed [facility] 00:00:00 [facility] 12 YRS+, Branch BIVALENT 0.3ML, IM, (PFIZER LOERA TOP BOOSTER) SARS-COV-2 COVID-19 2022-08-19 Completed [facility] 00:00:00 [facility] 12 YRS+, Branch BIVALENT 0.3ML, IM, (PFIZER LOERA TOP BOOSTER) SARS-COV-2 COVID-19 2022-08-19 Completed [facility] 00:00:00 [facility] 12 YRS+, Branch BIVALENT 0.3ML, IM, (PFIZER LOERA TOP BOOSTER) SARS-COV-2 COVID-19 2022-08-19 Completed [facility] 00:00:00 [facility] 12 YRS+, Branch BIVALENT 0.3ML, IM, (PFIZER LOERA TOP BOOSTER) SARS-COV-2 COVID-19 2022-08-19 Completed [facility] 00:00:00 [facility] 12 YRS+, Branch BIVALENT 0.3ML, IM, (PFIZER LOERA TOP BOOSTER) SARS-COV-2 COVID-19 2022-08-19 Completed [facility] 00:00:00 [facility] 12 YRS+, Branch BIVALENT 0.3ML, IM, (PFIZER LOERA TOP BOOSTER) SARS-COV-2 COVID-19 2022-08-19 Completed [facility] 00:00:00 [facility] 12 YRS+, Branch BIVALENT 0.3ML, IM, (PFIZER LOERA TOP BOOSTER) SARS-COV-2 COVID-19 2022-08-19 Completed [facility] 00:00:00 [facility] 12 YRS+, Branch BIVALENT 0.3ML, IM, (PFIZER LOERA TOP BOOSTER) SARS-COV-2 COVID-19 2022-08-19 Completed [facility] 00:00:00 [facility] 12 YRS+, Branch BIVALENT 0.3ML, IM, (PFIZER LOERA TOP BOOSTER) SARS-COV-2 COVID-19 2022-08-19 Completed [facility] 00:00:00 [facility] 12 YRS+, Branch BIVALENT 0.3ML, IM, (PFIZER LOERA TOP BOOSTER) SARS-COV-2 COVID-19 2022-08-19 Completed [facility] 00:00:00 [facility] 12 YRS+, Branch BIVALENT 0.3ML, IM, (PFIZER LOERA TOP BOOSTER) SARS-COV-2 COVID-19 2022-08-19 Completed [facility] 00:00:00 [facility] 12 YRS+, Branch BIVALENT 0.3ML, IM, (PFIZER LOERA TOP BOOSTER) SARS-COV-2 COVID-19 2022-08-19 Completed [facility] 00:00:00 [facility] 12 YRS+, Branch BIVALENT 0.3ML, IM, (PFIZER LOERA TOP BOOSTER) SARS-COV-2 COVID-19 2022-08-19 Completed [facility] 00:00:00 [facility] 12 YRS+, Branch BIVALENT 0.3ML, IM, (PFIZER LOERA TOP BOOSTER) SARS-COV-2 COVID-19 2022-08-19 Completed [facility] 00:00:00 [facility] 12 YRS+, Branch BIVALENT 0.3ML, IM, (PFIZER LOERA TOP BOOSTER) SARS-COV-2 COVID-19 2022-08-19 Completed [facility] 00:00:00 [facility] 12 YRS+, Branch BIVALENT 0.3ML, IM, (PFIZER LOERA TOP BOOSTER) SARS-COV-2 COVID-19 2022-08-19 Completed [facility] 00:00:00 [facility] 12 YRS+, Branch BIVALENT 0.3ML, IM, (PFIZER LOERA TOP BOOSTER) SARS-COV-2 COVID-19 2022-08-19 Completed [facility] 00:00:00 [facility] 12 YRS+, Branch BIVALENT 0.3ML, IM, (PFIZER LOERA TOP BOOSTER) SARS-COV-2 COVID-19 2022-08-19 Completed [facility] 00:00:00 [facility] 12 YRS+, Branch BIVALENT 0.3ML, IM, (PFIZER LOERA TOP BOOSTER) SARS-COV-2 COVID-19 2022-08-19 Completed [facility] 00:00:00 [facility] 12 YRS+, Branch BIVALENT 0.3ML, IM, (PFIZER LOERA TOP BOOSTER) SARS-COV-2 COVID-19 2022-08-19 Completed [facility] 00:00:00 [facility] 12 YRS+, Branch BIVALENT 0.3ML, IM, (PFIZER LOERA TOP BOOSTER) SARS-COV-2 COVID-19 2022-08-19 Completed [facility] 00:00:00 [facility] 12 YRS+, Branch BIVALENT 0.3ML, IM, (PFIZER LOERA TOP BOOSTER) SARS-COV-2 COVID-19 2022-08-19 Completed [facility] 00:00:00 [facility] 12 YRS+, Branch BIVALENT 0.3ML, IM, (PFIZER LOERA TOP BOOSTER) SARS-COV-2 COVID-19 2022-08-19 Completed [facility] 00:00:00 [facility] 12 YRS+, Branch BIVALENT 0.3ML, IM, (PFIZER LOERA TOP BOOSTER) SARS-COV-2 COVID-19 2022-08-19 Completed [facility] 00:00:00 [facility] 12 YRS+, Branch BIVALENT 0.3ML, IM, (PFIZER LOERA TOP BOOSTER) SARS-COV-2 COVID-19 2022-08-19 Completed [facility] 00:00:00 [facility] 12 YRS+, Branch BIVALENT 0.3ML, IM, (PFIZER LOERA TOP BOOSTER) SARS-COV-2 COVID-19 2022-08-19 Completed [facility] 00:00:00 [facility] 12 YRS+, Branch BIVALENT 0.3ML, IM, (PFIZER LOERA TOP BOOSTER) SARS-COV-2 COVID-19 2022-08-19 Completed [facility] 00:00:00 [facility] 12 YRS+, Branch BIVALENT 0.3ML, IM, (PFIZER LOERA TOP BOOSTER) SARS-COV-2 COVID-19 2022-08-19 Completed [facility] 00:00:00 [facility] 12 YRS+, Branch BIVALENT 0.3ML, IM, (PFIZER LOERA TOP BOOSTER) SARS-COV-2 COVID-19 2022-08-19 Completed [facility] 00:00:00 [facility] 12 YRS+, Branch BIVALENT 0.3ML, IM, (PFIZER LOERA TOP BOOSTER) SARS-COV-2 COVID-19 2022-08-19 Completed [facility] 00:00:00 [facility] 12 YRS+, Branch BIVALENT 0.3ML, IM, (PFIZER LOERA TOP BOOSTER) SARS-COV-2 COVID-19 2022-08-19 Completed [facility] 00:00:00 [facility] 12 YRS+, Branch BIVALENT 0.3ML, IM, (PFIZER LOERA TOP BOOSTER) SARS-COV-2 COVID-19 2022-08-19 Completed [facility] 00:00:00 [facility] 12 YRS+, Branch BIVALENT 0.3ML, IM, (PFIZER LOERA TOP BOOSTER) SARS-COV-2 COVID-19 2022-08-19 Completed [facility] 00:00:00 [facility] 12 YRS+, Branch BIVALENT 0.3ML, IM, (PFIZER LOERA TOP BOOSTER) SARS-COV-2 COVID-19 2022-08-19 Completed [facility] 00:00:00 [facility] 12 YRS+, Branch BIVALENT 0.3ML, IM, (PFIZER LOERA TOP BOOSTER) SARS-COV-2 COVID-19 2022-08-19 Completed [facility] 00:00:00 [facility] 12 YRS+, Branch BIVALENT 0.3ML, IM, (PFIZER LOERA TOP BOOSTER) SARS-COV-2 COVID-19 2022-08-19 Completed [facility] 00:00:00 [facility] 12 YRS+, Branch BIVALENT 0.3ML, IM, (PFIZER LOERA TOP BOOSTER) SARS-COV-2 COVID-19 2022-08-19 Completed [facility] 00:00:00 [facility] 12 YRS+, Branch BIVALENT 0.3ML, IM, (PFIZER LOERA TOP BOOSTER) SARS-COV-2 COVID-19 2022-08-19 Completed [facility] 00:00:00 [facility] 12 YRS+, Branch BIVALENT 0.3ML, IM, (PFIZER LOERA TOP BOOSTER) SARS-COV-2 COVID-19 2022-08-19 Completed [facility] 00:00:00 [facility] 12 YRS+, Branch BIVALENT 0.3ML, IM, (PFIZER LOERA TOP BOOSTER) SARS-COV-2 COVID-19 2022-08-19 Completed [facility] 00:00:00 [facility] 12 YRS+, Branch BIVALENT 0.3ML, IM, (PFIZER LOERA TOP BOOSTER) SARS-COV-2 COVID-19 2022-08-19 Completed [facility] 00:00:00 [facility] 12 YRS+, Branch BIVALENT 0.3ML, IM, (PFIZER LOEAR TOP BOOSTER) SARS-COV-2 COVID-19 2022-08-19 Completed [facility] 00:00:00 [facility] 12 YRS+, Branch BIVALENT 0.3ML, IM, (PFIZER LOERA TOP BOOSTER) SARS-COV-2 COVID-19 2022-08-19 Completed [facility] 00:00:00 [facility] 12 YRS+, Branch BIVALENT 0.3ML, IM, (PFIZER LOERA TOP BOOSTER) SARS-COV-2 COVID-19 2022-08-19 Completed [facility] 00:00:00 [facility] 12 YRS+, Branch BIVALENT 0.3ML, IM, (PFIZER LOERA TOP BOOSTER) SARS-COV-2 COVID-19 2022-08-19 Completed [facility] 00:00:00 [facility] 12 YRS+, Branch BIVALENT 0.3ML, IM, (PFIZER LOERA TOP BOOSTER) SARS-COV-2 COVID-19 2022-08-19 Completed [facility] 00:00:00 [facility] 12 YRS+, Branch BIVALENT 0.3ML, IM, (PFIZER LOERA TOP BOOSTER) SARS-COV-2 COVID-19 2022-08-19 Completed [facility] 00:00:00 [facility] 12 YRS+, Branch BIVALENT 0.3ML, IM, (PFIZER LOERA TOP BOOSTER) SARS-COV-2 COVID-19 2022-08-19 Completed [facility] 00:00:00 [facility] 12 YRS+, Branch BIVALENT 0.3ML, IM, (PFIZER LOERA TOP BOOSTER) SARS-COV-2 COVID-19 2022-08-19 Completed [facility] 00:00:00 [facility] 12 YRS+, Branch BIVALENT 0.3ML, IM, (PFIZER LOERA TOP BOOSTER) SARS-COV-2 COVID-19 2022-08-19 Completed [facility] 00:00:00 [facility] 12 YRS+, Branch BIVALENT 0.3ML, IM, (PFIZER LOERA TOP BOOSTER) SARS-COV-2 COVID-19 2022-08-19 Completed [facility] 00:00:00 [facility] 12 YRS+, Branch BIVALENT 0.3ML, IM, (PFIZER LOERA TOP BOOSTER) SARS-COV-2 COVID-19 2022-08-19 Completed [facility] 00:00:00 [facility] 12 YRS+, Branch BIVALENT 0.3ML, IM, (PFIZER LOERA TOP BOOSTER) SARS-COV-2 COVID-19 2022-08-19 Completed [facility] 00:00:00 [facility] 12 YRS+, Branch BIVALENT 0.3ML, IM, (PFIZER LOERA TOP BOOSTER) SARS-COV-2 COVID-19 2022-08-19 Completed [facility] 00:00:00 [facility] 12 YRS+, Branch BIVALENT 0.3ML, IM, (PFIZER LOERA TOP BOOSTER) SARS-COV-2 COVID-19 2022-08-19 Completed [facility] 00:00:00 [facility] 12 YRS+, Branch BIVALENT 0.3ML, IM, (PFIZER LOERA TOP BOOSTER) SARS-COV-2 COVID-19 2022-08-19 Completed [facility] 00:00:00 [facility] 12 YRS+, Branch BIVALENT 0.3ML, IM, (PFIZER LOERA TOP BOOSTER) SARS-COV-2 COVID-19 2022-08-19 Completed [facility] 00:00:00 [facility] 12 YRS+, Branch BIVALENT 0.3ML, IM, (PFIZER LOERA TOP BOOSTER) SARS-COV-2 COVID-19 2022-08-19 Completed [facility] 00:00:00 [facility] 12 YRS+, Branch BIVALENT 0.3ML, IM, (PFIZER LOERA TOP BOOSTER) SARS-COV-2 COVID-19 2022-08-19 Completed [facility] 00:00:00 [facility] 12 YRS+, Branch BIVALENT 0.3ML, IM, (PFIZER LOERA TOP BOOSTER) SARS-COV-2 COVID-19 2022-08-19 Completed [facility] 00:00:00 [facility] 12 YRS+, Branch BIVALENT 0.3ML, IM, (PFIZER LOERA TOP BOOSTER) SARS-COV-2 COVID-19 2022-08-19 Completed [facility] 00:00:00 [facility] 12 YRS+, Branch BIVALENT 0.3ML, IM, (PFIZER LOERA TOP BOOSTER) SARS-COV-2 COVID-19 2022-08-19 Completed [facility] 00:00:00 [facility] 12 YRS+, Branch BIVALENT 0.3ML, IM, (PFIZER LOERA TOP BOOSTER) SARS-COV-2 COVID-19 2022-08-19 Completed [facility] 00:00:00 [facility] 12 YRS+, Branch BIVALENT 0.3ML, IM, (PFIZER LOERA TOP) SARS-COV-2 COVID-19 2022-08-19 Completed [facility] 00:00:00 [facility] 12 YRS+, Branch BIVALENT 0.3ML, IM, (PFIZER LOERA TOP) SARS-COV-2 COVID-19 2022-08-19 Completed [facility] 00:00:00 [facility] 12 YRS+, Branch BIVALENT 0.3ML, IM, (PFIZER LOERA TOP) SARS-COV-2 COVID-19 2022-08-19 Completed [facility] 00:00:00 [facility] 12 YRS+, Branch BIVALENT 0.3ML, IM, (PFIZER LOERA TOP) SARS-COV-2 COVID-19 2022-08-19 Completed [facility] 00:00:00 [facility] 12 YRS+, Branch BIVALENT 0.3ML, IM, (PFIZER LOERA TOP BOOSTER) SARS-COV-2 COVID-19 2022-08-19 Completed [facility] 00:00:00 [facility] 12 YRS+, Branch BIVALENT 0.3ML, IM, (PFIZER LOERA TOP BOOSTER) SARS-COV-2 COVID-19 2022-08-19 Completed [facility] 00:00:00 [facility] 12 YRS+, Branch BIVALENT 0.3ML, IM, (PFIZER LOERA TOP BOOSTER) SARS-COV-2 COVID-19 2022-08-19 Completed [facility] 00:00:00 [facility] 12 YRS+, Branch BIVALENT 0.3ML, IM, (PFIZER LOERA TOP BOOSTER) SARS-COV-2 COVID-19 2022-08-19 Completed [facility] 00:00:00 [facility] 12 YRS+, Branch BIVALENT 0.3ML, IM, (PFIZER LOERA TOP BOOSTER) SARS-COV-2 COVID-19 2022-08-19 Completed [facility]00 [facility] 12 YRS+, Branch BIVALENT 0.3ML, IM, (PFIZER LOERA TOP BOOSTER) SARS-COV-2 COVID-19 2022-08-19 Completed [facility]00 [facility] 12 YRS+, Branch BIVALENT 0.3ML, IM, (PFIZER LOERA TOP BOOSTER) SARS-COV-2 COVID-19 2022-08-19 Completed [facility]00 [facility] 12 YRS+, Branch BIVALENT 0.3ML, IM, (PFIZER LOERA TOP BOOSTER) SARS-COV-2 COVID-19 2022-08-19 Completed [facility]00 [facility] 12 YRS+, Branch BIVALENT 0.3ML, IM, (PFIZER LOERA TOP BOOSTER) SARS-COV-2 COVID-19 2022-08-19 Completed [facility]00 [facility] 12 YRS+, Branch BIVALENT 0.3ML, IM, (PFIZER LOERA TOP BOOSTER) SARS-COV-2 COVID-19 2022-08-19 Completed [facility]00 [facility] 12 YRS+, Branch BIVALENT 0.3ML, IM, (PFIZER LOERA TOP BOOSTER) SARS-COV-2 COVID-19 2022-08-19 Completed [facility]00 [facility] 12 YRS+, Branch BIVALENT 0.3ML, IM, (PFIZER LOERA TOP BOOSTER) SARS-COV-2 COVID-19 2022-08-19 Completed [facility]00 [facility] 12 YRS+, Branch BIVALENT 0.3ML, IM, (PFIZER LOERA TOP BOOSTER) SARS-COV-2 COVID-19 2022-08-19 Completed [facility]00 [facility] 12 YRS+, Branch BIVALENT 0.3ML, IM, (PFIZER LOERA TOP BOOSTER) SARS-COV-2 COVID-19 2022-08-19 Completed [facility]00 [facility] 12 YRS+, Branch BIVALENT 0.3ML, IM, (PFIZER LOERA TOP BOOSTER) SARS-COV-2 COVID-19 2022-08-19 Completed [facility]00 [facility] 12 YRS+, Branch BIVALENT 0.3ML, IM, (PFIZER LOERA TOP BOOSTER) SARS-COV-2 COVID-19 2022-08-19 Completed [facility]00 [facility] 12 YRS+, Branch BIVALENT 0.3ML, IM, (PFIZER LOERA TOP BOOSTER) SARS-COV-2 COVID-19 2022-08-19 Completed [facility]00 [facility] 12 YRS+, Branch BIVALENT 0.3ML, IM, (PFIZER LOERA TOP BOOSTER) SARS-COV-2 COVID-19 2022-08-19 Completed [facility]00 [facility] 12 YRS+, Branch BIVALENT 0.3ML, IM, (PFIZER LOERA TOP BOOSTER) SARS-COV-2 COVID-19 2022-08-19 Completed [facility]00 [facility] 12 YRS+, Branch BIVALENT 0.3ML, IM, (PFIZER LOERA TOP BOOSTER) SARS-COV-2 COVID-19 2022-08-19 Completed [facility]00 [facility] 12 YRS+, Branch BIVALENT 0.3ML, IM, (PFIZER LOERA TOP BOOSTER) SARS-COV-2 COVID-19 2022-08-19 Completed [facility]00 [facility] 12 YRS+, Branch BIVALENT 0.3ML, IM, (PFIZER LOERA TOP BOOSTER) SARS-COV-2 COVID-19 2022-08-19 Completed [facility]00 [facility] 12 YRS+, Branch BIVALENT 0.3ML, IM, (PFIZER LOERA TOP BOOSTER) SARS-COV-2 COVID-19 2022-08-19 Completed [facility]00 [facility] 12 YRS+, Branch BIVALENT 0.3ML, IM, (PFIZER LOERA TOP BOOSTER) SARS-COV-2 COVID-19 2022-08-19 Completed [facility]00 [facility] 12 YRS+, Branch BIVALENT 0.3ML, IM, (PFIZER LOERA TOP BOOSTER) SARS-COV-2 COVID-19 2022-08-19 Completed [facility]00 [facility] 12 YRS+, Branch BIVALENT 0.3ML, IM, (PFIZER LOERA TOP BOOSTER) SARS-COV-2 COVID-19 2022-08-19 Completed [facility]00 [facility] 12 YRS+, [facility] BIVALENT 0.3ML, IM, (PFIZER LOERA TOP BOOSTER) SARS-COV-2 COVID-19 2022-08-19 Completed [facility]00 [facility] 12 YRS+, [facility] BIVALENT 0.3ML, IM, (PFIZER LOERA TOP BOOSTER) SARS-COV-2 COVID-19 2022-08-19 Completed [facility] 00:00:00 [facility] BIVALENT 0.3ML, IM, (PFIZER LOERA TOP BOOSTER) SARS-COV-2 COVID-19 2022-08-19 Completed [facility] [place]00 [facility] 12 Y[facility] BIVALENT 0.3ML, IM, (PFIZER LOERA TOP BOOSTER) SARS-COV-2 COVID-19 2022-08-19 [place]pleted [facility] [place]00 [facility] Y[facility]+, [facility] BIVALENT 0.3ML, IM, (PFIZER LOERA TOP BOOSTER) SARS-COV-2 COVID-19 2022-08-19 Completed [facility] [place]00 [facility] BIVALENT 0.3ML, IM, (PFIZER LOERA TOP BOOSTER) Remdesivir 2022-07-11 Completed [facility] 00:00:00 [facility] Remdesivir 2022-07-11 Completed [facility] 00:00:00 [facility] Remdesivir 2022-07-11 Completed [facility] 00:00:00 [facility] Remdesivir 2022-07-11 Completed [facility] 00:00:00 [facility] Remdesivir 2022-07-11 Completed [facility] 00:00:00 [facility] Remdesivir 2022-07-11 Completed [facility] 00:00:00 [facility] Remdesivir 2022-07-11 Completed [facility] 00:00:00 [facility] Remdesivir 2022-07-11 Completed [facility] 00:00:00 [facility] Remdesivir 2022-07-11 Completed [facility] 00:00:00 [facility] Remdesivir 2022-07-11 Completed [facility] 00:00:00 [facility] Remdesivir 2022-07-11 Completed [facility] 00:00:00 [facility] Remdesivir 2022-07-11 Completed [facility] 00:00:00 [facility] Remdesivir 2022-07-11 Completed [facility] 00:00:00 [facility] Remdesivir 2022-07-11 Completed [facility] 00:00:00 [facility] Remdesivir 2022-07-11 Completed [facility] 00:00:00 [facility] Remdesivir 2022-07-11 Completed [facility] 00:00:00 [facility] Remdesivir 2022-07-11 Completed [facility] 00:00:00 [facility] Remdesivir 2022-07-11 Completed [facility] 00:00:00 [facility] Remdesivir 2022-07-11 Completed [facility] 00:00:00 [facility] Remdesivir 2022-07-11 Completed [facility] 00:00:00 [facility] Remdesivir 2022-07-11 Completed [facility] 00:00:00 [facility] Remdesivir 2022-07-11 Completed [facility] 00:00:00 [facility] Remdesivir 2022-07-11 Completed [facility] 00:00:00 [facility] Remdesivir 2022-07-11 Completed [facility] 00:00:00 [facility] Remdesivir 2022-07-11 Completed [facility] 00:00:00 [facility] Remdesivir 2022-07-11 Completed [facility] 00:00:00 [facility] Remdesivir 2022-07-11 Completed [facility] 00:00:00 [facility] Remdesivir 2022-07-11 Completed [facility] 00:00:00 [facility] Remdesivir 2022-07-11 Completed [facility] 00:00:00 [facility] Remdesivir 2022-07-11 Completed [facility] 00:00:00 [facility] Remdesivir 2022-07-11 Completed [facility] 00:00:00 [facility] Remdesivir 2022-07-11 Completed [facility] 00:00:00 [facility] Remdesivir 2022-07-11 Completed [facility] 00:00:00 [facility] Remdesivir 2022-07-11 Completed [facility] 00:00:00 [facility] Remdesivir 2022-07-11 Completed [facility] 00:00:00 [facility] Remdesivir 2022-07-11 Completed [facility] 00:00:00 [facility] Remdesivir 2022-07-11 Completed [facility] 00:00:00 [facility] Remdesivir 2022-07-11 Completed [facility] 00:00:00 [facility] Remdesivir 2022-07-11 Completed [facility] 00:00:00 [facility] Remdesivir 2022-07-11 Completed [facility] 00:00:00 [facility] Remdesivir 2022-07-11 Completed [facility] 00:00:00 [facility] Remdesivir 2022-07-11 Completed [facility] 00:00:00 [facility] Remdesivir 2022-07-11 Completed [facility] 00:00:00 [facility] Remdesivir 2022-07-11 Completed [facility] 00:00:00 [facility] Remdesivir 2022-07-11 Completed [facility] 00:00:00 [facility] Remdesivir 2022-07-11 Completed [facility] 00:00:00 [facility] Remdesivir 2022-07-11 Completed [facility] 00:00:00 [facility] Remdesivir 2022-07-11 Completed [facility] 00:00:00 [facility] Remdesivir 2022-07-11 Completed [facility] 00:00:00 [facility] Remdesivir 2022-07-11 Completed [facility] 00:00:00 [facility] Remdesivir 2022-07-11 Completed [facility] 00:00:00 [facility] Remdesivir 2022-07-11 Completed [facility] 00:00:00 [facility] Remdesivir 2022-07-11 Completed [facility] 00:00:00 [facility] Remdesivir 2022-07-11 Completed [facility] 00:00:00 [facility] Remdesivir 2022-07-11 Completed [facility] 00:00:00 [facility] Remdesivir 2022-07-11 Completed [facility] 00:00:00 [facility] Remdesivir 2022-07-11 Completed [facility] 00:00:00 [facility] Remdesivir 2022-07-11 Completed [facility] 00:00:00 [facility] Remdesivir 2022-07-11 Completed [facility] 00:00:00 [facility] Remdesivir 2022-07-11 Completed [facility] 00:00:00 [facility] Remdesivir 2022-07-11 Completed [facility] 00:00:00 [facility] Remdesivir 2022-07-11 Completed [facility] 00:00:00 [facility] Remdesivir 2022-07-11 Completed [facility] 00:00:00 [facility] Remdesivir 2022-07-11 Completed [facility] 00:00:00 [facility] Remdesivir 2022-07-11 Completed [facility] 00:00:00 [facility] Remdesivir 2022-07-11 Completed [facility] 00:00:00 [facility] Remdesivir 2022-07-11 Completed [facility] 00:00:00 [facility] Remdesivir 2022-07-11 Completed [facility] 00:00:00 [facility] Remdesivir 2022-07-11 Completed [facility] 00:00:00 [facility] Remdesivir 2022-07-11 Completed [facility] 00:00:00 [facility] Remdesivir 2022-07-11 Completed [facility] 00:00:00 [facility] Remdesivir 2022-07-11 Completed [facility] 00:00:00 [facility] Remdesivir 2022-07-11 Completed [facility] 00:00:00 [facility] Remdesivir 2022-07-11 Completed [facility] 00:00:00 [facility] Remdesivir 2022-07-11 Completed [facility] 00:00:00 [facility] Remdesivir 2022-07-11 Completed [facility] 00:00:00 [facility] Remdesivir 2022-07-11 Completed [facility] 00:00:00 [facility] Remdesivir 2022-07-11 Completed [facility] 00:00:00 [facility] Remdesivir 2022-07-11 Completed [facility] 00:00:00 [facility] Remdesivir 2022-07-11 Completed [facility] 00:00:00 [facility] Remdesivir 2022-07-11 Completed [facility] 00:00:00 [facility] Remdesivir 2022-07-11 Completed [facility] 00:00:00 [facility] Remdesivir 2022-07-11 Completed [facility] 00:00:00 [facility] Remdesivir 2022-07-11 Completed [facility] 00:00:00 [facility] Remdesivir 2022-07-11 Completed [facility] 00:00:00 [facility] Remdesivir 2022-07-11 Completed [facility] 00:00:00 [facility] Remdesivir 2022-07-11 Completed [facility] 00:00:00 [facility] Remdesivir 2022-07-11 Completed [facility] 00:00:00 [facility] Remdesivir 2022-07-11 Completed [facility] 00:00:00 [facility] Remdesivir 2022-07-11 Completed [facility] 00:00:00 [facility] Remdesivir 2022-07-11 Completed [facility] 00:00:00 [facility] Remdesivir 2022-07-11 Completed [facility] 00:00:00 [facility] Remdesivir 2022-07-11 Completed [facility] 00:00:00 [facility] Remdesivir 2022-07-11 Completed [facility] 00:00:00 [facility] Remdesivir 2022-07-11 Completed [facility] 00:00:00 [facility] Remdesivir 2022-07-11 Completed [facility] 00:00:00 [facility] Remdesivir 2022-07-11 Completed [facility] 00:00:00 [facility] Remdesivir 2022-07-11 Completed [facility] 00:00:00 [facility] Remdesivir 2022-07-11 Completed [facility] 00:00:00 [facility] Remdesivir 2022-07-11 Completed [facility] 00:00:00 [facility] Remdesivir 2022-07-11 Completed [facility] 00:00:00 [facility] Remdesivir 2022-07-11 Completed [facility] 00:00:00 [facility] Remdesivir 2022-07-11 Completed [facility] 00:00:00 [facility] Remdesivir 2022-07-11 Completed [facility] 00:00:00 [facility] Remdesivir 2022-07-11 Completed [facility] 00:00:00 [facility] Remdesivir 2022-07-11 Completed [facility] 00:00:00 [facility] Remdesivir 2022-07-11 Completed [facility] 00:00:00 [facility] Remdesivir 2022-07-11 Completed [facility] 00:00:00 [facility] Remdesivir 2022-07-11 Completed [facility] 00:00:00 [facility] Remdesivir 2022-07-11 Completed [facility] 00:00:00 [facility] Remdesivir 2022-07-11 Completed [facility] 00:00:00 [facility] Remdesivir 2022-07-11 Completed [facility] 00:00:00 [facility] Remdesivir 2022-07-11 Completed [facility] 00:00:00 [facility] Remdesivir 2022-07-11 Completed [facility] 00:00:00 [facility] Remdesivir 2022-07-11 Completed [facility] 00:00:00 [facility] Remdesivir 2022-07-11 Completed [facility] 00:00:00 [facility] Remdesivir 2022-07-11 Completed [facility] 00:00:00 [facility] Remdesivir 2022-07-11 Completed [facility] 00:00:00 [facility] Remdesivir 2022-07-11 Completed [facility] 00:00:00 [facility] Remdesivir 2022-07-11 Completed [facility] 00:00:00 [facility] Remdesivir 2022-07-11 Completed [facility] 00:00:00 [facility] Remdesivir 2022-07-11 Completed [facility] 00:00:00 [facility] Remdesivir 2022-07-11 Completed [facility] 00:00:00 [facility] Remdesivir 2022-07-11 Completed [facility] 00:00:00 [facility] Remdesivir 2022-07-11 Completed [facility] 00:00:00 [facility] Remdesivir 2022-07-11 Completed [facility] 00:00:00 [facility] Remdesivir 2022-07-11 Completed [facility] 00:00:00 [facility] Remdesivir 2022-07-11 Completed [facility] 00:00:00 [facility] Remdesivir 2022-07-11 Completed [facility] 00:00:00 [facility] Remdesivir 2022-07-11 Completed [facility] 00:00:00 [facility] Remdesivir 2022-07-11 Completed [facility] 00:00:00 [facility] Remdesivir 2022-07-11 Completed [facility] 00:00:00 [facility] Remdesivir 2022-07-11 Completed [facility] 00:00:00 [facility] Remdesivir 2022-07-11 Completed [facility] 00:00:00 [facility] Remdesivir 2022-07-11 Completed [facility] 00:00:00 [facility] Remdesivir 2022-07-11 Completed [facility] 00:00:00 [facility] Remdesivir 2022-07-11 Completed [facility] 00:00:00 [facility] Remdesivir 2022-07-11 Completed [facility] 00:00:00 [facility] Remdesivir 2022-07-11 Completed [facility] 00:00:00 [facility] Remdesivir 2022-07-11 Completed [facility] 00:00:00 [facility] Remdesivir 2022-07-11 Completed [facility] 00:00:00 [facility] Remdesivir 2022-07-11 Completed [facility] 00:00:00 [facility] Remdesivir 2022-07-11 Completed [facility] 00:00:00 [facility] Remdesivir 2022-07-10 Completed [facility] 00:00:00 [facility] Remdesivir 2022-07-10 Completed [facility] 00:00:00 [facility] Remdesivir 2022-07-10 Completed [facility] 00:00:00 [facility] Remdesivir 2022-07-10 Completed [facility] 00:00:00 [facility] Remdesivir 2022-07-10 Completed [facility] 00:00:00 [facility] Remdesivir 2022-07-10 Completed [facility] 00:00:00 [facility] Remdesivir 2022-07-10 Completed [facility] 00:00:00 [facility] Remdesivir 2022-07-10 Completed [facility] 00:00:00 [facility] Remdesivir 2022-07-10 Completed [facility] 00:00:00 [facility] Remdesivir 2022-07-10 Completed [facility] 00:00:00 [facility] Remdesivir 2022-07-10 Completed [facility] 00:00:00 [facility] Remdesivir 2022-07-10 Completed [facility] 00:00:00 [facility] Remdesivir 2022-07-10 Completed [facility] 00:00:00 [facility] Remdesivir 2022-07-10 Completed [facility] 00:00:00 [facility] Remdesivir 2022-07-10 Completed [facility] 00:00:00 [facility] Remdesivir 2022-07-10 Completed [facility] 00:00:00 [facility] Remdesivir 2022-07-10 Completed [facility] 00:00:00 [facility] Remdesivir 2022-07-10 Completed [facility] 00:00:00 [facility] Remdesivir 2022-07-10 Completed [facility] 00:00:00 [facility] Remdesivir 2022-07-10 Completed [facility] 00:00:00 [facility] Remdesivir 2022-07-10 Completed [facility] 00:00:00 [facility] Remdesivir 2022-07-10 Completed [facility] 00:00:00 [facility] Remdesivir 2022-07-10 Completed [facility] 00:00:00 [facility] Remdesivir 2022-07-10 Completed [facility] 00:00:00 [facility] Remdesivir 2022-07-10 Completed [facility] 00:00:00 [facility] Remdesivir 2022-07-10 Completed [facility] 00:00:00 [facility] Remdesivir 2022-07-10 Completed [facility] 00:00:00 [facility] Remdesivir 2022-07-10 Completed [facility] 00:00:00 [facility] Remdesivir 2022-07-10 Completed [facility] 00:00:00 [facility] Remdesivir 2022-07-10 Completed [facility] 00:00:00 [facility] Remdesivir 2022-07-10 Completed [facility] 00:00:00 [facility] Remdesivir 2022-07-10 Completed [facility] 00:00:00 [facility] Remdesivir 2022-07-10 Completed [facility] 00:00:00 [facility] Remdesivir 2022-07-10 Completed [facility] 00:00:00 [facility] Remdesivir 2022-07-10 Completed [facility] 00:00:00 [facility] Remdesivir 2022-07-10 Completed [facility] 00:00:00 [facility] Remdesivir 2022-07-10 Completed [facility] 00:00:00 [facility] Remdesivir 2022-07-10 Completed [facility] 00:00:00 [facility] Remdesivir 2022-07-10 Completed [facility] 00:00:00 [facility] Remdesivir 2022-07-10 Completed [facility] 00:00:00 [facility] Remdesivir 2022-07-10 Completed [facility] 00:00:00 [facility] Remdesivir 2022-07-10 Completed [facility] 00:00:00 [facility] Remdesivir 2022-07-10 Completed [facility] 00:00:00 [facility] Remdesivir 2022-07-10 Completed [facility] 00:00:00 [facility] Remdesivir 2022-07-10 Completed [facility] 00:00:00 [facility] Remdesivir 2022-07-10 Completed [facility] 00:00:00 [facility] Remdesivir 2022-07-10 Completed [facility] 00:00:00 [facility] Remdesivir 2022-07-10 Completed [facility] 00:00:00 [facility] Remdesivir 2022-07-10 Completed [facility] 00:00:00 [facility] Remdesivir 2022-07-10 Completed [facility] 00:00:00 [facility] Remdesivir 2022-07-10 Completed [facility] 00:00:00 [facility] Remdesivir 2022-07-10 Completed [facility] 00:00:00 [facility] Remdesivir 2022-07-10 Completed [facility] 00:00:00 [facility] Remdesivir 2022-07-10 Completed [facility] 00:00:00 [facility] Remdesivir 2022-07-10 Completed [facility] 00:00:00 [facility] Remdesivir 2022-07-10 Completed [facility] 00:00:00 [facility] Remdesivir 2022-07-10 Completed [facility] 00:00:00 [facility] Remdesivir 2022-07-10 Completed [facility] 00:00:00 [facility] Remdesivir 2022-07-10 Completed [facility] 00:00:00 [facility] Remdesivir 2022-07-10 Completed [facility] 00:00:00 [facility] Remdesivir 2022-07-10 Completed [facility] 00:00:00 [facility] Remdesivir 2022-07-10 Completed [facility] 00:00:00 [facility] Remdesivir 2022-07-10 Completed [facility] 00:00:00 [facility] Remdesivir 2022-07-10 Completed [facility] 00:00:00 [facility] Remdesivir 2022-07-10 Completed [facility] 00:00:00 [facility] Remdesivir 2022-07-10 Completed [facility] 00:00:00 [facility] Remdesivir 2022-07-10 Completed [facility] 00:00:00 [facility] Remdesivir 2022-07-10 Completed [facility] 00:00:00 [facility] Remdesivir 2022-07-10 Completed [facility] 00:00:00 [facility] Remdesivir 2022-07-10 Completed [facility] 00:00:00 [facility] Remdesivir 2022-07-10 Completed [facility] 00:00:00 [facility] Remdesivir 2022-07-10 Completed [facility] 00:00:00 [facility] Remdesivir 2022-07-10 Completed [facility] 00:00:00 [facility] Remdesivir 2022-07-10 Completed [facility] 00:00:00 [facility] Remdesivir 2022-07-10 Completed [facility] 00:00:00 [facility] Remdesivir 2022-07-10 Completed [facility] 00:00:00 [facility] Remdesivir 2022-07-10 Completed [facility] 00:00:00 [facility] Remdesivir 2022-07-10 Completed [facility] 00:00:00 [facility] Remdesivir 2022-07-10 Completed [facility] 00:00:00 [facility] Remdesivir 2022-07-10 Completed [facility] 00:00:00 [facility] Remdesivir 2022-07-10 Completed [facility] 00:00:00 [facility] Remdesivir 2022-07-10 Completed [facility] 00:00:00 [facility] Remdesivir 2022-07-10 Completed [facility] 00:00:00 [facility] Remdesivir 2022-07-10 Completed [facility] 00:00:00 [facility] Remdesivir 2022-07-10 Completed [facility] 00:00:00 [facility] Remdesivir 2022-07-10 Completed [facility] 00:00:00 [facility] Remdesivir 2022-07-10 Completed [facility] 00:00:00 [facility] Remdesivir 2022-07-10 Completed [facility] 00:00:00 [facility] Remdesivir 2022-07-10 Completed [facility] 00:00:00 [facility] Remdesivir 2022-07-10 Completed [facility] 00:00:00 [facility] Remdesivir 2022-07-10 Completed [facility] 00:00:00 [facility] Remdesivir 2022-07-10 Completed [facility] 00:00:00 [facility] Remdesivir 2022-07-10 Completed [facility] 00:00:00 [facility] Remdesivir 2022-07-10 Completed [facility] 00:00:00 [facility] Remdesivir 2022-07-10 Completed [facility] 00:00:00 [facility] Remdesivir 2022-07-10 Completed [facility] 00:00:00 [facility] Remdesivir 2022-07-10 Completed [facility] 00:00:00 [facility] Remdesivir 2022-07-10 Completed [facility] 00:00:00 [facility] Remdesivir 2022-07-10 Completed [facility] 00:00:00 [facility] Remdesivir 2022-07-10 Completed [facility] 00:00:00 [facility] Remdesivir 2022-07-10 Completed [facility] 00:00:00 [facility] Remdesivir 2022-07-10 Completed [facility] 00:00:00 [facility] Remdesivir 2022-07-10 Completed [facility] 00:00:00 [facility] Remdesivir 2022-07-10 Completed [facility] 00:00:00 [facility] Remdesivir 2022-07-10 Completed [facility] 00:00:00 [facility] Remdesivir 2022-07-10 Completed [facility] 00:00:00 [facility] Remdesivir 2022-07-10 Completed [facility] 00:00:00 [facility] Remdesivir 2022-07-10 Completed [facility] 00:00:00 [facility] Remdesivir 2022-07-10 Completed [facility] 00:00:00 [facility] Remdesivir 2022-07-10 Completed [facility] 00:00:00 [facility] Remdesivir 2022-07-10 Completed [facility] 00:00:00 [facility] Remdesivir 2022-07-10 Completed [facility] 00:00:00 [facility] Remdesivir 2022-07-10 Completed [facility] 00:00:00 [facility] Remdesivir 2022-07-10 Completed [facility] 00:00:00 [facility] Remdesivir 2022-07-10 Completed [facility] 00:00:00 [facility] Remdesivir 2022-07-10 Completed [facility] 00:00:00 [facility] Remdesivir 2022-07-10 Completed [facility] 00:00:00 [facility] Remdesivir 2022-07-10 Completed [facility] 00:00:00 [facility] Remdesivir 2022-07-10 Completed [facility] 00:00:00 [facility] Remdesivir 2022-07-10 Completed [facility] 00:00:00 [facility] Remdesivir 2022-07-10 Completed [facility] 00:00:00 [facility] Remdesivir 2022-07-10 Completed [facility] 00:00:00 [facility] Remdesivir 2022-07-10 Completed [facility] 00:00:00 [facility] Remdesivir 2022-07-10 Completed [facility] 00:00:00 [facility] Remdesivir 2022-07-10 Completed [facility] 00:00:00 [facility] Remdesivir 2022-07-10 Completed [facility] 00:00:00 [facility] Remdesivir 2022-07-10 Completed [facility] 00:00:00 [facility] Remdesivir 2022-07-10 Completed [facility] 00:00:00 [facility] Remdesivir 2022-07-10 Completed [facility] 00:00:00 [facility] Remdesivir 2022-07-10 Completed [facility] 00:00:00 [facility] Remdesivir 2022-07-10 Completed [facility] 00:00:00 [facility] Remdesivir 2022-07-10 Completed [facility] 00:00:00 [facility] Remdesivir 2022-07-10 Completed [facility] 00:00:00 [facility] Remdesivir 2022-07-10 Completed [facility] 00:00:00 [facility] Remdesivir 2022-07-10 Completed [facility] 00:00:00 [facility] Remdesivir 2022-07-10 Completed [facility] 00:00:00 [facility] Remdesivir 2022-07-10 Completed [facility] 00:00:00 [facility] Remdesivir 2022-07-10 Completed [facility] 00:00:00 [facility] Remdesivir 2022-07-10 Completed [facility] 00:00:00 [facility] Remdesivir 2022-07-10 Completed [facility] 00:00:00 [facility] Remdesivir 2022-07-10 Completed [facility] 00:00:00 [facility] Remdesivir 2022-07-10 Completed [facility] 00:00:00 [facility] Remdesivir 2022-07-10 Completed [facility] 00:00:00 [facility] Remdesivir 2022-07-09 Completed [facility] 00:00:00 [facility] Remdesivir 2022-07-09 Completed [facility] 00:00:00 [facility] Remdesivir 2022-07-09 Completed [facility] 00:00:00 [facility] Remdesivir 2022-07-09 Completed [facility] 00:00:00 [facility] Remdesivir 2022-07-09 Completed [facility] 00:00:00 [facility] Remdesivir 2022-07-09 Completed [facility] 00:00:00 [facility] Remdesivir 2022-07-09 Completed [facility] 00:00:00 [facility] Remdesivir 2022-07-09 Completed [facility] 00:00:00 [facility] Remdesivir 2022-07-09 Completed [facility] 00:00:00 [facility] Remdesivir 2022-07-09 Completed [facility] 00:00:00 [facility] Remdesivir 2022-07-09 Completed [facility] 00:00:00 [facility] Remdesivir 2022-07-09 Completed [facility] 00:00:00 [facility] Remdesivir 2022-07-09 Completed [facility] 00:00:00 [facility] Remdesivir 2022-07-09 Completed [facility] 00:00:00 [facility] Remdesivir 2022-07-09 Completed [facility] 00:00:00 [facility] Remdesivir 2022-07-09 Completed [facility] 00:00:00 [facility] Remdesivir 2022-07-09 Completed [facility] 00:00:00 [facility] Remdesivir 2022-07-09 Completed [facility] 00:00:00 [facility] Remdesivir 2022-07-09 Completed [facility] 00:00:00 [facility] Remdesivir 2022-07-09 Completed [facility] 00:00:00 [facility] Remdesivir 2022-07-09 Completed [facility] 00:00:00 [facility] Remdesivir 2022-07-09 Completed [facility] 00:00:00 [facility] Remdesivir 2022-07-09 Completed [facility] 00:00:00 [facility] Remdesivir 2022-07-09 Completed [facility] 00:00:00 [facility] Remdesivir 2022-07-09 Completed [facility] 00:00:00 [facility] Remdesivir 2022-07-09 Completed [facility] 00:00:00 [facility] Remdesivir 2022-07-09 Completed [facility] 00:00:00 [facility] Remdesivir 2022-07-09 Completed [facility] 00:00:00 [facility] Remdesivir 2022-07-09 Completed [facility] 00:00:00 [facility] Remdesivir 2022-07-09 Completed [facility] 00:00:00 [facility] Remdesivir 2022-07-09 Completed [facility] 00:00:00 [facility] Remdesivir 2022-07-09 Completed [facility] 00:00:00 [facility] Remdesivir 2022-07-09 Completed [facility] 00:00:00 [facility] Remdesivir 2022-07-09 Completed [facility] 00:00:00 [facility] Remdesivir 2022-07-09 Completed [facility] 00:00:00 [facility] Remdesivir 2022-07-09 Completed [facility] 00:00:00 [facility] Remdesivir 2022-07-09 Completed [facility] 00:00:00 [facility] Remdesivir 2022-07-09 Completed [facility] 00:00:00 [facility] Remdesivir 2022-07-09 Completed [facility] 00:00:00 [facility] Remdesivir 2022-07-09 Completed [facility] 00:00:00 [facility] Remdesivir 2022-07-09 Completed [facility] 00:00:00 [facility] Remdesivir 2022-07-09 Completed [facility] 00:00:00 [facility] Remdesivir 2022-07-09 Completed [facility] 00:00:00 [facility] Remdesivir 2022-07-09 Completed [facility] 00:00:00 [facility] Remdesivir 2022-07-09 Completed [facility] 00:00:00 [facility] Remdesivir 2022-07-09 Completed [facility] 00:00:00 [facility] Remdesivir 2022-07-09 Completed [facility] 00:00:00 [facility] Remdesivir 2022-07-09 Completed [facility] 00:00:00 [facility] Remdesivir 2022-07-09 Completed [facility] 00:00:00 [facility] Remdesivir 2022-07-09 Completed [facility] 00:00:00 [facility] Remdesivir 2022-07-09 Completed [facility] 00:00:00 [facility] Remdesivir 2022-07-09 Completed [facility] 00:00:00 [facility] Remdesivir 2022-07-09 Completed [facility] 00:00:00 [facility] Remdesivir 2022-07-09 Completed [facility] 00:00:00 [facility] Remdesivir 2022-07-09 Completed [facility] 00:00:00 [facility] Remdesivir 2022-07-09 Completed [facility] 00:00:00 [facility] Remdesivir 2022-07-09 Completed [facility] 00:00:00 [facility] Remdesivir 2022-07-09 Completed [facility] 00:00:00 [facility] Remdesivir 2022-07-09 Completed [facility] 00:00:00 [facility] Remdesivir 2022-07-09 Completed [facility] 00:00:00 [facility] Remdesivir 2022-07-09 Completed [facility] 00:00:00 [facility] Remdesivir 2022-07-09 Completed [facility] 00:00:00 [facility] Remdesivir 2022-07-09 Completed [facility] 00:00:00 [facility] Remdesivir 2022-07-09 Completed [facility] 00:00:00 [facility] Remdesivir 2022-07-09 Completed [facility] 00:00:00 [facility] Remdesivir 2022-07-09 Completed [facility] 00:00:00 [facility] Remdesivir 2022-07-09 Completed [facility] 00:00:00 [facility] Remdesivir 2022-07-09 Completed [facility] 00:00:00 [facility] Remdesivir 2022-07-09 Completed [facility] 00:00:00 [facility] Remdesivir 2022-07-09 Completed [facility] 00:00:00 [facility] Remdesivir 2022-07-09 Completed [facility] 00:00:00 [facility] Remdesivir 2022-07-09 Completed [facility] 00:00:00 [facility] Remdesivir 2022-07-09 Completed [facility] 00:00:00 [facility] Remdesivir 2022-07-09 Completed [facility] 00:00:00 [facility] Remdesivir 2022-07-09 Completed [facility] 00:00:00 [facility] Remdesivir 2022-07-09 Completed [facility] 00:00:00 [facility] Remdesivir 2022-07-09 Completed [facility] 00:00:00 [facility] Remdesivir 2022-07-09 Completed [facility] 00:00:00 [facility] Remdesivir 2022-07-09 Completed [facility] 00:00:00 [facility] Remdesivir 2022-07-09 Completed [facility] 00:00:00 [facility] Remdesivir 2022-07-09 Completed [facility] 00:00:00 [facility] Remdesivir 2022-07-09 Completed [facility] 00:00:00 [facility] Remdesivir 2022-07-09 Completed [facility] 00:00:00 [facility] Remdesivir 2022-07-09 Completed [facility] 00:00:00 [facility] Remdesivir 2022-07-09 Completed [facility] 00:00:00 [facility] Remdesivir 2022-07-09 Completed [facility] 00:00:00 [facility] Remdesivir 2022-07-09 Completed [facility] 00:00:00 [facility] Remdesivir 2022-07-09 Completed [facility] 00:00:00 [facility] Remdesivir 2022-07-09 Completed [facility] 00:00:00 [facility] Remdesivir 2022-07-09 Completed [facility] 00:00:00 [facility] Remdesivir 2022-07-09 Completed [facility] 00:00:00 [facility] Remdesivir 2022-07-09 Completed [facility] 00:00:00 [facility] Remdesivir 2022-07-09 Completed [facility] 00:00:00 [facility] Remdesivir 2022-07-09 Completed [facility] 00:00:00 [facility] Remdesivir 2022-07-09 Completed [facility] 00:00:00 [facility] Remdesivir 2022-07-09 Completed [facility] 00:00:00 [facility] Remdesivir 2022-07-09 Completed [facility] 00:00:00 [facility] Remdesivir 2022-07-09 Completed [facility] 00:00:00 [facility] Remdesivir 2022-07-09 Completed [facility] 00:00:00 [facility] Remdesivir 2022-07-09 Completed [facility] 00:00:00 [facility] Remdesivir 2022-07-09 Completed [facility] 00:00:00 [facility] Remdesivir 2022-07-09 Completed [facility] 00:00:00 [facility] Remdesivir 2022-07-09 Completed [facility] 00:00:00 [facility] Remdesivir 2022-07-09 Completed [facility] 00:00:00 [facility] Remdesivir 2022-07-09 Completed [facility] 00:00:00 [facility] Remdesivir 2022-07-09 Completed [facility] 00:00:00 [facility] Remdesivir 2022-07-09 Completed [facility] 00:00:00 [facility] Remdesivir 2022-07-09 Completed [facility] 00:00:00 [facility] Remdesivir 2022-07-09 Completed [facility] 00:00:00 [facility] Remdesivir 2022-07-09 Completed [facility] 00:00:00 [facility] Remdesivir 2022-07-09 Completed [facility] 00:00:00 [facility] Remdesivir 2022-07-09 Completed [facility] 00:00:00 [facility] Remdesivir 2022-07-09 Completed [facility] 00:00:00 [facility] Remdesivir 2022-07-09 Completed [facility] 00:00:00 [facility] Remdesivir 2022-07-09 Completed [facility] 00:00:00 [facility] Remdesivir 2022-07-09 Completed [facility] 00:00:00 [facility] Remdesivir 2022-07-09 Completed [facility] 00:00:00 [facility] Remdesivir 2022-07-09 Completed [facility] 00:00:00 [facility] Remdesivir 2022-07-09 Completed [facility] 00:00:00 [facility] Remdesivir 2022-07-09 Completed [facility] 00:00:00 [facility] Remdesivir 2022-07-09 Completed [facility] 00:00:00 [facility] Remdesivir 2022-07-09 Completed [facility] 00:00:00 [facility] Remdesivir 2022-07-09 Completed [facility] 00:00:00 [facility] Remdesivir 2022-07-09 Completed [facility] 00:00:00 [facility] Remdesivir 2022-07-09 Completed [facility] 00:00:00 [facility] Remdesivir 2022-07-09 Completed [facility] 00:00:00 [facility] Remdesivir 2022-07-09 Completed [facility] 00:00:00 [facility] Remdesivir 2022-07-09 Completed [facility] 00:00:00 [facility] Remdesivir 2022-07-09 Completed [facility] 00:00:00 [facility] Remdesivir 2022-07-09 Completed [facility] 00:00:00 [facility] Remdesivir 2022-07-09 Completed [facility] 00:00:00 [facility] Remdesivir 2022-07-09 Completed [facility] 00:00:00 [facility] Remdesivir 2022-07-09 Completed [facility] 00:00:00 [facility] Remdesivir 2022-07-09 Completed [facility] 00:00:00 [facility] Remdesivir 2022-07-09 Completed [facility] 00:00:00 [facility] Remdesivir 2022-07-09 Completed [facility] 00:00:00 [facility] Remdesivir 2022-07-09 Completed [facility] 00:00:00 [facility] Remdesivir 2022-07-09 Completed [facility] 00:00:00 [facility] Remdesivir 2022-07-09 Completed [facility] 00:00:00 [facility] Remdesivir 2022-07-09 Completed [facility] 00:00:00 [facility] Remdesivir 2022-07-09 Completed [facility] 00:00:00 [facility] Remdesivir 2022-07-09 Completed [facility] 00:00:00 [facility] Remdesivir 2022-07-09 Completed [facility] 00:00:00 [facility] Influenza Virus 2021-08-17 Completed [facility] Vaccine,quad 00:00:00 [facility]+ Influenza Virus 2021-08-17 Completed [facility] Vaccine,quad 00:00:00 [facility] 65+ Influenza Virus 2021-08-17 Completed [facility] Vaccine,quad 00:00:00 [facility] 65+ Influenza Virus 2021-08-17 Completed [facility] Vaccine,quad 00:00:00 [facility] 65+ Influenza Virus 2021-08-17 Completed [facility] Vaccine,quad 00:00:00 [facility] 65+ Influenza Virus 2021-08-17 Completed [facility] Vaccine,quad 00:00:00 [facility] 65+ Influenza Virus 2021-08-17 Completed [facility] Vaccine,quad 00:00:00 [facility] 65+ Influenza Virus 2021-08-17 Completed [facility] Vaccine,quad 00:00:00 [facility] 65+ Influenza Virus 2021-08-17 Completed [facility] Vaccine,quad 00:00:00 [facility] 65+ Influenza Virus 2021-08-17 Completed [facility] Vaccine,quad 00:00:00 [facility] 65+ Influenza Virus 2021-08-17 Completed [facility] Vaccine,quad 00:00:00 [facility] 65+ Influenza Virus 2021-08-17 Completed [facility] Vaccine,quad 00:00:00 [facility] 65+ Influenza Virus 2021-08-17 Completed [facility] Vaccine,quad 00:00:00 [facility] 65+ Influenza Virus 2021-08-17 Completed [facility] Vaccine,quad 00:00:00 [facility] 65+ Influenza Virus 2021-08-17 Completed [facility] Vaccine,quad 00:00:00 [facility] 65+ Influenza Virus 2021-08-17 Completed [facility] Vaccine,quad 00:00:00 [facility] 65+ Influenza Virus 2021-08-17 Completed [facility] Vaccine,quad 00:00:00 [facility] 65+ Influenza Virus 2021-08-17 Completed [facility] Vaccine,quad 00:00:00 [facility] 65+ Influenza Virus 2021-08-17 Completed [facility] Vaccine,quad 00:00:00 [facility] 65+ Influenza Virus 2021-08-17 Completed [facility] Vaccine,quad 00:00:00 [facility] 65+ Influenza Virus 2021-08-17 Completed [facility] Vaccine,quad 00:00:00 [facility] 65+ Influenza Virus 2021-08-17 Completed [facility] Vaccine,quad 00:00:00 [facility] 65+ Influenza Virus 2021-08-17 Completed [facility] Vaccine,quad 00:00:00 [facility] 65+ Influenza Virus 2021-08-17 Completed [facility] Vaccine,quad 00:00:00 [facility] 65+ Influenza Virus 2021-08-17 Completed [facility] Vaccine,quad 00:00:00 [facility] 65+ Influenza Virus 2021-08-17 Completed [facility] Vaccine,quad 00:00:00 [facility] 65+ Influenza Virus 2021-08-17 Completed [facility] Vaccine,quad 00:00:00 [facility] 65+ Influenza Virus 2021-08-17 Completed [facility] Vaccine,quad 00:00:00 [facility] 65+ Influenza Virus 2021-08-17 Completed [facility] Vaccine,quad 00:00:00 [facility] 65+ Influenza Virus 2021-08-17 Completed [facility] Vaccine,quad 00:00:00 [facility] 65+ Influenza Virus 2021-08-17 Completed [facility] Vaccine,quad 00:00:00 [facility] 65+ Influenza Virus 2021-08-17 Completed [facility] Vaccine,quad 00:00:00 [facility] 65+ Influenza Virus 2021-08-17 Completed [facility] Vaccine,quad 00:00:00 [facility] 65+ Influenza Virus 2021-08-17 Completed [facility] Vaccine,quad 00:00:00 [facility] 65+ Influenza Virus 2021-08-17 Completed [facility] Vaccine,quad 00:00:00 [facility] 65+ Influenza Virus 2021-08-17 Completed [facility] Vaccine,quad 00:00:00 [facility] 65+ Influenza Virus 2021-08-17 Completed [facility] Vaccine,quad 00:00:00 [facility] 65+ Influenza Virus 2021-08-17 Completed [facility] Vaccine,quad 00:00:00 [facility] 65+ Influenza Virus 2021-08-17 Completed [facility] Vaccine,quad 00:00:00 [facility] 65+ Influenza Virus 2021-08-17 Completed [facility] Vaccine,quad 00:00:00 [facility] 65+ Influenza Virus 2021-08-17 Completed [facility] Vaccine,quad 00:00:00 [facility] 65+ Influenza Virus 2021-08-17 Completed [facility] Vaccine,quad 00:00:00 [facility] 65+ Influenza Virus 2021-08-17 Completed [facility] Vaccine,quad 00:00:00 [facility] 65+ Influenza Virus 2021-08-17 Completed [facility] Vaccine,quad 00:00:00 [facility] 65+ Influenza Virus 2021-08-17 Completed [facility] Vaccine,quad 00:00:00 [facility] 65+ Influenza Virus 2021-08-17 Completed [facility] Vaccine,quad 00:00:00 [facility] 65+ Influenza Virus 2021-08-17 Completed [facility] Vaccine,quad 00:00:00 [facility] 65+ Influenza Virus 2021-08-17 Completed [facility] Vaccine,quad 00:00:00 [facility] 65+ Influenza Virus 2021-08-17 Completed [facility] Vaccine,quad 00:00:00 [facility] 65+ Influenza Virus 2021-08-17 Completed [facility] Vaccine,quad 00:00:00 [facility] 65+ Influenza Virus 2021-08-17 Completed [facility] Vaccine,quad 00:00:00 [facility] 65+ Influenza Virus 2021-08-17 Completed [facility] Vaccine,quad 00:00:00 [facility] 65+ Influenza Virus 2021-08-17 Completed [facility] Vaccine,quad 00:00:00 [facility] 65+ Influenza Virus 2021-08-17 Completed [facility] Vaccine,quad 00:00:00 [facility] 65+ Influenza Virus 2021-08-17 Completed [facility] Vaccine,quad 00:00:00 [facility] 65+ Influenza Virus 2021-08-17 Completed [facility] Vaccine,quad 00:00:00 [facility] 65+ Influenza Virus 2021-08-17 Completed [facility] Vaccine,quad 00:00:00 [facility] 65+ Influenza Virus 2021-08-17 Completed [facility] Vaccine,quad 00:00:00 [facility] 65+ Influenza Virus 2021-08-17 Completed [facility] Vaccine,quad 00:00:00 [facility] 65+ Influenza Virus 2021-08-17 Completed [facility] Vaccine,quad 00:00:00 [facility] 65+ Influenza Virus 2021-08-17 Completed [facility] Vaccine,quad 00:00:00 [facility] 65+ Influenza Virus 2021-08-17 Completed [facility] Vaccine,quad 00:00:00 [facility] 65+ Influenza Virus 2021-08-17 Completed [facility] Vaccine,quad 00:00:00 [facility] 65+ Influenza Virus 2021-08-17 Completed [facility] Vaccine,quad 00:00:00 [facility] 65+ Influenza Virus 2021-08-17 Completed [facility] Vaccine,quad 00:00:00 [facility] 65+ Influenza Virus 2021-08-17 Completed [facility] Vaccine,quad 00:00:00 [facility] 65+ Influenza Virus 2021-08-17 Completed [facility] Vaccine,quad 00:00:00 [facility] 65+ Influenza Virus 2021-08-17 Completed [facility] Vaccine,quad 00:00:00 [facility] 65+ Influenza Virus 2021-08-17 Completed [facility] Vaccine,quad 00:00:00 [facility] 65+ Influenza Virus 2021-08-17 Completed [facility] Vaccine,quad 00:00:00 [facility] 65+ Influenza Virus 2021-08-17 Completed [facility] Vaccine,quad 00:00:00 [facility] 65+ Influenza Virus 2021-08-17 Completed [facility] Vaccine,quad 00:00:00 [facility] 65+ Influenza Virus 2021-08-17 Completed [facility] Vaccine,quad 00:00:00 [facility] 65+ Influenza Virus 2021-08-17 Completed [facility] Vaccine,quad 00:00:00 [facility] 65+ Influenza Virus 2021-08-17 Completed [facility] Vaccine,quad 00:00:00 [facility] 65+ Influenza Virus 2021-08-17 Completed [facility] Vaccine,quad 00:00:00 [facility] 65+ Influenza Virus 2021-08-17 Completed [facility] Vaccine,quad 00:00:00 [facility] 65+ Influenza Virus 2021-08-17 Completed [facility] Vaccine,quad 00:00:00 [facility]+ Influenza Virus 2021-08-17 Completed [facility] Vaccine,quad 00:00:00 [facility] 65+ Influenza Virus 2021-08-17 Completed [facility] Vaccine,quad 00:00:00 [facility] 65+ Influenza Virus 2021-08-17 Completed [facility] Vaccine,quad 00:00:00 [facility]+ Influenza Virus 2021-08-17 Completed [facility] Vaccine,quad 00:00:00 [facility] 65+ Influenza Virus 2021-08-17 Completed [facility] Vaccine,quad 00:00:00 [facility] 65+ Influenza Virus 2021-08-17 Completed [facility] Vaccine,quad 00:00:00 [facility] 65+ Influenza Virus 2021-08-17 Completed [facility] Vaccine,quad 00:00:00 [facility] 65+ Influenza Virus 2021-08-17 Completed [facility] Vaccine,quad 00:00:00 [facility] 65+ Influenza Virus 2021-08-17 Completed [facility] Vaccine,quad 00:00:00 [facility] 65+ Influenza Virus 2021-08-17 Completed [facility] Vaccine,quad 00:00:00 [facility] 65+ Influenza Virus 2021-08-17 Completed [facility] Vaccine,quad 00:00:00 [facility] 65+ Influenza Virus 2021-08-17 Completed [facility] Vaccine,quad 00:00:00 [facility] 65+ Influenza Virus 2021-08-17 Completed [facility] Vaccine,quad 00:00:00 [facility] 65+ Influenza Virus 2021-08-17 Completed [facility] Vaccine,quad 00:00:00 [facility] 65+ Influenza Virus 2021-08-17 Completed [facility] Vaccine,quad 00:00:00 [facility] 65+ Influenza Virus 2021-08-17 Completed [facility] Vaccine,quad 00:00:00 [facility] 65+ Influenza Virus 2021-08-17 Completed [facility] Vaccine,quad 00:00:00 [facility] 65+ Influenza Virus 2021-08-17 Completed [facility] Vaccine,quad 00:00:00 [facility] 65+ Influenza Virus 2021-08-17 Completed [facility] Vaccine,quad 00:00:00 [facility] 65+ Influenza Virus 2021-08-17 Completed [facility] Vaccine,quad 00:00:00 [facility] 65+ Influenza Virus 2021-08-17 Completed [facility] Vaccine,quad 00:00:00 [facility] 65+ Influenza Virus 2021-08-17 Completed [facility] Vaccine,quad 00:00:00 [facility] 65+ Influenza Virus 2021-08-17 Completed [facility] Vaccine,quad 00:00:00 [facility] 65+ Influenza Virus 2021-08-17 Completed [facility] Vaccine,quad 00:00:00 [facility] 65+ Influenza Virus 2021-08-17 Completed [facility] Vaccine,quad 00:00:00 [facility] 65+ Influenza Virus 2021-08-17 Completed [facility] Vaccine,quad 00:00:00 [facility] 65+ Influenza Virus 2021-08-17 Completed [facility] Vaccine,quad 00:00:00 [facility] 65+ Influenza Virus 2021-08-17 Completed [facility] Vaccine,quad 00:00:00 [facility] 65+ Influenza Virus 2021-08-17 Completed [facility] Vaccine,quad 00:00:00 [facility] 65+ Influenza Virus 2021-08-17 Completed [facility] Vaccine,quad 00:00:00 [facility] 65+ Influenza Virus 2021-08-17 Completed [facility] Vaccine,quad 00:00:00 [facility] 65+ Influenza Virus 2021-08-17 Completed [facility] Vaccine,quad 00:00:00 [facility] 65+ Influenza Virus 2021-08-17 Completed [facility] Vaccine,quad 00:00:00 [facility] 65+ Influenza Virus 2021-08-17 Completed [facility] Vaccine,quad 00:00:00 [facility] 65+ Influenza Virus 2021-08-17 Completed [facility] Vaccine,quad 00:00:00 [facility] 65+ Influenza Virus 2021-08-17 Completed [facility] Vaccine,quad 00:00:00 [facility] 65+ Influenza Virus 2021-08-17 Completed [facility] Vaccine,quad 00:00:00 [facility] 65+ Influenza Virus 2021-08-17 Completed [facility] Vaccine,quad 00:00:00 [facility]+ Influenza Virus 2021-08-17 Completed [facility] Influenza Virus 2021-08-17 Completed [facility]+ Influenza Virus 2021-08-17 Completed [facility] 00:00[facility]00 [facility]+ Influenza Virus 2021-08-17 Completed [facility] 00:00:00 [facility]+ Influenza Virus 2021-08-17 Completed [facility] 00:00:00 [facility]+ Influenza Virus 2021-08-17 Completed [facility] 00:00[facility]00 [facility]+ Influenza Virus 2021-08-17 Completed [facility] 00:00:00 [facility]+ Influenza Virus 2021-08-17 Completed [facility] 00:00:00 [facility]+ Influenza Virus 2021-08-17 Completed [facility] 00:00:00 [facility]+ Influenza Virus 2021-08-17 Completed [facility] 00:00:00 [facility]+ Influenza Virus 2021-08-17 Completed [facility] 00:00:00 [facility]+ Influenza Virus 2021-08-17 Completed [facility] 00:00:00 [facility]+ Influenza Virus 2021-08-17 Completed [facility] 00:00:00 [facility]+ Influenza Virus 2021-08-17 Completed [facility] 00:00:00 [facility]+ Influenza Virus 2021-08-17 Completed [facility] 00:00:00 [facility]+ Influenza Virus 2021-08-17 Completed [facility] 00:00:00 [facility]+ Influenza Virus 2021-08-17 Completed [facility] 00:00:00 [facility]+ Influenza Virus 2021-08-17 Completed [facility] 00:00:00 [facility]+ Influenza Virus 2021-08-17 Completed [facility] 00:00:00 [facility]+ Influenza Virus 2021-08-17 Completed [facility] 00:00:00 [facility]+ Influenza Virus 2021-08-17 Completed [facility] 00:00:00 [facility]+ Influenza Virus 2021-08-17 Completed [facility] 00:00:00 [facility]+ Influenza Virus 2021-08-17 Completed [facility] 00:00:00 [facility]+ Influenza Virus 2021-08-17 Completed [facility] 00:00:00 [facility]+ Influenza Virus 2021-08-17 Completed [facility] 00:00:00 [facility]+ Influenza Virus 2021-08-17 Completed [facility] 00:00:00 [facility]+ Influenza Virus 2021-08-17 Completed [facility] 00:00:00 [facility]+ SARS-COV-2 COVID-19 2021-07-27 Completed [facility] PFIZER VACCINE 00:00:00 [facility] SARS-COV-2 COVID-19 2021-07-27 Completed [facility] PFIZER VACCINE 00:00:00 [facility] SARS-COV-2 COVID-19 2021-07-27 Completed [facility] PFIZER VACCINE 00:00:00 [facility] SARS-COV-2 COVID-19 2021-07-27 Completed [facility] PFIZER VACCINE 00:00:00 [facility] SARS-COV-2 COVID-19 2021-07-27 Completed [facility] PFIZER VACCINE 00:00:00 [facility] SARS-COV-2 COVID-19 2021-07-27 Completed [facility] PFIZER VACCINE 00:00:00 [facility] SARS-COV-2 COVID-19 2021-07-27 Completed [facility] PFIZER VACCINE 00:00:00 [facility] SARS-COV-2 COVID-19 2021-07-27 Completed [facility] PFIZER VACCINE 00:00:00 [facility] SARS-COV-2 COVID-19 2021-07-27 Completed [facility] PFIZER VACCINE 00:00:00 [facility] SARS-COV-2 COVID-19 2021-07-27 Completed [facility] PFIZER VACCINE 00:00:00 [facility] SARS-COV-2 COVID-19 2021-07-27 Completed [facility] PFIZER VACCINE 00:00:00 [facility] SARS-COV-2 COVID-19 2021-07-27 Completed [facility] PFIZER VACCINE 00:00:00 [facility] SARS-COV-2 COVID-19 2021-07-27 Completed [facility] PFIZER VACCINE 00:00:00 [facility] SARS-COV-2 COVID-19 2021-07-27 Completed [facility] PFIZER VACCINE 00:00:00 [facility] SARS-COV-2 COVID-19 2021-07-27 Completed [facility] PFIZER VACCINE 00:00:00 [facility] SARS-COV-2 COVID-19 2021-07-27 Completed [facility] PFIZER VACCINE 00:00:00 [facility] SARS-COV-2 COVID-19 2021-07-27 Completed [facility] PFIZER VACCINE 00:00:00 [facility] SARS-COV-2 COVID-19 2021-07-27 Completed [facility] PFIZER VACCINE 00:00:00 [facility] SARS-COV-2 COVID-19 2021-07-27 Completed [facility] PFIZER VACCINE 00:00:00 [facility] SARS-COV-2 COVID-19 2021-07-27 Completed [facility] PFIZER VACCINE 00:00:00 [facility] SARS-COV-2 COVID-19 2021-07-27 Completed [facility] PFIZER VACCINE 00:00:00 [facility] SARS-COV-2 COVID-19 2021-07-27 Completed [facility] PFIZER VACCINE 00:00:00 [facility] SARS-COV-2 COVID-19 2021-07-27 Completed [facility] PFIZER VACCINE 00:00:00 [facility] SARS-COV-2 COVID-19 2021-07-27 Completed [facility] PFIZER VACCINE 00:00:00 [facility] SARS-COV-2 COVID-19 2021-07-27 Completed [facility] PFIZER VACCINE 00:00:00 [facility] SARS-COV-2 COVID-19 2021-07-27 Completed [facility] PFIZER VACCINE 00:00:00 [facility] SARS-COV-2 COVID-19 2021-07-27 Completed [facility] PFIZER VACCINE 00:00:00 [facility] SARS-COV-2 COVID-19 2021-07-27 Completed [facility] PFIZER VACCINE 00:00:00 [facility] SARS-COV-2 COVID-19 2021-07-27 Completed [facility] PFIZER VACCINE 00:00:00 [facility] SARS-COV-2 COVID-19 2021-07-27 Completed [facility] PFIZER VACCINE 00:00:00 [facility] SARS-COV-2 COVID-19 2021-07-27 Completed [facility] PFIZER VACCINE 00:00:00 [facility] SARS-COV-2 COVID-19 2021-07-27 Completed [facility] PFIZER VACCINE 00:00:00 [facility] SARS-COV-2 COVID-19 2021-07-27 Completed [facility] PFIZER VACCINE 00:00:00 [facility] SARS-COV-2 COVID-19 2021-07-27 Completed [facility] PFIZER VACCINE 00:00:00 [facility] SARS-COV-2 COVID-19 2021-07-27 Completed [facility] PFIZER VACCINE 00:00:00 [facility] SARS-COV-2 COVID-19 2021-07-27 Completed [facility] PFIZER VACCINE 00:00:00 [facility] SARS-COV-2 COVID-19 2021-07-27 Completed [facility] PFIZER VACCINE 00:00:00 [facility] SARS-COV-2 COVID-19 2021-07-27 Completed [facility] PFIZER VACCINE 00:00:00 [facility] SARS-COV-2 COVID-19 2021-07-27 Completed [facility] PFIZER VACCINE 00:00:00 [facility] SARS-COV-2 COVID-19 2021-07-27 Completed [facility] PFIZER VACCINE 00:00:00 [facility] SARS-COV-2 COVID-19 2021-07-27 Completed [facility] PFIZER VACCINE 00:00:00 [facility] SARS-COV-2 COVID-19 2021-07-27 Completed [facility] PFIZER VACCINE 00:00:00 [facility] SARS-COV-2 COVID-19 2021-07-27 Completed [facility] PFIZER VACCINE 00:00:00 [facility] SARS-COV-2 COVID-19 2021-07-27 Completed [facility] PFIZER VACCINE 00:00:00 [facility] SARS-COV-2 COVID-19 2021-07-27 Completed [facility] PFIZER VACCINE 00:00:00 [facility] SARS-COV-2 COVID-19 2021-07-27 Completed [facility] PFIZER VACCINE 00:00:00 [facility] SARS-COV-2 COVID-19 2021-07-27 Completed [facility] PFIZER VACCINE 00:00:00 [facility] SARS-COV-2 COVID-19 2021-07-27 Completed [facility] PFIZER VACCINE 00:00:00 [facility] SARS-COV-2 COVID-19 2021-07-27 Completed [facility] PFIZER VACCINE 00:00:00 [facility] SARS-COV-2 COVID-19 2021-07-27 Completed [facility] PFIZER VACCINE 00:00:00 [facility] SARS-COV-2 COVID-19 2021-07-27 Completed [facility] PFIZER VACCINE 00:00:00 [facility] SARS-COV-2 COVID-19 2021-07-27 Completed [facility] PFIZER VACCINE 00:00:00 [facility] SARS-COV-2 COVID-19 2021-07-27 Completed [facility] PFIZER VACCINE 00:00:00 [facility] SARS-COV-2 COVID-19 2021-07-27 Completed [facility] PFIZER VACCINE 00:00:00 [facility] SARS-COV-2 COVID-19 2021-07-27 Completed [facility] PFIZER VACCINE 00:00:00 [facility] SARS-COV-2 COVID-19 2021-07-27 Completed [facility] PFIZER VACCINE 00:00:00 [facility] SARS-COV-2 COVID-19 2021-07-27 Completed [facility] PFIZER VACCINE 00:00:00 [facility] SARS-COV-2 COVID-19 2021-07-27 Completed [facility] PFIZER VACCINE 00:00:00 [facility] SARS-COV-2 COVID-19 2021-07-27 Completed [facility] PFIZER VACCINE 00:00:00 [facility] SARS-COV-2 COVID-19 2021-07-27 Completed [facility] PFIZER VACCINE 00:00:00 [facility] SARS-COV-2 COVID-19 2021-07-27 Completed [facility] PFIZER VACCINE 00:00:00 [facility] SARS-COV-2 COVID-19 2021-07-27 Completed [facility] PFIZER VACCINE 00:00:00 [facility] SARS-COV-2 COVID-19 2021-07-27 Completed [facility] PFIZER VACCINE 00:00:00 [facility] SARS-COV-2 COVID-19 2021-07-27 Completed [facility] PFIZER VACCINE 00:00:00 [facility] SARS-COV-2 COVID-19 2021-07-27 Completed [facility] P[facility]ZER VACCINE 00:00:00 [facility] SARS-COV-2 COVID-19 2021-07-27 Completed [facility] PFIZER VACCINE 00:00:00 [facility] SARS-COV-2 COVID-19 2021-07-27 Completed [facility] PFIZER VACCINE 00:00:00 [facility] SARS-COV-2 COVID-19 2021-07-27 Completed [facility] PFIZER VACCINE 00:00:00 [facility] SARS-COV-2 COVID-19 2021-07-27 Completed [facility] PFIZER VACCINE 00:00:00 [facility] SARS-COV-2 COVID-19 2021-07-27 Completed [facility] PFIZER VACCINE 00:00:00 [facility] SARS-COV-2 COVID-19 2021-07-27 Completed [facility] PFIZER VACCINE 00:00:00 [facility] SARS-COV-2 COVID-19 2021-07-27 Completed [facility] PFIZER VACCINE 00:00:00 [facility] SARS-COV-2 COVID-19 2021-07-27 Completed [facility] PFIZER VACCINE 00:00:00 [facility] SARS-COV-2 COVID-19 2021-07-27 Completed [facility] PFIZER VACCINE 00:00:00 [facility] SARS-COV-2 COVID-19 2021-07-27 Completed [facility] PFIZER VACCINE 00:00:00 [facility] SARS-COV-2 COVID-19 2021-07-27 Completed [facility] PFIZER VACCINE 00:00:00 [facility] SARS-COV-2 COVID-19 2021-07-27 Completed [facility] PFIZER VACCINE 00:00:00 [facility] SARS-COV-2 COVID-19 2021-07-27 Completed [facility] PFIZER VACCINE 00:00:00 [facility] SARS-COV-2 COVID-19 2021-07-27 Completed [facility] PFIZER VACCINE 00:00:00 [facility] SARS-COV-2 COVID-19 2021-07-27 Completed [facility] PFIZER VACCINE 00:00:00 [facility] SARS-COV-2 COVID-19 2021-07-27 Completed [facility] PFIZER VACCINE 00:00:00 [facility] SARS-COV-2 COVID-19 2021-07-27 Completed [facility] PFIZER VACCINE 00:00:00 [facility] SARS-COV-2 COVID-19 2021-07-27 Completed [facility] PFIZER VACCINE 00:00:00 [facility] SARS-COV-2 COVID-19 2021-07-27 Completed [facility] PFIZER VACCINE 00:00:00 [facility] SARS-COV-2 COVID-19 2021-07-27 Completed [facility] PFIZER VACCINE 00:00:00 [facility] SARS-COV-2 COVID-19 2021-07-27 Completed [facility] PFIZER VACCINE 00:00:00 [facility] SARS-COV-2 COVID-19 2021-07-27 Completed [facility] PFIZER VACCINE 00:00:00 [facility] SARS-COV-2 COVID-19 2021-07-27 Completed [facility] PFIZER VACCINE 00:00:00 [facility] SARS-COV-2 COVID-19 2021-07-27 Completed [facility] PFIZER VACCINE 00:00:00 [facility] SARS-COV-2 COVID-19 2021-07-27 Completed [facility] PFIZER VACCINE 00:00:00 [facility] SARS-COV-2 COVID-19 2021-07-27 Completed [facility] PFIZER VACCINE 00:00:00 [facility] SARS-COV-2 COVID-19 2021-07-27 Completed [facility] PFIZER VACCINE 00:00:00 [facility] SARS-COV-2 COVID-19 2021-07-27 Completed [facility] PFIZER VACCINE 00:00:00 [facility] SARS-COV-2 COVID-19 2021-07-27 Completed [facility] PFIZER VACCINE 00:00:00 [facility] SARS-COV-2 COVID-19 2021-07-27 Completed [facility] PFIZER VACCINE 00:00:00 [facility] SARS-COV-2 COVID-19 2021-07-27 Completed [facility] PFIZER VACCINE 00:00:00 [facility] SARS-COV-2 COVID-19 2021-07-27 Completed [facility] PFIZER VACCINE 00:00:00 [facility] SARS-COV-2 COVID-19 2021-07-27 Completed [facility] PFIZER VACCINE 00:00:00 [facility] SARS-COV-2 COVID-19 2021-07-27 Completed [facility] PFIZER VACCINE 00:00:00 [facility] SARS-COV-2 COVID-19 2021-07-27 Completed [facility] PFIZER VACCINE 00:00:00 [facility] SARS-COV-2 COVID-19 2021-07-27 Completed [facility] PFIZER VACCINE 00:00:00 [facility] SARS-COV-2 COVID-19 2021-07-27 Completed [facility] PFIZER VACCINE 00:00:00 [facility] SARS-COV-2 COVID-19 2021-07-27 Completed [facility] PFIZER VACCINE 00:00:00 [facility] SARS-COV-2 COVID-19 2021-07-27 Completed [facility] PFIZER VACCINE 00:00:00 [facility] SARS-COV-2 COVID-19 2021-07-27 Completed [facility] PFIZER VACCINE 00:00:00 [facility] SARS-COV-2 COVID-19 2021-07-27 Completed [facility] PFIZER VACCINE 00:00:00 [facility] SARS-COV-2 COVID-19 2021-07-27 Completed [facility] PFIZER VACCINE 00:00:00 [facility] SARS-COV-2 COVID-19 2021-07-27 Completed [facility] PFIZER VACCINE 00:00:00 [facility] SARS-COV-2 COVID-19 2021-07-27 Completed [facility] PFIZER VACCINE 00:00:00 [facility] SARS-COV-2 COVID-19 2021-07-27 Completed [facility] PFIZER VACCINE 00:00:00 [facility] SARS-COV-2 COVID-19 2021-07-27 Completed [facility] PFIZER VACCINE 00:00:00 [facility] SARS-COV-2 COVID-19 2021-07-27 Completed [facility] PFIZER VACCINE 00:00:00 [facility] SARS-COV-2 COVID-19 2021-07-27 Completed [facility] PFIZER VACCINE 00:00:00 [facility] SARS-COV-2 COVID-19 2021-07-27 Completed [facility] PFIZER VACCINE 00:00:00 [facility] SARS-COV-2 COVID-19 2021-07-27 Completed [facility] PFIZER VACCINE 00:00:00 [facility] SARS-COV-2 COVID-19 2021-07-27 Completed [facility] PFIZER VACCINE 00:00:00 [facility] SARS-COV-2 COVID-19 2021-07-27 Completed [facility] PFIZER VACCINE 00:00:00 [facility] SARS-COV-2 COVID-19 2021-07-27 Completed [facility] PFIZER VACCINE 00:00:00 [facility] SARS-COV-2 COVID-19 2021-07-27 Completed [facility] PFIZER VACCINE 00:00:00 [facility] SARS-COV-2 COVID-19 2021-07-27 Completed [facility] PFIZER VACCINE 00:00:00 [facility] SARS-COV-2 COVID-19 2021-07-27 Completed [facility] PFIZER VACCINE 00:00:00 [facility] SARS-COV-2 COVID-19 2021-07-27 Completed [facility] PFIZER VACCINE 00:00:00 [facility] SARS-COV-2 COVID-19 2021-07-27 Completed [facility] PFIZER VACCINE 00:00:00 [facility] SARS-COV-2 COVID-19 2021-07-27 Completed [facility] PFIZER VACCINE 00:00:00 [facility] SARS-COV-2 COVID-19 2021-07-27 Completed [facility] PFIZER VACCINE 00:00:00 [facility] SARS-COV-2 COVID-19 2021-07-27 Completed [facility] PFIZER VACCINE 00:00:00 [facility] SARS-COV-2 COVID-19 2021-07-27 Completed [facility] PFIZER VACCINE 00:00:00 [facility] SARS-COV-2 COVID-19 2021-07-27 Completed [facility] PFIZER VACCINE 00:00:00 [facility] SARS-COV-2 COVID-19 2021-07-27 Completed [facility] PFIZER VACCINE 00:00:00 [facility] SARS-COV-2 COVID-19 2021-07-27 Completed [facility] PFIZER VACCINE 00:00:00 [facility] SARS-COV-2 COVID-19 2021-07-27 Completed [facility] PFIZER VACCINE 00:00:00 [facility] SARS-COV-2 COVID-19 2021-07-27 Completed [facility] PFIZER VACCINE 00:00:00 [facility] SARS-COV-2 COVID-19 2021-07-27 Completed [facility] PFIZER VACCINE 00:00:00 [facility] SARS-COV-2 COVID-19 2021-07-27 Completed [facility] PFIZER VACCINE 00:00:00 [facility] SARS-COV-2 COVID-19 2021-07-27 Completed [facility] PFIZER VACCINE 00:00:00 [facility] SARS-COV-2 COVID-19 2021-07-27 Completed [facility] PFIZER VACCINE 00:00:00 [facility] SARS-COV-2 COVID-19 2021-07-27 Completed [facility] PFIZER VACCINE 00:00:00 [facility] SARS-COV-2 COVID-19 2021-07-27 Completed [facility] PFIZER VACCINE 00:00:00 [facility] SARS-COV-2 COVID-19 2021-07-27 Completed [facility] PFIZER VACCINE 00:00:00 [facility] SARS-COV-2 COVID-19 2021-07-27 Completed [facility] PFIZER VACCINE 00:00:00 [facility] SARS-COV-2 COVID-19 2021-07-27 Completed [facility] PFIZER VACCINE 00:00:00 [facility] SARS-COV-2 COVID-19 2021-07-27 Completed [facility] PFIZER VACCINE 00:00:00 [facility] SARS-COV-2 COVID-19 2021-07-27 Completed [facility] PFIZER VACCINE 00:00:00 [facility] SARS-COV-2 COVID-19 2020-12-17 Completed [facility] PFIZER VACCINE 00:00:00 [facility] SARS-COV-2 COVID-19 2020-12-17 Completed [facility] PFIZER VACCINE 00:00:00 [facility] SARS-COV-2 COVID-19 2020-12-17 Completed [facility] PFIZER VACCINE 00:00:00 [facility] SARS-COV-2 COVID-19 2020-12-17 Completed [facility] PFIZER VACCINE 00:00:00 [facility] SARS-COV-2 COVID-19 2020-12-17 Completed [facility] PFIZER VACCINE 00:00:00 [facility] SARS-COV-2 COVID-19 2020-12-17 Completed [facility] PFIZER VACCINE 00:00:00 [facility] SARS-COV-2 COVID-19 2020-12-17 Completed [facility] PFIZER VACCINE 00:00:00 [facility] SARS-COV-2 COVID-19 2020-12-17 Completed [facility] PFIZER VACCINE 00:00:00 [facility] SARS-COV-2 COVID-19 2020-12-17 Completed [facility] PFIZER VACCINE 00:00:00 [facility] SARS-COV-2 COVID-19 2020-12-17 Completed [facility] PFIZER VACCINE 00:00:00 [facility] SARS-COV-2 COVID-19 2020-12-17 Completed [facility] PFIZER VACCINE 00:00:00 [facility] SARS-COV-2 COVID-19 2020-12-17 Completed [facility] PFIZER VACCINE 00:00:00 [facility] SARS-COV-2 COVID-19 2020-12-17 Completed [facility] PFIZER VACCINE 00:00:00 [facility] SARS-COV-2 COVID-19 2020-12-17 Completed [facility] PFIZER VACCINE 00:00:00 [facility] SARS-COV-2 COVID-19 2020-12-17 Completed [facility] PFIZER VACCINE 00:00:00 [facility] SARS-COV-2 COVID-19 2020-12-17 Completed [facility] PFIZER VACCINE 00:00:00 [facility] SARS-COV-2 COVID-19 2020-12-17 Completed [facility] PFIZER VACCINE 00:00:[address] [facility] SARS-COV-2 COVID-19 2020-12-17 Completed [facility]FIZER VACCINE 00:00:00 [facility] SARS-COV-2 COVID-19 2020-12-17 Completed [facility] PFIZER VACCINE 00:00:00 [facility] SARS-COV-2 COVID-19 2020-12-17 Completed [facility] PFIZER VACCINE 00:00:00 [facility] SARS-COV-2 COVID-19 2020-12-17 Completed [facility] PFIZER VACCINE 00:00:00 [facility] SARS-COV-2 COVID-19 2020-12-17 Completed [facility] PFIZER VACCINE 00:00:00 [facility] SARS-COV-2 COVID-19 2020-12-17 Completed [facility] PFIZER VACCINE 00:00:00 [facility] SARS-COV-2 COVID-19 2020-12-17 Completed [facility] PFIZER VACCINE 00:00:00 [facility] SARS-COV-2 COVID-19 2020-12-17 Completed [facility] PFIZER VACCINE 00:00:00 [facility] SARS-COV-2 COVID-19 2020-12-17 Completed [facility] PFIZER VACCINE 00:00:00 [facility] SARS-COV-2 COVID-19 2020-12-17 Completed [facility] PFIZER VACCINE 00:00:00 [facility] SARS-COV-2 COVID-19 2020-12-17 Completed [facility] PFIZER VACCINE 00:00:00 [facility] SARS-COV-2 COVID-19 2020-12-17 Completed [facility] PFIZER VACCINE 00:00:00 [facility] SARS-COV-2 COVID-19 2020-12-17 Completed [facility] VACCINE 00:00:00 [facility] SARS-COV-2 COVID-19 2020-12-17 Completed [facility] PFIZER VACCINE 00:00:00 [facility] SARS-COV-2 COVID-19 2020-12-17 Completed [facility] PFIZER VACCINE 00:00:00 [facility] SARS-COV-2 COVID-19 2020-12-17 Completed [facility] PFIZER VACCINE 00:00:00 [facility] SARS-COV-2 COVID-19 2020-12-17 Completed [facility] PFIZER VACCINE 00:00:00 [facility] SARS-COV-2 COVID-19 2020-12-17 Completed [facility] PFIZER VACCINE 00:00:00 [facility] SARS-COV-2 COVID-19 2020-12-17 Completed [facility] PFIZER VACCINE 00:00:00 [facility] SARS-COV-2 COVID-19 2020-12-17 Completed [facility] PFIZER VACCINE 00:00:00 [facility] SARS-COV-2 COVID-19 2020-12-17 Completed [facility] PFIZER VACCINE 00:00:00 [facility] SARS-COV-2 COVID-19 2020-12-17 Completed [facility] PFIZER VACCINE 00:00:00 [facility] SARS-COV-2 COVID-19 2020-12-17 Completed [facility] PFIZER VACCINE 00:00:00 [facility] SARS-COV-2 COVID-19 2020-12-17 Completed [facility] VACCINE 00:00:00 [facility] SARS-COV-2 COVID-19 2020-12-17 Completed [facility] PFIZER VACCINE 00:00:00 [facility] SARS-COV-2 COVID-19 2020-12-17 Completed [facility] PFIZER VACCINE 00:00:00 [facility] SARS-COV-2 COVID-19 2020-12-17 Completed [facility] PFIZER VACCINE 00:00:00 [facility] SARS-COV-2 COVID-19 2020-12-17 Completed [facility] PFIZER VACCINE 00:00:00 [facility] SARS-COV-2 COVID-19 2020-12-17 Completed [facility] PFIZ[facility] VACCINE 00:00:00 [facility] SARS-COV-2 COVID-19 2020-12-17 Completed [facility]ACC[facility] 00:00:00 [facility] SARS-COV-2 COVID-19 2020-12-17 Completed [facility] PFIZER VACCINE 00:00:00 [facility] SARS-COV-2 COVID-19 2020-12-17 Completed [facility] PFIZER VACCINE 00:00:00 [facility] SARS-COV-2 COVID-19 2020-12-17 Completed [facility] PFIZER VACCINE 00:00:00 [facility] SARS-COV-2 COVID-19 2020-12-17 Completed [facility] PFIZ[facility] VACCINE 00:00:00 [facility] SARS-COV-2 COVID-19 2020-12-17 Completed [facility] PFIZER VACCINE 00:00:00 [facility] SARS-COV-2 COVID-19 2020-12-17 Completed [facility] PFIZER VACCINE 00:00:00 [facility] SARS-COV-2 COVID-19 2020-12-17 Completed [facility] PFIZER VACCINE 00:00:00 [facility] SARS-COV-2 COVID-19 2020-12-17 Completed [facility] PFIZER VACCINE 00:00:00 [facility] SARS-COV-2 COVID-19 2020-12-17 Completed [facility] PFIZER VACCINE 00:00:00 [facility] SARS-COV-2 COVID-19 2020-12-17 Completed [facility] PFIZER VACCINE 00:00:00 [facility] SARS-COV-2 COVID-19 2020-12-17 Completed [facility] PFIZER VACCINE 00:00:00 [facility] SARS-COV-2 COVID-19 2020-12-17 Completed [facility] PFIZER VACCINE 00:00:00 [facility] SARS-COV-2 COVID-19 2020-12-17 Completed [facility] PFIZER VACCINE 00:00:00 [facility] SARS-COV-2 COVID-19 2020-12-17 Completed [facility] PFIZ[facility] VACCINE 00:00:00 [facility] SARS-COV-2 COVID-19 2020-12-17 Completed [facility] PFIZER VACCINE 00:00:00 [facility] SARS-COV-2 COVID-19 2020-12-17 Completed [facility] PFIZER VACCINE 00:00:00 [facility] SARS-COV-2 COVID-19 2020-12-17 Completed [facility] PFIZER VACCINE 00:00:00 [facility] SARS-COV-2 COVID-19 2020-12-17 Completed [facility] PFIZER VACCINE 00:00:00 [facility] SARS-COV-2 COVID-19 2020-12-17 Completed [facility] PFIZER VACCINE 00:00:00 [facility] SARS-COV-2 COVID-19 2020-12-17 Completed [facility] PFIZER VACCINE 00:00:00 [facility] SARS-COV-2 COVID-19 2020-12-17 Completed [facility] PFIZER VACCINE 00:00:00 [facility] SARS-COV-2 COVID-19 2020-12-17 Completed [facility] PFIZER VACCINE 00:00:00 [facility] SARS-COV-2 COVID-19 2020-12-17 Completed [facility] PFIZER VACCINE 00:00:00 [facility] SARS-COV-2 COVID-19 2020-12-17 Completed [facility] PFIZER VACCINE 00:00:00 [facility] SARS-COV-2 COVID-19 2020-12-17 Completed [facility] PFIZER VACCINE 00:00:00 [facility] SARS-COV-2 COVID-19 2020-12-17 Completed [facility] PFIZER VACCINE 00:00:00 [facility] SARS-COV-2 COVID-19 2020-12-17 Completed [facility] PFIZER VACCINE 00:00:00 [facility] SARS-COV-2 COVID-19 2020-12-17 Completed [facility] PFIZER VACCINE 00:00:00 [facility] SARS-COV-2 COVID-19 2020-12-17 Completed [facility] PFIZER VACCINE 00:00:00 [facility] SARS-COV-2 COVID-19 2020-12-17 Completed [facility] VACCINE 00:00:00 [facility] SARS-COV-2 COVID-19 2020-12-17 Completed [facility] P[facility] VACCINE 00:00:00 [facility] SARS-COV-2 COVID-19 2020-12-17 Completed [facility] PFIZER VACCINE 00:00:00 [facility] SARS-COV-2 COVID-19 2020-12-17 Completed [facility] PFIZER VACCINE 00:00:00 [facility] SARS-COV-2 COVID-19 2020-12-17 Completed [facility] PFIZER VACCINE 00:00:00 [facility] SARS-COV-2 COVID-19 2020-12-17 Completed [facility] PFIZER VACCINE 00:00:00 [facility] SARS-COV-2 COVID-19 2020-12-17 Completed [facility] PFIZER VACCINE 00:00:00 [facility] SARS-COV-2 COVID-19 2020-12-17 Completed [facility] PFIZER VACCINE 00:00:00 [facility] SARS-COV-2 COVID-19 2020-12-17 Completed [facility] PFIZER VACCINE 00:00:00 [facility] SARS-COV-2 COVID-19 2020-12-17 Completed [facility] PFIZER VACCINE 00:00:00 [facility] SARS-COV-2 COVID-19 2020-12-17 Completed [facility] PFIZER VACCINE 00:00:00 [facility] SARS-COV-2 COVID-19 2020-12-17 Completed [facility] PFIZER VACCINE 00:00:00 [facility] SARS-COV-2 COVID-19 2020-12-17 Completed [facility] PFIZER VACCINE 00:00:00 [facility] SARS-COV-2 COVID-19 2020-12-17 Completed [facility] PFIZER VACCINE 00:00:00 [facility] SARS-COV-2 COVID-19 2020-12-17 Completed [facility] PFIZER VACCINE 00:00:00 [facility] SARS-COV-2 COVID-19 2020-12-17 Completed [facility] PFIZER VACCINE 00:00:00 [facility] SARS-COV-2 COVID-19 2020-12-17 Completed [facility] PFIZER VACCINE 00:00:00 [facility] SARS-COV-2 COVID-19 2020-12-17 Completed [facility] PFIZER VACCINE 00:00:00 [facility] SARS-COV-2 COVID-19 2020-12-17 Completed [facility] PFIZER VACCINE 00:00:00 [facility] SARS-COV-2 COVID-19 2020-12-17 Completed [facility] PFIZER VACCINE 00:00:00 [facility] SARS-COV-2 COVID-19 2020-12-17 Completed [facility] PFIZER VACCINE 00:00:00 [facility] SARS-COV-2 COVID-19 2020-12-17 Completed [facility] PFIZER VACCINE 00:00:00 [facility] SARS-COV-2 COVID-19 2020-12-17 Completed [facility] PFIZER VACCINE 00:00:00 [facility] SARS-COV-2 COVID-19 2020-12-17 Completed [facility] PFIZER VACCINE 00:00:00 [facility] SARS-COV-2 COVID-19 2020-12-17 Completed [facility] PFIZER VACCINE 00:00:00 [facility] SARS-COV-2 COVID-19 2020-12-17 Completed [facility] PFIZ[facility] VACCINE 00:00:00 [facility] SARS-COV-2 COVID-19 2020-12-17 Completed [facility] PFIZER VACCINE 00:00:00 [facility] SARS-COV-2 COVID-19 2020-12-17 Completed [facility] PFI[facility] VACCINE 00:00:00 [facility] SARS-COV-2 COVID-19 2020-12-17 Completed [facility] PFIZER VACCINE 00:00:00 [facility] SARS-COV-2 COVID-19 2020-12-17 Completed [facility] PFIZER VACCINE 00:00:00 [facility] SARS-COV-2 COVID-19 2020-12-17 Completed [facility] PFIZER VACCINE 00:00:00 [facility] SARS-COV-2 COVID-19 2020-12-17 Completed [facility] PFIZ[facility] VACCINE 00:00:00 [facility] SARS-COV-2 COVID-19 2020-12-17 Completed [facility] PFIZER VACCINE 00:00:00 [facility] SARS-COV-2 COVID-19 2020-12-17 Completed [facility] PFIZER VACCINE 00:00:00 [facility] SARS-COV-2 COVID-19 2020-12-17 Completed [facility] PFIZER VACCINE 00:00:[address] [facility] SARS-COV-2 COVID-19 2020-12-17 Completed [facility] PFIZER VACCINE 00:00:00 [facility] SARS-COV-2 COVID-19 2020-12-17 Completed [facility] PFIZER VACCINE 00:00:00 [facility] SARS-COV-2 COVID-19 2020-12-17 Completed [facility] PFIZER VACCINE 00:00:00 [facility] SARS-COV-2 COVID-19 2020-12-17 Completed [facility] PFIZER VACCINE 00:00:00 [facility] SARS-COV-2 COVID-19 2020-12-17 Completed [facility] PFIZER VACCINE 00:00:00 [facility] SARS-COV-2 COVID-19 2020-12-17 Completed [facility] PFIZER VACCINE 00:00:00 [facility] SARS-COV-2 COVID-19 2020-12-17 Completed [facility] PFIZER VACCINE 00:00:00 [facility] SARS-COV-2 COVID-19 2020-12-17 Completed [facility] PFIZER VACCINE 00:00:00 [facility] SARS-COV-2 COVID-19 2020-12-17 Completed [facility] PFIZER VACCINE 00:00:00 [facility] SARS-COV-2 COVID-19 2020-12-17 Completed [facility] PFIZER VACCINE 00:00:00 [facility] SARS-COV-2 COVID-19 2020-12-17 Completed [facility] PFIZER VACCINE 00:00:00 [facility] SARS-COV-2 COVID-19 2020-12-17 Completed [facility] PFIZER VACCINE 00:00:00 [facility] SARS-COV-2 COVID-19 2020-12-17 Completed [facility] PFIZER VACCINE 00:00:00 [facility] SARS-COV-2 COVID-19 2020-12-17 Completed [facility] PFIZER VACCINE 00:00:00 [facility] SARS-COV-2 COVID-19 2020-12-17 Completed [facility] PFIZER VACCINE 00:00:00 [facility] SARS-COV-2 COVID-19 2020-12-17 Completed [facility] PFIZER VACCINE 00:00:00 [facility] SARS-COV-2 COVID-19 2020-12-17 Completed [facility] PFIZER VACCINE 00:00:00 [facility] SARS-COV-2 COVID-19 2020-12-17 Completed [facility] PFIZER VACCINE 00:00:00 [facility] SARS-COV-2 COVID-19 2020-12-17 Completed [facility] PFIZER VACCINE 00:00:00 [facility] SARS-COV-2 COVID-19 2020-12-17 Completed [facility] PFIZER VACCINE 00:00:00 [facility] SARS-COV-2 COVID-19 2020-12-17 Completed [facility] PFIZER VACCINE 00:00:00 [facility] SARS-COV-2 COVID-19 2020-12-17 Completed [facility] PFIZER VACCINE 00:00:00 [facility] SARS-COV-2 COVID-19 2020-12-17 Completed [facility] PFIZER VACCINE 00:00:00 [facility] SARS-COV-2 COVID-19 2020-12-17 Completed [facility] PFIZER VACCINE 00:00:00 [facility] SARS-COV-2 COVID-19 2020-12-17 Completed [facility] PFIZER VACCINE 00:00:00 [facility] SARS-COV-2 COVID-19 2020-12-17 Completed [facility] PFIZER VACCINE 00:00:00 [facility] SARS-COV-2 COVID-19 2020-12-17 Completed [facility] PFIZER VACCINE 00:00:00 [facility] SARS-COV-2 COVID-19 2020-12-17 Completed [facility] PFIZER VACCINE 00:00:00 [facility] SARS-COV-2 COVID-19 2020-12-17 Completed [facility] PFIZER VACCINE 00:00:00 [facility] SARS-COV-2 COVID-19 2020-12-17 Completed [facility] PFIZER VACCINE 00:00:00 [facility] SARS-COV-2 COVID-19 2020-12-17 Completed [facility] PFIZER VACCINE 00:00:00 [facility] SARS-COV-2 COVID-19 2020-12-17 Completed [facility] PFIZER VACCINE 00:00:00 [facility] SARS-COV-2 COVID-19 2020-11-26 Completed [facility] PFIZER VACCINE 00:00:00 [facility] SARS-COV-2 COVID-19 2020-11-26 Completed [facility] PFIZER VACCINE 00:00:00 [facility] SARS-COV-2 COVID-19 2020-11-26 Completed [facility] PFIZER VACCINE 00:00:00 [facility] SARS-COV-2 COVID-19 2020-11-26 Completed [facility] PFIZER VACCINE 00:00:00 [facility] SARS-COV-2 COVID-19 2020-11-26 Completed [facility] PFIZER VACCINE 00:00:00 [facility] SARS-COV-2 COVID-19 2020-11-26 Completed [facility] PFIZER VACCINE 00:00:00 [facility] SARS-COV-2 COVID-19 2020-11-26 Completed [facility] PFIZER VACCINE 00:00:00 [facility] SARS-COV-2 COVID-19 2020-11-26 Completed [facility] PFIZER VACCINE 00:00:00 [facility] SARS-COV-2 COVID-19 2020-11-26 Completed [facility] PFIZER VACCINE 00:00:00 [facility] SARS-COV-2 COVID-19 2020-11-26 Completed [facility] PFIZER VACCINE 00:00:00 [facility] SARS-COV-2 COVID-19 2020-11-26 Completed [facility] PFIZER VACCINE 00:00:00 [facility] SARS-COV-2 COVID-19 2020-11-26 Completed [facility] PFIZER VACCINE 00:00:00 [facility] SARS-COV-2 COVID-19 2020-11-26 Completed [facility] PFIZER VACCINE 00:00:00 [facility] SARS-COV-2 COVID-19 2020-11-26 Completed [facility] PFIZER VACCINE 00:00:00 [facility] SARS-COV-2 COVID-19 2020-11-26 Completed [facility] PFIZER VACCINE 00:00:00 [facility] SARS-COV-2 COVID-19 2020-11-26 Completed [facility] PFIZER VACCINE 00:00:00 [facility] SARS-COV-2 COVID-19 2020-11-26 Completed [facility] PFIZER VACCINE 00:00:00 [facility] SARS-COV-2 COVID-19 2020-11-26 Completed [facility] PFIZER VACCINE 00:00:00 [facility] SARS-COV-2 COVID-19 2020-11-26 Completed [facility] PFIZER VACCINE 00:00:00 [facility] SARS-COV-2 COVID-19 2020-11-26 Completed [facility] PFIZER VACCINE 00:00:00 [facility] SARS-COV-2 COVID-19 2020-11-26 Completed [facility] PFIZER VACCINE 00:00:00 [facility] SARS-COV-2 COVID-19 2020-11-26 Completed [facility] PFIZER VACCINE 00:00:00 [facility] SARS-COV-2 COVID-19 2020-11-26 Completed [facility] PFIZER VACCINE 00:00:00 [facility] SARS-COV-2 COVID-19 2020-11-26 Completed [facility] PFIZER VACCINE 00:00:00 [facility] SARS-COV-2 COVID-19 2020-11-26 Completed [facility] PFIZER VACCINE 00:00:00 [facility] SARS-COV-2 COVID-19 2020-11-26 Completed [facility] PFIZER VACCINE 00:00:00 [facility] SARS-COV-2 COVID-19 2020-11-26 Completed [facility] PFIZER VACCINE 00:00:00 [facility] SARS-COV-2 COVID-19 2020-11-26 Completed [facility] PFIZER VACCINE 00:00:00 [facility] SARS-COV-2 COVID-19 2020-11-26 Completed [facility] P[facility] VACCINE 00:00:00 [facility] SARS-COV-2 COVID-19 2020-11-26 Completed [facility] PFIZER VACCINE 00:00:00 [facility] SARS-COV-2 COVID-19 2020-11-26 Completed [facility] PFIZER VACCINE 00:00:00 [facility] SARS-COV-2 COVID-19 2020-11-26 Completed [facility] PFIZER VACCINE 00:00:00 [facility] SARS-COV-2 COVID-19 2020-11-26 Completed [facility] PFIZER VACCINE 00:00:00 [facility] SARS-COV-2 COVID-19 2020-11-26 Completed [facility] PFIZER VACCINE 00:00:00 [facility] SARS-COV-2 COVID-19 2020-11-26 Completed [facility] PFIZER VACCINE 00:00:00 [facility] SARS-COV-2 COVID-19 2020-11-26 Completed [facility] PFIZER VACCINE 00:00:00 [facility] SARS-COV-2 COVID-19 2020-11-26 Completed [facility] PFIZER VACCINE 00:00:00 [facility] SARS-COV-2 COVID-19 2020-11-26 Completed [facility] PFIZER VACCINE 00:00:00 [facility] SARS-COV-2 COVID-19 2020-11-26 Completed [facility] PFIZER VACCINE 00:00:00 [facility] SARS-COV-2 COVID-19 2020-11-26 Completed [facility] PFIZER VACCINE 00:00:00 [facility] SARS-COV-2 COVID-19 2020-11-26 Completed [facility] PFIZER VACCINE 00:00:00 [facility] SARS-COV-2 COVID-19 2020-11-26 Completed [facility] PFIZER VACCINE 00:00:00 [facility] SARS-COV-2 COVID-19 2020-11-26 Completed [facility] PFIZER VACCINE 00:00:00 [facility] SARS-COV-2 COVID-19 2020-11-26 Completed [facility] PFIZER VACCINE 00:00:00 [facility] SARS-COV-2 COVID-19 2020-11-26 Completed [facility] PFIZER VACCINE 00:00:00 [facility] SARS-COV-2 COVID-19 2020-11-26 Completed [facility] PFIZER VACCINE 00:00:00 [facility] SARS-COV-2 COVID-19 2020-11-26 Completed [facility] PFIZER VACCINE 00:00:00 [facility] SARS-COV-2 COVID-19 2020-11-26 Completed [facility] PFIZER VACCINE 00:00:00 [facility] SARS-COV-2 COVID-19 2020-11-26 Completed [facility] PFIZER VACCINE 00:00:00 [facility] SARS-COV-2 COVID-19 2020-11-26 Completed [facility] PFIZER VACCINE 00:00:00 [facility] SARS-COV-2 COVID-19 2020-11-26 Completed [facility] PFIZER VACCINE 00:00:00 [facility] SARS-COV-2 COVID-19 2020-11-26 Completed [facility] PFIZER VACCINE 00:00:00 [facility] SARS-COV-2 COVID-19 2020-11-26 Completed [facility] PFIZER VACCINE 00:00:00 [facility] SARS-COV-2 COVID-19 2020-11-26 Completed [facility] PFIZER VACCINE 00:00:00 [facility] SARS-COV-2 COVID-19 2020-11-26 Completed [facility] PFIZER VACCINE 00:00:00 [facility] SARS-COV-2 COVID-19 2020-11-26 Completed [facility] PFIZER VACCINE 00:00:00 [facility] SARS-COV-2 COVID-19 2020-11-26 Completed [facility] PFIZER VACCINE 00:00:00 [facility] SARS-COV-2 COVID-19 2020-11-26 Completed [facility]ACCINE 00:00:00 [place] [facility] SARS-COV-2 COVID-19 2020-11-26 Completed [facility] PFIZER VACCINE 00:00:00 [facility] SARS-COV-2 COVID-19 2020-11-26 Completed [facility] PFIZER VACCINE 00:00:00 [facility] SARS-COV-2 COVID-19 2020-11-26 Completed [facility] PFIZER VACCINE 00:00:00 [facility] SARS-COV-2 COVID-19 2020-11-26 Completed [facility] PFIZER VACCINE 00:00:00 [facility] SARS-COV-2 COVID-19 2020-11-26 Completed [facility] PFIZER VACCINE 00:00:00 [facility] SARS-COV-2 COVID-19 2020-11-26 Completed [facility] PFIZER VACCINE 00:00:00 [facility] SARS-COV-2 COVID-19 2020-11-26 Completed [facility] PFIZER VACCINE 00:00:00 [facility] SARS-COV-2 COVID-19 2020-11-26 Completed [facility] PFIZER VACCINE 00:00:00 [facility] SARS-COV-2 COVID-19 2020-11-26 Completed [facility] PFIZER VACCINE 00:00:00 [facility] SARS-COV-2 COVID-19 2020-11-26 Completed [facility] PFIZER VACCINE 00:00:00 [facility] SARS-COV-2 COVID-19 2020-11-26 Completed [facility] PFIZER VACCINE 00:00:00 [facility] SARS-COV-2 COVID-19 2020-11-26 Completed [facility] PFIZER VACCINE 00:00:00 [facility] SARS-COV-2 COVID-19 2020-11-26 Completed [facility] PFIZER VACCINE 00:00:00 [facility] SARS-COV-2 COVID-19 2020-11-26 Completed [facility] PFIZER VACCINE 00:00:00 [facility] SARS-COV-2 COVID-19 2020-11-26 Completed [facility] PFIZER VACCINE 00:00:00 [facility] SARS-COV-2 COVID-19 2020-11-26 Completed [facility] PFIZER VACCINE 00:00:00 [facility] SARS-COV-2 COVID-19 2020-11-26 Completed [facility] PFIZER VACCINE 00:00:00 [facility] SARS-COV-2 COVID-19 2020-11-26 Completed [facility] PFIZER VACCINE 00:00:00 [facility] SARS-COV-2 COVID-19 2020-11-26 Completed [facility] PFIZER VACCINE 00:00:00 [facility] SARS-COV-2 COVID-19 2020-11-26 Completed [facility] PFIZER VACCINE 00:00:00 [facility] SARS-COV-2 COVID-19 2020-11-26 Completed [facility] PFIZER VACCINE 00:00:00 [facility] SARS-COV-2 COVID-19 2020-11-26 Completed [facility] PFIZER VACCINE 00:00:00 [facility] SARS-COV-2 COVID-19 2020-11-26 Completed [facility] PFIZER VACCINE 00:00:00 [facility] SARS-COV-2 COVID-19 2020-11-26 Completed [facility] PFIZER VACCINE 00:00:00 [facility] SARS-COV-2 COVID-19 2020-11-26 Completed [facility] PFIZER VACCINE 00:00:00 [facility] SARS-COV-2 COVID-19 2020-11-26 Completed [facility] PFIZER VACCINE 00:00:00 [facility] SARS-COV-2 COVID-19 2020-11-26 Completed [facility] PFIZER VACCINE 00:00:00 [facility] SARS-COV-2 COVID-19 2020-11-26 Completed [facility] PFIZER VACCINE 00:00:00 [facility] SARS-COV-2 COVID-19 2020-11-26 Completed [facility] PFIZER VACCINE 00:00:00 [facility] SARS-COV-2 COVID-19 2020-11-26 Completed [facility] PFIZER VACCINE 00:00:00 [facility] SARS-COV-2 COVID-19 2020-11-26 Completed [facility] PFIZER VACCINE 00:00:00 [facility] SARS-COV-2 COVID-19 2020-11-26 Completed [facility] PFIZER VACCINE 00:00:00 [facility] SARS-COV-2 COVID-19 2020-11-26 Completed [facility] PFIZER VACCINE 00:00:00 [facility] SARS-COV-2 COVID-19 2020-11-26 Completed [facility] PFIZER VACCINE 00:00:00 [facility] SARS-COV-2 COVID-19 2020-11-26 Completed [facility] PFIZER VACCINE 00:00:00 [facility] SARS-COV-2 COVID-19 2020-11-26 Completed [facility] PFIZER VACCINE 00:00:00 [facility] SARS-COV-2 COVID-19 2020-11-26 Completed [facility] PFIZER VACCINE 00:00:00 [facility] SARS-COV-2 COVID-19 2020-11-26 Completed [facility] PFIZER VACCINE 00:00:00 [facility] SARS-COV-2 COVID-19 2020-11-26 Completed [facility] PFIZER VACCINE 00:00:00 [facility] SARS-COV-2 COVID-19 2020-11-26 Completed [facility] PFIZER VACCINE 00:00:00 [facility] SARS-COV-2 COVID-19 2020-11-26 Completed [facility] PFIZER VACCINE 00:00:00 [facility] SARS-COV-2 COVID-19 2020-11-26 Completed [facility] PFIZER VACCINE 00:00:00 [facility] SARS-COV-2 COVID-19 2020-11-26 Completed [facility] PFIZER VACCINE 00:00:00 [facility] SARS-COV-2 COVID-19 2020-11-26 Completed [facility] PFIZER VACCINE 00:00:00 [facility] SARS-COV-2 COVID-19 2020-11-26 Completed [facility] PFIZER VACCINE 00:00:00 [facility] SARS-COV-2 COVID-19 2020-11-26 Completed [facility] PFIZER VACCINE 00:00:00 [facility] SARS-COV-2 COVID-19 2020-11-26 Completed [facility] PFIZER VACCINE 00:00:00 [facility] SARS-COV-2 COVID-19 2020-11-26 Completed [facility] PFIZER VACCINE 00:00:00 [facility] SARS-COV-2 COVID-19 2020-11-26 Completed [facility] PFIZER VACCINE 00:00:00 [facility] SARS-COV-2 COVID-19 2020-11-26 Completed [facility] PFIZER VACCINE 00:00:00 [facility] SARS-COV-2 COVID-19 2020-11-26 Completed [facility] PFIZER VACCINE 00:00:00 [facility] SARS-COV-2 COVID-19 2020-11-26 Completed [facility] PFIZER VACCINE 00:00:00 [facility] SARS-COV-2 COVID-19 2020-11-26 Completed [facility] PFIZER VACCINE 00:00:00 [facility] SARS-COV-2 COVID-19 2020-11-26 Completed [facility] PFIZER VACCINE 00:00:00 [facility] SARS-COV-2 COVID-19 2020-11-26 Completed [facility] PFIZER VACCINE 00:00:00 [facility] SARS-COV-2 COVID-19 2020-11-26 Completed [facility] PFIZER VACCINE 00:00:00 [facility] SARS-COV-2 COVID-19 2020-11-26 Completed [facility] PFIZER VACCINE 00:00:00 [facility] SARS-COV-2 COVID-19 2020-11-26 Completed [facility] PFIZER VACCINE 00:00:00 [facility] SARS-COV-2 COVID-19 2020-11-26 Completed [facility] PFIZER VACCINE 00:00:00 [facility] SARS-COV-2 COVID-19 2020-11-26 Completed [facility] PFIZER VACCINE 00:00:00 [facility] SARS-COV-2 COVID-19 2020-11-26 Completed [facility] PFIZER VACCINE 00:00:00 [facility] SARS-COV-2 COVID-19 2020-11-26 Completed [facility] PFIZER VACCINE 00:00:00 [facility] SARS-COV-2 COVID-19 2020-11-26 Completed [facility] PFIZER VACCINE 00:00:00 [facility] SARS-COV-2 COVID-19 2020-11-26 Completed [facility] PFIZER VACCINE 00:00:00 [facility] SARS-COV-2 COVID-19 2020-11-26 Completed [facility] PFIZER VACCINE 00:00:00 [facility] SARS-COV-2 COVID-19 2020-11-26 Completed [facility] PFIZER VACCINE 00:00:00 [facility] SARS-COV-2 COVID-19 2020-11-26 Completed [facility] PFIZER VACCINE 00:00:00 [facility] SARS-COV-2 COVID-19 2020-11-26 Completed [facility] PFIZER VACCINE 00:00:00 [facility] SARS-COV-2 COVID-19 2020-11-26 Completed [facility] PFIZER VACCINE 00:00:00 [facility] SARS-COV-2 COVID-19 2020-11-26 Completed [facility] PFIZER VACCINE 00:00:00 [facility] SARS-COV-2 COVID-19 2020-11-26 Completed [facility] PFIZER VACCINE 00:00:00 [facility] SARS-COV-2 COVID-19 2020-11-26 Completed [facility] PFIZER VACCINE 00:00:00 [facility] SARS-COV-2 COVID-19 2020-11-26 Completed [facility] PFIZER VACCINE 00:00:00 [facility] SARS-COV-2 COVID-19 2020-11-26 Completed [facility] PFIZER VACCINE 00:00:00 [facility] SARS-COV-2 COVID-19 2020-11-26 Completed [facility] PFIZER VACCINE 00:00:00 [facility] SARS-COV-2 COVID-19 2020-11-26 Completed [facility] PFIZER VACCINE 00:00:00 [facility] SARS-COV-2 COVID-19 2020-11-26 Completed [facility] PFIZER VACCINE 00:00:00 [facility] SARS-COV-2 COVID-19 2020-11-26 Completed [facility] PFIZER VACCINE 00:00:00 [facility] SARS-COV-2 COVID-19 2020-11-26 Completed [facility] PFIZER VACCINE 00:00:00 [facility] SARS-COV-2 COVID-19 2020-11-26 Completed [facility] PFIZER VACCINE 00:00:00 [facility] SARS-COV-2 COVID-19 2020-11-26 Completed [facility] PFIZER VACCINE 00:00:00 [facility] SARS-COV-2 COVID-19 2020-11-26 Completed [facility] PFIZER VACCINE 00:00:00 [facility] SARS-COV-2 COVID-19 2020-11-26 Completed [facility] PFIZER VACCINE 00:00:00 [facility] SARS-COV-2 COVID-19 2020-11-26 Completed [facility] PFIZER VACCINE 00:00:00 [facility] SARS-COV-2 COVID-19 2020-11-26 Completed [facility] PFIZER VACCINE 00:00:00 [facility] Influenza High Dose 2020-08-12 Completed [facility] 00:00:00 [facility] Pneumococcal 2020-08-12 Completed [facility] Polysaccharide, 00:00:00 [place] [facility] PPSV23 (PNEUMOVAX) [facility] Influenza High Dose 2020-08-12 Completed [facility] 00:00:00 [facility] Pneumococcal 2020-08-12 Completed [facility] Polysaccharide, 00:00:00 [place] [facility] PPSV23 (PNEUMOVAX) [facility] Influenza High Dose 2020-08-12 Completed [facility] 00:00:00 [facility] Pneumococcal 2020-08-12 Completed [facility] Polysaccharide, 00:00:00 [place] [facility] PPSV23 (PNEUMOVAX) [facility] Influenza High Dose 2020-08-12 Completed [facility] 00:00:00 [facility] Pneumococcal 2020-08-12 Completed [facility] Polysaccharide, 00:00:00 [place] [facility] PPSV23 (PNEUMOVAX) [facility] Influenza High Dose 2020-08-12 Completed [facility] 00:00:00 [facility] Pneumococcal 2020-08-12 Completed [facility] Polysaccharide, 00:00:00 [place] [facility] PPSV23 (PNEUMOVAX) [facility] Influenza High Dose 2020-08-12 Completed [facility] 00:00:00 [facility] Pneumococcal 2020-08-12 Completed [facility] Polysaccharide, 00:00:00 [place] [facility] PPSV23 (PNEUMOVAX) [facility] Influenza High Dose 2020-08-12 Completed [facility] 00:00:00 [facility] Pneumococcal 2020-08-12 Completed [facility] Polysaccharide, 00:00:00 [place] [facility] PPSV23 (PNEUMOVAX) [facility] Influenza High Dose 2020-08-12 Completed [facility] 00:00:00 [facility] Pneumococcal 2020-08-12 Completed [facility] Polysaccharide, 00:00:00 [place] [facility] PPSV23 (PNEUMOVAX) [facility] Influenza High Dose 2020-08-12 Completed [facility] 00:00:00 [facility] Pneumococcal 2020-08-12 Completed [facility] Polysaccharide, 00:00:00 [place] [facility] PPSV23 (PNEUMOVAX) [facility] Influenza High Dose 2020-08-12 Completed [facility] 00:00:00 [facility] Pneumococcal 2020-08-12 Completed [facility] Polysaccharide, 00:00:00 [place] [facility] PPSV23 (PNEUMOVAX) [facility] Influenza High Dose 2020-08-12 Completed [facility] 00:00:00 [facility] Pneumococcal 2020-08-12 Completed [facility] Polysaccharide, 00:00:00 [place] [facility] PPSV23 (PNEUMOVAX) [facility] Influenza High Dose 2020-08-12 Completed [facility] 00:00:00 [facility] Pneumococcal 2020-08-12 Completed [facility] Polysaccharide, 00:00:00 [place] [facility] PPSV23 (PNEUMOVAX) [facility] Influenza High Dose 2020-08-12 Completed [facility] 00:00:00 [facility] Pneumococcal 2020-08-12 Completed [facility] Polysaccharide, 00:00:00 [place] [facility] PPSV23 (PNEUMOVAX) [facility] Influenza High Dose 2020-08-12 Completed [facility] 00:00:00 [facility] Pneumococcal 2020-08-12 Completed [facility] Polysaccharide, 00:00:00 [place] [facility] PPSV23 (PNEUMOVAX) [facility] Influenza High Dose 2020-08-12 Completed [facility] 00:00:00 [facility] Pneumococcal 2020-08-12 Completed [facility] Polysaccharide, 00:00:00 [place] [facility] PPSV23 (PNEUMOVAX) [facility] Influenza High Dose 2020-08-12 Completed [facility] 00:00:00 [facility] Pneumococcal 2020-08-12 Completed [facility] Polysaccharide, 00:00:00 [place] [facility] PPSV23 (PNEUMOVAX) [facility] Influenza High Dose 2020-08-12 Completed [facility] 00:00:00 [facility] Pneumococcal 2020-08-12 Completed [facility] Polysaccharide, 00:00:00 [place] [facility] PPSV23 (PNEUMOVAX) [facility] Influenza High Dose 2020-08-12 Completed [facility] 00:00:00 [facility] Pneumococcal 2020-08-12 Completed [facility] Polysaccharide, 00:00:00 [place] [facility] PPSV23 (PNEUMOVAX) [facility] Influenza High Dose 2020-08-12 Completed [facility] 00:00:00 [facility] Pneumococcal 2020-08-12 Completed [facility] Polysaccharide, 00:00:00 [place] [facility] PPSV23 (PNEUMOVAX) [facility] Influenza High Dose 2020-08-12 Completed [facility] 00:00:00 [facility] Pneumococcal 2020-08-12 Completed [facility] Polysaccharide, 00:00:00 [place] [facility] PPSV23 (PNEUMOVAX) [facility] Influenza High Dose 2020-08-12 Completed [facility] 00:00:00 [facility] Pneumococcal 2020-08-12 Completed [facility] Polysaccharide, 00:00:00 [place] [facility] PPSV23 (PNEUMOVAX) [facility] Influenza High Dose 2020-08-12 Completed [facility] 00:00:00 [facility] Pneumococcal 2020-08-12 Completed [facility] Polysaccharide, 00:00:00 [place] [facility] PPSV23 (PNEUMOVAX) [facility] Influenza High Dose 2020-08-12 Completed [facility] 00:00:00 [facility] Pneumococcal 2020-08-12 Completed [facility] Polysaccharide, 00:00:00 [place] [facility] PPSV23 (PNEUMOVAX) [facility] Influenza High Dose 2020-08-12 Completed [facility] 00:00:00 [facility] Pneumococcal 2020-08-12 Completed [facility] Polysaccharide, 00:00:00 [place] [facility] PPSV23 (PNEUMOVAX) [facility] Influenza High Dose 2020-08-12 Completed [facility] 00:00:00 [facility] Pneumococcal 2020-08-12 Completed [facility] Polysaccharide, 00:00:00 [place] [facility] PPSV23 (PNEUMOVAX) [facility] Influenza High Dose 2020-08-12 Completed [facility] 00:00:00 [facility] Pneumococcal 2020-08-12 Completed [facility] Polysaccharide, 00:00:00 [place] [facility] PPSV23 (PNEUMOVAX) [facility] Influenza High Dose 2020-08-12 Completed [facility] 00:00:00 [facility] Pneumococcal 2020-08-12 Completed [facility] Polysaccharide, 00:00:00 [place] [facility] PPSV23 (PNEUMOVAX) [facility] Influenza High Dose 2020-08-12 Completed [facility] 00:00:00 [facility] Pneumococcal 2020-08-12 Completed [facility] Polysaccharide, 00:00:00 [place] [facility] PPSV23 (PNEUMOVAX) [facility] Influenza High Dose 2020-08-12 Completed [facility] 00:00:00 [facility] Pneumococcal 2020-08-12 Completed [facility] Polysaccharide, 00:00:00 [place] [facility] PPSV23 (PNEUMOVAX) [facility] Influenza High Dose 2020-08-12 Completed [facility] 00:00:00 [facility] Pneumococcal 2020-08-12 Completed [facility] Polysaccharide, 00:00:00 [place] [facility] PPSV23 (PNEUMOVAX) [facility] Influenza High Dose 2020-08-12 Completed [facility] 00:00:00 [facility] Pneumococcal 2020-08-12 Completed [facility] Polysaccharide, 00:00:00 [place] [facility] PPSV23 (PNEUMOVAX) [facility] Influenza High Dose 2020-08-12 Completed [facility] 00:00:00 [facility] Pneumococcal 2020-08-12 Completed [facility] Polysaccharide, 00:00:00 [place] [facility] PPSV23 (PNEUMOVAX) [facility] Influenza High Dose 2020-08-12 Completed [facility] 00:00:00 [facility] Pneumococcal 2020-08-12 Completed [facility] Polysaccharide, 00:00:00 [place] [facility] PPSV23 (PNEUMOVAX) [facility] Influenza High Dose 2020-08-12 Completed [facility] 00:00:00 [facility] Pneumococcal 2020-08-12 Completed [facility] Polysaccharide, 00:00:00 [place] [facility] PPSV23 (PNEUMOVAX) [facility] Influenza High Dose 2020-08-12 Completed [facility] 00:00:00 [facility] Pneumococcal 2020-08-12 Completed [facility] Polysaccharide, 00:00:00 [place] [facility] PPSV23 (PNEUMOVAX) [facility] Influenza High Dose 2020-08-12 Completed [facility] 00:00:00 [facility] Pneumococcal 2020-08-12 Completed [facility] Polysaccharide, 00:00:00 [place] [facility] PPSV23 (PNEUMOVAX) [facility] Influenza High Dose 2020-08-12 Completed [facility] 00:00:00 [facility] Pneumococcal 2020-08-12 Completed [facility] Polysaccharide, 00:00:00 [place] [facility] PPSV23 (PNEUMOVAX) [facility] Influenza High Dose 2020-08-12 Completed [facility] 00:00:00 [facility] Pneumococcal 2020-08-12 Completed [facility] Polysaccharide, 00:00:00 [place] [facility] PPSV23 (PNEUMOVAX) [facility] Influenza High Dose 2020-08-12 Completed [facility] 00:00:00 [facility] Pneumococcal 2020-08-12 Completed [facility] Polysaccharide, 00:00:00 [place] [facility] PPSV23 (PNEUMOVAX) [facility] Influenza High Dose 2020-08-12 Completed [facility] 00:00:00 [facility] Pneumococcal 2020-08-12 Completed [facility] Polysaccharide, 00:00:00 [place] [facility] PPSV23 (PNEUMOVAX) [facility] Influenza High Dose 2020-08-12 Completed [facility] 00:00:00 [facility] Pneumococcal 2020-08-12 Completed [facility] f Polysaccharide, 00:00:00 [place] [facility] PPSV23 (PNEUMOVAX) [facility] Influenza High Dose 2020-08-12 Completed [facility] 00:00:00 [facility] Pneumococcal 2020-08-12 Completed [facility] Polysaccharide, 00:00:00 [place] [facility] PPSV23 (PNEUMOVAX) [facility] Influenza High Dose 2020-08-12 Completed [facility] 00:00:00 [facility] Pneumococcal 2020-08-12 Completed [facility] Polysaccharide, 00:00:00 [place] [facility] PPSV23 (PNEUMOVAX) [facility] Influenza High Dose 2020-08-12 Completed [facility] 00:00:00 [facility] Pneumococcal 2020-08-12 Completed [facility] Polysaccharide, 00:00:00 [place] [facility] PPSV23 (PNEUMOVAX) [facility] Influenza High Dose 2020-08-12 Completed [facility] 00:00:00 [facility] Pneumococcal 2020-08-12 Completed [facility] f Polysaccharide, 00:00:00 [place] [facility] PPSV23 (PNEUMOVAX) [facility] Influenza High Dose 2020-08-12 Completed [facility] 00:00:00 [facility] Pneumococcal 2020-08-12 Completed [facility] f Polysaccharide, 00:00:00 [place] [facility] PPSV23 (PNEUMOVAX) [facility] Influenza High Dose 2020-08-12 Completed [facility] 00:00:00 [facility] Pneumococcal 2020-08-12 Completed [facility] f Polysaccharide, 00:00:00 [place] [facility] PPSV23 (PNEUMOVAX) [facility] Influenza High Dose 2020-08-12 Completed [facility] 00:00:00 [facility] Pneumococcal 2020-08-12 Completed [facility] f Polysaccharide, 00:00:00 [place] [facility] PPSV23 (PNEUMOVAX) [facility] Influenza High Dose 2020-08-12 Completed [facility] 00:00:00 [facility] Pneumococcal 2020-08-12 Completed [facility] f Polysaccharide, 00:00:00 [place] [facility] PPSV23 (PNEUMOVAX) [facility] Influenza High Dose 2020-08-12 Completed [facility] 00:00:00 [facility] Pneumococcal 2020-08-12 Completed [facility] f Polysaccharide, 00:00:00 [place] [facility] PPSV23 (PNEUMOVAX) [facility] Influenza High Dose 2020-08-12 Completed [facility] 00:00:00 [facility] Pneumococcal 2020-08-12 Completed [facility] f Polysaccharide, 00:00:00 [place] [facility] PPSV23 (PNEUMOVAX) [facility] Influenza High Dose 2020-08-12 Completed [facility] 00:00:00 [facility] Pneumococcal 2020-08-12 Completed [facility] o f Polysaccharide, 00:00:00 [place] [facility] PPSV23 (PNEUMOVAX) [facility] Influenza High Dose 2020-08-12 Completed [facility] 00:00:00 [facility] Pneumococcal 2020-08-12 Completed [facility] o f Polysaccharide, 00:00:00 [place] [facility] PPSV23 (PNEUMOVAX) [facility] Influenza High Dose 2020-08-12 Completed [facility] 00:00:00 [facility] Pneumococcal 2020-08-12 Completed [facility] f Polysaccharide, 00:00:00 [place] [facility] PPSV23 (PNEUMOVAX) [facility] Influenza High Dose 2020-08-12 Completed [facility] 00:00:00 [facility] Pneumococcal 2020-08-12 Completed [facility] o f Polysaccharide, 00:00:00 [place] [facility] PPSV23 (PNEUMOVAX) [facility] Influenza High Dose 2020-08-12 Completed [facility] 00:00:00 [facility] Pneumococcal 2020-08-12 Completed [facility] o f Polysaccharide, 00:00:00 [place] [facility] PPSV23 (PNEUMOVAX) [facility] Influenza High Dose 2020-08-12 Completed [facility] 00:00:00 [facility] Pneumococcal 2020-08-12 Completed [facility] f Polysaccharide, 00:00:00 [place] [facility] PPSV23 (PNEUMOVAX) [facility] Influenza High Dose 2020-08-12 Completed [facility] 00:00:00 [facility] Pneumococcal 2020-08-12 Completed [facility] Polysaccharide, 00:00:00 [place] [facility] PPSV23 (PNEUMOVAX) [facility] Influenza High Dose 2020-08-12 Completed [facility] 00:00:00 [facility] Pneumococcal 2020-08-12 Completed [facility], 00:[facility]:00 [place] [facility] PPSV23 (PNEUMOVAX) [facility] Influenza High Dose 2020-08-12 Completed [facility]00 [facility] Pneumococcal 2020-08-12 Completed [facility], 00:00:00 [place] [facility] PPSV23 (PNEUMOVAX) Branch Influenza High Dose 2020-08-12 Completed [facility] 00:00:00 [facility] Pneumococcal 2020-08-12 Completed [facility], 00:00:00 [place] [facility] PPSV23 (PNEUMOVAX) Branch Influenza High Dose 2020-08-12 Completed [facility] 00:00:00 [facility] Pneumococcal 2020-08-12 Completed [facility], 00:00:00 [place] [facility] PPSV23 (PNEUMOVAX) Branch Influenza High Dose 2020-08-12 Completed [facility] 00:00:00 [facility] Pneumococcal 2020-08-12 Completed [facility], 00:00:00 [place] [facility] PPSV23 (PNEUMOVAX) [facility] Influenza High Dose 2020-08-12 Completed [facility] 00:00:00 [facility] Pneumococcal 2020-08-12 Completed [facility], 00:00:00 [place] [facility] PPSV23 (PNEUMOVAX) [facility] Influenza High Dose 2020-08-12 Completed [facility] 00:00:00 [facility] Pneumococcal 2020-08-12 Completed [facility], 00:00:00 [place] [facility] PPSV23 (PNEUMOVAX) Branch Influenza High Dose 2020-08-12 Completed [facility] 00:00:00 [facility] Pneumococcal 2020-08-12 Completed [facility], 00:00:00 [place] [facility] PPSV23 (PNEUMOVAX) [facility] Influenza High Dose 2020-08-12 Completed [facility] 00:00:00 [facility] Pneumococcal 2020-08-12 Completed [facility], 00:00:00 [place] [facility] PPSV23 (PNEUMOVAX) [facility] Influenza High Dose 2020-08-12 Completed [facility] 00[facility]00:00 [facility] Pneumococcal 2020-08-12 Completed [facility], 00:00:00 [place] [facility] PPSV23 (PNEUMOVAX) Branch Influenza High Dose 2020-08-12 Completed [facility] 00[facility]00:00 [facility] Pneumococcal 2020-08-12 Completed [facility], 00:00:00 [place] [facility] PPSV23 (PNEUMOVAX) Branch Influenza High Dose 2020-08-12 Completed [facility] 00[facility]00:00 [facility] Pneumococcal 2020-08-12 Completed [facility], 00:00:00 [place] [facility] PPSV23 (PNEUMOVAX) [facility] Influenza High Dose 2020-08-12 Completed [facility] 00:00:00 [facility] Pneumococcal 2020-08-12 Completed [facility], 00:00:00 [place] [facility] PPSV23 (PNEUMOVAX) Branch Influenza High Dose 2020-08-12 Completed [facility] 00:00:00 [facility] Pneumococcal 2020-08-12 Completed [facility], 00:00:00 [place] [facility] PPSV23 (PNEUMOVAX) Branch Influenza High Dose 2020-08-12 Completed [facility] 00:00:00 [facility] Pneumococcal 2020-08-12 Completed [facility], 00:00:00 [place] [facility] PPSV23 (PNEUMOVAX) Branch Influenza High Dose 2020-08-12 Completed [facility] 00:00:00 [facility] Pneumococcal 2020-08-12 Completed [facility], 00:00:00 [place] [facility] PPSV23 (PNEUMOVAX) Branch Influenza High Dose 2020-08-12 Completed [facility] 00:00:00 [facility] Pneumococcal 2020-08-12 Completed [facility], 00:00:00 [place] [facility] PPSV23 (PNEUMOVAX) Branch Influenza High Dose 2020-08-12 Completed [facility] 00:00:00 [facility] Pneumococcal 2020-08-12 Completed [facility], 00:00:00 [place] [facility] PPSV23 (PNEUMOVAX) Branch Influenza High Dose 2020-08-12 Completed [facility] 00:00:00 [facility] Pneumococcal 2020-08-12 Completed [facility], 00:00:00 [place] [facility] PPSV23 (PNEUMOVAX) Branch Influenza High Dose 2020-08-12 Completed [facility] 00:00:00 [facility] Pneumococcal 2020-08-12 Completed [facility], 00:00:00 [place] [facility] PPSV23 (PNEUMOVAX) Branch Influenza High Dose 2020-08-12 Completed [facility] 00:00:00 [facility] Pneumococcal 2020-08-12 Completed [facility], 00:00:00 [place] [facility] PPSV23 (PNEUMOVAX) Branch Influenza High Dose 2020-08-12 Completed [facility] 00:00:00 [facility] Pneumococcal 2020-08-12 Completed [facility], 00:00:00 [place] [facility] PPSV23 (PNEUMOVAX) Branch Influenza High Dose 2020-08-12 Completed [facility] 00:00:00 [facility] Pneumococcal 2020-08-12 Completed [facility], 00:00:00 [place] [facility] PPSV23 (PNEUMOVAX) Branch Influenza High Dose 2020-08-12 Completed [facility] 00:00:00 [facility] Pneumococcal 2020-08-12 Completed [facility], 00:00:00 [place] [facility] PPSV23 (PNEUMOVAX) Branch Influenza High Dose 2020-08-12 Completed [facility] 00:00:00 [facility] Pneumococcal 2020-08-12 Completed [facility], 00:00:00 [place] [facility] PPSV23 (PNEUMOVAX) Branch Influenza High Dose 2020-08-12 Completed [facility] 00:00:00 [facility] Pneumococcal 2020-08-12 Completed [facility], 00:00:00 [place] [facility] PPSV23 (PNEUMOVAX) Branch Influenza High Dose 2020-08-12 Completed [facility] 00:00:00 [facility] Pneumococcal 2020-08-12 Completed [facility], 00:00:00 [place] [facility] PPSV23 (PNEUMOVAX) Branch Influenza High Dose 2020-08-12 Completed [facility] 00:00:00 [facility] Pneumococcal 2020-08-12 Completed [facility], 00:00:00 [place] [facility] PPSV23 (PNEUMOVAX) Branch Influenza High Dose 2020-08-12 Completed [facility] 00:00:00 [facility] Pneumococcal 2020-08-12 Completed [facility], 00:00:00 [place] [facility] PPSV23 (PNEUMOVAX) Branch Influenza High Dose 2020-08-12 Completed [facility] 00:00:00 [facility] Pneumococcal 2020-08-12 Completed [facility], 00:00:00 [place] [facility] PPSV23 (PNEUMOVAX) Branch Influenza High Dose 2020-08-12 Completed [facility] 00:00:00 [facility] Pneumococcal 2020-08-12 Completed [facility], 00:00:00 [place] [facility] PPSV23 (PNEUMOVAX) Branch Influenza High Dose 2020-08-12 Completed [facility] 00:00:00 [facility] Pneumococcal 2020-08-12 Completed [facility], 00:00:00 [place] [facility] PPSV23 (PNEUMOVAX) Branch Influenza High Dose 2020-08-12 Completed [facility] 00:00:00 [facility] Pneumococcal 2020-08-12 Completed [facility], 00:00:00 [place] [facility] PPSV23 (PNEUMOVAX) Branch Influenza High Dose 2020-08-12 Completed [facility] 00:00:00 [facility] Pneumococcal 2020-08-12 Completed [facility], 00:00:00 [place] [facility] PPSV23 (PNEUMOVAX) Branch Influenza High Dose 2020-08-12 Completed [facility] 00:00:00 [facility] Pneumococcal 2020-08-12 Completed [facility], 00:00:00 [place] [facility] PPSV23 (PNEUMOVAX) Branch Influenza High Dose 2020-08-12 Completed [facility] 00:00:00 [facility] Pneumococcal 2020-08-12 Completed [facility], 00:00:00 [place] [facility] PPSV23 (PNEUMOVAX) Branch Influenza High Dose 2020-08-12 Completed [facility] 00:00:00 [facility] Pneumococcal 2020-08-12 Completed [facility], 00:00:00 [place] [facility] PPSV23 (PNEUMOVAX) Branch Influenza High Dose 2020-08-12 Completed [facility] 00:00:00 [facility] Pneumococcal 2020-08-12 Completed [facility], 00:00:00 [place] [facility] PPSV23 (PNEUMOVAX) Branch Influenza High Dose 2020-08-12 Completed [facility] 00:00:00 [facility] Pneumococcal 2020-08-12 Completed [facility], 00:00:00 [place] [facility] PPSV23 (PNEUMOVAX) Branch Influenza High Dose 2020-08-12 Completed [facility] 00:00:00 [facility] Pneumococcal 2020-08-12 Completed [facility], 00:00:00 [place] [facility] PPSV23 (PNEUMOVAX) Branch Influenza High Dose 2020-08-12 Completed [facility] 00:00:00 [facility] Pneumococcal 2020-08-12 Completed [facility], 00:00:00 [place] [facility] PPSV23 (PNEUMOVAX) Branch Influenza High Dose 2020-08-12 Completed [facility] 00:00:00 [facility] Pneumococcal 2020-08-12 Completed [facility] Pol[facility], 00:00:00 [place] [facility] PPSV23 (PNEUMOVAX) Branch Influenza High Dose 2020-08-12 Completed [facility] 00:00:00 [facility] Pneumococcal 2020-08-12 Completed [facility], 00:00:00 [place] [facility] PPSV23 (PNEUMOVAX) Branch Influenza High Dose 2020-08-12 Completed [facility] 00:00:00 [facility] Pneumococcal 2020-08-12 Completed [facility], 00:00:00 [place] [facility] PPSV23 (PNEUMOVAX) Branch Influenza High Dose 2020-08-12 Completed [facility] 00:00:00 [facility] Pneumococcal 2020-08-12 Completed [facility] Pol[facility], 00:00:00 [place] [facility] PPSV23 (PNEUMOVAX) Branch Influenza High Dose 2020-08-12 Completed [facility] 00:00:00 [facility] Pneumococcal 2020-08-12 Completed [facility] Pol[facility], 00:00:00 [place] [facility] PPSV23 (PNEUMOVAX) Branch Influenza High Dose 2020-08-12 Completed [facility] 00:00:00 [facility] Pneumococcal 2020-08-12 Completed [facility] Pol[facility], 00:00:00 [place] [facility] PPSV23 (PNEUMOVAX) Branch Influenza High Dose 2020-08-12 Completed [facility] 00:00:00 [facility] Pneumococcal 2020-08-12 Completed [facility] Pol[facility], 00:00:00 [place] [facility] PPSV23 (PNEUMOVAX) Branch Influenza High Dose 2020-08-12 Completed [facility] 00:00:00 [facility] Pneumococcal 2020-08-12 Completed [facility] Pol[facility], 00:00:00 [place] [facility] PPSV23 (PNEUMOVAX) Branch Influenza High Dose 2020-08-12 Completed [facility] 00:00:00 [facility] Pneumococcal 2020-08-12 Completed [facility] Pol[facility], 00:00:00 [place] [facility] PPSV23 (PNEUMOVAX) Branch Influenza High Dose 2020-08-12 Completed [facility] 00:00:00 [facility] Pneumococcal 2020-08-12 Completed [facility], 00:00:00 [place] [facility] PPSV23 (PNEUMOVAX) Branch Influenza High Dose 2020-08-12 Completed [facility] 00:00:00 [facility] Pneumococcal 2020-08-12 Completed [facility], 00:00:00 [place] [facility] PPSV23 (PNEUMOVAX) Branch Influenza High Dose 2020-08-12 Completed [facility] 00:00:00 [facility] Pneumococcal 2020-08-12 Completed [facility] Pol[facility], 00:00:00 [place] [facility] PPSV23 (PNEUMOVAX) Branch Influenza High Dose 2020-08-12 Completed [facility] 00:00:00 [facility] Pneumococcal 2020-08-12 Completed [facility] Pol[facility], 00:00:00 [place] [facility] PPSV23 (PNEUMOVAX) Branch Influenza High Dose 2020-08-12 Completed [facility] 00:00:00 [facility] Pneumococcal 2020-08-12 Completed [facility], 00:00:00 [place] [facility] PPSV23 (PNEUMOVAX) Branch Influenza High Dose 2020-08-12 Completed [facility] 00:00:00 [facility] Pneumococcal 2020-08-12 Completed [facility], 00:00:00 [place] [facility] PPSV23 (PNEUMOVAX) Branch Influenza High Dose 2020-08-12 Completed [facility] 00:00:00 [facility] Pneumococcal 2020-08-12 Completed [facility], 00:00:00 [place] [facility] PPSV23 (PNEUMOVAX) Branch Influenza High Dose 2020-08-12 Completed [facility] 00:00:00 [facility] Pneumococcal 2020-08-12 Completed [facility], 00:00:00 [place] [facility] PPSV23 (PNEUMOVAX) Branch Influenza High Dose 2020-08-12 Completed [facility] 00:00:00 [facility] Pneumococcal 2020-08-12 Completed [facility], 00:00:00 [place] [facility] PPSV23 (PNEUMOVAX) Branch Influenza High Dose 2020-08-12 Completed [facility] 00:00:00 [facility] Pneumococcal 2020-08-12 Completed [facility], 00:00:00 [place] [facility] PPSV23 (PNEUMOVAX) Branch Influenza High Dose 2020-08-12 Completed [facility] 00:00:00 [facility] Pneumococcal 2020-08-12 Completed [facility], 00:00:00 [place] [facility] PPSV23 (PNEUMOVAX) Branch Influenza High Dose 2020-08-12 Completed [facility] 00:00:00 [facility] Pneumococcal 2020-08-12 Completed [facility], 00:00:00 [place] [facility] PPSV23 (PNEUMOVAX) Branch Influenza High Dose 2020-08-12 Completed [facility] 00:00:00 [facility] Pneumococcal 2020-08-12 Completed [facility], 00:00:00 [place] [facility] PPSV23 (PNEUMOVAX) Branch Influenza High Dose 2020-08-12 Completed [facility] 00:00:00 [facility] Pneumococcal 2020-08-12 Completed [facility], 00:00:00 [place] [facility] PPSV23 (PNEUMOVAX) Branch Influenza High Dose 2020-08-12 Completed [facility] 00:00:00 [facility] Pneumococcal 2020-08-12 Completed [facility], 00:00:00 [place] [facility] PPSV23 (PNEUMOVAX) Branch Influenza High Dose 2020-08-12 Completed [facility] 00:00:00 [facility] Pneumococcal 2020-08-12 Completed [facility], 00:00:00 [place] [facility] PPSV23 (PNEUMOVAX) Branch Influenza High Dose 2020-08-12 Completed [facility] 00:00:00 [facility] Pneumococcal 2020-08-12 Completed [facility], 00:00:00 [place] [facility] PPSV23 (PNEUMOVAX) Branch Influenza High Dose 2020-08-12 Completed [facility] 00:00:00 [facility] Pneumococcal 2020-08-12 Completed [facility] Pol[facility], 00:00:00 [place] [facility] PPSV23 (PNEUMOVAX) Branch Influenza High Dose 2020-08-12 Completed [facility] 00:00:00 [facility] Pneumococcal 2020-08-12 Completed [facility] Pol[facility], 00:00:00 [place] [facility] PPSV23 (PNEUMOVAX) Branch Influenza High Dose 2020-08-12 Completed [facility] 00:00:00 [facility] Pneumococcal 2020-08-12 Completed [facility] Pol[facility], 00:00:00 [place] [facility] PPSV23 (PNEUMOVAX) Branch Influenza High Dose 2020-08-12 Completed [facility] 00:00:00 [facility] Pneumococcal 2020-08-12 Completed [facility] Pol[facility], 00:00:00 [place] [facility] PPSV23 (PNEUMOVAX) Branch Influenza High Dose 2020-08-12 Completed [facility] 00:00:00 [facility] Pneumococcal 2020-08-12 Completed [facility] Pol[facility], 00:00:00 [place] [facility] PPSV23 (PNEUMOVAX) Branch Influenza High Dose 2020-08-12 Completed [facility] 00:00:00 [facility] Pneumococcal 2020-08-12 Completed [facility] Pol[facility], 00:00:00 [place] [facility] PPSV23 (PNEUMOVAX) Branch Influenza High Dose 2020-08-12 Completed [facility] 00:00:00 [facility] Pneumococcal 2020-08-12 Completed [facility] Pol[facility], 00:00:00 [place] [facility] PPSV23 (PNEUMOVAX) Branch Influenza High Dose 2020-08-12 Completed [facility] 00:00:00 [facility] Pneumococcal 2020-08-12 Completed [facility] Pol[facility], 00:00:00 [place] [facility] PPSV23 (PNEUMOVAX) Branch Influenza High Dose 2020-08-12 Completed [facility] 00:00:00 [facility] Pneumococcal 2020-08-12 Completed [facility] Pol[facility], 00:00:00 [place] [facility] PPSV23 (PNEUMOVAX) Branch Influenza High Dose 2020-08-12 Completed [facility] 00:00:00 [facility] Pneumococcal 2020-08-12 Completed [facility] Pol[facility]accharide, 00:00:00 [place] [facility] PPSV23 (PNEUMOVAX) Branch Influenza High Dose 2020-08-12 Completed [facility] 00:00:00 [facility] Pneumococcal 2020-08-12 Completed [facility] Pol[facility], 00:00:00 [place] [facility] PPSV23 (PNEUMOVAX) Branch Influenza High Dose 2020-08-12 Completed [facility] 00:00:00 [facility] Pneumococcal 2020-08-12 Completed [facility], 00:00:00 [place] [facility] PPSV23 (PNEUMOVAX) Branch Influenza High Dose 2020-08-12 Completed [facility] 00:00:00 [facility] Pneumococcal 2020-08-12 Completed [facility] Pol[facility], 00:00:00 [place] [facility] PPSV23 (PNEUMOVAX) Branch Influenza High Dose 2020-08-12 Completed [facility] 00:00:00 [facility] Pneumococcal 2020-08-12 Completed [facility] Pol[facility], 00:00:00 [place] [facility] PPSV23 (PNEUMOVAX) Branch Influenza High Dose 2020-08-12 Completed [facility] 00:00:00 [facility] Pneumococcal 2020-08-12 Completed [facility], 00:00:00 [place] [facility] PPSV23 (PNEUMOVAX) Branch Influenza High Dose 2020-08-12 Completed [facility] 00:00:00 [facility] Pneumococcal 2020-08-12 Completed [facility] Pol[facility], 00:00:00 [place] [facility] PPSV23 (PNEUMOVAX) Branch Influenza High Dose 2020-08-12 Completed [facility] 00:00:00 [facility] Pneumococcal 2020-08-12 Completed [facility] Pol[facility], 00:00:00 [place] [facility] PPSV23 (PNEUMOVAX) Branch Influenza High Dose 2020-08-12 Completed [facility] 00:00:00 [facility] Pneumococcal 2020-08-12 Completed [facility], 00:00:00 [place] [facility] PPSV23 (PNEUMOVAX) Branch Influenza High Dose 2019-12-10 Completed [facility] 00:00:00 [facility] TDAP 2019-12-10 Completed [facility] of 00:00:00 [facility] Influenza High Dose 2019-12-10 Completed [facility] of 00:00:00 [facility] TDAP 2019-12-10 Completed [facility] of 00:00:00 [facility] Influenza High Dose 2019-12-10 Completed [facility] of 00:00:00 [facility] TDAP 2019-12-10 Completed [facility] 00:00:00 [facility] Influenza High Dose 2019-12-10 Completed [facility] of 00:00:00 [facility] TDAP 2019-12-10 Completed [facility] of 00:00:00 [facility] Influenza High Dose 2019-12-10 Completed [facility] of 00:00:00 [facility] TDAP 2019-12-10 Completed [facility] of 00:00:00 [facility] Influenza High Dose 2019-12-10 Completed [facility] of 00:00:00 [facility] TDAP 2019-12-10 Completed [facility] 00:00:00 [facility] Influenza High Dose 2019-12-10 Completed [facility] of 00:00:00 [facility] TDAP 2019-12-10 Completed [facility] of 00:00:00 [facility] Influenza High Dose 2019-12-10 Completed [facility] of 00:00:00 [facility] TDAP 2019-12-10 Completed [facility] of 00:00:00 [facility] Influenza High Dose 2019-12-10 Completed [facility] of 00:00:00 [facility] TDAP 2019-12-10 Completed [facility] of 00:00:00 [facility] Influenza High Dose 2019-12-10 Completed [facility] of 00:00:00 [facility] TDAP 2019-12-10 Completed [facility] of 00:00:00 [facility] Influenza High Dose 2019-12-10 Completed [facility] of 00:00:00 [facility] TDAP 2019-12-10 Completed [facility] of 00:00:00 [facility] Influenza High Dose 2019-12-10 Completed [facility] of 00:00:00 [facility] TDAP 2019-12-10 Completed [facility] of 00:00:00 [facility] Influenza High Dose 2019-12-10 Completed [facility] of 00:00:00 [facility] TDAP 2019-12-10 Completed [facility] 00:00:00 [facility] Influenza High Dose 2019-12-10 Completed [facility] of 00:00:00 [facility] TDAP 2019-12-10 Completed [facility] of 00:00:00 [facility] Influenza High Dose 2019-12-10 Completed [facility] of 00:00:00 [facility] TDAP 2019-12-10 Completed [facility] of 00:00:00 [facility] Influenza High Dose 2019-12-10 Completed [facility] of 00:00:00 [facility] TDAP 2019-12-10 Completed [facility] 00:00:00 [facility] Influenza High Dose 2019-12-10 Completed [facility] of 00:00:00 [facility] TDAP 2019-12-10 Completed [facility] 00:00:00 [facility] Influenza High Dose 2019-12-10 Completed [facility] of 00:00:00 [facility] TDAP 2019-12-10 Completed [facility] 00:00:00 [facility] Influenza High Dose 2019-12-10 Completed [facility] of 00:00:00 [facility] TDAP 2019-12-10 Completed [facility] 00:00:00 [facility] Influenza High Dose 2019-12-10 Completed [facility] of 00:00:00 [facility] TDAP 2019-12-10 Completed [facility] 00:00:00 [facility] Influenza High Dose 2019-12-10 Completed [facility] of 00:00:00 [facility] TDAP 2019-12-10 Completed [facility] 00:00:00 [facility] Influenza High Dose 2019-12-10 Completed [facility] of 00:00:00 [facility] TDAP 2019-12-10 Completed [facility] 00:00:00 [facility] Influenza High Dose 2019-12-10 Completed [facility] of 00:00:00 [facility] TDAP 2019-12-10 Completed [facility] 00:00:00 [facility] Influenza High Dose 2019-12-10 Completed [facility] of 00:00:00 [facility] TDAP 2019-12-10 Completed [facility] 00:00:00 [facility] Influenza High Dose 2019-12-10 Completed [facility] of 00:00:00 [facility] TDAP 2019-12-10 Completed [facility] 00:00:00 [facility] Influenza High Dose 2019-12-10 Completed [facility] of 00:00:00 [facility] TDAP 2019-12-10 Completed [facility] 00:00:00 [facility] Influenza High Dose 2019-12-10 Completed [facility] of 00:00:00 [facility] TDAP 2019-12-10 Completed [facility] 00:00:00 [facility] Influenza High Dose 2019-12-10 Completed [facility] 00:00:00 [facility] TDAP 2019-12-10 Completed [facility] 00:00:00 [facility] Influenza High Dose 2019-12-10 Completed [facility] 00:00:00 [facility] TDAP 2019-12-10 Completed [facility] 00:00:00 [facility] Influenza High Dose 2019-12-10 Completed [facility] 00:00:00 [facility] TDAP 2019-12-10 Completed [facility] 00:00:00 [facility] Influenza High Dose 2019-12-10 Completed [facility] 00:00:00 [facility] TDAP 2019-12-10 Completed [facility] 00:00:00 [facility] Influenza High Dose 2019-12-10 Completed [facility] 00:00:00 [facility] TDAP 2019-12-10 Completed [facility] 00:00:00 [facility] Influenza High Dose 2019-12-10 Completed [facility] 00:00:00 [facility] TDAP 2019-12-10 Completed [facility] 00:00:00 [facility] Influenza High Dose 2019-12-10 Completed [facility] 00:00:00 [facility] TDAP 2019-12-10 Completed [facility] 00:00:00 [facility] Influenza High Dose 2019-12-10 Completed [facility] 00:00:00 [facility] TDAP 2019-12-10 Completed [facility] 00:00:00 [facility] Influenza High Dose 2019-12-10 Completed [facility] 00:00:00 [facility] TDAP 2019-12-10 Completed [facility] 00:00:00 [facility] Influenza High Dose 2019-12-10 Completed [facility] 00:00:00 [facility] TDAP 2019-12-10 Completed [facility] 00:00:00 [facility] Influenza High Dose 2019-12-10 Completed [facility] 00:00:00 [facility] TDAP 2019-12-10 Completed [facility] 00:00:00 [facility] Influenza High Dose 2019-12-10 Completed [facility] 00:00:00 [facility] TDAP 2019-12-10 Completed [facility] 00:00:00 [facility] Influenza High Dose 2019-12-10 Completed [facility] 00:00:00 [facility] TDAP 2019-12-10 Completed [facility] 00:00:00 [facility] Influenza High Dose 2019-12-10 Completed [facility] 00:00:00 [facility] TDAP 2019-12-10 Completed [facility] 00:00:00 [facility] Influenza High Dose 2019-12-10 Completed [facility] 00:00:00 [facility] TDAP 2019-12-10 Completed [facility] 00:00:00 [facility] Influenza High Dose 2019-12-10 Completed [facility] 00:00:00 [facility] TDAP 2019-12-10 Completed [facility] 00:00:00 [facility] Influenza High Dose 2019-12-10 Completed [facility] 00:00:00 [facility] TDAP 2019-12-10 Completed [facility] 00:00:00 [facility] Influenza High Dose 2019-12-10 Completed [facility] 00:00:00 [facility] TDAP 2019-12-10 Completed [facility] 00:00:00 [facility] Influenza High Dose 2019-12-10 Completed [facility] 00:00:00 [facility] TDAP 2019-12-10 Completed [facility] 00:00:00 [facility] Influenza High Dose 2019-12-10 Completed [facility] 00:00:00 [facility] TDAP 2019-12-10 Completed [facility] 00:00:00 [facility] Influenza High Dose 2019-12-10 Completed [facility] 00:00:00 [facility] TDAP 2019-12-10 Completed [facility] 00:00:00 [facility] Influenza High Dose 2019-12-10 Completed [facility] 00:00:00 [facility] TDAP 2019-12-10 Completed [facility] 00:00:00 [facility] Influenza High Dose 2019-12-10 Completed [facility] 00:00:00 [facility] TDAP 2019-12-10 Completed [facility] 00:00:00 [facility] Influenza High Dose 2019-12-10 Completed [facility] 00:00:00 [facility] TDAP 2019-12-10 Completed [facility] 00:00:00 [facility] Influenza High Dose 2019-12-10 Completed [facility] 00:00:00 [facility] TDAP 2019-12-10 Completed [facility] 00:00:00 [facility] Influenza High Dose 2019-12-10 Completed [facility] 00:00:00 [facility] TDAP 2019-12-10 Completed [facility] 00:00:00 [facility] Influenza High Dose 2019-12-10 Completed [facility] 00:00:00 [facility] TDAP 2019-12-10 Completed [facility] 00:00:00 [facility] Influenza High Dose 2019-12-10 Completed [facility] 00:00:00 [facility] TDAP 2019-12-10 Completed [facility] 00:00:00 [facility] Influenza High Dose 2019-12-10 Completed [facility] 00:00:00 [facility] TDAP 2019-12-10 Completed [facility] 00:00:00 [facility] Influenza High Dose 2019-12-10 Completed [facility] 00:00:00 [facility] TDAP 2019-12-10 Completed [facility] 00:00:00 [facility] Influenza High Dose 2019-12-10 Completed [facility] 00:00:00 [facility] TDAP 2019-12-10 Completed [facility] 00:00:00 [facility] Influenza High Dose 2019-12-10 Completed [facility] 00:00:00 [facility] TDAP 2019-12-10 Completed [facility] 00:00:00 [facility] Influenza High Dose 2019-12-10 Completed [facility] 00:00:00 [facility] TDAP 2019-12-10 Completed [facility] 00:00:00 [facility] Influenza High Dose 2019-12-10 Completed [facility] 00:00:00 [facility] TDAP 2019-12-10 Completed [facility] 00:00:00 [facility] Influenza High Dose 2019-12-10 Completed [facility] 00:00:00 [facility] TDAP 2019-12-10 Completed [facility] 00:00:00 [facility] Influenza High Dose 2019-12-10 Completed [facility] 00:00:00 [facility] TDAP 2019-12-10 Completed [facility] 00:00:00 [facility] Influenza High Dose 2019-12-10 Completed [facility] 00:00:00 [facility] TDAP 2019-12-10 Completed [facility] 00:00:00 [facility] Influenza High Dose 2019-12-10 Completed [facility] 00:00:00 [facility] TDAP 2019-12-10 Completed [facility] 00:00:00 [facility] Influenza High Dose 2019-12-10 Completed [facility] 00:00:00 [facility] TDAP 2019-12-10 Completed [facility] 00:00:00 [facility] Influenza High Dose 2019-12-10 Completed [facility] 00:00:00 [facility] TDAP 2019-12-10 Completed [facility] 00:00:00 [facility] Influenza High Dose 2019-12-10 Completed [facility] 00:00:00 [facility] TDAP 2019-12-10 Completed [facility] 00:00:00 [facility] Influenza High Dose 2019-12-10 Completed [facility] 00:00:00 [facility] TDAP 2019-12-10 Completed [facility] 00:00:00 [facility] Influenza High Dose 2019-12-10 Completed [facility] 00:00:00 [facility] TDAP 2019-12-10 Completed [facility] 00:00:00 [facility] Influenza High Dose 2019-12-10 Completed [facility] 00:00:00 [facility] TDAP 2019-12-10 Completed [facility] 00:00:00 [facility] Influenza High Dose 2019-12-10 Completed [facility] 00:00:00 [facility] TDAP 2019-12-10 Completed [facility] 00:00:00 [facility] Influenza High Dose 2019-12-10 Completed [facility] 00:00:00 [facility] TDAP 2019-12-10 Completed [facility] 00:00:00 [facility] Influenza High Dose 2019-12-10 Completed [facility] 00:00:00 [facility] TDAP 2019-12-10 Completed [facility] 00:00:00 [facility] Influenza High Dose 2019-12-10 Completed [facility] 00:00:00 [facility] TDAP 2019-12-10 Completed [facility] 00:00:00 [facility] Influenza High Dose 2019-12-10 Completed [facility] 00:00:00 [facility] TDAP 2019-12-10 Completed [facility] 00:00:00 [facility] Influenza High Dose 2019-12-10 Completed [facility] 00:00:00 [facility] TDAP 2019-12-10 Completed [facility] 00:00:00 [facility] Influenza High Dose 2019-12-10 Completed [facility] 00:00:00 [facility] TDAP 2019-12-10 Completed [facility] 00:00:00 [facility] Influenza High Dose 2019-12-10 Completed [facility] 00:00:00 [facility] TDAP 2019-12-10 Completed [facility] 00:00:00 [facility] Influenza High Dose 2019-12-10 Completed [facility] 00:00:00 [facility] TDAP 2019-12-10 Completed [facility] 00:00:00 [facility] Influenza High Dose 2019-12-10 Completed [facility] 00:00:00 [facility] TDAP 2019-12-10 Completed [facility] 00:00:00 [facility] Influenza High Dose 2019-12-10 Completed [facility] 00:00:00 [facility] TDAP 2019-12-10 Completed [facility] 00:00:00 [facility] Influenza High Dose 2019-12-10 Completed [facility] 00:00:00 [facility] TDAP 2019-12-10 Completed [facility] 00:00:00 [facility] Influenza High Dose 2019-12-10 Completed [facility] 00:00:00 [facility] TDAP 2019-12-10 Completed [facility] 00:00:00 [facility] Influenza High Dose 2019-12-10 Completed [facility] 00:00:00 [facility] TDAP 2019-12-10 Completed [facility] 00:00:00 [facility] Influenza High Dose 2019-12-10 Completed [facility] 00:00:00 [facility] TDAP 2019-12-10 Completed [facility] 00:00:00 [facility] Influenza High Dose 2019-12-10 Completed [facility] 00:00:00 [facility] TDAP 2019-12-10 Completed [facility] 00:00:00 [facility] Influenza High Dose 2019-12-10 Completed [facility] 00:00:00 [facility] TDAP 2019-12-10 Completed [facility] 00:00:00 [facility] Influenza High Dose 2019-12-10 Completed [facility] 00:00:00 [facility] TDAP 2019-12-10 Completed [facility] 00:00:00 [facility] Influenza High Dose 2019-12-10 Completed [facility] 00:00:00 [facility] TDAP 2019-12-10 Completed [facility] 00:00:00 [facility] Influenza High Dose 2019-12-10 Completed [facility] 00:00:00 [facility] TDAP 2019-12-10 Completed [facility] 00:00:00 [facility] Influenza High Dose 2019-12-10 Completed [facility] 00:00:00 [facility] TDAP 2019-12-10 Completed [facility] 00:00:00 [facility] Influenza High Dose 2019-12-10 Completed [facility] 00:00:00 [facility] TDAP 2019-12-10 Completed [facility] 00:00:00 [facility] Influenza High Dose 2019-12-10 Completed [facility] 00:00:00 [facility] TDAP 2019-12-10 Completed [facility] 00:00:00 [facility] Influenza High Dose 2019-12-10 Completed [facility] 00:00:00 [facility] TDAP 2019-12-10 Completed [facility] 00:00:00 [facility] Influenza High Dose 2019-12-10 Completed [facility] 00:00:00 [facility] TDAP 2019-12-10 Completed [facility] 00:00:00 [facility] Influenza High Dose 2019-12-10 Completed [facility] 00:00:00 [facility] TDAP 2019-12-10 Completed [facility] 00:00:00 [facility] Influenza High Dose 2019-12-10 Completed [facility] 00:00:00 [facility] TDAP 2019-12-10 Completed [facility] 00:00:00 [facility] Influenza High Dose 2019-12-10 Completed [facility] 00:00:00 [facility] TDAP 2019-12-10 Completed [facility] 00:00:00 [facility] Influenza High Dose 2019-12-10 Completed [facility] 00:00:00 [facility] TDAP 2019-12-10 Completed [facility] 00:00:00 [facility] Influenza High Dose 2019-12-10 Completed [facility] 00:00:00 [facility] TDAP 2019-12-10 Completed [facility] 00:00:00 [facility] Influenza High Dose 2019-12-10 Completed [facility] 00:00:00 [facility] TDAP 2019-12-10 Completed [facility] 00:00:00 [facility] Influenza High Dose 2019-12-10 Completed [facility] 00:00:00 [facility] TDAP 2019-12-10 Completed [facility] 00:00:00 [facility] Influenza High Dose 2019-12-10 Completed [facility] 00:00:00 [facility] TDAP 2019-12-10 Completed [facility] 00:00:00 [facility] Influenza High Dose 2019-12-10 Completed [facility] 00:00:00 [facility] TDAP 2019-12-10 Completed [facility] 00:00:00 [facility] Influenza High Dose 2019-12-10 Completed [facility] 00:00:00 [facility] TDAP 2019-12-10 Completed [facility] 00:00:00 [facility] Influenza High Dose 2019-12-10 Completed [facility] 00:00:00 [facility] TDAP 2019-12-10 Completed [facility] 00:00:00 [facility] Influenza High Dose 2019-12-10 Completed [facility] 00:00:00 [facility] TDAP 2019-12-10 Completed [facility] 00:00:00 [facility] Influenza High Dose 2019-12-10 Completed [facility] 00:00:00 [facility] TDAP 2019-12-10 Completed [facility] 00:00:00 [facility] Influenza High Dose 2019-12-10 Completed [facility] 00:00:00 [facility] TDAP 2019-12-10 Completed [facility] 00:00:00 [facility] Influenza High Dose 2019-12-10 Completed [facility] 00:00:00 [facility] TDAP 2019-12-10 Completed [facility] 00:00:00 [facility] Influenza High Dose 2019-12-10 Completed [facility] 00:00:00 [facility] TDAP 2019-12-10 Completed [facility] 00:00:00 [facility] Influenza High Dose 2019-12-10 Completed [facility] 00:00:00 [facility] TDAP 2019-12-10 Completed [facility] 00:00:00 [facility] Influenza High Dose 2019-12-10 Completed [facility] 00:00:00 [facility] TDAP 2019-12-10 Completed [facility] 00:00:00 [facility] Influenza High Dose 2019-12-10 Completed [facility] 00:00:00 [facility] TDAP 2019-12-10 Completed [facility] 00:00:00 [facility] Influenza High Dose 2019-12-10 Completed [facility] 00:00:00 [facility] TDAP 2019-12-10 Completed [facility] 00:00:00 [facility] Influenza High Dose 2019-12-10 Completed [facility] 00:00:00 [facility] TDAP 2019-12-10 Completed [facility] 00:00:00 [facility] Influenza High Dose 2019-12-10 Completed [facility] 00:00:00 [facility] TDAP 2019-12-10 Completed [facility] 00:00:00 [facility] Influenza High Dose 2019-12-10 Completed [facility] 00:00:00 [facility] TDAP 2019-12-10 Completed [facility] 00:00:00 [facility] Influenza High Dose 2019-12-10 Completed [facility] 00:00:00 [facility] TDAP 2019-12-10 Completed [facility] 00:00:00 [facility] Influenza High Dose 2019-12-10 Completed [facility] 00:00:00 [facility] TDAP 2019-12-10 Completed [facility] 00:00:00 [facility] Influenza High Dose 2019-12-10 Completed [facility] 00:00:00 [facility] TDAP 2019-12-10 Completed [facility] 00:00:00 [facility] Influenza High Dose 2019-12-10 Completed [facility] 00:00:00 [facility] TDAP 2019-12-10 Completed [facility] 00:00:00 [facility] Influenza High Dose 2019-12-10 Completed [facility] 00:00:00 [facility] TDAP 2019-12-10 Completed [facility] 00:00:00 [facility] Influenza High Dose 2019-12-10 Completed [facility] 00:00:00 [facility] TDAP 2019-12-10 Completed [facility] 00:00:00 [facility] Influenza High Dose 2019-12-10 Completed [facility] 00:00:00 [facility] TDAP 2019-12-10 Completed [facility] 00:00:00 [facility] Influenza High Dose 2019-12-10 Completed [facility] 00:00:00 [facility] TDAP 2019-12-10 Completed [facility] 00:00:00 [facility] Influenza High Dose 2019-12-10 Completed [facility] 00:00:00 [facility] TDAP 2019-12-10 Completed [facility] 00:00:00 [facility] Influenza High Dose 2019-12-10 Completed [facility] 00:00:00 [facility] TDAP 2019-12-10 Completed [facility] 00:00:00 [facility] Influenza High Dose 2019-12-10 Completed [facility] 00:00:00 [facility] TDAP 2019-12-10 Completed [facility] 00:00:00 [facility] Influenza High Dose 2019-12-10 Completed [facility] 00:00:00 [facility] TDAP 2019-12-10 Completed [facility] 00:00:00 [facility] Influenza High Dose 2019-12-10 Completed [facility] 00:00:00 [facility] TDAP 2019-12-10 Completed [facility] 00:00:00 [facility] Influenza High Dose 2019-12-10 Completed [facility] 00:00:00 [facility] TDAP 2019-12-10 Completed [facility] 00:00:00 [facility] Influenza High Dose 2019-12-10 Completed [facility] 00:00:00 [facility] TDAP 2019-12-10 Completed [facility] 00:00:00 [facility] Influenza High Dose 2019-12-10 Completed [facility] 00:00:00 [facility] TDAP 2019-12-10 Completed [facility] 00:00:00 [facility] Influenza High Dose 2019-12-10 Completed [facility] 00:00:00 [facility] TDAP 2019-12-10 Completed [facility] 00:00:00 [facility] Influenza High Dose 2019-12-10 Completed [facility] 00:00:00 [facility] TDAP 2019-12-10 Completed [facility] 00[facility]00:00 [facility] Influenza High Dose 2019-12-10 Completed [facility] 00:00:00 [facility] TDAP 2019-12-10 Completed [facility] 00:00:00 [facility] Influenza High Dose 2019-12-10 Completed [facility] 00:00:00 [facility] TDAP 2019-12-10 Completed [facility] 00:00:00 [facility] Influenza High Dose 2019-12-10 Completed [facility] 00:00:00 [facility] TDAP 2019-12-10 Completed [facility] 00:00:00 [facility] Influenza High Dose 2019-12-10 Completed [facility] 00:00:00 [facility] TDAP 2019-12-10 Completed [facility] 00:00:00 [facility] Influenza High Dose 2019-12-10 Completed [facility] 00:00:00 [facility] TDAP 2019-12-10 Completed [facility] 00[facility]00:00 [facility] Influenza High Dose 2019-12-10 Completed [facility] 00:00:00 [facility] TDAP 2019-12-10 Completed [facility] 00:00:00 [facility] Influenza High Dose 2018-08-07 Completed [facility] 00:00:00 [facility] Influenza High Dose 2018-08-07 Completed [facility] 00:00:00 [facility] Influenza High Dose 2018-08-07 Completed [facility] 00:00:00 [facility] Influenza High Dose 2018-08-07 Completed [facility] 00:00:00 [facility] Influenza High Dose 2018-08-07 Completed [facility] 00:00:00 [facility] Influenza High Dose 2018-08-07 Completed [facility] 00:00:00 [facility] Influenza High Dose 2018-08-07 Completed [facility] 00:00:00 [facility] Influenza High Dose 2018-08-07 Completed [facility] 00:00:00 [facility] Influenza High Dose 2018-08-07 Completed [facility] 00:00:00 [facility] Influenza High Dose 2018-08-07 Completed [facility] 00:00:00 [facility] Influenza High Dose 2018-08-07 Completed [facility] 00:00:00 [facility] Influenza High Dose 2018-08-07 Completed [facility] 00:00:00 [facility] Influenza High Dose 2018-08-07 Completed [facility] 00:00:00 [facility] Influenza High Dose 2018-08-07 Completed [facility] 00:00:00 [facility] Influenza High Dose 2018-08-07 Completed [facility] 00:00:00 [facility] Influenza High Dose 2018-08-07 Completed [facility] of 00:00:00 [facility] Influenza High Dose 2018-08-07 Completed [facility] 00:00:00 [facility] Influenza High Dose 2018-08-07 Completed [facility] 00:00:00 [facility] Influenza High Dose 2018-08-07 Completed [facility] 00:00:00 [facility] Influenza High Dose 2018-08-07 Completed [facility] 00:00:00 [facility] Influenza High Dose 2018-08-07 Completed [facility] 00:00:00 [facility] Influenza High Dose 2018-08-07 Completed [facility] 00:00:00 [facility] Influenza High Dose 2018-08-07 Completed [facility] 00:00:00 [facility] Influenza High Dose 2018-08-07 Completed [facility] 00:00:00 [facility] Influenza High Dose 2018-08-07 Completed [facility] 00:00:00 [facility] Influenza High Dose 2018-08-07 Completed [facility] 00:00:00 [facility] Influenza High Dose 2018-08-07 Completed [facility] 00:00:00 [facility] Influenza High Dose 2018-08-07 Completed [facility] 00:00:00 [facility] Influenza High Dose 2018-08-07 Completed [facility] 00:00:00 [facility] Influenza High Dose 2018-08-07 Completed [facility] 00:00:00 [facility] Influenza High Dose 2018-08-07 Completed [facility] 00:00:00 [facility] Influenza High Dose 2018-08-07 Completed [facility] 00:00:00 [facility] Influenza High Dose 2018-08-07 Completed [facility] 00:00:00 [facility] Influenza High Dose 2018-08-07 Completed [facility] 00:00:00 [facility] Influenza High Dose 2018-08-07 Completed [facility] 00:00:00 [facility] Influenza High Dose 2018-08-07 Completed [facility] 00:00:00 [facility] Influenza High Dose 2018-08-07 Completed [facility] 00:00:00 [facility] Influenza High Dose 2018-08-07 Completed [facility] 00:00:00 [facility] Influenza High Dose 2018-08-07 Completed [facility] 00:00:00 [facility] Influenza High Dose 2018-08-07 Completed [facility] 00:00:00 [facility] Influenza High Dose 2018-08-07 Completed [facility] 00:00:00 [facility] Influenza High Dose 2018-08-07 Completed [facility] 00:00:00 [facility] Influenza High Dose 2018-08-07 Completed [facility] 00:00:00 [facility] Influenza High Dose 2018-08-07 Completed [facility] 00:00:00 [facility] Influenza High Dose 2018-08-07 Completed [facility] 00:00:00 [facility] Influenza High Dose 2018-08-07 Completed [facility] 00:00:00 [facility] Influenza High Dose 2018-08-07 Completed [facility] 00:00:00 [facility] Influenza High Dose 2018-08-07 Completed [facility] 00:00:00 [facility] Influenza High Dose 2018-08-07 Completed [facility] 00:00:00 [facility] Influenza High Dose 2018-08-07 Completed [facility] 00:00:00 [facility] Influenza High Dose 2018-08-07 Completed [facility] 00:00:00 [facility] Influenza High Dose 2018-08-07 Completed [facility] 00:00:00 [facility] Influenza High Dose 2018-08-07 Completed [facility] 00:00:00 [facility] Influenza High Dose 2018-08-07 Completed [facility] 00:00:00 [facility] Influenza High Dose 2018-08-07 Completed [facility] 00:00:00 [facility] Influenza High Dose 2018-08-07 Completed [facility] 00:00:00 [facility] Influenza High Dose 2018-08-07 Completed [facility] 00:00:00 [facility] Influenza High Dose 2018-08-07 Completed [facility] 00:00:00 [facility] Influenza High Dose 2018-08-07 Completed [facility] 00:00:00 [facility] Influenza High Dose 2018-08-07 Completed [facility] 00:00:00 [facility] Influenza High Dose 2018-08-07 Completed [facility] 00:00:00 [facility] Influenza High Dose 2018-08-07 Completed [facility] 00:00:00 [facility] Influenza High Dose 2018-08-07 Completed [facility] 00:00:00 [facility] Influenza High Dose 2018-08-07 Completed [facility] 00:00:00 [facility] Influenza High Dose 2018-08-07 Completed [facility] 00:00:00 [facility] Influenza High Dose 2018-08-07 Completed [facility] 00:00:00 [facility] Influenza High Dose 2018-08-07 Completed [facility] 00:00:00 [facility] Influenza High Dose 2018-08-07 Completed [facility] 00:00:00 [facility] Influenza High Dose 2018-08-07 Completed [facility] 00:00:00 [facility] Influenza High Dose 2018-08-07 Completed [facility] 00:00:00 [facility] Influenza High Dose 2018-08-07 Completed [facility] 00:00:00 [facility] Influenza High Dose 2018-08-07 Completed [facility] 00:00:00 [facility] Influenza High Dose 2018-08-07 Completed [facility] 00:00:00 [facility] Influenza High Dose 2018-08-07 Completed [facility] 00:00:00 [facility] Influenza High Dose 2018-08-07 Completed [facility] 00:00:00 [facility] Influenza High Dose 2018-08-07 Completed [facility] 00:00:00 [facility] Influenza High Dose 2018-08-07 Completed [facility] 00:00:00 [facility] Influenza High Dose 2018-08-07 Completed [facility] 00:00:00 [facility] Influenza High Dose 2018-08-07 Completed [facility] 00:00:00 [facility] Influenza High Dose 2018-08-07 Completed [facility] of 00:00:00 [facility] Influenza High Dose 2018-08-07 Completed [facility] of 00:00:00 [facility] Influenza High Dose 2018-08-07 Completed [facility] of 00:00:00 [facility] Influenza High Dose 2018-08-07 Completed [facility] 00:00:00 [facility] Influenza High Dose 2018-08-07 Completed [facility] 00:00:00 [facility] Influenza High Dose 2018-08-07 Completed [facility] 00:00:00 [facility] Influenza High Dose 2018-08-07 Completed [facility] 00:00:00 [facility] Influenza High Dose 2018-08-07 Completed [facility] 00:00:00 [facility] Influenza High Dose 2018-08-07 Completed [facility] 00:00:00 [facility] Influenza High Dose 2018-08-07 Completed [facility] 00:00:00 [facility] Influenza High Dose 2018-08-07 Completed [facility] 00:00:00 [facility] Influenza High Dose 2018-08-07 Completed [facility] 00:00:00 [facility] Influenza High Dose 2018-08-07 Completed [facility] 00:00:00 [facility] Influenza High Dose 2018-08-07 Completed [facility] 00:00:00 [facility] Influenza High Dose 2018-08-07 Completed [facility] 00:00:00 [facility] Influenza High Dose 2018-08-07 Completed [facility] 00:00:00 [facility] Influenza High Dose 2018-08-07 Completed [facility] 00:00:00 [facility] Influenza High Dose 2018-08-07 Completed [facility] 00:00:00 [facility] Influenza High Dose 2018-08-07 Completed [facility] 00:00:00 [facility] Influenza High Dose 2018-08-07 Completed [facility] 00:00:00 [facility] Influenza High Dose 2018-08-07 Completed [facility] 00:00:00 [facility] Influenza High Dose 2018-08-07 Completed [facility] 00:00:00 [facility] Influenza High Dose 2018-08-07 Completed [facility] 00:00:00 [facility] Influenza High Dose 2018-08-07 Completed [facility] 00:00:00 [facility] Influenza High Dose 2018-08-07 Completed [facility] 00:00:00 [facility] Influenza High Dose 2018-08-07 Completed [facility] 00:00:00 [facility] Influenza High Dose 2018-08-07 Completed [facility] 00:00:00 [facility] Influenza High Dose 2018-08-07 Completed [facility] 00:00:00 [facility] Influenza High Dose 2018-08-07 Completed [facility] 00:00:00 [facility] Influenza High Dose 2018-08-07 Completed [facility] 00:00:00 [facility] Influenza High Dose 2018-08-07 Completed [facility] 00:00:00 [facility] Influenza High Dose 2018-08-07 Completed [facility] 00:00:00 [facility] Influenza High Dose 2018-08-07 Completed [facility] 00:00:00 [facility] Influenza High Dose 2018-08-07 Completed [facility] 00:00:00 [facility] Influenza High Dose 2018-08-07 Completed [facility] 00:00:00 [facility] Influenza High Dose 2018-08-07 Completed [facility] 00:00:00 [facility] Influenza High Dose 2018-08-07 Completed [facility] 00:00:00 [facility] Influenza High Dose 2018-08-07 Completed [facility] 00:00:00 [facility] Influenza High Dose 2018-08-07 Completed [facility] 00:00:00 [facility] Influenza High Dose 2018-08-07 Completed [facility] 00:00:00 [facility] Influenza High Dose 2018-08-07 Completed [facility] 00:00:00 [facility] Influenza High Dose 2018-08-07 Completed [facility] 00:00:00 [facility] Influenza High Dose 2018-08-07 Completed [facility] 00:00:00 [facility] Influenza High Dose 2018-08-07 Completed [facility] 00:00:00 [facility] Influenza High Dose 2018-08-07 Completed [facility] 00:00:00 [facility] Influenza High Dose 2018-08-07 Completed [facility] 00:00:00 [facility] Influenza High Dose 2018-08-07 Completed [facility] 00:00:00 [facility] Influenza High Dose 2018-08-07 Completed [facility] 00:00:00 [facility] Influenza High Dose 2018-08-07 Completed [facility] 00:00:00 [facility] Influenza High Dose 2018-08-07 Completed [facility] 00:00:00 [facility] Influenza High Dose 2018-08-07 Completed [facility] 00:00:00 [facility] Influenza High Dose 2018-08-07 Completed [facility] 00:00:00 [facility] Influenza High Dose 2018-08-07 Completed [facility] 00:00:00 [facility] Influenza High Dose 2018-08-07 Completed [facility] 00:00:00 [facility] Influenza High Dose 2018-08-07 Completed [facility] 00:00:00 [facility] Influenza High Dose 2018-08-07 Completed [facility] 00:00:00 [facility] Influenza High Dose 2018-08-07 Completed [facility] 00:00:00 [facility] Influenza High Dose 2018-08-07 Completed [facility] 00:00:00 [facility] Influenza High Dose 2018-08-07 Completed [facility] 00:00:00 [facility] Influenza High Dose 2018-08-07 Completed [facility] 00:00:00 [facility] Influenza High Dose 2018-08-07 Completed [facility] 00:00:00 [facility] Influenza High Dose 2018-08-07 Completed [facility] 00:00:00 [facility] Influenza High Dose 2018-08-07 Completed [facility] 00:00:00 [facility] Influenza High Dose 2018-08-07 Completed [facility] 00:00:00 [facility] Influenza High Dose 2017-08-16 Completed [facility] 00:00:00 [facility] Influenza High Dose 2017-08-16 Completed [facility] 00:00:00 [facility] Influenza High Dose 2017-08-16 Completed [facility] 00:00:00 [facility] Influenza High Dose 2017-08-16 Completed [facility] 00:00:00 [facility] Influenza High Dose 2017-08-16 Completed [facility] 00:00:00 [facility] Influenza High Dose 2017-08-16 Completed [facility] 00:00:00 [facility] Influenza High Dose 2017-08-16 Completed [facility] 00:00:00 [facility] Influenza High Dose 2017-08-16 Completed [facility] 00:00:00 [facility] Influenza High Dose 2017-08-16 Completed [facility] 00:00:00 [facility] Influenza High Dose 2017-08-16 Completed [facility] 00:00:00 [facility] Influenza High Dose 2017-08-16 Completed [facility] 00:00:00 [facility] Influenza High Dose 2017-08-16 Completed [facility] 00:00:00 [facility] Influenza High Dose 2017-08-16 Completed [facility] 00:00:00 [facility] Influenza High Dose 2017-08-16 Completed [facility] 00:00:00 [facility] Influenza High Dose 2017-08-16 Completed [facility] 00:00:00 [facility] Influenza High Dose 2017-08-16 Completed [facility] 00:00:00 [facility] Influenza High Dose 2017-08-16 Completed [facility] 00:00:00 [facility] Influenza High Dose 2017-08-16 Completed [facility] 00:00:00 [facility] Influenza High Dose 2017-08-16 Completed [facility] 00:00:00 [facility] Influenza High Dose 2017-08-16 Completed [facility] 00:00:00 [facility] Influenza High Dose 2017-08-16 Completed [facility] 00:00:00 [facility] Influenza High Dose 2017-08-16 Completed [facility] 00:00:00 [facility] Influenza High Dose 2017-08-16 Completed [facility] 00:00:00 [facility] Influenza High Dose 2017-08-16 Completed [facility] 00:00:00 [facility] Influenza High Dose 2017-08-16 Completed [facility] 00:00:00 [facility] Influenza High Dose 2017-08-16 Completed [facility] 00:00:00 [facility] Influenza High Dose 2017-08-16 Completed [facility] 00:00:00 [facility] Influenza High Dose 2017-08-16 Completed [facility] 00:00:00 [facility] Influenza High Dose 2017-08-16 Completed [facility] 00:00:00 [facility] Influenza High Dose 2017-08-16 Completed [facility] 00:00:00 [facility] Influenza High Dose 2017-08-16 Completed [facility] 00:00:00 [facility] Influenza High Dose 2017-08-16 Completed [facility] 00:00:00 [facility] Influenza High Dose 2017-08-16 Completed [facility] 00:00:00 [facility] Influenza High Dose 2017-08-16 Completed [facility] 00:00:00 [facility] Influenza High Dose 2017-08-16 Completed [facility] 00:00:00 [facility] Influenza High Dose 2017-08-16 Completed [facility] 00:00:00 [facility] Influenza High Dose 2017-08-16 Completed [facility] 00:00:00 [facility] Influenza High Dose 2017-08-16 Completed [facility] 00:00:00 [facility] Influenza High Dose 2017-08-16 Completed [facility] 00:00:00 [facility] Influenza High Dose 2017-08-16 Completed [facility] 00:00:00 [facility] Influenza High Dose 2017-08-16 Completed [facility] 00:00:00 [facility] Influenza High Dose 2017-08-16 Completed [facility] 00:00:00 [facility] Influenza High Dose 2017-08-16 Completed [facility] 00:00:00 [facility] Influenza High Dose 2017-08-16 Completed [facility] 00:00:00 [facility] Influenza High Dose 2017-08-16 Completed [facility] 00:00:00 [facility] Influenza High Dose 2017-08-16 Completed [facility] 00:00:00 [facility] Influenza High Dose 2017-08-16 Completed [facility] 00:00:00 [facility] Influenza High Dose 2017-08-16 Completed [facility] 00:00:00 [facility] Influenza High Dose 2017-08-16 Completed [facility] 00:00:00 [facility] Influenza High Dose 2017-08-16 Completed [facility] 00:00:00 [facility] Influenza High Dose 2017-08-16 Completed [facility] 00:00:00 [facility] Influenza High Dose 2017-08-16 Completed [facility] 00:00:00 [facility] Influenza High Dose 2017-08-16 Completed [facility] 00:00:00 [facility] Influenza High Dose 2017-08-16 Completed [facility] 00:00:00 [facility] Influenza High Dose 2017-08-16 Completed [facility] 00:00:00 [facility] Influenza High Dose 2017-08-16 Completed [facility] 00:00:00 [facility] Influenza High Dose 2017-08-16 Completed [facility] 00:00:00 [facility] Influenza High Dose 2017-08-16 Completed [facility] 00:00:00 [facility] Influenza High Dose 2017-08-16 Completed [facility] 00:00:00 [facility] Influenza High Dose 2017-08-16 Completed [facility] 00:00:00 [facility] Influenza High Dose 2017-08-16 Completed [facility] 00:00:00 [facility] Influenza High Dose 2017-08-16 Completed [facility] 00:00:00 [facility] Influenza High Dose 2017-08-16 Completed [facility] 00:00:00 [facility] Influenza High Dose 2017-08-16 Completed [facility] 00:00:00 [facility] Influenza High Dose 2017-08-16 Completed [facility] 00:00:00 [facility] Influenza High Dose 2017-08-16 Completed [facility] 00:00:00 [facility] Influenza High Dose 2017-08-16 Completed [facility] 00:00:00 [facility] Influenza High Dose 2017-08-16 Completed [facility] 00:00:00 [facility] Influenza High Dose 2017-08-16 Completed [facility] 00:00:00 [facility] Influenza High Dose 2017-08-16 Completed [facility] 00:00:00 [facility] Influenza High Dose 2017-08-16 Completed [facility] 00:00:00 [facility] Influenza High Dose 2017-08-16 Completed [facility] 00:00:00 [facility] Influenza High Dose 2017-08-16 Completed [facility] 00:00:00 [facility] Influenza High Dose 2017-08-16 Completed [facility] 00:00:00 [facility] Influenza High Dose 2017-08-16 Completed [facility] 00:00:00 [facility] Influenza High Dose 2017-08-16 Completed [facility] 00:00:00 [facility] Influenza High Dose 2017-08-16 Completed [facility] 00:00:00 [facility] Influenza High Dose 2017-08-16 Completed [facility] 00:00:00 [facility] Influenza High Dose 2017-08-16 Completed [facility] 00:00:00 [facility] Influenza High Dose 2017-08-16 Completed [facility] 00:00:00 [facility] Influenza High Dose 2017-08-16 Completed [facility] 00:00:00 [facility] Influenza High Dose 2017-08-16 Completed [facility] 00:00:00 [facility] Influenza High Dose 2017-08-16 Completed [facility] 00:00:00 [facility] Influenza High Dose 2017-08-16 Completed [facility] 00:00:00 [facility] Influenza High Dose 2017-08-16 Completed [facility] 00:00:00 [facility] Influenza High Dose 2017-08-16 Completed [facility] 00:00:00 [facility] Influenza High Dose 2017-08-16 Completed [facility] 00:00:00 [facility] Influenza High Dose 2017-08-16 Completed [facility] 00:00:00 [facility] Influenza High Dose 2017-08-16 Completed [facility] 00:00:00 [facility] Influenza High Dose 2017-08-16 Completed [facility] 00:00:00 [facility] Influenza High Dose 2017-08-16 Completed [facility] 00:00:00 [facility] Influenza High Dose 2017-08-16 Completed [facility] 00:00:00 [facility] Influenza High Dose 2017-08-16 Completed [facility] 00:00:00 [facility] Influenza High Dose 2017-08-16 Completed [facility] 00:00:00 [facility] Influenza High Dose 2017-08-16 Completed [facility] 00:00:00 [facility] Influenza High Dose 2017-08-16 Completed [facility] 00:00:00 [facility] Influenza High Dose 2017-08-16 Completed [facility] 00:00:00 [facility] Influenza High Dose 2017-08-16 Completed [facility] 00:00:00 [facility] Influenza High Dose 2017-08-16 Completed [facility] 00:00:00 [facility] Influenza High Dose 2017-08-16 Completed [facility] 00:00:00 [facility] Influenza High Dose 2017-08-16 Completed [facility] 00:00:00 [facility] Influenza High Dose 2017-08-16 Completed [facility] 00:00:00 [facility] Influenza High Dose 2017-08-16 Completed [facility] 00:00:00 [facility] [facility] Influenza High Dose 2017-08-16 Completed [facility] 00:00:00 [facility] Influenza High Dose 2017-08-16 Completed [facility] 00:00:00 [facility] Influenza High Dose 2017-08-16 Completed [facility] 00:00:00 [facility] Influenza High Dose 2017-08-16 Completed [facility] 00:00:00 [facility] Influenza High Dose 2017-08-16 Completed [facility] 00:00:00 [facility] Influenza High Dose 2017-08-16 Completed [facility] 00:00:00 [facility] Influenza High Dose 2017-08-16 Completed [facility] 00:00:00 [facility] Influenza High Dose 2017-08-16 Completed [facility] 00:00:00 [facility] Influenza High Dose 2017-08-16 Completed [facility] 00:00:00 [facility] Influenza High Dose 2017-08-16 Completed [facility] 00:00:00 [facility] Influenza High Dose 2017-08-16 Completed [facility] 00:00:00 [facility] Influenza High Dose 2017-08-16 Completed [facility] 00:00:00 [facility] Influenza High Dose 2017-08-16 Completed [facility] 00:00:00 [facility] Influenza High Dose 2017-08-16 Completed [facility] 00:00:00 [facility] Influenza High Dose 2017-08-16 Completed [facility] 00:00:00 [facility] Influenza High Dose 2017-08-16 Completed [facility] 00:00:00 [facility] Influenza High Dose 2017-08-16 Completed [facility] 00:00:00 [facility] Influenza High Dose 2017-08-16 Completed [facility] 00:00:00 [facility] Influenza High Dose 2017-08-16 Completed [facility] 00:00:00 [facility] Influenza High Dose 2017-08-16 Completed [facility] 00:00:00 [facility] Influenza High Dose 2017-08-16 Completed [facility] 00:00:00 [facility] Influenza High Dose 2017-08-16 Completed [facility] 00:00:00 [facility] Influenza High Dose 2017-08-16 Completed [facility] 00:00:00 [facility] Influenza High Dose 2017-08-16 Completed [facility] 00:00:00 [facility] Influenza High Dose 2017-08-16 Completed [facility] 00:00:00 [facility] Influenza High Dose 2017-08-16 Completed [facility] 00:00:00 [facility] Influenza High Dose 2017-08-16 Completed [facility] 00:00:00 [facility] Influenza High Dose 2017-08-16 Completed [facility] 00:00:00 [facility] Influenza High Dose 2017-08-16 Completed [facility] 00:00:00 [facility] Influenza High Dose 2017-08-16 Completed [facility] 00:00:00 [facility] Influenza High Dose 2017-08-16 Completed [facility] 00:00:00 [facility] Influenza High Dose 2017-08-16 Completed [facility] 00:00:00 [facility] Influenza High Dose 2017-08-16 Completed [facility] 00:00:00 [facility] Influenza High Dose 2017-08-16 Completed [facility] 00:00:00 [facility] Influenza High Dose 2017-08-16 Completed [facility] 00:00:00 [facility] Influenza High Dose 2017-08-16 Completed [facility] 00:00:00 [facility] Influenza High Dose 2017-08-16 Completed [facility] 00:00:00 [facility] Influenza High Dose 2017-08-16 Completed [facility] 00:00:00 [facility] Influenza High Dose 2017-08-16 Completed [facility] 00:00:00 [facility] Influenza High Dose 2017-08-16 Completed [facility] 00:00:00 [facility] Influenza High Dose 2016-12-23 Completed [facility] 00:00:00 [facility] Pneumococcal 13 2016-12-23 Completed [facility] Conjugate, PCV13 00:00:00 [place] [facility] (Prevnar 13) [place] Influenza High Dose 2016-12-23 Completed [facility] 00:00:00 [facility] Pneumococcal 13 2016-12-23 Completed [facility] Conjugate, PCV13 00:00:00 [place] [facility] (Prevnar 13) [facility] Influenza High Dose 2016-12-23 Completed [facility] 00:00:00 [facility] Pneumococcal 13 2016-12-23 Completed [facility] Conjugate, PCV13 00:00:00 [place] [facility] (Prevnar 13) [facility] Influenza High Dose 2016-12-23 Completed [facility] 00:00:00 [facility] Pneumococcal 13 2016-12-23 Completed [facility] Conjugate, PCV13 00:00:00 [place] [facility] (Prevnar 13) [facility] Influenza High Dose 2016-12-23 Completed [facility] 00:00:00 [facility] Pneumococcal 13 2016-12-23 Completed [facility] Conjugate, PCV13 00:00:00 [place] [facility] (Prevnar 13) [facility] Influenza High Dose 2016-12-23 Completed [facility] 00:00:00 [facility] Pneumococcal 13 2016-12-23 Completed [facility] Conjugate, PCV13 00:00:00 [place] [facility] (Prevnar 13) [facility] Influenza High Dose 2016-12-23 Completed [facility] 00:00:00 [facility] Pneumococcal 13 2016-12-23 Completed [facility] Conjugate, PCV13 00:00:00 [place] [facility] (Prevnar 13) [facility] Influenza High Dose 2016-12-23 Completed [facility] 00:00:00 [facility] Pneumococcal 13 2016-12-23 Completed [facility] Conjugate, PCV13 00:00:00 [place] [facility] (Prevnar 13) [facility] Influenza High Dose 2016-12-23 Completed [facility] 00:00:00 [facility] Pneumococcal 13 2016-12-23 Completed [facility] Conjugate, PCV13 00:00:00 [place] [facility] (Prevnar 13) [facility] Influenza High Dose 2016-12-23 Completed [facility] 00:00:00 [facility] Pneumococcal 13 2016-12-23 Completed [facility] Conjugate, PCV13 00:00:00 [place] [facility] (Prevnar 13) [facility] Influenza High Dose 2016-12-23 Completed [facility] 00:00:00 [facility] Pneumococcal 13 2016-12-23 Completed [facility] Conjugate, PCV13 00:00:00 [place] [facility] (Prevnar 13) [facility] Influenza High Dose 2016-12-23 Completed [facility] 00:00:00 [facility] Pneumococcal 13 2016-12-23 Completed [facility] Conjugate, PCV13 00:00:00 [place] [facility] (Prevnar 13) [facility] Influenza High Dose 2016-12-23 Completed [facility] 00:00:00 [facility] Pneumococcal 13 2016-12-23 Completed [facility] Conjugate, PCV13 00:00:00 [place] [facility] (Prevnar 13) [facility] Influenza High Dose 2016-12-23 Completed [facility] 00:00:00 [facility] Pneumococcal 13 2016-12-23 Completed [facility] Conjugate, PCV13 00:00:00 [place] [facility] (Prevnar 13) [facility] Influenza High Dose 2016-12-23 Completed [facility] 00:00:00 [facility] Pneumococcal 13 2016-12-23 Completed [facility] Conjugate, PCV13 00:00:00 [place] [facility] (Prevnar 13) [facility] Influenza High Dose 2016-12-23 Completed [facility] 00:00:00 [facility] Pneumococcal 13 2016-12-23 Completed [facility] Conjugate, PCV13 00:00:00 [place] [facility] (Prevnar 13) [facility] Influenza High Dose 2016-12-23 Completed [facility] 00:00:00 [facility] Pneumococcal 13 2016-12-23 Completed [facility] Conjugate, PCV13 00:00:00 [place] [facility] (Prevnar 13) [facility] Influenza High Dose 2016-12-23 Completed [facility] 00:00:00 [facility] Pneumococcal 13 2016-12-23 Completed [facility] Conjugate, PCV13 00:00:00 [place] [facility] (Prevnar 13) [facility] Influenza High Dose 2016-12-23 Completed [facility] 00:00:00 [facility] Pneumococcal 13 2016-12-23 Completed [facility] Conjugate, PCV13 00:00:00 [place] [facility] (Prevnar 13) [facility] Influenza High Dose 2016-12-23 Completed [facility] 00:00:00 [facility] Pneumococcal 13 2016-12-23 Completed [facility] Conjugate, PCV13 00:00:00 [place] [facility] (Prevnar 13) [facility] Influenza High Dose 2016-12-23 Completed [facility] 00:00:00 [facility] Pneumococcal 13 2016-12-23 Completed [facility] Conjugate, PCV13 00:00:00 [place] [facility] (Prevnar 13) [facility] Influenza High Dose 2016-12-23 Completed [facility] 00:00:00 [facility] Pneumococcal 13 2016-12-23 Completed [facility] Conjugate, PCV13 00:00:00 [place] [facility] (Prevnar 13) [facility] Influenza High Dose 2016-12-23 Completed [facility] 00:00:00 [facility] Pneumococcal 13 2016-12-23 Completed [facility] Conjugate, PCV13 00:00:00 [place] [facility] (Prevnar 13) [facility] Influenza High Dose 2016-12-23 Completed [facility] 00:00:00 [facility] Pneumococcal 13 2016-12-23 Completed [facility] Conjugate, PCV13 00:00:00 [place] [facility] (Prevnar 13) [facility] Influenza High Dose 2016-12-23 Completed [facility] 00:00:00 [facility] Pneumococcal 13 2016-12-23 Completed [facility] Conjugate, PCV13 00:00:00 [place] [facility] (Prevnar 13) [facility] Influenza High Dose 2016-12-23 Completed [facility] 00:00:00 [facility] Pneumococcal 13 2016-12-23 Completed [facility] Conjugate, PCV13 00:00:00 [place] [facility] (Prevnar 13) [facility] Influenza High Dose 2016-12-23 Completed [facility] 00:00:00 [facility] Pneumococcal 13 2016-12-23 Completed [facility] Conjugate, PCV13 00:00:00 [place] [facility] (Prevnar 13) [facility] Influenza High Dose 2016-12-23 Completed [facility] 00:00:00 [facility] Pneumococcal 13 2016-12-23 Completed [facility] Conjugate, PCV13 00:00:00 [place] [facility] (Prevnar 13) [facility] Influenza High Dose 2016-12-23 Completed [facility] 00:00:00 [facility] Pneumococcal 13 2016-12-23 Completed [facility] Conjugate, PCV13 00:00:00 [place] [facility] (Prevnar 13) [facility] Influenza High Dose 2016-12-23 Completed [facility] 00:00:00 [facility] Pneumococcal 13 2016-12-23 Completed [facility] Conjugate, PCV13 00:00:00 [place] [facility] (Prevnar 13) [facility] Influenza High Dose 2016-12-23 Completed [facility] 00:00:00 [facility] Pneumococcal 13 2016-12-23 Completed [facility] Conjugate, PCV13 00:00:00 [place] [facility] (Prevnar 13) [facility] Influenza High Dose 2016-12-23 Completed [facility] 00:00:00 [facility] Pneumococcal 13 2016-12-23 Completed [facility] Conjugate, PCV13 00:00:00 [place] [facility] (Prevnar 13) [facility] Influenza High Dose 2016-12-23 Completed [facility] 00:00:00 [facility] Pneumococcal 13 2016-12-23 Completed [facility] Conjugate, PCV13 00:00:00 [place] [facility] (Prevnar 13) [facility] Influenza High Dose 2016-12-23 Completed [facility] 00:00:00 [facility] Pneumococcal 13 2016-12-23 Completed [facility] Conjugate, PCV13 00:00:00 [place] [facility] (Prevnar 13) [facility] Influenza High Dose 2016-12-23 Completed [facility] 00:00:00 [facility] Pneumococcal 13 2016-12-23 Completed [facility] Conjugate, PCV13 00:00:00 [place] [facility] (Prevnar 13) [facility] Influenza High Dose 2016-12-23 Completed [facility] 00:00:00 [facility] Pneumococcal 13 2016-12-23 Completed [facility] Conjugate, PCV13 00:00:00 [place] [facility] (Prevnar 13) [facility] Influenza High Dose 2016-12-23 Completed [facility] 00:00:00 [facility] Pneumococcal 13 2016-12-23 Completed [facility] Conjugate, PCV13 00:00:00 [place] [facility] (Prevnar 13) [facility] Influenza High Dose 2016-12-23 Completed [facility] 00:00:00 [facility] Pneumococcal 13 2016-12-23 Completed [facility] Conjugate, PCV13 00:00:00 [place] [facility] (Prevnar 13) [facility] Influenza High Dose 2016-12-23 Completed [facility] 00:00:00 [facility] Pneumococcal 13 2016-12-23 Completed [facility] Conjugate, PCV13 00:00:00 [place] [facility] (Prevnar 13) [facility] Influenza High Dose 2016-12-23 Completed [facility] 00:00:00 [facility] Pneumococcal 13 2016-12-23 Completed [facility] Conjugate, PCV13 00:00:00 [place] [facility] (Prevnar 13) [facility] Influenza High Dose 2016-12-23 Completed [facility] 00:00:00 [facility] Pneumococcal 13 2016-12-23 Completed [facility] Conjugate, PCV13 00:00:00 [place] [facility] (Prevnar 13) [facility] Influenza High Dose 2016-12-23 Completed [facility] 00:00:00 [facility] Pneumococcal 13 2016-12-23 Completed [facility] Conjugate, PCV13 00:00:00 [place] [facility] (Prevnar 13) [facility] Influenza High Dose 2016-12-23 Completed [facility] 00:00:00 [facility] Pneumococcal 13 2016-12-23 Completed [facility] Conjugate, PCV13 00:00:00 [place] [facility] (Prevnar 13) [facility] Influenza High Dose 2016-12-23 Completed [facility] 00:00:00 [facility] Pneumococcal 13 2016-12-23 Completed [facility] Conjugate, PCV13 00:00:00 [place] [facility] (Prevnar 13) [facility] Influenza High Dose 2016-12-23 Completed [facility] 00:00:00 [facility] Pneumococcal 13 2016-12-23 Completed [facility] Conjugate, PCV13 00:00:00 [place] [facility] (Prevnar 13) [facility] Influenza High Dose 2016-12-23 Completed [facility] 00:00:00 [facility] Pneumococcal 13 2016-12-23 Completed [facility] Conjugate, PCV13 00:00:00 [place] [facility] (Prevnar 13) [facility] Influenza High Dose 2016-12-23 Completed [facility] 00:00:00 [facility] Pneumococcal 13 2016-12-23 Completed [facility] Conjugate, PCV13 00:00:00 [place] [facility] (Prevnar 13) [facility] Influenza High Dose 2016-12-23 Completed [facility] 00:00:00 [facility] Pneumococcal 13 2016-12-23 Completed [facility] Conjugate, PCV13 00:00:00 [place] [facility] (Prevnar 13) [facility] Influenza High Dose 2016-12-23 Completed [facility] 00:00:00 [facility] Pneumococcal 13 2016-12-23 Completed [facility] Conjugate, PCV13 00:00:00 [place] [facility] (Prevnar 13) [facility] Influenza High Dose 2016-12-23 Completed [facility] 00:00:00 [facility] Pneumococcal 13 2016-12-23 Completed [facility] Conjugate, PCV13 00:00:00 [place] [facility] (Prevnar 13) [facility] Influenza High Dose 2016-12-23 Completed [facility] 00:00:00 [facility] Pneumococcal 13 2016-12-23 Completed [facility] Conjugate, PCV13 00:00:00 [place] [facility] (Prevnar 13) [facility] Influenza High Dose 2016-12-23 Completed [facility] 00:00:00 [facility] Pneumococcal 13 2016-12-23 Completed [facility] Conjugate, PCV13 00:00:00 [place] [facility] (Prevnar 13) [facility] Influenza High Dose 2016-12-23 Completed [facility] 00:00:00 [facility] Pneumococcal 13 2016-12-23 Completed [facility] Conjugate, PCV13 00:00:00 [place] [facility] (Prevnar 13) [facility] Influenza High Dose 2016-12-23 Completed [facility] 00:00:00 [facility] Pneumococcal 13 2016-12-23 Completed [facility] Conjugate, PCV13 00:00:00 [place] [facility] (Prevnar 13) [facility] Influenza High Dose 2016-12-23 Completed [facility] 00:00:00 [facility] Pneumococcal 13 2016-12-23 Completed [facility] Conjugate, PCV13 00:00:00 [place] [facility] (Prevnar 13) [facility] Influenza High Dose 2016-12-23 Completed [facility] 00:00:00 [facility] Pneumococcal 13 2016-12-23 Completed [facility] Conjugate, PCV13 00:00:00 [place] [facility] (Prevnar 13) [facility] Influenza High Dose 2016-12-23 Completed [facility] 00:00:00 [facility] Pneumococcal 13 2016-12-23 Completed [facility] Conjugate, PCV13 00:00:00 [place] [facility] (Prevnar 13) [facility] Influenza High Dose 2016-12-23 Completed [facility] 00:00:00 [facility] Pneumococcal 13 2016-12-23 Completed [facility] Conjugate, PCV13 00:00:00 [place] [facility] (Prevnar 13) [facility] Influenza High Dose 2016-12-23 Completed [facility] 00:00:00 [facility] Pneumococcal 13 2016-12-23 Completed [facility] Conjugate, PCV13 00:00:00 [place] [facility] (Prevnar 13) [facility] Influenza High Dose 2016-12-23 Completed [facility] 00:00:00 [facility] Pneumococcal 13 2016-12-23 Completed [facility] Conjugate, PCV13 00:00:00 [place] [facility] (Prevnar 13) [facility] Influenza High Dose 2016-12-23 Completed [facility] 00:00:00 [facility] Pneumococcal 13 2016-12-23 Completed [facility] Conjugate, PCV13 00:00:00 [place] [facility] (Prevnar 13) [facility] Influenza High Dose 2016-12-23 Completed [facility] 00:00:00 [facility] Pneumococcal 13 2016-12-23 Completed [facility] Conjugate, PCV13 00:00:00 [place] [facility] (Prevnar 13) [facility] Influenza High Dose 2016-12-23 Completed [facility] 00:00:00 [facility] Pneumococcal 13 2016-12-23 Completed [facility] Conjugate, PCV13 00:00:00 [place] [facility] (Prevnar 13) [facility] Influenza High Dose 2016-12-23 Completed [facility] 00:00:00 [facility] Pneumococcal 13 2016-12-23 Completed [facility] Conjugate, PCV13 00:00:00 [place] [facility] (Prevnar 13) [facility] Influenza High Dose 2016-12-23 Completed [facility] 00:00:00 [facility] Pneumococcal 13 2016-12-23 Completed [facility] Conjugate, PCV13 00:00:00 [place] [facility] (Prevnar 13) [facility] Influenza High Dose 2016-12-23 Completed [facility] 00:00:00 [facility] Pneumococcal 13 2016-12-23 Completed [facility] Conjugate, PCV13 00:00:00 [place] [facility] (Prevnar 13) [facility] Influenza High Dose 2016-12-23 Completed [facility] 00:00:00 [facility] Pneumococcal 13 2016-12-23 Completed [facility] Conjugate, PCV13 00:00:00 [place] [facility] (Prevnar 13) [facility] Influenza High Dose 2016-12-23 Completed [facility] 00:00:00 [facility] Pneumococcal 13 2016-12-23 Completed [facility] Conjugate, PCV13 00:00:00 [place] [facility] (Prevnar 13) [facility] Influenza High Dose 2016-12-23 Completed [facility] 00:00:00 [facility] Pneumococcal 13 2016-12-23 Completed [facility] Conjugate, PCV13 00:00:00 [place] [facility] (Prevnar 13) [facility] Influenza High Dose 2016-12-23 Completed [facility] 00:00:00 [facility] Pneumococcal 13 2016-12-23 Completed [facility] Conjugate, PCV13 00:00:00 [place] [facility] (Prevnar 13) [facility] Influenza High Dose 2016-12-23 Completed [facility] 00:00:00 [facility] Pneumococcal 13 2016-12-23 Completed [facility] Conjugate, PCV13 00:00:00 [place] [facility] (Prevnar 13) [facility] Influenza High Dose 2016-12-23 Completed [facility] 00:00:00 [facility] Pneumococcal 13 2016-12-23 Completed [facility] Conjugate, PCV13 00:00:00 [place] [facility] (Prevnar 13) [facility] Influenza High Dose 2016-12-23 Completed [facility] 00:00:00 [facility] Pneumococcal 13 2016-12-23 Completed [facility] Conjugate, PCV13 00:00:00 [place] [facility] (Prevnar 13) [facility] Influenza High Dose 2016-12-23 Completed [facility] 00:00:00 [facility] Pneumococcal 13 2016-12-23 Completed [facility] Conjugate, PCV13 00:00:00 [place] [facility] (Prevnar 13) [facility] Influenza High Dose 2016-12-23 Completed [facility] 00:00:00 [facility] Pneumococcal 13 2016-12-23 Completed [facility] Conjugate, PCV13 00:00:00 [place] [facility] (Prevnar 13) [facility] Influenza High Dose 2016-12-23 Completed [facility] 00:00:00 [facility] Pneumococcal 13 2016-12-23 Completed [facility] Conjugate, PCV13 00:00:00 [place] [facility] (Prevnar 13) [facility] Influenza High Dose 2016-12-23 Completed [facility] 00:00:00 [facility] Pneumococcal 13 2016-12-23 Completed [facility] Conjugate, PCV13 00:00:00 [place] [facility] (Prevnar 13) [facility] Influenza High Dose 2016-12-23 Completed [facility] 00:00:00 [facility] Pneumococcal 13 2016-12-23 Completed [facility] Conjugate, PCV13 00:00:00 [place] [facility] (Prevnar 13) [facility] Influenza High Dose 2016-12-23 Completed [facility] 00:00:00 [facility] Pneumococcal 13 2016-12-23 Completed [facility] Conjugate, PCV13 00:00:00 [place] [facility] (Prevnar 13) [facility] Influenza High Dose 2016-12-23 Completed [facility] 00:00:00 [facility] Pneumococcal 13 2016-12-23 Completed [facility] Conjugate, PCV13 00:00:00 [place] [facility] (Prevnar 13) [facility] Influenza High Dose 2016-12-23 Completed [facility] 00:00:00 [facility] Pneumococcal 13 2016-12-23 Completed [facility] Conjugate, PCV13 00:00:00 [place] [facility] (Prevnar 13) [facility] Influenza High Dose 2016-12-23 Completed [facility] 00:00:00 [facility] Pneumococcal 13 2016-12-23 Completed [facility] Conjugate, PCV13 00:00:00 [place] [facility] (Prevnar 13) [facility] Influenza High Dose 2016-12-23 Completed [facility] 00:00:00 [facility] Pneumococcal 13 2016-12-23 Completed [facility] Conjugate, PCV13 00:00:00 [place] [facility] (Prevnar 13) [facility] Influenza High Dose 2016-12-23 Completed [facility] 00:00:00 [facility] Pneumococcal 13 2016-12-23 Completed [facility] Conjugate, PCV13 00:00:00 [place] [facility] (Prevnar 13) [facility] Influenza High Dose 2016-12-23 Completed [facility] 00:00:00 [facility] Pneumococcal 13 2016-12-23 Completed [facility] Conjugate, PCV13 00:00:00 [place] [facility] (Prevnar 13) [facility] Influenza High Dose 2016-12-23 Completed [facility] 00:00:00 [facility] Pneumococcal 13 2016-12-23 Completed [facility] Conjugate, PCV13 00:00:00 [place] [facility] (Prevnar 13) [facility] Influenza High Dose 2016-12-23 Completed [facility] 00:00:00 [facility] Pneumococcal 13 2016-12-23 Completed [facility] Conjugate, PCV13 00:00:00 [place] [facility] (Prevnar 13) [facility] Influenza High Dose 2016-12-23 Completed [facility] 00:00:00 [facility] Pneumococcal 13 2016-12-23 Completed [facility] Conjugate, PCV13 00:00:00 [place] [facility] (Prevnar 13) [facility] Influenza High Dose 2016-12-23 Completed [facility] 00:00:00 [facility] Pneumococcal 13 2016-12-23 Completed [facility] Conjugate, PCV13 00:00:00 [place] [facility] (Prevnar 13) [facility] Influenza High Dose 2016-12-23 Completed [facility] 00:00:00 [facility] Pneumococcal 13 2016-12-23 Completed [facility] Conjugate, PCV13 00:00:00 [place] [facility] (Prevnar 13) [facility] Influenza High Dose 2016-12-23 Completed [facility] 00:00:00 [facility] Pneumococcal 13 2016-12-23 Completed [facility] Conjugate, PCV13 00:00:00 [place] [facility] (Prevnar 13) Branch Influenza High Dose 2016-12-23 Completed [facility] 00:00:00 [facility] Pneumococcal 13 2016-12-23 Completed [facility] Conjugate, PCV13 00:00:00 [place] [facility] (Prevnar 13) Branch Influenza High Dose 2016-12-23 Completed [facility] 00:00:00 [facility] Pneumococcal 13 2016-12-23 Completed [facility] Conjugate, PCV13 00:00:00 [place] [facility] (Prevnar 13) Branch Influenza High Dose 2016-12-23 Completed [facility] 00:00:00 [facility] Pneumococcal 13 2016-12-23 Completed [facility] of Conjugate, PCV13 00:00:00 [place] [facility] (Prevnar 13) Branch Influenza High Dose 2016-12-23 Completed [facility] 00:00:00 [facility] Pneumococcal 13 2016-12-23 Completed [facility] of Conjugate, PCV13 00:00:00 [place] [facility] (Prevnar 13) Branch Influenza High Dose 2016-12-23 Completed [facility] 00:00:00 [facility] Pneumococcal 13 2016-12-23 Completed [facility] of Conjugate, PCV13 00:00:00 [place] [facility] (Prevnar 13) Branch Influenza High Dose 2016-12-23 Completed [facility] 00:00:00 [facility] Pneumococcal 13 2016-12-23 Completed [facility] of Conjugate, PCV13 00:00:00 [place] [facility] (Prevnar 13) Branch Influenza High Dose 2016-12-23 Completed [facility] 00:00:00 [facility] Pneumococcal 13 2016-12-23 Completed [facility] of Conjugate, PCV13 00:00:00 [place] [facility] (Prevnar 13) Branch Influenza High Dose 2016-12-23 Completed [facility] 00:00:00 [facility] Pneumococcal 13 2016-12-23 Completed [facility] of Conjugate, PCV13 00:00:00 [place] [facility] (Prevnar 13) Branch Influenza High Dose 2016-12-23 Completed [facility] 00:00:00 [facility] Pneumococcal 13 2016-12-23 Completed [facility] of Conjugate, PCV13 00:00:00 [place] [facility] (Prevnar 13) Branch Influenza High Dose 2016-12-23 Completed [facility] 00:00:00 [facility] Pneumococcal 13 2016-12-23 Completed [facility] of Conjugate, PCV13 00:00:00 [place] [facility] (Prevnar 13) Branch Influenza High Dose 2016-12-23 Completed [facility] 00:00:00 [facility] Pneumococcal 13 2016-12-23 Completed [facility] of Conjugate, PCV13 00:00:00 [place] [facility] (Prevnar 13) Branch Influenza High Dose 2016-12-23 Completed [facility] 00:00:00 [facility] Pneumococcal 13 2016-12-23 Completed [facility] of Conjugate, PCV13 00:00:00 [place] [facility] (Prevnar 13) Branch Influenza High Dose 2016-12-23 Completed [facility] 00:00:00 [facility] Pneumococcal 13 2016-12-23 Completed [facility] of Conjugate, PCV13 00:00:00 [place] [facility] (Prevnar 13) Branch Influenza High Dose 2016-12-23 Completed [facility] 00:00:00 [facility] Pneumococcal 13 2016-12-23 Completed [facility] of Conjugate, PCV13 00:00:00 [place] [facility] (Prevnar 13) Branch Influenza High Dose 2016-12-23 Completed [facility] 00:00:00 [facility] Pneumococcal 13 2016-12-23 Completed [facility] of Conjugate, PCV13 00:00:00 [place] [facility] (Prevnar 13) Branch Influenza High Dose 2016-12-23 Completed [facility] 00:00:00 [facility] Pneumococcal 13 2016-12-23 Completed [facility] of Conjugate, PCV13 00:00:00 [place] [facility] (Prevnar 13) Branch Influenza High Dose 2016-12-23 Completed [facility] 00:00:00 [facility] Pneumococcal 13 2016-12-23 Completed [facility] of Conjugate, PCV13 00:00:00 [place] [facility] (Prevnar 13) Branch Influenza High Dose 2016-12-23 Completed [facility] 00:00:00 [facility] Pneumococcal 13 2016-12-23 Completed [facility] of Conjugate, PCV13 00:00:00 [place] [facility] (Prevnar 13) Branch Influenza High Dose 2016-12-23 Completed [facility] 00:00:00 [facility] Pneumococcal 13 2016-12-23 Completed [facility] of Conjugate, PCV13 00:00:00 [place] [facility] (Prevnar 13) Branch Influenza High Dose 2016-12-23 Completed [facility] 00:00:00 [facility] Pneumococcal 13 2016-12-23 Completed [facility] of Conjugate, PCV13 00:00:00 [place] [facility] (Prevnar 13) Branch Influenza High Dose 2016-12-23 Completed [facility] 00:00:00 [facility] Pneumococcal 13 2016-12-23 Completed [facility] of Conjugate, PCV13 00:00:00 [place] [facility] (Prevnar 13) Branch Influenza High Dose 2016-12-23 Completed [facility] 00:00:00 [facility] Pneumococcal 13 2016-12-23 Completed [facility] of Conjugate, PCV13 00:00:00 [place] [facility] (Prevnar 13) Branch Influenza High Dose 2016-12-23 Completed [facility] 00:00:00 [facility] Pneumococcal 13 2016-12-23 Completed [facility] of Conjugate, PCV13 00:00:00 [place] [facility] (Prevnar 13) Branch Influenza High Dose 2016-12-23 Completed [facility] 00:00:00 [facility] Pneumococcal 13 2016-12-23 Completed [facility] of Conjugate, PCV13 00:00:00 [place] [facility] (Prevnar 13) Branch Influenza High Dose 2016-12-23 Completed [facility] 00:00:00 [facility] Pneumococcal 13 2016-12-23 Completed [facility] of Conjugate, PCV13 00:00:00 [place] [facility] (Prevnar 13) Branch Influenza High Dose 2016-12-23 Completed [facility] 00:00:00 [facility] Pneumococcal 13 2016-12-23 Completed [facility] of Conjugate, PCV13 00:00:00 [place] [facility] (Prevnar 13) Branch Influenza High Dose 2016-12-23 Completed [facility] 00:00:00 [facility] Pneumococcal 13 2016-12-23 Completed [facility] of Conjugate, PCV13 00:00:00 [place] [facility] (Prevnar 13) Branch Influenza High Dose 2016-12-23 Completed [facility] 00:00:00 [facility] Pneumococcal 13 2016-12-23 Completed [facility] of Conjugate, PCV13 00:00:00 [place] [facility] (Prevnar 13) Branch Influenza High Dose 2016-12-23 Completed [facility] 00:00:00 [facility] Pneumococcal 13 2016-12-23 Completed [facility] of Conjugate, PCV13 00:00:00 [place] [facility] (Prevnar 13) Branch Influenza High Dose 2016-12-23 Completed [facility] 00:00:00 [facility] Pneumococcal 13 2016-12-23 Completed [facility] of Conjugate, PCV13 00:00:00 [place] [facility] (Prevnar 13) Branch Influenza High Dose 2016-12-23 Completed [facility] 00:00:00 [facility] Pneumococcal 13 2016-12-23 Completed [facility] of Conjugate, PCV13 00:00:00 [place] [facility] (Prevnar 13) Branch Influenza High Dose 2016-12-23 Completed [facility] 00:00:00 [facility] Pneumococcal 13 2016-12-23 Completed [facility] of Conjugate, PCV13 00:00:00 [place] [facility] (Prevnar 13) Branch Influenza High Dose 2016-12-23 Completed [facility] 00:00:00 [facility] Pneumococcal 13 2016-12-23 Completed [facility] of Conjugate, PCV13 00:00:00 [place] [facility] (Prevnar 13) Branch Influenza High Dose 2016-12-23 Completed [facility] 00:00:00 [facility] Pneumococcal 13 2016-12-23 Completed [facility] of Conjugate, PCV13 00:00:00 [place] [facility] (Prevnar 13) Branch Influenza High Dose 2016-12-23 Completed [facility] 00:00:00 [facility] Pneumococcal 13 2016-12-23 Completed [facility] of Conjugate, PCV13 00:00:00 [place] [facility] (Prevnar 13) Branch Influenza High Dose 2016-12-23 Completed [facility] 00:00:00 [facility] Pneumococcal 13 2016-12-23 Completed [facility] of Conjugate, PCV13 00:00:00 [place] [facility] (Prevnar 13) Branch Influenza High Dose 2016-12-23 Completed [facility] 00:00:00 [place] [facility] Pneumococcal 13 2016-12-23 Completed [facility] of Conjugate, PCV13 00:00:00 [place] [facility] (Prevnar 13) Branch Influenza High Dose 2016-12-23 Completed [facility] 00:00:00 [facility] Pneumococcal 13 2016-12-23 Completed [facility] of Conjugate, PCV13 00:00:00 [place] [facility] (Prevnar 13) Branch Influenza High Dose 2016-12-23 Completed [facility] 00:00:00 [facility] Pneumococcal 13 2016-12-23 Completed [facility] of Conjugate, PCV13 00:00:00 [place] [facility] (Prevnar 13) Branch Influenza High Dose 2016-12-23 Completed [facility] 00:00:00 [facility] Pneumococcal 13 2016-12-23 Completed [facility] of Conjugate, PCV13 00:00:00 [place] [facility] (Prevnar 13) Branch Influenza High Dose 2016-12-23 Completed [facility] 00:00:00 [facility] Pneumococcal 13 2016-12-23 Completed [facility] of Conjugate, PCV13 00:00:00 [place] [facility] (Prevnar 13) Branch Influenza High Dose 2016-12-23 Completed [facility] 00:00:00 [facility] Pneumococcal 13 2016-12-23 Completed [facility] of Conjugate, PCV13 00:00:00 [place] [facility] (Prevnar 13) Branch Influenza High Dose 2016-12-23 Completed [facility] 00:00:00 [facility] Pneumococcal 13 2016-12-23 Completed [facility] of Conjugate, PCV13 00:00:00 [place] [facility] (Prevnar 13) Branch Influenza High Dose 2016-12-23 Completed [facility] 00:00:00 [facility] Pneumococcal 13 2016-12-23 Completed [facility] of Conjugate, PCV13 00:00:00 [place] [facility] (Prevnar 13) Branch Influenza High Dose 2016-12-23 Completed [facility] 00:00:00 [facility] Pneumococcal 13 2016-12-23 Completed [facility] of Conjugate, PCV13 00:00:00 [place] [facility] (Prevnar 13) Branch Influenza High Dose 2016-12-23 Completed [facility] 00:00:00 [facility] Pneumococcal 13 2016-12-23 Completed [facility] of Conjugate, PCV13 00:00:00 [place] [facility] (Prevnar 13) Branch Influenza High Dose 2016-12-23 Completed [facility] 00:00:00 [facility] Pneumococcal 13 2016-12-23 Completed [facility] of Conjugate, PCV13 00:00:00 [place] [facility] (Prevnar 13) Branch Influenza High Dose 2016-12-23 Completed [facility] 00:00:00 [facility] Pneumococcal 13 2016-12-23 Completed [facility] of Conjugate, PCV13 00:00:00 [place] [facility] (Prevnar 13) Branch Influenza High Dose 2016-12-23 Completed [facility] 00:00:00 [facility] Pneumococcal 13 2016-12-23 Completed [facility] of Conjugate, PCV13 00:00:00 [place] [facility] (Prevnar 13) Branch Influenza High Dose 2016-12-23 Completed [facility] 00:00:00 [facility] Pneumococcal 13 2016-12-23 Completed [facility] of Conjugate, PCV13 00:00:00 [place] [facility] (Prevnar 13) Branch Influenza High Dose 2016-12-23 Completed [facility] 00:00:00 [facility] Pneumococcal 13 2016-12-23 Completed [facility] of Conjugate, PCV13 00:00:00 [place] [facility] (Prevnar 13) Branch Influenza High Dose 2016-12-23 Completed [facility] 00:00:00 [facility] Pneumococcal 13 2016-12-23 Completed [facility]it [facility] of Conjugate, PCV13 00:00:00 [facility] dical (Prevnar 13) Branch Pneumococcal 2015-10-08 Completed University o f Polysaccharide, 00:00:00 [place] [facility] PPSV23 (PNEUMOVAX) Branch Influenza Virus 2015-10-08 Completed [facility]it y of Vaccine Quad IM 3+ 00:00:00 [facility] Pneumococcal 2015-10-08 Completed University o f Polysaccharide, 00:00:00 [place] [facility] PPSV23 (PNEUMOVAX) Branch Influenza Virus 2015-10-08 Completed [facility]it y of Vaccine Quad IM 3+ 00:00:00 [facility] Pneumococcal 2015-10-08 Completed University o f Polysaccharide, 00:00:00 [place] [facility] PPSV23 (PNEUMOVAX) Branch Influenza Virus 2015-10-08 Completed [facility]it [facility] of Vaccine Quad IM 3+ 00:00:00 [facility] Pneumococcal 2015-10-08 Completed [facility] o f Polysaccharide, 00:00:00 [place] [facility] PPSV23 (PNEUMOVAX) Branch Influenza Virus 2015-10-08 Completed [facility]it y of Vaccine Quad IM 3+ 00:00:00 [facility] Pneumococcal 2015-10-08 Completed [facility] o f Polysaccharide, 00:00:00 [place] [facility] PPSV23 (PNEUMOVAX) Branch Influenza Virus 2015-10-08 Completed [facility] y of Vaccine Quad IM 3+ 00:00:00 [facility] Pneumococcal 2015-10-08 Completed [facility] o f Polysaccharide, 00:00:00 [place] [facility] PPSV23 (PNEUMOVAX) Branch Influenza Virus 2015-10-08 Completed [facility]it y of Vaccine Quad IM 3+ 00:00:00 [facility] Pneumococcal 2015-10-08 Completed [facility] o f Polysaccharide, 00:00:00 [place] [facility] PPSV23 (PNEUMOVAX) Branch Influenza Virus 2015-10-08 Completed [facility] y of Vaccine Quad IM 3+ 00:00:00 [facility] Pneumococcal 2015-10-08 Completed [facility] o f Polysaccharide, 00:00:00 [place] [facility] PPSV23 (PNEUMOVAX) Branch Influenza Virus 2015-10-08 Completed [facility] y of Vaccine Quad IM 3+ 00:00:00 [facility] Pneumococcal 2015-10-08 Completed [facility] o f Polysaccharide, 00:00:00 [place] [facility] PPSV23 (PNEUMOVAX) Branch Influenza Virus 2015-10-08 Completed [facility] y of Vaccine Quad IM 3+ 00:00:00 [facility] Pneumococcal 2015-10-08 Completed [facility] o f Polysaccharide, 00:00:00 [place] [facility] PPSV23 (PNEUMOVAX) Branch Influenza Virus 2015-10-08 Completed [facility] y of Vaccine Quad IM 3+ 00:00:00 [facility] Pneumococcal 2015-10-08 Completed [facility] o f Polysaccharide, 00:00:00 [place] [facility] PPSV23 (PNEUMOVAX) Branch Influenza Virus 2015-10-08 Completed [facility] of Vaccine Quad IM 3+ 00:00:00 [facility] Pneumococcal 2015-10-08 Completed [facility] o f Polysaccharide, 00:00:00 [place] [facility] PPSV23 (PNEUMOVAX) Branch Influenza Virus 2015-10-08 Completed [facility] y of Vaccine Quad IM 3+ 00:00:00 [facility] Pneumococcal 2015-10-08 Completed [facility] o f Polysaccharide, 00:00:00 [place] [facility] PPSV23 (PNEUMOVAX) Branch Influenza Virus 2015-10-08 Completed [facility] y of Vaccine Quad IM 3+ 00:00:00 [facility] Pneumococcal 2015-10-08 Completed [facility] o f Polysaccharide, 00:00:00 [place] [facility] PPSV23 (PNEUMOVAX) Branch Influenza Virus 2015-10-08 Completed [facility] of Vaccine Quad IM 3+ 00:00:00 [facility] Pneumococcal 2015-10-08 Completed [facility] o f Polysaccharide, 00:00:00 [place] [facility] PPSV23 (PNEUMOVAX) Branch Influenza Virus 2015-10-08 Completed [facility] of Vaccine Quad IM 3+ 00:00:00 [facility] Pneumococcal 2015-10-08 Completed [facility] o f Polysaccharide, 00:00:00 [place] [facility] PPSV23 (PNEUMOVAX) Branch Influenza Virus 2015-10-08 Completed [facility] of Vaccine Quad IM 3+ 00:00:00 [facility] Pneumococcal 2015-10-08 Completed [facility] o f Polysaccharide, 00:00:00 [place] [facility] PPSV23 (PNEUMOVAX) Branch Influenza Virus 2015-10-08 Completed [facility] of Vaccine Quad IM 3+ 00:00:00 [facility] Pneumococcal 2015-10-08 Completed [facility] o f Polysaccharide, 00:00:00 [place] [facility] PPSV23 (PNEUMOVAX) Branch Influenza Virus 2015-10-08 Completed [facility] of Vaccine Quad IM 3+ 00:00:00 [facility] Pneumococcal 2015-10-08 Completed [facility] o f Polysaccharide, 00:00:00 [place] [facility] PPSV23 (PNEUMOVAX) Branch Influenza Virus 2015-10-08 Completed [facility] of Vaccine Quad IM 3+ 00:00:00 [facility] Pneumococcal 2015-10-08 Completed [facility] o f Polysaccharide, 00:00:00 [place] [facility] PPSV23 (PNEUMOVAX) Branch Influenza Virus 2015-10-08 Completed [facility] of Vaccine Quad IM 3+ 00:00:00 [facility] Pneumococcal 2015-10-08 Completed [facility] o f Polysaccharide, 00:00:00 [place] [facility] PPSV23 (PNEUMOVAX) Branch Influenza Virus 2015-10-08 Completed [facility] of Vaccine Quad IM 3+ 00:00:00 [facility] Pneumococcal 2015-10-08 Completed [facility] o f Polysaccharide, 00:00:00 [place] [facility] PPSV23 (PNEUMOVAX) Branch Influenza Virus 2015-10-08 Completed [facility] of Vaccine Quad IM 3+ 00:00:00 [facility] Pneumococcal 2015-10-08 Completed [facility] o f Polysaccharide, 00:00:00 [place] [facility] PPSV23 (PNEUMOVAX) Branch Influenza Virus 2015-10-08 Completed [facility] of Vaccine Quad IM 3+ 00:00:00 [facility] Pneumococcal 2015-10-08 Completed [facility] o f Polysaccharide, 00:00:00 [place] [facility] PPSV23 (PNEUMOVAX) Branch Influenza Virus 2015-10-08 Completed [facility] y of Vaccine Quad IM 3+ 00:00:00 [facility] Pneumococcal 2015-10-08 Completed [facility] o f Polysaccharide, 00:00:00 [place] [facility] PPSV23 (PNEUMOVAX) Branch Influenza Virus 2015-10-08 Completed [facility] y of Vaccine Quad IM 3+ 00:00:00 [facility] Pneumococcal 2015-10-08 Completed [facility] o f Polysaccharide, 00:00:00 [place] [facility] PPSV23 (PNEUMOVAX) Branch Influenza Virus 2015-10-08 Completed [facility] of Vaccine Quad IM 3+ 00:00:00 [facility] Pneumococcal 2015-10-08 Completed [facility] o f Polysaccharide, 00:00:00 [place] [facility] PPSV23 (PNEUMOVAX) Branch Influenza Virus 2015-10-08 Completed [facility] of Vaccine Quad IM 3+ 00:00:00 [facility] Pneumococcal 2015-10-08 Completed [facility] o f Polysaccharide, 00:00:00 [place] [facility] PPSV23 (PNEUMOVAX) Branch Influenza Virus 2015-10-08 Completed [facility] y of Vaccine Quad IM 3+ 00:00:00 [facility] Pneumococcal 2015-10-08 Completed [facility] o f Polysaccharide, 00:00:00 [place] [facility] PPSV23 (PNEUMOVAX) Branch Influenza Virus 2015-10-08 Completed [facility] of Vaccine Quad IM 3+ 00:00:00 [facility] Pneumococcal 2015-10-08 Completed [facility] o f Polysaccharide, 00:00:00 [place] [facility] PPSV23 (PNEUMOVAX) Branch Influenza Virus 2015-10-08 Completed [facility] of Vaccine Quad IM 3+ 00:00:00 [facility] Pneumococcal 2015-10-08 Completed [facility] o f Polysaccharide, 00:00:00 [place] [facility] PPSV23 (PNEUMOVAX) Branch Influenza Virus 2015-10-08 Completed [facility] of Vaccine Quad IM 3+ 00:00:00 [facility] Pneumococcal 2015-10-08 Completed [facility] o f Polysaccharide, 00:00:00 [place] [facility] PPSV23 (PNEUMOVAX) Branch Influenza Virus 2015-10-08 Completed [facility] of Vaccine Quad IM 3+ 00:00:00 [facility] Pneumococcal 2015-10-08 Completed [facility] o f Polysaccharide, 00:00:00 [place] [facility] PPSV23 (PNEUMOVAX) Branch Influenza Virus 2015-10-08 Completed [facility] of Vaccine Quad IM 3+ 00:00:00 [facility] Pneumococcal 2015-10-08 Completed [facility] o f Polysaccharide, 00:00:00 [place] [facility] PPSV23 (PNEUMOVAX) Branch Influenza Virus 2015-10-08 Completed [facility] of Vaccine Quad IM 3+ 00:00:00 [facility] Pneumococcal 2015-10-08 Completed [facility] o f Polysaccharide, 00:00:00 [place] [facility] PPSV23 (PNEUMOVAX) Branch Influenza Virus 2015-10-08 Completed [facility] of Vaccine Quad IM 3+ 00:00:00 [facility] Pneumococcal 2015-10-08 Completed [facility] o f Polysaccharide, 00:00:00 [place] [facility] PPSV23 (PNEUMOVAX) Branch Influenza Virus 2015-10-08 Completed [facility] of Vaccine Quad IM 3+ 00:00:00 [facility] Pneumococcal 2015-10-08 Completed [facility] o f Polysaccharide, 00:00:00 [place] [facility] PPSV23 (PNEUMOVAX) Branch Influenza Virus 2015-10-08 Completed [facility] of Vaccine Quad IM 3+ 00:00:00 [facility] Pneumococcal 2015-10-08 Completed [facility] o f Polysaccharide, 00:00:00 [place] [facility] PPSV23 (PNEUMOVAX) Branch Influenza Virus 2015-10-08 Completed [facility] of Vaccine Quad IM 3+ 00:00:00 [facility] Pneumococcal 2015-10-08 Completed [facility] o f Polysaccharide, 00:00:00 [place] [facility] PPSV23 (PNEUMOVAX) Branch Influenza Virus 2015-10-08 Completed [facility] y of Vaccine Quad IM 3+ 00:00:00 [facility] Pneumococcal 2015-10-08 Completed [facility] o f Polysaccharide, 00:00:00 [place] [facility] PPSV23 (PNEUMOVAX) Branch Influenza Virus 2015-10-08 Completed [facility] y of Vaccine Quad IM 3+ 00:00:00 [facility] Pneumococcal 2015-10-08 Completed [facility] o f Polysaccharide, 00:00:00 [place] [facility] PPSV23 (PNEUMOVAX) Branch Influenza Virus 2015-10-08 Completed [facility] y of Vaccine Quad IM 3+ 00:00:00 [facility] Pneumococcal 2015-10-08 Completed [facility] o f Polysaccharide, 00:00:00 [place] [facility] PPSV23 (PNEUMOVAX) Branch Influenza Virus 2015-10-08 Completed [facility] of Vaccine Quad IM 3+ 00:00:00 [facility] Pneumococcal 2015-10-08 Completed [facility] o f Polysaccharide, 00:00:00 [place] [facility] PPSV23 (PNEUMOVAX) Branch Influenza Virus 2015-10-08 Completed [facility] of Vaccine Quad IM 3+ 00:00:00 [facility] Pneumococcal 2015-10-08 Completed [facility] o f Polysaccharide, 00:00:00 [place] [facility] PPSV23 (PNEUMOVAX) Branch Influenza Virus 2015-10-08 Completed [facility] of Vaccine Quad IM 3+ 00:00:00 [facility] Pneumococcal 2015-10-08 Completed [facility] o f Polysaccharide, 00:00:00 [place] [facility] PPSV23 (PNEUMOVAX) Branch Influenza Virus 2015-10-08 Completed [facility] of Vaccine Quad IM 3+ 00:00:00 [facility] Pneumococcal 2015-10-08 Completed [facility] o f Polysaccharide, 00:00:00 [place] [facility] PPSV23 (PNEUMOVAX) Branch Influenza Virus 2015-10-08 Completed [facility] of Vaccine Quad IM 3+ 00:00:00 [facility] Pneumococcal 2015-10-08 Completed [facility] o f Polysaccharide, 00:00:00 [place] [facility] PPSV23 (PNEUMOVAX) Branch Influenza Virus 2015-10-08 Completed [facility] of Vaccine Quad IM 3+ 00:00:00 [facility] Pneumococcal 2015-10-08 Completed [facility] o f Polysaccharide, 00:00:00 [place] [facility] PPSV23 (PNEUMOVAX) Branch Influenza Virus 2015-10-08 Completed [facility] of Vaccine Quad IM 3+ 00:00:00 [facility] Pneumococcal 2015-10-08 Completed [facility] o f Polysaccharide, 00:00:00 [place] [facility] PPSV23 (PNEUMOVAX) Branch Influenza Virus 2015-10-08 Completed [facility] of Vaccine Quad IM 3+ 00:00:00 [facility] Pneumococcal 2015-10-08 Completed [facility] o f Polysaccharide, 00:00:00 [place] [facility] PPSV23 (PNEUMOVAX) Branch Influenza Virus 2015-10-08 Completed [facility] of Vaccine Quad IM 3+ 00:00:00 [facility] Pneumococcal 2015-10-08 Completed [facility] o f Polysaccharide, 00:00:00 [place] [facility] PPSV23 (PNEUMOVAX) Branch Influenza Virus 2015-10-08 Completed [facility] of Vaccine Quad IM 3+ 00:00:00 [facility] Pneumococcal 2015-10-08 Completed [facility] o f Polysaccharide, 00:00:00 [place] [facility] PPSV23 (PNEUMOVAX) Branch Influenza Virus 2015-10-08 Completed [facility] of Vaccine Quad IM 3+ 00:00:00 [facility] Pneumococcal 2015-10-08 Completed [facility] o f Polysaccharide, 00:00:00 [place] [facility] PPSV23 (PNEUMOVAX) Branch Influenza Virus 2015-10-08 Completed [facility] of Vaccine Quad IM 3+ 00:00:00 [facility] Pneumococcal 2015-10-08 Completed [facility] o f Polysaccharide, 00:00:00 [place] [facility] PPSV23 (PNEUMOVAX) Branch Influenza Virus 2015-10-08 Completed [facility] of Vaccine Quad IM 3+ 00:00:00 [facility] Pneumococcal 2015-10-08 Completed [facility] o f Polysaccharide, 00:00:00 [place] [facility] PPSV23 (PNEUMOVAX) Branch Influenza Virus 2015-10-08 Completed [facility] of Vaccine Quad IM 3+ 00:00:00 [facility] Pneumococcal 2015-10-08 Completed [facility] o f Polysaccharide, 00:00:00 [place] [facility] PPSV23 (PNEUMOVAX) Branch Influenza Virus 2015-10-08 Completed [facility] y of Vaccine Quad IM 3+ 00:00:00 [facility] Pneumococcal 2015-10-08 Completed University o f Polysaccharide, 00:00:00 [place] [facility] PPSV23 (PNEUMOVAX) Branch Influenza Virus 2015-10-08 Completed Universit y of Vaccine Quad IM 3+ 00:00:00 [facility] Pneumococcal 2015-10-08 Completed [facility] o f Polysaccharide, 00:00:00 [place] [facility] PPSV23 (PNEUMOVAX) Branch Influenza Virus 2015-10-08 Completed [facility]it y of Vaccine Quad IM 3+ 00:00:00 [facility] Pneumococcal 2015-10-08 Completed [facility] o f Polysaccharide, 00:00:00 [place] [facility] PPSV23 (PNEUMOVAX) Branch Influenza Virus 2015-10-08 Completed [facility]it y of Vaccine Quad IM 3+ 00:00:00 [facility] Pneumococcal 2015-10-08 Completed [facility] o f Polysaccharide, 00:00:00 [place] [facility] PPSV23 (PNEUMOVAX) Branch Influenza Virus 2015-10-08 Completed [facility]it y of Vaccine Quad IM 3+ 00:00:00 [facility] Pneumococcal 2015-10-08 Completed [facility] o f Polysaccharide, 00:00:00 [place] [facility] PPSV23 (PNEUMOVAX) Branch Influenza Virus 2015-10-08 Completed [facility]it y of Vaccine Quad IM 3+ 00:00:00 [facility] Pneumococcal 2015-10-08 Completed [facility] o f Polysaccharide, 00:00:00 [place] [facility] PPSV23 (PNEUMOVAX) Branch Influenza Virus 2015-10-08 Completed [facility]it y of Vaccine Quad IM 3+ 00:00:00 [facility] Pneumococcal 2015-10-08 Completed [facility] o f Polysaccharide, 00:00:00 [place] [facility] PPSV23 (PNEUMOVAX) Branch Influenza Virus 2015-10-08 Completed [facility]it y of Vaccine Quad IM 3+ 00:00:00 [facility] Pneumococcal 2015-10-08 Completed [facility] o f Polysaccharide, 00:00:00 [place] [facility] PPSV23 (PNEUMOVAX) Branch Influenza Virus 2015-10-08 Completed [facility]it y of Vaccine Quad IM 3+ 00:00:00 [facility] Pneumococcal 2015-10-08 Completed [facility] o f Polysaccharide, 00:00:00 [place] [facility] PPSV23 (PNEUMOVAX) Branch Influenza Virus 2015-10-08 Completed [facility] y of Vaccine Quad IM 3+ 00:00:00 [facility] Pneumococcal 2015-10-08 Completed [facility] o f Polysaccharide, 00:00:00 [place] [facility] PPSV23 (PNEUMOVAX) Branch Influenza Virus 2015-10-08 Completed [facility]it y of Vaccine Quad IM 3+ 00:00:00 [facility] Pneumococcal 2015-10-08 Completed [facility] o f Polysaccharide, 00:00:00 [place] [facility] PPSV23 (PNEUMOVAX) Branch Influenza Virus 2015-10-08 Completed [facility]it y of Vaccine Quad IM 3+ 00:00:00 [facility] Pneumococcal 2015-10-08 Completed [facility] o f Polysaccharide, 00:00:00 [place] [facility] PPSV23 (PNEUMOVAX) Branch Influenza Virus 2015-10-08 Completed [facility]it y of Vaccine Quad IM 3+ 00:00:00 [facility] Pneumococcal 2015-10-08 Completed [facility] o f Polysaccharide, 00:00:00 [place] [facility] PPSV23 (PNEUMOVAX) Branch Influenza Virus 2015-10-08 Completed [facility]it y of Vaccine Quad IM 3+ 00:00:00 [facility] Pneumococcal 2015-10-08 Completed [facility] o f Polysaccharide, 00:00:00 [place] [facility] PPSV23 (PNEUMOVAX) Branch Influenza Virus 2015-10-08 Completed [facility]it y of Vaccine Quad IM 3+ 00:00:00 [facility] Pneumococcal 2015-10-08 Completed [facility] o f Polysaccharide, 00:00:00 [place] [facility] PPSV23 (PNEUMOVAX) Branch Influenza Virus 2015-10-08 Completed [facility]it y of Vaccine Quad IM 3+ 00:00:00 [facility] Pneumococcal 2015-10-08 Completed [facility] o f Polysaccharide, 00:00:00 [place] [facility] PPSV23 (PNEUMOVAX) Branch Influenza Virus 2015-10-08 Completed [facility]it y of Vaccine Quad IM 3+ 00:00:00 [facility] Pneumococcal 2015-10-08 Completed [facility] o f Polysaccharide, 00:00:00 [place] [facility] PPSV23 (PNEUMOVAX) Branch Influenza Virus 2015-10-08 Completed [facility]it y of Vaccine Quad IM 3+ 00:00:00 [facility] Pneumococcal 2015-10-08 Completed [facility] o f Polysaccharide, 00:00:00 [place] [facility] PPSV23 (PNEUMOVAX) Branch Influenza Virus 2015-10-08 Completed [facility]it y of Vaccine Quad IM 3+ 00:00:00 [facility] Pneumococcal 2015-10-08 Completed [facility] o f Polysaccharide, 00:00:00 [place] [facility] PPSV23 (PNEUMOVAX) Branch Influenza Virus 2015-10-08 Completed [facility]it y of Vaccine Quad IM 3+ 00:00:00 [facility] Pneumococcal 2015-10-08 Completed [facility] o f Polysaccharide, 00:00:00 [place] [facility] PPSV23 (PNEUMOVAX) Branch Influenza Virus 2015-10-08 Completed [facility]it y of Vaccine Quad IM 3+ 00:00:00 [facility] Pneumococcal 2015-10-08 Completed [facility] o f Polysaccharide, 00:00:00 [place] [facility] PPSV23 (PNEUMOVAX) Branch Influenza Virus 2015-10-08 Completed [facility]it y of Vaccine Quad IM 3+ 00:00:00 [facility] Pneumococcal 2015-10-08 Completed [facility] o f Polysaccharide, 00:00:00 [place] [facility] PPSV23 (PNEUMOVAX) Branch Influenza Virus 2015-10-08 Completed [facility] y of Vaccine Quad IM 3+ 00:00:00 [facility] Pneumococcal 2015-10-08 Completed [facility] o f Polysaccharide, 00:00:00 [place] [facility] PPSV23 (PNEUMOVAX) Branch Influenza Virus 2015-10-08 Completed [facility] y of Vaccine Quad IM 3+ 00:00:00 [facility] Pneumococcal 2015-10-08 Completed [facility] o f Polysaccharide, 00:00:00 [place] [facility] PPSV23 (PNEUMOVAX) Branch Influenza Virus 2015-10-08 Completed [facility] of Vaccine Quad IM 3+ 00:00:00 [facility] Pneumococcal 2015-10-08 Completed [facility] o f Polysaccharide, 00:00:00 [place] [facility] PPSV23 (PNEUMOVAX) Branch Influenza Virus 2015-10-08 Completed [facility]it y of Vaccine Quad IM 3+ 00:00:00 [facility] Pneumococcal 2015-10-08 Completed [facility] o f Polysaccharide, 00:00:00 [place] [facility] PPSV23 (PNEUMOVAX) Branch Influenza Virus 2015-10-08 Completed [facility] of Vaccine Quad IM 3+ 00:00:00 [facility] Pneumococcal 2015-10-08 Completed [facility] o f Polysaccharide, 00:00:00 [place] [facility] PPSV23 (PNEUMOVAX) Branch Influenza Virus 2015-10-08 Completed [facility]it [facility] of Vaccine Quad IM 3+ 00:00:00 [facility] Pneumococcal 2015-10-08 Completed [facility] o f Polysaccharide, 00:00:00 [place] [facility] PPSV23 (PNEUMOVAX) Branch Influenza Virus 2015-10-08 Completed [facility] of Vaccine Quad IM 3+ 00:00:00 [facility] Pneumococcal 2015-10-08 Completed [facility] o f Polysaccharide, 00:00:00 [place] [facility] PPSV23 (PNEUMOVAX) Branch Influenza Virus 2015-10-08 Completed [facility]it y of Vaccine Quad IM 3+ 00:00:00 [facility] Pneumococcal 2015-10-08 Completed [facility] o f Polysaccharide, 00:00:00 [place] [facility] PPSV23 (PNEUMOVAX) Branch Influenza Virus 2015-10-08 Completed [facility] y of Vaccine Quad IM 3+ 00:00:00 [facility] Pneumococcal 2015-10-08 Completed [facility] o f Polysaccharide, 00:00:00 [place] [facility] PPSV23 (PNEUMOVAX) Branch Influenza Virus 2015-10-08 Completed [facility] y of Vaccine Quad IM 3+ 00:00:00 [facility] Pneumococcal 2015-10-08 Completed [facility] o f Polysaccharide, 00:00:00 [place] [facility] PPSV23 (PNEUMOVAX) Branch Influenza Virus 2015-10-08 Completed [facility] y of Vaccine Quad IM 3+ 00:00:00 [facility] Pneumococcal 2015-10-08 Completed [facility] o f Polysaccharide, 00:00:00 [place] [facility] PPSV23 (PNEUMOVAX) Branch Influenza Virus 2015-10-08 Completed [facility] y of Vaccine Quad IM 3+ 00:00:00 [facility] Pneumococcal 2015-10-08 Completed [facility] o f Polysaccharide, 00:00:00 [place] [facility] PPSV23 (PNEUMOVAX) Branch Influenza Virus 2015-10-08 Completed [facility] y of Vaccine Quad IM 3+ 00:00:00 [facility] Pneumococcal 2015-10-08 Completed [facility] o f Polysaccharide, 00:00:00 [place] [facility] PPSV23 (PNEUMOVAX) Branch Influenza Virus 2015-10-08 Completed [facility] y of Vaccine Quad IM 3+ 00:00:00 [facility] Pneumococcal 2015-10-08 Completed [facility] o f Polysaccharide, 00:00:00 [place] [facility] PPSV23 (PNEUMOVAX) Branch Influenza Virus 2015-10-08 Completed [facility]it y of Vaccine Quad IM 3+ 00:00:00 [facility] Pneumococcal 2015-10-08 Completed [facility] o f Polysaccharide, 00:00:00 [place] [facility] PPSV23 (PNEUMOVAX) Branch Influenza Virus 2015-10-08 Completed [facility]it y of Vaccine Quad IM 3+ 00:00:00 [facility] Pneumococcal 2015-10-08 Completed [facility] o f Polysaccharide, 00:00:00 [place] [facility] PPSV23 (PNEUMOVAX) Branch Influenza Virus 2015-10-08 Completed [facility] y of Vaccine Quad IM 3+ 00:00:00 [facility] Pneumococcal 2015-10-08 Completed [facility] o f Polysaccharide, 00:00:00 [place] [facility] PPSV23 (PNEUMOVAX) Branch Influenza Virus 2015-10-08 Completed [facility] y of Vaccine Quad IM 3+ 00:00:00 [facility] Pneumococcal 2015-10-08 Completed [facility] o f Polysaccharide, 00:00:00 [place] [facility] PPSV23 (PNEUMOVAX) Branch Influenza Virus 2015-10-08 Completed [facility]it y of Vaccine Quad IM 3+ 00:00:00 [facility] Pneumococcal 2015-10-08 Completed [facility] o f Polysaccharide, 00:00:00 [place] [facility] PPSV23 (PNEUMOVAX) Branch Influenza Virus 2015-10-08 Completed [facility]it y of Vaccine Quad IM 3+ 00:00:00 [facility] Pneumococcal 2015-10-08 Completed [facility] o f Polysaccharide, 00:00:00 [place] [facility] PPSV23 (PNEUMOVAX) Branch Influenza Virus 2015-10-08 Completed [facility]it y of Vaccine Quad IM 3+ 00:00:00 [facility] Pneumococcal 2015-10-08 Completed [facility] o f Polysaccharide, 00:00:00 [place] [facility] PPSV23 (PNEUMOVAX) Branch Influenza Virus 2015-10-08 Completed [facility]it y of Vaccine Quad IM 3+ 00:00:00 [facility] Pneumococcal 2015-10-08 Completed [facility] o f Polysaccharide, 00:00:00 [place] [facility] PPSV23 (PNEUMOVAX) Branch Influenza Virus 2015-10-08 Completed [facility] y of Vaccine Quad IM 3+ 00:00:00 [facility] Pneumococcal 2015-10-08 Completed [facility] o f Polysaccharide, 00:00:00 [place] [facility] PPSV23 (PNEUMOVAX) Branch Influenza Virus 2015-10-08 Completed [facility]it y of Vaccine Quad IM 3+ 00:00:00 [facility] Pneumococcal 2015-10-08 Completed [facility] o f Polysaccharide, 00:00:00 [place] [facility] PPSV23 (PNEUMOVAX) Branch Influenza Virus 2015-10-08 Completed [facility] y of Vaccine Quad IM 3+ 00:00:00 [facility] Pneumococcal 2015-10-08 Completed [facility] o f Polysaccharide, 00:00:00 [place] [facility] PPSV23 (PNEUMOVAX) Branch Influenza Virus 2015-10-08 Completed [facility] y of Vaccine Quad IM 3+ 00:00:00 [facility] Pneumococcal 2015-10-08 Completed [facility] o f Polysaccharide, 00:00:00 [place] [facility] PPSV23 (PNEUMOVAX) Branch Influenza Virus 2015-10-08 Completed [facility] y of Vaccine Quad IM 3+ 00:00:00 [facility] Pneumococcal 2015-10-08 Completed [facility] o f Polysaccharide, 00:00:00 [place] [facility] PPSV23 (PNEUMOVAX) Branch Influenza Virus 2015-10-08 Completed [facility] y of Vaccine Quad IM 3+ 00:00:00 [facility] Pneumococcal 2015-10-08 Completed [facility] o f Polysaccharide, 00:00:00 [place] [facility] PPSV23 (PNEUMOVAX) Branch Influenza Virus 2015-10-08 Completed [facility] y of Vaccine Quad IM 3+ 00:00:00 [facility] Pneumococcal 2015-10-08 Completed [facility] o f Polysaccharide, 00:00:00 [place] [facility] PPSV23 (PNEUMOVAX) Branch Influenza Virus 2015-10-08 Completed [facility] y of Vaccine Quad IM 3+ 00:00:00 [facility] Pneumococcal 2015-10-08 Completed [facility] o f Polysaccharide, 00:00:00 [place] [facility] PPSV23 (PNEUMOVAX) Branch Influenza Virus 2015-10-08 Completed [facility] y of Vaccine Quad IM 3+ 00:00:00 [facility] Pneumococcal 2015-10-08 Completed [facility] o f Polysaccharide, 00:00:00 [place] [facility] PPSV23 (PNEUMOVAX) Branch Influenza Virus 2015-10-08 Completed [facility] y of Vaccine Quad IM 3+ 00:00:00 [facility] Pneumococcal 2015-10-08 Completed [facility] o f Polysaccharide, 00:00:00 [place] [facility] PPSV23 (PNEUMOVAX) Branch Influenza Virus 2015-10-08 Completed [facility] y of Vaccine Quad IM 3+ 00:00:00 [facility] Pneumococcal 2015-10-08 Completed [facility] o f Polysaccharide, 00:00:00 [place] [facility] PPSV23 (PNEUMOVAX) Branch Influenza Virus 2015-10-08 Completed [facility] y of Vaccine Quad IM 3+ 00:00:00 [facility] Pneumococcal 2015-10-08 Completed [facility] o f Polysaccharide, 00:00:00 [place] [facility] PPSV23 (PNEUMOVAX) Branch Influenza Virus 2015-10-08 Completed [facility] y of Vaccine Quad IM 3+ 00:00:00 [facility] Pneumococcal 2015-10-08 Completed [facility] o f Polysaccharide, 00:00:00 [place] [facility] PPSV23 (PNEUMOVAX) Branch Influenza Virus 2015-10-08 Completed [facility] y of Vaccine Quad IM 3+ 00:00:00 [facility] Pneumococcal 2015-10-08 Completed [facility] o f Polysaccharide, 00:00:00 [place] [facility] PPSV23 (PNEUMOVAX) Branch Influenza Virus 2015-10-08 Completed [facility] y of Vaccine Quad IM 3+ 00:00:00 [facility] Pneumococcal 2015-10-08 Completed [facility] o f Polysaccharide, 00:00:00 [place] [facility] PPSV23 (PNEUMOVAX) Branch Influenza Virus 2015-10-08 Completed [facility] y of Vaccine Quad IM 3+ 00:00:00 [facility] Pneumococcal 2015-10-08 Completed [facility] o f Polysaccharide, 00:00:00 [place] [facility] PPSV23 (PNEUMOVAX) Branch Influenza Virus 2015-10-08 Completed [facility] y of Vaccine Quad IM 3+ 00:00:00 [facility] Pneumococcal 2015-10-08 Completed [facility] o f Polysaccharide, 00:00:00 [place] [facility] PPSV23 (PNEUMOVAX) Branch Influenza Virus 2015-10-08 Completed [facility] y of Vaccine Quad IM 3+ 00:00:00 [facility] Pneumococcal 2015-10-08 Completed [facility] o f Polysaccharide, 00:00:00 [place] [facility] PPSV23 (PNEUMOVAX) Branch Influenza Virus 2015-10-08 Completed [facility] of Vaccine Quad IM 3+ 00:00:00 [facility] Pneumococcal 2015-10-08 Completed [facility] o f Polysaccharide, 00:00:00 [place] [facility] PPSV23 (PNEUMOVAX) Branch Influenza Virus 2015-10-08 Completed [facility] y of Vaccine Quad IM 3+ 00:00:00 [facility] Pneumococcal 2015-10-08 Completed [facility] o f Polysaccharide, 00:00:00 [place] [facility] PPSV23 (PNEUMOVAX) Branch Influenza Virus 2015-10-08 Completed [facility] of Vaccine Quad IM 3+ 00:00:00 [facility] Pneumococcal 2015-10-08 Completed [facility] o f Polysaccharide, 00:00:00 [place] [facility] PPSV23 (PNEUMOVAX) Branch Influenza Virus 2015-10-08 Completed [facility] y of Vaccine Quad IM 3+ 00:00:00 [facility] Pneumococcal 2015-10-08 Completed [facility] o f Polysaccharide, 00:00:00 [place] [facility] PPSV23 (PNEUMOVAX) Branch Influenza Virus 2015-10-08 Completed [facility] y of Vaccine Quad IM 3+ 00:00:00 [facility] Pneumococcal 2015-10-08 Completed [facility] o f Polysaccharide, 00:00:00 [place] [facility] PPSV23 (PNEUMOVAX) Branch Influenza Virus 2015-10-08 Completed [facility] of Vaccine Quad IM 3+ 00:00:00 [facility] Pneumococcal 2015-10-08 Completed [facility] o f Polysaccharide, 00:00:00 [place] [facility] PPSV23 (PNEUMOVAX) Branch Influenza Virus 2015-10-08 Completed [facility] y of Vaccine Quad IM 3+ 00:00:00 [facility] Pneumococcal 2015-10-08 Completed [facility] o f Polysaccharide, 00:00:00 [place] [facility] PPSV23 (PNEUMOVAX) Branch Influenza Virus 2015-10-08 Completed [facility] y of Vaccine Quad IM 3+ 00:00:00 [facility] Pneumococcal 2015-10-08 Completed [facility] o f Polysaccharide, 00:00:00 [place] [facility] PPSV23 (PNEUMOVAX) Branch Influenza Virus 2015-10-08 Completed [facility] of Vaccine Quad IM 3+ 00:00:00 [facility] Pneumococcal 2015-10-08 Completed [facility] o f Polysaccharide, 00:00:00 [place] [facility] PPSV23 (PNEUMOVAX) Branch Influenza Virus 2015-10-08 Completed [facility] y of Vaccine Quad IM 3+ 00:00:00 [facility] Pneumococcal 2015-10-08 Completed [facility] o f Polysaccharide, 00:00:00 [place] [facility] PPSV23 (PNEUMOVAX) Branch Influenza Virus 2015-10-08 Completed [facility] of Vaccine Quad IM 3+ 00:00:00 [facility] Pneumococcal 2015-10-08 Completed [facility] o f Polysaccharide, 00:00:00 [place] [facility] PPSV23 (PNEUMOVAX) Branch Influenza Virus 2015-10-08 Completed [facility] of Vaccine Quad IM 3+ 00:00:00 [facility] Pneumococcal 2015-10-08 Completed [facility] o f Polysaccharide, 00:00:00 [place] [facility] PPSV23 (PNEUMOVAX) Branch Influenza Virus 2015-10-08 Completed [facility] y of Vaccine Quad IM 3+ 00:00:00 [facility] Pneumococcal 2015-10-08 Completed [facility] o f Polysaccharide, 00:00:00 [place] [facility] PPSV23 (PNEUMOVAX) Branch Influenza Virus 2015-10-08 Completed [facility] y of Vaccine Quad IM 3+ 00:00:00 [facility] Pneumococcal 2015-10-08 Completed [facility] o f Polysaccharide, 00:00:00 [place] [facility] PPSV23 (PNEUMOVAX) Branch Influenza Virus 2015-10-08 Completed [facility] of Vaccine Quad IM 3+ 00:00:00 [facility] Pneumococcal 2015-10-08 Completed [facility] o f Polysaccharide, 00:00:00 [place] [facility] PPSV23 (PNEUMOVAX) Branch Influenza Virus 2015-10-08 Completed [facility] of Vaccine Quad IM 3+ 00:00:00 [facility] Pneumococcal 2015-10-08 Completed [facility] o f Polysaccharide, 00:00:00 [place] [facility] PPSV23 (PNEUMOVAX) Branch Influenza Virus 2015-10-08 Completed [facility] of Vaccine Quad IM 3+ 00:00:00 [facility] Pneumococcal 2015-10-08 Completed [facility] o f Polysaccharide, 00:00:00 [place] [facility] PPSV23 (PNEUMOVAX) Branch Influenza Virus 2015-10-08 Completed [facility] y of Vaccine Quad IM 3+ 00:00:00 [facility] Pneumococcal 2015-10-08 Completed [facility] o f Polysaccharide, 00:00:00 [place] [facility] PPSV23 (PNEUMOVAX) Branch Influenza Virus 2015-10-08 Completed [facility] of Vaccine Quad IM 3+ 00:00:00 [facility] Pneumococcal 2015-10-08 Completed [facility] o f Polysaccharide, 00:00:00 [place] [facility] PPSV23 (PNEUMOVAX) Branch Influenza Virus 2015-10-08 Completed [facility] of Vaccine Quad IM 3+ 00:00:00 [facility] Pneumococcal 2015-10-08 Completed [facility] o f Polysaccharide, 00:00:00 [place] [facility] PPSV23 (PNEUMOVAX) Branch Influenza Virus 2015-10-08 Completed [facility] of Vaccine Quad IM 3+ 00:00:00 [facility] Pneumococcal 2015-10-08 Completed [facility] o f Polysaccharide, 00:00:00 [place] [facility] PPSV23 (PNEUMOVAX) Branch Influenza Virus 2015-10-08 Completed [facility] of Vaccine Quad IM 3+ 00:00:00 [facility] Pneumococcal 2015-10-08 Completed [facility] o f Polysaccharide, 00:00:00 [place] [facility] PPSV23 (PNEUMOVAX) Branch Influenza Virus 2015-10-08 Completed [facility] of Vaccine Quad IM 3+ 00:00:00 [facility] Pneumococcal 2015-10-08 Completed [facility] o f Polysaccharide, 00:00:00 [place] [facility] PPSV23 (PNEUMOVAX) Branch Influenza Virus 2015-10-08 Completed [facility] y of Vaccine Quad IM 3+ 00:00:00 [facility] Pneumococcal 2015-10-08 Completed [facility] o f Polysaccharide, 00:00:00 [place] [facility] PPSV23 (PNEUMOVAX) Branch Influenza Virus 2015-10-08 Completed [facility] y of Vaccine Quad IM 3+ 00:00:00 [facility] Pneumococcal 2015-10-08 Completed [facility] o f Polysaccharide, 00:00:00 [place] [facility] PPSV23 (PNEUMOVAX) Branch Influenza Virus 2015-10-08 Completed [facility] y of Vaccine Quad IM 3+ 00:00:00 [facility] Vital Signs Vital Name Observation Time Observation Value Comments Source Systolic blood 2023-03-03 144 mm[Hg] [facility] pressure 20:43:00 [facility] Diastolic blood 2023-03-03 89 mm[Hg] [place] o f pressure 20:43:00 [facility] Heart rate 2023-03-03 88 /min [facility] 20:43:00 [facility] Body temperature 2023-03-03 36.83 [place] [facility] 20:43:00 [facility] Respiratory rate 2023-03-03 20 /min [facility] 20:43:00 [facility] Oxygen saturation 2023-03-03 97 /min [facility] in Arterial blood 20:43:00 [facility] by Pulse oximetry [place] Body height 2023-02-23 167.6 cm [facility] 14:22:00 [facility] Body weight 2023-02-23 91.4 kg University of 14:22:00 [facility] BMI 2023-02-23 32.52 kg/m2 University of 14:22:00 [facility] Heart rate 2023-02-21 87 /min University of 20:54:00 [facility] Respiratory rate 2023-02-21 18 /min University of 20:54:00 [facility] Oxygen saturation 2023-02-21 100 /min [facility] of in Arterial blood 20:54:00 [place] [facility] Pulse oxim[facility] Body weight 2023-02-21 90.765 kg University of 20:41:00 [facility] BMI 2023-02-21 36.60 kg/m2 University of 20:41:00 [facility] Systolic blood 2023-02-21 131 mm[Hg] University of pressure 20:07:00 [facility] Diastolic blood 2023-02-21 73 mm[Hg] [facility] o f pressure 20:07:00 [facility] Body temperature 2023-02-21 36.78 [place] University of 20:07:00 [facility] Body height 2023-02-10 157.5 cm University of 14:46:00 [facility] Systolic blood 2023-02-05 133 mm[Hg] University of pressure 21:00:00 [facility] Diastolic blood 2023-02-05 68 mm[Hg] [facility] o f pressure 21:00:00 [facility] Heart rate 2023-02-05 81 /min [facility] of 21:00:00 [facility] Body temperature 2023-02-05 36.33 [place] [facility] of 21:00:00 [facility] Respiratory rate 2023-02-05 18 /min University of 21:00:00 [facility] Oxygen saturation 2023-02-05 92 /min [facility] of in Arterial blood 21:00:00 [place] [facility] Pulse oxim[facility] Body weight 2023-02-05 96.979 kg University of 09:00:00 [facility] BMI 2023-02-05 34.51 kg/m2 University of 09:00:00 [facility] Body height 2023-01-30 167.6 cm University of 17:40:00 [facility] Systolic blood 2023-01-30 131 mm[Hg] University of pressure 17:03:00 [facility] Diastolic blood 2023-01-30 82 mm[Hg] University o f pressure 17:03:00 [facility] Heart rate 2023-01-30 105 /min University of 17:03:00 [facility] Body temperature 2023-01-30 36.67 [place] [facility] 17:03:00 [facility] Oxygen saturation 2023-01-30 80 /min 3L [place] [facility] in Arterial blood 17:03:00 [place] [facility] Pulse oximetry [facility] Systolic blood 2023-01-30 131 mm[Hg] University of pressure 16:40:00 [facility] Diastolic blood 2023-01-30 82 mm[Hg] University o f pressure 16:40:00 [facility] Heart rate 2023-01-30 103 /min University of 16:40:00 [facility] Body temperature 2023-01-30 36.67 [place] [facility] 16:40:00 [facility] Body weight 2023-01-30 95.709 kg University of 16:40:00 [facility] BMI 2023-01-30 34.06 kg/m2 University of 16:40:00 [facility] Oxygen saturation 2023-01-30 79 /min University of in Arterial blood 16:40:00 [facility] [place] Pulse oximetry Branch Systolic blood 2023-01-24 152 mm[Hg] University of pressure 20:27:00 [facility] Diastolic blood 2023-01-24 73 mm[Hg] University o f pressure 20:27:00 [facility] Heart rate 2023-01-24 83 /min University of 20:27:00 [facility] Body temperature 2023-01-24 36.67 [place] University of 20:27:00 [facility] Respiratory rate 2023-01-24 20 /min University of 20:27:00 [facility] Oxygen saturation 2023-01-24 97 /min University of in Arterial blood 20:27:00 [facility] dk by Pulse oximetry Branch Body weight 2023-01-22 96.48 kg University of 08:59:00 [facility] BMI 2023-01-22 34.33 kg/m2 University of 08:59:00 [facility] Body height 2023-01-20 167.6 cm University of 22:24:00 [facility] Body temperature 2023-01-13 35.67 [place] University of 19:26:00 [facility] Body weight 2023-01-13 101.878 kg University of 19:26:00 [facility] BMI 2023-01-13 36.25 kg/m2 University of 19:26:00 [facility] Systolic blood 2023-01-06 166 mm[Hg] University of pressure 15:05:00 [facility] Diastolic blood 2023-01-06 16 mm[Hg] University o f pressure 15:05:00 [facility] Heart rate 2023-01-06 82 /min University of 15:05:00 [facility] Respiratory rate 2023-01-06 16 /min University of 15:05:00 [facility] Oxygen saturation 2023-01-06 95 /min [place] 2L University of in Arterial blood 15:05:00 [place] [facility] Pulse oximetry Branch Systolic blood 2022-12-26 136 mm[Hg] University of pressure 20:27:00 [facility] Diastolic blood 2022-12-26 80 mm[Hg] University o f pressure 20:27:00 [facility] Heart rate 2022-12-26 78 /min University of 20:27:00 [facility] Body height 2022-12-26 167.6 cm University of 20:27:00 [facility] Body weight 2022-12-26 100.744 kg University of 20:27:00 [facility] BMI 2022-12-26 35.85 kg/m2 University of 20:27:00 [facility] Oxygen saturation 2022-12-26 90 /min University of in Arterial blood 20:27:00 [facility] dk by Pulse oximetry Branch Systolic blood 2022-12-23 147 mm[Hg] University of pressure 19:13:00 [facility] Diastolic blood 2022-12-23 76 mm[Hg] University o f pressure 19:13:00 [facility] Heart rate 2022-12-23 75 /min University of 19:08:00 [facility] Body temperature 2022-12-23 36.5 [place] University of 19:08:00 [facility] Respiratory rate 2022-12-23 18 /min University of 19:08:00 [facility] Body height 2022-12-23 167.6 cm University of 19:08:00 [facility] Body weight 2022-12-23 101.606 kg University of 19:08:00 [facility] BMI 2022-12-23 36.15 kg/m2 University of 19:08:00 [facility] Oxygen saturation 2022-12-23 91 /min University of in Arterial blood 19:08:00 [place] [facility] by Pulse oximetry Branch Systolic blood 2022-12-23 169 mm[Hg] University of pressure 15:33:00 [facility] Diastolic blood 2022-12-23 80 mm[Hg] University o f pressure 15:33:00 [facility] Heart rate 2022-12-23 85 /min University of 15:33:00 [facility] Respiratory rate 2022-12-23 23 /min University of 15:31:00 [facility] Body height 2022-12-23 167.6 cm University of 15:31:00 [facility] Body weight 2022-12-23 101.923 kg University of 15:31:00 [facility] BMI 2022-12-23 36.27 kg/m2 University of 15:31:00 [facility] Oxygen saturation 2022-12-23 82 /min 92% when 2L [place] Universi ty of in Arterial blood 15:31:00 applied [facility] dk by Pulse oximetry Branch Body weight 2022-12-22 101.152 kg University of 15:09:00 [facility] BMI 2022-12-22 35.99 kg/m2 University of 15:09:00 [facility] Systolic blood 2022-12-12 169 mm[Hg] University of pressure 21:04:00 [facility] Diastolic blood 2022-12-12 82 mm[Hg] University o f pressure 21:04:00 [facility] Oxygen saturation 2022-12-12 98 /min After 2L Oxygen Univers ity of in Arterial blood 21:04:00 for 5 minutes. [facility] dical by Pulse oximetry Branch Heart rate 2022-12-12 68 /min University of 21:03:00 [facility] Respiratory rate 2022-12-12 20 /min University of 21:03:00 [facility] Body height 2022-12-12 167.6 cm University of 21:03:00 [facility] Body weight 2022-12-12 101.152 kg University of 21:03:00 [facility] BMI 2022-12-12 35.99 kg/m2 University of 21:03:00 [facility] Systolic blood 2022-12-08 135 mm[Hg] University of pressure 17:27:00 [facility] Diastolic blood 2022-12-08 70 mm[Hg] University o f pressure 17:27:00 [facility] Heart rate 2022-12-08 65 /min University of ::00 [facility] Body temperature 2022-12-08 36.5 [place] University of ::00 [facility] Respiratory rate 2022-12-08 20 /min University of ::00 [facility] Body height 2022-12-08 167.6 cm University of :: [facility] Body weight 2022-12-08 100.336 kg University of ::00 [facility] BMI 2022-12-08 35.70 kg/m2 University of ::00 [facility] Oxygen saturation 2022-12-08 95 /min [facility] in Arterial blood ::00 [facility] by Pulse oximetry Branch Systolic blood 2022-12-06 136 mm[Hg] manual University of pressure 20:00:00 [facility] Diastolic blood 2022-12-06 66 mm[Hg] manual University o f pressure 20:00:00 [facility] Heart rate 2022-12-06 63 /min University of 20:00:00 [facility] Respiratory rate 2022-12-06 20 /min University of 20:00:00 [facility] Body weight 2022-12-06 101.152 kg University of 20:00:00 [facility] BMI 2022-12-06 35.99 kg/m2 University of 20:00:00 [facility] Oxygen saturation 2022-12-06 85 /min [facility] in Arterial blood 20:00:00 exercised on [address] [place] [address] dical by Pulse oximetry l/m con't NC due Branch to SpO2<90% Systolic blood 2022-12-01 138 mm[Hg] manual University of pressure 20:00:00 [facility] Diastolic blood 2022-12-01 76 mm[Hg] manual University o f pressure 20:00:00 [facility] Heart rate 2022-12-01 59 /min University of 20:00:00 [facility] Respiratory rate 2022-12-01 20 /min University of 20:00:00 [facility] Body weight 2022-12-01 100.88 kg University of 20:00:00 [facility] BMI 2022-12-01 35.90 kg/m2 University of 20:00:00 [place] [facility] Oxygen saturation 2022-12-01 95 /min arrived on RA; Universi ty of in Arterial blood 20:00:00 exercised on RA [place] [facility] by Pulse oximetry till SCIFIT due Branch to SpO2 85% after warm ups; put on 2 l/m NC Systolic blood 2022-11-29 146 mm[Hg] manual; taken University o f pressure 20:00:00 twice; reports [place] [facility] compliance with Branch meds; concern over rain/storm Diastolic blood 2022-11-29 62 mm[Hg] manual; taken University of pressure 20:00:00 twice; reports [place] [facility] compliance with Branch meds; concern over rain/storm Heart rate 2022-11-29 74 /min University of 20:00:00 [facility] Respiratory rate 2022-11-29 20 /min University of 20:00:00 [facility] Body weight 2022-11-29 100.608 kg University of 20:00:00 [facility] BMI 2022-11-29 35.80 kg/m2 University of 20:00:00 [facility] Oxygen saturation 2022-11-29 92 /min arrived on RA; Universi ty of in Arterial blood 20:00:00 exercised on 2 [facility] dical by Pulse oximetry l/m NC due to Branch warm up SpO2 85% Systolic blood 2022-11-22 126 mm[Hg] manual University of pressure 20:00:00 [facility] Diastolic blood 2022-11-22 64 mm[Hg] manual University o f pressure 20:00:00 [facility] Heart rate 2022-11-22 66 /min University of 20:00:00 [facility] Respiratory rate 2022-11-22 22 /min University of 20:00:00 [facility] Body weight 2022-11-22 102.241 kg University of 20:00:00 [facility] BMI 2022-11-22 36.38 kg/m2 University of 20:00:00 [facility] Oxygen saturation 2022-11-22 85 /min arrived on RA; Universi ty of in Arterial blood 20:00:00 placed on con't [place] [facility] by Pulse oximetry 2 l/m NC with Branch SpO2>90% within 2-3 mins Systolic blood 2022-11-15 148 mm[Hg] manual, taken University o f pressure 20:00:00 x2; reports took [place] [facility] BP meds; slight Branch H/A Diastolic blood 2022-11-15 86 mm[Hg] manual, taken University of pressure 20:00:00 x2; reports took [place] [facility] BP meds; slight Branch H/A Heart rate 2022-11-15 52 /min University of 20:00:00 [facility] Respiratory rate 2022-11-15 22 /min University of 20:00:00 [facility] Body weight 2022-11-15 103.42 kg University of 20:00:00 [facility] BMI 2022-11-15 36.80 kg/m2 University of 20:00:00 [facility] Oxygen saturation 2022-11-15 86 /min RA on arrival; [facility] in Arterial blood 20:00:00 SpO2>90% after [place] [facility] by Pulse oximetry ~2-3 mins rest Branch on RA; exercised on 2l/m con't [place] Systolic blood 2022-11-11 171 mm[Hg] University of pressure 15:39:00 [facility] Diastolic blood 2022-11-11 70 mm[Hg] University o f pressure 15:39:00 [facility] Heart rate 2022-11-11 55 /min University 15:39:00 [facility] Oxygen saturation 2022-11-11 99 /min [facility] in Arterial blood 15:39:00 [facility] by Pulse oximetry Branch Respiratory rate 2022-11-11 22 /min University of 15:36:00 [facility] Body height 2022-11-11 167.6 cm University of 15:36:00 [facility] Body weight 2022-11-11 103.012 kg University of 15:36:00 [facility] BMI 2022-11-11 36.65 kg/m2 University of 15:36:00 [facility] Systolic blood 2022-11-03 128 mm[Hg] University of pressure 19:46:00 [facility] Diastolic blood 2022-11-03 70 mm[Hg] University o f pressure 19:46:00 [facility] Heart rate 2022-11-03 64 /min University of 19:46:00 [facility] Body weight 2022-11-03 103.329 kg University of 19:46:00 [facility] BMI 2022-11-03 36.77 kg/m2 University of 19:46:00 [facility] Oxygen saturation 2022-11-03 95 /min University of in Arterial blood 19:46:00 [place] [facility] by Pulse oximetry Branch Systolic blood 2022-11-01 130 mm[Hg] University of pressure 19:52:00 [place] [facility] Diastolic blood 2022-11-01 68 mm[Hg] University o f pressure 19:52:00 [facility] Heart rate 2022-11-01 63 /min University of 19:52:00 [facility] Body weight 2022-11-01 104.237 kg University of 19:52:00 [facility] BMI 2022-11-01 37.09 kg/m2 University of 19:52:00 [facility] Oxygen saturation 2022-11-01 94 /min [place] of in Arterial blood 19:52:00 [facility] by Pulse oximetry Branch Systolic blood 2022-10-27 142 mm[Hg] manual; pt University of pressure 19:00:00 rushing to get [place] [facility] into AL room Branch Diastolic blood 2022-10-27 68 mm[Hg] manual; pt University o f pressure 19:00:00 rushing to get [place] [facility] into [place] room Branch Heart rate 2022-10-27 60 /min University of 19:00:00 [facility] Respiratory rate 2022-10-27 22 /min University of :00:00 [facility] Body weight 2022-10-27 104.872 kg University of 19:00:00 [facility] BMI 2022-10-27 37.32 kg/m2 University of 19:00:00 [facility] Oxygen saturation 2022-10-27 82 /min arrived on RA; [place] ty of in Arterial blood 19:00:00 reports ran out [facility] by Pulse oximetry of small oxygen Branch tank oxygen; placed pt on con't [place] 2l/m 2/3 modalities today Systolic blood 2022-10-25 132 mm[Hg] manual University of pressure 20:00:00 [facility] Diastolic blood 2022-10-25 70 mm[Hg] manual University o f pressure 20:00:00 [facility] Heart rate 2022-10-25 57 /min University of 20:00:00 [facility] Respiratory rate 2022-10-25 22 /min University of 20:00:00 [facility] Body weight 2022-10-25 104.872 kg University of 20:00:00 [facility] BMI 2022-10-25 37.32 kg/m2 University of 20:00:00 [facility] Oxygen saturation 2022-10-25 97 /min arrived on RA; Universi ty of in Arterial blood 20:00:00 exercised on RA [facility] by Pulse oximetry Branch Systolic blood 2022-10-13 120 mm[Hg] manual cuff University of pressure 17:44:00 [place] [facility] Diastolic blood 2022-10-13 58 mm[Hg] manual cuff University o f pressure 17:44:00 [facility] Heart rate 2022-10-13 53 /min University of 17:44:00 [facility] Respiratory rate 2022-10-13 22 /min University of 17:44:00 [facility] Body weight 2022-10-13 106.777 kg University of 17:44:00 [facility] BMI 2022-10-13 37.99 kg/m2 University of 17:44:00 [facility] Oxygen saturation 2022-10-13 95 /min arrived on RA; Universi ty of in Arterial blood 17:44:00 reports has [place] [facility] by Pulse oximetry oxygen at home, Branch doesn't use often. Systolic blood 2022-09-27 161 mm[Hg] University of pressure 19:23:00 [facility] Diastolic blood 2022-09-27 79 mm[Hg] University o f pressure 19:23:00 [facility] Heart rate 2022-09-27 62 /min University of 19:17:00 [facility] Body temperature 2022-09-27 35.83 [place] University of 19:17:00 [facility] Respiratory rate 2022-09-27 18 /min University of 19:17:00 [facility] Body height 2022-09-27 167.6 cm University of 19:17:00 [facility] Body weight 2022-09-27 107.82 kg University of 19:17:00 [facility] BMI 2022-09-27 38.37 kg/m2 University of 19:17:00 [facility] Oxygen saturation 2022-09-27 93 /min University of in Arterial blood 19:17:00 [place] [facility] by Pulse oximetry Branch Systolic blood 2022-09-23 188 mm[Hg] University of pressure 20:25:00 [facility] Diastolic blood 2022-09-23 80 mm[Hg] University o f pressure 20:25:00 [facility] Heart rate 2022-09-23 54 /min University of 20:25:00 [facility] Body temperature 2022-09-23 36.06 [place] University of 20:23:00 [facility] Body height 2022-09-23 167.6 cm University of 20:23:00 [facility] Body weight 2022-09-23 107.457 kg University of 20:23:00 [facility] BMI 2022-09-23 38.24 kg/m2 University of 20:23:00 [facility] Oxygen saturation 2022-09-23 96 /min University of in Arterial blood 20:23:00 [place] [facility] by Pulse oximetry Branch Systolic blood 2022-09-15 183 mm[Hg] University of pressure 17:39:00 [facility] Diastolic blood 2022-09-15 75 mm[Hg] University o f pressure 17:39:00 [facility] Heart rate 2022-09-15 58 /min University of 17:39:00 [facility] Oxygen saturation 2022-09-15 94 /min University in Arterial blood 17:39:00 [facility] dk by Pulse oximetry Branch Respiratory rate 2022-09-15 17 /min University of 17:33:00 [facility] Body height 2022-09-15 167.6 cm University of 17:33:00 [facility] Body weight 2022-09-15 107.049 kg University of 17:33:00 [facility] BMI 2022-09-15 38.09 kg/m2 University of 17:33:00 [facility] Systolic blood 2022-09-06 168 mm[Hg] patients wrist University of pressure 18:23:00 cuff [facility] Diastolic blood 2022-09-06 81 mm[Hg] patients wrist University of pressure 18:23:00 cuff [facility] Heart rate 2022-09-06 54 /min University of 18:11:00 [facility] Respiratory rate 2022-09-06 20 /min University of 18:11:00 [facility] Body height 2022-09-06 167.6 cm University of 18:11:00 [facility] Body weight 2022-09-06 109.317 kg University of 18:11:00 [facility] BMI 2022-09-06 38.90 kg/m2 University of 18:11:00 [facility] Oxygen saturation 2022-09-06 95 /min University of in Arterial blood 18:11:00 [facility] by Pulse oximetry Branch Body temperature 2022-09-02 35.78 [place] University of 18:27:00 [facility] Body height 2022-09-02 14.2 cm University of 18:27:00 [facility] Body weight 2022-09-02 108.41 kg University of 18:27:00 [facility] BMI 2022-09-02 5358.27 kg/m2 University of 18:27:00 [facility] Systolic blood 2022-08-25 198 mm[Hg] University of pressure 20:52:00 [facility] Diastolic blood 2022-08-25 94 mm[Hg] University o f pressure 20:52:00 [facility] Heart rate 2022-08-25 65 /min University of 20:52:00 [facility] Respiratory rate 2022-08-25 18 /min University of 20:52:00 [facility] Body weight 2022-08-25 107.956 kg University of 20:52:00 [facility] BMI 2022-08-25 38.41 kg/m2 University of 20:52:00 [facility] Oxygen saturation 2022-08-25 94 /min University of in Arterial blood 20:52:00 [facility] by Pulse oximetry Branch Systolic blood 2022-08-23 198 mm[Hg] University of pressure 19:12:00 [facility] Diastolic blood 2022-08-23 76 mm[Hg] University o f pressure 19:12:00 [facility] Heart rate 2022-08-23 57 /min University of 19:12:00 [facility] Respiratory rate 2022-08-23 18 /min University of 19:12:00 [facility] Oxygen saturation 2022-08-23 97 /min University of in Arterial blood 19:12:00 [facility] by Pulse oximetry Branch Body temperature 2022-08-23 36 [place] University of 19:09:00 [facility] Body weight 2022-08-23 108.138 kg University of 19:09:00 [facility] BMI 2022-08-23 38.48 kg/m2 University of 19:09:00 [facility] Systolic blood 2022-07-27 185 mm[Hg] University of pressure 16:29:00 [facility] Diastolic blood 2022-07-27 77 mm[Hg] University o f pressure 16:29:00 [facility] Heart rate 2022-07-27 56 /min University of 16:29:00 [facility] Oxygen saturation 2022-07-27 96 /min University of in Arterial blood 16:29:00 [facility] dk by Pulse oximetry Branch Body height 2022-07-27 167.6 cm University of 16:27:00 [facility] Body weight 2022-07-27 111.902 kg University of 16:27:00 [facility] BMI 2022-07-27 39.82 kg/m2 University of 16:27:00 [facility] Systolic blood 2022-07-18 152 mm[Hg] University of pressure 18:10:00 [facility] Diastolic blood 2022-07-18 69 mm[Hg] University o f pressure 18:10:00 [facility] Heart rate 2022-07-18 57 /min University of 18:10:00 [facility] Oxygen saturation 2022-07-18 96 /min University of in Arterial blood 18:10:00 [facility] by Pulse oximetry Branch Body temperature 2022-07-18 36.06 [place] University of 18:08:00 [facility] Respiratory rate 2022-07-18 19 /min University of 18:08:00 [facility] Body weight 2022-07-18 111.676 kg University of 18:08:00 [facility] BMI 2022-07-18 39.74 kg/m2 University of 18:08:00 [facility] Heart rate 2023-02-12 80 /min University of 16:45:00 [facility] Respiratory rate 2023-02-12 20 /min University of 16:45:00 [facility] Oxygen saturation 2023-02-12 95 /min University of in Arterial blood 16:45:00 [facility] dk by Pulse oximetry Branch Systolic blood 2023-02-12 144 mm[Hg] University of pressure 12:55:00 [facility] Diastolic blood 2023-02-12 82 mm[Hg] University o f pressure 12:55:00 [facility] Body temperature 2023-02-12 36.72 [place] University of 12:55:00 [facility] Body weight 2023-02-12 93.985 kg University of 08:23:00 [facility] BMI 2023-02-12 37.90 kg/m2 [facility] 08:23:00 [facility] Body height 2023-02-10 157.5 cm [facility] 14:46:00 [facility] Procedures Procedure Date / Time Performing Clinician Source Performed EXTERNAL PROVIDER RECORDS 2023-03-08 05:01:00 Doctor Unassigned, [facility] POCT GLUCOSE (AUTOMATED) 2023-03-03 17:59:00 [facility] 2023-03-03 16:41:00 Mike Campos [facility] vers[facility] POCT GLUCOSE (AUTOMATED) 2023-03-03 13:12:00 [facility] 2023-03-03 11:44:00 [facility] 2023-03-03 10:52:00 [facility] Campos [facility] PHOSPHORUS 2023-03-03 09:19[facility]-03 09:19:00 [facility] BASIC METABOLIC PANEL (NA, 2023-03-03 09:19:00 Ashu Herring [facility] K, CL, CO2, GLUCOSE, BUN, Medica l Branch CREATININE, CA) CBC WITH DIFF 2023-03-03 09:19:00 Ashu Herring [facility] POCT GLUCOSE (AUTOMATED) 2023-03-03 02:11:00 [facility]) 2023-03-02 22:28:00 [facility] 2023-03-02 16:48:00 [facility] ([facility]ATED) 2023-03-02 12:46:00 [facility] (AUTOMATED) 2023-03-02 12:05:00 Mike Campos Uni versity [facility] PHOSPHORUS 2023-03-02 09:10:00 Heidari, [facility] MAGNESIUM 2023-03-02 09:10:00 Nevaeh [facility] BASIC METABOLIC PANEL (NA, 2023-03-02 09:10:00 Ashu Herring [facility] K, CL, CO2, GLUCOSE, BUN, Medica l Branch CREATININE, CA) CBC WITH DIFF 2023-03-02 09:10:00 Nevaeh [facility] POCT GLUCOSE (AUTOMATED) 2023-03-02 04:17:00 Mike Campos [facility] POCT GLUCOSE (AUTOMATED) 2023-03-02 01:19:00 Mike Campos [facility] POCT GLUCOSE (AUTOMATED) 2023-03-01 21:54:00 Mike Campos [facility] POCT GLUCOSE (AUTOMATED) 2023-03-01 16:03:00 [facility] (AUTOMATED) 2023-03-01 13:07:00 Mike Campos [facility] PHOSPHORUS 2023-03-01 10:21:00 Nevaeh [facility] MAGNESIUM 2023-03-01 10:21:00 Nevaeh [facility] BASIC METABOLIC PANEL (NA, 2023-03-01 10:21:00 Ashu Herring [facility] K, CL, CO2, GLUCOSE, BUN, Medica l Branch CREATININE, CA) CBC WITH DIFF 2023-03-01 10:21:00 Nevaeh [facility] CLOSTRIDIUM DIFFICILE 2023-03-01 02:54:00 Faviola Meadows [facility] TOXIN [facility] POCT GLUCOSE (AUTOMATED) 2023-03-01 01:58:00 [facility] (AUTOMATED) 2023-02-28 23:09:00 Mike Campos [facility] POCT GLUCOSE (AUTOMATED) 2023-02-28 21:31:00 Mike Campos [facility] XR CHEST 1 VW 2023-02-28 19:33:13 Ashu Herring [facility] POCT GLUCOSE (AUTOMATED) 2023-02-28 17:31:00 Mike Campos [facility] vers[facility] ACUTE CARE ARTERIAL BLOOD 2023-02-28 17:27:00 Ashu Herring [facility] POCT GLUCOSE (AUTOMATED) 2023-02-28 13:08:00 Mike Campos Uni versity of [facility] MAGNESIUM 2023-02-28 10:30:00 Mike [facility] BASIC METABOLIC PANEL (NA, 2023-02-28 10:30:00 Mckeon, Yvonne [facility] [place] K, CL, CO2, GLUCOSE, BUN, Medica l Branch CREATININE, CA) CBC WITH DIFF 2023-02-28 10:30:00 Mike [facility] POCT GLUCOSE (AUTOMATED) 2023-02-28 01:58:00 Mike Campos [facility] POCT GLUCOSE (AUTOMATED) 2023-02-27 21:28:00 Noah Ali Uni versity of [facility] POCT GLUCOSE (AUTOMATED) 2023-02-27 17:08:00 Mike Campos Uni versity of [facility] POCT GLUCOSE (AUTOMATED) 2023-02-27 16:43:00 Noah Ali Uni versity of [facility] POCT GLUCOSE (AUTOMATED) 2023-02-27 13:02:00 Mike Campos Uni versity of [facility] BASIC METABOLIC PANEL (NA, 2023-02-27 07:51:00 AlbBubba burns [facility] K, CL, CO2, GLUCOSE, BUN, Medica l Branch CREATININE, CA) CBC WITH DIFF 2023-02-27 07:51:00 Bubba Shaw [facility] POCT GLUCOSE (AUTOMATED) 2023-02-27 02:08:00 Mike Campos Uni versity of [facility] POCT GLUCOSE (AUTOMATED) 2023-02-26 23:05:00 Ezmarin Ali Uni versity of [facility] POCT GLUCOSE (AUTOMATED) 2023-02-26 20:08:00 Noah Ali Uni versity of [facility] POCT GLUCOSE (AUTOMATED) 2023-02-26 17:01:00 Ezmarin, [facility]OMATED) 2023-02-26 12:44:00 Ezzo, [facility] PO[facility] (AUTOMATED) 2023-02-26 10:24:00 Noah, [facility] MAG[facility]UM 2023-02-26 09:16:00 Mike [facility] BASIC METABOLIC PANEL (NA, 2023-02-26 09:16:00 Yvonne Mckeon [facility] K, CL, CO2, GLUCOSE, BUN, Medica l Branch CREATININE, CA) CBC WITH DIFF 2023-02-26 09:16:00 Mckeon, [facility] POCT GLUCOSE (AUTOMATED) 2023-02-26 07:31:00 Noah, Mike [facility] POCT GLUCOSE (AUTOMATED) 2023-02-26 04:35:00 Ezzo, Mike [facility] POCT GLUCOSE (AUTOMATED) 2023-02-26 04:32:00 Ezzo, Ali [facility] POCT GLUCOSE (AUTOMATED) 2023-02-26 01:24:00 Ezzo, Ali [facility] POCT GLUCOSE (AUTOMATED) 2023-02-25 21:09:00 Ezzo, Ali [facility] POCT GLUCOSE (AUTOMATED) 2023-02-25 16:30:00 Ezzo, Ali [facility] POCT GLUCOSE (AUTOMATED) 2023-02-25 12:56:00 Ezmarin, Mike [facility] PHOSPHORUS 2023-02-25 10:31:00 Terminpattie [facility] MAGNESIUM 2023-02-25 10:31:00 [facility] BASIC METABOLIC PANEL (NA, 2023-02-25 10:31:00 Dennis [facility] K, CL, CO2, GLUCOSE, BUN, Medica l Branch CREATININE, CA) CBC WITH DIFF 2023-02-25 10:31:00 [facility]ATED) 2023-02-25 01:15:00 EzMike funes [facility] POCT GLUCOSE (AUTOMATED) 2023-02-25 00:02:00 Ezmarin, Mike [facility] POCT GLUCOSE (AUTOMATED) 2023-02-24 22:07:00 EzMike funes [facility] POCT GLUCOSE (AUTOMATED) 2023-02-24 17:02:00 Mike Campos [facility] POCT GLUCOSE (AUTOMATED) 2023-02-24 11:20:00 Mike Campos [facility] PHOSPHORUS 2023-02-24 09:25:00 EzMike funes [facility] MAGNESIUM 2023-02-24 09:25:00 Noah [facility] COMP. METABOLIC PANEL 2023-02-24 09:25:00 Mike Campos [facility] ([id number]) [facility] CBC WITH DIFF 2023-02-24 09:25:00 Ezmarin [facility] POCT GLUCOSE (AUTOMATED) 2023-02-24 04:59:00 Mike Campos [facility] AC PANEL 20 + LACTIC ACID 2023-02-24 03:04:00 Mike Campos [facility] POCT GLUCOSE (AUTOMATED) 2023-02-23 21:17:00 Mike Campos [facility] POCT GLUCOSE (AUTOMATED) 2023-02-23 16:26:00 Mike Campos [facility] CT THORAX WO CONTRAST 2023-02-23 15:46:00 Dennis [facility] TROPONIN I 2023-02-23 15:11:00 Dennis [facility] MRSA / MSSA SCREEN BY PCR, 2023-02-23 13:54:00 Dennis [facility] AC PANEL 20 + LACTIC ACID 2023-02-23 13:36:00 Dennis [facility] POCT GLUCOSE (AUTOMATED) 2023-02-23 13:28:00 Mike Campos [facility] URINALYSIS 2023-02-23 13:17:00 Dennis [facility] COVID-19 (ID NOW RAPID 2023-02-23 11:35:00 Tan Dahl [facility] TESTING) Medical Branch LAB ONLY COVID 2023-02-23 11:35:00 Tan Dahl [facility] INTERPRETATION [facility] POCT GLUCOSE (AUTOMATED) 2023-02-23 11:13:00 Tan Dahl [facility] E[facility]-12 LEAD 2023-02-23 11:02:33 Mike Campos [facility] MAGNESIUM 2023-02-23 10:40:00 [facility]OLIC PANEL 2023-02-23 10:40:00 [id number] XR CHEST 1 VW 2023-02-23 10:11:00 Nabila [facility] TROPONIN I 2023-02-23 09:44:00 Nabila [facility] CBC WITH DIFF 2023-02-23 09:44:00 Nabila Tan [facility] N-TERMINAL PRO-BNP 2023-02-23 09:44:00 Tan Dahl [facility] CRITICAL CARE 2023-02-23 09:26:00 Tan Dahl [facility] HOSPITAL ADMISSION 2023-02-23 05:01:00 Doctor Unassigned, [facility] Lavon [facility] POCT GLUCOSE (AUTOMATED) 2023-02-21 17:26:00 Dennis, Quan U [facility] POCT GLUCOSE (AUTOMATED) 2023-02-21 13:16:00 Terminpattie, Quan U [facility] PHOSPHORUS 2023-02-21 10:20:00 Nevaeh [facility] MAGNESIUM 2023-02-21 10:20:00 [facility] BAS[facility] MET[facility]OLIC PANEL (NA, 2023-02-21 10:20:00 Ashu Herring [facility] K, CL, CO2, GLUCOSE, BUN, Medica l Branch CREATININE, CA) CBC WITH DIFF 2023-02-21 10:20:00 Leahga [facility] POCT GLUCOSE (AUTOMATED) 2023-02-21 01:45:00 Terminella, Quan [facility] POCT GLUCOSE (AUTOMATED) 2023-02-20 23:24:00 Terminella, Quan [facility] POCT GLUCOSE (AUTOMATED) 2023-02-20 22:24:00 Terminella, Quan [facility] XR CHEST 1 VW 2023-02-20 19:13:52 Mike [facility] POCT GLUCOSE (AUTOMATED) 2023-02-20 17:01:00 Terminella, Quan [facility] POCT GLUCOSE (AUTOMATED) 2023-02-20 13:24:00 Terminpattie, Quan [facility] PHOSPHORUS 2023-02-20 10:05:00 Nevaeh [facility] MAGNESIUM 2023-02-20 10:05:00 [facility] BASIC METABOLIC PANEL (NA, 2023-02-20 10:05:00 [facility], CL, CO2, GLUCOSE, BUN, Medica l Branch CREATININE, CA) CBC WITH DIFF 2023-02-20 10:05:00 [facility] POCT GLUCOSE (AUTOMATED) 2023-02-20 01:07:00 Terminella, Quan [facility] POCT GLUCOSE (AUTOMATED) 2023-02-19 22:29:00 Terminella, Quan [facility] POCT GLUCOSE (AUTOMATED) 2023-02-19 18:05:00 Terminella, Quan [facility] POCT GLUCOSE (AUTOMATED) 2023-02-19 13:14:00 Terminella, Quan [facility] PHOSPHORUS 2023-02-19 10:01:00 Nevaeh [facility] MAGNESIUM 2023-02-19 10:01:00 Nevaeh [facility] BASIC METABOLIC PANEL (NA, 2023-02-19 10:01:00 Ashu Herring [facility] K, CL, CO2, GLUCOSE, BUN, Medica l Branch CREATININE, CA) CBC WITH DIFF 2023-02-19 10:01:00 Ashu Herring [facility] POCT GLUCOSE (AUTOMATED) 2023-02-19 02:00:00 Terminella, Quan [facility] POCT GLUCOSE (AUTOMATED) 2023-02-18 23:29:00 Terminella, Quan [facility] POCT GLUCOSE (AUTOMATED) 2023-02-18 22:04:00 Terminella, Quan [facility] POCT GLUCOSE (AUTOMATED) 2023-02-18 16:25:00 Terminella, Quan [facility] POCT GLUCOSE (AUTOMATED) 2023-02-18 13:18:00 Terminella, Quan [facility] POCT GLUCOSE (AUTOMATED) 2023-02-18 12:48:00 Terminella, Quan U [facility] POCT GLUCOSE (AUTOMATED) 2023-02-18 10:33:00 Terminella, Quan [facility] PHOSPHORUS 2023-02-18 10:28:[address] [facility] BASIC METABOLIC PANEL (NA, 2023-02-18 10:28:00 SimmonsErine francis [facility] K, CL, CO2, GLUCOSE, BUN, Medica l Branch CREATININE, CA) CBC WITH DIFF 2023-02-18 10:28:00 [facility] POCT GLUCOSE (AUTOMATED) 2023-02-18 01:37:00 Terminella, [facility] PO[facility]SE (AUTOMATED) 2023-02-17 22:12:00 Terminella, Quan [facility] POCT GLUCOSE (AUTOMATED) 2023-02-17 17:10:00 Gopi Elias ivUT [facility] CT PELVIS WO CONTRAST 2023-02-17 16:47:00 Yvonne Mckeon [facility] CT THORAX WO CONTRAST 2023-02-17 16:47:00 Yvonne Mckeon [facility] DUPLEX VENOUS LEG RIGHT - 2023-02-17 16:07:59 [facility] POCT GLUCOSE (AUTOMATED) 2023-02-17 12:38:00 Gopi Elias [facility] MAGN[facility]UM 2023-02-17 11:48:00 Yvonne Mckeon [facility] BASIC METABOLIC PANEL (NA, 2023-02-17 11:48:00 Mike, Yvonne [facility] K, CL, CO2, GLUCOSE, BUN, Medica l Branch CREATININE, CA) N-TERMINAL PRO-BNP 2023-02-17 11:48:00 Troy [facility] CBC WITH DIFF 2023-02-17 10:30:00 [facility]) 2023-02-17 01:47:00 [facility] PO[facility]SE (AUTOMATED) 2023-02-16 21:28:00 [facility] PO[facility] GLU[facility]SE (AUTOMATED) 2023-02-16 16:45:00 Gopi Elias ivUT [facility] XR CHEST 1 VW 2023-02-16 14:46:[address] [facility] TRANSTHORACIC ECHO (TTE) 2023-02-16 14:34:47 Yvonne Mckeon [facility] LIMITED W/ DOPPLER, COLOR Medica l Branch AND CONTRAST POCT GLUCOSE (AUTOMATED) 2023-02-16 14:12:00 [facility]opi [facility] POCT GLU[facility]SE (AUTOMATED) 2023-02-16 12:32:00 Gopi [facility]as [facility] MAGNES[facility]UM 2023-02-16 10:08:00 Yvonne Mckeon [facility] BASIC METABOLIC PANEL (NA, 2023-02-16 10:08:00 [facility], CL, CO2, GLUCOSE, BUN, Medica l Branch CREATININE, CA) CBC WITH DIFF 2023-02-16 10:08:00 [facility] 2023-02-16 10:08:00 Ernie Simmons [facility] POCT GLUCOSE (AUTOMATED) 2023-02-16 06:37:00 Gopi Elias [facility] TROPONIN I 2023-02-16 04:10:00 [facility]SE (AUTOMATED) 2023-02-16 03:25:00 Gopi Elias [facility] TROPONIN I 2023-02-15 21:44:00 [facility] PO[facility] GLUCOSE (AUTOMATED) 2023-02-15 21:36:00 Gopi Elias [facility] POCT GLUCOSE (AUTOMATED) 2023-02-15 17:45:00 Gopi Elias [facility] PHOSPHORUS 2023-02-15 14:42:00 [facility]-15 14:42[facility] 2023-02-15 14:42:00 [facility] BASIC METABOLIC PANEL (NA, 2023-02-15 14:42:00 [facility], CO2, GLUCOSE, BUN, Medica l Branch CREATININE, CA) CBC WITH DIFF 2023-02-15 14:42:00 [facility] XR CHEST 1 VW 2023-02-15 14:36:34 [facility] HB ECG ROUTINE & RHYTHM 2023-02-15 14:21:38 Gopi Elias [facility] AC ABG + LACTIC ACID 2023-02-15 14:19:00 Gopi Elias [facility] POCT GLUCOSE (AUTOMATED) 2023-02-15 14:15:00 Ronal North [facility] POCT GLUCOSE (AUTOMATED) 2023-02-15 13:48:00 Ronal North versity of [facility] POCT GLUCOSE (AUTOMATED) 2023-02-15 12:51:00 Ronal [place] versity of [facility] XR CHEST 1 VW 2023-02-15 11:35:00 Mike [facility] BASIC METABOLIC PANEL (NA, 2023-02-15 09:58:00 Faviola Meadows, [facility] K, CL, CO2, GLUCOSE, BUN, Mahmoud Medica l Branch CREATININE, CA) N-TERMINAL PRO-BNP 2023-02-15 09:58:00 Faviola Meadows [facility] POCT GLUCOSE (AUTOMATED) 2023-02-15 00:36:00 Ronal North versity of [facility] POCT GLUCOSE (AUTOMATED) 2023-02-14 21:22:00 Ronal [place] versity of [facility] POCT GLUCOSE (AUTOMATED) 2023-02-14 19:29:00 Ronal [place] [facility] POCT GLUCOSE (AUTOMATED) 2023-02-14 16:42:00 Ronal [place] versity of [facility] POCT GLUCOSE (AUTOMATED) 2023-02-14 13:35:00 Ronal [place] versity of [facility] POCT GLUCOSE (AUTOMATED) 2023-02-14 13:13:00 Ronal [place] versity of [facility] POCT GLUCOSE (AUTOMATED) 2023-02-14 13:07:00 Ronal [place] versity of [facility] POCT GLUCOSE (AUTOMATED) 2023-02-14 13:02:00 Ronal [place] versity of [facility] POCT GLUCOSE (AUTOMATED) 2023-02-14 12:52:00 Ronal [place] versity of [facility] BASIC METABOLIC PANEL (NA, 2023-02-14 11:27:00 Mehul Foster U [facility] K, CL, CO2, GLUCOSE, BUN, Medica l Branch CREATININE, CA) CBC WITH DIFF 2023-02-14 11:27:00 Cristian [facility] POCT GLUCOSE (AUTOMATED) 2023-02-14 02:15:00 Ronal [place] versity of [facility] POCT GLUCOSE (AUTOMATED) 2023-02-13 22:39:00 Ronal [place] versity of [facility] POCT GLUCOSE (AUTOMATED) 2023-02-13 17:16:00 Ronal [place] versity of [facility] POCT GLUCOSE (AUTOMATED) 2023-02-13 12:48:00 Ronal [place] versity of [facility] BASIC METABOLIC PANEL (NA, 2023-02-13 10:34:00 Molina, Nannette [facility] K, CL, CO2, GLUCOSE, BUN, Medica l Branch CREATININE, CA) CBC WITH DIFF 2023-02-13 10:34:00 Molina [facility] POCT GLUCOSE (AUTOMATED) 2023-02-13 02:15:00 Ronal [place] versity of [facility] POCT GLUCOSE (AUTOMATED) 2023-02-12 21:53:00 Ronal [place] versity of [facility] XR CHEST 1 VW 2023-02-12 21:21:09 Mike [facility] POCT GLUCOSE (AUTOMATED) 2023-02-12 17:04:00 Ronal [place] versity of [facility] POCT GLUCOSE (AUTOMATED) 2023-02-12 12:53:00 Ronal [place] versity of [facility] POCT GLUCOSE (AUTOMATED) 2023-02-12 12:53:00 Ronal [place] versity of [facility] XR CHEST 1 VW 2023-02-12 11:05:55 [facility]OMATED) 2023-02-12 02:01:00 Ronal [place] versity of [facility] POCT GLUCOSE (AUTOMATED) 2023-02-12 02:01:00 Ronal [place] versity of [facility] POCT GLUCOSE (AUTOMATED) 2023-02-11 21:56:00 Ronal North Uni versity of [facility] POCT GLUCOSE (AUTOMATED) 2023-02-11 21:56:00 Ronal [place] [facility] POCT GLUCOSE (AUTOMATED) 2023-02-11 16:35:00 Ronal North [facility] POCT GLUCOSE (AUTOMATED) 2023-02-11 16:35:00 Ronal North [facility] HB ECG ROUTINE & RHYTHM 2023-02-11 15:11:20 Quinntxthelma [facility] HB ECG ROUTINE & RHYTHM 2023-02-11 15:11:20 Quinntxthelma [facility] XR CHEST 1 VW 2023-02-11 13:27:38 Mike [facility] POCT GLUCOSE (AUTOMATED) 2023-02-11 12:45:00 Ronal North [facility] POCT GLUCOSE (AUTOMATED) 2023-02-11 12:45:00 Ronal North [facility] CBC WITHOUT DIFF 2023-02-11 09:55:[address] [facility] BASIC METABOLIC PANEL (NA, 2023-02-11 09:55:00 Alex Mckeon [facility] K, CL, CO2, GLUCOSE, BUN, Medica l Branch CREATININE, CA) PHOSPHORUS 2023-02-11 09:55:00 Mike [facility] MAGNESIUM 2023-02-11 09:55:00 Mike [facility] PHOSPHORUS 2023-02-11 09:55:00 Mike [facility] MAGNESIUM 2023-02-11 09:55:00 Mike [facility] BASIC METABOLIC PANEL (NA, 2023-02-11 09:55:00 Alex Mckeon [facility] K, CL, CO2, GLUCOSE, BUN, Medica l Branch CREATININE, CA) CBC WITHOUT DIFF 2023-02-11 09:55:[address] [facility] POCT GLUCOSE (AUTOMATED) 2023-02-11 01:05:00 Ronal North [facility] POCT GLUCOSE (AUTOMATED) 2023-02-11 01:05:00 Ronal North Dulce versity of [facility] XR CHEST 1 VW 2023-02-11 00:33:44 u VijayRufino [facility] XR CHEST 1 VW 2023-02-11 00:33:44 Jacob VijayRufino [facility] POCT GLUCOSE (AUTOMATED) 2023-02-10 21:48:00 Ronal North Uni versity of [facility] POCT GLUCOSE (AUTOMATED) 2023-02-10 21:48:00 Ronal North Uni versity of [facility] POCT GLUCOSE (AUTOMATED) 2023-02-10 17:04:00 Ronal North Uni versity of [facility] POCT GLUCOSE (AUTOMATED) 2023-02-10 17:04:00 [facility]onal [facility] IR PLEURAL DRAINAGE WITH 2023-02-10 16:35:00 Mckeon, Yvonne [facility] [place] TUBE WITH IMAGING Medical Branch IR PLEURAL DRAINAGE WITH 2023-02-10 16:35:00 Mckeon, Yvonne [facility] [place] TUBE WITH IMAGING [facility] PROTHROMBIN TIME / INR 2023-02-10 13:45:00 Mckeon, Yvonne Unive rsity of [facility] PROTHROMBIN TIME / INR 2023-02-10 13:45:00 Mckeon[facility] POCT GLUCOSE (AUTOMATED) 2023-02-10 13:20:00 Ronal North Uni [facility] POCT GLUCOSE (AUTOMATED) 2023-02-10 13:20:00 Ronal North Uni vers[facility] CBC WITH DIFF 2023-02-10 11:03:00 Jesse Nannette [employer] [facility] BASIC METABOLIC PANEL (NA, 2023-02-10 11:03:00 Molina, Nannette [facility] [place] K, CL, CO2, GLUCOSE, BUN, Medica l Branch CREATININE, CA) BASIC METABOLIC PANEL (NA, 2023-02-10 11:03:00 Molina, Nannette [facility] [place] K, CL, CO2, GLUCOSE, BUN, Medica l Branch CREATININE, CA) CBC WITH DIFF 2023-02-10 11:03:00 Molina, Nannette Sabina o f [facility] SODIUM, URINE RANDOM 2023-02-10 02:22:00 Ernie Simmons [facility] UREA NITROGEN, URINE 2023-02-10 02:22:00 Troy Ernie [facility] POTASSIUM, URINE RANDOM 2023-02-10 02:22:00 Troy [facility] CREATININE, URINE RANDOM 2023-02-10 02:22:00 Ernie Simmons [facility] URINE CULTURE 2023-02-10 02:22:[address] [facility] URINE CULTURE 2023-02-10 02:22:[address] [facility] CREATININE, URINE RANDOM 2023-02-10 02:22:00 Ernie Simmons [facility] UREA NITROGEN, URINE 2023-02-10 02:22:00 Ernie Simmons [facility] POTASSIUM, URINE RANDOM 2023-02-10 02:22:00 Troy [facility] SODIUM, URINE RANDOM 2023-02-10 02:22:00 Ernie Simmons [facility] POCT GLUCOSE (AUTOMATED) 2023-02-10 01:22:00 [facility] POCT GLUCOSE (AUTOMATED) 2023-02-10 01:22:00 [facility] POCT GLUCOSE (AUTOMATED) 2023-02-09 22:20:00 Ronal North versity of [facility] POCT GLUCOSE (AUTOMATED) 2023-02-09 22:20:00 Ronal North versity of [facility] US RETROPERITONEAL LIMITED 2023-02-09 20:36:09 Ernie Simmons [facility] US RETROPERITONEAL LIMITED 2023-02-09 20:36:09 [facility] PO[facility] GLU[facility]SE (AUTOMATED) 2023-02-09 20:28:00 Ronal North versity of [facility] POCT GLUCOSE (AUTOMATED) 2023-02-09 20:28:00 [facility] PO[facility]SE (AUTOMATED) 2023-02-09 18:42:00 [facility] POCT GLUCOSE (AUTOMATED) 2023-02-09 18:42:00 [facility] POCT GLUCOSE (AUTOMATED) 2023-02-09 17:14:00 [facility] POCT GLUCOSE (AUTOMATED) 2023-02-09 17:14:00 [place] [place] [facility] POCT GLUCOSE (AUTOMATED) 2023-02-09 16:53:00 [facility] 2023-02-09 16:53:00 [facility] XR CHEST 1 VW 2023-02-09 16:01[facility]09 [facility]:01[facility] 2023-02-09 15:49:49 H[place] [facility] HB ECG ROUTINE & RHYTHM 2023-02-09 15:49:49 Hector [facility] VANCOMYCIN RANDOM LEVEL 2023-02-09 13:37:00 Jodie Gregorioshua [facility] TROPONIN I 2023-02-09 13:37:00 Hector Gregorio [facility] TROPONIN I 2023-02-09 13:37:00 Hector Gregorio [facility] VANCOMYCIN RANDOM LEVEL 2023-02-09 13:37:00 Hector Gregorio [facility] POCT GLUCOSE (AUTOMATED) 2023-02-09 12:58:00 Ronal [facility] POCT GLUCOSE (AUTOMATED) 2023-02-09 12:58:00 Ronal [facility] LEGIONELLA URINARY ANTIGEN 2023-02-09 09:13:00 Hector Gregorio [facility] [place] LEGIONELLA URINARY ANTIGEN 2023-02-09 09:13:00 Hector Gregorio [facility] [place] PNEUMOCOCCAL ANTIGEN 2023-02-09 09:12:00 Jodie Gregorioshua [facility] PNEUMOCOCCAL ANTIGEN 2023-02-09 09:12:00 Jodie Gregorioshua [facility] TROPONIN I 2023-02-09 07:07:[address] [facility] CBC WITHOUT DIFF 2023-02-09 07:07:[address] [facility] BASIC METABOLIC PANEL (NA, 2023-02-09 07:07:00 MckeonAlex luis [facility] K, CL, CO2, GLUCOSE, BUN, Medica [facility] Branch CREATININE, CA) TROPONIN I 2023-02-09 07:07:[address] [facility] BASIC METABOLIC PANEL (NA, 2023-02-09 07:07:00 MckeonAlex luis [facility] K, CL, CO2, GLUCOSE, BUN, Medica l Branch CREATININE, CA) CBC WITHOUT DIFF 2023-02-09 07:07:[address] [facility] TROPONIN I 2023-02-09 06:53:[address] [facility] TROPONIN I 2023-02-09 06:53:[address] [facility] SPUTUM CULTURE 2023-02-09 02:24:[address] [facility] SPUTUM CULTURE 2023-02-09 02:24:[address] [facility] POCT GLUCOSE (AUTOMATED) 2023-02-09 02:15:00 [facility]SE (AUTOMATED) 2023-02-09 02:15:00 [facility] POCT GLUCOSE (AUTOMATED) 2023-02-09 01:16:00 [facility] POCT GLUCOSE (AUTOMATED) 2023-02-09 01:16:00 Abdullah, Ronal [facility] XR CHEST 1 VW 2023-02-09 00:41:00 AbRufino Batista [facility] XR CHEST 1 VW 2023-02-09 00:41:00 Rufino Bhagat [facility] PHOSPHORUS 2023-02-08 23:45:00 [facility] FERRITIN SERUM 2023-02-08 23:45:[address] [facility] IRON PANEL 2023-02-08 23:45:[address] [facility] TROPONIN I 2023-02-08 23:45:[address] [facility] PHOSPHORUS 2023-02-08 23:45:[address] [facility] FERRITIN SERUM 2023-02-08 23:45:[address] [facility] TROPONIN I 2023-02-08 23:45:[address] [facility] IRON PANEL 2023-02-08 23:45:[address] [facility] CT THORAX WO CONTRAST 2023-02-08 18:42:00 Arcelia Merrill [facility] CT THORAX WO CONTRAST 2023-02-08 18:42:00 Arcelia Merrill [facility] MRSA / MSSA SCREEN BY PCR, 2023-02-08 18:29:00 Arcelia Merrill [facility] MRSA / MSSA SCREEN BY PCR, 2023-02-08 18:29:00 Arcelia Merrill [facility] URINALYSIS 2023-02-08 17:49:00 Arcelia Merrill [facility] BLOOD CULTURE SCREEN 2023-02-08 17:49:00 Arcelia Merrill [facility] BLOOD CULTURE SCREEN 2023-02-08 17:49:00 Arcelia Merrill [facility] URINALYSIS 2023-02-08 17:49:00 Arcelia Merrill [facility] BLOOD CULTURE SCREEN 2023-02-08 17:34:00 Arcelia Merrill [facility] BLOOD CULTURE SCREEN 2023-02-08 17:34:00 Arcelia Merrill [facility] CBC WITH DIFF 2023-02-08 16:39:00 Arcelia Merrill [facility] CBC WITH DIFF 2023-02-08 16:39:00 Arcelia Merrill [facility] AC PANEL 21 + LACTIC ACID 2023-02-08 16:00:00 Arcelia Merrill [facility] AC PANEL 21 + LACTIC ACID 2023-02-08 16:00:00 Arcelia Merrill [facility] XR CHEST 1 VW 2023-02-08 15:29:05 Arcelia Merrill [facility] XR CHEST 1 VW 2023-02-08 15:29:05 Arcelia Merrill [facility] COMP. METABOLIC PANEL 2023-02-08 15:19:00 Arcelia Merrill [facility] ([id number] N-TERMINAL PRO-BNP 2023-02-08 15:19:00 Arcelia Merrill [facility] TROPONIN I 2023-02-08 15:19:00 Arcelia Merrill [facility] MAGNESIUM 2023-02-08 15:19:00 Arcelia Merrill [facility] MAGNESIUM 2023-02-08 15:19:00 Arcelia Merrill [facility] TROPONIN I 2023-02-08 15:19:00 Arcelia Merrill [facility] COMP. METABOLIC PANEL 2023-02-08 15:19:00 Arcelia Merrill [facility] ([id number]) [facility] N-TERMINAL PRO-BNP 2023-02-08 15:19:00 Arcelia Merrill [facility] HB ECG ROUTINE & RHYTHM 2023-02-08 15:07:22 Arcelia Merrill [facility] HB ECG ROUTINE & RHYTHM 2023-02-08 15:07:22 Arcelia Merrill [facility] CONSENT/REFUSAL FOR 2023-02-08 14:59:24 Doctor Unassigned, [facility] DIAGNOSIS AND TREATMENT [facility] CONSENT/REFUSAL FOR 2023-02-08 14:59:24 Doctor Etienne [facility] DIAGNOSIS AND TREATMENT [facility] HOSPITAL ADMISSION 2023-02-08 05:01:00 Doctor Jaimie [facility] EKG (SCANNED DOCUMENTS) 2023-02-08 05:01:00 Doctor Etienne [facility] HOSPITAL ADMISSION 2023-02-08 05:01:00 Doctor Jaimie [facility] PULMONARY REHAB ITP REPORT 2023-02-07 21:33:00 Doctor Etienne [facility] POCT GLUCOSE (AUTOMATED) 2023-02-05 21:21:00 Nicole [facility]s [facility] POCT GLUCOSE (AUTOMATED) 2023-02-05 21:21:00 [facility] POCT GLUCOSE (AUTOMATED) 2023-02-05 16:20:00 [facility] POCT GLUCOSE (AUTOMATED) 2023-02-05 16:20:00 Nicole [facility] POCT GLUCOSE (AUTOMATED) 2023-02-05 12:38:00 Nicole Weathers [facility] POCT GLUCOSE (AUTOMATED) 2023-02-05 12:38:00 Nicole [facility] BASIC METABOLIC PANEL (NA, 2023-02-05 10:16:00 Jesi Keating [facility] K, CL, CO2, GLUCOSE, BUN, Medica l Branch CREATININE, CA) BASIC METABOLIC PANEL (NA, 2023-02-05 10:16:00 Jesi Keating [facility] K, CL, CO2, GLUCOSE, BUN, Medica [facility] Branch CREATININE, CA) POCT GLUCOSE (AUTOMATED) 2023-02-05 03:50:00 [facility] POCT GLUCOSE (AUTOMATED) 2023-02-05 03:50:00 Nicole Weathers [facility] POCT GLUCOSE (AUTOMATED) 2023-02-04 23:51:00 Nicole [facility] POCT GLUCOSE (AUTOMATED) 2023-02-04 23:51:00 Nicole [facility] POCT GLUCOSE (AUTOMATED) 2023-02-04 21:13:00 Nicole [facility] POCT GLUCOSE (AUTOMATED) 2023-02-04 21:13:00 Nicole [facility] POCT GLUCOSE (AUTOMATED) 2023-02-04 16:12:00 OvNicole sainz [facility] POCT GLUCOSE (AUTOMATED) 2023-02-04 16:12:00 Nicole [facility] POCT GLUCOSE (AUTOMATED) 2023-02-04 12:39:00 Nicole [facility] POCT GLUCOSE (AUTOMATED) 2023-02-04 12:39:00 Nicole Weathers [facility] URIC ACID 2023-02-04 10:14:00 Kaushik Palomares [facility] MAGNESIUM 2023-02-04 10:14:00 Jesi Keating [facility] THYROID STIMULATING 2023-02-04 10:14:[address] [facility] BASIC METABOLIC PANEL (NA, 2023-02-04 10:14:00 Jesi Keating [facility] K, CL, CO2, GLUCOSE, BUN, Medica [facility] Branch CREATININE, CA) BASIC METABOLIC PANEL (NA, 2023-02-04 10:14:00 Jesi Keating [facility] K, CL, CO2, GLUCOSE, BUN, Medica [facility] CREATININE, CA) MAGNESIUM 2023-02-04 10:14:00 Jesi Keating [facility] THYROID STIMULATING 2023-02-04 10:14:[address] [facility] URIC ACID 2023-02-04 10:14:00 Kaushik Palomares [facility] POCT GLUCOSE (AUTOMATED) 2023-02-04 01:48:00 Oville, Nicole [facility] POCT GLUCOSE (AUTOMATED) 2023-02-04 01:48:00 Oville, Nicole [facility] POCT GLUCOSE (AUTOMATED) 2023-02-03 21:45:00 Oville, Nicole [facility] POCT GLUCOSE (AUTOMATED) 2023-02-03 21:45:00 Oville, Nicole [facility] POCT GLUCOSE (AUTOMATED) 2023-02-03 16:35:00 Oville, Nicole [facility] POCT GLUCOSE (AUTOMATED) 2023-02-03 16:35:00 Oville, Nicole [facility] POCT GLUCOSE (AUTOMATED) 2023-02-03 12:24:00 Oville, Nicole [facility] POCT GLUCOSE (AUTOMATED) 2023-02-03 12:24:00 Oville, Nicole Uni vers[facility] BASIC METABOLIC PANEL (NA, 2023-02-03 09:24:00 Jesi Keating [facility] K, CL, CO2, GLUCOSE, BUN, Medica [facility] Branch CREATININE, CA) N-TERMINAL PRO-BNP 2023-02-03 09:24:00 Tino [facility] BASIC METABOLIC PANEL (NA, 2023-02-03 09:24:00 Jesi Keating [facility] K, CL, CO2, GLUCOSE, BUN, Medica [facility] Branch CREATININE, CA) N-TERMINAL PRO-BNP 2023-02-03 09:24:00 Tino [facility] POCT GLUCOSE (AUTOMATED) 2023-02-03 01:32:00 Oville, Nicole [facility] POCT GLUCOSE (AUTOMATED) 2023-02-03 01:32:00 Oville, Nicole [facility] POCT GLUCOSE (AUTOMATED) 2023-02-02 21:33:00 Oville, Nicole [facility] POCT GLUCOSE (AUTOMATED) 2023-02-02 21:33:00 Oville, Nicole [facility] POCT GLUCOSE (AUTOMATED) 2023-02-02 16:35:00 Oville, Nicole [facility] POCT GLUCOSE (AUTOMATED) 2023-02-02 16:35:00 Caleb Weathersi [facility] XR CHEST 1 VW 2023-02-02 16:29:20 Rishabh [facility] XR CHEST 1 VW 2023-02-02 16:29:20 Rishabh [facility] POCT GLUCOSE (AUTOMATED) 2023-02-02 12:37:00 OvMartínez sainzlani [facility] POCT GLUCOSE (AUTOMATED) 2023-02-02 12:37:00 OvCaleb sainzi [facility] MAGNESIUM 2023-02-02 10:35:00 Rishabh [facility] BASIC METABOLIC PANEL (NA, 2023-02-02 10:35:00 Jesi Keating [facility] K, CL, CO2, GLUCOSE, BUN, Medica l Branch CREATININE, CA) CBC WITH DIFF 2023-02-02 10:35:00 Rishabh [facility] BASIC METABOLIC PANEL (NA, 2023-02-02 10:35:00 Jesi Keating [facility] K, CL, CO2, GLUCOSE, BUN, Medica l Branch CREATININE, CA) CBC WITH DIFF 2023-02-02 10:35:00 Jesi Keating [facility] MAGNESIUM 2023-02-02 10:35:00 Rishabh [facility] POCT GLUCOSE (AUTOMATED) 2023-02-02 10:34:00 OvNicole sainz [facility] POCT GLUCOSE (AUTOMATED) 2023-02-02 10:34:00 Ovemeli Nicole [facility] POCT GLUCOSE (AUTOMATED) 2023-02-02 06:49:00 Oville Nicole [facility] POCT GLUCOSE (AUTOMATED) 2023-02-02 06:49:00 Oville Nicole [facility] POCT GLUCOSE (AUTOMATED) 2023-02-02 05:35:00 Oville Nicole [facility] POCT GLUCOSE (AUTOMATED) 2023-02-02 05:35:00 Ovemeli Nicole Uni versity [facility] - OTHER 2023-02-02 05:01:00 Doctor Unassigned, [facility] - OTHER 2023-02-02 05:01:00 Doctor Unassigned, [facility] POCT GLUCOSE (AUTOMATED) 2023-02-02 01:15:00 OvCaleb sainzi [facility] POCT GLUCOSE (AUTOMATED) 2023-02-02 01:15:00 OvCaleb sainzi [facility] POCT GLUCOSE (AUTOMATED) 2023-02-01 21:35:00 Ovemeli Nicole [facility] POCT GLUCOSE (AUTOMATED) 2023-02-01 21:35:00 OvCaleb sainzi [facility] POCT GLUCOSE (AUTOMATED) 2023-02-01 16:22:00 OvCaleb sainzi [facility] POCT GLUCOSE (AUTOMATED) 2023-02-01 16:22:00 OvNicole sainz [facility] POCT GLUCOSE (AUTOMATED) 2023-02-01 12:41:00 Ovemeli Nicole [facility] POCT GLUCOSE (AUTOMATED) 2023-02-01 12:41:00 OvNicole sainz [facility] MAGNESIUM 2023-02-01 09:23:00 Nicole Weathers [facility] TROPONIN I 2023-02-01 09:23:00 Nicole Weathers [facility] BASIC METABOLIC PANEL (NA, 2023-02-01 09:23:00 [facility] [place] [facility], CL, CO2, GLUCOSE, BUN, Medica l Branch CREATININE, CA) CBC WITH DIFF 2023-02-01 09:23:00 [facility] 2023-02-01 09:23:00 Jasiel [facility] BASIC METABOLIC PANEL (NA, 2023-02-01 09:23:00 OvNicole sainz [facility] K, CL, CO2, GLUCOSE, BUN, Medica l Branch CREATININE, CA) TROPONIN I 2023-02-01 09:23:00 Nicole Weathers [facility] MAGNESIUM 2023-02-01 09:23:00 [facility] (AUTOMATED) 2023-02-01 05:22:00 Nicole [facility] POCT GLUCOSE (AUTOMATED) 2023-02-01 05:22:00 Nicole Weathers [facility] POCT GLUCOSE (AUTOMATED) 2023-02-01 02:02:00 Nicole Weathers [facility] POCT GLUCOSE (AUTOMATED) 2023-02-01 02:02:00 Nicole Weathers [facility] POCT GLUCOSE (AUTOMATED) 2023-01-31 21:18:00 Nicole Weathres [facility] POCT GLUCOSE (AUTOMATED) 2023-01-31 21:18:00 Nicole Weathers [facility] ACUTE CARE ARTERIAL BLOOD 2023-01-31 19:27:00 [facility] 2023-01-31 19:27:00 [facility] (AUTOMATED) 2023-01-31 16:32:00 Nicole Weathers [facility] POCT GLUCOSE (AUTOMATED) 2023-01-31 16:32:00 Nicole Weathers [facility] TROPONIN I 2023-01-31 15:35:00 Nicole Weathers [facility] BASIC METABOLIC PANEL (NA, 2023-01-31 15:35:00 Nicole Weathers [facility] K, CL, CO2, GLUCOSE, BUN, Medica l Branch CREATININE, CA) CBC WITH DIFF 2023-01-31 15:35:00 Jasiel [facility] N-TERMINAL PRO-BNP 2023-01-31 15:35:00 [facility]FF 2023-01-31 15:35:00 [facility] BASIC METABOLIC PANEL (NA, 2023-01-31 15:35:00 Nicole Weathers [facility] K, CL, CO2, GLUCOSE, BUN, Medica l Branch CREATININE, CA) TROPONIN I 2023-01-31 15:35:00 [facility] N-TERMINAL PRO-BNP 2023-01-31 15:35:00 [facility]SE (AUTOMATED) 2023-01-31 12:41:00 [facility] POCT GLUCOSE (AUTOMATED) 2023-01-31 12:41:00 [facility] SPUTUM CULTURE 2023-01-31 10:51:00 Ricardo [facility] SPUTUM CULTURE 2023-01-31 10:51:00 Ricardo [facility] HOME HEALTH - OTHER 2023-01-31 05:01:00 Doctor Unassigned, [facility] Name [facility] HEALTH - OTHER 2023-01-31 05:01:00 Doctor Unassigned, [facility] Name [facility] POCT GLUCOSE (AUTOMATED) 2023-01-31 01:37:00 Nicole Weathers [facility] POCT GLUCOSE (AUTOMATED) 2023-01-31 01:37:00 Nicole Weathers [facility] URINE CULTURE 2023-01-31 01:26:00 [facility] 2023-01-31 01:26:00 Jasiel [facility] URINALYSIS 2023-01-31 01:25:00 Jasiel [facility] URINALYSIS 2023-01-31 01:25:00 [facility] RESPIRATORY PANEL BY PCR 2023-01-30 22:01:00 Nicole Weathers Uni [facility] RESPIRATORY PANEL BY PCR 2023-01-30 22:01:00 Nicole Weathers [facility] SPUTUM CULTURE 2023-01-30 21:23:00 Nicole Weathers [facility] SPUTUM CULTURE 2023-01-30 21:23:00 Nicole Weathers [facility] POCT GLUCOSE (AUTOMATED) 2023-01-30 21:17:00 Nicole Weathers [facility] POCT GLUCOSE (AUTOMATED) 2023-01-30 21:17:00 Nicole Weathers [facility] XR CHEST 1 VW 2023-01-30 20:01:32 Nicole Weathers [facility] XR CHEST 1 VW 2023-01-30 20:01:32 [facility] MSSA SCREEN BY PCR, 2023-01-30 18:50:00 Nicole Weathers [facility] COVID-19 (ID NOW RAPID 2023-01-30 18:50:00 OvNicole sainz [facility] TESTING) Medical Branch LAB ONLY COVID 2023-01-30 18:50:00 Nicole Weathers [facility] MRSA / MSSA SCREEN BY PCR, 2023-01-30 18:50:00 Nicole Weathers [facility] COVID-19 (ID NOW RAPID 2023-01-30 18:50:00 OvNicole sainz [facility] TESTING) Medical Branch LAB ONLY COVID 2023-01-30 18:50:00 Nicole Weathers [facility] ACUTE CARE ARTERIAL BLOOD 2023-01-30 18:45:00 Nicole Weathers [facility] LACTIC ACID WHOLE BLOOD 2023-01-30 18:45:00 Nicole Weathers [facility] ACUTE CARE ARTERIAL BLOOD 2023-01-30 18:45:00 Nicole Weathers [facility] LACTIC ACID WHOLE BLOOD 2023-01-30 18:45:00 Nicole Weathers [facility] BLOOD CULTURE SCREEN 2023-01-30 18:43:00 Nicole Weathers [facility] PROCALCITONIN 2023-01-30 18:43:00 Jasiel [facility] BLOOD CULTURE SCREEN 2023-01-30 18:43:00 Ovemeli [facility] PROCALCITONIN 2023-01-30 18:43:00 Ovemeli, [facility] BLOOD CULTURE SCREEN 2023-01-30 18:36:00 Ovemeli, [facility] MAGNESIUM 2023-01-30 18:36:00 Ovemeli, [facility] C-REACTIVE PROTEIN 2023-01-30 18:36:00 Ovemeli, [facility] TROPONIN I 2023-01-30 18:36:00 Ovemeli, [facility] HEPATIC FUNCTION PANEL 2023-01-30 18:36:00 [id number],BU/BC,ALT,AST,ALK PHOS) BASIC METABOLIC PANEL (NA, 2023-01-30 18:36:00 Nicole Weathers [facility] K, CL, CO2, GLUCOSE, BUN, Medica l Branch CREATININE, CA) CBC WITH DIFF 2023-01-30 18:36:00 [facility] / INR 2023-01-30 18:36:00 Nicole Weathers [facility] ACTIVATED PARTIAL THRMPLAS 2023-01-30 18:36:00 [facility] N-TERMINAL PRO-BNP 2023-01-30 18:36:00 [facility] WITH DIFF 2023-01-30 18:36:00 Jasiel [facility] PROTHROMBIN TIME / INR 2023-01-30 18:36:00 Nicole Weathers [facility] ACTIVATED PARTIAL THRMPLAS 2023-01-30 18:36:00 Nicole [facility] BASIC METABOLIC PANEL (NA, 2023-01-30 18:36:00 Nicole Weathers [facility] K, CL, CO2, GLUCOSE, BUN, Medica l Branch CREATININE, CA) MAGNESIUM 2023-01-30 18:36:00 Jasiel [facility] HEPATIC FUNCTION PANEL 2023-01-30 18:36:00 Nicole Weathers [facility] ([id number]) (ALB,T.PRO,BILI Medical Branch T,BU/BC,ALT,AST,ALK PHOS) BLOOD CULTURE SCREEN 2023-01-30 18:36:00 Jasiel [facility] TROPONIN I 2023-01-30 18:36:00 Jasiel [facility] N-TERMINAL PRO-BNP 2023-01-30 18:36:00 Jasiel [facility] C-REACTIVE PROTEIN 2023-01-30 18:36:00 Jasiel [facility] EMERGENCY SERVICES 2023-01-30 05:01:00 Doctor Jaimie, [facility] AGREEMENTS AND [facility] AUTHORIZATIONS HOSPITAL ADMISSION 2023-01-30 05:01:00 Doctor Jaimie, [facility] HOSPITAL ADMISSION MISC - 2023-01-30 05:01:00 Doctor Jaimie, [facility] MEDICARE PATIENTS RIGHTS [facility] IMPORTANT MESSAGE HOME HEALTH 485 2023-01-25 05:01:00 Doctor Jaimie, [facility] HOME HEALTH - OTHER 2023-01-25 05:01:00 Doctor Jaimie [facility] HOME HEALTH 485 2023-01-25 05:01:00 Doctor Jaimie, [facility] POCT GLUCOSE (AUTOMATED) 2023-01-24 17:08:00 Jesi [facility] POCT GLUCOSE (AUTOMATED) 2023-01-24 17:08:00 Jesi Keating [facility] POCT GLUCOSE (AUTOMATED) 2023-01-24 13:17:00 Jesi Keating [facility] POCT GLUCOSE (AUTOMATED) 2023-01-24 13:17:00 Rishabh, Jesi [facility] POCT GLUCOSE (AUTOMATED) 2023-01-24 12:33:00 Jesi Keating versity of [facility] POCT GLUCOSE (AUTOMATED) 2023-01-24 12:33:00 Jesi [facility] BASIC METABOLIC PANEL (NA, 2023-01-24 09:05:00 Kelsey Beth [facility] K, CL, CO2, GLUCOSE, BUN, Medica l Branch CREATININE, CA) CBC WITH DIFF 2023-01-24 09:05:00 Kelsey Beth [facility] N-TERMINAL PRO-BNP 2023-01-24 09:05:00 Kelsey Beth [facility] BASIC METABOLIC PANEL (NA, 2023-01-24 09:05:00 Kelsey Beth [facility] K, CL, CO2, GLUCOSE, BUN, Medica l Branch CREATININE, CA) N-TERMINAL PRO-BNP 2023-01-24 09:05:00 Kelsey Beth [facility] CBC WITH DIFF 2023-01-24 09:05:00 Kelsey Beth [facility] POCT GLUCOSE (AUTOMATED) 2023-01-24 01:31:00 [facility] POCT GLUCOSE (AUTOMATED) 2023-01-24 01:31:00 Jesi Keating versity of [facility] POCT GLUCOSE (AUTOMATED) 2023-01-23 21:47:00 Jesi Keating versity of [facility] POCT GLUCOSE (AUTOMATED) 2023-01-23 21:47:00 Jesi Keating versity of [facility] POCT GLUCOSE (AUTOMATED) 2023-01-23 16:05:00 Jesi Keating versity of [facility] POCT GLUCOSE (AUTOMATED) 2023-01-23 16:05:00 Jesi Keating versity of [facility] POCT GLUCOSE (AUTOMATED) 2023-01-23 13:01:00 Jesi Keating versity of [facility] POCT GLUCOSE (AUTOMATED) 2023-01-23 13:01:00 [facility] BASIC METABOLIC PANEL (NA, 2023-01-23 09:17:00 Kelsey Beth [facility] K, CL, CO2, GLUCOSE, BUN, Medica l Branch CREATININE, CA) BASIC METABOLIC PANEL (NA, 2023-01-23 09:17:00 Kelsey Beth [facility] K, CL, CO2, GLUCOSE, BUN, Medica l Branch CREATININE, CA) OP CORRESPONDENCE 2023-01-23 05:01:00 Doctor Unassigned, [facility] POCT GLUCOSE (AUTOMATED) 2023-01-23 00:53:00 Jesi Keating versity of [facility] POCT GLUCOSE (AUTOMATED) 2023-01-23 00:53:00 Jesi Keating versity [facility] POCT GLUCOSE (AUTOMATED) 2023-01-22 21:47:00 [facility]) 2023-01-22 21:47:00 Jesi Keating [facility] POCT GLUCOSE (AUTOMATED) 2023-01-22 17:17:00 [facility] PO[facility]SE (AUTOMATED) 2023-01-22 17:17:00 Jesi Keating [facility] TRANSTHORACIC ECHO (TTE) 2023-01-22 14:32:00 Ronal [facility] TRANSTHORACIC ECHO (TTE) 2023-01-22 14:32:00 Ronal [facility] POCT GLUCOSE (AUTOMATED) 2023-01-22 13:11:00 [facility] PO[facility]SE (AUTOMATED) 2023-01-22 13:11:00 Jesi Ke[facility] C4 COMPLEMENT 2023-01-22 09:39:00 Kelsey Beth [facility] BASIC METABOLIC PANEL (NA, 2023-01-22 09:39:00 Kelsey Beth [facility] K, CL, CO2, GLUCOSE, BUN, Medica l Branch CREATININE, CA) CBC WITH DIFF 2023-01-22 09:39:00 Kelsey Beth [facility] ANTI-NUCLEAR ANTIBODY 2023-01-22 09:39:00 [facility]MINAL PRO-BNP 2023-01-22 09:39:00 Kelsey Beth [facility] ANTI-SSB(LA) 2023-01-22 09:39:00 Kelsey Beth [facility] ANTI-DOUBLE STRANDED DNA 2023-01-22 09:39:00 Kelsey Beth [facility] ELIJAH WITH REFLEX TO SSA AND 2023-01-22 09:39:[address] [facility] C4 COMPLEMENT 2023-01-22 09:39:00 Kirit Kelsey Nannette [facility] ANTI-DOUBLE STRANDED DNA 2023-01-22 09:39:00 Kelsey Beth [facility] ELIJAH WITH REFLEX TO SSA AND 2023-01-22 09:39:[address] [facility] CBC WITH DIFF 2023-01-22 09:39:00 Kelsey Beth Nannette [facility] BASIC METABOLIC PANEL (NA, 2023-01-22 09:39:00 Kelsey Beth [facility] K, CL, CO2, GLUCOSE, BUN, Medica l Branch CREATININE, CA) N-TERMINAL PRO-BNP 2023-01-22 09:39:00 Kelsey Beth [facility] ANTI-NUCLEAR ANTIBODY 2023-01-22 09:39:00 [facility] ANTI-NUCLEAR 2023-01-22 09:39:[address] [facility] ANTIBODY-PATHOLOGIST Medical [facility] INTERPRETATION ANTI-SSB(LA) 2023-01-22 09:39:00 Kelsey Beth [facility] POCT GLUCOSE (AUTOMATED) 2023-01-22 01:12:00 Jesi Keating [facility] POCT GLUCOSE (AUTOMATED) 2023-01-22 01:12:00 Jesi Keating [facility] POCT GLUCOSE (AUTOMATED) 2023-01-21 21:50:00 Jesi Keating [facility] POCT GLUCOSE (AUTOMATED) 2023-01-21 21:50:00 Rishabh, Jesi [facility] BLOOD CULTURE SCREEN 2023-01-21 16:34:00 Ronal [facility] BLOOD CULTURE SCREEN 2023-01-21 16:34:00 Ronal [facility] POCT GLUCOSE (AUTOMATED) 2023-01-21 16:32:00 Jesi Keating [facility] POCT GLUCOSE (AUTOMATED) 2023-01-21 16:32:00 Jesi Keating [facility] MRSA / MSSA SCREEN BY PCR, 2023-01-21 16:23:00 Ronal [facility] MRSA / MSSA SCREEN BY PCR, 2023-01-21 16:23:00 Ronal [facility] PNEUMOCOCCAL ANTIGEN 2023-01-21 16:21:00 Ronal [facility] LEGIONELLA URINARY ANTIGEN 2023-01-21 16:21:00 Ronal [facility] BLOOD CULTURE SCREEN 2023-01-21 16:20:00 Ronal [facility] BLOOD CULTURE SCREEN 2023-01-21 16:20:00 Ronal [facility] CT THORAX WO CONTRAST 2023-01-21 14:39:52 Ronal [facility] CT THORAX WO CONTRAST 2023-01-21 14:39:52 Ronal [facility] POCT GLUCOSE (AUTOMATED) 2023-01-21 12:56:00 Jesi Keating [facility] POCT GLUCOSE (AUTOMATED) 2023-01-21 12:56:00 Jesi Keating [facility] PHOSPHORUS 2023-01-21 09:32:00 Ronal [facility] MAGNESIUM 2023-01-21 09:32:00 Mary Anne Ronal [facility] TROPONIN I 2023-01-21 09:32:00 Mary Anne [facility] HEPATIC FUNCTION PANEL 2023-01-21 09:32:00 Ronal [facility] ([id number]) (ALB,T.PRO,BILI Medical Branch T,BU/BC,ALT,AST,ALK PHOS) BASIC METABOLIC PANEL (NA, 2023-01-21 09:32:00 Ronal [facility] K, CL, CO2, GLUCOSE, BUN, Medica l Branch CREATININE, CA) CBC WITH DIFF 2023-01-21 09:32:00 Mary Anne [facility] N-TERMINAL PRO-BNP 2023-01-21 09:32:00 Mary [facility] CBC WITH DIFF 2023-01-21 09:32:00 Mary Anne [facility] BASIC METABOLIC PANEL (NA, 2023-01-21 09:32:00 Ronal [facility] K, CL, CO2, GLUCOSE, BUN, Medica l Branch CREATININE, CA) HEPATIC FUNCTION PANEL 2023-01-21 09:32:00 Ronal [facility] ([id number]) (ALB,T.PRO,[facility] T,BU/BC,ALT,AST,ALK PHOS) MAGNESIUM 2023-01-21 09:32:00 Mary Anne [facility] PHOSPHORUS 2023-01-21 09:32:00 Mary Anne [facility] N-TERMINAL PRO-BNP 2023-01-21 09:32:00 [facility] TROPONIN I 2023-01-21 09:32:00 Mary Anne [facility] POCT GLUCOSE (AUTOMATED) 2023-01-21 01:24:00 Jesi Keating [facility] POCT GLUCOSE (AUTOMATED) 2023-01-21 01:24:00 Jesi Keating [facility] XR CHEST 1 VW 2023-01-20 22:40:07 Artis [facility] XR CHEST 1 VW 2023-01-20 22:40:07 Artis [facility] HB ECG ROUTINE & RHYTHM 2023-01-20 19:17:22 Rose Wisdom [facility] HB ECG ROUTINE & RHYTHM 2023-01-20 19:17:[address] Rose Wis[address] [facility] TROPONIN I 2023-01-20 19:16:00 [facility] 2023-01-20 19:16:00 [facility] COMP. METABOLIC PANEL 2023-01-20 19:16:00 Artis [facility] ([id number]) [facility] CBC WITH DIFF 2023-01-20 19:16:00 Artis [facility] GLYCOSYLATED HEMOGLOBIN 2023-01-20 19:16:00 Kelsey Beth [facility] ([facility]) [facility] URINALYSIS 2023-01-20 19:16:00 Artis [facility] URINE CULTURE 2023-01-20 19:16:00 Artis [facility] N-TERMINAL PRO-BNP 2023-01-20 19:16:00 Rose Wisdom [facility] CBC WITH DIFF 2023-01-20 19:16:00 Artis [facility] COMP. METABOLIC PANEL 2023-01-20 19:16:00 Artis [facility] ([id number]) [facility] TROPONIN I 2023-01-20 19:16:00 Artis [facility] N-TERMINAL PRO-BNP 2023-01-20 19:16:00 Rose Wisdom [facility] URINALYSIS 2023-01-20 19:16:00 Artis [facility] URINE CULTURE 2023-01-20 19:16:00 Artis [facility] GLYCOSYLATED HEMOGLOBIN 2023-01-20 19:16:00 Kirit, Kelsey [facility] (A1C) Medical Branch THYROID STIMULATING 2023-01-20 19:16:[address] [facility] HORMONE Medical Branch EMERGENCY DEPARTMENT 2023-01-20 05:01:00 Doctor Jaimie, [facility] DOCUMENTS [place] [facility] HOSPITAL ADMISSION 2023-01-20 05:01:00 Doctor Unassvadnana, [facility] PATIENT FINANCIAL 2023-01-13 19:14:03 Doctor Unassvandana, [facility] POLICY [facility] HOME HEALTH 485 2023-01-09 06:01:00 Doctor Jaimie, [facility] [facility] MR SHOULDER RIGHT WO 2023-01-06 15:54:26 Valentina Pavon [facility] CONTRAST Medical Branch MR SHOULDER RIGHT WO 2023-01-06 15:54:26 Valentina Pavon [facility] CONTRAST Medical Branch PATIENT QUESTIONNAIRE 2023-01-06 06:01:00 Doctor Jaimie, [facility] [facility] XR CHEST 2 VW 2022-12-20 20:12:21 Emili [facility] [place] [facility] XR HUMERUS 2 VW RIGHT 2022-12-08 17:53:00 Ebbirgit [facility] Medical Branch XR HUMERUS 2 VW RIGHT 2022-12-08 17:53:00 Ebbirgit [facility] Medical Branch XR SHOULDER 2+ VW RIGHT 2022-12-08 17:52:00 EbSamuel genao [facility] Medical Branch XR SHOULDER 2+ VW RIGHT 2022-12-08 17:52:00 Lolis [facility] Medical Branch PULMONARY REHAB SESSION 2022-12-06 06:00:00 Doctor Jaimie, [facility] REPORT [facility] PULMONARY REHAB SESSION 2022-12-01 06:00:00 Doctor Jaimie, [facility] REPORT [facility] [facility] PULMONARY REHAB SESSION 2022-12-01 06:00:00 Doctor Jaimie, [facility] REPORT [facility] [facility] PULMONARY REHAB SESSION 2022-11-29 06:00:00 Doctor Unassvandana, [facility] REPORT [facility] [facility] PULMONARY REHAB ITP REPORT 2022-11-23 23:04:00 Doctor Unassigned , [facility] [place] [facility] PULMONARY REHAB ITP REPORT 2022-11-23 23:04:00 Doctor Unassigned , [facility] [facility] PULMONARY REHAB ITP REPORT 2022-11-23 03:20:00 Doctor Unassvandana , [facility] [facility] PULMONARY REHAB SESSION 2022-11-22 06:00:00 Doctor Jaimie, [facility] REPORT [facility] PULMONARY REHAB SESSION 2022-11-15 06:00:00 Doctor Unassvandana, [facility] REPORT [facility] PULMONARY REHAB SESSION 2022-11-15 06:00:00 Doctor Jaimie, [facility] REPORT [facility] [facility] DME/SUPPLY JUSTIFICATION 2022-11-04 06:01:00 Doctor Jaimie, [facility] [facility] PULMONARY REHAB SESSION 2022-10-27 06:00:00 Doctor Jaimie, [facility] REPORT [facility] PULMONARY REHAB ITP REPORT 2022-10-19 23:03:00 Doctor Jaimie , [facility] PULMONARY FUNCTION TEST 2022-10-04 17:10:10 Jocelyn Mathew [facility] (RESULTS) Medical Branch ANTI-NUCLEAR ANTIBODY 2022-09-16 15:38:00 [facility] SCREEN Medical Branch ANTI-NUCLEAR ANTIBODY 2022-09-16 15:38:00 [facility] TITER Medical Branch ANTI-NUCLEAR 2022-09-16 15:38:00 Willi [facility] [place] ANTIBODY-PATHOLOGIST Medical [facility] INTERPRETATION ASSIGNMENT OF BENEFITS 2022-09-16 15:21:51 Doctor Johannassvandana, [facility] [facility] PATIENT QUESTIONNAIRE 2022-08-25 05:01:00 Doctor Jaimie [facility] FLU 2022-08-23 19:22:04 Tino [facility] [place] VACC(),65+YR,0.5 Medica l Branch ML,IM,ADJUVANTED,QUAD(FLUA D) CONSENT/REFUSAL FOR 2022-08-23 18:58:21 Doctor Unassigned, Karen [facility] DIAGNOSIS AND TREATMENT [place] [facility] SARS-COV-2 COVID-19 2022-08-19 18:07:02 Doctor Unassigned, [facility] OK-SUCROSE VACCINE 12 [place] [facility] YRS+, BIVALENT 0.3ML, IM, (PFIZER LOERA TOP BOOSTER) XR CHEST 2 VW 2022-07-27 16:49:00 Samuel Danielle Sabina o f [facility] Encounters Start End Encounter Admission Attending Care Care Encounter Source Date/Time Date/Time Type Type Clinicians Facility Department ID 2023-02-28 Outpatient 3 [id number] E[facility] PUL [id number] [facility] 01:20:23 [facility] [place] [facility] 2023-02-27 Outpatient 3 [id number] ENC[facility] PUL [id number] [facility] 15:24:11 0424 [facility] [place] 2023-02-21 Inpatient RhiannonMIGEL [facility] [id number] [place] [employer] 18:38:00 Elder [id number] [facility] [id number] [facility] [id number] [facility] 2023-02-19 Outpatient 3 [id number] ENCPL REF [id number] [facility] 09:41:59 0416 [facility] [place] 2023-02-18 Outpatient 3 [id number] ENCPL REF [id number] [facility] 12:33:44 0415 [facility] [place] 2023-02-15 Outpatient 3 [id number] ENCPL PUL [id number] [facility] 11:03:41 0412 [facility] [place] 2023-02-13 Outpatient 3 [id number] ENCPL REF [id number] [facility] 02:08:31 0410 [facility] [place] 2023-02-11 Outpatient 3 [id number] ENCPL REF [id number] [facility] 15:11:40 0408 [facility] [place] 2023-05-20 2023-05-20 Outpatient R KIERA STOVER [facility] [id number] [facility] 20:00:00 20:00:00 KIERA STOVER [facility] 2023-03-31 2023-03-31 Outpatient R COY BARRAGAN [facility] [id number] Univers 09:00:00 09:00:00 COY BARRAGAN i ty of [facility] 2023-03-10 2023-03-10 Telephone [facility] 1.2.840.114 1 [id number] Univers 00:00:00 00:00:00 Jocelyn BARBOZA 350.1.13.10 i [place] [id number] Mn dical [facility] 044 [facility] 2023-03-08 2023-03-08 Orders Doctor DALY 1.2.840.114 [id number] Univers 00:00:00 00:00:00 Only Unassigned, IAN 350.1.13.10 ity of [place] [facility] 4.2.7.2.[id number] [facility] 009 Branch 2023-03-06 2023-03-06 Transition DALILA Graham 1.2.840.114 10 [id number] Univers 00:00:00 00:00:00 of Care Naomipio WOODALL 350.1.13.10 i ty of [place] [place] [id number] [facility] 403 Branch 2023-02-23 2023-03-03 Inpatient X SATHYA HERRINGNAM [facility] [id number] Univers 04:28:00 17:22:00 ASHU HERRING ity [facility] 2023-02-23 2023-03-03 [facility] Huy Taylor [facility] 1.2.840.1 14 [id number] Univers 04:28:00 17:22:00 Encounter Tan Dahl [facility] 350.1.13.10 ity of [place] Cam[place] 4.2.7.2.686 [place] Ashu Herring [facility] [id number] [address] ([facility]) 2023-02-24 2023-02-24 Outpatient R PRIYANKATHE [facility] [id number] Univers 15:00:00 15:00:00 JOCELYN espinosa [facility] 2023-02-21 2023-02-23 [facility] [id number] [place] [employer] 18:38:00 03:30:00 [place] 2023-02-22 2023-02-22 Transition DALILA Graham 1.2.840.114 10 [id number] Univers 00:00:00 00:00:00 of Care Naomi [place] 350.1.13.10 i [place] [id number] [address] 2023-02-08 2023-02-21 Inpatient U RHIANNON [facility] [id number] Univers 09:59:00 17:31:00 ELDER francisca [facility] 2023-02-08 2023-02-21 Hospital Arcelia Merrill [facility] 1.2.84 0.114 [id number] Univers 09:59:00 17:31:00 Encounter Claudy [facility] 350.1.13.10 ity of Hector Gregorio 4.2.7.2.686 [facility] [id number] [facility] 115 Branch [facility] Ashu Herring ([facility]) Elder Jurado 2023-02-13 2023-02-13 [facility] 1.2.840.114 [id number] Univers 00:00:00 00:00:00 Allison BARBOZA 350.1.13.10 [place] [id number] Mn dical NAL 044 Branch BUILDING 2023-02-09 2023-02-09 Outpatient R PRIYANKA [facility] [id number] Univers 11:00:00 11:00:00 JOCELYN espinosa [facility] 2023-02-09 2023-02-09 Patient Joshua 1.2.840.2 [id number] Univers 00:00:00 00:00:00 Outreach Brittni Esquivel 86699.1.1 ity of 3.104.2.7 [place] .3.294855 Medica l .8 Branch 2023-02-08 2023-02-08 Travel 1.2.840.1 1.2.515.448 [id number] Univers 00:00:00 00:00:00 40755.1.1 350.1.13.10 ity of 3.104.2.7 [place].3.698 [place] .3.889418 084.8 Medica l .8 Branch 2023-02-07 2023-02-07 Telephone Barragan, 1.2.840.2 [id number] Univers 00:00:00 00:00:00 Shiwan 58796.1.1 ity of 3.104.2.7 [place] .3.456707 Medica l .8 Branch 2023-02-06 2023-02-06 Refill Justin, 1.2.840.0 [id number] Univers 00:00:00 00:00:00 Katarzyna Jose L 00061.1.1 ity of 3.104.2.7 [place] .3.817112 Medica l .8 Branch 2023-02-06 2023-02-06 Refill Edvalerie, 1.2.840.2 [id number] Univers 00:00:00 00:00:00 Peter 64815.1.1 ity of 3.104.2.7 [place] .3.739000 Medica l .8 Branch 2023-02-06 2023-02-06 Telephone Priyanka, 1.2.840.6 [id number] Univers 00:00:00 00:00:00 Peter 95006.1.1 ity of 3.104.2.7 [place] .3.031970 Medica l .8 Branch 2023-01-30 2023-02-05 [facility] [id number] Univers 12:51:00 17:36:00 NICOLE ity of [facility] 2023-01-30 2023-02-05 [facility] Jasiel, 1.2.840.3 [id number] Univers 12:51:00 17:36:00 Tristen Solizlani 85825.1.1 it y of 3.104.2.7 [place] .3.622083 Medica l .8 Branch 2023-02-05 2023-02-05 Refill [place], 1.2.840.0 [id number] Univers 00:00:00 00:00:00 Peter 38418.1.1 ity of 3.104.2.7 [place] .3.235502 Medica l .8 Branch 2023-02-05 2023-02-05 Refill [place], 1.2.840.0 [id number] Univers 00:00:00 00:00:00 Peter 77280.1.1 ity of 3.104.2.7 [place] .3.198788 Medica l .8 Branch 2023-02-01 2023-02-01 Telephone [place], 1.2.840.1 [id number] Univers 00:00:00 00:00:00 Jocelyn 45602.1.1 ity of 3.104.2.7 [place] .3.569689 Medica l .8 Branch 2023-02-01 2023-02-01 Telephone [place], 1.2.840.0 [id number] Univers 00:00:00 00:00:00 Jocelyn 61811.1.1 ity of 3.104.2.7 [place] .3.061148 Medica l .8 [place] 2023-01-31 2023-01-31 Fay PAVON [facility] [id number] Univers 14:00:00 14:00:00 VALENTINA ity of [facility] 2023-01-31 2023-01-31 Travel 1.2.840.1 1.2.096.113 [id number] Univers 00:00:00 00:00:00 75036.1.1 350.1.13.10 ity of 3.104.2.7 4.[place]7.3.698 [place] .3.584164 084.8 Medica l .8 Branch 2023-01-30 2023-01-30 Office Barragan, 1.2.840.2 [id number] Univers 10:30:00 14:11:58 Visit Coy 88496.1.1 ity of 3.104.2.7 [place] .3.882930 Medica l .8 [place] 2023-01-30 2023-01-30 Office Fabiana, 1.2.840.6 [id number] Univers 11:20:00 13:12:03 Visit Alisa Esquivel 90930.1.1 ity of 3.104.2.7 [place] .3.458279 Medica l .8 [place] 2023-01-30 2023-01-30 Travel 1.2.840.1 1.2.679.146 [id number] Univers 00:00:00 00:00:00 38738.1.1 350.1.13.10 ity of 3.104.2.7 4[place]7.3.698 [place] .3.371185 084.8 Medica l .8 [place] 2023-01-25 2023-01-25 Orders Doctor 1.2.840.9 [id number] Univers 00:00:00 00:00:00 Only Unassigned, 75291.1.1 ity of [place] 3.104.2.7 [place] .3.769033 Medica l .8 [place] 2023-01-20 2023-01-24 Inpatient X RISHABH [facility] [id number] Univers 13:38:00 16:30:00 JESI espinosa of [facility] 2023-01-20 2023-01-24 Hospital Rose Wisdom 1.2.840.7 [id number] Univers 13:38:00 16:30:00 Encounter Jesi Keating 90273.1.1 ity of 3.104.2.7 [place] .3.523012 Medica l .8 [place] 2023-01-20 2023-01-20 Outpatient R PRIYANKA [facility] [id number] Univers 14:40:00 14:40:00 JOCELYN espinosa of [facility] 2023-01-20 2023-01-20 Telephone Willi 1.2.840.1 [id number] Univers 00:00:00 00:00:00 Shiwan 10438.1.1 ity of 3.104.2.7 [place] .3.252141 Medica l .8 Branch 2023-01-20 2023-01-20 Travel 1.2.840.1 1.2.414.477 [id number] Univers 00:00:00 00:00:00 38560.1.1 350.1.13.10 ity of 3.104.2.7 4[place]7.3.698 [place] .3.785733 084.8 Medica l .8 Branch 2023-01-19 2023-01-19 Telephone Barragan, 1.2.840.9 [id number] Univers 00:00:00 00:00:00 Shiwan 01640.1.1 ity of 3.104.2.7 [place] .3.056453 Medica l .8 [place] 2023-01-19 2023-01-19 Telephone Priyanka, 1.2.840.6 [id number] Univers 00:00:00 00:00:00 Peter 60335.1.1 ity of 3.104.2.7 [place] .3.400212 Medica l .8 [place] 2023-01-17 2023-01-17 Outpatient Tan CADET [facility] [id number] Univers 14:00:00 14:00:00 ORLIN ity of [facility] 2023-01-17 2023-01-17 Telephone Priyanka, 1.2.840.0 [id number] Univers 00:00:00 00:00:00 Peter 54655.1.1 ity of 3.104.2.7 [place] .3.387135 Medica l .8 [place] 2023-01-13 2023-01-13 Outpatient R NAYELI [facility] [id number] Univers 13:30:00 14:07:27 AFSHAN ity of [facility] 2023-01-13 2023-01-13 Office Nayeli, 1.2.840.6 [id number] Univers 13:30:00 14:07:27 Visit Afshan 08579.1.1 i ty of A 3.104.2.7 [place] .3.351057 Medica l .8 [place] 2023-01-13 2023-01-13 Travel 1.2.840.1 1.2.395.843 [id number] Univers 00:00:00 00:00:00 29934.1.1 350.1.13.10 ity of 3.104.2.7 [place].3.698 [place] .3.199071 084.8 Medica l .8 [place] 2023-01-06 2023-01-06 Outpatient R SAVANAHTHE [facility] [id number] Univers 08:37:05 23:59:00 VALENTINA ity of [facility] 2023-01-06 2023-01-06 Hospital Pavon, 1.2.840.0 [id number] Univers 08:37:05 23:59:00 Encounter Valentina 05194.1.1 it y of 3.104.2.7 [place] .3.626835 Medica l .8 [place] 2022-12-29 2022-12-29 Telephone Leonel, 1.2.840.7 [id number] Univers 00:00:00 00:00:00 Meron C 05522.1.1 ity of 3.104.2.7 [place] .3.044959 Medica l .8 [place] 2022-12-26 2022-12-26 Office Fabiana, 1.2.840.6 [id number] Univers 14:20:00 15:00:00 Visit Alisa Esquivel 86703.1.1 ity of 3.104.2.7 [place] .3.942373 Medica l .8 [place] 2022-12-26 2022-12-26 Outpatient R FABIANA [facility] [id number] Univers 14:20:00 14:20:00 ALISA ity of [facility] 2022-12-26 2022-12-26 Travel 1.2.840.1 1.2.238.509 [id number] Univers 00:00:00 00:00:00 06253.1.1 350.1.13.10 ity of 3.104.2.7 4[place]7.3.698 [place] .3.188637 084.8 Medica l .8 [place] 2022-12-23 2022-12-23 Outpatient R PRIYANKA, [facility] [id number] Univers 13:00:00 14:06:22 PETER ity of [facility] 2022-12-23 2022-12-23 Office Priyanka, 1.2.840.8 [id number] Univers 13:00:00 14:06:22 Visit Jocelyn 81271.1.1 ity of 3.104.2.7 [place] .3.882631 Medica l .8 [place] 2022-12-23 2022-12-23 Office Barragan, 1.2.840.9 [id number] Univers 09:00:00 09:54:56 Visit Coy 56111.1.1 ity of 3.104.2.7 [place] .3.566734 Medica l .8 [place] 2022-12-23 2022-12-23 Patient Blane, 1.2.840.4 [id number] Univers 00:00:00 00:00:00 Outreach Gisele Maddox 88530.1.1 i ty of 3.104.2.7 [place] .3.532420 Medica l .8 [place] 2022-12-22 2022-12-22 Office Dyllan, 1.2.840.3 [id number] Univers 09:30:00 09:30:00 Visit Tiana Esquivel 10355.1.1 ity of 3.104.2.7 [place] .3.368787 Medica l .8 [place] 2022-12-22 2022-12-22 Outpatient R DYLLAN, [facility] [id number] Univers 09:30:00 09:27:10 TIANA ity of [facility] 2022-12-22 2022-12-22 Travel 1.2.840.1 1.2.004.882 [id number] Univers 00:00:00 00:00:00 00701.1.1 350.1.13.10 ity of 3.104.2.[place].698 [place] .3.9955[place] 084.8 Medica l .8 [place] 2022-12-20 2022-12-20 Outpatient R RADIOLOGY [facility] [id number] Univers 13:52:58 23:59:00 ity of [facility] 2022-12-20 2022-12-20 Hospital Radiology 1.2.840.0 [id number] Univers 13:52:58 23:59:00 Encounter Robyn Mock 76394.1.1 ity of 3.104.2.7 [place] .3.385934 Medica l .8 [place] 2022-12-20 2022-12-20 Travel 1.2.840.1 1.2.011.119 [id number] Univers 00:00:00 00:00:00 69714.1.1 350.1.13.10 ity of 3.104.2.[place].698 [place] .3.151303 084.8 Medica l .8 [place] 2022-12-15 2022-12-15 Outpatient R HELIO, [facility] [id number] Univers 14:00:00 14:00:00 ORLIN ity [facility] 2022-12-14 2022-12-14 Patient Joshua, 1.2.840.0 [id number] Univers 00:00:00 00:00:00 Outreach Brittni Esquivel 01330.1.1 ity of 3.104.2.7 [place] .3.578008 Medica l .8 [place] 2022-12-13 2022-12-13 Telephone Leonel, 1.2.840.9 [id number] Univers 00:00:00 00:00:00 Meron Wooten 06206.1.1 ity of 3.104.2.7 [place] .3.518784 Medica l .8 [place] 2022-12-12 2022-12-12 Outpatient R [facility] SYSTEM [id number] Univers 15:00:00 15:19:30 VALENTINA ity [facility] 2022-12-12 2022-12-12 Office Pavon, 1.2.840.4 [id number] Univers 15:00:00 15:19:30 Visit Valentina 78656.1.1 ity of 3.104.2.7 [place] .3.183211 Medica l .8 [place] 2022-12-12 2022-12-12 Travel 1.2.840.1 1.2.899.403 5169 86765 Univers 00:00:00 00:00:00 82611.1.1 350.1.13.10 ity of 3.104.2.7 [place].3.698 [place] .3.916682 084.8 Medica l .8 [place] 2022-12-08 2022-12-08 [facility], 1.2.840.7 [id number] 100 [id number] Univers 11:38:53 23:59:00 Encounter Samuel 26608.1.1 it y of 3.104.2.7 [place] .3.498476 Medica l .8 [place] 2022-12-08 2022-12-08 Outpatient Tan DANIELLE [facility] [id number] Univers 11:38:52 23:59:00 RANIA ity of [facility] 2022-12-08 2022-12-08 [facility], 1.2.840.9 [id number] 100 [id number] Univers 11:38:52 23:59:00 Encounter Samuel 24712.1.1 it y of 3.104.2.7 [place] .3.059162 Medica l .8 [place] 2022-12-08 2022-12-08 Urgent Unknown, Attending 1.2.840.1 [id number] Univers 11:20:00 11:47:11 Care SaskiabillSamuel 54819.1.1 ity of 3.104.2.7 [place] .3.715978 Medica l .8 [place] 2022-12-08 2022-12-08 Telephone Leonel, 1.2.840.1 [id number] 100 [id number] Univers 00:00:00 00:00:00 Meron C 99039.1.1 ity of 3.104.2.7 [place] .3.049457 Medica l .8 [place] 2022-12-08 2022-12-08 Travel 1.2.840.1 1.2.714.318 1207 12381 Univers 00:00:00 00:00:00 23334.1.1 350.1.13.10 ity of 3.104.2.7 [place].3.698 [place] .3.763714 084.8 Medica l .8 [place] 2022-12-06 2022-12-06 Outpatient Tan CADET, [facility] [id number] Univers 14:00:00 16:11:20 ORLIN ity of [facility] 2022-12-06 2022-12-06 Ancillary Helio, 1.2.840.7 [id number] Univers 14:00:00 16:11:20 Visit Orlin Maldonado 38971.1.1 ity of 3.104.2.7 [place] .3.955629 Medica l .8 [place] 2022-12-06 2022-12-06 Travel 1.2.840.1 1.2.670.451 3658 [id number] Univers 00:00:00 00:00:00 91515.1.1 350.1.13.10 ity of 3.104.2.7 [place].3.698 [place] .3.180626 084.8 Medica l .8 [place] 2022-12-01 2022-12-01 Ancillary Helio, 1.2.840.2 [id number] Univers 14:00:00 16:26:42 Visit Orlin Maldonado 40685.1.1 ity of 3.104.2.7 [place] .3.897136 Medica l .8 [place] 2022-12-01 2022-12-01 Orders Doctor 1.2.840.2 [id number] Univers 00:00:00 00:00:00 Only Unassigned, 42339.1.1 ity of [place] 3.104.2.7 [place] .3.050941 Medica l .8 [place] 2022-11-29 2022-11-30 Ancillary Helio, 1.2.840.9 [id number] 998 [id number] Univers 14:00:00 08:45:39 Visit Orlin Maldonado 43949.1.1 ity of 3.104.2.7 [place] .3.043926 Medica l .8 [place] 2022-11-30 2022-11-30 Travel 1.2.840.1 1.2.485.087 5716 03506 Univers 00:00:00 00:00:00 45202.1.1 350.1.13.10 ity of 3.104.2.7 [place].3.698 [place] .3.867905 084.8 Medica l .8 [place] 2022-11-24 2022-11-24 Telephone Leonel, 1.2.840.1 [id number] Univers 00:00:00 00:00:00 Meron Wooten 69581.1.1 ity of 3.104.2.7 [place] .3.558409 Medica l .8 [place] 2022-11-23 2022-11-23 Orders Doctor 1.2.840.1 [id number] Univers 00:00:00 00:00:00 Only Unassigned, 32243.1.1 ity of [place] 3.104.2.7 [place] .3.608019 Medica l .8 [place] 2022-11-23 2022-11-23 Refill Priyanka, 1.2.840.4 [id number] 99 [id number] Univers 00:00:00 00:00:00 Jocelyn 04560.1.1 ity of 3.104.2.7 [place] .3.639496 Medica l .8 [place] 2022-11-22 2022-11-22 Ancillary Cadet, 1.2.840.0 [id number] 997 19249 Univers 14:00:00 15:18:41 Visit Orlin Maldonado 81025.1.1 ity of 3.104.2.7 [place] .3.860183 Medica l .8 [place] 2022-11-22 2022-11-22 Travel 1.2.840.1 1.2.033.407 3763 7289 Univers 00:00:00 00:00:00 64982.1.1 350.1.13.10 ity of 3.104.2.7 4.[place].7.3.698 [place] .3.949047 084.8 Medica l .8 [place] 2022-11-17 2022-11-17 Telephone Castaneda, 1.2.840.0 [id number] 997 [id number] Univers 00:00:00 00:00:00 Meron C 04816.1.1 ity of 3.104.2.7 [place] .3.987366 Medica l .8 [place] 2022-11-15 2022-11-15 Ancillary Cadet, 1.2.840.8 [id number] 995 [id number] Univers 14:00:00 15:07:28 Visit Orlin Maldonado 36375.1.1 ity of 3.104.2.7 [place] .3.884845 Medica l .8 [place] 2022-11-15 2022-11-15 Telephone Tino, 1.2.840.3 [id number] 997 71846 Univers 00:00:00 00:00:00 Mauri 87982.1.1 ity of 3.104.2.7 [place] .3.568687 Medica l .8 [place] 2022-11-15 2022-11-15 Orders Doctor 1.2.840.3 [id number] 464 Univers 00:00:00 00:00:00 Only Unassigned, 91862.1.1 ity of [place] 3.104.2.7 [place] .3.757141 Medica l .8 [place] 2022-11-15 2022-11-15 Telephone Barragan, 1.2.840.8 [id number] 997 97327 Univers 00:00:00 00:00:00 Coy 40422.1.1 ity of 3.104.2.7 [place] .3.877163 Medica l .8 [place] 2022-11-15 2022-11-15 Travel 1.2.840.1 1.2.727.581 8033 8953 Univers 00:00:00 00:00:00 48707.1.1 350.1.13.10 ity of 3.104.2.7 [place].3.698 [place] .3.100569 084.8 Medica l .8 [place] 2022-11-11 2022-11-11 Office Willi [facility] 1.2.840.114 [id number] Univers 09:30:00 10:15:13 Visit Coy BARBOZA 350.1.13.10 i ty [facility] 4.[place] 921.7239886 Mn dical NAL 085 [facility] 2022-11-11 2022-11-11 Outpatient R COY BARRAGAN [facility] 10 [id number] Univers 09:30:00 10:15:13 COY BARRAGAN i ty of [facility] 2022-11-08 2022-11-08 Telephone [facility] 1.2.242.508 2241 3286 Univers 00:00:00 00:00:00 Meron C [place] 350.1.13.10 i ty of [place] 4[place] 946.2815988 [facility] 296 [facility] 2022-11-07 2022-11-07 Telephone [facility] 1.2.162.050 7739 8617 Univers 00:00:00 00:00:00 Meron C [place] 350.1.13.10 i ty of [place] 4[place] 198.0049090 [facility] 296 [facility] 2022-11-04 2022-11-04 Orders Doctor DALY 1.2.840.114 [id number] Univers 00:00:00 00:00:00 Only Unassigned, IAN 350.1.13.10 ity of [place] [facility] 4.2.7.2.686 [place] as 440.9019322 [facility] dk 009 [place] 2022-11-03 2022-11-03 Outpatient R HELIO [facility] [id number] Univers 14:00:00 15:20:11 ORLIN espinosa of [facility] 2022-11-03 2022-11-03 Ancillary Therapist, Adc Pulmonary [facility] 1.2.840.114 [id number] Univers 14:00:00 15:20:11 Visit Orlin Cadet 350.1.13. 10 ity of [place].2.[place] 731.9260576 Mn dical NAL 296 [facility] 2022-11-01 2022-11-01 Ancillary Therapist, Adc Pulmonary [facility] 1.2.840.114 [id number] Univers 14:00:00 15:52:26 Visit Orlin Cadet 350.1.13. 10 ity of [place].7.2.[place] 954.1867263 Mn dical NAL 296 [facility] 2022-10-28 2022-10-28 Telephone Willi [facility] 1.2.033.121 8802 6933 Univers 00:00:00 00:00:00 Coy BARBOZA 350.1.13.10 i ty of [place] 4[place] 553.4057836 Mn dical NAL 085 [facility] 2022-10-28 2022-10-28 Memo Banejree [facility] 1.2.840.114 993 14232 Univers 00:00:00 00:00:00 Allison BARBOZA 350.1.13.10 ity of [place].2.[place] 892.0598548 Mn dical NAL 231 [facility] 2022-10-27 2022-10-27 Ancillary Therapist, [facility] Pulmonary [facility] 1.2.840.114 [id number] Univers 13:00:00 14:55:08 Visit Orlin Cadet 350.1.13. 10 ity of [place] 4[place]7.2.[place] 936.5676675 Mn dical NAL 296 [facility] 2022-10-27 2022-10-27 Telephone Willi [facility] 1.2.501.339 4308 2428 Univers 00:00:00 00:00:00 Coy BARBOZA 350.1.13.10 i ty of [place] 4.2.7.2.[place] 688.3644702 Mn dical NAL 059 [facility] 2022-10-27 2022-10-27 Orders Doctor DALY 1.2.840.114 [id number] Univers 00:00:00 00:00:00 Only Unassigned, IAN 350.1.13.10 ity of [place] [facility] 4.2.7.2.686 [place] as [phone] [address] 2022-10-25 2022-10-25 Ancillary Therapist, Adc Pulmonary [facility] 1.2.840.114 [id number] Univers 14:00:00 16:19:49 Visit Orlin Cadet 350.1.13. 10 ity of [place] 4[place]2.7.2.[place] 227.8481153 Mn dical NAL 296 [facility] 2022-10-25 2022-10-25 Outpatient R HELIO [facility] [id number] Univers 14:00:00 14:00:00 ORLIN ity [facility] 2022-10-24 2022-10-24 Memo [facility] 1.2.840.114 [id number] [id number] Univers 00:00:00 00:00:00 Allison BARBOZA 350.1.13.10 ity of [place] 4[place] 306.3359746 Mn dical [facility] 231 [facility] 2022-10-24 2022-10-24 Telephone [facility] 1.2.128.185 8900 9497 Univers 00:00:00 00:00:00 Meron BARBOZA 350.1.13.10 i ty [place] 4[place].2.[place] 205.5604539 Mn dical NAL 296 [facility] 2022-10-19 2022-10-19 Telephone [facility] 1.2.155.975 0297 7172 Univers 00:00:00 00:00:00 Meron BARBOZA 350.1.13.10 i ty [facility] 4.2.[place].2.[place] 312.0436871 Mn dical NAL 296 [facility] 2022-10-19 2022-10-19 Orders Doctor KAUFFMAN 1.2.840.114 [id number] Univers 00:00:00 00:00:00 Only Unassigned, IAN 350.1.13.10 ity of [place] [facility] 4.2.7.2.[address] [facility] 009 [place] 2022-10-13 2022-10-13 Ancillary Therapist, [facility] Pulmonary [facility] 1.2.840.114 [id number] Univers 14:00:00 14:00:00 Visit Orlin Cadet 350.1.13. 10 ity of [place] 4[place]2.7.2.[place] 670.9584279 Mn dical NAL 296 [facility] 2022-10-11 2022-10-11 Telephone Leonel [facility] 1.2.463.420 9438 7866 Univers 00:00:00 00:00:00 Meron BARBOZA 350.1.13.10 i ty of [place] 4[place]7.2.[place] 943.7597853 Mn dical NAL 296 [facility] 2022-10-04 2022-10-04 Refrigerating Engineer Therapist, [facility] Respiratory [facility] 1.2.840.114 [id number] Univers 11:00:00 11:30:00 Visit Orlin Cadet 350.1.13. 10 ity [place]2.7.[place] [address] [id number] [facility] 083 [place] 2022-10-04 2022-10-04 Outpatient R HELIO [facility] [id number] Univers 11:00:00 11:00:00 ORLIN ity of [facility] 2022-10-04 2022-10-04 Orders [facility] 1.2.840.114 [id number] Univers 00:00:00 00:00:00 Only Jocelyn BARBOZA 350.1.13.10 i ty [place] 4[place] 530.0000540 Mn dical NAL 044 [facility] 2022-09-28 2022-09-28 Memo Banerjee [facility] 1.2.840.114 [id number] 10777 Univers 00:00:00 00:00:00 Allison BARBOZA 350.1.13.10 ity [place].2.[place] 224.0864766 Mn dical NAL 231 [facility] 2022-09-27 2022-09-27 Outpatient R PRIYANKA [facility] 1042 [id number] Univers 13:00:00 13:56:58 JOCELYN ity of [facility] 2022-09-27 2022-09-27 Office Priyanka [facility] 1.2.840.114 [id number] [id number] Univers 13:00:00 13:56:58 Visit Jocelyn TAMRA 350.1.13.10 i ty of [place] 4[place]7.[place] 538.3020979 Mn dical NAL 044 [facility] 2022-09-23 2022-09-23 Outpatient R TINO [facility] [id number] Univers 14:20:00 14:34:23 MARALNEO ity o f [facility] 2022-09-23 2022-09-23 Office [facility] 1.2.840.114 [id number] Univers 14:20:00 14:34:23 Visit Mauri BARBOZA 350.1.13.10 ity of [facility] 4.2.7.2.[place] 078.3230559 Mn dical NAL 059 [facility] 2022-09-20 2022-09-20 Outpatient R COY BARRAGAN [facility] 10 [id number] Univers 12:37:56 23:59:00 COY BARRAGAN i ty of [facility] 2022-09-20 2022-09-20 Hospital [facility] 1.2.840.114 [id number] Univers 12:37:56 23:59:00 Encounter Coy BARBOZA 350.1.13.10 it[place] [id number] [address] 2022-09-16 2022-09-16 Refrigerating Engineer Matt, Adc Lab Main [facility] 1.2.8 40.114 [id number] Univers 10:30:00 10:45:00 Visit Coy Barragan 350.1.13.10 ity of [place] 4[place].2.[place] 231.6269630 Mn dical NAL 353 [facility] 2022-09-16 2022-09-16 Outpatient R COY BARRAGAN [facility] 10 [id number] Univers 10:30:00 10:30:00 COY BARRAGAN i ty of [facility] 2022-09-16 2022-09-16 Orders Doctor DALY 1.2.840.114 [id number] Univers 00:00:00 00:00:00 Only Unassigned, IAN 350.1.13.10 ity of [facility] 4.2.7.2.686 [place] [id number] [address] 2022-09-15 2022-09-15 Outpatient R COY BARRAGAN [facility] 10 [id number] Univers 11:00:00 12:09:41 COY BARRAGAN i ty [facility] 2022-09-15 2022-09-15 Office Willi [facility] 1.2.840.114 [id number] Univers 11:00:00 12:09:41 Visit Coy BARBOZA 350.1.13.10 i ty [facility] 4[place]2.7.2.[place] 621.4450823 Mn dical NAL 085 [facility] 2022-09-06 2022-09-06 Nurse Visit, [facility] Nurse [facility] 1.2.840.1 14 [id number] Univers 13:30:00 15:58:16 Visit Mauri Jiménez 350.1.13.10 ity [facility] 4.2.7.2.[place] 579.8238653 Mn dical NAL 059 [facility] 2022-09-06 2022-09-06 Outpatient R TINO [facility] [id number] Univers 13:30:00 13:30:00 MAURI espinosa o f [facility] 2022-09-06 2022-09-06 Refrigerating Engineer 2, Abdiaziz Lab [facility] 1.2.840.114 [id number] Univers 13:15:00 13:30:00 Visit Jocelyn Mathew 350.1.13.10 ity of [facility] 4.2.7.2.[place] [phone] Mn dical NAL 353 [facility] 2022-09-05 2022-09-05 Outpatient R REYESGRANTCALISTATHE [facility] [id number] [id number] Univers 14:36:42 23:59:00 JOCELYN espinosa [facility] 2022-09-02 2022-09-02 Office [facility] 1.2.620.806 [id number] [id number] Univers 13:45:00 14:00:00 Visit Afshan [facility] 350.1.13.10 ity [facility] 4.2.7.2.[place] [id number] [address] 2022-09-02 2022-09-02 Outpatient R NAYELITHE [facility] [id number] Univers 13:45:00 13:45:00 AFSHAN [facility] 2022-08-29 2022-08-29 Outpatient R PRIYANKATHE [facility] 1042 [id number] Univers 14:00:00 14:00:00 JOCELYN alberta [facility] 2022-08-28 2022-08-28 Telephone [facility] 1.2.840.114 [id number] Univers 00:00:00 00:00:00 Jocelyn BARBOZA 350.1.13.10 i ty [place] 4[place]7.2.[place] [id number] [facility] 044 [facility] 2022-08-25 2022-08-25 Outpatient R PRIYANKATHE [facility] 1042 [id number] Univers 16:00:00 17:08:44 JOCELYN espinosa [facility] 2022-08-25 2022-08-25 Office [facility] 1.2.840.114 [id number] [id number] Univers 16:00:00 17:08:44 Visit Jocelyn BARBOZA 350.1.13.10 i ty of [place] 4.[place].2.[place] 439.6791117 Mn dical [facility] 044 [facility] 2022-08-25 2022-08-25 Outpatient R LAVONNETHE [facility] 1042 [id number] Univers 13:00:00 13:00:00 ALLISON espinosa of [facility] 2022-08-25 2022-08-25 Orders Doctor DALY 1.2.840.114 [id number] Univers 00:00:00 00:00:00 Only Unassigned, IAN 350.1.13.10 ity of [place] [facility] 4.2.7.2.[id number] [facility] 009 [place] 2022-08-24 2022-08-24 Patient [facility] 1.2.840.114 [id number] Univers 00:00:00 00:00:00 Secure Msg Mauri TAMRA 350.1.13.10 it[facility] 4.2.[place].2.[place] 079.0527197 Mn dical NAL 059 [facility] 2022-08-23 2022-08-23 Hospital [facility] 1.2.840.114 [id number] Univers 14:50:41 23:59:00 Encounter Mauri TAMRA 350.1.13.10 ity [facility] 4.2.[place] [id number] [facility] 807 [place] 2022-08-23 2022-08-23 Refrigerating Engineer Matt, Abdiaziz Lab Main [facility] 1.2.8 40.114 [id number] Univers 15:30:00 15:45:00 Visit Mauri Jiménez 350.1.13.10 [place]y [place] 4.[place].2.[place] [id number] Mn dical NAL 353 [facility] 2022-08-23 2022-08-23 Outpatient [facility] [id number] Univers 14:20:00 14:33:17 MAURI espinosa o f [facility] 2022-08-23 2022-08-23 Office [facility] 1.2.840.114 [id number] Univers 14:20:00 14:33:17 Visit Mauri TAMRA 350.1.13.10 ity of [place] 4.[place].7.2.[place] 036.7248521 Mn dical NAL 059 [facility] 2022-08-23 2022-08-23 Orders Doctor DALY 1.2.840.114 [id number] Univers 00:00:00 00:00:00 Only Unassigned, IAN 350.1.13.10 ity of [place] [facility] 4.2.7.2.686 [place] 021.0700491 [address] 2022-08-19 2022-08-19 Imm/Inj Vaccine, [facility] Family Medicine [facility] 1.2.840.114 [id number] Univers 13:00:00 13:10:00 Visit Allison Banerjee 350.1. 13.10 ity of [place].2.[place] 398.8076663 Mn yuri PINA 044 [facility] 2022-08-19 2022-08-19 Outpatient R LAVONNETHE [facility] 1042 [id number] Univers 13:00:00 13:00:00 ALLISON espinosa [facility] 2022-07-27 2022-07-27 [facility] 1.2.629.924 [id number] 0179 Univers 11:38:28 23:59:00 Encounter [facility] 350.1.13.10 ity of [place] 4.2.7.2.686 [place] as DANIAL?BLEA 299.1436035 Mn yuri PERRY [address] [place] MEDICAL OFFICE [facility] 2022-07-27 2022-07-27 [facility] [id number] Univers 11:20:00 11:40:57 [facility] 2022-07-27 2022-07-27 Urgent [facility] 1.2.840.114 [id number] Univers 11:20:00 11:40:57 Care [facility] HEALTH 350.1.13.10 it y of [place] 4.2.7.2.686 [place] as DANIAL?BLEA 347.0839301 Mn yuri NAIK [address] [place] MEDICAL OFFICE [facility] 2022-07-27 2022-07-27 Telephone [facility] 1.2.771.693 [id number] [id number] Univers 00:00:00 00:00:00 Mauri BARBOZA 350.1.13.10 ity [place].2.[place] 149.4435347 Mn dical NAL 059 [facility] 2022-07-27 2022-07-27 Telephone [facility] 1.2.861.920 5087 8661 Univers 00:00:00 00:00:00 Mauri TAMRA 350.1.13.10 ity of [place].2.[place] 510.1438722 Mn dical NAL 059 [facility] 2022-07-22 2022-07-22 Outpatient R LAVONNETHE [facility] 1041 [id number] Univers 10:40:00 10:40:00 ALLISON espinosa [facility] 2022-07-18 2022-07-18 Outpatient [facility] [id number] Univers 13:51:13 23:59:00 MAURI espinosa o [facility] 2022-07-18 2022-07-18 [facility] 1.2.840.114 [id number] Univers 13:51:13 23:59:00 Encounter Mauri BARBOZA 350.1.13.10 ity of [facility] 4.2.7.2.[place] [id number] [facility] [address] [place] 2022-07-18 2022-07-18 Refrigerating Engineer Matt, Abdiaziz Lab Main [facility] 1.2.8 40.114 [id number] Univers 14:15:00 14:30:00 Visit Mauri Jiménez 350.1.13.10 ity of [place] 4.2.7.2.[place] 145.6181656 Mn dical NAL 353 [facility] 2022-07-18 2022-07-18 Outpatient [facility] [id number] Univers 13:00:00 13:25:20 MAURI espinosa o f [facility] 2022-07-18 2022-07-18 Office [facility] 1.2.840.114 [id number] Univers 13:00:00 13:25:20 Visit Mauri BARBOZA 350.1.13.10 [facility] 4.2.[place] 637.6511894 Mn dical NAL 059 [facility] 2022-07-18 2022-07-18 Outpatient R TINO [facility] [id number] Univers 13:00:00 13:00:00 MAURI espinosa o f [facility] 2022-07-15 2022-07-15 Memo Hernandezregina [facility] 1.2.840.114 [id number] Univers 00:00:00 00:00:00 Allison BARBOZA 350.1.13.10 ity [facility] 4.2.[place] 547.9579113 Mn dical NAL 231 [facility] 2022-07-13 2022-07-13 Transition DALILA [place] 1.2.840.114 [id number] Univers 00:00:00 00:00:00 of Care Chad Thelma WOODALL 350.1.13.10 ity of [place].[address] [place] [id number] [facility] [address] [place] 2022-07-09 2022-07-11 Outpatient X JASIEL [facility] [id number] Univers 11:59:00 13:07:00 NICOLE ity [facility] 2022-07-09 2022-07-11 [facility] Arcelia Merrill [facility] 1.2.84 0.114 [id number] Univers 11:59:00 13:07:00 Encounter Nicole Weathers 350.1.13.10 [place] [id number] [facility] [address] 2022-06-28 2022-06-28 Outpatient R SARAH TERAN [facility] [id number] Univers 10:00:00 10:38:15 SARAH TERAN ity [facility] 2022-06-28 2022-06-28 Office Haley [facility] 1.2.840.114 [id number] Univers 10:00:00 10:38:15 Visit Sarah BARBOZA 350.1.13.10 [place] [id number] Mn dical NAL 044 [facility] 2022-06-28 2022-06-28 Outpatient R SARAH TERAN [facility] [id number] Univers 10:00:00 10:38:15 SARAH TERAN ity of [facility] 2022-06-27 2022-06-27 Telephone [facility] [id number] Univers 00:00:00 00:00:00 Mauri BARBOZA 350.1.13.10 [facility] [place] [id number] Mn dical [facility] 059 [facility] 2022-06-27 2022-06-27 [facility]phone [facility] 1.2.840.114 [id number] [facility] 00:00:00 00:00:00 Allison BARBOZA 350.1.13.10 [facility] [place] [id number] Mn dical NAL 231 [facility] 2022-05-27 2022-05-27 Outpatient R NAYELITHE [facility] [id number] Univers 13:45:00 13:56:57 AFSHAN ity [facility] 2022-05-27 2022-05-27 Office [facility] 1.2.696.112 [id number] Univers 13:45:00 13:56:57 Visit Afshan PRIMARY 350.1.13.10 ity of [place] [facility] [place] [id number] [facility] [address] 2022-05-27 2022-05-27 Outpatient R NAYELITHE [facility] [id number] Univers 13:45:00 13:45:00 AFSHAN ity [facility] 2022-05-24 2022-05-24 Telephone [facility] 1.2.840.114 [id number] Univers 00:00:00 00:00:00 Allison BARBOZA 350.1.13.10 [facility] [place] [id number] Mn dical NAL 231 [facility] 2022-05-17 2022-05-17 Outpatient R TINO, [facility] [id number] Univers 14:20:00 14:28:15 MAURI gonzalez [facility] 2022-05-17 2022-05-17 [facility] 1.2.840.114 [id number] Univers 14:20:00 14:28:15 Visit Mauri BARBOZA 350.1.13.10 [facility] [place] [id number] Mn dical NAL 059 [facility] 2022-05-17 2022-05-17 Outpatient R TINO, [facility] [id number] Univers 14:20:00 14:28:15 MAURI gonzalez [facility] 2022-05-17 2022-05-17 Outpatient R TINO, [facility] [id number] Univers 14:20:00 14:20:00 MAURI gonzalez [facility] 2022-05-13 2022-05-13 Outpatient R SARAH TERAN [facility] [id number] Univers 13:30:00 14:18:17 SARAH TERAN italberta [facility] 2022-05-13 2022-05-13 Office [facility] 1.2.840.114 [id number] [facility] 13:30:00 14:18:17 Visit Sarah BARBOZA 350.1.13.10 ity mitch [place] [phone] Mn dical NAL 044 [facility] 2022-05-13 2022-05-13 Outpatient R SARAH TERAN [facility] [id number] Univers 13:30:00 14:18:17 SARAH TERAN italberta [facility] 2022-05-11 2022-05-11 Telephone [facility] 1.2.840.114 [id number] Univers 00:00:00 00:00:00 Allison BARBOZA 350.1.13.10 ity [facility] [place] [id number] Mn dical NAL [address] [facility] 2022-05-10 2022-05-10 Transition DALILA Davis 1.2.840.114 [id number] Univers 00:00:00 00:00:00 of Care Chad WOODALL 350.1.13.10 ity of [place] [place] [id number] [facility] [address] 2022-05-02 2022-05-07 Inpatient X [facility], [facility] JAY [id number] Univers 15:13:00 17:25:00 NICOLE ity of [facility] 2022-05-02 2022-05-07 [facility] ReynaJaja [facility] 1.2.840.1 14 [id number] Univers 15:13:00 17:25:00 Encounter Nicole Weathers 350.1.13.10 ity of [place] [id number] [facility] [address] [place] 2022-05-02 2022-05-02 Inpatient X [facility], [facility] JAY [id number] Univers 15:13:00 15:13:00 NICOLE ity [facility] 2022-05-02 2022-05-02 Orders Doctor DALY 1.2.840.114 [id number] Univers 00:00:00 00:00:00 Only Unassigned, IAN 350.1.13.10 ity of [place] [facility] 4.2.7.2.[address] [place] [id number] [facility] [address] 2022-04-25 2022-04-25 Refrigerating Engineer 2, Adc Lab [facility] 1.2.840.114 [id number] Univers 08:15:00 08:30:00 Visit Allison Banerjee 350.1. 13.10 ity of [place] [phone] Mn dical NAL 353 [facility] 2022-04-25 2022-04-25 Outpatient R LAVONNE [facility] [id number] Univers 08:15:00 08:15:00 [facility] 2022-04-22 Outpatient R LAVONNETHE [facility] [id number] Univers 13:40:00 14:50:36 [facility] 2022-04-22 2022-04-22 Office [facility] 1.2.840.114 [id number] Univers 13:40:00 14:50:36 Visit Allison BARBOZA 350.1.13.10 ity of [place] [id number] [address] 2022-04-22 2022-04-22 Outpatient R LAVONNETHE [facility] [id number] Univers 13:40:00 14:50:36 [facility] 2022-04-22 2022-04-22 Outpatient R LAVONNETHE [facility] [id number] Univers 13:40:00 13:40:00 [facility] 2022-04-22 2022-04-22 Orders Doctor DALY 1.2.840.114 [id number] Univers 00:00:00 00:00:00 Only Unassigned, IAN 350.1.13.10 ity of [place] [facility] 4.2.7.2.686 [place] [id number] [address] 2022-04-14 2022-04-14 Refill [facility] 1.2.840.114 [id number] Univers 00:00:00 00:00:00 Allison BARBOZA 350.1.13.10 ity [facility] [place] [phone] Mn dic[address] 2022-03-25 2022-03-25 Refrigerating Engineer 2, Adc Lab [facility] 1.2.840.114 [id number] Univers 11:30:00 11:45:00 Visit Mauri Jiménez 350.1.13.10 ity of [facility] 4.2.[place] [id number] Mn dical NAL 353 [facility] 2022-03-25 2022-03-25 Outpatient R TINO, [facility] [id number] Univers 11:30:00 11:30:00 MAURI ity o f [facility] 2022-03-24 2022-03-24 Outpatient R [facility] [id number] Univers 15:15:00 15:15:00 ity of [facility] 2022-03-17 2022-03-17 Telephone [facility] 1.2.880.856 [id number] Univers 00:00:00 00:00:00 Mauri CASTILLOTON 350.1.13.10 ity of [facility] 4.2.[place] [phone] [facility] 059 [facility] 2022-03-15 2022-03-15 Office [facility] 1.2.840.114 [id number] Univers 16:00:00 17:01:45 Visit Mauri BARBOZA 350.1.13.10 ity of [facility] 4.2.7.2.[place] [id number] [facility] 059 [facility] 2022-03-15 2022-03-15 Outpatient R TINO, [facility] [id number] Univers 16:00:00 17:01:45 MAURI mckeey o [facility] 2022-03-15 2022-03-15 Outpatient R TINO, [facility] [id number] Univers 16:00:00 16:00:00 MAURI mckeey o [facility] 2022-03-15 2022-03-15 Ancillary Mildred Turner [facility] 1.2. 840.114 [id number] Univers 15:15:00 16:00:00 Visit Tiana Mijares 350.1.13.10 ity of [facility] 4.2.[place] [id number] [facility] 179 [facility] 2022-03-15 2022-03-15 Outpatient R DYLLAN, [facility] [id number] Univers 15:15:00 15:15:00 TIANA espinosa [facility] 2022-03-14 2022-03-14 Outpatient R TINO, [facility] [id number] Univers 13:20:00 13:46:20 MAURI connelly [facility] 2022-03-14 2022-03-14 Office Tino, [facility] 1.2.840.114 [id number] Univers 13:20:00 13:46:20 Visit Mauri CASTILLODOMINICK 350.1.13.10 ity of [facility] 4.2.7.[place] [id number] Mn dical NAL 059 [facility] 2022-03-14 2022-03-14 Outpatient R TINO, [facility] [id number] Univers 13:20:00 13:46:20 MAURI connelly [facility] 2022-03-09 2022-03-09 Refrigerating Engineer 2, Adc Lab [facility] 1.2.840.114 [id number] Univers 09:15:00 09:30:00 Visit Mauri JiménezDOMINICK 350.1.13.10 ity of [facility] 4.2.7.2.[place] [id number] Mn dical NAL 353 [facility] 2022-03-09 2022-03-09 Outpatient R TINO, [facility] [id number] Univers 09:15:00 09:15:00 MAURI connelly [facility] 2022-03-08 2022-03-08 Refrigerating Engineer 2, Adc Lab [facility] 1.2.840.114 [id number] Univers 16:00:00 16:15:00 Visit Mauri Jiménez 350.1.13.10 ity of [facility] 4.2.7.2.[place] [phone] Mn dical NAL 353 [facility] 2022-03-08 2022-03-08 Outpatient R TINO, [facility] [id number] Univers 16:00:00 16:00:00 MAURI connelly [facility] 2022-03-08 2022-03-08 Ancillary Mildred Turner [facility] 1.2. 840.114 [id number] Univers 15:15:00 16:00:00 Visit Tiana MijaresTON 350.1.13.10 ity of [facility] 4.2.7.[place] [id number] [facility] 179 [facility] 2022-03-08 2022-03-08 Outpatient R DYLLAN [facility] [id number] Univers 15:15:00 15:15:00 TIANA alberta [facility] 2022-03-02 2022-03-02 Ancillary Moises SousaardYuliana [facility] 1 .2.840.114 [id number] Univers 15:15:00 16:00:00 Visit Tiana Mijares TAMRA 350.1.13.10 ity of [place] [id number] [address] 2022-03-02 2022-03-02 Outpatient R DYLLANTHE [facility] [id number] Univers 15:15:00 15:15:00 [facility] 2022-03-02 2022-03-02 Outpatient R DYLLANTHE [facility] [id number] Univers 15:15:00 15:15:00 [facility] 2022-02-28 2022-02-28 Telephone [facility] 1.2.840.114 [id number] Univers 00:00:00 00:00:00 Allison BARBOZA 350.1.13.10 ity of [place] [id number] [address] 2022-02-22 2022-02-22 Refrobert MathewZ[facility] 1.2.840.114 [id number] Univers 00:00:00 00:00:00 Jocelyn BARBOZA 350.1.13.10 i ty of [place] [id number] [address] 2022-02-21 2022-02-21 Outpatient R CRISTI CALLEJAS [facility] [id number] Univers 13:00:00 15:56:25 ity [facility] 2022-02-21 2022-02-21 Office Juvencio Callejashi [facility] 1.2.840.114 [id number] Univers 13:00:00 15:56:25 Visit HEALTH 350.1.13.10 it y of [place] [id number] [address] OFFICE BUILDING 2022-02-21 2022-02-21 Outpatient R JUVENCIO CALLEJASHI [facility] [id number] Univers 13:00:00 13:00:00 ity of [facility] 2022-02-11 2022-02-11 Outpatient R TINO, [facility] [id number] Univers 13:20:00 13:51:39 MAURI espinosa o [facility] 2022-02-11 2022-02-11 Office [facility] 1.2.840.114 [id number] Univers 13:20:00 13:51:39 Visit Reginohéctor JONATHANDOMINICK 350.1.13.10 ity of [place] [id number] [address] 2022-02-11 2022-02-11 Outpatient R TINO, [facility] [id number] Univers 13:20:00 13:51:39 MAURI espinosa o [facility] 2022-02-11 2022-02-11 Outpatient R TINO, [facility] [id number] Univers 13:20:00 13:20:00 MAURI espinosa o [facility] 2022-02-11 2022-02-11 Telephone [facility] 1.2.678.452 [id number] Univers 00:00:00 00:00:00 Mauri BARBOZA 350.1.13.10 ity of [place] [id number] Mn dical NAL [address] [place] [address] 2022-01-24 2022-01-24 Office [facility] 1.2.052.608 [id number] Univers 13:45:00 14:00:00 Visit Afshan PRIMARY 350.1.13.10 ity of [place] [id number] Mn dichenna [address] 2022-01-24 2022-01-24 Outpatient R NAYELI [facility] [id number] Univers 13:45:00 13:45:00 AFSHAN ity [facility] 2022-01-18 2022-01-18 Outpatient R SARAH TERAN [facility] [id number] Univers 13:30:00 14:21:29 [facility] 2022-01-18 2022-01-18 Office [facility] 1.2.840.114 [id number] Univers 13:30:00 14:21:29 Visit Sarah BARBOZA 350.1.13.10 ity of [place] [id number] Mn dical NAL [address] [place] [address] 2022-01-18 2022-01-18 Outpatient R SARAH TERAN [facility] [id number] Univers 13:30:00 14:21:29 [facility] 2022-01-17 2022-01-17 Refrobert Banerjee [facility] 1.2.840.114 [id number] Univers 00:00:00 00:00:00 Allison BARBOZA 350.1.13.10 ity of [place] [phone] Mn dical [facility] 044 [facility] 2022-01-14 2022-01-14 Outpatient R NAYELI [facility] [id number] Univers 13:00:00 13:00:00 AF[facility]AN [facility] 2022-01-13 2022-01-13 Refrobert Mathew [facility] 1.2.840.114 [id number] Univers 00:00:00 00:00:00 Jocelyn BARBOZA 350.1.13.10 i ty of [facility] 4.2.7.2.[place] [id number] Mn dical NAL 231 [facility] 2022-01-12 2022-01-12 Outpatient R TINO, [facility] [id number] Univers 07:59:08 23:59:00 MAURI connelly [facility] 2022-01-12 2022-01-12 Outpatient R TINO, [facility] [id number] Univers 08:00:00 08:00:00 MAURI connelly [facility] 2022-01-10 2022-01-10 Outpatient R TINO, [facility] [id number] Univers 13:40:00 14:27:52 MAURI connelly [facility] 2022-01-10 2022-01-10 Office [facility] 1.2.840.114 [id number] Univers 13:40:00 14:27:52 Visit Reginohéctor TAMRA 350.1.13.10 ity of [facility] 4.2.7.2.[place] [id number] Mn dical NAL 059 [facility] 2022-01-05 2022-01-05 Outpatient R [facility] RAD [id number] Univers 10:50:47 23:59:00 ALLISON ity of [facility] 2022-01-05 2022-01-05 [facility] 1.2.840.114 [id number] Univers 10:50:47 23:59:00 Encounter Allison CASTILLOTON 350.1.13.10 it[place].2.[place] [address] [id number] [facility] [address] 2022-01-04 2022-01-04 [facility] 1.2.840.114 [id number] Univers 00:00:00 00:00:00 Allison A JONATHNATON 350.1.13.10 ity of [place] [id number] Mn dical NAL 044 [facility] 2022-01-03 2022-01-03 Refill [facility] 1.2.840.114 [id number] Univers 00:00:00 00:00:00 Allison A [place] 350.1.13.10 ity of [place] [id number] [facility] 044 [facility] 2021-12-21 2021-12-21 Office Banerjee, [facility] 1.2.840.114 [id number] Univers 14:20:00 15:27:18 Visit Allison BARBOZA 350.1.13.10 ity of [place] [id number] [facility] 231 [facility] 2021-12-21 2021-12-21 Outpatient R BANERJEETHE [facility] [id number] Univers 13:40:00 15:27:10 [facility] 2021-12-21 2021-12-21 Office [facility] [place] 1.2.840.114 [id number] Univers 13:40:00 15:27:10 Visit Allison BARBOZA 350.1.13.10 ity [facility] [place] [id number] [address] 2021-12-21 2021-12-21 Outpatient R [facility]ANERJEEEL [facility] [id number] Univers 14:20:00 14:20:00 [facility] 2021-12-21 2021-12-21 Outpatient R BANERJEEEL [facility] [id number] Univers 14:20:00 14:20:00 [facility] 2021-12-21 2021-12-21 Outpatient R BANERJEEEL [facility] [id number] Univers 13:40:00 13:40:00 [facility] 2021-12-21 2021-12-21 Orders Doctor KAUFFMAN 1.2.840.114 [id number] Univers 00:00:00 00:00:00 Only Unassigned, IAN 350.1.13.10 ity of [place] [facility] 4.2.7.2.686 [place] [phone] [address] 2021-11-24 2021-11-24 Outpatient R TINO [facility] [id number] Univers 13:20:00 13:22:44 MAURI espinosa o f [facility] 2021-11-24 2021-11-24 Office [facility] 1.2.840.114 [id number] Univers 13:20:00 13:22:44 Visit Mauri BARBOZA 350.1.13.10 ity of [place] [id number] Mn dical NAL 059 [facility] 2021-11-02 2021-11-02 [facility] [place] 1.2.840.114 [id number] Univers 00:00:00 00:00:00 Allison CASTILLOTON 350.1.13.10 ity of [place] [id number] Mn dical NAL 044 [facility] 2021-10-25 2021-10-25 [facility] Banerjee, [facility] 1.2.840.114 [id number] Univers 00:00:00 00:00:00 Allison BARBOZA 350.1.13.10 ity of [place] [id number] Mn dical NAL 044 [facility] 2021-10-14 2021-10-14 [facility] 1.2.840.114 [id number] Univers 00:00:00 00:00:00 Mauri BARBOZA 350.1.13.10 ity of [place] 4[place].2.[place] [id number] Mn dical NAL 231 [facility] 2021-10-11 2021-10-11 Outpatient R NAYELI [facility] [id number] Univers 13:00:00 13:20:37 AFSHAN ity [facility] 2021-10-11 2021-10-11 Outpatient R NAYELI [facility] [id number] Univers 13:00:00 13:00:00 ASFHAN ity [facility] 2021-10-11 2021-10-11 Outpatient Tan FORD [facility] [id number] Univers 13:00:00 13:00:00 AFSHAN ity of [facility] 2021-10-11 2021-10-11 Office [facility] 1.2.496.561 [id number] Univers 12:27:24 12:42:24 Visit Afshan PRIMARY 350.1.13.10 ity of [place] [id number] Mn dical [address] 2021-09-07 2021-09-07 Outpatient R [facility] [id number] Univers 13:15:00 13:45:04 AFSHAN ity [facility] 2021-09-07 2021-09-07 Office [facility] 1.2.075.108 [id number] Univers 12:32:00 13:45:04 Visit Afshan PRIMARY 350.1.13.10 it[place] [id number] [facility] [address] 2021-09-07 2021-09-07 Outpatient R [facility] [id number] Univers 13:15:00 13:15:00 AFSHAN ity [facility] 2021-09-02 2021-09-02 [facility] 1.2.840.114 [id number] Univers 00:00:00 00:00:00 Blanca BARBOZA 350.1.13.10 ity of [place] [id number] Mn dical NAL [address] [facility] 2021-08-30 2021-08-30 [facility] 1.2.840.114 [id number] Univers 15:06:01 23:59:00 Encounter Afshan PRIMARY 350.1.13.10 ity of [place] [id number] Mn dical [address] 2021-08-30 2021-08-30 Outpatient R [facility] [id number] Univers 15:06:01 23:59:00 AFSHAN ity of [facility] 2021-08-30 2021-08-30 Outpatient R NAYELI [facility] [id number] Univers 14:00:00 15:05:29 AFSHAN ity of [facility] 2021-08-30 2021-08-30 Office [facility] 1.2.555.582 [id number] Univers 13:38:15 15:05:29 Visit Afshan PRIMARY 350.1.13.10 it[place] [id number] Mn dicri [address] 2021-08-30 2021-08-30 Outpatient R TINOTHE [facility] [id number] Univers 13:40:00 13:40:00 MAURI espinosa o f [facility] 2021-08-28 2021-08-28 Refill [facility] 1..840.114 [id number] Univers 00:00:00 00:00:00 Blanca Barboza 350.1.13.10 ity of [place] [id number] Mn dical nal 231 [facility] 2021-08-25 2021-08-25 Office [facility] 1.2.840.114 [id number] Univers 13:09:19 13:34:16 Visit Mauri Barboza 350.1.13.10 ity of [place].2.[place] [id number] Mn dical nal 059 [facility] 2021-08-25 2021-08-25 Outpatient R TINOTHE [facility] [id number] Univers 13:20:00 13:20:00 MAURI espinosa o f [facility] 2021-08-25 2021-08-25 Refrobert [facility] 1.2.840.114 [id number] Univers 00:00:00 00:00:00 Allison Barboza 350.1.13.10 ity of [place].2.[place] [id number] Mn dical nal 044 [facility] 2021-08-20 2021-08-20 Office Ad[facility] 1.2.840.114 [id number] Univers 11:32:35 12:04:25 Visit Dalila Renee [facility] 350.1.13.10 i ty of [place] 4.2.7.2.686 [place] Danial?Blea [phone] Mn dichenna kney 044 [facility] Office [facility] 2021-08-20 2021-08-20 Outpatient R ADALGISATHE [facility] [id number] Univers 11:30:00 11:30:00 DALILA italberta [facility] 2021-08-18 2021-08-18 Outpatient R [facility] [id number] Univers 13:15:00 13:15:00 ity [facility] 2021-08-18 2021-08-18 Refrigerating Engineer 2, Adc Lab [facility] 1.2.840.114 [id number] Univers 12:57:10 13:12:10 Visit Allison Banerjee 350.1. 13.10 ity of [place] [phone] Mn yuri [facility] 353 [facility] 2021-08-17 2021-08-17 Outpatient R LAVONNE [facility] [id number] Univers 11:00:00 12:35:02 ALLISON rafialberta [facility] 2021-08-17 2021-08-17 Office [facility] 1.2.840.114 [id number] Univers 10:56:29 12:35:02 Visit Allison BARBOZA 350.1.13.10 ity [place] [phone] Mn dical NAL 231 [facility] 2021-08-04 2021-08-04 Refrobert Das [facility] 1.2.840.114 [id number] Univers 00:00:00 00:00:00 Blanca Barboza 350.1.13.10 ity of [place] [id number] Mn dical nal 044 [facility] 2021-07-29 2021-07-29 Telephone [facility] 1.2.473.273 [id number] Univers 00:00:00 00:00:00 Mauri Barboza 350.1.13.10 ity of [place] [id number] Mn dical nal 059 [facility] 2021-07-27 2021-07-27 Refrigerating Engineer 2, Adc Lab [facility] 1.2.840.114 [id number] Univers 13:44:40 13:59:40 Visit Mauri Jiménez 350.1.13.10 ity of [place] 4.2.[place].2.[place] [phone] Mn dical nal 353 [facility] 2021-07-27 2021-07-27 Outpatient R ALBERTO [facility] [id number] Univers 13:50:00 13:50:00 MORGAN espinosa [facility] 2021-07-27 2021-07-27 Imm/Inj Nurse, [facility] Pob Immunization [facility] 1.2.840.114 [id number] Univers 13:41:10 13:41:18 Visit Morgan Martell 350.1.13 .10 ity of [place] [id number] Mn dical nal 421 [facility] 2021-07-27 2021-07-27 Office [facility] 1.2.840.114 [id number] Univers 13:06:05 13:34:39 Visit Mauri Barboza 350.1.13.10 ity of [place] 4[place]2.[place].2.[place] [phone] Mn dical nal 059 [facility] 2021-07-27 2021-07-27 Outpatient R TINO [facility] [id number] Univers 13:20:00 13:20:00 MAURI connelly [facility] 2021-07-23 2021-07-23 Outpatient R LAVONNE [facility] [id number] Univers 14:20:00 14:20:00 ALLISON espinosa [facility] 2021-05-20 2021-05-20 Office [facility] 12.840.114 [id number] Univers 07:57:57 08:32:32 Visit Blanca Barboza 350.1.13.10 ity of [place] 4[place] [phone] [facility] 044 [facility] 2021-05-20 2021-05-20 Outpatient R PIPPATHE [facility] [id number] Univers 08:00:00 08:00:00 BLANCA espinosa o f [facility] 2021-05-18 2021-05-18 Telephone [facility] 12.840.114 [id number] Univers 00:00:00 00:00:00 Allison Thelma CastilloAurora 350.1.13.10 ity of [id number] [phone] [place] dical [facility] [address] [facility] 2021-05-16 2021-05-16 [facility] 1.2.840.114 [id number] Univers 00:00:00 00:00:00 Management Allison Castilloton [id number] [id number] [phone] Mn dic[address] 2021-05-14 2021-05-14 [place] [facility] 1.2.840.114 [id number] Univers 00:00:00 00:00:00 Allison A [place] [id number] [id number] [phone] [place] dical [address] 2021-05-13 2021-05-13 [facility] 1.2.840.114 [id number] Univers 00:00:00 00:00:00 Allison A [place] [id number] [id number] [phone] Mn dical nal [address] [place] [address] 2021-05-10 2021-05-10 Telephone Lavonne [facility] 1.2.840.114 [id number] Univers 00:00:00 00:00:00 Allison Barboza [id number] [id number] [phone] [facility] [address] [facility] 2021-05-04 2021-05-04 Refrigerating Engineer 2, Adc Lab [facility] 1.2.840.114 [id number] Univers 10:43:46 10:58:46 Visit Allison Banerjee 350.1. 13.10 it[id number] [phone] [facility] [address] [facility] 2021-05-04 2021-05-04 Office Lavonne [facility] 1.2.840.114 [id number] Univers 08:23:37 10:03:10 Visit Allison Barboza [id number] [place] [phone] [facility] [address] [facility] 2021-05-04 2021-05-04 Outpatient R LAVONNE [facility] [id number] Univers 08:40:00 08:40:00 ALLISON espinosa of [facility] 2021-05-04 2021-05-04 Orders Doctor KAUFFMAN 1.2.840.114 [id number] Univers 00:00:00 00:00:00 Only Unassigned, IAN 350.1.13.10 ity of [place] [facility] 4.2.7.2.686 [place] as [phone] [address] 2021-05-03 2021-05-03 Refill Lavonne [facility] 1.2.840.114 [id number] Univers 00:00:00 00:00:00 Allison Barboza [id number] [id number] [phone] [facility] [address] [facility] 2021-04-26 2021-04-26 Refrigerating Engineer 2, Adc Lab [facility] 1.2.840.114 [id number] Univers 13:55:57 14:10:57 Visit Mauri Jiménez 350.1.13.10 it[place] of [place] [phone] Mn dical nal 353 [facility] 2021-04-26 2021-04-26 Office Tino [facility] 1.2.840.114 [id number] Univers 13:22:00 13:51:05 Visit Mauri Barboza 350.1.13.10 it[place] of [place] [phone] Mn dical nal 059 [facility] 2021-04-26 2021-04-26 Outpatient R TINO [facility] [id number] Univers 13:40:00 13:40:00 MAURI mckeey o f [facility] 2021-04-15 2021-04-15 Telephone [facility] [place] 1.2.840.114 [id number] Univers 00:00:00 00:00:00 Allison Barboza 350.1.13.10 [place] of [place] [phone] Mn dical nal 044 [facility] 2021-04-08 2021-04-08 Refill [facility] 1.2.840.114 [id number] Univers 00:00:00 00:00:00 Allison Barboza 350.1.13.10 [place] of [place] [phone] Mn dical nal 044 [facility] 2021-03-04 2021-03-04 Refill [facility] 1.2.840.114 [id number] Univers 00:00:00 00:00:00 Jocelyn Barboza 350.1.13.10 i [place] [phone] Mn dical nal 044 [facility] 2021-03-02 2021-03-02 [facility] 1.2.775.989 [id number] Univers 12:41:09 23:59:00 Encounter Blanca Barboza 350.1.13.10 [place] [phone] [facility] [address] [place] 2021-03-02 2021-03-02 Outpatient R [facility] [id number] Univers 12:41:09 23:59:00 BLANCA espinosa o f [facility] 2021-03-02 2021-03-02 Outpatient R [facility] [id number] Univers 00:00:00 00:00:00 BLANCA rafialberta o f [facility] 2021-03-02 2021-03-02 Orders Doctor DALY 1.2.840.114 [id number] Univers 00:00:00 00:00:00 Only Unassigned, IAN 350.1.13.10 ity of [place] [facility] 4.2.7.2.[phone] [facility] [address] 2021-02-23 2021-02-23 Office [facility] 1.2.840.114 [id number] Univers 13:18:47 13:59:44 Visit Mauri Barboza 350.1.13.10 [place] [facility] [phone] Mn dical nal 059 [facility] 2021-02-23 2021-02-23 Outpatient [facility] [id number] Univers 13:40:00 13:40:00 MARALNEO francisca o f [facility] 2021-02-23 2021-02-23 Refill Lavonne [facility] 1.2.840.114 [id number] Univers 00:00:00 00:00:00 Allison Barboza 350.1.13.10 [place] of [place] [phone] Mn dical nal 231 [facility] 2021-02-23 2021-02-23 Refill [facility] 1.2.840.114 [id number] [id number] Univers 00:00:00 00:00:00 Jocelyn Barboza 350.1.13.10 i [place] [phone] Mn dical nal 231 [facility] 2021-02-19 2021-02-19 [facility] 1.2.840.114 [id number] [id number] Univers 00:00:00 00:00:00 Jocelyn Barboza 350.1.13.10 i [place] [phone] Mn dical nal 044 [facility] 2021-02-17 2021-02-17 [facility] 1.2.840.114 [id number] [id number] Univers 00:00:00 00:00:00 Blanca Barboza 350.1.13.10 it[place] of [place] [phone] Mn dical nal 044 [facility] 2021-02-16 2021-02-16 [facility] 1.2.604.649 [id number] Univers 10:53:10 23:59:00 Encounter Blanca Barboza 350.1.13.10 ity of [place] 4.2.7.2.[address] [facility] [phone] [facility] [address] 2021-02-16 2021-02-16 [facility] 1.2.993.143 [id number] [id number] Univers 10:52:41 10:52:41 Encounter Blanca Barboza 350.1.13.10 ity of [place] 4.2.7.2.686 [facility] [phone] [facility] [address] 2021-02-16 2021-02-16 Outpatient R [facility] [id number] Univers 00:00:00 00:00:00 BLANCA gonzalez f [facility] 2021-02-16 2021-02-16 Orders Doctor DALY 1.2.840.114 [id number] Univers 00:00:00 00:00:00 Only Unassigned, IAN 350.1.13.10 ity of [place] [facility] 4.2.7.2.[phone] [facility] [address] 2021-02-09 2021-02-09 Pre Visit DALY Moe 1.2.840.114 [id number] Univers 00:00:00 00:00:00 Outreach Enio SOSA 350.1.13.10 i ty of [facility] 4.2.7.2.[phone] [facility] [address] 2021-02-09 2021-02-09 Pre Visit DALY Moe 1.2.840.114 [id number] Univers 00:00:00 00:00:00 Outreach Enio SOSA 350.1.13.10 i ty of [facility] 4..7.2.[phone] [facility] [address] 2021-02-04 2021-02-04 Telephone [facility] 1.2.840.114 [id number] Univers 00:00:00 00:00:00 Blanca Barboza 350.1.13.10 [place] of [place] [facility] [phone] Mn dical [facility] [address] 2021-02-03 2021-02-03 [facility] 1.2.292.069 [id number] Univers 14:26:14 23:59:00 Encounter Blanca Barboza 350.1.13.10 [place] [phone] [facility] [address] 2021-02-03 2021-02-03 Outpatient R [facility] [id number] Univers 00:00:00 00:00:00 BLANCA espinosa o f [facility] 2021-02-03 2021-02-03 Orders Doctor DALY 1.2.840.114 [id number] Univers 00:00:00 00:00:00 Only Unassigned, IAN 350.1.13.10 ity of [place] [facility] 4.2.7.2.[address] [place] [phone] [facility] [address] 2021-02-01 2021-02-01 Refrigerating Engineer 2, Adc Lab [facility] 1.2.840.114 [id number] Univers 08:58:19 09:13:19 Visit Blanca Das Tamra 350.1.13.10 it[place] of [place] [phone] Mn dicboise [facility] 353 [facility] 2021-02-01 2021-02-01 Office [facility] 1.2.840.114 [id number] Univers 08:01:17 08:55:03 Visit lBanca Castilloton 350.1.13.10 it[place] of [place] [phone] [facility] 044 [facility] 2021-02-01 2021-02-01 Outpatient R PIPPA [facility] [id number] Univers 08:00:00 08:00:00 BLANCA espinosa o f [facility] 2020-12-17 2020-12-17 Outpatient R NEISHA [facility] [id number] Univers 15:40:00 15:40:00 MIRZA italberta [facility] 2020-12-10 2020-12-10 Hospital [facility] 1.2.840.114 [id number] Univers 09:30:00 23:59:00 Encounter Dalila Barboza 350.1.13.10 it[place] of [place] [phone] [facility] [address] 2020-12-10 2020-12-10 Urgent Provider, [facility] Urgent Care [facility] 1.2.840.114 [id number] Univers 08:27:08 09:42:50 Tia Cuello [facility] 350.1.13.10 ity of [place] 4.2.7.2.686 [place] Professio [phone] [facility] [address] [address] 2020-12-10 2020-12-10 Outpatient R HAYLEY [facility] [id number] Univers 08:40:00 08:40:00 TIA [facility] 2020-12-10 2020-12-10 Orders Doctor KAUFFMAN 1.2.840.114 [id number] Univers 00:00:00 00:00:00 Only Unassigned, IAN 350.1.13.10 [facility] 4.2.7.2.686 [place] [phone] [address] 2020-12-09 2020-12-09 [facility] 1.2.840.114 [id number] Univers 00:00:00 00:00:00 Allison Barboza 350.1.13.10 [place] of [place] [phone] Mn dical [address] 2020-12-02 2020-12-02 [facility] 1.2.840.114 [id number] [id number] Univers 00:00:00 00:00:00 Allison Castilloton 350.1.13.10 it[place] of [place] [phone] Mn dic[address] 2020-11-30 2020-11-30 Laboratory Pc, Adc Echo Room 1 - [facility] 1 .2.840.114 [id number] [facility] 08:47:17 09:47:17 Only Mauri Jiménez 350.1.13.10 it[place] of [place] [phone] Mn dicboise [facility] 059 [facility] 2020-11-30 2020-11-30 Outpatient R [facility] [id number] Univers 09:00:00 09:00:00 ity of [facility] 2020-11-27 2020-11-27 [facility] 1.2.840.114 [id number] Univers 00:00:00 00:00:00 Allison Barboza 350.1.13.10 it[place] of [place] [phone] Mn dic[address] 2020-11-26 2020-11-26 Outpatient R NEISHA [facility] [id number] Univers 16:40:00 16:40:00 MIRZA ity of [facility] 2020-11-25 2020-11-25 Refrigerating Engineer 2, Adc Lab [facility] 1.2.840.114 [id number] Univers 09:32:41 09:47:41 Visit Allison Banerjee 350.1. 13.10 it[place] of [place] 4[place].2.[place] [phone] Mn dical nal 353 [facility] 2020-11-25 2020-11-25 Office [facility] 1.2.840.114 [id number] Univers 08:41:39 09:01:39 Visit Mauri Barboza 350.1.13.10 it[place] of [place] [phone] Mn dical nal 059 [facility] 2020-11-25 2020-11-25 Outpatient R TINO [facility] [id number] Univers 09:00:00 09:00:00 MAURI espinosa o f [facility] 2020-11-03 2020-11-03 Memo Fernandez [facility] 1.2.840.114 [id number] Univers 00:00:00 00:00:00 [facility] 350.1.13.10 it y of [place] Bar[place] 4.2.7.2.686 [place] Professio [phone] [facility] jose luis 044 [facility] 2020-10-28 2020-10-28 Outpatient R KIERA STOVER [facility] [id number] Univers 16:15:00 16:15:00 KIERA STOVER ity of [facility] 2020-10-12 2020-10-15 Inpatient [facility] [id number] [facility] 15:47:00 05:13:08 49 [facility] 2020-10-15 2020-10-15 Telephone [facility] 1.2.840.114 [id number] Univers 00:00:00 00:00:00 Allison Barboza 350.1.13.10 [place] of [place] [phone] Mn yuri pina 231 [facility] 2020-10-14 2020-10-14 Telephone [facility] [place] 1.2.840.114 [id number] Univers 00:00:00 00:00:00 Allison Barboza 350.1.13.10 [place] of [place] [phone] Mn dical nal 044 [facility] 2020-10-11 2020-10-11 Telephone [facility] 1.2.061.009 [id number] Univers 00:00:00 00:00:00 Dalila [facility] 350.1.13.10 i ty of Surgical 4.2.7.2.686 [place] Specialti [phone] Mn dical es 370 [facility] 2020-10-07 2020-10-07 Laboratory Lab, Adc Fam Pob I [facility] 1.2. 840.114 [id number] Univers 09:00:45 09:20:45 Only Adalgisa Dalila [facility] 350.1.13.10 ity of [place] 4.2.7.2.686 [place] Professio [phone] Mn dicboise [facility] 044 [facility] 2020-10-07 2020-10-07 Outpatient R [facility] [id number] Univers 09:20:00 09:20:00 ity of [facility] 2020-10-05 2020-10-05 Telephone [facility] 1.2.714.119 [id number] Univers 00:00:00 00:00:00 Mauri Barboza 350.1.13.10 [place] of [place] [phone] Mn dical nal 059 [facility] 2020-10-02 2020-10-02 Refill [facility] 1.2.840.114 [id number] Univers 00:00:00 00:00:00 Allison Barboza 350.1.13.10 [place] of [place] [phone] Mn dical nal 231 [facility] 2020-10-02 2020-10-02 [facility] 1.2.840.114 [id number] Univers 00:00:00 00:00:00 Jocelyn Barboza 350.1.13.10 i ty [place] [phone] [address] 2020-10-01 2020-10-01 Orders Doctor DALY 1.2.840.114 [id number] Univers 00:00:00 00:00:00 Only Unassigned, IAN 350.1.13.10 ity of [place] [facility] 4.2.7.2.686 [place] [phone] [address] 2020-09-07 2020-09-07 Refill Banerjee, [facility] 1.2.840.114 [id number] Univers 00:00:00 00:00:00 Allison Barboza 350.1.13.10 it[place] of [place] [phone] [address] 2020-08-12 2020-08-12 Outpatient R PRIYANKA [facility] [id number] Univers 15:00:00 15:00:00 JOCELYN italberta [facility] 2020-08-12 2020-08-12 Nurse Nurse, [facility] 1.2.840.114 [id number] Univers 14:35:39 14:55:39 Visit Jocelyn Mathew 350.1.13.10 it[place] of [place] [phone] [address] 2020-07-20 2020-07-20 Refill [facility] 1.2.840.114 [id number] [id number] Univers 00:00:00 00:00:00 Allison Barboza 350.1.13.10 it[place] of [place] [phone] [address] 2020-07-10 2020-07-10 Refrobert AlvaradoZUN[facility] 1.2.840.114 [id number] Univers 00:00:00 00:00:00 Haroldo Barboza 350.1.13.10 i ty of [place] 4[place] [phone] Me dical nal 231 [facility] 2020-06-03 2020-06-03 Outpatient R [facility] [id number] Univers 10:40:00 10:40:00 ity of [facility] 2020-06-03 2020-06-03 Laboratory Lab, Adc Fam Pob I [facility] 1.2. 840.114 [id number] Univers 10:15:39 10:35:39 Only Tia Pena 350.1.13.10 ity of [place] 4.2.7.2.686 [place] Professio [phone] Mn dical nal [address] [place] [address] 2020-05-25 2020-05-25 Office [facility] 1.2.840.114 [id number] Univers 13:48:04 14:18:23 Visit Mauri Barboza 350.1.13.10 it[place] of [place] 4[place] [phone] Mn dical nal 059 [facility] 2020-05-25 2020-05-25 Outpatient R [facility] [id number] Univers 14:00:00 14:00:00 MAURI rafiy o f [facility] 2020-04-10 2020-04-10 Refill [facility] 1..840.114 [id number] [facility] 00:00:00 00:00:00 Allison Barboza 350.1.13.10 [place] of [place] [phone] Mn dical nal 231 [facility] 2020-04-01 2020-04-01 Outpatient R PRIYANKA [facility] [id number] Univers 13:00:00 13:00:00 JOCELYN espinosa [facility] 2020-04-01 2020-04-01 Telemedici Ramesh Fernandez [facility] 1 .2.840.114 [id number] Univers 08:02:07 08:32:07 ne Visit Jocelyn Mathew 350.1.13.10 [place] [phone] Mn dical nal 044 [facility] 2020-03-28 2020-03-28 Refill Banerjee, [facility] 1.2.840.114 [id number] Univers 00:00:00 00:00:00 Allison Thelma [place] 350.1.13.10 ity of [place] 4[place] [phone] [address] 2020-03-20 2020-03-20 Telephone [facility] 1.2.840.114 7 [id number] Univers 00:00:00 00:00:00 Allison A [place] 350.1.13.10 ity of [place] 4[place] [phone] [address] 2020-02-18 2020-02-18 Outpatient R [facility] [id number] Univers 13:40:00 13:40:00 MAURI espinosa o f [facility] 2020-02-18 2020-02-18 Telemedici [facility] 1.2.840.114 [id number] Univers 08:04:29 08:24:29 ne Visit Mauri Barboza 350.1.13.10 it[place] of [place] 4[place] [phone] [address] 2020-01-14 2020-01-14 Office [facility] 1.2.840.114 [id number] Univers 10:23:58 11:16:59 Visit Mauri Barboza 350.1.13.10 it[place] of [place] [phone] [address] 2020-01-14 2020-01-14 Outpatient R [facility] [id number] Univers 10:40:00 10:40:00 MAURI espinosa o f [facility] 2020-01-10 2020-01-10 Karen Ayoub [facility] 1.2.840. 114 [id number] Univers 09:25:32 10:05:32 Visit Tiana Mijares 350.1.13.10 it[place] of [place] [phone] Mn dical nal 179 [facility] 2020-01-10 2020-01-10 Outpatient R DYLLAN [facility] [id number] Univers 09:20:00 09:20:00 TIANA espinosa [facility] 2020-01-08 2020-01-08 Ancillary Anita Watt Jaja [facility] 1.2.840 .114 [id number] Univers 09:03:51 09:43:51 Visit Davonte Mijaresig Marco Antonio [place]boza 350.1.13.10 ity [facility] 4.2.7.2.[place] [phone] Mn dical nal 179 [facility] 2020-01-07 2020-01-07 Outpatient [facility] [id number] Univers 10:43:44 23:59:00 JOCELYN espinosa [facility] 2020-01-07 2020-01-07 [facility] 1.2.840.114 [id number] Univers 10:43:00 23:59:00 Encounter Jocelyn Barboza 350.1.13.10 [facility] [place] [phone] [facility] [address] 2020-01-07 2020-01-07 Outpatient R PRIYANKA [facility] [id number] Univers 00:00:00 00:00:00 JOCELYN espinosa [facility] 2020-01-02 2020-01-02 Office [facility] 1.2.840.114 [id number] Univers 14:40:26 16:24:53 Visit Jocelyn Barboza 350.1.13.10 i ty [facility] 4.2.7.2.[place] [phone] Mn dical nal 044 [facility] 2020-01-02 2020-01-02 Outpatient R PRIYANKA [facility] [id number] Univers 15:00:00 15:00:00 JOCELYN espinosa [facility] 2020-01-01 2020-01-01 Ancillary Anita Watt Jaja [facility] 1.2.840 .114 [id number] Univers 07:42:36 08:22:36 Visit Jocelyn Mathew 350.1.13.10 it[place] of [place] [phone] Mn dicboise [facility] 179 [facility] 2019-12-30 2019-12-30 Ancillary Karen Payton [facility] 1.2.840. 114 [id number] [facility] 07:54:21 08:34:21 Visit Jocelyn Mathew 350.1.13.10 [place] of [place] [phone] [facility] 179 [facility] 2019-12-30 2019-12-30 Outpatient R PRIYANKA [facility] [id number] Univers 08:00:00 08:00:00 JOCELYN italberta [facility] 2019-12-27 2019-12-27 Telephone [facility] 1.2.840.114 [id number] Univers 00:00:00 00:00:00 Jocelyn Barboza 350.1.13.10 i ty of [place] [phone] [facility] 044 [facility] 2019-12-25 2019-12-25 Karen Ayoub [facility] 1.2.840. 114 [id number] Univers 08:40:52 09:40:52 Visit Jocelyn Mathew 350.1.13.10 ity of [place] 4[place] [phone] Mn dicboise [facility] 179 [facility] 2019-12-25 2019-12-25 Telephone [facility] 1.2.840.114 [id number] Univers 00:00:00 00:00:00 Jocelyn Barboza 350.1.13.10 i ty [place] 4[place] [phone] Mn dicboise [facility] 044 [facility] 2019-12-23 2019-12-23 Telephone [facility] 1.2.840.114 [id number] Univers 00:00:00 00:00:00 Jocelyn Barboza 350.1.13.10 i ty of [place] 4[place] [phone] Mn dic[address] 2019-12-20 2019-12-20 Telephone [facility] [place] 1.2.840.114 7 [id number] Univers 00:00:00 00:00:00 Allison Barboza 350.1.13.10 [place] [phone] [address] 2019-12-19 2019-12-19 [facility] 1.2.840.114 7 [id number] Univers 00:00:00 00:00:00 Jocelyn Barboza 350.1.13.10 i ty [place] 4[place] [phone] [address] 2019-12-18 2019-12-18 [facility] 1.2.840.114 [id number] Univers 12:53:00 23:59:00 Encounter Jocelyn Barboza 350.1.13.10 ity of [place] [phone] [address] 2019-12-18 2019-12-18 [facility] 1.2.840.114 [id number] Univers 12:52:00 12:52:00 Encounter Jocelyn Barboza 350.1.13.10 ity [place] [phone] [address] 2019-12-18 2019-12-18 Outpatient R [facility] 1026 [id number] Univers 12:51:33 12:51:00 JOCELYN ity of [facility] 2019-12-18 2019-12-18 [facility] 1.2.840.114 [id number] Univers 12:51:00 12:51:00 Encounter Jocelyn Barboza 350.1.13.10 ity of [place] 4[place] [phone] [address] 2019-12-17 2019-12-17 [facility] 1.2.840.114 [id number] Univers 15:12:47 17:09:13 Visit Jocelyn Barboza 350.1.13.10 i ty of [place] 4[place] [phone] Mn dical nal 044 [facility] 2019-12-10 2019-12-10 Refrigerating Engineer 2, Adc Lab [facility] 1.2.840.114 [id number] Univers 09:54:49 10:09:49 Visit Jocelyn Mathew 350.1.13.10 ity of [place] [phone] Mn dical nal 353 [facility] 2019-12-10 2019-12-10 Office Priyanka [facility] 1.2.840.114 [id number] [facility] 08:20:26 09:35:31 Visit Jocelyn Barboza 350.1.13.10 i ty of [place] 4[place] [phone] Mn dical nal 044 [facility] 2019-12-10 2019-12-10 Orders Doctor DALY 1.2.840.114 [id number] Univers 00:00:00 00:00:00 Only Unassigned, IAN 350.1.13.10 ity of [place] [facility] 4.2.7.2.686 [place] as [phone] [address] 2019-11-25 2019-11-25 RefRamesh Chambers [facility] 1.2.840.114 [id number] Univers 00:00:00 00:00:00 Sugar Barboza 350.1.13.10 i ty [place] [phone] Mn dical nal 231 [facility] 2019-07-16 2019-07-16 Office Tino, [facility] 1.2.840.114 [id number] Univers 16:01:17 16:43:16 Visit Mauri Barboza 350.1.13.10 ity of [place] 4[place].2.[place] [phone] Mn dical nal 059 [facility] 2019-06-07 2019-06-07 Orders Doctor DALY 1.2.840.114 [id number] Univers 00:00:00 00:00:00 Only Unassigned, IAN 350.1.13.10 [facility] 4.2.7.2.686 [place] as [phone] [address] 2019-05-14 2019-05-14 Telephone Lavonne MONATALIE [id number] [facility] 00:00:00 00:00:00 Allison Barboza [id number] it[place] [phone] Mn dical [facility] 231 [facility] 2019-03-28 2019-03-29 Outpatient nullFlavo MNA [id number] Memoria 20:45:00 04:59:59 r Neurology 00 l Nataliia Sheehan 2019-03-28 2019-03-29 Outpatient nullFlavo MNA [id number] Memoria 20:45:00 04:59:59 r Neurology 00 l Nataliia Sheehan 2019-03-28 2019-03-28 Outpatient TRACEY Perez [id number] 15:45:00 23:59:59 Benji 00 Aniceto 2019-03-28 2019-03-28 Outpatient ARPIT MUNSON [id number] Memoria 15:45:00 15:45:00 00 marco antonio Sheehan Results Test Description Test Time Test Comments Results Result Comments Source POCT GLUCOSE (AUTOMATED) 2023-03-03 18:00:37 Test Item Value Reference Range Interpretation Comme nts POCT GLU (test code = 3733938930) 345 mg/dL 70-110 H Lab Interpretation (test code = 08030-1) Abnormal [facility] GLUCOSE (AUTOMATED)2023-03-03 16:47:17 Test Item Value Reference Range Interpretation Comments POCT GLU (test code = 1885029714) 330 mg/dL 70-110 H Lab Interpretation (test code = Abnormal 75850-1) [facility] GLUCOSE (AUTOMATED)2023-03-03 13:17:09 Test Item Value Reference Range Interpretation Comments POCT GLU (test code = 1738374125) 173 mg/dL 70-110 H Lab Interpretation (test code = Abnormal 89197-5) [facility] GLUCOSE (AUTOMATED)2023-03-03 11:45:24 Test Item Value Reference Range Interpretation Comments POCT GLU (test code = 0962316761) 79 mg/dL 70-110 Lab Interpretation (test code = Normal 31749-0) [facility] GLUCOSE (AUTOMATED)2023-03-03 10:53:21 Test Item Value Reference Range Interpretation Comments POCT GLU (test code = 5495490556) 49 mg/dL 70-110 LL Lab Interpretation (test code = Abnormal 53830-4) [facility] GLUCOSE (AUTOMATED)2023-03-03 02:12:31 Test Item Value Reference Range Interpretation Comments POCT GLU (test code = 6130479356) 285 mg/dL 70-110 H Lab Interpretation (test code = Abnormal 84217-2) [facility] GLUCOSE (AUTOMATED)2023-03-02 22:30:10 Test Item Value Reference Range Interpretation Comments POCT GLU (test code = 6966123946) 277 mg/dL 70-110 H Lab Interpretation (test code = Abnormal 38505-7) [facility] GLUCOSE (AUTOMATED)2023-03-02 16:49:32 Test Item Value Reference Range Interpretation Comments POCT GLU (test code = 2931845596) 272 mg/dL 70-110 H Lab Interpretation (test code = Abnormal 40002-2) [facility] GLUCOSE (AUTOMATED)2023-03-02 12:46:42 Test Item Value Reference Range Interpretation Comments POCT GLU (test code = 3252650032) 92 mg/dL 70-110 Lab Interpretation (test code = Normal 87345-9) [facility] GLUCOSE (AUTOMATED)2023-03-02 12:06:19 Test Item Value Reference Range Interpretation Comments POCT GLU (test code = 2695324807) 68 mg/dL 70-110 L Lab Interpretation (test code = Abnormal 62809-2) [facility] GLUCOSE (AUTOMATED)2023-03-02 04:18:19 Test Item Value Reference Range Interpretation Comments POCT GLU (test code = 3233807943) 278 mg/dL 70-110 H Lab Interpretation (test code = Abnormal 51794-7) [facility] GLUCOSE (AUTOMATED)2023-03-02 01:22:00 Test Item Value Reference Range Interpretation Comments POCT GLU (test code = 0856952546) 317 mg/dL 70-110 H Lab Interpretation (test code = Abnormal 37390-9) [facility] GLUCOSE (AUTOMATED)2023-03-01 21:56:44 Test Item Value Reference Range Interpretation Comments POCT GLU (test code = 4561485733) 257 mg/dL 70-110 H Lab Interpretation (test code = Abnormal 69434-5) [facility] GLUCOSE (AUTOMATED)2023-03-01 16:04:31 Test Item Value Reference Range Interpretation Comments POCT GLU (test code = 7222382856) 254 mg/dL 70-110 H Lab Interpretation (test code = Abnormal 12441-7) [facility] GLUCOSE (AUTOMATED)2023-03-01 13:08:36 Test Item Value Reference Range Interpretation Comments POCT GLU (test code = 2422798466) 162 mg/dL 70-110 H Lab Interpretation (test code = Abnormal 70852-0) [facility] GLUCOSE (AUTOMATED)2023-03-01 01:59:26 Test Item Value Reference Range Interpretation Comments POCT GLU (test code = 2782206559) 257 mg/dL 70-110 H Lab Interpretation (test code = Abnormal 84575-8) [facility] GLUCOSE (AUTOMATED)2023-02-28 23:11:30 Test Item Value Reference Range Interpretation Comments POCT GLU (test code = 7819624239) 231 mg/dL 70-110 H Lab Interpretation (test code = Abnormal 99982-4) [facility] GLUCOSE (AUTOMATED)2023-02-28 21:35:38 Test Item Value Reference Range Interpretation Comments POCT GLU (test code = 3685373603) 194 mg/dL 70-110 H Lab Interpretation (test code = Abnormal 56886-1) [facility] GLUCOSE (AUTOMATED)2023-02-28 17:36:32 Test Item Value Reference Range Interpretation Comments POCT GLU (test code = 9480497983) 298 mg/dL 70-110 H Lab Interpretation (test code = Abnormal 28882-4) [facility] GLUCOSE (AUTOMATED)2023-02-28 13:09:50 Test Item Value Reference Range Interpretation Comments POCT GLU (test code = 1088162521) 191 mg/dL 70-110 H Lab Interpretation (test code = Abnormal 41931-1) [facility] GLUCOSE (AUTOMATED)2023-02-28 01:59:18 Test Item Value Reference Range Interpretation Comments POCT GLU (test code = 8264337941) 166 mg/dL 70-110 H Lab Interpretation (test code = Abnormal 15757-6) [facility] GLUCOSE (AUTOMATED)2023-02-27 21:30:17 Test Item Value Reference Range Interpretation Comments POCT GLU (test code = 0277664858) 282 mg/dL 70-110 H Lab Interpretation (test code = Abnormal 18093-7) [facility] GLUCOSE (AUTOMATED)2023-02-27 17:09:42 Test Item Value Reference Range Interpretation Comments POCT GLU (test code = 1379193332) 198 mg/dL 70-110 H Lab Interpretation (test code = Abnormal 91664-3) [facility] GLUCOSE (AUTOMATED)2023-02-27 16:44:10 Test Item Value Reference Range Interpretation Comments POCT GLU (test code = 7113089079) 190 mg/dL 70-110 H Lab Interpretation (test code = Abnormal 02163-6) [facility] GLUCOSE (AUTOMATED)2023-02-27 13:03:14 Test Item Value Reference Range Interpretation Comments POCT GLU (test code = 7392411400) 155 mg/dL 70-110 H Lab Interpretation (test code = Abnormal 04681-1) [facility] METABOLIC PANEL (NA, K, CL, CO2, GLUCOSE, BUN, CREATININE, CA)2023-02-27 08:26:33 Test Item Value Reference Range Interpretation Comments NA (test code = 136 mmol/L 135-145 3952982153) K (test code = 3.5 mmol/L 3.5-5.0 3149934192) CL (test code = 104 mmol/L 98-108 3555823528) CO2 TOTAL (test code = 31 mmol/L 23-31 0154657286) AGAP (test code = 1 2-16 L 3204988595) BUN (test code = 61 mg/dL 7-23 H 1690430535) GLUCOSE (test code = 187 mg/dL 70-110 H 7929729564) CREATININE (test code = 1.99 mg/dL 0.50-1.04 H 4660995225) CALCIUM (test code = 8.8 mg/dL 8.6-10.6 3524966460) eGFR (test code = 24.7 mL/min/1.73m2 3500907593) BRUNO (test code = BRUNO) Association of Glomerular Filtration Rate (GFR) and Staging of Kidney Disease* + --+ --+ ------+| GFR (mL/min/1.73 m2) ?| With Kidney Damage ?| ?Without Kidney Damage+ --------+ --------+ +| ?>90 ?| ?Stage one ?| ? Normal ?+ ---+ ---+ -------+| ?60-89 ?| ?Stage two ?| ? Decreased GFR ? + --+ --+ ------+| ?30-59 ?| ?Stage three ?| ? Stage three ? + --+ --+ ------+| ?15-29 ?| ?Stage four ? | ? Stage four ?+ ---+ ---+ -------+| ?<15 (or dialysis) ? ?| ?Stage five ? | ? Stage five ?+ ---+ ---+ -------+ *Each stage assumes the associated GFR level has been in effect for at least three months. ?Stages 1 to 5, with or without kidney disease, indicate chronic kidney disease. Notes: Determination of stages one and two (with eGFR >59mL/min/1.73 m2) requires estimation of kidney damage for at least three months as defined by structural or functional abnormalities of the kidney, manifested by either:Pathological abnormalities or Markers of kidney damage (including abnormalities in the composition of the blood or urine or abnormalities in imaging tests). Lab Interpretation Abnormal (test code = 99740-6) [facility] WITH [id number] 08:03:15 Test Item Value Reference Range Interpretation Comments WBC (test code = 10.02 See_Comment [Automated 9800-2) message] The sy stem which generated this result transmitted reference range : 4.30 - 11.10 10*3/?L. The reference range was not used to interpret this result as normal/abnormal . RBC (test code = 3.39 See_Comment L [Automated 705-) message] The sy stem which generated this result transmitted reference range : 3.93 - 5.25 10*6/?L. The reference range was not used to interpret this result as normal/abnormal . HGB (test code = 10.5 g/dL 11.6-15.0 L 718-7) HCT (test code = 33.6 % 35.7-45.2 L 4544-3) MCV (test code = 99.1 fL 80.6-95.5 H 787-2) MCH (test code = 31.0 pg 25.9-32.8 785-6) MCHC (test code = 31.3 g/dL 31.6-35.1 L 786-4) RDW-SD (test code = 59.7 fL 39.0-49.9 H 37957-2) RDW-CV (test code = 16.5 % 12.0-15.5 H 788-0) PLT (test code = 154 See_Comment L [Automated 777-3) message] The sy stem which generated this result transmitted reference range : 166 - 358 10*3/ ?L. The reference r fariba was not used to interpret this result as normal/abnormal . MPV (test code = 10.8 fL 9.5-12.9 79115-4) NRBC/100 WBC (test 0.0 See_Comment [Automat ed code = 2122131018) message] The system which generated this result transmitted reference range : 0.0 - 10.0 /100 WBCs. The refer ence range was not u sed to interpret th is result as normal/abnormal . NRBC x10^3 (test code See_Comment [Auto mated = 6454875684) message] The s ystem which generated this result transmitted reference range : 10*3/?L. The reference range was not used to interpret this result as normal/abnormal . GRAN MAT (NEUT) % 73.5 % (test code = 770-8) IMM GRAN % (test code 0.90 % = 1098598780) LYMPH % (test code = 20.0 % 736-9) MONO % (test code = 5.3 % 5905-5) EOS % (test code = 0.1 % 713-8) BASO % (test code = 0.2 % 706-2) GRAN MAT x10^3(ANC) 7.37 10*3/uL 1.88-7.09 H (test code = 3182799175) IMM GRAN x10^3 (test 0.09 10*3/uL 0.00-0.06 H code = 9882090789) LYMPH x10^3 (test code 2.00 10*3/uL 1.32-3.29 = 731-0) MONO x10^3 (test code 0.53 10*3/uL 0.33-0.92 = 742-7) EOS x10^3 (test code = 0.03-0.39 L 711-2) BASO x10^3 (test code 0.01-0.07 = 704-7) Lab Interpretation Abnormal (test code = 82556-4) [facility] GLUCOSE (AUTOMATED)2023-02-27 02:14:26 Test Item Value Reference Range Interpretation Comments POCT GLU (test code = 1545246299) 267 mg/dL 70-110 H Lab Interpretation (test code = Abnormal 05176-5) [facility] GLUCOSE (AUTOMATED)2023-02-26 23:10:51 Test Item Value Reference Range Interpretation Comments POCT GLU (test code = 2576894165) 266 mg/dL 70-110 H Lab Interpretation (test code = Abnormal 03025-0) [facility] GLUCOSE (AUTOMATED)2023-02-26 20:16:57 Test Item Value Reference Range Interpretation Comments POCT GLU (test code = 7224911225) 276 mg/dL 70-110 H Lab Interpretation (test code = Abnormal 24287-2) [facility] GLUCOSE (AUTOMATED)2023-02-26 17:03:50 Test Item Value Reference Range Interpretation Comments POCT GLU (test code = 2647591724) 457 mg/dL 70-110 HH Lab Interpretation (test code = Abnormal 96361-8) [facility] GLUCOSE (AUTOMATED)2023-02-26 12:54:38 Test Item Value Reference Range Interpretation Comments POCT GLU (test code = 1888841045) 172 mg/dL 70-110 H Lab Interpretation (test code = Abnormal 62008-7) [facility] GLUCOSE (AUTOMATED)2023-02-26 10:25:29 Test Item Value Reference Range Interpretation Comments POCT GLU (test code = 220 mg/dL 70-110 H Notifi ed Provider 2371744542) Lab Interpretation (test Abnormal code = 23687-1) [facility] 07:41:19 Test Item Value Reference Range Interpretation Comments POCT GLU (test code = 4457362236) 327 mg/dL 70-110 H Lab Interpretation (test code = Abnormal 92455-2) [facility] 04:42:02 Test Item Value Reference Range Interpretation Comments POCT GLU (test code = 5669301442) 397 mg/dL 70-110 H Lab Interpretation (test code = Abnormal 44857-4) [facility] 04:42:01 Test Item Value Reference Range Interpretation Comments POCT GLU (test code = 7563335637) 403 mg/dL 70-110 H Lab Interpretation (test code = Abnormal 53738-3) [facility]23-[facility]26 01:32:20 Test Item Value Reference Range Interpretation Comments POCT GLU (test code = 7347342433) 393 mg/dL 70-110 H Lab Interpretation (test code = Abnormal 14006-2) [facility]23-[facility]-25 21:12:55 Test Item Value Reference Range Interpretation Comments POCT GLU (test code = 6232423692) 316 mg/dL 70-110 H Lab Interpretation (test code = Abnormal 39763-3) [facility] GLUCOSE (AUTOMATED)2023-02-25 16:33:46 Test Item Value Reference Range Interpretation Comments POCT GLU (test code = 4827836760) 272 mg/dL 70-110 H Lab Interpretation (test code = Abnormal 33635-0) [facility] 13:01:21 Test Item Value Reference Range Interpretation Comments POCT GLU (test code = 4538883566) 275 mg/dL 70-110 H Lab Interpretation (test code = Abnormal 05548-4) [facility] 01:17:06 Test Item Value Reference Range Interpretation Comments POCT GLU (test code = 5005541055) 328 mg/dL 70-110 H Lab Interpretation (test code = Abnormal 92448-7) [facility] GLUCOSE (AUTOMATED)2023-02-25 00:03:47 Test Item Value Reference Range Interpretation Comments POCT GLU (test code = 8971269736) 370 mg/dL 70-110 H Lab Interpretation (test code = Abnormal 74225-2) [facility] GLUCOSE (AUTOMATED)2023-02-24 22:09:08 Test Item Value Reference Range Interpretation Comments POCT GLU (test code = 5645745042) 468 mg/dL 70-110 HH Lab Interpretation (test code = Abnormal 28561-2) [facility] GLUCOSE (AUTOMATED)2023-02-24 17:03:56 Test Item Value Reference Range Interpretation Comments POCT GLU (test code = 4716580475) 367 mg/dL 70-110 H Lab Interpretation (test code = Abnormal 88611-4) [facility] GLUCOSE (AUTOMATED)2023-02-24 11:22:15 Test Item Value Reference Range Interpretation Comments POCT GLU (test code = 1273370939) 207 mg/dL 70-110 H Lab Interpretation (test code = Abnormal 19978-8) [facility]. METABOLIC PANEL ([id number])2023-02-24 10:04:37 Test Item Value Reference Range Interpretation Comments NA (test code = 134 mmol/L 135-145 L 6452287481) K (test code = 4.2 mmol/L 3.5-5.0 Slight 8051780937) hemolysis CL (test code = 99 mmol/L 98-108 2642311346) CO2 TOTAL (test code 34 mmol/L 23-31 H = 6419419907) AGAP (test code = 1 2-16 L 6331269420) BUN (test code = 82 mg/dL 7-23 H Slight 4890869968) hemolysis GLUCOSE (test code = 196 mg/dL 70-110 H 8887994720) CREATININE (test code 1.76 mg/dL 0.50-1.04 H = 6391315736) TOTAL BILI (test code 0.7 mg/dL 0.1-1.1 = 4072534020) CALCIUM (test code = 8.4 mg/dL 8.6-10.6 L 7738491044) T PROTEIN (test code 5.4 g/dL 6.3-8.2 L = 5330089912) ALBUMIN (test code = 2.7 g/dL 3.5-5.0 L 7712341769) ALK PHOS (test code = 57 U/L 34-122 Slight 1976612329) hemolysis ALTv (test code = 24 U/L 5-35 1742-6) AST(SGOT) (test code 24 U/L 13-40 Slight = 3903011886) hemolysis eGFR (test code = 28.5 mL/min/1.73m2 5868752226) BRUNO (test code = BRUNO) Association of Glomerular Filtration Rate (GFR) and Staging of Kidney Disease* + -----+ --------+ +| GFR (mL/min/1.73 m2) ?| With Kidney Damage ?| ?Without Kidney Damage+ +------- +---- --+| ?>90 ?| ?Stage one ?| ? Normal ?+ ------+ ---------+--------- +| ?60-89 ?| ?Stage two ?| ? Decreased GFR ? + -----+ --------+ +| ?30-59 ?| ?Stage three ?| ? Stage three ? + -----+ --------+ +| ?15-29 ?| ?Stage four ? | ? Stage four ?+ ------+ ---------+--------- +| ?<15 (or dialysis) ? ?| ?Stage five ? | ? Stage five ?+ ------+ ---------+--------- + *Each stage assumes the associated GFR level has been in effect for at least three months. ?Stages 1 to 5, with or without kidney disease, indicate chronic kidney disease. Notes: Determination of stages one and two (with eGFR >59mL/min/1.73 m2) requires estimation of kidney damage for at least three months as defined by structural or functional abnormalities of the kidney, manifested by either:Pathological abnormalities or Markers of kidney damage (including abnormalities in the composition of the blood or urine or abnormalities in imaging tests). Lab Interpretation Abnormal (test code = 62978-0) [facility]37 Test Item Value Reference Range Interpretation Comments MAGNESIUM (test code = 2252077653) 2.6 mg/dL 1.7-2.4 H Lab Interpretation (test code = Abnormal 93259-9) [facility] 10:04:37 Test Item Value Reference Range Interpretation Comments PHOSPHORUS (test code = 0711520371) 5.2 mg/dL 2.5-5.0 H Lab Interpretation (test code = Abnormal 37268-4) [facility] WITH [id number] 09:41:14 Test Item Value Reference Range Interpretation Comments WBC (test code = 9.34 See_Comment [Automated 6690-2) message] The sy stem which generated this result transmitted reference range : 4.30 - 11.10 10*3/?L. The reference range was not used to interpret this result as normal/abnormal . RBC (test code = 3.30 See_Comment L [Automated 789-8) message] The sy stem which generated this result transmitted reference range : 3.93 - 5.25 10*6/?L. The reference range was not used to interpret this result as normal/abnormal . HGB (test code = 10.3 g/dL 11.6-15.0 L 718-7) HCT (test code = 32.4 % 35.7-45.2 L 4544-3) MCV (test code = 98.2 fL 80.6-95.5 H 787-2) MCH (test code = 31.2 pg 25.9-32.8 785-6) MCHC (test code = 31.8 g/dL 31.6-35.1 786-4) RDW-SD (test code = 61.4 fL 39.0-49.9 H 33423-7) RDW-CV (test code = 17.2 % 12.0-15.5 H 788-0) PLT (test code = 152 See_Comment L [Automated 777-3) message] The sy stem which generated this result transmitted reference range : 166 - 358 10*3/ ?L. The reference r fariba was not used to interpret this result as normal/abnormal . MPV (test code = 11.3 fL 9.5-12.9 14133-3) NRBC/100 WBC (test 0.0 See_Comment [Automat ed code = 5641669170) message] The system which generated this result transmitted reference range : 0.0 - 10.0 /100 WBCs. The refer ence range was not u sed to interpret th is result as normal/abnormal . NRBC x10^3 (test code See_Comment [Auto mated = 3553117796) message] The s ystem which generated this result transmitted reference range : 10*3/?L. The reference range was not used to interpret this result as normal/abnormal . GRAN MAT (NEUT) % 83.9 % (test code = 770-8) IMM GRAN % (test code 0.40 % = 4590546740) LYMPH % (test code = 13.9 % 736-9) MONO % (test code = 1.7 % 5905-5) EOS % (test code = 0.0 % 713-8) BASO % (test code = 0.1 % 706-2) GRAN MAT x10^3(ANC) 7.83 10*3/uL 1.88-7.09 H (test code = 5684128650) IMM GRAN x10^3 (test 0.04 10*3/uL 0.00-0.06 code = 4305819576) LYMPH x10^3 (test code 1.30 10*3/uL 1.32-3.29 L = 731-0) MONO x10^3 (test code 0.16 10*3/uL 0.33-0.92 L = 742-7) EOS x10^3 (test code = 0.03-0.39 L 711-2) BASO x10^3 (test code 0.01-0.07 = 704-7) Lab Interpretation Abnormal (test code = 29680-4) [facility] 05:00:14 Test Item Value Reference Range Interpretation Comments POCT GLU (test code = 1908008558) 201 mg/dL 70-110 H Lab Interpretation (test code = Abnormal 75841-1) [facility] + Lactic [id number] 03:15:53 Test Item Value Reference Range Interpretation Comments PH (test code = 2) 7.44 7.35-7.45 PCO2 (test code = 50 See_Comment H [Automate d 2669466786) message] The sy stem which generated this result transmitted reference range : 35 - 45 mmHg. The reference range was not used to interpret this result as normal/abnormal . PO2 (test code = 78 See_Comment L [Automated 2751211193) message] The sy stem which generated this result transmitted reference range : 80 - 100 mmHg. The reference range was not used to interpret this result as normal/abnormal . HCO3 (test code = 33 See_Comment H [Automate d 0221892065) message] The sy stem which generated this result transmitted reference range : 22 - 26 mEq/L. The reference range was not used to interpret this result as normal/abnormal . BE (test code = 7.7 See_Comment H [Automated 0894638608) message] The sy stem which generated this result transmitted reference range : -3.0 - 3.0 mEq/ L. The reference r fariba was not used to interpret this result as normal/abnormal . THB (test code = 14.5 g/dL 12.0-16.0 9270657947) %O2HB (test code = 93.8 % 94.0-99.0 L 9577618340) %COHB ART (test code = 1.2 % 0.0-1.5 4846452489) %METHB ART (test code = 0.5 % 0.4-1.5 0999582289) VOL%O2 ART (test code = 19.2 % 15.0-23.0 1788724003) NA (test code = 137 mmol/L 135-145 0645735776) K+ (test code = 4.2 mmol/L 3.5-5.0 8922257472) AC CA IONZ (test code = 4.80 mg/dL 4.50-5.30 7672559478) GLUCOSE (test code = 190 mg/dL 70-110 H 1930822066) LACTIC ACID (test code 1.57 mmol/L 0.50-2.20 = 3206719137) Lab Interpretation Abnormal (test code = 50451-4) [facility] GLUCOSE (AUTOMATED)2023-02-23 21:54:48 Test Item Value Reference Range Interpretation Comments POCT GLU (test code = 2887002380) 135 mg/dL 70-110 H Lab Interpretation (test code = Abnormal 31606-8) [facility] GLUCOSE (AUTOMATED)2023-02-23 16:36:47 Test Item Value Reference Range Interpretation Comments POCT GLU (test code = 8913067872) 111 mg/dL 70-110 H Lab Interpretation (test code = Abnormal 40714-7) [facility] + Lactic [id number] 13:42:21 Test Item Value Reference Range Interpretation Comments PH (test code = 2) 7.42 7.35-7.45 PCO2 (test code = 51 See_Comment H [Automate d 0717436528) message] The sy stem which generated this result transmitted reference range : 35 - 45 mmHg. The reference range was not used to interpret this result as normal/abnormal . PO2 (test code = 49 See_Comment L [Automated 0693654332) message] The sy stem which generated this result transmitted reference range : 80 - 100 mmHg. The reference range was not used to interpret this result as normal/abnormal . HCO3 (test code = 32 See_Comment H [Automate d 3344798627) message] The sy stem which generated this result transmitted reference range : 22 - 26 mEq/L. The reference range was not used to interpret this result as normal/abnormal . BE (test code = 6.6 See_Comment H [Automated 6786159522) message] The sy stem which generated this result transmitted reference range : -3.0 - 3.0 mEq/ L. The reference r fariba was not used to interpret this result as normal/abnormal . THB (test code = 12.5 g/dL 12.0-16.0 7865852655) %O2HB (test code = 84.4 % 94.0-99.0 L 3520386761) %COHB ART (test code = 0.5 % 0.0-1.5 9494435116) %METHB ART (test code = 0.3 % 0.4-1.5 L 1159685855) VOL%O2 ART (test code = 14.8 % 15.0-23.0 L 3020502445) NA (test code = 137 mmol/L 135-145 4186878571) K+ (test code = 4.1 mmol/L 3.5-5.0 9730473670) AC CA IONZ (test code = 4.60 mg/dL 4.50-5.30 2616024108) GLUCOSE (test code = 158 mg/dL 70-110 H 9827774927) LACTIC ACID (test code 1.57 mmol/L 0.50-2.20 = 9868716466) Lab Interpretation Abnormal (test code = 91467-4) [facility] 13:29:37 Test Item Value Reference Range Interpretation Comments POCT GLU (test code = 6064928419) 178 mg/dL 70-110 H Lab Interpretation (test code = Abnormal 92586-8) [facility]. METABOLIC PANEL ([id number])2023-02-23 11:24:10 Test Item Value Reference Range Interpretation Comments NA (test code = 136 mmol/L 135-145 7507366991) K (test code = 4.3 mmol/L 3.5-5.0 3537244617) CL (test code = 100 mmol/L 98-108 8911367969) CO2 TOTAL (test code = 35 mmol/L 23-31 H 7088113643) AGAP (test code = 1 2-16 L 8553756818) BUN (test code = 82 mg/dL 7-23 H 2602261078) GLUCOSE (test code = 122 mg/dL 70-110 H 6354831245) CREATININE (test code = 2.37 mg/dL 0.50-1.04 H 3293831951) TOTAL BILI (test code = 0.5 mg/dL 0.1-1.8 6688255275) CALCIUM (test code = 8.4 mg/dL 8.6-10.6 L 6233391459) T PROTEIN (test code = 5.2 g/dL 6.3-8.2 L 4313272208) ALBUMIN (test code = 2.7 g/dL 3.5-5.0 L 6037086346) ALK PHOS (test code = 67 U/L 34-122 8067448731) ALTv (test code = 25 U/L 5-35 1742-6) AST(SGOT) (test code = 21 U/L 13-40 0362720758) eGFR (test code = 20.2 mL/min/1.73m2 6996419068) BRUNO (test code = BRUNO) Association of Glomerular Filtration Rate (GFR) and Staging of Kidney Disease* + --+ --+ ------+| GFR (mL/min/1.73 m2) ?| With Kidney Damage ?| ?Without Kidney Damage+ --------+ --------+ +| ?>90 ?| ?Stage one ?| ? Normal ?+ ---+ ---+ -------+| ?60-89 ?| ?Stage two ?| ? Decreased GFR ? + --+ --+ ------+| ?30-59 ?| ?Stage three ?| ? Stage three ? + --+ --+ ------+| ?15-29 ?| ?Stage four ? | ? Stage four ?+ ---+ ---+ -------+| ?<15 (or dialysis) ? ?| ?Stage five ? | ? Stage five ?+ ---+ ---+ -------+ *Each stage assumes the associated GFR level has been in effect for at least three months. ?Stages 1 to 5, with or without kidney disease, indicate chronic kidney disease. Notes: Determination of stages one and two (with eGFR >59mL/min/1.73 m2) requires estimation of kidney damage for at least three months as defined by structural or functional abnormalities of the kidney, manifested by either:Pathological abnormalities or Markers of kidney damage (including abnormalities in the composition of the blood or urine or abnormalities in imaging tests). Lab Interpretation Abnormal (test code = 99746-3) [facility] 11:14:43 Test Item Value Reference Range Interpretation Comments POCT GLU (test code = 4000893271) 224 mg/dL 70-110 H Lab Interpretation (test code = Abnormal 52441-8) [facility] 11:07:27 Test Item Value Reference Range Interpretation Comments MAGNESIUM (test code = 8332650817) 2.5 mg/dL 1.7-2.4 H Lab Interpretation (test code = Abnormal 61322-6) [id number] 10:38:24 Test Item Value Reference Range Interpretation Comments NT-proBNP (test code = 1150 pg/mL <=125 H 3860697073) BRUNO (test code = BRUNO) Biotin has been reported to cause a negative bias, interpret results relative to patient's use of biotin. Lab Interpretation (test Abnormal code = 16962-5) [facility] [id number] 10:38:24 Test Item Value Reference Range Interpretation Comments TROPONIN I (test code = 0.173 ng/mL <=0.034 H 8340911906) BRUNO (test code = BRUNO) Reference (Normal) Range (defined by the 99th percentile reference limit): <= 0.034 ng/mL Note: Cardiac troponin begins to rise 3-4 hours after the onset of ischemia. Repeat in 4-6 hours if the sample was drawn within 3-4 hours of the onset of the symptom and found normal. Diagnosis of myocardial injury is made with acute changes in cTn concentrations with at least one serial sample above the 99th percentile upper reference limit (URL), taken together with the patient's clinical presentation. Biotin has been reported to cause a negative bias, interpret results relative to patient's use of biotin. Lab Interpretation Abnormal (test code = 19402-8) [facility] WITH [id number] 10:31:21 Test Item Value Reference Range Interpretation Comments WBC (test code = 10.61 See_Comment [Automated 6690-2) message] The sy stem which generated this result transmitted reference range : 4.30 - 11.10 10*3/?L. The reference range was not used to interpret this result as normal/abnormal . RBC (test code = 4.30 See_Comment [Automated 789-8) message] The sy stem which generated this result transmitted reference range : 3.93 - 5.25 10*6/?L. The reference range was not used to interpret this result as normal/abnormal . HGB (test code = 13.3 g/dL 11.6-15.0 718-7) HCT (test code = 43.2 % 35.7-45.2 4544-3) MCV (test code = 100.5 fL 80.6-95.5 H 787-2) MCH (test code = 30.9 pg 25.9-32.8 785-6) MCHC (test code = 30.8 g/dL 31.6-35.1 L 786-4) RDW-SD (test code = 63.7 fL 39.0-49.9 H 33990-5) RDW-CV (test code = 17.5 % 12.0-15.5 H 788-0) PLT (test code = 183 See_Comment [Automated 777-3) message] The sy stem which generated this result transmitted reference range : 166 - 358 10*3/ ?L. The reference r fariba was not used to interpret this result as normal/abnormal . MPV (test code = 10.9 fL 9.5-12.9 30421-5) NRBC/100 WBC (test 0.0 See_Comment [Automat ed code = 5834675207) message] The system which generated this result transmitted reference range : 0.0 - 10.0 /100 WBCs. The refer ence range was not u sed to interpret th is result as normal/abnormal . NRBC x10^3 (test code See_Comment [Auto mated = 1032857265) message] The s ystem which generated this result transmitted reference range : 10*3/?L. The reference range was not used to interpret this result as normal/abnormal . GRAN MAT (NEUT) % 67.5 % (test code = 770-8) IMM GRAN % (test code 0.80 % = 9052441198) LYMPH % (test code = 23.2 % 736-9) MONO % (test code = 6.3 % 5905-5) EOS % (test code = 1.9 % 713-8) BASO % (test code = 0.3 % 706-2) GRAN MAT x10^3(ANC) 7.17 10*3/uL 1.88-7.09 H (test code = 0245148617) IMM GRAN x10^3 (test 0.08 10*3/uL 0.00-0.06 H code = 9207774009) LYMPH x10^3 (test code 2.46 10*3/uL 1.32-3.29 = 731-0) MONO x10^3 (test code 0.67 10*3/uL 0.33-0.92 = 742-7) EOS x10^3 (test code = 0.20 10*3/uL 0.03-0.39 711-2) BASO x10^3 (test code 0.03 10*3/uL 0.01-0.07 = 704-7) Lab Interpretation Abnormal (test code = 06096-0) [facility] GLUCOSE (AUTOMATED)2023-02-21 17:27:09 Test Item Value Reference Range Interpretation Comments POCT GLU (test code = 218 mg/dL 70-110 H Notifi ed Provider [id number]) Lab Interpretation (test Abnormal code = 15704-2) [facility]25 Test Item Value Reference Range Interpretation Comments POCT GLU (test code = 146 mg/dL 70-110 H Notifi ed Provider [id number]) Lab Interpretation (test Abnormal code = 07642-7) [facility] 01:46:30 Test Item Value Reference Range Interpretation Comments POCT GLU (test code = 2446247639) 132 mg/dL 70-110 H Lab Interpretation (test code = Abnormal 69936-3) [facility] GLUCOSE (AUTOMATED)2023-02-20 23:25:52 Test Item Value Reference Range Interpretation Comments POCT GLU (test code = 7266653179) 199 mg/dL 70-110 H Lab Interpretation (test code = Abnormal 30657-5) [facility] 22:27:53 Test Item Value Reference Range Interpretation Comments POCT GLU (test code = 4408517781) 64 mg/dL 70-110 L Lab Interpretation (test code = Abnormal 20756-5) [facility] 17:13:05 Test Item Value Reference Range Interpretation Comments POCT GLU (test code = 8038061469) 252 mg/dL 70-110 H Lab Interpretation (test code = Abnormal 34191-3) [facility] 13:27:15 Test Item Value Reference Range Interpretation Comments POCT GLU (test code = 9749487396) 145 mg/dL 70-110 H Lab Interpretation (test code = Abnormal 36078-0) [facility] 01:14:44 Test Item Value Reference Range Interpretation Comments POCT GLU (test code = 1449359125) 199 mg/dL 70-110 H Lab Interpretation (test code = Abnormal 76651-8) [facility] GLUCOSE (AUTOMATED)2023-02-19 22:36:30 Test Item Value Reference Range Interpretation Comments POCT GLU (test code = 79 mg/dL 70-110 Notifi ed Provider [id number]) Lab Interpretation (test Normal code = 84456-6) [facility]23-[facility]-19 18:06:59 Test Item Value Reference Range Interpretation Comments POCT GLU (test code = 7103341603) 312 mg/dL 70-110 H Lab Interpretation (test code = Abnormal 07906-2) [facility] GLUCOSE (AUTOMATED)2023-02-19 13:24:33 Test Item Value Reference Range Interpretation Comments POCT GLU (test code = 120 mg/dL 70-110 H Notifi ed Provider [id number]) Lab Interpretation (test Abnormal code = 62641-8) [facility] 10:32:58 Test Item Value Reference Range Interpretation Comments PHOSPHORUS (test code = 0993543861) 4.8 mg/dL 2.5-5.0 Lab Interpretation (test code = Normal 07169-3) [facility] 10:32:58 Test Item Value Reference Range Interpretation Comments MAGNESIUM (test code = 2305139482) 2.5 mg/dL 1.7-2.4 H Lab Interpretation (test code = Abnormal 62539-0) [facility]NA, K, CL, CO2, GLUCOSE, BUN, CREATININE, CA)2023-02-19 10:32:58 Test Item Value Reference Range Interpretation Comments NA (test code = 138 mmol/L 135-145 0151045373) K (test code = 4.0 mmol/L 3.5-5.0 5202806863) CL (test code = 101 mmol/L 98-108 4752111142) CO2 TOTAL (test code = 35 mmol/L 23-31 H 9614778874) AGAP (test code = 2 2-16 5605910438) BUN (test code = 91 mg/dL 7-23 H 2933714089) GLUCOSE (test code = 135 mg/dL 70-110 H 7081778648) CREATININE (test code = 1.89 mg/dL 0.50-1.04 H 2278500630) CALCIUM (test code = 8.7 mg/dL 8.6-10.6 8555875109) eGFR (test code = 26.2 mL/min/1.73m2 7416856671) BRUNO (test code = BRUNO) Association of Glomerular Filtration Rate (GFR) and Staging of Kidney Disease* + --+ --+ ------+| GFR (mL/min/1.73 m2) ?| With Kidney Damage ?| ?Without Kidney Damage+ --------+ --------+ +| ?>90 ?| ?Stage one ?| ? Normal ?+ ---+ ---+ -------+| ?60-89 ?| ?Stage two ?| ? Decreased GFR ? + --+ --+ ------+| ?30-59 ?| ?Stage three ?| ? Stage three ? + --+ --+ ------+| ?15-29 ?| ?Stage four ? | ? Stage four ?+ ---+ ---+ -------+| ?<15 (or dialysis) ? ?| ?Stage five ? | ? Stage five ?+ ---+ ---+ -------+ *Each stage assumes the associated GFR level has been in effect for at least three months. ?Stages 1 to 5, with or without kidney disease, indicate chronic kidney disease. Notes: Determination of stages one and two (with eGFR >59mL/min/1.73 m2) requires estimation of kidney damage for at least three months as defined by structural or functional abnormalities of the kidney, manifested by either:Pathological abnormalities or Markers of kidney damage (including abnormalities in the composition of the blood or urine or abnormalities in imaging tests). Lab Interpretation Abnormal (test code = 16534-4) [facility] WITH [id number] 10:16:17 Test Item Value Reference Range Interpretation Comments WBC (test code = 13.86 See_Comment H [Automated 3968-2) message] The system which generated this result transmit walt reference range : 4.30 - 11.10 10*3/?L. The reference range was not used to interpret this result as normal/abnormal . RBC (test code = 3.62 See_Comment L [Automated 834-8) message] The system which generated this result transmit walt reference range : 3.93 - 5.25 10*6/?L. The reference range was not used to interpret this result as normal/abnormal . HGB (test code = 11.2 g/dL 11.6-15.0 L 718-7) HCT (test code = 35.2 % 35.7-45.2 L 4544-3) MCV (test code = 97.2 fL 80.6-95.5 H 787-2) MCH (test code = 30.9 pg 25.9-32.8 785-6) MCHC (test code = 31.8 g/dL 31.6-35.1 786-4) RDW-SD (test code = 60.4 fL 39.0-49.9 H 45081-9) RDW-CV (test code = 16.9 % 12.0-15.5 H 788-0) PLT (test code = 182 See_Comment [Automated 777-3) message] The system which generated this result transmit walt reference range : 166 - 358 10*3/ ?L. The reference range was not u sed to interpret th is result as normal/abnormal . MPV (test code = 10.6 fL 9.5-12.9 13366-6) NRBC/100 WBC (test 0.0 See_Comment [Automat ed code = 0183044536) message] The system which generated this result transmit walt reference range : 0.0 - 10.0 /100 WBCs. The reference range was not used to interpret this result as normal/abnormal . NRBC x10^3 (test code See_Comment [Auto mated = 6619800172) message] The system which generated this result transmit walt reference range : 10*3/?L. The reference range was not used to interpret this result as normal/abnormal . GRAN MAT (NEUT) % 79.2 % (test code = 770-8) IMM GRAN % (test code 0.80 % = 8820306175) LYMPH % (test code = 14.6 % 736-9) MONO % (test code = 5.3 % 5905-5) EOS % (test code = 0.0 % 713-8) BASO % (test code = 0.1 % 706-2) GRAN MAT x10^3(ANC) 10.97 10*3/uL 1.88-7.09 H (test code = 4977298060) IMM GRAN x10^3 (test 0.11 10*3/uL 0.00-0.06 H code = 2792334865) LYMPH x10^3 (test code 2.03 10*3/uL 1.32-3.29 = 731-0) MONO x10^3 (test code 0.73 10*3/uL 0.33-0.92 = 742-7) EOS x10^3 (test code = 0.03-0.39 L 711-2) BASO x10^3 (test code 0.01-0.07 = 704-7) Lab Interpretation Abnormal (test code = 13936-7) [facility] GLUCOSE (AUTOMATED)2023-02-19 02:10:42 Test Item Value Reference Range Interpretation Comments POCT GLU (test code = 0811045461) 271 mg/dL 70-110 H Lab Interpretation (test code = Abnormal 72576-1) [facility] GLUCOSE (AUTOMATED)2023-02-18 23:30:31 Test Item Value Reference Range Interpretation Comments POCT GLU (test code = 8314746172) 289 mg/dL 70-110 H Lab Interpretation (test code = Abnormal 01301-6) [facility] GLUCOSE (AUTOMATED)2023-02-18 22:05:26 Test Item Value Reference Range Interpretation Comments POCT GLU (test code = 5193388659) 256 mg/dL 70-110 H Lab Interpretation (test code = Abnormal 85988-5) [facility] GLUCOSE (AUTOMATED)2023-02-18 16:26:20 Test Item Value Reference Range Interpretation Comments POCT GLU (test code = 4309054536) 89 mg/dL 70-110 Lab Interpretation (test code = Normal 69167-1) [facility] GLUCOSE (AUTOMATED)2023-02-18 13:19:21 Test Item Value Reference Range Interpretation Comments POCT GLU (test code = 5974977868) 123 mg/dL 70-110 H Lab Interpretation (test code = Abnormal 34753-5) [facility] GLUCOSE (AUTOMATED)2023-02-18 12:49:18 Test Item Value Reference Range Interpretation Comments POCT GLU (test code = 0799757588) 122 mg/dL 70-110 H Lab Interpretation (test code = Abnormal 26961-7) [facility] GLUCOSE (AUTOMATED)2023-02-18 10:33:57 Test Item Value Reference Range Interpretation Comments POCT GLU (test code = 3946539979) 156 mg/dL 70-110 H Lab Interpretation (test code = Abnormal 44227-5) [facility] GLUCOSE (AUTOMATED)2023-02-18 01:38:17 Test Item Value Reference Range Interpretation Comments POCT GLU (test code = 5695470318) 143 mg/dL 70-110 H Lab Interpretation (test code = Abnormal 08653-2) [facility] GLUCOSE (AUTOMATED)2023-02-17 22:13:31 Test Item Value Reference Range Interpretation Comments POCT GLU (test code = 5109417123) 103 mg/dL 70-110 Lab Interpretation (test code = Normal 62471-7) [facility] GLUCOSE (AUTOMATED)2023-02-17 17:21:59 Test Item Value Reference Range Interpretation Comments POCT GLU (test code = 6989098359) 209 mg/dL 70-110 H Lab Interpretation (test code = Abnormal 32191-0) [id number] 14:11:53 Test Item Value Reference Range Interpretation Comments NT-proBNP (test code = 332 pg/mL <=125 H 3236853825) BRUNO (test code = BRUNO) Biotin has been reported to cause a negative bias, interpret results relative to patient's use of biotin. Lab Interpretation (test Abnormal code = 91763-7) [facility] METABOLIC PANEL (NA, K, CL, CO2, GLUCOSE, BUN, CREATININE, CA)2023-02-17 12:57:22 Test Item Value Reference Range Interpretation Comments NA (test code = 144 mmol/L 135-145 4959136900) K (test code = 3.3 mmol/L 3.5-5.0 L 5870310157) CL (test code = 101 mmol/L 98-108 4042493788) CO2 TOTAL (test code = 39 mmol/L 23-31 H 2404432203) AGAP (test code = 4 2-16 3650678676) BUN (test code = 78 mg/dL 7-23 H 1706784222) GLUCOSE (test code = 124 mg/dL 70-110 H 0453238243) CREATININE (test code = 1.57 mg/dL 0.50-1.04 H 3697144215) CALCIUM (test code = 8.6 mg/dL 8.6-10.6 2930375415) eGFR (test code = 32.5 mL/min/1.73m2 5941935332) BRUNO (test code = BRUNO) Association of Glomerular Filtration Rate (GFR) and Staging of Kidney Disease* + --+ --+ ------+| GFR (mL/min/1.73 m2) ?| With Kidney Damage ?| ?Without Kidney Damage+ --------+ --------+ +| ?>90 ?| ?Stage one ?| ? Normal ?+ ---+ ---+ -------+| ?60-89 ?| ?Stage two ?| ? Decreased GFR ? + --+ --+ ------+| ?30-59 ?| ?Stage three ?| ? Stage three ? + --+ --+ ------+| ?15-29 ?| ?Stage four ? | ? Stage four ?+ ---+ ---+ -------+| ?<15 (or dialysis) ? ?| ?Stage five ? | ? Stage five ?+ ---+ ---+ -------+ *Each stage assumes the associated GFR level has been in effect for at least three months. ?Stages 1 to 5, with or without kidney disease, indicate chronic kidney disease. Notes: Determination of stages one and two (with eGFR >59mL/min/1.73 m2) requires estimation of kidney damage for at least three months as defined by structural or functional abnormalities of the kidney, manifested by either:Pathological abnormalities or Markers of kidney damage (including abnormalities in the composition of the blood or urine or abnormalities in imaging tests). Lab Interpretation Abnormal (test code = 69571-4) [facility] 12:39:16 Test Item Value Reference Range Interpretation Comments POCT GLU (test code = 2634260862) 116 mg/dL 70-110 H Lab Interpretation (test code = Abnormal 71001-3) [facility] 12:12:41 Test Item Value Reference Range Interpretation Comments MAGNESIUM (test code = 3795018539) 2.2 mg/dL 1.7-2.4 Lab Interpretation (test code = Normal 46459-9) [facility] WITH [id number] 10:41:55 Test Item Value Reference Range Interpretation Comments WBC (test code = 12.72 See_Comment H [Automated 6690-2) message] The system which generated this result transmit walt reference range : 4.30 - 11.10 10*3/?L. The reference range was not used to interpret this result as normal/abnormal . RBC (test code = 4.20 See_Comment [Automated 789-8) message] The system which generated this result transmit walt reference range : 3.93 - 5.25 10*6/?L. The reference range was not used to interpret this result as normal/abnormal . HGB (test code = 12.8 g/dL 11.6-15.0 718-7) HCT (test code = 41.2 % 35.7-45.2 4544-3) MCV (test code = 98.1 fL 80.6-95.5 H 787-2) MCH (test code = 30.5 pg 25.9-32.8 785-6) MCHC (test code = 31.1 g/dL 31.6-35.1 L 786-4) RDW-SD (test code = 61.3 fL 39.0-49.9 H 40876-0) RDW-CV (test code = 17.2 % 12.0-15.5 H 788-0) PLT (test code = 202 See_Comment [Automated 777-3) message] The system which generated this result transmit walt reference range : 166 - 358 10*3/ ?L. The reference range was not u sed to interpret th is result as normal/abnormal . MPV (test code = 10.6 fL 9.5-12.9 73830-5) NRBC/100 WBC (test 0.0 See_Comment [Automat ed code = 9322655782) message] The system which generated this result transmit walt reference range : 0.0 - 10.0 /100 WBCs. The reference range was not used to interpret this result as normal/abnormal . NRBC x10^3 (test code See_Comment [Auto mated = 0866369247) message] The system which generated this result transmit walt reference range : 10*3/?L. The reference range was not used to interpret this result as normal/abnormal . GRAN MAT (NEUT) % 80.2 % (test code = 770-8) IMM GRAN % (test code 0.90 % = 0358845665) LYMPH % (test code = 15.1 % 736-9) MONO % (test code = 3.6 % 5905-5) EOS % (test code = 0.1 % 713-8) BASO % (test code = 0.1 % 706-2) GRAN MAT x10^3(ANC) 10.21 10*3/uL 1.88-7.09 H (test code = 0191752994) IMM GRAN x10^3 (test 0.11 10*3/uL 0.00-0.06 H code = 2229350948) LYMPH x10^3 (test code 1.92 10*3/uL 1.32-3.29 = 731-0) MONO x10^3 (test code 0.46 10*3/uL 0.33-0.92 = 742-7) EOS x10^3 (test code = 0.03-0.39 L 711-2) BASO x10^3 (test code 0.01-0.07 = 704-7) Lab Interpretation Abnormal (test code = 14239-7) [facility] GLUCOSE (AUTOMATED)2023-02-17 01:48:59 Test Item Value Reference Range Interpretation Comments POCT GLU (test code = 4561635483) 206 mg/dL 70-110 H Lab Interpretation (test code = Abnormal 27092-3) [facility] GLUCOSE (AUTOMATED)2023-02-16 21:29:30 Test Item Value Reference Range Interpretation Comments POCT GLU (test code = 2042740608) 178 mg/dL 70-110 H Lab Interpretation (test code = Abnormal 91740-6) [facility] GLUCOSE (AUTOMATED)2023-02-16 16:46:45 Test Item Value Reference Range Interpretation Comments POCT GLU (test code = 9033246677) 122 mg/dL 70-110 H Lab Interpretation (test code = Abnormal 75781-9) [facility] GLUCOSE (AUTOMATED)2023-02-16 14:13:22 Test Item Value Reference Range Interpretation Comments POCT GLU (test code = 9491880213) 105 mg/dL 70-110 Lab Interpretation (test code = Normal 35365-1) [facility] GLUCOSE (AUTOMATED)2023-02-16 12:33:45 Test Item Value Reference Range Interpretation Comments POCT GLU (test code = 0987844894) 112 mg/dL 70-110 H Lab Interpretation (test code = Abnormal 33985-8) [facility] GLUCOSE (AUTOMATED)2023-02-16 06:38:48 Test Item Value Reference Range Interpretation Comments POCT GLU (test code = 9385466644) 307 mg/dL 70-110 H Lab Interpretation (test code = Abnormal 69764-3) [facility] GLUCOSE (AUTOMATED)2023-02-16 03:26:47 Test Item Value Reference Range Interpretation Comments POCT GLU (test code = 2290176325) 345 mg/dL 70-110 H Lab Interpretation (test code = Abnormal 48826-6) [facility] [id number] 22:35:46 Test Item Value Reference Range Interpretation Comments TROPONIN I (test code = 0.097 ng/mL <=0.034 H 6666794867) BRUNO (test code = BRUNO) Reference (Normal) Range (defined by the 99th percentile reference limit): <= 0.034 ng/mL Note: Cardiac troponin begins to rise 3-4 hours after the onset of ischemia. Repeat in 4-6 hours if the sample was drawn within 3-4 hours of the onset of the symptom and found normal. Diagnosis of myocardial injury is made with acute changes in cTn concentrations with at least one serial sample above the 99th percentile upper reference limit (URL), taken together with the patient's clinical presentation. Biotin has been reported to cause a negative bias, interpret results relative to patient's use of biotin. Lab Interpretation Abnormal (test code = 55833-3) [facility] GLUCOSE (AUTOMATED)2023-02-15 21:47:32 Test Item Value Reference Range Interpretation Comments POCT GLU (test code = 9199819035) 359 mg/dL 70-110 H Lab Interpretation (test code = Abnormal 40013-8) [facility] GLUCOSE (AUTOMATED)2023-02-15 17:47:08 Test Item Value Reference Range Interpretation Comments POCT GLU (test code = 0688515336) 284 mg/dL 70-110 H Lab Interpretation (test code = Abnormal 65164-8) [facility] GLUCOSE (AUTOMATED)2023-02-15 14:35:20 Test Item Value Reference Range Interpretation Comments POCT GLU (test code = 3641946114) 153 mg/dL 70-110 H Lab Interpretation (test code = Abnormal 63690-2) [facility] ABG + LACTIC [id number] 14:25:17 Test Item Value Reference Range Interpretation Comments PH (test code = 2) 7.42 7.35-7.45 PCO2 (test code = 58 See_Comment H [Automate d 5313411606) message] The sy stem which generated this result transmitted reference range : 35 - 45 mmHg. The reference range was not used to interpret this result as normal/abnormal . PO2 (test code = 104 See_Comment H [Automated 4130971006) message] The sy stem which generated this result transmitted reference range : 80 - 100 mmHg. The reference range was not used to interpret this result as normal/abnormal . HCO3 (test code = 37 See_Comment H [Automate d 5574826088) message] The sy stem which generated this result transmitted reference range : 22 - 26 mEq/L. The reference range was not used to interpret this result as normal/abnormal . BE (test code = 10.5 See_Comment H [Automated 0651469378) message] The sy stem which generated this result transmitted reference range : -3.0 - 3.0 mEq/ L. The reference r fariba was not used to interpret this result as normal/abnormal . LACTIC ACID (test code 2.59 mmol/L 0.50-2.20 H = 8535007993) Lab Interpretation Abnormal (test code = 94741-0) [facility] GLUCOSE (AUTOMATED)2023-02-15 13:49:33 Test Item Value Reference Range Interpretation Comments POCT GLU (test code = 3415695010) 152 mg/dL 70-110 H Lab Interpretation (test code = Abnormal 11389-6) [facility] GLUCOSE (AUTOMATED)2023-02-15 12:52:53 Test Item Value Reference Range Interpretation Comments POCT GLU (test code = 9545336494) 159 mg/dL 70-110 H Lab Interpretation (test code = Abnormal 77652-1) [facility] GLUCOSE (AUTOMATED)2023-02-15 00:38:23 Test Item Value Reference Range Interpretation Comments POCT GLU (test code = 6393321089) 250 mg/dL 70-110 H Lab Interpretation (test code = Abnormal 84634-0) [facility] GLUCOSE (AUTOMATED)2023-02-14 21:31:13 Test Item Value Reference Range Interpretation Comments POCT GLU (test code = 2757125170) 415 mg/dL 70-110 H Lab Interpretation (test code = Abnormal 50785-9) [facility] GLUCOSE (AUTOMATED)2023-02-14 19:31:25 Test Item Value Reference Range Interpretation Comments POCT GLU (test code = 2785839650) 471 mg/dL 70-110 HH Lab Interpretation (test code = Abnormal 72429-3) [facility] GLUCOSE (AUTOMATED)2023-02-14 16:48:37 Test Item Value Reference Range Interpretation Comments POCT GLU (test code = 0590936134) 470 mg/dL 70-110 HH Lab Interpretation (test code = Abnormal 99526-6) [facility] GLUCOSE (AUTOMATED)2023-02-14 13:36:47 Test Item Value Reference Range Interpretation Comments POCT GLU (test code = 3931979098) 98 mg/dL 70-110 Lab Interpretation (test code = Normal 79239-6) [facility] GLUCOSE (AUTOMATED)2023-02-14 13:24:31 Test Item Value Reference Range Interpretation Comments POCT GLU (test code = 2798276966) 54 mg/dL 70-110 L Lab Interpretation (test code = Abnormal 71455-9) [facility] GLUCOSE (AUTOMATED)2023-02-14 13:08:41 Test Item Value Reference Range Interpretation Comments POCT GLU (test code = 7276312653) 49 mg/dL 70-110 LL Lab Interpretation (test code = Abnormal 33169-4) [facility] GLUCOSE (AUTOMATED)2023-02-14 13:08:41 Test Item Value Reference Range Interpretation Comments POCT GLU (test code = 0635802276) 53 mg/dL 70-110 L Lab Interpretation (test code = Abnormal 49362-1) [facility] GLUCOSE (AUTOMATED)2023-02-14 12:58:05 Test Item Value Reference Range Interpretation Comments POCT GLU (test code = 4359848143) 33 mg/dL 70-110 LL Lab Interpretation (test code = Abnormal 75882-6) [facility] GLUCOSE (AUTOMATED)2023-02-14 02:16:47 Test Item Value Reference Range Interpretation Comments POCT GLU (test code = 2057278971) 139 mg/dL 70-110 H Lab Interpretation (test code = Abnormal 55290-3) [facility] GLUCOSE (AUTOMATED)2023-02-13 22:50:35 Test Item Value Reference Range Interpretation Comments POCT GLU (test code = 1947061262) 284 mg/dL 70-110 H Lab Interpretation (test code = Abnormal 82023-7) [facility] Culture - Peripheral # [id number] 19:01:18 Test Item Value Reference Range Interpretation Comments Blood Culture-Aerobic No organisms No growth Previo us (test code = 56674-4) isolated prelim inary verified result was Culture In Progress on 02/08/2023 at 170 2 CDTPrevious preliminary verified result was No growth a t 24 hours on 02/09/2023 at 140 1 CDTPrevious preliminary verified result was No growth a t 48 hours on 02/10/2023 at 140 2 CDTPrevious preliminary verified result was No growth a t 72 hours on 02/11/2023 at 140 1 CDT Blood No organisms No growth Previous Culture-Anaerobic isolated preliminar y (test code = 84536-8) verifi ed result was Culture In Progress on 02/08/2023 at 170 2 CDTPrevious preliminary verified result was No growth a t 24 hours on 02/09/2023 at 140 1 CDTPrevious preliminary verified result was No growth a t 48 hours on 02/10/2023 at 140 2 CDTPrevious preliminary verified result was No growth a t 72 hours on 02/11/2023 at 140 1 CDT Lab Interpretation Normal (test code = 61241-3) [facility] Culture - Peripheral # [id number] 19:01:18 Test Item Value Reference Range Interpretation Comments Blood Culture-Aerobic No organisms No growth Previo us (test code = 44355-0) isolated prelim inary verified result was Culture In Progress on 02/08/2023 at 170 2 CDTPrevious preliminary verified result was No growth a t 24 hours on 02/09/2023 at 140 1 CDTPrevious preliminary verified result was No growth a t 48 hours on 02/10/2023 at 140 2 CDTPrevious preliminary verified result was No growth a t 72 hours on 02/11/2023 at 140 1 CDT Blood No organisms No growth Previous Culture-Anaerobic isolated preliminar y (test code = 55064-7) verifi ed result was Culture In Progress on 02/08/2023 at 170 2 CDTPrevious preliminary verified result was No growth a t 24 hours on 02/09/2023 at 140 1 CDTPrevious preliminary verified result was No growth a t 48 hours on 02/10/2023 at 140 2 CDTPrevious preliminary verified result was No growth a t 72 hours on 02/11/2023 at 140 1 CDT Lab Interpretation Normal (test code = 31557-3) [facility] GLUCOSE (AUTOMATED)2023-02-13 17:16:47 Test Item Value Reference Range Interpretation Comments POCT GLU (test code = 7025814751) 282 mg/dL 70-110 H Lab Interpretation (test code = Abnormal 12808-8) [facility] GLUCOSE (AUTOMATED)2023-02-13 12:58:50 Test Item Value Reference Range Interpretation Comments POCT GLU (test code = 0237541780) 144 mg/dL 70-110 H Lab Interpretation (test code = Abnormal 61841-1) [facility] GLUCOSE (AUTOMATED)2023-02-13 02:16:05 Test Item Value Reference Range Interpretation Comments POCT GLU (test code = 5018651777) 102 mg/dL 70-110 Lab Interpretation (test code = Normal 41549-5) [facility] GLUCOSE (AUTOMATED)2023-02-12 21:55:38 Test Item Value Reference Range Interpretation Comments POCT GLU (test code = 5839409431) 133 mg/dL 70-110 H Lab Interpretation (test code = Abnormal 46873-7) [facility] GLUCOSE (AUTOMATED)2023-02-12 17:14:39 Test Item Value Reference Range Interpretation Comments POCT GLU (test code = 6232269761) 158 mg/dL 70-110 H Lab Interpretation (test code = Abnormal 36440-9) [facility] GLUCOSE (AUTOMATED)2023-02-12 13:21:24 Test Item Value Reference Range Interpretation Comments POCT GLU (test code = 0531368629) 104 mg/dL 70-110 Lab Interpretation (test code = Normal 89786-4) [facility] GLUCOSE (AUTOMATED)2023-02-12 13:21:24 Test Item Value Reference Range Interpretation Comments POCT GLU (test code = 8878490737) 104 mg/dL 70-110 Lab Interpretation (test code = Normal 81276-1) [facility] GLUCOSE (AUTOMATED)2023-02-12 02:03:03 Test Item Value Reference Range Interpretation Comments POCT GLU (test code = 4628085091) 253 mg/dL 70-110 H Lab Interpretation (test code = Abnormal 87064-3) [facility] GLUCOSE (AUTOMATED)2023-02-11 21:58:55 Test Item Value Reference Range Interpretation Comments POCT GLU (test code = 3845325991) 295 mg/dL 70-110 H Lab Interpretation (test code = Abnormal 24455-7) [facility] [id number] 18:27:20 Test Item Value Reference Range Interpretation Comments SPUTUM CULTURE 1+ Respiratory sofya: (test code = 622-1) Commensal upper respiratory microorganisms only. Gram stain (test Occasional (Rare) code = 664-3) Epithelial cells present BRUNO (test code = Bacterial pathogens BRUNO) associated with lower respiratory infections were not identified, which include Pseudomonas aeruginosa and Staphylococcus aureus (MRSA or MSSA). [facility] [id number] 18:27:20 Test Item Value Reference Range Interpretation Comments SPUTUM CULTURE 1+ Respiratory sofya: (test code = 622-1) Commensal upper respiratory microorganisms only. Gram stain (test Occasional (Rare) code = 664-3) Epithelial cells present BRUNO (test code = Bacterial pathogens BRUNO) associated with lower respiratory infections were not identified, which include Pseudomonas aeruginosa and Staphylococcus aureus (MRSA or MSSA). [facility] GLUCOSE (AUTOMATED)2023-02-11 16:38:03 Test Item Value Reference Range Interpretation Comments POCT GLU (test code = 9941993596) 236 mg/dL 70-110 H Lab Interpretation (test code = Abnormal 99091-2) [facility] GLUCOSE (AUTOMATED)2023-02-11 12:55:46 Test Item Value Reference Range Interpretation Comments POCT GLU (test code = 1257274853) 130 mg/dL 70-110 H Lab Interpretation (test code = Abnormal 54786-1) [facility] GLUCOSE (AUTOMATED)2023-02-11 01:06:56 Test Item Value Reference Range Interpretation Comments POCT GLU (test code = 0743271986) 274 mg/dL 70-110 H Lab Interpretation (test code = Abnormal 35350-1) [facility] GLUCOSE (AUTOMATED)2023-02-10 21:48:49 Test Item Value Reference Range Interpretation Comments POCT GLU (test code = 7374668355) 334 mg/dL 70-110 H Lab Interpretation (test code = Abnormal 91298-9) [facility] GLUCOSE (AUTOMATED)2023-02-10 17:05:03 Test Item Value Reference Range Interpretation Comments POCT GLU (test code = 0995112522) 164 mg/dL 70-110 H Lab Interpretation (test code = Abnormal 06469-0) [facility] GLUCOSE (AUTOMATED)2023-02-10 13:21:43 Test Item Value Reference Range Interpretation Comments POCT GLU (test code = 1170008890) 125 mg/dL 70-110 H Lab Interpretation (test code = Abnormal 64664-5) [facility] GLUCOSE (AUTOMATED)2023-02-10 01:23:56 Test Item Value Reference Range Interpretation Comments POCT GLU (test code = 8127430649) 252 mg/dL 70-110 H Lab Interpretation (test code = Abnormal 12524-2) [facility] GLUCOSE (AUTOMATED)2023-02-09 22:21:32 Test Item Value Reference Range Interpretation Comments POCT GLU (test code = 0263532929) 339 mg/dL 70-110 H Lab Interpretation (test code = Abnormal 70756-6) [facility] GLUCOSE (AUTOMATED)2023-02-09 20:29:58 Test Item Value Reference Range Interpretation Comments POCT GLU (test code = 9360833163) 473 mg/dL 70-110 HH Lab Interpretation (test code = Abnormal 26563-3) [facility] GLUCOSE (AUTOMATED)2023-02-09 18:43:59 Test Item Value Reference Range Interpretation Comments POCT GLU (test code = 7701408735) 546 mg/dL 70-110 HH Lab Interpretation (test code = Abnormal 29742-8) [facility] GLUCOSE (AUTOMATED)2023-02-09 17:18:41 Test Item Value Reference Range Interpretation Comments POCT GLU (test code = 9903706757) 543 mg/dL 70-110 HH Lab Interpretation (test code = Abnormal 67776-1) [facility] GLUCOSE (AUTOMATED)2023-02-09 17:18:36 Test Item Value Reference Range Interpretation Comments POCT GLU (test code = 9779648366) 495 mg/dL 70-110 HH Lab Interpretation (test code = Abnormal 84773-2) [facility] GLUCOSE (AUTOMATED)2023-02-09 13:18:27 Test Item Value Reference Range Interpretation Comments POCT GLU (test code = 3449440170) 247 mg/dL 70-110 H Lab Interpretation (test code = Abnormal 06831-2) [facility] GLUCOSE (AUTOMATED)2023-02-09 02:17:02 Test Item Value Reference Range Interpretation Comments POCT GLU (test code = 2030351716) 218 mg/dL 70-110 H Lab Interpretation (test code = Abnormal 08490-6) [facility] GLUCOSE (AUTOMATED)2023-02-09 01:17:42 Test Item Value Reference Range Interpretation Comments POCT GLU (test code = 4468200670) 248 mg/dL 70-110 H Lab Interpretation (test code = Abnormal 51179-7) [facility] WITH [id number] 17:44:59 Test Item Value Reference Range Interpretation Comments WBC (test code = 13.51 See_Comment H [Automated 3490-2) message] The system which generated this result transmit walt reference range : 4.30 - 11.10 10*3/?L. The reference range was not used to interpret this result as normal/abnormal . RBC (test code = 3.75 See_Comment L [Automated 739-8) message] The system which generated this result transmit walt reference range : 3.93 - 5.25 10*6/?L. The reference range was not used to interpret this result as normal/abnormal . HGB (test code = 11.3 g/dL 11.6-15.0 L 718-7) HCT (test code = 36.8 % 35.7-45.2 4544-3) MCV (test code = 98.1 fL 80.6-95.5 H 787-2) MCH (test code = 30.1 pg 25.9-32.8 785-6) MCHC (test code = 30.7 g/dL 31.6-35.1 L 786-4) RDW-SD (test code = 60.7 fL 39.0-49.9 H 38506-9) RDW-CV (test code = 16.8 % 12.0-15.5 H 788-0) PLT (test code = 196 See_Comment [Automated 777-3) message] The system which generated this result transmit walt reference range : 166 - 358 10*3/ ?L. The reference range was not u sed to interpret th is result as normal/abnormal . MPV (test code = 10.2 fL 9.5-12.9 64983-1) NRBC/100 WBC (test 0.0 See_Comment [Automat ed code = 9512688069) message] The system which generated this result transmit walt reference range : 0.0 - 10.0 /100 WBCs. The reference range was not used to interpret this result as normal/abnormal . NRBC x10^3 (test code See_Comment [Auto mated = 8319654144) message] The system which generated this result transmit walt reference range : 10*3/?L. The reference range was not used to interpret this result as normal/abnormal . GRAN MAT (NEUT) % 80.2 % (test code = 770-8) IMM GRAN % (test code 1.60 % = 3270878407) LYMPH % (test code = 14.4 % 736-9) MONO % (test code = 3.0 % 5905-5) EOS % (test code = 0.6 % 713-8) BASO % (test code = 0.2 % 706-2) GRAN MAT x10^3(ANC) 10.85 10*3/uL 1.88-7.09 H (test code = 2733268549) IMM GRAN x10^3 (test 0.21 10*3/uL 0.00-0.06 H code = 8786525507) LYMPH x10^3 (test code 1.94 10*3/uL 1.32-3.29 = 731-0) MONO x10^3 (test code 0.40 10*3/uL 0.33-0.92 = 742-7) EOS x10^3 (test code = 0.08 10*3/uL 0.03-0.39 711-2) BASO x10^3 (test code 0.03 10*3/uL 0.01-0.07 = 704-7) BASO STIPPLING (test Present A code = 703-9) POLYCHROMASIA (test 2+ See_Comment [Automa walt code = 23349-3) message] The system which generated this result transmit walt reference range : 2+. The referen ce range was not u sed to interpret th is result as normal/abnormal . BANDS (test code = Increased A 0422666478) Lab Interpretation Abnormal (test code = 59598-0) [id number] 16:25:38 Test Item Value Reference Range Interpretation Comments TROPONIN I (test code = 0.047 ng/mL <=0.034 H 8561169146) BRUNO (test code = BRUNO) Reference (Normal) Range (defined by the 99th percentile reference limit): <= 0.034 ng/mL Note: Cardiac troponin begins to rise 3-4 hours after the onset of ischemia. Repeat in 4-6 hours if the sample was drawn within 3-4 hours of the onset of the symptom and found normal. Diagnosis of myocardial injury is made with acute changes in cTn concentrations with at least one serial sample above the 99th percentile upper reference limit (URL), taken together with the patient's clinical presentation. Biotin has been reported to cause a negative bias, interpret results relative to patient's use of biotin. Lab Interpretation Abnormal (test code = 54512-3) [facility] 16:14:54 Test Item Value Reference Range Interpretation Comments MAGNESIUM (test code = 0490892731) 2.5 mg/dL 1.7-2.4 H Lab Interpretation (test code = Abnormal 93362-8) [facility] MET[facility]OLIC [facility] (44335)2023-02-08 16:14:33 Test Item Value Reference Range Interpretation Comments NA (test code = 137 mmol/L 135-145 2708892195) K (test code = 5.2 mmol/L 3.5-5.0 H 0431530135) CL (test code = 96 mmol/L 98-108 L 7962768405) CO2 TOTAL (test code = 34 mmol/L 23-31 H 4923353322) AGAP (test code = 7 2-16 7191275932) BUN (test code = 61 mg/dL 7-23 H 4179899114) GLUCOSE (test code = 80 mg/dL 70-110 6871642583) CREATININE (test code = 1.97 mg/dL 0.50-1.04 H 6670779076) TOTAL BILI (test code = 0.8 mg/dL 0.1-1.8 3567033515) CALCIUM (test code = 9.9 mg/dL 8.6-10.6 9797874079) T PROTEIN (test code = 6.9 g/dL 6.3-8.2 8081638150) ALBUMIN (test code = 3.4 g/dL 3.5-5.0 L 9873999052) ALK PHOS (test code = 79 U/L 34-122 8920998352) ALTv (test code = 31 U/L 5-35 1742-6) AST(SGOT) (test code = 30 U/L 13-40 4239710317) eGFR (test code = 25.0 mL/min/1.73m2 6165587679) BRUNO (test code = BRUNO) Association of Glomerular Filtration Rate (GFR) and Staging of Kidney Disease* + --+ --+ ------+| GFR (mL/min/1.73 m2) ?| With Kidney Damage ?| ?Without Kidney Damage+ --------+ --------+ +| ?>90 ?| ?Stage one ?| ? Normal ?+ ---+ ---+ -------+| ?60-89 ?| ?Stage two ?| ? Decreased GFR ? + --+ --+ ------+| ?30-59 ?| ?Stage three ?| ? Stage three ? + --+ --+ ------+| ?15-29 ?| ?Stage four ? | ? Stage four ?+ ---+ ---+ -------+| ?<15 (or dialysis) ? ?| ?Stage five ? | ? Stage five ?+ ---+ ---+ -------+ *Each stage assumes the associated GFR level has been in effect for at least three months. ?Stages 1 to 5, with or without kidney disease, indicate chronic kidney disease. Notes: Determination of stages one and two (with eGFR >59mL/min/1.73 m2) requires estimation of kidney damage for at least three months as defined by structural or functional abnormalities of the kidney, manifested by either:Pathological abnormalities or Markers of kidney damage (including abnormalities in the composition of the blood or urine or abnormalities in imaging tests). Lab Interpretation Abnormal (test code = 52471-5) [facility]. METABOLIC PANEL (30105)2023-02-08 16:14:33 Test Item Value Reference Range Interpretation Comments NA (test code = 137 mmol/L 135-145 6034554834) K (test code = 5.2 mmol/L 3.5-5.0 H 6769057730) CL (test code = 96 mmol/L 98-108 L 8875966696) CO2 TOTAL (test code = 34 mmol/L 23-31 H 7873205498) AGAP (test code = 7 2-16 4055274008) BUN (test code = 61 mg/dL 7-23 H 4634200278) GLUCOSE (test code = 80 mg/dL 70-110 9479718684) CREATININE (test code = 1.97 mg/dL 0.50-1.04 H 3066496015) TOTAL BILI (test code = 0.8 mg/dL 0.1-1.8 3800952539) CALCIUM (test code = 9.9 mg/dL 8.6-10.6 7000156501) T PROTEIN (test code = 6.9 g/dL 6.3-8.2 1421692660) ALBUMIN (test code = 3.4 g/dL 3.5-5.0 L 1378255592) ALK PHOS (test code = 79 U/L 34-122 5354388392) ALTv (test code = 31 U/L 5-35 1742-6) AST(SGOT) (test code = 30 U/L 13-40 8835413885) eGFR (test code = 25.0 mL/min/1.73m2 4775250217) BRUNO (test code = BRUNO) Association of Glomerular Filtration Rate (GFR) and Staging of Kidney Disease* + --+ --+ ------+| GFR (mL/min/1.73 m2) ?| With Kidney Damage ?| ?Without Kidney Damage+ --------+ --------+ +| ?>90 ?| ?Stage one ?| ? Normal ?+ ---+ ---+ -------+| ?60-89 ?| ?Stage two ?| ? Decreased GFR ? + --+ --+ ------+| ?30-59 ?| ?Stage three ?| ? Stage three ? + --+ --+ ------+| ?15-29 ?| ?Stage four ? | ? Stage four ?+ ---+ ---+ -------+| ?<15 (or dialysis) ? ?| ?Stage five ? | ? Stage five ?+ ---+ ---+ -------+ *Each stage assumes the associated GFR level has been in effect for at least three months. ?Stages 1 to 5, with or without kidney disease, indicate chronic kidney disease. Notes: Determination of stages one and two (with eGFR >59mL/min/1.73 m2) requires estimation of kidney damage for at least three months as defined by structural or functional abnormalities of the kidney, manifested by either:Pathological abnormalities or Markers of kidney damage (including abnormalities in the composition of the blood or urine or abnormalities in imaging tests). Lab Interpretation Abnormal (test code = 23414-3) [facility] [id number] 16:07:51 Test Item Value Reference Range Interpretation Comments NT-proBNP (test code = 395 pg/mL <=125 H 6182608170) BRUNO (test code = BRUNO) Biotin has been reported to cause a negative bias, interpret results relative to patient's use of biotin. Lab Interpretation (test Abnormal code = 70435-2) [facility] [id number] 16:07:51 Test Item Value Reference Range Interpretation Comments NT-proBNP (test code = 395 pg/mL <=125 H 6193555146) BRUNO (test code = BRUNO) Biotin has been reported to cause a negative bias, interpret results relative to patient's use of biotin. Lab Interpretation (test Abnormal code = 06351-9) [facility] GLUCOSE (AUTOMATED)2023-02-05 21:24:48 Test Item Value Reference Range Interpretation Comments POCT GLU (test code = 9659410067) 415 mg/dL 70-110 H Lab Interpretation (test code = Abnormal 46207-1) [facility] GLUCOSE (AUTOMATED)2023-02-05 16:26:58 Test Item Value Reference Range Interpretation Comments POCT GLU (test code = 4465935232) 260 mg/dL 70-110 H Lab Interpretation (test code = Abnormal 52486-0) [facility] GLUCOSE (AUTOMATED)2023-02-05 12:56:59 Test Item Value Reference Range Interpretation Comments POCT GLU (test code = 7686542083) 133 mg/dL 70-110 H Lab Interpretation (test code = Abnormal 80447-2) [facility] GLUCOSE (AUTOMATED)2023-02-05 03:52:05 Test Item Value Reference Range Interpretation Comments POCT GLU (test code = 8334163259) 230 mg/dL 70-110 H Lab Interpretation (test code = Abnormal 05581-7) [facility] GLUCOSE (AUTOMATED)2023-02-04 23:53:32 Test Item Value Reference Range Interpretation Comments POCT GLU (test code = 7823124089) 449 mg/dL 70-110 H Lab Interpretation (test code = Abnormal 38471-3) [facility] GLUCOSE (AUTOMATED)2023-02-04 21:14:53 Test Item Value Reference Range Interpretation Comments POCT GLU (test code = 5020132022) 326 mg/dL 70-110 H Lab Interpretation (test code = Abnormal 83954-0) [facility] GLUCOSE (AUTOMATED)2023-02-04 16:19:51 Test Item Value Reference Range Interpretation Comments POCT GLU (test code = 5077131345) 270 mg/dL 70-110 H Lab Interpretation (test code = Abnormal 47728-8) [facility] 12:44:00 Test Item Value Reference Range Interpretation Comments POCT GLU (test code = 3227215249) 99 mg/dL 70-110 Lab Interpretation (test code = Normal 56086-6) [facility] GLUCOSE (AUTOMATED)2023-02-04 01:53:16 Test Item Value Reference Range Interpretation Comments POCT GLU (test code = 3006080777) 211 mg/dL 70-110 H Lab Interpretation (test code = Abnormal 41327-2) [facility] GLUCOSE (AUTOMATED)2023-02-03 21:49:56 Test Item Value Reference Range Interpretation Comments POCT GLU (test code = 3209774185) 300 mg/dL 70-110 H Lab Interpretation (test code = Abnormal 01181-5) [facility] GLUCOSE (AUTOMATED)2023-02-03 16:38:38 Test Item Value Reference Range Interpretation Comments POCT GLU (test code = 3371091419) 205 mg/dL 70-110 H Lab Interpretation (test code = Abnormal 88258-0) [facility] GLUCOSE (AUTOMATED)2023-02-03 12:34:11 Test Item Value Reference Range Interpretation Comments POCT GLU (test code = 3062815950) 73 mg/dL 70-110 Lab Interpretation (test code = Normal 26248-0) [facility] GLUCOSE (AUTOMATED)2023-02-03 01:34:26 Test Item Value Reference Range Interpretation Comments POCT GLU (test code = 9622318694) 184 mg/dL 70-110 H Lab Interpretation (test code = Abnormal 67141-5) [facility] GLUCOSE (AUTOMATED)2023-02-02 21:37:34 Test Item Value Reference Range Interpretation Comments POCT GLU (test code = 8415225693) 220 mg/dL 70-110 H Lab Interpretation (test code = Abnormal 78122-4) [facility] GLUCOSE (AUTOMATED)2023-02-02 16:55:07 Test Item Value Reference Range Interpretation Comments POCT GLU (test code = 3971282929) 214 mg/dL 70-110 H Lab Interpretation (test code = Abnormal 89124-2) [facility] [id number] 13:45:22 Test Item Value Reference Range Interpretation Comments SPUTUM CULTURE 1+ Respiratory sofya: (test code = 622-1) Commensal upper respiratory microorganisms only. Gram stain (test Few Mononuclear cells code = 664-3) RBUNO (test code = Bacterial pathogens BRUNO) associated with lower respiratory infections were not identified, which include Pseudomonas aeruginosa and Staphylococcus aureus (MRSA or MSSA). [facility] GLUCOSE (AUTOMATED)2023-02-02 12:44:05 Test Item Value Reference Range Interpretation Comments POCT GLU (test code = 7216251986) 118 mg/dL 70-110 H Lab Interpretation (test code = Abnormal 04152-0) [facility] GLUCOSE (AUTOMATED)2023-02-02 10:35:20 Test Item Value Reference Range Interpretation Comments POCT GLU (test code = 9545148308) 73 mg/dL 70-110 Lab Interpretation (test code = Normal 15280-0) [facility] GLUCOSE (AUTOMATED)2023-02-02 06:50:13 Test Item Value Reference Range Interpretation Comments POCT GLU (test code = 4522001780) 83 mg/dL 70-110 Lab Interpretation (test code = Normal 06545-6) [facility] GLUCOSE (AUTOMATED)2023-02-02 05:36:44 Test Item Value Reference Range Interpretation Comments POCT GLU (test code = 6254581171) 45 mg/dL 70-110 LL Lab Interpretation (test code = Abnormal 97488-1) [facility] GLUCOSE (AUTOMATED)2023-02-02 01:16:54 Test Item Value Reference Range Interpretation Comments POCT GLU (test code = 9997654957) 246 mg/dL 70-110 H Lab Interpretation (test code = Abnormal 62713-8) [facility] [facility] GLUCOSE (AUTOMATED)2023-02-01 21:37:10 Test Item Value Reference Range Interpretation Comments POCT GLU (test code = 1442020034) 302 mg/dL 70-110 H Lab Interpretation (test code = Abnormal 09042-9) [facility] GLUCOSE (AUTOMATED)2023-02-01 16:24:31 Test Item Value Reference Range Interpretation Comments POCT GLU (test code = 9430632741) 147 mg/dL 70-110 H Lab Interpretation (test code = Abnormal 26523-6) [facility]-REACTIVE [id number] 15:58:21 Test Item Value Reference Range Interpretation Comments CRP (test code = 1296048130) 6.6 mg/dL <=1.0 H Lab Interpretation (test code = Abnormal 35114-3) [facility]-REACTIVE [id number] 15:58:21 Test Item Value Reference Range Interpretation Comments CRP (test code = 5345459199) 6.6 mg/dL <=1.0 H Lab Interpretation (test code = Abnormal 79266-1) [facility] 12:44:44 Test Item Value Reference Range Interpretation Comments POCT GLU (test code = 1375255403) 146 mg/dL 70-110 H Lab Interpretation (test code = Abnormal 42806-4) [facility] [id number] 10:17:56 Test Item Value Reference Range Interpretation Comments TROPONIN I (test code = 0.017 ng/mL <=0.034 7852591549) BRUNO (test code = BRUNO) Reference (Normal) Range (defined by the 99th percentile reference limit): <= 0.034 ng/mL Note: Cardiac troponin begins to rise 3-4 hours after the onset of ischemia. Repeat in 4-6 hours if the sample was drawn within 3-4 hours of the onset of the symptom and found normal. Diagnosis of myocardial injury is made with acute changes in cTn concentrations with at least one serial sample above the 99th percentile upper reference limit (URL), taken together with the patient's clinical presentation. Biotin has been reported to cause a negative bias, interpret results relative to patient's use of biotin. Lab Interpretation Normal (test code = 52676-6) [facility] METABOLIC PANEL (NA, K, CL, CO2, GLUCOSE, BUN, CREATININE, CA)2023-02-01 10:09:16 Test Item Value Reference Range Interpretation Comments NA (test code = 138 mmol/L 135-145 2833750701) K (test code = 4.5 mmol/L 3.5-5.0 0828814565) CL (test code = 99 mmol/L 98-108 6650664904) CO2 TOTAL (test code = 37 mmol/L 23-31 H 7949443032) AGAP (test code = 2 2-16 3895302202) BUN (test code = 48 mg/dL 7-23 H 6790441906) GLUCOSE (test code = 162 mg/dL 70-110 H 5015355130) CREATININE (test code = 1.63 mg/dL 0.50-1.04 H 6066426259) CALCIUM (test code = 8.6 mg/dL 8.6-10.6 4031163154) eGFR (test code = 31.1 mL/min/1.73m2 3580738638) BRUNO (test code = BRUNO) Association of Glomerular Filtration Rate (GFR) and Staging of Kidney Disease* + --+ --+ ------+| GFR (mL/min/1.73 m2) ?| With Kidney Damage ?| ?Without Kidney Damage+ --------+ --------+ +| ?>90 ?| ?Stage one ?| ? Normal ?+ ---+ ---+ -------+| ?60-89 ?| ?Stage two ?| ? Decreased GFR ? + --+ --+ ------+| ?30-59 ?| ?Stage three ?| ? Stage three ? + --+ --+ ------+| ?15-29 ?| ?Stage four ? | ? Stage four ?+ ---+ ---+ -------+| ?<15 (or dialysis) ? ?| ?Stage five ? | ? Stage five ?+ ---+ ---+ -------+ *Each stage assumes the associated GFR level has been in effect for at least three months. ?Stages 1 to 5, with or without kidney disease, indicate chronic kidney disease. Notes: Determination of stages one and two (with eGFR >59mL/min/1.73 m2) requires estimation of kidney damage for at least three months as defined by structural or functional abnormalities of the kidney, manifested by either:Pathological abnormalities or Markers of kidney damage (including abnormalities in the composition of the blood or urine or abnormalities in imaging tests). Lab Interpretation Abnormal (test code = 04610-2) [facility] 10:09:16 Test Item Value Reference Range Interpretation Comments MAGNESIUM (test code = 1786983575) 2.3 mg/dL 1.7-2.4 Lab Interpretation (test code = Normal 63127-4) [facility] WITH [id number] 09:50:36 Test Item Value Reference Range Interpretation Comments WBC (test code = 9.01 See_Comment [Automated 2290-2) message] The sy stem which generated this result transmitted reference range : 4.30 - 11.10 10*3/?L. The reference range was not used to interpret this result as normal/abnormal . RBC (test code = 3.18 See_Comment L [Automated 789-8) message] The sy stem which generated this result transmitted reference range : 3.93 - 5.25 10*6/?L. The reference range was not used to interpret this result as normal/abnormal . HGB (test code = 9.8 g/dL 11.6-15.0 L 718-7) HCT (test code = 31.1 % 35.7-45.2 L 4544-3) MCV (test code = 97.8 fL 80.6-95.5 H 787-2) MCH (test code = 30.8 pg 25.9-32.8 785-6) MCHC (test code = 31.5 g/dL 31.6-35.1 L 786-4) RDW-SD (test code = 58.8 fL 39.0-49.9 H 54603-7) RDW-CV (test code = 16.1 % 12.0-15.5 H 788-0) PLT (test code = 243 See_Comment [Automated 777-3) message] The sy stem which generated this result transmitted reference range : 166 - 358 10*3/ ?L. The reference r fariba was not used to interpret this result as normal/abnormal . MPV (test code = 10.2 fL 9.5-12.9 17305-8) NRBC/100 WBC (test 0.0 See_Comment [Automat ed code = 0176950057) message] The system which generated this result transmitted reference range : 0.0 - 10.0 /100 WBCs. The refer ence range was not u sed to interpret th is result as normal/abnormal . NRBC x10^3 (test code See_Comment [Auto mated = 1708243140) message] The s ystem which generated this result transmitted reference range : 10*3/?L. The reference range was not used to interpret this result as normal/abnormal . GRAN MAT (NEUT) % 67.2 % (test code = 770-8) IMM GRAN % (test code 1.60 % = 2503306119) LYMPH % (test code = 25.1 % 736-9) MONO % (test code = 5.8 % 5905-5) EOS % (test code = 0.2 % 713-8) BASO % (test code = 0.1 % 706-2) GRAN MAT x10^3(ANC) 6.06 10*3/uL 1.88-7.09 (test code = 6647417438) IMM GRAN x10^3 (test 0.14 10*3/uL 0.00-0.06 H code = 8776662155) LYMPH x10^3 (test code 2.26 10*3/uL 1.32-3.29 = 731-0) MONO x10^3 (test code 0.52 10*3/uL 0.33-0.92 = 742-7) EOS x10^3 (test code = 0.03-0.39 L 711-2) BASO x10^3 (test code 0.01-0.07 = 704-7) Lab Interpretation Abnormal (test code = 50919-2) [facility] GLUCOSE (AUTOMATED)2023-02-01 05:24:29 Test Item Value Reference Range Interpretation Comments POCT GLU (test code = 0043710942) 232 mg/dL 70-110 H Lab Interpretation (test code = Abnormal 65248-9) [facility] GLUCOSE (AUTOMATED)2023-02-01 02:03:51 Test Item Value Reference Range Interpretation Comments POCT GLU (test code = 3735651474) 335 mg/dL 70-110 H Lab Interpretation (test code = Abnormal 13280-6) [facility] GLUCOSE (AUTOMATED)2023-01-31 21:19:30 Test Item Value Reference Range Interpretation Comments POCT GLU (test code = 5157074383) 352 mg/dL 70-110 H Lab Interpretation (test code = Abnormal 76939-9) [facility] GLUCOSE (AUTOMATED)2023-01-31 16:37:13 Test Item Value Reference Range Interpretation Comments POCT GLU (test code = 5410465983) 223 mg/dL 70-110 H Lab Interpretation (test code = Abnormal 16505-5) [facility] GLUCOSE (AUTOMATED)2023-01-31 12:47:40 Test Item Value Reference Range Interpretation Comments POCT GLU (test code = 4237294067) 157 mg/dL 70-110 H Lab Interpretation (test code = Abnormal 74732-4) [facility] [id number] 09:00:43 Test Item Value Reference Range Interpretation Comments SPUTUM CULTURE (test Specimen cellular code = 622-1) elements do not represent lower respiratory tract. Specimen rejected for routine bacterial culture. Suggest reorder and recollection. Gram stain (test code Numerous Epithelial = 664-3) cells [facility] GLUCOSE (AUTOMATED)2023-01-31 01:53:38 Test Item Value Reference Range Interpretation Comments POCT GLU (test code = 9667002700) 142 mg/dL 70-110 H Lab Interpretation (test code = Abnormal 85992-4) [facility] GLUCOSE (AUTOMATED)2023-01-30 21:20:52 Test Item Value Reference Range Interpretation Comments POCT GLU (test code = 6817885467) 355 mg/dL 70-110 H Lab Interpretation (test code = Abnormal 36461-5) [facility]ball[facility] [id number] 19:37:32 Test Item Value Reference Range Interpretation Comments TROPONIN I (test code = 0.035 ng/mL <=0.034 H 6312611581) BRUNO (test code = BRUNO) Reference (Normal) Range (defined by the 99th percentile reference limit): <= 0.034 ng/mL Note: Cardiac troponin begins to rise 3-4 hours after the onset of ischemia. Repeat in 4-6 hours if the sample was drawn within 3-4 hours of the onset of the symptom and found normal. Diagnosis of myocardial injury is made with acute changes in cTn concentrations with at least one serial sample above the 99th percentile upper reference limit (URL), taken together with the patient's clinical presentation. Biotin has been reported to cause a negative bias, interpret results relative to patient's use of biotin. Lab Interpretation Abnormal (test code = 45286-5) [facility]inal [id number] 19:33:51 Test Item Value Reference Range Interpretation Comments NT-proBNP (test code = 315 pg/mL <=125 H 0404074920) BRUNO (test code = BRUNO) Biotin has been reported to cause a negative bias, interpret results relative to patient's use of biotin. Lab Interpretation (test Abnormal code = 14736-1) [facility]ballaPTT2023-03-27 19:31:59 Test Item Value Reference Range Interpretation Comments APTT Patient (test 21 See_Comment L [Automat ed code = 3173-2) message] The system which generated this result transmitted reference range : 23 - 38 Seconds . The reference range was not used to interpr et this result as normal/abnormal . BRUNO (test code = BRUNO) The [facility] patient population mean normal value for aPTT is 30 seconds. Lab Interpretation Abnormal (test code = 86574-2) [facility]2023-03-27 19:31:59 Test Item Value Reference Range Interpretation Comments APTT Patient (test 21 See_Comment L [Automat ed code = 3173-2) message] The system which generated this result transmitted reference range : 23 - 38 Seconds . The reference range was not used to interpr et this result as normal/abnormal . BRUNO (test code = BRUNO) The [facility] patient population mean normal value for aPTT is 30 seconds. Lab Interpretation Abnormal (test code = 90580-3) [facility]ballProthrombin Time / [id number] 19:30:07 Test Item Value Reference Range Interpretation Comments PROTIME PATIENT (test 12.5 See_Comment [Auto mated message] code = 5964-2) The system wh ich generated this result transmitted ref erence range: 12.0 - 1 4.7 Seconds. The re ference range was not u sed to interpret this result as normal/abnor mal. INR (test code = 6301-6) 1.0 Nor mal INR <1.1; Warfarin Therap eutic range 2.0 to 3. 0 or 2.5 to 3.5, dep ending upon the indica tions. Lab Interpretation (test Normal code = 22506-5) [facility] Metabolic [facility] (NA, K, CL, CO2, Glucose, BUN, Creatinine, CA)2023-01-30 19:25:51 Test Item Value Reference Range Interpretation Comments NA (test code = 135 mmol/L 135-145 3123292480) K (test code = 5.6 mmol/L 3.5-5.0 H 8805762973) CL (test code = 95 mmol/L 98-108 L 7605458302) CO2 TOTAL (test code = 35 mmol/L 23-31 H 9472754555) AGAP (test code = 5 2-16 2309586029) BUN (test code = 48 mg/dL 7-23 H 8602759573) GLUCOSE (test code = 342 mg/dL 70-110 H 0867458609) CREATININE (test code = 1.69 mg/dL 0.50-1.04 H 7805039246) CALCIUM (test code = 8.7 mg/dL 8.6-10.6 1954613186) eGFR (test code = 29.8 mL/min/1.73m2 5350146067) BRUNO (test code = BRUNO) Association of Glomerular Filtration Rate (GFR) and Staging of Kidney Disease* + --+ --+ ------+| GFR (mL/min/1.73 m2) ?| With Kidney Damage ?| ?Without Kidney Damage+ --------+ --------+ +| ?>90 ?| ?Stage one ?| ? Normal ?+ ---+ ---+ -------+| ?60-89 ?| ?Stage two ?| ? Decreased GFR ? + --+ --+ ------+| ?30-59 ?| ?Stage three ?| ? Stage three ? + --+ --+ ------+| ?15-29 ?| ?Stage four ? | ? Stage four ?+ ---+ ---+ -------+| ?<15 (or dialysis) ? ?| ?Stage five ? | ? Stage five ?+ ---+ ---+ -------+ *Each stage assumes the associated GFR level has been in effect for at least three months. ?Stages 1 to 5, with or without kidney disease, indicate chronic kidney disease. Notes: Determination of stages one and two (with eGFR >59mL/min/1.73 m2) requires estimation of kidney damage for at least three months as defined by structural or functional abnormalities of the kidney, manifested by either:Pathological abnormalities or Markers of kidney damage (including abnormalities in the composition of the blood or urine or abnormalities in imaging tests). Lab Interpretation Abnormal (test code = 26230-0) [facility]ballMagnesium [id number] 19:25:51 Test Item Value Reference Range Interpretation Comments MAGNESIUM (test code = 3724427256) 2.1 mg/dL 1.7-2.4 Lab Interpretation (test code = Normal 38455-4) [facility]ball[facility]atic Function Panel (ALB, T.PRO, BILI T, BU/BC, ALT, AST, ALK, PHOS)2023-01-30 19:25:51 Test Item Value Reference Range Interpretation Comments TOTAL BILI (test code = 6225074316) 0.6 mg/dL 0.1-1.1 BILI UNCON (test code = 2026546069) 0.3 mg/dL 0.1-1.1 BILI CONJ (test code = 9405035694) 0.0 mg/dL 0.0-0.3 T PROTEIN (test code = 4824308755) 6.7 g/dL 6.3-8.2 ALBUMIN (test code = 2296245214) 3.2 g/dL 3.5-5.0 L ALK PHOS (test code = 4161976495) 72 U/L 34-122 ALTv (test code = 1742-6) 30 U/L 5-35 AST(SGOT) (test code = 6380136679) 22 U/L 13-40 Lab Interpretation (test code = Abnormal 96815-2) [facility] (ALB, T.PRO, BILI T, BU/BC, ALT, AST, ALK, PHOS)2023-01-30 19:25:51 Test Item Value Reference Range Interpretation Comments TOTAL BILI (test code = 2271265343) 0.6 mg/dL 0.1-1.1 BILI UNCON (test code = 0581078564) 0.3 mg/dL 0.1-1.1 BILI CONJ (test code = 8328121326) 0.0 mg/dL 0.0-0.3 T PROTEIN (test code = 6808002388) 6.7 g/dL 6.3-8.2 ALBUMIN (test code = 6730158763) 3.2 g/dL 3.5-5.0 L ALK PHOS (test code = 7990183890) 72 U/L 34-122 ALTv (test code = 1742-6) 30 U/L 5-35 AST(SGOT) (test code = 7908153141) 22 U/L 13-40 Lab Interpretation (test code = Abnormal 05435-6) [facility]ballCB with [id number] 19:24:08 Test Item Value Reference Range Interpretation Comments WBC (test code = 10.94 See_Comment [Automated 6690-2) message] The sy stem which generated this result transmitted reference range : 4.30 - 11.10 10*3/?L. The reference range was not used to interpret this result as normal/abnormal . RBC (test code = 3.72 See_Comment L [Automated 789-8) message] The sy stem which generated this result transmitted reference range : 3.93 - 5.25 10*6/?L. The reference range was not used to interpret this result as normal/abnormal . HGB (test code = 11.5 g/dL 11.6-15.0 L 718-7) HCT (test code = 37.4 % 35.7-45.2 4544-3) MCV (test code = 100.5 fL 80.6-95.5 H 787-2) MCH (test code = 30.9 pg 25.9-32.8 785-6) MCHC (test code = 30.7 g/dL 31.6-35.1 L 786-4) RDW-SD (test code = 63.1 fL 39.0-49.9 H 78102-4) RDW-CV (test code = 17.2 % 12.0-15.5 H 788-0) PLT (test code = 263 See_Comment [Automated 777-3) message] The sy stem which generated this result transmitted reference range : 166 - 358 10*3/ ?L. The reference r fariba was not used to interpret this result as normal/abnormal . MPV (test code = 10.4 fL 9.5-12.9 33457-5) NRBC/100 WBC (test 0.0 See_Comment [Automat ed code = 3341559378) message] The system which generated this result transmitted reference range : 0.0 - 10.0 /100 WBCs. The refer ence range was not u sed to interpret th is result as normal/abnormal . NRBC x10^3 (test code See_Comment [Auto mated = 0222404335) message] The s ystem which generated this result transmitted reference range : 10*3/?L. The reference range was not used to interpret this result as normal/abnormal . GRAN MAT (NEUT) % 74.1 % (test code = 770-8) IMM GRAN % (test code 1.40 % = 1626226429) LYMPH % (test code = 18.1 % 736-9) MONO % (test code = 4.3 % 5905-5) EOS % (test code = 1.7 % 713-8) BASO % (test code = 0.4 % 706-2) GRAN MAT x10^3(ANC) 8.11 10*3/uL 1.88-7.09 H (test code = 0570352867) IMM GRAN x10^3 (test 0.15 10*3/uL 0.00-0.06 H code = 5654999935) LYMPH x10^3 (test code 1.98 10*3/uL 1.32-3.29 = 731-0) MONO x10^3 (test code 0.47 10*3/uL 0.33-0.92 = 742-7) EOS x10^3 (test code = 0.19 10*3/uL 0.03-0.39 711-2) BASO x10^3 (test code 0.04 10*3/uL 0.01-0.07 = 704-7) Lab Interpretation Abnormal (test code = 46971-3) [facility] GLUCOSE (AUTOMATED)2023-01-24 17:09:00 Test Item Value Reference Range Interpretation Comments POCT GLU (test code = 9715199726) 280 mg/dL 70-110 H Lab Interpretation (test code = Abnormal 56169-2) [facility] GLUCOSE (AUTOMATED)2023-01-24 13:17:42 Test Item Value Reference Range Interpretation Comments POCT GLU (test code = 9718498616) 155 mg/dL 70-110 H Lab Interpretation (test code = Abnormal 29802-3) [facility] GLUCOSE (AUTOMATED)2023-01-24 12:34:03 Test Item Value Reference Range Interpretation Comments POCT GLU (test code = 6060430646) 184 mg/dL 70-110 H Lab Interpretation (test code = Abnormal 03097-1) [facility]MINAL [id number] 10:33:20 Test Item Value Reference Range Interpretation Comments NT-proBNP (test code = 364 pg/mL <=125 H 7227484562) BRUNO (test code = BRUNO) Biotin has been reported to cause a negative bias, interpret results relative to patient's use of biotin. Lab Interpretation (test Abnormal code = 14008-8) [facility] METABOLIC PANEL (NA, K, CL, CO2, GLUCOSE, BUN, CREATININE, CA)2023-01-24 10:28:22 Test Item Value Reference Range Interpretation Comments NA (test code = 134 mmol/L 135-145 L 7107671752) K (test code = 4.3 mmol/L 3.5-5.0 7056728846) CL (test code = 91 mmol/L 98-108 L 8963895024) CO2 TOTAL (test code = 38 mmol/L 23-31 H 1067724330) AGAP (test code = 5 2-16 2302167463) BUN (test code = 42 mg/dL 7-23 H 9141972858) GLUCOSE (test code = 241 mg/dL 70-110 H 0599546248) CREATININE (test code = 1.82 mg/dL 0.50-1.04 H 4496092191) CALCIUM (test code = 8.5 mg/dL 8.6-10.6 L 5160418652) eGFR (test code = 27.4 mL/min/1.73m2 0247914739) BRUNO (test code = BRUNO) Association of Glomerular Filtration Rate (GFR) and Staging of Kidney Disease* + --+ --+ ------+| GFR (mL/min/1.73 m2) ?| With Kidney Damage ?| ?Without Kidney Damage+ --------+ --------+ +| ?>90 ?| ?Stage one ?| ? Normal ?+ ---+ ---+ -------+| ?60-89 ?| ?Stage two ?| ? Decreased GFR ? + --+ --+ ------+| ?30-59 ?| ?Stage three ?| ? Stage three ? + --+ --+ ------+| ?15-29 ?| ?Stage four ? | ? Stage four ?+ ---+ ---+ -------+| ?<15 (or dialysis) ? ?| ?Stage five ? | ? Stage five ?+ ---+ ---+ -------+ *Each stage assumes the associated GFR level has been in effect for at least three months. ?Stages 1 to 5, with or without kidney disease, indicate chronic kidney disease. Notes: Determination of stages one and two (with eGFR >59mL/min/1.73 m2) requires estimation of kidney damage for at least three months as defined by structural or functional abnormalities of the kidney, manifested by either:Pathological abnormalities or Markers of kidney damage (including abnormalities in the composition of the blood or urine or abnormalities in imaging tests). Lab Interpretation Abnormal (test code = 92953-1) [facility] WITH [id number] 10:07:38 Test Item Value Reference Range Interpretation Comments WBC (test code = 9.73 See_Comment [Automated 6690-2) message] The sy stem which generated this result transmitted reference range : 4.30 - 11.10 10*3/?L. The reference range was not used to interpret this result as normal/abnormal . RBC (test code = 3.66 See_Comment L [Automated 789-8) message] The sy stem which generated this result transmitted reference range : 3.93 - 5.25 10*6/?L. The reference range was not used to interpret this result as normal/abnormal . HGB (test code = 11.1 g/dL 11.6-15.0 L 718-7) HCT (test code = 34.7 % 35.7-45.2 L 4544-3) MCV (test code = 94.8 fL 80.6-95.5 787-2) MCH (test code = 30.3 pg 25.9-32.8 785-6) MCHC (test code = 32.0 g/dL 31.6-35.1 786-4) RDW-SD (test code = 58.3 fL 39.0-49.9 H 65873-2) RDW-CV (test code = 16.7 % 12.0-15.5 H 788-0) PLT (test code = 189 See_Comment [Automated 777-3) message] The sy stem which generated this result transmitted reference range : 166 - 358 10*3/ ?L. The reference r fariba was not used to interpret this result as normal/abnormal . MPV (test code = 9.8 fL 9.5-12.9 74141-8) NRBC/100 WBC (test 0.0 See_Comment [Automat ed code = 2982112946) message] The system which generated this result transmitted reference range : 0.0 - 10.0 /100 WBCs. The refer ence range was not u sed to interpret th is result as normal/abnormal . NRBC x10^3 (test code See_Comment [Auto mated = 1868545960) message] The s ystem which generated this result transmitted reference range : 10*3/?L. The reference range was not used to interpret this result as normal/abnormal . GRAN MAT (NEUT) % 72.1 % (test code = 770-8) IMM GRAN % (test code 0.70 % = 9074500383) LYMPH % (test code = 21.0 % 736-9) MONO % (test code = 6.1 % 5905-5) EOS % (test code = 0.0 % 713-8) BASO % (test code = 0.1 % 706-2) GRAN MAT x10^3(ANC) 7.02 10*3/uL 1.88-7.09 (test code = 4223097018) IMM GRAN x10^3 (test 0.07 10*3/uL 0.00-0.06 H code = 7692075019) LYMPH x10^3 (test code 2.04 10*3/uL 1.32-3.29 = 731-0) MONO x10^3 (test code 0.59 10*3/uL 0.33-0.92 = 742-7) EOS x10^3 (test code = 0.03-0.39 L 711-2) BASO x10^3 (test code 0.01-0.07 = 704-7) Lab Interpretation Abnormal (test code = 52535-2) [facility] GLUCOSE (AUTOMATED)2023-01-24 01:33:08 Test Item Value Reference Range Interpretation Comments POCT GLU (test code = 1298939309) 266 mg/dL 70-110 H Lab Interpretation (test code = Abnormal 66404-5) [facility] GLUCOSE (AUTOMATED)2023-01-23 21:47:58 Test Item Value Reference Range Interpretation Comments POCT GLU (test code = 1846394070) 341 mg/dL 70-110 H Lab Interpretation (test code = Abnormal 70479-1) [facility] GLUCOSE (AUTOMATED)2023-01-23 16:06:12 Test Item Value Reference Range Interpretation Comments POCT GLU (test code = 5641785153) 298 mg/dL 70-110 H Lab Interpretation (test code = Abnormal 41533-2) [facility] GLUCOSE (AUTOMATED)2023-01-23 13:02:12 Test Item Value Reference Range Interpretation Comments POCT GLU (test code = 8351883951) 201 mg/dL 70-110 H Lab Interpretation (test code = Abnormal 02205-0) [facility] GLUCOSE (AUTOMATED)2023-01-23 00:54:53 Test Item Value Reference Range Interpretation Comments POCT GLU (test code = 1656678458) 185 mg/dL 70-110 H Lab Interpretation (test code = Abnormal 73132-1) [facility] GLUCOSE (AUTOMATED)2023-01-22 21:49:44 Test Item Value Reference Range Interpretation Comments POCT GLU (test code = 4866777622) 234 mg/dL 70-110 H Lab Interpretation (test code = Abnormal 74778-7) [facility]ball[facility]an[facility]hor[facility] ([facility]E)2023-01-22 19:15:46 Test Item Value Reference Range Interpretation Comments Height (test code = 66 in 0763417539) Weight (test code = 212 lbs 3346350135) Systolic BP (test code 159 mmHg = 3588208359) Diastolic BP (test 89 mmHg code = 4454883920) Heart Rate (test code 87 bpm = 7926261691) BSA (test code = 2.05 m2 2755211620) LVOT diameter (test 2.01 cm code = 8366634066) LVOT area (test code = 3.20 cm2 5365020676) Ao root diam (test 3.00 cm code = 6681781240) Aortic root (test code 3.0 cm = 9439683244) Ao root annulus (test 3.0 cm code = 0156456039) LA size (test code = 3.9 cm 6792118100) ACS (test code = 1.64 cm 8484889515) TR Peak Ashutosh (test code 272.7 cm/s = 7471803513) Triscuspid Valve 29.7 mmHg Regurgitation Peak Gradient (test code = 2923083908) PV PEAK VELOCITY (test 79.7 cm/s code = 8656817708) PV peak gradient (test 2.5 mmHg code = 0470737274) MV E-F slope (test 34.70 cm/s code = 0322104200) MV Peak E Ashutosh (test 68.7 cm/s code = 4628075920) MV Peak A Ashutosh (test 91.7 cm/s code = 4380168122) E/A ratio (test code = 0.75 ratio 3937300286) MV valve area p 1/2 7.00 cm2 method (test code = 5972821466) MV dec slope (test 637.90 cm/s2 code = 7415821230) MV P1/2t max ashutosh (test 68.10 cm/s code = 2317672099) LVOT stroke volume 72.50 cm3 (test code = 4394125381) LVOT peak ashutosh (test 89.1 cm/s code = 2625771616) LVOT mn grad (test 1.4 mmHg code = 0958632339) AV LVOT peak gradient 3.2 mmHg (test code = 1462255378) LVOT peak VTI (test 22.8 cm code = 6809687957) LV V1 mean (test code 53.90 cm/s = 7732504562) Aortic valve mean 98.1 cm/s velocity (test code = 2522351208) Ao peak ashutosh (test code 168.4 cm/s = 3181798681) Ao VTI (test code = 32.8 cm 1583859937) AV area by cont VTI 2.2 cm2 (test code = 6957714208) AV area peak ashutosh (test 1.7 cm2 code = 2521717092) Ao max PG (test code = 11.30 mm[Hg] 0603631300) AV peak gradient (test 11.3 mmHg code = 6827212213) AV valve area (test 2.21 cm2 code = 2589586181) AV mean gradient (test 4.8 mmHg code = 1610398523) MR max PG (test code = 16.90 mm[Hg] 6308183207) MR max ashutosh (test code 205.30 cm/s = 1567120998) Mr max ashutosh (test code 205.3 m/s = 7024185011) Radiology Study observation (narrative) (test code = 94637-5) BRUNO (test code = BRUNO) ?Left?Ventricle: Left ventricle size is normal. Mildly increased wall thickness. Normal wall motion. Normal wall motion. Normal systolic function with a visually estimated EF of 55 - 60%. Abnormal left ventricle diastolic function. Normal left ventricular filling pressure. ?Tricuspid?Valve: Trace transvalvular regurgitation. Right ventricular systolic pressure is 25-30 mmHg. IVC not well seen. ?IVC/SVC: IVC not well seen. ?Aorta: Borderline enlarged ascending aorta 3.17cm. Left VentricleLeft ventricle size is normal. Mildly increased wall thickness. Normal wall motion. Normal systolic function with a visually estimated EF of 55 - 60%. Abnormal left ventricle diastolic function. Normal left ventricular filling pressure.Right VentricleNormal systolic function.Left AtriumLeft atrium size is normal.Right AtriumRight atrium size is normal.IVC/SVCIVC not well seen.Mitral ValveMitral valve structure is normal. Mild mitral annular calcification. Trace transvalvular regurgitation.Tricuspid ValveTricuspid valve structure is grossly normal. Trace transvalvular regurgitation. Right ventricular systolic pressure is 25-30 mmHg. IVC not well seen.Aortic ValveTricuspid. Mildly calcified cusps. Trace transvalvular regurgitation.Pulmonic ValveValve structure is grossly normal. Trace transvalvular regurgitation.Ascending AortaBorderline enlarged ascending aorta 3.17cm.PericardiumNo pericardial effusion.Study DetailsStudy quality was adequate. A complete echocardiogram was performed using 2D, color flow Doppler and spectral Doppler. [facility] GLUCOSE (AUTOMATED)2023-01-22 17:22:43 Test Item Value Reference Range Interpretation Comments POCT GLU (test code = 2043987507) 212 mg/dL 70-110 H Lab Interpretation (test code = Abnormal 63289-0) [facility] GLUCOSE (AUTOMATED)2023-01-22 13:12:18 Test Item Value Reference Range Interpretation Comments POCT GLU (test code = 4815967229) 316 mg/dL 70-110 H Lab Interpretation (test code = Abnormal 26733-7) [facility] GLUCOSE (AUTOMATED)2023-01-22 01:14:24 Test Item Value Reference Range Interpretation Comments POCT GLU (test code = 7932568771) 179 mg/dL 70-110 H Lab Interpretation (test code = Abnormal 80370-1) [facility] GLUCOSE (AUTOMATED)2023-01-21 21:52:38 Test Item Value Reference Range Interpretation Comments POCT GLU (test code = 3593331176) 109 mg/dL 70-110 Lab Interpretation (test code = Normal 79863-5) [facility] GLUCOSE (AUTOMATED)2023-01-21 16:44:14 Test Item Value Reference Range Interpretation Comments POCT GLU (test code = 1038601796) 142 mg/dL 70-110 H Lab Interpretation (test code = Abnormal 48245-0) [facility] GLUCOSE (AUTOMATED)2023-01-21 13:15:09 Test Item Value Reference Range Interpretation Comments POCT GLU (test code = 4605599334) 139 mg/dL 70-110 H Lab Interpretation (test code = Abnormal 02327-8) [facility] [id number] 09:55:26 Test Item Value Reference Range Interpretation Comments TSH (test code = 0.85 See_Comment Biotin has been 9409836733) reported to cau se a negative bias, interpret resul ts relative to pat ruthie's use of biotin. [Automated mess age] The system [employer] generated this result transmitted ref erence range: 0.45 - 4 .70 mIU/L. The refe rence range was not u sed to interpret this result as normal/abnor mal. Lab Interpretation (test Normal code = 48253-1) [facility] GLUCOSE (AUTOMATED)2023-01-21 01:25:43 Test Item Value Reference Range Interpretation Comments POCT GLU (test code = 9855601461) 147 mg/dL 70-110 H Lab Interpretation (test code = Abnormal 42444-5) [facility]ball[facility]cosylated Hemoglobin (A1C)2023-01-20 23:59:54 Test Item Value Reference Range Interpretation Comments HGB A1C (test code = 7.9 % 4.0-5.7 H 4548-4) BRUNO (test code = BRUNO) Reference RangesNormal: <5.7%Prediabetes: 5.7 - 6.4%Diabetes: > 6.5% Lab Interpretation (test Abnormal code = 77455-2) [facility]ball[facility]cos[facility] Hem[facility] (A1C)2023-01-20 23:59:54 Test Item Value Reference Range Interpretation Comments HGB A1C (test code = 7.9 % 4.0-5.7 H 4548-4) BRUNO (test code = BRUNO) Reference RangesNormal: <5.7%Prediabetes: 5.7 - 6.4%Diabetes: > 6.5% Lab Interpretation (test Abnormal code = 06932-6) [facility] TomballCB WITH [id number] 20:37:33 Test Item Value Reference Range Interpretation Comments WBC (test code = 12.17 See_Comment H [Automated 6690-2) message] The sy stem which generated this result transmitted reference range : 4.30 - 11.10 10*3/?L. The reference range was not used to interpret this result as normal/abnormal . RBC (test code = 3.57 See_Comment L [Automated 789-8) message] The sy stem which generated this result transmitted reference range : 3.93 - 5.25 10*6/?L. The reference range was not used to interpret this result as normal/abnormal . HGB (test code = 10.8 g/dL 11.6-15.0 L 718-7) HCT (test code = 34.5 % 35.7-45.2 L 4544-3) MCV (test code = 96.6 fL 80.6-95.5 H 787-2) MCH (test code = 30.3 pg 25.9-32.8 785-6) MCHC (test code = 31.3 g/dL 31.6-35.1 L 786-4) RDW-SD (test code = 63.7 fL 39.0-49.9 H 81381-1) RDW-CV (test code = 18.0 % 12.0-15.5 H 788-0) PLT (test code = 157 See_Comment L [Automated 777-3) message] The sy stem which generated this result transmitted reference range : 166 - 358 10*3/ ?L. The reference r fariba was not used to interpret this result as normal/abnormal . MPV (test code = 9.9 fL 9.5-12.9 42506-6) NRBC/100 WBC (test 0.3 See_Comment [Automat ed code = 5274529952) message] The system which generated this result transmitted reference range : 0.0 - 10.0 /100 WBCs. The refer ence range was not u sed to interpret th is result as normal/abnormal . NRBC x10^3 (test code 0.04 See_Comment [Auto mated = 6455364462) message] The s ystem which generated this result transmitted reference range : 10*3/?L. The reference range was not used to interpret this result as normal/abnormal . SEG % (test code = 57 % 33-76 97919-9) BAND % (test code = 16 % 0-1 H 60932-4) LYMPH % (test code = 22 % 14-54 99848-5) MONO % (test code = 4 % 0-4 52058-9) EOS % (test code = 1 % 0-3 10308-3) ANC (test code = 8.89 10*3/uL 1.88-7.09 H 753-4) POLYCHROMASIA (test 2+ See_Comment [Automa walt code = 48002-8) message] The system which generated this result transmitted reference range : 2+. The referen ce range was not u sed to interpret th is result as normal/abnormal . TOXIC CHANGES (test Present A code = 803-7) PLT ESTIMATE (test Normal Normal code = 9317-9) Lab Interpretation Abnormal (test code = 61234-5) [facility]ballVANITA [id number] 20:12:52 Test Item Value Reference Range Interpretation Comments TROPONIN I (test code = 0.078 ng/mL <=0.034 H 6550356001) BRUNO (test code = BRUNO) Reference (Normal) Range (defined by the 99th percentile reference limit): <= 0.034 ng/mL Note: Cardiac troponin begins to rise 3-4 hours after the onset of ischemia. Repeat in 4-6 hours if the sample was drawn within 3-4 hours of the onset of the symptom and found normal. Diagnosis of myocardial injury is made with acute changes in cTn concentrations with at least one serial sample above the 99th percentile upper reference limit (URL), taken together with the patient's clinical presentation. Biotin has been reported to cause a negative bias, interpret results relative to patient's use of biotin. Lab Interpretation Abnormal (test code = 92306-2) [facility] TomballN-TERMINAL [id number] 20:09:28 Test Item Value Reference Range Interpretation Comments NT-proBNP (test code = 3280 pg/mL <=125 H 1989333846) BRUNO (test code = BRUNO) Biotin has been reported to cause a negative bias, interpret results relative to patient's use of biotin. Lab Interpretation (test Abnormal code = 33836-5) [facility] TomballCOMP. METABOLIC PANEL (08625)2023-01-20 20:01:07 Test Item Value Reference Range Interpretation Comments NA (test code = 130 mmol/L 135-145 L 2444255618) K (test code = 5.2 mmol/L 3.5-5.0 H 8771104069) CL (test code = 95 mmol/L 98-108 L 3503917283) CO2 TOTAL (test code = 29 mmol/L 23-31 1045803875) AGAP (test code = 6 2-16 4832961532) BUN (test code = 32 mg/dL 7-23 H 1023826250) GLUCOSE (test code = 174 mg/dL 70-110 H 0410956091) CREATININE (test code = 1.99 mg/dL 0.50-1.04 H 1346574038) TOTAL BILI (test code = 0.5 mg/dL 0.1-1.3 1271665106) CALCIUM (test code = 7.8 mg/dL 8.6-10.6 L 7513163786) T PROTEIN (test code = 5.3 g/dL 6.3-8.2 L 5462993621) ALBUMIN (test code = 2.6 g/dL 3.5-5.0 L 9140822283) ALK PHOS (test code = 61 U/L 34-122 4033706044) ALTv (test code = 22 U/L 5-35 1742-6) AST(SGOT) (test code = 18 U/L 13-40 6682539156) eGFR (test code = 24.7 mL/min/1.73m2 8890636758) BRUNO (test code = BRUNO) Association of Glomerular Filtration Rate (GFR) and Staging of Kidney Disease* + --+ --+ ------+| GFR (mL/min/1.73 m2) ?| With Kidney Damage ?| ?Without Kidney Damage+ --------+ --------+ +| ?>90 ?| ?Stage one ?| ? Normal ?+ ---+ ---+ -------+| ?60-89 ?| ?Stage two ?| ? Decreased GFR ? + --+ --+ ------+| ?30-59 ?| ?Stage three ?| ? Stage three ? + --+ --+ ------+| ?15-29 ?| ?Stage four ? | ? Stage four ?+ ---+ ---+ -------+| ?<15 (or dialysis) ? ?| ?Stage five ? | ? Stage five ?+ ---+ ---+ -------+ *Each stage assumes the associated GFR level has been in effect for at least three months. ?Stages 1 to 5, with or without kidney disease, indicate chronic kidney disease. Notes: Determination of stages one and two (with eGFR >59mL/min/1.73 m2) requires estimation of kidney damage for at least three months as defined by structural or functional abnormalities of the kidney, manifested by either:Pathological abnormalities or Markers of kidney damage (including abnormalities in the composition of the blood or urine or abnormalities in imaging tests). Lab Interpretation Abnormal (test code = 40228-4) [facility]ballPULMONARY FUNCTION TEST (RESULTS)2022-10-04 17:10:10 Test Item Value Reference Range Interpretation Comments FVC Actual (test code = 3994) 1.22 L FEV1 Actual (test code = 3993) 1.15 L FEV1/FVC Actual (test code = 3995) 94 % [facility] TomballCoronavirus 2019 nCoV [id number] 18:48:00 Test Item Value Reference Range Interpretation Comments Coronavirus 2019 nCoV Positive Negative A Resul ts called to and Bedside (test code = read ba ck by JOHN PAUL [id number]) RELL; 1848, 10/12/20, Lois Cruz.ID NOW COVID-19 as say performed on e ID NOW Instrument shonda rapid molecular in vi tro diagnostic test utilizing aniso thermal nucleic acid amplification t echnology intendedfor the qualitative det ection of nucleic acid fr om [id number] v iral RNA in direct nasal , nasopharyngeal orthroat swabs and nasal , nasopharyngeal or throat swabseluted in viral transport media from individuals who aresuspected of COVID-19 by their health care provider. Resul ts are for the identif ication of SARS-CoV-2 R NA.For Use Under an Em ergency Use Authorizati on (EUA) Only Negative r esults do not preclude SA RS-CoV-2 infection andsh ould not be used as the sole basis for patie nt managementdecis ions. Negative result s must be combined with clinicalobserva tions, patient history , and epidemiological informati on. COMPREHENSIVE METABOLIC [id number] 18:42:00 Test Item Value Reference Range Interpretation Comments SODIUM (test code = 139 MMOL/L 133-145 N NA) POTASSIUM (test code = 3.5 MMOL/L 3.6-5.2 L K) CHLORIDE (test code = 104 MMOL/L 100-108 N CL) CARBON DIOXIDE (test 28 MMOL/L 22-32 N code = CO2) GLUCOSE (test code = 94 MG/DL 65-99 N Results of this assay GLU) method may be f alsely depressed orele vated if patient is t aking sulfasalazine. BLOOD UREA NITROGEN 87 MG/DL 6-20 H (test code = BUN) GLOMERULAR FILTRATION 15 45-104 L Report ing units: RATE (test code = GFR) mL/mi n/1.73m\\S\\2 (Modified MDRD Formula) CREATININE (test code 3.14 MG/DL 0.60-1.00 H = CREAT) TOTAL PROTEIN (test 7.5 G/DL 6.4-8.2 N code = PROT) ALBUMIN (test code = 2.6 G/DL 3.4-5.0 L ALB) GLOBULIN (test code = 4.9 G/DL 1.5-3.8 H GLOB) ALBUMIN/GLOBULIN RATIO 0.5 1.1-2.2 L (test code = A/G) CALCIUM (test code = 9.3 MG/DL 8.7-10.5 N CA) BILIRUBIN TOTAL (test 0.5 MG/DL 0.0-1.0 N code = BILT) SGOT/AST (test code = 54 Units/L 15-37 H Result s of this assay AST) method may be f alsely depressed orele vated if patient is t aking sulfasalazine. SGPT/ALT (test code = 33 Units/L 30-65 N Result s of this assay ALT) method may be f alsely depressed orele vated if patient is t aking sulfasalazine. ALKALINE PHOSPHATASE 77 Units/L 50-136 N TOTAL (test code = ALKP) [id number] 18:42:00 Test Item Value Reference Range Interpretation Comments PHOSPHOROUS (test code = PHOS) 2.9 MG/DL 2.5-4.9 N LACTIC [id number] 18:28:00 Test Item Value Reference Range Interpretation Comments LACTIC ACID (test code = LACT) 1.3 MMOL/L 0.5-2.2 N - XR CHEST 1 [id number] 18:23:00 [facility] 1950 Sex: F Patient Name: JOSE JAVIER Unit No: [id number] EXAMS: CPT CODE: [id number] XR CHEST 1 V 15333 Reason: dyspnea - XR CHEST 1 V 10/12/2020 4:42 PM Indication: SOB dyspnea Covid positive There is poor inspiration with accentuated heart and bronchovascular markings. There are mild patchy densities in the bases. No effusions. IMPRESSION: Markedly Hypoventilatory chest. at 1823 Reported and signed by: Rsohan Jacobs MD CC: Brian Conner MD Technologist: Rochelle MOORE (Krista) Trscrpt Dt/ (182)tKAMARE Orig Print D/T: S: 10/12/2020(182) [facility] NAME: JOSE JAVIER [address] PHYS: Brian Azevedo MD Sugar allen,Brian [id number] : 1950 AGE: 70 SEX: F LOC: [facility] PHONE #: [phone] EXAM DATE: 10/12/2020 STATUS: REG ER FAX #: RAD NO: DC Dt: PAGE 1 Signed ReportCBC W/AUTO [id number] 18:22:00 Test Item Value Reference Range Interpretation Comments WHITE BLOOD CELL (test code = 6.27 x10 3/uL 4.80-10.80 N WBC) RED BLOOD CELL (test code = 4.00 x10 6/uL 4.2-5.4 L RBC) HEMOGLOBIN (test code = HGB) 12.6 G/DL 12.0-16.0 N HEMATOCRIT (test code = HCT) 38.9 % 37-47 N MEAN CELL VOLUME (test code = 97.3 FL 81-99 N MCV) MEAN CELL HGB (test code = MCH) 31.5 PG 27-31 H MEAN CELL HGB CONCENTRATION 32.4 G/DL 33-37 L (test code = MCHC) RED CELL DISTRIBUTION WIDTH 13.7 % 11.5-14.5 N (test code = RDW) PLATELET COUNT (test code = 134 x10 3/uL 150-450 L PLT) MEAN PLATELET VOLUME (test code 11.8 FL 7.4-10.4 H = MPV) NEUTROPHIL % (test code = NT%) 65.5 % 42-86 N IMMATURE GRANULOCYTE % (test 0.5 % 0.0-2.0 N code = IG%) LYMPHOCYTE % (test code = LY%) 28.2 % 24-44 N MONOCYTE % (test code = MO%) 5.6 % 0.0-4.0 H EOSINOPHIL % (test code = EO%) 0.0 % 0.0-2.7 N BASOPHIL % (test code = BA%) 0.2 % 0.0-0.5 N NUCLEATED RBC % (test code = 0.0 % 0.0-0.0 N NRBC%) NEUTROPHIL # (test code = NT#) 4.11 x10 3/uL 1.8-7.7 N IMMATURE GRANULOCYTE # (test 0.03 x10 3/uL 0.00-0.03 N code = IG#) LYMPHOCYTE # (test code = LY#) 1.77 x10 3/uL 1.0-4.8 N MONOCYTE # (test code = MO#) 0.35 x10 3/uL 0.0-0.8 N EOSINOPHIL # (test code = EO#) 0.00 x10 3/uL 0.0-0.5 N BASOPHIL # (test code = BA#) 0.01 x10 3/uL 0.0-0.2 N NUCLEATED RBC # (test code = 0.0 X10 3/uL 0.0-0.2 N NRBC#) C REACTIVE [id number] 18:21:00 Test Item Value Reference Range Interpretation Comments C REACTIVE PROTEIN (test code = 6.4 MG/DL < 0.9 H CRP) PROTHROMBIN [id number] 18:15:00 Test Item Value Reference Range Interpretation Comments PROTHROMBIN TIME 11.4 SECONDS 9.6-12.3 N PATIENT (test code = PTP) INTERNATIONAL NORMAL 1.01 Recomme nded INR range RATIO (test code = (warfarin therapy): INR) 2.0 - 3.0INR (International Normalized Rati o) should beused w hen interpreting or al anticoaglulant therapy. For at rial fibrillation an d treatment orprevention of deep vein thrombosis . Patients with Palmaz-Jose s tent *: 2.0 - 3.0 Pa tients with mechanical heart valve *: 2.5 - 3.5 Patients with flex-stent *: 3.0 - 4.0(*) = construction estimator's suggested range Is patient on anticoagulants? Unknown
[2023-03-12 09:11] LABS: Absolute Lymphocytes (CBC) 2.6 K/uL (0.7-4.9); Hematocrit 42.4 % (36.0-45.0); Lymphocytes % 23.6 % (15.3-44.8); MCV 99.7 fL (80-100); RBC Red Blood Cell Count 4.25 M/uL (3.86-4.86)
[2023-03-12 09:13] LABS: Albumin 2.2 g/dL (3.4-5.0); Bilirubin Total 0.6 mg/dL (0.2-1.0); Protein, Total 6.9 g/dL (6.4-8.2)
--- NOTE | 2023-03-12 09:19 | RAD REPORT ---
EXAM DESCRIPTION: Aniket Single View03/12/2023 8:36 am CLINICAL HISTORY: Shortness of breath COMPARISON: none FINDINGS: Moderate bilateral pulmonary opacities Heart is mildly enlarged. The patient is in a poor degree of inspiration IMPRESSION: These findings probably indicate CHF
[2023-03-12] MEDS ORDERED: Meropenem 1000 MG/VIAL IV ONE (09:33)
[2023-03-12] MEDS ORDERED: NA CHLORIDE 0.9% 500 ML ONE (09:33)
[2023-03-12] MEDS ORDERED: NA CHLORIDE 0.9% 100 ML ONE (09:34)
[2023-03-12] MEDS ORDERED: HYDROCORTISONE SUC 100 MG INJ ONE (09:35)
[2023-03-12 09:56] LABS: SARS-CoV-2 Antigen Rapid Res Negative (Negative)
[2023-03-12] MEDS ORDERED: DEXTROSE 10%-WATER 0 ML IV ONE (09:56)
[2023-03-12] MEDS ORDERED: D10W 250 ML IV ONE (09:57)
[2023-03-12] MEDS ORDERED: ASPIRIN 300 MG/SUPP PR ONE (10:00)
[2023-03-12] MEDS ORDERED: VANCOMYCIN 1.5 GM in NA CHLORIDE 0.9% 500 ML IVPB ONE (10:00)
--- NOTE | 2023-03-12 10:02 | RAD REPORT ---
EXAM DESCRIPTION: TUClaire Single View03/12/2023 9:38 am CLINICAL HISTORY: Device placement/central venous catheter placement IMPRESSION: Central venous catheter with its tip in the superior vena cava No pneumothorax
[2023-03-12] MEDS ORDERED: HEPARIN/D5W 25,000 UNIT/500 ML BAG IV ONE (10:15)
[2023-03-12 10:26] LABS: Thyroid Stimulating Hormone 0.518 uIU/mL (0.358-3.740)
[2023-03-12 10:46] LABS: Arterial Blood Carboxyhemoglob 1.5 % (0-1.5); Blood Gas Oxyhemoglobin 91.5 % (94-97); Blood O2 Saturation 93.9 % (92-98.5)
--- NOTE | 2023-03-12 10:51 | EDPHYS ---
Physician Documentation [facility] Name: Kathrine Javier Age: 72 yrs Sex: Female : 1950 Arrival Date: 03/12/2023 Time: 07:55 Bed 3 Private MD: ED Physician Srinivasa Vigil HPI: 03/12 10:29 This 72 yrs old Black Female presents to ER via EMS with complaints of Respiratory bs3 Distress. 10:29 72-year-old female history of hypertension, diabetes, CHF, CKD recent history of bs3 pneumonia presents with shortness of breath from residential per EMS her blood pressure was systolic 50s and she was brought in history is limited secondary to condition and mental status patient unable to express herself when family arrived they reported that since January she has been on a downward trajectory and recently placed in a rehab facility last week they had discussed goals of care and were thinking about comfort measures over the last week she has not been able to get out of bed. Historical: - Allergies: 08:08 REPAGLINIDE; ll1 08:08 amlodipine; ll1 08:08 HYDRALAZINE; ll1 08:08 Iodine; ll1 - PMHx: 08:00 Congestive heart failure; Hypertensive disorder; ll1 08:08 Arthritis; Diabetes mellitus; GERD; Hypercholesterolemia; SERGE on CPAP; Kidney disease; ll1 thyroid disorder; vit. B12 and Vit D deficiency; - PSHx: 08:08 hysterectomy; Cholecystectomy; cataract repair; ll1 - Immunization history:: Adult Immunizations up to date. - Social history:: Smoking status: unknown. ROS: 10:29 Constitutional: Negative for fever, chills bs3 10:29 Unable to obtain ROS due to altered mental status. Exam: 10:29 Constitutional: This is a well developed, well nourished patient who is awake, appears bs3 in moderate respiratory distress with poor inhalation increased work of breathing shallow respirations Head/Face: Normocephalic, atraumatic. Eyes: Pupils equal round and reactive to light, extra-ocular motions intact. Lids and lashes normal. ENT: mmm, no posterior phyarngeal erythema Neck: Trachea midline, no thyromegaly, no neck stiffness Chest/axilla: Normal chest wall appearance and motion. Nontender with no deformity. No lesions are appreciated. Cardiovascular: Regular rate and rhythm with a normal S1 and S2. symmetric pulses in upper extremities Respiratory: Tachypneic, rhonchi bilaterally Abdomen/GI: Soft, non-tender, no rebound or guarding Skin: Warm, dry with normal turgor. Normal color with no rashes, no lesions, and no evidence of cellulitis. MS/ Extremity: b/l lower extremity edema, tender anter to palpation. Neuro: Awake and alert, limited rom of arms/legs, but able to move, follow simple commands Vital Signs: 08:02 BP 46 / 22; Pulse 90; Resp 27; Temp 97.7; Pulse Ox 100% on Non-rebreather mask; ll1 08:15 BP 67 / 55; Pulse 89; Resp 22; Pulse Ox 95% on 45 lpm BiPAP; ph 08:30 BP 81 / 66; Pulse 85; Resp 22; Pulse Ox 100% on 45 lpm BiPAP; ph 08:45 BP 123 / 71; Pulse 80; Resp 18; Pulse Ox 100% on 45 lpm BiPAP; ph 09:00 BP 123 / 71; Pulse 80; Resp 20; Pulse Ox 100% on BiPAP; ph 09:25 BP 127 / 79; Pulse 75; Resp 18; Pulse Ox 100% on 45 lpm BiPAP; Weight 90 kg; Height 5 hb ft. 8 in. ; 10:00 BP 114 / 63; Pulse 77; Resp 22; Pulse Ox 100% on 45 lpm BiPAP; ph 10:36 BP 104 / 58; Pulse 84; Resp 30; Pulse Ox 100% on 45 lpm BiPAP; ph 10:36 BP 103 / 59; Pulse 83; Resp 28; Pulse Ox 98% on 45 lpm BiPAP; ph 11:42 BP 108 / 54; Pulse 82; Resp 21; Pulse Ox 97% on 45 lpm BiPAP; ph 12:30 BP 83 / 72; Pulse 83; Resp 18; Pulse Ox 100% on BiPAP; ph 13:06 BP 116 / 57; Pulse 81; Resp 20; Pulse Ox 100% on BiPAP; ph 13:30 BP 103 / 56; Pulse 80; hb 14:00 BP 107 / 61; Pulse 80; Resp 18; Pulse Ox 100% on 45 lpm BiPAP; hb 14:30 BP 111 / 53; Pulse 79; hb 15:00 BP 108 / 56; Pulse 84; Resp 18; Pulse Ox 100% on BiPAP; ph 15:30 BP 111 / 62; Pulse 82; Resp 18; Temp 97; Pulse Ox 100% on BiPAP; ph 09:25 Body Mass Index 30.17 (90.00 kg, 172.72 cm) hb Procedures: 10:29 Central Line: the site was prepped with in sterile fashion, chlorehexidine, a triple bs3 lumen catheter was inserted, in the left internal jugular vein, in 1 attempts. placement was verified, by CXR, by blood return, the site was dressed with Tegaderm, using sterile technique, the patient tolerated the procedure, well. Performed right anterior tibia IO placed by myself. . MDM: 07:58 Patient medically screened. bs3 10:29 Differential diagnosis: Anemia asthma, CHF exacerbation, Chronic Obstructive Pulmonary bs3 Disease pneumonia, Pneumothorax pulmonary edema, Pulmonary Embolism Sepsis Unstable Angina. Data reviewed: vital signs, nurses notes. I considered the following discharge prescriptions or medication management in the emergency department Medications were administered in the Emergency Department. See MAR. Independent interpretation of the following test(s) in the Emergency Department EKG: See my EKG interpretation above X-Ray: My interpretation is multifocal opacities. Discussion of test interpretation with radiology: I had a discussion with radiology regarding a test interpretation. consideration for central line. Counseling: I had a detailed discussion with the patient and/or guardian regarding: the historical points, exam findings, and any diagnostic results supporting the discharge/admit diagnosis, the need for further work-up and treatment in the hospital. ED course: Patient with respiratory distress placed on BiPAP immediately via IO by EMS failed multiple IVs failed therefore we placed a right IO patient was hypotensive but also with fluid overload therefore we gave 500 mL of IV fluid we deviated from 30 cc/kg secondary to her heart failure and fluid overload a left IJ was placed work-up initiated broad-spectrum antibiotics given I had a long shared decision-making conversation with family at bedside multiple times discussing goals of care. 10:49 ED course: After long conversation family wanted to do limited interventions and focus bs3 on comfort measures. 05 07:59 Order name: Blood Culture Adult (2) bs3 03/12 07:59 Order name: CBC with Diff; Complete Time: 09:18 bs3 03/12 07:59 Order name: CMP; Complete Time: 09:31 bs3 03/12 07:59 Order name: Lactate w/ 2H reflex if indic.; Complete Time: 09:31 bs3 03/12 07:59 Order name: Protime (+inr); Complete Time: 09:31 bs3 03/12 07:59 Order name: Ptt, Activated; Complete Time: 09:31 bs3 03/12 07:59 Order name: Troponin High Sensitivity; Complete Time: 09:31 bs3 03/12 07:59 Order name: BNP; Complete Time: 09:31 bs3 03/12 08:26 Order name: ABG Arterial Blood Gas; Complete Time: 09:18 EDMS 03/12 09:05 Order name: D-Dimer; Complete Time: 09:31 EDMS 03/12 09:18 Order name: TSH; Complete Time: 10:29 bs3 03/12 09:20 Order name: Glucose; Complete Time: 10:29 bs3 03/12 09:22 Order name: SARS-COV-2 Antigen Rapid; Complete Time: 10:29 bs3 03/12 10:00 Order name: Glucose, Ancillary Testing; Complete Time: 10:29 EDMS 03/12 10:47 Order name: ABG Arterial Blood Gas; Complete Time: 14:39 EDMS 03/12 13:34 Order name: CBC with Automated Diff EDMS 03/12 13:34 Order name: CBC with Automated Diff EDMS 03/12 13:34 Order name: Comprehensive Metabolic Panel EDMS 03/12 13:34 Order name: Comprehensive Metabolic Panel EDMS 03/12 14:12 Order name: Ptt, Activated ph 03/12 14:40 Order name: Glucose, Ancillary Testing EDMS 03/12 14:57 Order name: Lactate Sepsis 2 HR Follow-up EDMS 03/12 07:59 Order name: Chest Single View XRAY; Complete Time: 09:20 bs3 03/12 09:19 Order name: Chest Single View XRAY; Complete Time: 10:29 bs3 03/12 09:46 Order name: CT Head Brain wo Cont; Complete Time: 14:39 bs3 03/12 10:15 Order name: US Extremity Venous W Compression Darshan; Complete Time: 14:39 bs3 03/12 07:59 Order name: EKG; Complete Time: 08:00 bs3 03/12 13:31 Order name: Case Management Consult EDMS 03/12 13:34 Order name: NPO EDMS 03/12 07:59 Order name: Accucheck; Complete Time: 09:59 bs3 03/12 07:59 Order name: Cardiac monitoring; Complete Time: 08:14 bs3 03/12 07:59 Order name: EKG - Nurse/Tech; Complete Time: 09:59 bs3 03/12 07:59 Order name: IV Saline Lock - Large Bore; Complete Time: 09:59 bs3 03/12 07:59 Order name: Labs collected and sent; Complete Time: 09:59 bs3 03/12 07:59 Order name: O2 Per Protocol; Complete Time: 08:14 bs3 03/12 07:59 Order name: O2 Sat Monitoring; Complete Time: 08:14 bs3 03/12 07:59 Order name: Vital Signs; Complete Time: 09:59 bs3 03/12 09:20 Order name: Glucose Level; Complete Time: 09:56 bs3 Administered Medications: 10:49 Discontinued: Norepinephrine IV 0.1 mcg/kg/min IV at calculated rate Per protocol; bs3 (Standard concentration 4 mg / 250 mL D5W); Recommended max rate 3 mcg/kg/min; Titrate 0.05 mcg/kg/min as often as every 5 minutes to achieve goal (see titration policy); Goal parameter MAP greater than 65 mmHg. 08:15 Drug: NS 0.9% IV 250 ml Route: IV; Rate: bolus; Site: left forearm; ph 09:00 Follow up: Response: No adverse reaction; IV Status: Completed infusion ph 08:15 Drug: Norepinephrine IV 15 mcg/min Route: IV; Rate: calculated rate; Site: left forearm;ph 09:00 Follow up: Rate change 20 mcg/min ph 09:30 Follow up: Rate change 15 mcg/min ph 09:35 Follow up: Rate change 5 mcg/min ph 11:04 Follow up: Response: No adverse reaction; IV Status: Order to discontinue infusion ph 08:31 Not Given (Duplicate Order): Rocephin IV 1 grams IV at 1 bolus once; Given slow IV push bs3 per pharmacy instructions 08:40 Drug: Meropenem IV 1 grams Route: IV; Rate: 1 bolus; Site: left forearm; ph 09:10 Follow up: Response: No adverse reaction; IV Status: Completed infusion ph 09:40 Drug: Solu-CORTEF IVP 100 mg Route: IVP; Site: left subclavian; ph 10:27 Follow up: Response: No adverse reaction ph 09:55 Drug: D50W IVP 50 ml Route: IVP; Site: left subclavian; ph 11:00 Follow up: Response: No adverse reaction ph 10:15 Drug: Aspirin MN Suppository 300 mg Route: MN; ph 11:00 Follow up: Response: No adverse reaction ph 10:24 Drug: Heparin (DVT/PE- Bolus per protocol) - HEParin IVP 80 units/kg {Co-Signature: hb ph (Karen Hoffman RN).} Route: IVP; Site: left subclavian; 11:00 Follow up: Response: No adverse reaction ph 10:25 Drug: Heparin (DVT/PE Drip) - ([place] [address] units, D5W IV 500 ml) 18 units/kg/hr ph {Co-Signature: hb (Karen Hoffman RN).} {Note: 1600.} Route: IV; Rate: 1 calculated rate; Site: left subclavian; 11:00 Follow up: IV Status: Infusion continued upon admission ph 11:02 Drug: morphine IVP or IV 2 mg Route: IVP; Infused Over: 4 mins; Site: left subclavian; ph 11:30 Follow up: Response: No adverse reaction ph 11:30 Drug: vancoMYCIN IVPB 15 mg/kg Route: IVPB; Site: left subclavian; ph 13:30 Follow up: Response: No adverse reaction; IV Status: Completed infusion ph 11:41 Not Given (Physician Discretion): NS 0.9% IV 500 ml IV at bolus once ph 19:31 Not Given (Other Intervention Used): Glycopyrrolate 0.2 mg IV at bolus bolus ph Disposition: 10:49 Critical Care:. 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 Total time: 95 minutes Signatures: Dispatcher [employer] EDMS Macie Herrera RN RN ss Merari Bermeo RN RN [facility] ll1 Srinivasa Vigil MD MD bs3 Karen Hoffman RN Corrections: (The following items were deleted from the chart) 09:04 08:15 D-DIMER+COAG.LAB.BRZ ordered. [facility] EDME 10:51 10:50 Torsten Lam 3 bs3 13:51 10:50 bs3
--- NOTE | 2023-03-12 10:51 | ER ---
Nurse's Notes [facility] Name: Kathrine Javier Age: 72 yrs Sex: Female : 1950 Arrival Date: 03/12/2023 Time: 07:55 Bed 3 Private MD: Diagnosis: Heart failure, unspecified;Hypertensive heart and chronic kidney disease with heart failure and with stage 5 chronic kidney disease, or end stage renal disease;Acute respiratory failure Presentation: 03/12 08:02 Chief complaint: Patient states: Low O2, SOB, and lethargic per nursing facility. EMS ll1 states: O2 sat mid 90's on NRB upon EMS arrival. BP 30's systolic. IV started, bolus given. BP up to 113 systolic now. Coronavirus screen: Vaccine status: Patient reports receiving the 2nd dose of the covid vaccine. Client denies travel out of the [place] in the last 14 days. difficulty breathing, fatigue, shortness of breath, Client presents with at least one sign or symptom that may indicate coronavirus-19. Standard/surgical mask placed on the client. Ebola Screen: Patient denies travel to an Ebola-affected area in the 21 days before illness onset. Initial Sepsis Screen: Does the patient meet any 2 criteria? No. Patient's initial sepsis screen is negative. Does the patient have a suspected source of infection? Yes: Productive cough/pneumonia. Risk Assessment: Do you want to hurt yourself or someone else? Patient reports no desire to harm self or others. Onset of symptoms is unknown. 08:02 Method Of Arrival: EMS: [facility] 08:02 Acuity: EDUARDO 1 ll1 Triage Assessment: 08:06 General: Appears distressed, uncomfortable, Behavior is cooperative, appropriate for ll1 age. General: Reports fatigue for. Pain: Denies pain. Neuro: Reports weakness. Respiratory: Reports shortness of breath at rest labored breathing. Historical: - Allergies: 08:08 REPAGLINIDE; ll1 08:08 amlodipine; ll1 08:08 HYDRALAZINE; ll1 08:08 Iodine; ll1 - PMHx: 08:00 Congestive heart failure; Hypertensive disorder; ll1 08:08 Arthritis; Diabetes mellitus; GERD; Hypercholesterolemia; SERGE on CPAP; Kidney disease; ll1 thyroid disorder; vit. B12 and Vit D deficiency; - PSHx: 08:08 hysterectomy; Cholecystectomy; cataract repair; ll1 - Immunization history:: Adult Immunizations up to date. - Social history:: Smoking status: unknown. Screenin:14 [facility] ED Fall Risk Assessment (Adult) History of falling in the last 3 months, ph including since admission No falls in past 3 months (0 pts) Confusion or Disorientation Yes (5 pts) Intoxicated or Sedated No (0 pts) Impaired Gait Yes (1 pt) Mobility Assist Device Used Yes (1 pt) Altered Elimination Yes (1 pt) Score/Fall Risk Level 3 or more points = High Risk Oriented to surroundings, Maintained a safe environment, Hourly rounding (assess needs \T\ fall precautionary measures) done, Used ambulatory aids as needed (educated on \T\ assisted with). Abuse screen: Denies threats or abuse. Denies injuries from another. Nutritional screening: No deficits noted. Tuberculosis screening: No symptoms or risk factors identified. Assessment: 08:12 Reassessment: Pt placed on bi-pap upon arrival, RT at bedside for ABG, Dr Vigil to assess pt. 08:30 General: Appears distressed, uncomfortable, Behavior is drowsy, quiet. Pain: Complains ph of pain in right leg and left leg. Neuro: Level of Consciousness is awake, confused, lethargic, Oriented to person. Cardiovascular: Patient's skin is warm and dry. Rhythm is sinus rhythm. Respiratory: Airway is patent Respiratory effort is labored, shallow, Respiratory pattern is tachypnea. GI: Abdomen is round non-distended. : Galo in place to gravity drainage Urine is cloudy. Derm: Skin is pink, warm \T\ dry. Musculoskeletal: 09:33 Reassessment: OK to use CVC per Dr. Vigil. hb 11:41 Reassessment: Patient appears in no apparent distress at this time. Patient and/or ph family updated on plan of care and expected duration. Pain level reassessed. Pt returned from CT, family at bedside. 12:10 Reassessment: Patient appears in no apparent distress at this time. Patient and/or ph family updated on plan of care and expected duration. Pain level reassessed. Dr Steven at bedside to speak w/ family. 12:21 Reassessment: US at bedside. ph 13:30 Reassessment: Patient appears in no apparent distress at this time. No changes from ph previously documented assessment. 15:00 Reassessment: Patient appears in no apparent distress at this time. Patient and/or ph family updated on plan of care and expected duration. Pain level reassessed. Vital Signs: 08:02 BP 46 / 22; Pulse 90; Resp 27; Temp 97.7; Pulse Ox 100% on Non-rebreather mask; ll1 08:15 BP 67 / 55; Pulse 89; Resp 22; Pulse Ox 95% on 45 lpm BiPAP; ph 08:30 BP 81 / 66; Pulse 85; Resp 22; Pulse Ox 100% on 45 lpm BiPAP; ph 08:45 BP 123 / 71; Pulse 80; Resp 18; Pulse Ox 100% on 45 lpm BiPAP; ph 09:00 BP 123 / 71; Pulse 80; Resp 20; Pulse Ox 100% on BiPAP; ph 09:25 BP 127 / 79; Pulse 75; Resp 18; Pulse Ox 100% on 45 lpm BiPAP; Weight 90 kg; Height 5 hb ft. 8 in. ; 10:00 BP 114 / 63; Pulse 77; Resp 22; Pulse Ox 100% on 45 lpm BiPAP; ph 10:36 BP 104 / 58; Pulse 84; Resp 30; Pulse Ox 100% on 45 lpm BiPAP; ph 10:36 BP 103 / 59; Pulse 83; Resp 28; Pulse Ox 98% on 45 lpm BiPAP; ph 11:42 BP 108 / 54; Pulse 82; Resp 21; Pulse Ox 97% on 45 lpm BiPAP; ph 12:30 BP 83 / 72; Pulse 83; Resp 18; Pulse Ox 100% on BiPAP; ph 13:06 BP 116 / 57; Pulse 81; Resp 20; Pulse Ox 100% on BiPAP; ph 13:30 BP 103 / 56; Pulse 80; hb 14:00 BP 107 / 61; Pulse 80; Resp 18; Pulse Ox 100% on 45 lpm BiPAP; hb 14:30 BP 111 / 53; Pulse 79; hb 15:00 BP 108 / 56; Pulse 84; Resp 18; Pulse Ox 100% on BiPAP; ph 15:30 BP 111 / 62; Pulse 82; Resp 18; Temp 97; Pulse Ox 100% on BiPAP; ph 09:25 Body Mass Index 30.17 (90.00 kg, 172.72 cm) hb Vitals: 10:00 Cardiac Rhythm Assessment Sinus rhythm. ph ED Course: 07:58 Patient arrived in ED. hb 07:58 Srinivasa Vigil MD is Attending Physician. bs3 08:00 Arm band placed on Patient placed in an exam room, on a stretcher. ll1 08:06 Triage completed. ll1 08:12 Merari Bermeo, RN is Primary Nurse. ph 08:13 Patient has correct armband on for positive identification. Placed in gown. Bed in low ph position. Call light in reach. Side rails up X2. Client placed on continuous cardiac and pulse oximetry monitoring. NIBP monitoring applied. Warm blanket given. Verbal reassurance given. 08:30 Maintain EMS IV. Dressing intact. Site clean \T\ dry. Gauge \T\ site: 22 LFA. ph 08:38 Chest Single View XRAY In Process Unspecified. EDMS 09:02 Inserted intraosseous access in right, using aseptic technique humeral tuberosity. hb placed by . 09:20 Assisted provider with central line placement. Set up central line tray. Triple lumen ph line placed in left internal jugular. Line placed by Srinivasa Vigil MD Placement verified by CXR, blood return, Dressed with Tegaderm, Patient tolerated well. Before procedure, did Practitioner(s) obtain informed consent? Yes. Patient \T\ family education about procedure, CLABSI prevention and S/S of infection? Yes. Time-out/Briefing performed prior to start of procedure? Yes. Was handwashing/sanitizing done immediately prior to procedure? Yes. Was patient positioned to in a way to prevent air embolism? Yes. Was procedure site sterilized? Yes, with chlorhexidine. Was the site allowed to dry? Yes. Was local anesthetic and/or sedation utilized? Yes. During the procedure, did the Practitioner(s) maintain a sterile field? Yes. Were unused ports clamped during insertion? Yes. Was a 2nd qualified MD obtained after 3 unsuccessful insertion attempts? N/A. Was blood aspirated from each lumen? Yes. After the procedure, did the Practitioner(s) clean the site and apply a sterile dressing? Yes. 09:40 Chest Single View XRAY In Process Unspecified. EDMS 10:50 Srinivasa Vigil MD is Hospitalizing Provider. bs3 10:50 Hospitalizing Provider role handed off by Srinivasa Vigil MD bs3 10:50 Torsten Lam MD is Hospitalizing Provider. bs3 10:51 Hospitalizing Provider role handed off by Torsten Lam MD bs3 10:51 Sergio Steven MD is Hospitalizing Provider. bs3 11:30 CT Head Brain wo Cont In Process Unspecified. EDMS 12:26 Patient admitted, IV remains in place. ph 12:50 US Extremity Venous W Compression Darshan In Process Unspecified. EDMS Administered Medications: 10:49 Discontinued: Norepinephrine IV 0.1 mcg/kg/min IV at calculated rate Per protocol; bs3 (Standard concentration 4 mg / 250 mL D5W); Recommended max rate 3 mcg/kg/min; Titrate 0.05 mcg/kg/min as often as every 5 minutes to achieve goal (see titration policy); Goal parameter MAP greater than 65 mmHg. 08:15 Drug: NS 0.9% IV 250 ml Route: IV; Rate: bolus; Site: left forearm; ph 09:00 Follow up: Response: No adverse reaction; IV Status: Completed infusion ph 08:15 Drug: Norepinephrine IV 15 mcg/min Route: IV; Rate: calculated rate; Site: left forearm;ph 09:00 Follow up: Rate change 20 mcg/min ph 09:30 Follow up: Rate change 15 mcg/min ph 09:35 Follow up: Rate change 5 mcg/min ph 11:04 Follow up: Response: No adverse reaction; IV Status: Order to discontinue infusion ph 08:31 Not Given (Duplicate Order): Rocephin IV 1 grams IV at 1 bolus once; Given slow IV push bs3 per pharmacy instructions 08:40 Drug: Meropenem IV 1 grams Route: IV; Rate: 1 bolus; Site: left forearm; ph 09:10 Follow up: Response: No adverse reaction; IV Status: Completed infusion ph 09:40 Drug: Solu-CORTEF IVP 100 mg Route: IVP; Site: left subclavian; ph 10:27 Follow up: Response: No adverse reaction ph 09:55 Drug: D50W IVP 50 ml Route: IVP; Site: left subclavian; ph 11:00 Follow up: Response: No adverse reaction ph 10:15 Drug: Aspirin CO Suppository 300 mg Route: CO; ph 11:00 Follow up: Response: No adverse reaction ph 10:24 Drug: Heparin (DVT/PE- Bolus per protocol) - HEParin IVP 80 units/kg {Co-Signature: hb ph (Karen Hoffman RN).} Route: IVP; Site: left subclavian; 11:00 Follow up: Response: No adverse reaction ph 10:25 Drug: Heparin (DVT/PE Drip) - ([place] [address] units, D5W IV 500 ml) 18 units/kg/hr ph {Co-Signature: hb (Karen Hoffman RN).} {Note: 1600.} Route: IV; Rate: 1 calculated rate; Site: left subclavian; 11:00 Follow up: IV Status: Infusion continued upon admission ph 11:02 Drug: morphine IVP or IV 2 mg Route: IVP; Infused Over: 4 mins; Site: left subclavian; ph 11:30 Follow up: Response: No adverse reaction ph 11:30 Drug: vancoMYCIN IVPB 15 mg/kg Route: IVPB; Site: left subclavian; ph 13:30 Follow up: Response: No adverse reaction; IV Status: Completed infusion ph 11:41 Not Given (Physician Discretion): NS 0.9% IV 500 ml IV at bolus once ph 19:31 Not Given (Other Intervention Used): Glycopyrrolate 0.2 mg IV at bolus bolus ph Medication: 08:14 VIS not applicable for this client. ph Outcome: 10:50 Decision to Hospitalize by Provider. bs3 15:42 Patient left the ED. mm9 15:42 Admitted to Med/surg accompanied by nurse, accompanied by tech, family with patient, ph via stretcher, room 211, with oxygen, with chart, Report called to Ivy HOLM 15:42 Condition: stable 15:42 Instructed on the need for admit. Signatures: [facility] Merari Bermeo RN RN ph Karen Hoffman RN RN hb Belem Galvan RN RN ll1 Srinivasa Vigil MD MD bs3 Barb Velasco mm9 Karen Hoffman RN Corrections: (The following items were deleted from the chart) 08:08 08:02 Pulse 90bpm; Resp 27bpm; Pulse Ox 100% Non-rebreather mask; ll1 ll1 08:13 08:02 BP 46 / 22; Pulse 90bpm; Resp 27bpm; Pulse Ox 100% Non-rebreather mask; ll1 ll1 09:34 09:21 BP 5 / ???; 90 kg; Height 5 ft. 8 in.; BMI: 30.1; hb hb 10:48 10:36 BP 104 / 58; Pulse 84bpm; Resp 30bpm; Pulse Ox 100% 02 45lpm BiPAP; ph ph 12:26 09:45 Assisted provider with central line placement. Set up central line tray. Triple ph lumen line placed in left internal jugular. Line placed by Srinivasa Vigil MD Placement verified by CXR, blood return, Dressed with Tegaderm, Patient tolerated well. Before procedure, did Practitioner(s) obtain informed consent? Yes. Patient \T\ family education about procedure, CLABSI prevention and S/S of infection? Yes. Time-out/Briefing performed prior to start of procedure? Yes. Was handwashing/sanitizing done immediately prior to procedure? Yes. Was patient positioned to in a way to prevent air embolism? Yes. Was procedure site sterilized? Yes, with chlorhexidine. Was the site allowed to dry? Yes. Was local anesthetic and/or sedation utilized? Yes. During the procedure, did the Practitioner(s) maintain a sterile field? Yes. Were unused ports clamped during insertion? Yes. Was a 2nd qualified MD obtained after 3 unsuccessful insertion attempts? N/A. Was blood aspirated from each lumen? Yes. After the procedure, did the Practitioner(s) clean the site and apply a sterile dressing? Yes. ph
[2023-03-12] MEDS ORDERED: MORPHINE 2 MG/ML SYR ONE (10:58)
--- NOTE | 2023-03-12 11:38 | RAD REPORT ---
EXAM DESCRIPTION: CT - Head Brain Wo Cont - 03/12/2023 11:29 am CLINICAL HISTORY: Alteration of awareness/confusion. Declining mental state COMPARISON: None TECHNIQUE: Computed axial tomography of the head was obtained. IV contrast was not requested. All CT scans are performed using dose optimization technique as appropriate and may include automated exposure control or mA/KV adjustment according to patient size. FINDINGS: An intracranial bleed is not seen The ventricles are normal in caliber No extra-axial fluid collection is noted. No significant hypodensity within the brain Fluid within the sinuses/ mastoids is not seen. IMPRESSION: No acute intracranial abnormality is seen If patient's symptoms persist MRI of the brain would be recommended
--- NOTE | 2023-03-12 13:20 | RAD REPORT ---
EXAM DESCRIPTION: USExtrem Venous W Compress Bil03/12/2023 12:48 pm CLINICAL HISTORY: Leg swelling COMPARISON: none FINDINGS: The left common femoral, superficial femoral, greater saphenous, popliteal and posterior t ibial veins are compressible and demonstrate augmentation. Doppler demonstrates good flow. Echogenic material consistent with acute thrombus is present throughout the right superficial femoral vein. Thrombus is mostly occlusive. Additional nonocclusive thrombus within right common femoral vein Right greater saphenous and right popliteal veins patent Grayscale, color and spectral analysis performed on all vessels IMPRESSION: Acute thrombus right common femoral and right superficial femoral veins
[2023-03-12] MEDS ORDERED: ACETAMINOPHEN 500 MG TAB PO PRN (13:29)
[2023-03-12] MEDS ORDERED: LORazepam 2 MG/ML VIAL IV PRN (13:29)
[2023-03-12] MEDS ORDERED: ONDANSETRON 4 MG/2 ML VIAL IV PRN (13:29)
[2023-03-12] MEDS ORDERED: MORPHINE 2 MG/ML SYR IV PRN (13:29)
--- NOTE | 2023-03-12 13:39 | P.HP ---
Certification for Inpatient Patient admitted to: Inpatient With expected LOS: >2 Midnights Patient will require the following post-hospital care: Hospice Practitioner: I am a practitioner with admitting privileges, knowledge of patient current condition, hospital course, and medical plan of care. Services: Services provided to patient in accordance with Admission requirements found in Title 42 Section 412.3 of the Code of Federal Regulations Patient History Date of Service: 03/12/23 Reason for admission: Acute Respiratory Failure History of Present Illness: Patient is a 72-year-old female who was admitted to [facility] from [facility]. Patient was found to have acute respiratory failure when patient was admitted to [facility]. Patient was also found to have congestive heart failure exacerbation. Patient was discharged to [facility] about a week ago. Patient has been really weak and gets really short of breath whenever she ambulates. She has been getting really dizzy as well. Patient's daughter noticed that she was having more difficulty swallowing her food. Yesterday she was pocketing a lot of her food. They gave her a shake and she drank very little of it. This morning when patient's nurse came on to do a shift she noticed that the patient had whitish frothy sputum. Patient was hav ing a hard time breathing. They spoke to the family and they recommended EMS to be called out. When EMS arrived patient's oxygen saturations were 70% on 3 L. Patient was brought into our emergency room and patient was placed on BiPAP. Patient was given morphine. Patient is in respiratory distress. I spoke to patient's as well as patient's daughter and they do not want any aggressive treatment at this point. They are wanting to proceed with hospice care. Discussed the case with case management and we will arrange for hospice care. Home medications list reviewed: Yes - Past Medical/Surgical History Has patient received pneumonia vaccine in the past: No Diabetic: No -: Heart failure -: Respiratory failure Past Surgical History: Unable to obtain - Family History Father Family History: Reviewed- Non-Contributory - Social History Smoking Status: Unknown if ever smoked Alcohol use: No CD- Drugs: No Review of Systems is unable to be obtained Physical Examination - Vital Signs Temperature: 98 F Blood Pressure: 100/60 Pulse: 100 Respirations: 24 Pulse Ox (%): 90 - Physical Exam General: Unresponsive, Other (BIPAP placed) HEENT: Atraumatic, Normocephalic Neck: Supple, 2+ carotid pulse no bruit, JVD not distended Respiratory: Diminished, Rhonchi/gurgles Cardiovascular: Regular rate/rhythm, Normal S1 S2 Gastrointestinal: Normal bowel sounds, Soft and benign, Non-distended Musculoskeletal: No clubbing, No swelling Integumentary: No rashes Neurological: Other (Unable to follow commands) Lymphatics: No axilla or inguinal lymphadenopathy - Studies Laboratory Data (last 24 hrs) 03/12/23 08:32: Glucose 70 L 03/12/23 08:32: PT 11.0, INR 1.00, APTT 19.2 L 03/12/23 08:32: Sodium 138, Potassium 5.0, BUN 111 H, Creatinine 2.80 H, Glucose 70 L, Total Bilirubin 0.6, AST 41 H, ALT 42, Alkaline Phosphatase 129 H 03/12/23 08:32: WBC 11.20 H, Hgb 13.3, Hct 42.4, Plt Count 141 L Assessment & Plan - Problems (Diagnosis) (1) Acute respiratory failure Current Visit: Yes Status: Acute (2) Admission for palliative care Current Visit: Yes Status: Acute (3) CHF (congestive heart failure) Current Visit: Yes Status: Acute (4) Aspiration into lower respiratory tract Current Visit: Yes Status: Acute - Plan Plan: 1. Proceed with hospice care. 2. Supportive care with Ativan and morphine 3. Continue with medication for secretions 4. Suctioned to bedside 5. GI DVT prophylaxis Discharge Plan: Home Plan to discharge in: Greater than 2 days - Advance Directives Does patient have a Living Will: No Does patient have a Durable POA for Healthcare: No - Code Status/Comfort Care Code Status Assessed: Yes Code Status: Do Not Attempt Resuscitat Comfort Measures: Hospice Care Critical Care: No Time Spent Managing PTS Care (In Minutes): 55
[2023-03-12] MEDS ORDERED: NA CHLORIDE 0.9% 1,000 ML IV SCH (14:00)
[2023-03-12 15:59] VITALS: O2SAT 100
[2023-03-12 16:06] VITALS: BP 111/53
[2023-03-12 16:15] VITALS: BMI 30.2
[2023-03-12 18:28] VITALS: TEMP 97.9
--- NOTE | 2023-03-14 07:58 | EKG ---
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
== END 2023-03-12 18:41 | disposition hospice, inpatient (51) | DRG 951 ==
LOC: ER 07:55 → ERHOLD 13:29 → 2ND 15:06
PROVIDERS: ADMIT Hospitalist; ATTEND Hospitalist
PROC: 02HV33Z Insertion of Infusion Device into Superior Vena Cava, Percutaneous Approach (ICD-10-PCS; principal; 2023-03-12)
DX: Z51.5 Encounter for palliative care (principal); J96.00 Acute respiratory failure, unspecified whether with hypoxia or hypercapnia; I13.0 Hypertensive heart and chronic kidney disease with heart failure and stage 1 through stage 4 chronic kidney disease, or unspecified chronic kidney disease; I50.9 Heart failure, unspecified; N18.9 Chronic kidney disease, unspecified; E11.22 Type 2 diabetes mellitus with diabetic chronic kidney disease; K21.9 Gastro-esophageal reflux disease without esophagitis; E78.00 Pure hypercholesterolemia, unspecified; T17.928A Food in respiratory tract, part unspecified causing other injury, initial encounter; Z66 Do not resuscitate; Z88.8 Allergy status to other drugs, medicaments and biological substances; Z99.89 Dependence on other enabling machines and devices; Z90.49 Acquired absence of other specified parts of digestive tract; Z90.710 Acquired absence of both cervix and uterus; Z91.048 Other nonmedicinal substance allergy status
CPT/HCPCS: 36415; 36680; 70450; 71045; 80053; 82805; 82947; 83605; 83880; 84443; 84484; 85025; 85379; 85610; 85730; 87040; 87811; 93005; 93970; 94660; 99291; 99292; J1644; J1720; J2185; J2270; J2310; J3101; J7030; J7040; J7050

== ENCOUNTER 2023-03-12 18:58 | Inpatient (IN) | payer OTHER ==
[2023-03-12] MEDS ORDERED: ACETAMINOPHEN 650MG/RECT SUPP PR PRN (19:33)
[2023-03-12] MEDS ORDERED: LORazepam 2 MG/ML VIAL IV PRN (19:33)
[2023-03-12] MEDS ORDERED: BISACODYL 10 MG RECTAL SUPP PR PRN (19:33)
[2023-03-12] MEDS ORDERED: ONDANSETRON 4 MG/2 ML VIAL IV PRN (19:33)
[2023-03-12] MEDS ORDERED: MORPHINE 2 MG/ML SYR IV PRN (19:33)
[2023-03-12 19:37] VITALS: BMI 30.2
--- OUTSIDE RECORDS SUMMARY | 2023-03-12 19:56 | XMS REPORT | Continuity of Care Document ---
:1950 Author Organization [facility] t Address [address] [facility] [address] [place] [address] Care Team Providers Name Role Phone Jocelyn Mathew MD Primary Care Physician [id number] Attending Clinician Unavailable Elder Jurado Attending Clinician Unavailable KIERA STOVER Attending Clinician Unavailable KIERA STOVER Attending Clinician Unavailable OGUNLANA, AFSHAN A Attending Clinician Unavailable COY BARRAGAN Attending Clinician Unavailable COY BARRAGAN Attending Clinician Unavailable MAURI JIMÉNEZ Attending Clinician Unavailable Jocelyn Mathew MD Attending Clinician Doctor Unassigned, [place] Attending Clinician Unavailable Naomi Graham RN Attending [...] Clinician David BURK, Gopi Attending Clinician Dennis BRUK, Quan Attending Clinician Rhiannon BURK, Elder Attending Clinician Lavonne BURK, Allison Renee Attending Clinician [phone] Joshua [facility], Brittni Esquivel Attending Clinician Coy Barragan DO Attending Clinician Katarzyna Anderson MA Attending Clinician Unavailable NICOLE WEATHERS Attending Clinician Unavailable Nicole Weathers MD Attending Clinician VALENTINA PAVON Attending Clinician Unavailable Fabiana AARON, Alisa Esquivel Attending Clinician ALISA JUNG Attending Clinician Unavailable JESI KEATING Attending Clinician Unavailable Rose Wisdom MD Attending Clinician [phone] Jesi Keating DO Attending Clinician ORLIN CADET Attending Clinician Unavailable Nayeli REZA, Afshan A Attending Clinician [phone] Valentina Mckeon Attending Clinician Leonel RT, Meron Wooten Attending Clinician Unavailable Blane [facility], Gisele Maddox Attending Clinician Unavailable TIANA MIJARES Attending Clinician Unavailable Tiana Mijares MD Attending Clinician RADIOLOGY Attending Clinician Unavailable Radiology Attending Clinician Unavailable Robyn Mock Attending Clinician Ebrahim SUPERVISOR RICE MILLING, Rania Attending Clinician EBRAHIM, RANIA Attending Clinician Unavailable Unknown, Attending Attending Clinician Unavailable Orlin Cadet MD Attending Clinician Mauri Jiménez MD Attending Clinician Therapist, [facility] Pulmonary Attending Clinician Unavailable Therapist, [facility] Respiratory Attending Clinician Unavailable Pob, [facility] Lab Main Attending Clinician Unavailable Visit, [facility] Nurse Attending Clinician Unavailable 2, [facility] Lab Attending Clinician Unavailable ALLISON BANERJEE Attending Clinician Unavailable Vaccine, [facility] Family Medicine Attending Clinician Unavailable Chad Davis RN A Attending Clinician Unavailable SARAH TERAN Attending Clinician Unavailable SARAH TERAN Attending Clinician Unavailable Jaja Neri Attending Clinician Johnny FITZPATRICK, Mildred A Attending Clinician Unavailable Moises Balderrama PT, Yuliana Attending Clinician Unavailable CRISTI CALLEJAS Attending Clinician Unavailable Cristi Callejas MD Attending Clinician Pippa SUPERVISOR RICE MILLING, Blanca Attending Clinician Dalila Erickson A Attending Clinician DALILA DIANA Attending Clinician Unavailable MORGAN MARTELL Attending Clinician Unavailable Nurse, [facility] Pob Immunization Attending Clinician Unavailable Morgan Martell DO Attending Clinician BLANCA DAS Attending Clinician Unavailable Enio Moe Attending Clinician Unavailable MIRZA DRIVER Attending Clinician Unavailable Provider, [facility] Urgent Care Attending Clinician Unavailable Anejoce SUPERVISOR RICE MILLING, Tia Attending Clinician TIA HARDY Attending Clinician Unavailable Pc, [facility] Echo Room 1 - Attending Clinician Unavailable Ramesh Fernandez MD Attending Clinician Lab, [facility] Fam Pob I Attending Clinician Unavailable Nurse, [facility] Fam Attending Clinician Unavailable Haroldo Alvarado MD Attending Clinician Karen Payton PT Attending Clinician Unavailable Anita Watt PTA Attending Clinician Unavailable Ramesh Francois MD Attending Clinician Benji Perez Attending Clinician [id number] Admitting Clinician Unavailable MIKE CAMPOS Admitting Clinician Unavailable Mike Campos MD Admitting Clinician GOPI ELIAS Admitting Clinician Unavailable Gopi Elias MD Admitting Clinician NICOLE WEATHERS Admitting Clinician Unavailable Nicole Weathers MD Admitting Clinician JESI KEATING Admitting Clinician Unavailable Jesi Keating DO Admitting Clinician VALENTINA PAVON Admitting Clinician Unavailable ORBYN MOCK Admitting Clinician Unavailable COY BARRAGAN Admitting Clinician Unavailable JOCELYN MATHEW Admitting Clinician Unavailable MAURI JIMÉNEZ Admitting Clinician Unavailable ALLISON BANERJEE Admitting Clinician Unavailable BLANCA DAS Admitting Clinician Unavailable Payers Payer Name Policy Type Policy Number Effective Date Expiration Date S [facility] [id number] [facility] [id number] 2021 [facility] 00:00:00 O HU[employer] MEDICARE ERS [id number] 2017 00:00:00 Problems Condition Condition Condition Status [...] lung 1-22 ity of disease disease 00:00: [place] 00 [facility] Branch Chronic Chronic Disease Active 2021-11 Univers interstiti interstiti 1-22 it y of al al 00:00: [place] pneumonia pneumonia 00 [facility] Branch COVID-19 COVID-19 Disease Active 2021-11 Unive rs long long 1-22 ity of hauler hauler 00:00: [place] [facility] Branch Pulmonary Pulmonary Disease Active 2021-11 Uni vers nodule nodule -22 ity of 00:00: [place] [facility] Branch 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 1-22 ity of kidney kidney 00:00: [place] disease disease 00 [facility] Branch 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 0-20 ity of of lumbar of lumbar 00:00: [facility] s region region 00 Medical without without Branch neurogenic neurogenic claudicati claudicati on on Pleural Pleural Disease Active 2021-11 Univers effusion effusion 0-20 ity of 00:00: [place] 00 [facility] Branch Acquired Acquired Disease Active 2021-11 Unive rs hypothyroi hypothyroi 0-20 it y of dism dism 00:00: [place] 00 [facility] Branch Hypoxia Hypoxia Disease Active 2021-11 Univers 0-20 ity of 00:00: [place] [facility] Branch Chronic Chronic Disease Active 2021-11 Univers pain pain 0-20 ity of syndrome syndrome 00:00: [place] 00 [facility] Branch Obesity Obesity Disease Active Univers (BMI (BMI 9-04 ity of 30-39.9) 30-39.9) 00:00: [place] 00 [facility] Branch Fever Fever Disease Active Univers 9-04 ity of 00:00: [place] 00 [facility] Branch 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 00:00: [place] block) block) 00 Medical Branch SOB SOB Disease Active Univers (shortness (shortness 9-03 it y of of breath) of breath) [place]:00[place] 00 [facility] Branch Hip pain Hip pain Disease Active Unive rs 6-28 ity of 00:00: [place] 00 Medical Branch Elevated Elevated Disease Active Unive rs brain brain 6-28 ity of natriureti natriureti 00:00[place] c peptide c peptide 00 [facility] (BNP) (BNP) Branch level level Acute on Acute on Disease Active Unive rs chronic chronic 6-28 ity of diastolic diastolic 00:00: [place] CHF CHF 00 Medical (congestiv (congestiv Br anch e heart e heart failure), failure), NYHA class NYHA class 3 3 VARNER VARNER Disease Active Univers (dyspnea (dyspnea 6-28 ity of on on 00:00: [place] exertion) exertion) 00 [facility] Branch TRENA (acute TRENA (acute Disease Active U nivers kidney kidney 6-27 ity of injury) injury) 00:00: [place] Medical Branch Chronic Chronic Disease Active Univers kidney kidney 4-11 ity of disease-mi disease-mi 00:00[place] neral and neral and 00 [facility] bone bone Branch disorder disorder Familial Familial Disease Active [facility] rs hyperchole hyperchole 4-11 it y of sterolemia sterolemia 00:00: [place] 00 [place] Hypertensi Hypertensi Disease Active U nivers ve heart ve heart 4-11 ity of and and 00:00: [place] chronic chronic 00 Medical kidney kidney Branch disease disease with heart with heart failure failure and stage and stage 1 through 1 through stage 4 stage 4 chronic chronic kidney kidney disease, disease, or or unspecifie unspecifie d chronic d chronic kidney kidney disease disease Chronic Chronic Disease Active Univers heart heart 1-20 ity of failure failure 00:00: [place] with with 00 Medical preserved preserved Bran ch ejection ejection fraction fraction SERGE on SERGE on Disease Active Univers CPAP CPAP 1-20 ity of 00:00: [place] Medical Branch Hyperlipid Hyperlipid Disease Active U nivers emia, emia, 1-20 ity of unspecifie unspecifie 00:[place]: [place] d d 00 Medical hyperlipid hyperlipid Br anch emia type emia type 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 1-20 it y of a a 00:00: [place] Medical Branch Diffuse Diffuse Disease Active Univers [...] ity of essential essential 00:00[place] 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 [...] o f adverse 00:00: weakness [place] reaction Medical s Branch HYDRALAZ DRUG Active Other-Cmnt Univ ers INE INGREDI 07-30 ity of 00:00: [place] 00 Medical Branch Amlodipi Propensi Active Swelling Univ ers ne ty to 07-27 ity of adverse 00:00: [place] reaction Medical s Branch AMLODIPI DRUG Active Swelling Univer s NE INGREDI 07-27 ity of 00:00: [place] 00 Medical Branch No Known DA Active U 2019- [facility] Allergie 12-13 [place] s 00:00: [place] 00 [facility] No Known DA Active U 2019- [facility] Allergie 2- [place] 00:00: [place] 00 [facility] Atorvast Propensi Active Unknown - Uni vers atin ty to See comments [...] s Branch REPAGLIN DRUG Active High Rash 2017-11 Univers AMRIK INGREDI 0-10 ity of 00:00: [place] 00 Medical Branch Iodine Propensi Active Hives 2014-11 Allergic Univer s ty to 0-16 to ity of adverse 00:00: injected [place] reaction Iodine, [facility] s not Branch topical IODINE DRUG Active Hives 2014-11 Univers INGREDI 0-16 ity of 00:00: [place] 00 Medical Branch Family History Family Member Diagnosis Comments Start Date Stop Date Source Natural brother Diabetes Universit y of [facility] Natural brother Hypertension Univers ity of [place] [facility] [place] Other University [facility] Natural sister Diabetes [facility] [place] [facility] Social History Social Habit Start Date Stop Date Quantity Comments Source History SDOH Social Unive rsity of Connections Get [place] Med ical Together Branch History SDOH Social Unive rsity of Connections Religion [place] [facility] History SDOH Social Unive rsity of Connections [place] Medical Membership Branch History SDOH Social Unive rsity of Connections [place] Medical Meetings Branch History SDOH University o f Housing Places [facility] Lived Branch Exposure to 2023-02-13 2023-02-23 Not sure University of SARS-CoV-2 (event) 00:00:00 09:09:[address] [facility] [place] Branch Alcohol intake 2023-02-23 2023-02-23 Current University of 00:00:00 00:00:00 non-drinker of [facility] alcohol Branch (finding) History SDOH 2023-02-23 2023-02-23 1 University o f Alcohol Frequency 00:00:00 00:00:00 [place] M edical Branch History SDOH 2023-02-23 2023-02-23 0 University o f Alcohol Std Drinks 00:00:00 00:00:00 [place] Medical Branch History SDOH 2023-02-23 2023-02-23 1 University o f Alcohol Binge 00:00:00 00:00:00 [place] Medic al Branch History SDOH Social 2023-02-23 2023-02-23 4 Unive rsity of Connections Phone 00:00:00 00:00:00 [place] M edical Branch History SDOH Social 2023-02-23 2023-02-23 3 Unive rsity of Connections Living 00:00:00 00:00:00 [place] Medical Branch History SDOH 2023-02-23 2023-02-23 0 University o f Physical Activity 00:00:00 00:00:00 [place] M edical DPW Branch History SDOH 2023-02-23 2023-02-23 0 University o f Physical Activity 00:00:00 00:00:00 [place] M edical MPS Branch History SDOH 2023-02-23 2023-02-23 5 University o f Financial 00:00:00 00:00:00 [place] Medical Branch History SDOH 2023-02-23 2023-02-23 2 University o f Housing Unable to 00:00:00 00:00:00 [place] M edical Pay Branch History SDOH 2023-02-23 2023-02-23 2 University o f Housing Homeless 00:00:00 00:00:00 [facility] dical Last Year Branch History SDOH Food 2023-02-23 2023-02-23 1 Univers ity of Worry 00:00:00 00:00:00 [place] Medical Branch History SDOH Food 2023-02-23 2023-02-23 1 Univers ity of Scarcity 00:00:00 00:00:00 [place] Medical Branch History SDOH 2023-02-23 2023-02-23 2 University o f Transport Med 00:00:00 00:00:00 [place] Medic al Branch History SDMS 2023-02-23 2023-02-23 2 University o f Transport Non-Med 00:00:00 00:00:00 [facility] edical Branch Tobacco use and 2023-01-31 2023-01-31 Smokeless Universit y of exposure 00:00:00 00:00:00 tobacco non-user [facility] dical Branch Education 2022-05-02 2022-05-02 13 [facility] 00:00:00 00:00:00 [facility] Sex [birth year] Universit y of 00:00:00 00:00:00 [facility] Smoking Status Start Date Stop Date Source Never smoked tobacco [facility] Medications Ordered Filled Start Stop Current Ordering [...] Medical mg-mg-marilyn Branch on Tab bumetanide Yes [id number] 2mg Take 1 Univers 2 mg tablet 4-28 tablet by ity of 00:00: mouth in [place] 00 the Medical morning. Branch Insulin 0 Yes [id number] INJECT 25 U nivers Glargine 4-28 UNITS ity of (LANTUS 00:00: [place]BCUTANEO [place] SOLOST[place] 00 USLY TWICE Medic al U-100 DAILY Branch INSULIN) 100 unit/mL (3 mL) injection spironolact 0 Yes [id number] 12.5mg Take 0.5 Univers one 25 mg 4-28 tablets by ity of tablet 00:00: mouth in [place] 00 the Medical morning. Branch insulin 0 Yes [id number] 7U inject 7 Univers lispro, 4-28 9106 Units ity of human, 00:00: under the [place] (ADMELOG 00 skin in Medical U-100 the Branch INSULIN morning LISPRO) 100 and 7 unit/mL Units at injection noon and 7 Units in the evening. inject before meals. bumetanide 0 Yes [id number] 2mg Take 1 Univers 2 mg tablet 4-28 tablet by ity of 00:00: mouth in [place] the Medical morning. Branch Insulin 0 Yes [id number] INJECT 25 U nivers Glargine 4-28 UNITS ity of (LANTUS 00:00: [place]ANEO [place] SOLOST[place] 00 USLY TWICE Medic al U-100 DAILY Branch INSULIN) 100 unit/mL (3 mL) injection spironolact 0 Yes [id number] 12.5mg Take 0.5 Univers one 25 mg 4-28 tablets by ity of tablet 00:00: mouth in [place] the Medical morning. Branch insulin 2022-0 Yes [id number] 7U inject 7 Univers lispro, 4-28 9106 Units ity of human, 00:00: under the [place] (ADMELOG 00 skin in Medical U-100 the Branch INSULIN morning LISPRO) 100 and 7 unit/mL Units at injection noon and 7 Units in the evening. inject before meals. bumetanide 2022-0 Yes [id number] 2mg Take 1 Univers 2 mg tablet 4-28 tablet by ity of 00:00: mouth in [place] 00 the Medical morning. Branch Insulin 2022-0 Yes [id number] INJECT 25 U nivers Glargine 4-28 UNITS ity of (LANTUS 00:00: [place] SOLOST[place] 00 USLY TWICE Medic al U-100 DAILY Branch INSULIN) 100 unit/mL (3 mL) injection spironolact Yes [id number] 12.5mg Take 0.5 Univers one 25 mg 4-28 tablets by ity of tablet 00:00: mouth in [place] 00 the Medical morning. Branch insulin Yes [id number] 7U inject 7 Univers lispro, 4-28 9106 Units ity of human, 00:00: under the [place] (ADMELOG 00 skin in Medical U-100 the Branch INSULIN morning LISPRO) 100 and 7 unit/mL Units at injection noon and 7 Units in the evening. inject before meals. bumetanide Yes [id number] 2mg Take 1 Univers 2 mg tablet 4-28 tablet by ity of 00:00: mouth in [place] 00 the morning. Branch Insulin Yes [id number] INJECT 25 U nivers Glargine 4-28 UNITS ity of (LANTUS 00:00: [place]BCUTANEO [place] SOLOSTAR 00 USLY TWICE Medic al U-100 DAILY Branch INSULIN) 100 unit/mL (3 mL) injection spironolact Yes [id number] 12.5mg Take 0.5 Univers one 25 mg 4-28 tablets by ity of tablet 00:00: mouth in [place] 00 the morning. Branch insulin Yes [id number] 7U inject 7 Univers lispro, 4-28 9106 Units ity of human, 00:00: under the [place] (ADMELOG 00 skin in Medical U-100 the Branch INSULIN morning LISPRO) 100 and 7 unit/mL Units at injection noon and 7 Units in the evening. inject before meals. tamsulosin 2022- Yes [id number] .4mg Take 1 Univers 0.4 mg 24 4- 05-29 capsule by ity of hr capsule 00:00: 04:59 [place] :00 bedtime Medical for 30 Branch days. tamsulosin 2022- Yes [id number] .4mg Take 1 Univers 0.4 mg 24 4-28 05-29 capsule by ity of hr capsule 00:00: 04:59 [place] 00 :00 bedtime Medical for 30 Branch days. tamsulosin 2022- Yes [id number] .4mg Take 1 Univers 0.4 mg 24 -02 04-29 capsule by ity of hr capsule 00:00: 04:59 [place] 00 :00 bedtime Medical for 30 Branch days. tamsulosin 2022- Yes [id number] .4mg Take 1 Univers 0.4 mg 24 -02 04-29 capsule by ity of hr capsule 00:00: 04:59 [place] 00 :00 bedtime Medical for 30 Branch days. predniSONE 2022- Yes [id number] Take 2 Univers 20 mg 4-28 05-08 tablets by ity of tablet 00:00: 04:59 mouth [place] 00 :00 daily for Medical 3 days, Branch THEN 1 tablet daily for 3 days, THEN 0.5 tablets daily for 3 days. predniSONE 2022- Yes [id number] Take 2 Univers 20 mg 4-28 -08 tablets by ity of tablet 00:00: 04:59 mouth [place] 00 :00 daily for Medical 3 days, Branch THEN 1 tablet daily for 3 days, THEN 0.5 tablets daily for 3 days. predniSONE 2022- Yes [id number] Take 2 Univers 20 mg 4-28 05-08 tablets by ity of tablet 00:00: 04:59 mouth [place] 00 :00 daily for Medical 3 days, Branch THEN 1 tablet daily for 3 days, THEN 0.5 tablets daily for 3 days. predniSONE 2022- Yes [id number] Take 2 Univers 20 mg 4-28 05-08 tablets by ity of tablet 00:00: 04:59 mouth [place] 00 :00 daily for Medical 3 days, Branch THEN 1 tablet daily for 3 days, THEN 0.5 tablets daily for 3 days. sodium 0 2022- No 4mL 4 mL, Univers chloride 7% 03-02 Inhalation i ty of (HYPER-CHAY) 21:00: 16:39 , QID, [place] nebulizer 00 :46 First dose Medi dk solution 4 on [place] Branch mL 03/02/23 at 1600, Until Discontinu ed, Routine tamsulosin 0 Yes .4mg 0.4 mg, Univ ers (FLOMAX) 4-27 Oral, QHS, ity o f capsule 0.4 [...] [place] mg 00 :00 dose, On [facility] 02/28/23 at 0100, Routine KCL 2022- No 40meq 40 mEq, Univers (KLOR-CON 02-27 Oral, ity of M20) tablet 14:00: 13:50 ONCE, 1 [place] 40 mEq 00 :00 dose, On [facility] 02/27/23 at 0900, Routine bumetanide 2022- No 2mg 2 mg, Unive rs (BUMEX) 02-27 Oral, ity of tablet 2 mg 14:00: 22:00 QAM+PM, [place] 00 :40 First dose Medical (after Branch last modificati on) on [facility] 02/27/23 at 0900, Until Discontinu ed, Routine insulin 2022- No 35U 35 Units, Univ ers glargine 02-27 Subcutaneo ity of (LANTUS 01:00: 14:51 [place], Q12H, [place] U-100) 00 :04 First dose Medical injection (after Branch 35 Units last modificati on) on Mon02/26/23 at 2000, Until Discontinu ed, Routine insulin 2022- No 6U 6 Units, Unive rs lispro 02-26 Subcutaneo ity of (human) 18:30: 17:31 us, ONCE, [place] (HumaLOG 00 :00 1 dose, On Medic [...] 00 :59 First dose Medical injection on [facility] Branch 25 Units 02/25/23 at 2000, Until Discontinu ed, Routine NaCl 0.9% 2022- No 1000mL at 100 Uni vers (NS) IV 02-25 mL/hr, IV ity of infusion 20:45: 06:00 Infusion, [place] 1,000 mL 00 :00 ONCE, 1 Medical dose, On Branch 02/25/23 at 1545, Routine dextrometho Yes 5mL 5 mL, Unive rs rphan-guaif 02-25 Oral, ity of enesin 20:10: Q6HPRN, [place] (ROBITUSSIN 18 Starting Medi dk DM) 10-100 on [facility] Branch mg/5 mL 02/25/23 at solution 5 1510, mL Until Discontinu ed, Routine, Cough HYDROcodone Yes 1{tbl} 1 tablet, Univers -acetaminop 02-25 Oral, ity of hen (NORCO 03:24: Q6HPRN, [place] 5) 5-325 mg 14 Starting Medi dk tablet 1 on Fri Branch tablet 02/24/23 at 2224, Until Discontinu ed, Routine, Pain (scale 7-10) bumetanide 2022- No 2mg 2 mg, Slow Univers (BUMEX) 02-25 IV Push, ity of injection 2 01:00: 23:30 Q12H, [place] mg 00 :12 First dose Medical (after Branch last reorder) on Mon02/24/23 at 2000, Until Discontinu ed, Routine Sliding 2022-0 Yes Subcutaneo Univ ers Scale 02-24 us, TID ity of Insulin - 22:00: [...] No 2mg 2 mg, Slow Univers (BUMEX) 02-2421 IV Push, ity of injection 2 17:00: [...] heparin 2022-0 Yes 5000U 5,000 Univers (porcine) 4-21 Units, ity of injection 01:00: [place]cut[place]o [place] 5,000 Units 00 us, Q12H, Med ical First dose Branch on [facility] 02/23/23 at 2000, Until Discontinu ed, Routine Sliding 2022-0 2022- No Subcutaneo Uni vers Scale 02-23 04-21 us, Q6H, ity of Insulin - 14:45: 17:27 First dose [place] Lispro 00 :57 on [facility] (HumaLOG) + 02/23/23 at anch Fsbg 0945, Testing Until Discontinu ed, Routine spironolact Yes 12.5mg 12.5 mg, Univers one 4-20 Oral, ity of (ALDACTONE) 14:00: DAILY, [place] tablet 12.5 00 First dose Me dical mg on [facility] Branch 02/23/23 at 0900, Until Discontinu ed, Routine predniSONE Yes 40mg 40 mg, Unive rs (DELTASONE) 4-20 Oral, ity of tablet 40 14:00: DAILY, [place] mg 00 First dose Medical on [facility] Branch 02/23/23 at 0900, Until Discontinu ed, Routine bumetanide 2022- No 1mg 1 mg, Slow Univers (BUMEX) 02-23 04-20 IV Push, ity of injection 1 13:41: 15:11 ONCE, 1 [place] mg 00 :00 dose, On Medical [facility] 02/23/23 at 0845, ROSELYN gabapentin 0 Yes 600mg 600 mg, Uni vers (NEURONTIN) 4-20 Oral, TID, it y of capsule 600 13:15: First dose [place] mg 00 on [facility] 02/23/23 at Branch 0815, Until Discontinu ed, Routine carvediloL 0 Yes 12.5mg 12.5 mg, U nivers (COREG) 4-20 Oral, BID ity of tablet 12.5 13:15: MEALS, [place] mg 00 First dose Medical on [facility] 02/23/23 at 0815, Until Discontinu ed, Routine tiZANidine 2022- No 2mg 2 mg, Unive rs (ZANAFLEX) 02-23 Oral, ity of tablet 2 mg 13:01: 20:07 Q8HPRN, [place] 07 :13 Starting Medical on [facility] Branch 02/23/23 at 0801, Until 02/25/23 at 1507, Muscle Spasms ipratropium Yes .5mg 0.5 mg, Uni vers (ATROVENT) 02-23 Inhalation ity of 0.02 % 12:59: , Q6HPRN, [place] nebulizer 51 Starting Medica l solution on [facility] Branch 0.5 mg 02/23/23 at 0759, Until Discontinu ed, Routine, Wheezing, Shortness of Breath ipratropium 2022- No 6mL 6 mL, Univ ers -albuteroL 02-23 Inhalation it y of (DUONEB) 12:15: 12:22 , ONCE [place] 0.5 mg-3 00 :00 NOW, 1 Medical mg(2.5 mg dose, On Branch base)/3 mL [facility] nebulizer 02/23/23 at solution 6 0715, mL Routine aspirin No 325mg 325 mg, Unive rs tablet 325 02-23 Oral, ity of mg 12:00: 11:36 ONCE, 1 [place] 00 :00 dose, On Medical [facility] 02/23/23 at 0700, Routine enoxaparin No 100mg 100 mg, Un godfrey (LOVENOX) 02-23 Subcutaneo ity of injection 12:00: 11:40 [place], ONCE, [place] 100 mg 00 :00 1 dose, On Medical [facility] 02/23/23 at 0700, Routine nitroglycer No .5[in_u 0.5 Inch, Univers in (NITROL) 02-23 s] Transderma i ty of 2 % 11:15: 11:40 l (Apply [place] ointment 00 :00 To Skin), Medica l 0.5 Inch ONCE, 1 Branch dose, On [facility] 02/23/23 at 0615, ROSELYN ipratropium 2022- No 6mL 6 mL, Univ ers -albuteroL 02-23 Inhalation it y of (DUONEB) 11:00: 09:57 , ONCE [place] 0.5 mg-3 00 :00 NOW, 1 Medical mg(2.5 mg dose, [place] base)/3 mL [place] nebulizer 02/23/23 at solution 6 0600, mL Routine dextrose 2022- No 250mL 250 mL, IV U nivers [...] Yes 40mg 40 mg, Unive rs (PRILOSEC) 02-22 Oral, ity of capsule 40 14:00: DAILY, [place] mg 00 First dose Medical on Mon02/22/23 at 0900, Until Discontinu ed, Routine predniSONE 2022- No [id number] 40mg Take 2 Univers 20 mg 02-22-28 tablets by ity of tablet 00:00: 00:00 mouth in [place] 00 :[address] [facility] for 5 days. predniSONE 2022- Yes [id number] 40mg Take 2 Univers 20 mg 4-22 02-25 tablets by ity of tablet 00:00: 04:59 mouth in [place] 00 :[address] [facility] for 5 days. predniSONE 2022- Yes [id number] 40mg Take 2 Univers 20 mg 4-22 02-25 tablets by ity of tablet 00:00: 04:59 mouth in [place] 00 :00 the Medical morning Branch for 5 days. bisacodyL Yes 10mg 10 mg, Univer s (DULCOLAX) 4-18 Rectal, ity of suppository 20:17: QHSPRN, [place] 10 mg 01 Starting Medical on Mon Branch 02/21/23 at 1517, Until Discontinu ed, [...] sennosides- Yes 1{tbl} 1 tablet, Univers docusate -18 Oral, BID, ity o f sodium 03:15: First dose [place] (SENOKOT-S) 00 on Mon Medica l 8.6-50 mg 02/20/23 at Bran ch per tablet 2215, 1 tablet Until Discontinu ed, Routine bumetanide 2022- Yes [id number] 2mg Take 1 Univers 2 mg tablet 02-21- tablet by it y of 00:00: 04:59 mouth [place] 00 :00 every Medical morning Branch and evening for 30 days. carvediloL 2022- Yes [id number] 12.5mg Take 1 Univers 12.5 mg 02-21- tablet by ity of tablet 00:00: 04:59 mouth in [place] 00 :00 the Medical morning Branch and 1 tablet in the evening. Take with meals. Do all this for 30 days. bumetanide 2022- Yes [id number] 2mg Take 1 Univers 2 mg tablet 02-21-19 tablet by it y of 00:00: 04:59 mouth [place] 00 :00 every Medical morning Branch and evening for 30 days. carvediloL 2022- Yes [id number] 12.5mg Take 1 Univers 12.5 mg 4-18 05-19 tablet by ity of tablet 00:00: 04:59 mouth in [place] 00 :00 the Medical morning Branch and 1 tablet in the evening. Take with meals. Do all this for 30 days. carvediloL 2022- Yes [id number] 12.5mg Take 1 Univers 12.5 mg 4-18 05-19 tablet by ity of tablet 00:00: 04:59 mouth in [place] 00 :00 the Medical morning Branch and 1 tablet in the evening. Take with meals. Do all this for 30 days. carvediloL 2022- Yes [id number] 12.5mg Take 1 Univers 12.5 mg 4-18 05-19 tablet by ity of tablet 00:00: 04:59 mouth in [place] 00 :00 the Medical morning Branch and 1 tablet in the evening. Take with meals. Do all this for 30 days. carvediloL 2022- Yes [id number] 12.5mg Take 1 Univers 12.5 mg 4-18 05-19 tablet by ity of tablet 00:00: 04:59 mouth in [place] 00 :00 the Medical morning Branch and 1 tablet in the evening. Take with meals. Do all this for 30 days. carvediloL 2022- Yes [id number] 12.5mg Take 1 Univers 12.5 mg 4-18 05-19 tablet by ity of tablet 00:00: 04:59 mouth in [place] 00 :00 the Medical morning Branch and 1 tablet in the evening. Take with meals. Do all this for 30 days. bumetanide 2022- No [id number] 2mg Take 1 Univers 2 mg tablet 4-18 -28 tablet by it y of 00:00: 00:00 mouth [place] 00 :00 every Medical morning Branch and evening for 30 days. carvediloL Yes 12.5mg 12.5 mg, U nivers (COREG) 4-17 Oral, BID ity of tablet 12.5 22:00: MEALS, [place] mg 00 First dose Medical (after Branch last modificati on) on Mon02/20/23 at 1700, Until Discontinu ed, Routine phenoL Yes 1{spray 1 [place], Univ ers (SORE 4-17 } Oral, PRN, ity of THROAT 11:13: Starting [place] (PHENOL)) 24 on Mon Medical 1.4 % spray 02/20/23 at Br anch bottle 1 0613, [place] Until Discontinu ed, Routine, Sore throat guaiFENesin [...] [place] 00 First dose Medical on [facility] Branch 02/18/23 at 1700, Until Discontinu ed, Routine piperacilli 2022- No 3.375g 3.375 g, Univers n-tazobacta 02-18 IV ity of m (ZOSYN) 14:00: 10:33 Piggyback, [place] 3.375 g in 00 :00 Q8H ABX, 9 Med ical NaCl 0.9% doses, Branch (NS) 100 mL First dose MINI-BAG (after last reorder) on [facility] 02/18/23 at 0900, Last dose on Mon02/21/23 [...] 02/17/23 at 0930, Routine sulfur 2022- No [id number] 5mL 5 mL, Univ ers hexafluorid 02-16 Intravenou i ty of e microsphr 14:45: 14:45 s, ONCE, 1 [place] (LUMASON) 00 :00 dose, On Medica l injection 5 [place] Branch mL 02/16/23 at 0945, Routine
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 medication : NIK LÓPEZ bumetanide 2022- No 3mg 3 mg, Slow Univers (BUMEX) 02-16 IV Push, ity of injection 3 01:00: 16:05 Q12H, [place] mg 00 :50 First dose Medical (after Branch last modificati on) on Mon02/15/23 at 2000, Until Discontinu ed, Routine ipratropium Yes 3mL 3 mL, Unive rs -albuteroL 02-15 Inhalation ity of (DUONEB) 21:00: , QID, [place] 0.5 mg-3 00 First dose Medic al mg(2.5 mg on Mon base)/3 mL 02/15/23 at nebulizer 1600, solution 3 Until mL Discontinu ed, Routine bumetanide 2022- No 2mg 2 mg, Slow Univers (BUMEX) 02-15 IV Push, ity of injection 2 15:30: 17:58 Q24H, [place] mg 00 :21 First dose Medical on Mon Branch 02/15/23 at 1030, Until Discontinu ed, Routine insulin Yes 35U 35 Units, Unive rs glargine 02-15 Subcutaneo ity o f (LANTUS 13:00: us, BID, [place] U-100) 00 First dose Medical injection (after Branch 35 Units last modificati on) on Mon02/15/23 at 0800, Until Discontinu ed bumetanide 2022- No 1mg 1 mg, Slow Univers (BUMEX) 02-15 IV Push, ity of injection 1 04:00: 04:25 ONCE, 1 [place] mg 00 :00 dose, On Medical Mon Branch 02/14/23 at 2300, Routine piperacilli 2022- No [...] 0.9% dose, On Branch (NS) 100 mL e MINI-BAG 02/14/23 at 1130, Administer over 30 [...] Until Discontinu ed, Routine ERGOCALCIFE 2023-0 Yes [id number] Take 1 Univers ROL, 4-10 capsule by ity of VITAMIN D2, 00:00: mouth once [place] 1,250 mcg 00 a week Medical (50,000 Branch unit) capsule ERGOCALCIFE 2023-0 Yes [id number] Take 1 Univers ROL, 4-10 capsule by ity of VITAMIN D2, 00:00: mouth once [place] 1,250 mcg 00 a week Medical (50,000 Branch unit) capsule ERGOCALCIFE 2023-0 Yes [id number] Take 1 Univers ROL, 4-10 capsule by ity of VITAMIN D2, 00:00: mouth once [place] 1,250 mcg 00 a week Medical (50,000 Branch unit) capsule ERGOCALCIFE 2023-0 Yes [id number] Take 1 Univers ROL, 4-10 capsule by ity of VITAMIN D2, 00:00: mouth once [place] 1,250 mcg 00 a week Medical (50,000 Branch unit) capsule ERGOCALCIFE 2023-0 Yes [id number] Take 1 Univers ROL, 4-10 capsule by ity of VITAMIN D2, 00:00: mouth once [place] 1,250 mcg 00 a week Medical (50,000 Branch unit) capsule ERGOCALCIFE 2023-0 Yes [id number] Take 1 Univers ROL, 4-10 capsule by [...] at 1800, Until Discontinu ed, Routine levalbutero 3-0 2023- No 1.25mg 1.25 mg, Univers l (XOPENEX) 02-11-10 Inhalation i ty of nebulizer 23:00: 00:09 , Q6H, [place] solution 00 :40 First dose Medic al 1.25 mg on Sat [place] 02/11/23 at 1800, Until Discontinu ed, Routine
Approved by: [facility] PROVIDER FENTanyl PF 2022- No Slow IV Un godfrey (SUBLIMAZE 02-10 Push, PRN, it y of (PF)) 16:03: 16:03 Starting [place] injection 17 :17 on Fri Medical 02/10/23 at Branch 1103, Until Mon02/10/23 at 1103, Routine, Intra-op lidocaine 2022- No [...] 00 :15 First dose Medical on Fri [place] 02/10/23 at 0900, Until Discontinu ed, Routine Vancomycin 2022- No 750mg 750 mg, IV Univers 750 mg in 02-10 Piggyback, ity of NaCl 0.9% 02:00: 03:12 ONCE, 1 [place] (NS) 250 mL 00 :00 dose, On [facility] VIAL-MATE [facility] 02/09/23 [facility] at 2100, Administer over 60 Minutes, 250 mL
R kathleen for Anti-Infec tive: Documented Infection< br>Documen walt Infection Site: Respirator y
Durat ion of Therapy: 7 days methylPREDN 2022- No 40mg 40 mg, Uni vers ISolone sod 02-10 Intravenou i ty of succ 01:00: 15:34 s, BID, [place] (SOLU-MEDRO 00 :06 First dose Me dical L (PF)) (after Branch injection last 40 mg modificati on) on [facility] 02/09/23 at 2000, Until Discontinu ed, 1 mL insulin 2023-0 Yes 5U 5 Units, Univer s lispro 02-09 Subcutaneo ity of (human) 22:00: us, TID [place] (HumaLOG 00 MEALS, Medical U-100) First dose Branch injection 5 on [place] Units 02/09/23 at 1700, Until Discontinu ed, Routine bumetanide 2022- No 1mg 1 mg, Unive rs (BUMEX) 02-0911 Oral, QPM, ity o f tablet 1 mg 22:00: 21:17 First dose [place] 00 :15 on Ana Medical 02/09/23 at Branch 1700, Until Discontinu ed, Routine insulin 2022- No 40U 40 Units, Univ ers glargine [...] at 0900, Until Discontinu ed, Routine pantoprazol 2022- No 40mg 40 mg, Uni vers e 02-09 Oral, ity of (PROTONIX) 14:00: 15:05 DAILY, [place] EC tablet 00 :28 First dose Medi dk 40 mg on [place] Branch 02/09/23 at 0900, Until Discontinu ed, Routine carvediloL 2022- No 6.25mg 6.25 mg, Univers (COREG) 02-09 [...] Yes 125ug 125 mcg, U nivers ne 4-06 Oral, ity of (SYNTHROID) 11:00: QAM-0600, [place] [...] [place] 02/09/23 at 0230, Last dose on 02/18/23 at 1830, Administer over 4 Hours, 100 mL
Reas on for Anti-Infec tive: Documented Infection< br>Documen walt Infection Site: Respirator y
Durat ion of Therapy: 10 days heparin Yes 5000U 5,000 Univers (porcine) -06 Units, ity of injection 03:00: Subcutaneo [place] [...] Testing 2100, Until Discontinu ed, Routine vancomycin 0 2022- No 500mg 500 mg, IV Univers (VANCOCIN) 02-09 04-06 Piggyback, it y of 500 mg in [...] 60mg 60 mg, Uni vers isolone sod 02-09-06 Intravenou i ty of succ 01:00: 15:07 s, BID, [place] (SOLU-MEDRO 00 :29 First dose Me dical L) on Mon Branch injection 02/08/23 at 60 mg 1999, Until Discontinu ed, 2 mL acetaminoph Yes 2745 1{tbl} 1 tablet, Univers en-codeine 02-08 Oral, ity of (TYLENOL 23:00: TIDPRN, [place] #3) 300-30 01 Starting Medic al mg tablet 1 on Mon Branch tablet 02/08/23 at 1800, Until Discontinu ed, Routine, Pain (scale 4-6), Pain (scale 7-10) dextrose 2022-0 Yes 250mL 250 mL, IV Un godfrey 10% (D10W) 4-05 Infusion, ity of bolus 22:44: PRN - SEE [place] infusion 13 INSTRUCTIO Medic al 250 mL [...] IV Push, ity of (PF)) 22:42: Q6HPRN, [place] injection 4 40 Starting Medi dk mg on Mon Branch 02/08/23 at 1742, Until Discontinu ed, Routine, Nausea and Vomiting (N/V) acetaminoph Yes 650mg 650 mg, Un godfrey en 4-05 Oral, ity of (TYLENOL) 22:40: Q6HPRN, [place] tablet 650 29 Starting Medic al mg [...]
Durat ion of Therapy: 7 days levalbutero 2022- No .63mg 0.63 mg, Univers l (XOPENEX) 02-08 Inhalation i ty of nebulizer 17:30: 19:54 , Q4H, [place] solution 00 :05 First dose Medic al 0.63 mg on Mon Branch 02/08/23 at 1230, Until Discontinu ed, Routine ipratropium No .5mg 0.5 mg, Un godrfey (ATROVENT) 02-08 Inhalation it y of 0.02 % 17:30: 21:34 , Q4H, [place] nebulizer 00 :40 First dose Medi dk solution on Mon Branch 0.5 mg 02/08/23 at 1230, Until Discontinu ed, Routine piperacilli 2022- No 3.375g 3.375 g, Univers n-tazobacta 4-05 [...] 80mg 80 mg, IV U nivers (LASIX) 02-08 04-05 Push, ity of injection 15:15: 15:26 ONCE, 1 [place] 80 mg 00 :00 dose, On Mon02/08/23 Branch at 1015, [place] allopurinoL Yes [id number] 200mg Take 2 Univers 100 mg 4-03 9103 tablets by ity of tablet 00:00: mouth in [place] the Medical morning. Branch LEVOTHYROXI Yes [id number] TAKE 1 Univers NE 125 mcg 4-03 TABLET BY ity of tablet 00:00: MOUTH ONCE [place] 00 DAILY IN [facility] THE [place] MORNING LEVOTHYROXI Yes [id number] TAKE 1 Univers NE 125 mcg 4-03 TABLET BY ity of tablet 00:00: MOUTH ONCE [place] 00 DAILY IN [facility] MORNING LEVOTHYROXI Yes [id number] TAKE 1 Univers NE 125 mcg 4-03 TABLET BY ity of tablet 00:00: MOUTH ONCE [place] 00 DAILY IN [facility] THE [place] MORNING allopurinoL Yes [id number] 200mg Take 2 Univers 100 mg 4-03 9103 tablets by ity of tablet 00:00: mouth in [place] 00 the Medical morning. Branch gabapentin Yes [id number] TAKE 1 & Univers 600 mg 4-03 1/2 (ONE & ity of tablet 00:00: ONE-HALF) [place] 00 TABLETS BY Medical MOUTH Branch THREE TIMES DAILY LEVOTHYROXI Yes [id number] TAKE 1 Univers NE 125 mcg 4-03 TABLET BY ity of tablet 00:00: MOUTH ONCE [place] 00 DAILY IN [facility] MORNING allopurinoL Yes [id number] 200mg Take 2 Univers 100 mg 4-03 9103 tablets by ity of tablet 00:00: mouth in [place] 00 the Medical morning. Branch gabapentin 2022-0 Yes [id number] TAKE 1 & Univers 600 mg 4-03 1/2 (ONE & ity of tablet 00:00: ONE-HALF) [place] 00 TABLETS BY Medical MOUTH Branch THREE TIMES DAILY LEVOTHYROXI 2022-0 Yes [id number] TAKE 1 Univers NE 125 mcg 4-03 TABLET BY ity of tablet 00:00: MOUTH ONCE [place] 00 DAILY IN [facility] THE [place] MORNING allopurinoL 2022-0 Yes [id number] 200mg Take 2 Univers 100 mg 4-03 9103 tablets by ity of tablet 00:00: mouth in [place] 00 the Medical morning. Branch gabapentin 2022-0 Yes [id number] TAKE 1 & Univers 600 mg 4-03 1/2 (ONE & ity of tablet 00:00: ONE-HALF) [place] 00 TABLETS BY Medical MOUTH Branch THREE TIMES DAILY LEVOTHYROXI 2022-0 Yes [id number] TAKE 1 Univers NE 125 mcg 4-03 TABLET BY ity of tablet 00:00: MOUTH ONCE [place] 00 DAILY IN [facility] THE [place] MORNING allopurinoL 2022-0 Yes [id number] 200mg Take 2 Univers 100 mg 4-03 9103 tablets by ity of tablet 00:00: mouth in [place] 00 the Medical morning. Branch gabapentin 2022-0 Yes [id number] TAKE 1 & Univers 600 mg 4-03 1/2 (ONE & ity of tablet 00:00: ONE-HALF) [place] 00 TABLETS BY Medical MOUTH Branch THREE TIMES DAILY LEVOTHYROXI 2022-0 Yes [id number] TAKE 1 Univers NE 125 mcg 4-03 TABLET BY ity of tablet 00:00: MOUTH ONCE [place] 00 DAILY IN [facility] THE [place] MORNING allopurinoL 2022-0 Yes [id number] 200mg Take 2 Univers 100 mg 4-03 9103 tablets by ity of tablet 00:00: mouth in [place] 00 the Medical morning. Branch gabapentin 2022-0 Yes [id number] TAKE 1 & Univers 600 mg 4-03 1/2 (ONE & ity of tablet 00:00: ONE-HALF) [place] 00 TABLETS BY Medical MOUTH Branch THREE TIMES DAILY LEVOTHYROXI 2022-0 Yes [id number] TAKE 1 Univers NE 125 mcg 4-03 TABLET BY ity of tablet 00:00: MOUTH ONCE [place] 00 DAILY IN [facility] THE [place] MORNING allopurinoL 2022-0 Yes [id number] 200mg Take 2 Univers 100 mg 4-03 9103 tablets by ity of tablet 00:00: mouth in [place] 00 the Medical morning. Branch gabapentin 2022-0 Yes [id number] TAKE 1 & Univers 600 mg 4-03 1/2 (ONE & ity of tablet 00:00: ONE-HALF) [place] 00 TABLETS BY Medical MOUTH Branch THREE TIMES DAILY LEVOTHYROXI 2022-0 Yes [id number] TAKE 1 Univers NE 125 mcg 4-03 TABLET BY ity of tablet 00:00: MOUTH ONCE [place] 00 DAILY IN [facility] THE [place] MORNING allopurinoL 2022-0 Yes [id number] 200mg Take 2 Univers 100 mg 4-03 9103 tablets by ity of tablet 00:00: mouth in [place] 00 the Medical morning. Branch gabapentin 2022-0 Yes [id number] TAKE 1 & Univers 600 mg 4-03 1/2 (ONE & ity of tablet 00:00: ONE-HALF) [place] 00 TABLETS BY Medical MOUTH [place] THREE TIMES DAILY LEVOTHYROXI 2022-0 Yes [id number] TAKE 1 Univers NE 125 mcg 4-03 TABLET BY ity of tablet 00:00: MOUTH ONCE [place] 00 DAILY IN [facility] THE [place] MORNING allopurinoL 2022-0 Yes [id number] 200mg Take 2 Univers 100 mg 4-03 9103 tablets by ity of tablet 00:00: mouth in [place] 00 the Medical morning. Branch gabapentin 2022-0 Yes [id number] TAKE 1 & Univers 600 mg 4-03 1/2 (ONE & ity of tablet 00:00: ONE-HALF) [place] 00 TABLETS BY Medical MOUTH [place] THREE TIMES DAILY LEVOTHYROXI 3-0 Yes [id number] TAKE 1 Univers NE 125 mcg 4-03 TABLET BY ity of tablet 00:00: MOUTH ONCE [place] 00 DAILY IN [facility] THE [place] MORNING allopurinoL 2022-0 Yes [id number] 200mg Take 2 Univers 100 mg 4-03 9103 tablets by ity of tablet 00:00: mouth in [place] 00 the Medical morning. Branch gabapentin 2022-0 Yes [id number] TAKE 1 & Univers 600 mg 4-03 1/2 (ONE & ity of tablet 00:00: ONE-HALF) [place] 00 TABLETS BY Medical MOUTH Branch THREE TIMES DAILY LEVOTHYROXI 2023-0 Yes [id number] TAKE 1 Univers NE 125 mcg 4-03 TABLET BY ity of tablet 00:00: MOUTH ONCE [place] 00 DAILY IN [facility] THE [place] MORNING allopurinoL 2022-0 Yes [id number] 200mg Take 2 Univers 100 mg 4-03 9103 tablets by ity of tablet 00:00: mouth in [place] 00 the Medical morning. Branch gabapentin 2022-0 Yes [id number] TAKE 1 & Univers 600 mg 4-03 1/2 (ONE & ity of tablet 00:00: ONE-HALF) [place] 00 TABLETS BY Medical MOUTH [place] THREE TIMES DAILY LEVOTHYROXI 2022-0 Yes [id number] TAKE 1 Univers NE 125 mcg 4-03 TABLET BY ity of tablet 00:00: MOUTH ONCE [place] 00 DAILY IN [facility] THE [place] MORNING allopurinoL 2022-0 Yes [id number] 200mg Take 2 Univers 100 mg 4-03 9103 tablets by ity of tablet 00:00: mouth in [place] 00 the Medical morning. Branch gabapentin 2022-0 Yes [id number] TAKE 1 & Univers 600 mg 4-03 1/2 (ONE & ity of tablet 00:00: ONE-HALF) [place] 00 TABLETS BY Medical MOUTH [place] THREE TIMES DAILY LEVOTHYROXI 2022-0 Yes [id number] TAKE 1 Univers NE 125 mcg 4-03 TABLET BY ity of tablet 00:00: MOUTH ONCE [place] 00 DAILY IN [facility] THE [place] MORNING allopurinoL 2022-0 Yes [id number] 200mg Take 2 Univers 100 mg 4-03 9103 tablets by ity of tablet 00:00: mouth in [place] 00 the Medical morning. Branch gabapentin 2022-0 Yes [id number] TAKE 1 & Univers 600 mg 4-03 1/2 (ONE & ity of tablet 00:00: ONE-HALF) [place] 00 TABLETS BY Medical MOUTH [place] THREE TIMES DAILY LEVOTHYROXI 3-0 Yes [id number] TAKE 1 Univers NE 125 mcg 4-03 TABLET BY ity of tablet 00:00: MOUTH ONCE [place] 00 DAILY IN [facility] THE [place] MORNING allopurinoL 2022-0 Yes [id number] 200mg Take 2 Univers 100 mg 4-03 9103 tablets by ity of tablet 00:00: mouth in [place] 00 the Medical morning. Branch gabapentin 2022-0 Yes [id number] TAKE 1 & Univers 600 mg 4-03 [...] insulin 8U 8 Units, Unive rs lispro 02-05- Subcutaneo ity of (human) 01:00: 00:43 us, ONCE, [place] g[place] (HumaLOG 00 :00 1 dose, On Medic al U-100) 02/04/23 Branch injection 8 at 1999, Units Routine predniSONE 2022- Yes [id number] Take 4 Univers 10 mg 4-02 04-18 tablets by ity of tablet 00:00: 04:59 mouth [place] 00 :00 daily for Medical 3 days, Branch THEN 2 tablets daily for 4 days, THEN 1 tablet daily for 4 days, THEN 0.5 tablets daily for 4 days. predniSONE 2022- Yes [id number] Take 4 Univers 10 mg 4-02 04-18 tablets by ity of tablet 00:00: 04:59 mouth [place] 00 :00 daily for Medical 3 days, Branch THEN 2 tablets daily for 4 days, THEN 1 tablet daily for 4 days, THEN 0.5 tablets daily for 4 days. predniSONE 2022- Yes [id number] Take 4 Univers 10 mg 4-02 04-18 tablets by ity of tablet 00:00: 04:59 mouth [place] 00 :00 daily for Medical 3 days, Branch THEN 2 tablets daily for 4 days, THEN 1 tablet daily for 4 days, THEN 0.5 tablets daily for 4 days. predniSONE 2022- Yes [id number] Take 4 Univers 10 mg 4-02 04-18 tablets by ity of tablet 00:00: 04:59 mouth [place] 00 :00 daily for Medical 3 days, Branch THEN 2 tablets daily for 4 days, THEN 1 tablet daily for 4 days, THEN 0.5 tablets daily for 4 days. predniSONE 2022- Yes [id number] Take 4 Univers 10 mg 4-02 04-18 tablets by ity of tablet 00:00: 04:59 mouth [place] 00 :00 daily for Medical 3 days, Branch THEN 2 tablets daily for 4 days, THEN 1 tablet daily for 4 days, THEN 0.5 tablets daily for 4 days. predniSONE 2022- Yes [id number] Take 4 Univers 10 mg 4-02 04-18 tablets by ity of tablet 00:00: 04:59 mouth [place] 00 :00 daily for Medical 3 days, Branch THEN 2 tablets daily for 4 days, THEN 1 tablet daily for 4 days, THEN 0.5 tablets daily for 4 days. predniSONE 2022- Yes [id number] Take 4 Univers 10 mg 4-02 04-18 tablets by ity of tablet 00:00: 04:59 mouth [place] 00 :00 daily for Medical 3 days, Branch THEN 2 tablets daily for 4 days, THEN 1 tablet daily for 4 days, THEN 0.5 tablets daily for 4 days. predniSONE 2022- Yes [id number] Take 4 Univers 10 mg 4-02 04-18 tablets by ity of tablet 00:00: 04:59 mouth [place] 00 :00 daily for Medical 3 days, Branch THEN 2 tablets daily for 4 days, THEN 1 tablet daily for 4 days, THEN 0.5 tablets daily for 4 days. predniSONE 2022- Yes [id number] Take 4 Univers 10 mg 4-02 04-18 tablets by ity of tablet 00:00: 04:59 mouth [place] 00 :00 daily for Medical 3 days, Branch THEN 2 tablets daily for 4 days, THEN 1 tablet daily for 4 days, THEN 0.5 tablets daily for 4 days. predniSONE 2022- Yes [id number] Take 4 Univers 10 mg 4-02 04-18 tablets by ity of tablet 00:00: 04:59 mouth [place] 00 :00 daily for Medical 3 days, Branch THEN 2 tablets daily for 4 days, THEN 1 tablet daily for 4 days, THEN 0.5 tablets daily for 4 days. predniSONE 2022- Yes [id number] Take 4 Univers 10 mg 4-02 04-18 tablets by ity of tablet 00:00: 04:59 mouth [place] 00 :00 daily for Medical 3 days, Branch THEN 2 tablets daily for 4 days, THEN 1 tablet daily for 4 days, THEN 0.5 tablets daily for 4 days. predniSONE 2022- No [id number] Take 4 Univers 10 mg 4-02 04-18 [...] dose on Mon02/10/23 at 0900, Routine bumetanide Yes 1mg 1 mg, Univer s (BUMEX) 02-02 Oral, ity of tablet 1 mg 22:00: QAM+PM, [place] 00 First dose Medical (after Branch last modificati on) on [facility] 02/02/23 at 1700, Until Discontinu ed, Routine spironolact 0 Yes 25mg 25 mg, Univ ers one 30 Oral, ity of (ALDACTONE) 14:00: DAILY, [place] tablet 25 First dose Medi dk mg (after Branch last modificati on) on [facility] 02/02/23 at 0900, Until Discontinu ed, Routine azithromyci 2022- No 500mg 500 mg, U nivers n 02-01 Oral, ity of (ZITHROMAX) 17:00: 16:39 ONCE, 1 [place] tablet 500 00 :00 dose, On Medic al mg [facility] 02/01/23 at 1200, ROSELYN
Re ason for Anti-Infec tive: Empiric Therapy for Suspected Infection< br>Empiric Therapy Site: Respirator y
Durat ion of therapy: 5 days omeprazole Yes 40mg 40 mg, Unive rs (PRILOSEC) 01-31 Oral, ity of capsule 40 14:00: DAILY, [place] mg 00 First dose Medical on [facility] 01/31/23 at 0900, Until Discontinu ed aspirin EC Yes 81mg 81 mg, Unive rs tablet 81 01-31 Oral, ity of mg 14:00: DAILY, 00 First dose Medical on [facility] 01/31/23 at 0900, Until Discontinu ed, Routine allopurinoL Yes 200mg 200 mg, Un godfrey (ZYLOPRIM) 01-31 Oral, ity of tablet 200 14:00: DAILY, mg 00 First dose Medical on [facility] 01/31/23 at 0900, Until Discontinu ed, Routine methylPREDN 2022- Yes 40mg 40 mg, Uni vers ISolone sod 01-31-27 Intravenou i ty of succ 14:00: 13:59 s, DAILY, [place] (SOLU-MEDRO 00 :00 30 doses, Med ical L (PF)) First dose Branch injection on Tue 40 mg 01/31/23 at 0900, Last dose on Mon03/01/23 at 0900, 1 mL spironolact 2022- No 12.5mg 12.5 mg, Univers one 01-31 Oral, ity of (ALDACTONE) 14:00: 19:00 DAILY, [place] tablet 12.5 00 :07 First dose Me dical mg on [facility] Branch 01/31/23 at 0900, Until Discontinu ed, Routine levothyroxi Yes 125ug 125 mcg, U nivers ne 01-31 Oral, ity of (SYNTHROID) 11:00: QAM-0600, [place] tablet 125 00 First dose Med ical mcg on [facility] 01/31/23 at 0600, Until Discontinu ed, Routine insulin 2022- No 10U 10 Units, [facility] ers glargine 01-31 Subcutaneo ity of (LANTUS 02:45: 02:07 [place], ONCE, [place] U-100) 00 :00 1 dose, On Medical injection [facility] 10 Units 01/30/23 at 2145, Routine amitriptyli Yes 50mg 50 mg, Univ ers ne (ELAVIL) 01-31 Oral, QHS, it y of tablet 50 02:00: First dose [place] mg 00 on [facility] 01/30/23 at Branch 2100, Until Discontinu ed, Routine terazosin 2022- No 2mg 2 mg, Univer s (HYTRIN) 01-31 04-01 Oral, QHS, ity of capsule 2 02:00: 01:25 First dose [place] mg 00 :40 on [facility] 01/30/23 at Branch 2100, Until Discontinu ed, Routine gabapentin 2022-0 Yes 300mg 300 mg, Uni vers (NEURONTIN) 01-31 Oral, TID, it y of capsule 300 01:00: First dose [place] mg 00 on [facility] 01/30/23 at Branch 2000, Until Discontinu ed, Routine budesonide 2022-0 Yes .5mg 0.5 mg, Univ ers (PULMICORT 01-31 Inhalation ity of RESPULE) 01:00: , BID, [place] nebulizer 00 First dose Medi dk solution on [facility] Branch 0.5 mg 01/30/23 at 2000, Until Discontinu ed, Routine insulin 0 202- No 53U 53 Units, [facility] ers glargine 01-31 03-31 Subcutaneo ity of (LANTUS 01:00: 16:39 us, BID, [place] U-100) 00 :02 First dose Medical injection on [facility] 53 Units 01/30/23 at 2000, Until Discontinu ed Sliding 0 Yes Subcutaneo [facility] ers Scale 01-30 us, TID ity of Insulin - 22:00: MEALS+HS, [place] as Lispro 00 First dose Medical (HumaLOG) + on [facility] Fsbg 01/30/23 at Testing 1700, Until Discontinu ed, Routine carvediloL Yes 6.25mg 6.25 mg, U nivers (COREG) 01-30 Oral, BID ity of tablet 6.25 22:00: [place]ALS, [place] mg 00 First dose Medical on [facility] 01/30/23 at 1700, Until Discontinu ed, Routine bumetanide 2022- No .5mg 0.5 mg, Uni vers (BUMEX) 01-30 0330 Oral, ity of tablet 0.5 22:00: 19:21 QAM+PM, [place] mg 00 :12 First dose Medical on [facility] 01/30/23 at 1700, Until Discontinu ed, Routine ipratropium Yes .5mg 0.5 mg, Uni vers (ATROVENT) 01-30 Inhalation ity of 0.02 % 21:00: , Q4H, [place] nebulizer 00 First dose Medi dk solution on [facility] 0.5 mg 01/30/23 at 1600, Until Discontinu ed, Routine levalbutero 0 Yes .63mg 0.63 mg, U nivers l (XOPENEX) 01-30 Inhalation it y of nebulizer 21:00: , Q4H, [place] solution 00 First dose Medic al 0.63 mg on [facility] 01/30/23 at 1600, Until Discontinu ed, Routine glucagon Yes 1mg 1 mg, Univers (GLUCAGEN 3-27 Intramuscu ity of DIAGNOSTIC 19:37: lar, PRN, [...] Spasms heparin Yes 5000U 5,000 Univers (porcine) 01-30 Units, ity of injection 19:00: Subcutaneo [place] 5,000 Units 00 us, Q8H, Medi dk First dose Branch on Mon01/30/23 at [...] by ity of llus coag 12:51: mouth [place] 250-30-50 35 daily. Medical mg-mg-marilyn Branch on Tab spironolact 2022- No [id number] 12.5mg Take 0.5 Univers one 25 mg 3-22 04-28 tablets by ity of tablet 00:00: 00:00 mouth in [place] 00 :00 [facility] for 30 days. spironolact 2022- Yes [id number] 12.5mg Take 0.5 Univers one 25 mg 3-22 04-22 tablets by ity of tablet 00:00: 04:59 mouth in [place] 00 :00 [facility] for 30 days. spironolact 2022- Yes [id number] 12.5mg Take 0.5 Univers one 25 mg 3-22 04-22 tablets by ity of tablet 00:00: 04:59 mouth in [place] 00 :00 [facility] for 30 days. spironolact 2022- Yes [id number] 12.5mg Take 0.5 Univers one 25 mg 3-22 04-22 tablets by ity of tablet 00:00: 04:59 mouth in [place] 00 :00 [facility] for 30 days. spironolact 2022- Yes [id number] 12.5mg Take 0.5 Univers one 25 mg 3-22 04-22 tablets by ity of tablet 00:00: 04:59 mouth in [place] 00 :00 [facility] for 30 days. spironolact 2022- Yes [id number] 12.5mg Take 0.5 Univers one 25 mg 3-22 04-22 tablets by ity of tablet 00:00: 04:59 mouth in [place] 00 :00 [facility] for 30 days. spironolact 2022- Yes [id number] 12.5mg Take 0.5 Univers one 25 mg 3-22 04-22 tablets by ity of tablet 00:00: 04:59 mouth in [place] 00 :00 [facility] for 30 days. spironolact 2022- Yes [id number] 12.5mg Take 0.5 Univers one 25 mg 3-22 04-22 tablets by ity of tablet 00:00: 04:59 mouth in [place] 00 :00 [facility] for 30 days. spironolact 2022- Yes [id number] 12.5mg Take 0.5 Univers one 25 mg 3-22 04-22 tablets by ity of tablet 00:00: 04:59 mouth in [place] 00 :00 [facility] for 30 days. spironolact 2022- Yes [id number] 12.5mg Take 0.5 Univers one 25 mg 3-22 04-22 tablets by ity of tablet 00:00: 04:59 mouth in [place] 00 :00 [facility] for 30 days. spironolact 2022- Yes [id number] 12.5mg Take 0.5 Univers one 25 mg 3-22 04-22 tablets by ity of tablet 00:: 04:59 mouth in [place] 00 :00 [facility] for 30 days. spironolact 2022- Yes [id number] 12.5mg Take 0.5 Univers one 25 mg 3-22 04-22 tablets by ity of tablet 00:00: 04:59 mouth in [place] 00 :00 [facility] for 30 days. spironolact 2022- Yes [id number] 12.5mg Take 0.5 Univers one 25 mg 3-22 04-22 tablets by ity of tablet 00:: 04:59 mouth in [place] 00 :00 [facility] for 30 days. spironolact 2022- Yes [id number] 12.5mg Take 0.5 Univers one 25 mg 3-22 04-22 tablets by ity of tablet 00:: 04:59 mouth in [place] 00 :00 [facility] for 30 days. spironolact 2022- Yes [id number] 12.5mg Take 0.5 Univers one 25 mg 3-22 04-22 tablets by ity of tablet 00:00: 04:59 mouth in [place] 00 :00 [facility] for 30 days. spironolact 2022- Yes [id number] 12.5mg Take 0.5 Univers one 25 mg 3-22 04-22 tablets by ity of tablet 00:00: 04:59 mouth in [place] 00 :00 [facility] for 30 days. spironolact 2022- Yes [id number] 12.5mg Take 0.5 Univers one 25 mg 3-22 04-22 tablets by ity of tablet 00:00: 04:59 mouth in [place] 00 :00 [facility] for 30 days. spironolact 2022- Yes [id number] 12.5mg Take 0.5 Univers one 25 mg 3-22 04-22 tablets by ity of tablet 00:00: 04:59 mouth in [place] 00 :00 [facility] for 30 days. spironolact 2022- Yes [id number] 12.5mg Take 0.5 Univers one 25 mg 3-22 04-22 tablets by ity of tablet 00:00: 04:59 mouth in [place] 00 :00 [facility] for 30 days. spironolact 2022- Yes [id number] 12.5mg Take 0.5 Univers one 25 mg 3-22 04-22 tablets by ity of tablet 00:00: 04:59 mouth in [place] 00 :00 [facility] for 30 days. spironolact 2022- Yes [id number] 12.5mg Take 0.5 Univers one 25 mg 3-22 -22 tablets by ity of tablet 00:00: 04:59 mouth in [place] 00 :00 [facility] for 30 days. spironolact 2022- Yes [id number] 12.5mg Take 0.5 Univers one 25 mg 3-22 04-22 tablets by ity of tablet 00:00: 04:59 mouth in [place] 00 :00 [facility] for 30 days. predniSONE 2022- Yes [id number] 40mg Take 2 Univers 20 mg 3-22 03-25 tablets by ity of tablet 00:00: 04:59 mouth in [place] 00 :00 [facility] for 2 days. predniSONE 2022- No [id number] 40mg Take 2 Univers 20 mg 3-22 03-25 tablets by ity of tablet 00:00: 04:59 mouth in [place] 00 :00 [facility] for 2 days. cranberry Yes 1{tbl} Take [...] 00 First dose Me dical mg on [facility] 01/24/23 at 0900, Until Discontinu ed, Routine bumetanide Yes .5mg 0.5 mg, Univ ers (BUMEX) - Oral, ity of tablet 0.5 14:00: QAM+PM, [place] mg 00 First dose Medical on [facility] 01/24/23 at 0900, Until Discontinu ed, Routine carvediloL 2022- Yes [id number] 6.25mg Take 1 Univers 6.25 mg -24 02- tablet by ity of tablet 00:00: 04:59 mouth in [place] 00 :00 the Medical morning Branch and 1 tablet in the evening. Take with meals. Do all this for 30 days. bumetanide 2022- Yes [id number] .5mg Take 1 Univers 0.5 mg -24 02- tablet by ity of tablet 00:00: 04:59 mouth [place] 00 :00 every Medical morning Branch and evening for 30 days. carvediloL 2022- Yes [id number] 6.25mg Take 1 Univers 6.25 mg 3-21 -21 tablet by ity of tablet 00:00: 04:59 mouth in [place] 00 :00 the Medical morning Branch and 1 tablet in the evening. Take with meals. Do all this for 30 days. bumetanide 2022- Yes [id number] .5mg Take 1 Univers 0.5 mg 3-21 04-21 tablet by ity of tablet 00:00: 04:59 mouth [place] 00 :00 every Medical morning Branch and evening for 30 days. carvediloL 2022- Yes [id number] 6.25mg Take 1 Univers 6.25 mg 3-21 04-21 tablet by ity of tablet 00:00: 04:59 mouth in [place] 00 :00 the Medical morning Branch and 1 tablet in the evening. Take with meals. Do all this for 30 days. bumetanide 2022- Yes [id number] .5mg Take 1 Univers 0.5 mg 3-21 04-21 tablet by ity of tablet 00:00: 04:59 mouth [place] 00 :00 every Medical morning Branch and evening for 30 days. carvediloL 2022- Yes [id number] 6.25mg Take 1 Univers 6.25 mg 3-21 04-21 tablet by ity of tablet 00:00: 04:59 mouth in [place] 00 :00 the Medical morning Branch and 1 tablet in the evening. Take with meals. Do all this for 30 days. bumetanide 2022- Yes [id number] .5mg Take 1 Univers 0.5 mg 3-21 04-21 tablet by ity of tablet 00:00: 04:59 mouth [place] 00 :00 every Medical morning Branch and evening for 30 days. carvediloL 2022- Yes [id number] 6.25mg Take 1 Univers 6.25 mg 3-21 04-21 tablet by ity of tablet 00:00: 04:59 mouth in [place] 00 :00 the Medical morning Branch and 1 tablet in the evening. Take with meals. Do all this for 30 days. bumetanide 2022- Yes [id number] .5mg Take 1 Univers 0.5 mg 3-21 04-21 tablet by ity of tablet 00:00: 04:59 mouth [place] 00 :00 every Medical morning Branch and evening for 30 days. carvediloL 2022- Yes [id number] 6.25mg Take 1 Univers 6.25 mg 3-21 04-21 tablet by ity of tablet 00:00: 04:59 mouth in [place] 00 :00 the Medical morning Branch and 1 tablet in the evening. Take with meals. Do all this for 30 days. bumetanide 2022- Yes [id number] .5mg Take 1 Univers 0.5 mg 3-21 04-21 tablet by ity of tablet 00:00: 04:59 mouth [place] 00 :00 every Medical morning Branch and evening for 30 days. carvediloL 2022- Yes [id number] 6.25mg Take 1 Univers 6.25 mg 3-21 04-21 tablet by ity of tablet 00:00: 04:59 mouth in [place] 00 :00 the Medical morning Branch and 1 tablet in the evening. Take with meals. Do all this for 30 days. bumetanide 2022- Yes [id number] .5mg Take 1 Univers 0.5 mg 3-21 04-21 tablet by ity of tablet 00:00: 04:59 mouth [place] 00 :00 every Medical morning Branch and evening for 30 days. carvediloL 2022- Yes [id number] 6.25mg Take 1 Univers 6.25 mg 3-21 04-21 tablet by ity of tablet 00:00: 04:59 mouth in [place] 00 :00 the Medical morning Branch and 1 tablet in the evening. Take with meals. Do all this for 30 days. bumetanide 2022- Yes [id number] .5mg Take 1 Univers 0.5 mg 3-21 04-21 tablet by ity of tablet 00:00: 04:59 mouth [place] 00 :00 every Medical morning Branch and evening for 30 days. carvediloL 2022- Yes [id number] 6.25mg Take 1 Univers 6.25 mg 3-21 04-21 tablet by ity of tablet 00:00: 04:59 mouth in [place] 00 :00 the Medical morning Branch and 1 tablet in the evening. Take with meals. Do all this for 30 days. bumetanide 2022- Yes [id number] .5mg Take 1 Univers 0.5 mg 3-21 04-21 tablet by ity of tablet 00:00: 04:59 mouth [place] 00 :00 every Medical morning Branch and evening for 30 days. carvediloL 2022- Yes [id number] 6.25mg Take 1 Univers 6.25 mg 3-21 04-21 tablet by ity of tablet 00:00: 04:59 mouth in [place] 00 :00 the Medical morning Branch and 1 tablet in the evening. Take with meals. Do all this for 30 days. bumetanide 2022- Yes [id number] .5mg Take 1 Univers 0.5 mg 3-21 04-21 tablet by ity of tablet 00:00: 04:59 mouth [place] 00 :00 every Medical morning Branch and evening for 30 days. carvediloL 2022- Yes [id number] 6.25mg Take 1 Univers 6.25 mg 3-21 04-21 tablet by ity of tablet 00:00: 04:59 mouth in [place] 00 :00 the Medical morning Branch and 1 tablet in the evening. Take with meals. Do all this for 30 days. bumetanide 2022- Yes [id number] .5mg Take 1 Univers 0.5 mg 3-21 04-21 tablet by ity of tablet 00:00: 04:59 mouth [place] 00 :00 every Medical morning Branch and evening for 30 days. carvediloL 2022- Yes [id number] 6.25mg Take 1 Univers 6.25 mg 3-21 04-21 tablet by ity of tablet 00:00: 04:59 mouth in [place] 00 :00 the Medical morning Branch and 1 tablet in the evening. Take with meals. Do all this for 30 days. bumetanide 2022- Yes [id number] .5mg Take 1 Univers 0.5 mg 3-21 04-21 tablet by ity of tablet 00:00: 04:59 mouth [place] 00 :00 every Medical morning Branch and evening for 30 days. carvediloL 2022- Yes [id number] 6.25mg Take 1 Univers 6.25 mg 3-21 04-21 tablet by ity of tablet 00:00: 04:59 mouth in [place] 00 :00 the Medical morning Branch and 1 tablet in the evening. Take with meals. Do all this for 30 days. bumetanide 2022- Yes [id number] .5mg Take 1 Univers 0.5 mg 3-21 04-21 tablet by ity of tablet 00:00: 04:59 mouth [place] 00 :00 every Medical morning Branch and evening for 30 days. carvediloL 2022- Yes [id number] 6.25mg Take 1 Univers 6.25 mg 3-21 04-21 tablet by ity of tablet 00:00: 04:59 mouth in [place] 00 :00 the Medical morning Branch and 1 tablet in the evening. Take with meals. Do all this for 30 days. bumetanide 2022- Yes [id number] .5mg Take 1 Univers 0.5 mg 3-21 04-21 tablet by ity of tablet 00:00: 04:59 mouth [place] 00 :00 every Medical morning Branch and evening for 30 days. carvediloL 2022- Yes [id number] 6.25mg Take 1 Univers 6.25 mg 3-21 04-21 tablet by ity of tablet 00:00: 04:59 mouth in [place] 00 :00 the Medical morning Branch and 1 tablet in the evening. Take with meals. Do all this for 30 days. bumetanide 2022- Yes [id number] .5mg Take 1 Univers 0.5 mg 3-21 04-21 tablet by ity of tablet 00:00: 04:59 mouth [place] 00 :00 every Medical morning Branch and evening for 30 days. carvediloL 2022- Yes [id number] 6.25mg Take 1 Univers 6.25 mg 3-21 04-21 tablet by ity of tablet 00:00: 04:59 mouth in [place] 00 :00 the Medical morning Branch and 1 tablet in the evening. Take with meals. Do all this for 30 days. bumetanide 2022- Yes [id number] .5mg Take 1 Univers 0.5 mg 3-21 04-21 tablet by ity of tablet 00:00: 04:59 mouth [place] 00 :00 every Medical morning Branch and evening for 30 days. carvediloL 2022- Yes [id number] 6.25mg Take 1 Univers 6.25 mg 3-21 04-21 tablet by ity of tablet 00:00: 04:59 mouth in [place] 00 :00 the Medical morning Branch and 1 tablet in the evening. Take with meals. Do all this for 30 days. bumetanide 2022- Yes [id number] .5mg Take 1 Univers 0.5 mg 3-21 -21 tablet by ity of tablet 00:00: 04:59 mouth [place] 00 :00 every Medical morning Branch and evening for 30 days. carvediloL 2022- Yes [id number] 6.25mg Take 1 Univers 6.25 mg 3-21 -21 tablet by ity of tablet 00:00: 04:59 mouth in [place] 00 :00 the Medical morning Branch and 1 tablet in the evening. Take with meals. Do all this for 30 days. bumetanide 2022- Yes [id number] .5mg Take 1 Univers 0.5 mg 3-21 -21 tablet by ity of tablet 00:00: 04:59 mouth [place] 00 :00 every Medical morning Branch and evening for 30 days. carvediloL 2022- Yes [id number] 6.25mg Take 1 Univers 6.25 mg 3-21 -21 tablet by ity of tablet 00:00: 04:59 mouth in [place] 00 :00 the Medical morning Branch and 1 tablet in the evening. Take with meals. Do all this for 30 days. bumetanide 2022- Yes [id number] .5mg Take 1 Univers 0.5 mg 3-21 -21 tablet by ity of tablet 00:00: 04:59 mouth [place] 00 :00 every Medical morning Branch and evening for 30 days. carvediloL 2022- No [id number] 6.25mg Take 1 Univers 6.25 mg 3-21 -18 tablet by ity of tablet 00:00: 00:00 mouth in [place] 00 :00 the Medical morning Branch and 1 tablet in the evening. Take with meals. Do all this for 30 days. bumetanide 2022- No [id number] .5mg Take 1 Univers 0.5 mg 3-21 -18 tablet by ity of tablet 00:00: 00:00 mouth [place] 00 :00 every Medical morning Branch and evening for 30 days. levoFLOXaci 2022- Yes [id number] 750mg Take 1 Univers n 750 mg 3-21 01-29 tablet by ity o f tablet 00:00: 04:59 mouth [place] 00 :00 every 48 [facility] hours for 4 days. levoFLOXaci 2022- No [id number] 750mg Take 1 Univers n 750 mg 01-24 tablet by ity o f tablet 00:00: 04:59 mouth [place] 00 :00 every 48 Medical [facility] hours for 4 days. sodium 0 Yes 15g 15 g, Univers polystyrene 01-23 Oral, ity of sulfonate 17:15: DAILY, [place] (KAYEXALATE 00 First dose Me dical ) 15 on Mon [place] gram/60 mL 01/23/23 at suspension 1215, 15 [...] it y of nebulizer 19:45: , TID, [place] solution 00 First dose Medic al 0.63 mg (after Branch last modificati on) on [place] 01/22/23 at 1445, Until Discontinu ed gabapentin 0 Yes 600mg 600 mg, Uni vers (NEURONTIN) 01-22 Oral, TID, it y of tablet 600 01:00: First dose [place] mg 00 on [facility] Medical 01/21/23 at Branch 2000, Until Discontinu ed, Routine alum-mag 2022- No 30mL 30 mL, Univer s hydroxide-s 01-22 Oral, ity of imeth 00:45: 01:15 ONCE, 1 [place] (MAALOX 00 :00 dose, On Medical PLUS / Sat Branch MAG-AL 01/21/23 at PLUS) 1945, 200-200-20 Routine mg/5 mL suspension 30 mL carvediloL 0 Yes 6.25mg 6.25 mg, U nivers (COREG) 18 Oral, BID ity of tablet 6.25 22:00: MEALS, [place] mg 00 First dose Medical on [facility] 01/21/23 at 1700, Until Discontinu ed, Routine methylpredn 0 2022- No 80mg 80 mg, Uni vers isolone sod 01-21 03-18 Slow IV ity of succ 21:00: 22:06 Push, [place] (SOLU-MEDRO 00 :00 ONCE, 1 Medic al L) dose, On Branch injection Sat 80 mg 01/21/23 at 1600, Routine omeprazole 0 Yes 20mg 20 mg, Unive rs (PRILOSEC) 18 Oral, ity of capsule 20 14:00: DAILY, [place] mg 00 First dose Medical on [facility] 01/21/23 at 0900, Until Discontinu ed aspirin EC 0 Yes 81mg 81 mg, Unive rs tablet 81 18 Oral, ity of mg 14:00: DAILY, [place] 00 First dose Medical on [facility] 01/21/23 at 0900, Until Discontinu ed, Routine allopurinoL 0 Yes 200mg 200 mg, Un god[place] (ZYLOPRIM) 01-21 Oral, ity of tablet 200 14:00: DAILY, [place] mg 00 First dose Medical on [facility] 01/21/23 at 0900, Until Discontinu ed, Routine azithromyci 0 2022- No 500mg 500 mg, U nivers n 18 03-20 Oral, ity of (ZITHROMAX) 14:00: 13:12 DAILY, 3 [place] tablet 500 00 :00 doses, Medical mg First dose Branch on [facility] 01/21/23 at 0900, Last dose on Mon01/23/23 [...] ity of 1,000 mg in 13:45: 13:44 [place], [place] NaCl 0.9% 00 :00 Q12H ABX, Medic al (NS) 100 mL 10 doses, [facility] MINI-BAG First dose on Mon01/21/23 at 0845, Last dose on Mon01/25/23 at 2045, Administer over 4 Hours, 100 mL
Reas on for Anti-Infec tive: Empiric Therapy for Suspected Infection< br>Empiric Therapy Site: Respirator y
Durat ion of therapy: 72 hours heparin Yes 5000U 5,000 Univers (porcine) 01-21 Units, ity of injection 13:00: Subcutaneo [place] 5,000 Units 00 us, BID, Medi dk First dose Branch on Mon01/21/23 at 0800, Until Discontinu ed, Routine levothyroxi Yes 125ug 125 mcg, U nivers ne 01-21 Oral, ity of (SYNTHROID) 11:00: QAM-0600, [place] tablet 125 00 First dose Med ical mcg on Mon Branch 01/21/23 at 0600, Until Discontinu ed, [...] 05 :48 Starting Medical 0.63 mg on Mon17/23 at 2357, Until 01/22/23 at 1434, Shortness [...] IV ity of (D50W) 22:54: Push, PRN, [place] injection 10 Starting Medica l 25 mL [...] Pain (scale 1-3) LORazepam 0 202- No [id number] 1mg 1 mg, Un [place] (ATIVAN) 3-03 03-03 Oral, ity of tablet 1 mg 16:00: 15:07 ONCE, 1 [place] 00 :00 dose, On Medical 01/06/23 Branch at 1000, Routine LORazepam 2022- No [id number] 1mg 1 mg, Un [place] (ATIVAN) 01-06 Oral, ity of tablet 1 mg 16:00: 15:07 ONCE, 1 [place] 00 :00 dose, On Medical Mon01/06/23 Branch at 1000, Routine amoxicillin 2022-0 Yes [id number] 1{tbl} Take 1 Univers -clavulanat 2-17 tablet by ity of e 00:00: mouth in [place] (AUGMENTIN) 00 the Medical 875-125 mg morning Branch per tablet and 1 tablet in the evening. amoxicillin Yes [id number] 1{tbl} Take 1 Univers -clavulanat 2-17 tablet by ity of e 00:00: mouth in [place] (AUGMENTIN) 00 the Medical 875-125 mg morning Branch per tablet and 1 tablet in the evening. amoxicillin Yes [id number] 1{tbl} Take 1 Univers -clavulanat 2-17 tablet by ity of e 00:00: mouth in [place] (AUGMENTIN) 00 the Medical 875-125 mg morning Branch per tablet and 1 tablet in the evening. amoxicillin Yes [id number] 1{tbl} Take 1 Univers -clavulanat 2-17 tablet by ity of e 00:00: mouth in [place] (AUGMENTIN) 00 the Medical 875-125 mg morning Branch per tablet and 1 tablet in the evening. amoxicillin Yes [id number] 1{tbl} Take 1 Univers -clavulanat 2-17 tablet by ity of e 00:00: mouth in [place] (AUGMENTIN) 00 the Medical 875-125 mg morning Branch per tablet and 1 tablet in the evening. amoxicillin 0 Yes [id number] 1{tbl} Take 1 Univers -clavulanat 2-17 tablet by ity of e 00:00: mouth in [place] (AUGMENTIN) 00 the Medical 875-125 mg morning Branch per tablet and 1 tablet in the evening. amoxicillin Yes [id number] 1{tbl} Take 1 Univers -clavulanat 2-17 tablet by ity of e 00:00: mouth in [place] (AUGMENTIN) 00 the Medical 875-125 mg morning Branch per tablet and 1 tablet in the evening. amoxicillin 2022-0 Yes [id number] 1{tbl} Take 1 Univers -clavulanat 2-17 tablet by ity of e 00:00: mouth in [place] (AUGMENTIN) 00 the Medical 875-125 mg morning Branch per tablet and 1 tablet in the evening. amoxicillin 2022-0 Yes [id number] 1{tbl} Take 1 Univers -clavulanat 2-17 tablet by ity of e 00:00: mouth in [place] (AUGMENTIN) 00 the Medical 875-125 mg morning Branch per tablet and 1 tablet in the evening. amoxicillin 2022-0 Yes [id number] 1{tbl} Take 1 Univers -clavulanat 2-17 tablet by ity of e 00:00: mouth in [place] (AUGMENTIN) 00 the Medical 875-125 mg morning Branch per tablet and 1 tablet in the evening. amoxicillin 2022-0 Yes [id number] 1{tbl} Take 1 Univers -clavulanat 2-17 tablet by ity of e 00:00: mouth in [place] (AUGMENTIN) 00 the Medical 875-125 mg morning Branch per tablet and 1 tablet in the evening. amoxicillin 2022-0 Yes [id number] 1{tbl} Take 1 Univers -clavulanat 2-17 tablet by ity of e 00:00: mouth in [place] (AUGMENTIN) 00 the Medical 875-125 mg morning Branch per tablet and 1 tablet in the evening. amoxicillin 2022-0 Yes [id number] 1{tbl} Take 1 Univers -clavulanat 2-17 tablet by ity of e 00:00: mouth in [place] (AUGMENTIN) 00 the Medical 875-125 mg morning Branch per tablet and 1 tablet in the evening. amoxicillin 2022-0 Yes [id number] 1{tbl} Take 1 Univers -clavulanat 2-17 tablet by ity of e 00:00: mouth in [place] (AUGMENTIN) 00 the Medical 875-125 mg morning Branch per tablet and 1 tablet in the evening. amoxicillin 2022-0 Yes [id number] 1{tbl} Take 1 Univers -clavulanat 2-17 tablet by ity of e 00:00: mouth in [place] (AUGMENTIN) 00 the Medical 875-125 mg morning Branch per tablet and 1 tablet in the evening. amoxicillin 3-0 Yes [id number] 1{tbl} Take 1 Univers -clavulanat 2-17 tablet by ity of e 00:00: mouth in [place] (AUGMENTIN) 00 the Medical 875-125 mg morning Branch per tablet and 1 tablet in the evening. amoxicillin 2022-0 3- No [id number] 1{tbl} Take 1 Univers -clavulanat 2-17 03-21 tablet by it y of e 00:00: 00:00 mouth in [place] (AUGMENTIN) 00 :00 the Medical 875-125 mg morning Branch per tablet and 1 tablet in the evening. amoxicillin 2022-0 3- No [id number] 1{tbl} Take 1 Univers -clavulanat 2-17 03-21 tablet by it y of e 00:00: 00:00 mouth in [place] (AUGMENTIN) 00 :00 the Medical 875-125 mg morning Branch per tablet and 1 tablet in the evening. methylPREDN 2023-0 Yes [id number] 84mg Take 21 Univers ISolone 2-16 tablets by ity of (MEDROL, 00:00: mouth [place] FAREED,) 4 mg 00 SEE-INSTRU Med ical tablets CTIONS. Branch follow package directions methylPREDN 2023-0 Yes [id number] 84mg Take 21 Univers ISolone 2-16 tablets by ity of (MEDROL, 00:00: mouth [place] FAREED,) 4 mg 00 SEE-INSTRU Med ical tablets CTIONS. Branch follow package directions methylPREDN 2023-0 Yes [id number] 84mg Take 21 Univers ISolone 2-16 tablets by ity of (MEDROL, 00:00: mouth [place] FAREED,) 4 mg 00 SEE-INSTRU Med ical tablets CTIONS. Branch follow package directions methylPREDN 2023-0 Yes [id number] 84mg Take 21 Univers ISolone 2-16 tablets by ity of (MEDROL, 00:00: mouth [place] FAREED,) 4 mg 00 SEE-INSTRU Med ical tablets CTIONS. Branch follow package directions methylPREDN 2023-0 Yes [id number] 84mg Take 21 Univers ISolone 2-16 tablets by ity of (MEDROL, 00:00: mouth [place] FAREED,) 4 mg 00 SEE-INSTRU Med ical tablets CTIONS. Branch follow package directions methylPREDN 2023-0 Yes [id number] 84mg Take 21 Univers ISolone 2-16 tablets by ity of (MEDROL, 00:00: mouth [place] FAREED,) 4 mg 00 SEE-INSTRU Med ical tablets CTIONS. Branch follow package directions methylPREDN 2023-0 Yes [id number] 84mg Take 21 Univers ISolone 2-16 tablets by ity of (MEDROL, 00:00: mouth [place] FAREED,) 4 mg 00 SEE-INSTRU Med ical tablets CTIONS. Branch follow package directions levoFLOXaci 2023-0 Yes Univer s n 750 mg 2-16 ity of tablet 00:00: Medical Branch methylPREDN 2023-0 Yes [id number] 84mg Take 21 Univers ISolone 2-16 tablets by ity of (MEDROL, 00:00: mouth [place] FAREED,) 4 mg 00 SEE-INSTRU Med ical tablets CTIONS. Branch follow package directions levoFLOXaci 2023-0 Yes Univer s n 750 mg 2-16 ity of tablet 00:00: Medical Branch methylPREDN 2023-0 Yes [id number] 84mg Take 21 Univers ISolone 2-16 tablets by ity of (MEDROL, 00:00: mouth [place] FAREED,) 4 mg 00 SEE-INSTRU Med ical tablets CTIONS. Branch follow package directions levoFLOXaci 2023-0 Yes Univer [facility] n 750 mg 2-16 ity of tablet 00:00: Medical Branch methylPREDN 2023-0 Yes [id number] 84mg Take 21 [facility] ISolone 2-16 tablets by ity of (MEDROL, 00:00: mouth [place] FAREED,) 4 mg 00 SEE-INSTRU Med ical tablets CTIONS. Branch follow package directions methylPREDN 2023-0 Yes [id number] 84mg Take 21 [facility] ISolone 2-16 tablets by ity of (MEDROL, 00:00: mouth [place] FAREED,) 4 mg 00 SEE-INSTRU Med ical tablets CTIONS. Branch follow package directions methylPREDN 2023-0 Yes [id number] 84mg Take 21 [facility] ISolone 2-16 tablets by ity of (MEDROL, 00:00: mouth [place] FAREED,) 4 mg 00 SEE-INSTRU Med ical tablets CTIONS. Branch follow package directions levoFLOXaci 2023-0 Yes Univer s n 750 mg 2-16 ity of tablet 00:00: [place] 00 [facility] methylPREDN 2023-0 Yes [id number] 84mg Take 21 [facility] ISolone 2-16 tablets by ity of (MEDROL, 00:00: mouth [place] FAREED,) 4 mg 00 SEE-INSTRU Med ical tablets CTIONS. Branch follow package directions levoFLOXaci 2023-0 Yes Univer s n 750 mg 2-16 ity of tablet 00:00: [place] 00 [facility] methylPREDN 2023-0 Yes [id number] 84mg Take 21 [facility] ISolone 2-16 tablets by ity of (MEDROL, 00:00: mouth [place] FAREED,) 4 mg 00 SEE-INSTRU Med ical tablets CTIONS. Branch follow package directions levoFLOXaci 2023-0 Yes Univer s n 750 mg 2-16 ity of tablet 00:00: [place] 00 [facility] methylPREDN 2023-0 Yes [id number] 84mg Take 21 [facility] ISolone 2-16 tablets by ity of (MEDROL, 00:00: mouth [place] FAREED,) 4 mg 00 SEE-INSTRU Med ical tablets CTIONS. Branch follow package directions levoFLOXaci 2023-0 Yes Univer s n 750 mg 2-16 ity of tablet 00:00: [place] 00 [facility] methylPREDN 2023-0 Yes [id number] 84mg Take 21 [facility] ISolone 2-16 tablets by ity of (MEDROL, 00:00: mouth [place] FAREED,) 4 mg 00 SEE-INSTRU Med ical tablets CTIONS. Branch follow package directions levoFLOXaci 2023-0 Yes Univer s n 750 mg 2-16 ity of tablet 00:00: [place] 00 [facility] methylPREDN 2023-0 Yes [id number] 84mg Take 21 [facility] ISolone 2-16 tablets by ity of (MEDROL, 00:00: mouth [place] FAREED,) 4 mg 00 SEE-INSTRU Med ical tablets CTIONS. Branch follow package directions levoFLOXaci 2023-0 Yes Univer s n 750 mg 2-16 ity of tablet 00:00: [place] 00 [facility] methylPREDN 2023-0 Yes [id number] 84mg Take 21 [facility] ISolone 2-16 tablets by ity of (MEDROL, 00:00: mouth [place] FAREED,) 4 mg 00 SEE-INSTRU Med ical tablets CTIONS. Branch follow package directions levoFLOXaci 2022-0 Yes Univer [facility] n 750 mg 2-16 ity of tablet 00:00: [place] 00 [facility] methylPREDN 2022-0 2022- No [id number] 84mg Take 21 [facility] ISolone 2-16 -17 tablets by ity o f (MEDROL, 00:00: 00:00 mouth [place] FAREED,) 4 mg 00 :00 SEE-INSTRU Med ical tablets CTIONS. Branch follow package directions levoFLOXaci 0 2022- No Unive rs n 750 mg 2-16 -17 ity of tablet 00:00: 00:00 [place] 00 :00 Medical Branch methylPREDN 2022-0 2022- No [id number] 84mg Take 21 [facility] ISolone 2-16 -17 tablets by ity o f (MEDROL, 00:00: 00:00 mouth [place] FAREED,) 4 mg 00 :00 SEE-INSTRU Med ical tablets CTIONS. Branch follow package directions levoFLOXaci 0 2022- No Unive rs n 750 mg 2-16 -17 ity of tablet 00:00: 00:00 [place] 00 :00 [facility] Branch traMADoL 50 3-0 Yes Univer s mg tablet 2-10 ity of 00:00: [place] [facility] traMADoL 50 3-0 Yes Univer s mg tablet 2-10 ity of 00:00: [place] 00 [facility] traMADoL 50 3-0 Yes Univer s mg tablet 2-10 ity of 00:00: [place] [facility] traMADoL 50 3-0 Yes Univer s mg tablet 2-10 ity of 00:00: [place] [facility] traMADoL 50 3-0 Yes Univer [facility] mg tablet 2-10 ity of 00:00: [place] 00 [facility] traMADoL 50 3-0 Yes Univer [facility] mg tablet 2-10 ity of 00:00: [place] [facility] traMADoL 50 3-0 Yes Univer [facility] mg tablet 2-10 ity of 00:00: [place] [facility] traMADoL 50 2023-0 Yes Univer s mg tablet 2-10 ity of 00:00: [place] [facility] traMADoL 50 3-0 Yes Univer [facility] mg tablet 2-10 ity of 00:00: [place] 00 [facility] traMADoL 50 2023-0 Yes Univer s mg tablet 2-10 ity of 00:00: [place] 00 [facility] traMADoL 50 3-0 Yes Univer [facility] mg tablet 2-10 ity of 00:00: [place] [facility] traMADoL 50 2023-0 Yes Univer s mg tablet 2-10 ity of 00:00: [place] [facility] traMADoL 50 2023-0 Yes Univer s mg tablet 2-10 ity of 00:00: [place] [facility] traMADoL 50 2023-0 Yes Univer s mg tablet 2-10 ity of 00:00: [place] [address] Medical Branch traMADoL 50 2023-0 Yes Univer s mg tablet 2-10 ity of 00:00: [place] [address] Medical Branch traMADoL 50 3-0 Yes Univer s mg tablet 2-10 ity of 00:00: [place] [address] Medical Branch traMADoL 50 3-0 Yes Univer s mg tablet 2-10 ity of 00:00: [place] [address] Medical Branch traMADoL 50 3-0 Yes Univer s mg tablet 2-10 ity of 00:00: [place] [address] Medical Branch traMADoL 50 3-0 Yes Univer s mg tablet 2-10 ity of 00:00: [place] [address] Medical Branch traMADoL 50 3-0 Yes Univer s mg tablet 2-10 ity of 00:00: [place] [address] Medical Branch traMADoL 50 2023-0 Yes Univer s mg tablet 2-10 ity of 00:00: [place] [address] Medical Branch traMADoL 50 2023-0 Yes Univer s mg tablet 2-10 ity of 00:00: [place] 00 [facility] Branch traMADoL 50 2023-0 Yes Univer s mg tablet 2-10 ity of 00:00: [place] [address] Medical Branch traMADoL 50 2023-0 Yes Univer s mg tablet 2-10 ity of 00:00: [place] 00 [facility] Branch traMADoL 50 2023-0 Yes Univer s mg tablet 2-10 ity of 00:00: [place] 00 [facility] Branch traMADoL 50 2023-0 Yes Univer s mg tablet 2-10 ity of 00:00: [place] [address] Medical Branch traMADoL 50 2023-0 Yes Univer s mg tablet 2-10 ity of 00:00: [place] [address] Medical Branch traMADoL 50 2023-0 Yes Univer s mg tablet 2-10 ity of 00:00: Medical Branch traMADoL 50 3-0 Yes Univer s mg tablet 2-10 ity of 00:00: Medical Branch traMADoL 50 3-0 Yes Univer s mg tablet 2-10 ity of 00:00: [place] [facility] traMADoL 50 3-0 Yes Univer s mg tablet 2-10 ity of 00:00: Medical Branch traMADoL 50 3-0 Yes Univer s mg tablet 2-10 ity of 00:00: Medical Branch traMADoL 50 3-0 Yes Univer s mg tablet 2-10 ity of 00:00: [place] [facility] traMADoL 50 2022-0 Yes Univer s mg tablet 2-10 ity of 00:00: [place] [facility] traMADoL 50 2022-0 Yes Univer s mg tablet 2-10 ity of 00:00: Medical Branch traMADoL 50 2022-0 Yes Univer s mg tablet 2-10 ity of 00:00: Medical Branch traMADoL 50 2022-0 Yes Univer [facility] mg tablet 2-10 ity of 00:00: Medical Branch alpha 2023-0 2023- No 200mg [...] capsule 10 :00 daily. Medical Branch tiZANidine 3-0 Yes [id number] 2mg Take 1 U nivers 2 mg 2-06 capsule by ity of capsule 00:00: mouth 3 (three) Medical times Branch daily as needed for Muscle Spasms. tiZANidine 3-0 Yes [id number] 2mg Take 1 U nivers 2 mg 2-06 capsule by ity of capsule 00:00: mouth 3 (three) Medical times Branch daily as needed for Muscle Spasms. tiZANidine 2023-0 Yes [id number] 2mg Take 1 [facility] nivers 2 mg 2-06 capsule by ity of capsule 00:00: mouth (three) Medical times Branch daily as needed for Muscle Spasms. tiZANidine 2023-0 Yes [id number] 2mg Take 1 [facility] nivers 2 mg 2-06 capsule by ity of capsule 00:00: mouth (three) Medical times Branch daily as needed for Muscle Spasms. tiZANidine 2023-0 Yes [id number] 2mg Take 1 [facility] nivers 2 mg 2-06 capsule by ity of capsule 00:00: mouth (three) Medical times Branch daily as needed for Muscle Spasms. tiZANidine 2023-0 Yes [id number] 2mg Take 1 [facility] nivers 2 mg 2-06 capsule by ity of capsule 00:00: mouth (three) Medical times Branch daily as needed for Muscle Spasms. tiZANidine 2023-0 Yes [id number] 2mg Take 1 [facility] nivers 2 mg 2-06 capsule by ity of capsule 00:00: mouth (three) Medical times Branch daily as needed for Muscle Spasms. tiZANidine 2023-0 Yes [id number] 2mg Take 1 U nivers 2 mg 2-06 capsule by ity of capsule 00:00: mouth (three) Medical times Branch daily as needed for Muscle Spasms. tiZANidine 2023-0 Yes [id number] 2mg Take 1 U nivers 2 mg 2-06 capsule by ity of capsule 00:00: mouth (three) Medical times Branch daily as needed for Muscle Spasms. tiZANidine 2023-0 Yes [id number] 2mg Take 1 U nivers 2 mg 2-06 capsule by ity of capsule 00:00: mouth (three) Medical times Branch daily as needed for Muscle Spasms. tiZANidine 2023-0 Yes [id number] 2mg Take 1 U nivers 2 mg 2-06 capsule by ity of capsule 00:00: mouth (three) Medical times Branch daily as needed for Muscle Spasms. tiZANidine 2023-0 Yes [id number] 2mg Take 1 U nivers 2 mg 2-06 capsule by ity of capsule 00:00: mouth (three) Medical times Branch daily as needed for Muscle Spasms. tiZANidine 3-0 Yes [id number] 2mg Take 1 U nivers 2 mg 2-06 capsule by ity of capsule 00:00: mouth (three) Medical times Branch daily as needed for Muscle Spasms. tiZANidine 3-0 Yes [id number] 2mg Take 1 U nivers 2 mg 2-06 capsule by ity of capsule 00:00: mouth (three) Medical times Branch daily as needed for Muscle Spasms. tiZANidine 3-0 Yes [id number] 2mg Take 1 U nivers 2 mg 2-06 capsule by ity of capsule 00:00: mouth (three) Medical times Branch daily as needed for Muscle Spasms. tiZANidine 3-0 Yes [id number] 2mg Take 1 [facility] nivers 2 mg 2-06 capsule by ity of capsule 00:00: mouth (three) Medical times Branch daily as needed for Muscle Spasms. tiZANidine 3-0 Yes [id number] 2mg Take 1 [facility] nivers 2 mg 2-06 capsule by ity of capsule 00:00: mouth (three) Medical times Branch daily as needed for Muscle Spasms. tiZANidine 3-0 Yes [id number] 2mg Take 1 [facility] nivers 2 mg 2-06 capsule by ity of capsule 00:00: mouth (three) Medical times Branch daily as needed for Muscle Spasms. tiZANidine 3-0 Yes [id number] 2mg Take 1 [facility] nivers 2 mg 2-06 capsule by ity of capsule 00:00: mouth (three) Medical times Branch daily as needed for Muscle Spasms. tiZANidine 2023-0 Yes [id number] 2mg Take 1 [facility] nivers 2 mg 2-06 capsule by ity of capsule 00:00: mouth (three) Medical times Branch daily as needed for Muscle Spasms. tiZANidine 2023-0 Yes [id number] 2mg Take 1 [facility]ivers 2 mg 2-06 capsule by ity of capsule 00:00: mouth (three) Medical times Branch daily as needed for Muscle Spasms. tiZANidine 2023-0 Yes [id number] 2mg Take 1 [facility] nivers 2 mg 2-06 capsule by ity of capsule 00:00: mouth (three) Medical times Branch daily as needed for Muscle Spasms. tiZANidine 2023-0 Yes [id number] 2mg Take 1 [facility] 2 mg 2-06 capsule by ity of capsule 00:00: mouth (three) Medical times Branch daily as needed for Muscle Spasms. tiZANidine 2023-0 Yes [id number] 2mg Take 1 [facility] nivers 2 mg 2-06 capsule by ity of capsule 00:00: mouth (three) Medical times Branch daily as needed for Muscle Spasms. tiZANidine 2023-0 Yes [id number] 2mg Take 1 [facility]ivers 2 mg 2-06 capsule by ity of capsule 00:00: mouth (three) Medical times Branch daily as needed for Muscle Spasms. tiZANidine 3-0 Yes [id number] 2mg Take 1 [facility] 2 mg 2-06 capsule by ity of capsule 00:00: mouth (three) Medical times Branch daily as needed for Muscle Spasms. tiZANidine 3-0 Yes [id number] 2mg Take 1 [facility] 2 mg 2-06 capsule by ity of capsule 00:00: mouth (three) Medical times Branch daily as needed for Muscle Spasms. tiZANidine 3-0 Yes [id number] 2mg Take 1 [facility] 2 mg 2-06 capsule by ity of capsule 00:00: mouth (three) Medical times Branch daily as needed for Muscle Spasms. tiZANidine 3-0 Yes [id number] 2mg Take 1 [facility] nivers 2 mg 2-06 capsule by ity of capsule 00:00: mouth (three) Medical times Branch daily as needed for Muscle Spasms. tiZANidine 2023-0 Yes [id number] 2mg Take 1 [facility] n[facility] 2 mg 2-06 capsule by ity of capsule 00:00: mouth (three) Medical times Branch daily as needed for Muscle Spasms. tiZANidine 2023-0 Yes [id number] 2mg Take 1 [facility] nivers 2 mg 2-06 capsule by ity of capsule 00:00: mouth (three) Medical times Branch daily as needed for Muscle Spasms. tiZANidine 2023-0 Yes [id number] 2mg Take 1 [facility] n[facility] 2 mg 2-06 capsule by ity of capsule 00:00: mouth (three) Medical times Branch daily as needed for Muscle Spasms. tiZANidine 2023-0 Yes [id number] 2mg Take 1 [facility] 2 mg 2-06 capsule by ity of capsule 00:00: mouth (three) Medical times Branch daily as needed for Muscle Spasms. tiZANidine 2023-0 Yes [id number] 2mg Take 1 [facility] n[facility] 2 mg 2-06 capsule by ity of capsule 00:00: mouth (three) Medical times Branch daily as needed for Muscle Spasms. tiZANidine 2023-0 Yes [id number] 2mg Take 1 [facility] 2 mg 2-06 capsule by ity of capsule 00:00: mouth (three) Medical times Branch daily as needed for Muscle Spasms. tiZANidine 3-0 Yes [id number] 2mg Take 1 [facility] 2 mg 2-06 capsule by ity of capsule 00:00: mouth (three) Medical times Branch daily as needed for Muscle Spasms. tiZANidine 3-0 Yes [id number] 2mg Take 1 [facility] 2 mg 2-06 capsule by ity of capsule 00:00: mouth (three) Medical times Branch daily as needed for Muscle Spasms. tiZANidine 2023-0 Yes [id number] 2mg Take 1 [facility] 2 mg 2-06 capsule by ity of capsule 00:00: mouth (three) Medical times Branch daily as needed for Muscle Spasms. tiZANidine 2023-0 Yes [id number] 2mg Take 1 [facility] nivers 2 mg 2-06 capsule by ity of capsule 00:00: mouth (three) Medical times Branch daily as needed for Muscle Spasms. tiZANidine 2023-0 Yes [id number] 2mg Take 1 [facility] n[facility] 2 mg 2-06 capsule by ity of capsule 00:00: mouth (three) Medical times Branch daily as needed for Muscle Spasms. tiZANidine 2023-0 Yes [id number] 2mg Take 1 [facility] n[facility] 2 mg 2-06 capsule by ity of capsule 00:00: mouth (three) Medical times Branch daily as needed for Muscle Spasms. tiZANidine 2023-0 Yes [id number] 2mg Take 1 [facility] n[facility] 2 mg 2-06 capsule by ity of capsule 00:00: mouth (three) Medical times Branch daily as needed for Muscle Spasms. tiZANidine 3-0 Yes [id number] 2mg Take 1 [facility] n[facility] 2 mg 2-06 capsule by ity of capsule 00:00: mouth (three) Medical times Branch daily as needed for Muscle Spasms. tiZANidine 3-0 Yes [id number] 2mg Take 1 [facility] 2 mg 2-06 capsule by ity of capsule 00:00: mouth (three) Medical times Branch daily as needed for Muscle Spasms. tiZANidine 3-0 Yes [id number] 2mg Take 1 [facility] n[facility] 2 mg 2-06 capsule by ity of capsule 00:00: mouth (three) Medical times Branch daily as needed for Muscle Spasms. tiZANidine 3-0 Yes [id number] 2mg Take 1 [facility] 2 mg 2-06 capsule by ity of capsule 00:00: mouth (three) Medical times Branch daily as needed for Muscle Spasms. tiZANidine 3-0 Yes [id number] 2mg Take 1 [facility] n[facility] 2 mg 2-06 capsule by ity of capsule 00:00: mouth (three) Medical times Branch daily as needed for Muscle Spasms. tiZANidine 3-0 Yes [id number] 2mg Take 1 [facility] n[facility] 2 mg 2-06 capsule by ity of capsule 00:00: mouth (three) Medical times Branch daily as needed for Muscle Spasms. tiZANidine 2023-0 Yes [id number] 2mg Take 1 [facility] nivers 2 mg 2-06 capsule by ity of capsule 00:00: mouth (three) Medical times Branch daily as needed for Muscle Spasms. tiZANidine 2023-0 Yes [id number] 2mg Take 1 U nivers 2 mg 2-06 capsule by ity of capsule 00:00: mouth 3 [place] 00 (three) Medical times Branch daily as needed for Muscle Spasms. tiZANidine 2023-0 Yes [id number] 2mg Take 1 U nivers 2 mg 2-06 capsule by ity of capsule 00:00: mouth 3 (three) Medical times Branch daily as needed for Muscle Spasms. tiZANidine 2023-0 Yes [id number] 2mg Take 1 [facility] n[facility] 2 mg 2-06 capsule by ity of capsule 00:00: mouth 3 (three) Medical times Branch daily as needed for Muscle Spasms. tiZANidine 3-0 Yes [id number] 2mg Take 1 [facility] nivers 2 mg 2-06 capsule by ity of capsule 00:00: mouth 3 (three) Medical times Branch daily as needed for Muscle Spasms. omeprazole 3-0 Yes TAKE 1 Unive rs [...] Medical BEFORE A Branch MEAL sulfamethox 2023-0 2022- No TAKE 1 Uni vers azole-trime -30 - TABLET BY it y of thoprim 00:00: 00:00 MOUTH [place] 800-160 mg 00 :00 THREE Medical per tablet TIMES A Branch WEEK sulfamethox 2023-0 2022- No TAKE 1 [facility] vers azole-trime -30 - TABLET BY it y of thoprim 00:00: 00:00 MOUTH [place] 800-160 mg 00 :00 THREE Medical per tablet TIMES A Branch WEEK GABAPENTIN 2023-0 Yes [id number] TAKE 1 & [facility] 600 mg 1-19 1/2 (ONE & ity of tablet 00:00: ONE-HALF) [place] 00 TABLETS BY Medical MOUTH Branch THREE TIMES DAILY GABAPENTIN 2023-0 Yes [id number] TAKE 1 & [facility] 600 mg 1-19 1/2 (ONE & ity of tablet 00:00: ONE-HALF) [place] 00 TABLETS BY Medical MOUTH Branch THREE TIMES DAILY GABAPENTIN 2023-0 Yes [id number] TAKE 1 & [facility] 600 mg 1-19 1/2 (ONE & ity of tablet 00:00: ONE-HALF) [place] 00 TABLETS BY Medical MOUTH Branch THREE TIMES DAILY GABAPENTIN 2023-0 Yes [id number] TAKE 1 & [facility] 600 mg 1-19 1/2 (ONE & ity of tablet 00:00: ONE-HALF) [place] 00 TABLETS BY Medical MOUTH Branch THREE TIMES DAILY GABAPENTIN 2023-0 Yes [id number] TAKE 1 & [facility] 600 mg 1-19 1/2 (ONE & ity of tablet 00:00: ONE-HALF) [place] 00 TABLETS BY Medical MOUTH Branch THREE TIMES DAILY GABAPENTIN 2023-0 Yes [id number] TAKE 1 & [facility] 600 mg 1-19 1/2 (ONE & ity of tablet 00:00: ONE-HALF) [place] 00 TABLETS BY Medical MOUTH Branch THREE TIMES DAILY GABAPENTIN 2023-0 Yes [id number] TAKE 1 & [facility] 600 mg 1-19 1/2 (ONE & ity of tablet 00:00: ONE-HALF) [place] 00 TABLETS BY Medical MOUTH Branch THREE TIMES DAILY GABAPENTIN 2023-0 Yes [id number] TAKE 1 & [facility] 600 mg 1-19 1/2 (ONE & ity of tablet 00:00: ONE-HALF) [place] 00 TABLETS BY Medical MOUTH Branch THREE TIMES DAILY GABAPENTIN 2023-0 Yes [id number] TAKE 1 & [facility] 600 mg 1-19 1/2 (ONE & ity of tablet 00:00: ONE-HALF) [place] 00 TABLETS BY Medical MOUTH Branch THREE TIMES DAILY GABAPENTIN 2023-0 Yes [id number] TAKE 1 & [facility] 600 mg 1-19 1/2 (ONE & ity of tablet 00:00: ONE-HALF) [place] 00 TABLETS BY Medical MOUTH Branch THREE TIMES DAILY GABAPENTIN 2023-0 Yes [id number] TAKE 1 & [facility] 600 mg 1-19 1/2 (ONE & ity of tablet 00:00: ONE-HALF) [place] 00 TABLETS BY Medical MOUTH Branch THREE TIMES DAILY GABAPENTIN 2023-0 Yes [id number] TAKE 1 & [facility] 600 mg 1-19 1/2 (ONE & ity of tablet 00:00: ONE-HALF) [place] 00 TABLETS BY Medical MOUTH Branch THREE TIMES DAILY GABAPENTIN 2023-0 Yes [id number] TAKE 1 & [facility] 600 mg 1-19 1/2 (ONE & ity of tablet 00:00: ONE-HALF) [place] 00 TABLETS BY Medical MOUTH Branch THREE TIMES DAILY GABAPENTIN 2023-0 Yes [id number] TAKE 1 & [facility] 600 mg 1-19 1/2 (ONE & ity of tablet 00:00: ONE-HALF) [place] 00 TABLETS BY Medical MOUTH Branch THREE TIMES DAILY GABAPENTIN 2023-0 Yes [id number] TAKE 1 & [facility] 600 mg 1-19 1/2 (ONE & ity of tablet 00:00: ONE-HALF) [place] 00 TABLETS BY Medical MOUTH Branch THREE TIMES DAILY GABAPENTIN 2023-0 Yes [id number] TAKE 1 & [facility] 600 mg 1-19 1/2 (ONE & ity of tablet 00:00: ONE-HALF) [place] 00 TABLETS BY Medical MOUTH Branch THREE TIMES DAILY GABAPENTIN 2023-0 Yes [id number] TAKE 1 & [facility] 600 mg 1-19 1/2 (ONE & ity of tablet 00:00: ONE-HALF) [place] 00 TABLETS BY Medical MOUTH Branch THREE TIMES DAILY GABAPENTIN 2023-0 Yes [id number] TAKE 1 & [facility] 600 mg 1-19 1/2 (ONE & ity of tablet 00:00: ONE-HALF) [place] 00 TABLETS BY Medical MOUTH Branch THREE TIMES DAILY GABAPENTIN 2023-0 Yes [id number] TAKE 1 & [facility] 600 mg 1-19 1/2 (ONE & ity of tablet 00:00: ONE-HALF) [place] 00 TABLETS BY Medical MOUTH Branch THREE TIMES DAILY GABAPENTIN 2023-0 Yes [id number] TAKE 1 & [facility] 600 mg 1-19 1/2 (ONE & ity of tablet 00:00: ONE-HALF) [place] 00 TABLETS BY Medical MOUTH Branch THREE TIMES DAILY GABAPENTIN 2023-0 Yes [id number] TAKE 1 & [facility] 600 mg 1-19 1/2 (ONE & ity of tablet 00:00: ONE-HALF) [place] 00 TABLETS BY Medical MOUTH Branch THREE TIMES DAILY GABAPENTIN 2023-0 Yes [id number] TAKE 1 & [facility] 600 mg 1-19 1/2 (ONE & ity of tablet 00:00: ONE-HALF) [place] 00 TABLETS BY Medical MOUTH Branch THREE TIMES DAILY GABAPENTIN 2023-0 Yes [id number] TAKE 1 & [facility] 600 mg 1-19 1/2 (ONE & ity of tablet 00:00: ONE-HALF) [place] 00 TABLETS BY Medical MOUTH Branch THREE TIMES DAILY GABAPENTIN 2023-0 Yes [id number] TAKE 1 & [facility] 600 mg 1-19 1/2 (ONE & ity of tablet 00:00: ONE-HALF) [place] 00 TABLETS BY Medical MOUTH Branch THREE TIMES DAILY GABAPENTIN 2023-0 Yes [id number] TAKE 1 & [facility] 600 mg 1-19 1/2 (ONE & ity of tablet 00:00: ONE-HALF) [place] 00 TABLETS BY Medical MOUTH Branch THREE TIMES DAILY GABAPENTIN 2023-0 Yes [id number] TAKE 1 & [facility] 600 mg 1-19 1/2 (ONE & ity of tablet 00:00: ONE-HALF) [place] 00 TABLETS BY Medical MOUTH Branch THREE TIMES DAILY GABAPENTIN 2023-0 Yes [id number] TAKE 1 & [facility] 600 mg 1-19 1/2 (ONE & ity of tablet 00:00: ONE-HALF) [place] 00 TABLETS BY Medical MOUTH Branch THREE TIMES DAILY GABAPENTIN 2023-0 Yes [id number] TAKE 1 & [facility] 600 mg 1-19 1/2 (ONE & ity of tablet 00:00: ONE-HALF) [place] 00 TABLETS BY Medical MOUTH Branch THREE TIMES DAILY GABAPENTIN 2023-0 Yes [id number] TAKE 1 & [facility] 600 mg 1-19 1/2 (ONE & ity of tablet 00:00: ONE-HALF) [place] 00 TABLETS BY Medical MOUTH Branch THREE TIMES DAILY GABAPENTIN 2023-0 Yes [id number] TAKE 1 & [facility] 600 mg 1-19 1/2 (ONE & ity of tablet 00:00: ONE-HALF) [place] 00 TABLETS BY Medical MOUTH Branch THREE TIMES DAILY GABAPENTIN 2023-0 Yes [id number] TAKE 1 & [facility] 600 mg 1-19 1/2 (ONE & ity of tablet 00:00: ONE-HALF) [place] 00 TABLETS BY Medical MOUTH Branch THREE TIMES DAILY GABAPENTIN 2023-0 Yes [id number] TAKE 1 & [facility] 600 mg 1-19 1/2 (ONE & ity of tablet 00:00: ONE-HALF) [place] 00 TABLETS BY Medical MOUTH Branch THREE TIMES DAILY GABAPENTIN 2023-0 Yes [id number] TAKE 1 & [facility] 600 mg 1-19 1/2 (ONE & ity of tablet 00:00: ONE-HALF) [place] 00 TABLETS BY Medical MOUTH Branch THREE TIMES DAILY GABAPENTIN 2023-0 Yes [id number] TAKE 1 & [facility] 600 mg 1-19 1/2 (ONE & ity of tablet 00:00: ONE-HALF) [place] 00 TABLETS BY Medical MOUTH Branch THREE TIMES DAILY GABAPENTIN 2023-0 Yes [id number] TAKE 1 & [facility] 600 mg 1-19 1/2 (ONE & ity of tablet 00:00: ONE-HALF) [place] 00 TABLETS BY Medical MOUTH Branch THREE TIMES DAILY GABAPENTIN 2023-0 Yes [id number] TAKE 1 & [facility] 600 mg 1-19 1/2 (ONE & ity of tablet 00:00: ONE-HALF) [place] 00 TABLETS BY Medical MOUTH Branch THREE TIMES DAILY GABAPENTIN 2023-0 Yes [id number] TAKE 1 & [facility] 600 mg 1-19 1/2 (ONE & ity of tablet 00:00: ONE-HALF) [place] 00 TABLETS BY Medical MOUTH Branch THREE TIMES DAILY GABAPENTIN 2023-0 Yes [id number] TAKE 1 & [facility] 600 mg 1-19 1/2 (ONE & ity of tablet 00:00: ONE-HALF) [place] 00 TABLETS BY Medical MOUTH Branch THREE TIMES DAILY GABAPENTIN 2023-0 Yes [id number] TAKE 1 & [facility] 600 mg 1-19 1/2 (ONE & ity of tablet 00:00: ONE-HALF) [place] 00 TABLETS BY Medical MOUTH Branch THREE TIMES DAILY GABAPENTIN 2023-0 Yes [id number] TAKE 1 & [facility] 600 mg 1-19 1/2 (ONE & ity of tablet 00:00: ONE-HALF) [place] 00 TABLETS BY Medical MOUTH Branch THREE TIMES DAILY GABAPENTIN 2023-0 Yes [id number] TAKE 1 & [facility] 600 mg 1-19 1/2 (ONE & ity of tablet 00:00: ONE-HALF) [place] 00 TABLETS BY Medical MOUTH Branch THREE TIMES DAILY GABAPENTIN 2023-0 Yes [id number] TAKE 1 & [facility] 600 mg 1-19 1/2 (ONE & ity of tablet 00:00: ONE-HALF) [place] 00 TABLETS BY Medical MOUTH Branch THREE TIMES DAILY GABAPENTIN 2023-0 Yes [id number] TAKE 1 & [facility] 600 mg 1-19 1/2 (ONE & ity of tablet 00:00: ONE-HALF) [place] 00 TABLETS BY Medical MOUTH Branch THREE TIMES DAILY GABAPENTIN 2023-0 Yes [id number] TAKE 1 & [facility] 600 mg 1-19 1/2 (ONE & ity of tablet 00:00: ONE-HALF) [place] 00 TABLETS BY Medical MOUTH Branch THREE TIMES DAILY GABAPENTIN 2023-0 Yes [id number] TAKE 1 & [facility] 600 mg 1-19 1/2 (ONE & ity of tablet 00:00: ONE-HALF) [place] 00 TABLETS BY Medical MOUTH Branch THREE TIMES DAILY GABAPENTIN 2023-0 Yes [id number] TAKE 1 & [facility] 600 mg 1-19 1/2 (ONE & ity of tablet 00:00: ONE-HALF) [place] 00 TABLETS BY Medical MOUTH Branch THREE TIMES DAILY GABAPENTIN 2023-0 Yes [id number] TAKE 1 & [facility] 600 mg 1-19 1/2 (ONE & ity of tablet 00:00: ONE-HALF) [place] 00 TABLETS BY Medical MOUTH Branch THREE TIMES DAILY GABAPENTIN 2023-0 Yes [id number] TAKE 1 & [facility] 600 mg 1-19 1/2 (ONE & ity of tablet 00:00: ONE-HALF) [place] 00 TABLETS BY Medical MOUTH Branch THREE TIMES DAILY GABAPENTIN 2023-0 Yes [id number] TAKE 1 & [facility] 600 mg 1-19 1/2 (ONE & ity of tablet 00:00: ONE-HALF) [place] 00 TABLETS BY Medical MOUTH Branch THREE TIMES DAILY GABAPENTIN 2023-0 Yes [id number] TAKE 1 & [facility] 600 mg 1-19 1/2 (ONE & ity of tablet 00:00: ONE-HALF) [place] 00 TABLETS BY Medical MOUTH Branch THREE TIMES DAILY GABAPENTIN 2023-0 Yes [id number] TAKE 1 & [facility] 600 mg 1-19 1/2 (ONE & ity of tablet 00:00: ONE-HALF) [place] 00 TABLETS BY Medical MOUTH Branch THREE TIMES DAILY GABAPENTIN 2023-0 Yes [id number] TAKE 1 & [facility] 600 mg -19 1/2 (ONE & ity of tablet 00:00: ONE-HALF) [place] 00 TABLETS BY Medical MOUTH Branch THREE TIMES DAILY GABAPENTIN 2023-0 Yes [id number] TAKE 1 & [facility] 600 mg -19 1/2 (ONE & ity of tablet 00:00: ONE-HALF) [place] [id number] TABLETS BY Medical MOUTH Branch THREE TIMES DAILY GABAPENTIN 2023-0 2023- No [id number] TAKE 1 & [facility] 600 mg -19 -03 /2 (ONE & ity of tablet 00:00: 00:00 ONE-HALF) [place] 00 :00 TABLETS BY Medical MOUTH Branch THREE TIMES DAILY GABAPENTIN 2023-0 2023- No [id number] TAKE 1 & [facility] 600 mg -19 04-01 04/2 (ONE & ity of tablet 00:00: 00:00 ONE-HALF) [place] 00 :00 TABLETS BY Medical MOUTH Branch THREE TIMES DAILY bumetanide 2023-0 Yes [id number] Take 2tabs Univers 0.5 mg 1-10 in AM 1tab ity of tablet 00:00: in [place] [address] Medical Branch bumetanide 2023-0 Yes [id number] Take 2tabs Univers 0.5 mg 1-10 in AM 1tab ity of tablet 00:00: in [place] [address] Medical Branch bumetanide 2023-0 Yes [id number] Take 2tabs Univers 0.5 mg 1-10 in AM 1tab ity of tablet 00:00: in [place] [address] Medical Branch bumetanide 2023-0 Yes [id number] Take 2tabs Univers 0.5 mg 1-10 in AM 1tab ity of tablet 00:00: in [place] [address] Medical Branch bumetanide 2023-0 Yes [id number] Take 2tabs Univers 0.5 mg 1-10 in AM 1tab ity of tablet 00:00: in [place] [address] Medical Branch bumetanide 2023-0 Yes [id number] Take 2tabs [facility] 0.5 mg 1-10 in AM 1tab ity of tablet 00:00: in [place] [address] Medical Branch bumetanide 0 Yes [id number] Take 2tabs [facility] 0.5 mg 1-10 in AM 1tab ity of tablet 00:00: in [facility] Medical Branch bumetanide 0 Yes [id number] Take 2tabs Univers 0.5 mg 1-10 in AM 1tab ity of tablet 00:00: in [facility] Medical Branch bumetanide 0 Yes [id number] Take 2tabs Univers 0.5 mg 1-10 in AM 1tab ity of tablet 00:00: in [place] [address] Medical Branch bumetanide Yes [id number] Take 2tabs Univers 0.5 mg 1-10 in AM 1tab ity of tablet 00:00: in [facility] Medical Branch bumetanide 0 Yes [id number] Take 2tabs Univers 0.5 mg 1-10 in AM 1tab ity of tablet 00:00: in [facility] Medical Branch bumetanide 0 Yes [id number] Take 2tabs Univers 0.5 mg 1-10 in AM 1tab ity of tablet 00:00: in [place] [address] Medical Branch bumetanide 0 Yes [id number] Take 2tabs [facility] 0.5 mg 1-10 in AM 1tab ity of tablet 00:00: in [place] [address] Medical Branch bumetanide 0 Yes [id number] Take 2tabs Univers 0.5 mg 1-10 in AM 1tab ity of tablet 00:00: in [place] [address] Medical Branch bumetanide 0 Yes [id number] Take 2tabs [facility] 0.5 mg 1-10 in AM 1tab ity of tablet 00:00: in [place] [address] Medical Branch bumetanide 0 Yes [id number] Take 2tabs [facility] 0.5 mg 1-10 in AM 1tab ity of tablet 00:00: in [place] [address] Medical Branch bumetanide 0 Yes [id number] Take 2tabs [facility] 0.5 mg 1-10 in AM 1tab ity of tablet 00:00: in [place] [address] Medical Branch bumetanide 2023-0 Yes [id number] Take 2tabs [facility] 0.5 mg 1-10 in AM 1tab ity of tablet 00:00: in [facility] Medical Branch bumetanide 0 Yes [id number] Take 2tabs Univers 0.5 mg 1-10 in AM 1tab ity of tablet 00:00: in [facility] Medical Branch bumetanide 0 Yes [id number] Take 2tabs Univers 0.5 mg 1-10 in AM 1tab ity of tablet 00:00: in [facility] Medical Branch bumetanide 0 Yes [id number] Take 2tabs Univers 0.5 mg 1-10 in AM 1tab ity of tablet 00:00: in [facility] Medical Branch bumetanide 0 Yes [id number] Take 2tabs Univers 0.5 mg 1-10 in AM 1tab ity of tablet 00:00: in [place] [address] Medical Branch bumetanide 0 Yes [id number] Take 2tabs [facility] 0.5 mg 1-10 in AM 1tab ity of tablet 00:00: in [place] [address] Medical Branch bumetanide 0 Yes [id number] Take 2tabs [facility] 0.5 mg 1-10 in AM 1tab ity of tablet 00:00: in [place] [address] Medical Branch bumetanide 0 Yes [id number] Take 2tabs [facility] 0.5 mg 1-10 in AM 1tab ity of tablet 00:00: in [place] [address] Medical Branch bumetanide 0 Yes [id number] Take 2tabs [facility] 0.5 mg 1-10 in AM 1tab ity of tablet 00:00: in [place] [address] Medical Branch bumetanide 0 Yes [id number] Take 2tabs [facility] 0.5 mg 1-10 in AM 1tab ity of tablet 00:00: in [place] [address] Medical Branch bumetanide 0 Yes [id number] Take 2tabs [facility] 0.5 mg 1-10 in AM 1tab ity of tablet 00:00: in [place] [address] Medical Branch bumetanide 0 Yes [id number] Take 2tabs [facility] 0.5 mg 1-10 in AM 1tab ity of tablet 00:00: in [facility] Medical Branch bumetanide 0 Yes [id number] Take 2tabs [facility] 0.5 mg 1-10 in AM 1tab ity of tablet 00:00: in [facility] Medical Branch bumetanide 0 Yes [id number] Take 2tabs [facility] 0.5 mg 1-10 in AM 1tab ity of tablet 00:00: in [place] [address] Medical Branch bumetanide 0 Yes [id number] Take 2tabs [facility] 0.5 mg 1-10 in AM 1tab ity of tablet 00:00: in [place] [address] Medical Branch bumetanide 0 Yes [id number] Take 2tabs [facility] 0.5 mg 1-10 in AM 1tab ity of tablet 00:00: in [place] [address] Medical Branch bumetanide 0 Yes [id number] Take 2tabs [facility] 0.5 mg 1-10 in AM 1tab ity of tablet 00:00: in [place] [address] Medical Branch bumetanide 0 Yes [id number] Take 2tabs [facility] 0.5 mg 1-10 in AM 1tab ity of tablet 00:00: in [place] [address] Medical Branch bumetanide 0 Yes [id number] Take 2tabs [facility] 0.5 mg 1-10 in AM 1tab ity of tablet 00:00: in [place] [address] Medical Branch bumetanide 0 Yes [id number] Take 2tabs [facility] 0.5 mg 1-10 in AM 1tab ity of tablet 00:00: in [place] [address] Medical Branch bumetanide 0 Yes [id number] Take 2tabs [facility] 0.5 mg 1-10 in AM 1tab ity of tablet 00:00: in [place] [address] Medical Branch bumetanide 0 Yes [id number] Take 2tabs [facility] 0.5 mg 1-10 in AM 1tab ity of tablet 00:00: in [place] [address] Medical Branch bumetanide 0 Yes [id number] Take 2tabs [facility] 0.5 mg 1-10 in AM 1tab ity of tablet 00:00: in [place] [address] Medical Branch bumetanide 0 Yes [id number] Take 2tabs [facility] 0.5 mg 1-10 in AM 1tab ity of tablet 00:00: in [facility] Medical Branch bumetanide 0 Yes [id number] Take 2tabs [facility] 0.5 mg 1-10 in AM 1tab ity of tablet 00:00: in [place] [address] Medical Branch bumetanide 0 Yes [id number] Take 2tabs [facility] 0.5 mg 1-10 in AM 1tab ity of tablet 00:00: in [place] [address] Medical Branch bumetanide 0 Yes [id number] Take 2tabs [facility] 0.5 mg 1-10 in AM 1tab ity of tablet 00:00: in [place] [address] Medical Branch bumetanide 0 Yes [id number] Take 2tabs [facility] 0.5 mg 1-10 in AM 1tab ity of tablet 00:00: in [place] [address] Medical Branch bumetanide 0 Yes [id number] Take 2tabs [facility] 0.5 mg 1-10 in AM 1tab ity of tablet 00:00: in [place] [address] Medical Branch bumetanide 0 Yes [id number] Take 2tabs [facility] 0.5 mg 1-10 in AM 1tab ity of tablet 00:00: in [place] [address] Medical Branch bumetanide 0 Yes [id number] Take 2tabs [facility] 0.5 mg 1-10 in AM 1tab ity of tablet 00:00: in [place] [address] Medical Branch bumetanide 2022-0 3- No [id number] Take 2tabs [facility] 0.5 mg 1-10 -21 in AM 1tab ity of tablet 00:00: 00:00 in [facility] 00 :00 Medical Branch bumetanide 2022-0 3- No [id number] Take 2tabs Univers 0.5 mg 1-10 -21 in AM 1tab ity of tablet 00:00: 00:00 in [facility] 00 :00 Medical Branch predniSONE 2023-0 Yes [id number] 30mg Take 3 Univers 10 mg 1-06 tablets by ity of tablet 00:00: mouth in [place] 00 the Medical morning. Branch predniSONE 2023-0 Yes [id number] 30mg Take 3 Univers 10 mg 1-06 tablets by ity of tablet 00:00: mouth in [place] 00 the Medical morning. Branch predniSONE 2023-0 Yes [id number] 30mg Take 3 [facility] 10 mg 1-06 tablets by ity of tablet 00:00: mouth in [place] 00 the Medical morning. Branch predniSONE 2023-0 Yes [id number] 30mg Take 3 [facility] 10 mg 1-06 tablets by ity of tablet 00:00: mouth in [place] 00 the Medical morning. Branch predniSONE 2023-0 Yes [id number] 30mg Take 3 [facility] 10 mg 1-06 tablets by ity of tablet 00:00: mouth in [place] 00 the Medical morning. Branch predniSONE 2023-0 Yes [id number] 30mg Take 3 [facility] 10 mg 1-06 tablets by ity of tablet 00:00: mouth in [place] 00 the Medical morning. Branch predniSONE 2023-0 Yes [id number] 30mg Take 3 [facility] 10 mg 1-06 tablets by ity of tablet 00:00: mouth in [place] 00 the Medical morning. Branch predniSONE 2023-0 Yes [id number] 30mg Take 3 [facility] 10 mg 1-06 tablets by ity of tablet 00:00: mouth in [place] 00 the Medical morning. Branch predniSONE 2023-0 Yes [id number] 30mg Take 3 [facility] 10 mg 1-06 tablets by ity of tablet 00:00: mouth in [place] 00 the Medical morning. Branch predniSONE 2023-0 Yes [id number] 30mg Take 3 [facility] 10 mg 1-06 tablets by ity of tablet 00:00: mouth in [place] 00 the Medical morning. Branch predniSONE 2023-0 Yes [id number] 30mg Take 3 [facility] 10 mg 1-06 tablets by ity of tablet 00:00: mouth in [place] 00 the Medical morning. Branch predniSONE 2023-0 Yes [id number] 30mg Take 3 [facility] 10 mg 1-06 tablets by ity of tablet 00:00: mouth in [place] 00 the Medical morning. Branch predniSONE 2023-0 Yes [id number] 30mg Take 3 [facility] 10 mg 1-06 tablets by ity of tablet 00:00: mouth in [place] 00 the Medical morning. Branch predniSONE 2023-0 Yes [id number] 30mg Take 3 [facility] 10 mg 1-06 tablets by ity of tablet 00:00: mouth in [place] 00 the Medical morning. Branch predniSONE 2023-0 Yes [id number] 30mg Take 3 [facility] 10 mg 1-06 tablets by ity of tablet 00:00: mouth in [place] 00 the Medical morning. Branch predniSONE 2023-0 Yes [id number] 30mg Take 3 [facility] 10 mg 1-06 tablets by ity of tablet 00:00: mouth in [place] 00 the Medical morning. Branch predniSONE 2023-0 Yes [id number] 30mg Take 3 [facility] 10 mg 1-06 tablets by ity of tablet 00:00: mouth in [place] 00 the Medical morning. Branch predniSONE 2023-0 Yes [id number] 30mg Take 3 [facility] 10 mg 1-06 tablets by ity of tablet 00:00: mouth in [place] 00 the Medical morning. Branch predniSONE 2023-0 Yes [id number] 30mg Take 3 [facility] 10 mg 1-06 tablets by ity of tablet 00:00: mouth in [place] 00 the Medical morning. Branch predniSONE 2023-0 Yes [id number] 30mg Take 3 [facility] 10 mg 1-06 tablets by ity of tablet 00:00: mouth in [place] 00 the Medical morning. Branch predniSONE 2023-0 Yes [id number] 30mg Take 3 [facility] 10 mg 1-06 tablets by ity of tablet 00:00: mouth in [place] 00 the Medical morning. Branch predniSONE 2023-0 Yes [id number] 30mg Take 3 [facility] 10 mg 1-06 tablets by ity of tablet 00:00: mouth in [place] 00 the Medical morning. Branch predniSONE 2023-0 Yes [id number] 30mg Take 3 [facility] 10 mg 1-06 tablets by ity of tablet 00:00: mouth in [place] 00 the Medical morning. Branch predniSONE 2023-0 Yes [id number] 30mg Take 3 [facility] 10 mg 1-06 tablets by ity of tablet 00:00: mouth in [place] 00 the Medical morning. Branch predniSONE 2023-0 Yes [id number] 30mg Take 3 [facility] 10 mg 1-06 tablets by ity of tablet 00:00: mouth in [place] 00 the Medical morning. Branch predniSONE 2023-0 Yes [id number] 30mg Take 3 [facility] 10 mg 1-06 tablets by ity of tablet 00:00: mouth in [place] 00 the Medical morning. Branch predniSONE 2023-0 Yes [id number] 30mg Take 3 [facility] 10 mg 1-06 tablets by ity of tablet 00:00: mouth in [place] 00 the Medical morning. Branch predniSONE 2023-0 Yes [id number] 30mg Take 3 [facility] 10 mg 1-06 tablets by ity of tablet 00:00: mouth in [place] 00 the Medical morning. Branch predniSONE 2023-0 Yes [id number] 30mg Take 3 [facility] 10 mg 1-06 tablets by ity of tablet 00:00: mouth in [place] 00 the Medical morning. Branch predniSONE 2023-0 Yes [id number] 30mg Take 3 [facility] 10 mg 1-06 tablets by ity of tablet 00:00: mouth in [place] 00 the Medical morning. Branch predniSONE 2023-0 Yes [id number] 30mg Take 3 [facility] 10 mg 1-06 tablets by ity of tablet 00:00: mouth in [place] 00 the Medical morning. Branch predniSONE 2023-0 Yes [id number] 30mg Take 3 [facility] 10 mg 1-06 tablets by ity of tablet 00:00: mouth in [place] 00 the Medical morning. Branch predniSONE 2023-0 Yes [id number] 30mg Take 3 [facility] 10 mg 1-06 tablets by ity of tablet 00:00: mouth in [place] 00 the Medical morning. Branch predniSONE 2023-0 Yes [id number] 30mg Take 3 [facility] 10 mg 1-06 tablets by ity of tablet 00:00: mouth in [place] 00 the Medical morning. Branch predniSONE 2023-0 Yes [id number] 30mg Take 3 [facility] 10 mg 1-06 tablets by ity of tablet 00:00: mouth in [place] 00 the Medical morning. Branch predniSONE 2023-0 Yes [id number] 30mg Take 3 [facility] 10 mg 1-06 tablets by ity of tablet 00:00: mouth in [place] 00 the Medical morning. Branch predniSONE 2023-0 Yes [id number] 30mg Take 3 [facility] 10 mg 1-06 tablets by ity of tablet 00:00: mouth in [place] 00 the Medical morning. Branch predniSONE 2023-0 Yes [id number] 30mg Take 3 [facility] 10 mg 1-06 tablets by ity of tablet 00:00: mouth in [place] 00 the Medical morning. Branch predniSONE 2023-0 Yes [id number] 30mg Take 3 [facility] 10 mg 1-06 tablets by ity of tablet 00:00: mouth in [place] 00 the Medical morning. Branch predniSONE 2023-0 Yes [id number] 30mg Take 3 [facility] 10 mg 1-06 tablets by ity of tablet 00:00: mouth in [place] 00 the Medical morning. Branch predniSONE 2023-0 Yes [id number] 30mg Take 3 [facility] 10 mg 1-06 tablets by ity of tablet 00:00: mouth in [place] 00 the Medical morning. Branch predniSONE 2023-0 Yes [id number] 30mg Take 3 [facility] 10 mg 1-06 tablets by ity of tablet 00:00: mouth in [place] 00 the Medical morning. Branch predniSONE 2023-0 Yes [id number] 30mg Take 3 [facility] 10 mg 1-06 tablets by ity of tablet 00:00: mouth in [place] 00 the Medical morning. Branch predniSONE 2023-0 Yes [id number] 30mg Take 3 [facility] 10 mg 1-06 tablets by ity of tablet 00:00: mouth in [place] 00 the Medical morning. Branch predniSONE 2023-0 Yes [id number] 30mg Take 3 [facility] 10 mg 1-06 tablets by ity of tablet 00:00: mouth in [place] 00 the Medical morning. Branch predniSONE 2023-0 Yes [id number] 30mg Take 3 [facility] 10 mg 1-06 tablets by ity of tablet 00:00: mouth in [place] 00 the Medical morning. Branch predniSONE 2023-0 Yes [id number] 30mg Take 3 [facility] 10 mg 1-06 tablets by ity of tablet 00:00: mouth in [place] 00 the Medical morning. Branch predniSONE 2023-0 Yes [id number] 30mg Take 3 [facility] 10 mg 1-06 tablets by ity of tablet 00:00: mouth in [place] 00 the Medical morning. Branch predniSONE 2023-0 Yes [id number] 30mg Take 3 [facility] 10 mg 1-06 tablets by ity of tablet 00:00: mouth in [place] 00 the Medical morning. Branch predniSONE 2023-0 Yes [id number] 30mg Take 3 [facility] 10 mg 1-06 tablets by ity of tablet 00:00: mouth in [place] 00 the Medical morning. Branch predniSONE 2023-0 Yes [id number] 30mg Take 3 [facility] 10 mg 1-06 tablets by ity of tablet 00:00: mouth in [place] 00 the Medical morning. Branch predniSONE 2023-0 Yes [id number] 30mg Take 3 [facility] 10 mg 1-06 tablets by ity of tablet 00:00: mouth in [place] 00 the Medical morning. Branch predniSONE 2023-0 2023- No [id number] 30mg Take 3 Univers 10 mg 11-11-17 tablets by ity of tablet 00:00: 00:00 mouth in [place] 00 :00 the Medical morning. Branch predniSONE 2022-0 2022- No [id number] 30mg Take 3 Univers 10 mg 11-11-17 tablets by ity of tablet 00:00: 00:00 mouth in [place] 00 :00 the Medical morning. Branch amitriptyli 0 Yes TAKE 1 Univ ers ne 50 mg 1-02 TABLET BY ity of tablet 00:00: MOUTH ONCE [place] 00 DAILY AT Medical NIGHT Branch amitriptyli Yes TAKE 1 Univ ers ne 50 mg 1-02 TABLET BY ity of tablet 00:00: MOUTH ONCE 00 DAILY AT Medical NIGHT Branch amitriptyli [...] tablet 00:00: MOUTH ONCE 00 DAILY AT Medical NIGHT Branch amitriptyli [...] tablet 00:00: MOUTH ONCE 00 DAILY AT Medical NIGHT Branch amitriptyli 2022-0 Yes TAKE 1 Univ ers ne 50 mg 1-02 TABLET BY ity of tablet 00:00: MOUTH ONCE [place] 00 DAILY AT Medical NIGHT Branch amitriptyli 2022-0 Yes TAKE 1 Univ ers ne 50 mg 1-02 TABLET BY ity of tablet 00:00: MOUTH ONCE [place] 00 DAILY AT Medical NIGHT Branch amitriptyli 2022-0 Yes TAKE 1 Univ ers ne 50 mg 1-02 TABLET BY ity of tablet 00:00: MOUTH ONCE [place] 00 DAILY AT [facility] NIGHT Branch amitriptyli Yes TAKE 1 [facility] ers ne 50 mg 1-02 TABLET BY ity of tablet 00:00: MOUTH ONCE [place] 00 DAILY AT [facility] NIGHT Branch amitriptyli Yes TAKE 1 Univ ers ne 50 mg 1-02 TABLET BY ity of tablet 00:00: MOUTH ONCE [place] 00 DAILY AT [facility] NIGHT Branch amitriptyli Yes TAKE 1 [facility] ers ne 50 mg 1-02 TABLET BY ity of tablet 00:00: MOUTH ONCE [place] 00 DAILY AT [facility] NIGHT Branch amitriptyli Yes TAKE 1 [facility] ers ne 50 mg 1-02 TABLET BY ity of tablet 00:00: MOUTH ONCE [place] 00 DAILY AT [facility] NIGHT Branch amitriptyli Yes TAKE 1 [facility] ers ne 50 mg 1-02 TABLET BY ity of tablet 00:00: MOUTH ONCE 00 DAILY AT [facility] NIGHT Branch amitriptyli Yes TAKE 1 [facility] ers ne 50 mg 1-02 TABLET BY ity of tablet 00:00: MOUTH ONCE [place] 00 DAILY AT [facility] NIGHT Branch amitriptyli Yes TAKE 1 [facility] ers ne 50 mg 1-02 TABLET BY ity of tablet 00:00: MOUTH ONCE [place] 00 DAILY AT [facility] NIGHT Branch amitriptyli Yes TAKE 1 [facility] ers ne 50 mg 1-02 TABLET BY ity of tablet 00:00: MOUTH ONCE [place] 00 DAILY AT [facility] NIGHT Branch amitriptyli 2022- Yes TAKE 1 Univ ers ne 50 mg 1-02 TABLET BY ity of tablet 00:00: MOUTH ONCE [place] 00 DAILY AT [facility] NIGHT Branch amitriptyli 2022- Yes TAKE 1 [facility] ers ne 50 mg 1-02 TABLET BY ity of tablet 00:00: MOUTH ONCE [place] 00 DAILY AT [facility] NIGHT Branch amitriptyli 2022- Yes TAKE 1 Univ ers ne 50 mg 1-02 TABLET BY ity of tablet 00:00: MOUTH ONCE [place] 00 DAILY AT [facility] NIGHT Branch amitriptyli Yes TAKE 1 [facility] ers ne 50 mg 1-02 TABLET BY ity of tablet 00:00: MOUTH ONCE [place] 00 DAILY AT [facility] NIGHT Branch amitriptyli 2022-0 Yes TAKE 1 [facility] ers ne 50 mg 1-02 TABLET BY ity of tablet 00:00: MOUTH ONCE [place] 00 DAILY AT [facility] NIGHT Branch amitriptyli 2022-0 Yes TAKE 1 [facility] ers ne 50 mg 1-02 TABLET BY ity of tablet 00:00: MOUTH ONCE [place] 00 DAILY AT [facility] NIGHT Branch amitriptyli 0 Yes TAKE 1 [facility] ers ne 50 mg 1-02 TABLET BY ity of tablet 00:00: MOUTH ONCE [place] 00 DAILY AT [facility] NIGHT Branch amitriptyli 2022-0 Yes TAKE 1 [facility] ers ne 50 mg 1-02 TABLET BY ity of tablet 00:00: MOUTH ONCE [place] 00 DAILY AT [facility] NIGHT Branch amitriptyli Yes TAKE 1 [facility] ers ne 50 mg 1-02 TABLET BY ity of tablet 00:00: MOUTH ONCE 00 DAILY AT [facility] amitriptyli 2022-0 Yes TAKE 1 Univ ers ne 50 mg 1-02 TABLET BY ity of tablet 00:00: MOUTH ONCE 00 DAILY AT [facility] Branch amitriptyli 2022-0 Yes TAKE 1 Univ ers ne 50 mg 1-02 TABLET BY ity of tablet 00:00: MOUTH ONCE 00 DAILY AT [facility] NIGHT Branch amitriptyli 2022- Yes TAKE 1 [facility] ers ne 50 mg 1-02 TABLET BY ity of tablet 00:00: MOUTH ONCE 00 DAILY AT [facility] Branch amitriptyli 2022-0 Yes TAKE 1 [facility] ers ne 50 mg 1-02 TABLET BY ity of tablet 00:00: MOUTH ONCE 00 DAILY AT [facility] Branch amitriptyli 2022-0 Yes TAKE 1 Univ ers ne 50 mg 1-02 TABLET BY ity of tablet 00:00: MOUTH ONCE [place] 00 DAILY AT [facility] NIGHT Branch amitriptyli 2022-0 Yes TAKE 1 [facility] ers ne 50 mg 1-02 TABLET BY ity of tablet 00:00: MOUTH ONCE 00 DAILY AT [facility] NIGHT Branch amitriptyli 2022-0 Yes TAKE 1 [facility] ers ne 50 mg 1-02 TABLET BY ity of tablet 00:00: MOUTH ONCE [place] 00 DAILY AT [facility] NIGHT Branch amitriptyli 2022-0 Yes TAKE 1 [facility] ers ne 50 mg 1-02 TABLET BY ity of tablet 00:00: MOUTH ONCE [place] 00 DAILY AT [facility] NIGHT Branch amitriptyli Yes TAKE 1 Univ ers ne 50 mg 11-07 TABLET BY ity of tablet 00:00: MOUTH ONCE [place] 00 DAILY AT Medical NIGHT Branch Insulin 2021-11 Yes [id number] INJECT 53 U nivers [place] 2-23 UNITS ity of ([place] 00:00: [place] 00 USLY TWICE Medic al U-100 DAILY Branch INSULIN) 100 unit/mL (3 mL) injection Insulin 2021-11 Yes [id number] INJECT 53 U nivers [place] 2-23 UNITS ity of ([place] 00:00: [place] 00 USLY TWICE Medic al U-100 DAILY Branch INSULIN) 100 unit/mL (3 mL) injection Insulin 2021-11 Yes [id number] INJECT 53 U nivers [place] 2-23 UNITS ity of ([place] 00:00: [place] 00 USLY TWICE Medic al U-100 DAILY Branch INSULIN) 100 unit/mL (3 mL) injection Insulin 2021-11 Yes [id number] INJECT 53 U nivers [place] 2-23 UNITS ity of ([place] 00:00: [place] 00 USLY TWICE Medic al U-100 DAILY Branch INSULIN) 100 unit/mL (3 mL) injection Insulin 2021-11 Yes [id number] INJECT 53 U nivers [place] 2-23 UNITS ity of ([place] 00:00: [place] 00 USLY TWICE Medic al U-100 DAILY Branch INSULIN) 100 unit/mL (3 mL) injection Insulin 2021-11 Yes [id number] INJECT 53 U nivers [place] 2-23 UNITS ity of ([place] 00:00: [place] 00 USLY TWICE Medic al U-100 DAILY Branch INSULIN) 100 unit/mL (3 mL) injection Insulin 2021-11 Yes [id number] INJECT 53 U nivers [place] 2-23 UNITS ity of ([place] 00:00: [place] 00 USLY TWICE Medic al U-100 DAILY Branch INSULIN) 100 unit/mL (3 mL) injection Insulin 2021-11 Yes [id number] INJECT 53 U nivers [place] 2-23 UNITS ity of ([place] 00:00: [place] 00 USLY TWICE Medic al U-100 DAILY Branch INSULIN) 100 unit/mL (3 mL) injection Insulin 2021-11 Yes [id number] INJECT 53 U nivers [place] 2-23 UNITS ity of ([place] 00:00: [place] 00 USLY TWICE Medic al U-100 DAILY Branch INSULIN) 100 unit/mL (3 mL) injection Insulin 2021-11 Yes [id number] INJECT 53 U nivers [place] 2-23 UNITS ity of ([place] 00:00: [place] 00 USLY TWICE Medic al U-100 DAILY Branch INSULIN) 100 unit/mL (3 mL) injection Insulin 2021-11 Yes [id number] INJECT 53 U nivers [place] 2-23 UNITS ity of ([place] 00:00: [place] 00 USLY TWICE Medic al U-100 DAILY Branch INSULIN) 100 unit/mL (3 mL) injection Insulin 2021-11 Yes [id number] INJECT 53 U nivers [place] 2-23 UNITS ity of ([place] 00:00: [place] 00 USLY TWICE Medic al U-100 DAILY Branch INSULIN) 100 unit/mL (3 mL) injection Insulin 2021-11 Yes [id number] INJECT 53 U nivers [place] 2-23 UNITS ity of ([place] 00:00: [place] 00 USLY TWICE Medic al U-100 DAILY Branch INSULIN) 100 unit/mL (3 mL) injection Insulin 2021-11 Yes [id number] INJECT 53 U nivers [place] 2-23 UNITS ity of ([place] 00:00: [place] 00 USLY TWICE Medic al U-100 DAILY Branch INSULIN) 100 unit/mL (3 mL) injection Insulin 2021-11 Yes [id number] INJECT 53 U nivers [place] 2-23 UNITS ity of ([place] 00:00: [place] 00 USLY TWICE Medic al U-100 DAILY Branch INSULIN) 100 unit/mL (3 mL) injection Insulin 2021-11 Yes [id number] INJECT 53 U nivers [place] 2-23 UNITS ity of ([place] 00:00: [place] 00 USLY TWICE Medic al U-100 DAILY Branch INSULIN) 100 unit/mL (3 mL) injection Insulin 2021-11 Yes [id number] INJECT 53 U nivers [place] 2-23 UNITS ity of ([place] 00:00: [place] 00 USLY TWICE Medic al U-100 DAILY Branch INSULIN) 100 unit/mL (3 mL) injection Insulin 2021-11 Yes [id number] INJECT 53 U nivers [place] 2-23 UNITS ity of ([place] 00:00: [place] 00 USLY TWICE Medic al U-100 DAILY Branch INSULIN) 100 unit/mL (3 mL) injection Insulin 2021-11 Yes [id number] INJECT 53 U nivers [place] 2-23 UNITS ity of ([place] 00:00: [place] 00 USLY TWICE Medic al U-100 DAILY Branch INSULIN) 100 unit/mL (3 mL) injection Insulin 2021-11 Yes [id number] INJECT 53 U nivers [place] 2-23 UNITS ity of ([place] 00:00: [place] 00 USLY TWICE Medic al U-100 DAILY Branch INSULIN) 100 unit/mL (3 mL) injection Insulin 2021-11 Yes [id number] INJECT 53 U nivers [place] 2-23 UNITS ity of ([place] 00:00: [place] 00 USLY TWICE Medic al U-100 DAILY Branch INSULIN) 100 unit/mL (3 mL) injection Insulin 2021-11 Yes [id number] INJECT 53 U nivers [place] 2-23 UNITS ity of ([place] 00:00: [place] [facility] US[facility] TWICE [facility] DAILY [facility] INSULIN) 100 unit/mL (3 mL) injection Insulin 2021-11 Yes [id number] INJECT 53 [facility] [place] 2-23 UNITS [facility] ([place] 00:[place] [facility] USLY TWICE [facility]-100 DAILY [facility] INSULIN) 100 unit/mL (3 mL) injection Insulin 2021-11 Yes [id number] INJECT 53 [facility] [place] 2-23 UNITS [facility] ([place] 00:[place] USLY TWICE [facility]-100 DAILY [facility] INSULIN) 100 unit/mL (3 mL) injection Insulin 2021-11 Yes [id number] INJECT 53 [facility] [place] 2-23 UNITS [facility] ([place] 00:[place] USLY TWICE [facility]-100 DAILY [facility] INSULIN) 100 unit/mL (3 mL) injection Insulin 2021-11 Yes [id number] INJECT 53 [facility] [place] 2-23 UNITS [facility] ([place] 00:[place] USLY TWICE [facility]-100 DAILY [facility] INSULIN) 100 unit/mL (3 mL) injection Insulin 2021-11 Yes [id number] INJECT 53 [facility] [place] 2-23 UNITS [facility] ([place] 00:[place] USLY TWICE [facility]-100 DAILY [facility] INSULIN) 100 unit/mL (3 mL) injection Insulin 2021-11 Yes [id number] INJECT 53 [facility] [place] 2-23 UNITS [facility] ([place] 00:[place] USLY TWICE [facility]-100 DAILY [facility] INSULIN) 100 unit/mL (3 mL) injection Insulin 2021-11 Yes [id number] INJECT 53 [facility] [place] 2-23 UNITS [facility] ([place] 00:[place] USLY TWICE [facility]-100 DAILY [facility] INSULIN) 100 unit/mL (3 mL) injection Insulin 2021-11 Yes [id number] INJECT 53 [facility] [place] 2-23 UNITS [facility] ([place] 00:[place] USLY TWICE [facility]-100 DAILY [facility] INSULIN) 100 unit/mL (3 mL) injection Insulin 2021-11 Yes [id number] INJECT 53 [facility] [place] 2-23 UNITS [facility] ([place] 00:[place] USLY TWICE [facility]-100 DAILY [facility] INSULIN) 100 unit/mL (3 mL) injection Insulin 2021-11 Yes [id number] INJECT 53 [facility] [place] 2-23 UNITS [facility] ([place] 00:[place]: [place] USLY TWICE [facility]-100 DAILY [facility] INSULIN) 100 unit/mL (3 mL) injection Insulin 2021-11 Yes [id number] INJECT 53 [facility] [place] 2-23 UNITS [facility] ([place] 00:[place] USLY TWICE [facility]-100 DAILY [facility] INSULIN) 100 unit/mL (3 mL) injection Insulin 2021-11 Yes [id number] INJECT 53 [facility] [place] 2-23 UNITS [facility] ([place] 00:[place] USLY TWICE [facility]-100 DAILY [facility] INSULIN) 100 unit/mL (3 mL) injection Insulin 2021-11 Yes [id number] INJECT 53 [facility] [place] 2-23 UNITS [facility] ([place] 00:[place]: [place] USLY TWICE [facility]-100 DAILY [facility] INSULIN) 100 unit/mL (3 mL) injection Insulin 2021-11 Yes [id number] INJECT 53 [facility] [place] 2-23 UNITS [facility] ([place] 00:[place]: [place] USLY TWICE [facility]-100 DAILY [facility] INSULIN) 100 unit/mL (3 mL) injection Insulin 2021-11 Yes [id number] INJECT 53 [facility] [place] 2-23 UNITS [facility] of ([place] 00:[place]: [place] USLY TWICE [facility]-100 DAILY [facility] INSULIN) 100 unit/mL (3 mL) injection Insulin 2021-11 Yes [id number] INJECT 53 [facility] [place] 2-23 UNITS [facility] ([place] 00:00: [place] USLY TWICE [facility]-100 DAILY [facility] INSULIN) 100 unit/mL (3 mL) injection Insulin 2021-11 Yes [id number] INJECT 53 [facility] [place] 2-23 UNITS [facility] of ([place] 00:[place]: [place] USLY TWICE [facility]-100 DAILY Branch INSULIN) 100 unit/mL (3 mL) injection Insulin 2021-11 Yes [id number] INJECT 53 [facility] [place] 2-23 UNITS [facility] of ([place] 00:[place]: [place] USLY TWICE [facility]-100 DAILY [facility] INSULIN) 100 unit/mL (3 mL) injection Insulin 2021-11 Yes [id number] INJECT 53 [facility] [place] 2-23 UNITS [facility] of ([place] 00:00: [place] USLY TWICE Medic al U-100 DAILY [facility] INSULIN) 100 unit/mL (3 mL) injection Insulin 2021-11 Yes [id number] INJECT 53 [facility] [place] 2-23 UNITS [facility] of ([place] 00:00: [place] USLY TWICE Medic al [facility]-100 DAILY [facility] INSULIN) 100 unit/mL (3 mL) injection Insulin 2021-11 Yes [id number] INJECT 53 [facility] [place] 2-23 UNITS [facility] of ([place] 00:00: [place] USLY TWICE Medic [facility]-100 DAILY [facility] INSULIN) 100 unit/mL (3 mL) injection Insulin 2021-11 Yes [id number] INJECT 53 [facility] [place] 2-23 UNITS [facility] of ([place] 00:[place]: [place] USLY TWICE [facility] U-100 DAILY [facility] INSULIN) 100 unit/mL (3 mL) injection Insulin 2021-11 Yes [id number] INJECT 53 [facility] [place] 2-23 UNITS [facility] of ([place] 00:00: [place] USLY TWICE Medic al U-100 DAILY [facility] INSULIN) 100 unit/mL (3 mL) injection Insulin 2021-11 Yes [id number] INJECT 53 [facility] [place] 2-23 UNITS [facility] of ([place] 00:00: [place] USLY TWICE [facility] al [facility]-100 DAILY [facility] INSULIN) 100 unit/mL (3 mL) injection Insulin 2021-11 Yes [id number] INJECT 53 [facility] [place] 2-23 UNITS [facility] of ([place] 00:[place]: [place] USLY TWICE [facility]-100 DAILY [facility] INSULIN) 100 unit/mL (3 mL) injection Insulin 2021-11 Yes [id number] INJECT 53 [facility] [place] 2-23 UNITS [facility] of ([place] 00:[place]: [place] USLY TWICE [facility]-100 DAILY [facility] INSULIN) 100 unit/mL (3 mL) injection Insulin 2021-11 Yes [id number] INJECT 53 [facility] [place] 2-23 UNITS [facility] of ([place] 00:[place]: [place] USLY TWICE [facility]-100 DAILY [facility] INSULIN) 100 unit/mL (3 mL) injection Insulin 2021-11 Yes [id number] INJECT 53 [facility] [place] 2-23 UNITS [facility] of ([place] 00:[place]: [place] USLY TWICE [facility]-100 DAILY [facility] INSULIN) 100 unit/mL (3 mL) injection Insulin 2021-11 Yes [id number] INJECT 53 [facility] [place] 2-23 UNITS [facility] of ([place] 00:[place]: [place] USLY TWICE [facility]-100 DAILY [facility] INSULIN) 100 unit/mL (3 mL) injection Insulin 2021-11 Yes [id number] INJECT 53 [facility] [place] 2-23 UNITS [facility] ([place] 00:[place]: [place] USLY TWICE [facility]-100 DAILY [facility] INSULIN) 100 unit/mL (3 mL) injection Insulin 2021-11 Yes [id number] INJECT 53 [facility] [place] 2-23 UNITS [facility] of ([place] 00:[place]: [place] USLY TWICE [facility]-100 DAILY [facility] INSULIN) 100 unit/mL (3 mL) injection Insulin 2021-11 Yes [id number] INJECT 53 [facility] [place] 2-23 UNITS [facility] of ([place] 00:[place]: [place] USLY TWICE [facility]-100 DAILY [facility] INSULIN) 100 unit/mL (3 mL) injection Insulin 2021-11 Yes [id number] INJECT 53 [facility] [place] 2-23 UNITS [facility] ([place] 00:[place]: [place] USLY TWICE Medic al U-100 DAILY Branch INSULIN) 100 unit/mL (3 mL) injection Insulin 2021-11 Yes [id number] INJECT 53 [facility] [place] 2-23 UNITS [facility] of ([place] 00:[place]: [place] USLY TWICE Medic al U-100 DAILY Branch INSULIN) 100 unit/mL (3 mL) injection Insulin 2021-11 Yes [id number] INJECT 53 [facility] [place] 2-23 UNITS [facility] of ([place] 00:[place]: [place] USLY TWICE Medic [facility] U-100 DAILY Branch INSULIN) 100 unit/mL (3 mL) injection Insulin 2021-11 Yes [id number] INJECT 53 [facility] [place] 2-23 UNITS [facility] ([place] 00:[place]: [place] USLY TWICE Medic al [facility]-100 DAILY Branch INSULIN) 100 unit/mL (3 mL) injection Insulin 2021-11 Yes [id number] INJECT 53 [facility] [place] 2-23 UNITS [facility] of ([place] 00:[place]: [place] USLY TWICE Medic [facility] U-100 DAILY [facility] INSULIN) 100 unit/mL (3 mL) injection Insulin 2021-11 Yes [id number] INJECT 53 [facility] [place] 2-23 UNITS [facility] of ([place] 00:[place]: [place] USLY TWICE Medic al U-100 DAILY Branch INSULIN) 100 unit/mL (3 mL) injection Insulin 2021-11 Yes [id number] INJECT 53 [facility] [place] 2-23 UNITS [facility] of ([place] 00:00: [place] USLY TWICE Medic al U-100 DAILY Branch INSULIN) 100 unit/mL (3 mL) injection Insulin 2021-11 Yes [id number] INJECT 53 [facility] [place] 2-23 UNITS [facility] of ([place] 00:00: [place] USLY TWICE Medic al U-100 DAILY Branch INSULIN) 100 unit/mL (3 mL) injection Insulin 2021-11 Yes [id number] INJECT 53 [facility] [place] 2-23 UNITS [facility] of ([place] 00:00: [place] 00 USLY TWICE Medic al U-100 DAILY Branch INSULIN) 100 unit/mL (3 mL) injection Insulin 2021-11 Yes [id number] INJECT 53 [facility] [place] 2-23 UNITS [facility] of ([place] 00:00: [place] 00 USLY TWICE Medic al U-100 DAILY Branch INSULIN) 100 unit/mL (3 mL) injection Insulin 2021-11 Yes [id number] INJECT 53 [facility] [place] 2-23 UNITS [facility] of ([place] 00:[place]: [place] USLY TWICE Medic al U-100 DAILY Branch INSULIN) 100 unit/mL (3 mL) injection Insulin 2021-11 Yes [id number] INJECT 53 [facility] [place] 2-23 UNITS [facility] of ([place] 00:00: [place] USLY TWICE Medic al U-100 DAILY Branch INSULIN) 100 unit/mL (3 mL) injection Insulin 2021-11 Yes [id number] INJECT 53 [facility] [place] 2-23 UNITS ity of ([place] 00:00: [place] USLY TWICE Medic al U-100 DAILY Branch INSULIN) 100 unit/mL (3 mL) injection Insulin 2021-11 Yes [id number] INJECT 53 [facility] [place] 2-23 UNITS [facility]y of ([place] 00:00: [place] 00 USLY TWICE Medic al U-100 DAILY Branch INSULIN) 100 unit/mL (3 mL) injection Insulin 2021-11 Yes [id number] INJECT 53 [facility] [place] 2-23 UNITS [facility]y of ([place] 00:00: [place] 00 USLY TWICE Medic al U-100 DAILY Branch INSULIN) 100 unit/mL (3 mL) injection Insulin 2021-11 Yes [id number] INJECT 53 [facility] [place] 2-23 UNITS [facility]y of ([place] 00:00: [place] 00 USLY TWICE Medic al U-100 DAILY Branch INSULIN) 100 unit/mL (3 mL) injection Insulin 2021-11 Yes [id number] INJECT 53 [facility] [place] 2-23 UNITS ity of ([place] 00:00: [place] USLY TWICE Medic al U-100 DAILY Branch INSULIN) 100 unit/mL (3 mL) injection Insulin 2021-11 Yes [id number] INJECT 53 [facility] [place] 2-23 UNITS ity of ([place] 00:00: [place] USLY TWICE Medic al U-100 DAILY Branch INSULIN) 100 unit/mL (3 mL) injection Insulin 2021-11 Yes [id number] INJECT 53 [facility] [place] 2-23 UNITS [facility]y of ([place] 00:00: [place] USLY TWICE Medic al U-100 DAILY Branch INSULIN) 100 unit/mL (3 mL) injection Insulin 2021-11 Yes [id number] INJECT 53 [facility] [place] 2-23 UNITS ity of ([place] 00:00: [place] 00 USLY TWICE Medic al U-100 DAILY Branch INSULIN) 100 unit/mL (3 mL) injection Insulin 2021-11 Yes [id number] INJECT 53 [facility] [place] 2-23 UNITS [facility]y of ([place] 00:00: [place] 00 USLY TWICE Medic al U-100 DAILY Branch INSULIN) 100 unit/mL (3 mL) injection Insulin 2021-11 Yes [id number] INJECT 53 [facility] [place] 2-23 UNITS ity of ([place] 00:00: [place] USLY TWICE Medic al U-100 DAILY Branch INSULIN) 100 unit/mL (3 mL) injection Insulin 2021-11 Yes [id number] INJECT 53 [facility] [place] 2-23 UNITS ity of ([place] 00:00: [place] USLY TWICE Medic al U-100 DAILY Branch INSULIN) 100 unit/mL (3 mL) injection Insulin 2021-11 Yes [id number] INJECT 53 U [facility] [place] 2-23 UNITS ity of ([place] 00:00: [place] USLY TWICE Medic al U-100 DAILY Branch INSULIN) 100 unit/mL (3 mL) injection Insulin 2021-11 Yes [id number] INJECT 53 U [facility] [place] 2-23 UNITS ity of ([place] 00:00: [place] USLY TWICE Medic al U-100 DAILY Branch INSULIN) 100 unit/mL (3 mL) injection Insulin 2021-11 Yes [id number] INJECT 53 U [facility] [place] 2-23 UNITS ity of ([place] 00:00: [place] USLY TWICE Medic al U-100 DAILY Branch INSULIN) 100 unit/mL (3 mL) injection Insulin 2021-11 Yes [id number] INJECT 53 [facility] [place] 2-23 UNITS ity of ([place] 00:00: [place] USLY TWICE Medic al U-100 DAILY Branch INSULIN) 100 unit/mL (3 mL) injection Insulin 2021-11 Yes [id number] INJECT 53 U [facility] [place] 2-23 UNITS ity of ([place] 00:00: [place] USLY TWICE Medic al U-100 DAILY Branch INSULIN) 100 unit/mL (3 mL) injection Insulin 2021-11 Yes [id number] INJECT 53 U [facility] [place] 2-23 UNITS ity of ([place] 00:00: [place] USLY TWICE Medic al U-100 DAILY Branch INSULIN) 100 unit/mL (3 mL) injection Insulin 2021-11 Yes [id number] INJECT 53 U [facility] [place] 2-23 UNITS ity of ([place] 00:00: [place] USLY TWICE Medic al U-100 DAILY Branch INSULIN) 100 unit/mL (3 mL) injection Insulin 2021-11- No [id number] INJECT 53 [facility] [place] 2-23 04-28 UNITS ity of ([place] 00:00: 00:00 [facility]UTANE[place] [facility] 00 :00 USLY TWICE Medic al U-100 DAILY [place] INSULIN) 100 unit/mL (3 mL) injection EUTHYROX 2021-11 Yes [id number] TAKE 1 [facility] 125 mcg 2-19 TABLET BY ity of tablet 00:00: MOUTH ONCE [place] 00 DAILY IN [facility] MORNING EUTHYROX 2021-11 Yes [id number] TAKE 1 [facility] [place] 125 mcg 2-19 TABLET BY ity of tablet 00:00: MOUTH ONCE 00 DAILY IN [facility] MORNING EUTHYROX 2021-11 Yes [id number] TAKE 1 [facility] [place] 125 mcg 2-19 TABLET BY ity of tablet 00:00: MOUTH ONCE [place] 00 DAILY IN [facility] EUTHYROX 2021-11 Yes [id number] TAKE 1 [facility] [place] 125 mcg 2-19 TABLET BY ity of tablet 00:00: MOUTH ONCE [place] 00 DAILY IN [facility] EUTHYROX 2021-11 Yes [id number] TAKE 1 [facility] [place] 125 mcg 2-19 TABLET BY ity of tablet 00:00: MOUTH ONCE [place] 00 DAILY IN [facility] EUTHYROX 2021-11 Yes [id number] TAKE 1 [facility] [place] 125 mcg 2-19 TABLET BY ity of tablet 00:00: MOUTH ONCE [place] 00 DAILY IN [facility] EUTHYROX 2021-11 Yes [id number] TAKE 1 [facility] [place] 125 mcg 2-19 TABLET BY ity of tablet 00:00: MOUTH ONCE [place] 00 DAILY IN [facility] EUTHYROX 2021-11 Yes [id number] TAKE 1 [facility] [place] 125 mcg 2-19 TABLET BY ity of tablet 00:00: MOUTH ONCE [place] 00 DAILY IN [facility] MORNING EUTHYROX 2021-11 Yes [id number] TAKE 1 [facility] [place] 125 mcg 2-19 TABLET BY ity of tablet 00:00: MOUTH ONCE [place] 00 DAILY IN [facility] MORNING EUTHYROX 2021-11 Yes [id number] TAKE 1 [facility] [place] 125 mcg 2-19 TABLET BY ity of tablet 00:00: MOUTH ONCE [place] 00 DAILY IN [facility] MORNING EUTHYROX 2021-11 Yes [id number] TAKE 1 [facility] [place] 125 mcg 2-19 TABLET BY ity of tablet 00:00: MOUTH ONCE [place] 00 DAILY IN [facility] MORNING EUTHYROX 2021-11 Yes [id number] TAKE 1 [facility] [place] 125 mcg 2-19 TABLET BY ity of tablet 00:00: MOUTH ONCE [place] 00 DAILY IN [facility] MORNING EUTHYROX 2021-11 Yes [id number] TAKE 1 [facility] [place] 125 mcg 2-19 TABLET BY ity of tablet 00:00: MOUTH ONCE [place] 00 DAILY IN [facility] MORNING EUTHYROX 2021-11 Yes [id number] TAKE 1 [facility] [place] 125 mcg 2-19 TABLET BY ity of tablet 00:00: MOUTH ONCE [place] 00 DAILY IN [facility] MORNING EUTHYROX 2021-11 Yes [id number] TAKE 1 [facility] [place] 125 mcg 2-19 TABLET BY ity of tablet 00:00: MOUTH ONCE [place] 00 DAILY IN [facility] MORNING EUTHYROX 2021-11 Yes [id number] TAKE 1 [facility] [place] 125 mcg 2-19 TABLET BY ity of tablet 00:00: MOUTH ONCE [place] 00 DAILY IN [facility] MORNING EUTHYROX 2021-11 Yes [id number] TAKE 1 [facility] [place] 125 mcg 2-19 TABLET BY ity of tablet 00:00: MOUTH ONCE [place] 00 DAILY IN [facility] MORNING EUTHYROX 2021-11 Yes [id number] TAKE 1 [facility] [place] 125 mcg 2-19 TABLET BY ity of tablet 00:00: MOUTH ONCE [place] 00 DAILY IN [facility] EUTHYROX 2021-11 Yes [id number] TAKE 1 [facility] [place] 125 mcg 2-19 TABLET BY ity of tablet 00:00: MOUTH ONCE [place] 00 DAILY IN [facility] MORNING EUTHYROX 2021-11 Yes [id number] TAKE 1 [facility] [place] 125 mcg 2-19 TABLET BY ity of tablet 00:00: MOUTH ONCE [place] 00 DAILY IN [facility] MORNING EUTHYROX 2021-11 Yes [id number] TAKE 1 [facility] [place] 125 mcg 2-19 TABLET BY ity of tablet 00:00: MOUTH ONCE [place] 00 DAILY IN [facility] MORNING EUTHYROX 2021-11 Yes [id number] TAKE 1 [facility] [place] 125 mcg 2-19 TABLET BY ity of tablet 00:00: MOUTH ONCE [place] 00 DAILY IN [facility] MORNING EUTHYROX 2021-11 Yes [id number] TAKE 1 [facility] [place] 125 mcg 2-19 TABLET BY ity of tablet 00:00: MOUTH ONCE [place] 00 DAILY IN [facility] MORNING EUTHYROX 2021-11 Yes [id number] TAKE 1 [facility] [place] 125 mcg 2-19 TABLET BY ity of tablet 00:00: MOUTH ONCE [place] 00 DAILY IN [facility] EUTHYROX 2021-11 Yes [id number] TAKE 1 [facility] [place] 125 mcg 2-19 TABLET BY ity of tablet 00:00: MOUTH ONCE [place] 00 DAILY IN [facility] MORNING EUTHYROX 2021-11 Yes [id number] TAKE 1 [facility] [place] 125 mcg 2-19 TABLET BY ity of tablet 00:00: MOUTH ONCE [place] 00 DAILY IN [facility] EUTHYROX 2021-11 Yes [id number] TAKE 1 [facility] [place] 125 mcg 2-19 TABLET BY ity of tablet 00:00: MOUTH ONCE [place] 00 DAILY IN [facility] EUTHYROX 2021-11 Yes [id number] TAKE 1 [facility] [place] 125 mcg 2-19 TABLET BY ity of tablet 00:00: MOUTH ONCE [place] 00 DAILY IN [facility] EUTHYROX 2021-11 Yes [id number] TAKE 1 [facility] [place] 125 mcg 2-19 TABLET BY ity of tablet 00:00: MOUTH ONCE [place] 00 DAILY IN [facility] EUTHYROX 2021-11 Yes [id number] TAKE 1 [facility] 125 mcg 2-19 TABLET BY ity of tablet 00:00: MOUTH ONCE [place] 00 DAILY IN [facility] EUTHYROX 2021-11 Yes [id number] TAKE 1 [facility] 125 mcg 2-19 TABLET BY ity of tablet 00:00: MOUTH ONCE [place] 00 DAILY IN [facility] MORNING EUTHYROX 2021-11 Yes [id number] TAKE 1 [facility] [place] 125 mcg 2-19 TABLET BY ity of tablet 00:00: MOUTH ONCE [place] 00 DAILY IN [facility] MORNING EUTHYROX 2021-11 Yes [id number] TAKE 1 [facility] [place] 125 mcg 2-19 TABLET BY ity of tablet 00:00: MOUTH ONCE [place] 00 DAILY IN [facility] EUTHYROX 2021-11 Yes [id number] TAKE 1 [facility] 125 mcg 2-19 TABLET BY ity of tablet 00:00: MOUTH ONCE [place] 00 DAILY IN [facility] MORNING EUTHYROX 2021-11 Yes [id number] TAKE 1 [facility] 125 mcg 2-19 TABLET BY ity of tablet 00:00: MOUTH ONCE [place] 00 DAILY IN [facility] MORNING EUTHYROX 2021-11 Yes [id number] TAKE 1 [facility] 125 mcg 2-19 TABLET BY ity of tablet 00:00: MOUTH ONCE [place] 00 DAILY IN [facility] MORNING EUTHYROX 2021-11 Yes [id number] TAKE 1 [facility] 125 mcg 2-19 TABLET BY ity of tablet 00:00: MOUTH ONCE [place] 00 DAILY IN [facility] MORNING EUTHYROX 2021-11 Yes [id number] TAKE 1 [facility] 125 mcg 2-19 TABLET BY ity of tablet 00:00: MOUTH ONCE [place] 00 DAILY IN [facility] MORNING EUTHYROX 2021-11 Yes [id number] TAKE 1 [facility] 125 mcg 2-19 TABLET BY ity of tablet 00:00: MOUTH ONCE [place] 00 DAILY IN [facility] EUTHYROX 2021-11 Yes [id number] TAKE 1 [facility] 125 mcg 2-19 TABLET BY ity of tablet 00:00: MOUTH ONCE [place] 00 DAILY IN [facility] MORNING EUTHYROX 2021-11 Yes [id number] TAKE 1 [facility] 125 mcg 2-19 TABLET BY ity of tablet 00:00: MOUTH ONCE [place] 00 DAILY IN [facility] EUTHYROX 2021-11 Yes [id number] TAKE 1 [facility] 125 mcg 2-19 TABLET BY ity of tablet 00:00: MOUTH ONCE [place] 00 DAILY IN [facility] EUTHYROX 2021-11 Yes [id number] TAKE 1 [facility] 125 mcg 2-19 TABLET BY ity of tablet 00:00: MOUTH ONCE [place] 00 DAILY IN [facility] MORNING EUTHYROX 2021-11 Yes [id number] TAKE 1 [facility] 125 mcg 2-19 TABLET BY ity of tablet 00:00: MOUTH ONCE [place] 00 DAILY IN [facility] MORNING EUTHYROX 2021-11 Yes [id number] TAKE 1 [facility] 125 mcg 2-19 TABLET BY ity of tablet 00:00: MOUTH ONCE [place] 00 DAILY IN [facility] EUTHYROX 2021-11 Yes [id number] TAKE 1 [facility] 125 mcg 2-19 TABLET BY ity of tablet 00:00: MOUTH ONCE [place] 00 DAILY IN [facility] MORNING EUTHYROX 2021-11 Yes [id number] TAKE 1 [facility] 125 mcg 2-19 TABLET BY ity of tablet 00:00: MOUTH ONCE [place] 00 DAILY IN [facility] MORNING EUTHYROX 2021-11 Yes [id number] TAKE 1 [facility] 125 mcg 2-19 TABLET BY ity of tablet 00:00: MOUTH ONCE [place] 00 DAILY IN [facility] EUTHYROX 2021-11 Yes [id number] TAKE 1 [facility] 125 mcg 2-19 TABLET BY ity of tablet 00:00: MOUTH ONCE [place] 00 DAILY IN [facility] EUTHYROX 2021-11 Yes [id number] TAKE 1 [facility] 125 mcg 2-19 TABLET BY ity of tablet 00:00: MOUTH ONCE [place] 00 DAILY IN [facility] EUTHYROX 2021-11 Yes [id number] TAKE 1 [facility] 125 mcg 2-19 TABLET BY ity of tablet 00:00: MOUTH ONCE [place] 00 DAILY IN [facility] EUTHYROX 2021-11 Yes [id number] TAKE 1 [facility] 125 mcg 2-19 TABLET BY ity of tablet 00:00: MOUTH ONCE [place] 00 DAILY IN [facility] EUTHYROX 2021-11 Yes [id number] TAKE 1 [facility] 125 mcg 2-19 TABLET BY ity of tablet 00:00: MOUTH ONCE [place] 00 DAILY IN [facility] EUTHYROX 2021-11 Yes [id number] TAKE 1 [facility] 125 mcg 2-19 TABLET BY ity of tablet 00:00: MOUTH ONCE [place] 00 DAILY IN [facility] EUTHYROX 2021-11 Yes [id number] TAKE 1 [facility] 125 mcg 2-19 TABLET BY ity of tablet 00:00: MOUTH ONCE [place] 00 DAILY IN [facility] EUTHYROX 2021-11 Yes [id number] TAKE 1 [facility] 125 mcg 2-19 TABLET BY ity of tablet 00:00: MOUTH ONCE [place] 00 DAILY IN [facility] MORNING EUTHYROX 2021-11 Yes [id number] TAKE 1 [facility] 125 mcg 2-19 TABLET BY ity of tablet 00:00: MOUTH ONCE [place] 00 DAILY IN [facility] MORNING EUTHYROX 2021-11 Yes [id number] TAKE 1 [facility] 125 mcg 2-19 TABLET BY ity of tablet 00:00: MOUTH ONCE [place] 00 DAILY IN [facility] EUTHYROX 2021-11 Yes [id number] TAKE 1 [facility] 125 mcg 2-19 TABLET BY ity of tablet 00:00: MOUTH ONCE [place] 00 DAILY IN [facility] MORNING EUTHYROX 2021-11 Yes [id number] TAKE 1 [facility] 125 mcg 2-19 TABLET BY ity of tablet 00:00: MOUTH ONCE [place] 00 DAILY IN [facility] MORNING EUTHYROX 2021-11 Yes [id number] TAKE 1 [facility] 125 mcg 2-19 TABLET BY ity of tablet 00:00: MOUTH ONCE [place] 00 DAILY IN [facility] MORNING EUTHYROX 2021-11 Yes [id number] TAKE 1 [facility] 125 mcg 2-19 TABLET BY ity of tablet 00:00: MOUTH ONCE [place] 00 DAILY IN [facility] MORNING EUTHYROX 2021-11 Yes [id number] TAKE 1 [facility] 125 mcg 2-19 TABLET BY ity of tablet 00:00: MOUTH ONCE [place] 00 DAILY IN [facility] MORNING EUTHYROX 2021-11 Yes [id number] TAKE 1 [facility] 125 mcg 2-19 TABLET BY ity of tablet 00:00: MOUTH ONCE [place] 00 DAILY IN [facility] EUTHYROX 2021-11 Yes [id number] TAKE 1 [facility] 125 mcg 2-19 TABLET BY ity of tablet 00:00: MOUTH ONCE [place] 00 DAILY IN [facility] EUTHYROX 2021-11 Yes [id number] TAKE 1 [facility] 125 mcg 2-19 TABLET BY ity of tablet 00:00: MOUTH ONCE [place] 00 DAILY IN [facility] MORNING EUTHYROX 2021-11 Yes [id number] TAKE 1 [facility] 125 mcg 2-19 TABLET BY ity of tablet 00:00: MOUTH ONCE [place] 00 DAILY IN [facility] MORNING EUTHYROX 2021-11 Yes [id number] TAKE 1 [facility] 125 mcg 2-19 TABLET BY ity of tablet 00:00: MOUTH ONCE [place] 00 DAILY IN [facility] MORNING EUTHYROX 2021-11 Yes [id number] TAKE 1 [facility] 125 mcg 2-19 TABLET BY it[facility] tablet 00:00: MOUTH ONCE [place] 00 DAILY IN [facility] MORNING EUTHYROX 2021-11 Yes [id number] TAKE 1 Un [facility] 125 mcg 2-19 TABLET BY [facility] tablet 00:00: MOUTH ONCE [place] 00 DAILY IN [facility] MORNING EUTHYROX 2021-11 Yes [id number] TAKE 1 Un [facility] 125 mcg 2-19 TABLET BY [facility] tablet 00:00: MOUTH ONCE [place] 00 DAILY IN [facility] MORNING EUTHYROX 2021-11 Yes [id number] TAKE 1 [facility] 125 mcg 2-19 TABLET BY [facility] tablet 00:00: MOUTH ONCE [place] 00 DAILY IN [facility] MORNING EUTHYROX 2021-11 Yes [id number] TAKE 1 Un [facility] 125 mcg 2-19 TABLET BY [facility] tablet 00:00: MOUTH ONCE [place] 00 DAILY IN [facility] MORNING EUTHYROX 2021-11 Yes [id number] TAKE 1 Un [facility] 125 mcg 2-19 TABLET BY [facility] of tablet 00:00: MOUTH ONCE [place] 00 DAILY IN [facility] EUTHYROX 2021-11 Yes [id number] TAKE 1 Un [facility] 125 mcg 2-19 TABLET BY [facility] of tablet 00:00: MOUTH ONCE [place] 00 DAILY IN [facility] MORNING EUTHYROX 2021-11 Yes [id number] TAKE 1 Un [facility] 125 mcg 2-19 TABLET BY [facility] of tablet 00:00: MOUTH ONCE [place] 00 DAILY IN [facility] MORNING EUTHYROX 2021-11 Yes [id number] TAKE 1 [facility] 125 mcg 2-19 TABLET BY ity of tablet 00:00: MOUTH ONCE [place] 00 DAILY IN [facility] MORNING EUTHYROX 2021-11 Yes [id number] TAKE 1 Un [facility] 125 mcg 2-19 TABLET BY ity of tablet 00:00: MOUTH ONCE [place] 00 DAILY IN [facility] MORNING EUTHYROX 2021-11 Yes [id number] TAKE 1 Un [place] 125 mcg 2-19 TABLET BY ity of tablet 00:00: MOUTH ONCE [place] 00 DAILY IN [facility] MORNING EUTHYROX 2021-11 Yes [id number] TAKE 1 Un [facility] 125 mcg 2-19 TABLET BY ity of tablet 00:00: MOUTH ONCE [place] 00 DAILY IN [facility] MORNING EUTHYROX 2021-11 Yes [id number] TAKE 1 Un [facility] 125 mcg 2-19 TABLET BY ity of tablet 00:00: MOUTH ONCE [place] 00 DAILY IN [facility] MORNING EUTHYROX 2021-11 Yes [id number] TAKE 1 Un [facility]frey 125 mcg 2-19 TABLET BY ity of tablet 00:00: MOUTH ONCE [place] 00 DAILY IN [facility] MORNING EUTHYROX 2021-113- No [id number] TAKE 1 U nivers 125 mcg 12-25- TABLET BY ity of tablet 00:00: 00:00 [place]CE [place] 00 [place] DA[place] [facility] MORNING EUTHYROX 2021-11- No [id number] TAKE 1 U nivers 125 mcg 12-25- TABLET BY ity of tablet 00:00: 00:[place]CE [place] 00 [place] DA[place] [facility] MORNING GABAPENTIN 2021-11 Yes [id number] TAKE 1 & [facility] 600 mg 1-26 1/2 (ONE & ity of tablet 00:00: ONE-HALF) [place] 00 TABLETS BY Medical MOUTH Branch THREE TIMES DAILY GABAPENTIN 2021-11 Yes [id number] TAKE 1 & [facility] 600 mg 1-26 1/2 (ONE & ity of tablet 00:00: ONE-HALF) [place] 00 TABLETS BY Medical MOUTH Branch THREE TIMES DAILY GABAPENTIN 2021-11 Yes [id number] TAKE 1 & [facility] 600 mg 1-26 1/2 (ONE & ity of tablet 00:00: ONE-HALF) [place] 00 TABLETS BY Medical MOUTH Branch THREE TIMES DAILY GABAPENTIN 2021-11 Yes [id number] TAKE 1 & [facility] 600 mg 1-26 1/2 (ONE & ity of tablet 00:00: ONE-HALF) [place] 00 TABLETS BY Medical MOUTH Branch THREE TIMES DAILY GABAPENTIN 2021-11 Yes [id number] TAKE 1 & [facility] 600 mg 1-26 1/2 (ONE & ity of tablet 00:00: ONE-HALF) [place] 00 TABLETS BY Medical MOUTH Branch THREE TIMES DAILY GABAPENTIN 2021-11 Yes [id number] TAKE 1 & [facility] 600 mg 1-26 1/2 (ONE & ity of tablet 00:00: ONE-HALF) [place] 00 TABLETS BY Medical MOUTH Branch THREE TIMES DAILY GABAPENTIN 2021-11 Yes [id number] TAKE 1 & [facility] 600 mg 1-26 1/2 (ONE & ity of tablet 00:00: ONE-HALF) [place] 00 TABLETS BY Medical MOUTH Branch THREE TIMES DAILY GABAPENTIN 2021-11 Yes [id number] TAKE 1 & [facility] 600 mg 1-26 1/2 (ONE & ity of tablet 00:00: ONE-HALF) [place] 00 TABLETS BY Medical MOUTH Branch THREE TIMES DAILY GABAPENTIN 2021-11 Yes [id number] TAKE 1 & [facility] 600 mg 1- 1/2 (ONE & ity of tablet 00:00: ONE-HALF) [place] 00 TABLETS BY Medical MOUTH Branch THREE TIMES DAILY GABAPENTIN 2022- Yes [id number] TAKE 1 & [facility] 600 mg 1-26 1/2 (ONE & ity of tablet 00:00: ONE-HALF) [place] 00 TABLETS BY Medical MOUTH Branch THREE TIMES DAILY GABAPENTIN 2022- Yes [id number] TAKE 1 & [facility] 600 mg 1- 1/2 (ONE & ity of tablet 00:00: ONE-HALF) [place] 00 TABLETS BY Medical MOUTH Branch THREE TIMES DAILY GABAPENTIN 2022- Yes [id number] TAKE 1 & [facility] 600 mg - 1/2 (ONE & ity of tablet 00:00: ONE-HALF) [place] 00 TABLETS BY Medical MOUTH Branch THREE TIMES DAILY GABAPENTIN 2022- Yes [id number] TAKE 1 & [facility] 600 mg - 1/2 (ONE & ity of tablet 00:00: ONE-HALF) [place] 00 TABLETS BY Medical MOUTH Branch THREE TIMES DAILY GABAPENTIN 2022-1 Yes [id number] TAKE 1 & [facility] 600 mg - 1/2 (ONE & ity of tablet 00:00: ONE-HALF) [place] 00 TABLETS BY Medical MOUTH Branch THREE TIMES DAILY GABAPENTIN 2022-1 Yes [id number] TAKE 1 & [facility] 600 mg - 1/2 (ONE & ity of tablet 00:00: ONE-HALF) [place] 00 TABLETS BY Medical MOUTH Branch THREE TIMES DAILY GABAPENTIN 2022-1 Yes [id number] TAKE 1 & [facility] 600 mg - 1/2 (ONE & ity of tablet 00:00: ONE-HALF) [place] 00 TABLETS BY Medical MOUTH Branch THREE TIMES DAILY GABAPENTIN 2022-1 Yes [id number] TAKE 1 & [facility] 600 mg 1-26 1/2 (ONE & ity of tablet 00:00: ONE-HALF) [place] 00 TABLETS BY Medical MOUTH Branch THREE TIMES DAILY GABAPENTIN 2022-1 Yes [id number] TAKE 1 & [facility] 600 mg 1-26 1/2 (ONE & ity of tablet 00:00: ONE-HALF) [place] 00 TABLETS BY Medical MOUTH Branch THREE TIMES DAILY GABAPENTIN 2022-1 Yes [id number] TAKE 1 & [facility] 600 mg 1-26 1/2 (ONE & ity of tablet 00:00: ONE-HALF) [place] 00 TABLETS BY Medical MOUTH Branch THREE TIMES DAILY GABAPENTIN 2022-1 Yes [id number] TAKE 1 & [facility] 600 mg 1-26 1/2 (ONE & ity of tablet 00:00: ONE-HALF) [place] 00 TABLETS BY Medical MOUTH Branch THREE TIMES DAILY GABAPENTIN 2022-1 Yes [id number] TAKE 1 & [facility] 600 mg 1-26 1/2 (ONE & ity of tablet 00:00: ONE-HALF) [place] 00 TABLETS BY Medical MOUTH Branch THREE TIMES DAILY GABAPENTIN 2022-1 Yes [id number] TAKE 1 & [facility] 600 mg 1-26 1/2 (ONE & ity of tablet 00:00: ONE-HALF) [place] 00 TABLETS BY Medical MOUTH Branch THREE TIMES DAILY GABAPENTIN 2022-1 Yes [id number] TAKE 1 & [facility] 600 mg 1-26 1/2 (ONE & ity of tablet 00:00: ONE-HALF) [place] 00 TABLETS BY Medical MOUTH Branch THREE TIMES DAILY GABAPENTIN 2022-1 Yes [id number] TAKE 1 & [facility] 600 mg - 1/2 (ONE & ity of tablet 00:00: ONE-HALF) [place] 00 TABLETS BY Medical MOUTH Branch THREE TIMES DAILY GABAPENTIN 2022-1 Yes [id number] TAKE 1 & [facility] 600 mg -26 1/2 (ONE & ity of tablet 00:00: ONE-HALF) [place] 00 TABLETS BY Medical MOUTH Branch THREE TIMES DAILY GABAPENTIN 2022-1 Yes [id number] TAKE 1 & [facility] 600 mg 1-26 1/2 (ONE & ity of tablet 00:00: ONE-HALF) [place] 00 TABLETS BY Medical MOUTH Branch THREE TIMES DAILY GABAPENTIN 2022-1 Yes [id number] TAKE 1 & [facility] 600 mg 1-26 1/2 (ONE & ity of tablet 00:00: ONE-HALF) [place] 00 TABLETS BY Medical MOUTH Branch THREE TIMES DAILY GABAPENTIN 2022-1 Yes [id number] TAKE 1 & [facility] 600 mg 1-26 1/2 (ONE & ity of tablet 00:00: ONE-HALF) [place] 00 TABLETS BY Medical MOUTH Branch THREE TIMES DAILY GABAPENTIN 2022-1 Yes [id number] TAKE 1 & [facility] 600 mg 1-26 1/2 (ONE & ity of tablet 00:00: ONE-HALF) [place] 00 TABLETS BY Medical MOUTH Branch THREE TIMES DAILY GABAPENTIN 2022-1 Yes [id number] TAKE 1 & [facility] 600 mg 1-26 1/2 (ONE & ity of tablet 00:00: ONE-HALF) [place] 00 TABLETS BY Medical MOUTH Branch THREE TIMES DAILY GABAPENTIN 2021-11 Yes [id number] TAKE 1 & [facility] 600 mg -01 12/2 (ONE & ity of tablet 00:00: ONE-HALF) [place] 00 TABLETS BY Medical MOUTH Branch THREE TIMES DAILY GABAPENTIN 2021-11 Yes [id number] TAKE 1 & [facility] 600 mg -2 (ONE & ity of tablet 00:00: ONE-HALF) [place] 00 TABLETS BY Medical MOUTH Branch THREE TIMES DAILY GABAPENTIN 2021-11 Yes [id number] TAKE 1 & [facility] 600 mg -2 (ONE & ity of tablet 00:00: ONE-HALF) [place] 00 TABLETS BY Medical MOUTH Branch THREE TIMES DAILY GABAPENTIN 2021-11 Yes [id number] TAKE 1 & [facility] 600 mg -2 (ONE & ity of tablet 00:00: ONE-HALF) [place] 00 TABLETS BY Medical MOUTH Branch THREE TIMES DAILY GABAPENTIN 2021-11 Yes [id number] TAKE 1 & [facility] 600 mg -2 (ONE & ity of tablet 00:00: ONE-HALF) [place] 00 TABLETS BY Medical MOUTH Branch THREE TIMES DAILY GABAPENTIN 2021-11 Yes [id number] TAKE 1 & [facility] 600 mg -2 (ONE & ity of tablet 00:00: ONE-HALF) [place] 00 TABLETS BY Medical MOUTH Branch THREE TIMES DAILY GABAPENTIN 2021-11 Yes [id number] TAKE 1 & [facility] 600 mg -2 (ONE & ity of tablet 00:00: ONE-HALF) [place] 00 TABLETS BY Medical MOUTH Branch THREE TIMES DAILY GABAPENTIN 2021-11 Yes [id number] TAKE 1 & [facility] 600 mg -2 (ONE & ity of tablet 00:00: ONE-HALF) [place] 00 TABLETS BY Medical MOUTH Branch THREE TIMES DAILY GABAPENTIN 2021-11- No [id number] TAKE 1 & [facility] 600 mg -01 12-2 (ONE & ity of tablet 00:00: 00:00 ONE-HALF) [place] 00 :00 TABLETS BY Medical MOUTH Branch THREE TIMES DAILY amoxicillin 2021-11 Yes [id number] 1{tbl} Take 1 [facility] -clavulanat 1-22 tablet by ity of e 00:00: mouth in [place] (AUGMENTIN) 00 the Medical 875-125 mg morning Branch per tablet and 1 tablet in the evening. albuterol 2021-11 Yes [id number] 2{puff} Inhale 2 [facility] 90 1-22 Puffs ity of mcg/actuati 00:00: every 6 [place] as on inhaler 00 (six) Medical hours as Branch needed for Wheezing or Shortness of Breath. ipratropium 2021-11 Yes [id number] .5mg Inhale 2.5 [facility] 0.02 % 1-22 mL every 6 ity of nebulizer 00:00: (six) [place] solution 00 hours as Medical needed for Branch Wheezing or Shortness of Breath. albuterol 2021-11 Yes [id number] 2.5mg Inhale 3 [facility] 2.5 mg /3 1-22 mL every 6 ity of mL (0.083 00:00: (six) [place] %) 00 hours as Medical nebulizer needed for Bran ch solution Wheezing or Shortness of Breath. budesonide- 2021-11 Yes [id number] 2{puff} Inhale 2 [facility] formoteroL 1-22 Puffs in ity o f (SYMBICORT) 00:00: the [place] 80-4.5 00 morning Medical mcg/actuati and 2 Branch on inhaler Puffs in the evening. Miscellaneo 2021-11 Yes [id number] J40: [facility] 1-22 Brochitis ity of Supply Kit 00:00: - Dispense [place] 00 # 1 Medical Thad Branch Respironic s (okay for alternativ e brand) for nebulizer treatment amoxicillin 2021-11 Yes [id number] 1{tbl} Take 1 [facility] -clavulanat 1-22 tablet by ity of e 00:00: mouth in [place] (AUGMENTIN) 00 the Medical 875-125 mg morning Branch per tablet and 1 tablet in the evening. albuterol 2021-11 Yes [id number] 2{puff} Inhale 2 [facility] 90 1-22 Puffs ity of mcg/actuati 00:00: every 6 [place] as on inhaler 00 (six) Medical hours as Branch needed for Wheezing or Shortness of Breath. ipratropium 2021-11 Yes [id number] .5mg Inhale 2.5 [facility] 0.02 % 1-22 mL every 6 ity of nebulizer 00:00: (six) [place] solution 00 hours as Medical needed for Branch Wheezing or Shortness of Breath. albuterol 2021-11 Yes [id number] 2.5mg Inhale 3 [facility] 2.5 mg /3 1-22 mL every 6 ity of mL (0.083 00:00: (six) [place] %) 00 hours as Medical nebulizer needed for Bran ch solution Wheezing or Shortness of Breath. budesonide- 2021-11 Yes [id number] 2{puff} Inhale 2 [facility] formoteroL 1-22 Puffs in ity o f (SYMBICORT) 00:00: the [place] 80-4.5 00 morning Medical mcg/actuati and 2 Branch on inhaler Puffs in the evening. Miscellaneo 2021-11 Yes [id number] J40: [facility] 1-22 Brochitis ity of Supply Kit 00:00: - Dispense [place] 00 # 1 Medical Thad Branch Respironic s (okay for alternativ e brand) for nebulizer treatment amoxicillin 2021-11 Yes [id number] 1{tbl} Take 1 [facility] -clavulanat 1-22 tablet by ity of e 00:00: mouth in [place] (AUGMENTIN) 00 the Medical 875-125 mg morning Branch per tablet and 1 tablet in the evening. albuterol 2021-11 Yes [id number] 2{puff} Inhale 2 [facility] 90 1-22 Puffs ity of mcg/actuati 00:00: every 6 [place] as on inhaler 00 (six) Medical hours as Branch needed for Wheezing or Shortness of Breath. ipratropium 2021-11 Yes [id number] .5mg Inhale 2.5 [facility] 0.02 % 1-22 mL every 6 ity of nebulizer 00:00: (six) [place] solution 00 hours as Medical needed for Branch Wheezing or Shortness of Breath. albuterol 2021-11 Yes [id number] 2.5mg Inhale 3 [facility] 2.5 mg /3 1-22 mL every 6 ity of mL (0.083 00:00: (six) [place] %) 00 hours as Medical nebulizer needed for Bran ch solution Wheezing or Shortness of Breath. budesonide- 2021-11 Yes [id number] 2{puff} Inhale 2 [facility] formoteroL 1-22 Puffs in ity o f (SYMBICORT) 00:00: the [place] 80-4.5 00 morning Medical mcg/actuati and 2 Branch on inhaler Puffs in the evening. Miscellaneo 2021-11 Yes [id number] J40: [facility] 1-22 Brochitis ity of Supply Kit 00:00: - Dispense [place] 00 # 1 Medical Thad Branch Respironic s (okay for alternativ e brand) for nebulizer treatment amoxicillin 2021-11 Yes [id number] 1{tbl} Take 1 [facility] -clavulanat 1-22 tablet by ity of e 00:00: mouth in [place] (AUGMENTIN) 00 the Medical 875-125 mg morning Branch per tablet and 1 tablet in the evening. albuterol 2021-11 Yes [id number] 2{puff} Inhale 2 [facility] 90 1-22 Puffs ity of mcg/actuati 00:00: every 6 [place] as on inhaler 00 (six) Medical hours as Branch needed for Wheezing or Shortness of Breath. ipratropium 2021-11 Yes [id number] .5mg Inhale 2.5 [facility] 0.02 % 1-22 mL every 6 ity of nebulizer 00:00: (six) [place] solution 00 hours as Medical needed for Branch Wheezing or Shortness of Breath. albuterol 2021-11 Yes [id number] 2.5mg Inhale 3 [facility] 2.5 mg /3 1-22 mL every 6 ity of mL (0.083 00:00: (six) [place] %) 00 hours as Medical nebulizer needed for Bran ch solution Wheezing or Shortness of Breath. budesonide- 2021-11 Yes [id number] 2{puff} Inhale 2 [facility] formoteroL 1-22 Puffs in ity o f (SYMBICORT) 00:00: the [place] 80-4.5 00 morning Medical mcg/actuati and 2 Branch on inhaler Puffs in the evening. Miscellaneo 2021-11 Yes [id number] J40: [facility] 1-22 Brochitis ity of Supply Kit 00:00: - Dispense [place] 00 # 1 Medical Thad Branch Respironic s (okay for alternativ e brand) for nebulizer treatment amoxicillin 2021-11 Yes [id number] 1{tbl} Take 1 [facility] -clavulanat 1-22 tablet by ity of e 00:00: mouth in [place] (AUGMENTIN) 00 the Medical 875-125 mg morning Branch per tablet and 1 tablet in the evening. albuterol 2021-11 Yes [id number] 2{puff} Inhale 2 [facility] 90 1-22 Puffs ity of mcg/actuati 00:00: every 6 [place] as on inhaler 00 (six) Medical hours as Branch needed for Wheezing or Shortness of Breath. ipratropium 2021-11 Yes [id number] .5mg Inhale 2.5 [facility] 0.02 % 1-22 mL every 6 ity of nebulizer 00:00: (six) [place] solution 00 hours as Medical needed for Branch Wheezing or Shortness of Breath. albuterol 2021-11 Yes [id number] 2.5mg Inhale 3 [facility] 2.5 mg /3 1-22 mL every 6 ity of mL (0.083 00:00: (six) [place] %) 00 hours as Medical nebulizer needed for Bran ch solution Wheezing or Shortness of Breath. budesonide- 2021-11 Yes [id number] 2{puff} Inhale 2 [facility] formoteroL 1-22 Puffs in ity o f (SYMBICORT) 00:00: the [place] 80-4.5 00 morning Medical mcg/actuati and 2 Branch on inhaler Puffs in the evening. Miscellaneo 2021-11 Yes [id number] J40: [facility] 1-22 Brochitis ity of Supply Kit 00:00: - Dispense [place] 00 # 1 Medical Thad Branch Respironic s (okay for alternativ e brand) for nebulizer treatment amoxicillin 2021-11 Yes [id number] 1{tbl} Take 1 [facility] -clavulanat 1-22 tablet by ity of e 00:00: mouth in [place] (AUGMENTIN) 00 the Medical 875-125 mg morning Branch per tablet and 1 tablet in the evening. albuterol 2021-11 Yes [id number] 2{puff} Inhale 2 [facility] 90 1-22 Puffs ity of mcg/actuati 00:00: every 6 [place] as on inhaler 00 (six) Medical hours as Branch needed for Wheezing or Shortness of Breath. ipratropium 2021-11 Yes [id number] .5mg Inhale 2.5 [facility] 0.02 % 1-22 mL every 6 ity of nebulizer 00:00: (six) [place] solution 00 hours as Medical needed for Branch Wheezing or Shortness of Breath. albuterol 2021-11 Yes [id number] 2.5mg Inhale 3 [facility] 2.5 mg /3 1-22 mL every 6 ity of mL (0.083 00:00: (six) [place] %) 00 hours as Medical nebulizer needed for Bran ch solution Wheezing or Shortness of Breath. budesonide- 2021-11 Yes [id number] 2{puff} Inhale 2 [facility] formoteroL 1-22 Puffs in ity o f (SYMBICORT) 00:00: the [place] 80-4.5 00 morning Medical mcg/actuati and 2 Branch on inhaler Puffs in the evening. Miscellaneo 2021-11 Yes [id number] J40: [facility] 1-22 Brochitis ity of Supply Kit 00:00: - Dispense [place] 00 # 1 Medical Thad Branch Respironic s (okay for alternativ e brand) for nebulizer treatment amoxicillin 2021-11 Yes [id number] 1{tbl} Take 1 [facility] -clavulanat 1-22 tablet by ity of e 00:00: mouth in [place] (AUGMENTIN) 00 the Medical 875-125 mg morning Branch per tablet and 1 tablet in the evening. albuterol 2021-11 Yes [id number] 2{puff} Inhale 2 [facility] 90 1-22 Puffs ity of mcg/actuati 00:00: every 6 [place] as on inhaler 00 (six) Medical hours as Branch needed for Wheezing or Shortness of Breath. ipratropium 2021-11 Yes [id number] .5mg Inhale 2.5 [facility] 0.02 % 1-22 mL every 6 ity of nebulizer 00:00: (six) [place] solution 00 hours as Medical needed for Branch Wheezing or Shortness of Breath. albuterol 2021-11 Yes [id number] 2.5mg Inhale 3 [facility] 2.5 mg /3 1-22 mL every 6 ity of mL (0.083 00:00: (six) [place] %) 00 hours as Medical nebulizer needed for Bran ch solution Wheezing or Shortness of Breath. budesonide- 2021-11 Yes [id number] 2{puff} Inhale 2 [facility] formoteroL 1-22 Puffs in ity o f (SYMBICORT) 00:00: the [place] 80-4.5 00 morning Medical mcg/actuati and 2 Branch on inhaler Puffs in the evening. Miscellaneo 2021-11 Yes [id number] J40: [facility] 1-22 Brochitis ity of Supply Kit 00:00: - Dispense [place] 00 # 1 Medical Thad Branch Respironic s (okay for alternativ e brand) for nebulizer treatment amoxicillin 2021-11 Yes [id number] 1{tbl} Take 1 [facility] -clavulanat 1-22 tablet by ity of e 00:00: mouth in [place] (AUGMENTIN) 00 the Medical 875-125 mg morning Branch per tablet and 1 tablet in the evening. albuterol 2021-11 Yes [id number] 2{puff} Inhale 2 [facility] 90 1-22 Puffs ity of mcg/actuati 00:00: every 6 [place] as on inhaler 00 (six) Medical hours as Branch needed for Wheezing or Shortness of Breath. ipratropium 2021-11 Yes [id number] .5mg Inhale 2.5 [facility] 0.02 % 1-22 mL every 6 ity of nebulizer 00:00: (six) [place] solution 00 hours as Medical needed for Branch Wheezing or Shortness of Breath. albuterol 2021-11 Yes [id number] 2.5mg Inhale 3 [facility] 2.5 mg /3 1-22 mL every 6 ity of mL (0.083 00:00: (six) [place] %) 00 hours as Medical nebulizer needed for Bran ch solution Wheezing or Shortness of Breath. budesonide- 2021-11 Yes [id number] 2{puff} Inhale 2 [facility] formoteroL 1-22 Puffs in ity o f (SYMBICORT) 00:00: the [place] 80-4.5 00 morning Medical mcg/actuati and 2 Branch on inhaler Puffs in the evening. Miscellaneo 2021-11 Yes [id number] J40: [facility] 11-27 Brochitis ity of Supply Kit 00:00: - Dispense [place] 00 # 1 Medical Thad Branch Respironic s (okay for alternativ e brand) for nebulizer treatment amoxicillin 2021-11 Yes [id number] 1{tbl} Take 1 [facility] -clavulanat 1-22 tablet by ity of e 00:00: mouth in [place] (AUGMENTIN) 00 the Medical 875-125 mg morning Branch per tablet and 1 tablet in the evening. albuterol 2021-11 Yes [id number] 2{puff} Inhale 2 [facility] 90 1-22 Puffs ity of mcg/actuati 00:00: every 6 [place] as on inhaler 00 (six) Medical hours as Branch needed for Wheezing or Shortness of Breath. ipratropium 2021-11 Yes [id number] .5mg Inhale 2.5 [facility] 0.02 % 1-22 mL every 6 ity of nebulizer 00:00: (six) [place] solution 00 hours as Medical needed for Branch Wheezing or Shortness of Breath. albuterol 2021-11 Yes [id number] 2.5mg Inhale 3 [facility] 2.5 mg /3 1-22 mL every 6 ity of mL (0.083 00:00: (six) [place] %) 00 hours as Medical nebulizer needed for Bran ch solution Wheezing or Shortness of Breath. budesonide- 2021-11 Yes [id number] 2{puff} Inhale 2 [facility] formoteroL 1-22 Puffs in ity o f (SYMBICORT) 00:00: the [place] 80-4.5 00 morning Medical mcg/actuati and 2 Branch on inhaler Puffs in the evening. Miscellaneo 2021-11 Yes [id number] J40: [facility] 11-27 Brochitis ity of Supply Kit 00:00: - Dispense [place] 00 # 1 Medical Thad Branch Respironic s (okay for alternativ e brand) for nebulizer treatment amoxicillin 2021-11 Yes [id number] 1{tbl} Take 1 [facility] -clavulanat 1-22 tablet by ity of e 00:00: mouth in [place] (AUGMENTIN) 00 the Medical 875-125 mg morning Branch per tablet and 1 tablet in the evening. albuterol 2021-11 Yes [id number] 2{puff} Inhale 2 [facility] 90 1-22 Puffs ity of mcg/actuati 00:00: every 6 [place] as on inhaler 00 (six) Medical hours as Branch needed for Wheezing or Shortness of Breath. ipratropium 2021-11 Yes [id number] .5mg Inhale 2.5 [facility] 0.02 % 1-22 mL every 6 ity of nebulizer 00:00: (six) [place] solution 00 hours as Medical needed for Branch Wheezing or Shortness of Breath. albuterol 2021-11 Yes [id number] 2.5mg Inhale 3 [facility] 2.5 mg /3 1-22 mL every 6 ity of mL (0.083 00:00: (six) [place] %) 00 hours as Medical nebulizer needed for Bran ch solution Wheezing or Shortness of Breath. budesonide- 2021-11 Yes [id number] 2{puff} Inhale 2 [facility] formoteroL 1-22 Puffs in ity o f (SYMBICORT) 00:00: the [place] 80-4.5 00 morning Medical mcg/actuati and 2 Branch on inhaler Puffs in the evening. Miscellaneo 2021-11 Yes [id number] J40: [facility] 1-22 Brochitis ity of Supply Kit 00:00: - Dispense [place] 00 # 1 Medical Thad Branch Respironic s (okay for alternativ e brand) for nebulizer treatment amoxicillin 2021-11 Yes [id number] 1{tbl} Take 1 [facility] -clavulanat 1-22 tablet by ity of e 00:00: mouth in [place] (AUGMENTIN) 00 the Medical 875-125 mg morning Branch per tablet and 1 tablet in the evening. albuterol 2021-11 Yes [id number] 2{puff} Inhale 2 [facility] 90 1-22 Puffs ity of mcg/actuati 00:00: every 6 [place] as on inhaler 00 (six) Medical hours as Branch needed for Wheezing or Shortness of Breath. ipratropium 2021-11 Yes [id number] .5mg Inhale 2.5 [facility] 0.02 % 1-22 mL every 6 ity of nebulizer 00:00: (six) [place] solution 00 hours as Medical needed for Branch Wheezing or Shortness of Breath. albuterol 2021-11 Yes [id number] 2.5mg Inhale 3 [facility] 2.5 mg /3 1-22 mL every 6 ity of mL (0.083 00:00: (six) [place] %) 00 hours as Medical nebulizer needed for Bran ch solution Wheezing or Shortness of Breath. budesonide- 2021-11 Yes [id number] 2{puff} Inhale 2 [facility] formoteroL 1-22 Puffs in ity o f (SYMBICORT) 00:00: the [place] 80-4.5 00 morning Medical mcg/actuati and 2 Branch on inhaler Puffs in the evening. Miscellaneo 2021-11 Yes [id number] J40: [facility] 1-22 Brochitis ity of Supply Kit 00:00: - Dispense [place] 00 # 1 Medical Thad Branch Respironic s (okay for alternativ e brand) for nebulizer treatment amoxicillin 2021-11 Yes [id number] 1{tbl} Take 1 [facility] -clavulanat 1-22 tablet by ity of e 00:00: mouth in [place] (AUGMENTIN) 00 the Medical 875-125 mg morning Branch per tablet and 1 tablet in the evening. albuterol 2021-11 Yes [id number] 2{puff} Inhale 2 [facility] 90 1-22 Puffs ity of mcg/actuati 00:00: every 6 [place] as on inhaler 00 (six) Medical hours as Branch needed for Wheezing or Shortness of Breath. ipratropium 2021-11 Yes [id number] .5mg Inhale 2.5 [facility] 0.02 % 1-22 mL every 6 ity of nebulizer 00:00: (six) [place] solution 00 hours as Medical needed for Branch Wheezing or Shortness of Breath. albuterol 2021-11 Yes [id number] 2.5mg Inhale 3 [facility] 2.5 mg /3 1-22 mL every 6 ity of mL (0.083 00:00: (six) [place] %) 00 hours as Medical nebulizer needed for Bran ch solution Wheezing or Shortness of Breath. budesonide- 2021-11 Yes [id number] 2{puff} Inhale 2 [facility] formoteroL 1-22 Puffs in ity o f (SYMBICORT) 00:00: the [place] 80-4.5 00 morning Medical mcg/actuati and 2 Branch on inhaler Puffs in the evening. Miscellaneo 2021-11 Yes [id number] J40: [facility] - Brochitis ity of Supply Kit 00:00: - Dispense [place] 00 # 1 Medical Thad Branch Respironic s (okay for alternativ e brand) for nebulizer treatment amoxicillin 2021-11 Yes [id number] 1{tbl} Take 1 [facility] -clavulanat 1-22 tablet by ity of e 00:00: mouth in [place] (AUGMENTIN) 00 the Medical 875-125 mg morning Branch per tablet and 1 tablet in the evening. albuterol 2021-11 Yes [id number] 2{puff} Inhale 2 [facility] 90 1-22 Puffs ity of mcg/actuati 00:00: every 6 [place] as on inhaler 00 (six) Medical hours as Branch needed for Wheezing or Shortness of Breath. ipratropium 2021-11 Yes [id number] .5mg Inhale 2.5 [facility] 0.02 % 1-22 mL every 6 ity of nebulizer 00:00: (six) [place] solution 00 hours as Medical needed for Branch Wheezing or Shortness of Breath. albuterol 2021-11 Yes [id number] 2.5mg Inhale 3 [facility] 2.5 mg /3 1-22 mL every 6 ity of mL (0.083 00:00: (six) [place] %) 00 hours as Medical nebulizer needed for Bran ch solution Wheezing or Shortness of Breath. budesonide- 2021-11 Yes [id number] 2{puff} Inhale 2 [facility] formoteroL 1-22 Puffs in ity o f (SYMBICORT) 00:00: the [place] 80-4.5 00 morning Medical mcg/actuati and 2 Branch on inhaler Puffs in the evening. Miscellaneo 2021-11 Yes [id number] J40: [facility] -22 Brochitis ity of Supply Kit 00:00: - Dispense [place] 00 # 1 Medical Thad Branch Respironic s (okay for alternativ e brand) for nebulizer treatment amoxicillin 2021-11 Yes [id number] 1{tbl} Take 1 [facility] -clavulanat 1-22 tablet by ity of e 00:00: mouth in [place] (AUGMENTIN) 00 the Medical 875-125 mg morning Branch per tablet and 1 tablet in the evening. albuterol 2021-11 Yes [id number] 2{puff} Inhale 2 [facility] 90 1-22 Puffs ity of mcg/actuati 00:00: every 6 [place] as on inhaler 00 (six) Medical hours as Branch needed for Wheezing or Shortness of Breath. ipratropium 2021-11 Yes [id number] .5mg Inhale 2.5 [facility] 0.02 % 1-22 mL every 6 ity of nebulizer 00:00: (six) [place] solution 00 hours as Medical needed for Branch Wheezing or Shortness of Breath. albuterol 2021-11 Yes [id number] 2.5mg Inhale 3 [facility] 2.5 mg /3 1-22 mL every 6 ity of mL (0.083 00:00: (six) [place] %) 00 hours as Medical nebulizer needed for Bran ch solution Wheezing or Shortness of Breath. budesonide- 2021-11 Yes [id number] 2{puff} Inhale 2 [facility] formoteroL 1-22 Puffs in ity o f (SYMBICORT) 00:00: the [place] 80-4.5 00 morning Medical mcg/actuati and 2 Branch on inhaler Puffs in the evening. Miscellaneo 2021-11 Yes [id number] J40: [facility] 1-22 Brochitis ity of Supply Kit 00:00: [place] 00 # 1 Medical Thad Branch Respironic s (okay for alternativ e brand) for nebulizer treatment amoxicillin 2021-11 Yes [id number] 1{tbl} Take 1 [facility] -clavulanat 1-22 tablet by ity of e 00:00: mouth in [place] (AUGMENTIN) 00 the Medical 875-125 mg morning Branch per tablet and 1 tablet in the evening. albuterol 2021-11 Yes [id number] 2{puff} Inhale 2 [facility] 90 1-22 Puffs ity of mcg/actuati 00:00: every 6 [place] as on inhaler 00 (six) Medical hours as Branch needed for Wheezing or Shortness of Breath. ipratropium 2021-11 Yes [id number] .5mg Inhale 2.5 [facility] 0.02 % 1-22 mL every 6 ity of nebulizer 00:00: (six) [place] solution 00 hours as Medical needed for Branch Wheezing or Shortness of Breath. albuterol 2021-11 Yes [id number] 2.5mg Inhale 3 [facility] 2.5 mg /3 1-22 mL every 6 ity of mL (0.083 00:00: (six) [place] %) 00 hours as Medical nebulizer needed for Bran ch solution Wheezing or Shortness of Breath. budesonide- 2021-11 Yes [id number] 2{puff} Inhale 2 [facility] formoteroL 1-22 Puffs in ity o f (SYMBICORT) 00:00: the [place] 80-4.5 00 morning Medical mcg/actuati and 2 Branch on inhaler Puffs in the evening. Miscellaneo 2021-11 Yes [id number] J40: [facility] 1-22 Brochitis ity of Supply Kit 00:00: - [place] 00 # 1 Medical Thad Branch Respironic s (okay for alternativ e brand) for nebulizer treatment amoxicillin 2021-11 Yes [id number] 1{tbl} Take 1 [facility] -clavulanat 1-22 tablet by ity of e 00:00: mouth in [place] (AUGMENTIN) 00 the Medical 875-125 mg morning Branch per tablet and 1 tablet in the evening. albuterol 2021-11 Yes [id number] 2{puff} Inhale 2 [facility] 90 1-22 Puffs ity of mcg/actuati 00:00: every 6 [place] as on inhaler 00 (six) Medical hours as Branch needed for Wheezing or Shortness of Breath. ipratropium 2021-11 Yes [id number] .5mg Inhale 2.5 [facility] 0.02 % 1-22 mL every 6 ity of nebulizer 00:00: (six) [place] solution 00 hours as Medical needed for Branch Wheezing or Shortness of Breath. albuterol 2021-11 Yes [id number] 2.5mg Inhale 3 [facility] 2.5 mg /3 1-22 mL every 6 ity of mL (0.083 00:00: (six) [place] %) 00 hours as Medical nebulizer needed for Bran ch solution Wheezing or Shortness of Breath. budesonide- 2021-11 Yes [id number] 2{puff} Inhale 2 [facility] formoteroL 1-22 Puffs in ity o f (SYMBICORT) 00:00: the [place] 80-4.5 00 morning Medical mcg/actuati and 2 Branch on inhaler Puffs in the evening. Miscellaneo 2021-11 Yes [id number] J40: [facility] 1-22 Brochitis ity of Supply Kit 00:00: - [place] 00 # 1 Medical Thad Branch Respironic s (okay for alternativ e brand) for nebulizer treatment amoxicillin 2021-11 Yes [id number] 1{tbl} Take 1 [facility] -clavulanat 1-22 tablet by ity of e 00:00: mouth in [place] (AUGMENTIN) 00 the Medical 875-125 mg morning Branch per tablet and 1 tablet in the evening. albuterol 2021-11 Yes [id number] 2{puff} Inhale 2 [facility] 90 1-22 Puffs ity of mcg/actuati 00:00: every 6 [place] as on inhaler 00 (six) Medical hours as Branch needed for Wheezing or Shortness of Breath. ipratropium 2021-11 Yes [id number] .5mg Inhale 2.5 [facility] 0.02 % 1-22 mL every 6 ity of nebulizer 00:00: (six) [place] solution 00 hours as Medical needed for Branch Wheezing or Shortness of Breath. albuterol 2021-11 Yes [id number] 2.5mg Inhale 3 [facility] 2.5 mg /3 1-22 mL every 6 ity of mL (0.083 00:00: (six) [place] %) 00 hours as Medical nebulizer needed for Bran ch solution Wheezing or Shortness of Breath. budesonide- 2021-11 Yes [id number] 2{puff} Inhale 2 [facility] formoteroL 1-22 Puffs in ity o f (SYMBICORT) 00:00: the [place] 80-4.5 00 morning Medical mcg/actuati and 2 Branch on inhaler Puffs in the evening. Miscellaneo 2021-11 Yes [id number] J40: [facility] 1-22 Brochitis ity of Supply Kit 00:00: - [place] 00 # 1 Medical Thad Branch Respironic s (okay for alternativ e brand) for nebulizer treatment amoxicillin 2021-11 Yes [id number] 1{tbl} Take 1 [facility] -clavulanat 1-22 tablet by ity of e 00:00: mouth in [place] (AUGMENTIN) 00 the Medical 875-125 mg morning Branch per tablet and 1 tablet in the evening. albuterol 2021-11 Yes [id number] 2{puff} Inhale 2 [facility] 90 1-22 Puffs ity of mcg/actuati 00:00: every 6 [place] as on inhaler 00 (six) Medical hours as Branch needed for Wheezing or Shortness of Breath. ipratropium 2021-11 Yes [id number] .5mg Inhale 2.5 [facility] 0.02 % 1-22 mL every 6 ity of nebulizer 00:00: (six) [place] solution 00 hours as Medical needed for Branch Wheezing or Shortness of Breath. albuterol 2021-11 Yes [id number] 2.5mg Inhale 3 [facility] 2.5 mg /3 1-22 mL every 6 ity of mL (0.083 00:00: (six) [place] %) 00 hours as Medical nebulizer needed for Bran ch solution Wheezing or Shortness of Breath. budesonide- 2021-11 Yes [id number] 2{puff} Inhale 2 [facility] formoteroL 1-22 Puffs in ity o f (SYMBICORT) 00:00: the [place] 80-4.5 00 morning Medical mcg/actuati and 2 Branch on inhaler Puffs in the evening. Miscellaneo 2021-11 Yes [id number] J40: [facility] 1-22 Brochitis ity of Supply Kit 00:00: - Dispense [place] 00 # 1 Medical Thad Branch Respironic s (okay for alternativ e brand) for nebulizer treatment amoxicillin 2021-11 Yes [id number] 1{tbl} Take 1 [facility] -clavulanat 1-22 tablet by ity of e 00:00: mouth in [place] (AUGMENTIN) 00 the Medical 875-125 mg morning Branch per tablet and 1 tablet in the evening. albuterol 2021-11 Yes [id number] 2{puff} Inhale 2 [facility] 90 1-22 Puffs ity of mcg/actuati 00:00: every 6 [place] as on inhaler 00 (six) Medical hours as Branch needed for Wheezing or Shortness of Breath. ipratropium 2021-11 Yes [id number] .5mg Inhale 2.5 [facility] 0.02 % 1-22 mL every 6 ity of nebulizer 00:00: (six) [place] solution 00 hours as Medical needed for Branch Wheezing or Shortness of Breath. albuterol 2021-11 Yes [id number] 2.5mg Inhale 3 [facility] 2.5 mg /3 1-22 mL every 6 ity of mL (0.083 00:00: (six) [place] %) 00 hours as Medical nebulizer needed for Bran ch solution Wheezing or Shortness of Breath. budesonide- 2021-11 Yes [id number] 2{puff} Inhale 2 [facility] formoteroL 1-22 Puffs in ity o f (SYMBICORT) 00:00: the [place] 80-4.5 00 morning Medical mcg/actuati and 2 Branch on inhaler Puffs in the evening. Miscellaneo 2021-11 Yes [id number] J40: [facility] 1-22 Brochitis ity of Supply Kit 00:00: - Dispense [place] 00 # 1 Medical Thad Branch Respironic s (okay for alternativ e brand) for nebulizer treatment amoxicillin 2021-11 Yes [id number] 1{tbl} Take 1 [facility] -clavulanat 1-22 tablet by ity of e 00:00: mouth in [place] (AUGMENTIN) 00 the Medical 875-125 mg morning Branch per tablet and 1 tablet in the evening. albuterol 2021-11 Yes [id number] 2{puff} Inhale 2 [facility] 90 1-22 Puffs ity of mcg/actuati 00:00: every 6 [place] as on inhaler 00 (six) Medical hours as Branch needed for Wheezing or Shortness of Breath. ipratropium 2021-11 Yes [id number] .5mg Inhale 2.5 [facility] 0.02 % 1-22 mL every 6 ity of nebulizer 00:00: (six) [place] solution 00 hours as Medical needed for Branch Wheezing or Shortness of Breath. albuterol 2021-11 Yes [id number] 2.5mg Inhale 3 [facility] 2.5 mg /3 1-22 mL every 6 ity of mL (0.083 00:00: (six) [place] %) 00 hours as Medical nebulizer needed for Bran ch solution Wheezing or Shortness of Breath. budesonide- 2021-11 Yes [id number] 2{puff} Inhale 2 [facility] formoteroL 1-22 Puffs in ity o f (SYMBICORT) 00:00: the [place] 80-4.5 00 morning Medical mcg/actuati and 2 Branch on inhaler Puffs in the evening. Miscellaneo 2021-11 Yes [id number] J40: [facility] 1-22 Brochitis ity of Supply Kit 00:00: - Dispense [place] 00 # 1 Medical Thad Branch Respironic s (okay for alternativ e brand) for nebulizer treatment amoxicillin 2021-11 Yes [id number] 1{tbl} Take 1 [facility] -clavulanat 1-22 tablet by ity of e 00:00: mouth in [place] (AUGMENTIN) 00 the Medical 875-125 mg morning Branch per tablet and 1 tablet in the evening. albuterol 2021-11 Yes [id number] 2{puff} Inhale 2 [facility] 90 1-22 Puffs ity of mcg/actuati 00:00: every 6 [place] as on inhaler 00 (six) Medical hours as Branch needed for Wheezing or Shortness of Breath. ipratropium 2021-11 Yes [id number] .5mg Inhale 2.5 [facility] 0.02 % 1-22 mL every 6 ity of nebulizer 00:00: (six) [place] solution 00 hours as Medical needed for Branch Wheezing or Shortness of Breath. albuterol 2021-11 Yes [id number] 2.5mg Inhale 3 [facility] 2.5 mg /3 1-22 mL every 6 ity of mL (0.083 00:00: (six) [place] %) 00 hours as Medical nebulizer needed for Bran ch solution Wheezing or Shortness of Breath. budesonide- 2021-11 Yes [id number] 2{puff} Inhale 2 [facility] formoteroL 1-22 Puffs in ity o f (SYMBICORT) 00:00: the [place] 80-4.5 00 morning Medical mcg/actuati and 2 Branch on inhaler Puffs in the evening. Miscellaneo 2021-11 Yes [id number] J40: [facility] 11-27 Brochitis ity of Supply Kit 00:00: - Dispense [place] 00 # 1 Medical Thad Branch Respironic s (okay for alternativ e brand) for nebulizer treatment amoxicillin 2021-11 Yes [id number] 1{tbl} Take 1 [facility] -clavulanat 1-22 tablet by ity of e 00:00: mouth in [place] (AUGMENTIN) 00 the Medical 875-125 mg morning Branch per tablet and 1 tablet in the evening. albuterol 2021-11 Yes [id number] 2{puff} Inhale 2 [facility] 90 1-22 Puffs ity of mcg/actuati 00:00: every 6 [place] as on inhaler 00 (six) Medical hours as Branch needed for Wheezing or Shortness of Breath. ipratropium 2021-11 Yes [id number] .5mg Inhale 2.5 [facility] 0.02 % 1-22 mL every 6 ity of nebulizer 00:00: (six) [place] solution 00 hours as Medical needed for Branch Wheezing or Shortness of Breath. albuterol 2021-11 Yes [id number] 2.5mg Inhale 3 [facility] 2.5 mg /3 1-22 mL every 6 ity of mL (0.083 00:00: (six) [place] %) 00 hours as Medical nebulizer needed for Bran ch solution Wheezing or Shortness of Breath. budesonide- 2021-11 Yes [id number] 2{puff} Inhale 2 [facility] formoteroL 1-22 Puffs in ity o f (SYMBICORT) 00:00: the [place] 80-4.5 00 morning Medical mcg/actuati and 2 Branch on inhaler Puffs in the evening. Miscellaneo 2021-11 Yes [id number] J40: [facility] 22 Brochitis ity of Supply Kit 00:00: - Dispense [place] 00 # 1 Medical Thad Branch Respironic s (okay for alternativ e brand) for nebulizer treatment amoxicillin 2021-11 Yes [id number] 1{tbl} Take 1 [facility] -clavulanat 1-22 tablet by ity of e 00:00: mouth in [place] (AUGMENTIN) 00 the Medical 875-125 mg morning Branch per tablet and 1 tablet in the evening. albuterol 2021-11 Yes [id number] 2{puff} Inhale 2 [facility] 90 1-22 Puffs ity of mcg/actuati 00:00: every 6 [place] as on inhaler 00 (six) Medical hours as Branch needed for Wheezing or Shortness of Breath. ipratropium 2021-11 Yes [id number] .5mg Inhale 2.5 [facility] 0.02 % 1-22 mL every 6 ity of nebulizer 00:00: (six) [place] solution 00 hours as Medical needed for Branch Wheezing or Shortness of Breath. albuterol 2021-11 Yes [id number] 2.5mg Inhale 3 [facility] 2.5 mg /3 1-22 mL every 6 ity of mL (0.083 00:00: (six) [place] %) 00 hours as Medical nebulizer needed for Bran ch solution Wheezing or Shortness of Breath. budesonide- 2021-11 Yes [id number] 2{puff} Inhale 2 [facility] formoteroL 1-22 Puffs in ity o f (SYMBICORT) 00:00: the [place] 80-4.5 00 morning Medical mcg/actuati and 2 Branch on inhaler Puffs in the evening. Miscellaneo 2021-11 Yes [id number] J40: [facility] Medical 1-22 Brochitis ity of Supply Kit 00:00: - Dispense [place] 00 # 1 Medical Thad Branch Respironic s (okay for alternativ e brand) for nebulizer treatment amoxicillin 2021-11 Yes [id number] 1{tbl} Take 1 [facility] -clavulanat 1-22 tablet by ity of e 00:00: mouth in [place] (AUGMENTIN) 00 the Medical 875-125 mg morning Branch per tablet and 1 tablet in the evening. albuterol 2021-11 Yes [id number] 2{puff} Inhale 2 [facility] 90 1-22 Puffs ity of mcg/actuati 00:00: every 6 [place] as on inhaler 00 (six) Medical hours as Branch needed for Wheezing or Shortness of Breath. ipratropium 2021-11 Yes [id number] .5mg Inhale 2.5 [facility] 0.02 % 1-22 mL every 6 ity of nebulizer 00:00: (six) [place] solution 00 hours as Medical needed for Branch Wheezing or Shortness of Breath. albuterol 2021-11 Yes [id number] 2.5mg Inhale 3 [facility] 2.5 mg /3 1-22 mL every 6 ity of mL (0.083 00:00: (six) [place] %) 00 hours as Medical nebulizer needed for Bran ch solution Wheezing or Shortness of Breath. budesonide- 2021-11 Yes [id number] 2{puff} Inhale 2 [facility] formoteroL 1-22 Puffs in ity o f (SYMBICORT) 00:00: the [place] 80-4.5 00 morning Medical mcg/actuati and 2 Branch on inhaler Puffs in the evening. Miscellaneo 2021-11 Yes [id number] J40: [facility] 1-22 Brochitis ity of Supply Kit 00:00: - Dispense [place] 00 # 1 Medical Thad Branch Respironic s (okay for alternativ e brand) for nebulizer treatment amoxicillin 2021-11 Yes [id number] 1{tbl} Take 1 [facility] -clavulanat 1-22 tablet by ity of e 00:00: mouth in [place] (AUGMENTIN) 00 the Medical 875-125 mg morning Branch per tablet and 1 tablet in the evening. albuterol 2021-11 Yes [id number] 2{puff} Inhale 2 [facility] 90 1-22 Puffs ity of mcg/actuati 00:00: every 6 [place] as on inhaler 00 (six) Medical hours as Branch needed for Wheezing or Shortness of Breath. ipratropium 2021-11 Yes [id number] .5mg Inhale 2.5 Univers 0.02 % 1-22 mL every 6 ity of nebulizer 00:00: (six) [place] solution 00 hours as Medical needed for Branch Wheezing or Shortness of Breath. albuterol 2021-11 Yes [id number] 2.5mg Inhale 3 Univers 2.5 mg /3 1-22 mL every 6 ity of mL (0.083 00:00: (six) [place] %) 00 hours as Medical nebulizer needed for Bran ch solution Wheezing or Shortness of Breath. budesonide- 2021-11 Yes [id number] 2{puff} Inhale 2 [facility] formoteroL 1-22 Puffs in ity o f (SYMBICORT) 00:00: the [place] 80-4.5 00 morning Medical mcg/actuati and 2 Branch on inhaler Puffs in the evening. Miscellaneo 2021-11 Yes [id number] J40: [facility] 11-27 Brochitis ity of Supply Kit 00:00: - Dispense [place] 00 # 1 Medical Thad Branch Respironic s (okay for alternativ e brand) for nebulizer treatment amoxicillin 2021-11 Yes [id number] 1{tbl} Take 1 [facility] -clavulanat 1-22 tablet by ity of e 00:00: mouth in [place] (AUGMENTIN) 00 the Medical 875-125 mg morning Branch per tablet and 1 tablet in the evening. albuterol 2021-11 Yes [id number] 2{puff} Inhale 2 [facility] 90 1-22 Puffs ity of mcg/actuati 00:00: every 6 [place] as on inhaler 00 (six) Medical hours as Branch needed for Wheezing or Shortness of Breath. ipratropium 2021-11 Yes [id number] .5mg Inhale 2.5 Univers 0.02 % 1-22 mL every 6 ity of nebulizer 00:00: (six) [place] solution 00 hours as Medical needed for Branch Wheezing or Shortness of Breath. albuterol 2021-11 Yes [id number] 2.5mg Inhale 3 Univers 2.5 mg /3 1-22 mL every 6 ity of mL (0.083 00:00: (six) [place] %) 00 hours as Medical nebulizer needed for Bran ch solution Wheezing or Shortness of Breath. budesonide- 2021-11 Yes [id number] 2{puff} Inhale 2 [facility] formoteroL 1-22 Puffs in ity o f (SYMBICORT) 00:00: the [place] 80-4.5 00 morning Medical mcg/actuati and 2 Branch on inhaler Puffs in the evening. Miscellaneo 2021-11 Yes [id number] J40: [facility] 11-27 Brochitis ity of Supply Kit 00:00: - Dispense [place] 00 # 1 Medical Thad Branch Respironic s (okay for alternativ e brand) for nebulizer treatment amoxicillin 2021-11 Yes [id number] 1{tbl} Take 1 [facility] -clavulanat 1-22 tablet by ity of e 00:00: mouth in [place] (AUGMENTIN) 00 the Medical 875-125 mg morning Branch per tablet and 1 tablet in the evening. albuterol 2021-11 Yes [id number] 2{puff} Inhale 2 [facility] 90 1-22 Puffs ity of mcg/actuati 00:00: every 6 [place] as on inhaler 00 (six) Medical hours as Branch needed for Wheezing or Shortness of Breath. ipratropium 2021-11 Yes [id number] .5mg Inhale 2.5 Univers 0.02 % 1-22 mL every 6 ity of nebulizer 00:00: (six) [place] solution 00 hours as Medical needed for Branch Wheezing or Shortness of Breath. albuterol 2021-11 Yes [id number] 2.5mg Inhale 3 [facility] 2.5 mg /3 1-22 mL every 6 ity of mL (0.083 00:00: (six) [place] %) 00 hours as Medical nebulizer needed for Bran ch solution Wheezing or Shortness of Breath. budesonide- 2021-11 Yes [id number] 2{puff} Inhale 2 [facility] formoteroL 1-22 Puffs in ity o f (SYMBICORT) 00:00: the [place] 80-4.5 00 morning Medical mcg/actuati and 2 Branch on inhaler Puffs in the evening. Miscellaneo 2021-11 Yes [id number] J40: [facility] Medical 1-22 Brochitis ity of Supply Kit 00:00: - Dispense [place] 00 # 1 Medical Thad Branch Respironic s (okay for alternativ e brand) for nebulizer treatment amoxicillin 2021-11 Yes [id number] 1{tbl} Take 1 [facility] -clavulanat 1-22 tablet by ity of e 00:00: mouth in [place] (AUGMENTIN) 00 the Medical 875-125 mg morning Branch per tablet and 1 tablet in the evening. albuterol 2021-11 Yes [id number] 2{puff} Inhale 2 [facility] 90 1-22 Puffs ity of mcg/actuati 00:00: every 6 [place] as on inhaler 00 (six) Medical hours as Branch needed for Wheezing or Shortness of Breath. ipratropium 2021-11 Yes [id number] .5mg Inhale 2.5 Univers 0.02 % 1-22 mL every 6 ity of nebulizer 00:00: (six) [place] solution 00 hours as Medical needed for Branch Wheezing or Shortness of Breath. albuterol 2021-11 Yes [id number] 2.5mg Inhale 3 [facility] 2.5 mg /3 1-22 mL every 6 ity of mL (0.083 00:00: (six) [place] %) 00 hours as Medical nebulizer needed for Bran ch solution Wheezing or Shortness of Breath. budesonide- 2021-11 Yes [id number] 2{puff} Inhale 2 [facility] formoteroL 1-22 Puffs in ity o f (SYMBICORT) 00:00: the [place] 80-4.5 00 morning Medical mcg/actuati and 2 Branch on inhaler Puffs in the evening. Miscellaneo 2021-11 Yes [id number] J40: [facility] 1-22 Brochitis ity of Supply Kit 00:00: - Dispense [place] 00 # 1 Medical Thad Branch Respironic s (okay for alternativ e brand) for nebulizer treatment amoxicillin 2021-11 Yes [id number] 1{tbl} Take 1 [facility] -clavulanat 1-22 tablet by ity of e 00:00: mouth in [place] (AUGMENTIN) 00 the Medical 875-125 mg morning Branch per tablet and 1 tablet in the evening. albuterol 2021-11 Yes [id number] 2{puff} Inhale 2 [facility] 90 1-22 Puffs ity of mcg/actuati 00:00: every 6 [place] as on inhaler 00 (six) Medical hours as Branch needed for Wheezing or Shortness of Breath. ipratropium 2021-11 Yes [id number] .5mg Inhale 2.5 Univers 0.02 % 1-22 mL every 6 ity of nebulizer 00:00: (six) [place] solution 00 hours as Medical needed for Branch Wheezing or Shortness of Breath. albuterol 2021-11 Yes [id number] 2.5mg Inhale 3 [facility] 2.5 mg /3 1-22 mL every 6 ity of mL (0.083 00:00: (six) [place] %) 00 hours as Medical nebulizer needed for Bran ch solution Wheezing or Shortness of Breath. budesonide- 2021-11 Yes [id number] 2{puff} Inhale 2 [facility] formoteroL 1-22 Puffs in ity o f (SYMBICORT) 00:00: the [place] 80-4.5 00 morning Medical mcg/actuati and 2 Branch on inhaler Puffs in the evening. Miscellaneo 2021-11 Yes [id number] J40: [facility] 1-22 Brochitis ity of Supply Kit 00:00: - Dispense [place] 00 # 1 Medical Thad Branch Respironic s (okay for alternativ e brand) for nebulizer treatment amoxicillin 2021-11 Yes [id number] 1{tbl} Take 1 [facility] -clavulanat 1-22 tablet by ity of e 00:00: mouth in [place] (AUGMENTIN) 00 the Medical 875-125 mg morning Branch per tablet and 1 tablet in the evening. albuterol 2021-11 Yes [id number] 2{puff} Inhale 2 [facility] 90 1-22 Puffs ity of mcg/actuati 00:00: every 6 [place] as on inhaler 00 (six) Medical hours as Branch needed for Wheezing or Shortness of Breath. ipratropium 2021-11 Yes [id number] .5mg Inhale 2.5 Univers 0.02 % 1-22 mL every 6 ity of nebulizer 00:00: (six) [place] solution 00 hours as Medical needed for Branch Wheezing or Shortness of Breath. albuterol 2021-11 Yes [id number] 2.5mg Inhale 3 Univers 2.5 mg /3 1-22 mL every 6 ity of mL (0.083 00:00: (six) [place] %) 00 hours as Medical nebulizer needed for Bran ch solution Wheezing or Shortness of Breath. budesonide- 2021-11 Yes [id number] 2{puff} Inhale 2 [facility] formoteroL 1-22 Puffs in ity o f (SYMBICORT) 00:00: the [place] 80-4.5 00 morning Medical mcg/actuati and 2 Branch on inhaler Puffs in the evening. Miscellaneo 2021-11 Yes [id number] J40: [facility] 1-22 Brochitis ity of Supply Kit 00:00: - Dispense [place] 00 # 1 Medical Thad Branch Respironic s (okay for alternativ e brand) for nebulizer treatment amoxicillin 2021-11 Yes [id number] 1{tbl} Take 1 [facility] -clavulanat 1-22 tablet by ity of e 00:00: mouth in [place] (AUGMENTIN) 00 the Medical 875-125 mg morning Branch per tablet and 1 tablet in the evening. albuterol 2021-11 Yes [id number] 2{puff} Inhale 2 [facility] 90 1-22 Puffs ity of mcg/actuati 00:00: every 6 [place] as on inhaler 00 (six) Medical hours as Branch needed for Wheezing or Shortness of Breath. ipratropium 2021-11 Yes [id number] .5mg Inhale 2.5 [facility] 0.02 % 1-22 mL every 6 ity of nebulizer 00:00: (six) [place] solution 00 hours as Medical needed for Branch Wheezing or Shortness of Breath. albuterol 2021-11 Yes [id number] 2.5mg Inhale 3 [facility] 2.5 mg /3 1-22 mL every 6 ity of mL (0.083 00:00: (six) [place] %) 00 hours as Medical nebulizer needed for Bran ch solution Wheezing or Shortness of Breath. budesonide- 2021-11 Yes [id number] 2{puff} Inhale 2 [facility] formoteroL 1-22 Puffs in ity o f (SYMBICORT) 00:00: the [place] 80-4.5 00 morning Medical mcg/actuati and 2 Branch on inhaler Puffs in the evening. Miscellaneo 2021-11 Yes [id number] J40: [facility] 1-22 Brochitis ity of Supply Kit 00:00: - Dispense [place] 00 # 1 Medical Thad Branch Respironic s (okay for alternativ e brand) for nebulizer treatment amoxicillin 2021-11 Yes [id number] 1{tbl} Take 1 [facility] -clavulanat 1-22 tablet by ity of e 00:00: mouth in [place] (AUGMENTIN) 00 the Medical 875-125 mg morning Branch per tablet and 1 tablet in the evening. albuterol 2021-11 Yes [id number] 2{puff} Inhale 2 [facility] 90 1-22 Puffs ity of mcg/actuati 00:00: every 6 [place] as on inhaler 00 (six) Medical hours as Branch needed for Wheezing or Shortness of Breath. ipratropium 2021-11 Yes [id number] .5mg Inhale 2.5 [facility] 0.02 % 1-22 mL every 6 ity of nebulizer 00:00: (six) [place] solution 00 hours as Medical needed for Branch Wheezing or Shortness of Breath. albuterol 2021-11 Yes [id number] 2.5mg Inhale 3 [facility] 2.5 mg /3 1-22 mL every 6 ity of mL (0.083 00:00: (six) [place] %) 00 hours as Medical nebulizer needed for Bran ch solution Wheezing or Shortness of Breath. budesonide- 2021-11 Yes [id number] 2{puff} Inhale 2 [facility] formoteroL 1-22 Puffs in ity o f (SYMBICORT) 00:00: the [place] 80-4.5 00 morning Medical mcg/actuati and 2 Branch on inhaler Puffs in the evening. Miscellaneo 2021-11 Yes [id number] J40: [facility] 1-22 Brochitis ity of Supply Kit 00:00: - Dispense [place] 00 # 1 Medical Thad Branch Respironic s (okay for alternativ e brand) for nebulizer treatment amoxicillin 2021-11 Yes [id number] 1{tbl} Take 1 [facility] -clavulanat 1-22 tablet by ity of e 00:00: mouth in [place] (AUGMENTIN) 00 the Medical 875-125 mg morning Branch per tablet and 1 tablet in the evening. albuterol 2021-11 Yes [id number] 2{puff} Inhale 2 [facility] 90 1-22 Puffs ity of mcg/actuati 00:00: every 6 [place] as on inhaler 00 (six) Medical hours as Branch needed for Wheezing or Shortness of Breath. ipratropium 2021-11 Yes [id number] .5mg Inhale 2.5 [facility] 0.02 % 1-22 mL every 6 ity of nebulizer 00:00: (six) [place] solution 00 hours as Medical needed for Branch Wheezing or Shortness of Breath. albuterol 2021-11 Yes [id number] 2.5mg Inhale 3 [facility] 2.5 mg /3 1-22 mL every 6 ity of mL (0.083 00:00: (six) [place] %) 00 hours as Medical nebulizer needed for Bran ch solution Wheezing or Shortness of Breath. budesonide- 2021-11 Yes [id number] 2{puff} Inhale 2 [facility] formoteroL 1-22 Puffs in ity o f (SYMBICORT) 00:00: the [place] 80-4.5 00 morning Medical mcg/actuati and 2 Branch on inhaler Puffs in the evening. Miscellaneo 2021-11 Yes [id number] J40: [facility] 1-22 Brochitis ity of Supply Kit 00:00: [place] 00 # 1 Medical Thad Branch Respironic s (okay for alternativ e brand) for nebulizer treatment amoxicillin 2021-11 Yes [id number] 1{tbl} Take 1 [facility] -clavulanat 1-22 tablet by ity of e 00:00: mouth in [place] (AUGMENTIN) 00 the Medical 875-125 mg morning Branch per tablet and 1 tablet in the evening. albuterol 2021-11 Yes [id number] 2{puff} Inhale 2 [facility] 90 1-22 Puffs ity of mcg/actuati 00:00: every 6 [place] as on inhaler 00 (six) Medical hours as Branch needed for Wheezing or Shortness of Breath. ipratropium 2021-11 Yes [id number] .5mg Inhale 2.5 [facility] 0.02 % 1-22 mL every 6 ity of nebulizer 00:00: (six) [place] solution 00 hours as Medical needed for Branch Wheezing or Shortness of Breath. albuterol 2021-11 Yes [id number] 2.5mg Inhale 3 [facility] 2.5 mg /3 1-22 mL every 6 ity of mL (0.083 00:00: (six) [place] %) 00 hours as Medical nebulizer needed for Bran ch solution Wheezing or Shortness of Breath. budesonide- 2021-11 Yes [id number] 2{puff} Inhale 2 [facility] formoteroL 1-22 Puffs in ity o f (SYMBICORT) 00:00: the [place] 80-4.5 00 morning Medical mcg/actuati and 2 Branch on inhaler Puffs in the evening. Miscellaneo 2021-11 Yes [id number] J40: [facility] 11-27 Brochitis ity of Supply Kit 00:00: - [place] 00 # 1 Medical Thad Branch Respironic s (okay for alternativ e brand) for nebulizer treatment amoxicillin 2021-11 Yes [id number] 1{tbl} Take 1 [facility] -clavulanat 1-22 tablet by ity of e 00:00: mouth in [place] (AUGMENTIN) 00 the Medical 875-125 mg morning Branch per tablet and 1 tablet in the evening. albuterol 2021-11 Yes [id number] 2{puff} Inhale 2 [facility] 90 1-22 Puffs ity of mcg/actuati 00:00: every 6 [place] as on inhaler 00 (six) Medical hours as Branch needed for Wheezing or Shortness of Breath. ipratropium 2021-11 Yes [id number] .5mg Inhale 2.5 [facility] 0.02 % 1-22 mL every 6 ity of nebulizer 00:00: (six) [place] solution 00 hours as Medical needed for Branch Wheezing or Shortness of Breath. albuterol 2021-11 Yes [id number] 2.5mg Inhale 3 [facility] 2.5 mg /3 1-22 mL every 6 ity of mL (0.083 00:00: (six) [place] %) 00 hours as Medical nebulizer needed for Bran ch solution Wheezing or Shortness of Breath. budesonide- 2021-11 Yes [id number] 2{puff} Inhale 2 [facility] formoteroL 1-22 Puffs in ity o f (SYMBICORT) 00:00: the [place] 80-4.5 00 morning Medical mcg/actuati and 2 Branch on inhaler Puffs in the evening. Miscellaneo 2021-11 Yes [id number] J40: [facility] 22 Brochitis ity of Supply Kit 00:00: - [place] 00 # 1 Medical Thad Branch Respironic s (okay for alternativ e brand) for nebulizer treatment amoxicillin 2021-11 Yes [id number] 1{tbl} Take 1 [facility] -clavulanat 1-22 tablet by ity of e 00:00: mouth in [place] (AUGMENTIN) 00 the Medical 875-125 mg morning Branch per tablet and 1 tablet in the evening. albuterol 2021-11 Yes [id number] 2{puff} Inhale 2 [facility] 90 1-22 Puffs ity of mcg/actuati 00:00: every 6 [place] as on inhaler 00 (six) Medical hours as Branch needed for Wheezing or Shortness of Breath. ipratropium 2021-11 Yes [id number] .5mg Inhale 2.5 [facility] 0.02 % 1-22 mL every 6 ity of nebulizer 00:00: (six) [place] solution 00 hours as Medical needed for Branch Wheezing or Shortness of Breath. albuterol 2021-11 Yes [id number] 2.5mg Inhale 3 [facility] 2.5 mg /3 1-22 mL every 6 ity of mL (0.083 00:00: (six) [place] %) 00 hours as Medical nebulizer needed for Bran ch solution Wheezing or Shortness of Breath. budesonide- 2021-11 Yes [id number] 2{puff} Inhale 2 [facility] formoteroL 1-22 Puffs in ity o f (SYMBICORT) 00:00: the [place] 80-4.5 00 morning Medical mcg/actuati and 2 Branch on inhaler Puffs in the evening. Miscellaneo 2021-11 Yes [id number] J40: [facility] Medical 1-22 Brochitis ity of Supply Kit 00:00: - [place] 00 # 1 Medical Thad Branch Respironic s (okay for alternativ e brand) for nebulizer treatment amoxicillin 2021-11 Yes [id number] 1{tbl} Take 1 [facility] -clavulanat 1-22 tablet by ity of e 00:00: mouth in [place] (AUGMENTIN) 00 the Medical 875-125 mg morning Branch per tablet and 1 tablet in the evening. albuterol 2021-11 Yes [id number] 2{puff} Inhale 2 [facility] 90 1-22 Puffs ity of mcg/actuati 00:00: every 6 [place] as on inhaler 00 (six) Medical hours as Branch needed for Wheezing or Shortness of Breath. ipratropium 2021-11 Yes [id number] .5mg Inhale 2.5 [facility] 0.02 % 1-22 mL every 6 ity of nebulizer 00:00: (six) [place] solution 00 hours as Medical needed for Branch Wheezing or Shortness of Breath. albuterol 2021-11 Yes [id number] 2.5mg Inhale 3 [facility] 2.5 mg /3 1-22 mL every 6 ity of mL (0.083 00:00: (six) [place] %) 00 hours as Medical nebulizer needed for Bran ch solution Wheezing or Shortness of Breath. budesonide- 2021-11 Yes [id number] 2{puff} Inhale 2 [facility] formoteroL 1-22 Puffs in ity o f (SYMBICORT) 00:00: the [place] 80-4.5 00 morning Medical mcg/actuati and 2 Branch on inhaler Puffs in the evening. Miscellaneo 2021-11 Yes [id number] J40: [facility] 1-22 Brochitis ity of Supply Kit 00:00: - [place]ense [place] 00 # 1 Medical Thad Branch Respironic s (okay for alternativ e brand) for nebulizer treatment amoxicillin 2021-11 Yes [id number] 1{tbl} Take 1 [facility] -clavulanat 1-22 tablet by ity of e 00:00: mouth in [place] (AUGMENTIN) 00 the Medical 875-125 mg morning Branch per tablet and 1 tablet in the evening. albuterol 2021-11 Yes [id number] 2{puff} Inhale 2 [facility] 90 1-22 Puffs ity of mcg/actuati 00:00: every 6 [place] as on inhaler 00 (six) Medical hours as Branch needed for Wheezing or Shortness of Breath. ipratropium 2021-11 Yes [id number] .5mg Inhale 2.5 [facility] 0.02 % 1-22 mL every 6 ity of nebulizer 00:00: (six) [place] solution 00 hours as Medical needed for Branch Wheezing or Shortness of Breath. albuterol 2021-11 Yes [id number] 2.5mg Inhale 3 [facility] 2.5 mg /3 1-22 mL every 6 ity of mL (0.083 00:00: (six) [place] %) 00 hours as Medical nebulizer needed for Bran ch solution Wheezing or Shortness of Breath. budesonide- 2021-11 Yes [id number] 2{puff} Inhale 2 [facility] formoteroL 1-22 Puffs in ity o f (SYMBICORT) 00:00: the [place] 80-4.5 00 morning Medical mcg/actuati and 2 Branch on inhaler Puffs in the evening. Miscellaneo 2021-11 Yes [id number] J40: [facility] 11-27 Brochitis ity of Supply Kit 00:00: - Dispense [place] 00 # 1 Medical Thad Branch Respironic s (okay for alternativ e brand) for nebulizer treatment amoxicillin 2021-11 Yes [id number] 1{tbl} Take 1 [facility] -clavulanat 1-22 tablet by ity of e 00:00: mouth in [place] (AUGMENTIN) 00 the Medical 875-125 mg morning Branch per tablet and 1 tablet in the evening. albuterol 2021-11 Yes [id number] 2{puff} Inhale 2 [facility] 90 1-22 Puffs ity of mcg/actuati 00:00: every 6 [place] as on inhaler 00 (six) Medical hours as Branch needed for Wheezing or Shortness of Breath. ipratropium 2021-11 Yes [id number] .5mg Inhale 2.5 [facility] 0.02 % 1-22 mL every 6 ity of nebulizer 00:00: (six) [place] solution 00 hours as Medical needed for Branch Wheezing or Shortness of Breath. albuterol 2021-11 Yes [id number] 2.5mg Inhale 3 [facility] 2.5 mg /3 1-22 mL every 6 ity of mL (0.083 00:00: (six) [place] %) 00 hours as Medical nebulizer needed for Bran ch solution Wheezing or Shortness of Breath. budesonide- 2021-11 Yes [id number] 2{puff} Inhale 2 [facility] formoteroL 1-22 Puffs in ity o f (SYMBICORT) 00:00: the [place] 80-4.5 00 morning Medical mcg/actuati and 2 Branch on inhaler Puffs in the evening. Miscellaneo 2021-11 Yes [id number] J40: [facility] -22 Brochitis ity of Supply Kit 00:00: - Dispense [place] 00 # 1 Medical Thad Branch Respironic s (okay for alternativ e brand) for nebulizer treatment amoxicillin 2021-11 Yes [id number] 1{tbl} Take 1 [facility] -clavulanat 1-22 tablet by ity of e 00:00: mouth in [place] (AUGMENTIN) 00 the Medical 875-125 mg morning Branch per tablet and 1 tablet in the evening. albuterol 2021-11 Yes [id number] 2{puff} Inhale 2 [facility] 90 1-22 Puffs ity of mcg/actuati 00:00: every 6 [place] as on inhaler 00 (six) Medical hours as Branch needed for Wheezing or Shortness of Breath. ipratropium 2021-11 Yes [id number] .5mg Inhale 2.5 [facility] 0.02 % 1-22 mL every 6 ity of nebulizer 00:00: (six) [place] solution 00 hours as Medical needed for Branch Wheezing or Shortness of Breath. albuterol 2021-11 Yes [id number] 2.5mg Inhale 3 [facility] 2.5 mg /3 1-22 mL every 6 ity of mL (0.083 00:00: (six) [place] %) 00 hours as Medical nebulizer needed for Bran ch solution Wheezing or Shortness of Breath. budesonide- 2021-11 Yes [id number] 2{puff} Inhale 2 [facility] formoteroL 1-22 Puffs in ity o f (SYMBICORT) 00:00: the [place] 80-4.5 00 morning Medical mcg/actuati and 2 Branch on inhaler Puffs in the evening. Miscellaneo 2021-11 Yes [id number] J40: [facility] 1-22 Brochitis ity of Supply Kit 00:00: - Dispense [place] 00 # 1 Medical Thad Branch Respironic s (okay for alternativ e brand) for nebulizer treatment amoxicillin 2021-11 Yes [id number] 1{tbl} Take 1 [facility] -clavulanat 1-22 tablet by ity of e 00:00: mouth in [place] (AUGMENTIN) 00 the Medical 875-125 mg morning Branch per tablet and 1 tablet in the evening. albuterol 2021-11 Yes [id number] 2{puff} Inhale 2 [facility] 90 1-22 Puffs ity of mcg/actuati 00:00: every 6 [place] as on inhaler 00 (six) Medical hours as Branch needed for Wheezing or Shortness of Breath. ipratropium 2021-11 Yes [id number] .5mg Inhale 2.5 [facility] 0.02 % 1-22 mL every 6 ity of nebulizer 00:00: (six) [place] solution 00 hours as Medical needed for Branch Wheezing or Shortness of Breath. albuterol 2021-11 Yes [id number] 2.5mg Inhale 3 [facility] 2.5 mg /3 1-22 mL every 6 ity of mL (0.083 00:00: (six) [place] %) 00 hours as Medical nebulizer needed for Bran ch solution Wheezing or Shortness of Breath. budesonide- 2021-11 Yes [id number] 2{puff} Inhale 2 [facility] formoteroL 1-22 Puffs in ity o f (SYMBICORT) 00:00: the [place] 80-4.5 00 morning Medical mcg/actuati and 2 Branch on inhaler Puffs in the evening. Miscellaneo 2021-11 Yes [id number] J40: [facility] 1-22 Brochitis ity of Supply Kit 00:00: - Dispense [place] 00 # 1 Medical Thad Branch Respironic s (okay for alternativ e brand) for nebulizer treatment amoxicillin 2021-11 Yes [id number] 1{tbl} Take 1 [facility] -clavulanat 1-22 tablet by ity of e 00:00: mouth in [place] (AUGMENTIN) 00 the Medical 875-125 mg morning Branch per tablet and 1 tablet in the evening. albuterol 2021-11 Yes [id number] 2{puff} Inhale 2 [facility] 90 1-22 Puffs ity of mcg/actuati 00:00: every 6 [place] as on inhaler 00 (six) Medical hours as Branch needed for Wheezing or Shortness of Breath. ipratropium 2021-11 Yes [id number] .5mg Inhale 2.5 [facility] 0.02 % 1-22 mL every 6 ity of nebulizer 00:00: (six) [place] solution 00 hours as Medical needed for Branch Wheezing or Shortness of Breath. albuterol 2021-11 Yes [id number] 2.5mg Inhale 3 [facility] 2.5 mg /3 1-22 mL every 6 ity of mL (0.083 00:00: (six) [place] %) 00 hours as Medical nebulizer needed for Bran ch solution Wheezing or Shortness of Breath. budesonide- 2021-11 Yes [id number] 2{puff} Inhale 2 [facility] formoteroL 1-22 Puffs in ity o f (SYMBICORT) 00:00: the [place] 80-4.5 00 morning Medical mcg/actuati and 2 Branch on inhaler Puffs in the evening. Miscellaneo 2021-11 Yes [id number] J40: [facility] -22 Brochitis ity of Supply Kit 00:00: - Dispense [place] 00 # 1 Medical Thad Branch Respironic s (okay for alternativ e brand) for nebulizer treatment amoxicillin 2021-11 Yes [id number] 1{tbl} Take 1 [facility] -clavulanat 1-22 tablet by ity of e 00:00: mouth in [place] (AUGMENTIN) 00 the Medical 875-125 mg morning Branch per tablet and 1 tablet in the evening. albuterol 2021-11 Yes [id number] 2{puff} Inhale 2 [facility] 90 1-22 Puffs ity of mcg/actuati 00:00: every 6 [place] as on inhaler 00 (six) Medical hours as Branch needed for Wheezing or Shortness of Breath. ipratropium 2021-11 Yes [id number] .5mg Inhale 2.5 Univers 0.02 % 1-22 mL every 6 ity of nebulizer 00:00: (six) [place] solution 00 hours as Medical needed for Branch Wheezing or Shortness of Breath. albuterol 2021-11 Yes [id number] 2.5mg Inhale 3 Univers 2.5 mg /3 1-22 mL every 6 ity of mL (0.083 00:00: (six) [place] %) 00 hours as Medical nebulizer needed for Bran ch solution Wheezing or Shortness of Breath. budesonide- 2021-11 Yes [id number] 2{puff} Inhale 2 [facility] formoteroL 1-22 Puffs in ity o f (SYMBICORT) 00:00: the [place] 80-4.5 00 morning Medical mcg/actuati and 2 Branch on inhaler Puffs in the evening. Miscellaneo 2021-11 Yes [id number] J40: [facility] -22 Brochitis ity of Supply Kit 00:00: - Dispense [place] 00 # 1 Medical Thad Branch Respironic s (okay for alternativ e brand) for nebulizer treatment amoxicillin 2021-11 Yes [id number] 1{tbl} Take 1 [facility] -clavulanat 1-22 tablet by ity of e 00:00: mouth in [place] (AUGMENTIN) 00 the Medical 875-125 mg morning Branch per tablet and 1 tablet in the evening. albuterol 2021-11 Yes [id number] 2{puff} Inhale 2 [facility] 90 1-22 Puffs ity of mcg/actuati 00:00: every 6 [place] as on inhaler 00 (six) Medical hours as Branch needed for Wheezing or Shortness of Breath. ipratropium 2021-11 Yes [id number] .5mg Inhale 2.5 Univers 0.02 % 1-22 mL every 6 ity of nebulizer 00:00: (six) [place] solution 00 hours as Medical needed for Branch Wheezing or Shortness of Breath. albuterol 2021-11 Yes [id number] 2.5mg Inhale 3 Univers 2.5 mg /3 1-22 mL every 6 ity of mL (0.083 00:00: (six) [place] %) 00 hours as Medical nebulizer needed for Bran ch solution Wheezing or Shortness of Breath. budesonide- 2021-11 Yes [id number] 2{puff} Inhale 2 [facility] formoteroL 1-22 Puffs in ity o f (SYMBICORT) 00:00: the [place] 80-4.5 00 morning Medical mcg/actuati and 2 Branch on inhaler Puffs in the evening. Miscellaneo 2021-11 Yes [id number] J40: [facility] 1-22 Brochitis ity of Supply Kit 00:00: - Dispense [place] 00 # 1 Medical Thad Branch Respironic s (okay for alternativ e brand) for nebulizer treatment amoxicillin 2021-11 Yes [id number] 1{tbl} Take 1 [facility] -clavulanat 1-22 tablet by ity of e 00:00: mouth in [place] (AUGMENTIN) 00 the Medical 875-125 mg morning Branch per tablet and 1 tablet in the evening. albuterol 2021-11 Yes [id number] 2{puff} Inhale 2 [facility] 90 1-22 Puffs ity of mcg/actuati 00:00: every 6 [place] as on inhaler 00 (six) Medical hours as Branch needed for Wheezing or Shortness of Breath. ipratropium 2021-11 Yes [id number] .5mg Inhale 2.5 Univers 0.02 % 1-22 mL every 6 ity of nebulizer 00:00: (six) [place] solution 00 hours as Medical needed for Branch Wheezing or Shortness of Breath. albuterol 2021-11 Yes [id number] 2.5mg Inhale 3 Univers 2.5 mg /3 1-22 mL every 6 ity of mL (0.083 00:00: (six) [place] %) 00 hours as Medical nebulizer needed for Bran ch solution Wheezing or Shortness of Breath. budesonide- 2021-11 Yes [id number] 2{puff} Inhale 2 [facility] formoteroL 1-22 Puffs in ity o f (SYMBICORT) 00:00: the [place] 80-4.5 00 morning Medical mcg/actuati and 2 Branch on inhaler Puffs in the evening. Miscellaneo 2021-11 Yes [id number] J40: [facility] 1-22 Brochitis ity of Supply Kit 00:00: - Dispense [place] 00 # 1 Medical Thad Branch Respironic s (okay for alternativ e brand) for nebulizer treatment amoxicillin 2021-11 Yes [id number] 1{tbl} Take 1 [facility] -clavulanat 1-22 tablet by ity of e 00:00: mouth in [place] (AUGMENTIN) 00 the Medical 875-125 mg morning Branch per tablet and 1 tablet in the evening. albuterol 2021-11 Yes [id number] 2{puff} Inhale 2 [facility] 90 1-22 Puffs ity of mcg/actuati 00:00: every 6 [place] as on inhaler 00 (six) Medical hours as Branch needed for Wheezing or Shortness of Breath. ipratropium 2021-11 Yes [id number] .5mg Inhale 2.5 Univers 0.02 % 1-22 mL every 6 ity of nebulizer 00:00: (six) [place] solution 00 hours as Medical needed for Branch Wheezing or Shortness of Breath. albuterol 2021-11 Yes [id number] 2.5mg Inhale 3 [facility] 2.5 mg /3 1-22 mL every 6 ity of mL (0.083 00:00: (six) [place] %) 00 hours as Medical nebulizer needed for Bran ch solution Wheezing or Shortness of Breath. budesonide- 2021-11 Yes [id number] 2{puff} Inhale 2 [facility] formoteroL 1-22 Puffs in ity o f (SYMBICORT) 00:00: the [place] 80-4.5 00 morning Medical mcg/actuati and 2 Branch on inhaler Puffs in the evening. Miscellaneo 2021-11 Yes [id number] J40: [facility] 1-22 Brochitis ity of Supply Kit 00:00: - Dispense [place] 00 # 1 Medical Thad Branch Respironic s (okay for alternativ e brand) for nebulizer treatment amoxicillin 2021-11 Yes [id number] 1{tbl} Take 1 [facility] -clavulanat 1-22 tablet by ity of e 00:00: mouth in [place] (AUGMENTIN) 00 the Medical 875-125 mg morning Branch per tablet and 1 tablet in the evening. albuterol 2021-11 Yes [id number] 2{puff} Inhale 2 [facility] 90 1-22 Puffs ity of mcg/actuati 00:00: every 6 [place] as on inhaler 00 (six) Medical hours as Branch needed for Wheezing or Shortness of Breath. ipratropium 2021-11 Yes [id number] .5mg Inhale 2.5 Univers 0.02 % 1-22 mL every 6 ity of nebulizer 00:00: (six) [place] solution 00 hours as Medical needed for Branch Wheezing or Shortness of Breath. albuterol 2021-11 Yes [id number] 2.5mg Inhale 3 [facility] 2.5 mg /3 1-22 mL every 6 ity of mL (0.083 00:00: (six) [place] %) 00 hours as Medical nebulizer needed for Bran ch solution Wheezing or Shortness of Breath. budesonide- 2021-11 Yes [id number] 2{puff} Inhale 2 [facility] formoteroL 1-22 Puffs in ity o f (SYMBICORT) 00:00: the [place] 80-4.5 00 morning Medical mcg/actuati and 2 Branch on inhaler Puffs in the evening. Miscellaneo 2021-11 Yes [id number] J40: [facility] 11-27 Brochitis ity of Supply Kit 00:00: - Dispense [place] 00 # 1 Medical Thad Branch Respironic s (okay for alternativ e brand) for nebulizer treatment amoxicillin 2021-11 Yes [id number] 1{tbl} Take 1 [facility] -clavulanat 1-22 tablet by ity of e 00:00: mouth in [place] (AUGMENTIN) 00 the Medical 875-125 mg morning Branch per tablet and 1 tablet in the evening. albuterol 2021-11 Yes [id number] 2{puff} Inhale 2 [facility] 90 1-22 Puffs ity of mcg/actuati 00:00: every 6 [place] as on inhaler 00 (six) Medical hours as Branch needed for Wheezing or Shortness of Breath. ipratropium 2021-11 Yes [id number] .5mg Inhale 2.5 Univers 0.02 % 1-22 mL every 6 ity of nebulizer 00:00: (six) [place] solution 00 hours as Medical needed for Branch Wheezing or Shortness of Breath. albuterol 2021-11 Yes [id number] 2.5mg Inhale 3 [facility] 2.5 mg /3 1-22 mL every 6 ity of mL (0.083 00:00: (six) [place] %) 00 hours as Medical nebulizer needed for Bran ch solution Wheezing or Shortness of Breath. budesonide- 2021-11 Yes [id number] 2{puff} Inhale 2 [facility] formoteroL 1-22 Puffs in ity o f (SYMBICORT) 00:00: the [place] 80-4.5 00 morning Medical mcg/actuati and 2 Branch on inhaler Puffs in the evening. Miscellaneo 2021-11 Yes [id number] J40: [facility] 11-27 Brochitis ity of Supply Kit 00:00: - Dispense [place] 00 # 1 Medical Thad Branch Respironic s (okay for alternativ e brand) for nebulizer treatment amoxicillin 2021-11 Yes [id number] 1{tbl} Take 1 [facility] -clavulanat 1-22 tablet by ity of e 00:00: mouth in [place] (AUGMENTIN) 00 the Medical 875-125 mg morning Branch per tablet and 1 tablet in the evening. albuterol 2021-11 Yes [id number] 2{puff} Inhale 2 [facility] 90 1-22 Puffs ity of mcg/actuati 00:00: every 6 [place] as on inhaler 00 (six) Medical hours as Branch needed for Wheezing or Shortness of Breath. ipratropium 2021-11 Yes [id number] .5mg Inhale 2.5 [facility] 0.02 % 1-22 mL every 6 ity of nebulizer 00:00: (six) [place] solution 00 hours as Medical needed for Branch Wheezing or Shortness of Breath. albuterol 2021-11 Yes [id number] 2.5mg Inhale 3 [facility] 2.5 mg /3 1-22 mL every 6 ity of mL (0.083 00:00: (six) [place] %) 00 hours as Medical nebulizer needed for Bran ch solution Wheezing or Shortness of Breath. budesonide- 2021-11 Yes [id number] 2{puff} Inhale 2 [facility] formoteroL 1-22 Puffs in ity o f (SYMBICORT) 00:00: the [place] 80-4.5 00 morning Medical mcg/actuati and 2 Branch on inhaler Puffs in the evening. Miscellaneo 2021-11 Yes [id number] J40: [facility] Medical 1-22 Brochitis ity of Supply Kit 00:00: - Dispense [place] 00 # 1 Medical Thad Branch Respironic s (okay for alternativ e brand) for nebulizer treatment albuterol 2021-11 Yes [id number] 2{puff} Inhale 2 [facility] 90 1-22 Puffs ity of mcg/actuati 00:00: every 6 [place] as on inhaler 00 (six) Medical hours as Branch needed for Wheezing or Shortness of Breath. ipratropium 2021-11 Yes [id number] .5mg Inhale 2.5 [facility] 0.02 % 1-22 mL every 6 ity of nebulizer 00:00: (six) [place] solution 00 hours as Medical needed for Branch Wheezing or Shortness of Breath. albuterol 2021-11 Yes [id number] 2.5mg Inhale 3 [facility] 2.5 mg /3 1-22 mL every 6 ity of mL (0.083 00:00: (six) [place] %) 00 hours as Medical nebulizer needed for Bran ch solution Wheezing or Shortness of Breath. budesonide- 2021-11 Yes [id number] 2{puff} Inhale 2 [facility] formoteroL 1-22 Puffs in ity o f (SYMBICORT) 00:00: the [place] 80-4.5 00 morning Medical mcg/actuati and 2 Branch on inhaler Puffs in the evening. Miscellaneo 2021-11 Yes [id number] J40: [facility] 11-27 Brochitis ity of Supply Kit 00:00: - Dispense [place] 00 # 1 Medical Thad Branch Respironic s (okay for alternativ e brand) for nebulizer treatment albuterol 2021-11 Yes [id number] 2{puff} Inhale 2 [facility] 90 1-22 Puffs ity of mcg/actuati 00:00: every 6 [place] as on inhaler 00 (six) Medical hours as Branch needed for Wheezing or Shortness of Breath. ipratropium 2021-11 Yes [id number] .5mg Inhale 2.5 [facility] 0.02 % 1-22 mL every 6 ity of nebulizer 00:00: (six) [place] solution 00 hours as Medical needed for Branch Wheezing or Shortness of Breath. albuterol 2021-11 Yes [id number] 2.5mg Inhale 3 [facility] 2.5 mg /3 1-22 mL every 6 ity of mL (0.083 00:00: (six) [place] %) 00 hours as Medical nebulizer needed for Bran ch solution Wheezing or Shortness of Breath. budesonide- 2021-11 Yes [id number] 2{puff} Inhale 2 [facility] formoteroL 1-22 Puffs in ity o f (SYMBICORT) 00:00: the [place] 80-4.5 00 morning Medical mcg/actuati and 2 Branch on inhaler Puffs in the evening. Miscellaneo 2021-11 Yes [id number] J40: [facility] 11-27 Brochitis ity of Supply Kit 00:00: - Dispense [place] 00 # 1 Medical Thad Branch Respironic s (okay for alternativ e brand) for nebulizer treatment albuterol 2021-11 Yes [id number] 2{puff} Inhale 2 [facility] 90 1-22 Puffs ity of mcg/actuati 00:00: every 6 [place] as on inhaler 00 (six) Medical hours as Branch needed for Wheezing or Shortness of Breath. ipratropium 2021-11 Yes [id number] .5mg Inhale 2.5 [facility] 0.02 % 1-22 mL every 6 ity of nebulizer 00:00: (six) [place] solution 00 hours as Medical needed for Branch Wheezing or Shortness of Breath. albuterol 2021-11 Yes [id number] 2.5mg Inhale 3 [facility] 2.5 mg /3 1-22 mL every 6 ity of mL (0.083 00:00: (six) [place] %) 00 hours as Medical nebulizer needed for Bran ch solution Wheezing or Shortness of Breath. budesonide- 2021-11 Yes [id number] 2{puff} Inhale 2 [facility] formoteroL 1-22 Puffs in ity o f (SYMBICORT) 00:00: the [place] 80-4.5 00 morning Medical mcg/actuati and 2 Branch on inhaler Puffs in the evening. Miscellaneo 2021-11 Yes [id number] J40: [facility] 1-22 Brochitis ity of Supply Kit 00:00: - Dispense [place] 00 # 1 Medical Thad Branch Respironic s (okay for alternativ e brand) for nebulizer treatment albuterol 2021-11 Yes [id number] 2{puff} Inhale 2 [facility] 90 1-22 Puffs ity of mcg/actuati 00:00: every 6 [place] as on inhaler 00 (six) Medical hours as Branch needed for Wheezing or Shortness of Breath. ipratropium 2021-11 Yes [id number] .5mg Inhale 2.5 [facility] 0.02 % 1-22 mL every 6 ity of nebulizer 00:00: (six) [place] solution 00 hours as Medical needed for Branch Wheezing or Shortness of Breath. albuterol 2021-11 Yes [id number] 2.5mg Inhale 3 [facility] 2.5 mg /3 1-22 mL every 6 ity of mL (0.083 00:00: (six) [place] %) 00 hours as Medical nebulizer needed for Bran ch solution Wheezing or Shortness of Breath. budesonide- 2021-11 Yes [id number] 2{puff} Inhale 2 [facility] formoteroL 1-22 Puffs in ity o f (SYMBICORT) 00:00: the [place] 80-4.5 00 morning Medical mcg/actuati and 2 Branch on inhaler Puffs in the evening. Miscellaneo 2021-11 Yes [id number] J40: [facility] 11-27 Brochitis ity of Supply Kit 00:00: - [place] 00 # 1 Medical Thad Branch Respironic s (okay for alternativ e brand) for nebulizer treatment albuterol 2021-11 Yes [id number] 2{puff} Inhale 2 [facility] 90 1-22 Puffs ity of mcg/actuati 00:00: every 6 [place] as on inhaler 00 (six) Medical hours as Branch needed for Wheezing or Shortness of Breath. ipratropium 2021-11 Yes [id number] .5mg Inhale 2.5 [facility] 0.02 % 1-22 mL every 6 ity of nebulizer 00:00: (six) [place] solution 00 hours as Medical needed for Branch Wheezing or Shortness of Breath. albuterol 2021-11 Yes [id number] 2.5mg Inhale 3 [facility] 2.5 mg /3 1-22 mL every 6 ity of mL (0.083 00:00: (six) [place] %) 00 hours as Medical nebulizer needed for Bran ch solution Wheezing or Shortness of Breath. budesonide- 2021-11 Yes [id number] 2{puff} Inhale 2 [facility] formoteroL 1-22 Puffs in ity o f (SYMBICORT) 00:00: the [place] 80-4.5 00 morning Medical mcg/actuati and 2 Branch on inhaler Puffs in the evening. Miscellaneo 2021-11 Yes [id number] J40: [facility] 11-27 Brochitis ity of Supply Kit 00:00: - [place] 00 # 1 Medical Thad Branch Respironic s (okay for alternativ e brand) for nebulizer treatment albuterol 2021-11 Yes [id number] 2{puff} Inhale 2 [facility] 90 1-22 Puffs ity of mcg/actuati 00:00: every 6 [place] as on inhaler 00 (six) Medical hours as Branch needed for Wheezing or Shortness of Breath. ipratropium 2021-11 Yes [id number] .5mg Inhale 2.5 [facility] 0.02 % 1-22 mL every 6 ity of nebulizer 00:00: (six) [place] solution 00 hours as Medical needed for Branch Wheezing or Shortness of Breath. albuterol 2021-11 Yes [id number] 2.5mg Inhale 3 [facility] 2.5 mg /3 1-22 mL every 6 ity of mL (0.083 00:00: (six) [place] %) 00 hours as Medical nebulizer needed for Bran ch solution Wheezing or Shortness of Breath. budesonide- 2021-11 Yes [id number] 2{puff} Inhale 2 [facility] formoteroL 1-22 Puffs in ity o f (SYMBICORT) 00:00: the [place] 80-4.5 00 morning Medical mcg/actuati and 2 Branch on inhaler Puffs in the evening. Miscellaneo 2021-11 Yes [id number] J40: [facility] 1-22 Brochitis ity of Supply Kit 00:00: - [place]ense [place] 00 # 1 Medical Thad Branch Respironic s (okay for alternativ e brand) for nebulizer treatment albuterol 2021-11 Yes [id number] 2{puff} Inhale 2 [facility] 90 1-22 Puffs ity of mcg/actuati 00:00: every 6 [place] as on inhaler 00 (six) Medical hours as Branch needed for Wheezing or Shortness of Breath. ipratropium 2021-11 Yes [id number] .5mg Inhale 2.5 [facility] 0.02 % 1-22 mL every 6 ity of nebulizer 00:00: (six) [place] solution 00 hours as Medical needed for Branch Wheezing or Shortness of Breath. albuterol 2021-11 Yes [id number] 2.5mg Inhale 3 [facility] 2.5 mg /3 1-22 mL every 6 ity of mL (0.083 00:00: (six) [place] %) 00 hours as Medical nebulizer needed for Bran ch solution Wheezing or Shortness of Breath. budesonide- 2021-11 Yes [id number] 2{puff} Inhale 2 [facility] formoteroL 1-22 Puffs in ity o f (SYMBICORT) 00:00: the [place] 80-4.5 00 morning Medical mcg/actuati and 2 Branch on inhaler Puffs in the evening. Miscellaneo 2021-11 Yes [id number] J40: [facility] 11-27 Brochitis ity of Supply Kit 00:00: - [place]ense [place] 00 # 1 Medical Thad Branch Respironic s (okay for alternativ e brand) for nebulizer treatment albuterol 2021-11 Yes [id number] 2{puff} Inhale 2 [facility] 90 1-22 Puffs ity of mcg/actuati 00:00: every 6 [place] as on inhaler 00 (six) Medical hours as Branch needed for Wheezing or Shortness of Breath. ipratropium 2021-11 Yes [id number] .5mg Inhale 2.5 [facility] 0.02 % 1-22 mL every 6 ity of nebulizer 00:00: (six) [place] solution 00 hours as Medical needed for Branch Wheezing or Shortness of Breath. albuterol 2021-11 Yes [id number] 2.5mg Inhale 3 [facility] 2.5 mg /3 1-22 mL every 6 ity of mL (0.083 00:00: (six) [place] %) 00 hours as Medical nebulizer needed for Bran ch solution Wheezing or Shortness of Breath. budesonide- 2021-11 Yes [id number] 2{puff} Inhale 2 [facility] formoteroL 1-22 Puffs in ity o f (SYMBICORT) 00:00: the [place] 80-4.5 00 morning Medical mcg/actuati and 2 Branch on inhaler Puffs in the evening. Miscellaneo 2021-11 Yes [id number] J40: [facility] 11-27 Brochitis ity of Supply Kit 00:00: - [place]ense [place] 00 # 1 Medical Thad Branch Respironic s (okay for alternativ e brand) for nebulizer treatment albuterol 2021-11 Yes [id number] 2{puff} Inhale 2 [facility] 90 1-22 Puffs ity of mcg/actuati 00:00: every 6 [place] as on inhaler 00 (six) Medical hours as Branch needed for Wheezing or Shortness of Breath. ipratropium 2021-11 Yes [id number] .5mg Inhale 2.5 [facility] 0.02 % 1-22 mL every 6 ity of nebulizer 00:00: (six) [place] solution 00 hours as Medical needed for Branch Wheezing or Shortness of Breath. albuterol 2021-11 Yes [id number] 2.5mg Inhale 3 [facility] 2.5 mg /3 1-22 mL every 6 ity of mL (0.083 00:00: (six) [place] %) 00 hours as Medical nebulizer needed for Bran ch solution Wheezing or Shortness of Breath. budesonide- 2021-11 Yes [id number] 2{puff} Inhale 2 [facility] formoteroL 1-22 Puffs in ity o f (SYMBICORT) 00:00: the [place] 80-4.5 00 morning Medical mcg/actuati and 2 Branch on inhaler Puffs in the evening. Miscellaneo 2021-11 Yes [id number] J40: [facility] 1-22 Brochitis ity of Supply Kit 00:00: - Dispense [place] 00 # 1 Medical Thad Branch Respironic s (okay for alternativ e brand) for nebulizer treatment albuterol 2021-11 Yes [id number] 2{puff} Inhale 2 [facility] 90 1-22 Puffs ity of mcg/actuati 00:00: every 6 [place] as on inhaler 00 (six) Medical hours as Branch needed for Wheezing or Shortness of Breath. ipratropium 2021-11 Yes [id number] .5mg Inhale 2.5 [facility] 0.02 % 1-22 mL every 6 ity of nebulizer 00:00: (six) [place] solution 00 hours as Medical needed for Branch Wheezing or Shortness of Breath. albuterol 2021-11 Yes [id number] 2.5mg Inhale 3 [facility] 2.5 mg /3 1-22 mL every 6 ity of mL (0.083 00:00: (six) [place] %) 00 hours as Medical nebulizer needed for Bran ch solution Wheezing or Shortness of Breath. budesonide- 2021-11 Yes [id number] 2{puff} Inhale 2 [facility] formoteroL 1-22 Puffs in ity o f (SYMBICORT) 00:00: the [place] 80-4.5 00 morning Medical mcg/actuati and 2 Branch on inhaler Puffs in the evening. Miscellaneo 2021-11 Yes [id number] J40: [facility] 11-27 Brochitis ity of Supply Kit 00:00: - [place]ense [place] 00 # 1 Medical Thad Branch Respironic s (okay for alternativ e brand) for nebulizer treatment albuterol 2021-11 Yes [id number] 2{puff} Inhale 2 [facility] 90 1-22 Puffs ity of mcg/actuati 00:00: every 6 [place] as on inhaler 00 (six) Medical hours as Branch needed for Wheezing or Shortness of Breath. ipratropium 2021-11 Yes [id number] .5mg Inhale 2.5 [facility] 0.02 % 1-22 mL every 6 ity of nebulizer 00:00: (six) [place] solution 00 hours as Medical needed for Branch Wheezing or Shortness of Breath. albuterol 2021-11 Yes [id number] 2.5mg Inhale 3 [facility] 2.5 mg /3 1-22 mL every 6 ity of mL (0.083 00:00: (six) [place] %) 00 hours as Medical nebulizer needed for Bran ch solution Wheezing or Shortness of Breath. budesonide- 2021-11 Yes [id number] 2{puff} Inhale 2 [facility] formoteroL 1-22 Puffs in ity o f (SYMBICORT) 00:00: the [place] 80-4.5 00 morning Medical mcg/actuati and 2 Branch on inhaler Puffs in the evening. Miscellaneo 2021-11 Yes [id number] J40: [facility] 11-27 Brochitis ity of Supply Kit 00:00: - Dispense [place] 00 # 1 Medical Thad Branch Respironic s (okay for alternativ e brand) for nebulizer treatment albuterol 2021-11 Yes [id number] 2{puff} Inhale 2 [facility] 90 1-22 Puffs ity of mcg/actuati 00:00: every 6 [place] as on inhaler 00 (six) Medical hours as Branch needed for Wheezing or Shortness of Breath. ipratropium 2021-11 Yes [id number] .5mg Inhale 2.5 [facility] 0.02 % 1-22 mL every 6 ity of nebulizer 00:00: (six) [place] solution 00 hours as Medical needed for Branch Wheezing or Shortness of Breath. albuterol 2021-11 Yes [id number] 2.5mg Inhale 3 [facility] 2.5 mg /3 1-22 mL every 6 ity of mL (0.083 00:00: (six) [place] %) 00 hours as Medical nebulizer needed for Bran ch solution Wheezing or Shortness of Breath. budesonide- 2021-11 Yes [id number] 2{puff} Inhale 2 [facility] formoteroL 1-22 Puffs in ity o f (SYMBICORT) 00:00: the [place] 80-4.5 00 morning Medical mcg/actuati and 2 Branch on inhaler Puffs in the evening. Miscellaneo 2021-11 Yes [id number] J40: [facility] 11-27 Brochitis ity of Supply Kit 00:00: - Dispense [place] 00 # 1 Medical Thad Branch Respironic s (okay for alternativ e brand) for nebulizer treatment albuterol 2021-11 Yes [id number] 2{puff} Inhale 2 [facility] 90 1-22 Puffs ity of mcg/actuati 00:00: every 6 [place] as on inhaler 00 (six) Medical hours as Branch needed for Wheezing or Shortness of Breath. ipratropium 2021-11 Yes [id number] .5mg Inhale 2.5 [facility] 0.02 % 1-22 mL every 6 ity of nebulizer 00:00: (six) [place] solution 00 hours as Medical needed for Branch Wheezing or Shortness of Breath. albuterol 2021-11 Yes [id number] 2.5mg Inhale 3 [facility] 2.5 mg /3 1-22 mL every 6 ity of mL (0.083 00:00: (six) [place] %) 00 hours as Medical nebulizer needed for Bran ch solution Wheezing or Shortness of Breath. budesonide- 2021-11 Yes [id number] 2{puff} Inhale 2 [facility] formoteroL 1-22 Puffs in ity o f (SYMBICORT) 00:00: the [place] 80-4.5 00 morning Medical mcg/actuati and 2 Branch on inhaler Puffs in the evening. Miscellaneo 2021-11 Yes [id number] J40: [facility] 11-27 Brochitis ity of Supply Kit 00:00: - Dispense [place] 00 # 1 Medical Thad Branch Respironic s (okay for alternativ e brand) for nebulizer treatment albuterol 2021-11 Yes [id number] 2{puff} Inhale 2 [facility] 90 1-22 Puffs ity of mcg/actuati 00:00: every 6 [place] as on inhaler 00 (six) Medical hours as Branch needed for Wheezing or Shortness of Breath. ipratropium 2021-11 Yes [id number] .5mg Inhale 2.5 [facility] 0.02 % 1-22 mL every 6 ity of nebulizer 00:00: (six) [place] solution 00 hours as Medical needed for Branch Wheezing or Shortness of Breath. albuterol 2021-11 Yes [id number] 2.5mg Inhale 3 [facility] 2.5 mg /3 1-22 mL every 6 ity of mL (0.083 00:00: (six) [place] %) 00 hours as Medical nebulizer needed for Bran ch solution Wheezing or Shortness of Breath. budesonide- 2021-11 Yes [id number] 2{puff} Inhale 2 [facility] formoteroL 1-22 Puffs in ity o f (SYMBICORT) 00:00: the [place] 80-4.5 00 morning Medical mcg/actuati and 2 Branch on inhaler Puffs in the evening. Miscellaneo 2021-11 Yes [id number] J40: [facility] 11-[facility] Kit 00:00: - Dispense [place] 00 # 1 Medical Thad Branch Respironic s (okay for alternativ e brand) for nebulizer treatment albuterol 2021-11 Yes [id number] 2{puff} Inhale 2 [facility] 90 1-22 Puffs ity of mcg/actuati 00:00: every 6 [place] as on inhaler 00 (six) Medical hours as Branch needed for Wheezing or Shortness of Breath. ipratropium 2021-11 Yes [id number] .5mg Inhale 2.5 [facility] 0.02 % 1-22 mL every 6 ity of nebulizer 00:00: (six) [place] solution 00 hours as Medical needed for Branch Wheezing or Shortness of Breath. albuterol 2021-11 Yes [id number] 2.5mg Inhale 3 [facility] 2.5 mg /3 1-22 mL every 6 ity of mL (0.083 00:00: (six) [place] %) 00 hours as Medical nebulizer needed for Bran ch solution Wheezing or Shortness of Breath. budesonide- 2021-11 Yes [id number] 2{puff} Inhale 2 [facility] formoteroL 1-22 Puffs in ity o f (SYMBICORT) 00:00: the [place] 80-4.5 00 morning Medical mcg/actuati and 2 Branch on inhaler Puffs in the evening. Miscellaneo 2021-11 Yes [id number] J40: [facility] 11-27 Brochitis ity of Supply Kit 00:00: - Dispense [place] 00 # 1 Medical Thad Branch Respironic s (okay for alternativ e brand) for nebulizer treatment albuterol 2021-11 Yes [id number] 2{puff} Inhale 2 [facility] 90 1-22 Puffs ity of mcg/actuati 00:00: every 6 [place] as on inhaler 00 (six) Medical hours as Branch needed for Wheezing or Shortness of Breath. ipratropium 2021-11 Yes [id number] .5mg Inhale 2.5 [facility] 0.02 % 1-22 mL every 6 ity of nebulizer 00:00: (six) [place] solution 00 hours as Medical needed for Branch Wheezing or Shortness of Breath. albuterol 2021-11 Yes [id number] 2.5mg Inhale 3 [facility] 2.5 mg /3 1-22 mL every 6 ity of mL (0.083 00:00: (six) [place] %) 00 hours as Medical nebulizer needed for Bran ch solution Wheezing or Shortness of Breath. budesonide- 2021-11 Yes [id number] 2{puff} Inhale 2 [facility] formoteroL 1-22 Puffs in ity o f (SYMBICORT) 00:00: the [place] 80-4.5 00 morning Medical mcg/actuati and 2 Branch on inhaler Puffs in the evening. Miscellaneo 2021-11 Yes [id number] J40: [facility] 11-27 Brochitis ity of Supply Kit 00:00: - Dispense [place] 00 # 1 Medical Thad Branch Respironic s (okay for alternativ e brand) for nebulizer treatment albuterol 2021-11 Yes [id number] 2{puff} Inhale 2 [facility] 90 1-22 Puffs ity of mcg/actuati 00:00: every 6 [place] as on inhaler 00 (six) Medical hours as Branch needed for Wheezing or Shortness of Breath. ipratropium 2021-11 Yes [id number] .5mg Inhale 2.5 [facility] 0.02 % 1-22 mL every 6 ity of nebulizer 00:00: (six) [place] solution 00 hours as Medical needed for Branch Wheezing or Shortness of Breath. albuterol 2021-11 Yes [id number] 2.5mg Inhale 3 [facility] 2.5 mg /3 1-22 mL every 6 ity of mL (0.083 00:00: (six) [place] %) 00 hours as Medical nebulizer needed for Bran ch solution Wheezing or Shortness of Breath. budesonide- 2021-11 Yes [id number] 2{puff} Inhale 2 [facility] formoteroL 1-22 Puffs in ity o f (SYMBICORT) 00:00: the [place] 80-4.5 00 morning Medical mcg/actuati and 2 Branch on inhaler Puffs in the evening. Miscellaneo 2021-11 Yes [id number] J40: [facility] Medical 1-22 Brochitis ity of Supply Kit 00:00: - Dispense [place] 00 # 1 Medical Thad Branch Respironic s (okay for alternativ e brand) for nebulizer treatment albuterol 2021-11 Yes [id number] 2{puff} Inhale 2 [facility] 90 1-22 Puffs ity of mcg/actuati 00:00: every 6 [place] as on inhaler 00 (six) Medical hours as Branch needed for Wheezing or Shortness of Breath. ipratropium 2021-11 Yes [id number] .5mg Inhale 2.5 [facility] 0.02 % 1-22 mL every 6 ity of nebulizer 00:00: (six) [place] solution 00 hours as Medical needed for Branch Wheezing or Shortness of Breath. albuterol 2021-11 Yes [id number] 2.5mg Inhale 3 [facility] 2.5 mg /3 1-22 mL every 6 ity of mL (0.083 00:00: (six) [place] %) 00 hours as Medical nebulizer needed for Bran ch solution Wheezing or Shortness of Breath. budesonide- 2021-11 Yes [id number] 2{puff} Inhale 2 [facility] formoteroL 1-22 Puffs in ity o f (SYMBICORT) 00:00: the [place] 80-4.5 00 morning Medical mcg/actuati and 2 Branch on inhaler Puffs in the evening. Miscellaneo 2021-11 Yes [id number] J40: [facility] 11-27 Brochitis ity of Supply Kit 00:00: - Dispense [place] 00 # 1 Medical Thad Branch Respironic s (okay for alternativ e brand) for nebulizer treatment albuterol 2021-11 Yes [id number] 2{puff} Inhale 2 [facility] 90 1-22 Puffs ity of mcg/actuati 00:00: every 6 [place] as on inhaler 00 (six) Medical hours as Branch needed for Wheezing or Shortness of Breath. ipratropium 2021-11 Yes [id number] .5mg Inhale 2.5 [facility] 0.02 % 1-22 mL every 6 ity of nebulizer 00:00: (six) [place] solution 00 hours as Medical needed for Branch Wheezing or Shortness of Breath. albuterol 2021-11 Yes [id number] 2.5mg Inhale 3 [facility] 2.5 mg /3 1-22 mL every 6 ity of mL (0.083 00:00: (six) [place] %) 00 hours as Medical nebulizer needed for Bran ch solution Wheezing or Shortness of Breath. budesonide- 2021-11 Yes [id number] 2{puff} Inhale 2 [facility] formoteroL 1-22 Puffs in ity o f (SYMBICORT) 00:00: the [place] 80-4.5 00 morning Medical mcg/actuati and 2 Branch on inhaler Puffs in the evening. Miscellaneo 2021-11 Yes [id number] J40: [facility] 11-27 Brochitis ity of Supply Kit 00:00: - Dispense [place] 00 # 1 Medical Thad Branch Respironic s (okay for alternativ e brand) for nebulizer treatment albuterol 2021-11 Yes [id number] 2{puff} Inhale 2 [facility] 90 1-22 Puffs ity of mcg/actuati 00:00: every 6 [place] as on inhaler 00 (six) Medical hours as Branch needed for Wheezing or Shortness of Breath. ipratropium 2021-11 Yes [id number] .5mg Inhale 2.5 [facility] 0.02 % 1-22 mL every 6 ity of nebulizer 00:00: (six) [place] solution 00 hours as Medical needed for Branch Wheezing or Shortness of Breath. albuterol 2021-11 Yes [id number] 2.5mg Inhale 3 [facility] 2.5 mg /3 1-22 mL every 6 ity of mL (0.083 00:00: (six) [place] %) 00 hours as Medical nebulizer needed for Bran ch solution Wheezing or Shortness of Breath. budesonide- 2021-11 Yes [id number] 2{puff} Inhale 2 [facility] formoteroL 1-22 Puffs in ity o f (SYMBICORT) 00:00: the [place] 80-4.5 00 morning Medical mcg/actuati and 2 Branch on inhaler Puffs in the evening. Miscellaneo 2021-11 Yes [id number] J40: [facility] 1-22 Brochitis ity of Supply Kit 00:00: - Dispense [place] 00 # 1 Medical Thad Branch Respironic s (okay for alternativ e brand) for nebulizer treatment albuterol 2021-11 Yes [id number] 2{puff} Inhale 2 [facility] 90 1-22 Puffs ity of mcg/actuati 00:00: every 6 [place] as on inhaler 00 (six) Medical hours as Branch needed for Wheezing or Shortness of Breath. ipratropium 2021-11 Yes [id number] .5mg Inhale 2.5 [facility] 0.02 % 1-22 mL every 6 ity of nebulizer 00:00: (six) [place] solution 00 hours as Medical needed for Branch Wheezing or Shortness of Breath. albuterol 2021-11 Yes [id number] 2.5mg Inhale 3 [facility] 2.5 mg /3 1-22 mL every 6 ity of mL (0.083 00:00: (six) [place] %) 00 hours as Medical nebulizer needed for Bran ch solution Wheezing or Shortness of Breath. budesonide- 2021-11 Yes [id number] 2{puff} Inhale 2 [facility] formoteroL 1-22 Puffs in ity o f (SYMBICORT) 00:00: the [place] 80-4.5 00 morning Medical mcg/actuati and 2 Branch on inhaler Puffs in the evening. Miscellaneo 2021-11 Yes [id number] J40: [facility] 11-27 Brochitis ity of Supply Kit 00:00: - Dispense [place] 00 # 1 Medical Thad Branch Respironic s (okay for alternativ e brand) for nebulizer treatment albuterol 2021-11 Yes [id number] 2{puff} Inhale 2 [facility] 90 1-22 Puffs ity of mcg/actuati 00:00: every 6 [place] as on inhaler 00 (six) Medical hours as Branch needed for Wheezing or Shortness of Breath. ipratropium 2021-11 Yes [id number] .5mg Inhale 2.5 [facility] 0.02 % 1-22 mL every 6 ity of nebulizer 00:00: (six) [place] solution 00 hours as Medical needed for Branch Wheezing or Shortness of Breath. albuterol 2021-11 Yes [id number] 2.5mg Inhale 3 [facility] 2.5 mg /3 1-22 mL every 6 ity of mL (0.083 00:00: (six) [place] %) 00 hours as Medical nebulizer needed for Bran ch solution Wheezing or Shortness of Breath. budesonide- 2021-11 Yes [id number] 2{puff} Inhale 2 [facility] formoteroL 1-22 Puffs in ity o f (SYMBICORT) 00:00: the [place] 80-4.5 00 morning Medical mcg/actuati and 2 Branch on inhaler Puffs in the evening. Miscellaneo 2021-11 Yes [id number] J40: [facility] 11-27 Brochitis ity of Supply Kit 00:00: - Dispense [place] 00 # 1 Medical Thad Branch Respironic s (okay for alternativ e brand) for nebulizer treatment albuterol 2021-11 Yes [id number] 2{puff} Inhale 2 [facility] 90 1-22 Puffs ity of mcg/actuati 00:00: every 6 [place] as on inhaler 00 (six) Medical hours as Branch needed for Wheezing or Shortness of Breath. ipratropium 2021-11 Yes [id number] .5mg Inhale 2.5 [facility] 0.02 % 1-22 mL every 6 ity of nebulizer 00:00: (six) [place] solution 00 hours as Medical needed for Branch Wheezing or Shortness of Breath. albuterol 2021-11 Yes [id number] 2.5mg Inhale 3 [facility] 2.5 mg /3 1-22 mL every 6 ity of mL (0.083 00:00: (six) [place] %) 00 hours as Medical nebulizer needed for Bran ch solution Wheezing or Shortness of Breath. budesonide- 2021-11 Yes [id number] 2{puff} Inhale 2 [facility] formoteroL 1-22 Puffs in ity o f (SYMBICORT) 00:00: the [place] 80-4.5 00 morning Medical mcg/actuati and 2 Branch on inhaler Puffs in the evening. Miscellaneo 2021-11 Yes [id number] J40: [facility] 1-22 Brochitis ity of Supply Kit 00:00: - Dispense [place] 00 # 1 Medical Thad Branch Respironic s (okay for alternativ e brand) for nebulizer treatment albuterol 2021-11 Yes [id number] 2{puff} Inhale 2 [facility] 90 1-22 Puffs ity of mcg/actuati 00:00: every 6 [place] as on inhaler 00 (six) Medical hours as Branch needed for Wheezing or Shortness of Breath. ipratropium 2021-11 Yes [id number] .5mg Inhale 2.5 [facility] 0.02 % 1-22 mL every 6 ity of nebulizer 00:00: (six) [place] solution 00 hours as Medical needed for Branch Wheezing or Shortness of Breath. albuterol 2021-11 Yes [id number] 2.5mg Inhale 3 [facility] 2.5 mg /3 1-22 mL every 6 ity of mL (0.083 00:00: (six) [place] %) 00 hours as Medical nebulizer needed for Bran ch solution Wheezing or Shortness of Breath. budesonide- 2021-11 Yes [id number] 2{puff} Inhale 2 [facility] formoteroL 1-22 Puffs in ity o f (SYMBICORT) 00:00: the [place] 80-4.5 00 morning Medical mcg/actuati and 2 Branch on inhaler Puffs in the evening. Miscellaneo 2021-11 Yes [id number] J40: [facility] 11-27 Brochitis ity of Supply Kit 00:00: - Dispense [place] 00 # 1 Medical Thad Branch Respironic s (okay for alternativ e brand) for nebulizer treatment albuterol 2021-11 Yes [id number] 2{puff} Inhale 2 [facility] 90 1-22 Puffs ity of mcg/actuati 00:00: every 6 [place] as on inhaler 00 (six) Medical hours as Branch needed for Wheezing or Shortness of Breath. ipratropium 2021-11 Yes [id number] .5mg Inhale 2.5 [facility] 0.02 % 1-22 mL every 6 ity of nebulizer 00:00: (six) [place] solution 00 hours as Medical needed for Branch Wheezing or Shortness of Breath. albuterol 2021-11 Yes [id number] 2.5mg Inhale 3 [facility] 2.5 mg /3 1-22 mL every 6 ity of mL (0.083 00:00: (six) [place] %) 00 hours as Medical nebulizer needed for Bran ch solution Wheezing or Shortness of Breath. budesonide- 2021-11 Yes [id number] 2{puff} Inhale 2 [facility] formoteroL 1-22 Puffs in ity o f (SYMBICORT) 00:00: the [place] 80-4.5 00 morning Medical mcg/actuati and 2 Branch on inhaler Puffs in the evening. Miscellaneo 2021-11 Yes [id number] J40: [facility] 11-27 Brochitis ity of Supply Kit 00:00: - Dispense [place] 00 # 1 Medical Thad Branch Respironic s (okay for alternativ e brand) for nebulizer treatment albuterol 2021-11 Yes [id number] 2{puff} Inhale 2 [facility] 90 1-22 Puffs ity of mcg/actuati 00:00: every 6 [place] as on inhaler 00 (six) Medical hours as Branch needed for Wheezing or Shortness of Breath. ipratropium 2021-11 Yes [id number] .5mg Inhale 2.5 [facility] 0.02 % 1-22 mL every 6 ity of nebulizer 00:00: (six) [place] solution 00 hours as Medical needed for Branch Wheezing or Shortness of Breath. albuterol 2021-11 Yes [id number] 2.5mg Inhale 3 [facility] 2.5 mg /3 1-22 mL every 6 ity of mL (0.083 00:00: (six) [place] %) 00 hours as Medical nebulizer needed for Bran ch solution Wheezing or Shortness of Breath. budesonide- 2021-11 Yes [id number] 2{puff} Inhale 2 [facility] formoteroL 1-22 Puffs in ity o f (SYMBICORT) 00:00: the [place] 80-4.5 00 morning Medical mcg/actuati and 2 Branch on inhaler Puffs in the evening. Miscellaneo 2021-11 Yes [id number] J40: [facility] 1-22 Brochitis ity of Supply Kit 00:00: - Dispense [place] 00 # 1 Medical Thad Branch Respironic s (okay for alternativ e brand) for nebulizer treatment albuterol 2021-11 Yes [id number] 2{puff} Inhale 2 [facility] 90 1-22 Puffs ity of mcg/actuati 00:00: every 6 [place] as on inhaler 00 (six) Medical hours as Branch needed for Wheezing or Shortness of Breath. ipratropium 2021-11 Yes [id number] .5mg Inhale 2.5 [facility] 0.02 % 1-22 mL every 6 ity of nebulizer 00:00: (six) [place] solution 00 hours as Medical needed for Branch Wheezing or Shortness of Breath. albuterol 2021-11 Yes [id number] 2.5mg Inhale 3 [facility] 2.5 mg /3 1-22 mL every 6 ity of mL (0.083 00:00: (six) [place] %) 00 hours as Medical nebulizer needed for Bran ch solution Wheezing or Shortness of Breath. budesonide- 2021-11 Yes [id number] 2{puff} Inhale 2 [facility] formoteroL 1-22 Puffs in ity o f (SYMBICORT) 00:00: the [place] 80-4.5 00 morning Medical mcg/actuati and 2 Branch on inhaler Puffs in the evening. Miscellaneo 2021-11 Yes [id number] J40: [facility] 11-27 [place] ity of Supply Kit 00:00: [place] 00 # 1 Medical Thad Branch Respironic s (okay for alternativ e brand) for nebulizer treatment albuterol 2021-11 Yes [id number] 2{puff} Inhale 2 [facility] 90 1-22 Puffs ity of mcg/actuati 00:00: every 6 [place] as on inhaler 00 (six) Medical hours as Branch needed for Wheezing or Shortness of Breath. ipratropium 2021-11 Yes [id number] .5mg Inhale 2.5 [facility] 0.02 % 1-22 mL every 6 ity of nebulizer 00:00: (six) [place] solution 00 hours as Medical needed for Branch Wheezing or Shortness of Breath. albuterol 2021-11 Yes [id number] 2.5mg Inhale 3 [facility] 2.5 mg /3 1-22 mL every 6 ity of mL (0.083 00:00: (six) [place] %) 00 hours as Medical nebulizer needed for Bran ch solution Wheezing or Shortness of Breath. budesonide- 2021-11 Yes [id number] 2{puff} Inhale 2 [facility] formoteroL 1-22 Puffs in ity o f (SYMBICORT) 00:00: the [place] 80-4.5 00 morning Medical mcg/actuati and 2 Branch on inhaler Puffs in the evening. Miscellaneo 2021-11 Yes [id number] J40: [facility] 11-27 [place] ity of Supply Kit 00:00: - [place] 00 # 1 Medical Thad Branch Respironic s (okay for alternativ e brand) for nebulizer treatment ipratropium 2021-11 Yes [id number] .5mg Inhale 2.5 [facility] 0.02 % 1-22 mL every 6 ity of nebulizer 00:00: (six) [place] solution 00 hours as Medical needed for Branch Wheezing or Shortness of Breath. albuterol 2021-11 Yes [id number] 2.5mg Inhale 3 [facility] 2.5 mg /3 1-22 mL every 6 ity of mL (0.083 00:00: (six) [place] %) 00 hours as Medical nebulizer needed for Bran ch solution Wheezing or Shortness of Breath. budesonide- 2021-11 Yes [id number] 2{puff} Inhale 2 [facility] formoteroL 1-22 Puffs in ity o f (SYMBICORT) 00:00: the [place] 80-4.5 00 morning Medical mcg/actuati and 2 Branch on inhaler Puffs in the evening. Miscellaneo 2021-11 Yes [id number] J40: [facility] 11-27 Bro[place] ity of Supply Kit 00:00: - [place]ense [place] 00 # 1 Medical Thad Branch Respironic s (okay for alternativ e brand) for nebulizer treatment ipratropium 2021-11 Yes [id number] .5mg Inhale 2.5 [facility] 0.02 % 1-22 mL every 6 ity of nebulizer 00:00: (six) [place] solution 00 hours as Medical needed for Branch Wheezing or Shortness of Breath. albuterol 2021-11 Yes [id number] 2.5mg Inhale 3 [facility] 2.5 mg /3 1-22 mL every 6 ity of mL (0.083 00:00: (six) [place] %) 00 hours as Medical nebulizer needed for Bran ch solution Wheezing or Shortness of Breath. budesonide- 2021-11 Yes [id number] 2{puff} Inhale 2 [facility] formoteroL 1-22 Puffs in ity o f (SYMBICORT) 00:00: the [place] 80-4.5 00 morning Medical mcg/actuati and 2 Branch on inhaler Puffs in the evening. Miscellaneo 2021-11 Yes [id number] J40: [facility] 11-27 Bro[place] ity of Supply Kit 00:00: - Dispense [place] 00 # 1 Medical Thad Branch Respironic s (okay for alternativ e brand) for nebulizer treatment ipratropium 2021-11 Yes [id number] .5mg Inhale 2.5 [facility] 0.02 % 1-22 mL every 6 ity of nebulizer 00:00: (six) [place] solution 00 hours as Medical needed for Branch Wheezing or Shortness of Breath. albuterol 2021-11 Yes [id number] 2.5mg Inhale 3 [facility] 2.5 mg /3 1-22 mL every 6 ity of mL (0.083 00:00: (six) [place] %) 00 hours as Medical nebulizer needed for Bran ch solution Wheezing or Shortness of Breath. budesonide- 2021-11 Yes [id number] 2{puff} Inhale 2 [facility] formoteroL 1-22 Puffs in ity o f (SYMBICORT) 00:00: the [place] 80-4.5 00 morning Medical mcg/actuati and 2 Branch on inhaler Puffs in the evening. Miscellaneo 2021-11 Yes [id number] J40: [facility] 11-27 Bro[place] ity of Supply Kit 00:00: - Dispense [place] 00 # 1 Medical Thad Branch Respironic s (okay for alternativ e brand) for nebulizer treatment ipratropium 2021-11 Yes [id number] .5mg Inhale 2.5 [facility] 0.02 % 1-22 mL every 6 ity of nebulizer 00:00: (six) [place] solution 00 hours as Medical needed for Branch Wheezing or Shortness of Breath. albuterol 2021-11 Yes [id number] 2.5mg Inhale 3 [facility] 2.5 mg /3 1-22 mL every 6 ity of mL (0.083 00:00: (six) [place] %) 00 hours as Medical nebulizer needed for Bran ch solution Wheezing or Shortness of Breath. budesonide- 2021-11 Yes [id number] 2{puff} Inhale 2 [facility] formoteroL 1-22 Puffs in ity o f (SYMBICORT) 00:00: the [place] 80-4.5 00 morning Medical mcg/actuati and 2 Branch on inhaler Puffs in the evening. Miscellaneo 2021-11 Yes [id number] J40: [facility] 11-27 Bro[place] ity of Supply Kit 00:00: - Dispense [place] 00 # 1 Medical Thad Branch Respironic s (okay for alternativ e brand) for nebulizer treatment ipratropium 2021-11 Yes [id number] .5mg Inhale 2.5 [facility] 0.02 % 1-22 mL every 6 ity of nebulizer 00:00: (six) [place] solution 00 hours as Medical needed for Branch Wheezing or Shortness of Breath. albuterol 2021-11 Yes [id number] 2.5mg Inhale 3 [facility] 2.5 mg /3 1-22 mL every 6 ity of mL (0.083 00:00: (six) [place] %) 00 hours as Medical nebulizer needed for Bran ch solution Wheezing or Shortness of Breath. budesonide- 2021-11 Yes [id number] 2{puff} Inhale 2 [facility] formoteroL 1-22 Puffs in ity o f (SYMBICORT) 00:00: the [place] 80-4.5 00 morning Medical mcg/actuati and 2 Branch on inhaler Puffs in the evening. Miscellaneo 2021-11 Yes [id number] J40: [facility] 11-27 [place] ity of Supply Kit 00:00: - Dis[place] 00 # 1 Medical Thad Branch Respironic s (okay for alternativ e brand) for nebulizer treatment ipratropium 2021-11 Yes [id number] .5mg Inhale 2.5 [facility] 0.02 % 1-22 mL every 6 ity of nebulizer 00:00: (six) [place] solution 00 hours as Medical needed for Branch Wheezing or Shortness of Breath. albuterol 2021-11 Yes [id number] 2.5mg Inhale 3 [facility] 2.5 mg /3 1-22 mL every 6 ity of mL (0.083 00:00: (six) [place] %) 00 hours as Medical nebulizer needed for Bran ch solution Wheezing or Shortness of Breath. budesonide- 2021-11 Yes [id number] 2{puff} Inhale 2 [facility] formoteroL 1-22 Puffs in ity o f (SYMBICORT) 00:00: the [place] 80-4.5 00 morning Medical mcg/actuati and 2 Branch on inhaler Puffs in the evening. Miscellaneo 2021-11 Yes [id number] J40: [facility] 11-27 Bro[place] ity of Supply Kit 00:00: - Dispense [place] 00 # 1 Medical Thad Branch Respironic s (okay for alternativ e brand) for nebulizer treatment ipratropium 2021-11 Yes [id number] .5mg Inhale 2.5 [facility] 0.02 % 1-22 mL every 6 ity of nebulizer 00:00: (six) [place] solution 00 hours as Medical needed for Branch Wheezing or Shortness of Breath. albuterol 2021-11 Yes [id number] 2.5mg Inhale 3 [facility] 2.5 mg /3 1-22 mL every 6 ity of mL (0.083 00:00: (six) [place] %) 00 hours as Medical nebulizer needed for Bran ch solution Wheezing or Shortness of Breath. budesonide- 2021-11 Yes [id number] 2{puff} Inhale 2 [facility] formoteroL 1-22 Puffs in ity o f (SYMBICORT) 00:00: the [place] 80-4.5 00 morning Medical mcg/actuati and 2 Branch on inhaler Puffs in the evening. Miscellaneo 2021-11 Yes [id number] J40: [facility] 11-27 Bro[place] ity of Supply Kit 00:00: - Dispense [place] 00 # 1 Medical Thad Branch Respironic s (okay for alternativ e brand) for nebulizer treatment ipratropium 2021-11 Yes [id number] .5mg Inhale 2.5 [facility] 0.02 % 1-22 mL every 6 ity of nebulizer 00:00: (six) [place] solution 00 hours as Medical needed for Branch Wheezing or Shortness of Breath. albuterol 2021-11 Yes [id number] 2.5mg Inhale 3 [facility] 2.5 mg /3 1-22 mL every 6 ity of mL (0.083 00:00: (six) [place] %) 00 hours as Medical nebulizer needed for Bran ch solution Wheezing or Shortness of Breath. budesonide- 2021-11 Yes [id number] 2{puff} Inhale 2 [facility] formoteroL 1-22 Puffs in ity o f (SYMBICORT) 00:00: the [place] 80-4.5 00 morning Medical mcg/actuati and 2 Branch on inhaler Puffs in the evening. Miscellaneo 2021-11 Yes [id number] J40: [facility] 11-27 Bro[place] ity of Supply Kit 00:00: - Dispense [place] 00 # 1 Medical Thad Branch Respironic s (okay for alternativ e brand) for nebulizer treatment ipratropium 2021-11 Yes [id number] .5mg Inhale 2.5 [facility] 0.02 % 1-22 mL every 6 ity of nebulizer 00:00: (six) [place] solution 00 hours as Medical needed for Branch Wheezing or Shortness of Breath. albuterol 2021-11 Yes [id number] 2.5mg Inhale 3 [facility] 2.5 mg /3 1-22 mL every 6 ity of mL (0.083 00:00: (six) [place] %) 00 hours as Medical nebulizer needed for Bran ch solution Wheezing or Shortness of Breath. budesonide- 2021-11 Yes [id number] 2{puff} Inhale 2 [facility] formoteroL 1-22 Puffs in ity o f (SYMBICORT) 00:00: the [place] 80-4.5 00 morning Medical mcg/actuati and 2 Branch on inhaler Puffs in the evening. Miscellaneo 2021-11 Yes [id number] J40: [facility] 11-27 [place] it[place]xt of Supply Kit 00:00: - Dispense [place] 00 # 1 Medical Thad Branch Respironic s (okay for alternativ e brand) for nebulizer treatment ipratropium 2021-11 Yes [id number] .5mg Inhale 2.5 [facility] 0.02 % 1-22 mL every 6 ity of nebulizer 00:00: (six) [place] solution 00 hours as Medical needed for Branch Wheezing or Shortness of Breath. albuterol 2021-11 Yes [id number] 2.5mg Inhale 3 [facility] 2.5 mg /3 1-22 mL every 6 ity of mL (0.083 00:00: (six) [place] %) 00 hours as Medical nebulizer needed for Bran ch solution Wheezing or Shortness of Breath. budesonide- 2021-11 Yes [id number] 2{puff} Inhale 2 [facility] formoteroL 1-22 Puffs in ity o f (SYMBICORT) 00:00: the [place] 80-4.5 00 morning Medical mcg/actuati and 2 Branch on inhaler Puffs in the evening. Miscellaneo 2021-11 Yes [id number] J40: [facility] 11-27 [place] ity of Supply Kit 00:00: - Dispense [place] 00 # 1 Medical Thad Branch Respironic s (okay for alternativ e brand) for nebulizer treatment ipratropium 2021-11 Yes [id number] .5mg Inhale 2.5 [facility] 0.02 % 1-22 mL every 6 ity of nebulizer 00:00: (six) [place] solution 00 hours as Medical needed for Branch Wheezing or Shortness of Breath. albuterol 2021-11 Yes [id number] 2.5mg Inhale 3 [facility] 2.5 mg /3 1-22 mL every 6 ity of mL (0.083 00:00: (six) [place] %) 00 hours as Medical nebulizer needed for Bran ch solution Wheezing or Shortness of Breath. budesonide- 2021-11 Yes [id number] 2{puff} Inhale 2 [facility] formoteroL 1-22 Puffs in ity o f (SYMBICORT) 00:00: the [place] 80-4.5 00 morning Medical mcg/actuati and 2 Branch on inhaler Puffs in the evening. Miscellaneo 2021-11 Yes [id number] J40: [facility] 1-22 Brochitis ity of Supply Kit 00:00: - Dispense [place] 00 # 1 Medical Thad Branch Respironic s (okay for alternativ e brand) for nebulizer treatment ipratropium 2021-11 Yes [id number] .5mg Inhale 2.5 Univers 0.02 % 1-22 mL every 6 ity of nebulizer 00:00: (six) [place] solution 00 hours as Medical needed for Branch Wheezing or Shortness of Breath. albuterol 2021-11 Yes [id number] 2.5mg Inhale 3 [facility] 2.5 mg /3 1-22 mL every 6 ity of mL (0.083 00:00: (six) [place] %) 00 hours as Medical nebulizer needed for Bran ch solution Wheezing or Shortness of Breath. budesonide- 2021-11 Yes [id number] 2{puff} Inhale 2 [facility] formoteroL 1-22 Puffs in ity o f (SYMBICORT) 00:00: the [place] 80-4.5 00 morning Medical mcg/actuati and 2 Branch on inhaler Puffs in the evening. Miscellaneo 2021-11 Yes [id number] J40: [facility] 11-27 Bro[place] ity of Supply Kit 00:00: - Dispense [place] 00 # 1 Medical Thad Branch Respironic s (okay for alternativ e brand) for nebulizer treatment ipratropium 2021-11 Yes [id number] .5mg Inhale 2.5 Univers 0.02 % 1-22 mL every 6 ity of nebulizer 00:00: (six) [place] solution 00 hours as Medical needed for Branch Wheezing or Shortness of Breath. albuterol 2021-11 Yes [id number] 2.5mg Inhale 3 Univers 2.5 mg /3 1-22 mL every 6 ity of mL (0.083 00:00: (six) [place] %) 00 hours as Medical nebulizer needed for Bran ch solution Wheezing or Shortness of Breath. budesonide- 2021-11 Yes [id number] 2{puff} Inhale 2 [facility] formoteroL 1-22 Puffs in ity o f (SYMBICORT) 00:00: the [place] 80-4.5 00 morning Medical mcg/actuati and 2 Branch on inhaler Puffs in the evening. Miscellaneo 2021-11 Yes [id number] J40: [facility] 11-[facility] ity of Supply Kit 00:00: - Dispense [place] 00 # 1 Medical Thad Branch Respironic s (okay for alternativ e brand) for nebulizer treatment ipratropium 2021-11 Yes [id number] .5mg Inhale 2.5 Univers 0.02 % 1-22 mL every 6 ity of nebulizer 00:00: (six) [place] solution 00 hours as Medical needed for Branch Wheezing or Shortness of Breath. albuterol 2021-11 Yes [id number] 2.5mg Inhale 3 Univers 2.5 mg /3 1-22 mL every 6 ity of mL (0.083 00:00: (six) [place] %) 00 hours as Medical nebulizer needed for Bran ch solution Wheezing or Shortness of Breath. budesonide- 2021-11 Yes [id number] 2{puff} Inhale 2 [facility] formoteroL 1-22 Puffs in ity o f (SYMBICORT) 00:00: the [place] 80-4.5 00 morning Medical mcg/actuati and 2 Branch on inhaler Puffs in the evening. Miscellaneo 2021-11 Yes [id number] J40: [facility] 11-27 Bro[place] ity of Supply Kit 00:00: - Dispense [place] 00 # 1 Medical Thad Branch Respironic s (okay for alternativ e brand) for nebulizer treatment ipratropium 2021-11 Yes [id number] .5mg Inhale 2.5 Univers 0.02 % 1-22 mL every 6 ity of nebulizer 00:00: (six) [place] solution 00 hours as Medical needed for Branch Wheezing or Shortness of Breath. albuterol 2021-11 Yes [id number] 2.5mg Inhale 3 Univers 2.5 mg /3 1-22 mL every 6 ity of mL (0.083 00:00: (six) [place] %) 00 hours as Medical nebulizer needed for Bran ch solution Wheezing or Shortness of Breath. budesonide- 2021-11 Yes [id number] 2{puff} Inhale 2 [facility] formoteroL 1-22 Puffs in ity o f (SYMBICORT) 00:00: the [place] 80-4.5 00 morning Medical mcg/actuati and 2 Branch on inhaler Puffs in the evening. Miscellaneo 2021-11 Yes [id number] J40: [facility] 11-27 [place] ity of Supply Kit 00:00: - Dispense [place] 00 # 1 Medical Thad Branch Respironic s (okay for alternativ e brand) for nebulizer treatment ipratropium 2021-11 Yes [id number] .5mg Inhale 2.5 Univers 0.02 % 1-22 mL every 6 ity of nebulizer 00:00: (six) [place] solution 00 hours as Medical needed for Branch Wheezing or Shortness of Breath. albuterol 2021-11 Yes [id number] 2.5mg Inhale 3 Univers 2.5 mg /3 1-22 mL every 6 ity of mL (0.083 00:00: (six) [place] %) 00 hours as Medical nebulizer needed for Bran ch solution Wheezing or Shortness of Breath. budesonide- 2021-11 Yes [id number] 2{puff} Inhale 2 [facility] formoteroL 1-22 Puffs in ity o f (SYMBICORT) 00:00: the [place] 80-4.5 00 morning Medical mcg/actuati and 2 Branch on inhaler Puffs in the evening. Miscellaneo 2021-11 Yes [id number] J40: [facility] 11-27 [place] ity of Supply Kit 00:00: - Dispense [place] 00 # 1 Medical Thad Branch Respironic s (okay for alternativ e brand) for nebulizer treatment ipratropium 2021-11 Yes [id number] .5mg Inhale 2.5 Univers 0.02 % 1-22 mL every 6 ity of nebulizer 00:00: (six) [place] solution 00 hours as Medical needed for Branch Wheezing or Shortness of Breath. albuterol 2021-11 Yes [id number] 2.5mg Inhale 3 Univers 2.5 mg /3 1-22 mL every 6 ity of mL (0.083 00:00: (six) [place] %) 00 hours as Medical nebulizer needed for Bran ch solution Wheezing or Shortness of Breath. budesonide- 2021-11 Yes [id number] 2{puff} Inhale 2 [facility] formoteroL 1-22 Puffs in ity o f (SYMBICORT) 00:00: the [place] 80-4.5 00 morning Medical mcg/actuati and 2 Branch on inhaler Puffs in the evening. Miscellaneo 2021-11 Yes [id number] J40: [facility] 11-27 Bro[place] ity of Supply Kit 00:00: - Dispense [place] 00 # 1 Medical Thad Branch Respironic s (okay for alternativ e brand) for nebulizer treatment ipratropium 2021-11 Yes [id number] .5mg Inhale 2.5 Univers 0.02 % 1-22 mL every 6 ity of nebulizer 00:00: (six) [place] solution 00 hours as Medical needed for Branch Wheezing or Shortness of Breath. albuterol 2021-11 Yes [id number] 2.5mg Inhale 3 Univers 2.5 mg /3 1-22 mL every 6 ity of mL (0.083 00:00: (six) [place] %) 00 hours as Medical nebulizer needed for Bran ch solution Wheezing or Shortness of Breath. budesonide- 2021-11 Yes [id number] 2{puff} Inhale 2 [facility] formoteroL 1-22 Puffs in ity o f (SYMBICORT) 00:00: the [place] 80-4.5 00 morning Medical mcg/actuati and 2 Branch on inhaler Puffs in the evening. Miscellaneo 2021-11 Yes [id number] J40: [facility] 11-27 [place] ity of Supply Kit 00:00: - Dispense [place] 00 # 1 Medical Thad Branch Respironic s (okay for alternativ e brand) for nebulizer treatment ipratropium 2021-11 Yes [id number] .5mg Inhale 2.5 Univers 0.02 % 1-22 mL every 6 ity of nebulizer 00:00: (six) [place] solution 00 hours as Medical needed for Branch Wheezing or Shortness of Breath. albuterol 2021-11 Yes [id number] 2.5mg Inhale 3 Univers 2.5 mg /3 1-22 mL every 6 ity of mL (0.083 00:00: (six) [place] %) 00 hours as Medical nebulizer needed for Bran ch solution Wheezing or Shortness of Breath. budesonide- 2021-11 Yes [id number] 2{puff} Inhale 2 [facility] formoteroL 1-22 Puffs in ity o f (SYMBICORT) 00:00: the [place] 80-4.5 00 morning Medical mcg/actuati and 2 Branch on inhaler Puffs in the evening. Miscellaneo 2021-11 Yes [id number] J40: [facility] 11-27 [place] ity of Supply Kit 00:00: - Dispense [place] 00 # 1 Medical Thad Branch Respironic s (okay for alternativ e brand) for nebulizer treatment ipratropium 2021-11 Yes [id number] .5mg Inhale 2.5 Univers 0.02 % 1-22 mL every 6 ity of nebulizer 00:00: (six) [place] solution 00 hours as Medical needed for Branch Wheezing or Shortness of Breath. albuterol 2021-11 Yes [id number] 2.5mg Inhale 3 Univers 2.5 mg /3 1-22 mL every 6 ity of mL (0.083 00:00: (six) [place] %) 00 hours as Medical nebulizer needed for Bran ch solution Wheezing or Shortness of Breath. budesonide- 2021-11 Yes [id number] 2{puff} Inhale 2 [facility] formoteroL 1-22 Puffs in ity o f (SYMBICORT) 00:00: the [place] 80-4.5 00 morning Medical mcg/actuati and 2 Branch on inhaler Puffs in the evening. Miscellaneo 2021-11 Yes [id number] J40: [facility] 11-[facility] ity of Supply Kit 00:00: - Dispense [place] 00 # 1 Medical Thad Branch Respironic s (okay for alternativ e brand) for nebulizer treatment ipratropium 2021-11 Yes [id number] .5mg Inhale 2.5 Univers 0.02 % 1-22 mL every 6 ity of nebulizer 00:00: (six) [place] solution 00 hours as Medical needed for Branch Wheezing or Shortness of Breath. albuterol 2021-11 Yes [id number] 2.5mg Inhale 3 Univers 2.5 mg /3 1-22 mL every 6 ity of mL (0.083 00:00: (six) [place] %) 00 hours as Medical nebulizer needed for Bran ch solution Wheezing or Shortness of Breath. budesonide- 2021-11 Yes [id number] 2{puff} Inhale 2 [facility] formoteroL 1-22 Puffs in ity o f (SYMBICORT) 00:00: the [place] 80-4.5 00 morning Medical mcg/actuati and 2 Branch on inhaler Puffs in the evening. Miscellaneo 2021-11 Yes [id number] J40: [facility] 11-27 [facility] ity of Supply Kit 00:00: - Dispense [place] 00 # 1 Medical Thad Branch Respironic s (okay for alternativ e brand) for nebulizer treatment ipratropium 2021-11 Yes [id number] .5mg Inhale 2.5 Univers 0.02 % 1-22 mL every 6 ity of nebulizer 00:00: (six) [place] solution 00 hours as Medical needed for Branch Wheezing or Shortness of Breath. albuterol 2021-11 Yes [id number] 2.5mg Inhale 3 Univers 2.5 mg /3 1-22 mL every 6 ity of mL (0.083 00:00: (six) [place] %) 00 hours as Medical nebulizer needed for Bran ch solution Wheezing or Shortness of Breath. budesonide- 2021-11 Yes [id number] 2{puff} Inhale 2 [facility] formoteroL 1-22 Puffs in ity o f (SYMBICORT) 00:00: the [place] 80-4.5 00 morning Medical mcg/actuati and 2 Branch on inhaler Puffs in the evening. Miscellaneo 2021-11 Yes [id number] J40: [facility] 11-27 [place] ity of Supply Kit 00:00: - Dispense [place] 00 # 1 Medical Thad Branch Respironic s (okay for alternativ e brand) for nebulizer treatment ipratropium 2021-11 Yes [id number] .5mg Inhale 2.5 Univers 0.02 % 1-22 mL every 6 ity of nebulizer 00:00: (six) [place] solution 00 hours as Medical needed for Branch Wheezing or Shortness of Breath. albuterol 2021-11 Yes [id number] 2.5mg Inhale 3 Univers 2.5 mg /3 1-22 mL every 6 ity of mL (0.083 00:00: (six) [place] %) 00 hours as Medical nebulizer needed for Bran ch solution Wheezing or Shortness of Breath. budesonide- 2021-11 Yes [id number] 2{puff} Inhale 2 [facility] formoteroL 1-22 Puffs in ity o f (SYMBICORT) 00:00: the [place] 80-4.5 00 morning Medical mcg/actuati and 2 Branch on inhaler Puffs in the evening. Miscellaneo 2021-11 Yes [id number] J40: [facility] 11-27 [place] ity of Supply Kit 00:00: - Dispense [place] 00 # 1 Medical Thad Branch Respironic s (okay for alternativ e brand) for nebulizer treatment ipratropium 2021-11 Yes [id number] .5mg Inhale 2.5 Univers 0.02 % 1-22 mL every 6 ity of nebulizer 00:00: (six) [place] solution 00 hours as Medical needed for Branch Wheezing or Shortness of Breath. albuterol 2021-11 Yes [id number] 2.5mg Inhale 3 Univers 2.5 mg /3 1-22 mL every 6 ity of mL (0.083 00:00: (six) [place] %) 00 hours as Medical nebulizer needed for Bran ch solution Wheezing or Shortness of Breath. budesonide- 2021-11 Yes [id number] 2{puff} Inhale 2 [facility] formoteroL 1-22 Puffs in ity o f (SYMBICORT) 00:00: the [place] 80-4.5 00 morning Medical mcg/actuati and 2 Branch on inhaler Puffs in the evening. Miscellaneo 2021-11 Yes [id number] J40: [facility] 11-27 [place] ity of Supply Kit 00:00: - [place] 00 # 1 Medical Thad Branch Respironic s (okay for alternativ e brand) for nebulizer treatment ipratropium 2021-11 Yes [id number] .5mg Inhale 2.5 Univers 0.02 % 1-22 mL every 6 ity of nebulizer 00:00: (six) [place] solution 00 hours as Medical needed for Branch Wheezing or Shortness of Breath. albuterol 2021-11 Yes [id number] 2.5mg Inhale 3 Univers 2.5 mg /3 1-22 mL every 6 ity of mL (0.083 00:00: (six) [place] %) 00 hours as Medical nebulizer needed for Bran ch solution Wheezing or Shortness of Breath. budesonide- 2021-11 Yes [id number] 2{puff} Inhale 2 [facility] formoteroL 1-22 Puffs in ity o f (SYMBICORT) 00:00: the [place] 80-4.5 00 morning Medical mcg/actuati and 2 Branch on inhaler Puffs in the evening. Miscellaneo 2021-11 Yes [id number] J40: [facility] 11-27 [place] ity of Supply Kit 00:00: - [place] 00 # 1 Medical Thad Branch Respironic s (okay for alternativ e brand) for nebulizer treatment amoxicillin 2021-11 Yes [id number] 1{tbl} Take 1 Univers -clavulanat 1-22 tablet by ity of e 00:00: mouth in [place] (AUGMENTIN) 00 the Medical 875-125 mg morning Branch per tablet and 1 tablet in the evening. albuterol 2021-11 Yes [id number] 2{puff} Inhale 2 Univers 90 1-22 Puffs ity of mcg/actuati 00:00: every 6 [place] as on inhaler 00 (six) Medical hours as Branch needed for Wheezing or Shortness of Breath. ipratropium 2021-11 Yes [id number] .5mg Inhale 2.5 Univers 0.02 % 1-22 mL every 6 ity of nebulizer 00:00: (six) [place] solution 00 hours as Medical needed for Branch Wheezing or Shortness of Breath. albuterol 2021-11 Yes [id number] 2.5mg Inhale 3 Univers 2.5 mg /3 1-22 mL every 6 ity of mL (0.083 00:00: (six) [place] %) 00 hours as Medical nebulizer needed for Bran ch solution Wheezing or Shortness of Breath. budesonide- 2021-11 Yes [id number] 2{puff} Inhale 2 [facility] formoteroL 1-22 Puffs in ity o f (SYMBICORT) 00:00: the [place] 80-4.5 00 morning Medical mcg/actuati and 2 Branch on inhaler Puffs in the evening. Miscellaneo 2021-11 Yes [id number] J40: [facility] 1-22 [place] ity of Supply Kit 00:00: - Dispense [place] 00 # 1 Medical Thad Branch Respironic s (okay for alternativ e brand) for nebulizer treatment amoxicillin 2021-11 Yes [id number] 1{tbl} Take 1 Univers -clavulanat 1-22 tablet by ity of e 00:00: mouth in [place] (AUGMENTIN) 00 the Medical 875-125 mg morning Branch per tablet and 1 tablet in the evening. albuterol 2021-11 Yes [id number] 2{puff} Inhale 2 [facility] 90 1-22 Puffs ity of mcg/actuati 00:00: every 6 [place] as on inhaler 00 (six) Medical hours as Branch needed for Wheezing or Shortness of Breath. ipratropium 2021-11 Yes [id number] .5mg Inhale 2.5 [facility] 0.02 % 1-22 mL every 6 ity of nebulizer 00:00: (six) [place] solution 00 hours as Medical needed for Branch Wheezing or Shortness of Breath. albuterol 2021-11 Yes [id number] 2.5mg Inhale 3 [facility] 2.5 mg /3 1-22 mL every 6 ity of mL (0.083 00:00: (six) [place] %) 00 hours as Medical nebulizer needed for Bran ch solution Wheezing or Shortness of Breath. budesonide- 2021-11 Yes [id number] 2{puff} Inhale 2 [facility] formoteroL 1-22 Puffs in ity o f (SYMBICORT) 00:00: the [place] 80-4.5 00 morning Medical mcg/actuati and 2 Branch on inhaler Puffs in the evening. Miscellaneo 2021-11 Yes [id number] J40: [facility] 1-22 Brochitis ity of Supply Kit 00:00: - Dispense [place] 00 # 1 Medical Thad Branch Respironic s (okay for alternativ e brand) for nebulizer treatment amoxicillin 2021-11 Yes [id number] 1{tbl} Take 1 [facility] -clavulanat 1-22 tablet by ity of e 00:00: mouth in [place] (AUGMENTIN) 00 the Medical 875-125 mg morning Branch per tablet and 1 tablet in the evening. albuterol 2021-11 Yes [id number] 2{puff} Inhale 2 [facility] 90 1-22 Puffs ity of mcg/actuati 00:00: every 6 [place] as on inhaler 00 (six) Medical hours as Branch needed for Wheezing or Shortness of Breath. ipratropium 2021-11 Yes [id number] .5mg Inhale 2.5 [facility] 0.02 % 1-22 mL every 6 ity of nebulizer 00:00: (six) [place] solution 00 hours as Medical needed for Branch Wheezing or Shortness of Breath. albuterol 2021-11 Yes [id number] 2.5mg Inhale 3 [facility] 2.5 mg /3 1-22 mL every 6 ity of mL (0.083 00:00: (six) [place] %) 00 hours as Medical nebulizer needed for Bran ch solution Wheezing or Shortness of Breath. budesonide- 2021-11 Yes [id number] 2{puff} Inhale 2 [facility] formoteroL 1-22 Puffs in ity o f (SYMBICORT) 00:00: the [place] 80-4.5 00 morning Medical mcg/actuati and 2 Branch on inhaler Puffs in the evening. Miscellaneo 2021-11 Yes [id number] J40: [facility] -22 Brochitis ity of Supply Kit 00:00: - Dispense [place] 00 # 1 Medical Thad Branch Respironic s (okay for alternativ e brand) for nebulizer treatment amoxicillin 2021-11 Yes [id number] 1{tbl} Take 1 [facility] -clavulanat 1-22 tablet by ity of e 00:00: mouth in [place] (AUGMENTIN) 00 the Medical 875-125 mg morning Branch per tablet and 1 tablet in the evening. albuterol 2021-11 Yes [id number] 2{puff} Inhale 2 [facility] 90 1-22 Puffs ity of mcg/actuati 00:00: every 6 [place] as on inhaler 00 (six) Medical hours as Branch needed for Wheezing or Shortness of Breath. ipratropium 2021-11 Yes [id number] .5mg Inhale 2.5 [facility] 0.02 % 1-22 mL every 6 ity of nebulizer 00:00: (six) [place] solution 00 hours as Medical needed for Branch Wheezing or Shortness of Breath. albuterol 2021-11 Yes [id number] 2.5mg Inhale 3 [facility] 2.5 mg /3 1-22 mL every 6 ity of mL (0.083 00:00: (six) [place] %) 00 hours as Medical nebulizer needed for Bran ch solution Wheezing or Shortness of Breath. budesonide- 2021-11 Yes [id number] 2{puff} Inhale 2 [facility] formoteroL 1-22 Puffs in ity o f (SYMBICORT) 00:00: the [place] 80-4.5 00 morning Medical mcg/actuati and 2 Branch on inhaler Puffs in the evening. Miscellaneo 2021-11 Yes [id number] J40: [facility] 1-22 Brochitis ity of Supply Kit 00:00: - Dispense [place] 00 # 1 Medical Thad Branch Respironic s (okay for alternativ e brand) for nebulizer treatment amoxicillin 2021-11 Yes [id number] 1{tbl} Take 1 [facility] -clavulanat 1-22 tablet by ity of e 00:00: mouth in [place] (AUGMENTIN) 00 the Medical 875-125 mg morning Branch per tablet and 1 tablet in the evening. albuterol 2021-11 Yes [id number] 2{puff} Inhale 2 [facility] 90 1-22 Puffs ity of mcg/actuati 00:00: every 6 [place] as on inhaler 00 (six) Medical hours as Branch needed for Wheezing or Shortness of Breath. ipratropium 2021-11 Yes [id number] .5mg Inhale 2.5 [facility] 0.02 % 1-22 mL every 6 ity of nebulizer 00:00: (six) [place] solution 00 hours as Medical needed for Branch Wheezing or Shortness of Breath. albuterol 2021-11 Yes [id number] 2.5mg Inhale 3 [facility] 2.5 mg /3 1-22 mL every 6 ity of mL (0.083 00:00: (six) [place] %) 00 hours as Medical nebulizer needed for Bran ch solution Wheezing or Shortness of Breath. budesonide- 2021-11 Yes [id number] 2{puff} Inhale 2 [facility] formoteroL 1-22 Puffs in ity o f (SYMBICORT) 00:00: the [place] 80-4.5 00 morning Medical mcg/actuati and 2 Branch on inhaler Puffs in the evening. Miscellaneo 2021-11 Yes [id number] J40: [facility] 1-22 Brochitis ity of Supply Kit 00:00: - Dispense [place] 00 # 1 Medical Thad Branch Respironic s (okay for alternativ e brand) for nebulizer treatment amoxicillin 2021-11 Yes [id number] 1{tbl} Take 1 [facility] -clavulanat 1-22 tablet by ity of e 00:00: mouth in [place] (AUGMENTIN) 00 the Medical 875-125 mg morning Branch per tablet and 1 tablet in the evening. albuterol 2021-11 Yes [id number] 2{puff} Inhale 2 [facility] 90 1-22 Puffs ity of mcg/actuati 00:00: every 6 [place] as on inhaler 00 (six) Medical hours as Branch needed for Wheezing or Shortness of Breath. ipratropium 2021-11 Yes [id number] .5mg Inhale 2.5 [facility] 0.02 % 1-22 mL every 6 ity of nebulizer 00:00: (six) [place] solution 00 hours as Medical needed for Branch Wheezing or Shortness of Breath. albuterol 2021-11 Yes [id number] 2.5mg Inhale 3 [facility] 2.5 mg /3 1-22 mL every 6 ity of mL (0.083 00:00: (six) [place] %) 00 hours as Medical nebulizer needed for Bran ch solution Wheezing or Shortness of Breath. budesonide- 2021-11 Yes [id number] 2{puff} Inhale 2 [facility] formoteroL 1-22 Puffs in ity o f (SYMBICORT) 00:00: the [place] 80-4.5 00 morning Medical mcg/actuati and 2 Branch on inhaler Puffs in the evening. Miscellaneo 2021-11 Yes [id number] J40: [facility] 1-22 Brochitis ity of Supply Kit 00:00: - Dispense [place] 00 # 1 Medical Thad Branch Respironic s (okay for alternativ e brand) for nebulizer treatment amoxicillin 2021-11 Yes [id number] 1{tbl} Take 1 [facility] -clavulanat 1-22 tablet by ity of e 00:00: mouth in [place] (AUGMENTIN) 00 the Medical 875-125 mg morning Branch per tablet and 1 tablet in the evening. albuterol 2021-11 Yes [id number] 2{puff} Inhale 2 [facility] 90 1-22 Puffs ity of mcg/actuati 00:00: every 6 [place] as on inhaler 00 (six) Medical hours as Branch needed for Wheezing or Shortness of Breath. ipratropium 2021-11 Yes [id number] .5mg Inhale 2.5 [facility] 0.02 % 1-22 mL every 6 ity of nebulizer 00:00: (six) [place] solution 00 hours as Medical needed for Branch Wheezing or Shortness of Breath. albuterol 2021-11 Yes [id number] 2.5mg Inhale 3 [facility] 2.5 mg /3 1-22 mL every 6 ity of mL (0.083 00:00: (six) [place] %) 00 hours as Medical nebulizer needed for Bran ch solution Wheezing or Shortness of Breath. budesonide- 2021-11 Yes [id number] 2{puff} Inhale 2 [facility] formoteroL 1-22 Puffs in ity o f (SYMBICORT) 00:00: the [place] 80-4.5 00 morning Medical mcg/actuati and 2 Branch on inhaler Puffs in the evening. Miscellaneo 2021-11 Yes [id number] J40: [facility] Medical 11-27 Brochitis ity of Supply Kit 00:00: - Dispense [place] 00 # 1 Medical Thad Branch Respironic s (okay for alternativ e brand) for nebulizer treatment albuterol 2021-11- No [id number] 2{puff} Inhale 2 [facility] 90 1-22 03-21 Puffs ity of mcg/actuati 00:00: 00:00 every 6 [place] on inhaler 00 :00 (six) Medical hours as Branch needed for Wheezing or Shortness of Breath. albuterol 2021-11- No [id number] 2{puff} Inhale 2 [facility] 90 -22 03-21 Puffs ity of mcg/actuati 00:00: 00:00 every 6 [place] on inhaler 00 :00 (six) Medical hours as Branch needed for Wheezing or Shortness of Breath. amoxicillin 2021-11- No [id number] 1{tbl} Take 1 [facility] -clavulanat 11-27-06 tablet by it y of e 00:00: 00:00 mouth in [place] (AUGMENTIN) 00 :00 the Medical 875-125 mg morning Branch per tablet and 1 tablet in the evening. amoxicillin 2021-11- No [id number] 1{tbl} Take 1 [facility] -clavulanat 11-27-06 tablet by it y of e 00:00: 00:00 mouth in [place] (AUGMENTIN) 00 :00 the Medical 875-125 mg morning Branch per tablet and 1 tablet in the evening. amoxicillin 2021-11- No [id number] 1{tbl} Take 1 [facility] -clavulanat 11-27-06 tablet by it y of e 00:00: 00:00 mouth in [place] (AUGMENTIN) 00 :00 the Medical 875-125 mg [...] 5 mg SC qWeek Diclofenac 2021-11 Yes [id number] Apply 4g [facility] Sodium 0-20 to ity of (VOLTAREN) 00:00: affected [place] as 1 % gel 00 area QID Medical Branch Lidocaine 5 2021-11 Yes [id number] Apply to Univers % cream 0-20 area(s) 2 ity of 00:00: (two) [place] 00 times Medical daily as Branch needed for Pain (scale 4-6). Apply 5g to affected areas BID PRN Insulin 2021-11 Yes [id number] INJECT 53 U nivers Glargine 0-20 UNITS [...] 5 mg SC qWeek Diclofenac 2021-11 Yes [id number] Apply 4g [facility] Sodium 0-20 to ity of (VOLTAREN) 00:00: affected [place] 1 % gel 00 area QID Medical Branch Lidocaine 5 2021-11 Yes [id number] Apply to Univers % cream 0-20 area(s) 2 ity of 00:00: (two) [place] 00 times Medical daily as Branch needed for Pain (scale 4-6). Apply 5g to affected areas BID PRN Insulin 2021-11 Yes [id number] INJECT 53 U nivers Glargine 0-20 UNITS [...] 5 mg SC qWeek Diclofenac 2021-11 Yes [id number] Apply 4g [facility] Sodium 0-20 to ity of (VOLTAREN) 00:00: affected [place] 1 % gel 00 area QID Medical Branch Lidocaine 5 2021-11 Yes [id number] Apply to Univers % cream 0-20 area(s) 2 ity of 00:00: (two) [place] 00 times Medical daily as Branch needed for Pain (scale 4-6). Apply 5g to affected areas BID PRN Insulin 2021-11 Yes [id number] INJECT 53 U nivers Glargine 0-20 UNITS [...] 5 mg SC qWeek Diclofenac 2021-11 Yes [id number] Apply 4g [facility] Sodium 0-20 to ity of (VOLTAREN) 00:00: affected [place] 1 % gel 00 area QID Medical Branch Lidocaine 5 2021-11 Yes [id number] Apply to Univers % cream 0-20 area(s) 2 ity of 00:00: (two) [place] 00 times Medical daily as Branch needed for Pain (scale 4-6). Apply 5g to affected areas BID PRN Insulin 2021-11 Yes [id number] INJECT 53 U nivers Glargine 0-20 UNITS [...] 5 mg SC qWeek Diclofenac 2021-11 Yes [id number] Apply 4g [facility] Sodium 0-20 to ity of (VOLTAREN) 00:00: affected [place] as 1 % gel 00 area QID Medical Branch Lidocaine 5 2021-11 Yes [id number] Apply to Univers % cream 0-20 area(s) 2 ity of 00:00: (two) [place] 00 times Medical daily as Branch needed for Pain (scale 4-6). Apply 5g to affected areas BID PRN Insulin 2021-11 Yes [id number] INJECT 53 U nivers Glargine 0-20 UNITS [...] 5 mg SC qWeek Diclofenac 2021-11 Yes [id number] Apply 4g [facility] Sodium 0-20 to ity of (VOLTAREN) 00:00: affected [place] as 1 % gel 00 area QID Medical Branch Lidocaine 5 2021-11 Yes [id number] Apply to Univers % cream 0-20 area(s) 2 ity of 00:00: (two) [place] 00 times Medical daily as Branch needed for Pain (scale 4-6). Apply 5g to affected areas BID PRN Insulin 2021-11 Yes [id number] INJECT 53 U nivers Glargine 0-20 UNITS [...] 5 mg SC qWeek Diclofenac 2021-11 Yes [id number] Apply 4g [facility] Sodium 0-20 to ity of (VOLTAREN) 00:00: affected [place] as 1 % gel 00 area QID Medical Branch Lidocaine 5 2021-11 Yes [id number] Apply to Univers % cream 0-20 area(s) 2 ity of 00:00: (two) [place] 00 times Medical daily as Branch needed for Pain (scale 4-6). Apply 5g to affected areas BID PRN Insulin 2021-11 Yes [id number] INJECT 53 U nivers Glargine 0-20 UNITS [...] 5 mg SC qWeek Diclofenac 2021-11 Yes [id number] Apply 4g [facility] Sodium 0-20 to ity of (VOLTAREN) 00:00: affected [place] as 1 % gel 00 area QID Medical Branch Lidocaine 5 2021-11 Yes [id number] Apply to Univers % cream 0-20 area(s) 2 ity of 00:00: (two) [place] 00 times Medical daily as Branch needed for Pain (scale 4-6). Apply 5g to affected areas BID PRN Insulin 2021-11 Yes [id number] INJECT 53 U nivers Glargine 0-20 UNITS [...] 5 mg SC qWeek Diclofenac 2021-11 Yes [id number] Apply 4g [facility] Sodium 0-20 to ity of (VOLTAREN) 00:00: affected [place] as 1 % gel 00 area QID Medical Branch Lidocaine 5 2021-11 Yes [id number] Apply to Univers % cream 0-20 area(s) 2 ity of 00:00: (two) [place] 00 times Medical daily as Branch needed for Pain (scale 4-6). Apply 5g to affected areas BID PRN Insulin 2021-11 Yes [id number] INJECT 53 U nivers Glargine 0-20 UNITS [...] 5 mg SC qWeek Diclofenac 2021-11 Yes [id number] Apply 4g [facility] Sodium 0-20 to ity of (VOLTAREN) 00:00: affected [place] as 1 % gel 00 area QID Medical Branch Lidocaine 5 2021-11 Yes [id number] Apply to Univers % cream 0-20 area(s) 2 ity of 00:00: (two) [place] 00 times Medical daily as Branch needed for Pain (scale 4-6). Apply 5g to affected areas BID PRN Insulin 2021-11 Yes [id number] INJECT 53 U nivers Glargine 0-20 UNITS [...] 5 mg SC qWeek Diclofenac 2021-11 Yes [id number] Apply 4g [facility] Sodium 0-20 to ity of (VOLTAREN) 00:00: affected [place] as 1 % gel 00 area QID Medical Branch Lidocaine 5 2021-11 Yes [id number] Apply to Univers % cream 0-20 area(s) 2 ity of 00:00: (two) [place] 00 times Medical daily as Branch needed for Pain (scale 4-6). Apply 5g to affected areas BID PRN Insulin 2021-11 Yes [id number] INJECT 53 U nivers Glargine 0-20 UNITS [...] 5 mg SC qWeek Diclofenac 2021-11 Yes [id number] Apply 4g [facility] Sodium 0-20 to ity of (VOLTAREN) 00:00: affected [place] as 1 % gel 00 area QID Medical Branch Lidocaine 5 2021-11 Yes [id number] Apply to Univers % cream 0-20 area(s) 2 ity of 00:00: (two) [place] 00 times Medical daily as Branch needed for Pain (scale 4-6). Apply 5g to affected areas BID PRN Insulin 2021-11 Yes [id number] INJECT 53 U nivers Glargine 0-20 UNITS [...] 5 mg SC qWeek Diclofenac 2021-11 Yes [id number] Apply 4g [facility] Sodium 0-20 to ity of (VOLTAREN) 00:00: affected [place] as 1 % gel 00 area QID Medical Branch Lidocaine 5 2021-11 Yes [id number] Apply to Univers % cream 0-20 area(s) 2 ity of 00:00: (two) [place] 00 times Medical daily as Branch needed for Pain (scale 4-6). Apply 5g to affected areas BID PRN Insulin 2021-11 Yes [id number] INJECT 53 U nivers Glargine 0-20 UNITS [...] 5 mg SC qWeek Diclofenac 2021-11 Yes [id number] Apply 4g [facility] Sodium 0-20 to ity of (VOLTAREN) 00:00: affected [place] as 1 % gel 00 area QID Medical Branch Lidocaine 5 2021-11 Yes [id number] Apply to Univers % cream 0-20 area(s) 2 ity of 00:00: (two) [place] 00 times Medical daily as Branch needed for Pain (scale 4-6). Apply 5g to affected areas BID PRN Insulin 2021-11 Yes [id number] INJECT 53 U nivers Glargine 0-20 UNITS [...] 5 mg SC qWeek Diclofenac 2021-11 Yes [id number] Apply 4g [facility] Sodium 0-20 to ity of (VOLTAREN) 00:00: affected [place] as 1 % gel 00 area QID Medical Branch Lidocaine 5 2021-11 Yes [id number] Apply to Univers % cream 0-20 area(s) 2 ity of 00:00: (two) [place] 00 times Medical daily as Branch needed for Pain (scale 4-6). Apply 5g to affected areas BID PRN Insulin 2021-11 Yes [id number] INJECT 53 U nivers Glargine 0-20 UNITS [...] 5 mg SC qWeek Diclofenac 2021-11 Yes [id number] Apply 4g [facility] Sodium 0-20 to ity of (VOLTAREN) 00:00: affected [place] as 1 % gel 00 area QID Medical Branch Lidocaine 5 2021-11 Yes [id number] Apply to Univers % cream 0-20 area(s) [...] 5 mg SC qWeek Diclofenac 2021-11 Yes [id number] Apply 4g [facility] Sodium 0-20 to ity of (VOLTAREN) 00:00: affected [place] as 1 % gel 00 area QID Medical Branch Lidocaine 5 2021-11 Yes [id number] Apply to Univers % cream 0-20 area(s) [...] 5 mg SC qWeek Diclofenac 2021-11 Yes [id number] Apply 4g [facility] Sodium 0-20 to ity of (VOLTAREN) 00:00: affected [place] as 1 % gel 00 area QID Medical Branch Lidocaine 5 2021-11 Yes [id number] Apply to Univers % cream 0-20 area(s) [...] 5 mg SC qWeek Diclofenac 2021-11 Yes [id number] Apply 4g [facility] Sodium 0-20 to ity of (VOLTAREN) 00:00: affected [place] as 1 % gel 00 area QID Medical Branch Lidocaine 5 2021-11 Yes [id number] Apply to Univers % cream 0-20 area(s) [...] 5 mg SC qWeek Diclofenac 2021-11 Yes [id number] Apply 4g [facility] Sodium 0-20 to ity of (VOLTAREN) 00:00: affected [place] 1 % gel 00 area QID Medical Branch Lidocaine 5 2021-11 Yes [id number] Apply to Univers % cream 0-20 area(s) [...] 5 mg SC qWeek Diclofenac 2021-11 Yes [id number] Apply 4g [facility] Sodium 0-20 to ity of (VOLTAREN) 00:00: affected [place] as 1 % gel 00 area QID Medical Branch Lidocaine 5 2021-11 Yes [id number] Apply to Univers % cream 0-20 area(s) [...] 5 mg SC qWeek Diclofenac 2021-11 Yes [id number] Apply 4g [facility] Sodium 0-20 to ity of (VOLTAREN) 00:00: affected [place] as 1 % gel 00 area QID Medical Branch Lidocaine 5 2021-11 Yes [id number] Apply to [facility] % cream 0-20 area(s) 2 ity of 00:00: (two) [place] 00 times Medical daily as Branch needed [...] 5 mg SC qWeek Diclofenac 2021-11 Yes [id number] Apply 4g [facility] Sodium 0-20 to ity of (VOLTAREN) 00:00: affected [place] as 1 % gel 00 area QID Medical Branch Lidocaine 5 2021-11 Yes [id number] Apply to Univers % cream 0-20 area(s) [...] 5 mg SC qWeek Diclofenac 2021-11 Yes [id number] Apply 4g [facility] Sodium 0-20 to ity of (VOLTAREN) 00:00: affected [place] 1 % gel 00 area QID Medical Branch Lidocaine 5 2021-11 Yes [id number] Apply to Univers % cream 0-20 area(s) [...] 5 mg SC qWeek Diclofenac 2021-11 Yes [id number] Apply 4g [facility] Sodium 0-20 to ity of (VOLTAREN) 00:00: affected [place] 1 % gel 00 area QID Medical Branch Lidocaine 5 2021-11 Yes [id number] Apply to Univers % cream 0-20 area(s) [...] 5 mg SC qWeek Diclofenac 2021-11 Yes [id number] Apply 4g [facility] Sodium 0-20 to ity of (VOLTAREN) 00:00: affected [place] as 1 % gel 00 area QID Medical Branch Lidocaine 5 2021-11 Yes [id number] Apply to Univers % cream 0-20 area(s) [...] 5 mg SC qWeek Diclofenac 2021-11 Yes [id number] Apply 4g [facility] Sodium 0-20 to ity of (VOLTAREN) 00:00: affected [place] as 1 % gel 00 area QID Medical Branch Lidocaine 5 2021-11 Yes [id number] Apply to Univers % cream 0-20 area(s) [...] 5 mg SC qWeek Diclofenac 2021-11 Yes [id number] Apply 4g [facility] Sodium 0-20 to ity of (VOLTAREN) 00:00: affected [place] as 1 % gel 00 area QID Medical Branch Lidocaine 5 2021-11 Yes [id number] Apply to Univers % cream 0-20 area(s) [...] 5 mg SC qWeek Diclofenac 2021-11 Yes [id number] Apply 4g [facility] Sodium 0-20 to ity of (VOLTAREN) 00:00: affected [place] 1 % gel 00 area QID Medical Branch Lidocaine 5 2021-11 Yes [id number] Apply to Univers % cream 0-20 area(s) [...] 5 mg SC qWeek Diclofenac 2021-11 Yes [id number] Apply 4g [facility] Sodium 0-20 to ity of (VOLTAREN) 00:00: affected [place] 1 % gel 00 area QID Medical Branch Lidocaine 5 2021-11 Yes [id number] Apply to Univers % cream 0-20 area(s) [...] 5 mg SC qWeek Diclofenac 2021-11 Yes [id number] Apply 4g [facility] Sodium 0-20 to ity of (VOLTAREN) 00:00: affected [place] 1 % gel 00 area QID Medical Branch Lidocaine 5 2021-11 Yes [id number] Apply to Univers % cream 0-20 area(s) [...] 5 mg SC qWeek Diclofenac 2021-11 Yes [id number] Apply 4g [facility] Sodium 0-20 to ity of (VOLTAREN) 00:00: affected [place] as 1 % gel 00 area QID Medical Branch Lidocaine 5 2021-11 Yes [id number] Apply to Univers % cream 0-20 area(s) [...] 5 mg SC qWeek Diclofenac 2021-11 Yes [id number] Apply 4g [facility] Sodium 0-20 to ity of (VOLTAREN) 00:00: affected [place] 1 % gel 00 area QID Medical Branch Lidocaine 5 2021-11 Yes [id number] Apply to Univers % cream 0-20 area(s) [...] 5 mg SC qWeek Diclofenac 2021-11 Yes [id number] Apply 4g [facility] Sodium 0-20 to ity of (VOLTAREN) 00:00: affected [place] 1 % gel 00 area QID Medical Branch Lidocaine 5 2021-11 Yes [id number] Apply to Univers % cream 0-20 area(s) [...] 5 mg SC qWeek Diclofenac 2021-11 Yes [id number] Apply 4g [facility] Sodium 0-20 to ity of (VOLTAREN) 00:00: affected [place] 1 % gel 00 area QID Medical Branch Lidocaine 5 2021-11 Yes [id number] Apply to Univers % cream 0-20 area(s) [...] 5 mg SC qWeek Diclofenac 2021-11 Yes [id number] Apply 4g [facility] Sodium 0-20 to ity of (VOLTAREN) 00:00: affected [place] 1 % gel 00 area QID Medical Branch Lidocaine 5 2021-11 Yes [id number] Apply to Univers % cream 0-20 area(s) [...] 5 mg SC qWeek Diclofenac 2021-11 Yes [id number] Apply 4g [facility] Sodium 0-20 to ity of (VOLTAREN) 00:00: affected [place] as 1 % gel 00 area QID Medical Branch Lidocaine 5 2021-11 Yes [id number] Apply to Univers % cream 0-20 area(s) [...] 5 mg SC qWeek Diclofenac 2021-11 Yes [id number] Apply 4g [facility] Sodium 0-20 to ity of (VOLTAREN) 00:00: affected [place] as 1 % gel 00 area QID Medical Branch Lidocaine 5 2021-11 Yes [id number] Apply to Univers % cream 0-20 area(s) [...] 5 mg SC qWeek Diclofenac 2021-11 Yes [id number] Apply 4g [facility] Sodium 0-20 to ity of (VOLTAREN) 00:00: affected [place] 1 % gel 00 area QID Medical Branch Lidocaine 5 2021-11 Yes [id number] Apply to Univers % cream 0-20 area(s) [...] 5 mg SC qWeek Diclofenac 2021-11 Yes [id number] Apply 4g [facility] Sodium 0-20 to ity of (VOLTAREN) 00:00: affected [place] 1 % gel 00 area QID Medical Branch Lidocaine 5 2021-11 Yes [id number] Apply to Univers % cream 0-20 area(s) [...] 5 mg SC qWeek Diclofenac 2021-11 Yes [id number] Apply 4g [facility] Sodium 0-20 to ity of (VOLTAREN) 00:00: affected [place] as 1 % gel 00 area QID Medical Branch Lidocaine 5 2021-11 Yes [id number] Apply to Univers % cream 0-20 area(s) [...] 5 mg SC qWeek Diclofenac 2021-11 Yes [id number] Apply 4g [facility] Sodium 0-20 to ity of (VOLTAREN) 00:00: affected [place] 1 % gel 00 area QID Medical Branch Lidocaine 5 2021-11 Yes [id number] Apply to Univers % cream 0-20 area(s) [...] 5 mg SC qWeek Diclofenac 2021-11 Yes [id number] Apply 4g [facility] Sodium 0-20 to ity of (VOLTAREN) 00:00: affected [place] 1 % gel 00 area QID Medical Branch Lidocaine 5 2021-11 Yes [id number] Apply to Univers % cream 0-20 area(s) [...] 5 mg SC qWeek Diclofenac 2021-11 Yes [id number] Apply 4g [facility] Sodium 0-20 to ity of (VOLTAREN) 00:00: affected [place] 1 % gel 00 area QID Medical Branch Lidocaine 5 2021-11 Yes [id number] Apply to Univers % cream 0-20 area(s) [...] 5 mg SC qWeek Diclofenac 2021-11 Yes [id number] Apply 4g [facility] Sodium 0-20 to ity of (VOLTAREN) 00:00: affected [place] 1 % gel 00 area QID Medical Branch Lidocaine 5 2021-11 Yes [id number] Apply to Univers % cream 0-20 area(s) [...] 5 mg SC qWeek Diclofenac 2021-11 Yes [id number] Apply 4g [facility] Sodium 0-20 to ity of (VOLTAREN) 00:00: affected [place] 1 % gel 00 area QID Medical Branch Lidocaine 5 2021-11 Yes [id number] Apply to Univers % cream 0-20 area(s) [...] 5 mg SC qWeek Diclofenac 2021-11 Yes [id number] Apply 4g [facility] Sodium 0-20 to ity of (VOLTAREN) 00:00: affected [place] 1 % gel 00 area QID Medical Branch Lidocaine 5 2021-11 Yes [id number] Apply to Univers % cream 0-20 area(s) [...] 5 mg SC qWeek Diclofenac 2021-11 Yes [id number] Apply 4g [facility] Sodium 0-20 to ity of (VOLTAREN) 00:00: affected [place] 1 % gel 00 area QID Medical Branch Lidocaine 5 2021-11 Yes [id number] Apply to Univers % cream 0-20 area(s) [...] 5 mg SC qWeek Diclofenac 2021-11 Yes [id number] Apply 4g [facility] Sodium 0-20 to ity of (VOLTAREN) 00:00: affected [place] 1 % gel 00 area QID Medical Branch Lidocaine 5 2021-11 Yes [id number] Apply to Univers % cream 0-20 area(s) [...] 5 mg SC qWeek Diclofenac 2021-11 Yes [id number] Apply 4g [facility] Sodium 0-20 to ity of (VOLTAREN) 00:00: affected [place] 1 % gel 00 area QID Medical Branch Lidocaine 2021-11 Yes [id number] Apply to Univers % cream 0-20 area(s) [...] 5 mg SC qWeek Diclofenac 2021-11 Yes [id number] Apply 4g [facility] Sodium 0-20 to ity of (VOLTAREN) 00:00: affected [place] 1 % gel 00 area QID Medical Branch Lidocaine 5 2021-11 Yes [id number] Apply to [facility] % cream 0-20 area(s) [...] 5 mg SC qWeek Diclofenac 2021-11 Yes [id number] Apply 4g [facility] Sodium 0-20 to ity of (VOLTAREN) 00:00: affected [place] 1 % gel 00 area QID Medical Branch Lidocaine 5 2021-11 Yes [id number] Apply to [facility] % cream 0-20 area(s) [...] 5 mg SC qWeek Diclofenac 2021-11 Yes [id number] Apply 4g [facility] Sodium 0-20 to ity of (VOLTAREN) 00:00: affected [place] as 1 % gel 00 area QID Medical Branch Lidocaine 2021-11 Yes [id number] Apply to Univers % cream 0-20 area(s) [...] 5 mg SC qWeek Diclofenac 2021-11 Yes [id number] Apply 4g [facility] Sodium 0-20 to ity of (VOLTAREN) 00:00: affected [place] as 1 % gel 00 area QID Medical Branch Lidocaine 5 2021-11 Yes [id number] Apply to [facility] % cream 0-20 area(s) [...] 5 mg SC qWeek Diclofenac 2021-11 Yes [id number] Apply 4g [facility] Sodium 0-20 to ity of (VOLTAREN) 00:00: affected [place] [facility] % gel 00 area QID [facility] Lidocaine 2021-11 Yes [id number] Apply to [facility] % cream 0-20 area(s) [...] 5 mg SC qWeek Diclofenac 2021-11 Yes [id number] Apply 4g [facility] Sodium 0-20 to ity of (VOLTAREN) 00:00: affected [place] [facility] % gel 00 area QID [facility] Lidocaine 2021-11 Yes [id number] Apply to [facility] % cream 0-20 area(s) [...] 5 mg SC qWeek Diclofenac 2021-11 Yes [id number] Apply 4g [facility] Sodium 0-20 to ity of (VOLTAREN) 00:00: affected [place] [facility] % gel 00 area QID [facility] Lidocaine 2021-11 Yes [id number] Apply to [facility] % cream 0-20 area(s) [...] 5 mg SC qWeek Diclofenac 2021-11 Yes [id number] Apply 4g [facility] Sodium 0-20 to ity of (VOLTAREN) 00:00: affected [place] [facility] % gel 00 area QID [facility] Lidocaine 2021-11 Yes [id number] Apply to [facility] % cream 0-20 area(s) [...] 5 mg SC qWeek Diclofenac 2021-11 Yes [id number] Apply 4g [facility] Sodium 0-20 to ity of (VOLTAREN) 00:00: affected [place] [facility] % gel 00 area QID [facility] Lidocaine 2021-11 Yes [id number] Apply to [facility] % cream 0-20 area(s) [...] 5 mg SC qWeek Diclofenac 2021-11 Yes [id number] Apply 4g [facility] Sodium 0-20 to ity of (VOLTAREN) 00:00: affected [place] [facility] % gel 00 area QID [facility] Lidocaine 2021-11 Yes [id number] Apply to [facility] % cream 0-20 area(s) [...] 5 mg SC qWeek Diclofenac 2021-11 Yes [id number] Apply 4g [facility] Sodium 0-20 to ity of (VOLTAREN) 00:00: affected [place] [facility] % gel 00 area QID [facility] Lidocaine 2021-11 Yes [id number] Apply to [facility] % cream 0-20 area(s) [...] 5 mg SC qWeek Diclofenac 2021-11 Yes [id number] Apply 4g [facility] Sodium 0-20 to ity of (VOLTAREN) 00:00: affected [place] [facility] % gel 00 area QID [facility] Lidocaine 2021-11 Yes [id number] Apply to [facility] % cream 0-20 area(s) [...] 5 mg SC qWeek Diclofenac 2021-11 Yes [id number] Apply 4g [facility] Sodium 0-20 to ity of (VOLTAREN) 00:00: affected [place] [facility] % gel 00 area QID [facility] Lidocaine 5 2021-11 Yes [id number] Apply to [facility] % cream 0-20 area(s) [...] 5 mg SC qWeek Diclofenac 2021-11 Yes [id number] Apply 4g [facility] Sodium 0-20 to ity of (VOLTAREN) 00:00: affected [place] [facility] % gel 00 area QID [facility] Lidocaine 2021-11 Yes [id number] Apply to [facility] % cream 0-20 area(s) [...] 5 mg SC qWeek Diclofenac 2021-11 Yes [id number] Apply 4g [facility] Sodium 0-20 to ity of (VOLTAREN) 00:00: affected [place] [facility] % gel 00 area QID [facility] Lidocaine 5 2021-11 Yes [id number] Apply to [facility] % cream 0-20 area(s) [...] 5 mg SC qWeek Diclofenac 2021-11 Yes [id number] Apply 4g [facility] Sodium 0-20 to ity of (VOLTAREN) 00:00: affected [place] [facility] % gel 00 area QID [facility] Lidocaine 2021-11 Yes [id number] Apply to [facility] % cream 0-20 area(s) [...] 5 mg SC qWeek Diclofenac 2021-11 Yes [id number] Apply 4g [facility] Sodium 0-20 to ity of (VOLTAREN) 00:00: affected [place] [facility] % gel 00 area QID [facility] Lidocaine 2021-11 Yes [id number] Apply to [facility] % cream 0-20 area(s) [...] 5 mg SC qWeek Diclofenac 2021-11 Yes [id number] Apply 4g [facility] Sodium 0-20 to ity of (VOLTAREN) 00:00: affected [place] [facility] % gel 00 area QID [facility] Lidocaine 5 2021-11 Yes [id number] Apply to [facility] % cream 0-20 area(s) [...] 5 mg SC qWeek Diclofenac 2021-11 Yes [id number] Apply 4g [facility] Sodium 0-20 to ity of (VOLTAREN) 00:00: affected [place] [facility] % gel 00 area QID [facility] Lidocaine 2021-11 Yes [id number] Apply to [facility] % cream 0-20 area(s) [...] 5 mg SC qWeek Diclofenac 2021-11 Yes [id number] Apply 4g [facility] Sodium 0-20 to ity of (VOLTAREN) 00:00: affected [place] [facility] % gel 00 area QID [facility] Lidocaine 2021-11 Yes [id number] Apply to [facility] % cream 0-20 area(s) [...] 5 mg SC qWeek Diclofenac 2021-11 Yes [id number] Apply 4g [facility] Sodium 0-20 to ity of (VOLTAREN) 00:00: affected [place] [facility] % gel 00 area QID [facility] Lidocaine 5 2021-11 Yes [id number] Apply to [facility] % cream 0-20 area(s) [...] 5 mg SC qWeek Diclofenac 2021-11 Yes [id number] Apply 4g [facility] Sodium 0-20 to ity of (VOLTAREN) 00:00: affected [place] [facility] % gel 00 area QID [facility] Lidocaine 2021-11 Yes [id number] Apply to [facility] % cream 0-20 area(s) [...] 5 mg SC qWeek Diclofenac 2021-11 Yes [id number] Apply 4g [facility] Sodium 0-20 to ity of (VOLTAREN) 00:00: affected [place] [facility] % gel 00 area QID [facility] Lidocaine 2021-11 Yes [id number] Apply to [facility] % cream 0-20 area(s) [...] 5 mg SC qWeek Diclofenac 2021-11 Yes [id number] Apply 4g [facility] Sodium 0-20 to ity of (VOLTAREN) 00:00: affected [place] [facility] % gel 00 area QID [facility] Lidocaine 2021-11 Yes [id number] Apply to [facility] % cream 0-20 area(s) [...] 5 mg SC qWeek Diclofenac 2021-11 Yes [id number] Apply 4g [facility] Sodium 0-20 to ity of (VOLTAREN) 00:00: affected [place] [facility] 1 % gel 00 area QID [facility] Lidocaine 5 2021-11 Yes [id number] Apply to [facility] % cream 0-20 area(s) [...] 5 mg SC qWeek Diclofenac 2021-11 Yes [id number] Apply 4g [facility] Sodium 0-20 to ity of (VOLTAREN) 00:00: affected [place] [facility] 1 % gel 00 area QID [facility] Lidocaine 5 2021-11 Yes [id number] Apply to [facility] % cream 0-20 area(s) [...] 5 mg SC qWeek Diclofenac 2021-11 Yes [id number] Apply 4g [facility] Sodium 0-20 to ity of (VOLTAREN) 00:00: affected [place] [facility] % gel 00 area QID [facility] Lidocaine 2021-11 Yes [id number] Apply to [facility] % cream 0-20 area(s) [...] 5 mg SC qWeek Diclofenac 2021-11 Yes [id number] Apply 4g [facility] Sodium 0-20 to ity of (VOLTAREN) 00:00: affected [place] [facility] % gel 00 area QID [facility] Lidocaine 2021-11 Yes [id number] Apply to [facility] % cream 0-20 area(s) [...] 5 mg SC qWeek Diclofenac 2021-11 Yes [id number] Apply 4g [facility] Sodium 0-20 to ity of (VOLTAREN) 00:00: affected [place] [facility] % gel 00 area QID [facility] Lidocaine 2021-11 Yes [id number] Apply to [facility] % cream 0-20 area(s) [...] 5 mg SC qWeek Diclofenac 2021-11 Yes [id number] Apply 4g [facility] Sodium 0-20 to ity of (VOLTAREN) 00:00: affected [place] [facility] % gel 00 area QID [facility] Lidocaine 5 2021-11 Yes [id number] Apply to [facility] % cream 0-20 area(s) [...] 5 mg SC qWeek Diclofenac 2021-11 Yes [id number] Apply 4g [facility] Sodium 0-20 to ity of (VOLTAREN) 00:00: affected [place] [facility] % gel 00 area QID [facility] Lidocaine 2021-11 Yes [id number] Apply to [facility] % cream 0-20 area(s) [...] 5 mg SC qWeek Diclofenac 2021-11 Yes [id number] Apply 4g [facility] Sodium 0-20 to ity of (VOLTAREN) 00:00: affected [place] [facility] 1 % gel 00 area QID [facility] Lidocaine 5 2021-11 Yes [id number] Apply to [facility] % cream 0-20 area(s) [...] 5 mg SC qWeek Diclofenac 2021-11 Yes [id number] Apply 4g [facility] Sodium 0-20 to ity of (VOLTAREN) 00:00: affected [place] [facility] 1 % gel 00 area QID [facility] Lidocaine 5 2021-11 Yes [id number] Apply to [facility] % cream 0-20 area(s) [...] 5 mg SC qWeek Diclofenac 2021-11 Yes [id number] Apply 4g [facility] Sodium 0-20 to ity of (VOLTAREN) 00:00: affected [place] [facility] % gel 00 area QID [facility] Lidocaine 2021-11 Yes [id number] Apply to [facility] % cream 0-20 area(s) [...] 5 mg SC qWeek Diclofenac 2021-11 Yes [id number] Apply 4g [facility] Sodium 0-20 to ity of (VOLTAREN) 00:00: affected [place] [facility] 1 % gel 00 area QID [facility] Lidocaine 5 2021-11 Yes [id number] Apply to [facility] % cream 0-20 area(s) [...] 5 mg SC qWeek Diclofenac 2021-11 Yes [id number] Apply 4g [facility] Sodium 0-20 to ity of (VOLTAREN) 00:00: affected [place] [facility] % gel 00 area QID [facility] Lidocaine 2021-11 Yes [id number] Apply to [facility] % cream 0-20 area(s) [...] 5 mg SC qWeek Diclofenac 2021-11 Yes [id number] Apply 4g [facility] Sodium 0-20 to ity of (VOLTAREN) 00:00: affected [place] [facility] 1 % gel 00 area QID [facility] Lidocaine 2021-11 Yes [id number] Apply to [facility] % cream 0-20 area(s) [...] 5 mg SC qWeek Diclofenac 2021-11 Yes [id number] Apply 4g [facility] Sodium 0-20 to ity of (VOLTAREN) 00:00: affected [place] [facility] 1 % gel 00 area QID [facility] Lidocaine 2021-11 Yes [id number] Apply to [facility] % cream 0-20 area(s) [...] 5 mg SC qWeek Diclofenac 2021-11 Yes [id number] Apply 4g [facility] Sodium 0-20 to ity of (VOLTAREN) 00:00: affected [place] [facility] 1 % gel 00 area QID [facility] Lidocaine 2021-11 Yes [id number] Apply to [facility] % cream 0-20 area(s) [...] 5 mg SC qWeek Diclofenac 2021-11 Yes [id number] Apply 4g [facility] Sodium 0-20 to ity of (VOLTAREN) 00:00: affected [place] [facility] 1 % gel 00 area QID [facility] Lidocaine 2021-11 Yes [id number] Apply to [facility] % cream 0-20 area(s) [...] 5 mg SC qWeek Diclofenac 2021-11 Yes [id number] Apply 4g [facility] Sodium 0-20 to ity of (VOLTAREN) 00:00: affected [place] [facility] 1 % gel 00 area QID [facility] Lidocaine 2021-11 Yes [id number] Apply to [facility] % cream 0-20 area(s) [...] 5 mg SC qWeek Diclofenac 2021-11 Yes [id number] Apply 4g [facility] Sodium 0-20 to ity of (VOLTAREN) 00:00: affected [place] [facility] 1 % gel 00 area QID [facility] Lidocaine 2021-11 Yes [id number] Apply to [facility] % cream 0-20 area(s) [...] 5 mg SC qWeek Diclofenac 2021-11 Yes [id number] Apply 4g [facility] Sodium 0-20 to ity of (VOLTAREN) 00:00: affected [place] [facility] 1 % gel 00 area QID [facility] Lidocaine 2021-11 Yes [id number] Apply to [facility] % cream 0-20 area(s) [...] 5 mg SC qWeek Diclofenac 2021-11 Yes [id number] Apply 4g [facility] Sodium 0-20 to ity of (VOLTAREN) 00:00: affected [place] [facility] 1 % gel 00 area QID [facility] Lidocaine 2021-11 Yes [id number] Apply to [facility] % cream 0-20 area(s) [...] 5 mg SC qWeek Diclofenac 2021-11 Yes [id number] Apply 4g [facility] Sodium 0-20 to ity of (VOLTAREN) 00:00: affected [place] [facility] 1 % gel 00 area QID [facility] Lidocaine 2021-11 Yes [id number] Apply to [facility] % cream 0-20 area(s) [...] 5 mg SC qWeek Diclofenac 2021-11 Yes [id number] Apply 4g [facility] Sodium 0-20 to ity of (VOLTAREN) 00:00: affected [place] [facility] 1 % gel 00 area QID [facility] Lidocaine 5 2021-11 Yes [id number] Apply to [facility] % cream 0-20 area(s) [...] 5 mg SC qWeek Diclofenac 2021-11 Yes [id number] Apply 4g [facility] Sodium 0-20 to ity of (VOLTAREN) 00:00: affected [place] [facility] 1 % gel 00 area QID [facility] Lidocaine 5 2021-11 Yes [id number] Apply to [facility] % cream 0-20 area(s) [...] 5 mg SC qWeek Diclofenac 2021-11 Yes [id number] Apply 4g [facility] Sodium 0-20 to ity of (VOLTAREN) 00:00: affected [place] [facility] 1 % gel 00 area QID [facility] Lidocaine 2021-11 Yes [id number] Apply to [facility] % cream 0-20 area(s) [...] 5 mg SC qWeek Diclofenac 2021-11 Yes [id number] Apply 4g [facility] Sodium 0-20 to ity of (VOLTAREN) 00:00: affected [place] [facility] 1 % gel 00 area QID [facility] Lidocaine 5 2021-11 Yes [id number] Apply to [facility] % cream 0-20 area(s) [...] 5 mg SC qWeek Diclofenac 2021-11 Yes [id number] Apply 4g [facility] Sodium 0-20 to ity of (VOLTAREN) 00:00: affected [place] [facility] 1 % gel 00 area QID [facility] Lidocaine 5 2021-11 Yes [id number] Apply to [facility] % cream 0-20 area(s) [...] 5 mg SC qWeek Diclofenac 2021-11 Yes [id number] Apply 4g [facility] Sodium 0-20 to ity of (VOLTAREN) 00:00: affected [place] [facility] 1 % gel 00 area QID [facility] Lidocaine 2021-11 Yes [id number] Apply to [facility] % cream 0-20 area(s) [...] 5 mg SC qWeek Diclofenac 2021-11 Yes [id number] Apply 4g [facility] Sodium 0-20 to ity of (VOLTAREN) 00:00: affected [place] [facility] 1 % gel 00 area QID [facility] Lidocaine 5 2021-11 Yes [id number] Apply to [facility] % cream 0-20 area(s) [...] 5 mg SC qWeek Diclofenac 2021-11 Yes [id number] Apply 4g [facility] Sodium 0-20 to ity of (VOLTAREN) 00:00: affected [place] [facility] 1 % gel 00 area QID [facility] Lidocaine 5 2021-11 Yes [id number] Apply to [facility] % cream 0-20 area(s) [...] 5 mg SC qWeek Diclofenac 2021-11 Yes [id number] Apply 4g [facility] Sodium 0-20 to ity of (VOLTAREN) 00:00: affected [place] [facility] 1 % gel 00 area QID [facility] Lidocaine 5 2021-11 Yes [id number] Apply to [facility] % cream 0-20 area(s) 2 ity of 00:00: (two) [place] 00 times Medical daily as Branch needed for Pain (scale 4-6). Apply 5g to affected areas BID PRN Insulin 2021-11 Yes [id number] INJECT 53 U nivers Glargine 0-20 UNITS [...] 5 mg SC qWeek Diclofenac 2021-11 Yes [id number] Apply 4g [facility] Sodium 0-20 to ity of (VOLTAREN) 00:00: affected [place] [facility] 1 % gel 00 area QID [facility] Lidocaine 5 2021-11 Yes [id number] Apply to [facility] % cream 0-20 area(s) 2 ity of 00:00: (two) [place] 00 times Medical daily as Branch needed for Pain (scale 4-6). Apply 5g to affected areas BID PRN Insulin 2021-11 Yes [id number] INJECT 53 U nivers Glargine 0-20 UNITS [...] 5 mg SC qWeek Diclofenac 2021-11 Yes [id number] Apply 4g [facility] Sodium 0-20 to ity of (VOLTAREN) 00:00: affected [place] [facility] 1 % gel 00 area QID [facility] Lidocaine 5 2021-11 Yes [id number] Apply to [facility] % cream 0-20 area(s) 2 ity of 00:00: (two) [place] 00 times Medical daily as Branch needed for Pain (scale 4-6). Apply 5g to affected areas BID PRN Insulin 2021-11 Yes [id number] INJECT 53 U nivers Glargine 0-20 UNITS [...] 5 mg SC qWeek Diclofenac 2021-11 Yes [id number] Apply 4g [facility] Sodium 0-20 to ity of (VOLTAREN) 00:00: affected [place] [facility] 1 % gel 00 area QID [facility] Lidocaine 5 2021-11 Yes [id number] Apply to [facility] % cream 0-20 area(s) 2 ity of 00:00: (two) [place] 00 times Medical daily as Branch needed for Pain (scale 4-6). Apply 5g to affected areas BID PRN Insulin 2021-11 Yes [id number] INJECT 53 U nivers Glargine 0-20 UNITS [...] 5 mg SC qWeek Diclofenac 2021-11 Yes [id number] Apply 4g [facility] Sodium 0-20 to ity of (VOLTAREN) 00:00: affected [place] [facility] 1 % gel 00 area QID [facility] Lidocaine 5 2021-11 Yes [id number] Apply to [facility] % cream 0-20 area(s) 2 ity of 00:00: (two) [place] 00 times Medical daily as Branch needed for Pain (scale 4-6). Apply 5g to affected areas BID PRN Insulin 2021-11 Yes [id number] INJECT 53 U nivers Glargine 0-20 UNITS [...] 5 mg SC qWeek Diclofenac 2021-11 Yes [id number] Apply 4g [facility] Sodium 0-20 to ity of (VOLTAREN) 00:00: affected [place] [facility] 1 % gel 00 area QID [facility] Lidocaine 5 2021-11 Yes [id number] Apply to [facility] % cream 0-20 area(s) 2 ity of 00:00: (two) [place] 00 times Medical daily as Branch needed for Pain (scale 4-6). Apply 5g to affected areas BID PRN Insulin 2021-11 Yes [id number] INJECT 53 U nivers Glargine 0-20 UNITS [...] 5 mg SC qWeek Diclofenac 2021-11 Yes [id number] Apply 4g [facility] Sodium 0-20 to ity of (VOLTAREN) 00:00: affected [place] [facility] 1 % gel 00 area QID [facility] Lidocaine 5 2021-11 Yes [id number] Apply to [facility] % cream 0-20 area(s) 2 ity of 00:00: (two) [place] 00 times Medical daily as Branch needed for Pain (scale 4-6). Apply 5g to affected areas BID PRN Insulin 2021-11 Yes [id number] INJECT 53 U nivers Glargine 0-20 UNITS [...] 5 mg SC qWeek Diclofenac 2021-11 Yes [id number] Apply 4g [facility] Sodium 0-20 to ity of (VOLTAREN) 00:00: affected [place] [facility] 1 % gel 00 area QID [facility] Lidocaine 5 2021-11 Yes [id number] Apply to [facility] % cream 0-20 area(s) 2 ity of 00:00: (two) [place] 00 times Medical daily as Branch needed for Pain (scale 4-6). Apply 5g to affected areas BID PRN Insulin 2021-11 Yes [id number] INJECT 53 U nivers Glargine 0-20 UNITS [...] 5 mg SC qWeek Diclofenac 2021-11 Yes [id number] Apply 4g [facility] Sodium 0-20 to ity of (VOLTAREN) 00:00: affected [place] [facility] 1 % gel 00 area QID [facility] Lidocaine 5 2021-11 Yes [id number] Apply to [facility] % cream 0-20 area(s) 2 ity of 00:00: (two) [place] 00 times Medical daily as Branch needed for Pain (scale 4-6). Apply 5g to affected areas BID PRN Insulin 2021-11 Yes [id number] INJECT 53 U nivers Glargine 0-20 UNITS [...] 5 mg SC qWeek Diclofenac 2021-11 Yes [id number] Apply 4g [facility] Sodium 0-20 to ity of (VOLTAREN) 00:00: affected [place] [facility] 1 % gel 00 area QID [facility] Lidocaine 5 2021-11 Yes [id number] Apply to [facility] % cream 0-20 area(s) 2 ity of 00:00: (two) [place] 00 times Medical daily as Branch needed for Pain (scale 4-6). Apply 5g to affected areas BID PRN Insulin 2021-11 Yes [id number] INJECT 53 U nivers Glargine 0-20 UNITS [...] 5 mg SC qWeek Diclofenac 2021-11 Yes [id number] Apply 4g [facility] Sodium 0-20 to ity of (VOLTAREN) 00:00: affected [place] [facility] 1 % gel 00 area QID [facility] Lidocaine 5 2021-11 Yes [id number] Apply to [facility] % cream 0-20 area(s) 2 ity of 00:00: (two) [place] 00 times Medical daily as Branch needed for Pain (scale 4-6). Apply 5g to affected areas BID PRN Insulin 2021-11 Yes [id number] INJECT 53 U nivers Glargine 0-20 UNITS [...] 5 mg SC qWeek Diclofenac 2021-11 Yes [id number] Apply 4g [facility] Sodium 0-20 to ity of (VOLTAREN) 00:00: affected [place] [facility] 1 % gel 00 area QID [facility] Lidocaine 5 2021-11 Yes [id number] Apply to [facility] % cream 0-20 area(s) 2 ity of 00:00: (two) [place] 00 times Medical daily as Branch needed for Pain (scale 4-6). Apply 5g to affected areas BID PRN Insulin 2021-11 Yes [id number] INJECT 53 U nivers Glargine 0-20 UNITS [...] 5 mg SC qWeek Diclofenac 2021-11 Yes [id number] Apply 4g [facility] Sodium 0-20 to ity of (VOLTAREN) 00:00: affected [place] [facility] 1 % gel 00 area QID [facility] Lidocaine 5 2021-11 Yes [id number] Apply to [facility] % cream 0-20 area(s) 2 ity of 00:00: (two) [place] 00 times Medical daily as Branch needed for Pain (scale 4-6). Apply 5g to affected areas BID PRN Insulin 2021-11 Yes [id number] INJECT 53 U nivers Glargine 0-20 UNITS [...] 5 mg SC qWeek Diclofenac 2021-11 Yes [id number] Apply 4g [facility] Sodium 0-20 to ity of (VOLTAREN) 00:00: affected [place] [facility] 1 % gel 00 area QID [facility] Lidocaine 5 2021-11 Yes [id number] Apply to [facility] % cream 0-20 area(s) 2 ity of 00:00: (two) [place] 00 times Medical daily as Branch needed for Pain (scale 4-6). Apply 5g to affected areas BID PRN Insulin 2021-11 Yes [id number] INJECT 53 U nivers Glargine 0-20 UNITS [...] 5 mg SC qWeek Diclofenac 2021-11 Yes [id number] Apply 4g [facility] Sodium 0-20 to ity of (VOLTAREN) 00:00: affected [place] [facility] 1 % gel 00 area QID [facility] Lidocaine 5 2021-11 Yes [id number] Apply to [facility] % cream 0-20 area(s) 2 ity of 00:00: (two) [place] 00 times Medical daily as Branch needed for Pain (scale 4-6). Apply 5g to affected areas BID PRN Insulin 2021-11 Yes [id number] INJECT 53 U nivers Glargine 0-20 UNITS [...] 5 mg SC qWeek Diclofenac 2021-11 Yes [id number] Apply 4g [facility] Sodium 0-20 to ity of (VOLTAREN) 00:00: affected [place] [facility] 1 % gel 00 area QID [facility] Lidocaine 5 2021-11 Yes [id number] Apply to [facility] % cream 0-20 area(s) 2 ity of 00:00: (two) [place] 00 times Medical daily as Branch needed for Pain (scale 4-6). Apply 5g to affected areas BID PRN Insulin 2021-11 Yes [id number] INJECT 53 U nivers Glargine 0-20 UNITS [...] 5 mg SC qWeek Diclofenac 2021-11 Yes [id number] Apply 4g [facility] Sodium 0-20 to ity of (VOLTAREN) 00:00: affected [place] [facility] 1 % gel 00 area QID [facility] Lidocaine 5 2021-11 Yes [id number] Apply to [facility] % cream 0-20 area(s) 2 ity of 00:00: (two) [place] 00 times Medical daily as Branch needed for Pain (scale 4-6). Apply 5g to affected areas BID PRN Insulin 2021-11 Yes [id number] INJECT 53 U nivers Glargine 0-20 UNITS [...] 5 mg SC qWeek Diclofenac 2021-11 Yes [id number] Apply 4g [facility] Sodium 0-20 to ity of (VOLTAREN) 00:00: affected [place] [facility] 1 % gel 00 area QID [facility] Lidocaine 5 2021-11 Yes [id number] Apply to [facility] % cream 0-20 area(s) 2 ity of 00:00: (two) [place] 00 times Medical daily as Branch needed for Pain (scale 4-6). Apply 5g to affected areas BID PRN Insulin 2021-11 Yes [id number] INJECT 53 U nivers Glargine 0-20 UNITS [...] 5 mg SC qWeek Diclofenac 2021-11 Yes [id number] Apply 4g [facility] Sodium 0-20 to ity of (VOLTAREN) 00:00: affected [place] [facility] 1 % gel 00 area QID [facility] Lidocaine 5 2021-11 Yes [id number] Apply to [facility] % cream 0-20 area(s) 2 ity of 00:00: (two) [place] 00 times Medical daily as Branch needed for Pain (scale 4-6). Apply 5g to affected areas BID PRN Insulin 2021-11 Yes [id number] INJECT 53 U nivers Glargine 0-20 UNITS [...] 5 mg SC qWeek Diclofenac 2021-11 Yes [id number] Apply 4g [facility] Sodium 0-20 to ity of (VOLTAREN) 00:00: affected [place] [facility] 1 % gel 00 area QID [facility] Lidocaine 5 2021-11 Yes [id number] Apply to [facility] % cream 0-20 area(s) 2 ity of 00:00: (two) [place] 00 times Medical daily as Branch needed for Pain (scale 4-6). Apply 5g to affected areas BID PRN Insulin 2021-11 Yes [id number] INJECT 53 U nivers Glargine 0-20 UNITS [...] 5 mg SC qWeek Diclofenac 2021-11 Yes [id number] Apply 4g [facility] Sodium 0-20 to ity of (VOLTAREN) 00:00: affected [place] [facility] 1 % gel 00 area QID [facility] Lidocaine 5 2021-11 Yes [id number] Apply to [facility] % cream 0-20 area(s) 2 ity of 00:00: (two) [place] 00 times Medical daily as Branch needed for Pain (scale 4-6). Apply 5g to affected areas BID PRN Insulin 2021-11 Yes [id number] INJECT 53 U nivers Glargine 0-20 UNITS [...] increase to 5 mg SC qWeek tirzepatide 2022-1 Yes 5mg inject 5 Un godfrey (MOUNJARO) 0-20 mg under ity o f 5 mg/0.5 mL 00:00: the skin [place] Pn[facility] 00 weekly. [facility] Start Branch 2.5mg SC qWeek x 4 Weeks, then increase to 5 mg SC qWeek Diclofenac 2021-11 Yes [id number] Apply 4g [facility] Sodium 0-20 to ity of (VOLTAREN) 00:00: affected [place] 1 % gel 00 area QID Medical Branch Lidocaine 5 2021-11 Yes [id number] Apply to [facility] % cream 0-20 area(s) 2 ity of 00:00: (two) [place] 00 times Medical daily as Branch needed for Pain (scale 4-6). Apply 5g to affected areas BID PRN Insulin 2021-11 Yes [id number] INJECT 53 U nivers Glargine 0-20 UNITS [...] 5 mg SC qWeek Diclofenac 2021-11 Yes [id number] Apply 4g [facility] Sodium 0-20 to ity of (VOLTAREN) 00:00: affected [place] 1 % gel 00 area QID [facility] Branch Lidocaine 5 2021-11 Yes [id number] Apply to [facility] % cream 0-20 area(s) 2 ity of 00:00: (two) [place] 00 times Medical daily as Branch needed for Pain (scale 4-6). Apply 5g to affected areas BID PRN Insulin 2021-11 Yes [id number] INJECT 53 U nivers Glargine 0-20 UNITS [...] 5 mg SC qWeek Diclofenac 2021-11 Yes [id number] Apply 4g [facility] Sodium 0-20 to ity of (VOLTAREN) 00:00: affected [place] 1 % gel 00 area QID [facility] Lidocaine 5 2021-11 Yes [id number] Apply to [facility] % cream 0-20 area(s) 2 ity of 00:00: (two) [place] 00 times Medical daily as Branch needed for Pain (scale 4-6). Apply 5g to affected areas BID PRN Insulin 2021-11 Yes [id number] INJECT 53 U nivers Glargine 0-20 UNITS [...] 5 mg SC qWeek Diclofenac 2021-11 Yes [id number] Apply 4g [facility] Sodium 0-20 to ity of (VOLTAREN) 00:00: affected [place] [facility] 1 % gel 00 area QID [facility] Branch Lidocaine 5 2021-11 Yes [id number] Apply to [facility] % cream 0-20 area(s) 2 ity of 00:00: (two) [place] 00 times Medical daily as Branch needed for Pain (scale 4-6). Apply 5g to affected areas BID PRN Insulin 2021-11 Yes [id number] INJECT 53 U nivers Glargine 0-20 UNITS [...] 5 mg SC qWeek Insulin 2021-11- No [id number] INJECT 53 [facility] Glargine 0-20 12-23 UNITS [...] days. Indication s: chronic pain bumetanide Yes [id number] Take 2tabs [facility] 0.5 mg 9-21 in AM 1tab ity of tablet 00:00: in PM [facility] Branch bumetanide 0 Yes [id number] Take 2tabs [facility] 0.5 mg 9-21 in AM 1tab ity of tablet 00:00: in PM [facility] Branch bumetanide 0 Yes [id number] Take 2tabs [facility] 0.5 mg 9-21 in AM 1tab ity of tablet 00:00: in Medical Branch bumetanide 0 Yes [id number] Take 2tabs [facility] 0.5 mg 9-21 in AM 1tab ity of tablet 00:00: in PM [facility] Branch bumetanide 0 Yes [id number] Take 2tabs [facility] 0.5 mg 9-21 in AM 1tab ity of tablet 00:00: in [facility] bumetanide 0 Yes [id number] Take 2tabs [facility] 0.5 mg 9-21 in AM 1tab ity of tablet 00:00: in [place] [address] Medical Branch bumetanide 0 Yes [id number] Take 2tabs [facility] 0.5 mg 9-21 in AM 1tab ity of tablet 00:00: in [place] [address] Medical Branch bumetanide 0 Yes [id number] Take 2tabs [facility] 0.5 mg 9-21 in AM 1tab ity of tablet 00:00: in [facility] Branch bumetanide Yes [id number] Take 2tabs [facility] 0.5 mg 9-21 in AM 1tab ity of tablet 00:00: in [place] [address] Medical Branch bumetanide 0 Yes [id number] Take 2tabs [facility] 0.5 mg 9-21 in AM 1tab ity of tablet 00:00: in [place] [address] Medical Branch bumetanide 0 Yes [id number] Take 2tabs [facility] 0.5 mg 9-21 in AM 1tab ity of tablet 00:00: in [place] [address] Medical Branch bumetanide 0 Yes [id number] Take 2tabs [facility] 0.5 mg 9-21 in AM 1tab ity of tablet 00:00: in [place] [address] Medical Branch bumetanide 0 Yes [id number] Take 2tabs [facility] 0.5 mg 9-21 in AM 1tab ity of tablet 00:00: in [place] [address] Medical Branch bumetanide 0 Yes [id number] Take 2tabs [facility] 0.5 mg 9-21 in AM 1tab ity of tablet 00:00: in [place] [address] Medical Branch bumetanide 0 Yes [id number] Take 2tabs [facility] 0.5 mg 9-21 in AM 1tab ity of tablet 00:00: in [place] [address] Medical Branch bumetanide 0 Yes [id number] Take 2tabs [facility] 0.5 mg 9-21 in AM 1tab ity of tablet 00:00: in [place] [address] Medical Branch bumetanide 0 Yes [id number] Take 2tabs [facility] 0.5 mg 9-21 in AM 1tab ity of tablet 00:00: in [place] [address] Medical Branch bumetanide 0 Yes [id number] Take 2tabs [facility] 0.5 mg 9-21 in AM 1tab ity of tablet 00:00: in [facility] Branch bumetanide 0 Yes [id number] Take 2tabs [facility] 0.5 mg 9-21 in AM 1tab ity of tablet 00:00: in [place] [address] Medical Branch bumetanide 0 Yes [id number] Take 2tabs [facility] 0.5 mg 9-21 in AM 1tab ity of tablet 00:00: in [place] [address] Medical Branch bumetanide 0 Yes [id number] Take 2tabs [facility] 0.5 mg 9-21 in AM 1tab ity of tablet 00:00: in [place] [address] Medical Branch bumetanide 0 Yes [id number] Take 2tabs [facility] 0.5 mg 9-21 in AM 1tab ity of tablet 00:00: in [place] [address] Medical Branch bumetanide 0 Yes [id number] Take 2tabs [facility] 0.5 mg 9-21 in AM 1tab ity of tablet 00:00: in [place] [address] Medical Branch bumetanide 0 Yes [id number] Take 2tabs [facility] 0.5 mg 9-21 in AM 1tab ity of tablet 00:00: in [place] [address] Medical Branch bumetanide 0 Yes [id number] Take 2tabs [facility] 0.5 mg 9-21 in AM 1tab ity of tablet 00:00: in [place] [address] Medical Branch bumetanide 0 Yes [id number] Take 2tabs [facility] 0.5 mg 9-21 in AM 1tab ity of tablet 00:00: in [place] [address] Medical Branch bumetanide 0 Yes [id number] Take 2tabs [facility] 0.5 mg 9-21 in AM 1tab ity of tablet 00:00: in [facility] Branch bumetanide 0 Yes [id number] Take 2tabs [facility] 0.5 mg 9-21 in AM 1tab ity of tablet 00:00: in [facility] Branch bumetanide 0 Yes [id number] Take 2tabs [facility] 0.5 mg 9-21 in AM 1tab ity of tablet 00:00: in [facility] Medical Branch bumetanide 0 Yes [id number] Take 2tabs [facility] 0.5 mg 9-21 in AM 1tab ity of tablet 00:00: in [place] [address] Medical Branch bumetanide 0 Yes [id number] Take 2tabs [facility] 0.5 mg 9-21 in AM 1tab ity of tablet 00:00: in [place] [address] Medical Branch bumetanide 0 Yes [id number] Take 2tabs [facility] 0.5 mg 9-21 in AM 1tab ity of tablet 00:00: in [place] [address] Medical Branch bumetanide 0 Yes [id number] Take 2tabs [facility] 0.5 mg 9-21 in AM 1tab ity of tablet 00:00: in [place] [address] Medical Branch bumetanide 0 Yes [id number] Take 2tabs [facility] 0.5 mg 9-21 in AM 1tab ity of tablet 00:00: in [place] [address] Medical Branch bumetanide 0 Yes [id number] Take 2tabs [facility] 0.5 mg 9-21 in AM 1tab ity of tablet 00:00: in [place] [address] Medical Branch bumetanide 0 Yes [id number] Take 2tabs [facility] 0.5 mg 9-21 in AM 1tab ity of tablet 00:00: in [place] [address] Medical Branch bumetanide 0 Yes [id number] Take 2tabs [facility] 0.5 mg 9-21 in AM 1tab ity of tablet 00:00: in [place] [address] Medical Branch bumetanide 0 Yes [id number] Take 2tabs [facility] 0.5 mg 9-21 in AM 1tab ity of tablet 00:00: in [place] [address] Medical Branch bumetanide Yes [id number] Take 2tabs [facility] 0.5 mg 9-21 in AM 1tab ity of tablet 00:00: in [place] [address] Medical Branch bumetanide Yes [id number] Take 2tabs [facility] 0.5 mg 9-21 in AM 1tab ity of tablet 00:00: in [place] [address] Medical Branch bumetanide Yes [id number] Take 2tabs [facility] 0.5 mg 9-21 in AM 1tab ity of tablet 00:00: in [place] [address] Medical Branch bumetanide Yes [id number] Take 2tabs [facility] 0.5 mg 9-21 in AM 1tab ity of tablet 00:00: in [place] [address] Medical Branch bumetanide Yes [id number] Take 2tabs [facility] 0.5 mg 9-21 in AM 1tab ity of tablet 00:00: in [place] [address] Medical Branch bumetanide Yes [id number] Take 2tabs [facility] 0.5 mg 9-21 in AM 1tab ity of tablet 00:00: in [place] [address] Medical Branch bumetanide Yes [id number] Take 2tabs [facility] 0.5 mg 9-21 in AM 1tab ity of tablet 00:00: in [place] [address] Medical Branch bumetanide Yes [id number] Take 2tabs [facility] 0.5 mg 9-21 in AM 1tab ity of tablet 00:00: in [place] [address] Medical Branch bumetanide Yes [id number] Take 2tabs [facility] 0.5 mg 9-21 in AM 1tab ity of tablet 00:00: in [place] [address] Medical Branch bumetanide 0 Yes [id number] Take 2tabs [facility] 0.5 mg 9-21 in AM 1tab ity of tablet 00:00: in [place] [address] Medical Branch bumetanide 0 Yes [id number] Take 2tabs [facility] 0.5 mg 9-21 in AM 1tab ity of tablet 00:00: in [place] [address] Medical Branch bumetanide 0 Yes [id number] Take 2tabs [facility] 0.5 mg 9-21 in AM 1tab ity of tablet 00:00: in [place] [address] Medical Branch bumetanide 0 Yes [id number] Take 2tabs [facility] 0.5 mg 9-21 in AM 1tab ity of tablet 00:00: in [place] [address] Medical [place] bumetanide 0 Yes [id number] Take 2tabs [facility] 0.5 mg 9-21 in AM 1tab ity of tablet 00:00: in [place] [address] Medical Branch bumetanide 0 Yes [id number] Take 2tabs [facility] 0.5 mg 9-21 in AM 1tab ity of tablet 00:00: in [place] [address] Medical Branch bumetanide 0 Yes [id number] Take 2tabs [facility] 0.5 mg 9-21 in AM 1tab ity of tablet 00:00: in [address] bumetanide 0 Yes [id number] Take 2tabs [facility] 0.5 mg 9-21 in AM 1tab ity of tablet 00:00: in [place] [address] Medical Branch bumetanide 0 Yes [id number] Take 2tabs [facility] 0.5 mg 9-21 in AM 1tab ity of tablet 00:00: in [place] [address] Medical Branch bumetanide 0 Yes [id number] Take 2tabs [facility] 0.5 mg 9-21 in AM 1tab ity of tablet 00:00: in [address] Branch bumetanide 0 Yes [id number] Take 2tabs [facility] 0.5 mg 9-21 in AM 1tab ity of tablet 00:00: in [address] Branch bumetanide 0 Yes [id number] Take 2tabs [facility] 0.5 mg 9-21 in AM 1tab ity of tablet 00:00: in [place] [address] Medical Branch bumetanide 0 Yes [id number] Take 2tabs [facility] 0.5 mg 9-21 in AM 1tab ity of tablet 00:00: in [place] [address] Medical [place] bumetanide 0 Yes [id number] Take 2tabs [facility] 0.5 mg 9-21 in AM 1tab ity of tablet 00:00: in [place] 00 Medical Branch bumetanide 2021-0 Yes [id number] Take 2tabs [facility] 0.5 mg 9-21 in AM 1tab ity of tablet 00:00: in PM [place] [facility] Branch bumetanide 2021-0 Yes [id number] Take 2tabs [facility] 0.5 mg 9-21 in AM 1tab ity of tablet 00:00: in PM [place] [facility] Branch bumetanide 2021-0 Yes [id number] Take 2tabs [facility] 0.5 mg 9-21 in AM 1tab ity of tablet 00:00: in PM [place] 00 Medical Branch bumetanide 2021-0 3- No [id number] Take 2tabs [facility] 0.5 mg 9-21 01-10 in AM 1tab ity of tablet 00:00: 00:00 in [facility] 00 :00 Medical Branch cranberry Yes [...] 13:05: mouth [place] 250-30-50 53 daily. Medical mg-mg-amrilyn Branch on Tab alpha Yes 200mg Take [...] 13:05: mouth [place] 250-30-50 53 daily. Medical mg-mg-amrilyn Branch on Tab alpha 0 Yes 200mg [...] capsule 53 daily. Medical Branch LANTUS Yes [id number] INJECT 53 Un godfrey SOLOSTAR 9-09 UNITS ity of U-100 00:00: SUBCUTANEO [place] INSULIN 100 00 USLY TWICE Me dical unit/mL (3 DAILY Branch mL) injection LANTUS Yes [id number] INJECT 53 Un godfrey SOLOSTAR 9-09 UNITS ity of U-100 00:00: SUBCUTANEO [place] INSULIN 100 00 USLY TWICE Me dical unit/mL (3 DAILY Branch mL) injection LANTUS Yes [id number] INJECT 53 Un [place] SOLOSTAR 9-09 UNITS ity of U-100 00:00: SUBCUTANEO [place] INSULIN 100 00 USLY TWICE Me dical unit/mL (3 DAILY Branch mL) injection LANTUS Yes [id number] INJECT 53 Un [place] SOLOSTAR 9-09 UNITS ity of U-100 00:00: SUBCUTANEO [place] INSULIN 100 00 USLY TWICE Me dical unit/mL (3 DAILY Branch mL) injection LANTUS Yes [id number] INJECT 53 Un [place] SOLOSTAR 9-09 UNITS ity of U-100 00:00: SUBCUTANEO [place] INSULIN 100 00 USLY TWICE Me dical unit/mL (3 DAILY Branch mL) injection LANTUS Yes [id number] INJECT 53 Un [place] SOLOSTAR 9-09 UNITS ity of U-100 00:00: SUBCUTANEO [place] INSULIN 100 00 USLY TWICE Me dical unit/mL (3 DAILY Branch mL) injection LANTUS Yes [id number] INJECT 53 Un [place] SOLOSTAR 9-09 UNITS ity of U-100 00:00: SUBCUTANEO [place] INSULIN 100 00 USLY TWICE Me dical unit/mL (3 DAILY Branch mL) injection LANTUS Yes [id number] INJECT 53 Un [place] SOLOSTAR 9-09 UNITS ity of U-100 00:00: SUBCUTANEO [place] INSULIN 100 00 USLY TWICE Me dical unit/mL (3 DAILY Branch mL) injection LANTUS Yes [id number] INJECT 53 Un [place] SOLOSTAR 9-09 UNITS ity of U-100 00:00: SUBCUTANEO [place] INSULIN 100 00 USLY TWICE Me dical unit/mL (3 DAILY Branch mL) injection LANTUS Yes [id number] INJECT 53 Un [place] SOLOSTAR 9-09 UNITS ity of U-100 00:00: SUBCUTANEO [place] INSULIN 100 00 USLY TWICE Me dical unit/mL (3 DAILY Branch mL) injection LANTUS Yes [id number] INJECT 53 Un [place] SOLOSTAR 9-09 UNITS ity of U-100 00:00: SUBCUTANEO [place] INSULIN 100 00 USLY TWICE Me dical unit/mL (3 DAILY Branch mL) injection LANTUS Yes [id number] INJECT 53 Un god[place] SOLOSTAR 9-09 UNITS ity of U-100 00:00: SUBCUTANEO [place] INSULIN 100 00 USLY TWICE Me dical unit/mL (3 DAILY Branch mL) injection LANTUS Yes [id number] INJECT 53 Un godfrey SOLOSTAR 9-09 UNITS ity of U-100 00:00: SUBCUTANEO [place] INSULIN 100 00 USLY TWICE Me dical unit/mL (3 DAILY Branch mL) injection LANTUS Yes [id number] INJECT 53 Un godfrey SOLOSTAR 9-09 UNITS ity of U-100 00:00: SUBCUTANEO [place] INSULIN 100 00 USLY TWICE Me dical unit/mL (3 DAILY Branch mL) injection LANTUS 2021- No [id number] INJECT 53 U nivers SOLOSTAR 9-09 10-20 UNITS ity of U-100 00:00: 00:00 SUBCUTANEO [place] INSULIN 100 00 :00 USLY TWICE Me dical unit/mL (3 DAILY Branch mL) injection LANTUS 2021- No [id number] INJECT 53 U nivasmita SOLOSTAR 07-15 10-20 UNITS ity of U-100 00:00: 00:00 SUBCUTANEO [place] INSULIN 100 00 :00 USLY TWICE Me dical unit/mL (3 DAILY Branch mL) injection isosorbide 2021- No [id number] 30mg Take 1 [facility] mononitrate 07-12 tablet by it y of 30 mg 24 hr 00:00: 04:59 mouth in [place] tablet 00 :00 the Medical morning Branch for 30 days. isosorbide 2021- No [id number] 30mg Take 1 [facility] mononitrate 07-12 tablet by it y of 30 mg 24 hr 00:00: 04:59 mouth in [place] tablet 00 :00 the Medical morning Branch for 30 days. isosorbide 2021- No [id number] 30mg Take 1 [facility] mononitrate 07-12 tablet by it y of 30 mg 24 hr 00:00: 04:59 mouth in [place] tablet 00 :00 the Medical morning Branch for 30 days. isosorbide 2021- No [id number] 30mg Take 1 [facility] mononitrate 07-12 tablet by it y of 30 mg 24 hr 00:00: 04:59 mouth in [place] tablet 00 :00 the Medical morning Branch for 30 days. isosorbide 2021- No [id number] 30mg Take 1 [facility] mononitrate 07-12 tablet by it y of 30 mg 24 hr 00:00: 04:59 mouth in [place] tablet 00 :00 the Medical morning Branch for 30 days. isosorbide 2021- No [id number] 30mg Take 1 [facility] mononitrate 07-12-07 tablet by it y of 30 mg 24 hr 00:00: 04:59 mouth in [place] tablet 00 :00 the Medical morning Branch for 30 days. isosorbide 2021- No [id number] 30mg Take 1 [facility] mononitrate 9-06 10-07 tablet by it y of 30 mg 24 hr 00:00: 04:59 mouth in [place] tablet 00 :00 the Medical morning Branch for 30 days. cholecalcif No [id number] 1000U Take 1 [facility] sri, 07-12 tablet by ity of vitamin D3, 00:00: 04:59 mouth in [place] 25 mcg 00 :00 the Medical (1,000 morning Branch unit) for 8 tablet days. zinc No [id number] 50mg Take 1 Unive rs sulfate 50 07-12 capsule by it y of mg zinc 00:00: 04:59 mouth in [place] (220 mg) 00 :00 the Medical capsule morning Branch for 8 days. cholecalcif No [id number] 1000U Take 1 [facility] sri, 07-12 tablet by ity of vitamin D3, 00:00: 04:59 mouth in [place] 25 mcg 00 :00 the Medical (1,000 morning Branch unit) for 8 tablet days. zinc No [id number] 50mg Take 1 Unive rs sulfate 50 07-12 capsule by it y of mg zinc 00:00: 04:59 mouth in [place] (220 mg) 00 :00 the Medical capsule morning Branch for 8 days. cholecalcif No [id number] 1000U Take 1 [facility] sri, 07-12 tablet by ity of vitamin D3, 00:00: 04:59 mouth in [place] 25 mcg 00 :00 the Medical (1,000 morning Branch unit) for 8 tablet days. zinc No [id number] 50mg Take 1 Unive rs sulfate 50 07-12 capsule by it y of mg zinc 00:00: 04:59 mouth in [place] (220 mg) 00 :00 the Medical capsule morning Branch for 8 days. bumetanide No [id number] .5mg Take 1 [facility] 0.5 mg 07-11 tablet by ity of tablet 00:00: 04:59 mouth [place] 00 :00 every Medical morning Branch and evening for 30 days. bumetanide No [id number] .5mg Take 1 [facility] 0.5 mg 07-11 tablet by ity of tablet 00:00: 04:59 mouth [place] 00 :00 every Medical morning Branch and evening for 30 days. bumetanide 2021- No [id number] .5mg Take 1 [facility] 0.5 mg 07-11 tablet by ity of tablet 00:00: 04:59 mouth [place] 00 :00 every Medical morning Branch and evening for 30 days. bumetanide 2021- No [id number] .5mg Take 1 [facility] 0.5 mg 07-11 tablet by ity of tablet 00:00: 00:00 mouth [place] 00 :00 every Medical morning Branch and evening for 30 days. ascorbic 2021- No [id number] 500mg Take 1 [facility] acid, 07-11 tablet by ity of vitamin C, 00:00: 04:59 mouth in [place] 500 mg 00 :00 the Medical tablet morning Branch and 1 tablet in the evening. Do all this for 8 days. ascorbic 2021- No [id number] 500mg Take 1 [facility] acid, 07-11 tablet by ity of vitamin C, 00:00: 04:59 mouth in [place] 500 mg 00 :00 the Medical tablet morning Branch and 1 tablet in the evening. Do all this for 8 days. ascorbic 2021- No [id number] 500mg Take 1 [facility] acid, 07-11 tablet by ity of vitamin C, 00:00: 04:59 mouth in [place] 500 mg 00 :00 the Medical tablet morning Branch and 1 tablet in the evening. Do all this for 8 days. gabapentin Yes [id number] TAKE 1 & [facility] 600 mg 8-23 1/2 (ONE & ity of tablet 00:00: ONE-HALF) [place] 00 TABLETS BY Medical MOUTH Branch THREE TIMES DAILY gabapentin 2021-0 Yes [id number] TAKE 1 & [facility] 600 mg 8-23 1/2 (ONE & ity of tablet 00:00: ONE-HALF) [place] 00 TABLETS BY Medical MOUTH Branch THREE TIMES DAILY gabapentin 2021-0 Yes [id number] TAKE 1 & [facility] 600 mg 8-23 1/2 (ONE & ity of tablet 00:00: ONE-HALF) [place] 00 TABLETS BY Medical MOUTH Branch THREE TIMES DAILY gabapentin 2022-0 Yes [id number] TAKE 1 & [facility] 600 mg 8-23 1/2 (ONE & ity of tablet 00:00: ONE-HALF) [place] 00 TABLETS BY Medical MOUTH Branch THREE TIMES DAILY gabapentin 2022-0 Yes [id number] TAKE 1 & [facility] 600 mg 8-23 1/2 (ONE & ity of tablet 00:00: ONE-HALF) [place] 00 TABLETS BY Medical MOUTH Branch THREE TIMES DAILY gabapentin 2022-0 Yes [id number] TAKE 1 & [facility] 600 mg 8-23 1/2 (ONE & ity of tablet 00:00: ONE-HALF) [place] 00 TABLETS BY Medical MOUTH Branch THREE TIMES DAILY gabapentin 2022-0 Yes [id number] TAKE 1 & [facility] 600 mg 8-23 1/2 (ONE & ity of tablet 00:00: ONE-HALF) [place] 00 TABLETS BY Medical MOUTH Branch THREE TIMES DAILY gabapentin 2022-0 Yes [id number] TAKE 1 & [facility] 600 mg 8-23 1/2 (ONE & ity of tablet 00:00: ONE-HALF) [place] 00 TABLETS BY Medical MOUTH Branch THREE TIMES DAILY gabapentin 2022-0 Yes [id number] TAKE 1 & [facility] 600 mg 8-23 1/2 (ONE & ity of tablet 00:00: ONE-HALF) [place] 00 TABLETS BY Medical MOUTH Branch THREE TIMES DAILY gabapentin 2022-0 Yes [id number] TAKE 1 & [facility] 600 mg 8-23 1/2 (ONE & ity of tablet 00:00: ONE-HALF) [place] 00 TABLETS BY Medical MOUTH Branch THREE TIMES DAILY gabapentin 2022-0 Yes [id number] TAKE 1 & [facility] 600 mg 8-23 1/2 (ONE & ity of tablet 00:00: ONE-HALF) [place] 00 TABLETS BY Medical MOUTH Branch THREE TIMES DAILY gabapentin 2022-0 Yes [id number] TAKE 1 & [facility] 600 mg 8-23 1/2 (ONE & ity of tablet 00:00: ONE-HALF) [place] 00 TABLETS BY Medical MOUTH Branch THREE TIMES DAILY gabapentin 2022-0 Yes [id number] TAKE 1 & [facility] 600 mg 8-23 1/2 (ONE & ity of tablet 00:00: ONE-HALF) [place] 00 TABLETS BY Medical MOUTH Branch THREE TIMES DAILY gabapentin 2022-0 Yes [id number] TAKE 1 & [facility] 600 mg 8-23 1/2 (ONE & ity of tablet 00:00: ONE-HALF) [place] 00 TABLETS BY Medical MOUTH Branch THREE TIMES DAILY gabapentin 2022-0 Yes [id number] TAKE 1 & [facility] 600 mg 8-23 1/2 (ONE & ity of tablet 00:00: ONE-HALF) [place] 00 TABLETS BY Medical MOUTH Branch THREE TIMES DAILY gabapentin 2022-0 Yes [id number] TAKE 1 & [facility] 600 mg 8-23 1/2 (ONE & ity of tablet 00:00: ONE-HALF) [place] 00 TABLETS BY Medical MOUTH Branch THREE TIMES DAILY gabapentin 2022-0 Yes [id number] TAKE 1 & [facility] 600 mg 8-23 1/2 (ONE & ity of tablet 00:00: ONE-HALF) [place] 00 TABLETS BY Medical MOUTH Branch THREE TIMES DAILY gabapentin 2022-0 Yes [id number] TAKE 1 & [facility] 600 mg 8-23 1/2 (ONE & ity of tablet 00:00: ONE-HALF) [place] 00 TABLETS BY Medical MOUTH Branch THREE TIMES DAILY gabapentin 2022-0 Yes [id number] TAKE 1 & [facility] 600 mg 8-23 1/2 (ONE & ity of tablet 00:00: ONE-HALF) [place] 00 TABLETS BY Medical MOUTH Branch THREE TIMES DAILY gabapentin 2022-0 Yes [id number] TAKE 1 & [facility] 600 mg 8-23 1/2 (ONE & ity of tablet 00:00: ONE-HALF) [place] 00 TABLETS BY Medical MOUTH Branch THREE TIMES DAILY gabapentin 2022-0 Yes [id number] TAKE 1 & [facility] 600 mg 8-23 1/2 (ONE & ity of tablet 00:00: ONE-HALF) [place] 00 TABLETS BY Medical MOUTH Branch THREE TIMES DAILY gabapentin 2022-0 Yes [id number] TAKE 1 & [facility] 600 mg 8-23 1/2 (ONE & ity of tablet 00:00: ONE-HALF) [place] 00 TABLETS BY Medical MOUTH Branch THREE TIMES DAILY gabapentin 2022-0 Yes [id number] TAKE 1 & [facility] 600 mg 8-23 1/2 (ONE & ity of tablet 00:00: ONE-HALF) [place] 00 TABLETS BY Medical MOUTH Branch THREE TIMES DAILY gabapentin 2022-0 Yes [id number] TAKE 1 & [facility] 600 mg 8-23 1/2 (ONE & ity of tablet 00:00: ONE-HALF) [place] 00 TABLETS BY Medical MOUTH Branch THREE TIMES DAILY gabapentin 2022-0 Yes [id number] TAKE 1 & [facility] 600 mg 8-23 1/2 (ONE & ity of tablet 00:00: ONE-HALF) [place] 00 TABLETS BY Medical MOUTH Branch THREE TIMES DAILY gabapentin 2022-0 Yes [id number] TAKE 1 & [facility] 600 mg 8-23 1/2 (ONE & ity of tablet 00:00: ONE-HALF) [place] 00 TABLETS BY Medical MOUTH Branch THREE TIMES DAILY gabapentin 2022-0 Yes [id number] TAKE 1 & [facility] 600 mg 8-23 1/2 (ONE & ity of tablet 00:00: ONE-HALF) [place] 00 TABLETS BY Medical MOUTH Branch THREE TIMES DAILY gabapentin 2022-0 Yes [id number] TAKE 1 & [facility] 600 mg 8-23 1/2 (ONE & ity of tablet 00:00: ONE-HALF) [place] 00 TABLETS BY Medical MOUTH Branch THREE TIMES DAILY gabapentin 2022-0 Yes [id number] TAKE 1 & [facility] 600 mg 8-23 1/2 (ONE & ity of tablet 00:00: ONE-HALF) [place] 00 TABLETS BY Medical MOUTH Branch THREE TIMES DAILY gabapentin 2022-0 Yes [id number] TAKE 1 & [facility] 600 mg 8-23 1/2 (ONE & ity of tablet 00:00: ONE-HALF) [place] 00 TABLETS BY Medical MOUTH Branch THREE TIMES DAILY gabapentin 2022-0 Yes [id number] TAKE 1 & [facility] 600 mg 8-23 1/2 (ONE & ity of tablet 00:00: ONE-HALF) [place] 00 TABLETS BY Medical MOUTH Branch THREE TIMES DAILY gabapentin 2022-0 Yes [id number] TAKE 1 & [facility] 600 mg 8-23 1/2 (ONE & ity of tablet 00:00: ONE-HALF) [place] 00 TABLETS BY Medical MOUTH Branch THREE TIMES DAILY gabapentin 2022-0 Yes [id number] TAKE 1 & [facility] 600 mg 8-23 1/2 (ONE & ity of tablet 00:00: ONE-HALF) [place] 00 TABLETS BY Medical MOUTH Branch THREE TIMES DAILY gabapentin 2022-0 Yes [id number] TAKE 1 & [facility] 600 mg 8-23 1/2 (ONE & ity of tablet 00:00: ONE-HALF) [place] 00 TABLETS BY Medical MOUTH Branch THREE TIMES DAILY gabapentin 2022-0 Yes [id number] TAKE 1 & [facility] 600 mg 8-23 1/2 (ONE & ity of tablet 00:00: ONE-HALF) 00 TABLETS BY Medical MOUTH Branch THREE TIMES DAILY gabapentin 2022-0 Yes [id number] TAKE 1 & [facility] 600 mg 8-2 (ONE & ity of tablet 00:00: ONE-HALF) [place] 00 TABLETS BY Medical MOUTH Branch THREE TIMES DAILY gabapentin 2022-0 2022- No [id number] TAKE 1 & [facility] 600 mg 8-28 09- 12 (ONE & ity of tablet 00:00: 00:00 ONE-HALF) [place] 00 :00 TABLETS BY Medical MOUTH Branch THREE TIMES DAILY gabapentin 2022-0 2022- No [id number] TAKE 1 & [facility] 600 mg 8-28 09- 12 (ONE & ity of tablet 00:00: 00:00 ONE-HALF) [place] 00 :00 TABLETS BY Medical MOUTH Branch THREE TIMES DAILY gabapentin 2022-0 2022- No [id number] TAKE 1 & [facility] 600 mg 8-10-012 (ONE & ity of tablet 00:00: 00:00 ONE-HALF) [place] 00 :00 TABLETS BY Medical MOUTH Branch THREE TIMES DAILY carvediloL 2022-0 Yes [id number] 12.5mg Take 1 [facility] 12.5 mg 7-12 tablet by ity of tablet 00:00: mouth in [address] and 1 tablet in the evening. Take with meals. carvediloL 2022-0 Yes [id number] 12.5mg Take 1 [facility] 12.5 mg 7-12 tablet by ity of tablet 00:00: mouth in [address] morning [place] and 1 tablet in the evening. Take with meals. carvediloL 2022-0 Yes [id number] 12.5mg Take 1 [facility] 12.5 mg 7-12 tablet by ity of tablet 00:00: mouth in [address] morning [place] and 1 tablet in the evening. Take with meals. carvediloL 2022-0 Yes [id number] 12.5mg Take 1 [facility] 12.5 mg 7-12 tablet by ity of tablet 00:00: mouth in [address] morning [place] and 1 tablet in the evening. Take with meals. carvediloL 2022-0 Yes [id number] 12.5mg Take 1 [facility] 12.5 mg 7-12 tablet by ity of tablet 00:00: mouth in [address] morning [place] and 1 tablet in the evening. Take with meals. carvediloL 2022-0 Yes [id number] 12.5mg Take 1 [facility] 12.5 mg 7-12 tablet by ity of tablet 00:00: mouth in [address] and 1 tablet in the evening. Take with meals. carvediloL 2022-0 Yes [id number] 12.5mg Take 1 [facility] 12.5 mg 7-12 tablet by ity of tablet 00:00: mouth in [address] and 1 tablet in the evening. Take with meals. carvediloL 2022-0 Yes [id number] 12.5mg Take 1 [facility] 12.5 mg 7-12 tablet by ity of tablet 00:00: mouth in [address] and 1 tablet in the evening. Take with meals. carvediloL 2022-0 Yes [id number] 12.5mg Take 1 [facility] 12.5 mg 7-12 tablet by ity of tablet 00:00: mouth in [address] and 1 tablet in the evening. Take with meals. carvediloL 2022-0 Yes [id number] 12.5mg Take 1 [facility] 12.5 mg 7-12 tablet by ity of tablet 00:00: mouth in [address] and 1 tablet in the evening. Take with meals. carvediloL 2022-0 Yes [id number] 12.5mg Take 1 [facility] 12.5 mg 7-12 tablet by ity of tablet 00:00: mouth in [address] and 1 tablet in the evening. Take with meals. carvediloL 2022-0 Yes [id number] 12.5mg Take 1 [facility] 12.5 mg 7-12 tablet by ity of tablet 00:00: mouth in [address] and 1 tablet in the evening. Take with meals. carvediloL 2022-0 Yes [id number] 12.5mg Take 1 [facility] 12.5 mg 7-12 tablet by ity of tablet 00:00: mouth in [address] and 1 tablet in the evening. Take with meals. carvediloL 2022-0 Yes [id number] 12.5mg Take 1 [facility] 12.5 mg 7-12 tablet by ity of tablet 00:00: mouth in [address] morning [place] and 1 tablet in the evening. Take with meals. carvediloL 2022-0 Yes [id number] 12.5mg Take 1 [facility] 12.5 mg 7-12 tablet by ity of tablet 00:00: mouth in [address] morning [place] and 1 tablet in the evening. Take with meals. carvediloL 2022-0 Yes [id number] 12.5mg Take 1 [facility] 12.5 mg 7-12 tablet by ity of tablet 00:00: mouth in [address] and 1 tablet in the evening. Take with meals. carvediloL 2022-0 Yes [id number] 12.5mg Take 1 [facility] 12.5 mg 7-12 tablet by ity of tablet 00:00: mouth in [address] and 1 tablet in the evening. Take with meals. carvediloL 2022-0 Yes [id number] 12.5mg Take 1 [facility] 12.5 mg 7-12 tablet by ity of tablet 00:00: mouth in [address] and 1 tablet in the evening. Take with meals. carvediloL 2022-0 Yes [id number] 12.5mg Take 1 [facility] 12.5 mg 7-12 tablet by ity of tablet 00:00: mouth in [address] and 1 tablet in the evening. Take with meals. carvediloL 2022-0 Yes [id number] 12.5mg Take 1 [facility] 12.5 mg 7-12 tablet by ity of tablet 00:00: mouth in [address] and 1 tablet in the evening. Take with meals. carvediloL 2022-0 Yes [id number] 12.5mg Take 1 [facility] 12.5 mg 7-12 tablet by ity of tablet 00:00: mouth in [address] morning [place] and 1 tablet in the evening. Take with meals. carvediloL 2022-0 Yes [id number] 12.5mg Take 1 [facility] 12.5 mg 7-12 tablet by ity of tablet 00:00: mouth in [address] and 1 tablet in the evening. Take with meals. carvediloL 2022-0 Yes [id number] 12.5mg Take 1 [facility] 12.5 mg 7-12 tablet by ity of tablet 00:00: mouth in [place] 00 the Medical morning Branch and 1 tablet in the evening. Take with meals. carvediloL 2022-0 Yes [id number] 12.5mg Take 1 [facility] 12.5 mg 7-12 tablet by ity of tablet 00:00: mouth in [place] [address] the [facility] morning [place] and 1 tablet in the evening. Take with meals. carvediloL 2022-0 Yes [id number] 12.5mg Take 1 [facility] 12.5 mg 7-12 tablet by ity of tablet 00:00: mouth in [place] [address] the [facility] morning [place] and 1 tablet in the evening. Take with meals. carvediloL 2022-0 Yes [id number] 12.5mg Take 1 [facility] 12.5 mg 7-12 tablet by ity of tablet 00:00: mouth in [place] [address] the [facility] morning [place] and 1 tablet in the evening. Take with meals. carvediloL 2022-0 Yes [id number] 12.5mg Take 1 [facility] 12.5 mg 7-12 tablet by ity of tablet 00:00: mouth in [place] [address] the [facility] morning [place] and 1 tablet in the evening. Take with meals. carvediloL 2022-0 Yes [id number] 12.5mg Take 1 [facility] 12.5 mg 7-12 tablet by ity of tablet 00:00: mouth in [address] morning [place] and 1 tablet in the evening. Take with meals. carvediloL 2022-0 Yes [id number] 12.5mg Take 1 [facility] 12.5 mg 7-12 tablet by ity of tablet 00:00: mouth in [address] morning [place] and 1 tablet in the evening. Take with meals. carvediloL 2022-0 Yes [id number] 12.5mg Take 1 [facility] 12.5 mg 7-12 tablet by ity of tablet 00:00: mouth in [address] morning [place] and 1 tablet in the evening. Take with meals. carvediloL 2022-0 Yes [id number] 12.5mg Take 1 [facility] 12.5 mg 7-12 tablet by ity of tablet 00:00: mouth in [address] morning [place] and 1 tablet in the evening. Take with meals. carvediloL 2022-0 Yes [id number] 12.5mg Take 1 [facility] 12.5 mg 7-12 tablet by ity of tablet 00:00: mouth in [address] morning Branch and 1 tablet in the evening. Take with meals. carvediloL 2022-0 Yes [id number] 12.5mg Take 1 [facility] 12.5 mg 7-12 tablet by ity of tablet 00:00: mouth in [place] [address] the Medical morning [facility] and 1 tablet in the evening. Take with meals. carvediloL 2022-0 Yes [id number] 12.5mg Take 1 [facility] 12.5 mg 7-12 tablet by ity of tablet 00:00: mouth in [place] [address] the [facility] morning Branch and 1 tablet in the evening. Take with meals. carvediloL 2022-0 Yes [id number] 12.5mg Take 1 [facility] 12.5 mg 7-12 tablet by ity of tablet 00:00: mouth in [place] [address] the [facility] morning Branch and 1 tablet in the evening. Take with meals. carvediloL 2022-0 Yes [id number] 12.5mg Take 1 [facility] 12.5 mg 7-12 tablet by ity of tablet 00:00: mouth in [place] [address] the [facility] morning [place] and 1 tablet in the evening. Take with meals. carvediloL 2022-0 Yes [id number] 12.5mg Take 1 [facility] 12.5 mg 7-12 tablet by ity of tablet 00:00: mouth in [place] [address] the [facility] morning [place] and 1 tablet in the evening. Take with meals. carvediloL 2022-0 Yes [id number] 12.5mg Take 1 [facility] 12.5 mg 7-12 tablet by ity of tablet 00:00: mouth in [place] [address] the [facility] morning [place] and 1 tablet in the evening. Take with meals. carvediloL 2022-0 Yes [id number] 12.5mg Take 1 [facility] 12.5 mg 7-12 tablet by ity of tablet 00:00: mouth in [place] [address] the [facility] morning [place] and 1 tablet in the evening. Take with meals. carvediloL 2022-0 Yes [id number] 12.5mg Take 1 [facility] 12.5 mg 7-12 tablet by ity of tablet 00:00: mouth in [place] [address] the [facility] morning [place] and 1 tablet in the evening. Take with meals. carvediloL 2022-0 Yes [id number] 12.5mg Take 1 [facility] 12.5 mg 7-12 tablet by ity of tablet 00:00: mouth in [address] morning [place] and 1 tablet in the evening. Take with meals. carvediloL 2022-0 Yes [id number] 12.5mg Take 1 [facility] 12.5 mg 7-12 tablet by ity of tablet 00:00: mouth in [place] [address] the [facility] morning [place] and 1 tablet in the evening. Take with meals. carvediloL 2022-0 Yes [id number] 12.5mg Take 1 [facility] 12.5 mg 7-12 tablet by ity of tablet 00:00: mouth in [place] [address] the [facility] morning [place] and 1 tablet in the evening. Take with meals. carvediloL 2022-0 Yes [id number] 12.5mg Take 1 [facility] 12.5 mg 7-12 tablet by ity of tablet 00:00: mouth in [address] morning [place] and 1 tablet in the evening. Take with meals. carvediloL 2-0 Yes [id number] 12.5mg Take 1 [facility] 12.5 mg 7-12 tablet by ity of tablet 00:00: mouth in [address] and 1 tablet in the evening. Take with meals. carvediloL 2-0 Yes [id number] 12.5mg Take 1 [facility] 12.5 mg 7-12 tablet by ity of tablet 00:00: mouth in [address] and 1 tablet in the evening. Take with meals. carvediloL 2-0 Yes [id number] 12.5mg Take 1 [facility] 12.5 mg 7-12 tablet by ity of tablet 00:00: mouth in [address] morning [place] and 1 tablet in the evening. Take with meals. carvediloL 2-0 Yes [id number] 12.5mg Take 1 [facility] 12.5 mg 7-12 tablet by ity of tablet 00:00: mouth in [address] and 1 tablet in the evening. Take with meals. carvediloL 2022-0 Yes [id number] 12.5mg Take 1 [facility] 12.5 mg 7-12 tablet by ity of tablet 00:00: mouth in [address] and 1 tablet in the evening. Take with meals. carvediloL 2022-0 Yes [id number] 12.5mg Take 1 [facility] 12.5 mg 7-12 tablet by ity of tablet 00:00: mouth in [address] and 1 tablet in the evening. Take with meals. carvediloL 2022-0 Yes [id number] 12.5mg Take 1 [facility] 12.5 mg 7-12 tablet by ity of tablet 00:00: mouth in [place] [address] the [facility] morning [place] and 1 tablet in the evening. Take with meals. carvediloL 2022-0 Yes [id number] 12.5mg Take 1 [facility] 12.5 mg 7-12 tablet by ity of tablet 00:00: mouth in [place] [address] the [facility] morning [place] and 1 tablet in the evening. Take with meals. carvediloL 2022-0 Yes [id number] 12.5mg Take 1 [facility] 12.5 mg 7-12 tablet by ity of tablet 00:00: mouth in [address] morning [place] and 1 tablet in the evening. Take with meals. carvediloL 2-0 Yes [id number] 12.5mg Take 1 [facility] 12.5 mg 7-12 tablet by ity of tablet 00:00: mouth in [address] morning [place] and 1 tablet in the evening. Take with meals. carvediloL 2022-0 Yes [id number] 12.5mg Take 1 [facility] 12.5 mg 7-12 tablet by ity of tablet 00:00: mouth in [address] and 1 tablet in the evening. Take with meals. carvediloL 2022-0 Yes [id number] 12.5mg Take 1 [facility] 12.5 mg 7-12 tablet by ity of tablet 00:00: mouth in [address] and 1 tablet in the evening. Take with meals. carvediloL 2022-0 Yes [id number] 12.5mg Take 1 [facility] 12.5 mg 7-12 tablet by ity of tablet 00:00: mouth in [address] and 1 tablet in the evening. Take with meals. carvediloL 2022-0 Yes [id number] 12.5mg Take 1 [facility] 12.5 mg 7-12 tablet by ity of tablet 00:00: mouth in [address] morning [place] and 1 tablet in the evening. Take with meals. carvediloL 2022-0 Yes [id number] 12.5mg Take 1 [facility] 12.5 mg 7-12 tablet by ity of tablet 00:00: mouth in [address] morning [place] and 1 tablet in the evening. Take with meals. carvediloL 2022-0 Yes [id number] 12.5mg Take 1 [facility] 12.5 mg 7-12 tablet by ity of tablet 00:00: mouth in [place] [address] the [facility] morning [place] and 1 tablet in the evening. Take with meals. carvediloL 2022-0 Yes [id number] 12.5mg Take 1 [facility] 12.5 mg 7-12 tablet by ity of tablet 00:00: mouth in [place] [address] the [facility] morning [place] and 1 tablet in the evening. Take with meals. carvediloL 2022-0 Yes [id number] 12.5mg Take 1 [facility] 12.5 mg 7-12 tablet by ity of tablet 00:00: mouth in [place] [address] the [facility] morning [place] and 1 tablet in the evening. Take with meals. carvediloL 2-0 Yes [id number] 12.5mg Take 1 [facility] 12.5 mg 7-12 tablet by ity of tablet 00:00: mouth in [place] [address] the [facility] morning [place] and 1 tablet in the evening. Take with meals. carvediloL 2-0 Yes [id number] 12.5mg Take 1 [facility] 12.5 mg 7-12 tablet by ity of tablet 00:00: mouth in [address] morning [place] and 1 tablet in the evening. Take with meals. carvediloL 2-0 Yes [id number] 12.5mg Take 1 [facility] 12.5 mg 7-12 tablet by ity of tablet 00:00: mouth in [address] morning [place] and 1 tablet in the evening. Take with meals. carvediloL 2-0 Yes [id number] 12.5mg Take 1 [facility] 12.5 mg 7-12 tablet by ity of tablet 00:00: mouth in [address] morning [place] and 1 tablet in the evening. Take with meals. carvediloL 2022-0 Yes [id number] 12.5mg Take 1 [facility] 12.5 mg 7-12 tablet by ity of tablet 00:00: mouth in [address] morning [place] and 1 tablet in the evening. Take with meals. carvediloL 2022-0 Yes [id number] 12.5mg Take 1 [facility] 12.5 mg 7-12 tablet by ity of tablet 00:00: mouth in [address] morning [place] and 1 tablet in the evening. Take with meals. carvediloL 2022-0 Yes [id number] 12.5mg Take 1 [facility] 12.5 mg 7-12 tablet by ity of tablet 00:00: mouth in [address] morning [place] and 1 tablet in the evening. Take with meals. carvediloL 2022-0 Yes [id number] 12.5mg Take 1 [facility] 12.5 mg 7-12 tablet by ity of tablet 00:00: mouth in [address] morning [place] and 1 tablet in the evening. Take with meals. carvediloL 2022-0 Yes [id number] 12.5mg Take 1 [facility] 12.5 mg 7-12 tablet by ity of tablet 00:00: mouth in [address] morning [place] and 1 tablet in the evening. Take with meals. carvediloL 2022-0 Yes [id number] 12.5mg Take 1 [facility] 12.5 mg 7-12 tablet by ity of tablet 00:00: mouth in [address] morning [place] and 1 tablet in the evening. Take with meals. carvediloL 2-0 Yes [id number] 12.5mg Take 1 [facility] 12.5 mg 7-12 tablet by ity of tablet 00:00: mouth in [address] and 1 tablet in the evening. Take with meals. carvediloL 2022-0 Yes [id number] 12.5mg Take 1 [facility] 12.5 mg 7-12 tablet by ity of tablet 00:00: mouth in [address] and 1 tablet in the evening. Take with meals. carvediloL 2022-0 Yes [id number] 12.5mg Take 1 [facility] 12.5 mg 7-12 tablet by ity of tablet 00:00: mouth in [address] and 1 tablet in the evening. Take with meals. carvediloL 2022-0 Yes [id number] 12.5mg Take 1 [facility] 12.5 mg 7-12 tablet by ity of tablet 00:00: mouth in [address] and 1 tablet in the evening. Take with meals. carvediloL 2022-0 Yes [id number] 12.5mg Take 1 [facility] 12.5 mg 7-12 tablet by ity of tablet 00:00: mouth in [address] and 1 tablet in the evening. Take with meals. carvediloL 2022-0 Yes [id number] 12.5mg Take 1 [facility] 12.5 mg 7-12 tablet by ity of tablet 00:00: mouth in [address] morning [place] and 1 tablet in the evening. Take with meals. carvediloL 2022-0 Yes [id number] 12.5mg Take 1 [facility] 12.5 mg 7-12 tablet by ity of tablet 00:00: mouth in [place] [address] the [facility] morning [place] and 1 tablet in the evening. Take with meals. carvediloL 2022-0 Yes [id number] 12.5mg Take 1 [facility] 12.5 mg 7-12 tablet by ity of tablet 00:00: mouth in [address] morning [place] and 1 tablet in the evening. Take with meals. carvediloL 2022-0 Yes [id number] 12.5mg Take 1 [facility] 12.5 mg 7-12 tablet by ity of tablet 00:00: mouth in [address] morning [place] and 1 tablet in the evening. Take with meals. carvediloL 2022-0 Yes [id number] 12.5mg Take 1 [facility] 12.5 mg 7-12 tablet by ity of tablet 00:00: mouth in [address] morning [place] and 1 tablet in the evening. Take with meals. carvediloL 2022-0 Yes [id number] 12.5mg Take 1 [facility] 12.5 mg 7-12 tablet by ity of tablet 00:00: mouth in [address] and 1 tablet in the evening. Take with meals. carvediloL 2022-0 Yes [id number] 12.5mg Take 1 [facility] 12.5 mg 7-12 tablet by ity of tablet 00:00: mouth in [address] and 1 tablet in the evening. Take with meals. carvediloL 2022-0 Yes [id number] 12.5mg Take 1 [facility] 12.5 mg 7-12 tablet by ity of tablet 00:00: mouth in [address] morning [place] and 1 tablet in the evening. Take with meals. carvediloL 2022-0 Yes [id number] 12.5mg Take 1 [facility] 12.5 mg 7-12 tablet by ity of tablet 00:00: mouth in [address] morning [place] and 1 tablet in the evening. Take with meals. carvediloL 2022-0 Yes [id number] 12.5mg Take 1 [facility] 12.5 mg 7-12 tablet by ity of tablet 00:00: mouth in [address] morning [place] and 1 tablet in the evening. Take with meals. carvediloL 2022-0 Yes [id number] 12.5mg Take 1 [facility] 12.5 mg 7-12 tablet by ity of tablet 00:00: mouth in [address] morning [place] and 1 tablet in the evening. Take with meals. carvediloL 2022-0 Yes [id number] 12.5mg Take 1 [facility] 12.5 mg 7-12 tablet by ity of tablet 00:00: mouth in [address] morning [place] and 1 tablet in the evening. Take with meals. carvediloL 2022-0 Yes [id number] 12.5mg Take 1 [facility] 12.5 mg 7-12 tablet by ity of tablet 00:00: mouth in [address] morning [place] and 1 tablet in the evening. Take with meals. carvediloL 2022-0 Yes [id number] 12.5mg Take 1 [facility] 12.5 mg 7-12 tablet by ity of tablet 00:00: mouth in [address] morning [place] and 1 tablet in the evening. Take with meals. carvediloL 2022-0 Yes [id number] 12.5mg Take 1 [facility] 12.5 mg 7-12 tablet by ity of tablet 00:00: mouth in [address] and 1 tablet in the evening. Take with meals. carvediloL 2022-0 Yes [id number] 12.5mg Take 1 [facility] 12.5 mg 7-12 tablet by ity of tablet 00:00: mouth in [address] and 1 tablet in the evening. Take with meals. carvediloL 2022-0 Yes [id number] 12.5mg Take 1 [facility] 12.5 mg 7-12 tablet by ity of tablet 00:00: mouth in [address] morning [place] and 1 tablet in the evening. Take with meals. carvediloL 2022-0 Yes [id number] 12.5mg Take 1 [facility] 12.5 mg 7-12 tablet by ity of tablet 00:00: mouth in [address] morning [place] and 1 tablet in the evening. Take with meals. carvediloL 2022-0 Yes [id number] 12.5mg Take 1 [facility] 12.5 mg 7-12 tablet by ity of tablet 00:00: mouth in [address] morning [place] and 1 tablet in the evening. Take with meals. carvediloL 2022-0 Yes [id number] 12.5mg Take 1 [facility] 12.5 mg 7-12 tablet by ity of tablet 00:00: mouth in [address] and 1 tablet in the evening. Take with meals. carvediloL 2022-0 Yes [id number] 12.5mg Take 1 [facility] 12.5 mg 7-12 tablet by ity of tablet 00:00: mouth in [address] and 1 tablet in the evening. Take with meals. carvediloL 2022-0 Yes [id number] 12.5mg Take 1 [facility] 12.5 mg 7-12 tablet by ity of tablet 00:00: mouth in [address] and 1 tablet in the evening. Take with meals. carvediloL 2022-0 Yes [id number] 12.5mg Take 1 [facility] 12.5 mg 7-12 tablet by ity of tablet 00:00: mouth in [address] and 1 tablet in the evening. Take with meals. carvediloL 2022-0 Yes [id number] 12.5mg Take 1 [facility] 12.5 mg 7-12 tablet by ity of tablet 00:00: mouth in [address] and 1 tablet in the evening. Take with meals. carvediloL 2022-0 Yes [id number] 12.5mg Take 1 [facility] 12.5 mg 7-12 tablet by ity of tablet 00:00: mouth in [address] and 1 tablet in the evening. Take with meals. carvediloL 2022-0 Yes [id number] 12.5mg Take 1 [facility] 12.5 mg 7-12 tablet by ity of tablet 00:00: mouth in [address] and 1 tablet in the evening. Take with meals. carvediloL 2022-0 Yes [id number] 12.5mg Take 1 [facility] 12.5 mg 7-12 tablet by ity of tablet 00:00: mouth in [address] and 1 tablet in the evening. Take with meals. carvediloL 2022-0 Yes [id number] 12.5mg Take 1 [facility] 12.5 mg 7-12 tablet by ity of tablet 00:00: mouth in [address] morning [place] and 1 tablet in the evening. Take with meals. carvediloL 2022-0 Yes [id number] 12.5mg Take 1 [facility] 12.5 mg 7-12 tablet by ity of tablet 00:00: mouth in [address] and 1 tablet in the evening. Take with meals. carvediloL 2022-0 Yes [id number] 12.5mg Take 1 [facility] 12.5 mg 7-12 tablet by ity of tablet 00:00: mouth in [address] and 1 tablet in the evening. Take with meals. carvediloL 2022-0 Yes [id number] 12.5mg Take 1 [facility] 12.5 mg 7-12 tablet by ity of tablet 00:00: mouth in [address] and 1 tablet in the evening. Take with meals. carvediloL 2022-0 Yes [id number] 12.5mg Take 1 [facility] 12.5 mg 7-12 tablet by ity of tablet 00:00: mouth in [address] and 1 tablet in the evening. Take with meals. carvediloL 2022-0 Yes [id number] 12.5mg Take 1 [facility] 12.5 mg 7-12 tablet by ity of tablet 00:00: mouth in [address] and 1 tablet in the evening. Take with meals. carvediloL 2022-0 Yes [id number] 12.5mg Take 1 [facility] 12.5 mg 7-12 tablet by ity of tablet 00:00: mouth in [address] and 1 tablet in the evening. Take with meals. carvediloL 2022-0 Yes [id number] 12.5mg Take 1 [facility] 12.5 mg 7-12 tablet by ity of tablet 00:00: mouth in [address] and 1 tablet in the evening. Take with meals. carvediloL 2022-0 Yes [id number] 12.5mg Take 1 [facility] 12.5 mg 7-12 tablet by ity of tablet 00:00: mouth in [address] and 1 tablet in the evening. Take with meals. carvediloL 2022-0 Yes [id number] 12.5mg Take 1 [facility] 12.5 mg 7-12 tablet by ity of tablet 00:00: mouth in [address] morning [place] and 1 tablet in the evening. Take with meals. carvediloL 2021-0 Yes [id number] 12.5mg Take 1 [facility] 12.5 mg 7-12 tablet by ity of tablet 00:00: mouth in [place] 00 the [facility] morning [place] and 1 tablet in the evening. Take with meals. carvediloL 2021-0 Yes [id number] 12.5mg Take 1 [facility] 12.5 mg 7-12 tablet by ity of tablet 00:00: mouth in [place] [address] [facility] and 1 tablet in the evening. Take with meals. carvediloL 2021-0 Yes [id number] 12.5mg Take 1 [facility] 12.5 mg 7-12 tablet by ity of tablet 00:00: mouth in [place] 00 the [facility] morning [place] and 1 tablet in the evening. Take with meals. carvediloL 2021-0 Yes [id number] 12.5mg Take 1 [facility] 12.5 mg 7-12 tablet by ity of tablet 00:00: mouth in [place] [address] [facility] and 1 tablet in the evening. Take with meals. carvediloL 2021-0 3- No [id number] 12.5mg Take 1 [facility] 12.5 mg 7-12 03-21 tablet by ity of tablet 00:00: 00:00 mouth in [place] 00 :[address] [facility] and 1 tablet in the evening. Take with meals. carvediloL 2021-0 3- No [id number] 12.5mg Take 1 [facility] 12.5 mg 7-12 03-21 tablet by ity of tablet 00:00: 00:00 mouth in [place] 00 :00 [facility] and 1 tablet in the evening. Take with meals. terazosin 2 2021-0 Yes [id number] 2mg Take 1 [facility] mg capsule 5-10 capsule by ity of 00:00: mouth at [place] [address] bedtime. [facility] terazosin 2 2021-0 Yes [id number] 2mg Take 1 [facility] mg capsule 5-10 capsule by ity of 00:00: mouth at [place] [address] bedtime. [facility] terazosin 2 2021-0 Yes [id number] 2mg Take 1 [facility] mg capsule 5-10 capsule by ity of 00:00: mouth at [place] [address] bedtime. [facility] terazosin 2 2021-0 Yes [id number] 2mg Take 1 [facility] mg capsule 5-10 capsule by ity of 00:00: mouth at [place] [address] bedtime. [facility] terazosin 2 0 Yes [id number] 2mg Take 1 [facility] mg capsule 5-10 capsule by ity of 00:00: mouth at [place] [address] bedtime. Medical [facility] terazosin 2 0 Yes [id number] 2mg Take 1 [facility] mg capsule 5-10 capsule by ity of 00:00: mouth at [place] [address] bedtime. Medical [facility] terazosin 2 0 Yes [id number] 2mg Take 1 [facility] mg capsule 5-10 capsule by ity of 00:00: mouth at [place] [address] bedtime. [facility] terazosin 2 0 Yes [id number] 2mg Take 1 [facility] mg capsule 5-10 capsule by ity of 00:00: mouth at [place] [address] bedtime. [facility] terazosin 2 Yes [id number] 2mg Take 1 [facility] mg capsule 5-10 capsule by ity of 00:00: mouth at [place] [address] bedtime. Medical [facility] terazosin 2 0 Yes [id number] 2mg Take 1 [facility] mg capsule 5-10 capsule by ity of 00:00: mouth at [place] [address] bedtime. Medical [facility] terazosin 2 0 Yes [id number] 2mg Take 1 [facility] mg capsule 5-10 capsule by ity of 00:00: mouth at [place] [address] bedtime. Medical [facility] terazosin 2 0 Yes [id number] 2mg Take 1 [facility] mg capsule 5-10 capsule by ity of 00:00: mouth at [place] [address] bedtime. Medical [facility] terazosin 2 0 Yes [id number] 2mg Take 1 [facility] mg capsule 5-10 capsule by ity of 00:00: mouth at [place] [address] bedtime. Medical [facility] terazosin 2 0 Yes [id number] 2mg Take 1 [facility] mg capsule 5-10 capsule by ity of 00:00: mouth at [place] [address] bedtime. Medical [facility] terazosin 2 0 Yes [id number] 2mg Take 1 [facility] mg capsule 5-10 capsule by ity of 00:00: mouth at [place] [address] bedtime. Medical [facility] terazosin 2 0 Yes [id number] 2mg Take 1 [facility] mg capsule 5-10 capsule by ity of 00:00: mouth at [place] [address] bedtime. Medical [facility] terazosin 2 0 Yes [id number] 2mg Take 1 [facility] mg capsule 5-10 capsule by ity of 00:00: mouth at [place] [address] bedtime. Medical [facility] terazosin 2 0 Yes [id number] 2mg Take 1 [facility] mg capsule 5-10 capsule by ity of 00:00: mouth at [place] [address] bedtime. Medical [facility] terazosin 2 0 Yes [id number] 2mg Take 1 [facility] mg capsule 5-10 capsule by ity of 00:00: mouth at [place] [address] bedtime. Medical [facility] terazosin 2 0 Yes [id number] 2mg Take 1 [facility] mg capsule 5-10 capsule by ity of 00:00: mouth at [place] [address] bedtime. Medical [facility] terazosin 2 0 Yes [id number] 2mg Take 1 [facility] mg capsule 5-10 capsule by ity of 00:00: mouth at [place] [address] bedtime. Medical [facility] terazosin 2 Yes [id number] 2mg Take 1 [facility] mg capsule 5-10 capsule by ity of 00:00: mouth at [place] [address] bedtime. Medical [facility] terazosin 2 Yes [id number] 2mg Take 1 [facility] mg capsule 5-10 capsule by ity of 00:00: mouth at [place] [address] bedtime. Medical [facility] terazosin 2 0 Yes [id number] 2mg Take 1 [facility] mg capsule 5-10 capsule by ity of 00:00: mouth at [place] [address] bedtime. Medical [facility] terazosin 2 0 Yes [id number] 2mg Take 1 [facility] mg capsule 5-10 capsule by ity of 00:00: mouth at [place] [address] bedtime. Medical [facility] terazosin 2 0 Yes [id number] 2mg Take 1 [facility] mg capsule 5-10 capsule by ity of 00:00: mouth at [place] [address] bedtime. Medical [facility] terazosin 2 0 Yes [id number] 2mg Take 1 [facility] mg capsule 5-10 capsule by ity of 00:00: mouth at [place] [address] bedtime. Medical [facility] terazosin 2 0 Yes [id number] 2mg Take 1 [facility] mg capsule 5-10 capsule by ity of 00:00: mouth at [place] [address] bedtime. Medical [facility] terazosin 2 2022-0 Yes [id number] 2mg Take 1 [facility] mg capsule 5-10 capsule by ity of 00:00: mouth at [place] [address] bedtime. Medical [facility] terazosin 2 0 Yes [id number] 2mg Take 1 [facility] mg capsule 5-10 capsule by ity of 00:00: mouth at [place] [address] bedtime. Medical [facility] terazosin 2 0 Yes [id number] 2mg Take 1 [facility] mg capsule 5-10 capsule by ity of 00:00: mouth at [place] [address] bedtime. Medical [facility] terazosin 2 0 Yes [id number] 2mg Take 1 [facility] mg capsule 5-10 capsule by ity of 00:00: mouth at [place] [address] bedtime. Medical [facility] terazosin 2 0 Yes [id number] 2mg Take 1 [facility] mg capsule 5-10 capsule by ity of 00:00: mouth at [place] [address] bedtime. [facility] terazosin 2 Yes [id number] 2mg Take 1 [facility] mg capsule 5-10 capsule by ity of 00:00: mouth at [place] [address] bedtime. Medical [facility] terazosin 2 0 Yes [id number] 2mg Take 1 [facility] mg capsule 5-10 capsule by ity of 00:00: mouth at [place] [address] bedtime. Medical [facility] terazosin 2 0 Yes [id number] 2mg Take 1 [facility] mg capsule 5-10 capsule by ity of 00:00: mouth at [place] [address] bedtime. Medical [facility] terazosin 2 0 Yes [id number] 2mg Take 1 [facility] mg capsule 5-10 capsule by ity of 00:00: mouth at [place] [address] bedtime. Medical [facility] terazosin 2 0 Yes [id number] 2mg Take 1 [facility] mg capsule 5-10 capsule by ity of 00:00: mouth at [place] [address] bedtime. Medical [facility] terazosin 2 0 Yes [id number] 2mg Take 1 [facility] mg capsule 5-10 capsule by ity of 00:00: mouth at [place] [address] bedtime. [facility] terazosin 2 0 Yes [id number] 2mg Take 1 [facility] capsule 5-10 capsule by [facility] of 00:00: mouth at [place] [address] bedtime. [facility] terazosin 2 0 Yes [id number] 2mg Take 1 [facility] mg capsule 5-10 capsule by [facility] of 00:00: mouth at [place] [address] bedtime. [facility] terazosin 2 0 Yes [id number] 2mg Take 1 [facility] mg capsule 5-10 capsule by [facility] of 00:00: mouth at [place] [address] bedtime. [facility] terazosin 2 0 Yes [id number] 2mg Take 1 [facility] mg capsule 5-10 capsule by [facility] of 00:00: mouth at [place] [address] bedtime. [facility] terazosin 2 0 Yes [id number] 2mg Take 1 [facility] mg capsule 5-10 capsule by [facility] of 00:00: mouth at [place] [address] bedtime. [facility] terazosin 2 0 Yes [id number] 2mg Take 1 [facility] mg capsule 5-10 capsule by [facility] of 00:00: mouth at [place] [address] bedtime. [facility] terazosin 2 0 Yes [id number] 2mg Take 1 [facility] mg capsule 5-10 capsule by [facility] of 00:00: mouth at [place] [address] bedtime. [facility] terazosin 2 Yes [id number] 2mg Take 1 [facility] mg capsule 5-10 capsule by [facility] of 00:00: mouth at [place] [address] bedtime. [facility] terazosin 2 Yes [id number] 2mg Take 1 [facility] mg capsule 5-10 capsule by [facility] of 00:00: mouth at [place] [address] bedtime. [facility] terazosin 2 0 Yes [id number] 2mg Take 1 [facility] mg capsule 5-10 capsule by [facility] of 00:00: mouth at [place] [address] bedtime. [facility] terazosin 2 0 Yes [id number] 2mg Take 1 [facility] mg capsule 5-10 capsule by [facility] of 00:00: mouth at [place] [address] bedtime. [facility] terazosin 2 0 Yes [id number] 2mg Take 1 [facility] mg capsule 5-10 capsule by [facility] of 00:00: mouth at [place] [address] bedtime. [facility] terazosin 2 0 Yes [id number] 2mg Take 1 [facility] mg capsule 5-10 capsule by [facility] of 00:00: mouth at [place] [address] bedtime. [facility] terazosin 2 0 Yes [id number] 2mg Take 1 [facility] mg capsule 5-10 capsule by [facility] of 00:00: mouth at [place] [address] bedtime. [facility] terazosin 2 2022-0 Yes [id number] 2mg Take 1 [facility] mg capsule 5-10 capsule by [facility] of 00:00: mouth at [place] [address] bedtime. [facility] terazosin 2 0 Yes [id number] 2mg Take 1 [facility] mg capsule 5-10 capsule by [facility] of 00:00: mouth at [place] [address] bedtime. [facility] terazosin 2 0 Yes [id number] 2mg Take 1 [facility] mg capsule 5-10 capsule by [facility] of 00:00: mouth at [place] [address] bedtime. [facility] terazosin 2 0 Yes [id number] 2mg Take 1 [facility] mg capsule 5-10 capsule by [facility] of 00:00: mouth at [place] [address] bedtime. [facility] terazosin 2 0 Yes [id number] 2mg Take 1 [facility] mg capsule 5-10 capsule by [facility] of 00:00: mouth at [place] [address] bedtime. [facility] terazosin 2 Yes [id number] 2mg Take 1 [facility] mg capsule 5-10 capsule by [facility] of 00:00: mouth at [place] [address] bedtime. [facility] terazosin 2 0 Yes [id number] 2mg Take 1 [facility] mg capsule 5-10 capsule by [facility] of 00:00: mouth at [place] [address] bedtime. [facility] terazosin 2 0 Yes [id number] 2mg Take 1 [facility] mg capsule 5-10 capsule by [facility] of 00:00: mouth at [place] [address] bedtime. [facility] terazosin 2 0 Yes [id number] 2mg Take 1 [facility] mg capsule 5-10 capsule by [facility] of 00:00: mouth at [place] [address] bedtime. [facility] terazosin 2 0 Yes [id number] 2mg Take 1 [facility] mg capsule 5-10 capsule by [facility] of 00:00: mouth at [place] [address] bedtime. [facility] terazosin 2 0 Yes [id number] 2mg Take 1 [facility] mg capsule 5-10 capsule by [facility] of 00:00: mouth at [place] [address] bedtime. [facility] terazosin 2 0 Yes [id number] 2mg Take 1 [facility] mg capsule 5-10 capsule by [facility] of 00:00: mouth at [place] [address] bedtime. [facility] terazosin 2 0 Yes [id number] 2mg Take 1 [facility] mg capsule 5-10 capsule by [facility] of 00:00: mouth at [place] [address] bedtime. [facility] terazosin 2 0 Yes [id number] 2mg Take 1 [facility] mg capsule 5-10 capsule by [facility] of 00:00: mouth at [place] [address] bedtime. [facility] terazosin 2 0 Yes [id number] 2mg Take 1 [facility] mg capsule 5-10 capsule by [facility] of 00:00: mouth at [place] [address] bedtime. [facility] terazosin 2 0 Yes [id number] 2mg Take 1 [facility] mg capsule 5-10 capsule by [facility] of 00:00: mouth at [place] [address] bedtime. [facility] terazosin 2 0 Yes [id number] 2mg Take 1 [facility] mg capsule 5-10 capsule by [facility] of 00:00: mouth at [place] [address] bedtime. [facility] terazosin 2 0 Yes [id number] 2mg Take 1 [facility] mg capsule 5-10 capsule by [facility] of 00:00: mouth at [place] [address] bedtime. [facility] terazosin 2 Yes [id number] 2mg Take 1 [facility] mg capsule 5-10 capsule by [facility] of 00:00: mouth at [place] [address] bedtime. [facility] terazosin 2 Yes [id number] 2mg Take 1 [facility] mg capsule 5-10 capsule by [facility] of 00:00: mouth at [place] [address] bedtime. [facility] terazosin 2 0 Yes [id number] 2mg Take 1 [facility] mg capsule 5-10 capsule by [facility] of 00:00: mouth at [place] [address] bedtime. [facility] terazosin 2 0 Yes [id number] 2mg Take 1 [facility] mg capsule 5-10 capsule by [facility] of 00:00: mouth at [place] [address] bedtime. [facility] terazosin 2 0 Yes [id number] 2mg Take 1 [facility] mg capsule 5-10 capsule by [facility] of 00:00: mouth at [place] [address] bedtime. [facility] terazosin 2 0 Yes [id number] 2mg Take 1 [facility] mg capsule 5-10 capsule by [facility] of 00:00: mouth at [place] [address] bedtime. [facility] terazosin 2 0 Yes [id number] 2mg Take 1 [facility] mg capsule 5-10 capsule by [facility] of 00:00: mouth at [place] [address] bedtime. [facility] terazosin 2 2022-0 Yes [id number] 2mg Take 1 [facility] mg capsule 5-10 capsule by [facility] of 00:00: mouth at [place] [address] bedtime. [facility] terazosin 2 0 Yes [id number] 2mg Take 1 [facility] mg capsule 5-10 capsule by [facility] of 00:00: mouth at [place] [address] bedtime. [facility] terazosin 2 0 Yes [id number] 2mg Take 1 [facility] mg capsule 5-10 capsule by [facility] of 00:00: mouth at [place] [address] bedtime. [facility] terazosin 2 0 Yes [id number] 2mg Take 1 [facility] mg capsule 5-10 capsule by [facility] of 00:00: mouth at [place] [address] bedtime. [facility] terazosin 2 0 Yes [id number] 2mg Take 1 [facility] mg capsule 5-10 capsule by [facility] of 00:00: mouth at [place] [address] bedtime. [facility] terazosin 2 Yes [id number] 2mg Take 1 [facility] mg capsule 5-10 capsule by [facility] of 00:00: mouth at [place] [address] bedtime. [facility] terazosin 2 0 Yes [id number] 2mg Take 1 [facility] mg capsule 5-10 capsule by [facility] of 00:00: mouth at [place] [address] bedtime. [facility] terazosin 2 0 Yes [id number] 2mg Take 1 [facility] mg capsule 5-10 capsule by [facility] of 00:00: mouth at [place] [address] bedtime. [facility] terazosin 2 0 Yes [id number] 2mg Take 1 [facility] mg capsule 5-10 capsule by [facility] of 00:00: mouth at [place] [address] bedtime. [facility] terazosin 2 0 Yes [id number] 2mg Take 1 [facility] mg capsule 5-10 capsule by [facility] of 00:00: mouth at [place] [address] bedtime. [facility] terazosin 2 0 Yes [id number] 2mg Take 1 [facility] mg capsule 5-10 capsule by [facility] of 00:00: mouth at [place] [address] bedtime. [facility] terazosin 2 0 Yes [id number] 2mg Take 1 [facility] mg capsule 5-10 capsule by [facility] of 00:00: mouth at [place] [address] bedtime. [facility] terazosin 2 0 Yes [id number] 2mg Take 1 [facility] mg capsule 5-10 capsule by [facility] of 00:00: mouth at [place] [address] bedtime. [facility] terazosin 2 0 Yes [id number] 2mg Take 1 [facility] mg capsule 5-10 capsule by [facility] of 00:00: mouth at [place] [address] bedtime. [facility] terazosin 2 0 Yes [id number] 2mg Take 1 [facility] mg capsule 5-10 capsule by [facility] of 00:00: mouth at [place] [address] bedtime. [facility] terazosin 2 0 Yes [id number] 2mg Take 1 [facility] mg capsule 5-10 capsule by [facility] of 00:00: mouth at [place] [address] bedtime. [facility] terazosin 2 0 Yes [id number] 2mg Take 1 [facility] mg capsule 5-10 capsule by [facility] of 00:00: mouth at [place] [address] bedtime. [facility] terazosin 2 0 Yes [id number] 2mg Take 1 [facility] mg capsule 5-10 capsule by [facility] of 00:00: mouth at [place] [address] bedtime. [facility] terazosin 2 Yes [id number] 2mg Take 1 [facility] mg capsule 5-10 capsule by [facility] of 00:00: mouth at [place] [address] bedtime. [facility] terazosin 2 Yes [id number] 2mg Take 1 [facility] mg capsule 5-10 capsule by [facility] of 00:00: mouth at [place] [address] bedtime. [facility] terazosin 2 0 Yes [id number] 2mg Take 1 [facility] mg capsule 5-10 capsule by [facility] of 00:00: mouth at [place] [address] bedtime. [facility] terazosin 2 0 Yes [id number] 2mg Take 1 [facility] mg capsule 5-10 capsule by [facility] of 00:00: mouth at [place] [address] bedtime. [facility] terazosin 2 0 Yes [id number] 2mg Take 1 [facility] mg capsule 5-10 capsule by [facility] of 00:00: mouth at [place] [address] bedtime. [facility] terazosin 2 0 Yes [id number] 2mg Take 1 [facility] mg capsule 5-10 capsule by [facility] of 00:00: mouth at [place] [address] bedtime. [facility] terazosin 2 0 Yes [id number] 2mg Take 1 [facility] mg capsule 5-10 capsule by [facility] of 00:00: mouth at [place] [address] bedtime. [facility] terazosin 2 2022-0 Yes [id number] 2mg Take 1 [facility] mg capsule 5-10 capsule by [facility] of 00:00: mouth at [place] [address] bedtime. [facility] terazosin 2 0 Yes [id number] 2mg Take 1 [facility] mg capsule 5-10 capsule by [facility] of 00:00: mouth at [place] [address] bedtime. [facility] terazosin 2 0 Yes [id number] 2mg Take 1 [facility] mg capsule 5-10 capsule by [facility] of 00:00: mouth at [place] [address] bedtime. [facility] terazosin 2 0 Yes [id number] 2mg Take 1 [facility] mg capsule 5-10 capsule by [facility] of 00:00: mouth at [place] [address] bedtime. [facility] terazosin 2 0 Yes [id number] 2mg Take 1 [facility] mg capsule 5-10 capsule by [facility] of 00:00: mouth at [place] [address] bedtime. [facility] terazosin 2 Yes [id number] 2mg Take 1 [facility] mg capsule 5-10 capsule by [facility] of 00:00: mouth at [place] [address] bedtime. [facility] terazosin 2 0 Yes [id number] 2mg Take 1 [facility] mg capsule 5-10 capsule by [facility] of 00:00: mouth at [place] [address] bedtime. [facility] terazosin 2 0 Yes [id number] 2mg Take 1 [facility] mg capsule 5-10 capsule by [facility] of 00:00: mouth at [place] [address] bedtime. [facility] terazosin 2 0 Yes [id number] 2mg Take 1 [facility] mg capsule 5-10 capsule by [facility] of 00:00: mouth at [place] [address] bedtime. [facility] terazosin 2 0 Yes [id number] 2mg Take 1 [facility] mg capsule 5-10 capsule by [facility] of 00:00: mouth at [place] [address] bedtime. [facility] terazosin 2 0 Yes [id number] 2mg Take 1 [facility] mg capsule 5-10 capsule by [facility] of 00:00: mouth at [place] [address] bedtime. [facility] terazosin 2 0 Yes [id number] 2mg Take 1 [facility] mg capsule 5-10 capsule by [facility] of 00:00: mouth at [place] [address] bedtime. [facility] terazosin 2 0 Yes [id number] 2mg Take 1 [facility] mg capsule 5-10 capsule by [facility] of 00:00: mouth at [place] [address] bedtime. [facility] terazosin 2 2021-0 Yes [id number] 2mg Take 1 [facility] mg capsule 5-10 capsule by [facility] of 00:00: mouth at [place] [address] bedtime. [facility] terazosin 2 2021-0 Yes [id number] 2mg Take 1 [facility] mg capsule 5-10 capsule by [facility] of 00:00: mouth at [place] [address] bedtime. [facility] terazosin 2 2021-0 Yes [id number] 2mg Take 1 [facility] mg capsule 5-10 capsule by [facility] of 00:00: mouth at [place] [address] bedtime. [facility] terazosin 2 2021-0 Yes [id number] 2mg Take 1 [facility] mg capsule 5-10 capsule by [facility] of 00:00: mouth at [place] [address] bedtime. [facility] terazosin 2 0 Yes [id number] 2mg Take 1 [facility] mg capsule 5-10 capsule by [facility] of 00:00: mouth at [place] [address] bedtime. [facility] terazosin 2 2021-0 Yes [id number] 2mg Take 1 [facility] mg capsule 5-10 capsule by [facility] of 00:00: mouth at [place] [address] bedtime. [facility] terazosin 2 0 Yes [id number] 2mg Take 1 [facility] mg capsule 5-10 capsule by [facility] of 00:00: mouth at [place] [address] bedtime. [facility] terazosin 2 0 Yes [id number] 2mg Take 1 [facility] mg capsule 5-10 capsule by [facility] of 00:00: mouth at [place] [address] bedtime. [facility] terazosin 2 2021-0 Yes [id number] 2mg Take 1 [facility] mg capsule 5-10 capsule by [facility] of 00:00: mouth at [place] [address] bedtime. [facility] terazosin 2 0 Yes [id number] 2mg Take 1 [facility] mg capsule 5-10 capsule by [facility] of 00:00: mouth at [place] [address] bedtime. [facility] terazosin 2 2021-0 2022- No [id number] 2mg Take 1 [facility] mg capsule 5-10 04-02 capsule by it y of 00:00: 00:00 mouth at [place] 00 :00 bedtime. [facility] terazosin 2 2021-0 2022- No [id number] 2mg Take 1 [facility] mg capsule 5-10 04-02 capsule by it y of 00:00: 00:00 mouth at [place] 00 :00 bedtime. [facility] amitriptyli 2021-3- No 25mg Take 25 mg [facility] ne 50 mg -09 09-12 by mouth ity of tablet 00:00: 04:59 at [place] 00 :00 bedtime. [facility] amitriptyli 2021-3- No 25mg Take 25 mg [facility] ne 50 mg 02-14-12 by mouth ity of tablet 00:00: 04:59 at [place] 00 :00 bedtime. [facility] amitriptyli 2021-3- No 25mg Take 25 mg [facility] ne 50 mg -09 09-12 by mouth ity of tablet 00:00: 04:59 at [place] 00 :00 bedtime. [facility] amitriptyli 2021-2022- No 25mg Take 25 mg [facility] ne 50 mg -09 09-12 by mouth ity of tablet 00:00: 04:59 at [place] 00 :00 bedtime. [facility] amitriptyli 2021-3- No 25mg Take 25 mg [facility] ne 50 mg 02-14-12 by mouth ity of tablet 00:00: 04:59 at [place] 00 :00 bedtime. [facility] amitriptyli 2021-3- No 25mg Take 25 mg [facility] ne 50 mg 02-14-12 by mouth ity of tablet 00:00: 04:59 at [place] 00 :00 bedtime. [facility] amitriptyli 2021-3- No 25mg Take 25 mg [facility] ne 50 mg 02-14-12 by mouth ity of tablet 00:00: 04:59 at [place] 00 :00 bedtime. [facility] amitriptyli 2021-3- No 25mg Take 25 mg [facility] ne 50 mg -09 09-12 by mouth ity of tablet 00:00: 04:59 at [place] 00 :00 bedtime. [facility] amitriptyli 2021-3- No 25mg Take 25 mg [facility] ne 50 mg -09 09-12 by mouth ity of tablet 00:00: 04:59 at [place] 00 :00 bedtime. [facility] amitriptyli 2021-0 3- No 25mg Take 25 mg [facility] ne 50 mg -09 09-12 by mouth ity of tablet 00:00: 04:59 at [place] 00 :00 bedtime. [facility] amitriptyli 2022- No 25mg Take 25 mg [facility] ne 50 mg 02-14-12 by mouth ity of tablet 00:00: 04:59 at [place] 00 :00 bedtime. [facility] amitriptyli 2022- No 25mg Take 25 mg [facility] ne 50 mg 02-14-12 by mouth ity of tablet 00:00: 04:59 at [place] 00 :00 bedtime. [facility] amitriptyli 2022- No 25mg Take 25 mg [facility] ne 50 mg 02-14-12 by mouth ity of tablet 00:00: 04:59 at [place] 00 :00 bedtime. [facility] amitriptyli 2022- No 25mg Take 25 mg [facility] ne 50 mg 02-14-12 by mouth ity of tablet 00:00: 04:59 at [place] 00 :00 bedtime. [facility] amitriptyli 2021- No 25mg Take 25 mg [facility] ne 50 mg 4-11 10-20 by mouth ity of tablet 00:00: 00:00 at [place] 00 :00 bedtime. [facility] amitriptyli 2021- No 25mg Take 25 mg [facility] ne 50 mg 4-11 10-20 by mouth ity of tablet 00:00: 00:00 at [place] 00 :00 bedtime. [facility] ERGOCALCIFE 2021- Yes [id number] Take 1 [facility] ROL, 3-18 capsule by ity of VITAMIN D2, 00:00: mouth once [place] 1,250 mcg 00 a week Medical (50,000 Branch unit) capsule ERGOCALCIFE 2-0 Yes [id number] Take 1 [facility] ROL, 3-18 capsule by ity of VITAMIN D2, 00:00: mouth once [place] 1,250 mcg 00 a week Medical (50,000 Branch unit) capsule ERGOCALCIFE 2-0 Yes [id number] Take 1 [facility] ROL, 3-18 capsule by ity of VITAMIN D2, 00:00: mouth once [place] 1,250 mcg 00 a week Medical (50,000 Branch unit) capsule ERGOCALCIFE 2-0 Yes [id number] Take 1 [facility] ROL, 3-18 capsule by ity of VITAMIN D2, 00:00: mouth once [place] 1,250 mcg 00 a week Medical (50,000 Branch unit) capsule ERGOCALCIFE 2022-0 Yes [id number] Take 1 [facility] ROL, 3-18 capsule by ity of VITAMIN D2, 00:00: mouth once [place] 1,250 mcg 00 a week Medical (50,000 Branch unit) capsule ERGOCALCIFE 2022-0 Yes [id number] Take 1 [facility] ROL, 3-18 capsule by ity of VITAMIN D2, 00:00: mouth once [place] 1,250 mcg 00 a week Medical (50,000 Branch unit) capsule ERGOCALCIFE 2022-0 Yes [id number] Take 1 [facility] ROL, 3-18 capsule by ity of VITAMIN D2, 00:00: mouth once [place] 1,250 mcg 00 a week Medical (50,000 Branch unit) capsule ERGOCALCIFE 2022-0 Yes [id number] Take 1 [facility] ROL, 3-18 capsule by ity of VITAMIN D2, 00:00: mouth once [place] 1,250 mcg 00 a week Medical (50,000 Branch unit) capsule ERGOCALCIFE 2022-0 Yes [id number] Take 1 [facility] ROL, 3-18 capsule by ity of VITAMIN D2, 00:00: mouth once [place] 1,250 mcg 00 a week Medical (50,000 Branch unit) capsule ERGOCALCIFE 2022-0 Yes [id number] Take 1 [facility] ROL, 3-18 capsule by ity of VITAMIN D2, 00:00: mouth once [place] 1,250 mcg 00 a week Medical (50,000 Branch unit) capsule ERGOCALCIFE 2022-0 Yes [id number] Take 1 [facility] ROL, 3-18 capsule by ity of VITAMIN D2, 00:00: mouth once [place] 1,250 mcg 00 a week Medical (50,000 Branch unit) capsule ERGOCALCIFE 2022-0 Yes [id number] Take 1 [facility] ROL, 3-18 capsule by ity of VITAMIN D2, 00:00: mouth once [place] 1,250 mcg 00 a week Medical (50,000 Branch unit) capsule ERGOCALCIFE 2022-0 Yes [id number] Take 1 [facility] ROL, 3-18 capsule by ity of VITAMIN D2, 00:00: mouth once [place] 1,250 mcg 00 a week Medical (50,000 Branch unit) capsule ERGOCALCIFE 2022-0 Yes [id number] Take 1 [facility] ROL, 3-18 capsule by ity of VITAMIN D2, 00:00: mouth once [place] 1,250 mcg 00 a week Medical (50,000 Branch unit) capsule ERGOCALCIFE 2022-0 Yes [id number] Take 1 [facility] ROL, 3-18 capsule by ity of VITAMIN D2, 00:00: mouth once [place] 1,250 mcg 00 a week Medical (50,000 Branch unit) capsule ERGOCALCIFE 2022-0 Yes [id number] Take 1 [facility] ROL, 3-18 capsule by ity of VITAMIN D2, 00:00: mouth once [place] 1,250 mcg 00 a week Medical (50,000 Branch unit) capsule ERGOCALCIFE 2022-0 Yes [id number] Take 1 [facility] ROL, 3-18 capsule by ity of VITAMIN D2, 00:00: mouth once [place] 1,250 mcg 00 a week Medical (50,000 Branch unit) capsule ERGOCALCIFE 2022-0 Yes [id number] Take 1 [facility] ROL, 3-18 capsule by ity of VITAMIN D2, 00:00: mouth once [place] 1,250 mcg 00 a week Medical (50,000 Branch unit) capsule ERGOCALCIFE 2022-0 Yes [id number] Take 1 [facility] ROL, 3-18 capsule by ity of VITAMIN D2, 00:00: mouth once [place] 1,250 mcg 00 a week Medical (50,000 Branch unit) capsule ERGOCALCIFE 2022-0 Yes [id number] Take 1 [facility] ROL, 3-18 capsule by ity of VITAMIN D2, 00:00: mouth once [place] 1,250 mcg 00 a week Medical (50,000 Branch unit) capsule ERGOCALCIFE 2022-0 Yes [id number] Take 1 [facility] ROL, 3-18 capsule by ity of VITAMIN D2, 00:00: mouth once [place] 1,250 mcg 00 a week Medical (50,000 Branch unit) capsule ERGOCALCIFE 2022-0 Yes [id number] Take 1 [facility] ROL, 3-18 capsule by ity of VITAMIN D2, 00:00: mouth once [place] 1,250 mcg 00 a week Medical (50,000 Branch unit) capsule ERGOCALCIFE 2022-0 Yes [id number] Take 1 [facility] ROL, 3-18 capsule by ity of VITAMIN D2, 00:00: mouth once [place] 1,250 mcg 00 a week Medical (50,000 Branch unit) capsule ERGOCALCIFE 2022-0 Yes [id number] Take 1 [facility] ROL, 3-18 capsule by ity of VITAMIN D2, 00:00: mouth once [place] 1,250 mcg 00 a week Medical (50,000 Branch unit) capsule ERGOCALCIFE 2022-0 Yes [id number] Take 1 [facility] ROL, 3-18 capsule by ity of VITAMIN D2, 00:00: mouth once [place] 1,250 mcg 00 a week Medical (50,000 Branch unit) capsule ERGOCALCIFE 2022-0 Yes [id number] Take 1 [facility] ROL, 3-18 capsule by ity of VITAMIN D2, 00:00: mouth once [place] 1,250 mcg 00 a week Medical (50,000 Branch unit) capsule ERGOCALCIFE 2022-0 Yes [id number] Take 1 [facility] ROL, 3-18 capsule by ity of VITAMIN D2, 00:00: mouth once [place] 1,250 mcg 00 a week Medical (50,000 Branch unit) capsule ERGOCALCIFE 2022-0 Yes [id number] Take 1 [facility] ROL, 3-18 capsule by ity of VITAMIN D2, 00:00: mouth once [place] 1,250 mcg 00 a week Medical (50,000 Branch unit) capsule ERGOCALCIFE 2022-0 Yes [id number] Take 1 [facility] ROL, 3-18 capsule by ity of VITAMIN D2, 00:00: mouth once [place] 1,250 mcg 00 a week Medical (50,000 Branch unit) capsule ERGOCALCIFE 2022-0 Yes [id number] Take 1 [facility] ROL, 3-18 capsule by ity of VITAMIN D2, 00:00: mouth once [place] 1,250 mcg 00 a week Medical (50,000 Branch unit) capsule ERGOCALCIFE 2022-0 Yes [id number] Take 1 [facility] ROL, 3-18 capsule by ity of VITAMIN D2, 00:00: mouth once [place] 1,250 mcg 00 a week Medical (50,000 Branch unit) capsule ERGOCALCIFE 2022-0 Yes [id number] Take 1 [facility] ROL, 3-18 capsule by ity of VITAMIN D2, 00:00: mouth once [place] 1,250 mcg 00 a week Medical (50,000 Branch unit) capsule ERGOCALCIFE 2022-0 Yes [id number] Take 1 [facility] ROL, 3-18 capsule by ity of VITAMIN D2, 00:00: mouth once [place] 1,250 mcg 00 a week Medical (50,000 Branch unit) capsule ERGOCALCIFE 2022-0 Yes [id number] Take 1 [facility] ROL, 3-18 capsule by ity of VITAMIN D2, 00:00: mouth once [place] 1,250 mcg 00 a week Medical (50,000 Branch unit) capsule ERGOCALCIFE 2022-0 Yes [id number] Take 1 [facility] ROL, 3-18 capsule by ity of VITAMIN D2, 00:00: mouth once [place] 1,250 mcg 00 a week Medical (50,000 Branch unit) capsule ERGOCALCIFE 2022-0 Yes [id number] Take 1 [facility] ROL, 3-18 capsule by ity of VITAMIN D2, 00:00: mouth once [place] 1,250 mcg 00 a week Medical (50,000 Branch unit) capsule ERGOCALCIFE 2022-0 Yes [id number] Take 1 [facility] ROL, 3-18 capsule by ity of VITAMIN D2, 00:00: mouth once [place] 1,250 mcg 00 a week Medical (50,000 Branch unit) capsule ERGOCALCIFE 2022-0 Yes [id number] Take 1 [facility] ROL, 3-18 capsule by ity of VITAMIN D2, 00:00: mouth once [place] 1,250 mcg 00 a week Medical (50,000 Branch unit) capsule ERGOCALCIFE 2022-0 Yes [id number] Take 1 [facility] ROL, 3-18 capsule by ity of VITAMIN D2, 00:00: mouth once [place] 1,250 mcg 00 a week Medical (50,000 Branch unit) capsule ERGOCALCIFE 2022-0 Yes [id number] Take 1 [facility] ROL, 3-18 capsule by ity of VITAMIN D2, 00:00: mouth once [place] 1,250 mcg 00 a week Medical (50,000 Branch unit) capsule ERGOCALCIFE 2022-0 Yes [id number] Take 1 [facility] ROL, 3-18 capsule by ity of VITAMIN D2, 00:00: mouth once [place] 1,250 mcg 00 a week Medical (50,000 Branch unit) capsule ERGOCALCIFE 2022-0 Yes [id number] Take 1 [facility] ROL, 3-18 capsule by ity of VITAMIN D2, 00:00: mouth once [place] 1,250 mcg 00 a week Medical (50,000 Branch unit) capsule ERGOCALCIFE 2022-0 Yes [id number] Take 1 [facility] ROL, 3-18 capsule by ity of VITAMIN D2, 00:00: mouth once [place] 1,250 mcg 00 a week Medical (50,000 Branch unit) capsule ERGOCALCIFE 2022-0 Yes [id number] Take 1 [facility] ROL, 3-18 capsule by ity of VITAMIN D2, 00:00: mouth once [place] 1,250 mcg 00 a week Medical (50,000 Branch unit) capsule ERGOCALCIFE 2022-0 Yes [id number] Take 1 [facility] ROL, 3-18 capsule by ity of VITAMIN D2, 00:00: mouth once [place] 1,250 mcg 00 a week Medical (50,000 Branch unit) capsule ERGOCALCIFE 2022-0 Yes [id number] Take 1 [facility] ROL, 3-18 capsule by ity of VITAMIN D2, 00:00: mouth once [place] 1,250 mcg 00 a week Medical (50,000 Branch unit) capsule ERGOCALCIFE 2022-0 Yes [id number] Take 1 [facility] ROL, 3-18 capsule by ity of VITAMIN D2, 00:00: mouth once [place] 1,250 mcg 00 a week Medical (50,000 Branch unit) capsule ERGOCALCIFE 2022-0 Yes [id number] Take 1 [facility] ROL, 3-18 capsule by ity of VITAMIN D2, 00:00: mouth once [place] 1,250 mcg 00 a week Medical (50,000 Branch unit) capsule ERGOCALCIFE 2022-0 Yes [id number] Take 1 [facility] ROL, 3-18 capsule by ity of VITAMIN D2, 00:00: mouth once [place] 1,250 mcg 00 a week Medical (50,000 Branch unit) capsule ERGOCALCIFE 2022-0 Yes [id number] Take 1 [facility] ROL, 3-18 capsule by ity of VITAMIN D2, 00:00: mouth once [place] 1,250 mcg 00 a week Medical (50,000 Branch unit) capsule ERGOCALCIFE 2022-0 Yes [id number] Take 1 [facility] ROL, 3-18 capsule by ity of VITAMIN D2, 00:00: mouth once [place] 1,250 mcg 00 a week Medical (50,000 Branch unit) capsule ERGOCALCIFE 2022-0 Yes [id number] Take 1 [facility] ROL, 3-18 capsule by ity of VITAMIN D2, 00:00: mouth once [place] 1,250 mcg 00 a week Medical (50,000 Branch unit) capsule ERGOCALCIFE 2022-0 Yes [id number] Take 1 [facility] ROL, 3-18 capsule by ity of VITAMIN D2, 00:00: mouth once [place] 1,250 mcg 00 a week Medical (50,000 Branch unit) capsule ERGOCALCIFE 2022-0 Yes [id number] Take 1 [facility] ROL, 3-18 capsule by ity of VITAMIN D2, 00:00: mouth once [place] 1,250 mcg 00 a week Medical (50,000 Branch unit) capsule ERGOCALCIFE 2022-0 Yes [id number] Take 1 [facility] R[facility], 3-18 capsule by [facility] of VITAMIN D2, 00:00: mouth once [place] 1,250 mcg 00 a week Medical (50,000 Branch unit) capsule ERGOCALCIFE 2022-0 Yes [id number] Take 1 [facility] R[facility], 3-18 capsule by [facility] of VITAMIN D2, 00:00: mouth once [place] 1,250 mcg 00 a week Medical (50,000 Branch unit) capsule ERGOCALCIFE 2022-0 Yes [id number] Take 1 [facility] ROL, 3-18 capsule by [facility]y of VITAMIN D2, 00:00: mouth once [place] 1,250 mcg 00 a week Medical (50,000 Branch unit) capsule ERGOCALCIFE 2022-0 Yes [id number] Take 1 [facility] ROL, 3-18 capsule by [facility]y of VITAMIN D2, 00:00: mouth once [place] 1,250 mcg 00 a week Medical (50,000 Branch unit) capsule ERGOCALCIFE 2022-0 Yes [id number] Take 1 [facility] ROL, 3-18 capsule by [facility]y of VITAMIN D2, 00:00: mouth once [place] 1,250 mcg 00 a week Medical (50,000 Branch unit) capsule ERGOCALCIFE 2022-0 Yes [id number] Take 1 [facility] ROL, 3-18 capsule by [facility]y of VITAMIN D2, 00:00: mouth once [place] 1,250 mcg 00 a week Medical (50,000 Branch unit) capsule ERGOCALCIFE 2022-0 Yes [id number] Take 1 [facility] ROL, 3-18 capsule by [facility]y of VITAMIN D2, 00:00: mouth once [place] 1,250 mcg 00 a week Medical (50,000 Branch unit) capsule ERGOCALCIFE 2022-0 Yes [id number] Take 1 [facility] ROL, 3-18 capsule by [facility]y of VITAMIN D2, 00:00: mouth once [place] 1,250 mcg 00 a week Medical (50,000 Branch unit) capsule ERGOCALCIFE 2022-0 Yes [id number] Take 1 [facility] ROL, 3-18 capsule by [facility]y of VITAMIN D2, 00:00: mouth once [place] 1,250 mcg 00 a week Medical (50,000 Branch unit) capsule ERGOCALCIFE 2022-0 Yes [id number] Take 1 [facility] R[facility], 3-18 capsule by [facility]y of VITAMIN D2, 00:00: mouth once [place] 1,250 mcg 00 a week Medical (50,000 Branch unit) capsule ERGOCALCIFE 2022-0 Yes [id number] Take 1 [facility] R[facility], 3-18 capsule by [facility]y of VITAMIN D2, 00:00: mouth once [place] 1,250 mcg 00 a week Medical (50,000 Branch unit) capsule ERGOCALCIFE 2022-0 Yes [id number] Take 1 [facility] ROL, 3-18 capsule by [facility]y of VITAMIN D2, 00:00: mouth once [place] 1,250 mcg 00 a week Medical (50,000 Branch unit) capsule ERGOCALCIFE 2022-0 Yes [id number] Take 1 [facility] ROL, 3-18 capsule by [facility]y of VITAMIN D2, 00:00: mouth once [place] 1,250 mcg 00 a week Medical (50,000 Branch unit) capsule ERGOCALCIFE 2022-0 Yes [id number] Take 1 [facility] ROL, 3-18 capsule by [facility]y of VITAMIN D2, 00:00: mouth once [place] 1,250 mcg 00 a week Medical (50,000 Branch unit) capsule ERGOCALCIFE 2022-0 Yes [id number] Take 1 [facility] ROL, 3-18 capsule by [facility]y of VITAMIN D2, 00:00: mouth once [place] 1,250 mcg 00 a week Medical (50,000 Branch unit) capsule ERGOCALCIFE 2022-0 Yes [id number] Take 1 [facility] ROL, 3-18 capsule by [facility]y of VITAMIN D2, 00:00: mouth once [place] 1,250 mcg 00 a week Medical (50,000 Branch unit) capsule ERGOCALCIFE 2022-0 Yes [id number] Take 1 [facility] ROL, 3-18 capsule by [facility]y of VITAMIN D2, 00:00: mouth once [place] 1,250 mcg 00 a week Medical (50,000 Branch unit) capsule ERGOCALCIFE 2022-0 Yes [id number] Take 1 [facility] ROL, 3-18 capsule by ity of VITAMIN D2, 00:00: mouth once [place] 1,250 mcg 00 a week Medical (50,000 Branch unit) capsule ERGOCALCIFE 2022-0 Yes [id number] Take 1 [facility] ROL, 3-18 capsule by [facility]y of VITAMIN D2, 00:00: mouth once [place] 1,250 mcg 00 a week Medical (50,000 Branch unit) capsule ERGOCALCIFE 2022-0 Yes [id number] Take 1 [facility] ROL, 3-18 capsule by [facility]y of VITAMIN D2, 00:00: mouth once [place] 1,250 mcg 00 a week Medical (50,000 Branch unit) capsule ERGOCALCIFE 2022-0 Yes [id number] Take 1 [facility] ROL, 3-18 capsule by [facility]y of VITAMIN D2, 00:00: mouth once [place] 1,250 mcg 00 a week Medical (50,000 Branch unit) capsule ERGOCALCIFE 2022-0 Yes [id number] Take 1 [facility] ROL, 3-18 capsule by [facility]y of VITAMIN D2, 00:00: mouth once [place] 1,250 mcg 00 a week Medical (50,000 Branch unit) capsule ERGOCALCIFE 2022-0 Yes [id number] Take 1 [facility] ROL, 3-18 capsule by [facility]y of VITAMIN D2, 00:00: mouth once [place] 1,250 mcg 00 a week Medical (50,000 Branch unit) capsule ERGOCALCIFE 2022-0 Yes [id number] Take 1 [facility] ROL, 3-18 capsule by [facility]y of VITAMIN D2, 00:00: mouth once [place] 1,250 mcg 00 a week Medical (50,000 Branch unit) capsule ERGOCALCIFE 2022-0 Yes [id number] Take 1 [facility] ROL, 3-18 capsule by ity of VITAMIN D2, 00:00: mouth once [place] 1,250 mcg 00 a week Medical (50,000 Branch unit) capsule ERGOCALCIFE 2022-0 Yes [id number] Take 1 [facility] ROL, 3-18 capsule by ity of VITAMIN D2, 00:00: mouth once [place] 1,250 mcg 00 a week Medical (50,000 Branch unit) capsule ERGOCALCIFE 2022-0 Yes [id number] Take 1 [facility] ROL, 3-18 capsule by ity of VITAMIN D2, 00:00: mouth once [place] 1,250 mcg 00 a week Medical (50,000 Branch unit) capsule ERGOCALCIFE 2022-0 Yes [id number] Take 1 [facility] ROL, 3-18 capsule by ity of VITAMIN D2, 00:00: mouth once [place] 1,250 mcg 00 a week Medical (50,000 Branch unit) capsule ERGOCALCIFE 2022-0 Yes [id number] Take 1 [facility] ROL, 3-18 capsule by ity of VITAMIN D2, 00:00: mouth once [place] 1,250 mcg 00 a week Medical (50,000 Branch unit) capsule ERGOCALCIFE 2022-0 Yes [id number] Take 1 [facility] ROL, 3-18 capsule by [facility]y of VITAMIN D2, 00:00: mouth once [place] 1,250 mcg 00 a week Medical (50,000 Branch unit) capsule ERGOCALCIFE 2022-0 Yes [id number] Take 1 [facility] ROL, 3-18 capsule by ity of VITAMIN D2, 00:00: mouth once [place] 1,250 mcg 00 a week Medical (50,000 Branch unit) capsule ERGOCALCIFE 2022-0 Yes [id number] Take 1 [facility] ROL, 3-18 capsule by [facility]y of VITAMIN D2, 00:00: mouth once [place] 1,250 mcg 00 a week Medical (50,000 Branch unit) capsule ERGOCALCIFE 2022-0 Yes [id number] Take 1 [facility] ROL, 3-18 capsule by ity of VITAMIN D2, 00:00: mouth once [place] 1,250 mcg 00 a week Medical (50,000 Branch unit) capsule ERGOCALCIFE 2022-0 Yes [id number] Take 1 [facility] ROL, 3-18 capsule by [facility]y of VITAMIN D2, 00:00: mouth once [place] 1,250 mcg 00 a week Medical (50,000 Branch unit) capsule ERGOCALCIFE 2022-0 Yes [id number] Take 1 [facility] ROL, 3-18 capsule by ity of VITAMIN D2, 00:00: mouth once [place] 1,250 mcg 00 a week Medical (50,000 Branch unit) capsule ERGOCALCIFE 2022-0 Yes [id number] Take 1 [facility] ROL, 3-18 capsule by [facility]y of VITAMIN D2, 00:00: mouth once [place] 1,250 mcg 00 a week Medical (50,000 Branch unit) capsule ERGOCALCIFE 2022-0 Yes [id number] Take 1 [facility] ROL, 3-18 capsule by ity of VITAMIN D2, 00:00: mouth once [place] 1,250 mcg 00 a week Medical (50,000 Branch unit) capsule ERGOCALCIFE 2022-0 Yes [id number] Take 1 [facility] ROL, 3-18 capsule by ity of VITAMIN D2, 00:00: mouth once [place] 1,250 mcg 00 a week Medical (50,000 Branch unit) capsule ERGOCALCIFE 2022-0 Yes [id number] Take 1 [facility] ROL, 3-18 capsule by ity of VITAMIN D2, 00:00: mouth once [place] 1,250 mcg 00 a week Medical (50,000 Branch unit) capsule ERGOCALCIFE 2022-0 Yes [id number] Take 1 [facility] ROL, 3-18 capsule by ity of VITAMIN D2, 00:00: mouth once [place] 1,250 mcg 00 a week Medical (50,000 Branch unit) capsule ERGOCALCIFE 2022-0 Yes [id number] Take 1 [facility] ROL, 3-18 capsule by ity of VITAMIN D2, 00:00: mouth once [place] 1,250 mcg 00 a week Medical (50,000 Branch unit) capsule ERGOCALCIFE 2022-0 Yes [id number] Take 1 [facility] ROL, 3-18 capsule by ity of VITAMIN D2, 00:00: mouth once [place] 1,250 mcg 00 a week Medical (50,000 Branch unit) capsule ERGOCALCIFE 2022-0 Yes [id number] Take 1 [facility] ROL, 3-18 capsule by [facility]y of VITAMIN D2, 00:00: mouth once [place] 1,250 mcg 00 a week Medical (50,000 Branch unit) capsule ERGOCALCIFE 2022-0 Yes [id number] Take 1 [facility] ROL, 3-18 capsule by ity of VITAMIN D2, 00:00: mouth once [place] 1,250 mcg 00 a week Medical (50,000 Branch unit) capsule ERGOCALCIFE 2022-0 Yes [id number] Take 1 [facility] ROL, 3-18 capsule by ity of VITAMIN D2, 00:00: mouth once [place] 1,250 mcg 00 a week Medical (50,000 Branch unit) capsule ERGOCALCIFE 2022-0 Yes [id number] Take 1 [facility] ROL, 3-18 capsule by ity of VITAMIN D2, 00:00: mouth once [place] 1,250 mcg 00 a week Medical (50,000 Branch unit) capsule ERGOCALCIFE 2022-0 Yes [id number] Take 1 [facility] ROL, 3-18 capsule by ity of VITAMIN D2, 00:00: mouth once [place] 1,250 mcg 00 a week Medical (50,000 Branch unit) capsule ERGOCALCIFE 2022-0 Yes [id number] Take 1 [facility] ROL, 3-18 capsule by ity of VITAMIN D2, 00:00: mouth once [place] 1,250 mcg 00 a week Medical (50,000 Branch unit) capsule ERGOCALCIFE 2022-0 Yes [id number] Take 1 [facility] ROL, 3-18 capsule by ity of VITAMIN D2, 00:00: mouth once [place] 1,250 mcg 00 a week Medical (50,000 Branch unit) capsule ERGOCALCIFE 2022-0 Yes [id number] Take 1 [facility] ROL, 3-18 capsule by ity of VITAMIN D2, 00:00: mouth once [place] 1,250 mcg 00 a week Medical (50,000 Branch unit) capsule ERGOCALCIFE 2022-0 Yes [id number] Take 1 [facility] ROL, 3-18 capsule by ity of VITAMIN D2, 00:00: mouth once [place] 1,250 mcg 00 a week Medical (50,000 Branch unit) capsule ERGOCALCIFE 2022-0 Yes [id number] Take 1 [facility] ROL, 3-18 capsule by ity of VITAMIN D2, 00:00: mouth once [place] 1,250 mcg 00 a week Medical (50,000 Branch unit) capsule ERGOCALCIFE 2022-0 Yes [id number] Take 1 [facility] ROL, 3-18 capsule by ity of VITAMIN D2, 00:00: mouth once [place] 1,250 mcg 00 a week Medical (50,000 Branch unit) capsule ERGOCALCIFE 2022-0 Yes [id number] Take 1 [facility] ROL, 3-18 capsule by ity of VITAMIN D2, 00:00: mouth once [place] 1,250 mcg 00 a week Medical (50,000 Branch unit) capsule ERGOCALCIFE 2022-0 Yes [id number] Take 1 [facility] ROL, 3-18 capsule by ity of VITAMIN D2, 00:00: mouth once [place] 1,250 mcg 00 a week Medical (50,000 Branch unit) capsule ERGOCALCIFE 2022-0 Yes [id number] Take 1 [facility] ROL, 3-18 capsule by ity of VITAMIN D2, 00:00: mouth once [place] 1,250 mcg 00 a week Medical (50,000 Branch unit) capsule ERGOCALCIFE 2022-0 Yes [id number] Take 1 [facility] ROL, 3-18 capsule by ity of VITAMIN D2, 00:00: mouth once [place] 1,250 mcg 00 a week Medical (50,000 Branch unit) capsule ERGOCALCIFE 2022-0 Yes [id number] Take 1 [facility] ROL, 3-18 capsule by ity of VITAMIN D2, 00:00: mouth once [place] 1,250 mcg 00 a week Medical (50,000 Branch unit) capsule ERGOCALCIFE 2022-0 Yes [id number] Take 1 [facility] ROL, 3-18 capsule by ity of VITAMIN D2, 00:00: mouth once [place] 1,250 mcg 00 a week Medical (50,000 Branch unit) capsule ERGOCALCIFE 2022-0 Yes [id number] Take 1 [facility] ROL, 3-18 capsule by ity of VITAMIN D2, 00:00: mouth once [place] 1,250 mcg 00 a week Medical (50,000 Branch unit) capsule ERGOCALCIFE 2022-0 Yes [id number] Take 1 [facility] ROL, 3-18 capsule by ity of VITAMIN D2, 00:00: mouth once [place] 1,250 mcg 00 a week Medical (50,000 Branch unit) capsule ERGOCALCIFE 2022-0 Yes [id number] Take 1 [facility] ROL, 3-18 capsule by ity of VITAMIN D2, 00:00: mouth once [place] 1,250 mcg 00 a week Medical (50,000 Branch unit) capsule ERGOCALCIFE 2022-0 Yes [id number] Take 1 [facility] ROL, 3-18 capsule by ity of VITAMIN D2, 00:00: mouth once [place] 1,250 mcg 00 a week Medical (50,000 Branch unit) capsule ERGOCALCIFE 2022-0 Yes [id number] Take 1 [facility] ROL, 3-18 capsule by ity of VITAMIN D2, 00:00: mouth once [place] 1,250 mcg 00 a week Medical (50,000 Branch unit) capsule ERGOCALCIFE 2022-0 Yes [id number] Take 1 [facility] ROL, 3-18 capsule by ity of VITAMIN D2, 00:00: mouth once [place] 1,250 mcg 00 a week Medical (50,000 Branch unit) capsule ERGOCALCIFE 2022-0 Yes [id number] Take 1 [facility] ROL, 3-18 capsule by ity of VITAMIN D2, 00:00: mouth once [place] 1,250 mcg 00 a week Medical (50,000 Branch unit) capsule ERGOCALCIFE 2022-0 Yes [id number] Take 1 [facility] ROL, 3-18 capsule by ity of VITAMIN D2, 00:00: mouth once [place] 1,250 mcg 00 a week Medical (50,000 Branch unit) capsule ERGOCALCIFE 2022-0 Yes [id number] Take 1 [facility] ROL, 3-18 capsule by ity of VITAMIN D2, 00:00: mouth once [place] 1,250 mcg 00 a week Medical (50,000 Branch unit) capsule ERGOCALCIFE 2022-0 Yes [id number] Take 1 [facility] ROL, 3-18 capsule by ity of VITAMIN D2, 00:00: mouth once [place] 1,250 mcg 00 a week Medical (50,000 Branch unit) capsule ERGOCALCIFE 2022-0 Yes [id number] Take 1 [facility] ROL, 3-18 capsule by ity of VITAMIN D2, 00:00: mouth once [place] 1,250 mcg 00 a week Medical (50,000 Branch unit) capsule ERGOCALCIFE 2022-0 Yes [id number] Take 1 [facility] ROL, 3-18 capsule by ity of VITAMIN D2, 00:00: mouth once [place] 1,250 mcg 00 a week Medical (50,000 Branch unit) capsule ERGOCALCIFE 2022-0 Yes [id number] Take 1 [facility] ROL, 3-18 capsule by ity of VITAMIN D2, 00:00: mouth once [place] 1,250 mcg 00 a week Medical (50,000 Branch unit) capsule ERGOCALCIFE 2022-0 Yes [id number] Take 1 [facility] ROL, 3-18 capsule by ity of VITAMIN D2, 00:00: mouth once [place] 1,250 mcg 00 a week Medical (50,000 Branch unit) capsule ERGOCALCIFE 2022-0 Yes [id number] Take 1 [facility] ROL, 3-18 capsule by ity of VITAMIN D2, 00:00: mouth once [place] 1,250 mcg 00 a week Medical (50,000 Branch unit) capsule ERGOCALCIFE 2022-0 Yes [id number] Take 1 [facility] ROL, 3-18 capsule by ity of VITAMIN D2, 00:00: mouth once [place] 1,250 mcg 00 a week Medical (50,000 Branch unit) capsule ERGOCALCIFE 2022-0 Yes [id number] Take 1 [facility] ROL, 3-18 capsule by ity of VITAMIN D2, 00:00: mouth once [place] 1,250 mcg 00 a week Medical (50,000 Branch unit) capsule ERGOCALCIFE 2022-0 Yes [id number] Take 1 [facility] ROL, 3-18 capsule by ity of VITAMIN D2, 00:00: mouth once [place] 1,250 mcg 00 a week Medical (50,000 Branch unit) capsule ERGOCALCIFE 2022-0 Yes [id number] Take 1 [facility] ROL, 3-18 capsule by ity of VITAMIN D2, 00:00: mouth once [place] 1,250 mcg 00 a week Medical (50,000 Branch unit) capsule ERGOCALCIFE 2022-0 Yes [id number] Take 1 [facility] ROL, 3-18 capsule by ity of VITAMIN D2, 00:00: mouth once [place] 1,250 mcg 00 a week Medical (50,000 Branch unit) capsule ERGOCALCIFE 2022-0 Yes [id number] Take 1 [facility] ROL, 3-18 capsule by ity of VITAMIN D2, 00:00: mouth once [place] 1,250 mcg 00 a week Medical (50,000 Branch unit) capsule ERGOCALCIFE 2022-0 Yes [id number] Take 1 [facility] ROL, 3-18 capsule by ity of VITAMIN D2, 00:00: mouth once [place] 1,250 mcg 00 a week Medical (50,000 Branch unit) capsule ERGOCALCIFE 2022-0 Yes [id number] Take 1 [facility] ROL, 3-18 capsule by ity of VITAMIN D2, 00:00: mouth once [place] 1,250 mcg 00 a week Medical (50,000 Branch unit) capsule ERGOCALCIFE 2022-0 2023- No [id number] Take 1 [facility] ROL, 3-18 04-10 capsule by ity of VITAMIN D2, 00:00: 00:00 mouth once [place] 1,250 mcg 00 :00 a week Medical (50,000 Branch unit) capsule ERGOCALCIFE 2022-0 2023- No [id number] Take 1 [facility] ROL, 3-18 04-10 capsule [...] helping much Indication s: chronic pain acetaminoph 0 Yes 2745 1{tbl} Take 1 [facility] godfrey en-codeine 2-15 tablet by ity of 300-30 mg 00:00: mouth 3 [place] tablet 00 (three) Medical times Branch daily as needed (Chronic Pain). For chronic foot pain. Has triedcymba lta,lyrica ,other medication s and gabapentin not helping much Indication s: chronic pain acetaminoph 0 2023- No 2745 1{tbl} Take 1 [facility] nivers en-codeine 2-15 04-28 tablet by ity of 300-30 mg 00:00: 00:00 mouth 3 [place] tablet 00 :00 (three) Medical times Branch daily as needed (Chronic Pain). For chronic foot pain. Has triedcymba lta,lyrica ,other medication s and gabapentin not helping much Indication s: chronic pain levothyroxi 2020-11 Yes [id number] 125ug Take 1 [facility] ne 0-12 tablet by ity of (EUTHYROX) 00:00: mouth [place] 125 mcg 00 every Medical tablet morning. Branch levothyroxi 2020-11 Yes [id number] 125ug Take 1 [facility] ne 0-12 tablet by ity of (EUTHYROX) 00:00: mouth [place] 125 mcg 00 every Medical tablet morning. Branch levothyroxi 2020-11 Yes [id number] 125ug Take 1 [facility] ne 0-12 tablet by ity of (EUTHYROX) 00:00: mouth [place] 125 mcg 00 every Medical tablet morning. Branch levothyroxi 2020-11 Yes [id number] 125ug Take 1 [facility] ne 0-12 tablet by ity of (EUTHYROX) 00:00: mouth [place] 125 mcg 00 every Medical tablet morning. Branch levothyroxi 2020-11 Yes [id number] 125ug Take 1 [facility] ne 0-12 tablet by ity of (EUTHYROX) 00:00: mouth [place] 125 mcg 00 every Medical tablet morning. Branch levothyroxi 2020-11 Yes [id number] 125ug Take 1 [facility] ne 0-12 tablet by ity of (EUTHYROX) 00:00: mouth [place] 125 mcg 00 every Medical tablet morning. Branch levothyroxi 2020-11 Yes [id number] 125ug Take 1 [facility] ne 0-12 tablet by ity of (EUTHYROX) 00:00: mouth [place] 125 mcg 00 every Medical tablet morning. Branch levothyroxi 2020-11 Yes [id number] 125ug Take 1 [facility] ne 0-12 tablet by ity of (EUTHYROX) 00:00: mouth [place] 125 mcg 00 every Medical tablet morning. Branch levothyroxi 2020-11 Yes [id number] 125ug Take 1 [facility] ne 0-12 tablet by ity of (EUTHYROX) 00:00: mouth [place] 125 mcg 00 every Medical tablet morning. Branch levothyroxi 2020-11 Yes [id number] 125ug Take 1 [facility] ne 0-12 tablet by ity of (EUTHYROX) 00:00: mouth [place] 125 mcg 00 every Medical tablet morning. Branch levothyroxi 2020-11 Yes [id number] 125ug Take 1 [facility] ne 0-12 tablet by ity of (EUTHYROX) 00:00: mouth [place] 125 mcg 00 every Medical tablet morning. Branch levothyroxi 2020-11 Yes [id number] 125ug Take 1 [facility] ne 0-12 tablet by ity of (EUTHYROX) 00:00: mouth [place] 125 mcg 00 every Medical tablet morning. Branch levothyroxi 2020-11 Yes [id number] 125ug Take 1 [facility] ne 0-12 tablet by ity of (EUTHYROX) 00:00: mouth [place] 125 mcg 00 every Medical tablet morning. Branch levothyroxi 2020-11 Yes [id number] 125ug Take 1 [facility] ne 0-12 tablet by ity of (EUTHYROX) 00:00: mouth [place] 125 mcg 00 every Medical tablet morning. Branch levothyroxi 2020-11 Yes [id number] 125ug Take 1 [facility] ne 0-12 tablet by ity of (EUTHYROX) 00:00: mouth [place] 125 mcg 00 every Medical tablet morning. Branch levothyroxi 2020-11 Yes [id number] 125ug Take 1 [facility] ne 0-12 tablet by ity of (EUTHYROX) 00:00: mouth [place] 125 mcg 00 every Medical tablet morning. Branch levothyroxi 2020-11 Yes [id number] 125ug Take 1 [facility] ne 0-12 tablet by ity of (EUTHYROX) 00:00: mouth [place] 125 mcg 00 every Medical tablet morning. Branch levothyroxi 2020-11 Yes [id number] 125ug Take 1 [facility] ne 0-12 tablet by ity of (EUTHYROX) 00:00: mouth [place] 125 mcg 00 every Medical tablet morning. Branch levothyroxi 2020-11 Yes [id number] 125ug Take 1 [facility] ne 0-12 tablet by ity of (EUTHYROX) 00:00: mouth [place] 125 mcg 00 every Medical tablet morning. Branch levothyroxi 2020-11 Yes [id number] 125ug Take 1 [facility] ne 0-12 tablet by ity of (EUTHYROX) 00:00: mouth [place] 125 mcg 00 every Medical tablet morning. Branch levothyroxi 2020-11 Yes [id number] 125ug Take 1 [facility] ne 0-12 tablet by ity of (EUTHYROX) 00:00: mouth [place] 125 mcg 00 every Medical tablet morning. Branch levothyroxi 2020-11 Yes [id number] 125ug Take 1 [facility] ne 0-12 tablet by ity of (EUTHYROX) 00:00: mouth [place] 125 mcg 00 every Medical tablet morning. Branch levothyroxi 2020-11 Yes [id number] 125ug Take 1 [facility] ne 0-12 tablet by ity of (EUTHYROX) 00:00: mouth [place] 125 mcg 00 every Medical tablet morning. Branch levothyroxi 2020-11 Yes [id number] 125ug Take 1 [facility] ne 0-12 tablet by ity of (EUTHYROX) 00:00: mouth [place] 125 mcg 00 every Medical tablet morning. Branch levothyroxi 2020-11 Yes [id number] 125ug Take 1 [facility] ne 0-12 tablet by ity of (EUTHYROX) 00:00: mouth [place] 125 mcg 00 every Medical tablet morning. Branch levothyroxi 2020-11 Yes [id number] 125ug Take 1 [facility] ne 0-12 tablet by ity of (EUTHYROX) 00:00: mouth [place] 125 mcg 00 every Medical tablet morning. Branch levothyroxi 2020-11 Yes [id number] 125ug Take 1 [facility] ne 0-12 tablet by ity of (EUTHYROX) 00:00: mouth [place] 125 mcg 00 every Medical tablet morning. Branch levothyroxi 2020-11 Yes [id number] 125ug Take 1 [facility] ne 0-12 tablet by ity of (EUTHYROX) 00:00: mouth [place] 125 mcg 00 every Medical tablet morning. Branch levothyroxi 2020-11 Yes [id number] 125ug Take 1 [facility] ne 0-12 tablet by ity of (EUTHYROX) 00:00: mouth [place] 125 mcg 00 every Medical tablet morning. Branch levothyroxi 2020-11 Yes [id number] 125ug Take 1 [facility] ne 0-12 tablet by ity of (EUTHYROX) 00:00: mouth [place] 125 mcg 00 every Medical tablet morning. Branch levothyroxi 2020-11 Yes [id number] 125ug Take 1 [facility] ne 0-12 tablet by ity of (EUTHYROX) 00:00: mouth [place] 125 mcg 00 every Medical tablet morning. Branch levothyroxi 2020-11 Yes [id number] 125ug Take 1 [facility] ne 0-12 tablet by ity of (EUTHYROX) 00:00: mouth [place] 125 mcg 00 every Medical tablet morning. Branch levothyroxi 2020-11 Yes [id number] 125ug Take 1 [facility] ne 0-12 tablet by ity of (EUTHYROX) 00:00: mouth [place] 125 mcg 00 every Medical tablet morning. Branch levothyroxi 2020-11 Yes [id number] 125ug Take 1 [facility] ne 0-12 tablet by ity of (EUTHYROX) 00:00: mouth [place] 125 mcg 00 every Medical tablet morning. Branch levothyroxi 2020-11 Yes [id number] 125ug Take 1 [facility] ne 0-12 tablet by ity of (EUTHYROX) 00:00: mouth [place] 125 mcg 00 every Medical tablet morning. Branch levothyroxi 2020-11 Yes [id number] 125ug Take 1 [facility] ne 0-12 tablet by ity of (EUTHYROX) 00:00: mouth [place] 125 mcg 00 every Medical tablet morning. Branch levothyroxi 2020-11 Yes [id number] 125ug Take 1 [facility] ne 0-12 tablet by ity of (EUTHYROX) 00:00: mouth [place] 125 mcg 00 every Medical tablet morning. Branch levothyroxi 2020-11 Yes [id number] 125ug Take 1 [facility] ne 0-12 tablet by ity of (EUTHYROX) 00:00: mouth [place] 125 mcg 00 every Medical tablet morning. Branch levothyroxi 2020-11 Yes [id number] 125ug Take 1 [facility] ne 0-12 tablet by ity of (EUTHYROX) 00:00: mouth [place] 125 mcg 00 every Medical tablet morning. Branch levothyroxi 2020-11 Yes [id number] 125ug Take 1 [facility] ne 0-12 tablet by ity of (EUTHYROX) 00:00: mouth [place] 125 mcg 00 every Medical tablet morning. Branch levothyroxi 2020-11 Yes [id number] 125ug Take 1 [facility] ne 0-12 tablet by ity of (EUTHYROX) 00:00: mouth [place] 125 mcg 00 every Medical tablet morning. Branch levothyroxi 2020-11 Yes [id number] 125ug Take 1 [facility] ne 0-12 tablet by ity of (EUTHYROX) 00:00: mouth [place] 125 mcg 00 every Medical tablet morning. Branch levothyroxi 2020-11 Yes [id number] 125ug Take 1 [facility] ne 0-12 tablet by ity of (EUTHYROX) 00:00: mouth [place] 125 mcg 00 every Medical tablet morning. Branch levothyroxi 2020-11 Yes [id number] 125ug Take 1 [facility] ne 0-12 tablet by ity of (EUTHYROX) 00:00: mouth [place] 125 mcg 00 every Medical tablet morning. Branch levothyroxi 2020-11 Yes [id number] 125ug Take 1 [facility] ne 0-12 tablet by ity of (EUTHYROX) 00:00: mouth [place] 125 mcg 00 every Medical tablet morning. Branch levothyroxi 2020-11- No [id number] 125ug Take 1 [facility] ne 0-12 12-19 tablet by ity of (EUTHYROX) 00:00: 00:00 mouth [place] 125 mcg 00 :00 every Medical tablet morning. Branch levothyroxi 2020-11- No [id number] 125ug Take 1 [facility] ne 0-12 19 tablet by ity of (EUTHYROX) 00:00: 00:00 mouth [place] 125 mcg 00 :00 every Medical tablet morning. Branch allopurinoL 0 Yes [id number] 200mg Take 2 [facility] 100 mg 7-11 9103 tablets by ity of tablet 00:00: mouth [place] 00 daily. Medical Branch allopurinoL 0 Yes [id number] 200mg Take 2 [facility] 100 mg 7-11 9103 tablets by ity of tablet 00:00: mouth [place] 00 daily. Medical Branch allopurinoL Yes [id number] 200mg Take 2 [facility] 100 mg 7-11 9103 tablets by ity of tablet 00:00: mouth [place] 00 daily. Medical Branch allopurinoL 0 Yes [id number] 200mg Take 2 [facility] 100 mg 7-11 9103 tablets by ity of tablet 00:00: mouth [place] 00 daily. Medical Branch allopurinoL Yes [id number] 200mg Take 2 [facility] 100 mg 7-11 9103 tablets by ity of tablet 00:00: mouth [place] 00 daily. Medical Branch allopurinoL Yes [id number] 200mg Take 2 [facility] 100 mg 7-11 9103 tablets by ity of tablet 00:00: mouth [place] 00 daily. Medical Branch allopurinoL 0 Yes [id number] 200mg Take 2 [facility] 100 mg 7-11 9103 tablets by ity of tablet 00:00: mouth [place] 00 daily. Medical Branch allopurinoL 0 Yes [id number] 200mg Take 2 [facility] 100 mg 7-11 9103 tablets by ity of tablet 00:00: mouth [place] 00 daily. Medical Branch allopurinoL Yes [id number] 200mg Take 2 [facility] 100 mg 7-11 9103 tablets by ity of tablet 00:00: mouth [place] 00 daily. Medical Branch allopurinoL Yes [id number] 200mg Take 2 [facility] 100 mg 7-11 9103 tablets by ity of tablet 00:00: mouth [place] 00 daily. Medical Branch allopurinoL Yes [id number] 200mg Take 2 [facility] 100 mg 7-11 9103 tablets by ity of tablet 00:00: mouth [place] 00 daily. Medical Branch allopurinoL Yes [id number] 200mg Take 2 [facility] 100 mg 7-11 9103 tablets by ity of tablet 00:00: mouth [place] 00 daily. Medical Branch allopurinoL Yes [id number] 200mg Take 2 [facility] 100 mg 7-11 9103 tablets by ity of tablet 00:00: mouth [place] 00 daily. [facility] allopurinoL Yes [id number] 200mg Take 2 [facility] 100 mg 7-11 9103 tablets by ity of tablet 00:00: mouth [place] 00 daily. [facility] allopurinoL Yes [id number] 200mg Take 2 [facility] 100 mg 7-11 9103 tablets by ity of tablet 00:00: mouth [place] 00 daily. [facility] allopurinoL Yes [id number] 200mg Take 2 [facility] 100 mg 7-11 9103 tablets by ity of tablet 00:00: mouth [place] 00 daily. [facility] allopurinoL Yes [id number] 200mg Take 2 [facility] 100 mg 7-11 9103 tablets by ity of tablet 00:00: mouth [place] 00 daily. [facility] allopurinoL Yes [id number] 200mg Take 2 [facility] 100 mg 7-11 9103 tablets by ity of tablet 00:00: mouth [place] 00 daily. [facility] allopurinoL Yes [id number] 200mg Take 2 [facility] 100 mg 7-11 9103 tablets by ity of tablet 00:00: mouth [place] 00 daily. [facility] allopurinoL Yes [id number] 200mg Take 2 [facility] 100 mg 7-11 9103 tablets by ity of tablet 00:00: mouth [place] 00 daily. [facility] allopurinoL Yes [id number] 200mg Take 2 [facility] 100 mg 7-11 9103 tablets by ity of tablet 00:00: mouth [place] 00 daily. [facility] allopurinoL Yes [id number] 200mg Take 2 [facility] 100 mg 7-11 9103 tablets by ity of tablet 00:00: mouth [place] 00 daily. [facility] allopurinoL 2021-0 Yes [id number] 200mg Take 2 [facility] 100 mg 7-11 9103 tablets by ity of tablet 00:00: mouth [place] 00 daily. [facility] allopurinoL 0 Yes [id number] 200mg Take 2 [facility] 100 mg 7-11 9103 tablets by ity of tablet 00:00: mouth [place] 00 daily. [facility] allopurinoL 0 Yes [id number] 200mg Take 2 [facility] 100 mg 7-11 9103 tablets by ity of tablet 00:00: mouth [place] 00 daily. [facility] allopurinoL Yes [id number] 200mg Take 2 [facility] 100 mg 7-11 9103 tablets by ity of tablet 00:00: mouth [place] 00 daily. [facility] allopurinoL Yes [id number] 200mg Take 2 [facility] 100 mg 7-11 9103 tablets by [facility]y of tablet 00:00: mouth [place] 00 daily. [facility] allopurinoL Yes [id number] 200mg Take 2 [facility] 100 mg 7-11 9103 tablets by ity of tablet 00:00: mouth [place] 00 daily. [facility] allopurinoL Yes [id number] 200mg Take 2 [facility] 100 mg 7-11 9103 tablets by [facility]y of tablet 00:00: mouth [place] 00 daily. [facility] allopurinoL Yes [id number] 200mg Take 2 [facility] 100 mg 7-11 9103 tablets by [facility]y of tablet 00:00: mouth [place] 00 daily. [facility] allopurinoL Yes [id number] 200mg Take 2 [facility] 100 mg 7-11 9103 tablets by ity of tablet 00:00: mouth [place] 00 daily. [facility] allopurinoL 0 Yes [id number] 200mg Take 2 [facility] 100 mg 7-11 9103 tablets by ity of tablet 00:00: mouth [place] 00 daily. [facility] allopurinoL 0 Yes [id number] 200mg Take 2 [facility] 100 mg 7-11 9103 tablets by ity of tablet 00:00: mouth [place] 00 daily. [facility] allopurinoL 0 Yes [id number] 200mg Take 2 [facility] 100 mg 7-11 9103 tablets by ity of tablet 00:00: mouth [place] 00 daily. [facility] allopurinoL Yes [id number] 200mg Take 2 [facility] 100 mg 7-11 9103 tablets by ity of tablet 00:00: mouth [place] 00 daily. [facility] allopurinoL Yes [id number] 200mg Take 2 [facility] 100 mg 7-11 9103 tablets by ity of tablet 00:00: mouth [place] 00 daily. [facility] allopurinoL Yes [id number] 200mg Take 2 [facility] 100 mg 7-11 9103 tablets by ity of tablet 00:00: mouth [place] 00 daily. [facility] allopurinoL Yes [id number] 200mg Take 2 [facility] 100 mg 7-11 9103 tablets by ity of tablet 00:00: mouth [place] 00 daily. [facility] allopurinoL Yes [id number] 200mg Take 2 [facility] 100 mg 7-11 9103 tablets by ity of tablet 00:00: mouth [place] 00 daily. [facility] allopurinoL Yes [id number] 200mg Take 2 [facility] 100 mg 7-11 9103 tablets by ity of tablet 00:00: mouth [place] 00 daily. [facility] allopurinoL Yes [id number] 200mg Take 2 [facility] 100 mg 7-11 9103 tablets by ity of tablet 00:00: mouth [place] 00 daily. [facility] allopurinoL Yes [id number] 200mg Take 2 [facility] 100 mg 7-11 9103 tablets by ity of tablet 00:00: mouth [place] 00 daily. [facility] allopurinoL Yes [id number] 200mg Take 2 [facility] 100 mg 7-11 9103 tablets by ity of tablet 00:00: mouth [place] 00 daily. [facility] allopurinoL Yes [id number] 200mg Take 2 [facility] 100 mg 7-11 9103 tablets by ity of tablet 00:00: mouth [place] 00 daily. [facility] allopurinoL Yes [id number] 200mg Take 2 [facility] 100 mg 7-11 9103 tablets by ity of tablet 00:00: mouth [place] 00 daily. [facility] allopurinoL Yes [id number] 200mg Take 2 [facility] 100 mg 7-11 9103 tablets by [facility]y of tablet 00:00: mouth [place] 00 daily. [facility] allopurinoL Yes [id number] 200mg Take 2 [facility] 100 mg 7-11 9103 tablets by ity of tablet 00:00: mouth [place] 00 daily. [facility] allopurinoL Yes [id number] 200mg Take 2 [facility] 100 mg 7-11 9103 tablets by ity of tablet 00:00: mouth [place] 00 daily. [facility] allopurinoL Yes [id number] 200mg Take 2 [facility] 100 mg 7-11 9103 tablets by ity of tablet 00:00: mouth [place] 00 daily. [facility] allopurinoL Yes [id number] 200mg Take 2 [facility] 100 mg 7-11 9103 tablets by ity of tablet 00:00: mouth [place] 00 daily. [facility] allopurinoL Yes [id number] 200mg Take 2 [facility] 100 mg 7-11 9103 tablets by ity of tablet 00:00: mouth [place] 00 daily. [facility] allopurinoL Yes [id number] 200mg Take 2 [facility] 100 mg 7-11 9103 tablets by ity of tablet 00:00: mouth [place] 00 daily. [facility] allopurinoL Yes [id number] 200mg Take 2 [facility] 100 mg 7-11 9103 tablets by ity of tablet 00:00: mouth [place] 00 daily. [facility] allopurinoL Yes [id number] 200mg Take 2 [facility] 100 mg 7-11 9103 tablets by ity of tablet 00:00: mouth [place] 00 daily. [facility] allopurinoL Yes [id number] 200mg Take 2 [facility] 100 mg 7-11 9103 tablets by ity of tablet 00:00: mouth [place] 00 daily. [facility] allopurinoL Yes [id number] 200mg Take 2 [facility] 100 mg 7-11 9103 tablets by ity of tablet 00:00: mouth [place] 00 daily. [facility] allopurinoL Yes [id number] 200mg Take 2 [facility] 100 mg 7-11 9103 tablets by ity of tablet 00:00: mouth [place] 00 daily. [facility] allopurinoL Yes [id number] 200mg Take 2 [facility] 100 mg 7-11 9103 tablets by ity of tablet 00:00: mouth [place] 00 daily. [facility] allopurinoL Yes [id number] 200mg Take 2 [facility] 100 mg 7-11 9103 tablets by ity of tablet 00:00: mouth [place] 00 daily. [facility] allopurinoL 2020-0 Yes [id number] 200mg Take 2 [facility] 100 mg 7-11 9103 tablets by ity of tablet 00:00: mouth [place] 00 daily. [facility] allopurinoL 2020-0 Yes [id number] 200mg Take 2 [facility] 100 mg 7-11 9103 tablets by ity of tablet 00:00: mouth [place] 00 daily. [facility] allopurinoL 2020-0 Yes [id number] 200mg Take 2 [facility] 100 mg 7-11 9103 tablets by ity of tablet 00:00: mouth [place] 00 daily. [facility] allopurinoL 2020-0 Yes [id number] 200mg Take 2 [facility] 100 mg 7-11 9103 tablets by ity of tablet 00:00: mouth [place] 00 daily. [facility] allopurinoL 0 Yes [id number] 200mg Take 2 [facility] 100 mg 7-11 9103 tablets by ity of tablet 00:00: mouth [place] 00 daily. [facility] allopurinoL 0 Yes [id number] 200mg Take 2 [facility] 100 mg 7-11 9103 tablets by ity of tablet 00:00: mouth [place] 00 daily. [facility] allopurinoL 0 Yes [id number] 200mg Take 2 [facility] 100 mg 7-11 9103 tablets by ity of tablet 00:00: mouth [place] 00 daily. [facility] allopurinoL 0 Yes [id number] 200mg Take 2 [facility] 100 mg 7-11 9103 tablets by ity of tablet 00:00: mouth [place] 00 daily. [facility] allopurinoL 0 Yes [id number] 200mg Take 2 [facility] 100 mg 7-11 9103 tablets by ity of tablet 00:00: mouth [place] 00 daily. [facility] allopurinoL 0 Yes [id number] 200mg Take 2 [facility] 100 mg 7-11 9103 tablets by ity of tablet 00:00: mouth [place] 00 daily. [facility] allopurinoL 2020-0 Yes [id number] 200mg Take 2 [facility] 100 mg 7-11 9103 tablets by ity of tablet 00:00: mouth [place] 00 daily. [facility] allopurinoL 2020-0 Yes [id number] 200mg Take 2 [facility] 100 mg 7-11 9103 tablets by ity of tablet 00:00: mouth [place] 00 daily. [facility] allopurinoL Yes [id number] 200mg Take 2 [facility] 100 mg 7-11 9103 tablets by ity of tablet 00:00: mouth [place] 00 daily. [facility] allopurinoL Yes [id number] 200mg Take 2 [facility] 100 mg 7-11 9103 tablets by ity of tablet 00:00: mouth [place] 00 daily. [facility] allopurinoL Yes [id number] 200mg Take 2 [facility] 100 mg 7-11 9103 tablets by ity of tablet 00:00: mouth [place] 00 daily. [facility] allopurinoL Yes [id number] 200mg Take 2 [facility] 100 mg 7-11 9103 tablets by ity of tablet 00:00: mouth [place] 00 daily. [facility] allopurinoL Yes [id number] 200mg Take 2 [facility] 100 mg 7-11 9103 tablets by ity of tablet 00:00: mouth [place] 00 daily. [facility] allopurinoL Yes [id number] 200mg Take 2 [facility] 100 mg 7-11 9103 tablets by ity of tablet 00:00: mouth [place] 00 daily. [facility] allopurinoL Yes [id number] 200mg Take 2 [facility] 100 mg 7-11 9103 tablets by [facility]y of tablet 00:00: mouth [place] 00 daily. [facility] allopurinoL Yes [id number] 200mg Take 2 [facility] 100 mg 7-11 9103 tablets by ity of tablet 00:00: mouth [place] 00 daily. [facility] allopurinoL Yes [id number] 200mg Take 2 [facility] 100 mg 7-11 9103 tablets by [facility]y of tablet 00:00: mouth [place] 00 daily. [facility] allopurinoL Yes [id number] 200mg Take 2 [facility] 100 mg 7-11 9103 tablets by ity of tablet 00:00: mouth [place] 00 daily. [facility] allopurinoL Yes [id number] 200mg Take 2 [facility] 100 mg 7-11 9103 tablets by [facility]y of tablet 00:00: mouth [place] 00 daily. [facility] allopurinoL Yes [id number] 200mg Take 2 [facility] 100 mg 7-11 9103 tablets by ity of tablet 00:00: mouth [place] 00 daily. [facility] allopurinoL Yes [id number] 200mg Take 2 [facility] 100 mg 7-11 9103 tablets by ity of tablet 00:00: mouth [place] 00 daily. [facility] allopurinoL Yes [id number] 200mg Take 2 [facility] 100 mg 7-11 9103 tablets by ity of tablet 00:00: mouth [place] 00 daily. [facility] allopurinoL Yes [id number] 200mg Take 2 [facility] 100 mg 7-11 9103 tablets by ity of tablet 00:00: mouth [place] 00 daily. [facility] allopurinoL Yes [id number] 200mg Take 2 [facility] 100 mg 7-11 9103 tablets by ity of tablet 00:00: mouth [place] 00 daily. [facility] allopurinoL Yes [id number] 200mg Take 2 [facility] 100 mg 7-11 9103 tablets by ity of tablet 00:00: mouth [place] 00 daily. [facility] allopurinoL Yes [id number] 200mg Take 2 [facility] 100 mg 7-11 9103 tablets by ity of tablet 00:00: mouth [place] 00 daily. [facility] allopurinoL Yes [id number] 200mg Take 2 [facility] 100 mg 7-11 9103 tablets by ity of tablet 00:00: mouth [place] 00 daily. [facility] allopurinoL Yes [id number] 200mg Take 2 [facility] 100 mg 7-11 9103 tablets by ity of tablet 00:00: mouth [place] 00 daily. [facility] allopurinoL Yes [id number] 200mg Take 2 [facility] 100 mg 7-11 9103 tablets by ity of tablet 00:00: mouth [place] 00 daily. [facility] allopurinoL Yes [id number] 200mg Take 2 [facility] 100 mg 7-11 9103 tablets by ity of tablet 00:00: mouth [place] 00 daily. [facility] allopurinoL Yes [id number] 200mg Take 2 [facility] 100 mg 7-11 9103 tablets by ity of tablet 00:00: mouth [place] 00 daily. [facility] allopurinoL Yes [id number] 200mg Take 2 [facility] 100 mg 7-11 9103 tablets by ity of tablet 00:00: mouth [place] 00 daily. [facility] allopurinoL Yes [id number] 200mg Take 2 [facility] 100 mg 7-11 9103 tablets by ity of tablet 00:00: mouth [place] 00 daily. [facility] allopurinoL Yes [id number] 200mg Take 2 [facility] 100 mg 7-11 9103 tablets by ity of tablet 00:00: mouth [place] 00 daily. [facility] allopurinoL Yes [id number] 200mg Take 2 [facility] 100 mg 7-11 9103 tablets by ity of tablet 00:00: mouth [place] 00 daily. [facility] allopurinoL Yes [id number] 200mg Take 2 [facility] 100 mg 7-11 9103 tablets by ity of tablet 00:00: mouth [place] 00 daily. [facility] allopurinoL Yes [id number] 200mg Take 2 [facility] 100 mg 7-11 9103 tablets by ity of tablet 00:00: mouth [place] 00 daily. [facility] allopurinoL Yes [id number] 200mg Take 2 [facility] 100 mg 7-11 9103 tablets by ity of tablet 00:00: mouth [place] 00 daily. [facility] allopurinoL Yes [id number] 200mg Take 2 [facility] 100 mg 7-11 9103 tablets by ity of tablet 00:00: mouth [place] 00 daily. [facility] allopurinoL Yes [id number] 200mg Take 2 [facility] 100 mg 7-11 9103 tablets by ity of tablet 00:00: mouth [place] 00 daily. [facility] allopurinoL Yes [id number] 200mg Take 2 [facility] 100 mg 7-11 9103 tablets by ity of tablet 00:00: mouth [place] 00 daily. [facility] allopurinoL Yes [id number] 200mg Take 2 [facility] 100 mg 7-11 9103 tablets by ity of tablet 00:00: mouth [place] 00 daily. [facility] allopurinoL Yes [id number] 200mg Take 2 [facility] 100 mg 7-11 9103 tablets by ity of tablet 00:00: mouth [place] 00 daily. [facility] allopurinoL Yes [id number] 200mg Take 2 [facility] 100 mg 7-11 9103 tablets by ity of tablet 00:00: mouth [place] 00 daily. [facility] allopurinoL Yes [id number] 200mg Take 2 [facility] 100 mg 7-11 9103 tablets by ity of tablet 00:00: mouth [place] 00 daily. [facility] allopurinoL Yes [id number] 200mg Take 2 [facility] 100 mg 7-11 9103 tablets by ity of tablet 00:00: mouth [place] 00 daily. [facility] allopurinoL Yes [id number] 200mg Take 2 [facility] 100 mg 7-11 9103 tablets by ity of tablet 00:00: mouth [place] 00 daily. [facility] allopurinoL Yes [id number] 200mg Take 2 [facility] 100 mg 7-11 9103 tablets by ity of tablet 00:00: mouth [place] 00 daily. [facility] allopurinoL Yes [id number] 200mg Take 2 [facility] 100 mg 7-11 9103 tablets by ity of tablet 00:00: mouth [place] 00 daily. [facility] allopurinoL Yes [id number] 200mg Take 2 [facility] 100 mg 7-11 9103 tablets by ity of tablet 00:00: mouth [place] 00 daily. [facility] allopurinoL Yes [id number] 200mg Take 2 [facility] 100 mg 7-11 9103 tablets by ity of tablet 00:00: mouth [place] 00 daily. [facility] allopurinoL Yes [id number] 200mg Take 2 [facility] 100 mg 7-11 9103 tablets by ity of tablet 00:00: mouth [place] 00 daily. [facility] allopurinoL Yes [id number] 200mg Take 2 [facility] 100 mg 7-11 9103 tablets by ity of tablet 00:00: mouth [place] 00 daily. [facility] allopurinoL Yes [id number] 200mg Take 2 [facility] 100 mg 7-11 9103 tablets by ity of tablet 00:00: mouth [place] 00 daily. [facility] allopurinoL Yes [id number] 200mg Take 2 [facility] 100 mg 7-11 9103 tablets by ity of tablet 00:00: mouth [place] 00 daily. [facility] allopurinoL Yes [id number] 200mg Take 2 [facility] 100 mg 7-11 9103 tablets by ity of tablet 00:00: mouth [place] 00 daily. [facility] allopurinoL Yes [id number] 200mg Take 2 [facility] 100 mg 7-11 9103 tablets by ity of tablet 00:00: mouth [place] 00 daily. [facility] allopurinoL Yes [id number] 200mg Take 2 [facility] 100 mg 7-11 9103 tablets by ity of tablet 00:00: mouth [place] 00 daily. [facility] allopurinoL Yes [id number] 200mg Take 2 [facility] 100 mg 7-11 9103 tablets by ity of tablet 00:00: mouth [place] 00 daily. [facility] allopurinoL Yes [id number] 200mg Take 2 [facility] 100 mg 7-11 9103 tablets by ity of tablet 00:00: mouth [place] 00 daily. [facility] allopurinoL Yes [id number] 200mg Take 2 [facility] 100 mg 7-11 9103 tablets by ity of tablet 00:00: mouth [place] 00 daily. [facility] allopurinoL Yes [id number] 200mg Take 2 [facility] 100 mg 7-11 9103 tablets by ity of tablet 00:00: mouth [place] 00 daily. [facility] allopurinoL Yes [id number] 200mg Take 2 [facility] 100 mg 7-11 9103 tablets by ity of tablet 00:00: mouth [place] 00 daily. [facility] allopurinoL Yes [id number] 200mg Take 2 [facility] 100 mg 7-11 9103 tablets by ity of tablet 00:00: mouth [place] 00 daily. [facility] allopurinoL 2022- No [id number] 200mg Take 2 [facility] 100 mg 7-11 04-03 9103 tablets by ity of tablet 00:00: 00:00 mouth [place] 00 :00 daily. [facility] allopurinoL 2022- No [id number] 200mg Take 2 [facility] 100 mg 7-11 04-03 9103 tablets by ity of tablet 00:00: 00:00 mouth [place] 00 :00 daily. [facility] naproxen 2018-11 Yes [id number] 500mg Take 1 [facility] 500 mg 0-03 tablet by [facility] of tablet 00:00: mouth 2 [place] 00 (two) Medical times Branch daily with meals. naproxen 2018-11 Yes [id number] 500mg Take 1 [facility] 500 mg 0-03 tablet by [facility]y of tablet 00:00: mouth 2 [place] 00 (two) Medical times [facility] daily with meals. naproxen 2018-11 Yes [id number] 500mg Take 1 [facility] 500 mg 0-03 tablet by [facility] of tablet 00:00: mouth (two) Medical times [facility] daily with meals. naproxen 2018-11 Yes [id number] 500mg Take 1 [facility] 500 mg 0-03 tablet by [facility] of tablet 00:00: mouth (two) Medical times [facility] daily with meals. naproxen 2018-11 Yes [id number] 500mg Take 1 [facility] 500 mg 0-03 tablet by [facility] of tablet 00:00: mouth (two) Medical times [facility] daily with meals. naproxen 2018-11 Yes [id number] 500mg Take 1 [facility] 500 mg 0-03 tablet by [facility] of tablet 00:00: mouth (two) Medical times [facility] daily with meals. naproxen 2018-11 Yes [id number] 500mg Take 1 [facility] [place] 500 mg 0-03 tablet by [facility] of tablet 00:00: mouth (two) Medical times [facility] daily with meals. naproxen 2018-11 Yes [id number] 500mg Take 1 [facility] [place] 500 mg 0-03 tablet by [facility] of tablet 00:00: mouth (two) Medical times [facility] daily with meals. naproxen 2018-11 Yes [id number] 500mg Take 1 Un [place] 500 mg 0-03 tablet by [facility]y of tablet 00:00: mouth (two) Medical times [facility] daily with meals. naproxen 2018-11 Yes [id number] 500mg Take 1 Un [facility] 500 mg 0-03 tablet by [facility]y of tablet 00:00: mouth (two) Medical times [facility] daily with meals. naproxen 2018-11 Yes [id number] 500mg Take 1 Un [facility] 500 mg 0-03 tablet by [facility]y of tablet 00:00: mouth (two) Medical times [facility] daily with meals. naproxen 2018-11 Yes [id number] 500mg Take 1 Un [facility] 500 mg 0-03 tablet by [facility]y of tablet 00:00: mouth (two) Medical times [facility] daily with meals. naproxen 2018-11 Yes [id number] 500mg Take 1 Un [facility] 500 mg 0-03 tablet by [facility]y of tablet 00:00: mouth (two) Medical times [facility] daily with meals. naproxen 2018-11 Yes [id number] 500mg Take 1 Un [facility] 500 mg 0-03 tablet by [facility]y of tablet 00:00: mouth 2 [place] 00 (two) Medical times [facility] daily with meals. naproxen 2018-11- No [id number] 500mg Take 1 U nivers 500 mg 0-03 10-20 tablet by ity of tablet 00:00: 00:00 mouth 2 [place] 00 :00 (two) Medical times Branch daily with meals. naproxen 2018-11- No [id number] 500mg Take 1 U nivers 500 mg [...] of tablet 00:00: mouth [place] 00 daily. [facility] aspirin 81 2017-0 Yes 81mg Take 1 Unive rs mg EC 6-07 tablet by ity of tablet 00:00: mouth [place] 00 daily. [facility] aspirin 81 2017-0 Yes 81mg Take 1 Unive rs mg EC 6-07 tablet by ity of tablet 00:00: mouth [place] 00 daily. [facility] aspirin 81 2017-0 Yes 81mg Take 1 Unive rs mg EC 6-07 tablet by ity of tablet 00:00: mouth [place] 00 daily. [facility] aspirin 81 2017-0 Yes 81mg Take 1 Unive rs mg EC 6-07 tablet by ity of tablet 00:00: mouth [place] 00 daily. [facility] blood sugar 2015-11 Yes [id number] Testing [facility] diagnostic 2-02 TID, DX: ity o f (BLOOD 00:00: E11.40 [place] GLUCOSE 00 Medical TEST) [facility] blood sugar 2015-11 Yes [id number] Testing [facility] diagnostic 2-02 TID, DX: ity o f (BLOOD 00:00: E11.40 [place] GLUCOSE 00 Medical TEST) [facility] [place] blood sugar 2015-11 Yes [id number] Testing [facility] diagnostic 2-02 TID, DX: ity o f (BLOOD 00:00: E11.40 [place] GLUCOSE 00 Medical TEST) [facility] [place] blood sugar 2015-11 Yes [id number] Testing [facility] diagnostic 2-02 TID, DX: ity o f (BLOOD 00:00: E11.40 [place] GLUCOSE 00 Medical TEST) [facility] [place] blood sugar 2015-11 Yes [id number] Testing [facility] diagnostic 2-02 TID, DX: ity o f (BLOOD 00:00: E11.40 [place] GLUCOSE 00 Medical TEST) [facility] [place] blood sugar 2015-11 Yes [id number] Testing [facility] diagnostic 2-02 TID, DX: ity o f (BLOOD 00:00: E11.40 [place] GLUCOSE 00 Medical TEST) strip [facility] blood sugar 2015-11 Yes [id number] Testing [facility] diagnostic 2-02 TID, DX: ity o f (BLOOD 00:00: E11.40 [place] GLUCOSE 00 Medical TEST) [facility] [place] blood sugar 2015-11 Yes [id number] Testing [facility] diagnostic 2-02 TID, DX: ity o f (BLOOD 00:00: E11.40 [place] GLUCOSE 00 Medical TEST) strip [facility] blood sugar 2015-11 Yes [id number] Testing [facility] diagnostic 2-02 TID, DX: ity o f (BLOOD 00:00: E11.40 [place] GLUCOSE 00 Medical TEST) strip [facility] blood sugar 2015-11 Yes [id number] Testing [facility] diagnostic 2-02 TID, DX: ity o f (BLOOD 00:00: E11.40 [place] GLUCOSE 00 Medical TEST) strip [facility] blood sugar 2015-11 Yes [id number] Testing [facility] diagnostic 2-02 TID, DX: ity o f (BLOOD 00:00: E11.40 [place] GLUCOSE 00 Medical TEST) strip [facility] blood sugar 2015-11 Yes [id number] Testing [facility] diagnostic 2-02 TID, DX: ity o f (BLOOD 00:00: E11.40 [place] GLUCOSE 00 Medical TEST) strip [facility] blood sugar 2015-11 Yes [id number] Testing [facility] diagnostic 2-02 TID, DX: ity o f (BLOOD 00:00: E11.40 [place] GLUCOSE 00 Medical TEST) strip [facility] blood sugar 2015-11 Yes [id number] Testing [facility] diagnostic 2-02 TID, DX: ity o f (BLOOD 00:00: E11.40 [place] GLUCOSE 00 Medical TEST) strip [facility] blood sugar 2015-11 Yes [id number] Testing [facility] diagnostic 2-02 TID, DX: ity o f (BLOOD 00:00: E11.40 [place] GLUCOSE 00 Medical TEST) strip [facility] blood sugar 2015-11 Yes [id number] Testing [facility] diagnostic 2-02 TID, DX: ity o f (BLOOD 00:00: E11.40 [place] GLUCOSE 00 Medical TEST) strip [facility] blood sugar 2015-11 Yes [id number] Testing [facility] diagnostic 2-02 TID, DX: ity o f (BLOOD 00:00: E11.40 [place] GLUCOSE 00 Medical TEST) strip Branch blood sugar 2015-11 Yes [id number] Testing [facility] diagnostic 2-02 TID, DX: ity o f (BLOOD 00:00: E11.40 [place] GLUCOSE 00 Medical TEST) strip Branch blood sugar 2015-11 Yes [id number] Testing [facility], DX: ity o f (BLOOD 00:00: E11.40 [place] [facility]SE 00 Medical TEST) strip Branch blood sugar 2015-11 Yes [id number] Testing [facility] 2-02 TID, DX: [facility] o f (BLOOD 00:00: E11.40 [place] [facility]UCOSE 00 Medical TEST) strip Branch blood sugar 2015-11 Yes [id number] Testing [facility] diagnostic 2-02 TID, DX: [facility] o f (BLOOD 00:00: E11.40 [place] [facility]UCOSE 00 Medical TEST) strip Branch blood sugar 2015-11 Yes [id number] Testing [facility] diagnostic 2-02 TID, DX: [facility]y o f (BLOOD 00:00: E11.40 [place] [facility]UCOSE 00 Medical TEST) strip Branch blood sugar 2015-11 Yes [id number] Testing [facility] diagnostic 2-02 TID, DX: [facility]y o f (BLOOD 00:00: E11.40 [place] [facility]UCOSE 00 Medical TEST) strip Branch blood sugar 2015-11 Yes [id number] Testing [facility] diagnostic 2-02 TID, DX: [facility]y o f (BLOOD 00:00: E11.40 [place] [facility]UCOSE 00 Medical TEST) strip Branch blood sugar 2015-11 Yes [id number] Testing [facility] diagnostic 2-02 TID, DX: [facility]y o f (BLOOD 00:00: E11.40 [place] [facility]UCOSE 00 Medical TEST) strip Branch blood sugar 2015-11 Yes [id number] Testing [facility] diagnostic 2-02 TID, DX: ity o f (BLOOD 00:00: E11.40 [place] [facility]UCOSE 00 Medical TEST) strip Branch blood sugar 2015-11 Yes [id number] Testing [facility] diagnostic 2-02 TID, DX: ity o f (BLOOD 00:00: E11.40 [place] [facility]UCOSE 00 Medical TEST) strip Branch blood sugar 2015-11 Yes [id number] Testing [facility] diagnostic 2-02 TID, DX: ity o f (BLOOD 00:00: E11.40 [place] GLUCOSE 00 Medical TEST) strip Branch blood sugar 2015-11 Yes [id number] Testing [facility] diagnostic 2-02 TID, DX: ity o f (BLOOD 00:00: E11.40 [place] GLUCOSE 00 Medical TEST) strip Branch blood sugar 2015-11 Yes [id number] Testing [facility] diagnostic 2-02 TID, DX: ity o f (BLOOD 00:00: E11.40 [place] [facility]UCOSE 00 Medical TEST) strip Branch blood sugar 2015-11 Yes [id number] Testing [facility] diagnostic 2-02 TID, DX: ity o f (BLOOD 00:00: E11.40 [place] [facility]UCOSE 00 Medical TEST) strip Branch blood sugar 2015-11 Yes [id number] Testing [facility] diagnostic 2-02 TID, DX: ity o f (BLOOD 00:00: E11.40 [place] [facility]UCOSE 00 Medical TEST) strip Branch blood sugar 2015-11 Yes [id number] Testing [facility] diagnostic 2-02 TID, DX: ity o f (BLOOD 00:00: E11.40 [place] [facility]UCOSE 00 Medical TEST) strip Branch blood sugar 2015-11 Yes [id number] Testing [facility] diagnostic 2-02 TID, DX: ity o f (BLOOD 00:00: E11.40 [place] [facility]UCOSE 00 Medical TEST) strip Branch blood sugar 2015-11 Yes [id number] Testing [facility] diagnostic 2-02 TID, DX: [facility]y o f (BLOOD 00:00: E11.40 [place] GLUCOSE 00 Medical TEST) strip Branch blood sugar 2015-11 Yes [id number] Testing [facility] diagnostic 2-02 TID, DX: ity o f (BLOOD 00:00: E11.40 [place] [facility]UCOSE 00 Medical TEST) strip Branch blood sugar 2015-11 Yes [id number] Testing [facility] diagnostic 2-02 TID, DX: ity o f (BLOOD 00:00: E11.40 [place] GLUCOSE 00 Medical TEST) strip Branch blood sugar 2015-11 Yes [id number] Testing [facility] diagnostic 2-02 TID, DX: ity o f (BLOOD 00:00: E11.40 [place] GLUCOSE 00 Medical TEST) strip Branch blood sugar 2015-11 Yes [id number] Testing [facility] diagnostic 2-02 TID, DX: ity o f (BLOOD 00:00: E11.40 [place] GLUCOSE 00 Medical TEST) strip Branch blood sugar 2015-11 Yes [id number] Testing [facility] diagnostic 2-02 TID, DX: [facility] o f (BLOOD 00:00: E11.40 [place] [facility]UCOSE 00 Medical TEST) strip Branch blood sugar 2015-11 Yes [id number] Testing [facility] diagnostic 2-02 TID, DX: ity o f (BLOOD 00:00: E11.40 [place] [facility]UCOSE 00 Medical TEST) strip Branch blood sugar 2015-11 Yes [id number] Testing [facility] diagnostic 2-02 TID, DX: ity o f (BLOOD 00:00: E11.40 [place] [facility]UCOSE 00 Medical TEST) strip Branch blood sugar 2015-11 Yes [id number] Testing [facility] diagnostic 2-02 TID, DX: ity o f (BLOOD 00:00: E11.40 [place] GLUCOSE 00 Medical TEST) strip Branch blood sugar 2015-11 Yes [id number] Testing [facility] diagnostic 2-02 TID, DX: ity o f (BLOOD 00:00: E11.40 [place] GLUCOSE 00 Medical TEST) strip Branch blood sugar 2015-11 Yes [id number] Testing [facility] diagnostic 2-02 TID, DX: ity o f (BLOOD 00:00: E11.40 [place] GLUCOSE 00 Medical TEST) strip Branch blood sugar 2015-11 Yes [id number] Testing [facility] diagnostic 2-02 TID, DX: ity o f (BLOOD 00:00: E11.40 [place] GLUCOSE 00 Medical TEST) strip Branch blood sugar 2015-11 Yes [id number] Testing [facility] diagnostic 2-02 TID, DX: ity o f (BLOOD 00:00: E11.40 [place] GLUCOSE 00 Medical TEST) strip Branch blood sugar 2015-11 Yes [id number] Testing [facility] diagnostic 2-02 TID, DX: ity o f (BLOOD 00:00: E11.40 [place] GLUCOSE 00 Medical TEST) strip Branch blood sugar 2015-11 Yes [id number] Testing [facility] diagnostic 2-02 TID, DX: ity o f (BLOOD 00:00: E11.40 [place] GLUCOSE 00 Medical TEST) strip Branch blood sugar 2015-11 Yes [id number] Testing [facility] diagnostic 2-02 TID, DX: ity o f (BLOOD 00:00: E11.40 [place] GLUCOSE 00 Medical TEST) strip Branch blood sugar 2015-11 Yes [id number] Testing [facility] diagnostic 2-02 TID, DX: ity o f (BLOOD 00:00: E11.40 [place] GLUCOSE 00 Medical TEST) strip Branch blood sugar 2015-11 Yes [id number] Testing [facility] diagnostic 2-02 TID, DX: ity o f (BLOOD 00:00: E11.40 [place] [facility]UCOSE 00 Medical TEST) strip Branch blood sugar 2015-11 Yes [id number] Testing [facility] diagnostic 2-02 TID, DX: ity o f (BLOOD 00:00: E11.40 [place] [facility]UCOSE 00 Medical TEST) strip Branch blood sugar 2015-11 Yes [id number] Testing [facility] diagnostic 2-02 TID, DX: ity o f (BLOOD 00:00: E11.40 [place] [facility]UCOSE 00 Medical TEST) strip Branch blood sugar 2015-11 Yes [id number] Testing [facility] diagnostic 2-02 TID, DX: ity o f (BLOOD 00:00: E11.40 [place] [facility]UCOSE 00 Medical TEST) strip Branch blood sugar 2015-11 Yes [id number] Testing [facility] diagnostic 2-02 TID, DX: [facility]y o f (BLOOD 00:00: E11.40 [place] [facility]UCOSE 00 Medical TEST) strip Branch blood sugar 2015-11 Yes [id number] Testing [facility] diagnostic 2-02 TID, DX: [facility]y o f (BLOOD 00:00: E11.40 [place] [facility]UCOSE 00 Medical TEST) strip Branch blood sugar 2015-11 Yes [id number] Testing [facility] diagnostic 2-02 TID, DX: [facility]y o f (BLOOD 00:00: E11.40 [place] [facility]UCOSE 00 Medical TEST) strip Branch blood sugar 2015-11 Yes [id number] Testing [facility] diagnostic 2-02 TID, DX: ity o f (BLOOD 00:00: E11.40 [place] [facility]UCOSE 00 Medical TEST) strip Branch blood sugar 2015-11 Yes [id number] Testing [facility] diagnostic 2-02 TID, DX: ity o f (BLOOD 00:00: E11.40 [place] GLUCOSE 00 Medical TEST) strip Branch blood sugar 2015-11 Yes [id number] Testing [facility] diagnostic 2-02 TID, DX: ity o f (BLOOD 00:00: E11.40 [place] [facility]UCOSE 00 Medical TEST) strip Branch blood sugar 2015-11 Yes [id number] Testing [facility] diagnostic 2-02 TID, DX: ity o f (BLOOD 00:00: E11.40 [place] GLUCOSE 00 Medical TEST) strip Branch blood sugar 2015-11 Yes [id number] Testing [facility] diagnostic 2-02 TID, DX: ity o f (BLOOD 00:00: E11.40 [place] GLUCOSE 00 Medical TEST) strip Branch blood sugar 2015-11 Yes [id number] Testing [facility] diagnostic 2-02 TID, DX: ity o f (BLOOD 00:00: E11.40 [place] [facility]UCOSE 00 Medical TEST) strip Branch blood sugar 2015-11 Yes [id number] Testing [facility] diagnostic 2-02 TID, DX: ity o f (BLOOD 00:00: E11.40 [place] [facility]UCOSE 00 Medical TEST) strip Branch blood sugar 2015-11 Yes [id number] Testing [facility] diagnostic 2-02 TID, DX: ity o f (BLOOD 00:00: E11.40 [place] [facility]UCOSE 00 Medical TEST) strip Branch blood sugar 2015-11 Yes [id number] Testing [facility] diagnostic 2-02 TID, DX: ity o f (BLOOD 00:00: E11.40 [place] [facility]UCOSE 00 Medical TEST) strip Branch blood sugar 2015-11 Yes [id number] Testing [facility] diagnostic 2-02 TID, DX: ity o f (BLOOD 00:00: E11.40 [place] [facility]UCOSE 00 Medical TEST) strip Branch blood sugar 2015-11 Yes [id number] Testing [facility] diagnostic 2-02 TID, DX: ity o f (BLOOD 00:00: E11.40 [place] [facility]UCOSE 00 Medical TEST) strip Branch blood sugar 2015-11 Yes [id number] Testing [facility] diagnostic 2-02 TID, DX: ity o f (BLOOD 00:00: E11.40 [place] GLUCOSE 00 Medical TEST) strip Branch blood sugar 2015-11 Yes [id number] Testing [facility] diagnostic 2-02 TID, DX: ity o f (BLOOD 00:00: E11.40 [place] GLUCOSE 00 Medical TEST) strip Branch blood sugar 2015-11 Yes [id number] Testing [facility] diagnostic 2-02 TID, DX: ity o f (BLOOD 00:00: E11.40 [place] GLUCOSE 00 Medical TEST) strip Branch blood sugar 2015-11 Yes [id number] Testing [facility] diagnostic 2-02 TID, DX: ity o f (BLOOD 00:00: E11.40 [place] GLUCOSE 00 Medical TEST) strip Branch blood sugar 2015-11 Yes [id number] Testing [facility] diagnostic 2-02 TID, DX: ity o f (BLOOD 00:00: E11.40 [place] GLUCOSE 00 Medical TEST) strip Branch blood sugar 2015-11 Yes [id number] Testing [facility] diagnostic 2-02 TID, DX: ity o f (BLOOD 00:00: E11.40 [place] GLUCOSE 00 Medical TEST) strip Branch blood sugar 2015-11 Yes [id number] Testing [facility] diagnostic 2-02 TID, DX: ity o f (BLOOD 00:00: E11.40 [place] GLUCOSE 00 Medical TEST) strip Branch blood sugar 2015-11 Yes [id number] Testing [facility] diagnostic 2-02 TID, DX: ity o f (BLOOD 00:00: E11.40 [place] GLUCOSE 00 Medical TEST) strip Branch blood sugar 2015-11 Yes [id number] Testing [facility] diagnostic 2-02 TID, DX: ity o f (BLOOD 00:00: E11.40 [place] GLUCOSE 00 Medical TEST) strip Branch blood sugar 2015-11 Yes [id number] Testing [facility] diagnostic 2-02 TID, DX: ity o f (BLOOD 00:00: E11.40 [place] GLUCOSE 00 Medical TEST) strip Branch blood sugar 2015-11 Yes [id number] Testing [facility] diagnostic 2-02 TID, DX: ity o f (BLOOD 00:00: E11.40 [place] GLUCOSE 00 Medical TEST) strip Branch blood sugar 2015-11 Yes [id number] Testing [facility] diagnostic 2-02 TID, DX: ity o f (BLOOD 00:00: E11.40 [place] GLUCOSE 00 Medical TEST) strip Branch blood sugar 2015-11 Yes [id number] Testing [facility] diagnostic 2-02 TID, DX: ity o f (BLOOD 00:00: E11.40 [place] GLUCOSE 00 Medical TEST) strip Branch blood sugar 2015-11 Yes [id number] Testing [facility] diagnostic 2-02 TID, DX: ity o f (BLOOD 00:00: E11.40 [place] GLUCOSE 00 Medical TEST) strip Branch blood sugar 2015-11 Yes [id number] Testing [facility] diagnostic 2-02 TID, DX: ity o f (BLOOD 00:00: E11.40 [place] GLUCOSE 00 Medical TEST) strip Branch blood sugar 2015-11 Yes [id number] Testing [facility] diagnostic 2-02 TID, DX: ity o f (BLOOD 00:00: E11.40 [place] GLUCOSE 00 Medical TEST) strip Branch blood sugar 2015-11 Yes [id number] Testing [facility] diagnostic 2-02 TID, DX: ity o f (BLOOD 00:00: E11.40 [place] GLUCOSE 00 Medical TEST) strip Branch blood sugar 2015-11 Yes [id number] Testing [facility] diagnostic 2-02 TID, DX: ity o f (BLOOD 00:00: E11.40 [place] GLUCOSE 00 Medical TEST) strip Branch blood sugar 2015-11 Yes [id number] Testing [facility] diagnostic 2-02 TID, DX: ity o f (BLOOD 00:00: E11.40 [place] GLUCOSE 00 Medical TEST) strip Branch blood sugar 2015-11 Yes [id number] Testing [facility] diagnostic 2-02 TID, DX: ity o f (BLOOD 00:00: E11.40 [place] GLUCOSE 00 Medical TEST) strip Branch blood sugar 2015-11 Yes [id number] Testing [facility] diagnostic 2-02 TID, DX: ity o f (BLOOD 00:00: E11.40 [place] GLUCOSE 00 Medical TEST) strip Branch blood sugar 2015-11 Yes [id number] Testing [facility] diagnostic 2-02 TID, DX: ity o f (BLOOD 00:00: E11.40 [place] GLUCOSE 00 Medical TEST) strip Branch blood sugar 2015-11 Yes [id number] Testing [facility] diagnostic 2-02 TID, DX: ity o f (BLOOD 00:00: E11.40 [place] [facility]UCOSE 00 Medical TEST) strip Branch blood sugar 2015-11 Yes [id number] Testing [facility] diagnostic 2-02 TID, DX: ity o f (BLOOD 00:00: E11.40 [place] GLUCOSE 00 Medical TEST) strip Branch blood sugar 2015-11 Yes [id number] Testing [facility] diagnostic 2-02 TID, DX: ity o f (BLOOD 00:00: E11.40 [place] GLUCOSE 00 Medical TEST) strip Branch blood sugar 2015-11 Yes [id number] Testing [facility] diagnostic 2-02 TID, DX: ity o f (BLOOD 00:00: E11.40 [place] GLUCOSE 00 Medical TEST) strip Branch blood sugar 2015-11 Yes [id number] Testing [facility] diagnostic 2-02 TID, DX: ity o f (BLOOD 00:00: E11.40 [place] GLUCOSE 00 Medical TEST) strip Branch blood sugar 2015-11 Yes [id number] Testing [facility] diagnostic 2-02 TID, DX: ity o f (BLOOD 00:00: E11.40 [place] GLUCOSE 00 Medical TEST) strip Branch blood sugar 2015-11 Yes [id number] Testing [facility] diagnostic 2-02 TID, DX: ity o f (BLOOD 00:00: E11.40 [place] GLUCOSE 00 Medical TEST) strip Branch blood sugar 2015-11 Yes [id number] Testing [facility] diagnostic 2-02 TID, DX: ity o f (BLOOD 00:00: E11.40 [place] GLUCOSE 00 Medical TEST) strip Branch blood sugar 2015-11 Yes [id number] Testing [facility] diagnostic 2-02 TID, DX: ity o f (BLOOD 00:00: E11.40 [place] GLUCOSE 00 Medical TEST) strip Branch blood sugar 2015-11 Yes [id number] Testing [facility] diagnostic 2-02 TID, DX: ity o f (BLOOD 00:00: E11.40 [place] GLUCOSE 00 Medical TEST) strip Branch blood sugar 2015-11 Yes [id number] Testing [facility] diagnostic 2-02 TID, DX: ity o f (BLOOD 00:00: E11.40 [place] GLUCOSE 00 Medical TEST) strip Branch blood sugar 2015-11 Yes [id number] Testing [facility] diagnostic 2-02 TID, DX: ity o f (BLOOD 00:00: E11.40 [place] GLUCOSE 00 Medical TEST) strip Branch blood sugar 2015-11 Yes [id number] Testing [facility] diagnostic 2-02 TID, DX: ity o f (BLOOD 00:00: E11.40 [place] GLUCOSE 00 Medical TEST) strip Branch blood sugar 2015-11 Yes [id number] Testing [facility] diagnostic 2-02 TID, DX: ity o f (BLOOD 00:00: E11.40 [place] GLUCOSE 00 Medical TEST) strip Branch blood sugar 2015-11 Yes [id number] Testing [facility] diagnostic 2-02 TID, DX: ity o f (BLOOD 00:00: E11.40 [place] GLUCOSE 00 Medical TEST) strip Branch blood sugar 2015-11 Yes [id number] Testing [facility] diagnostic 2-02 TID, DX: ity o f (BLOOD 00:00: E11.40 [place] GLUCOSE 00 Medical TEST) strip Branch blood sugar 2015-11 Yes [id number] Testing [facility] diagnostic 2-02 TID, DX: ity o f (BLOOD 00:00: E11.40 [place] GLUCOSE 00 Medical TEST) strip Branch blood sugar 2015-11 Yes [id number] Testing [facility] diagnostic 2-02 TID, DX: ity o f (BLOOD 00:00: E11.40 [place] GLUCOSE 00 Medical TEST) strip Branch blood sugar 2015-11 Yes [id number] Testing [facility] diagnostic 2-02 TID, DX: ity o f (BLOOD 00:00: E11.40 [place] GLUCOSE 00 Medical TEST) strip Branch blood sugar 2015-11 Yes [id number] Testing [facility] diagnostic 2-02 TID, DX: ity o f (BLOOD 00:00: E11.40 [place] GLUCOSE 00 Medical TEST) strip Branch blood sugar 2015-11 Yes [id number] Testing [facility] diagnostic 2-02 TID, DX: ity o f (BLOOD 00:00: E11.40 [place] GLUCOSE 00 Medical TEST) strip Branch blood sugar 2015-11 Yes [id number] Testing [facility] diagnostic 2-02 TID, DX: ity o f (BLOOD 00:00: E11.40 [place] GLUCOSE 00 Medical TEST) strip Branch blood sugar 2015-11 Yes [id number] Testing [facility] diagnostic 2-02 TID, DX: ity o f (BLOOD 00:00: E11.40 [place] GLUCOSE 00 Medical TEST) strip Branch blood sugar 2015-11 Yes [id number] Testing [facility] diagnostic 2-02 TID, DX: ity o f (BLOOD 00:00: E11.40 [place] GLUCOSE 00 Medical TEST) strip Branch blood sugar 2015-11 Yes [id number] Testing [facility] diagnostic 2-02 TID, DX: ity o f (BLOOD 00:00: E11.40 [place] GLUCOSE 00 Medical TEST) strip Branch blood sugar 2015-11 Yes [id number] Testing [facility] diagnostic 2-02 TID, DX: ity o f (BLOOD 00:00: E11.40 [place] GLUCOSE 00 Medical TEST) strip Branch blood sugar 2015-11 Yes [id number] Testing [facility] diagnostic 2-02 TID, DX: ity o f (BLOOD 00:00: E11.40 [place] GLUCOSE 00 Medical TEST) strip Branch blood sugar 2015-11 Yes [id number] Testing [facility] diagnostic 2-02 TID, DX: ity o f (BLOOD 00:00: E11.40 [place] GLUCOSE 00 Medical TEST) strip Branch blood sugar 2015-11 Yes [id number] Testing [facility] diagnostic 2-02 TID, DX: ity o f (BLOOD 00:00: E11.40 [place] GLUCOSE 00 Medical TEST) strip Branch blood sugar 2015-11 Yes [id number] Testing [facility] diagnostic 2-02 TID, DX: ity o f (BLOOD 00:00: E11.40 [place] GLUCOSE 00 Medical TEST) strip Branch blood sugar 2015-11 Yes [id number] Testing [facility] diagnostic 2-02 TID, DX: ity o f (BLOOD 00:00: E11.40 [place] GLUCOSE 00 Medical TEST) strip Branch blood sugar 2015-11 Yes [id number] Testing [facility] diagnostic 2-02 TID, DX: ity o f (BLOOD 00:00: E11.40 [place] GLUCOSE 00 Medical TEST) strip Branch blood sugar 2015-11 Yes [id number] Testing [facility] diagnostic 2-02 TID, DX: ity o f (BLOOD 00:00: E11.40 [place] GLUCOSE 00 Medical TEST) strip Branch blood sugar 2015-11 Yes [id number] Testing [facility] diagnostic 2-02 TID, DX: ity o f (BLOOD 00:00: E11.40 [place] GLUCOSE 00 Medical TEST) strip Branch blood sugar 2015-11 Yes [id number] Testing [facility] diagnostic 2-02 TID, DX: ity o f (BLOOD 00:00: E11.40 [place] GLUCOSE 00 Medical TEST) strip Branch blood sugar 2015-11 Yes [id number] Testing [facility] diagnostic 2-02 TID, DX: ity o f (BLOOD 00:00: E11.40 [place] GLUCOSE 00 Medical TEST) strip Branch blood sugar 2015-11 Yes [id number] Testing [facility] diagnostic 2-02 TID, DX: ity o f (BLOOD 00:00: E11.40 [place] GLUCOSE 00 Medical TEST) strip Branch blood sugar 2015-11 Yes [id number] Testing [facility] diagnostic 2-02 TID, DX: ity o f (BLOOD 00:00: E11.40 [place] GLUCOSE 00 Medical TEST) strip Branch blood sugar 2015-11 Yes [id number] Testing [facility] diagnostic 2-02 TID, DX: ity o f (BLOOD 00:00: E11.40 [place] GLUCOSE 00 Medical TEST) strip Branch blood sugar 2015-11 Yes [id number] Testing [facility] diagnostic 2-02 TID, DX: ity o f (BLOOD 00:00: E11.40 [place] GLUCOSE 00 Medical TEST) strip Branch blood sugar 2015-11 Yes [id number] Testing [facility] diagnostic 2-02 TID, DX: ity o f (BLOOD 00:00: E11.40 [place] GLUCOSE 00 Medical TEST) strip Branch blood sugar 2015-11 Yes [id number] Testing [facility] diagnostic 2-02 TID, DX: ity o f (BLOOD 00:00: E11.40 [place] GLUCOSE 00 Medical TEST) strip Branch blood sugar 2015-11 Yes [id number] Testing [facility] diagnostic 2-02 TID, DX: ity o f (BLOOD 00:00: E11.40 [place] GLUCOSE 00 Medical TEST) strip Branch blood sugar 2015-11 Yes [id number] Testing [facility] diagnostic 2-02 TID, DX: ity o f (BLOOD 00:00: E11.40 [place] GLUCOSE 00 Medical TEST) strip Branch blood sugar 2015-11 Yes [id number] Testing [facility] diagnostic 2-02 TID, DX: ity o f (BLOOD 00:00: E11.40 [place] GLUCOSE 00 Medical TEST) strip Branch blood sugar 2015-11 Yes [id number] Testing [facility] diagnostic 2-02 TID, DX: ity o f (BLOOD 00:00: E11.40 [place] GLUCOSE 00 Medical TEST) strip Branch blood sugar 2015-11 Yes [id number] Testing [facility] diagnostic 2-02 TID, DX: ity o f (BLOOD 00:00: E11.40 [place] GLUCOSE 00 Medical TEST) strip Branch blood sugar 2015-11 Yes [id number] Testing [facility] diagnostic 2-02 TID, DX: ity o f (BLOOD 00:00: E11.40 [place] GLUCOSE 00 Medical TEST) strip Branch blood sugar 2015-11 Yes [id number] Testing [facility] diagnostic 2-02 TID, DX: ity o f (BLOOD 00:00: E11.40 [place] GLUCOSE 00 Medical TEST) strip Branch blood sugar 2015-11 Yes [id number] Testing [facility] diagnostic 2-02 TID, DX: ity o f (BLOOD 00:00: E11.40 [place] GLUCOSE 00 Medical TEST) strip Branch blood sugar 2015-11 Yes [id number] Testing [facility] diagnostic 2-02 TID, DX: ity o f (BLOOD 00:00: E11.40 [place] GLUCOSE 00 Medical TEST) strip Branch blood sugar 2015-11 Yes [id number] Testing [facility] diagnostic 2-02 TID, DX: ity [...] Branch Kit Insulin Yes Use as [facility] Ox[facility], 1-13 directed ity of Disposable, 00:00: to [place] (RELION PEN 00 administer Me dical NEEDLES) 32 insulin Branc h gauge x three 5/32" Ndle times a day. For ICD 10 code of: E11.40 Insulin Yes Use as [facility] Ox[facility], 1-13 directed ity of Disposable, 00:00: to [place] (RELION PEN 00 administer Me dical NEEDLES) 32 insulin Branc h gauge x three 5/32" Ndle times a day. For ICD 10 code of: E11.40 Insulin 0 Yes Use as [facility] Ox[facility], 1-13 directed ity of Disposable, 00:00: to [place] (RELION PEN 00 administer Me dical NEEDLES) 32 insulin Branc h gauge x three 5/32" Ndle times a day. For ICD 10 code of: E11.40 Insulin 0 Yes Use as [facility] Ox[facility], 1-13 directed ity of Disposable, 00:00: to [place] (RELION PEN 00 administer Me dical NEEDLES) 32 insulin Branc h gauge x three 5/32" Ndle times a day. For ICD 10 code of: E11.40 Insulin 2016-0 Yes Use as [facility] Ox[facility], 1-13 directed ity of Disposable, 00:00: to [place] (RELION PEN 00 administer Me dical NEEDLES) 32 insulin Branc h gauge x three 5/32" Ndle times a day. For ICD 10 code of: E11.40 Insulin 2016-0 Yes Use as [facility] Ox[facility], 1-13 directed ity of Disposable, 00:00: to [place] (RELION PEN 00 administer Me dical NEEDLES) 32 insulin Branc h gauge x three 5/32" Ndle times a day. For ICD 10 code of: E11.40 Insulin 2016-0 Yes Use as [facility] Ox[facility], 1-13 directed ity of Disposable, 00:00: to [place] (RELION PEN 00 administer Me dical NEEDLES) 32 insulin Branc h gauge x three 5/32" Ndle times a day. For ICD 10 code of: E11.40 Insulin 2016-0 Yes Use as [facility] Ox[facility], 1-13 directed ity of Disposable, 00:00: to [place] (RELION PEN 00 administer Me dical NEEDLES) 32 insulin Branc h gauge x three 5/32" Ndle times a day. For ICD 10 code of: E11.40 Insulin 2016-0 Yes Use as [facility] Ox[facility], 1-13 directed ity of Disposable, 00:00: to [place] (RELION PEN 00 administer Me dical NEEDLES) 32 insulin Branc h gauge x three 5/32" Ndle times a day. For ICD 10 code of: E11.40 Insulin 2016-0 Yes Use as [facility] Ox[facility], 1-13 directed ity of Disposable, 00:00: to [place] (RELION PEN 00 administer Me dical NEEDLES) 32 insulin Branc h gauge x three 5/32" Ndle times a day. For ICD 10 code of: E11.40 Insulin 2016-0 Yes Use as [facility], 1-13 directed ity of Disposable, 00:00: to [place] (RELION PEN 00 administer Me dical NEEDLES) 32 insulin Branc h gauge x three 5/32" Ndle times a day. For ICD 10 code of: E11.40 Insulin 2016-0 Yes Use as [facility] Ox[facility], 1-13 directed ity of Disposable, 00:00: to [place] (RELION PEN 00 administer Me dical NEEDLES) 32 insulin Branc h gauge x three 5/32" Ndle times a day. For ICD 10 code of: E11.40 Insulin 2016-0 Yes Use as [facility] Ox[facility], 1-13 directed ity of Disposable, 00:00: to [place] (RELION PEN 00 administer Me dical NEEDLES) 32 insulin Branc h gauge x three 5/32" Ndle times a day. For ICD 10 code of: E11.40 Insulin 2016-0 Yes Use as [facility], 1-13 directed ity of Disposable, 00:00: to [place] (RELION PEN 00 administer Me dical NEEDLES) 32 insulin Branc h gauge x three 5/32" Ndle times a day. For ICD 10 code of: E11.40 Insulin 2016-0 Yes Use as [facility] Ox[facility], 1-13 directed ity of Disposable, 00:00: to [place] (RELION PEN 00 administer Me dical NEEDLES) 32 insulin Branc h gauge x three 5/32" Ndle times a day. For ICD 10 code of: E11.40 Insulin 2016-0 Yes Use as [facility], 1-13 directed ity of Disposable, 00:00: to [place] (RELION PEN 00 administer Me dical NEEDLES) 32 insulin Branc h gauge x three 5/32" Ndle times a day. For ICD 10 code of: E11.40 Insulin 2016-0 Yes Use as [facility], 1-13 directed ity of Disposable, 00:00: to [place] (RELION PEN 00 administer Me dical NEEDLES) 32 insulin Branc h gauge x three 5/32" Ndle times a day. For ICD 10 code of: E11.40 Insulin 2016-0 Yes Use as [facility], 1-13 directed ity of Disposable, 00:00: to [place] (RELION PEN 00 administer Me dical NEEDLES) 32 insulin Branc h gauge x three 5/32" Ndle times a day. For ICD 10 code of: E11.40 Insulin 2016-0 Yes Use as [facility] Ox[facility], 1-13 directed ity of Disposable, 00:00: to [place] (RELION PEN 00 administer Me dical NEEDLES) 32 insulin Branc h gauge x three 5/32" Ndle times a day. For ICD 10 code of: E11.40 Insulin 2016-0 Yes Use as [facility], 1-13 directed ity of Disposable, 00:00: to [place] (RELION PEN 00 administer Me dical NEEDLES) 32 insulin Branc h gauge x three 5/32" Ndle times a day. For ICD 10 code of: E11.40 Insulin 2016-0 Yes Use as [facility], 1-13 directed ity of Disposable, 00:00: to [place] (RELION PEN 00 administer Me dical NEEDLES) 32 insulin Branc h gauge x three 5/32" Ndle times a day. For ICD 10 code of: E11.40 Insulin 2016-0 Yes Use as [facility], 1-13 directed ity of Disposable, 00:00: to [place] (RELION PEN 00 administer Me dical NEEDLES) 32 insulin Branc h gauge x three 5/32" Ndle times a day. For ICD 10 code of: E11.40 Insulin 2016-0 Yes Use as [facility], 1-13 directed ity of Disposable, 00:00: to [place] (RELION PEN 00 administer Me dical NEEDLES) 32 insulin Branc h gauge x three 5/32" Ndle times a day. For ICD 10 code of: E11.40 Insulin 2016-0 Yes Use as [facility], 1-13 directed ity of Disposable, 00:00: to [place] (RELION PEN 00 administer Me dical NEEDLES) 32 insulin Branc h gauge x three 5/32" Ndle times a day. For ICD 10 code of: E11.40 Insulin 2016-0 Yes Use as [facility], 1-13 directed ity of Disposable, 00:00: to [place] (RELION PEN 00 administer Me dical NEEDLES) 32 insulin Branc h gauge x three 5/32" Ndle times a day. For ICD 10 code of: E11.40 Insulin 2016-0 Yes Use as [facility], 1-13 directed ity of Disposable, 00:00: to [place] (RELION PEN 00 administer Me dical NEEDLES) 32 insulin Branc h gauge x three 5/32" Ndle times a day. For ICD 10 code of: E11.40 Insulin 2016-0 Yes Use as [facility], 1-13 directed ity of Disposable, 00:00: to [place] ([facility] P[facility] 00 administer Me dical NEEDLES) 32 insulin Branc h gauge x three 5/32" Ndle times a day. For ICD 10 code of: E11.40 Insulin 2016-0 Yes Use as [facility], 1-13 directed ity of Disposable, 00:00: to [place] ([facility] 00 administer Me dical NEEDLES) 32 insulin Branc h gauge x three 5/32" Ndle times a day. For ICD 10 code of: E11.40 Insulin 2016-0 Yes Use as [facility], 1-13 directed ity of Disposable, 00:00: to [place] ([facility] PEN 00 administer Me dical NEEDLES) 32 insulin Branc h gauge x three 5/32" Ndle times a day. For ICD 10 code of: E11.40 Insulin 2016-0 Yes Use as [facility], 1-13 directed ity of Disposable, 00:00: to [place] ([facility] PEN 00 administer Me dical NEEDLES) 32 insulin Branc h gauge x three 5/32" Ndle times a day. For ICD 10 code of: E11.40 Insulin 2016-0 Yes Use as [facility], 1-13 directed ity of Disposable, 00:00: to [place] ([facility] PEN 00 administer Me dical NEEDLES) 32 insulin Branc h gauge x three 5/32" Ndle times a day. For ICD 10 code of: E11.40 Insulin 2016-0 Yes Use as [facility], 1-13 directed ity of Disposable, 00:00: to [place] ([facility] PEN 00 administer Me dical NEEDLES) 32 insulin Branc h gauge x three 5/32" Ndle times a day. For ICD 10 code of: E11.40 Insulin 2016-0 Yes Use as [facility], 1-13 directed ity of Disposable, 00:00: to [place] ([facility] PEN 00 administer Me dical NEEDLES) 32 insulin Branc h gauge x three 5/32" Ndle times a day. For ICD 10 code of: E11.40 Insulin 2016-0 Yes Use as [facility], 1-13 directed ity of Disposable, 00:00: to [place] ([facility] PEN 00 administer Me dical NEEDLES) 32 insulin Branc h gauge x three 5/32" Ndle times a day. For ICD 10 code of: E11.40 Insulin 2016-0 Yes Use as [facility], 1-13 directed ity of Disposable, 00:00: to [place] ([facility] PEN 00 administer Me dical NEEDLES) 32 insulin Branc h gauge x three 5/32" Ndle times a day. For ICD 10 code of: E11.40 Insulin 2016-0 Yes Use as [facility], 1-13 directed ity of Disposable, 00:00: to [place] ([facility] PEN 00 administer Me dical NEEDLES) 32 insulin Branc h gauge x three 5/32" Ndle times a day. For ICD 10 code of: E11.40 Insulin 2016-0 Yes Use as [facility], 1-13 directed ity of Disposable, 00:00: to [place] ([facility] PEN 00 administer Me dical NEEDLES) 32 insulin Branc h gauge x three 5/32" Ndle times a day. For ICD 10 code of: E11.40 Insulin 2016-0 Yes Use as [facility], 1-13 directed ity of Disposable, 00:00: to [place] ([facility] PEN 00 administer Me dical NEEDLES) 32 insulin Branc h gauge x three 5/32" Ndle times a day. For ICD 10 code of: E11.40 Insulin 2016-0 Yes Use as [facility], 1-13 directed ity of Disposable, 00:00: to [place] ([facility] PEN 00 administer Me dical NEEDLES) 32 insulin Branc h gauge x three 5/32" Ndle times a day. For ICD 10 code of: E11.40 Insulin 2016-0 Yes Use as [facility], 1-13 directed ity of Disposable, 00:00: to [place] ([facility] PEN 00 administer Me dical NEEDLES) 32 insulin Branc h gauge x three 5/32" Ndle times a day. For ICD 10 code of: E11.40 Insulin 2016-0 Yes Use as [facility], 1-13 directed ity of Disposable, 00:00: to [place] ([facility] PEN 00 administer Me dical NEEDLES) 32 insulin Branc h gauge x three 5/32" Ndle times a day. For ICD 10 code of: E11.40 Insulin 2016-0 Yes Use as [facility], 1-13 directed ity of Disposable, 00:00: to [place] ([facility] PEN 00 administer Me dical NEEDLES) 32 insulin Branc h gauge x three 5/32" Ndle times a day. For ICD 10 code of: E11.40 Insulin 2016-0 Yes Use as [facility], 1-13 directed ity of Disposable, 00:00: to [place] ([facility] PEN 00 administer Me dical NEEDLES) 32 insulin Branc h gauge x three 5/32" Ndle times a day. For ICD 10 code of: E11.40 Insulin 2016-0 Yes Use as [facility], 1-13 directed ity of Disposable, 00:00: to [place] ([facility] PEN 00 administer Me dical NEEDLES) 32 insulin Branc h gauge x three 5/32" Ndle times a day. For ICD 10 code of: E11.40 Insulin 2016-0 Yes Use as [facility], 1-13 directed ity of Disposable, 00:00: to [place] ([facility] PEN 00 administer Me dical NEEDLES) 32 insulin Branc h gauge x three 5/32" Ndle times a day. For ICD 10 code of: E11.40 Insulin 2016-0 Yes Use as [facility], 1- directed ity of Disposable, 00:00: to [place] ([facility]EN 00 administer Me dical NEEDLES) 32 insulin Branc h gauge x three 5/32" Ndle times a day. For ICD 10 code of: E11.40 Insulin 2016-0 Yes Use as [facility], 1- directed ity of Disposable, 00:00: to [place] ([facility] PEN 00 administer Me dical NEEDLES) 32 insulin Branc h gauge x three 5/32" Ndle times a day. For ICD 10 code of: E11.40 Insulin 2016-0 Yes Use as [facility], 1- directed ity of Disposable, 00:00: to [place] ([facility] PEN 00 administer Me dical NEEDLES) 32 insulin Branc h gauge x three 5/32" Ndle times a day. For ICD 10 code of: E11.40 Insulin 2016-0 Yes Use as [facility], 1- directed ity of Disposable, 00:00: to [place] ([facility]EN 00 administer Me dical NEEDLES) 32 insulin Branc h gauge x three 5/32" Ndle times a day. For ICD 10 code of: E11.40 Insulin 2016-0 Yes Use as [facility], 1- directed ity of Disposable, 00:00: to [place] ([facility] PEN 00 administer Me dical NEEDLES) 32 insulin Branc h gauge x three 5/32" Ndle times a day. For ICD 10 code of: E11.40 Insulin 2016-0 Yes Use as [facility], 1-13 directed ity of Disposable, 00:00: to [place] ([facility]EN 00 administer Me dical NEEDLES) 32 insulin Branc h gauge x three 5/32" Ndle times a day. For ICD 10 code of: E11.40 Insulin 2016-0 Yes Use as [facility], 1-13 directed ity of Disposable, 00:00: to [place] ([facility] PEN 00 administer Me dical NEEDLES) 32 insulin Branc h gauge x three 5/32" Ndle times a day. For ICD 10 code of: E11.40 Insulin 2016-0 Yes Use as [facility], 1-13 directed ity of Disposable, 00:00: to [place] ([facility] PEN 00 administer Me dical NEEDLES) 32 insulin Branc h gauge x three 5/32" Ndle times a day. For ICD 10 code of: E11.40 Insulin 2016-0 Yes Use as [facility], 1- directed ity of Disposable, 00:00: to [place] ([facility] PEN 00 administer Me dical NEEDLES) 32 insulin Branc h gauge x three 5/32" Ndle times a day. For ICD 10 code of: E11.40 Insulin 2016-0 Yes Use as [facility], 1- directed ity of Disposable, 00:00: to [place] ([facility] PEN 00 administer Me dical NEEDLES) 32 insulin Branc h gauge x three 5/32" Ndle times a day. For ICD 10 code of: E11.40 Insulin 2016-0 Yes Use as [facility], 1- directed ity of Disposable, 00:00: to [place] ([facility] PEN 00 administer Me dical NEEDLES) 32 insulin Branc h gauge x three 5/32" Ndle times a day. For ICD 10 code of: E11.40 Insulin 2016-0 Yes Use as [facility], 1- directed ity of Disposable, 00:00: to [place] ([facility]EN 00 administer Me dical NEEDLES) 32 insulin Branc h gauge x three 5/32" Ndle times a day. For ICD 10 code of: E11.40 Insulin 2016-0 Yes Use as [facility], 1-13 directed ity of Disposable, 00:00: to [place] ([facility]EN 00 administer Me dical NEEDLES) 32 insulin Branc h gauge x three 5/32" Ndle times a day. For ICD 10 code of: E11.40 Insulin 2016-0 Yes Use as [facility], 1-13 directed ity of Disposable, 00:00: to [place] ([facility] PEN 00 administer Me dical NEEDLES) 32 insulin Branc h gauge x three 5/32" Ndle times a day. For ICD 10 code of: E11.40 Insulin 2016-0 Yes Use as [facility], 1-13 directed ity of Disposable, 00:00: to [place] ([facility] PEN 00 administer Me dical NEEDLES) 32 insulin Branc h gauge x three 5/32" Ndle times a day. For ICD 10 code of: E11.40 Insulin 2016-0 Yes Use as [facility], 1-13 directed ity of Disposable, 00:00: to [place] ([facility] PEN 00 administer Me dical NEEDLES) 32 insulin Branc h gauge x three 5/32" Ndle times a day. For ICD 10 code of: E11.40 Insulin 2016-0 Yes Use as [facility], 1-13 directed ity of Disposable, 00:00: to [place] ([facility] PEN 00 administer Me dical NEEDLES) 32 insulin Branc h gauge x three 5/32" Ndle times a day. For ICD 10 code of: E11.40 Insulin 2016-0 Yes Use as [facility], 1-13 directed ity of Disposable, 00:00: to [place] ([facility] PEN 00 administer Me dical NEEDLES) 32 insulin Branc h gauge x three 5/32" Ndle times a day. For ICD 10 code of: E11.40 Insulin 2016-0 Yes Use as [facility], 1- directed ity of Disposable, 00:00: to [place] ([facility] PEN 00 administer Me dical NEEDLES) 32 insulin Branc h gauge x three 5/32" Ndle times a day. For ICD 10 code of: E11.40 Insulin 2016-0 Yes Use as [facility], 1-13 directed ity of Disposable, 00:00: to [place] ([facility] PEN 00 administer Me dical NEEDLES) 32 insulin Branc h gauge x three 5/32" Ndle times a day. For ICD 10 code of: E11.40 Insulin 2016-0 Yes Use as [facility], 1-13 directed ity of Disposable, 00:00: to [place] ([facility] PEN 00 administer Me dical NEEDLES) 32 insulin Branc h gauge x three 5/32" Ndle times a day. For ICD 10 code of: E11.40 Insulin 2016-0 Yes Use as [facility], 1-13 directed ity of Disposable, 00:00: to [place] ([facility] PEN 00 administer Me dical NEEDLES) 32 insulin Branc h gauge x three 5/32" Ndle times a day. For ICD 10 code of: E11.40 Insulin 2016-0 Yes Use as [facility], 1-13 directed ity of Disposable, 00:00: to [place] ([facility] PEN 00 administer Me dical NEEDLES) 32 insulin Branc h gauge x three 5/32" Ndle times a day. For ICD 10 code of: E11.40 Insulin 2016-0 Yes Use as [facility], 1-13 directed ity of Disposable, 00:00: to [place] ([facility] PEN 00 administer Me dical NEEDLES) 32 insulin Branc h gauge x three 5/32" Ndle times a day. For ICD 10 code of: E11.40 Insulin 2016-0 Yes Use as [facility], 1- directed ity of Disposable, 00:00: to [place] ([facility] PEN 00 administer Me dical NEEDLES) 32 insulin Branc h gauge x three 5/32" Ndle times a day. For ICD 10 code of: E11.40 Insulin 2016-0 Yes Use as [facility], 1- directed ity of Disposable, 00:00: to [place] ([facility] PEN 00 administer Me dical NEEDLES) 32 insulin Branc h gauge x three 5/32" Ndle times a day. For ICD 10 code of: E11.40 Insulin 2016-0 Yes Use as [facility], 1- directed ity of Disposable, 00:00: to [place] ([facility] PEN 00 administer Me dical NEEDLES) 32 insulin Branc h gauge x three 5/32" Ndle times a day. For ICD 10 code of: E11.40 Insulin 2016-0 Yes Use as [facility], 1- directed ity of Disposable, 00:00: to [place] ([facility] PEN 00 administer Me dical NEEDLES) 32 insulin Branc h gauge x three 5/32" Ndle times a day. For ICD 10 code of: E11.40 Insulin 2016-0 Yes Use as [facility], 1- directed ity of Disposable, 00:00: to [place] ([facility] PEN 00 administer Me dical NEEDLES) 32 insulin Branc h gauge x three 5/32" Ndle times a day. For ICD 10 code of: E11.40 Insulin 2016-0 Yes Use as [facility], 1-13 directed ity of Disposable, 00:00: to [place] ([facility] PEN 00 administer Me dical NEEDLES) 32 insulin Branc h gauge x three 5/32" Ndle times a day. For ICD 10 code of: E11.40 Insulin 2016-0 Yes Use as [facility], 1-13 directed ity of Disposable, 00:00: to [place] ([facility] PEN 00 administer Me dical NEEDLES) 32 insulin Branc h gauge x three 5/32" Ndle times a day. For ICD 10 code of: E11.40 Insulin 2016-0 Yes Use as [facility], 1- directed ity of Disposable, 00:00: to [place] ([facility] PEN 00 administer Me dical NEEDLES) 32 insulin Branc h gauge x three 5/32" Ndle times a day. For ICD 10 code of: E11.40 Insulin 2016-0 Yes Use as [facility], 1- directed ity of Disposable, 00:00: to [place] ([facility] PEN 00 administer Me dical NEEDLES) 32 insulin Branc h gauge x three 5/32" Ndle times a day. For ICD 10 code of: E11.40 Insulin 2016-0 Yes Use as [facility], 1- directed ity of Disposable, 00:00: to [place] ([facility] PEN 00 administer Me dical NEEDLES) 32 insulin Branc h gauge x three 5/32" Ndle times a day. For ICD 10 code of: E11.40 Insulin 2016-0 Yes Use as [facility], 1- directed ity of Disposable, 00:00: to [place] ([facility] PEN 00 administer Me dical NEEDLES) 32 insulin Branc h gauge x three 5/32" Ndle times a day. For ICD 10 code of: E11.40 Insulin 2016-0 Yes Use as [facility], 1- directed ity of Disposable, 00:00: to [place] ([facility] PEN 00 administer Me dical NEEDLES) 32 insulin Branc h gauge x three 5/32" Ndle times a day. For ICD 10 code of: E11.40 Insulin 2016-0 Yes Use as [facility], 1- directed ity of Disposable, 00:00: to [place] ([facility] PEN 00 administer Me dical NEEDLES) 32 insulin Branc h gauge x three 5/32" Ndle times a day. For ICD 10 code of: E11.40 Insulin 2016-0 Yes Use as [facility], 1-13 directed ity of Disposable, 00:00: to [place] ([facility] PEN 00 administer Me dical NEEDLES) 32 insulin Branc h gauge x three 5/32" Ndle times a day. For ICD 10 code of: E11.40 Insulin 2016-0 Yes Use as [facility], 1- directed ity of Disposable, 00:00: to [place] ([facility] PEN 00 administer Me dical NEEDLES) 32 insulin Branc h gauge x three 5/32" Ndle times a day. For ICD 10 code of: E11.40 Insulin 2016-0 Yes Use as [facility], 1- directed ity of Disposable, 00:00: to [place] ([facility] PEN 00 administer Me dical NEEDLES) 32 insulin Branc h gauge x three 5/32" Ndle times a day. For ICD 10 code of: E11.40 Insulin 2016-0 Yes Use as [facility], 1- directed ity of Disposable, 00:00: to [place] ([facility] PEN 00 administer Me dical NEEDLES) 32 insulin Branc h gauge x three 5/32" Ndle times a day. For ICD 10 code of: E11.40 Insulin 2016-0 Yes Use as [facility], 1 directed ity of Disposable, 00:00: to [place] ([facility] PEN 00 administer Me dical NEEDLES) 32 insulin Branc h gauge x three 5/32" Ndle times a day. For ICD 10 code of: E11.40 Insulin 2016-0 Yes Use as [facility], 1 directed ity of Disposable, 00:00: to [place] ([facility] PEN 00 administer Me dical NEEDLES) 32 insulin Branc h gauge x three 5/32" Ndle times a day. For ICD 10 code of: E11.40 Insulin 2016-0 Yes Use as [facility], 1 directed ity of Disposable, 00:00: to [place] ([facility] PEN 00 administer Me dical NEEDLES) 32 insulin Branc h gauge x three 5/32" Ndle times a day. For ICD 10 code of: E11.40 Insulin 2016-0 Yes Use as [facility], 1- directed ity of Disposable, 00:00: to [place] ([facility] PEN 00 administer Me dical NEEDLES) 32 insulin Branc h gauge x three 5/32" Ndle times a day. For ICD 10 code of: E11.40 Insulin 2016-0 Yes Use as [facility], 1- directed ity of Disposable, 00:00: to [place] ([facility] PEN 00 administer Me dical NEEDLES) 32 insulin Branc h gauge x three 5/32" Ndle times a day. For ICD 10 code of: E11.40 Insulin 2016-0 Yes Use as [facility], 1- directed ity of Disposable, 00:00: to [place] ([facility] PEN 00 administer Me dical NEEDLES) 32 insulin Branc h gauge x three 5/32" Ndle times a day. For ICD 10 code of: E11.40 Insulin 2016-0 Yes Use as [facility], 1- directed ity of Disposable, 00:00: to [place] ([facility] PEN 00 administer Me dical NEEDLES) 32 insulin Branc h gauge x three 5/32" Ndle times a day. For ICD 10 code of: E11.40 Insulin 2016-0 Yes Use as [facility], 1- directed ity of Disposable, 00:00: to [place] ([facility] PEN 00 administer Me dical NEEDLES) 32 insulin Branc h gauge x three 5/32" Ndle times a day. For ICD 10 code of: E11.40 Insulin 2016-0 Yes Use as [facility], 1 directed ity of Disposable, 00:00: to [place] ([facility] PEN 00 administer Me dical NEEDLES) 32 insulin Branc h gauge x three 5/32" Ndle times a day. For ICD 10 code of: E11.40 Insulin 2016-0 Yes Use as [facility], 1- directed ity of Disposable, 00:00: to [place] ([facility] PEN 00 administer Me dical NEEDLES) 32 insulin Branc h gauge x three 5/32" Ndle times a day. For ICD 10 code of: E11.40 Insulin 2016-0 Yes Use as [facility], 1- directed ity of Disposable, 00:00: to [place] ([facility] PEN 00 administer Me dical NEEDLES) 32 insulin Branc h gauge x three 5/32" Ndle times a day. For ICD 10 code of: E11.40 Insulin 2016-0 Yes Use as [facility], 1- directed ity of Disposable, 00:00: to [place] ([facility] PEN 00 administer Me dical NEEDLES) 32 insulin Branc h gauge x three 5/32" Ndle times a day. For ICD 10 code of: E11.40 Insulin 2016-0 Yes Use as [facility], 1- directed ity of Disposable, 00:00: to [place] ([facility] PEN 00 administer Me dical NEEDLES) 32 insulin Branc h gauge x three 5/32" Ndle times a day. For ICD 10 code of: E11.40 Insulin 2016-0 Yes Use as [facility], 1- directed ity of Disposable, 00:00: to [place] ([facility] PEN 00 administer Me dical NEEDLES) 32 insulin Branc h gauge x three 5/32" Ndle times a day. For ICD 10 code of: E11.40 Insulin 2016-0 Yes Use as [facility], 1- directed ity of Disposable, 00:00: to [place] ([facility] PEN 00 administer Me dical NEEDLES) 32 insulin Branc h gauge x three 5/32" Ndle times a day. For ICD 10 code of: E11.40 Insulin 2016-0 Yes Use as [facility], 1- directed ity of Disposable, 00:00: to [place] ([facility] PEN 00 administer Me dical NEEDLES) 32 insulin Branc h gauge x three 5/32" Ndle times a day. For ICD 10 code of: E11.40 Insulin 2016-0 Yes Use as [facility], 1 directed ity of Disposable, 00:00: to [place] ([facility] PEN 00 administer Me dical NEEDLES) 32 insulin Branc h gauge x three 5/32" Ndle times a day. For ICD 10 code of: E11.40 Insulin 2016-0 Yes Use as [facility], 1 directed ity of Disposable, 00:00: to [place] ([facility] PEN 00 administer Me dical NEEDLES) 32 insulin Branc h gauge x three 5/32" Ndle times a day. For ICD 10 code of: E11.40 Insulin 2016-0 Yes Use as [facility], 1 directed ity of Disposable, 00:00: to [place] ([facility] PEN 00 administer Me dical NEEDLES) 32 insulin Branc h gauge x three 5/32" Ndle times a day. For ICD 10 code of: E11.40 Insulin 2016-0 Yes Use as [facility], 1- directed ity of Disposable, 00:00: to [place] ([facility] PEN 00 administer Me dical NEEDLES) 32 insulin Branc h gauge x three 5/32" Ndle times a day. For ICD 10 code of: E11.40 Insulin 2016-0 Yes Use as [facility], 1- directed ity of Disposable, 00:00: to [place] ([facility] PEN 00 administer Me dical NEEDLES) 32 insulin Branc h gauge x three 5/32" Ndle times a day. For ICD 10 code of: E11.40 Insulin 2016-0 Yes Use as [facility], 1-13 directed ity of Disposable, 00:00: to [place] ([facility] PEN 00 administer Me dical NEEDLES) 32 insulin Branc h gauge x three 5/32" Ndle times a day. For ICD 10 code of: E11.40 Insulin 2016-0 Yes Use as [facility], 1-13 directed ity of Disposable, 00:00: to [place] ([facility] PEN 00 administer Me dical NEEDLES) 32 insulin Branc h gauge x three 5/32" Ndle times a day. For ICD 10 code of: E11.40 Insulin 2016-0 Yes Use as [facility], 1-13 directed ity of Disposable, 00:00: to [place] ([facility] PEN 00 administer Me dical NEEDLES) 32 insulin Branc h gauge x three 5/32" Ndle times a day. For ICD 10 code of: E11.40 Insulin 2016-0 Yes Use as [facility], 1-13 directed ity of Disposable, 00:00: to [place] ([facility] PEN 00 administer Me dical NEEDLES) 32 insulin Branc h gauge x three 5/32" Ndle times a day. For ICD 10 code of: E11.40 Insulin 2016-0 Yes Use as [facility], 1- directed ity of Disposable, 00:00: to [place] ([facility] PEN 00 administer Me dical NEEDLES) 32 insulin Branc h gauge x three 5/32" Ndle times a day. For ICD 10 code of: E11.40 Insulin 2016-0 Yes Use as [facility], 1- directed ity of Disposable, 00:00: to [place] ([facility] PEN 00 administer Me dical NEEDLES) 32 insulin Branc h gauge x three 5/32" Ndle times a day. For ICD 10 code of: E11.40 Insulin 2016-0 Yes Use as [facility], 1-13 directed ity of Disposable, 00:00: to [place] ([facility] PEN 00 administer Me dical NEEDLES) 32 insulin Branc h gauge x three 5/32" Ndle times a day. For ICD 10 code of: E11.40 Insulin 2016-0 Yes Use as [facility], 1-13 directed ity of Disposable, 00:00: to [place] ([facility] PEN 00 administer Me dical NEEDLES) 32 insulin Branc h gauge x three 5/32" Ndle times a day. For ICD 10 code of: E11.40 Insulin 2016-0 Yes Use as [facility], 1-13 directed ity of Disposable, 00:00: to [place] ([facility] PEN 00 administer Me dical NEEDLES) 32 insulin Branc h gauge x three 5/32" Ndle times a day. For ICD 10 code of: E11.40 Insulin 2016-0 Yes Use as [facility], 1-13 directed ity of Disposable, 00:00: to [place] ([facility] PEN 00 administer Me dical NEEDLES) 32 insulin Branc h gauge x three 5/32" Ndle times a day. For ICD 10 code of: E11.40 Insulin 2016-0 Yes Use as [facility], 1-13 directed ity of Disposable, 00:00: to [place] ([facility] PEN 00 administer Me dical NEEDLES) 32 insulin Branc h gauge x three 5/32" Ndle times a day. For ICD 10 code of: E11.40 Insulin 2016-0 Yes Use as [facility], 1-13 directed ity of Disposable, 00:00: to [place] ([facility] PEN 00 administer Me dical NEEDLES) 32 insulin Branc h gauge x three 5/32" Ndle times a day. For ICD 10 code of: E11.40 Insulin 2016-0 Yes Use as [facility], 1-13 directed ity of Disposable, 00:00: to [place] ([facility] PEN 00 administer Me dical NEEDLES) 32 insulin Branc h gauge x three 5/32" Ndle times a day. For ICD 10 code of: E11.40 Insulin 2016-0 Yes Use as [facility], 1-13 directed ity of Disposable, 00:00: to [place] ([facility] PEN 00 administer Me dical NEEDLES) 32 insulin Branc h gauge x three 5/32" Ndle times a day. For ICD 10 code of: E11.40 Insulin 2016-0 Yes Use as [facility], 1-13 directed ity of Disposable, 00:00: to [place] ([facility] PEN 00 administer Me dical NEEDLES) 32 insulin Branc h gauge x three 5/32" Ndle times a day. For ICD 10 code of: E11.40 Insulin 2016-0 Yes Use as [facility], 1-13 directed ity of Disposable, 00:00: to [place] ([facility] PEN 00 administer Me dical NEEDLES) 32 insulin Branc h gauge x three 5/32" Ndle times a day. For ICD 10 code of: E11.40 Insulin 2016-0 Yes Use as [facility], 1-13 directed ity of Disposable, 00:00: to [place] (REL[facility] PEN 00 administer Me dical NEEDLES) 32 insulin Branc h gauge x three 5/32" Ndle times a day. For ICD 10 code of: E11.40 Insulin 2016-0 Yes Use as [facility], 1-13 directed ity of Disposable, 00:00: to [place] ([facility] PEN 00 administer Me dical NEEDLES) 32 insulin Branc h gauge x three 5/32" Ndle times a day. For ICD 10 code of: E11.40 Insulin 2016-0 Yes Use as [facility], 1-13 directed ity of Disposable, 00:00: to [place] ([facility] PEN 00 administer Me dical NEEDLES) 32 insulin Branc h gauge x three 5/32" Ndle times a day. For ICD 10 code of: E11.40 Insulin 2016-0 Yes Use as [facility], 1-13 directed ity of Disposable, 00:00: to [place] (REL[facility] PEN 00 administer Me dical NEEDLES) 32 insulin Branc h gauge x three 5/32" Ndle times a day. For ICD 10 code of: E11.40 Insulin 2016-0 Yes Use as [facility], 1-13 directed ity of Disposable, 00:00: to [place] (REL[facility] PEN 00 administer Me dical NEEDLES) 32 insulin Branc h gauge x three 5/32" Ndle times a day. For ICD 10 code of: E11.40 Insulin 2016-0 Yes Use as [facility], 1-13 directed ity of Disposable, 00:00: to [place] ([facility] PEN 00 administer Me dical NEEDLES) 32 insulin Branc h gauge x three 5/32" Ndle times a day. For ICD 10 code of: E11.40 Insulin 2016-0 Yes Use as [facility], 1-13 directed ity of Disposable, 00:00: to [place] (REL[facility] PEN 00 administer Me dical NEEDLES) 32 insulin Branc h gauge x three 5/32" Ndle times a day. For ICD 10 code of: E11.40 Insulin 2016-0 Yes Use as [facility], 1-13 directed ity of Disposable, 00:00: to [place] (REL[facility] PEN 00 administer Me dical NEEDLES) 32 insulin Branc h gauge x three 5/32" Ndle times a day. For ICD 10 code of: E11.40 Insulin 2016-0 Yes Use as [facility], 1-13 directed ity of Disposable, 00:00: to [place] (REL[facility] PEN 00 administer Me dical NEEDLES) 32 insulin Branc h gauge x three 5/32" Ndle times a day. For ICD 10 code of: E11.40 Insulin 2016-0 Yes Use as [facility], 1-13 directed ity of Disposable, 00:00: to [place] (REL[facility] PEN 00 administer Me dical NEEDLES) 32 insulin Branc h gauge x three 5/32" Ndle times a day. For ICD 10 code of: E11.40 Insulin 2016-0 Yes Use as [facility], 1-13 directed ity of Disposable, 00:00: to [place] (REL[facility] PEN 00 administer Me dical NEEDLES) 32 insulin Branc h gauge x three 5/32" Ndle times a day. For ICD 10 code of: E11.40 Insulin 2016-0 Yes Use as [facility], 1-13 directed ity of Disposable, 00:00: to [place] (REL[facility] PEN 00 administer Me dical NEEDLES) 32 insulin Branc h gauge x three 5/32" Ndle times a day. For ICD 10 code of: E11.40 Insulin 2016-0 Yes Use as [facility], 1-13 directed ity of Disposable, 00:00: to [place] (REL[facility] PEN 00 administer Me dical NEEDLES) 32 insulin Branc h gauge x three 5/32" Ndle times a day. For ICD 10 code of: E11.40 Insulin 2016-0 Yes Use as [facility], 1-13 directed ity of Disposable, 00:00: to [place] (RELION PEN 00 administer Me dical NEEDLES) 32 insulin Branc h gauge x three 5/32" Ndle times a day. For ICD 10 code of: E11.40 Insulin 2016-0 Yes Use as [facility], 1-13 directed ity of Disposable, 00:00: to [place] (RELION PEN 00 administer Me dical NEEDLES) 32 insulin Branc h gauge x three 5/32" Ndle times a day. For ICD 10 code of: E11.40 Insulin 2016-0 Yes Use as [facility], 1-13 directed ity of Disposable, 00:00: to [place] (RELION PEN 00 administer Me dical NEEDLES) 32 insulin Branc h gauge x three 5/32" Ndle times a day. For ICD 10 code of: E11.40 Insulin 2016-0 Yes Use as [facility], 1-13 directed ity of Disposable, 00:00: to [place] (RELION PEN 00 administer Me dical NEEDLES) 32 insulin Branc h gauge x three 5/32" Ndle times a day. For ICD 10 code of: E11.40 Insulin 2016-0 Yes Use as [facility], 1-13 directed ity of Disposable, 00:00: to [place] (RELION PEN 00 administer Me dical NEEDLES) 32 insulin Branc h gauge x three 5/32" Ndle times a day. For ICD 10 code of: E11.40 Insulin 2016-0 Yes Use as [facility], 1-13 directed ity of Disposable, 00:00: to [place] (RELION PEN 00 administer Me dical NEEDLES) 32 insulin Branc h gauge x three 5/32" Ndle times a day. For ICD 10 code of: E11.40 Insulin 2016-0 Yes Use as [facility], 1-13 directed ity of Disposable, 00:00: to [place] (RELION PEN 00 administer Me dical NEEDLES) 32 insulin Branc h gauge x three 5/32" Ndle times a day. For ICD 10 code of: E11.40 Immunizations Ordered Filled Immunization Date Status Comments [facility] Immunization Name Name Influenza Virus 2022-08-23 [...] BOOSTER) Remdesivir 2022-07-11 Completed [facility] 00:00:00 [facility] Remdesivir 2022-07-11 Completed [facility] 00:00:00 [place] [facility] Remdesivir 2022-07-11 Completed [facility] 00:00:00 [facility] Remdesivir 2022-07-11 Completed [facility] [...] Branch Remdesivir 2022-07-11 Completed [facility] 00:00:00 [facility] Remdesivir 2022-07-11 Completed [facility] 00:00:00 [place] [facility] Remdesivir 2022-07-11 Completed [facility] 00:00:00 [place] [facility] Remdesivir 2022-07-11 Completed [facility] 00:00:00 [place] [facility] Remdesivir 2022-07-11 Completed [facility] 00:00:00 [facility] Remdesivir 2022-07-11 Completed [facility] 00:00:00 [facility] Remdesivir 2022-07-11 Completed [facility] 00:00:00 [facility] Remdesivir 2022-07-11 Completed [facility] 00:00:00 [facility] Remdesivir 2022-07-11 Completed [facility] 00:00:00 [facility] Remdesivir 2022-07-11 Completed [facility] 00:00:00 [facility] Remdesivir 2022-07-11 Completed [facility] 00:00:00 [facility] [place] [facility] Remdesivir 2022-07-11 Completed [facility] 00:00:00 [facility] Remdesivir 2022-07-11 Completed [facility] 00:00:00 [facility] Remdesivir 2022-07-11 Completed [facility] 00:00:00 [facility] Remdesivir 2022-07-11 Completed [facility] 00:00:00 [facility] Remdesivir 2022-07-11 Completed [facility] 00:00:00 [facility] Remdesivir 2022-07-11 Completed [facility] 00:00:00 [facility] Remdesivir 2022-07-11 Completed [facility] 00:00:00 [facility] Remdesivir 2022-07-11 Completed [facility] 00:00:00 [facility] Remdesivir 2022-07-11 Completed [facility] 00:00:00 [facility] [place] [facility] Remdesivir 2022-07-11 Completed [facility] 00:00:00 [facility] [place] [facility] Remdesivir 2022-07-11 Completed [facility] 00:00:00 [facility] [place] [facility] Remdesivir 2022-07-11 Completed [facility] 00:00:00 [facility] [place] [facility] Remdesivir 2022-07-11 Completed [facility] 00:00:00 [facility] [place] [facility] Remdesivir 2022-07-11 Completed [facility] 00:00:00 [facility] Remdesivir 2022-07-11 Completed [facility] 00:00:00 [facility] [place] [facility] Remdesivir 2022-07-11 Completed [facility] 00:00:00 [place] [facility] Remdesivir 2022-07-11 Completed [facility] 00:00:00 [place] [facility] Remdesivir 2022-07-11 Completed [facility] 00:00:00 [place] [facility] Remdesivir 2022-07-11 Completed [facility] 00:00:00 [facility] [place] [facility] Remdesivir 2022-07-11 Completed [facility] 00:00:00 [facility] Remdesivir 2022-07-11 Completed [facility] 00:00:00 [facility] [place] [facility] Remdesivir 2022-07-11 Completed [facility] 00:00:00 [facility] Remdesivir 2022-07-11 Completed [facility] 00:00:00 [facility] [place] [facility] Remdesivir 2022-07-11 Completed [facility] 00:00:00 [facility] Remdesivir 2022-07-11 Completed [facility] 00:00:00 [facility] Remdesivir 2022-07-11 Completed [facility] 00:00:00 [facility] [place] [facility] Remdesivir 2022-07-11 Completed [facility] 00:00:00 [facility] [place] [facility] Remdesivir 2022-07-11 Completed [facility] 00:00:00 [facility] Remdesivir 2022-07-11 Completed [facility] 00:00:00 [facility] Remdesivir 2022-07-11 Completed [facility] 00:00:00 [facility] Remdesivir 2022-07-11 Completed [facility] 00:00:00 [facility] Remdesivir 2022-07-11 Completed [facility] 00:00:00 [facility] Remdesivir 2022-07-11 Completed [facility] 00:00:00 [facility] Remdesivir 2022-07-11 Completed [facility] 00:00:00 [facility] Remdesivir 2022-07-11 Completed [facility] 00:00:00 [facility] Remdesivir 2022-07-11 Completed [facility] 00:00:00 [facility] Remdesivir 2022-07-11 Completed [facility] 00:00:00 [facility] Remdesivir 2022-07-11 Completed [facility] 00:00:00 [facility] Remdesivir 2022-07-11 Completed [facility] 00:00:00 [facility] Remdesivir 2022-07-11 Completed [facility] 00:00:00 [facility] Remdesivir 2022-07-11 Completed [facility] 00:00:00 [place] [facility] Remdesivir 2022-07-11 Completed [facility] 00:00:00 [place] [facility] Remdesivir 2022-07-11 Completed [facility] 00:00:00 [place] [facility] Remdesivir 2022-07-11 Completed [facility] 00:00:00 [facility] Remdesivir 2022-07-11 Completed [facility] 00:00:00 [facility] Remdesivir 2022-07-11 Completed [facility] 00:00:00 [facility] Remdesivir 2022-07-11 Completed [facility] 00:00:00 [facility] Remdesivir 2022-07-11 Completed [facility] 00:00:00 [facility] [place] [facility] Remdesivir 2022-07-11 Completed [facility] 00:00:00 [facility] [place] [facility] Remdesivir 2022-07-11 Completed [facility] 00:00:00 [place] [facility] Remdesivir 2022-07-11 Completed [facility] 00:00:00 [place] [facility] Remdesivir 2022-07-11 Completed [facility] 00:00:00 [place] [facility] Remdesivir 2022-07-11 Completed [facility] 00:00:00 [facility] [place] [facility] Remdesivir 2022-07-11 Completed [facility] 00:00:00 [facility] [place] [facility] Remdesivir 2022-07-11 Completed [facility] 00:00:00 [facility] Remdesivir 2022-07-11 Completed [facility] 00:00:00 [facility] [place] [facility] Remdesivir 2022-07-11 Completed [facility] 00:00:00 [facility] Remdesivir 2022-07-11 Completed [facility] 00:00:00 [facility] [place] [facility] Remdesivir 2022-07-11 Completed [facility] 00:00:00 [facility] Remdesivir 2022-07-11 Completed [facility] 00:00:00 [facility] Remdesivir 2022-07-11 Completed [facility] 00:00:00 [facility] Remdesivir 2022-07-11 Completed [facility] 00:00:00 [facility] Remdesivir 2022-07-11 Completed [facility] 00:00:00 [facility] Remdesivir 2022-07-11 Completed [facility] 00:00:00 [facility] Remdesivir 2022-07-11 Completed [facility] 00:00:00 [facility] Remdesivir 2022-07-11 Completed [facility] 00:00:00 [place] [facility] Remdesivir 2022-07-11 Completed [facility] 00:00:00 [place] [facility] Remdesivir 2022-07-11 Completed [facility] 00:00:00 [place] [facility] Remdesivir 2022-07-11 Completed [facility] 00:00:00 [facility] Remdesivir 2022-07-11 Completed [facility] 00:00:00 [facility] Remdesivir 2022-07-11 Completed [facility] 00:00:00 [facility] Remdesivir 2022-07-11 Completed [facility] 00:00:00 [facility] Remdesivir 2022-07-11 Completed [facility] 00:00:00 [facility] Remdesivir 2022-07-11 Completed [facility] 00:00:00 [facility] Remdesivir 2022-07-11 Completed [facility] 00:00:00 [facility] [place] [facility] Remdesivir 2022-07-11 Completed [facility] 00:00:00 [facility] Remdesivir 2022-07-11 Completed [facility] 00:00:00 [facility] Remdesivir 2022-07-11 Completed [facility] 00:00:00 [facility] Remdesivir 2022-07-11 Completed [facility] 00:00:00 [facility] Remdesivir 2022-07-11 Completed [facility] 00:00:00 [facility] Remdesivir 2022-07-11 Completed [facility] 00:00:00 [facility] [place] [facility] Remdesivir 2022-07-11 Completed [facility] 00:00:00 [facility] [place] [facility] Remdesivir 2022-07-11 Completed [facility] 00:00:00 [place] [facility] Remdesivir 2022-07-11 Completed [facility] 00:00:00 [facility] [place] [facility] Remdesivir 2022-07-11 Completed [facility] 00:00:00 [facility] [place] [facility] Remdesivir 2022-07-11 Completed [facility] 00:00:00 [place] [facility] Remdesivir 2022-07-11 Completed [facility] 00:00:00 [facility] [place] [facility] Remdesivir 2022-07-11 Completed [facility] 00:00:00 [facility] Remdesivir 2022-07-11 Completed [facility] 00:00:00 [facility] [place] [facility] Remdesivir 2022-07-11 Completed [facility] 00:00:00 [facility] Remdesivir 2022-07-11 Completed [facility] 00[facility]00:00 [place] [facility] Remdesivir 2022-07-11 Completed [facility] 00:00:00 [place] [facility] Remdesivir 2022-07-11 Completed [facility] 00:00:00 [place] [facility] Remdesivir 2022-07-11 Completed [facility] 00:00:00 [facility] Remdesivir 2022-07-11 Completed [facility] 00:00:00 [facility] Remdesivir 2022-07-11 Completed [facility] 00:00:00 [facility] Remdesivir 2022-07-11 Completed [facility] 00:00:00 [facility] Remdesivir 2022-07-11 Completed [facility] 00:00:00 [facility] Remdesivir 2022-07-11 Completed [facility] 00:00:00 [facility] Remdesivir 2022-07-11 Completed [facility] 00:00:00 [facility] Remdesivir 2022-07-11 Completed [facility] 00:00:00 [facility] Remdesivir 2022-07-11 Completed [facility] 00:00:00 [facility] Remdesivir 2022-07-11 Completed [facility] 00:00:00 [facility] Remdesivir 2022-07-11 Completed [facility] 00:00:00 [facility] Remdesivir 2022-07-11 Completed [facility] 00:00:00 [facility] Remdesivir 2022-07-11 Completed [facility] 00:00:00 [facility] Remdesivir 2022-07-11 Completed [facility] 00:00:00 [facility] Remdesivir 2022-07-11 Completed [facility] 00:00:00 [facility] Remdesivir 2022-07-11 Completed [facility] 00:00:00 [facility] Remdesivir 2022-07-11 Completed [facility] 00:00:00 [facility] Remdesivir 2022-07-11 Completed [facility] 00:00:00 [facility] Remdesivir 2022-07-11 Completed [facility] 00:00:00 [facility] Remdesivir 2022-07-11 Completed [facility] 00:00:00 [facility] Remdesivir 2022-07-11 Completed [facility] 00:00:00 [facility] Remdesivir 2022-07-11 Completed [facility] 00:00:00 [facility] Remdesivir 2022-07-11 Completed [facility] 00:00:00 [place] [facility] Remdesivir 2022-07-11 Completed [facility] 00:00:00 [facility] Remdesivir 2022-07-11 Completed [facility] 00:00:00 [place] [facility] Remdesivir 2022-07-11 Completed [facility] 00:00:00 [facility] Remdesivir 2022-07-11 Completed [facility] 00:00:00 [facility] Remdesivir 2022-07-11 Completed [facility] 00:00:00 [facility] Remdesivir 2022-07-10 Completed [facility] 00:00:00 [facility] Remdesivir 2022-07-10 Completed [facility] 00:00:00 [facility] Remdesivir 2022-07-10 Completed [facility] 00:00:00 [facility] Remdesivir 2022-07-10 Completed [facility] 00:00:00 [facility] Remdesivir 2022-07-10 Completed [facility] 00:00:00 [facility] Remdesivir 2022-07-10 Completed [facility] 00:00:00 [facility] Remdesivir 2022-07-10 Completed [facility] 00:00:00 [facility] Remdesivir 2022-07-10 Completed [facility] 00:00:00 [place] [facility] Remdesivir 2022-07-10 Completed [facility] 00:00:00 [facility] Remdesivir 2022-07-10 Completed [facility] 00:00:00 [facility] Remdesivir 2022-07-10 Completed [facility] 00:00:00 [facility] Remdesivir 2022-07-10 Completed [facility] 00:00:00 [facility] Remdesivir 2022-07-10 Completed [facility] 00:00:00 [facility] Remdesivir 2022-07-10 Completed [facility] 00:00:00 [facility] Remdesivir 2022-07-10 Completed [facility] 00:00:00 [place] [facility] Remdesivir 2022-07-10 Completed [facility] 00:00:00 [facility] Remdesivir 2022-07-10 Completed [facility] 00:00:00 [facility] Remdesivir 2022-07-10 Completed [facility] 00:00:00 [facility] Remdesivir 2022-07-10 Completed [facility] 00:00:00 [facility] Remdesivir 2022-07-10 Completed [facility] 00:00:00 [place] [facility] Remdesivir 2022-07-10 Completed [facility] 00:00:00 [place] [facility] Remdesivir 2022-07-10 Completed [facility] 00:00:00 [place] [facility] Remdesivir 2022-07-10 Completed [facility] 00:00:00 [facility] Remdesivir 2022-07-10 Completed [facility] 00:00:00 [facility] Remdesivir 2022-07-10 Completed [facility] 00:00:00 [facility] Remdesivir 2022-07-10 Completed [facility] 00:00:00 [facility] Remdesivir 2022-07-10 Completed [facility] 00:00:00 [facility] Remdesivir 2022-07-10 Completed [facility] 00:00:00 [facility] Remdesivir 2022-07-10 Completed [facility] 00:00:00 [facility] Remdesivir 2022-07-10 Completed [facility] 00:00:00 [facility] Remdesivir 2022-07-10 Completed [facility] 00:00:00 [facility] Remdesivir 2022-07-10 Completed [facility] 00:00:00 [facility] Remdesivir 2022-07-10 Completed [facility] 00:00:00 [place] [facility] Remdesivir 2022-07-10 Completed [facility] 00:00:00 [facility] Remdesivir 2022-07-10 Completed [facility] 00:00:00 [facility] Remdesivir 2022-07-10 Completed [facility] 00:00:00 [facility] Remdesivir 2022-07-10 Completed [facility] 00:00:00 [facility] Remdesivir 2022-07-10 Completed [facility] 00:00:00 [facility] Remdesivir 2022-07-10 Completed [facility] 00:00:00 [facility] Remdesivir 2022-07-10 Completed [facility] 00:00:00 [place] [facility] Remdesivir 2022-07-10 Completed [facility] 00:00:00 [facility] Remdesivir 2022-07-10 Completed [facility] 00:00:00 [facility] Remdesivir 2022-07-10 Completed [facility] 00:00:00 [facility] Remdesivir 2022-07-10 Completed [facility] 00:00:00 [facility] Remdesivir 2022-07-10 Completed [facility] 00:00:00 [place] [facility] Remdesivir 2022-07-10 Completed [facility] 00:00:00 [place] [facility] Remdesivir 2022-07-10 Completed [facility] 00:00:00 [place] [facility] Remdesivir 2022-07-10 Completed [facility] 00:00:00 [facility] Remdesivir 2022-07-10 Completed [facility] 00:00:00 [facility] Remdesivir 2022-07-10 Completed [facility] 00:00:00 [facility] Remdesivir 2022-07-10 Completed [facility] 00:00:00 [facility] Remdesivir 2022-07-10 Completed [facility] 00:00:00 [facility] Remdesivir 2022-07-10 Completed [facility] 00:00:00 [facility] Remdesivir 2022-07-10 Completed [facility] 00:00:00 [facility] Remdesivir 2022-07-10 Completed [facility] 00:00:00 [facility] Remdesivir 2022-07-10 Completed [facility] 00:00:00 [facility] Remdesivir 2022-07-10 Completed [facility] 00:00:00 [facility] Remdesivir 2022-07-10 Completed [facility] 00:00:00 [place] [facility] Remdesivir 2022-07-10 Completed [facility] 00:00:00 [facility] Remdesivir 2022-07-10 Completed [facility] 00:00:00 [facility] Remdesivir 2022-07-10 Completed [facility] 00:00:00 [facility] Remdesivir 2022-07-10 Completed [facility] 00:00:00 [facility] Remdesivir 2022-07-10 Completed [facility] 00:00:00 [facility] Remdesivir 2022-07-10 Completed [facility] 00:00:00 [facility] Remdesivir 2022-07-10 Completed [facility] 00:00:00 [place] [facility] Remdesivir 2022-07-10 Completed [facility] 00:00:00 [facility] Remdesivir 2022-07-10 Completed [facility] 00:00:00 [facility] Remdesivir 2022-07-10 Completed [facility] 00:00:00 [facility] Remdesivir 2022-07-10 Completed [facility] 00:00:00 [facility] Remdesivir 2022-07-10 Completed [facility] 00:00:00 [facility] Remdesivir 2022-07-10 Completed [facility] 00:00:00 [facility] Remdesivir 2022-07-10 Completed [facility] 00:00:00 [facility] Remdesivir 2022-07-10 Completed [facility] 00:00:00 [facility] Remdesivir 2022-07-10 Completed [facility] 00:00:00 [facility] Remdesivir 2022-07-10 Completed [facility] 00:00:00 [facility] Remdesivir 2022-07-10 Completed [facility] 00:00:00 [facility] Remdesivir 2022-07-10 Completed [facility] 00:00:00 [facility] Remdesivir 2022-07-10 Completed [facility] 00:00:00 [facility] Remdesivir 2022-07-10 Completed [facility] 00:00:00 [facility] Remdesivir 2022-07-10 Completed [facility] 00:00:00 [facility] Remdesivir 2022-07-10 Completed [facility] 00:00:00 [facility] Remdesivir 2022-07-10 Completed [facility] 00:00:00 [facility] Remdesivir 2022-07-10 Completed [facility] 00:00:00 [place] [facility] Remdesivir 2022-07-10 Completed [facility] 00:00:00 [facility] Remdesivir 2022-07-10 Completed [facility] 00:00:00 [facility] Remdesivir 2022-07-10 Completed [facility] 00:00:00 [facility] Remdesivir 2022-07-10 Completed [facility] 00:00:00 [facility] Remdesivir 2022-07-10 Completed [facility] 00:00:00 [facility] Remdesivir 2022-07-10 Completed [facility] 00:00:00 [facility] Remdesivir 2022-07-10 Completed [facility] 00:00:00 [place] [facility] Remdesivir 2022-07-10 Completed [facility] 00:00:00 [facility] Remdesivir 2022-07-10 Completed [facility] 00:00:00 [facility] Remdesivir 2022-07-10 Completed [facility] 00:00:00 [facility] Remdesivir 2022-07-10 Completed [facility] 00:00:00 [facility] Remdesivir 2022-07-10 Completed [facility] 00:00:00 [facility] Remdesivir 2022-07-10 Completed [facility] 00:00:00 [facility] Remdesivir 2022-07-10 Completed [facility] 00:00:00 [facility] Remdesivir 2022-07-10 Completed [facility] 00:00:00 [facility] Remdesivir 2022-07-10 Completed [facility] 00:00:00 [facility] Remdesivir 2022-07-10 Completed [facility] 00:00:00 [facility] Remdesivir 2022-07-10 Completed [facility] 00:00:00 [facility] Remdesivir 2022-07-10 Completed [facility] 00:00:00 [facility] Remdesivir 2022-07-10 Completed [facility] 00:00:00 [facility] Remdesivir 2022-07-10 Completed [facility] 00:00:00 [facility] Remdesivir 2022-07-10 Completed [facility] 00:00:00 [facility] Remdesivir 2022-07-10 Completed [facility] 00:00:00 [facility] Remdesivir 2022-07-10 Completed [facility] 00:00:00 [facility] Remdesivir 2022-07-10 Completed [facility] 00:00:00 [facility] Remdesivir 2022-07-10 Completed [facility] 00:00:00 [facility] Remdesivir 2022-07-10 Completed [facility] 00:00:00 [facility] Remdesivir 2022-07-10 Completed [facility] 00:00:00 [facility] Remdesivir 2022-07-10 Completed [facility] 00:00:00 [facility] Remdesivir 2022-07-10 Completed [facility] 00:00:00 [facility] Remdesivir 2022-07-10 Completed [facility] 00:00:00 [facility] Remdesivir 2022-07-10 Completed [facility] 00:00:00 [facility] Remdesivir 2022-07-10 Completed [facility] 00:00:00 [facility] Remdesivir 2022-07-10 Completed [facility] 00:00:00 [facility] Remdesivir 2022-07-10 Completed [facility] 00:00:00 [facility] Remdesivir 2022-07-10 Completed [facility] 00:00:00 [facility] Remdesivir 2022-07-10 Completed [facility] 00:00:00 [facility] Remdesivir 2022-07-10 Completed [facility] 00:00:00 [facility] Remdesivir 2022-07-10 Completed [facility] 00:00:00 [facility] Remdesivir 2022-07-10 Completed [facility] 00:00:00 [facility] Remdesivir 2022-07-10 Completed [facility] 00:00:00 [facility] Remdesivir 2022-07-10 Completed [facility] 00:00:00 [facility] Remdesivir 2022-07-10 Completed [facility] 00:00:00 [facility] Remdesivir 2022-07-10 Completed [facility] 00:00:00 [facility] Remdesivir 2022-07-10 Completed [facility] 00:00:00 [facility] Remdesivir 2022-07-10 Completed [facility] 00:00:00 [facility] Remdesivir 2022-07-10 Completed [facility] 00:00:00 [facility] Remdesivir 2022-07-10 Completed [facility] 00:00:00 [facility] Remdesivir 2022-07-10 Completed [facility] 00:00:00 [facility] Remdesivir 2022-07-10 Completed [facility] 00:00:00 [facility] Remdesivir 2022-07-10 Completed [facility] 00:00:00 [facility] Remdesivir 2022-07-10 Completed [facility] 00:00:00 [facility] Remdesivir 2022-07-10 Completed [facility] 00:00:00 [facility] Remdesivir 2022-07-10 Completed [facility] 00:00:00 [facility] Remdesivir 2022-07-10 Completed [facility] 00:00:00 [facility] Remdesivir 2022-07-10 Completed [facility] 00:00:00 [facility] Remdesivir 2022-07-10 Completed [facility] 00:00:00 [facility] Remdesivir 2022-07-10 Completed [facility] 00:00:00 [facility] Remdesivir 2022-07-10 Completed [facility] 00:00:00 [facility] Remdesivir 2022-07-10 Completed [facility] 00:00:00 [facility] Remdesivir 2022-07-09 Completed [facility] 00:00:00 [facility] Remdesivir 2022-07-09 Completed [facility] 00:00:00 [facility] Remdesivir 2022-07-09 Completed [facility] 00:00:00 [facility] Remdesivir 2022-07-09 Completed [facility] 00:00:00 [facility] Remdesivir 2022-07-09 Completed [facility] 00:00:00 [facility] Remdesivir 2022-07-09 Completed [facility] 00:00:00 [facility] Remdesivir 2022-07-09 Completed [facility] 00:00:00 [facility] Remdesivir 2022-07-09 Completed [facility] 00:00:00 [facility] Remdesivir 2022-07-09 Completed [facility] 00:00:00 [facility] Remdesivir 2022-07-09 Completed [facility] 00:00:00 [facility] Remdesivir 2022-07-09 Completed [facility] 00[facility]00:00 [facility] Remdesivir 2022-07-09 Completed [facility] 00:00:00 [facility] Remdesivir 2022-07-09 Completed [facility] 00[facility]00:00 [facility] Remdesivir 2022-07-09 Completed [facility] 00:00:00 [facility] Remdesivir 2022-07-09 Completed [facility] 00:00:00 [facility] Remdesivir 2022-07-09 Completed [facility] 00:00:00 [facility] Remdesivir 2022-07-09 Completed [facility] 00:00:00 [facility] Remdesivir 2022-07-09 Completed [facility] 00:00:00 [facility] Remdesivir 2022-07-09 Completed [facility] 00:00:00 [facility] Remdesivir 2022-07-09 Completed [facility] 00:00:00 [facility] Remdesivir 2022-07-09 Completed [facility] 00[facility]00:00 [facility] Remdesivir 2022-07-09 Completed [facility] 00:00:00 [facility] Remdesivir 2022-07-09 Completed [facility] 00:00:00 [facility] Remdesivir 2022-07-09 Completed [facility] 00:00:00 [facility] Remdesivir 2022-07-09 Completed [facility] 00:00:00 [facility] Remdesivir 2022-07-09 Completed [facility] 00:00:00 [facility] Remdesivir 2022-07-09 Completed [facility] 00:00:00 [facility] Remdesivir 2022-07-09 Completed [facility] 00:00:00 [facility] Remdesivir 2022-07-09 Completed [facility] 00:00:00 [facility] Remdesivir 2022-07-09 Completed [facility] 00:00:00 [facility] Remdesivir 2022-07-09 Completed [facility] 00:00:00 [facility] Remdesivir 2022-07-09 Completed [facility] 00:00:00 [facility] Remdesivir 2022-07-09 Completed [facility] 00:00:00 [facility] Remdesivir 2022-07-09 Completed [facility] 00:00:00 [facility] Remdesivir 2022-07-09 Completed [facility] 00:00:00 [facility] Remdesivir 2022-07-09 Completed [facility] 00:00:00 [facility] Remdesivir 2022-07-09 Completed [facility] 00:00:00 [facility] Remdesivir 2022-07-09 Completed [facility] 00:00:00 [facility] Remdesivir 2022-07-09 Completed [facility] 00:00:00 [facility] Remdesivir 2022-07-09 Completed [facility] 00:00:00 [facility] Remdesivir 2022-07-09 Completed [facility] 00:00:00 [facility] Remdesivir 2022-07-09 Completed [facility] 00:00:00 [facility] Remdesivir 2022-07-09 Completed [facility] 00:00:00 [facility] Remdesivir 2022-07-09 Completed [facility] 00:00:00 [facility] Remdesivir 2022-07-09 Completed [facility] 00:00:00 [facility] Remdesivir 2022-07-09 Completed [facility] 00:00:00 [facility] Remdesivir 2022-07-09 Completed [facility] 00:00:00 [facility] Remdesivir 2022-07-09 Completed [facility] 00:00:00 [facility] Remdesivir 2022-07-09 Completed [facility] 00:00:00 [facility] Remdesivir 2022-07-09 Completed [facility] 00:00:00 [facility] Remdesivir 2022-07-09 Completed [facility] 00:00:00 [facility] Remdesivir 2022-07-09 Completed [facility] 00:00:00 [facility] Remdesivir 2022-07-09 Completed [facility] 00:00:00 [facility] Remdesivir 2022-07-09 Completed [facility] 00:00:00 [facility] Remdesivir 2022-07-09 Completed [facility] 00:00:00 [facility] Remdesivir 2022-07-09 Completed [facility] 00:00:00 [facility] Remdesivir 2022-07-09 Completed [facility] 00:00:00 [facility] Remdesivir 2022-07-09 Completed [facility] 00:00:00 [facility] Remdesivir 2022-07-09 Completed [facility] 00:00:00 [facility] Remdesivir 2022-07-09 Completed [facility] 00:00:00 [facility] Remdesivir 2022-07-09 Completed [facility] 00:00:00 [facility] Remdesivir 2022-07-09 Completed [facility] 00:00:00 [facility] Remdesivir 2022-07-09 Completed [facility] 00:00:00 [facility] Remdesivir 2022-07-09 Completed [facility] 00:00:00 [facility] Remdesivir 2022-07-09 Completed [facility] 00:00:00 [facility] Remdesivir 2022-07-09 Completed [facility] 00:00:00 [facility] Remdesivir 2022-07-09 Completed [facility] 00:00:00 [facility] Remdesivir 2022-07-09 Completed [facility] 00:00:00 [facility] Remdesivir 2022-07-09 Completed [facility] 00:00:00 [facility] Remdesivir 2022-07-09 Completed [facility] 00:00:00 [facility] Remdesivir 2022-07-09 Completed [facility] 00:00:00 [facility] Remdesivir 2022-07-09 Completed [facility] 00:00:00 [facility] Remdesivir 2022-07-09 Completed [facility] 00:00:00 [facility] Remdesivir 2022-07-09 Completed [facility] 00:00:00 [facility] Remdesivir 2022-07-09 Completed [facility] 00:00:00 [facility] Remdesivir 2022-07-09 Completed [facility] 00:00:00 [facility] Remdesivir 2022-07-09 Completed [facility] 00:00:00 [facility] Remdesivir 2022-07-09 Completed [facility] 00:00:00 [facility] Remdesivir 2022-07-09 Completed [facility] 00:00:00 [facility] Remdesivir 2022-07-09 Completed [facility] 00:00:00 [facility] Remdesivir 2022-07-09 Completed [facility] 00:00:00 [facility] Remdesivir 2022-07-09 Completed [facility] 00:00:00 [facility] Remdesivir 2022-07-09 Completed [facility] 00:00:00 [facility] Remdesivir 2022-07-09 Completed [facility] 00:00:00 [facility] Remdesivir 2022-07-09 Completed [facility] 00:00:00 [facility] Remdesivir 2022-07-09 Completed [facility] 00:00:00 [facility] Remdesivir 2022-07-09 Completed [facility] 00:00:00 [facility] Remdesivir 2022-07-09 Completed [facility] 00:00:00 [facility] Remdesivir 2022-07-09 Completed [facility] 00:00:00 [facility] Remdesivir 2022-07-09 Completed [facility] 00:00:00 [facility] Remdesivir 2022-07-09 Completed [facility] 00:00:00 [facility] Remdesivir 2022-07-09 Completed [facility] 00:00:00 [facility] Remdesivir 2022-07-09 Completed [facility] 00:00:00 [facility] Remdesivir 2022-07-09 Completed [facility] 00:00:00 [facility] Remdesivir 2022-07-09 Completed [facility] 00:00:00 [facility] Remdesivir 2022-07-09 Completed [facility] 00:00:00 [facility] Remdesivir 2022-07-09 Completed [facility] 00:00:00 [facility] Remdesivir 2022-07-09 Completed [facility] 00:00:00 [facility] Remdesivir 2022-07-09 Completed [facility] 00:00:00 [facility] Remdesivir 2022-07-09 Completed [facility] 00:00:00 [facility] Remdesivir 2022-07-09 Completed [facility] 00:00:00 [facility] Remdesivir 2022-07-09 Completed [facility] 00:00:00 [facility] Remdesivir 2022-07-09 Completed [facility] 00:00:00 [facility] Remdesivir 2022-07-09 Completed [facility] 00:00:00 [facility] Remdesivir 2022-07-09 Completed [facility] 00:00:00 [facility] Remdesivir 2022-07-09 Completed [facility] 00:00:00 [facility] Remdesivir 2022-07-09 Completed [facility] 00:00:00 [facility] Remdesivir 2022-07-09 Completed [facility] 00:00:00 [facility] Remdesivir 2022-07-09 Completed [facility] 00:00:00 [facility] Remdesivir 2022-07-09 Completed [facility] 00:00:00 [facility] Remdesivir 2022-07-09 Completed [facility] 00:00:00 [facility] Remdesivir 2022-07-09 Completed [facility] 00:00:00 [facility] Remdesivir 2022-07-09 Completed [facility] 00:00:00 [facility] Remdesivir 2022-07-09 Completed [facility] 00:00:00 [facility] Remdesivir 2022-07-09 Completed [facility] 00:00:00 [facility] Remdesivir 2022-07-09 Completed [facility] 00:00:00 [facility] Remdesivir 2022-07-09 Completed [facility] 00:00:00 [facility] Remdesivir 2022-07-09 Completed [facility] 00:00:00 [facility] Remdesivir 2022-07-09 Completed [facility] 00:00:00 [facility] Remdesivir 2022-07-09 Completed [facility] 00:00:00 [facility] Remdesivir 2022-07-09 Completed [facility] 00:00:00 [facility] Remdesivir 2022-07-09 Completed [facility] 00:00:00 [facility] Remdesivir 2022-07-09 Completed [facility] 00:00:00 [facility] Remdesivir 2022-07-09 Completed [facility] 00:00:00 [facility] Remdesivir 2022-07-09 Completed [facility] 00:00:00 [facility] Remdesivir 2022-07-09 Completed [facility] 00:00:00 [facility] Remdesivir 2022-07-09 Completed [facility] 00:00:00 [facility] Remdesivir 2022-07-09 Completed [facility] 00:00:00 [facility] Remdesivir 2022-07-09 Completed [facility] 00:00:00 [facility] Remdesivir 2022-07-09 Completed [facility] 00:00:00 [facility] Remdesivir 2022-07-09 Completed [facility] 00:00:00 [facility] Remdesivir 2022-07-09 Completed [facility] 00:00:00 [facility] Remdesivir 2022-07-09 Completed [facility] 00:00:00 [facility] Remdesivir 2022-07-09 Completed [facility] 00:00:00 [facility] Remdesivir 2022-07-09 Completed [facility] 00:00:00 [facility] Remdesivir 2022-07-09 Completed [facility] 00:00:00 [facility] Remdesivir 2022-07-09 Completed [facility] 00:00:00 [facility] Remdesivir 2022-07-09 Completed [facility] 00:00:00 [facility] Remdesivir 2022-07-09 Completed [facility] 00:00:00 [facility] Remdesivir 2022-07-09 Completed [facility] 00:00:00 [facility] Remdesivir 2022-07-09 Completed [facility] 00:00:00 [facility] Remdesivir 2022-07-09 Completed [facility] 00:00:00 [facility] Remdesivir 2022-07-09 Completed [facility] 00:00:00 [facility] Influenza Virus 2021-08-17 Completed [facility] [...] Completed [facility] PFIZER VACCINE 00:00:00 [facility] SARS-COV-2 COVID-19 2021-07-27 Completed [facility] PFIZER VACCINE 00:00:00 [facility] SARS-COV-2 COVID-19 2021-07-27 Completed [facility] PFIZER VACCINE 00:00:00 [facility] SARS-COV-2 COVID-19 2021-07-27 Completed [facility] PFIZER VACCINE 00:00:00 [facility] SARS-COV-2 COVID-19 2021-07-27 Completed [facility] PFIZER VACCINE 00:00:00 [facility] SARS-COV-2 COVID-19 2021-07-27 Completed [facility] PFIZER VACCINE 00:00:00 [facility] SARS-COV-2 COVID-19 2021-07-27 Completed [facility] PFIZER VACCINE 00:00:00 [facility] SARS-COV-2 COVID-19 2021-07-27 Completed [facility] PFIZER VACCINE 00:00:00 [facility] SARS-COV-2 COVID-19 2021-07-27 Completed [facility] PFIZER VACCINE 00:00:00 [facility] SARS-COV-2 COVID-19 2021-07-27 Completed [facility] PFIZER VACCINE 00:00:00 [facility] SARS-COV-2 COVID-19 2021-07-27 Completed [facility] PFIZER VACCINE 00:00:00 [facility] SARS-COV-2 COVID-19 2021-07-27 Completed [facility] PFIZER VACCINE 00:00:00 [facility] SARS-COV-2 COVID-19 2021-07-27 Completed [facility] PFIZER VACCINE 00:00:00 [facility] SARS-COV-2 COVID-19 2021-07-27 Completed [facility] PFIZER VACCINE 00:00:00 [facility] SARS-COV-2 COVID-19 2021-07-27 Completed [facility] PFIZER VACCINE 00:00:00 [facility] SARS-COV-2 COVID-19 2021-07-27 Completed [facility] PFIZER VACCINE 00:00:00 [facility] SARS-COV-2 COVID-19 2021-07-27 Completed [facility] PFIZER VACCINE 00:00:00 [facility] SARS-COV-2 COVID-19 2021-07-27 Completed [facility] PFIZER VACCINE 00:00:00 [facility] SARS-COV-2 COVID-19 2021-07-27 Completed [facility] PFIZER VACCINE 00:00:00 [facility] SARS-COV-2 COVID-19 2021-07-27 Completed [facility] PFIZER VACCINE 00:00:00 [facility] SARS-COV-2 COVID-19 2021-07-27 Completed [facility] PFIZER VACCINE 00:00:00 [facility] SARS-COV-2 COVID-19 2021-07-27 Completed [facility] PFIZER VACCINE 00:00:00 [facility] SARS-COV-2 COVID-19 2021-07-27 Completed [facility] PFIZER VACCINE 00:00:00 [facility] SARS-COV-2 COVID-19 2021-07-27 Completed [facility] PFIZER VACCINE 00:00:00 [facility] SARS-COV-2 COVID-19 2021-07-27 Completed [facility] PFIZER VACCINE 00:00:00 [facility] SARS-COV-2 COVID-19 2021-07-27 Completed [facility] PFIZER VACCINE 00:00:00 [facility] SARS-COV-2 COVID-19 2021-07-27 Completed [facility] PFIZER VACCINE 00:00:00 [facility] SARS-COV-2 COVID-19 2021-07-27 Completed [facility] PFIZER VACCINE 00:00:00 [facility] SARS-COV-2 COVID-19 2021-07-27 Completed [facility] PFIZER VACCINE 00:00:00 [facility] SARS-COV-2 COVID-19 2021-07-27 Completed [facility] PFIZER VACCINE 00:00:00 [facility] SARS-COV-2 COVID-19 2021-07-27 Completed [facility] PFIZER VACCINE 00:00:00 [facility] SARS-COV-2 COVID-19 2021-07-27 Completed [facility] PFIZER VACCINE 00:00:00 [facility] SARS-COV-2 COVID-19 2021-07-27 Completed [facility] PFIZER VACCINE 00:00:00 [facility] SARS-COV-2 COVID-19 2021-07-27 Completed [facility] PFIZER VACCINE 00:00:00 [facility] SARS-COV-2 COVID-19 2021-07-27 Completed [facility] PFIZER VACCINE 00:00:00 [facility] SARS-COV-2 COVID-19 2021-07-27 Completed [facility] PFIZER VACCINE 00:00:00 [facility] SARS-COV-2 COVID-19 2021-07-27 Completed [facility] PFIZER VACCINE 00:00:00 [facility] SARS-COV-2 COVID-19 2021-07-27 Completed [facility] PFIZER VACCINE 00:00:00 [facility] SARS-COV-2 COVID-19 2021-07-27 Completed [facility] PFIZER VACCINE 00:00:00 [facility] SARS-COV-2 COVID-19 2021-07-27 Completed [facility] PFIZER VACCINE 00:00:00 [facility] SARS-COV-2 COVID-19 2021-07-27 Completed [facility] PFIZER VACCINE 00:00:00 [facility] SARS-COV-2 COVID-19 2021-07-27 Completed [facility] PFIZER VACCINE 00:00:00 [facility] SARS-COV-2 COVID-19 2021-07-27 Completed [facility] PFIZER VACCINE 00:00:00 [facility] SARS-COV-2 COVID-19 2021-07-27 Completed [facility] PFIZER VACCINE 00:00:00 [facility] SARS-COV-2 COVID-19 2021-07-27 Completed [facility] PFIZER VACCINE 00:00:00 [facility] SARS-COV-2 COVID-19 2021-07-27 Completed [facility] PFIZER VACCINE 00:00:00 [facility] SARS-COV-2 COVID-19 2021-07-27 Completed [facility] PFIZER VACCINE 00:00:00 [facility] SARS-COV-2 COVID-19 2021-07-27 Completed [facility] PFIZER VACCINE 00:00:00 [facility] SARS-COV-2 COVID-19 2021-07-27 Completed [facility] PFIZER VACCINE 00:00:00 [facility] SARS-COV-2 COVID-19 2021-07-27 Completed [facility] PFIZER VACCINE 00:00:00 [facility] SARS-COV-2 COVID-19 2021-07-27 Completed [facility] PFIZER VACCINE 00:00:00 [facility] SARS-COV-2 COVID-19 2021-07-27 Completed [facility] PFIZER VACCINE 00:00:00 [facility] SARS-COV-2 COVID-19 2021-07-27 Completed [facility] PFIZER VACCINE 00:00:00 [facility] SARS-COV-2 COVID-19 2021-07-27 Completed [facility] PFIZER VACCINE 00:00:00 [facility] SARS-COV-2 COVID-19 2021-07-27 Completed [facility] PFIZER VACCINE 00:00:00 [facility] SARS-COV-2 COVID-19 2021-07-27 Completed [facility] PFIZER VACCINE 00:00:00 [facility] SARS-COV-2 COVID-19 2021-07-27 Completed [facility] PFIZER VACCINE 00:00:00 [facility] SARS-COV-2 COVID-19 2021-07-27 Completed [facility] PFIZER VACCINE 00:00:00 [facility] SARS-COV-2 COVID-19 2021-07-27 Completed [facility] PFIZER VACCINE 00:00:00 [facility] SARS-COV-2 COVID-19 2021-07-27 Completed [facility] PFIZER VACCINE 00:00:00 [facility] SARS-COV-2 COVID-19 2021-07-27 Completed [facility] PFIZER VACCINE 00:00:00 [facility] SARS-COV-2 COVID-19 2021-07-27 Completed [facility] PFIZER VACCINE 00:00:00 [facility] SARS-COV-2 COVID-19 2021-07-27 Completed [facility] PFIZER VACCINE 00:00:00 [facility] SARS-COV-2 COVID-19 2021-07-27 Completed [facility] PFIZER VACCINE 00:00:00 [facility] SARS-COV-2 COVID-19 2021-07-27 Completed [facility] PFIZER VACCINE 00:00:00 [facility] SARS-COV-2 COVID-19 2021-07-27 Completed [facility] PFIZER VACCINE 00:00:00 [facility] SARS-COV-2 COVID-19 2021-07-27 Completed [facility] PFIZER VACCINE 00:00:00 [facility] SARS-COV-2 COVID-19 2021-07-27 Completed [facility] PFIZER VACCINE 00:00:00 [facility] SARS-COV-2 COVID-19 2021-07-27 Completed [facility] PFIZER VACCINE 00:00:00 [facility] SARS-COV-2 COVID-19 2021-07-27 Completed [facility] PFIZER VACCINE 00:00:00 [facility] SARS-COV-2 COVID-19 2021-07-27 Completed [facility] PFIZER VACCINE 00:00:00 [facility] SARS-COV-2 COVID-19 2021-07-27 Completed [facility] PFIZER VACCINE 00:00:00 [facility] SARS-COV-2 COVID-19 2021-07-27 Completed [facility] PFIZER VACCINE 00:00:00 [facility] SARS-COV-2 COVID-19 2021-07-27 Completed [facility] PFIZER VACCINE 00:00:00 [facility] SARS-COV-2 COVID-19 2021-07-27 Completed [facility] PFIZER VACCINE 00:00:00 [facility] SARS-COV-2 COVID-19 2021-07-27 Completed [facility] PFIZER VACCINE 00:00:00 [facility] SARS-COV-2 COVID-19 2021-07-27 Completed [facility] PFIZER VACCINE 00:00:00 [facility] SARS-COV-2 COVID-19 2021-07-27 Completed [facility] PFIZER VACCINE 00:00:00 [facility] SARS-COV-2 COVID-19 2021-07-27 Completed [facility] PFIZER VACCINE 00:00:00 [facility] SARS-COV-2 COVID-19 2021-07-27 Completed [facility] PFIZER VACCINE 00:00:00 [facility] SARS-COV-2 COVID-19 2021-07-27 Completed [facility] PFIZER VACCINE 00:00:00 [facility] SARS-COV-2 COVID-19 2021-07-27 Completed [facility] PFIZER VACCINE 00:00:00 [facility] SARS-COV-2 COVID-19 2021-07-27 Completed [facility] PFIZER VACCINE 00:00:00 [facility] SARS-COV-2 COVID-19 2021-07-27 Completed [facility] PFIZER VACCINE 00:00:00 [facility] SARS-COV-2 COVID-19 2021-07-27 Completed [facility] PFIZER VACCINE 00:00:00 [facility] SARS-COV-2 COVID-19 2021-07-27 Completed [facility] PFIZER VACCINE 00:00:00 [facility] SARS-COV-2 COVID-19 2021-07-27 Completed [facility] PFIZER VACCINE 00:00:00 [facility] SARS-COV-2 COVID-19 2021-07-27 Completed [facility] PFIZER VACCINE 00:00:00 [facility] SARS-COV-2 COVID-19 2021-07-27 Completed [facility] PFIZER VACCINE 00:00:00 [facility] SARS-COV-2 COVID-19 2021-07-27 Completed [facility] PFIZER VACCINE 00:00:00 [facility] SARS-COV-2 COVID-19 2021-07-27 Completed [facility] PFIZER VACCINE 00:00:00 [facility] SARS-COV-2 COVID-19 2021-07-27 Completed [facility] PFIZER VACCINE 00:00:00 [facility] SARS-COV-2 COVID-19 2021-07-27 Completed [facility] PFIZER VACCINE 00:00:00 [facility] SARS-COV-2 COVID-19 2021-07-27 Completed [facility] PFIZER VACCINE 00:00:00 [facility] SARS-COV-2 COVID-19 2021-07-27 Completed [facility] PFIZER VACCINE 00:00:00 [facility] SARS-COV-2 COVID-19 2021-07-27 Completed [facility] PFIZER VACCINE 00:00:00 [facility] SARS-COV-2 COVID-19 2021-07-27 Completed [facility] PFIZER VACCINE 00:00:00 [facility] SARS-COV-2 COVID-19 2021-07-27 Completed [facility] PFIZER VACCINE 00:00:00 [facility] SARS-COV-2 COVID-19 2021-07-27 Completed [facility] PFIZER VACCINE 00:00:00 [facility] SARS-COV-2 COVID-19 2021-07-27 Completed [facility] PFIZER VACCINE 00:00:00 [facility] SARS-COV-2 COVID-19 2021-07-27 Completed [facility] PFIZER VACCINE 00:00:00 [facility] SARS-COV-2 COVID-19 2021-07-27 Completed [facility] PFIZER VACCINE 00:00:00 [facility] SARS-COV-2 COVID-19 2021-07-27 Completed [facility] PFIZER VACCINE 00:00:00 [facility] SARS-COV-2 COVID-19 2021-07-27 Completed [facility] PFIZER VACCINE 00:00:00 [facility] SARS-COV-2 COVID-19 2021-07-27 Completed [facility] PFIZER VACCINE 00:00:00 [facility] SARS-COV-2 COVID-19 2021-07-27 Completed [facility] PFIZER VACCINE 00:00:00 [facility] SARS-COV-2 COVID-19 2021-07-27 Completed [facility] PFIZER VACCINE 00:00:00 [facility] SARS-COV-2 COVID-19 2021-07-27 Completed [facility] PFIZER VACCINE 00:00:00 [facility] SARS-COV-2 COVID-19 2021-07-27 Completed [facility] PFIZER VACCINE 00:00:00 [facility] SARS-COV-2 COVID-19 2021-07-27 Completed [facility] PFIZER VACCINE 00:00:00 [facility] SARS-COV-2 COVID-19 2021-07-27 Completed [facility] PFIZER VACCINE 00:00:00 [facility] SARS-COV-2 COVID-19 2021-07-27 Completed [facility] PFIZER VACCINE 00:00:00 [facility] SARS-COV-2 COVID-19 2021-07-27 Completed [facility] PFIZER VACCINE 00:00:00 [facility] SARS-COV-2 COVID-19 2021-07-27 Completed [facility] PFIZER VACCINE 00:00:00 [facility] SARS-COV-2 COVID-19 2021-07-27 Completed [facility] PFIZER VACCINE 00:00:00 [facility] SARS-COV-2 COVID-19 2021-07-27 Completed [facility] PFIZER VACCINE 00:00:00 [facility] SARS-COV-2 COVID-19 2021-07-27 Completed [facility] PFIZER VACCINE 00:00:00 [facility] SARS-COV-2 COVID-19 2021-07-27 Completed [facility] PFIZER VACCINE 00:00:00 [facility] SARS-COV-2 COVID-19 2021-07-27 Completed [facility] PFIZER VACCINE 00:00:00 [facility] SARS-COV-2 COVID-19 2021-07-27 Completed [facility] PFIZER VACCINE 00:00:00 [facility] SARS-COV-2 COVID-19 2021-07-27 Completed [facility] PFIZER VACCINE 00:00:00 [facility] SARS-COV-2 COVID-19 2021-07-27 Completed [facility] PFIZER VACCINE 00:00:00 [facility] SARS-COV-2 COVID-19 2021-07-27 Completed [facility] PFIZER VACCINE 00:00:00 [facility] SARS-COV-2 COVID-19 2021-07-27 Completed [facility] PFIZER VACCINE 00:00:00 [facility] SARS-COV-2 COVID-19 2021-07-27 Completed [facility] PFIZER VACCINE 00:00:00 [facility] SARS-COV-2 COVID-19 2021-07-27 Completed [facility] PFIZER VACCINE 00:00:00 [facility] SARS-COV-2 COVID-19 2021-07-27 Completed [facility] PFIZER VACCINE 00:00:00 [facility] SARS-COV-2 COVID-19 2021-07-27 Completed [facility] PFIZER VACCINE 00:00:00 [facility] SARS-COV-2 COVID-19 2021-07-27 Completed [facility] PFIZER VACCINE 00:00:00 [facility] SARS-COV-2 COVID-19 2021-07-27 Completed [facility] PFIZER VACCINE 00:00:00 [facility] SARS-COV-2 COVID-19 2021-07-27 Completed [facility] PFIZER VACCINE 00:00:00 [facility] SARS-COV-2 COVID-19 2021-07-27 Completed [facility] PFIZER VACCINE 00:00:00 [facility] SARS-COV-2 COVID-19 2021-07-27 Completed [facility] PFIZER VACCINE 00:00:00 [facility] SARS-COV-2 COVID-19 2021-07-27 Completed [facility] PFIZER VACCINE 00:00:00 [facility] SARS-COV-2 COVID-19 2021-07-27 Completed [facility] PFIZER VACCINE 00:00:00 [facility] SARS-COV-2 COVID-19 2021-07-27 Completed [facility] PFIZER VACCINE 00:00:00 [facility] SARS-COV-2 COVID-19 2021-07-27 Completed [facility] PFIZER VACCINE 00:00:00 [facility] SARS-COV-2 COVID-19 2021-07-27 Completed [facility] PFIZER VACCINE 00:00:00 [facility] SARS-COV-2 COVID-19 2021-07-27 Completed [facility] PFIZER VACCINE 00:00:00 [facility] SARS-COV-2 COVID-19 2021-07-27 Completed [facility] PFIZER VACCINE 00:00:00 [facility] SARS-COV-2 COVID-19 2021-07-27 Completed [facility] PFIZER VACCINE 00:00:00 [facility] SARS-COV-2 COVID-19 2021-07-27 Completed [facility] PFIZER VACCINE 00:00:00 [facility] SARS-COV-2 COVID-19 2021-07-27 Completed [facility] P[facility]ZER VACCINE 00:00:00 [facility] SARS-COV-2 COVID-19 2020-12-17 Completed [facility] PFIZER VACCINE 00:00:00 [facility] SARS-COV-2 COVID-19 2020-12-17 Completed [facility] PFIZER VACCINE 00:00:00 [facility] SARS-COV-2 COVID-19 2020-12-17 Completed [facility] PFIZER VACCINE 00:00:00 [facility] SARS-COV-2 COVID-19 2020-12-17 Completed [facility] PFIZER VACCINE 00:00:00 [facility] SARS-COV-2 COVID-19 2020-12-17 Completed [facility] PFIZER VACCINE 00:00:00 [facility] SARS-COV-2 COVID-19 2020-12-17 Completed [facility] PFIZER VACCINE 00:00:00 [facility] SARS-COV-2 COVID-19 2020-12-17 Completed [facility] PFIZER VACCINE 00:00:00 [facility] SARS-COV-2 COVID-19 2020-12-17 Completed [facility] PFIZER VACCINE 00:00:00 [facility] SARS-COV-2 COVID-19 2020-12-17 Completed [facility] PFIZER VACCINE 00:00:00 [facility] SARS-COV-2 COVID-19 2020-12-17 Completed [facility] PFIZER VACCINE 00:00:00 [facility] SARS-COV-2 COVID-19 2020-12-17 Completed [facility] PFIZER VACCINE 00:00:00 [facility] SARS-COV-2 COVID-19 2020-12-17 Completed [facility] PFIZER VACCINE 00:00:00 [facility] SARS-COV-2 COVID-19 2020-12-17 Completed [facility] PFIZER VACCINE 00:00:00 [facility] SARS-COV-2 COVID-19 2020-12-17 Completed [facility] PFIZER VACCINE 00:00:00 [facility] SARS-COV-2 COVID-19 2020-12-17 Completed [facility] PFIZER VACCINE 00:00:00 [facility] SARS-COV-2 COVID-19 2020-12-17 Completed [facility] PFIZER VACCINE 00:00:00 [facility] SARS-COV-2 COVID-19 2020-12-17 Completed [facility] PFIZER VACCINE 00:00:00 [facility] SARS-COV-2 COVID-19 2020-12-17 Completed [facility] PFIZER VACCINE 00:00:00 [facility] SARS-COV-2 COVID-19 2020-12-17 Completed [facility] PFIZER VACCINE 00:00:00 [facility] SARS-COV-2 COVID-19 2020-12-17 Completed [facility] PFIZER VACCINE 00:00:00 [facility] SARS-COV-2 COVID-19 2020-12-17 Completed [facility] PFIZER VACCINE 00:00:00 [facility] SARS-COV-2 COVID-19 2020-12-17 Completed [facility] PFIZER VACCINE 00:00:00 [facility] SARS-COV-2 COVID-19 2020-12-17 Completed [facility] PFIZER VACCINE 00:00:00 [facility] SARS-COV-2 COVID-19 2020-12-17 Completed [facility] PFIZER VACCINE 00:00:00 [facility] SARS-COV-2 COVID-19 2020-12-17 Completed [facility] PFIZER VACCINE 00:00:00 [facility] SARS-COV-2 COVID-19 2020-12-17 Completed [facility] PFIZER VACCINE 00:00:00 [facility] SARS-COV-2 COVID-19 2020-12-17 Completed [facility] PFIZER VACCINE 00:00:00 [facility] SARS-COV-2 COVID-19 2020-12-17 Completed [facility] PFIZER VACCINE 00:00:00 [facility] SARS-COV-2 COVID-19 2020-12-17 Completed [facility] PFIZER VACCINE 00:00:00 [facility] SARS-COV-2 COVID-19 2020-12-17 Completed [facility] PFIZER VACCINE 00:00:00 [facility] SARS-COV-2 COVID-19 2020-12-17 Completed [facility] PFIZER VACCINE 00:00:00 [facility] SARS-COV-2 COVID-19 2020-12-17 Completed [facility] PFIZER VACCINE 00:00:00 [facility] SARS-COV-2 COVID-19 2020-12-17 Completed [facility] PFIZER VACCINE 00:00:00 [facility] SARS-COV-2 COVID-19 2020-12-17 Completed [facility] PFIZER VACCINE 00:00:00 [facility] SARS-COV-2 COVID-19 2020-12-17 Completed [facility] PFIZER VACCINE 00:00:00 [facility] SARS-COV-2 COVID-19 2020-12-17 Completed [facility] PFIZER VACCINE 00:00:00 [facility] SARS-COV-2 COVID-19 2020-12-17 Completed [facility] PFIZER VACCINE 00:00:00 [facility] SARS-COV-2 COVID-19 2020-12-17 Completed [facility] PFIZER VACCINE 00:00:00 [facility] SARS-COV-2 COVID-19 2020-12-17 Completed [facility] PFIZER VACCINE 00:00:00 [facility] SARS-COV-2 COVID-19 2020-12-17 Completed [facility] PFIZER VACCINE 00:00:00 [facility] SARS-COV-2 COVID-19 2020-12-17 Completed [facility] PFIZER VACCINE 00:00:00 [facility] SARS-COV-2 COVID-19 2020-12-17 Completed [facility] PFIZER VACCINE 00:00:00 [facility] SARS-COV-2 COVID-19 2020-12-17 Completed [facility] PFIZER VACCINE 00:00:00 [facility] SARS-COV-2 COVID-19 2020-12-17 Completed [facility] PFIZER VACCINE 00:00:00 [facility] SARS-COV-2 COVID-19 2020-12-17 Completed [facility] PFIZER VACCINE 00:00:00 [facility] SARS-COV-2 COVID-19 2020-12-17 Completed [facility] PFIZER VACCINE 00:00:00 [facility] SARS-COV-2 COVID-19 2020-12-17 Completed [facility] PFIZER VACCINE 00:00:00 [facility] SARS-COV-2 COVID-19 2020-12-17 Completed [facility] PFIZER VACCINE 00:00:00 [facility] SARS-COV-2 COVID-19 2020-12-17 Completed [facility] PFIZER VACCINE 00:00:00 [facility] SARS-COV-2 COVID-19 2020-12-17 Completed [facility] PFIZER VACCINE 00:00:00 [facility] SARS-COV-2 COVID-19 2020-12-17 Completed [facility] PFIZER VACCINE 00:00:00 [facility] SARS-COV-2 COVID-19 2020-12-17 Completed [facility] PFIZER VACCINE 00:00:00 [facility] SARS-COV-2 COVID-19 2020-12-17 Completed [facility] PFIZER VACCINE 00:00:00 [facility] SARS-COV-2 COVID-19 2020-12-17 Completed [facility] PFIZER VACCINE 00:00:00 [facility] SARS-COV-2 COVID-19 2020-12-17 Completed [facility] PFIZER VACCINE 00:00:00 [facility] SARS-COV-2 COVID-19 2020-12-17 Completed [facility] PFIZER VACCINE 00:00:00 [facility] SARS-COV-2 COVID-19 2020-12-17 Completed [facility] PFIZER VACCINE 00:00:00 [facility] SARS-COV-2 COVID-19 2020-12-17 Completed [facility] PFIZER VACCINE 00:00:00 [facility] SARS-COV-2 COVID-19 2020-12-17 Completed [facility] PFIZER VACCINE 00:00:00 [facility] SARS-COV-2 COVID-19 2020-12-17 Completed [facility] PFIZER VACCINE 00:00:00 [facility] SARS-COV-2 COVID-19 2020-12-17 Completed [facility] PFIZER VACCINE 00:00:00 [facility] SARS-COV-2 COVID-19 2020-12-17 Completed [facility] PFIZER VACCINE 00:00:00 [facility] SARS-COV-2 COVID-19 2020-12-17 Completed [facility] PFIZER VACCINE 00:00:00 [facility] SARS-COV-2 COVID-19 2020-12-17 Completed [facility] PFIZER VACCINE 00:00:00 [facility] SARS-COV-2 COVID-19 2020-12-17 Completed [facility] PFIZER VACCINE 00:00:00 [facility] SARS-COV-2 COVID-19 2020-12-17 Completed [facility] PFIZER VACCINE 00:00:00 [facility] SARS-COV-2 COVID-19 2020-12-17 Completed [facility] PFIZER VACCINE 00:00:00 [facility] SARS-COV-2 COVID-19 2020-12-17 Completed [facility] PFIZER VACCINE 00:00:00 [facility] SARS-COV-2 COVID-19 2020-12-17 Completed [facility] PFIZER VACCINE 00:00:00 [facility] SARS-COV-2 COVID-19 2020-12-17 Completed [facility] PFIZER VACCINE 00:00:00 [facility] SARS-COV-2 COVID-19 2020-12-17 Completed [facility] PFIZER VACCINE 00:00:00 [facility] SARS-COV-2 COVID-19 2020-12-17 Completed [facility] PFIZER VACCINE 00:00:00 [facility] SARS-COV-2 COVID-19 2020-12-17 Completed [facility] PFIZER VACCINE 00:00:00 [facility] SARS-COV-2 COVID-19 2020-12-17 Completed [facility] PFIZER VACCINE 00:00:00 [facility] SARS-COV-2 COVID-19 2020-12-17 Completed [facility] PFIZER VACCINE 00:00:00 [facility] SARS-COV-2 COVID-19 2020-12-17 Completed [facility] PFIZER VACCINE 00:00:00 [facility] SARS-COV-2 COVID-19 2020-12-17 Completed [facility] PFIZER VACCINE 00:00:00 [facility] SARS-COV-2 COVID-19 2020-12-17 Completed [facility] PFIZER VACCINE 00:00:00 [facility] SARS-COV-2 COVID-19 2020-12-17 Completed [facility] PFIZER VACCINE 00:00:00 [facility] SARS-COV-2 COVID-19 2020-12-17 Completed [facility] PFIZER VACCINE 00:00:00 [facility] SARS-COV-2 COVID-19 2020-12-17 Completed [facility] PFIZER VACCINE 00:00:00 [facility] SARS-COV-2 COVID-19 2020-12-17 Completed [facility] PFIZER VACCINE 00:00:00 [facility] SARS-COV-2 COVID-19 2020-12-17 Completed [facility] PFIZER VACCINE 00:00:00 [facility] SARS-COV-2 COVID-19 2020-12-17 Completed [facility] PFIZER VACCINE 00:00:00 [facility] SARS-COV-2 COVID-19 2020-12-17 Completed [facility] PFIZER VACCINE 00:00:00 [facility] SARS-COV-2 COVID-19 2020-12-17 Completed [facility] PFIZER VACCINE 00:00:00 [facility] SARS-COV-2 COVID-19 2020-12-17 Completed [facility] PFIZER VACCINE 00:00:00 [facility] SARS-COV-2 COVID-19 2020-12-17 Completed [facility] PFIZER VACCINE 00:00:00 [facility] SARS-COV-2 COVID-19 2020-12-17 Completed [facility] PFIZER VACCINE 00:00:00 [facility] SARS-COV-2 COVID-19 2020-12-17 Completed [facility] PFIZER VACCINE 00:00:00 [facility] SARS-COV-2 COVID-19 2020-12-17 Completed [facility] PFIZER VACCINE 00:00:00 [facility] SARS-COV-2 COVID-19 2020-12-17 Completed [facility] PFIZER VACCINE 00:00:00 [facility] SARS-COV-2 COVID-19 2020-12-17 Completed [facility] PFIZER VACCINE 00:00:00 [facility] SARS-COV-2 COVID-19 2020-12-17 Completed [facility] PFIZER VACCINE 00:00:00 [facility] SARS-COV-2 COVID-19 2020-12-17 Completed [facility] PFIZER VACCINE 00:00:00 [facility] SARS-COV-2 COVID-19 2020-12-17 Completed [facility] PFIZER VACCINE 00:00:00 [facility] SARS-COV-2 COVID-19 2020-12-17 Completed [facility] PFIZER VACCINE 00:00:00 [facility] SARS-COV-2 COVID-19 2020-12-17 Completed [facility] PFIZER VACCINE 00:00:00 [facility] SARS-COV-2 COVID-19 2020-12-17 Completed [facility] PFIZER VACCINE 00:00:00 [facility] SARS-COV-2 COVID-19 2020-12-17 Completed [facility] PFIZER VACCINE 00:00:00 [facility] SARS-COV-2 COVID-19 2020-12-17 Completed [facility] PFIZER VACCINE 00:00:00 [facility] SARS-COV-2 COVID-19 2020-12-17 Completed [facility] PFIZER VACCINE 00:00:00 [facility] SARS-COV-2 COVID-19 2020-12-17 Completed [facility] PFIZER VACCINE 00:00:00 [facility] SARS-COV-2 COVID-19 2020-12-17 Completed [facility] PFIZER VACCINE 00:00:00 [facility] SARS-COV-2 COVID-19 2020-12-17 Completed [facility] PFIZER VACCINE 00:00:00 [facility] SARS-COV-2 COVID-19 2020-12-17 Completed [facility] PFIZER VACCINE 00:00:00 [facility] SARS-COV-2 COVID-19 2020-12-17 Completed [facility] PFIZER VACCINE 00:00:00 [facility] SARS-COV-2 COVID-19 2020-12-17 Completed [facility] PFIZER VACCINE 00:00:00 [facility] SARS-COV-2 COVID-19 2020-12-17 Completed [facility] PFIZER VACCINE 00:00:00 [facility] SARS-COV-2 COVID-19 2020-12-17 Completed [facility] PFIZER VACCINE 00:00:00 [facility] SARS-COV-2 COVID-19 2020-12-17 Completed [facility] PFIZER VACCINE 00:00:00 [facility] SARS-COV-2 COVID-19 2020-12-17 Completed [facility] PFIZER VACCINE 00:00:00 [facility] SARS-COV-2 COVID-19 2020-12-17 Completed [facility] PFIZER VACCINE 00:00:00 [facility] SARS-COV-2 COVID-19 2020-12-17 Completed [facility] PFIZER VACCINE 00:00:00 [facility] SARS-COV-2 COVID-19 2020-12-17 Completed [facility] PFIZER VACCINE 00:00:00 [facility] SARS-COV-2 COVID-19 2020-12-17 Completed [facility] PFIZER VACCINE 00:00:00 [facility] SARS-COV-2 COVID-19 2020-12-17 Completed [facility] PFIZER VACCINE 00:00:00 [facility] SARS-COV-2 COVID-19 2020-12-17 Completed [facility] PFIZER VACCINE 00:00:00 [facility] SARS-COV-2 COVID-19 2020-12-17 Completed [facility] PFIZER VACCINE 00:00:00 [facility] SARS-COV-2 COVID-19 2020-12-17 Completed [facility] PFIZER VACCINE 00:00:00 [facility] SARS-COV-2 COVID-19 2020-12-17 Completed [facility] PFIZER VACCINE 00:00:00 [facility] SARS-COV-2 COVID-19 2020-12-17 Completed [facility] PFIZER VACCINE 00:00:00 [facility] SARS-COV-2 COVID-19 2020-12-17 Completed [facility] PFIZER VACCINE 00:00:00 [facility] SARS-COV-2 COVID-19 2020-12-17 Completed [facility] PFIZER VACCINE 00:00:00 [facility] SARS-COV-2 COVID-19 2020-12-17 Completed [facility] PFIZER VACCINE 00:00:00 [facility] SARS-COV-2 COVID-19 2020-12-17 Completed [facility] PFIZER VACCINE 00:00:00 [facility] SARS-COV-2 COVID-19 2020-12-17 Completed [facility] PFIZER VACCINE 00:00:00 [facility] SARS-COV-2 COVID-19 2020-12-17 Completed [facility] PFIZER VACCINE 00:00:00 [facility] SARS-COV-2 COVID-19 2020-12-17 Completed [facility] PFIZER VACCINE 00:00:00 [facility] SARS-COV-2 COVID-19 2020-12-17 Completed [facility] PFIZER VACCINE 00:00:00 [facility] SARS-COV-2 COVID-19 2020-12-17 Completed [facility] PFIZER VACCINE 00:00:00 [facility] SARS-COV-2 COVID-19 2020-12-17 Completed [facility] PFIZER VACCINE 00:00:00 [facility] SARS-COV-2 COVID-19 2020-12-17 Completed [facility] PFIZER VACCINE 00:00:00 [facility] SARS-COV-2 COVID-19 2020-12-17 Completed [facility] PFIZER VACCINE 00:00:00 [facility] SARS-COV-2 COVID-19 2020-12-17 Completed [facility] PFIZER VACCINE 00:00:00 [facility] SARS-COV-2 COVID-19 2020-12-17 Completed [facility] PFIZER VACCINE 00:00:00 [facility] SARS-COV-2 COVID-19 2020-12-17 Completed [facility] PFIZER VACCINE 00:00:00 [facility] SARS-COV-2 COVID-19 2020-12-17 Completed [facility] PFIZER VACCINE 00:00:00 [facility] SARS-COV-2 COVID-19 2020-12-17 Completed [facility] PFIZER VACCINE 00:00:00 [facility] SARS-COV-2 COVID-19 2020-12-17 Completed [facility] PFIZER VACCINE 00:00:00 [facility] SARS-COV-2 COVID-19 2020-12-17 Completed [facility] PFIZER VACCINE 00:00:00 [facility] SARS-COV-2 COVID-19 2020-12-17 Completed [facility] PFIZER VACCINE 00:00:00 [facility] SARS-COV-2 COVID-19 2020-12-17 Completed [facility] PFIZER VACCINE 00:00:00 [facility] SARS-COV-2 COVID-19 2020-11-26 Completed [facility] PFIZER VACCINE 00:00:00 [facility] SARS-COV-2 COVID-19 2020-11-26 Completed [facility] PFIZER VACCINE 00:00:00 [facility] SARS-COV-2 COVID-19 2020-11-26 Completed [facility] PFIZER VACCINE 00:00:00 [facility] SARS-COV-2 COVID-19 2020-11-26 Completed [facility] PFIZER VACCINE 00:00:00 [facility] SARS-COV-2 COVID-19 2020-11-26 Completed [facility] PFIZER VACCINE 00:00:00 [facility] SARS-COV-2 COVID-19 2020-11-26 Completed [facility] PFIZER VACCINE 00:00:00 [facility] SARS-COV-2 COVID-19 2020-11-26 Completed [facility] PFIZER VACCINE 00:00:00 [facility] SARS-COV-2 COVID-19 2020-11-26 Completed [facility] PFIZER VACCINE 00:00:00 [facility] SARS-COV-2 COVID-19 2020-11-26 Completed [facility] PFIZER VACCINE 00:00:00 [facility] SARS-COV-2 COVID-19 2020-11-26 Completed [facility] PFIZER VACCINE 00:00:00 [facility] SARS-COV-2 COVID-19 2020-11-26 Completed [facility] PFIZER VACCINE 00:00:00 [facility] SARS-COV-2 COVID-19 2020-11-26 Completed [facility] PFIZER VACCINE 00:00:00 [facility] SARS-COV-2 COVID-19 2020-11-26 Completed [facility] PFIZER VACCINE 00:00:00 [facility] SARS-COV-2 COVID-19 2020-11-26 Completed [facility] PFIZER VACCINE 00:00:00 [facility] SARS-COV-2 COVID-19 2020-11-26 Completed [facility] PFIZER VACCINE 00:00:00 [facility] SARS-COV-2 COVID-19 2020-11-26 Completed [facility] PFIZER VACCINE 00:00:00 [facility] SARS-COV-2 COVID-19 2020-11-26 Completed [facility] PFIZER VACCINE 00:00:00 [facility] SARS-COV-2 COVID-19 2020-11-26 Completed [facility] PFIZER VACCINE 00:00:00 [facility] SARS-COV-2 COVID-19 2020-11-26 Completed [facility] PFIZER VACCINE 00:00:00 [facility] SARS-COV-2 COVID-19 2020-11-26 Completed [facility] PFIZER VACCINE 00:00:00 [facility] SARS-COV-2 COVID-19 2020-11-26 Completed [facility] PFIZER VACCINE 00:00:00 [facility] SARS-COV-2 COVID-19 2020-11-26 Completed [facility] PFIZER VACCINE 00:00:00 [facility] SARS-COV-2 COVID-19 2020-11-26 Completed [facility] PFIZER VACCINE 00:00:00 [facility] SARS-COV-2 COVID-19 2020-11-26 Completed [facility] PFIZER VACCINE 00:00:00 [facility] SARS-COV-2 COVID-19 2020-11-26 Completed [facility] PFIZER VACCINE 00:00:00 [facility] SARS-COV-2 COVID-19 2020-11-26 Completed [facility] PFIZER VACCINE 00:00:00 [facility] SARS-COV-2 COVID-19 2020-11-26 Completed [facility] PFIZER VACCINE 00:00:00 [facility] SARS-COV-2 COVID-19 2020-11-26 Completed [facility] PFIZER VACCINE 00:00:00 [facility] SARS-COV-2 COVID-19 2020-11-26 Completed [facility] PFIZER VACCINE 00:00:00 [facility] SARS-COV-2 COVID-19 2020-11-26 Completed [facility] PFIZER VACCINE 00:00:00 [facility] SARS-COV-2 COVID-19 2020-11-26 Completed [facility] PFIZER VACCINE 00:00:00 [facility] SARS-COV-2 COVID-19 2020-11-26 Completed [facility] PFIZER VACCINE 00:00:00 [facility] SARS-COV-2 COVID-19 2020-11-26 Completed [facility] PFIZER VACCINE 00:00:00 [facility] SARS-COV-2 COVID-19 2020-11-26 Completed [facility] PFIZER VACCINE 00:00:00 [facility] SARS-COV-2 COVID-19 2020-11-26 Completed [facility] PFIZER VACCINE 00:00:00 [facility] SARS-COV-2 COVID-19 2020-11-26 Completed [facility] PFIZER VACCINE 00:00:00 [facility] SARS-COV-2 COVID-19 2020-11-26 Completed [facility] PFIZER VACCINE 00:00:00 [facility] SARS-COV-2 COVID-19 2020-11-26 Completed [facility] PFIZER VACCINE 00:00:00 [facility] SARS-COV-2 COVID-19 2020-11-26 Completed [facility] PFIZER VACCINE 00:00:00 [facility] SARS-COV-2 COVID-19 2020-11-26 Completed [facility] PFIZER VACCINE 00:00:00 [facility] SARS-COV-2 COVID-19 2020-11-26 Completed [facility] PFIZER VACCINE 00:00:00 [facility] SARS-COV-2 COVID-19 2020-11-26 Completed [facility] PFIZER VACCINE 00:00:00 [facility] SARS-COV-2 COVID-19 2020-11-26 Completed [facility] PFIZER VACCINE 00:00:00 [facility] SARS-COV-2 COVID-19 2020-11-26 Completed [facility] PFIZER VACCINE 00:00:00 [facility] SARS-COV-2 COVID-19 2020-11-26 Completed [facility] PFIZER VACCINE 00:00:00 [facility] SARS-COV-2 COVID-19 2020-11-26 Completed [facility] PFIZER VACCINE 00:00:00 [facility] SARS-COV-2 COVID-19 2020-11-26 Completed [facility] PFIZER VACCINE 00:00:00 [facility] SARS-COV-2 COVID-19 2020-11-26 Completed [facility] PFIZER VACCINE 00:00:00 [facility] SARS-COV-2 COVID-19 2020-11-26 Completed [facility] PFIZER VACCINE 00:00:00 [facility] SARS-COV-2 COVID-19 2020-11-26 Completed [facility] PFIZER VACCINE 00:00:00 [facility] SARS-COV-2 COVID-19 2020-11-26 Completed [facility] PFIZER VACCINE 00:00:00 [facility] SARS-COV-2 COVID-19 2020-11-26 Completed [facility] PFIZER VACCINE 00:00:00 [facility] SARS-COV-2 COVID-19 2020-11-26 Completed [facility] PFIZER VACCINE 00:00:00 [facility] SARS-COV-2 COVID-19 2020-11-26 Completed [facility] PFIZER VACCINE 00:00:00 [facility] SARS-COV-2 COVID-19 2020-11-26 Completed [facility] PFIZER VACCINE 00:00:00 [facility] SARS-COV-2 COVID-19 2020-11-26 Completed [facility] PFIZER VACCINE 00:00:00 [facility] SARS-COV-2 COVID-19 2020-11-26 Completed [facility] PFIZER VACCINE 00:00:00 [facility] SARS-COV-2 COVID-19 2020-11-26 Completed [facility] PFIZER VACCINE 00:00:00 [facility] SARS-COV-2 COVID-19 2020-11-26 Completed [facility] PFIZER VACCINE 00:00:00 [facility] SARS-COV-2 COVID-19 2020-11-26 Completed [facility] PFIZER VACCINE 00:00:00 [facility] SARS-COV-2 COVID-19 2020-11-26 Completed [facility] PFIZER VACCINE 00:00:00 [facility] SARS-COV-2 COVID-19 2020-11-26 Completed [facility] PFIZER VACCINE 00:00:00 [facility] SARS-COV-2 COVID-19 2020-11-26 Completed [facility] PFIZER VACCINE 00:00:00 [facility] SARS-COV-2 COVID-19 2020-11-26 Completed [facility] PFIZER VACCINE 00:00:00 [facility] SARS-COV-2 COVID-19 2020-11-26 Completed [facility] PFIZER VACCINE 00:00:00 [facility] SARS-COV-2 COVID-19 2020-11-26 Completed [facility] PFIZER VACCINE 00:00:00 [facility] SARS-COV-2 COVID-19 2020-11-26 Completed [facility] PFIZER VACCINE 00:00:00 [facility] SARS-COV-2 COVID-19 2020-11-26 Completed [facility] PFIZER VACCINE 00:00:00 [facility] SARS-COV-2 COVID-19 2020-11-26 Completed [facility] PFIZER VACCINE 00:00:00 [facility] SARS-COV-2 COVID-19 2020-11-26 Completed [facility] PFIZER VACCINE 00:00:00 [facility] SARS-COV-2 COVID-19 2020-11-26 Completed [facility] PFIZER VACCINE 00:00:00 [facility] SARS-COV-2 COVID-19 2020-11-26 Completed [facility] PFIZER VACCINE 00:00:00 [facility] SARS-COV-2 COVID-19 2020-11-26 Completed [facility] PFIZER VACCINE 00:00:00 [facility] SARS-COV-2 COVID-19 2020-11-26 Completed [facility] PFIZER VACCINE 00:00:00 [facility] SARS-COV-2 COVID-19 2020-11-26 Completed [facility] PFIZER VACCINE 00:00:00 [facility] SARS-COV-2 COVID-19 2020-11-26 Completed [facility] PFIZER VACCINE 00:00:00 [place] [facility] SARS-COV-2 COVID-19 2020-11-26 Completed [facility] PFIZER VACCINE 00:00:00 [facility] SARS-COV-2 COVID-19 2020-11-26 Completed [facility] PFIZER VACCINE 00:00:00 [facility] SARS-COV-2 COVID-19 2020-11-26 Completed [facility] PFIZER VACCINE 00:00:00 [facility] SARS-COV-2 COVID-19 2020-11-26 Completed [facility] PFIZER VACCINE 00:00:00 [facility] SARS-COV-2 COVID-19 2020-11-26 Completed [facility] PFIZER VACCINE 00:00:00 [facility] SARS-COV-2 COVID-19 2020-11-26 Completed [facility] PFIZER VACCINE 00:00:00 [facility] SARS-COV-2 COVID-19 2020-11-26 Completed [facility] PFIZER VACCINE 00:00:00 [facility] SARS-COV-2 COVID-19 2020-11-26 Completed [facility] PFIZER VACCINE 00:00:00 [facility] SARS-COV-2 COVID-19 2020-11-26 Completed [facility] PFIZER VACCINE 00:00:00 [facility] SARS-COV-2 COVID-19 2020-11-26 Completed [facility] PFIZER VACCINE 00:00:00 [facility] SARS-COV-2 COVID-19 2020-11-26 Completed [facility] PFIZER VACCINE 00:00:00 [facility] SARS-COV-2 COVID-19 2020-11-26 Completed [facility] PFIZER VACCINE 00:00:00 [facility] SARS-COV-2 COVID-19 2020-11-26 Completed [facility] PFIZER VACCINE 00:00:00 [facility] SARS-COV-2 COVID-19 2020-11-26 Completed [facility] PFIZER VACCINE 00:00:00 [facility] SARS-COV-2 COVID-19 2020-11-26 Completed [facility] PFIZER VACCINE 00:00:00 [facility] SARS-COV-2 COVID-19 2020-11-26 Completed [facility] PFIZER VACCINE 00:00:00 [facility] SARS-COV-2 COVID-19 2020-11-26 Completed [facility] PFIZER VACCINE 00:00:00 [facility] SARS-COV-2 COVID-19 2020-11-26 Completed [facility] PFIZER VACCINE 00:00:00 [facility] SARS-COV-2 COVID-19 2020-11-26 Completed [facility] PFIZER VACCINE 00:00:00 [facility] SARS-COV-2 COVID-19 2020-11-26 Completed [facility] PFIZER VACCINE 00:00:00 [facility] SARS-COV-2 COVID-19 2020-11-26 Completed [facility] PFIZER VACCINE 00:00:00 [facility] SARS-COV-2 COVID-19 2020-11-26 Completed [facility] PFIZER VACCINE 00:00:00 [facility] SARS-COV-2 COVID-19 2020-11-26 Completed [facility] PFIZER VACCINE 00:00:00 [facility] SARS-COV-2 COVID-19 2020-11-26 Completed [facility] PFIZER VACCINE 00:00:00 [facility] SARS-COV-2 COVID-19 2020-11-26 Completed [facility] PFIZER VACCINE 00:00:00 [facility] SARS-COV-2 COVID-19 2020-11-26 Completed [facility] PFIZER VACCINE 00:00:00 [facility] SARS-COV-2 COVID-19 2020-11-26 Completed [facility] PFIZER VACCINE 00:00:00 [facility] SARS-COV-2 COVID-19 2020-11-26 Completed [facility] PFIZER VACCINE 00:00:00 [facility] SARS-COV-2 COVID-19 2020-11-26 Completed [facility] PFIZER VACCINE 00:00:00 [facility] SARS-COV-2 COVID-19 2020-11-26 Completed [facility] PFIZER VACCINE 00:00:00 [facility] SARS-COV-2 COVID-19 2020-11-26 Completed [facility] PFIZER VACCINE 00:00:00 [place] [facility] SARS-COV-2 COVID-19 2020-11-26 Completed [facility] PFIZER VACCINE 00:00:00 [facility] SARS-COV-2 COVID-19 2020-11-26 Completed [facility] PFIZER VACCINE 00:00:00 [facility] SARS-COV-2 COVID-19 2020-11-26 Completed [facility] PFIZER VACCINE 00:00:00 [facility] SARS-COV-2 COVID-19 2020-11-26 Completed [facility] PFIZER VACCINE 00:00:00 [facility] SARS-COV-2 COVID-19 2020-11-26 Completed [facility] PFIZER VACCINE 00:00:00 [facility] SARS-COV-2 COVID-19 2020-11-26 Completed [facility] PFIZER VACCINE 00:00:00 [facility] SARS-COV-2 COVID-19 2020-11-26 Completed [facility] PFIZER VACCINE 00:00:00 [facility] SARS-COV-2 COVID-19 2020-11-26 Completed [facility] PFIZER VACCINE 00:00:00 [facility] SARS-COV-2 COVID-19 2020-11-26 Completed [facility] PFIZER VACCINE 00:00:00 [facility] SARS-COV-2 COVID-19 2020-11-26 Completed [facility] PFIZER VACCINE 00:00:00 [facility] SARS-COV-2 COVID-19 2020-11-26 Completed [facility] PFIZER VACCINE 00:00:00 [facility] SARS-COV-2 COVID-19 2020-11-26 Completed [facility] PFIZER VACCINE 00:00:00 [facility] SARS-COV-2 COVID-19 2020-11-26 Completed [facility] PFIZER VACCINE 00:00:00 [facility] SARS-COV-2 COVID-19 2020-11-26 Completed [facility] PFIZER VACCINE 00:00:00 [facility] SARS-COV-2 COVID-19 2020-11-26 Completed [facility] PFIZER VACCINE 00:00:00 [facility] SARS-COV-2 COVID-19 2020-11-26 Completed [facility] PFIZER VACCINE 00:00:00 [facility] SARS-COV-2 COVID-19 2020-11-26 Completed [facility] PFIZER VACCINE 00:00:00 [facility] SARS-COV-2 COVID-19 2020-11-26 Completed [facility] PFIZER VACCINE 00:00:00 [facility] SARS-COV-2 COVID-19 2020-11-26 Completed [facility] PFIZER VACCINE 00:00:00 [facility] SARS-COV-2 COVID-19 2020-11-26 Completed [facility] PFIZER VACCINE 00:00:00 [facility] SARS-COV-2 COVID-19 2020-11-26 Completed [facility] PFIZER VACCINE 00:00:00 [facility] SARS-COV-2 COVID-19 2020-11-26 Completed [facility] PFIZER VACCINE 00:00:00 [facility] SARS-COV-2 COVID-19 2020-11-26 Completed [facility] PFIZER VACCINE 00:00:00 [facility] SARS-COV-2 COVID-19 2020-11-26 Completed [facility] PFIZER VACCINE 00:00:00 [facility] SARS-COV-2 COVID-19 2020-11-26 Completed [facility] PFIZER VACCINE 00:00:00 [facility] SARS-COV-2 COVID-19 2020-11-26 Completed [facility] PFIZER VACCINE 00:00:00 [facility] SARS-COV-2 COVID-19 2020-11-26 Completed [facility] PFIZER VACCINE 00:00:00 [facility] SARS-COV-2 COVID-19 2020-11-26 Completed [facility] PFIZER VACCINE 00:00:00 [facility] SARS-COV-2 COVID-19 2020-11-26 Completed [facility] PFIZER VACCINE 00:00:00 [facility] SARS-COV-2 COVID-19 2020-11-26 Completed [facility] PFIZER VACCINE 00:00:00 [facility] SARS-COV-2 COVID-19 2020-11-26 Completed [facility] PFIZER VACCINE 00:00:00 [facility] SARS-COV-2 COVID-19 2020-11-26 Completed [facility] PFIZER VACCINE 00:00:00 [facility] SARS-COV-2 COVID-19 2020-11-26 Completed [facility] PFIZER VACCINE 00:00:00 [facility] SARS-COV-2 COVID-19 2020-11-26 Completed [facility] PFIZER VACCINE 00:00:00 [facility] SARS-COV-2 COVID-19 2020-11-26 Completed [facility] PFIZER VACCINE 00:00:00 [facility] SARS-COV-2 COVID-19 2020-11-26 Completed [facility] PFIZER VACCINE 00:00:00 [facility] Influenza High Dose 2020-08-12 Completed [facility] 00:00:00 [facility] Pneumococcal 2020-08-12 Completed [facility] Polysaccharide, 00:00:00 [place] [facility] PPSV23 (PNEUMOVAX) [facility] Influenza High Dose 2020-08-12 Completed [facility] 00:00:00 [facility] Pneumococcal 2020-08-12 Completed [facility] Polysaccharide, 00:00:00 [place] [facility] PPSV23 (PNEUMOVAX) [facility] Influenza High Dose 2020-08-12 Completed [facility] 00:00:00 [facility] Pneumococcal 2020-08-12 Completed [facility] Polysaccharide, 00:00:00 [place] [facility] PPSV23 (PNEUMOVAX) [facility] Influenza High Dose 2020-08-12 Completed [facility] 00:00:00 [facility] Pneumococcal 2020-08-12 Completed [facility] Polysaccharide, 00:00:00 [place] [facility] PPSV23 (PNEUMOVAX) [facility] Influenza High Dose 2020-08-12 Completed [facility] 00:00:00 [facility] Pneumococcal 2020-08-12 Completed [facility] Polysaccharide, 00:00:00 [place] [facility] PPSV23 (PNEUMOVAX) [facility] Influenza High Dose 2020-08-12 Completed [facility] 00:00:00 [facility] Pneumococcal 2020-08-12 Completed [facility] Polysaccharide, 00:00:00 [place] [facility] PPSV23 (PNEUMOVAX) [facility] Influenza High Dose 2020-08-12 Completed [facility] 00:00:00 [facility] Pneumococcal 2020-08-12 Completed [facility] Polysaccharide, 00:00:00 [place] [facility] PPSV23 (PNEUMOVAX) [facility] Influenza High Dose 2020-08-12 Completed [facility] 00:00:00 [facility] Pneumococcal 2020-08-12 Completed [facility] Polysaccharide, 00:00:00 [place] [facility] PPSV23 (PNEUMOVAX) [facility] Influenza High Dose 2020-08-12 Completed [facility] 00:00:00 [facility] Pneumococcal 2020-08-12 Completed [facility] Polysaccharide, 00:00:00 [place] [facility] PPSV23 (PNEUMOVAX) [facility] Influenza High Dose 2020-08-12 Completed [facility] 00:00:00 [facility] Pneumococcal 2020-08-12 Completed [facility] Polysaccharide, 00:00:00 [place] [facility] PPSV23 (PNEUMOVAX) [facility] Influenza High Dose 2020-08-12 Completed [facility] 00:00:00 [facility] Pneumococcal 2020-08-12 Completed [facility] Polysaccharide, 00:00:00 [place] [facility] PPSV23 (PNEUMOVAX) [facility] Influenza High Dose 2020-08-12 Completed [facility] 00:00:00 [facility] Pneumococcal 2020-08-12 Completed [facility] Polysaccharide, 00:00:00 [place] [facility] PPSV23 (PNEUMOVAX) [facility] Influenza High Dose 2020-08-12 Completed [facility] 00:00:00 [facility] Pneumococcal 2020-08-12 Completed [facility] Polysaccharide, 00:00:00 [place] [facility] PPSV23 (PNEUMOVAX) [facility] Influenza High Dose 2020-08-12 Completed [facility] 00:00:00 [facility] Pneumococcal 2020-08-12 Completed [facility] Polysaccharide, 00:00:00 [place] [facility] PPSV23 (PNEUMOVAX) [facility] Influenza High Dose 2020-08-12 Completed [facility] 00:00:00 [facility] Pneumococcal 2020-08-12 Completed [facility] Polysaccharide, 00:00:00 [place] [facility] PPSV23 (PNEUMOVAX) [facility] Influenza High Dose 2020-08-12 Completed [facility] 00:00:00 [facility] Pneumococcal 2020-08-12 Completed [facility] Polysaccharide, 00:00:00 [place] [facility] PPSV23 (PNEUMOVAX) [facility] Influenza High Dose 2020-08-12 Completed [facility] 00:00:00 [facility] Pneumococcal 2020-08-12 Completed [facility] Polysaccharide, 00:00:00 [place] [facility] PPSV23 (PNEUMOVAX) [facility] Influenza High Dose 2020-08-12 Completed [facility] 00:00:00 [facility] Pneumococcal 2020-08-12 Completed [facility] Polysaccharide, 00:00:00 [place] [facility] PPSV23 (PNEUMOVAX) [facility] Influenza High Dose 2020-08-12 Completed [facility] 00:00:00 [facility] Pneumococcal 2020-08-12 Completed [facility] Polysaccharide, 00:00:00 [place] [facility] PPSV23 (PNEUMOVAX) [facility] Influenza High Dose 2020-08-12 Completed [facility] 00:00:00 [facility] Pneumococcal 2020-08-12 Completed [facility] Polysaccharide, 00:00:00 [place] [facility] PPSV23 (PNEUMOVAX) [facility] Influenza High Dose 2020-08-12 Completed [facility] 00:00:00 [facility] Pneumococcal 2020-08-12 Completed [facility] Polysaccharide, 00:00:00 [place] [facility] PPSV23 (PNEUMOVAX) [facility] Influenza High Dose 2020-08-12 Completed [facility] 00:00:00 [facility] Pneumococcal 2020-08-12 Completed [facility] Polysaccharide, 00:00:00 [place] [facility] PPSV23 (PNEUMOVAX) [facility] Influenza High Dose 2020-08-12 Completed [facility] 00:00:00 [facility] Pneumococcal 2020-08-12 Completed [facility] Polysaccharide, 00:00:00 [place] [facility] PPSV23 (PNEUMOVAX) [facility] Influenza High Dose 2020-08-12 Completed [facility] 00:00:00 [facility] Pneumococcal 2020-08-12 Completed [facility] Polysaccharide, 00:00:00 [place] [facility] PPSV23 (PNEUMOVAX) [facility] Influenza High Dose 2020-08-12 Completed [facility] 00:00:00 [facility] Pneumococcal 2020-08-12 Completed [facility] Polysaccharide, 00:00:00 [place] [facility] PPSV23 (PNEUMOVAX) [facility] Influenza High Dose 2020-08-12 Completed [facility] 00:00:00 [facility] Pneumococcal 2020-08-12 Completed [facility] Polysaccharide, 00:00:00 [place] [facility] PPSV23 (PNEUMOVAX) [facility] Influenza High Dose 2020-08-12 Completed [facility] 00:00:00 [facility] Pneumococcal 2020-08-12 Completed [facility] Polysaccharide, 00:00:00 [place] [facility] PPSV23 (PNEUMOVAX) [facility] Influenza High Dose 2020-08-12 Completed [facility] 00:00:00 [facility] Pneumococcal 2020-08-12 Completed [facility] Polysaccharide, 00:00:00 [place] [facility] PPSV23 (PNEUMOVAX) [facility] Influenza High Dose 2020-08-12 Completed [facility] 00:00:00 [facility] Pneumococcal 2020-08-12 Completed [facility] Polysaccharide, 00:00:00 [place] [facility] PPSV23 (PNEUMOVAX) [facility] Influenza High Dose 2020-08-12 Completed [facility] 00:00:00 [facility] Pneumococcal 2020-08-12 Completed [facility] Polysaccharide, 00:00:00 [place] [facility] PPSV23 (PNEUMOVAX) [facility] Influenza High Dose 2020-08-12 Completed [facility] 00:00:00 [facility] Pneumococcal 2020-08-12 Completed [facility] Polysaccharide, 00:00:00 [place] [facility] PPSV23 (PNEUMOVAX) [facility] Influenza High Dose 2020-08-12 Completed [facility] 00:00:00 [facility] Pneumococcal 2020-08-12 Completed [facility] Polysaccharide, 00:00:00 [place] [facility] PPSV23 (PNEUMOVAX) [facility] Influenza High Dose 2020-08-12 Completed [facility] 00:00:00 [facility] Pneumococcal 2020-08-12 Completed [facility] Polysaccharide, 00:00:00 [place] [facility] PPSV23 (PNEUMOVAX) [facility] Influenza High Dose 2020-08-12 Completed [facility] 00:00:00 [facility] Pneumococcal 2020-08-12 Completed [facility] Polysaccharide, 00:00:00 [place] [facility] PPSV23 (PNEUMOVAX) [facility] Influenza High Dose 2020-08-12 Completed [facility] 00:00:00 [facility] Pneumococcal 2020-08-12 Completed [facility] Polysaccharide, 00:00:00 [place] [facility] PPSV23 (PNEUMOVAX) [facility] Influenza High Dose 2020-08-12 Completed [facility] 00:00:00 [facility] Pneumococcal 2020-08-12 Completed [facility] Polysaccharide, 00:00:00 [place] [facility] PPSV23 (PNEUMOVAX) [facility] Influenza High Dose 2020-08-12 Completed [facility] 00:00:00 [facility] Pneumococcal 2020-08-12 Completed [facility] Polysaccharide, 00:00:00 [place] [facility] PPSV23 (PNEUMOVAX) [facility] Influenza High Dose 2020-08-12 Completed [facility] 00:00:00 [facility] Pneumococcal 2020-08-12 Completed [facility] Polysaccharide, 00:00:00 [place] [facility] PPSV23 (PNEUMOVAX) [facility] Influenza High Dose 2020-08-12 Completed [facility] 00:00:00 [facility] Pneumococcal 2020-08-12 Completed [facility] Polysaccharide, 00:00:00 [place] [facility] PPSV23 (PNEUMOVAX) [facility] Influenza High Dose 2020-08-12 Completed [facility] 00:00:00 [facility] Pneumococcal 2020-08-12 Completed [facility] Polysaccharide, 00:00:00 [place] [facility] PPSV23 (PNEUMOVAX) [facility] Influenza High Dose 2020-08-12 Completed [facility] 00:00:00 [facility] Pneumococcal 2020-08-12 Completed [facility] Polysaccharide, 00:00:00 [place] [facility] PPSV23 (PNEUMOVAX) [facility] Influenza High Dose 2020-08-12 Completed [facility] 00:00:00 [facility] Pneumococcal 2020-08-12 Completed [facility] Polysaccharide, 00:00:00 [place] [facility] PPSV23 (PNEUMOVAX) [facility] Influenza High Dose 2020-08-12 Completed [facility] 00:00:00 [facility] Pneumococcal 2020-08-12 Completed [facility] Polysaccharide, 00:00:00 [place] [facility] PPSV23 (PNEUMOVAX) [facility] Influenza High Dose 2020-08-12 Completed [facility] 00:00:00 [facility] Pneumococcal 2020-08-12 Completed [facility] Polysaccharide, 00:00:00 [place] [facility] PPSV23 (PNEUMOVAX) [facility] Influenza High Dose 2020-08-12 Completed [facility] 00:00:00 [facility] Pneumococcal 2020-08-12 Completed [facility] Polysaccharide, 00:00:00 [place] [facility] PPSV23 (PNEUMOVAX) [facility] Influenza High Dose 2020-08-12 Completed [facility] 00:00:00 [facility] Pneumococcal 2020-08-12 Completed [facility] Polysaccharide, 00:00:00 [place] [facility] PPSV23 (PNEUMOVAX) [facility] Influenza High Dose 2020-08-12 Completed [facility] 00:00:00 [facility] Pneumococcal 2020-08-12 Completed [facility] Polysaccharide, 00:00:00 [place] [facility] PPSV23 (PNEUMOVAX) [facility] Influenza High Dose 2020-08-12 Completed [facility] 00:00:00 [facility] Pneumococcal 2020-08-12 Completed [facility] Polysaccharide, 00:00:00 [place] [facility] PPSV23 (PNEUMOVAX) [facility] Influenza High Dose 2020-08-12 Completed [facility] 00:00:00 [facility] Pneumococcal 2020-08-12 Completed [facility] Polysaccharide, 00:00:00 [place] [facility] PPSV23 (PNEUMOVAX) [facility] Influenza High Dose 2020-08-12 Completed [facility] 00:00:00 [facility] Pneumococcal 2020-08-12 Completed [facility] Polysaccharide, 00:00:00 [place] [facility] PPSV23 (PNEUMOVAX) [facility] Influenza High Dose 2020-08-12 Completed [facility] 00:00:00 [facility] Pneumococcal 2020-08-12 Completed [facility] Polysaccharide, 00:00:00 [place] [facility] PPSV23 (PNEUMOVAX) [facility] Influenza High Dose 2020-08-12 Completed [facility] 00:00:00 [facility] Pneumococcal 2020-08-12 Completed [facility] Polysaccharide, 00:00:00 [place] [facility] PPSV23 (PNEUMOVAX) [facility] Influenza High Dose 2020-08-12 Completed [facility] 00:00:00 [facility] Pneumococcal 2020-08-12 Completed [facility] Polysaccharide, 00:00:00 [place] [facility] PPSV23 (PNEUMOVAX) [facility] Influenza High Dose 2020-08-12 Completed [facility] 00:00:00 [facility] Pneumococcal 2020-08-12 Completed [facility] Polysaccharide, 00:00:00 [place] [facility] PPSV23 (PNEUMOVAX) [facility] Influenza High Dose 2020-08-12 Completed [facility] 00:00:00 [facility] Pneumococcal 2020-08-12 Completed [facility] Polysaccharide, 00:00:00 [place] [facility] PPSV23 (PNEUMOVAX) [facility] Influenza High Dose 2020-08-12 Completed [facility] 00:00:00 [facility] [facility] Com[facility], 00:[facility]00 [place] [facility] PPSV23 (PNEUMOVAX) [facility] Influenza High Dose 2020-08-12 Completed [facility]00 [facility] Pneumococcal 2020-08-12 Completed [facility], 00:00:00 [place] [facility] PPSV23 (PNEUMOVAX) [facility] Influenza High Dose 2020-08-12 Completed [facility] 00:00:00 [facility] Pneumococcal 2020-08-12 Completed [facility], 00:00:00 [place] [facility] PPSV23 (PNEUMOVAX) [facility] Influenza High Dose 2020-08-12 Completed [facility] 00:00:00 [facility] Pneumococcal 2020-08-12 Completed [facility], 00:00:00 [place] [facility] PPSV23 (PNEUMOVAX) [facility] Influenza High Dose 2020-08-12 Completed [facility] 00:00:00 [facility] Pneumococcal 2020-08-12 Completed [facility] Pol[facility], 00:00:00 [place] [facility] PPSV23 (PNEUMOVAX) [facility] Influenza High Dose 2020-08-12 Completed [facility] 00:00:00 [facility] Pneumococcal 2020-08-12 Completed [facility] Pol[facility], 00:00:00 [place] [facility] PPSV23 (PNEUMOVAX) [facility] Influenza High Dose 2020-08-12 Completed [facility] 00:00:00 [facility] Pneumococcal 2020-08-12 Completed [facility] Pol[facility], 00:00:00 [place] [facility] PPSV23 (PNEUMOVAX) Branch Influenza High Dose 2020-08-12 Completed [facility] 00:00:00 [facility] Pneumococcal 2020-08-12 Completed [facility] Pol[facility], 00:00:00 [place] [facility] PPSV23 (PNEUMOVAX) [facility] Influenza High Dose 2020-08-12 Completed [facility] 00:00:00 [facility] Pneumococcal 2020-08-12 Completed [facility], 00:00:00 [place] [facility] PPSV23 (PNEUMOVAX) [facility] Influenza High Dose 2020-08-12 Completed [facility] 00:00:00 [facility] Pneumococcal 2020-08-12 Completed [facility], 00:00:00 [place] [facility] PPSV23 (PNEUMOVAX) [facility] Influenza High Dose 2020-08-12 Completed [facility] 00[facility]00:00 [facility] Pneumococcal 2020-08-12 Completed [facility] Pol[facility], 00:00:00 [place] [facility] PPSV23 (PNEUMOVAX) [facility] Influenza High Dose 2020-08-12 Completed [facility] 00:00:00 [facility] Pneumococcal 2020-08-12 Completed [facility], 00:00:00 [place] [facility] PPSV23 (PNEUMOVAX) [facility] Influenza High Dose 2020-08-12 Completed [facility] 00:00:00 [facility] Pneumococcal 2020-08-12 Completed [facility] Pol[facility], 00:00:00 [place] [facility] PPSV23 (PNEUMOVAX) [facility] Influenza High Dose 2020-08-12 Completed [facility] 00:00:00 [facility] Pneumococcal 2020-08-12 Completed [facility] Pol[facility], 00:00:00 [place] [facility] PPSV23 (PNEUMOVAX) Branch Influenza High Dose 2020-08-12 Completed [facility] 00:00:00 [facility] Pneumococcal 2020-08-12 Completed [facility] Pol[facility], 00:00:00 [place] [facility] PPSV23 (PNEUMOVAX) Branch Influenza High Dose 2020-08-12 Completed [facility] 00:00:00 [facility] Pneumococcal 2020-08-12 Completed [facility], 00:00:00 [place] [facility] PPSV23 (PNEUMOVAX) Branch Influenza High Dose 2020-08-12 Completed [facility] 00[facility]00:00 [facility] Pneumococcal 2020-08-12 Completed [facility], 00:00:00 [place] [facility] PPSV23 (PNEUMOVAX) Branch Influenza High Dose 2020-08-12 Completed [facility] 00:00:00 [facility] Pneumococcal 2020-08-12 Completed [facility], 00:00:00 [place] [facility] PPSV23 (PNEUMOVAX) Branch Influenza High Dose 2020-08-12 Completed [facility] 00:00:00 [facility] Pneumococcal 2020-08-12 Completed [facility] Pol[facility], 00:00:00 [place] [facility] PPSV23 (PNEUMOVAX) Branch Influenza High Dose 2020-08-12 Completed [facility] 00:00:00 [facility] Pneumococcal 2020-08-12 Completed [facility] Pol[facility], 00:00:00 [place] [facility] PPSV23 (PNEUMOVAX) Branch Influenza High Dose 2020-08-12 Completed [facility] 00[facility]00:00 [facility] Pneumococcal 2020-08-12 Completed [facility], 00:00:00 [place] [facility] PPSV23 (PNEUMOVAX) Branch Influenza High Dose 2020-08-12 Completed [facility] 00:00:00 [facility] Pneumococcal 2020-08-12 Completed [facility] Pol[facility], 00:00:00 [place] [facility] PPSV23 (PNEUMOVAX) Branch Influenza High Dose 2020-08-12 Completed [facility] 00:00:00 [facility] Pneumococcal 2020-08-12 Completed [facility] Pol[facility], 00:00:00 [place] [facility] PPSV23 (PNEUMOVAX) Branch Influenza High Dose 2020-08-12 Completed [facility] 00:00:00 [facility] Pneumococcal 2020-08-12 Completed [facility], 00:00:00 [place] [facility] PPSV23 (PNEUMOVAX) Branch Influenza High Dose 2020-08-12 Completed [facility] 00:00:00 [facility] Pneumococcal 2020-08-12 Completed [facility] Pol[facility], 00:00:00 [place] [facility] PPSV23 (PNEUMOVAX) Branch Influenza High Dose 2020-08-12 Completed [facility] 00:00:00 [facility] Pneumococcal 2020-08-12 Completed [facility] Pol[facility], 00:00:00 [place] [facility] PPSV23 (PNEUMOVAX) Branch Influenza High Dose 2020-08-12 Completed [facility] 00:00:00 [facility] Pneumococcal 2020-08-12 Completed [facility] Pol[facility], 00:00:00 [place] [facility] PPSV23 (PNEUMOVAX) Branch Influenza High Dose 2020-08-12 Completed [facility] 00:00:00 [facility] Pneumococcal 2020-08-12 Completed [facility] Pol[facility], 00:00:00 [place] [facility] PPSV23 (PNEUMOVAX) Branch Influenza High Dose 2020-08-12 Completed [facility] 00:00:00 [facility] Pneumococcal 2020-08-12 Completed [facility] Pol[facility], 00:00:00 [place] [facility] PPSV23 (PNEUMOVAX) Branch Influenza High Dose 2020-08-12 Completed [facility] 00:00:00 [facility] Pneumococcal 2020-08-12 Completed [facility] Pol[facility], 00:00:00 [place] [facility] PPSV23 (PNEUMOVAX) Branch Influenza High Dose 2020-08-12 Completed [facility] 00:00:00 [facility] Pneumococcal 2020-08-12 Completed [facility] Pol[facility], 00:00:00 [place] [facility] PPSV23 (PNEUMOVAX) Branch Influenza High Dose 2020-08-12 Completed [facility] 00:00:00 [facility] Pneumococcal 2020-08-12 Completed [facility] Pol[facility], 00:00:00 [place] [facility] PPSV23 (PNEUMOVAX) Branch Influenza High Dose 2020-08-12 Completed [facility] 00:00:00 [facility] Pneumococcal 2020-08-12 Completed [facility] Pol[facility], 00:00:00 [place] [facility] PPSV23 (PNEUMOVAX) Branch Influenza High Dose 2020-08-12 Completed [facility] 00:00:00 [facility] Pneumococcal 2020-08-12 Completed [facility] Pol[facility], 00:00:00 [place] [facility] PPSV23 (PNEUMOVAX) Branch Influenza High Dose 2020-08-12 Completed [facility] 00:00:00 [facility] Pneumococcal 2020-08-12 Completed [facility] Pol[facility], 00:00:00 [place] [facility] PPSV23 (PNEUMOVAX) Branch Influenza High Dose 2020-08-12 Completed [facility] 00:00:00 [facility] Pneumococcal 2020-08-12 Completed [facility] Pol[facility], 00:00:00 [place] [facility] PPSV23 (PNEUMOVAX) Branch Influenza High Dose 2020-08-12 Completed [facility] 00:00:00 [facility] Pneumococcal 2020-08-12 Completed [facility] Pol[facility], 00:00:00 [place] [facility] PPSV23 (PNEUMOVAX) Branch Influenza High Dose 2020-08-12 Completed [facility] 00:00:00 [facility] Pneumococcal 2020-08-12 Completed [facility] Pol[facility], 00:00:00 [place] [facility] PPSV23 (PNEUMOVAX) Branch Influenza High Dose 2020-08-12 Completed [facility] 00:00:00 [facility] Pneumococcal 2020-08-12 Completed [facility] Pol[facility], 00:00:00 [place] [facility] PPSV23 (PNEUMOVAX) Branch Influenza High Dose 2020-08-12 Completed [facility] 00[facility]00:00 [facility] Pneumococcal 2020-08-12 Completed [facility] Pol[facility], 00:00:00 [place] [facility] PPSV23 (PNEUMOVAX) Branch Influenza High Dose 2020-08-12 Completed [facility] 00:00:00 [facility] Pneumococcal 2020-08-12 Completed [facility] Pol[facility], 00:00:00 [place] [facility] PPSV23 (PNEUMOVAX) Branch Influenza High Dose 2020-08-12 Completed [facility] 00:00:00 [facility] Pneumococcal 2020-08-12 Completed [facility] Pol[facility]accharide, 00:00:00 [place] [facility] PPSV23 (PNEUMOVAX) Branch Influenza High Dose 2020-08-12 Completed [facility] 00:00:00 [facility] Pneumococcal 2020-08-12 Completed [facility] Pol[facility]accharide, 00:00:00 [place] [facility] PPSV23 (PNEUMOVAX) Branch Influenza High Dose 2020-08-12 Completed [facility] 00:00:00 [facility] Pneumococcal 2020-08-12 Completed [facility] Pol[facility], 00:00:00 [place] [facility] PPSV23 (PNEUMOVAX) Branch Influenza High Dose 2020-08-12 Completed [facility] 00:00:00 [facility] Pneumococcal 2020-08-12 Completed [facility] Pol[facility]accharide, 00:00:00 [place] [facility] PPSV23 (PNEUMOVAX) Branch Influenza High Dose 2020-08-12 Completed [facility] 00:00:00 [facility] Pneumococcal 2020-08-12 Completed [facility] Pol[facility]accharide, 00:00:00 [place] [facility] PPSV23 (PNEUMOVAX) Branch Influenza High Dose 2020-08-12 Completed [facility] 00:00:00 [facility] Pneumococcal 2020-08-12 Completed [facility] Pol[facility]accharide, 00:00:00 [place] [facility] PPSV23 (PNEUMOVAX) Branch Influenza High Dose 2020-08-12 Completed [facility] 00:00:00 [facility] Pneumococcal 2020-08-12 Completed [facility] Pol[facility]accharide, 00:00:00 [place] [facility] PPSV23 (PNEUMOVAX) Branch Influenza High Dose 2020-08-12 Completed [facility] 00:00:00 [facility] Pneumococcal 2020-08-12 Completed [facility] Pol[facility]accharide, 00:00:00 [place] [facility] PPSV23 (PNEUMOVAX) Branch Influenza High Dose 2020-08-12 Completed [facility] 00:00:00 [facility] Pneumococcal 2020-08-12 Completed [facility] Pol[facility], 00:00:00 [place] [facility] PPSV23 (PNEUMOVAX) Branch Influenza High Dose 2020-08-12 Completed [facility] 00:00:00 [facility] Pneumococcal 2020-08-12 Completed [facility] Pol[facility]accharide, 00:00:00 [place] [facility] PPSV23 (PNEUMOVAX) Branch Influenza High Dose 2020-08-12 Completed [facility] 00:00:00 [facility] Pneumococcal 2020-08-12 Completed [facility] Pol[facility], 00:00:00 [place] [facility] PPSV23 (PNEUMOVAX) Branch Influenza High Dose 2020-08-12 Completed [facility] 00:00:00 [facility] Pneumococcal 2020-08-12 Completed [facility] Pol[facility], 00:00:00 [place] [facility] PPSV23 (PNEUMOVAX) Branch Influenza High Dose 2020-08-12 Completed [facility] 00:00:00 [facility] Pneumococcal 2020-08-12 Completed [facility] Pol[facility], 00:00:00 [place] [facility] PPSV23 (PNEUMOVAX) Branch Influenza High Dose 2020-08-12 Completed [facility] 00:00:00 [facility] Pneumococcal 2020-08-12 Completed [facility] Pol[facility]accharide, 00:00:00 [place] [facility] PPSV23 (PNEUMOVAX) Branch Influenza High Dose 2020-08-12 Completed [facility] 00:00:00 [facility] Pneumococcal 2020-08-12 Completed [facility] Pol[facility], 00:00:00 [place] [facility] PPSV23 (PNEUMOVAX) Branch Influenza High Dose 2020-08-12 Completed [facility] 00:00:00 [facility] Pneumococcal 2020-08-12 Completed [facility] Pol[facility]accharide, 00:00:00 [place] [facility] PPSV23 (PNEUMOVAX) Branch Influenza High Dose 2020-08-12 Completed [facility] 00:00:00 [facility] Pneumococcal 2020-08-12 Completed [facility] Pol[facility], 00:00:00 [place] [facility] PPSV23 (PNEUMOVAX) Branch Influenza High Dose 2020-08-12 Completed [facility] 00:00:00 [facility] Pneumococcal 2020-08-12 Completed [facility] Pol[facility], 00:00:00 [place] [facility] PPSV23 (PNEUMOVAX) Branch Influenza High Dose 2020-08-12 Completed [facility] 00:00:00 [facility] Pneumococcal 2020-08-12 Completed [facility] Pol[facility], 00:00:00 [place] [facility] PPSV23 (PNEUMOVAX) Branch Influenza High Dose 2020-08-12 Completed [facility] 00:00:00 [facility] Pneumococcal 2020-08-12 Completed [facility] Pol[facility], 00:00:00 [place] [facility] PPSV23 (PNEUMOVAX) Branch Influenza High Dose 2020-08-12 Completed [facility] 00:00:00 [facility] Pneumococcal 2020-08-12 Completed [facility] Pol[facility], 00:00:00 [place] [facility] PPSV23 (PNEUMOVAX) Branch Influenza High Dose 2020-08-12 Completed [facility] 00:00:00 [facility] Pneumococcal 2020-08-12 Completed [facility] Pol[facility], 00:00:00 [place] [facility] PPSV23 (PNEUMOVAX) Branch Influenza High Dose 2020-08-12 Completed [facility] 00:00:00 [facility] Pneumococcal 2020-08-12 Completed [facility] Pol[facility], 00:00:00 [place] [facility] PPSV23 (PNEUMOVAX) Branch Influenza High Dose 2020-08-12 Completed [facility] 00:00:00 [facility] Pneumococcal 2020-08-12 Completed [facility] Pol[facility], 00:00:00 [place] [facility] PPSV23 (PNEUMOVAX) Branch Influenza High Dose 2020-08-12 Completed [facility] 00:00:00 [facility] Pneumococcal 2020-08-12 Completed [facility] Pol[facility], 00:00:00 [place] [facility] PPSV23 (PNEUMOVAX) Branch Influenza High Dose 2020-08-12 Completed [facility] 00:00:00 [facility] Pneumococcal 2020-08-12 Completed [facility] Pol[facility], 00:00:00 [place] [facility] PPSV23 (PNEUMOVAX) Branch Influenza High Dose 2020-08-12 Completed [facility] 00:00:00 [facility] Pneumococcal 2020-08-12 Completed [facility] Pol[facility], 00:00:00 [place] [facility] PPSV23 (PNEUMOVAX) Branch Influenza High Dose 2020-08-12 Completed [facility] 00:00:00 [facility] Pneumococcal 2020-08-12 Completed [facility] Pol[facility]accharide, 00:00:00 [place] [facility] PPSV23 (PNEUMOVAX) Branch Influenza High Dose 2020-08-12 Completed [facility] 00:00:00 [facility] Pneumococcal 2020-08-12 Completed [facility] Pol[facility], 00:00:00 [place] [facility] PPSV23 (PNEUMOVAX) [facility] Influenza High Dose 2020-08-12 Completed [facility] 00:00:00 [facility] Pneumococcal 2020-08-12 Completed [facility] Pol[facility]accharide, 00:00:00 [place] [facility] PPSV23 (PNEUMOVAX) Branch Influenza High Dose 2020-08-12 Completed [facility] 00:00:00 [facility] Pneumococcal 2020-08-12 Completed [facility] Pol[facility]accharide, 00:00:00 [place] [facility] PPSV23 (PNEUMOVAX) Branch Influenza High Dose 2020-08-12 Completed [facility] 00:00:00 [facility] Pneumococcal 2020-08-12 Completed [facility] Pol[facility]accharide, 00:00:00 [place] [facility] PPSV23 (PNEUMOVAX) Branch Influenza High Dose 2020-08-12 Completed [facility] 00:00:00 [facility] Pneumococcal 2020-08-12 Completed [facility] Polysaccharide, 00:00:00 [place] [facility] PPSV23 (PNEUMOVAX) Branch Influenza High Dose 2020-08-12 Completed [facility] 00:00:00 [facility] Pneumococcal 2020-08-12 Completed [facility] Pol[facility]accharide, 00:00:00 [place] [facility] PPSV23 (PNEUMOVAX) Branch Influenza High Dose 2020-08-12 Completed [facility] 00:00:00 [facility] Pneumococcal 2020-08-12 Completed [facility] Polysaccharide, 00:00:00 [place] [facility] PPSV23 (PNEUMOVAX) Branch Influenza High Dose 2020-08-12 Completed [facility] 00:00:00 [facility] Pneumococcal 2020-08-12 Completed [facility] Pol[facility]accharide, 00:00:00 [place] [facility] PPSV23 (PNEUMOVAX) Branch Influenza High Dose 2020-08-12 Completed [facility] 00:00:00 [facility] Pneumococcal 2020-08-12 Completed [facility] Pol[facility]accharide, 00:00:00 [place] [facility] PPSV23 (PNEUMOVAX) Branch Influenza High Dose 2020-08-12 Completed [facility] 00:00:00 [facility] Pneumococcal 2020-08-12 Completed [facility] Polysaccharide, 00:00:00 [place] [facility] PPSV23 (PNEUMOVAX) Branch Influenza High Dose 2020-08-12 Completed [facility] 00:00:00 [facility] Pneumococcal 2020-08-12 Completed [facility] Polysaccharide, 00:00:00 [place] [facility] PPSV23 (PNEUMOVAX) Branch Influenza High Dose 2020-08-12 Completed [facility] 00:00:00 [facility] Pneumococcal 2020-08-12 Completed [facility] Polysaccharide, 00:00:00 [place] [facility] PPSV23 (PNEUMOVAX) Branch Influenza High Dose 2020-08-12 Completed [facility] 00:00:00 [facility] Pneumococcal 2020-08-12 Completed [facility] Pol[facility]accharide, 00:00:00 [place] [facility] PPSV23 (PNEUMOVAX) Branch Influenza High Dose 2020-08-12 Completed [facility] 00:00:00 [facility] Pneumococcal 2020-08-12 Completed [facility] Polysaccharide, 00:00:00 [place] [facility] PPSV23 (PNEUMOVAX) Branch Influenza High Dose 2020-08-12 Completed [facility] 00:00:00 [facility] Pneumococcal 2020-08-12 Completed [facility] Pol[facility]accharide, 00:00:00 [place] [facility] PPSV23 (PNEUMOVAX) Branch Influenza High Dose 2020-08-12 Completed [facility] 00:00:00 [facility] Pneumococcal 2020-08-12 Completed [facility] Pol[facility]accharide, 00:00:00 [place] [facility] PPSV23 (PNEUMOVAX) Branch Influenza High Dose 2020-08-12 Completed [facility] 00:00:00 [facility] Pneumococcal 2020-08-12 Completed [facility] Pol[facility]accharide, 00:00:00 [place] [facility] PPSV23 (PNEUMOVAX) Branch Influenza High Dose 2020-08-12 Completed [facility] 00:00:00 [facility] Pneumococcal 2020-08-12 Completed [facility] Pol[facility]accharide, 00:00:00 [place] [facility] PPSV23 (PNEUMOVAX) Branch Influenza High Dose 2020-08-12 Completed [facility] 00:00:00 [facility] Pneumococcal 2020-08-12 Completed [facility] Pol[facility]accharide, 00:00:00 [place] [facility] PPSV23 (PNEUMOVAX) [facility] Influenza High Dose 2019-12-10 Completed [facility] 00:00:00 [facility] TDAP 2019-12-10 Completed [facility] 00:00:00 [facility] Influenza High Dose 2019-12-10 Completed [facility] 00:00:00 [facility] TDAP 2019-12-10 Completed [facility] 00:00:00 [facility] Influenza High Dose 2019-12-10 Completed [facility] 00:00:00 [facility] TDAP 2019-12-10 Completed [facility] 00:00:00 [facility] Influenza High Dose 2019-12-10 Completed [facility] 00:00:00 [facility] TDAP 2019-12-10 Completed [facility] 00:00:00 [facility] Influenza High Dose 2019-12-10 Completed [facility] 00:00:00 [facility] TDAP 2019-12-10 Completed [facility] 00:00:00 [facility] Influenza High Dose 2019-12-10 Completed [facility] 00:00:00 [facility] TDAP 2019-12-10 Completed [facility] 00:00:00 [facility] Influenza High Dose 2019-12-10 Completed [facility] 00:00:00 [facility] TDAP 2019-12-10 Completed [facility] 00:00:00 [facility] Influenza High Dose 2019-12-10 Completed [facility] 00:00:00 [facility] TDAP 2019-12-10 Completed [facility] 00:00:00 [facility] Influenza High Dose 2019-12-10 Completed [facility] 00:00:00 [facility] TDAP 2019-12-10 Completed [facility] 00:00:00 [facility] Influenza High Dose 2019-12-10 Completed [facility] 00:00:00 [facility] TDAP 2019-12-10 Completed [facility] 00:00:00 [facility] Influenza High Dose 2019-12-10 Completed [facility] of 00:00:00 [facility] TDAP 2019-12-10 Completed [facility] 00:00:00 [facility] Influenza High Dose 2019-12-10 Completed [facility] 00:00:00 [facility] TDAP 2019-12-10 Completed [facility] 00:00:00 [facility] Influenza High Dose 2019-12-10 Completed [facility] 00:00:00 [facility] TDAP 2019-12-10 Completed [facility] 00:00:00 [facility] Influenza High Dose 2019-12-10 Completed [facility] 00:00:00 [facility] TDAP 2019-12-10 Completed [facility] 00:00:00 [facility] Influenza High Dose 2019-12-10 Completed [facility] 00:00:00 [facility] TDAP 2019-12-10 Completed [facility] 00:00:00 [facility] Influenza High Dose 2019-12-10 Completed [facility] 00:00:00 [facility] TDAP 2019-12-10 Completed [facility] 00:00:00 [facility] Influenza High Dose 2019-12-10 Completed [facility] 00:00:00 [facility] TDAP 2019-12-10 Completed [facility] 00:00:00 [facility] Influenza High Dose 2019-12-10 Completed [facility] 00:00:00 [facility] TDAP 2019-12-10 Completed [facility] 00:00:00 [facility] Influenza High Dose 2019-12-10 Completed [facility] 00:00:00 [facility] TDAP 2019-12-10 Completed [facility] 00:00:00 [facility] Influenza High Dose 2019-12-10 Completed [facility] 00:00:00 [facility] TDAP 2019-12-10 Completed [facility] 00:00:00 [facility] Influenza High Dose 2019-12-10 Completed [facility] 00:00:00 [facility] TDAP 2019-12-10 Completed [facility] 00:00:00 [facility] Influenza High Dose 2019-12-10 Completed [facility] 00:00:00 [facility] TDAP 2019-12-10 Completed [facility] 00:00:00 [facility] Influenza High Dose 2019-12-10 Completed [facility] 00:00:00 [facility] TDAP 2019-12-10 Completed [facility] 00:00:00 [facility] Influenza High Dose 2019-12-10 Completed [facility] 00:00:00 [facility] TDAP 2019-12-10 Completed [facility] 00:00:00 [facility] Influenza High Dose 2019-12-10 Completed [facility] 00:00:00 [facility] TDAP 2019-12-10 Completed [facility] 00:00:00 [facility] Influenza High Dose 2019-12-10 Completed [facility] 00:00:00 [facility] TDAP 2019-12-10 Completed [facility] 00:00:00 [facility] Influenza High Dose 2019-12-10 Completed [facility] 00:00:00 [facility] TDAP 2019-12-10 Completed [facility] 00:00:00 [facility] Influenza High Dose 2019-12-10 Completed [facility] 00:00:00 [facility] TDAP 2019-12-10 Completed [facility] 00:00:00 [facility] Influenza High Dose 2019-12-10 Completed [facility] 00:00:00 [facility] TDAP 2019-12-10 Completed [facility] 00:00:00 [facility] Influenza High Dose 2019-12-10 Completed [facility] 00:00:00 [facility] TDAP 2019-12-10 Completed [facility] 00:00:00 [facility] Influenza High Dose 2019-12-10 Completed [facility] 00:00:00 [facility] TDAP 2019-12-10 Completed [facility] 00:00:00 [facility] Influenza High Dose 2019-12-10 Completed [facility] 00:00:00 [facility] TDAP 2019-12-10 Completed [facility] 00:00:00 [facility] Influenza High Dose 2019-12-10 Completed [facility] 00:00:00 [facility] TDAP 2019-12-10 Completed [facility] 00:00:00 [facility] Influenza High Dose 2019-12-10 Completed [facility] 00:00:00 [facility] TDAP 2019-12-10 Completed [facility] 00:00:00 [facility] Influenza High Dose 2019-12-10 Completed [facility] 00:00:00 [facility] TDAP 2019-12-10 Completed [facility]00 [facility] Influenza High Dose 2019-12-10 Completed [facility] 00:00:00 [facility] TDAP 2019-12-10 Completed [facility] 00:00:00 [facility] Influenza High Dose 2019-12-10 Completed [facility] 00:00:00 [facility] TDAP 2019-12-10 Completed [facility] 00:00:00 [facility] Influenza High Dose 2019-12-10 Completed [facility] 00:00:00 [facility] TDAP 2019-12-10 Completed [facility] 00:00:00 [facility] Influenza High Dose 2019-12-10 Completed [facility] 00:00:00 [facility] TDAP 2019-12-10 Completed [facility] 00:00:00 [facility] Influenza High Dose 2019-12-10 Completed [facility] 00:00:00 [facility] TDAP 2019-12-10 Completed [facility] 00:00:00 [facility] Influenza High Dose 2019-12-10 Completed [facility] 00:00:00 [facility] TDAP 2019-12-10 Completed [facility] 00:00:00 [facility] Influenza High Dose 2019-12-10 Completed [facility] 00:00:00 [facility] TDAP 2019-12-10 Completed [facility] 00:00:00 [facility] Influenza High Dose 2019-12-10 Completed [facility] 00:00:00 [facility] TDAP 2019-12-10 Completed [facility] 00:00:00 [facility] Influenza High Dose 2019-12-10 Completed [facility] 00:00:00 [facility] TDAP 2019-12-10 Completed [facility] 00:00:00 [facility] Influenza High Dose 2019-12-10 Completed [facility] 00:00:00 [facility] TDAP 2019-12-10 Completed [facility] 00:00:00 [facility] Influenza High Dose 2019-12-10 Completed [facility] 00:00:00 [facility] TDAP 2019-12-10 Completed [facility] 00:00:00 [facility] Influenza High Dose 2019-12-10 Completed [facility] 00:00:00 [facility] TDAP 2019-12-10 Completed [facility] 00:00:00 [facility] Influenza High Dose 2019-12-10 Completed [facility] 00:00:00 [facility] TDAP 2019-12-10 Completed [facility] 00:00:00 [facility] Influenza High Dose 2019-12-10 Completed [facility] 00:00:00 [facility] TDAP 2019-12-10 Completed [facility] 00:00:00 [facility] Influenza High Dose 2019-12-10 Completed [facility] 00:00:00 [facility] TDAP 2019-12-10 Completed [facility] 00:00:00 [facility] Influenza High Dose 2019-12-10 Completed [facility] 00:00:00 [facility] TDAP 2019-12-10 Completed [facility] 00:00:00 [facility] Influenza High Dose 2019-12-10 Completed [facility] 00:00:00 [facility] TDAP 2019-12-10 Completed [facility] 00:00:00 [facility] Influenza High Dose 2019-12-10 Completed [facility] 00:00:00 [facility] TDAP 2019-12-10 Completed [facility] 00:00:00 [facility] Influenza High Dose 2019-12-10 Completed [facility] 00:00:00 [facility] TDAP 2019-12-10 Completed [facility] 00:00:00 [facility] Influenza High Dose 2019-12-10 Completed [facility] 00:00:00 [facility] TDAP 2019-12-10 Completed [facility] 00:00:00 [facility] Influenza High Dose 2019-12-10 Completed [facility] 00:00:00 [facility] TDAP 2019-12-10 Completed [facility] 00:00:00 [facility] Influenza High Dose 2019-12-10 Completed [facility] 00:00:00 [facility] TDAP 2019-12-10 Completed [facility] 00:00:00 [facility] Influenza High Dose 2019-12-10 Completed [facility] 00:00:00 [facility] TDAP 2019-12-10 Completed [facility] 00:00:00 [facility] Influenza High Dose 2019-12-10 Completed [facility] 00:00:00 [facility] TDAP 2019-12-10 Completed [facility] 00:00:00 [facility] Influenza High Dose 2019-12-10 Completed [facility] 00:00:00 [facility] TDAP 2019-12-10 Completed [facility] 00:00:00 [facility] Influenza High Dose 2019-12-10 Completed [facility] 00:00:00 [facility] TDAP 2019-12-10 Completed [facility] 00:00:00 [facility] Influenza High Dose 2019-12-10 Completed [facility] 00:00:00 [facility] TDAP 2019-12-10 Completed [facility] 00:00:00 [facility] Influenza High Dose 2019-12-10 Completed [facility] 00:00:00 [facility] TDAP 2019-12-10 Completed [facility] 00:00:00 [facility] Influenza High Dose 2019-12-10 Completed [facility] 00:00:00 [facility] TDAP 2019-12-10 Completed [facility] 00:00:00 [facility] Influenza High Dose 2019-12-10 Completed [facility] 00:00:00 [facility] TDAP 2019-12-10 Completed [facility] 00:00:00 [facility] Influenza High Dose 2019-12-10 Completed [facility] 00:00:00 [facility] TDAP 2019-12-10 Completed [facility] 00:00:00 [facility] Influenza High Dose 2019-12-10 Completed [facility] 00:00:00 [facility] TDAP 2019-12-10 Completed [facility] 00:00:00 [facility] Influenza High Dose 2019-12-10 Completed [facility] 00:00:00 [facility] TDAP 2019-12-10 Completed [facility] 00:00:00 [facility] Influenza High Dose 2019-12-10 Completed [facility] 00:00:00 [facility] TDAP 2019-12-10 Completed [facility] 00:00:00 [facility] Influenza High Dose 2019-12-10 Completed [facility] 00:00:00 [facility] TDAP 2019-12-10 Completed [facility] 00:00:00 [facility] Influenza High Dose 2019-12-10 Completed [facility] 00:00:00 [facility] TDAP 2019-12-10 Completed [facility] 00:00:00 [facility] Influenza High Dose 2019-12-10 Completed [facility] 00:00:00 [facility] TDAP 2019-12-10 Completed [facility] 00:00:00 [facility] Influenza High Dose 2019-12-10 Completed [facility] 00:00:00 [facility] TDAP 2019-12-10 Completed [facility] 00:00:00 [facility] Influenza High Dose 2019-12-10 Completed [facility] 00:00:00 [facility] TDAP 2019-12-10 Completed [facility] 00:00:00 [facility] Influenza High Dose 2019-12-10 Completed [facility] 00:00:00 [facility] TDAP 2019-12-10 Completed [facility] 00:00:00 [facility] Influenza High Dose 2019-12-10 Completed [facility] 00:00:00 [facility] TDAP 2019-12-10 Completed [facility] 00:00:00 [facility] Influenza High Dose 2019-12-10 Completed [facility] 00:00:00 [facility] TDAP 2019-12-10 Completed [facility] 00:00:00 [facility] Influenza High Dose 2019-12-10 Completed [facility] 00:00:00 [facility] TDAP 2019-12-10 Completed [facility] 00:00:00 [facility] Influenza High Dose 2019-12-10 Completed [facility] 00:00:00 [facility] TDAP 2019-12-10 Completed [facility] 00:00:00 [facility] Influenza High Dose 2019-12-10 Completed [facility] 00:00:00 [facility] TDAP 2019-12-10 Completed [facility] 00:00:00 [facility] Influenza High Dose 2019-12-10 Completed [facility] 00:00:00 [facility] TDAP 2019-12-10 Completed [facility] 00:00:00 [facility] Influenza High Dose 2019-12-10 Completed [facility] 00:00:00 [facility] TDAP 2019-12-10 Completed [facility] 00:00:00 [facility] Influenza High Dose 2019-12-10 Completed [facility] 00:00:00 [facility] TDAP 2019-12-10 Completed [facility] 00:00:00 [facility] Influenza High Dose 2019-12-10 Completed [facility] 00:00:00 [facility] TDAP 2019-12-10 Completed [facility] 00:00:00 [facility] Influenza High Dose 2019-12-10 Completed [facility] 00:00:00 [facility] TDAP 2019-12-10 Completed [facility] 00:00:00 [facility] Influenza High Dose 2019-12-10 Completed [facility] 00:00:00 [facility] TDAP 2019-12-10 Completed [facility] 00:00:00 [facility] Influenza High Dose 2019-12-10 Completed [facility] 00:00:00 [facility] TDAP 2019-12-10 Completed [facility] 00:00:00 [facility] Influenza High Dose 2019-12-10 Completed [facility] 00:00:00 [facility] TDAP 2019-12-10 Completed [facility] 00:00:00 [facility] Influenza High Dose 2019-12-10 Completed [facility] 00:00:00 [facility] TDAP 2019-12-10 Completed [facility] 00:00:00 [facility] Influenza High Dose 2019-12-10 Completed [facility] 00:00:00 [facility] TDAP 2019-12-10 Completed [facility] 00:00:00 [facility] Influenza High Dose 2019-12-10 Completed [facility] 00:00:00 [facility] TDAP 2019-12-10 Completed [facility] 00:00:00 [facility] Influenza High Dose 2019-12-10 Completed [facility] 00:00:00 [facility] TDAP 2019-12-10 Completed [facility] 00:00:00 [facility] Influenza High Dose 2019-12-10 Completed [facility] 00:00:00 [facility] TDAP 2019-12-10 Completed [facility] 00:00:00 [facility] Influenza High Dose 2019-12-10 Completed [facility] 00:00:00 [facility] TDAP 2019-12-10 Completed [facility] 00:00:00 [facility] Influenza High Dose 2019-12-10 Completed [facility] 00:00:00 [facility] TDAP 2019-12-10 Completed [facility] 00:00:00 [facility] Influenza High Dose 2019-12-10 Completed [facility] 00:00:00 [facility] TDAP 2019-12-10 Completed [facility] 00:00:00 [facility] Influenza High Dose 2019-12-10 Completed [facility] 00:00:00 [facility] TDAP 2019-12-10 Completed [facility] 00:00:00 [facility] Influenza High Dose 2019-12-10 Completed [facility] 00:00:00 [facility] TDAP 2019-12-10 Completed [facility] 00:00:00 [facility] Influenza High Dose 2019-12-10 Completed [facility] 00:00:00 [facility] TDAP 2019-12-10 Completed [facility] 00:00:00 [facility] Influenza High Dose 2019-12-10 Completed [facility] 00:00:00 [facility] TDAP 2019-12-10 Completed [facility] 00:00:00 [facility] Influenza High Dose 2019-12-10 Completed [facility] 00:00:00 [facility] TDAP 2019-12-10 Completed [facility] 00:00:00 [facility] Influenza High Dose 2019-12-10 Completed [facility] 00:00:00 [facility] TDAP 2019-12-10 Completed [facility] 00:00:00 [facility] Influenza High Dose 2019-12-10 Completed [facility] 00:00:00 [facility] TDAP 2019-12-10 Completed [facility] 00:00:00 [facility] Influenza High Dose 2019-12-10 Completed [facility] 00:00:00 [facility] TDAP 2019-12-10 Completed [facility] 00:00:00 [facility] Influenza High Dose 2019-12-10 Completed [facility] 00:00:00 [facility] TDAP 2019-12-10 Completed [facility] 00:00:00 [facility] Influenza High Dose 2019-12-10 Completed [facility] 00:00:00 [facility] TDAP 2019-12-10 Completed [facility] 00:00:00 [facility] Influenza High Dose 2019-12-10 Completed [facility] 00:00:00 [facility] TDAP 2019-12-10 Completed [facility] 00:00:00 [facility] Influenza High Dose 2019-12-10 Completed [facility] 00:00:00 [facility] TDAP 2019-12-10 Completed [facility] 00:00:00 [facility] Influenza High Dose 2019-12-10 Completed [facility] 00:00:00 [facility] TDAP 2019-12-10 Completed [facility] 00:00:00 [facility] Influenza High Dose 2019-12-10 Completed [facility] 00:00:00 [facility] TDAP 2019-12-10 Completed [facility] 00:00:00 [facility] Influenza High Dose 2019-12-10 Completed [facility] 00:00:00 [facility] TDAP 2019-12-10 Completed [facility] 00:00:00 [facility] Influenza High Dose 2019-12-10 Completed [facility] 00:00:00 [facility] TDAP 2019-12-10 Completed [facility] 00:00:00 [facility] Influenza High Dose 2019-12-10 Completed [facility] 00:00:00 [facility] TDAP 2019-12-10 Completed [facility] 00:00:00 [facility] Influenza High Dose 2019-12-10 Completed [facility] 00:00:00 [facility] TDAP 2019-12-10 Completed [facility] 00:00:00 [facility] Influenza High Dose 2019-12-10 Completed [facility] 00:00:00 [facility] TDAP 2019-12-10 Completed [facility] 00:00:00 [facility] Influenza High Dose 2019-12-10 Completed [facility] 00:00:00 [facility] TDAP 2019-12-10 Completed [facility] 00:00:00 [facility] Influenza High Dose 2019-12-10 Completed [facility] 00:00:00 [facility] TDAP 2019-12-10 Completed [facility] 00:00:00 [facility] Influenza High Dose 2019-12-10 Completed [facility] 00:00:00 [facility] TDAP 2019-12-10 Completed [facility] 00:00:00 [facility] Influenza High Dose 2019-12-10 Completed [facility] 00:00:00 [facility] TDAP 2019-12-10 Completed [facility] 00:00:00 [facility] Influenza High Dose 2019-12-10 Completed [facility] 00:00:00 [facility] TDAP 2019-12-10 Completed [facility] 00:00:00 [facility] Influenza High Dose 2019-12-10 Completed [facility] 00:00:00 [facility] TDAP 2019-12-10 Completed [facility] 00:00:00 [facility] Influenza High Dose 2019-12-10 Completed [facility] 00:00:00 [facility] TDAP 2019-12-10 Completed [facility] 00:00:00 [facility] Influenza High Dose 2019-12-10 Completed [facility] 00:00:00 [facility] TDAP 2019-12-10 Completed [facility] 00:00:00 [facility] Influenza High Dose 2019-12-10 Completed [facility] 00:00:00 [facility] TDAP 2019-12-10 Completed [facility] 00:00:00 [facility] Influenza High Dose 2019-12-10 Completed [facility] 00:00:00 [facility] TDAP 2019-12-10 Completed [facility] 00:00:00 [facility] Influenza High Dose 2019-12-10 Completed [facility] 00:00:00 [facility] TDAP 2019-12-10 Completed [facility] 00:00:00 [facility] Influenza High Dose 2019-12-10 Completed [facility] 00:00:00 [facility] TDAP 2019-12-10 Completed [facility] 00:00:00 [facility] Influenza High Dose 2019-12-10 Completed [facility] 00:00:00 [facility] TDAP 2019-12-10 Completed [facility] 00:00:00 [facility] Influenza High Dose 2019-12-10 Completed [facility] 00:00:00 [facility] TDAP 2019-12-10 Completed [facility] 00:00:00 [facility] Influenza High Dose 2019-12-10 Completed [facility] 00:00:00 [facility] TDAP 2019-12-10 Completed [facility] 00:00:00 [facility] Influenza High Dose 2019-12-10 Completed [facility] 00:00:00 [facility] TDAP 2019-12-10 Completed [facility] 00:00:00 [facility] Influenza High Dose 2019-12-10 Completed [facility] 00:00:00 [facility] TDAP 2019-12-10 Completed [facility] 00:00:00 [facility] Influenza High Dose 2019-12-10 Completed [facility] 00:00:00 [facility] TDAP 2019-12-10 Completed [facility] 00:00:00 [facility] Influenza High Dose 2019-12-10 Completed [facility] 00:00:00 [facility] TDAP 2019-12-10 Completed [facility] 00:00:00 [facility] Influenza High Dose 2019-12-10 Completed [facility] 00:00:00 [facility] TDAP 2019-12-10 Completed [facility] 00:00:00 [facility] Influenza High Dose 2019-12-10 Completed [facility] 00:00:00 [facility] TDAP 2019-12-10 Completed [facility] 00:00:00 [facility] Influenza High Dose 2019-12-10 Completed [facility] 00:00:00 [facility] TDAP 2019-12-10 Completed [facility] 00:00:00 [facility] Influenza High Dose 2019-12-10 Completed [facility] 00:00:00 [facility] TDAP 2019-12-10 Completed [facility] 00:00:00 [facility] Influenza High Dose 2019-12-10 Completed [facility] 00:00:00 [facility] TDAP 2019-12-10 Completed [facility] 00:00:00 [facility] Influenza High Dose 2019-12-10 Completed [facility] 00:00:00 [facility] TDAP 2019-12-10 Completed [facility] 00:00:00 [facility] Influenza High Dose 2019-12-10 Completed [facility] 00:00:00 [facility] TDAP 2019-12-10 Completed [facility] 00:00:00 [facility] Influenza High Dose 2019-12-10 Completed [facility] 00:00:00 [facility] TDAP 2019-12-10 Completed [facility] 00:00:00 [facility] Influenza High Dose 2019-12-10 Completed [facility] 00:00:00 [facility] TDAP 2019-12-10 Completed [facility] 00:00:00 [facility] Influenza High Dose 2018-08-07 Completed [facility] 00:00:00 [facility] Influenza High Dose 2018-08-07 Completed [facility] 00:00:00 [facility] Influenza High Dose 2018-08-07 Completed [facility] 00:00:00 [facility] Influenza High Dose 2018-08-07 Completed [facility] 00:00:[address] [facility] Influenza High Dose 2018-08-07 Completed [facility] 00:00:[address] [facility] Influenza High Dose 2018-08-07 Completed [facility] 00:00:00 [facility] Influenza High Dose 2018-08-07 Completed [facility] 00[facility]00:[address] [facility] Influenza High Dose 2018-08-07 Completed [facility] 00:00:[address] [facility] Influenza High Dose 2018-08-07 Completed [facility] 00:00:00 [facility] Influenza High Dose 2018-08-07 Completed [facility] 00:00:00 [facility] Influenza High Dose 2018-08-07 Completed [facility] 00:00:00 [facility] Influenza High Dose 2018-08-07 Completed [facility] 00:00:00 [facility] Influenza High Dose 2018-08-07 Completed [facility] 00:00:00 [facility] Influenza High Dose 2018-08-07 Completed [facility] 00:00:00 [facility] Influenza High Dose 2018-08-07 Completed [facility] 00:00:00 [facility] Influenza High Dose 2018-08-07 Completed [facility] 00:00:00 [facility] Influenza High Dose 2018-08-07 Completed [facility] 00:00:00 [facility] Influenza High Dose 2018-08-07 Completed [facility] 00:00:00 [facility] Influenza High Dose 2018-08-07 Completed [facility] 00:00:00 [facility] Influenza High Dose 2018-08-07 Completed [facility] 00:00:00 [facility] Influenza High Dose 2018-08-07 Completed [facility] 00:00:00 [facility] Influenza High Dose 2018-08-07 Completed [facility] 00:00:[address] [facility] Influenza High Dose 2018-08-07 Completed [facility] 00:00:00 [facility] Influenza High Dose 2018-08-07 Completed [facility] 00:00:00 [facility] Influenza High Dose 2018-08-07 Completed [facility] 00:00:00 [facility] Influenza High Dose 2018-08-07 Completed [facility] 00:00:[address] [facility] Influenza High Dose 2018-08-07 Completed [facility] 00:00:[address] [facility] Influenza High Dose 2018-08-07 Completed [facility] 00:00:00 [facility] Influenza High Dose 2018-08-07 Completed [facility] 00:00:[address] [facility] Influenza High Dose 2018-08-07 Completed [facility] 00:00:[address] [facility] Influenza High Dose 2018-08-07 Completed [facility] 00:00:[address] [facility] Influenza High Dose 2018-08-07 Completed [facility] 00:00:00 [facility] Influenza High Dose 2018-08-07 Completed [facility] 00[facility]00:[address] [facility] Influenza High Dose 2018-08-07 Completed [facility] 00:00:00 [facility] Influenza High Dose 2018-08-07 Completed [facility] 00:00:00 [facility] Influenza High Dose 2018-08-07 Completed [facility] 00:00:[address] [facility] Influenza High Dose 2018-08-07 Completed [facility] 00:00:00 [facility] Influenza High Dose 2018-08-07 Completed [facility] 00[facility]00:[address] [facility] Influenza High Dose 2018-08-07 Completed [facility] 00:00:[address] [facility] Influenza High Dose 2018-08-07 Completed [facility] 00:00:00 [facility] Influenza High Dose 2018-08-07 Completed [facility] 00:00:[address] [facility] Influenza High Dose 2018-08-07 Completed [facility] 00:00:[address] [facility] Influenza High Dose 2018-08-07 Completed [facility] 00:00:[address] [facility] Influenza High Dose 2018-08-07 Completed [facility] 00:00:[address] [facility] Influenza High Dose 2018-08-07 Completed [facility] 00:00:[address] [facility] Influenza High Dose 2018-08-07 Completed [facility] 00:00:00 [facility] Influenza High Dose 2018-08-07 Completed [facility] 00:00:[address] [facility] Influenza High Dose 2018-08-07 Completed [facility] 00:00:00 [facility] Influenza High Dose 2018-08-07 Completed [facility] 00:00:00 [facility] Influenza High Dose 2018-08-07 Completed [facility] 00:00:00 [facility] Influenza High Dose 2018-08-07 Completed [facility] 00:00:00 [facility] Influenza High Dose 2018-08-07 Completed [facility] 00:00:00 [facility] Influenza High Dose 2018-08-07 Completed [facility] 00:00:00 [facility] Influenza High Dose 2018-08-07 Completed [facility] 00:00:00 [facility] Influenza High Dose 2018-08-07 Completed [facility] 00:00:00 [facility] Influenza High Dose 2018-08-07 Completed [facility] 00:00:00 [facility] Influenza High Dose 2018-08-07 Completed [facility] 00:00:00 [facility] Influenza High Dose 2018-08-07 Completed [facility] 00:00:00 [facility] Influenza High Dose 2018-08-07 Completed [facility] 00:00:00 [facility] Influenza High Dose 2018-08-07 Completed [facility] 00:00:00 [facility] Influenza High Dose 2018-08-07 Completed [facility] 00:00:00 [facility] Influenza High Dose 2018-08-07 Completed [facility] 00:00:00 [facility] Influenza High Dose 2018-08-07 Completed [facility] 00:00:00 [facility] Influenza High Dose 2018-08-07 Completed [facility] 00:00:00 [facility] Influenza High Dose 2018-08-07 Completed [facility] 00:00:00 [facility] Influenza High Dose 2018-08-07 Completed [facility] 00:00:00 [facility] Influenza High Dose 2018-08-07 Completed [facility] 00:00:00 [facility] Influenza High Dose 2018-08-07 Completed [facility] 00:00:00 [facility] Influenza High Dose 2018-08-07 Completed [facility] 00:00:00 [facility] Influenza High Dose 2018-08-07 Completed [facility] 00:00:00 [facility] Influenza High Dose 2018-08-07 Completed [facility] 00:00:00 [facility] Influenza High Dose 2018-08-07 Completed [facility] 00:00:00 [facility] Influenza High Dose 2018-08-07 Completed [facility] 00:00:00 [facility] Influenza High Dose 2018-08-07 Completed [facility] 00:00:00 [facility] Influenza High Dose 2018-08-07 Completed [facility] 00:00:00 [facility] Influenza High Dose 2018-08-07 Completed [facility] 00:00:00 [facility] Influenza High Dose 2018-08-07 Completed [facility] 00:00:00 [facility] Influenza High Dose 2018-08-07 Completed [facility] 00:00:00 [facility] Influenza High Dose 2018-08-07 Completed [facility] 00:00:00 [facility] Influenza High Dose 2018-08-07 Completed [facility] 00:00:00 [facility] Influenza High Dose 2018-08-07 Completed [facility] 00:00:00 [facility] Influenza High Dose 2018-08-07 Completed [facility] 00:00:00 [facility] Influenza High Dose 2018-08-07 Completed [facility] 00:00:00 [facility] Influenza High Dose 2018-08-07 Completed [facility] 00:00:00 [facility] Influenza High Dose 2018-08-07 Completed [facility] 00:00:00 [facility] Influenza High Dose 2018-08-07 Completed [facility] 00:00:00 [facility] Influenza High Dose 2018-08-07 Completed [facility] 00:00:00 [facility] Influenza High Dose 2018-08-07 Completed [facility] 00:00:00 [facility] Influenza High Dose 2018-08-07 Completed [facility] 00:00:00 [facility] Influenza High Dose 2018-08-07 Completed [facility] 00:00:00 [facility] Influenza High Dose 2018-08-07 Completed [facility] 00:00:00 [facility] Influenza High Dose 2018-08-07 Completed [facility] 00:00:00 [facility] Influenza High Dose 2018-08-07 Completed [facility] 00:00:00 [facility] Influenza High Dose 2018-08-07 Completed [facility] 00:00:00 [facility] Influenza High Dose 2018-08-07 Completed [facility] 00:00:00 [facility] Influenza High Dose 2018-08-07 Completed [facility] 00:00:00 [facility] Influenza High Dose 2018-08-07 Completed [facility] 00:00:[address] [facility] [place] [facility] Influenza High Dose 2018-08-07 Completed [facility] 00:00:[address] [facility] [place] [facility] Influenza High Dose 2018-08-07 Completed [facility] 00:00:00 [facility] Influenza High Dose 2018-08-07 Completed [facility] 00:00:[address] [facility] [facility] Influenza High Dose 2018-08-07 Completed [facility] 00:00:[address] [facility] [place] [facility] Influenza High Dose 2018-08-07 Completed [facility] 00:00:[address] [facility] [facility] Influenza High Dose 2018-08-07 Completed [facility] 00:00:00 [facility] Influenza High Dose 2018-08-07 Completed [facility] 00:00:[address] [facility] [facility] Influenza High Dose 2018-08-07 Completed [facility] 00:00:[address] [facility] [place] [facility] Influenza High Dose 2018-08-07 Completed [facility] 00:00:[address] [facility] [facility] Influenza High Dose 2018-08-07 Completed [facility] 00:00:[address] [facility] [facility] Influenza High Dose 2018-08-07 Completed [facility] 00:00:[address] [facility] [place] [facility] Influenza High Dose 2018-08-07 Completed [facility] 00:00:[address] [facility] [place] [facility] Influenza High Dose 2018-08-07 Completed [facility] 00:00:00 [facility] Influenza High Dose 2018-08-07 Completed [facility] 00:00:[address] [facility] [place] [facility] Influenza High Dose 2018-08-07 Completed [facility] 00:00:00 [facility] Influenza High Dose 2018-08-07 Completed [facility] 00:00:00 [facility] Influenza High Dose 2018-08-07 Completed [facility] 00:00:[address] [facility] [facility] Influenza High Dose 2018-08-07 Completed [facility] 00:00:00 [facility] Influenza High Dose 2018-08-07 Completed [facility] 00:00:00 [facility] Influenza High Dose 2018-08-07 Completed [facility] 00:00:00 [facility] Influenza High Dose 2018-08-07 Completed [facility] of 00:00:[address] [facility] [place] [facility] Influenza High Dose 2018-08-07 Completed [facility] 00:00:00 [facility] Influenza High Dose 2018-08-07 Completed [facility] 00:00:00 [facility] Influenza High Dose 2018-08-07 Completed [facility] 00:00:[address] [facility] [place] [facility] Influenza High Dose 2018-08-07 Completed [facility] 00:00:00 [facility] Influenza High Dose 2018-08-07 Completed [facility] 00:00:00 [facility] Influenza High Dose 2018-08-07 Completed [facility] 00:00:00 [facility] Influenza High Dose 2018-08-07 Completed [facility] 00:00:00 [facility] Influenza High Dose 2018-08-07 Completed [facility] 00:00:00 [facility] Influenza High Dose 2018-08-07 Completed [facility] 00:00:00 [facility] Influenza High Dose 2018-08-07 Completed [facility] 00:00:00 [facility] Influenza High Dose 2018-08-07 Completed [facility] 00:00:00 [facility] Influenza High Dose 2018-08-07 Completed [facility] 00:00:00 [facility] Influenza High Dose 2018-08-07 Completed [facility] 00:00:00 [facility] Influenza High Dose 2018-08-07 Completed [facility] 00:00:00 [facility] Influenza High Dose 2018-08-07 Completed [facility] 00:00:00 [facility] Influenza High Dose 2018-08-07 Completed [facility] 00:00:00 [facility] Influenza High Dose 2018-08-07 Completed [facility] 00:00:00 [facility] Influenza High Dose 2018-08-07 Completed [facility] 00:00:00 [facility] Influenza High Dose 2018-08-07 Completed [facility] 00:00:00 [facility] Influenza High Dose 2018-08-07 Completed [facility] 00:00:00 [facility] Influenza High Dose 2018-08-07 Completed [facility] 00:00:00 [facility] Influenza High Dose 2018-08-07 Completed [facility] 00:00:00 [facility] Influenza High Dose 2018-08-07 Completed [facility] 00:00:00 [facility] Influenza High Dose 2018-08-07 Completed [facility] 00:00:00 [facility] Influenza High Dose 2018-08-07 Completed [facility] 00:00:00 [facility] Influenza High Dose 2017-08-16 Completed [facility] 00:00:00 [facility] Influenza High Dose 2017-08-16 Completed [facility] 00:00:00 [facility] Influenza High Dose 2017-08-16 Completed [facility] 00:00:00 [facility] Influenza High Dose 2017-08-16 Completed [facility] 00:00:00 [facility] Influenza High Dose 2017-08-16 Completed [facility] 00:00:00 [facility] Influenza High Dose 2017-08-16 Completed [facility] 00:00:00 [facility] Influenza High Dose 2017-08-16 Completed [facility] 00:00:00 [facility] Influenza High Dose 2017-08-16 Completed [facility] 00:00:00 [facility] Influenza High Dose 2017-08-16 Completed [facility] 00:00:00 [facility] Influenza High Dose 2017-08-16 Completed [facility] 00:00:00 [facility] Influenza High Dose 2017-08-16 Completed [facility] 00:00:00 [facility] Influenza High Dose 2017-08-16 Completed [facility] 00:00:00 [facility] Influenza High Dose 2017-08-16 Completed [facility] 00:00:00 [facility] Influenza High Dose 2017-08-16 Completed [facility] 00:00:00 [facility] Influenza High Dose 2017-08-16 Completed [facility] 00:00:00 [facility] Influenza High Dose 2017-08-16 Completed [facility] 00:00:00 [facility] Influenza High Dose 2017-08-16 Completed [facility] 00:00:00 [facility] Influenza High Dose 2017-08-16 Completed [facility] 00:00:00 [facility] Influenza High Dose 2017-08-16 Completed [facility] 00:00:00 [facility] Influenza High Dose 2017-08-16 Completed [facility] 00:00:00 [facility] Influenza High Dose 2017-08-16 Completed [facility] 00:00:00 [facility] Influenza High Dose 2017-08-16 Completed [facility] 00:00:00 [facility] Influenza High Dose 2017-08-16 Completed [facility] 00:00:00 [facility] Influenza High Dose 2017-08-16 Completed [facility] 00:00:00 [facility] Influenza High Dose 2017-08-16 Completed [facility] 00:00:00 [facility] Influenza High Dose 2017-08-16 Completed [facility] 00:00:00 [facility] Influenza High Dose 2017-08-16 Completed [facility] 00:00:00 [facility] Influenza High Dose 2017-08-16 Completed [facility] 00:00:00 [facility] Influenza High Dose 2017-08-16 Completed [facility] 00:00:00 [facility] Influenza High Dose 2017-08-16 Completed [facility] 00:00:00 [facility] Influenza High Dose 2017-08-16 Completed [facility] 00:00:00 [facility] Influenza High Dose 2017-08-16 Completed [facility] 00:00:00 [facility] Influenza High Dose 2017-08-16 Completed [facility] 00:00:00 [facility] Influenza High Dose 2017-08-16 Completed [facility] 00:00:00 [facility] Influenza High Dose 2017-08-16 Completed [facility] 00:00:00 [facility] Influenza High Dose 2017-08-16 Completed [facility] 00:00:00 [facility] Influenza High Dose 2017-08-16 Completed [facility] 00:00:00 [facility] Influenza High Dose 2017-08-16 Completed [facility] 00:00:00 [facility] Influenza High Dose 2017-08-16 Completed [facility] 00:00:00 [facility] Influenza High Dose 2017-08-16 Completed [facility] 00:00:00 [facility] Influenza High Dose 2017-08-16 Completed [facility] 00:00:00 [facility] Influenza High Dose 2017-08-16 Completed [facility] 00:00:00 [facility] Influenza High Dose 2017-08-16 Completed [facility] 00:00:[address] [facility] [place] [facility] Influenza High Dose 2017-08-16 Completed [facility] 00:00:[address] [facility] [place] [facility] Influenza High Dose 2017-08-16 Completed [facility] 00:00:00 [facility] Influenza High Dose 2017-08-16 Completed [facility] 00:00:00 [facility] Influenza High Dose 2017-08-16 Completed [facility] 00:00:00 [facility] Influenza High Dose 2017-08-16 Completed [facility] 00:00:00 [facility] Influenza High Dose 2017-08-16 Completed [facility] 00:00:00 [facility] Influenza High Dose 2017-08-16 Completed [facility] 00:00:00 [facility] Influenza High Dose 2017-08-16 Completed [facility] 00:00:00 [facility] Influenza High Dose 2017-08-16 Completed [facility] 00:00:00 [facility] Influenza High Dose 2017-08-16 Completed [facility] 00:00:00 [facility] Influenza High Dose 2017-08-16 Completed [facility] 00:00:00 [facility] Influenza High Dose 2017-08-16 Completed [facility] 00:00:00 [facility] Influenza High Dose 2017-08-16 Completed [facility] 00:00:00 [facility] Influenza High Dose 2017-08-16 Completed [facility] 00:00:00 [facility] Influenza High Dose 2017-08-16 Completed [facility] 00:00:00 [facility] Influenza High Dose 2017-08-16 Completed [facility] 00:00:00 [facility] Influenza High Dose 2017-08-16 Completed [facility] 00:00:00 [facility] Influenza High Dose 2017-08-16 Completed [facility] 00:00:00 [facility] Influenza High Dose 2017-08-16 Completed [facility] 00:00:00 [facility] Influenza High Dose 2017-08-16 Completed [facility] 00:00:00 [facility] Influenza High Dose 2017-08-16 Completed [facility] 00:00:00 [facility] Influenza High Dose 2017-08-16 Completed [facility] 00:00:00 [facility] Influenza High Dose 2017-08-16 Completed [facility] 00:00:00 [facility] Influenza High Dose 2017-08-16 Completed [facility] 00:00:00 [facility] Influenza High Dose 2017-08-16 Completed [facility] 00:00:00 [facility] Influenza High Dose 2017-08-16 Completed [facility] 00:00:00 [facility] Influenza High Dose 2017-08-16 Completed [facility] 00:00:00 [facility] Influenza High Dose 2017-08-16 Completed [facility] 00:00:00 [facility] Influenza High Dose 2017-08-16 Completed [facility] 00:00:00 [facility] Influenza High Dose 2017-08-16 Completed [facility] 00:00:00 [facility] Influenza High Dose 2017-08-16 Completed [facility] 00:00:00 [facility] Influenza High Dose 2017-08-16 Completed [facility] 00:00:00 [facility] Influenza High Dose 2017-08-16 Completed [facility] 00:00:00 [facility] Influenza High Dose 2017-08-16 Completed [facility] 00:00:00 [facility] Influenza High Dose 2017-08-16 Completed [facility] 00:00:00 [facility] Influenza High Dose 2017-08-16 Completed [facility] 00:00:00 [facility] Influenza High Dose 2017-08-16 Completed [facility] 00:00:00 [facility] Influenza High Dose 2017-08-16 Completed [facility] 00:00:00 [facility] Influenza High Dose 2017-08-16 Completed [facility] 00:00:00 [facility] Influenza High Dose 2017-08-16 Completed [facility] 00:00:00 [facility] Influenza High Dose 2017-08-16 Completed [facility] 00:00:00 [facility] Influenza High Dose 2017-08-16 Completed [facility] 00:00:00 [facility] Influenza High Dose 2017-08-16 Completed [facility] 00:00:00 [facility] Influenza High Dose 2017-08-16 Completed [facility] 00:00:00 [facility] Influenza High Dose 2017-08-16 Completed [facility] 00:00:00 [facility] Influenza High Dose 2017-08-16 Completed [facility] 00:00:00 [facility] Influenza High Dose 2017-08-16 Completed [facility] 00:00:00 [facility] Influenza High Dose 2017-08-16 Completed [facility] 00:00:00 [facility] Influenza High Dose 2017-08-16 Completed [facility] 00:00:00 [facility] Influenza High Dose 2017-08-16 Completed [facility] 00:00:00 [facility] Influenza High Dose 2017-08-16 Completed [facility] 00:00:00 [facility] Influenza High Dose 2017-08-16 Completed [facility] 00:00:00 [facility] Influenza High Dose 2017-08-16 Completed [facility] 00:00:00 [facility] Influenza High Dose 2017-08-16 Completed [facility] 00:00:00 [facility] Influenza High Dose 2017-08-16 Completed [facility] 00:00:00 [facility] Influenza High Dose 2017-08-16 Completed [facility] 00:00:00 [facility] Influenza High Dose 2017-08-16 Completed [facility] 00:00:00 [facility] Influenza High Dose 2017-08-16 Completed [facility] 00:00:00 [facility] Influenza High Dose 2017-08-16 Completed [facility] 00:00:00 [facility] Influenza High Dose 2017-08-16 Completed [facility] 00:00:00 [facility] Influenza High Dose 2017-08-16 Completed [facility] 00:00:00 [facility] Influenza High Dose 2017-08-16 Completed [facility] 00:00:00 [facility] Influenza High Dose 2017-08-16 Completed [facility] 00:00:00 [facility] Influenza High Dose 2017-08-16 Completed [facility] 00:00:00 [facility] Influenza High Dose 2017-08-16 Completed [facility] 00:00:00 [facility] Influenza High Dose 2017-08-16 Completed [facility] 00:00:00 [facility] Influenza High Dose 2017-08-16 Completed [facility] 00:00:00 [facility] Influenza High Dose 2017-08-16 Completed [facility] 00:00:00 [facility] Influenza High Dose 2017-08-16 Completed [facility] 00:00:00 [facility] Influenza High Dose 2017-08-16 Completed [facility] 00:00:00 [facility] Influenza High Dose 2017-08-16 Completed [facility] 00:00:00 [facility] Influenza High Dose 2017-08-16 Completed [facility] 00:00:00 [facility] Influenza High Dose 2017-08-16 Completed [facility] 00:00:00 [facility] Influenza High Dose 2017-08-16 Completed [facility] 00:00:00 [facility] Influenza High Dose 2017-08-16 Completed [facility] 00:00:00 [facility] Influenza High Dose 2017-08-16 Completed [facility] 00:00:00 [facility] Influenza High Dose 2017-08-16 Completed [facility] 00:00:00 [facility] Influenza High Dose 2017-08-16 Completed [facility] 00:00:00 [facility] Influenza High Dose 2017-08-16 Completed [facility] 00:00:00 [facility] Influenza High Dose 2017-08-16 Completed [facility] 00:00:00 [facility] Influenza High Dose 2017-08-16 Completed [facility] 00:00:00 [facility] Influenza High Dose 2017-08-16 Completed [facility] 00:00:00 [facility] Influenza High Dose 2017-08-16 Completed [facility] 00:00:00 [facility] Influenza High Dose 2017-08-16 Completed [facility] 00:00:00 [facility] Influenza High Dose 2017-08-16 Completed [facility] 00:00:00 [facility] Influenza High Dose 2017-08-16 Completed [facility] 00:00:00 [facility] Influenza High Dose 2017-08-16 Completed [facility] 00:00:00 [facility] Influenza High Dose 2017-08-16 Completed [facility] 00:00:00 [facility] Influenza High Dose 2017-08-16 Completed [facility] 00:00:00 [facility] Influenza High Dose 2017-08-16 Completed [facility] 00:00:00 [facility] Influenza High Dose 2017-08-16 Completed [facility] 00:00:00 [facility] Influenza High Dose 2017-08-16 Completed [facility] 00:00:00 [facility] Influenza High Dose 2017-08-16 Completed [facility] 00:00:00 [facility] Influenza High Dose 2017-08-16 Completed [facility] 00:00:00 [facility] Influenza High Dose 2017-08-16 Completed [facility] 00:00:00 [facility] Influenza High Dose 2017-08-16 Completed [facility] 00:00:00 [facility] Influenza High Dose 2017-08-16 Completed [facility] 00:00:00 [facility] Influenza High Dose 2017-08-16 Completed [facility] 00:00:00 [facility] Influenza High Dose 2017-08-16 Completed [facility] 00:00:00 [facility] Influenza High Dose 2017-08-16 Completed [facility] 00:00:00 [facility] Influenza High Dose 2016-12-23 Completed [facility] 00:00:00 [facility] Pneumococcal 13 2016-12-23 Completed [facility] Conjugate, PCV13 00:00:00 [place] [facility] (Prevnar 13[facility] Influenza High Dose 2016-12-23 Completed [facility] 00:00:00 [facility] Pneumococcal 13 2016-12-23 Completed [facility] Conjugate, PCV13 00:00:00 [place] [facility] (Prevnar 13) [facility] Influenza High Dose 2016-12-23 Completed [facility] 00:00:00 [facility] Pneumococcal 13 2016-12-23 Completed [facility] Conjugate, PCV13 00:00:00 [place] [facility] (Prevnar 13) [facility] Influenza High Dose 2016-12-23 Completed [facility] 00:00:00 [facility] Pneumococcal 13 2016-12-23 Completed [facility] Conjugate, PCV13 00:00:00 [place] [facility] (Prevnar 13) [facility] Influenza High Dose 2016-12-23 Completed [facility] 00:00:00 [facility] Pneumococcal 13 2016-12-23 Completed [facility] Conjugate, PCV13 00:00:00 [place] [facility] (Prevnar 13) [facility] Influenza High Dose 2016-12-23 Completed [facility] 00:00:[address] [facility] [place] [facility] Pneumococcal 13 2016-12-23 Completed [facility] Conjugate, PCV13 00:00:00 [place] [facility] (Prevnar 13) [facility] Influenza High Dose 2016-12-23 Completed [facility] 00:00:[address] [facility] Pneumococcal 13 2016-12-23 Completed [facility] Conjugate, PCV13 00:00:00 [place] [facility] (Prevnar 13) [facility] Influenza High Dose 2016-12-23 Completed [facility] 00:00:[address] [facility] [facility] Pneumococcal 13 2016-12-23 Completed [facility] Conjugate, PCV13 00:00:00 [place] [facility] (Prevnar 13) [facility] Influenza High Dose 2016-12-23 Completed [facility] 00:00:[address] [facility] [facility] Pneumococcal 13 2016-12-23 Completed [facility] Conjugate, PCV13 00:00:00 [place] [facility] (Prevnar 13) [facility] Influenza High Dose 2016-12-23 Completed [facility] 00:00:00 [facility] Pneumococcal 13 2016-12-23 Completed [facility] Conjugate, PCV13 00:00:00 [place] [facility] (Prevnar 13) [facility] Influenza High Dose 2016-12-23 Completed [facility] 00:00:00 [facility] Pneumococcal 13 2016-12-23 Completed [facility] Conjugate, PCV13 00:00:00 [place] [facility] (Prevnar 13) [facility] Influenza High Dose 2016-12-23 Completed [facility] 00:00:00 [facility] Pneumococcal 13 2016-12-23 Completed [facility] Conjugate, PCV13 00:00:00 [place] [facility] (Prevnar 13) [facility] Influenza High Dose 2016-12-23 Completed [facility] 00:00:[address] [facility] Pneumococcal 13 2016-12-23 Completed [facility] Conjugate, PCV13 00:00:00 [place] [facility] (Prevnar 13) [facility] Influenza High Dose 2016-12-23 Completed [facility] 00:00:[address] [facility] [place] [facility] Pneumococcal 13 2016-12-23 Completed [facility] Conjugate, PCV13 00:00:00 [place] [facility] (Prevnar 13) [facility] Influenza High Dose 2016-12-23 Completed [facility] [facility] Pneumococcal 13 2016-12-23 Completed [facility] Conjugate, PCV13 00:00:00 [place] [facility] (Prevnar 13) Branch Influenza High Dose 2016-12-23 Completed [facility] 00:00:00 [facility] Pneumococcal 13 2016-12-23 Completed [facility] Conjugate, PCV13 00:00:00 [place] [facility] (Prevnar 13) Branch Influenza High Dose 2016-12-23 Completed [facility] 00:00:00 [facility] Pneumococcal 13 2016-12-23 Completed [facility] Conjugate, PCV13 00:00:00 [place] [facility] (Prevnar 13) Branch Influenza High Dose 2016-12-23 Completed [facility] 00:00:00 [facility] Pneumococcal 13 2016-12-23 Completed [facility] Conjugate, PCV13 00:00:00 [place] [facility] (Prevnar 13) Branch Influenza High Dose 2016-12-23 Completed [facility] 00:00:00 [facility] Pneumococcal 13 2016-12-23 Completed [facility] Conjugate, PCV13 00:00:00 [place] [facility] (Prevnar 13) Branch Influenza High Dose 2016-12-23 Completed [facility] 00:00:00 [facility] Pneumococcal 13 2016-12-23 Completed [facility] Conjugate, PCV13 00:00:00 [place] [facility] (Prevnar 13) Branch Influenza High Dose 2016-12-23 Completed [facility] 00:00:00 [facility] Pneumococcal 13 2016-12-23 Completed [facility] Conjugate, PCV13 00:00:00 [place] [facility] (Prevnar 13) Branch Influenza High Dose 2016-12-23 Completed [facility] 00:00:00 [facility] Pneumococcal 13 2016-12-23 Completed [facility] Conjugate, PCV13 00:00:00 [place] [facility] (Prevnar 13) Branch Influenza High Dose 2016-12-23 Completed [facility] 00:00:00 [facility] Pneumococcal 13 2016-12-23 Completed [facility] Conjugate, PCV13 00:00:00 [place] [facility] (Prevnar 13) Branch Influenza High Dose 2016-12-23 Completed [facility] 00:00:00 [facility] Pneumococcal 13 2016-12-23 Completed [facility] Conjugate, PCV13 00:00:00 [place] [facility] (Prevnar 13) Branch Influenza High Dose 2016-12-23 Completed [facility] 00:00:00 [facility] Pneumococcal 13 2016-12-23 Completed [facility] Conjugate, PCV13 00:00:00 [place] [facility] (Prevnar 13) Branch Influenza High Dose 2016-12-23 Completed [facility] 00:00:[address] [facility] [place] [facility] Pneumococcal 13 2016-12-23 Completed [facility] Conjugate, PCV13 00:00:00 [place] [facility] (Prevnar 13) Branch Influenza High Dose 2016-12-23 Completed [facility] 00:00:00 [facility] Pneumococcal 13 2016-12-23 Completed [facility] Conjugate, PCV13 00:00:00 [place] [facility] (Prevnar 13) Branch Influenza High Dose 2016-12-23 Completed [facility] 00:00:00 [facility] Pneumococcal 13 2016-12-23 Completed [facility] Conjugate, PCV13 00:00:00 [place] [facility] (Prevnar 13) Branch Influenza High Dose 2016-12-23 Completed [facility] 00:00:00 [facility] Pneumococcal 13 2016-12-23 Completed [facility] Conjugate, PCV13 00:00:00 [place] [facility] (Prevnar 13) Branch Influenza High Dose 2016-12-23 Completed [facility] 00:00:00 [facility] Pneumococcal 13 2016-12-23 Completed [facility] Conjugate, PCV13 00:00:00 [place] [facility] (Prevnar 13) Branch Influenza High Dose 2016-12-23 Completed [facility] 00:00:00 [facility] Pneumococcal 13 2016-12-23 Completed [facility] Conjugate, PCV13 00:00:00 [place] [facility] (Prevnar 13) Branch Influenza High Dose 2016-12-23 Completed [facility] 00:00:00 [facility] Pneumococcal 13 2016-12-23 Completed [facility] Conjugate, PCV13 00:00:00 [place] [facility] (Prevnar 13) Branch Influenza High Dose 2016-12-23 Completed [facility] 00:00:00 [facility] Pneumococcal 13 2016-12-23 Completed [facility] Conjugate, PCV13 00:00:00 [place] [facility] (Prevnar 13) Branch Influenza High Dose 2016-12-23 Completed [facility] 00:00:00 [facility] Pneumococcal 13 2016-12-23 Completed [facility] Conjugate, PCV13 00:00:00 [place] [facility] (Prevnar 13) Branch Influenza High Dose 2016-12-23 Completed [facility] 00:00:00 [facility] Pneumococcal 13 2016-12-23 Completed [facility] Conjugate, PCV13 00:00:00 [place] [facility] (Prevnar 13) Branch Influenza High Dose 2016-12-23 Completed [facility] 00:00:00 [facility] Pneumococcal 13 2016-12-23 Completed [facility] Conjugate, PCV13 00:00:00 [place] [facility] (Prevnar 13) Branch Influenza High Dose 2016-12-23 Completed [facility] 00:00:00 [facility] Pneumococcal 13 2016-12-23 Completed [facility] Conjugate, PCV13 00:00:00 [place] [facility] (Prevnar 13) Branch Influenza High Dose 2016-12-23 Completed [facility] 00:00:00 [facility] Pneumococcal 13 2016-12-23 Completed [facility] Conjugate, PCV13 00:00:00 [place] [facility] (Prevnar 13) Branch Influenza High Dose 2016-12-23 Completed [facility] 00:00:00 [facility] Pneumococcal 13 2016-12-23 Completed [facility] Conjugate, PCV13 00:00:00 [place] [facility] (Prevnar 13) Branch Influenza High Dose 2016-12-23 Completed [facility] 00:00:00 [facility] Pneumococcal 13 2016-12-23 Completed [facility] Conjugate, PCV13 00:00:00 [place] [facility] (Prevnar 13) Branch Influenza High Dose 2016-12-23 Completed [facility] 00:00:00 [facility] Pneumococcal 13 2016-12-23 Completed [facility] Conjugate, PCV13 00:00:00 [place] [facility] (Prevnar 13) Branch Influenza High Dose 2016-12-23 Completed [facility] 00:00:00 [facility] Pneumococcal 13 2016-12-23 Completed [facility] Conjugate, PCV13 00:00:00 [place] [facility] (Prevnar 13) Branch Influenza High Dose 2016-12-23 Completed [facility] 00:00:00 [facility] Pneumococcal 13 2016-12-23 Completed [facility] Conjugate, PCV13 00:00:00 [place] [facility] (Prevnar 13) Branch Influenza High Dose 2016-12-23 Completed [facility] 00:00:00 [facility] Pneumococcal 13 2016-12-23 Completed [facility] Conjugate, PCV13 00:00:00 [place] [facility] (Prevnar 13) Branch Influenza High Dose 2016-12-23 Completed [facility] 00:00:00 [facility] Pneumococcal 13 2016-12-23 Completed [facility] Conjugate, PCV13 00:00:00 [place] [facility] (Prevnar 13) Branch Influenza High Dose 2016-12-23 Completed [facility] 00:00:00 [facility] Pneumococcal 13 2016-12-23 Completed [facility] Conjugate, PCV13 00:00:00 [place] [facility] (Prevnar 13) Branch Influenza High Dose 2016-12-23 Completed [facility] 00:00:00 [facility] Pneumococcal 13 2016-12-23 Completed [facility] Conjugate, PCV13 00:00:00 [place] [facility] (Prevnar 13) Branch Influenza High Dose 2016-12-23 Completed [facility] 00:00:00 [facility] Pneumococcal 13 2016-12-23 Completed [facility] Conjugate, PCV13 00:00:00 [place] [facility] (Prevnar 13) Branch Influenza High Dose 2016-12-23 Completed [facility] 00:00:00 [facility] Pneumococcal 13 2016-12-23 Completed [facility] Conjugate, PCV13 00:00:00 [place] [facility] (Prevnar 13) Branch Influenza High Dose 2016-12-23 Completed [facility] 00:00:00 [facility] Pneumococcal 13 2016-12-23 Completed [facility] Conjugate, PCV13 00:00:00 [place] [facility] (Prevnar 13) Branch Influenza High Dose 2016-12-23 Completed [facility] 00:00:00 [facility] Pneumococcal 13 2016-12-23 Completed [facility] Conjugate, PCV13 00:00:00 [place] [facility] (Prevnar 13) Branch Influenza High Dose 2016-12-23 Completed [facility] 00:00:00 [facility] Pneumococcal 13 2016-12-23 Completed [facility] Conjugate, PCV13 00:00:00 [place] [facility] (Prevnar 13) Branch Influenza High Dose 2016-12-23 Completed [facility] 00:00:[address] [facility] [place] [facility] Pneumococcal 13 2016-12-23 Completed [facility] Conjugate, PCV13 00:00:00 [place] [facility] (Prevnar 13) Branch Influenza High Dose 2016-12-23 Completed [facility] 00:00:00 [facility] Pneumococcal 13 2016-12-23 Completed [facility] Conjugate, PCV13 00:00:00 [place] [facility] (Prevnar 13) Branch Influenza High Dose 2016-12-23 Completed [facility] 00:00:00 [facility] Pneumococcal 13 2016-12-23 Completed [facility] Conjugate, PCV13 00:00:00 [place] [facility] (Prevnar 13) Branch Influenza High Dose 2016-12-23 Completed [facility] 00:00:00 [facility] Pneumococcal 13 2016-12-23 Completed [facility] Conjugate, PCV13 00:00:00 [place] [facility] (Prevnar 13) Branch Influenza High Dose 2016-12-23 Completed [facility] 00:00:00 [facility] Pneumococcal 13 2016-12-23 Completed [facility] Conjugate, PCV13 00:00:00 [place] [facility] (Prevnar 13) Branch Influenza High Dose 2016-12-23 Completed [facility] 00:00:00 [facility] Pneumococcal 13 2016-12-23 Completed [facility] Conjugate, PCV13 00:00:00 [place] [facility] (Prevnar 13) Branch Influenza High Dose 2016-12-23 Completed [facility] 00:00:00 [facility] Pneumococcal 13 2016-12-23 Completed [facility] Conjugate, PCV13 00:00:00 [place] [facility] (Prevnar 13) Branch Influenza High Dose 2016-12-23 Completed [facility] 00:00:00 [facility] Pneumococcal 13 2016-12-23 Completed [facility] Conjugate, PCV13 00:00:00 [place] [facility] (Prevnar 13) Branch Influenza High Dose 2016-12-23 Completed [facility] 00:00:00 [facility] Pneumococcal 13 2016-12-23 Completed [facility] Conjugate, PCV13 00:00:00 [place] [facility] (Prevnar 13) Branch Influenza High Dose 2016-12-23 Completed [facility] 00:00:00 [facility] Pneumococcal 13 2016-12-23 Completed [facility] Conjugate, PCV13 00:00:00 [place] [facility] (Prevnar 13) Branch Influenza High Dose 2016-12-23 Completed [facility] 00:00:[address] [facility] [place] [facility] Pneumococcal 13 2016-12-23 Completed [facility] Conjugate, PCV13 00:00:00 [place] [facility] (Prevnar 13) Branch Influenza High Dose 2016-12-23 Completed [facility] 00:00:[address] [facility] [place] [facility] Pneumococcal 13 2016-12-23 Completed [facility] Conjugate, PCV13 00:00:00 [place] [facility] (Prevnar 13) Branch Influenza High Dose 2016-12-23 Completed [facility] 00:00:[address] [facility] [place] [facility] Pneumococcal 13 2016-12-23 Completed [facility] Conjugate, PCV13 00:00:00 [place] [facility] (Prevnar 13) Branch Influenza High Dose 2016-12-23 Completed [facility] 00:00:00 [facility] Pneumococcal 13 2016-12-23 Completed [facility] Conjugate, PCV13 00:00:00 [place] [facility] (Prevnar 13) Branch Influenza High Dose 2016-12-23 Completed [facility] 00:00:00 [facility] Pneumococcal 13 2016-12-23 Completed [facility] Conjugate, PCV13 00:00:00 [place] [facility] (Prevnar 13) Branch Influenza High Dose 2016-12-23 Completed [facility] 00:00:00 [facility] Pneumococcal 13 2016-12-23 Completed [facility] Conjugate, PCV13 00:00:00 [place] [facility] (Prevnar 13) Branch Influenza High Dose 2016-12-23 Completed [facility] 00:00:00 [facility] Pneumococcal 13 2016-12-23 Completed [facility] Conjugate, PCV13 00:00:00 [place] [facility] (Prevnar 13) Branch Influenza High Dose 2016-12-23 Completed [facility] 00:00:00 [facility] Pneumococcal 13 2016-12-23 Completed [facility] Conjugate, PCV13 00:00:00 [place] [facility] (Prevnar 13) Branch Influenza High Dose 2016-12-23 Completed [facility] 00:00:00 [facility] Pneumococcal 13 2016-12-23 Completed [facility] Conjugate, PCV13 00:00:00 [place] [facility] (Prevnar 13) Branch Influenza High Dose 2016-12-23 Completed [facility] 00:00:[address] [facility] [place] [facility] Pneumococcal 13 2016-12-23 Completed [facility] Conjugate, PCV13 00:00:00 [place] [facility] (Prevnar 13) Branch Influenza High Dose 2016-12-23 Completed [facility] 00:00:00 [facility] Pneumococcal 13 2016-12-23 Completed [facility] Conjugate, PCV13 00:00:00 [place] [facility] (Prevnar 13) Branch Influenza High Dose 2016-12-23 Completed [facility] 00:00:[address] [facility] [place] [facility] Pneumococcal 13 2016-12-23 Completed [facility] Conjugate, PCV13 00:00:00 [place] [facility] (Prevnar 13) Branch Influenza High Dose 2016-12-23 Completed [facility] 00:00:00 [facility] Pneumococcal 13 2016-12-23 Completed [facility] Conjugate, PCV13 00:00:00 [place] [facility] (Prevnar 13) Branch Influenza High Dose 2016-12-23 Completed [facility] 00:00:00 [facility] Pneumococcal 13 2016-12-23 Completed [facility] Conjugate, PCV13 00:00:00 [place] [facility] (Prevnar 13) Branch Influenza High Dose 2016-12-23 Completed [facility] 00:00:00 [facility] Pneumococcal 13 2016-12-23 Completed [facility] Conjugate, PCV13 00:00:00 [place] [facility] (Prevnar 13) Branch Influenza High Dose 2016-12-23 Completed [facility] 00:00:00 [facility] Pneumococcal 13 2016-12-23 Completed [facility] Conjugate, PCV13 00:00:00 [place] [facility] (Prevnar 13) Branch Influenza High Dose 2016-12-23 Completed [facility] 00:00:00 [facility] Pneumococcal 13 2016-12-23 Completed [facility] Conjugate, PCV13 00:00:00 [place] [facility] (Prevnar 13) Branch Influenza High Dose 2016-12-23 Completed [facility] 00:00:00 [facility] Pneumococcal 13 2016-12-23 Completed [facility] Conjugate, PCV13 00:00:00 [place] [facility] (Prevnar 13) Branch Influenza High Dose 2016-12-23 Completed [facility] 00:00:00 [facility] Pneumococcal 13 2016-12-23 Completed [facility] Conjugate, PCV13 00:00:00 [place] [facility] (Prevnar 13) Branch Influenza High Dose 2016-12-23 Completed [facility] 00:00:00 [facility] Pneumococcal 13 2016-12-23 Completed [facility] Conjugate, PCV13 00:00:00 [place] [facility] (Prevnar 13) Branch Influenza High Dose 2016-12-23 Completed [facility] 00:00:00 [facility] Pneumococcal 13 2016-12-23 Completed [facility] Conjugate, PCV13 00:00:00 [place] [facility] (Prevnar 13) Branch Influenza High Dose 2016-12-23 Completed [facility] 00:00:00 [facility] Pneumococcal 13 2016-12-23 Completed [facility] Conjugate, PCV13 00:00:00 [place] [facility] (Prevnar 13) Branch Influenza High Dose 2016-12-23 Completed [facility] 00:00:00 [facility] Pneumococcal 13 2016-12-23 Completed [facility] Conjugate, PCV13 00:00:00 [place] [facility] (Prevnar 13) Branch Influenza High Dose 2016-12-23 Completed [facility] 00:00:00 [facility] Pneumococcal 13 2016-12-23 Completed [facility] Conjugate, PCV13 00:00:00 [place] [facility] (Prevnar 13) Branch Influenza High Dose 2016-12-23 Completed [facility] 00:00:00 [facility] Pneumococcal 13 2016-12-23 Completed [facility] Conjugate, PCV13 00:00:00 [place] [facility] (Prevnar 13) Branch Influenza High Dose 2016-12-23 Completed [facility] 00:00:00 [facility] Pneumococcal 13 2016-12-23 Completed [facility] Conjugate, PCV13 00:00:00 [place] [facility] (Prevnar 13) Branch Influenza High Dose 2016-12-23 Completed [facility] 00:00:00 [facility] Pneumococcal 13 2016-12-23 Completed [facility] Conjugate, PCV13 00:00:00 [place] [facility] (Prevnar 13) Branch Influenza High Dose 2016-12-23 Completed [facility] 00:00:00 [facility] Pneumococcal 13 2016-12-23 Completed [facility] Conjugate, PCV13 00:00:00 [place] [facility] (Prevnar 13) Branch Influenza High Dose 2016-12-23 Completed [facility] 00:00:00 [facility] Pneumococcal 13 2016-12-23 Completed [facility] Conjugate, PCV13 00:00:00 [place] [facility] (Prevnar 13) Branch Influenza High Dose 2016-12-23 Completed [facility] 00:00:00 [facility] Pneumococcal 13 2016-12-23 Completed [facility] Conjugate, PCV13 00:00:00 [place] [facility] (Prevnar 13) Branch Influenza High Dose 2016-12-23 Completed [facility] 00:00:00 [facility] Pneumococcal 13 2016-12-23 Completed [facility] Conjugate, PCV13 00:00:00 [place] [facility] (Prevnar 13) Branch Influenza High Dose 2016-12-23 Completed [facility] 00:00:00 [facility] Pneumococcal 13 2016-12-23 Completed [facility] Conjugate, PCV13 00:00:00 [place] [facility] (Prevnar 13) Branch Influenza High Dose 2016-12-23 Completed [facility] 00:00:00 [facility] Pneumococcal 13 2016-12-23 Completed [facility] Conjugate, PCV13 00:00:00 [place] [facility] (Prevnar 13) Branch Influenza High Dose 2016-12-23 Completed [facility] 00:00:00 [facility] Pneumococcal 13 2016-12-23 Completed [facility] Conjugate, PCV13 00:00:00 [place] [facility] (Prevnar 13) Branch Influenza High Dose 2016-12-23 Completed [facility] 00:00:00 [facility] Pneumococcal 13 2016-12-23 Completed [facility] Conjugate, PCV13 00:00:00 [place] [facility] (Prevnar 13) Branch Influenza High Dose 2016-12-23 Completed [facility] 00:00:00 [facility] Pneumococcal 13 2016-12-23 Completed [facility] Conjugate, PCV13 00:00:00 [place] [facility] (Prevnar 13) Branch Influenza High Dose 2016-12-23 Completed [facility] 00:00:00 [facility] Pneumococcal 13 2016-12-23 Completed [facility] Conjugate, PCV13 00:00:00 [place] [facility] (Prevnar 13) Branch Influenza High Dose 2016-12-23 Completed [facility] 00:00:00 [facility] Pneumococcal 13 2016-12-23 Completed [facility] Conjugate, PCV13 00:00:00 [place] [facility] (Prevnar 13) Branch Influenza High Dose 2016-12-23 Completed [facility] 00:00:00 [facility] Pneumococcal 13 2016-12-23 Completed [facility] Conjugate, PCV13 00:00:00 [place] [facility] (Prevnar 13) Branch Influenza High Dose 2016-12-23 Completed [facility] 00:00:00 [facility] Pneumococcal 13 2016-12-23 Completed [facility] Conjugate, PCV13 00:00:00 [place] [facility] (Prevnar 13) Branch Influenza High Dose 2016-12-23 Completed [facility] 00:00:00 [facility] Pneumococcal 13 2016-12-23 Completed [facility] Conjugate, PCV13 00:00:00 [place] [facility] (Prevnar 13) Branch Influenza High Dose 2016-12-23 Completed [facility] 00:00:00 [facility] Pneumococcal 13 2016-12-23 Completed [facility] Conjugate, PCV13 00:00:00 [place] [facility] (Prevnar 13) Branch Influenza High Dose 2016-12-23 Completed [facility] 00:00:00 [facility] Pneumococcal 13 2016-12-23 Completed [facility] Conjugate, PCV13 00:00:00 [place] [facility] (Prevnar 13) Branch Influenza High Dose 2016-12-23 Completed [facility] 00:00:00 [facility] Pneumococcal 13 2016-12-23 Completed [facility] Conjugate, PCV13 00:00:00 [place] [facility] (Prevnar 13) Branch Influenza High Dose 2016-12-23 Completed [facility] 00:00:00 [facility] Pneumococcal 13 2016-12-23 Completed [facility] Conjugate, PCV13 00:00:00 [place] [facility] (Prevnar 13) Branch Influenza High Dose 2016-12-23 Completed [facility] 00:00:00 [facility] Pneumococcal 13 2016-12-23 Completed [facility] Conjugate, PCV13 00:00:00 [place] [facility] (Prevnar 13) Branch Influenza High Dose 2016-12-23 Completed [facility] 00:00:00 [facility] Pneumococcal 13 2016-12-23 Completed [facility] Conjugate, PCV13 00:00:00 [place] [facility] (Prevnar 13) Branch Influenza High Dose 2016-12-23 Completed [facility] 00:00:00 [facility] Pneumococcal 13 2016-12-23 Completed [facility] Conjugate, PCV13 00:00:00 [place] [facility] (Prevnar 13) Branch Influenza High Dose 2016-12-23 Completed [facility] 00:00:00 [facility] Pneumococcal 13 2016-12-23 Completed [facility] Conjugate, PCV13 00:00:00 [place] [facility] (Prevnar 13) Branch Influenza High Dose 2016-12-23 Completed [facility] 00:00:00 [facility] Pneumococcal 13 2016-12-23 Completed [facility] Conjugate, PCV13 00:00:00 [place] [facility] (Prevnar 13) Branch Influenza High Dose 2016-12-23 Completed [facility] 00:00:00 [facility] Pneumococcal 13 2016-12-23 Completed [facility] Conjugate, PCV13 00:00:00 [place] [facility] (Prevnar 13) Branch Influenza High Dose 2016-12-23 Completed [facility] 00:00:00 [facility] Pneumococcal 13 2016-12-23 Completed [facility] Conjugate, PCV13 00:00:00 [place] [facility] (Prevnar 13) Branch Influenza High Dose 2016-12-23 Completed [facility] 00:00:00 [facility] Pneumococcal 13 2016-12-23 Completed [facility] Conjugate, PCV13 00:00:00 [place] [facility] (Prevnar 13) Branch Influenza High Dose 2016-12-23 Completed [facility] 00:00:00 [facility] Pneumococcal 13 2016-12-23 Completed [facility] Conjugate, PCV13 00:00:00 [place] [facility] (Prevnar 13) Branch Influenza High Dose 2016-12-23 Completed [facility] 00:00:00 [facility] Pneumococcal 13 2016-12-23 Completed [facility] Conjugate, PCV13 00:00:00 [place] [facility] (Prevnar 13) Branch Influenza High Dose 2016-12-23 Completed [facility] 00:00:00 [facility] Pneumococcal 13 2016-12-23 Completed [facility] Conjugate, PCV13 00:00:00 [place] [facility] (Prevnar 13) Branch Influenza High Dose 2016-12-23 Completed [facility] 00:00:[address] [facility] [place] [facility] Pneumococcal 13 2016-12-23 Completed [facility] Conjugate, PCV13 00:00:00 [place] [facility] (Prevnar 13) Branch Influenza High Dose 2016-12-23 Completed [facility] 00:00:[address] [facility] [place] [facility] Pneumococcal 13 2016-12-23 Completed [facility] Conjugate, PCV13 00:00:00 [place] [facility] (Prevnar 13) Branch Influenza High Dose 2016-12-23 Completed [facility] 00:00:[address] [facility] [place] [place] [facility] Pneumococcal 13 2016-12-23 Completed [facility] Conjugate, PCV13 00:00:00 [place] [facility] (Prevnar 13) Branch Influenza High Dose 2016-12-23 Completed [facility] 00:00:00 [facility] Pneumococcal 13 2016-12-23 Completed [facility] Conjugate, PCV13 00:00:00 [place] [facility] (Prevnar 13) Branch Influenza High Dose 2016-12-23 Completed [facility] 00:00:00 [facility] Pneumococcal 13 2016-12-23 Completed [facility] Conjugate, PCV13 00:00:00 [place] [facility] (Prevnar 13) Branch Influenza High Dose 2016-12-23 Completed [facility] 00:00:00 [facility] Pneumococcal 13 2016-12-23 Completed [facility] Conjugate, PCV13 00:00:00 [place] [facility] (Prevnar 13) Branch Influenza High Dose 2016-12-23 Completed [facility] 00:00:00 [facility] Pneumococcal 13 2016-12-23 Completed [facility] Conjugate, PCV13 00:00:00 [place] [facility] (Prevnar 13) Branch Influenza High Dose 2016-12-23 Completed [facility] 00:00:00 [facility] Pneumococcal 13 2016-12-23 Completed [facility] Conjugate, PCV13 00:00:00 [place] [facility] (Prevnar 13) Branch Influenza High Dose 2016-12-23 Completed [facility] 00:00:00 [facility] Pneumococcal 13 2016-12-23 Completed [facility] Conjugate, PCV13 00:00:00 [place] [facility] (Prevnar 13) Branch Influenza High Dose 2016-12-23 Completed [facility] 00:00:00 [facility] Pneumococcal 13 2016-12-23 Completed [facility] Conjugate, PCV13 00:00:00 [place] [facility] (Prevnar 13) Branch Influenza High Dose 2016-12-23 Completed [facility] 00:00:00 [facility] Pneumococcal 13 2016-12-23 Completed [facility] Conjugate, PCV13 00:00:00 [place] [facility] (Prevnar 13) Branch Influenza High Dose 2016-12-23 Completed [facility] 00:00:00 [facility] Pneumococcal 13 2016-12-23 Completed [facility] Conjugate, PCV13 00:00:00 [place] [facility] (Prevnar 13) Branch Influenza High Dose 2016-12-23 Completed [facility] 00:00:00 [facility] Pneumococcal 13 2016-12-23 Completed [facility] Conjugate, PCV13 00:00:00 [place] [facility] (Prevnar 13) Branch Influenza High Dose 2016-12-23 Completed [facility] 00:00:00 [facility] Pneumococcal 13 2016-12-23 Completed [facility] Conjugate, PCV13 00:00:00 [place] [facility] (Prevnar 13) Branch Influenza High Dose 2016-12-23 Completed [facility] 00:00:00 [facility] Pneumococcal 13 2016-12-23 Completed [facility] of Conjugate, PCV13 00:00:00 [place] [facility] (Prevnar 13) Branch Influenza High Dose 2016-12-23 Completed [facility] 00:00:00 [facility] Pneumococcal 13 2016-12-23 Completed [facility] of Conjugate, PCV13 00:00:00 [place] [facility] (Prevnar 13) Branch Influenza High Dose 2016-12-23 Completed [facility] 00:00:00 [facility] Pneumococcal 13 2016-12-23 Completed [facility] of Conjugate, PCV13 00:00:00 [place] [facility] (Prevnar 13) Branch Influenza High Dose 2016-12-23 Completed [facility] 00:00:00 [facility] Pneumococcal 13 2016-12-23 Completed [facility] of Conjugate, PCV13 00:00:00 [place] [facility] (Prevnar 13) Branch Influenza High Dose 2016-12-23 Completed [facility] 00:00:00 [facility] Pneumococcal 13 2016-12-23 Completed [facility] of Conjugate, PCV13 00:00:00 [place] [facility] (Prevnar 13) Branch Influenza High Dose 2016-12-23 Completed [facility] 00:00:00 [facility] Pneumococcal 13 2016-12-23 Completed [facility] of Conjugate, PCV13 00:00:00 [place] [facility] (Prevnar 13) Branch Influenza High Dose 2016-12-23 Completed [facility] 00:00:00 [facility] Pneumococcal 13 2016-12-23 Completed [facility] of Conjugate, PCV13 00:00:00 [place] [facility] (Prevnar 13) Branch Influenza High Dose 2016-12-23 Completed [facility] 00:00:00 [facility] Pneumococcal 13 2016-12-23 Completed [facility] of Conjugate, PCV13 00:00:00 [place] [facility] (Prevnar 13) Branch Influenza High Dose 2016-12-23 Completed [facility] of 00:00:00 [facility] Pneumococcal 13 2016-12-23 Completed [facility] of Conjugate, PCV13 00:00:00 [place] [facility] (Prevnar 13) Branch Influenza High Dose 2016-12-23 Completed [facility] 00:00:00 [facility] Pneumococcal 13 2016-12-23 Completed [facility] of Conjugate, PCV13 00:00:00 [place] [facility] (Prevnar 13) Branch Influenza High Dose 2016-12-23 Completed [facility] of 00:00:00 [facility] Pneumococcal 13 2016-12-23 Completed [facility] of Conjugate, PCV13 00:00:[address] [place] [facility] (Prevnar 13) Branch Pneumococcal 2015-10-08 Completed [facility] o f Polysaccharide, 00:00:00 [place] [facility] PPSV23 (PNEUMOVAX) Branch Influenza Virus 2015-10-08 Completed [facility] of Vaccine Quad IM 3+ 00:00:00 [facility] Pneumococcal 2015-10-08 Completed [facility] o f Polysaccharide, 00:00:00 [place] [facility] PPSV23 (PNEUMOVAX) Branch Influenza Virus 2015-10-08 Completed [facility]it [facility] of Vaccine Quad IM 3+ 00:00:00 [facility] Pneumococcal 2015-10-08 Completed [facility] o f Polysaccharide, 00:00:00 [place] [facility] PPSV23 (PNEUMOVAX) Branch Influenza Virus 2015-10-08 Completed [facility] of Vaccine Quad IM 3+ 00:00:00 [facility] Pneumococcal 2015-10-08 Completed [facility] o f Polysaccharide, 00:00:00 [place] [facility] PPSV23 (PNEUMOVAX) Branch Influenza Virus 2015-10-08 Completed [facility] of Vaccine Quad IM 3+ 00:00:00 [facility] Pneumococcal 2015-10-08 Completed [facility] o f Polysaccharide, 00:00:00 [place] [facility] PPSV23 (PNEUMOVAX) Branch Influenza Virus 2015-10-08 Completed [facility] of Vaccine Quad IM 3+ 00:00:00 [facility] Pneumococcal 2015-10-08 Completed [facility] o f Polysaccharide, 00:00:00 [place] [facility] PPSV23 (PNEUMOVAX) Branch Influenza Virus 2015-10-08 Completed [facility] of Vaccine Quad IM 3+ 00:00:00 [facility] Pneumococcal 2015-10-08 Completed [facility] o f Polysaccharide, 00:00:00 [place] [facility] PPSV23 (PNEUMOVAX) Branch Influenza Virus 2015-10-08 Completed [facility] of Vaccine Quad IM 3+ 00:00:00 [facility] Pneumococcal 2015-10-08 Completed [facility] o f Polysaccharide, 00:00:00 [place] [facility] PPSV23 (PNEUMOVAX) Branch Influenza Virus 2015-10-08 Completed [facility] of Vaccine Quad IM 3+ 00:00:00 [facility] Pneumococcal 2015-10-08 Completed [facility] o f Polysaccharide, 00:00:00 [place] [facility] PPSV23 (PNEUMOVAX) Branch Influenza Virus 2015-10-08 Completed [facility] of Vaccine Quad IM 3+ 00:00:00 [facility] Pneumococcal 2015-10-08 Completed [facility] o f Polysaccharide, 00:00:00 [place] [facility] PPSV23 (PNEUMOVAX) Branch Influenza Virus 2015-10-08 Completed [facility] of Vaccine Quad IM 3+ 00:00:00 [facility] Pneumococcal 2015-10-08 Completed [facility] o f Polysaccharide, 00:00:00 [place] [facility] PPSV23 (PNEUMOVAX) Branch Influenza Virus 2015-10-08 Completed [facility] of Vaccine Quad IM 3+ 00:00:00 [facility] Pneumococcal 2015-10-08 Completed [facility] o f Polysaccharide, 00:00:00 [place] [facility] PPSV23 (PNEUMOVAX) Branch Influenza Virus 2015-10-08 Completed [facility] of Vaccine Quad IM 3+ 00:00:00 [facility] Pneumococcal 2015-10-08 Completed [facility] o f Polysaccharide, 00:00:00 [place] [facility] PPSV23 (PNEUMOVAX) Branch Influenza Virus 2015-10-08 Completed [facility] of Vaccine Quad IM 3+ 00:00:00 [facility] Pneumococcal 2015-10-08 Completed [facility] o f Polysaccharide, 00:00:00 [place] [facility] PPSV23 (PNEUMOVAX) Branch Influenza Virus 2015-10-08 Completed [facility] of Vaccine Quad IM 3+ 00:00:00 [facility] Pneumococcal 2015-10-08 Completed [facility] o f Polysaccharide, 00:00:00 [place] [facility] PPSV23 (PNEUMOVAX) Branch Influenza Virus 2015-10-08 Completed [facility] of Vaccine Quad IM 3+ 00:00:00 [facility] Pneumococcal 2015-10-08 Completed [facility] o f Polysaccharide, 00:00:00 [place] [facility] PPSV23 (PNEUMOVAX) Branch Influenza Virus 2015-10-08 Completed [facility] of Vaccine Quad IM 3+ 00:00:00 [facility] Pneumococcal 2015-10-08 Completed [facility] o f Polysaccharide, 00:00:00 [place] [facility] PPSV23 (PNEUMOVAX) Branch Influenza Virus 2015-10-08 Completed [facility] of Vaccine Quad IM 3+ 00:00:00 [facility] Pneumococcal 2015-10-08 Completed [facility] o f Polysaccharide, 00:00:00 [place] [facility] PPSV23 (PNEUMOVAX) Branch Influenza Virus 2015-10-08 Completed [facility] of Vaccine Quad IM 3+ 00:00:00 [facility] Pneumococcal 2015-10-08 Completed [facility] o f Polysaccharide, 00:00:00 [place] [facility] PPSV23 (PNEUMOVAX) Branch Influenza Virus 2015-10-08 Completed [facility] of Vaccine Quad IM 3+ 00:00:00 [facility] Pneumococcal 2015-10-08 Completed [facility] o f Polysaccharide, 00:00:00 [place] [facility] PPSV23 (PNEUMOVAX) Branch Influenza Virus 2015-10-08 Completed [facility] of Vaccine Quad IM 3+ 00:00:00 [facility] Pneumococcal 2015-10-08 Completed [facility] o f Polysaccharide, 00:00:00 [place] [facility] PPSV23 (PNEUMOVAX) Branch Influenza Virus 2015-10-08 Completed [facility] of Vaccine Quad IM 3+ 00:00:00 [facility] Pneumococcal 2015-10-08 Completed [facility] o f Polysaccharide, 00:00:00 [place] [facility] PPSV23 (PNEUMOVAX) Branch Influenza Virus 2015-10-08 Completed [facility] of Vaccine Quad IM 3+ 00:00:00 [facility] Pneumococcal 2015-10-08 Completed [facility] o f Polysaccharide, 00:00:00 [place] [facility] PPSV23 (PNEUMOVAX) Branch Influenza Virus 2015-10-08 Completed [facility] of Vaccine Quad IM 3+ 00:00:00 [facility] Pneumococcal 2015-10-08 Completed [facility] o f Polysaccharide, 00:00:00 [place] [facility] PPSV23 (PNEUMOVAX) Branch Influenza Virus 2015-10-08 Completed [facility] of Vaccine Quad IM 3+ 00:00:00 [facility] Pneumococcal 2015-10-08 Completed [facility] o f Polysaccharide, 00:00:00 [place] [facility] PPSV23 (PNEUMOVAX) Branch Influenza Virus 2015-10-08 Completed [facility] of Vaccine Quad IM 3+ 00:00:00 [facility] Pneumococcal 2015-10-08 Completed [facility] o f Polysaccharide, 00:00:00 [place] [facility] PPSV23 (PNEUMOVAX) Branch Influenza Virus 2015-10-08 Completed [facility] of Vaccine Quad IM 3+ 00:00:00 [facility] Pneumococcal 2015-10-08 Completed [facility] o f Polysaccharide, 00:00:00 [place] [facility] PPSV23 (PNEUMOVAX) Branch Influenza Virus 2015-10-08 Completed [facility] of Vaccine Quad IM 3+ 00:00:00 [facility] Pneumococcal 2015-10-08 Completed [facility] o f Polysaccharide, 00:00:00 [place] [facility] PPSV23 (PNEUMOVAX) Branch Influenza Virus 2015-10-08 Completed [facility] of Vaccine Quad IM 3+ 00:00:00 [facility] Pneumococcal 2015-10-08 Completed [facility] o f Polysaccharide, 00:00:00 [place] [facility] PPSV23 (PNEUMOVAX) Branch Influenza Virus 2015-10-08 Completed [facility] of Vaccine Quad IM 3+ 00:00:00 [facility] Pneumococcal 2015-10-08 Completed [facility] o f Polysaccharide, 00:00:00 [place] [facility] PPSV23 (PNEUMOVAX) Branch Influenza Virus 2015-10-08 Completed [facility] of Vaccine Quad IM 3+ 00:00:00 [facility] Pneumococcal 2015-10-08 Completed [facility] o f Polysaccharide, 00:00:00 [place] [facility] PPSV23 (PNEUMOVAX) Branch Influenza Virus 2015-10-08 Completed [facility] of Vaccine Quad IM 3+ 00:00:00 [facility] Pneumococcal 2015-10-08 Completed [facility] o f Polysaccharide, 00:00:00 [place] [facility] PPSV23 (PNEUMOVAX) Branch Influenza Virus 2015-10-08 Completed [facility] of Vaccine Quad IM 3+ 00:00:00 [facility] Pneumococcal 2015-10-08 Completed [facility] o f Polysaccharide, 00:00:00 [place] [facility] PPSV23 (PNEUMOVAX) Branch Influenza Virus 2015-10-08 Completed [facility] of Vaccine Quad IM 3+ 00:00:00 [facility] Pneumococcal 2015-10-08 Completed [facility] o f Polysaccharide, 00:00:00 [place] [facility] PPSV23 (PNEUMOVAX) Branch Influenza Virus 2015-10-08 Completed [facility] of Vaccine Quad IM 3+ 00:00:00 [facility] Pneumococcal 2015-10-08 Completed [facility] o f Polysaccharide, 00:00:00 [place] [facility] PPSV23 (PNEUMOVAX) Branch Influenza Virus 2015-10-08 Completed [facility] of Vaccine Quad IM 3+ 00:00:00 [facility] Pneumococcal 2015-10-08 Completed [facility] o f Polysaccharide, 00:00:00 [place] [facility] PPSV23 (PNEUMOVAX) Branch Influenza Virus 2015-10-08 Completed [facility] of Vaccine Quad IM 3+ 00:00:00 [facility] Pneumococcal 2015-10-08 Completed [facility] o f Polysaccharide, 00:00:00 [place] [facility] PPSV23 (PNEUMOVAX) Branch Influenza Virus 2015-10-08 Completed [facility] of Vaccine Quad IM 3+ 00:00:00 [facility] Pneumococcal 2015-10-08 Completed [facility] o f Polysaccharide, 00:00:00 [place] [facility] PPSV23 (PNEUMOVAX) Branch Influenza Virus 2015-10-08 Completed [facility] of Vaccine Quad IM 3+ 00:00:00 [facility] Pneumococcal 2015-10-08 Completed [facility] o f Polysaccharide, 00:00:00 [place] [facility] PPSV23 (PNEUMOVAX) Branch Influenza Virus 2015-10-08 Completed [facility] of Vaccine Quad IM 3+ 00:00:00 [facility] Pneumococcal 2015-10-08 Completed [facility] o f Polysaccharide, 00:00:00 [place] [facility] PPSV23 (PNEUMOVAX) Branch Influenza Virus 2015-10-08 Completed [facility] of Vaccine Quad IM 3+ 00:00:00 [facility] Pneumococcal 2015-10-08 Completed [facility] o f Polysaccharide, 00:00:00 [place] [facility] PPSV23 (PNEUMOVAX) Branch Influenza Virus 2015-10-08 Completed [facility] of Vaccine Quad IM 3+ 00:00:00 [facility] Pneumococcal 2015-10-08 Completed [facility] o f Polysaccharide, 00:00:00 [place] [facility] PPSV23 (PNEUMOVAX) Branch Influenza Virus 2015-10-08 Completed [facility] of Vaccine Quad IM 3+ 00:00:00 [facility] Pneumococcal 2015-10-08 Completed [facility] o f Polysaccharide, 00:00:00 [place] [facility] PPSV23 (PNEUMOVAX) Branch Influenza Virus 2015-10-08 Completed [facility] of Vaccine Quad IM 3+ 00:00:00 [facility] Pneumococcal 2015-10-08 Completed [facility] o f Polysaccharide, 00:00:00 [place] [facility] PPSV23 (PNEUMOVAX) Branch Influenza Virus 2015-10-08 Completed [facility] of Vaccine Quad IM 3+ 00:00:00 [facility] Pneumococcal 2015-10-08 Completed [facility] o f Polysaccharide, 00:00:00 [place] [facility] PPSV23 (PNEUMOVAX) Branch Influenza Virus 2015-10-08 Completed [facility] of Vaccine Quad IM 3+ 00:00:00 [facility] Pneumococcal 2015-10-08 Completed [facility] o f Polysaccharide, 00:00:00 [place] [facility] PPSV23 (PNEUMOVAX) Branch Influenza Virus 2015-10-08 Completed [facility] of Vaccine Quad IM 3+ 00:00:00 [facility] Pneumococcal 2015-10-08 Completed [facility] o f Polysaccharide, 00:00:00 [place] [facility] PPSV23 (PNEUMOVAX) Branch Influenza Virus 2015-10-08 Completed [facility] of Vaccine Quad IM 3+ 00:00:00 [facility] Pneumococcal 2015-10-08 Completed [facility] o f Polysaccharide, 00:00:00 [place] [facility] PPSV23 (PNEUMOVAX) Branch Influenza Virus 2015-10-08 Completed [facility] of Vaccine Quad IM 3+ 00:00:00 [facility] Pneumococcal 2015-10-08 Completed [facility] o f Polysaccharide, 00:00:00 [place] [facility] PPSV23 (PNEUMOVAX) Branch Influenza Virus 2015-10-08 Completed [facility] of Vaccine Quad IM 3+ 00:00:00 [facility] Pneumococcal 2015-10-08 Completed [facility] o f Polysaccharide, 00:00:00 [place] [facility] PPSV23 (PNEUMOVAX) Branch Influenza Virus 2015-10-08 Completed [facility] of Vaccine Quad IM 3+ 00:00:00 [facility] Pneumococcal 2015-10-08 Completed [facility] o f Polysaccharide, 00:00:00 [place] [facility] PPSV23 (PNEUMOVAX) Branch Influenza Virus 2015-10-08 Completed [facility] of Vaccine Quad IM 3+ 00:00:00 [facility] Pneumococcal 2015-10-08 Completed [facility] o f Polysaccharide, 00:00:00 [place] [facility] PPSV23 (PNEUMOVAX) Branch Influenza Virus 2015-10-08 Completed [facility] of Vaccine Quad IM 3+ 00:00:00 [facility] Pneumococcal 2015-10-08 Completed [facility] o f Polysaccharide, 00:00:00 [place] [facility] PPSV23 (PNEUMOVAX) Branch Influenza Virus 2015-10-08 Completed [facility] of Vaccine Quad IM 3+ 00:00:00 [facility] Pneumococcal 2015-10-08 Completed [facility] o f Polysaccharide, 00:00:00 [place] [facility] PPSV23 (PNEUMOVAX) Branch Influenza Virus 2015-10-08 Completed [facility] of Vaccine Quad IM 3+ 00:00:00 [facility] Pneumococcal 2015-10-08 Completed [facility] o f Polysaccharide, 00:00:00 [place] [facility] PPSV23 (PNEUMOVAX) Branch Influenza Virus 2015-10-08 Completed [facility] of Vaccine Quad IM 3+ 00:00:00 [facility] Pneumococcal 2015-10-08 Completed [facility] o f Polysaccharide, 00:00:00 [place] [facility] PPSV23 (PNEUMOVAX) Branch Influenza Virus 2015-10-08 Completed [facility] of Vaccine Quad IM 3+ 00:00:00 [facility] Pneumococcal 2015-10-08 Completed [facility] o f Polysaccharide, 00:00:00 [place] [facility] PPSV23 (PNEUMOVAX) Branch Influenza Virus 2015-10-08 Completed [facility] of Vaccine Quad IM 3+ 00:00:00 [facility] Pneumococcal 2015-10-08 Completed [facility] o f Polysaccharide, 00:00:00 [place] [facility] PPSV23 (PNEUMOVAX) Branch Influenza Virus 2015-10-08 Completed [facility] of Vaccine Quad IM 3+ 00:00:00 [facility] Pneumococcal 2015-10-08 Completed [facility] o f Polysaccharide, 00:00:00 [place] [facility] PPSV23 (PNEUMOVAX) Branch Influenza Virus 2015-10-08 Completed [facility] of Vaccine Quad IM 3+ 00:00:00 [facility] Pneumococcal 2015-10-08 Completed [facility] o f Polysaccharide, 00:00:00 [place] [facility] PPSV23 (PNEUMOVAX) Branch Influenza Virus 2015-10-08 Completed [facility] of Vaccine Quad IM 3+ 00:00:00 [facility] Pneumococcal 2015-10-08 Completed [facility] o f Polysaccharide, 00:00:00 [place] [facility] PPSV23 (PNEUMOVAX) Branch Influenza Virus 2015-10-08 Completed [facility] of Vaccine Quad IM 3+ 00:00:00 [facility] Pneumococcal 2015-10-08 Completed [facility] o f Polysaccharide, 00:00:00 [place] [facility] PPSV23 (PNEUMOVAX) Branch Influenza Virus 2015-10-08 Completed [facility] of Vaccine Quad IM 3+ 00:00:00 [facility] Pneumococcal 2015-10-08 Completed [facility] o f Polysaccharide, 00:00:00 [place] [facility] PPSV23 (PNEUMOVAX) Branch Influenza Virus 2015-10-08 Completed [facility] of Vaccine Quad IM 3+ 00:00:00 [facility] Pneumococcal 2015-10-08 Completed [facility] o f Polysaccharide, 00:00:00 [place] [facility] PPSV23 (PNEUMOVAX) Branch Influenza Virus 2015-10-08 Completed [facility] of Vaccine Quad IM 3+ 00:00:00 [facility] Pneumococcal 2015-10-08 Completed [facility] o f Polysaccharide, 00:00:00 [place] [facility] PPSV23 (PNEUMOVAX) Branch Influenza Virus 2015-10-08 Completed [facility] of Vaccine Quad IM 3+ 00:00:00 [facility] Pneumococcal 2015-10-08 Completed [facility] o f Polysaccharide, 00:00:00 [place] [facility] PPSV23 (PNEUMOVAX) Branch Influenza Virus 2015-10-08 Completed [facility] of Vaccine Quad IM 3+ 00:00:00 [facility] Pneumococcal 2015-10-08 Completed [facility] o f Polysaccharide, 00:00:00 [place] [facility] PPSV23 (PNEUMOVAX) Branch Influenza Virus 2015-10-08 Completed [facility] of Vaccine Quad IM 3+ 00:00:00 [facility] Pneumococcal 2015-10-08 Completed [facility] o f Polysaccharide, 00:00:00 [place] [facility] PPSV23 (PNEUMOVAX) Branch Influenza Virus 2015-10-08 Completed [facility] of Vaccine Quad IM 3+ 00:00:00 [facility] Pneumococcal 2015-10-08 Completed [facility] o f Polysaccharide, 00:00:00 [place] [facility] PPSV23 (PNEUMOVAX) Branch Influenza Virus 2015-10-08 Completed [facility] of Vaccine Quad IM 3+ 00:00:00 [facility] Pneumococcal 2015-10-08 Completed [facility] o f Polysaccharide, 00:00:00 [place] [facility] PPSV23 (PNEUMOVAX) Branch Influenza Virus 2015-10-08 Completed [facility] of Vaccine Quad IM 3+ 00:00:00 [facility] Pneumococcal 2015-10-08 Completed [facility] o f Polysaccharide, 00:00:00 [place] [facility] PPSV23 (PNEUMOVAX) Branch Influenza Virus 2015-10-08 Completed [facility] of Vaccine Quad IM 3+ 00:00:00 [facility] Pneumococcal 2015-10-08 Completed [facility] o f Polysaccharide, 00:00:00 [place] [facility] PPSV23 (PNEUMOVAX) Branch Influenza Virus 2015-10-08 Completed [facility] of Vaccine Quad IM 3+ 00:00:00 [facility] Pneumococcal 2015-10-08 Completed [facility] o f Polysaccharide, 00:00:00 [place] [facility] PPSV23 (PNEUMOVAX) Branch Influenza Virus 2015-10-08 Completed [facility] of Vaccine Quad IM 3+ 00:00:00 [facility] Pneumococcal 2015-10-08 Completed [facility] o f Polysaccharide, 00:00:00 [place] [facility] PPSV23 (PNEUMOVAX) Branch Influenza Virus 2015-10-08 Completed [facility] of Vaccine Quad IM 3+ 00:00:00 [facility] Pneumococcal 2015-10-08 Completed [facility] o f Polysaccharide, 00:00:00 [place] [facility] PPSV23 (PNEUMOVAX) Branch Influenza Virus 2015-10-08 Completed [facility] of Vaccine Quad IM 3+ 00:00:00 [facility] Pneumococcal 2015-10-08 Completed [facility] o f Polysaccharide, 00:00:00 [place] [facility] PPSV23 (PNEUMOVAX) Branch Influenza Virus 2015-10-08 Completed [facility] of Vaccine Quad IM 3+ 00:00:00 [facility] Pneumococcal 2015-10-08 Completed [facility] o f Polysaccharide, 00:00:00 [place] [facility] PPSV23 (PNEUMOVAX) Branch Influenza Virus 2015-10-08 Completed [facility] of Vaccine Quad IM 3+ 00:00:00 [facility] Pneumococcal 2015-10-08 Completed [facility] o f Polysaccharide, 00:00:00 [place] [facility] PPSV23 (PNEUMOVAX) Branch Influenza Virus 2015-10-08 Completed [facility] of Vaccine Quad IM 3+ 00:00:00 [facility] Pneumococcal 2015-10-08 Completed [facility] o f Polysaccharide, 00:00:00 [place] [facility] PPSV23 (PNEUMOVAX) Branch Influenza Virus 2015-10-08 Completed [facility] of Vaccine Quad IM 3+ 00:00:00 [facility] Pneumococcal 2015-10-08 Completed [facility] o f Polysaccharide, 00:00:00 [place] [facility] PPSV23 (PNEUMOVAX) Branch Influenza Virus 2015-10-08 Completed [facility] of Vaccine Quad IM 3+ 00:00:00 [facility] Pneumococcal 2015-10-08 Completed [facility] o f Polysaccharide, 00:00:00 [place] [facility] PPSV23 (PNEUMOVAX) Branch Influenza Virus 2015-10-08 Completed [facility] Vaccine Quad IM 3+ 00:00:00 [facility] Pneumococcal 2015-10-08 Completed [facility] o f Polysaccharide, 00:00:00 [place] [facility] PPSV23 (PNEUMOVAX) Branch Influenza Virus 2015-10-08 Completed [facility] Vaccine Quad IM 3+ 00:00:00 [facility] Pneumococcal 2015-10-08 Completed [facility] o f Polysaccharide, 00:00:00 [place] [facility] PPSV23 (PNEUMOVAX) Branch Influenza Virus 2015-10-08 Completed [facility] Vaccine Quad IM 3+ 00:00:00 [facility] Pneumococcal 2015-10-08 Completed [facility] o f Polysaccharide, 00:00:00 [place] [facility] PPSV23 (PNEUMOVAX) Branch Influenza Virus 2015-10-08 Completed [facility] Vaccine Quad IM 3+ 00:00:00 [facility] Pneumococcal 2015-10-08 Completed [facility] o f Polysaccharide, 00:00:00 [place] [facility] PPSV23 (PNEUMOVAX) Branch Influenza Virus 2015-10-08 Completed Universit y of Vaccine Quad IM 3+ 00:00:00 [facility] Pneumococcal 2015-10-08 Completed University o f Polysaccharide, 00:00:00 [place] [facility] PPSV23 (PNEUMOVAX) Branch Influenza Virus 2015-10-08 Completed Universit y of Vaccine Quad IM 3+ 00:00:00 [facility] Pneumococcal 2015-10-08 Completed University o f Polysaccharide, 00:00:00 [place] [facility] PPSV23 (PNEUMOVAX) Branch Influenza Virus 2015-10-08 Completed Universit y of Vaccine Quad IM 3+ 00:00:00 [facility] Pneumococcal 2015-10-08 Completed University o f Polysaccharide, 00:00:00 [place] [facility] PPSV23 (PNEUMOVAX) Branch Influenza Virus 2015-10-08 Completed Universit y of Vaccine Quad IM 3+ 00:00:00 [facility] Pneumococcal 2015-10-08 Completed University o f Polysaccharide, 00:00:00 [place] [facility] PPSV23 (PNEUMOVAX) Branch Influenza Virus 2015-10-08 Completed Universit y of Vaccine Quad IM 3+ 00:00:00 [facility] Pneumococcal 2015-10-08 Completed University o f Polysaccharide, 00:00:00 [place] [facility] PPSV23 (PNEUMOVAX) Branch Influenza Virus 2015-10-08 Completed Universit y of Vaccine Quad IM 3+ 00:00:00 [facility] Pneumococcal 2015-10-08 Completed University o f Polysaccharide, 00:00:00 [place] [facility] PPSV23 (PNEUMOVAX) Branch Influenza Virus 2015-10-08 Completed Universit y of Vaccine Quad IM 3+ 00:00:00 [facility] Pneumococcal 2015-10-08 Completed University o f Polysaccharide, 00:00:00 [place] [facility] PPSV23 (PNEUMOVAX) Branch Influenza Virus 2015-10-08 Completed [facility]it y of Vaccine Quad IM 3+ 00:00:00 [facility] Pneumococcal 2015-10-08 Completed University o f Polysaccharide, 00:00:00 [place] [facility] PPSV23 (PNEUMOVAX) Branch Influenza Virus 2015-10-08 Completed [facility]it y of Vaccine Quad IM 3+ 00:00:00 [facility] Pneumococcal 2015-10-08 Completed University o f Polysaccharide, 00:00:00 [place] [facility] PPSV23 (PNEUMOVAX) Branch Influenza Virus 2015-10-08 Completed [facility]it y of Vaccine Quad IM 3+ 00:00:00 [facility] Pneumococcal 2015-10-08 Completed University o f Polysaccharide, 00:00:00 [place] [facility] PPSV23 (PNEUMOVAX) Branch Influenza Virus 2015-10-08 Completed [facility]it y of Vaccine Quad IM 3+ 00:00:00 [facility] Pneumococcal 2015-10-08 Completed University o f Polysaccharide, 00:00:00 [place] [facility] PPSV23 (PNEUMOVAX) Branch Influenza Virus 2015-10-08 Completed Universit y of Vaccine Quad IM 3+ 00:00:00 [facility] Pneumococcal 2015-10-08 Completed University o f Polysaccharide, 00:00:00 [place] [facility] PPSV23 (PNEUMOVAX) Branch Influenza Virus 2015-10-08 Completed [facility]it y of Vaccine Quad IM 3+ 00:00:00 [facility] Pneumococcal 2015-10-08 Completed University o f Polysaccharide, 00:00:00 [place] [facility] PPSV23 (PNEUMOVAX) Branch Influenza Virus 2015-10-08 Completed [facility]it y of Vaccine Quad IM 3+ 00:00:00 [facility] Pneumococcal 2015-10-08 Completed University o f Polysaccharide, 00:00:00 [place] [facility] PPSV23 (PNEUMOVAX) Branch Influenza Virus 2015-10-08 Completed Universit y of Vaccine Quad IM 3+ 00:00:00 [facility] Pneumococcal 2015-10-08 Completed University o f Polysaccharide, 00:00:00 [place] [facility] PPSV23 (PNEUMOVAX) Branch Influenza Virus 2015-10-08 Completed [facility]it y of Vaccine Quad IM 3+ 00:00:00 [facility] Pneumococcal 2015-10-08 Completed University o f Polysaccharide, 00:00:00 [place] [facility] PPSV23 (PNEUMOVAX) Branch Influenza Virus 2015-10-08 Completed Universit y of Vaccine Quad IM 3+ 00:00:00 [facility] Pneumococcal 2015-10-08 Completed University o f Polysaccharide, 00:00:00 [place] [facility] PPSV23 (PNEUMOVAX) Branch Influenza Virus 2015-10-08 Completed [facility]it y of Vaccine Quad IM 3+ 00:00:00 [facility] Pneumococcal 2015-10-08 Completed University o f Polysaccharide, 00:00:00 [place] [facility] PPSV23 (PNEUMOVAX) Branch Influenza Virus 2015-10-08 Completed [facility]it y of Vaccine Quad IM 3+ 00:00:00 [facility] Pneumococcal 2015-10-08 Completed University o f Polysaccharide, 00:00:00 [place] [facility] PPSV23 (PNEUMOVAX) Branch Influenza Virus 2015-10-08 Completed [facility]it y of Vaccine Quad IM 3+ 00:00:00 [facility] Pneumococcal 2015-10-08 Completed University o f Polysaccharide, 00:00:00 [place] [facility] PPSV23 (PNEUMOVAX) Branch Influenza Virus 2015-10-08 Completed [facility]it y of Vaccine Quad IM 3+ 00:00:00 [facility] Pneumococcal 2015-10-08 Completed University o f Polysaccharide, 00:00:00 [place] [facility] PPSV23 (PNEUMOVAX) Branch Influenza Virus 2015-10-08 Completed Universit y of Vaccine Quad IM 3+ 00:00:00 [facility] Pneumococcal 2015-10-08 Completed University o f Polysaccharide, 00:00:00 [place] [facility] PPSV23 (PNEUMOVAX) Branch Influenza Virus 2015-10-08 Completed [facility]it y of Vaccine Quad IM 3+ 00:00:00 [facility] Pneumococcal 2015-10-08 Completed University o f Polysaccharide, 00:00:00 [place] [facility] PPSV23 (PNEUMOVAX) Branch Influenza Virus 2015-10-08 Completed [facility]it y of Vaccine Quad IM 3+ 00:00:00 [facility] Pneumococcal 2015-10-08 Completed University o f Polysaccharide, 00:00:00 [place] [facility] PPSV23 (PNEUMOVAX) Branch Influenza Virus 2015-10-08 Completed [facility]it y of Vaccine Quad IM 3+ 00:00:00 [facility] Pneumococcal 2015-10-08 Completed University o f Polysaccharide, 00:00:00 [place] [facility] PPSV23 (PNEUMOVAX) Branch Influenza Virus 2015-10-08 Completed [facility]it y of Vaccine Quad IM 3+ 00:00:00 [facility] Pneumococcal 2015-10-08 Completed University o f Polysaccharide, 00:00:00 [place] [facility] PPSV23 (PNEUMOVAX) Branch Influenza Virus 2015-10-08 Completed Universit y of Vaccine Quad IM 3+ 00:00:00 [facility] Pneumococcal 2015-10-08 Completed University o f Polysaccharide, 00:00:00 [place] [facility] PPSV23 (PNEUMOVAX) Branch Influenza Virus 2015-10-08 Completed [facility]it y of Vaccine Quad IM 3+ 00:00:00 [facility] Pneumococcal 2015-10-08 Completed University o f Polysaccharide, 00:00:00 [place] [facility] PPSV23 (PNEUMOVAX) Branch Influenza Virus 2015-10-08 Completed Universit y of Vaccine Quad IM 3+ 00:00:00 [facility] Pneumococcal 2015-10-08 Completed University o f Polysaccharide, 00:00:00 [place] [facility] PPSV23 (PNEUMOVAX) Branch Influenza Virus 2015-10-08 Completed Universit y of Vaccine Quad IM 3+ 00:00:00 [facility] Pneumococcal 2015-10-08 Completed University o f Polysaccharide, 00:00:00 [place] [facility] PPSV23 (PNEUMOVAX) Branch Influenza Virus 2015-10-08 Completed Universit y of Vaccine Quad IM 3+ 00:00:00 [facility] Pneumococcal 2015-10-08 Completed University o f Polysaccharide, 00:00:00 [place] [facility] PPSV23 (PNEUMOVAX) Branch Influenza Virus 2015-10-08 Completed Universit y of Vaccine Quad IM 3+ 00:00:00 [facility] Pneumococcal 2015-10-08 Completed University o f Polysaccharide, 00:00:00 [place] [facility] PPSV23 (PNEUMOVAX) Branch Influenza Virus 2015-10-08 Completed Universit y of Vaccine Quad IM 3+ 00:00:00 [facility] Pneumococcal 2015-10-08 Completed University o f Polysaccharide, 00:00:00 [place] [facility] PPSV23 (PNEUMOVAX) Branch Influenza Virus 2015-10-08 Completed Universit y of Vaccine Quad IM 3+ 00:00:00 [facility] Pneumococcal 2015-10-08 Completed University o f Polysaccharide, 00:00:00 [place] [facility] PPSV23 (PNEUMOVAX) Branch Influenza Virus 2015-10-08 Completed Universit y of Vaccine Quad IM 3+ 00:00:00 [facility] Pneumococcal 2015-10-08 Completed University o f Polysaccharide, 00:00:00 [place] [facility] PPSV23 (PNEUMOVAX) Branch Influenza Virus 2015-10-08 Completed Universit y of Vaccine Quad IM 3+ 00:00:00 [facility] Pneumococcal 2015-10-08 Completed University o f Polysaccharide, 00:00:00 [place] [facility] PPSV23 (PNEUMOVAX) Branch Influenza Virus 2015-10-08 Completed Universit y of Vaccine Quad IM 3+ 00:00:00 [facility] Pneumococcal 2015-10-08 Completed University o f Polysaccharide, 00:00:00 [place] [facility] PPSV23 (PNEUMOVAX) Branch Influenza Virus 2015-10-08 Completed Universit y of Vaccine Quad IM 3+ 00:00:00 [facility] Pneumococcal 2015-10-08 Completed University o f Polysaccharide, 00:00:00 [place] [facility] PPSV23 (PNEUMOVAX) Branch Influenza Virus 2015-10-08 Completed Universit y of Vaccine Quad IM 3+ 00:00:00 [facility] Pneumococcal 2015-10-08 Completed University o f Polysaccharide, 00:00:00 [place] [facility] PPSV23 (PNEUMOVAX) Branch Influenza Virus 2015-10-08 Completed Universit y of Vaccine Quad IM 3+ 00:00:00 [facility] Pneumococcal 2015-10-08 Completed University o f Polysaccharide, 00:00:00 [place] [facility] PPSV23 (PNEUMOVAX) Branch Influenza Virus 2015-10-08 Completed Universit y of Vaccine Quad IM 3+ 00:00:00 [facility] Pneumococcal 2015-10-08 Completed University o f Polysaccharide, 00:00:00 [place] [facility] PPSV23 (PNEUMOVAX) Branch Influenza Virus 2015-10-08 Completed Universit y of Vaccine Quad IM 3+ 00:00:00 [facility] Pneumococcal 2015-10-08 Completed University o f Polysaccharide, 00:00:00 [place] [facility] PPSV23 (PNEUMOVAX) Branch Influenza Virus 2015-10-08 Completed Universit y of Vaccine Quad IM 3+ 00:00:00 [facility] Pneumococcal 2015-10-08 Completed University o f Polysaccharide, 00:00:00 [place] [facility] PPSV23 (PNEUMOVAX) Branch Influenza Virus 2015-10-08 Completed Universit y of Vaccine Quad IM 3+ 00:00:00 [facility] Pneumococcal 2015-10-08 Completed University o f Polysaccharide, 00:00:00 [place] [facility] PPSV23 (PNEUMOVAX) Branch Influenza Virus 2015-10-08 Completed Universit y of Vaccine Quad IM 3+ 00:00:00 [facility] Pneumococcal 2015-10-08 Completed University o f Polysaccharide, 00:00:00 [place] [facility] PPSV23 (PNEUMOVAX) Branch Influenza Virus 2015-10-08 Completed Universit y of Vaccine Quad IM 3+ 00:00:00 [facility] Pneumococcal 2015-10-08 Completed University o f Polysaccharide, 00:00:00 [place] [facility] PPSV23 (PNEUMOVAX) Branch Influenza Virus 2015-10-08 Completed Universit y of Vaccine Quad IM 3+ 00:00:00 [facility] Pneumococcal 2015-10-08 Completed University o f Polysaccharide, 00:00:00 [place] [facility] PPSV23 (PNEUMOVAX) Branch Influenza Virus 2015-10-08 Completed Universit y of Vaccine Quad IM 3+ 00:00:00 [facility] Pneumococcal 2015-10-08 Completed University o f Polysaccharide, 00:00:00 [place] [facility] PPSV23 (PNEUMOVAX) Branch Influenza Virus 2015-10-08 Completed Universit y of Vaccine Quad IM 3+ 00:00:00 [facility] Pneumococcal 2015-10-08 Completed University o f Polysaccharide, 00:00:00 [place] [facility] PPSV23 (PNEUMOVAX) Branch Influenza Virus 2015-10-08 Completed Universit y of Vaccine Quad IM 3+ 00:00:00 [facility] Pneumococcal 2015-10-08 Completed University o f Polysaccharide, 00:00:00 [place] [facility] PPSV23 (PNEUMOVAX) Branch Influenza Virus 2015-10-08 Completed Universit y of Vaccine Quad IM 3+ 00:00:00 [facility] Pneumococcal 2015-10-08 Completed University o f Polysaccharide, 00:00:00 [place] [facility] PPSV23 (PNEUMOVAX) Branch Influenza Virus 2015-10-08 Completed Universit y of Vaccine Quad IM 3+ 00:00:00 [facility] Pneumococcal 2015-10-08 Completed University o f Polysaccharide, 00:00:00 [place] [facility] PPSV23 (PNEUMOVAX) Branch Influenza Virus 2015-10-08 Completed Universit y of Vaccine Quad IM 3+ 00:00:00 [facility] Pneumococcal 2015-10-08 Completed University o f Polysaccharide, 00:00:00 [place] [facility] PPSV23 (PNEUMOVAX) Branch Influenza Virus 2015-10-08 Completed Universit y of Vaccine Quad IM 3+ 00:00:00 [facility] Pneumococcal 2015-10-08 Completed University o f Polysaccharide, 00:00:00 [place] [facility] PPSV23 (PNEUMOVAX) Branch Influenza Virus 2015-10-08 Completed Universit y of Vaccine Quad IM 3+ 00:00:00 [facility] Pneumococcal 2015-10-08 Completed University o f Polysaccharide, 00:00:00 [place] [facility] PPSV23 (PNEUMOVAX) Branch Influenza Virus 2015-10-08 Completed Universit y of Vaccine Quad IM 3+ 00:00:00 [facility] Pneumococcal 2015-10-08 Completed University o f Polysaccharide, 00:00:00 [place] [facility] PPSV23 (PNEUMOVAX) Branch Influenza Virus 2015-10-08 Completed Universit y of Vaccine Quad IM 3+ 00:00:00 [facility] Pneumococcal 2015-10-08 Completed University o f Polysaccharide, 00:00:00 [place] [facility] PPSV23 (PNEUMOVAX) Branch Influenza Virus 2015-10-08 Completed Universit y of Vaccine Quad IM 3+ 00:00:00 [facility] Pneumococcal 2015-10-08 Completed University o f Polysaccharide, 00:00:00 [place] [facility] PPSV23 (PNEUMOVAX) Branch Influenza Virus 2015-10-08 Completed Universit y of Vaccine Quad IM 3+ 00:00:00 [facility] Vital Signs Vital Name Observation Time Observation Value Comments Source Systolic blood 2023-03-03 144 mm[Hg] [facility] pressure 20:43:00 [facility] Diastolic blood 2023-03-03 89 mm[Hg] [place] o f pressure 20:43:00 [facility] Heart rate 2023-03-03 88 /min [facility] 20:43:00 [facility] Body temperature 2023-03-03 36.83 [place] [facility] 20:43:00 [facility] Respiratory rate 2023-03-03 20 /min [facility] 20:43:00 [facility] Oxygen saturation 2023-03-03 97 /min [facility] in Arterial blood 20:43:00 [facility] by Pulse oximetry [place] Body height 2023-02-23 167.6 cm [facility] 14:22:00 [facility] Body weight 2023-02-23 91.4 kg University of 14:22:00 [facility] BMI 2023-02-23 32.52 kg/m2 University of 14:22:00 [facility] Heart rate 2023-02-21 87 /min University of 20:54:00 [facility] Respiratory rate 2023-02-21 18 /min University of 20:54:00 [facility] Oxygen saturation 2023-02-21 100 /min University of in Arterial blood 20:54:00 [place] [facility] by Pulse oximetry Branch Body weight 2023-02-21 90.765 kg University of 20:41:00 [facility] BMI 2023-02-21 36.60 kg/m2 University of 20:41:00 [facility] Systolic blood 2023-02-21 131 mm[Hg] University of pressure 20:07:00 [facility] Diastolic blood 2023-02-21 73 mm[Hg] University o f pressure 20:07:00 [facility] Body temperature 2023-02-21 36.78 [place] University of 20:07:00 [facility] Body height 2023-02-10 157.5 cm University of 14:46:00 [facility] Systolic blood 2023-02-05 133 mm[Hg] University of pressure 21:00:00 [facility] Diastolic blood 2023-02-05 68 mm[Hg] University o f pressure 21:00:00 [facility] Heart rate 2023-02-05 81 /min University of 21:00:00 [facility] Body temperature 2023-02-05 36.33 [place] University of 21:00:00 [facility] Respiratory rate 2023-02-05 18 /min University of 21:00:00 [facility] Oxygen saturation 2023-02-05 92 /min University of in Arterial blood 21:00:00 [place] [facility] by Pulse oximetry Branch Body weight 2023-02-05 96.979 kg University of 09:00:00 [facility] BMI 2023-02-05 34.51 kg/m2 University of 09:00:00 [facility] Body height 2023-01-30 167.6 cm University of 17:40:00 [facility] Systolic blood 2023-01-30 131 mm[Hg] University of pressure 17:03:[address] [facility] [place] [place] Branch Diastolic blood 2023-01-30 82 mm[Hg] University o f pressure 17:03:00 [facility] Heart rate 2023-01-30 105 /min University of 17:03:00 [facility] Body temperature 2023-01-30 36.67 [place] University of 17:03:00 [facility] Oxygen saturation 2023-01-30 80 /min 3L [place] University of in Arterial blood 17:03:00 [facility] by Pulse oximetry Branch Systolic blood 2023-01-30 131 mm[Hg] University of pressure 16:40:00 [facility] Diastolic blood 2023-01-30 82 mm[Hg] University o f pressure 16:40:00 [facility] Heart rate 2023-01-30 103 /min University of 16:40:00 [facility] Body temperature 2023-01-30 36.67 [place] University of 16:40:00 [facility] Body weight 2023-01-30 95.709 kg University of 16:40:00 [facility] BMI 2023-01-30 34.06 kg/m2 University of 16:40:00 [facility] Oxygen saturation 2023-01-30 79 /min University of in Arterial blood 16:40:00 [facility] by Pulse oximetry Branch Systolic blood 2023-01-24 152 mm[Hg] University of pressure 20:27:00 [facility] Diastolic blood 2023-01-24 73 mm[Hg] University o f pressure 20:27:00 [facility] Heart rate 2023-01-24 83 /min University of 20:27:00 [facility] Body temperature 2023-01-24 36.67 [place] University of 20:27:00 [facility] Respiratory rate 2023-01-24 20 /min University of 20:27:00 [facility] Oxygen saturation 2023-01-24 97 /min University of in Arterial blood 20:27:00 [facility] by Pulse oximetry Branch Body weight 2023-01-22 96.48 kg University of 08:59:00 [facility] BMI 2023-01-22 34.33 kg/m2 University of 08:59:00 [facility] Body height 2023-01-20 167.6 cm University of 22:24:00 [facility] Body temperature 2023-01-13 35.67 [place] University of 19:26:00 [facility] Body weight 2023-01-13 101.878 kg University of 19:26:00 [facility] BMI 2023-01-13 36.25 kg/m2 University of 19:26:00 [facility] Systolic blood 2023-01-06 166 mm[Hg] University of pressure 15:05:[address] [facility] [place] [place] Branch Diastolic blood 2023-01-06 16 mm[Hg] University o f pressure 15:05:00 [facility] Heart rate 2023-01-06 82 /min University of 15:05:[address] [facility] [place] [place] Branch Respiratory rate 2023-01-06 16 /min University of 15:05:00 [facility] Oxygen saturation 2023-01-06 95 /min [place] 2L University of in Arterial blood 15:05:00 [facility] dk by Pulse oximetry Branch Systolic blood 2022-12-26 136 mm[Hg] University of pressure 20:27:00 [facility] Diastolic blood 2022-12-26 80 mm[Hg] University o f pressure 20:27:00 [facility] Heart rate 2022-12-26 78 /min University of 20:27:00 [facility] Body height 2022-12-26 167.6 cm University of 20:27:00 [facility] Body weight 2022-12-26 100.744 kg University of 20:27:00 [facility] BMI 2022-12-26 35.85 kg/m2 University of 20:27:00 [facility] Oxygen saturation 2022-12-26 90 /min University of in Arterial blood 20:27:00 [facility] dk by Pulse oximetry Branch Systolic blood 2022-12-23 147 mm[Hg] University of pressure 19:13:00 [facility] Diastolic blood 2022-12-23 76 mm[Hg] University o f pressure 19:13:00 [facility] Heart rate 2022-12-23 75 /min University of 19:08:00 [facility] Body temperature 2022-12-23 36.5 [place] University of 19:08:00 [facility] Respiratory rate 2022-12-23 18 /min University of 19:08:00 [facility] Body height 2022-12-23 167.6 cm University of 19:08:00 [facility] Body weight 2022-12-23 101.606 kg University of 19:08:00 [facility] BMI 2022-12-23 36.15 kg/m2 University of 19:08:00 [facility] Oxygen saturation 2022-12-23 91 /min University of in Arterial blood 19:08:00 [place] [facility] by Pulse oximetry Branch Systolic blood 2022-12-23 169 mm[Hg] University of pressure 15:33:00 [facility] Diastolic blood 2022-12-23 80 mm[Hg] University o f pressure 15:33:00 [facility] Heart rate 2022-12-23 85 /min University of 15:33:00 [facility] Respiratory rate 2022-12-23 23 /min University of 15:31:00 [facility] Body height 2022-12-23 167.6 cm University of 15:31:00 [facility] Body weight 2022-12-23 101.923 kg University of 15:31:00 [facility] BMI 2022-12-23 36.27 kg/m2 University of 15:31:00 [facility] Oxygen saturation 2022-12-23 82 /min 92% when 2L [place] Universi [facility] of in Arterial blood 15:31:00 applied [place] [facility] by Pulse oximetry Branch Body weight 2022-12-22 101.152 kg University of 15:09:00 [facility] BMI 2022-12-22 35.99 kg/m2 University of 15:09:00 [facility] Systolic blood 2022-12-12 169 mm[Hg] University of pressure 21:04:00 [facility] Diastolic blood 2022-12-12 82 mm[Hg] University o f pressure 21:04:00 [facility] Oxygen saturation 2022-12-12 98 /min After 2L Oxygen Univers ity of in Arterial blood 21:04:00 for 5 minutes. [facility] dical by Pulse oximetry Branch Heart rate 2022-12-12 68 /min University of 21:03:00 [facility] Respiratory rate 2022-12-12 20 /min University of 21:03:00 [facility] Body height 2022-12-12 167.6 cm University of 21:03:00 [facility] Body weight 2022-12-12 101.152 kg University of 21:03:00 [facility] BMI 2022-12-12 35.99 kg/m2 University of 21:03:00 [facility] Systolic blood 2022-12-08 135 mm[Hg] University of pressure 17:27:00 [place] [facility] Diastolic blood 2022-12-08 70 mm[Hg] University o f pressure 17:27:00 [facility] Heart rate 2022-12-08 65 /min University of 17::00 [facility] Body temperature 2022-12-08 36.5 [place]anda University of :24:00 [facility] Respiratory rate 2022-12-08 20 /min University of :24:00 [facility] Body height 2022-12-08 167.6 cm University of : [facility] Body weight 2022-12-08 100.336 kg University of :: [facility] BMI 2022-12-08 35.70 kg/m2 University of ::00 [facility] Oxygen saturation 2022-12-08 95 /min [facility] in Arterial blood :: [facility] by Pulse oximetry [place] Systolic blood 2022-12-06 136 mm[Hg] manual University of pressure 20:00:00 [facility] Diastolic blood 2022-12-06 66 mm[Hg] manual University o f pressure 20:00:00 [facility] Heart rate 2022-12-06 63 /min University of 20:00:00 [facility] Respiratory rate 2022-12-06 20 /min University of 20:00:00 [facility] Body weight 2022-12-06 101.152 kg University of 20:00:00 [facility] BMI 2022-12-06 35.99 kg/m2 University of :00:00 [facility] Oxygen saturation 2022-12-06 85 /min arrived on RA; [facility] of in Arterial blood 20:00:00 exercised on 2 [facility] dicky by Pulse oximetry l/m con't NC due Branch to SpO2<90% Systolic blood 2022-12-01 138 mm[Hg] manual University of pressure 20:00:00 [facility] Diastolic blood 2022-12-01 76 mm[Hg] manual University o f pressure 20:00:00 [facility] Heart rate 2022-12-01 59 /min University of 20:00:00 [facility] Respiratory rate 2022-12-01 20 /min University of 20:00:00 [facility] Body weight 2022-12-01 100.88 kg University of 20:00:00 [facility] BMI 2022-12-01 35.90 kg/m2 University of 20:00:[address] [facility] [place] Branch Oxygen saturation 2022-12-01 95 /min arrived on RA; Universi ty of in Arterial blood 20:00:00 exercised on RA [place] [facility] by Pulse oximetry till SCIFIT due Branch to SpO2 85% after warm ups; put on 2 l/m NC Systolic blood 2022-11-29 146 mm[Hg] manual; taken University o f pressure 20:00:00 twice; reports [place] [facility] compliance with Branch meds; concern over rain/storm Diastolic blood 2022-11-29 62 mm[Hg] manual; taken University of pressure 20:00:00 twice; reports [place] [facility] compliance with Branch meds; concern over rain/storm Heart rate 2022-11-29 74 /min University of 20:00:00 [place] [facility] Respiratory rate 2022-11-29 20 /min University of 20:00:00 [place] [facility] Body weight 2022-11-29 100.608 kg University of 20:00:[address] [facility] [place] [facility] BMI 2022-11-29 35.80 kg/m2 University of 20:00:[address] [facility] [place] [facility] Oxygen saturation 2022-11-29 92 /min arrived on RA; Universi ty of in Arterial blood 20:00:00 exercised on 2 [facility] dical by Pulse oximetry l/m NC due to Branch warm up SpO2 85% Systolic blood 2022-11-22 126 mm[Hg] manual University of pressure 20:00:00 [place] [facility] Diastolic blood 2022-11-22 64 mm[Hg] manual University o f pressure 20:00:00 [place] [facility] Heart rate 2022-11-22 66 /min University of 20:00:00 [place] [facility] Respiratory rate 2022-11-22 22 /min University of 20:00:00 [place] [facility] Body weight 2022-11-22 102.241 kg University of 20:00:00 [place] [facility] BMI 2022-11-22 36.38 kg/m2 University of 20:00:[address] [facility] [place] [facility] Oxygen saturation 2022-11-22 85 /min arrived on RA; Universi ty of in Arterial blood 20:00:00 placed on con't [facility] edical by Pulse oximetry 2 l/m NC [...] rate 2022-11-15 52 /min University of 20:00:00 [facility] Respiratory rate 2022-11-15 22 /min University of 20:00:00 [facility] Body weight 2022-11-15 103.42 kg University of 20:00:00 [facility] BMI 2022-11-15 36.80 kg/m2 University of 20:00:00 [facility] Oxygen saturation 2022-11-15 86 /min RA on arrival; [facility] of in Arterial blood 20:00:00 SpO2>90% after [place] [facility] by Pulse oximetry ~2-3 mins rest Branch on RA; exercised on 2l/m con't [place] Systolic blood 2022-11-11 171 mm[Hg] University of pressure 15:39:00 [facility] Diastolic blood 2022-11-11 70 mm[Hg] University o f pressure 15:39:00 [facility] Heart rate 2022-11-11 55 /min University of 15:39:00 [facility] Oxygen saturation 2022-11-11 99 /min [facility] in Arterial blood 15:39:00 [facility] by Pulse oximetry Branch Respiratory rate 2022-11-11 22 /min University of 15:36:00 [facility] Body height 2022-11-11 167.6 cm University of 15:36:00 [facility] Body weight 2022-11-11 103.012 kg University of 15:36:00 [facility] BMI 2022-11-11 36.65 kg/m2 University of 15:36:00 [facility] Systolic blood 2022-11-03 128 mm[Hg] University of pressure 19:46:00 [facility] Diastolic blood 2022-11-03 70 mm[Hg] University o f pressure 19:46:00 [facility] Heart rate 2022-11-03 64 /min University of 19:46:00 [facility] Body weight 2022-11-03 103.329 kg University of 19:46:00 [facility] BMI 2022-11-03 36.77 kg/m2 University of 19:46:00 [facility] Oxygen saturation 2022-11-03 95 /min University of in Arterial blood 19:46:00 [place] [facility] by Pulse oximetry Branch Systolic blood 2022-11-01 130 mm[Hg] University of pressure 19:52:00 [facility] Diastolic blood 2022-11-01 68 mm[Hg] University o f pressure 19:52:[address] [facility] [place] [facility] Heart rate 2022-11-01 63 /min University of 19:52:00 [facility] Body weight 2022-11-01 104.237 kg University of 19:52:00 [facility] BMI 2022-11-01 37.09 kg/m2 University of 19:52:00 [facility] Oxygen saturation 2022-11-01 94 /min [place] of in Arterial blood 19:52:00 [facility] by Pulse oximetry Branch Systolic blood 2022-10-27 142 mm[Hg] manual; pt University of pressure 19:00:00 rushing to get [place] [facility] into [facility] room Branch Diastolic blood 2022-10-27 68 mm[Hg] manual; pt University o f pressure 19:00:00 rushing to get [place] [facility] into [facility] room Branch Heart rate 2022-10-27 60 /min University of 19:00:[address] [facility] [facility] Respiratory rate 2022-10-27 22 /min University of :00:00 [facility] Body weight 2022-10-27 104.872 kg University of 19:00:00 [facility] BMI 2022-10-27 37.32 kg/m2 University of 19:00:00 [facility] Oxygen saturation 2022-10-27 82 /min arrived on RA; Universi ty of in Arterial blood 19:00:00 reports ran out [facility] by Pulse oximetry of small oxygen Branch tank oxygen; placed pt on con't [place] 2l/m 2/3 modalities today Systolic blood 2022-10-25 132 mm[Hg] manual University of pressure 20:00:00 [facility] Diastolic blood 2022-10-25 70 mm[Hg] manual University o f pressure 20:00:00 [facility] Heart rate 2022-10-25 57 /min University of 20:00:00 [facility] Respiratory rate 2022-10-25 22 /min University of 20:00:00 [facility] Body weight 2022-10-25 104.872 kg University of 20:00:[address] [facility] Branch BMI 2022-10-25 37.32 kg/m2 University of 20:00:[address] [facility] [facility] Oxygen saturation 2022-10-25 97 /min arrived on RA; Universi ty of in Arterial blood 20:00:00 exercised on RA [facility] by Pulse oximetry Branch Systolic blood 2022-10-13 120 mm[Hg] manual cuff University of pressure 17:44:00 [place] [facility] Diastolic blood 2022-10-13 58 mm[Hg] manual cuff University o f pressure 17:44:[address] [facility] [facility] Heart rate 2022-10-13 53 /min University of 17:44:[address] [facility] Respiratory rate 2022-10-13 22 /min University of 17:44:[address] [facility] [facility] Body weight 2022-10-13 106.777 kg University of 17:44:00 [facility] BMI 2022-10-13 37.99 kg/m2 University of 17:44:[address] [facility] [facility] Oxygen saturation 2022-10-13 95 /min arrived on RA; Universi ty of in Arterial blood 17:44:00 reports has [place] [facility] by Pulse oximetry oxygen at home, Branch doesn't use often. Systolic blood 2022-09-27 161 mm[Hg] University of pressure 19:23:[address] [facility] Diastolic blood 2022-09-27 79 mm[Hg] University o f pressure 19:23:00 [facility] Heart rate 2022-09-27 62 /min University of 19:17:00 [facility] Body temperature 2022-09-27 35.83 [place] University of 19:17:[address] [facility] Respiratory rate 2022-09-27 18 /min University of 19:17:[address] [facility] Body height 2022-09-27 167.6 cm University of 19:17:[address] [facility] Body weight 2022-09-27 107.82 kg University of 19:17:00 [facility] BMI 2022-09-27 38.37 kg/m2 University of 19:17:[address] [facility] Oxygen saturation 2022-09-27 93 /min University of in Arterial blood 19:17:00 [place] [facility] by Pulse oximetry Branch Systolic blood 2022-09-23 188 mm[Hg] University of pressure 20:25:00 [facility] Diastolic blood 2022-09-23 80 mm[Hg] University o f pressure 20:25:00 [facility] Heart rate 2022-09-23 54 /min University of 20:25:00 [facility] Body temperature 2022-09-23 36.06 [place]anda University of 20:23:00 [facility] Body height 2022-09-23 167.6 cm University of 20:23:00 [facility] Body weight 2022-09-23 107.457 kg University of 20:23:00 [facility] BMI 2022-09-23 38.24 kg/m2 University of 20:23:00 [facility] Oxygen saturation 2022-09-23 96 /min University of in Arterial blood 20:23:00 [facility] dk by Pulse oximetry Branch Systolic blood 2022-09-15 183 mm[Hg] University of pressure 17:39:00 [facility] Diastolic blood 2022-09-15 75 mm[Hg] University o f pressure 17:39:00 [facility] Heart rate 2022-09-15 58 /min University of 17:39:00 [facility] Oxygen saturation 2022-09-15 94 /min University of in Arterial blood 17:39:00 [facility] dk by Pulse oximetry Branch Respiratory rate 2022-09-15 17 /min University of 17:33:00 [facility] Body height 2022-09-15 167.6 cm University of 17:33:00 [facility] Body weight 2022-09-15 107.049 kg University of 17:33:00 [facility] BMI 2022-09-15 38.09 kg/m2 University of 17:33:00 [facility] Systolic blood 2022-09-06 168 mm[Hg] patients wrist University of pressure 18:23:00 cuff [facility] Diastolic blood 2022-09-06 81 mm[Hg] patients wrist University of pressure 18:23:00 cuff [facility] Heart rate 2022-09-06 54 /min University of 18:11:00 [facility] Respiratory rate 2022-09-06 20 /min University of 18:11:00 [facility] Body height 2022-09-06 167.6 cm University of 18:11:00 [facility] Body weight 2022-09-06 109.317 kg University of 18:11:00 [facility] BMI 2022-09-06 38.90 kg/m2 University of 18:11:00 [facility] Oxygen saturation 2022-09-06 95 /min University of in Arterial blood 18:11:00 [facility] by Pulse oximetry Branch Body temperature 2022-09-02 35.78 [place] University of 18:27:00 [facility] Body height 2022-09-02 14.2 cm University of 18:27:00 [facility] Body weight 2022-09-02 108.41 kg University of 18:27:00 [facility] BMI 2022-09-02 5358.27 kg/m2 University of 18:27:00 [facility] Systolic blood 2022-08-25 198 mm[Hg] University of pressure 20:52:00 [facility] Diastolic blood 2022-08-25 94 mm[Hg] University o f pressure 20:52:00 [facility] Heart rate 2022-08-25 65 /min University of 20:52:00 [facility] Respiratory rate 2022-08-25 18 /min University of 20:52:00 [facility] Body weight 2022-08-25 107.956 kg University of 20:52:00 [facility] BMI 2022-08-25 38.41 kg/m2 University of 20:52:00 [facility] Oxygen saturation 2022-08-25 94 /min University of in Arterial blood 20:52:00 [facility] by Pulse oximetry Branch Systolic blood 2022-08-23 198 mm[Hg] University of pressure 19:12:00 [facility] Diastolic blood 2022-08-23 76 mm[Hg] University o f pressure 19:12:00 [facility] Heart rate 2022-08-23 57 /min University of 19:12:00 [facility] Respiratory rate 2022-08-23 18 /min University of 19:12:00 [facility] Oxygen saturation 2022-08-23 97 /min University of in Arterial blood 19:12:00 [facility] by Pulse oximetry Branch Body temperature 2022-08-23 36 [place]anda University of 19:09:00 [facility] Body weight 2022-08-23 108.138 kg University of 19:09:00 [facility] BMI 2022-08-23 38.48 kg/m2 University of 19:09:00 [facility] Systolic blood 2022-07-27 185 mm[Hg] University of pressure 16:29:00 [facility] Diastolic blood 2022-07-27 77 mm[Hg] University o f pressure 16:29:00 [facility] Heart rate 2022-07-27 56 /min University of 16:29:00 [facility] Oxygen saturation 2022-07-27 96 /min University of in Arterial blood 16:29:00 [facility] dk by Pulse oximetry Branch Body height 2022-07-27 167.6 cm University of 16:27:00 [facility] Body weight 2022-07-27 111.902 kg University of 16:27:00 [facility] BMI 2022-07-27 39.82 kg/m2 University of 16:27:00 [facility] Systolic blood 2022-07-18 152 mm[Hg] University of pressure 18:10:00 [facility] Diastolic blood 2022-07-18 69 mm[Hg] University o f pressure 18:10:00 [facility] Heart rate 2022-07-18 57 /min University of 18:10:00 [facility] Oxygen saturation 2022-07-18 96 /min University of in Arterial blood 18:10:00 [facility] by Pulse oximetry Branch Body temperature 2022-07-18 36.06 [place] University of 18:08:00 [facility] Respiratory rate 2022-07-18 19 /min University of 18:08:00 [facility] Body weight 2022-07-18 111.676 kg University of 18:08:00 [facility] BMI 2022-07-18 39.74 kg/m2 University of 18:08:00 [facility] Heart rate 2023-02-12 80 /min University of 16:45:00 [facility] Respiratory rate 2023-02-12 20 /min University of 16:45:00 [facility] Oxygen saturation 2023-02-12 95 /min University of in Arterial blood 16:45:00 [facility] dk by Pulse oximetry Branch Systolic blood 2023-02-12 144 mm[Hg] University of pressure 12:55:00 [place] [facility] Diastolic blood 2023-02-12 82 mm[Hg] University o f pressure 12:55:00 [facility] Body temperature 2023-02-12 36.72 [place]anda University of 12:55:00 [facility] Body weight 2023-02-12 93.985 kg University of 08:23:00 [facility] BMI 2023-02-12 37.90 kg/m2 [facility] 08:23:00 [facility] Body height 2023-02-10 157.5 cm [facility] 14:46:00 [facility] Procedures Procedure Date / Time Performing Clinician Source Performed EXTERNAL PROVIDER RECORDS 2023-03-08 05:01:00 Doctor Unassigned, [facility] [place] [facility] POCT GLUCOSE (AUTOMATED) 2023-03-03 17:59:00 [facility] 2023-03-03 16:41:00 [facility] ([facility]ATED) 2023-03-03 13:12:00 [facility] (AUTOMATED) 2023-03-03 11:44:00 [facility] PO[facility]UCOSE (AUTOMATED) 2023-03-03 10:52:00 Mike Campos Uni [facility] PHOSPHORUS 2023-03-03 09:19:00 Nevaeh [facility] MAGNESIUM 2023-03-03 09:19:00 Nevaeh [facility] BASIC METABOLIC PANEL (NA, 2023-03-03 09:19:00 Ashu Herring [facility] K, CL, CO2, GLUCOSE, BUN, Medica l Branch CREATININE, CA) CBC WITH DIFF 2023-03-03 09:19:00 Nevaeh [facility] POCT GLUCOSE (AUTOMATED) 2023-03-03 02:11:00 Mike Campos Uni [facility] POCT GLUCOSE (AUTOMATED) 2023-03-02 22:28:00 Mike Campos Uni [facility] POCT GLUCOSE (AUTOMATED) 2023-03-02 16:48:00 Mike Campos Uni [facility] POCT GLUCOSE (AUTOMATED) 2023-03-02 12:46:00 [facility] PO[facility]SE (AUTOMATED) 2023-03-02 12:05:00 Mike Campos Uni versity [facility] PHOSPHORUS 2023-03-02 09:10:00 Nevaeh [facility] MAGNESIUM 2023-03-02 09:10:00 Nevaeh [facility] BASIC METABOLIC PANEL (NA, 2023-03-02 09:10:00 Ashu Herring [facility] K, CL, CO2, GLUCOSE, BUN, Medica l Branch CREATININE, CA) CBC WITH DIFF 2023-03-02 09:10:00 Nevaeh [facility] POCT GLUCOSE (AUTOMATED) 2023-03-02 04:17:00 Mike Campos Uni versity [facility] POCT GLUCOSE (AUTOMATED) 2023-03-02 01:19:00 Mike Campos Uni versity [facility] POCT GLUCOSE (AUTOMATED) 2023-03-01 21:54:00 Mike Campos Uni versity [facility] POCT GLUCOSE (AUTOMATED) 2023-03-01 16:03:00 Mike Campos Uni versity [facility] POCT GLUCOSE (AUTOMATED) 2023-03-01 13:07:00 Mike Campos Uni versity [facility] PHOSPHORUS 2023-03-01 10:21:00 Nevaeh [facility] MAGNESIUM 2023-03-01 10:21:00 Nevaeh [facility] BASIC METABOLIC PANEL (NA, 2023-03-01 10:21:00 Ashu Herring [facility] K, CL, CO2, GLUCOSE, BUN, Medica l Branch CREATININE, CA) CBC WITH DIFF 2023-03-01 10:21:00 Nevaeh [facility] CLOSTRIDIUM DIFFICILE 2023-03-01 02:54:00 Faviola Meadows [facility] TOXIN [facility] POCT GLUCOSE (AUTOMATED) 2023-03-01 01:58:00 [facility] PO[facility] GLUCOSE (AUTOMATED) 2023-02-28 23:09:00 [facility] POCT GLUCOSE (AUTOMATED) 2023-02-28 21:31:00 [facility] XR CHEST 1 VW 2023-02-28 19:33:13 Heidari, Ashu [facility] POCT GLUCOSE (AUTOMATED) 2023-02-28 17:31:00 Mike Campos Uni versity [facility] ACUTE CARE ARTERIAL BLOOD 2023-02-28 17:27:00 Ashu Herring [facility] POCT GLUCOSE (AUTOMATED) 2023-02-28 13:08:00 Mike Campos Uni versity of [facility] MAGNESIUM 2023-02-28 10:30:00 Mike [facility] BASIC METABOLIC PANEL (NA, 2023-02-28 10:30:00 Mckeon, Yvonne [facility] [place] K, CL, CO2, GLUCOSE, BUN, Medica l Branch CREATININE, CA) CBC WITH DIFF 2023-02-28 10:30:00 Mike [facility] POCT GLUCOSE (AUTOMATED) 2023-02-28 01:58:00 Mike Campos Uni versity [facility] POCT GLUCOSE (AUTOMATED) 2023-02-27 21:28:00 Mike Campos Uni versity of [facility] POCT GLUCOSE (AUTOMATED) 2023-02-27 17:08:00 EzMike funes Uni versity of [facility] POCT GLUCOSE (AUTOMATED) 2023-02-27 16:43:00 Mike Campos Uni versity of [facility] POCT GLUCOSE (AUTOMATED) 2023-02-27 13:02:00 Mike Campos Uni versity of [facility] BASIC METABOLIC PANEL (NA, 2023-02-27 07:51:00 AlbBubba burns [facility] K, CL, CO2, GLUCOSE, BUN, Medica l Branch CREATININE, CA) CBC WITH DIFF 2023-02-27 07:51:[address] [facility] POCT GLUCOSE (AUTOMATED) 2023-02-27 02:08:00 Mike Campos Uni versity of [facility] POCT GLUCOSE (AUTOMATED) 2023-02-26 23:05:00 Noah Ali Uni versity of [facility] POCT GLUCOSE (AUTOMATED) 2023-02-26 20:08:00 Noah Ali Uni versity of [facility] POCT GLUCOSE (AUTOMATED) 2023-02-26 17:01:00 [facility] PO[facility] GLUCOSE (AUTOMATED) 2023-02-26 12:44:00 [facility]marin [facility] POCT GLUCOSE (AUTOMATED) 2023-02-26 10:24:00 Mike Campos Uni versity [facility] MAGNESIUM 2023-02-26 09:16:00 Mike [facility] BASIC METABOLIC PANEL (NA, 2023-02-26 09:16:00 Yvonne Mckeon [facility] K, CL, CO2, GLUCOSE, BUN, Medica l Branch CREATININE, CA) CBC WITH DIFF 2023-02-26 09:16:00 Mike [facility] POCT GLUCOSE (AUTOMATED) 2023-02-26 07:31:00 [facility] POCT GLUCOSE (AUTOMATED) 2023-02-26 04:35:00 [facility] POCT GLUCOSE (AUTOMATED) 2023-02-26 04:32:00 Ezzo [facility] POCT GLUCOSE (AUTOMATED) 2023-02-26 01:24:00 [facility] POCT GLUCOSE (AUTOMATED) 2023-02-25 21:09:00 Noah [facility] POCT GLUCOSE (AUTOMATED) 2023-02-25 16:30:00 Ezmarin [facility] POCT GLUCOSE (AUTOMATED) 2023-02-25 12:56:00 Mike Campos Uni [facility] PHOSPHORUS 2023-02-25 10:31:00 Dennis [facility] MAGNESIUM 2023-02-25 10:31:00 Dennis [facility] BASIC METABOLIC PANEL (NA, 2023-02-25 10:31:00 Dennis [facility] K, CL, CO2, GLUCOSE, BUN, Medica l Branch CREATININE, CA) CBC WITH DIFF 2023-02-25 10:31:00 Dennis [facility] POCT GLUCOSE (AUTOMATED) 2023-02-25 01:15:00 Ezmarin, Ali [facility] POCT GLUCOSE (AUTOMATED) 2023-02-25 00:02:00 Mike Campos [facility] POCT GLUCOSE (AUTOMATED) 2023-02-24 22:07:00 Mike Campos [facility] POCT GLUCOSE (AUTOMATED) 2023-02-24 17:02:00 Mike Campos [facility] POCT GLUCOSE (AUTOMATED) 2023-02-24 11:20:00 Mike Campos [facility] PHOSPHORUS 2023-02-24 09:25:[address] [facility] MAGNESIUM 2023-02-24 09:25:00 Noah [facility] COMP. METABOLIC PANEL 2023-02-24 09:25:00 Mike Campos [facility] ([id number] CBC WITH DIFF 2023-02-24 09:25:00 Noah [facility] POCT GLUCOSE (AUTOMATED) 2023-02-24 04:59:00 Mike Campos [facility] AC PANEL 20 + LACTIC ACID 2023-02-24 03:04:00 Mike Campos [facility] POCT GLUCOSE (AUTOMATED) 2023-02-23 21:17:00 Mike Campos [facility] POCT GLUCOSE (AUTOMATED) 2023-02-23 16:26:00 Mike Campos [facility] CT THORAX WO CONTRAST 2023-02-23 15:46:00 Dennis [facility] TROPONIN I 2023-02-23 15:11:00 Dennis [facility] MRSA / MSSA SCREEN BY PCR, 2023-02-23 13:54:00 Dennis [facility] AC PANEL 20 + LACTIC ACID 2023-02-23 13:36:00 Dennis [facility] POCT GLUCOSE (AUTOMATED) 2023-02-23 13:28:00 Mike Campos [facility] [facility] URINALYSIS 2023-02-23 13:17:00 Dennis [facility] COVID-19 (ID NOW RAPID 2023-02-23 11:35:00 Tan Dahl [facility] TESTING) Medical [place] LAB ONLY COVID 2023-02-23 11:35:00 Tan Dahl [facility] INTERPRETATION [facility] POCT GLUCOSE (AUTOMATED) 2023-02-23 11:13:00 [facility] 2023-02-23 11:02:[address] [facility] MAGNESIUM 2023-02-23 10:40:00 Tan Dahl [facility] COMP. METABOLIC PANEL 2023-02-23 10:40:00 Tan Dahl [facility] ([id number]) [facility] Branch XR CHEST 1 VW 2023-02-23 10:11:00 [facility] 2023-02-23 09:44:00 [facility] CBC WITH DIFF 2023-02-23 09:44:00 Tan Dahl [facility] N-TERMINAL PRO-BNP 2023-02-23 09:44:00 Tan Dahl [facility] CRITICAL CARE 2023-02-23 09:26:00 Tan Dahl [facility] HOSPITAL ADMISSION 2023-02-23 05:01:00 Doctor Unassigned, [facility] [place] [facility] POCT GLUCOSE (AUTOMATED) 2023-02-21 17:26:00 Dennis, Quan U [facility] POCT GLUCOSE (AUTOMATED) 2023-02-21 13:16:00 Terminella, Quan U [facility] PHOSPHORUS 2023-02-21 10:20:00 Nevaeh [facility] MAGNESIUM 2023-02-21 10:20:00 Judynh [facility] BASIC METABOLIC PANEL (NA, 2023-02-21 10:20:00 Ashu Herring [facility] K, CL, CO2, GLUCOSE, BUN, Medica l Branch CREATININE, CA) CBC WITH DIFF 2023-02-21 10:20:00 Nevaeh [facility] POCT GLUCOSE (AUTOMATED) 2023-02-21 01:45:00 Terminella, Quan U niversity [facility] POCT GLUCOSE (AUTOMATED) 2023-02-20 23:24:00 Terminella, Quan U niversity [facility] POCT GLUCOSE (AUTOMATED) 2023-02-20 22:24:00 Terminella, Quna U niversity [facility] XR CHEST 1 VW 2023-02-20 19:13:52 Mike [facility] POCT GLUCOSE (AUTOMATED) 2023-02-20 17:01:00 Terminella, Quan U niversity [facility] POCT GLUCOSE (AUTOMATED) 2023-02-20 13:24:00 Terminpattie Quan U niversity [facility] PHOSPHORUS 2023-02-20 10:05:00 Nevaeh [facility] MAGNESIUM 2023-02-20 10:05:00 Nevaeh [facility] BASIC METABOLIC PANEL (NA, 2023-02-20 10:05:00 Ashu Herring [facility] K, CL, CO2, GLUCOSE, BUN, Medica l Branch CREATININE, CA) CBC WITH DIFF 2023-02-20 10:05:00 Nevaeh [facility] POCT GLUCOSE (AUTOMATED) 2023-02-20 01:07:00 Terminella, Quan U niversity [facility] POCT GLUCOSE (AUTOMATED) 2023-02-19 22:29:00 Terminella, Quan U niversity [facility] POCT GLUCOSE (AUTOMATED) 2023-02-19 18:05:00 Terminella, Quan U niversity [facility] POCT GLUCOSE (AUTOMATED) 2023-02-19 13:14:00 Terminella, Quan U niversity [facility] PHOSPHORUS 2023-02-19 10:01:00 Nevaeh [facility] MAGNESIUM 2023-02-19 10:01:00 Nevaeh [facility] BASIC METABOLIC PANEL (NA, 2023-02-19 10:01:00 Heidari, Ashu [facility] K, CL, CO2, GLUCOSE, BUN, Medica l Branch CREATININE, CA) CBC WITH DIFF 2023-02-19 10:01:[address] [facility] POCT GLUCOSE (AUTOMATED) 2023-02-19 02:00:00 Terminella, Quan U niversity [facility] POCT GLUCOSE (AUTOMATED) 2023-02-18 23:29:00 Terminella, Quan U niversity [facility] POCT GLUCOSE (AUTOMATED) 2023-02-18 22:04:00 Terminella, Quan U niversity [facility] POCT GLUCOSE (AUTOMATED) 2023-02-18 16:25:00 Terminella, Quan U niversity [facility] POCT GLUCOSE (AUTOMATED) 2023-02-18 13:18:00 Terminella, Quan U niversity [facility] POCT GLUCOSE (AUTOMATED) 2023-02-18 12:48:00 Terminella, [facility]SE (AUTOMATED) 2023-02-18 10:33:00 Terminella, Quan U niversity [facility] PHOSPHORUS 2023-02-18 10:28:00 [facility] BASIC METABOLIC PANEL (NA, 2023-02-18 10:28:00 Simmons, [facility] K, CL, CO2, GLUCOSE, BUN, Medica l Branch CREATININE, CA) CBC WITH DIFF 2023-02-18 10:28:[address] [facility] POCT GLUCOSE (AUTOMATED) 2023-02-18 01:37:00 Terminella, [facility] PO[facility] GLUCOSE (AUTOMATED) 2023-02-17 22:12:00 Terminella, Quan U niversity [facility] POCT GLUCOSE (AUTOMATED) 2023-02-17 17:10:00 [facility] PELVIS WO CONTRAST 2023-02-17 16:47:00 Yvonne Mckeon Univnapoleon corrigan [facility] CT THORAX WO CONTRAST 2023-02-17 16:47:00 Yvonne Mckeon [facility] DUPLEX VENOUS LEG RIGHT - 2023-02-17 16:07:59 [facility]ne [facility] POCT GLUCOSE (AUTOMATED) 2023-02-17 12:38:00 Gopi Elias Un [facility] MAGNESIUM 2023-02-17 11:48:00 [facility] BASIC METABOLIC PANEL (NA, 2023-02-17 11:48:00 Yvonne [facility]ke[facility], CL, CO2, GLUCOSE, BUN, Medica l Branch CREATININE, CA) N-TERMINAL PRO-BNP 2023-02-17 11:48:00 Troy [facility] CBC WITH DIFF 2023-02-17 10:30:00 [facility] POCT GLUCOSE (AUTOMATED) 2023-02-17 01:47:00 [facility]opi [facility]as [facility] POCT GLUCOSE (AUTOMATED) 2023-02-16 21:28:00 [facility]opi [facility]as [facility] POCT GLUCOSE (AUTOMATED) 2023-02-16 16:45:00 [facility]ST 1 VW 2023-02-16 14:46:00 Troy [facility] TRANSTHORACIC ECHO (TTE) 2023-02-16 14:34:47 Yvonne Mckeon [facility] LIMITED W/ DOPPLER, COLOR Medica l Branch AND CONTRAST POCT GLUCOSE (AUTOMATED) 2023-02-16 14:12:00 Gopi Elias [facility] POCT GLUCOSE (AUTOMATED) 2023-02-16 12:32:00 Gopi Elias [facility] MAGNESIUM 2023-02-16 10:08:[address] [facility] BASIC METABOLIC PANEL (NA, 2023-02-16 10:08:00 Yvonne Mckeon U [facility] K, CL, CO2, GLUCOSE, BUN, Medica l Branch CREATININE, CA) CBC WITH DIFF 2023-02-16 10:08:00 [facility] 2023-02-16 10:08:00 Ernie Simmons [facility] POCT GLUCOSE (AUTOMATED) 2023-02-16 06:37:00 [facility]OP[facility] 2023-02-16 04:10:00 [facility] PO[facility]SE ([facility]OMATED) 2023-02-16 03:25:00 [facility]OPONIN I 2023-02-15 21:44:00 [facility] POCT GLUCOSE (AUTOMATED) 2023-02-15 21:36:00 Gopi Elias [facility] POCT GLUCOSE (AUTOMATED) 2023-02-15 17:45:00 Gopi Elias [facility] PHOSPHORUS 2023-02-15 14:42:00 Dennis [facility] MAGNESIUM 2023-02-15 14:42[facility]-02-15 14:42:00 Dennis [facility] BASIC METABOLIC PANEL (NA, 2023-02-15 14:42:00 David [facility] K, CL, CO2, GLUCOSE, BUN, Medica l Branch CREATININE, CA) CBC WITH DIFF 2023-02-15 14:42:00 [facility] XR CHEST 1 VW 2023-02-15 14:36:34 David [facility] HB ECG ROUTINE & RHYTHM 2023-02-15 14:21:38 Gopi Elias [facility] AC ABG + LACTIC ACID 2023-02-15 14:19:00 Gopi Elias [facility] POCT GLUCOSE (AUTOMATED) 2023-02-15 14:15:00 Ronal North [facility] POCT GLUCOSE (AUTOMATED) 2023-02-15 13:48:00 Ronal North vers[facility] POCT GLUCOSE (AUTOMATED) 2023-02-15 12:51:00 Ronal North versity of [facility] XR CHEST 1 VW 2023-02-15 11:35:00 [facility] BASIC METABOLIC PANEL (NA, 2023-02-15 09:58:00 Faviola Meadows [facility] K, CL, CO2, GLUCOSE, BUN, Mahmoud Medica l Branch CREATININE, CA) N-TERMINAL PRO-BNP 2023-02-15 09:58:00 Faviola Meadows [facility] POCT GLUCOSE (AUTOMATED) 2023-02-15 00:36:00 Ronal [place] [facility] POCT GLUCOSE (AUTOMATED) 2023-02-14 21:22:00 Ronal [facility] POCT GLUCOSE (AUTOMATED) 2023-02-14 19:29:00 Ronal North versity [facility] POCT GLUCOSE (AUTOMATED) 2023-02-14 16:42:00 Ronal North Uni versity of [facility] POCT GLUCOSE (AUTOMATED) 2023-02-14 13:35:00 Ronal North versity [facility] POCT GLUCOSE (AUTOMATED) 2023-02-14 13:13:00 Ronal North Uni versity of [facility] POCT GLUCOSE (AUTOMATED) 2023-02-14 13:07:00 Ronal [place] [facility]ity [facility] POCT GLUCOSE (AUTOMATED) 2023-02-14 13:02:00 Ronal North [facility]ity [facility] POCT GLUCOSE (AUTOMATED) 2023-02-14 12:52:00 Ronal [place] [facility]ity [facility] BASIC METABOLIC PANEL (NA, 2023-02-14 11:27:00 Mehul Foster [facility] K, CL, CO2, GLUCOSE, BUN, Medica l Branch CREATININE, CA) CBC WITH DIFF 2023-02-14 11:27:00 [facility] POCT GLUCOSE (AUTOMATED) 2023-02-14 02:15:00 Ronal [facility] POCT GLUCOSE (AUTOMATED) 2023-02-13 22:39:00 Ronal [facility] POCT GLUCOSE (AUTOMATED) 2023-02-13 17:16:00 Ronal [facility] POCT GLUCOSE (AUTOMATED) 2023-02-13 12:48:00 Ronal North versfrancisca of [facility] BASIC METABOLIC PANEL (NA, 2023-02-13 10:34:00 Molina, Nannette [facility] K, CL, CO2, GLUCOSE, BUN, Medica l Branch CREATININE, CA) CBC WITH DIFF 2023-02-13 10:34:00 [facility] POCT GLUCOSE (AUTOMATED) 2023-02-13 02:15:00 Ronal [facility] POCT GLUCOSE (AUTOMATED) 2023-02-12 21:53:00 Ronal [facility] XR CHEST 1 VW 2023-02-12 21:21:09 [facility] POCT GLUCOSE (AUTOMATED) 2023-02-12 17:04:00 Ronal [facility] POCT GLUCOSE (AUTOMATED) 2023-02-12 12:53:00 Ronal [facility] POCT GLUCOSE (AUTOMATED) 2023-02-12 12:53:00 Ronal [facility] XR CHEST 1 VW 2023-02-12 11:05:[facility]) 2023-02-12 02:01:00 Ronal [facility] POCT GLUCOSE (AUTOMATED) 2023-02-12 02:01:00 Ronal [facility] POCT GLUCOSE (AUTOMATED) 2023-02-11 21:56:00 Ronal [facility] POCT GLUCOSE (AUTOMATED) 2023-02-11 21:56:00 Ronal [facility] POCT GLUCOSE (AUTOMATED) 2023-02-11 16:35:00 Ronal [facility] POCT GLUCOSE (AUTOMATED) 2023-02-11 16:35:00 Ronal [facility] HB ECG ROUTINE & RHYTHM 2023-02-11 15:11:20 [facility]OUTINE & RHYTHM 2023-02-11 15:11:20 Jg [facility] XR CHEST 1 VW 2023-02-11 13:27:38 Mike [facility] POCT GLUCOSE (AUTOMATED) 2023-02-11 12:45:00 Ronal [facility] POCT GLUCOSE (AUTOMATED) 2023-02-11 12:45:00 Ronal [facility] CBC WITHOUT DIFF 2023-02-11 09:55:00 Mike [facility] BASIC METABOLIC PANEL (NA, 2023-02-11 09:55:00 [facility], CL, CO2, GLUCOSE, BUN, Medica l Branch CREATININE, CA) PHOSPHORUS 2023-02-11 09:55:00 Mike [facility] MAGNESIUM 2023-02-11 09:55:00 Mike [facility] PHOSPHORUS 2023-02-11 09:55:00 Mike [facility] MAGNESIUM 2023-02-11 09:55:00 Mike [facility] BASIC METABOLIC PANEL (NA, 2023-02-11 09:55:00 [facility], CL, CO2, GLUCOSE, BUN, Medica l Branch CREATININE, CA) CBC WITHOUT DIFF 2023-02-11 09:55:00 Mike [facility] POCT GLUCOSE (AUTOMATED) 2023-02-11 01:05:00 Ronal [facility] POCT GLUCOSE (AUTOMATED) 2023-02-11 01:05:00 Ronal [facility] XR CHEST 1 VW 2023-02-11 00:33:44 Abu Rufino Linares [facility] XR CHEST 1 VW 2023-02-11 00:33:44 u BillRufino [facility] POCT GLUCOSE (AUTOMATED) 2023-02-10 21:48:00 Ronal North Uni [facility] POCT GLUCOSE (AUTOMATED) 2023-02-10 21:48:00 Ronal North [facility] POCT GLUCOSE (AUTOMATED) 2023-02-10 17:04:00 Ronal North Uni [facility] POCT GLUCOSE (AUTOMATED) 2023-02-10 17:04:00 Ronal North Dulce [facility] IR PLEURAL DRAINAGE WITH 2023-02-10 16:35:00 Mckeon, Yvonne [facility] [place] TUBE WITH IMAGING Medical Branch IR PLEURAL DRAINAGE WITH 2023-02-10 16:35:00 Mckeon, Yvonne [facility] [place] TUBE WITH IMAGING Medical Branch PROTHROMBIN TIME / INR 2023-02-10 13:45:00 Mckeon, Yvonne Unive rsity of [facility] PROTHROMBIN TIME / INR 2023-02-10 13:45:00 Mckeon, Yvonne [facility] POCT GLUCOSE (AUTOMATED) 2023-02-10 13:20:00 Ronal North [facility] POCT GLUCOSE (AUTOMATED) 2023-02-10 13:20:00 Ronal [facility] CBC WITH DIFF 2023-02-10 11:03:00 Molina, Nannette [facility] BASIC METABOLIC PANEL (NA, 2023-02-10 11:03:00 Molina, Nannette [facility] [place] K, CL, CO2, GLUCOSE, BUN, Medica l Branch CREATININE, CA) BASIC METABOLIC PANEL (NA, 2023-02-10 11:03:00 Molina, Nannette [facility] [place] K, CL, CO2, GLUCOSE, BUN, Medica l Branch CREATININE, CA) CBC WITH DIFF 2023-02-10 11:03:00 Molina, Nannette [facility] SODIUM, URINE RANDOM 2023-02-10 02:22:00 Ernie Simmons [facility] UREA NITROGEN, URINE 2023-02-10 02:22:00 Troy Er[facility] POTASSIUM, URINE RANDOM 2023-02-10 02:22:00 Troy [facility] CREATININE, URINE RANDOM 2023-02-10 02:22:00 Ernie Simmons [facility] URINE CULTURE 2023-02-10 02:22:00 Troy [facility] URINE CULTURE 2023-02-10 02:22:00 Troy [facility] CREATININE, URINE RANDOM 2023-02-10 02:22:00 Ernie Simmons [facility] UREA NITROGEN, URINE 2023-02-10 02:22:00 Ernie Simmons [facility] POTASSIUM, URINE RANDOM 2023-02-10 02:22:00 Troy [facility] SODIUM, URINE RANDOM 2023-02-10 02:22:00 Ernie Simmons [facility] POCT GLUCOSE (AUTOMATED) 2023-02-10 01:22:00 Ronal [facility] POCT GLUCOSE (AUTOMATED) 2023-02-10 01:22:00 Ronal [facility] POCT GLUCOSE (AUTOMATED) 2023-02-09 22:20:00 Ronal [facility] POCT GLUCOSE (AUTOMATED) 2023-02-09 22:20:00 Ronal [facility] US RETROPERITONEAL LIMITED 2023-02-09 20:36:09 Ernie Simmons U niversfrancisca [facility] US RETROPERITONEAL LIMITED 2023-02-09 20:36:09 Ernie [facility] POCT GLUCOSE (AUTOMATED) 2023-02-09 20:28:00 Ronal [facility] POCT GLUCOSE (AUTOMATED) 2023-02-09 20:28:00 Ronal [facility] POCT GLUCOSE (AUTOMATED) 2023-02-09 18:42:00 Ronal [facility] POCT GLUCOSE (AUTOMATED) 2023-02-09 18:42:00 Ronal [facility] POCT GLUCOSE (AUTOMATED) 2023-02-09 17:14:00 Ronal [facility] POCT GLUCOSE (AUTOMATED) 2023-02-09 17:14:00 Ronal [facility] POCT GLUCOSE (AUTOMATED) 2023-02-09 16:53:00 Ronal oNrth versity of [facility] POCT GLUCOSE (AUTOMATED) 2023-02-09 16:53:00 Ronal [facility] XR CHEST 1 VW 2023-02-09 16:01[facility]43 [facility] 2023-02-09 16:01:43 [facility] ROUTINE & RHYTHM 2023-02-09 15:49:49 Hector Gregorio [facility] HB ECG ROUTINE & RHYTHM 2023-02-09 15:49:49 Jodie Gregorioshua [facility] VANCOMYCIN RANDOM LEVEL 2023-02-09 13:37:00 Jodie Gregorioshua [facility] TROPONIN I 2023-02-09 13:37:[address] [facility] TROPONIN I 2023-02-09 13:37:[address] [facility] VANCOMYCIN RANDOM LEVEL 2023-02-09 13:37:00 Hector Gregorio [facility] POCT GLUCOSE (AUTOMATED) 2023-02-09 12:58:00 Ronal [facility] POCT GLUCOSE (AUTOMATED) 2023-02-09 12:58:00 Ronal [facility] LEGIONELLA URINARY ANTIGEN 2023-02-09 09:13:00 Hector Gregorio [facility] LEGIONELLA URINARY ANTIGEN 2023-02-09 09:13:00 Hector Gregorio [facility] PNEUMOCOCCAL ANTIGEN 2023-02-09 09:12:00 Jodie Gregorioshua [facility] PNEUMOCOCCAL ANTIGEN 2023-02-09 09:12:00 Jodie Gregorioshua [facility] TROPONIN I 2023-02-09 07:07:00 Jg [facility] CBC WITHOUT DIFF 2023-02-09 07:07:00 Mike [facility] BASIC METABOLIC PANEL (NA, 2023-02-09 07:07:00 Mcke[facility], CL, CO2, GLUCOSE, BUN, Medica l Branch CREATININE, CA) TROPONIN I 2023-02-09 07:07:00 Jg [facility] BASIC METABOLIC PANEL (NA, 2023-02-09 07:07:00 Mckeon, [facility], CL, CO2, GLUCOSE, BUN, Medica l Branch CREATININE, CA) CBC WITHOUT DIFF 2023-02-09 07:07:00 Mike [facility] TROPONIN I 2023-02-09 06:53:00 Jg [facility] TROPONIN I 2023-02-09 06:53:00 Jg [facility] SPUTUM CULTURE 2023-02-09 02:24:00 Jg [facility] SPUTUM CULTURE 2023-02-09 02:24:00 Jg [facility] POCT GLUCOSE (AUTOMATED) 2023-02-09 02:15:00 [facility] POCT GLUCOSE (AUTOMATED) 2023-02-09 02:15:00 [facility]onal [facility] POCT GLUCOSE (AUTOMATED) 2023-02-09 01:16:00 [facility]onal [facility] POCT GLUCOSE (AUTOMATED) 2023-02-09 01:16:00 Abdullah, Ronal [facility] XR CHEST 1 VW 2023-02-09 00:41:00 [facility] XR CHEST 1 VW 2023-02-09 00:41:00 Rufino Bhagat [facility] PHOSPHORUS 2023-02-08 23:45:00 [facility] FERRITIN SERUM 2023-02-08 23:45:00 Asamoa [facility] IRON PANEL 2023-02-08 23:45:00 Asamoa [facility] TROPONIN I 2023-02-08 23:45:00 Asamoa [facility] PHOSPHORUS 2023-02-08 23:45:00 Asamoa [facility] FERRITIN SERUM 2023-02-08 23:45:00 [facility] TROPONIN I 2023-02-08 23:45:00 Asamoa [facility] IRON PANEL 2023-02-08 23:45:00 Asamoa [facility] CT THORAX WO CONTRAST 2023-02-08 18:42:00 Arcelia Merrill [facility] CT THORAX WO CONTRAST 2023-02-08 18:42:00 Arcelia Merrill [facility] MRSA / MSSA SCREEN BY PCR, 2023-02-08 18:29:00 Arcelia Merrill [facility] MRSA / MSSA SCREEN BY PCR, 2023-02-08 18:29:00 Arcelia Merrill [facility] URINALYSIS 2023-02-08 17:49:00 Arcelia Merrill [facility] BLOOD CULTURE SCREEN 2023-02-08 17:49:00 Arcelia Merrill [facility] BLOOD CULTURE SCREEN 2023-02-08 17:49:00 Arcelia Merrill [facility] URINALYSIS 2023-02-08 17:49:00 Arcelia Merrill [facility] BLOOD CULTURE SCREEN 2023-02-08 17:34:00 Arcelia Merrill [facility] BLOOD CULTURE SCREEN 2023-02-08 17:34:00 Arcelia Merrill [facility] CBC WITH DIFF 2023-02-08 16:39:00 Arcelia Merrill [facility] CBC WITH DIFF 2023-02-08 16:39:00 Arcelia Merrill [facility] AC PANEL 21 + LACTIC ACID 2023-02-08 16:00:00 Arcelia Merrill [facility] AC PANEL 21 + LACTIC ACID 2023-02-08 16:00:00 Arcelia Merrill [facility] XR CHEST 1 VW 2023-02-08 15:29:05 Arcelia Merrill [facility] XR CHEST 1 VW 2023-02-08 15:29:05 Arcelia Merrill [facility] COMP. METABOLIC PANEL 2023-02-08 15:19:00 Arcelia Merrill [facility] ([id number] N-TERMINAL PRO-BNP 2023-02-08 15:19:00 Arcelia Merrill [facility] TROPONIN I 2023-02-08 15:19:00 Arcelia Merrill [facility] MAGNESIUM 2023-02-08 15:19:00 Arcelia Merrill [facility] MAGNESIUM 2023-02-08 15:19:00 Arcelia Merrill [facility] TROPONIN I 2023-02-08 15:19:00 Arcelia Merrill [facility] COMP. METABOLIC PANEL 2023-02-08 15:19:00 Arcelia Merrill [facility] ([id number]) [facility] N-TERMINAL PRO-BNP 2023-02-08 15:19:00 Arcelia Merrill [facility] HB ECG ROUTINE & RHYTHM 2023-02-08 15:07:22 Arcelia Merrill [facility] HB ECG ROUTINE & RHYTHM 2023-02-08 15:07:22 Arcelia Merrill [facility] CONSENT/REFUSAL FOR 2023-02-08 14:59:24 Doctor Unassigned, [facility] DIAGNOSIS AND TREATMENT [facility] CONSENT/REFUSAL FOR 2023-02-08 14:59:24 Doctor Etienne [facility] DIAGNOSIS AND TREATMENT [place] [facility] 2023-02-08 05:01:00 Doctor Jaimie [facility] EKG (SCANNED DOCUMENTS) 2023-02-08 05:01:00 Hilary Davey [facility] 2023-02-08 05:01:00 Doctor Etienne [facility] PULMONARY REHAB ITP REPORT 2023-02-07 21:33:00 Doctor Etienne [facility] POCT GLUCOSE (AUTOMATED) 2023-02-05 21:21:00 Nicole [facility]s [facility] POCT GLUCOSE (AUTOMATED) 2023-02-05 21:21:00 [facility] 2023-02-05 16:20:00 [facility] (AUTOMATED) 2023-02-05 16:20:00 [facility] PO[facility] (AUTOMATED) 2023-02-05 12:38:00 [facility] PO[facility]SE (AUTOMATED) 2023-02-05 12:38:00 Nicole Weathers Uni [facility] BASIC METABOLIC PANEL (NA, 2023-02-05 10:16:00 Jesi Keating [facility] K, CL, CO2, GLUCOSE, BUN, Medica l Branch CREATININE, CA) BASIC METABOLIC PANEL (NA, 2023-02-05 10:16:00 Jesi Keating [facility] K, CL, CO2, GLUCOSE, BUN, Medica l Branch CREATININE, CA) POCT GLUCOSE (AUTOMATED) 2023-02-05 03:50:00 [facility] PO[facility]SE (AUTOMATED) 2023-02-05 03:50:00 OvNicole sainz Uni versity [facility] POCT GLUCOSE (AUTOMATED) 2023-02-04 23:51:00 Nicole Weathers [facility] POCT GLUCOSE (AUTOMATED) 2023-02-04 23:51:00 Jasiel [facility] POCT GLUCOSE (AUTOMATED) 2023-02-04 21:13:00 Jasiel [facility] PO[facility] GLUCOSE (AUTOMATED) 2023-02-04 21:13:00 O[facility]Nicole [facility]ainz [facility] PO[facility] GLUCOSE (AUTOMATED) 2023-02-04 16:12:00 O[facility]Nicole [facility]ainz [facility] PO[facility] GLUCOSE (AUTOMATED) 2023-02-04 16:12:00 Ovemeli Nicole [facility] POCT GLUCOSE (AUTOMATED) 2023-02-04 12:39:00 Nicole Weathers [facility] POCT GLUCOSE (AUTOMATED) 2023-02-04 12:39:00 Nicole Weathers [employer] [facility] URIC ACID 2023-02-04 10:14:00 Kaushik Palomares [facility] MAGNESIUM 2023-02-04 10:14:[address] [facility] THYROID STIMULATING 2023-02-04 10:14:00 Kaushik Palomares [facility] BASIC METABOLIC PANEL (NA, 2023-02-04 10:14:00 Jesi Keating [facility] K, CL, CO2, GLUCOSE, BUN, Medica l Branch CREATININE, CA) BASIC METABOLIC PANEL (NA, 2023-02-04 10:14:00 Jesi Keating [facility] K, CL, CO2, GLUCOSE, BUN, Medica l Branch CREATININE, CA) MAGNESIUM 2023-02-04 10:14:00 Jesi Keating [facility] THYROID STIMULATING 2023-02-04 10:14:00 Kaushik Palomares [facility] URIC ACID 2023-02-04 10:14:00 Kaushik Palomares [facility] POCT GLUCOSE (AUTOMATED) 2023-02-04 01:48:00 Nicole Weathers [employer] [facility] POCT GLUCOSE (AUTOMATED) 2023-02-04 01:48:00 Oville, Nicole Uni versity of [facility] POCT GLUCOSE (AUTOMATED) 2023-02-03 21:45:00 Oville, Nicole Uni versity of [facility] POCT GLUCOSE (AUTOMATED) 2023-02-03 21:45:00 Oville, Nicole Uni versity of [facility] POCT GLUCOSE (AUTOMATED) 2023-02-03 16:35:00 Oville, Nicole Uni versity of [facility] POCT GLUCOSE (AUTOMATED) 2023-02-03 16:35:00 Oville, Nicole Uni vers[facility] of [facility] POCT GLUCOSE (AUTOMATED) 2023-02-03 12:24:00 Oville Nicole Uni versity of [facility] POCT GLUCOSE (AUTOMATED) 2023-02-03 12:24:00 OvilleCalebi Uni versity of [facility] BASIC METABOLIC PANEL (NA, 2023-02-03 09:24:00 Jesi Keating [facility] K, CL, CO2, GLUCOSE, BUN, Medica l Branch CREATININE, CA) N-TERMINAL PRO-BNP 2023-02-03 09:24:00 Tino [facility] BASIC METABOLIC PANEL (NA, 2023-02-03 09:24:00 Jesi Keating [facility] K, CL, CO2, GLUCOSE, BUN, Medica l Branch CREATININE, CA) N-TERMINAL PRO-BNP 2023-02-03 09:24:00 Regino Jim[facility]ne[facility]uel [facility] POCT GLUCOSE (AUTOMATED) 2023-02-03 01:32:00 OvilleCalebi Uni versity of [facility] POCT GLUCOSE (AUTOMATED) 2023-02-03 01:32:00 OvilleMartínezNicole Uni versity of [facility] POCT GLUCOSE (AUTOMATED) 2023-02-02 21:33:00 Oville Nicole Uni versity of [facility] POCT GLUCOSE (AUTOMATED) 2023-02-02 21:33:00 Oville, Nicole Uni versity of [facility] POCT GLUCOSE (AUTOMATED) 2023-02-02 16:35:00 Oville Nicole Uni vers[facility] of [facility] POCT GLUCOSE (AUTOMATED) 2023-02-02 16:35:00 Nicole Weathers Uni versity of [facility] XR CHEST 1 VW 2023-02-02 16:29:20 Rishabh [facility] XR CHEST 1 VW 2023-02-02 16:29:20 Rishabh [facility] POCT GLUCOSE (AUTOMATED) 2023-02-02 12:37:00 Nicole Weathers Uni versity of [facility] POCT GLUCOSE (AUTOMATED) 2023-02-02 12:37:00 Nicole Weathers Uni versity [facility] MAGNESIUM 2023-02-02 10:35:00 Rishabh [facility] BASIC METABOLIC PANEL (NA, 2023-02-02 10:35:00 Jesi Keating [facility] K, CL, CO2, GLUCOSE, BUN, Medica l Branch CREATININE, CA) CBC WITH DIFF 2023-02-02 10:35:00 Rishabh [facility] BASIC METABOLIC PANEL (NA, 2023-02-02 10:35:00 Jesi Keating [facility] K, CL, CO2, GLUCOSE, BUN, Medica l Branch CREATININE, CA) CBC WITH DIFF 2023-02-02 10:35:00 Rishabh [facility] MAGNESIUM 2023-02-02 10:35:00 Rishabh [facility] POCT GLUCOSE (AUTOMATED) 2023-02-02 10:34:00 Nicole Weathers Uni versity of [facility] POCT GLUCOSE (AUTOMATED) 2023-02-02 10:34:00 OvMartínez sainzlani Uni versity of [facility] POCT GLUCOSE (AUTOMATED) 2023-02-02 06:49:00 Jasiel Nicole Uni versity of [facility] POCT GLUCOSE (AUTOMATED) 2023-02-02 06:49:00 Martínez Weatherslani Uni versity of [facility] POCT GLUCOSE (AUTOMATED) 2023-02-02 05:35:00 Jasiel Nicole Uni versity of [facility] POCT GLUCOSE (AUTOMATED) 2023-02-02 05:35:00 Nicole Weathers Uni versity of [facility] - OTHER 2023-02-02 05:01:00 Doctor Unassigned [facility] [place] [facility] - OTHER 2023-02-02 05:01:00 [facility]ass[facility], [facility] [place] [facility] POCT GLUCOSE (AUTOMATED) 2023-02-02 01:15:00 OvNicole sainz Uni versity of [facility] POCT GLUCOSE (AUTOMATED) 2023-02-02 01:15:00 OvNicole sainz Uni vers[facility] of [facility] POCT GLUCOSE (AUTOMATED) 2023-02-01 21:35:00 Ovemeli Nicole Uni versity of [facility] POCT GLUCOSE (AUTOMATED) 2023-02-01 21:35:00 OvCaleb sainzi Uni versity of [facility] POCT GLUCOSE (AUTOMATED) 2023-02-01 16:22:00 OvCaleb sainzi Uni versity of [facility] POCT GLUCOSE (AUTOMATED) 2023-02-01 16:22:00 OvNicole sainz Uni vers[facility] of [facility] POCT GLUCOSE (AUTOMATED) 2023-02-01 12:41:00 Ovemeli Nicole Uni vers[facility] POCT GLUCOSE (AUTOMATED) 2023-02-01 12:41:00 OvNicole sainz Uni versity of [facility] MAGNESIUM 2023-02-01 09:23:[address] [facility] TROPONIN I 2023-02-01 09:23:00 [facility] BASIC METABOLIC PANEL (NA, 2023-02-01 09:23:00 [facility] Weathers [employer] [place] K, CL, CO2, GLUCOSE, BUN, Medica l Branch CREATININE, CA) CBC WITH DIFF 2023-02-01 09:23:00 Jasiel [facility] CBC WITH DIFF 2023-02-01 09:23:00 Jasiel [facility] BASIC METABOLIC PANEL (NA, 2023-02-01 09:23:00 OvNicole sainz [facility] [employer] [place] K, CL, CO2, GLUCOSE, BUN, Medica l Branch CREATININE, CA) TROPONIN I 2023-02-01 09:23:[address] [facility] MAGNESIUM 2023-02-01 09:23:00 [facility]SE (AUTOMATED) 2023-02-01 05:22:00 Nicole Weathers [facility] POCT GLUCOSE (AUTOMATED) 2023-02-01 05:22:00 Nicole Weathers [facility] POCT GLUCOSE (AUTOMATED) 2023-02-01 02:02:00 Nicole Weathers [facility] POCT GLUCOSE (AUTOMATED) 2023-02-01 02:02:00 Nicole Weathers [facility] POCT GLUCOSE (AUTOMATED) 2023-01-31 21:18:00 Nicole Weathers [facility] POCT GLUCOSE (AUTOMATED) 2023-01-31 21:18:00 Nicole Weathers [facility] ACUTE CARE ARTERIAL BLOOD 2023-01-31 19:27:00 [facility] 2023-01-31 19:27:00 [facility] (AUTOMATED) 2023-01-31 16:32:00 Nicole Weathers [facility] POCT GLUCOSE (AUTOMATED) 2023-01-31 16:32:00 Nicole Weathers [facility] TROPONIN I 2023-01-31 15:35:[address] [facility] BASIC METABOLIC PANEL (NA, 2023-01-31 15:35:00 Nicole Weathers [facility] K, CL, CO2, GLUCOSE, BUN, Medica l Branch CREATININE, CA) CBC WITH DIFF 2023-01-31 15:35:00 Jasiel [facility] N-TERMINAL PRO-BNP 2023-01-31 15:35:00 Nicole Weathers [facility] CBC WITH DIFF 2023-01-31 15:35:00 Jasiel [facility] BASIC METABOLIC PANEL (NA, 2023-01-31 15:35:00 Nicole Weathers [facility] K, CL, CO2, GLUCOSE, BUN, Medica l Branch CREATININE, CA) TROPONIN I 2023-01-31 15:35:[address] [facility] N-TERMINAL PRO-BNP 2023-01-31 15:35:00 [facility] (AUTOMATED) 2023-01-31 12:41:00 [facility] PO[facility]SE (AUTOMATED) 2023-01-31 12:41:00 Nicole Weathers [facility] SPUTUM CULTURE 2023-01-31 10:51:00 Ricardo [facility] SPUTUM CULTURE 2023-01-31 10:51:00 Ricardo [facility] HOME HEALTH - OTHER 2023-01-31 05:01:00 Doctor Unassigned, [facility] Name [facility] HEALTH - OTHER 2023-01-31 05:01:00 Doctor Unassigned, [facility] [place] [facility] POCT GLUCOSE (AUTOMATED) 2023-01-31 01:37:00 Nicole Weatehrs [facility] POCT GLUCOSE (AUTOMATED) 2023-01-31 01:37:00 Nicole Weathers [facility] URINE CULTURE 2023-01-31 01:26:[address] [facility] URINE CULTURE 2023-01-31 01:26:00 [facility] 2023-01-31 01:25:00 [facility] 2023-01-31 01:25:00 [facility] RESPIRATORY PANEL BY PCR 2023-01-30 22:01:00 [facility] RESPIRATORY PANEL BY PCR 2023-01-30 22:01:00 [facility] SPUTUM CULTURE 2023-01-30 21:23:[address] [facility] SPUTUM CULTURE 2023-01-30 21:23:[address] [facility] POCT GLUCOSE (AUTOMATED) 2023-01-30 21:17:00 Nicole Weathers [facility] POCT GLUCOSE (AUTOMATED) 2023-01-30 21:17:00 Nicole Weathers [facility] XR CHEST 1 VW 2023-01-30 20:01:[address] [facility] XR CHEST 1 VW 2023-01-30 20:01:[address] [facility] MRSA / MSSA SCREEN BY PCR, 2023-01-30 18:50:00 Nicole Weathers [facility] COVID-19 (ID NOW RAPID 2023-01-30 18:50:00 OvNicole sainz [facility] TESTING) Medical Branch LAB ONLY COVID 2023-01-30 18:50:00 Nicole Weathers [facility] MRSA / MSSA SCREEN BY PCR, 2023-01-30 18:50:00 Nicole Weathers [facility] COVID-19 (ID NOW RAPID 2023-01-30 18:50:00 OvNicole sainz [facility] TESTING) Medical Branch LAB ONLY COVID 2023-01-30 18:50:00 Nicole Weathers [facility] ACUTE CARE ARTERIAL BLOOD 2023-01-30 18:45:00 [facility] L[facility] WHOLE BLOOD 2023-01-30 18:45:00 Nicole Weathers [facility] ACUTE CARE ARTERIAL BLOOD 2023-01-30 18:45:00 [facility] LACTIC ACID WHOLE BLOOD 2023-01-30 18:45:00 Nicole Weathers [facility] BLOOD CULTURE SCREEN 2023-01-30 18:43:00 Nicole Weathers [facility] PROCALCITONIN 2023-01-30 18:43:00 Jasiel [facility] BLOOD CULTURE SCREEN 2023-01-30 18:43:00 Ovemeli [facility] PROCALCITONIN 2023-01-30 18:43:00 Ovemeli, [facility] BLOOD CULTURE SCREEN 2023-01-30 18:36:00 Ovemeli, [facility] MAGNESIUM 2023-01-30 18:36:00 Ovemeli, [facility] C-REACTIVE PROTEIN 2023-01-30 18:36:00 Ovemeli, [facility] TROPONIN I 2023-01-30 18:36:00 Ovemeli, [facility] HEPATIC FUNCTION PANEL 2023-01-30 18:36:00 [id number] ([facility] T,BU/BC,ALT,AST,ALK PHOS) BASIC METABOLIC PANEL (NA, 2023-01-30 18:36:00 Nicole Weathers [facility] K, CL, CO2, GLUCOSE, BUN, Medica l Branch CREATININE, CA) CBC WITH DIFF 2023-01-30 18:36:00 [facility] / INR 2023-01-30 18:36:00 Nicole [facility]s [facility] ACTIVATED PARTIAL THRMPLAS 2023-01-30 18:36:00 Nicole Weathers [facility] N-TERMINAL PRO-BNP 2023-01-30 18:36:00 Nicole Weathers [facility] CBC WITH DIFF 2023-01-30 18:36:00 Jasiel [facility] PROTHROMBIN TIME / INR 2023-01-30 18:36:00 Nicole Weathers [facility] ACTIVATED PARTIAL THRMPLAS 2023-01-30 18:36:00 Nicole Weathers [facility] BASIC METABOLIC PANEL (NA, 2023-01-30 18:36:00 Nicole Weathers [facility] K, CL, CO2, GLUCOSE, BUN, Medica l Branch CREATININE, CA) MAGNESIUM 2023-01-30 18:36:00 Jasiel [facility] HEPATIC FUNCTION PANEL 2023-01-30 18:36:00 Nicole Weathers [facility] ([id number]) (ALB,T.PRO,BILI Medical Branch T,BU/BC,ALT,AST,ALK PHOS) BLOOD CULTURE SCREEN 2023-01-30 18:36:00 Jasiel [facility] TROPONIN I 2023-01-30 18:36:00 Jasiel [facility] N-TERMINAL PRO-BNP 2023-01-30 18:36:00 Jasiel [facility] C-REACTIVE PROTEIN 2023-01-30 18:36:00 Jasiel [facility] EMERGENCY SERVICES 2023-01-30 05:01:00 Doctor Unassvandana, [facility] AGREEMENTS AND [place] [facility] AUTHORIZATIONS HOSPITAL ADMISSION 2023-01-30 05:01:00 Doctor Unadominique, [facility] [place] [facility] HOSPITAL ADMISSION MISC - 2023-01-30 05:01:00 Doctor Jaimie, [facility] MEDICARE PATIENTS RIGHTS [place] [facility] Darragh IMPORTANT MESSAGE HOME HEALTH 485 2023-01-25 05:01:00 Doctor Jaimie, [facility] [place] [facility] HOME HEALTH - OTHER 2023-01-25 05:01:00 Doctor Jaimie [facility] [place] [facility] HOME HEALTH 485 2023-01-25 05:01:00 Doctor Unadominique, [facility] [place] [facility] POCT GLUCOSE (AUTOMATED) 2023-01-24 17:08:00 Jesi Keating [facility] POCT GLUCOSE (AUTOMATED) 2023-01-24 17:08:00 Jesi Keating [facility] POCT GLUCOSE (AUTOMATED) 2023-01-24 13:17:00 Jesi Keating [facility] POCT GLUCOSE (AUTOMATED) 2023-01-24 13:17:00 Jesi Keating [facility] POCT GLUCOSE (AUTOMATED) 2023-01-24 12:33:00 [facility] POCT GLUCOSE (AUTOMATED) 2023-01-24 12:33:00 Jesi Keating [facility] BASIC METABOLIC PANEL (NA, 2023-01-24 09:05:00 Kelsey Beth [facility] K, CL, CO2, GLUCOSE, BUN, Medica l Branch CREATININE, CA) CBC WITH DIFF 2023-01-24 09:05:00 Kelsey Beth [facility] N-TERMINAL PRO-BNP 2023-01-24 09:05:00 Kirit Kelseyjustin [facility] BASIC METABOLIC PANEL (NA, 2023-01-24 09:05:00 Kelsey Beth [facility] K, CL, CO2, GLUCOSE, BUN, Medica l Branch CREATININE, CA) N-TERMINAL PRO-BNP 2023-01-24 09:05:00 [facility]sey [facility] CBC WITH DIFF 2023-01-24 09:05:00 Kelsey Beth [facility] POCT GLUCOSE (AUTOMATED) 2023-01-24 01:31:00 [facility] POCT GLUCOSE (AUTOMATED) 2023-01-24 01:31:00 [facility]i [facility]ating [facility] POCT GLUCOSE (AUTOMATED) 2023-01-23 21:47:00 [facility]i [facility] POCT GLUCOSE (AUTOMATED) 2023-01-23 21:47:00 Jesi Keating versity of [facility] POCT GLUCOSE (AUTOMATED) 2023-01-23 16:05:00 Jesi Keating versity of [facility] POCT GLUCOSE (AUTOMATED) 2023-01-23 16:05:00 Jesi Keating versity of [facility] POCT GLUCOSE (AUTOMATED) 2023-01-23 13:01:00 Jesi Keating [facility] POCT GLUCOSE (AUTOMATED) 2023-01-23 13:01:00 [facility] BASIC METABOLIC PANEL (NA, 2023-01-23 09:17:00 Kirit, Kelsey Ani [facility] K, CL, CO2, GLUCOSE, BUN, Medica l Branch CREATININE, CA) BASIC METABOLIC PANEL (NA, 2023-01-23 09:17:00 Kelsey Beth [facility] K, CL, CO2, GLUCOSE, BUN, Medica l Branch CREATININE, CA) OP CORRESPONDENCE 2023-01-23 05:01:00 Doctor Unassigned, [facility] [place] [facility] POCT GLUCOSE (AUTOMATED) 2023-01-23 00:53:00 Jesi Keating versity of [facility] POCT GLUCOSE (AUTOMATED) 2023-01-23 00:53:00 Jesi Keating versity of [facility] POCT GLUCOSE (AUTOMATED) 2023-01-22 21:47:00 [facility] PO[facility] GLUCOSE (AUTOMATED) 2023-01-22 21:47:00 [facility] POCT GLUCOSE (AUTOMATED) 2023-01-22 17:17:00 [facility] POCT GLUCOSE (AUTOMATED) 2023-01-22 17:17:00 Jesi Keating [facility] TRANSTHORACIC ECHO (TTE) 2023-01-22 14:32:00 Ronal [facility] TRANSTHORACIC ECHO (TTE) 2023-01-22 14:32:00 Ronal [facility] POCT GLUCOSE (AUTOMATED) 2023-01-22 13:11:00 Jesi Keating [facility] POCT GLUCOSE (AUTOMATED) 2023-01-22 13:11:00 Jesi Keating [facility] C4 COMPLEMENT 2023-01-22 09:39:00 Kelsey Beth [facility] BASIC METABOLIC PANEL (NA, 2023-01-22 09:39:00 Kelsey Beth [facility] K, CL, CO2, GLUCOSE, BUN, Medica l Branch CREATININE, CA) CBC WITH DIFF 2023-01-22 09:39:00 Kelsey Beth [facility] ANTI-NUCLEAR ANTIBODY 2023-01-22 09:39:00 [facility] N-[facility]MIN[facility]-BNP 2023-01-22 09:39:00 Kelsey Beth [facility] ANTI-SSB(LA) 2023-01-22 09:39:00 Kelsey Beth [facility] ANTI-DOUBLE STRANDED DNA 2023-01-22 09:39:00 Kirit Kelsey Nannette [facility] ELIJAH WITH REFLEX TO SSA AND 2023-01-22 09:39:00 Kelsey Beth [facility] C4 COMPLEMENT 2023-01-22 09:39:00 Kelsey Beth [facility] ANTI-DOUBLE STRANDED DNA 2023-01-22 09:39:00 Kelsey Beth [facility] ELIJAH WITH REFLEX TO SSA AND 2023-01-22 09:39:00 Kelsey Beth [facility] CBC WITH DIFF 2023-01-22 09:39:00 Kirit Kelsey Nannette [facility] BASIC METABOLIC PANEL (NA, 2023-01-22 09:39:00 Kelsey Beth [facility] K, CL, CO2, GLUCOSE, BUN, Medica l Branch CREATININE, CA) N-TERMINAL PRO-BNP 2023-01-22 09:39:00 Kelsey Beth [facility] ANTI-NUCLEAR ANTIBODY 2023-01-22 09:39:00 Kelsey [facility] ANTI-NUCLEAR 2023-01-22 09:39:00 Kelsey Beth [facility] ANTIBODY-PATHOLOGIST Medical [facility] INTERPRETATION ANTI-SSB(LA) 2023-01-22 09:39:00 Kelsey Beth [facility] POCT GLUCOSE (AUTOMATED) 2023-01-22 01:12:00 Jesi Keating [facility] POCT GLUCOSE (AUTOMATED) 2023-01-22 01:12:00 Jesi Keating [facility] POCT GLUCOSE (AUTOMATED) 2023-01-21 21:50:00 Jesi Keating [facility] POCT GLUCOSE (AUTOMATED) 2023-01-21 21:50:00 Jesi Keating [facility] BLOOD CULTURE SCREEN 2023-01-21 16:34:00 [facility] BLOOD CULTURE SCREEN 2023-01-21 16:34:00 [facility]onal [facility] POCT GLUCOSE (AUTOMATED) 2023-01-21 16:32:00 Jesi Keating [facility] POCT GLUCOSE (AUTOMATED) 2023-01-21 16:32:00 Jesi Keating [facility] MRSA / MSSA SCREEN BY PCR, 2023-01-21 16:23:00 Ronal [facility] MRSA / MSSA SCREEN BY PCR, 2023-01-21 16:23:00 Ronal [facility] PNEUMOCOCCAL ANTIGEN 2023-01-21 16:21:00 [facility]onal [facility] LEGIONELLA URINARY ANTIGEN 2023-01-21 16:21:00 Ronal [facility] BLOOD CULTURE SCREEN 2023-01-21 16:20:00 [facility]onal [facility] BLOOD CULTURE SCREEN 2023-01-21 16:20:00 [facility]onal [facility] THORAX WO CONTRAST 2023-01-21 14:39:52 Ronal [facility] CT THORAX WO CONTRAST 2023-01-21 14:39:52 Ronal [facility] POCT GLUCOSE (AUTOMATED) 2023-01-21 12:56:00 Jesi Keating [facility] POCT GLUCOSE (AUTOMATED) 2023-01-21 12:56:00 Jesi Keating [facility] PHOSPHORUS 2023-01-21 09:32:[address] [facility] MAGNESIUM 2023-01-21 09:32:[address] [facility] TROPONIN I 2023-01-21 09:32:[address] [facility] HEPATIC FUNCTION PANEL 2023-01-21 09:32:00 Ronal [facility] ([id number]) (ALB,T.PRO,BILI Medical Branch T,BU/BC,ALT,AST,ALK PHOS) BASIC METABOLIC PANEL (NA, 2023-01-21 09:32:00 Ronal [facility] K, CL, CO2, GLUCOSE, BUN, Medica l Branch CREATININE, CA) CBC WITH DIFF 2023-01-21 09:32:00 Mary Anne [facility] N-TERMINAL PRO-BNP 2023-01-21 09:32:00 [facility] CBC WITH DIFF 2023-01-21 09:32:00 Mary Anne [facility] BASIC METABOLIC PANEL (NA, 2023-01-21 09:32:00 Ronal [facility] K, CL, CO2, GLUCOSE, BUN, Medica l Branch CREATININE, CA) HEPATIC FUNCTION PANEL 2023-01-21 09:32:00 Ronal [facility] ([id number]) (ALB,T.PRO,[facility] T,BU/BC,ALT,AST,ALK PHOS) MAGNESIUM 2023-01-21 09:32:00 Mary Anne [facility] PHOSPHORUS 2023-01-21 09:32:00 [facility] 2023-01-21 09:32:00 [facility] TROPONIN I 2023-01-21 09:32:00 Mary Anne [facility] POCT GLUCOSE (AUTOMATED) 2023-01-21 01:24:00 Jesi Keating [facility] POCT GLUCOSE (AUTOMATED) 2023-01-21 01:24:00 Jesi Keating [facility] XR CHEST 1 VW 2023-01-20 22:40:07 Artis [facility] XR CHEST 1 VW 2023-01-20 22:40:07 Artis [facility] HB ECG ROUTINE & RHYTHM 2023-01-20 19:17:22 Rose Wisdom [facility] HB ECG ROUTINE & RHYTHM 2023-01-20 19:17:22 Rose Wisdom [facility] TROPONIN I 2023-01-20 19:16:00 [facility] 2023-01-20 19:16:00 [facility] COMP. METABOLIC PANEL 2023-01-20 19:16:00 [id number] CBC WITH DIFF 2023-01-20 19:16:00 Artis [facility] GLYCOSYLATED HEMOGLOBIN 2023-01-20 19:16:00 Kelsey Beth [facility] [facility]) [facility] URINALYSIS 2023-01-20 19:16:00 [facility] URINE CULTURE 2023-01-20 19:16:00 [facility] N-TERMINAL PRO-BNP 2023-01-20 19:16:00 [facility] CBC WITH DIFF 2023-01-20 19:16:00 [facility] COMP. METABOLIC PANEL 2023-01-20 19:16:00 [facility] ([id number]) [facility] TROPONIN I 2023-01-20 19:16:00 [facility] N-TERMINAL PRO-BNP 2023-01-20 19:16:00 [facility] URINALYSIS 2023-01-20 19:16:00 [facility] URINE CULTURE 2023-01-20 19:16:00 [facility] GLYCOSYLATED HEMOGLOBIN 2023-01-20 19:16:00 Kelsey Beth [facility] (A1C) Medical Branch THYROID STIMULATING 2023-01-20 19:16:00 Ronal [facility] HORMONE Medical Branch EMERGENCY DEPARTMENT 2023-01-20 05:01:00 Doctor Unadominique, [facility] DOCUMENTS [place] [facility] HOSPITAL ADMISSION 2023-01-20 05:01:00 Doctor Unassvandana, [facility] [place] [facility] PATIENT FINANCIAL 2023-01-13 19:14:03 Doctor Unassigned, [facility] POLICY [place] [facility] HOME HEALTH 485 2023-01-09 06:01:00 Doctor Johannassvandana, [facility] [place] [facility] MR SHOULDER RIGHT WO 2023-01-06 15:54:26 Valentina Pavon [facility] CONTRAST Medical Branch MR SHOULDER RIGHT WO 2023-01-06 15:54:26 Valentina Pavon [facility] CONTRAST Medical Branch PATIENT QUESTIONNAIRE 2023-01-06 06:01:00 Doctor Jaimie, [facility] [place] [facility] XR CHEST 2 VW 2022-12-20 20:12:21 Emili [facility] [place] [facility] XR HUMERUS 2 VW RIGHT 2022-12-08 17:53:00 EbSamuel genao [facility] Medical Branch XR HUMERUS 2 VW RIGHT 2022-12-08 17:53:00 EbSamuel genao [facility] Medical Branch XR SHOULDER 2+ VW RIGHT 2022-12-08 17:52:00 Samuel Danielle [facility] Medical Branch XR SHOULDER 2+ VW RIGHT 2022-12-08 17:52:00 Samuel Danielle [facility] Medical Branch PULMONARY REHAB SESSION 2022-12-06 06:00:00 Doctor Jaimie, [facility] REPORT [place] [facility] PULMONARY REHAB SESSION 2022-12-01 06:00:00 Doctor Jaimie, [facility] REPORT [place] [facility] PULMONARY REHAB SESSION 2022-12-01 06:00:00 Doctor Jaimie, [facility] REPORT [place] [facility] PULMONARY REHAB SESSION 2022-11-29 06:00:00 Doctor Unassvandana, [facility] REPORT [place] [facility] PULMONARY REHAB ITP REPORT 2022-11-23 23:04:00 Doctor Unassigned , [facility] [place] [facility] PULMONARY REHAB ITP REPORT 2022-11-23 23:04:00 Doctor Unassigned , [facility] [place] [facility] PULMONARY REHAB ITP REPORT 2022-11-23 03:20:00 Doctor Unassvandana , [facility] [place] [facility] PULMONARY REHAB SESSION 2022-11-22 06:00:00 Doctor Unassvandana, [facility] REPORT [place] [facility] PULMONARY REHAB SESSION 2022-11-15 06:00:00 Doctor Unassvandana, [facility] REPORT [place] [facility] PULMONARY REHAB SESSION 2022-11-15 06:00:00 Doctor Jaimie, [facility] REPORT [place] [facility] DME/SUPPLY JUSTIFICATION 2022-11-04 06:01:00 Doctor Jaimie, [facility] [place] [facility] PULMONARY REHAB SESSION 2022-10-27 06:00:00 Doctor Jaimie, [facility] REPORT [place] [facility] PULMONARY REHAB ITP REPORT 2022-10-19 23:03:00 Doctor Jaimie , [facility] [place] [facility] PULMONARY FUNCTION TEST 2022-10-04 17:10:10 Jocelyn Mathew [facility] (RESULTS) Medical Branch ANTI-NUCLEAR ANTIBODY 2022-09-16 15:38:00 [facility] SCREEN Medical Branch ANTI-NUCLEAR ANTIBODY 2022-09-16 15:38:00 [facility] TITER Medical Branch ANTI-NUCLEAR 2022-09-16 15:38:00 Willi [facility] [place] [facility] ANTIBODY-PATHOLOGIST Medical [facility] INTERPRETATION ASSIGNMENT OF BENEFITS 2022-09-16 15:21:51 Doctor Unassvandana, [facility] [place] [facility] PATIENT QUESTIONNAIRE 2022-08-25 05:01:00 Doctor Jaimie, [facility] [place] [facility] FLU 2022-08-23 19:22:04 Tino [facility] [place] VACC(),65+YR,0.5 Medica l Branch ML,IM,ADJUVANTED,QUAD(FLUA D) CONSENT/REFUSAL FOR 2022-08-23 18:58:21 Doctor UnassignedKaren [facility] DIAGNOSIS AND TREATMENT [place] [facility] SARS-COV-2 COVID-19 2022-08-19 18:07:02 [facility], [facility] OK-SUCROSE VACCINE 12 [place] [facility] YRS+, BIVALENT 0.3ML, IM, (PFIZER OLERA TOP BOOSTER) XR CHEST 2 VW 2022-07-27 16:49:00 Samuel Danielle [place] [facility] Encounters Start End Encounter Admission Attending Care Care Encounter Source Date/Time Date/Time Type Type Clinicians Facility Department ID 2023-02-28 Outpatient 3 [id number] [facility] PUL [id number] [facility] 01:20:23 [facility] [place] 2023-02-27 Outpatient 3 [id number] ENC[facility] PUL [id number] [facility] 15:24:11 0424 [facility] [place] 2023-02-21 Inpatient Jurado, [facility] [id number] [place] 18:38:00 Elder [id number] [facility] [id number] Olvin lr [id number] [facility] 2023-02-19 Outpatient 3 [id number] ENCPL REF [id number] [facility] 09:41:59 0416 [facility] [place] 2023-02-18 Outpatient 3 [id number] ENCPL REF [id number] [facility] 12:33:44 0415 [facility] [place] 2023-02-15 Outpatient 3 [id number] ENCPL PUL [id number] [facility] 11:03:41 0412 [facility] [place] 2023-02-13 Outpatient 3 [id number] ENCPL REF [id number] [facility] 02:08:31 0410 [facility] [place] 2023-02-11 Outpatient 3 [id number] ENCPL REF [id number] [facility] 15:11:40 0408 [facility] [place] 2023-05-20 2023-05-20 Outpatient KIERA HOPE [facility] [id number] Univers 20:00:00 20:00:00 KIERA STOVER [facility] 2023-03-31 2023-03-31 Outpatient R COY BARRAGAN [facility] 10 [id number] Univers 09:00:00 09:00:00 COY BARRAGAN i ty of [facility] 2023-03-10 2023-03-10 [facility] 1.2.840.114 1 [id number] Univers 00:00:00 00:00:00 Jocelyn BARBOZA 350.1.13.10 i [phone] [place] dical [facility] 044 [facility] 2023-03-08 2023-03-08 Orders Doctor DALY 1.2.840.114 [id number] Univers 00:00:00 00:00:00 Only Unassigned, IAN 350.1.13.10 ity of [place] [facility] 4.2.7.2.686 [place] [phone] [facility] 009 Branch 2023-03-06 2023-03-06 Transition DALILA Graham 1.2.840.114 10 [id number] Univers 00:00:00 00:00:00 of Care Naomipio WOODALL 350.1.13.10 i ty of [place] [phone] [facility] 403 Branch 2023-02-23 2023-03-03 Inpatient X JUDYROXANA ASHU [facility] JAY [id number] Univers 04:28:00 17:22:00 ASHU HERRING ity of [facility] 2023-02-23 2023-03-03 [facility] Huy Taylor [facility] 1.2.840.1 14 [id number] Univers 04:28:00 17:22:00 Encounter Tan Dahl [facility] 350.1.13.10 ity of [place] 4.2.7.2.686 [place] Judyroxana Ashu [facility] [phone] Medical [address] ([facility]) 2023-02-24 2023-02-24 Outpatient R PRIYANKA [facility] [id number] Univers 15:00:00 15:00:00 JOCELYN italberta [facility] 2023-02-21 2023-02-[address] [facility] [id number] [place] 18:38:00 03:30:00 [place] 2023-02-22 2023-02-22 Transition DALILA Graham 1.2.840.114 10 [id number] Univers 00:00:00 00:00:00 of Care Naomi [place] 350.1.13.10 i ty of [place] [phone] [place] [address] Branch 2023-02-08 2023-02-21 Inpatient [facility] [id number] Univers 09:59:00 17:31:00 ELDER ity [facility] 2023-02-08 2023-02-21 Hospital Arcelia Merrill [facility] 1.2.84 0.114 [id number] Univers 09:59:00 17:31:00 Encounter Claudy [facility] 350.1.13.10 ity Hector Gregorio 4.2.7.2.686 [facility] [phone] [facility] 115 Branch [facility] Ashu Herring ([facility]) [place] Jurado 2023-02-13 2023-02-13 [facility] 1.2.840.114 [id number] Univers 00:00:00 00:00:00 Allison BARBOZA 350.1.13.10 [place] [phone] Ct dical NAL 044 Branch [facility] 2023-02-09 2023-02-09 Outpatient R PRIYANKA [facility] [id number] Univers 11:00:00 11:00:00 JOCELYN italberta [facility] 2023-02-09 2023-02-09 Patient Joshua 1.2.840.9 [id number] Univers 00:00:00 00:00:00 Outreach Brittni Esquivel 43412.1.1 ity 3.104.2.7 [place] .3.933492 Medica l .8 Branch 2023-02-08 2023-02-08 Travel 1.2.840.1 1.2.992.282 [id number] [id number] Univers 00:00:00 00:00:00 59188.1.1 350.1.13.10 ity of 3.104.2.7 [place].3.698 [place] .3.305028 084.8 Medica l .8 Branch 2023-02-07 2023-02-07 Telephone Barragan, 1.2.840.6 [id number] Univers 00:00:00 00:00:00 Shiwan 77559.1.1 ity of 3.104.2.7 [place] .3.597347 Medica l .8 Branch 2023-02-06 2023-02-06 Refill Green, 1.2.840.0 [id number] Univers 00:00:00 00:00:00 Katarzyna N 94292.1.1 ity of 3.104.2.7 [place] .3.580272 Medica l .8 Branch 2023-02-06 2023-02-06 Refill Edemekoblu, 1.2.840.8 [id number] Univers 00:00:00 00:00:00 Peter 56568.1.1 ity of 3.104.2.7 [place] .3.823131 Medica l .8 Branch 2023-02-06 2023-02-06 Telephone Priyanka, 1.2.840.5 [id number] Univers 00:00:00 00:00:00 Peter 88171.1.1 ity of 3.104.2.7 [place] .3.763216 Medica l .8 Branch 2023-01-30 2023-02-05 [facility] [id number] Univers 12:51:00 17:36:00 NICOLE ity of [facility] 2023-01-30 2023-02-05 [facility] Jasiel, 1.2.840.9 [id number] Univers 12:51:00 17:36:[address] [facility] Nicole 96320.1.1 it y of 3.104.2.7 [place] .3.451128 Medica l .8 Branch 2023-02-05 2023-02-05 Refill [place], 1.2.840.5 [id number] 10 [id number] Univers 00:00:00 00:00:00 Jocelyn 78740.1.1 ity of 3.104.2.7 [place] .3.321668 Medica l .8 Branch 2023-02-05 2023-02-05 Refill [place], 1.2.840.0 [id number] Univers 00:00:00 00:00:00 Jocelyn 18933.1.1 ity of 3.104.2.7 [place] .3.622404 Medica l .8 Branch 2023-02-01 2023-02-01 Telephone [place], 1.2.840.2 [id number] Univers 00:00:00 00:00:00 Jocelyn 68352.1.1 ity of 3.104.2.7 [place] .3.173875 Medica l .8 Branch 2023-02-01 2023-02-01 Telephone [place], 1.2.840.5 [id number] Univers 00:00:00 00:00:00 Jocelyn 37845.1.1 ity of 3.104.2.7 [place] .3.590186 Medica l .8 Branch 2023-01-31 2023-01-31 Fay PAVON [facility] [id number] Univers 14:00:00 14:00:00 VALENTINA ity of [facility] 2023-01-31 2023-01-31 Travel 1.2.840.1 1.2.013.882 [id number] Univers 00:00:00 00:00:00 87592.1.1 350.1.13.10 ity of 3.104.2.7 4.[place].7.3.698 [place] .3.772733 084.8 Medica l .8 Branch 2023-01-30 2023-01-30 Office Barragan, 1.2.840.6 [id number] Univers 10:30:00 14:11:58 Visit Coy 71218.1.1 ity of 3.104.2.7 [place] .3.756935 Medica l .8 [place] 2023-01-30 2023-01-30 Office Fabiana, 1.2.840.7 [id number] Univers 11:20:00 13:12:03 Visit Alisa Esquivel 29426.1.1 ity of 3.104.2.7 [place] .3.106103 Medica l .8 [place] 2023-01-30 2023-01-30 Travel 1.2.840.1 1.2.669.666 [id number] [id number] Univers 00:00:00 00:00:00 19586.1.1 350.1.13.10 ity of 3.104.2.7 4.[place].7.3.698 [place] .3.888527 084.8 Medica l .8 [place] 2023-01-25 2023-01-25 Orders Doctor 1.2.840.3 [id number] Univers 00:00:00 00:00:00 Only Unassigned, 86073.1.1 ity of [place] 3.104.2.7 [place] .3.610213 Medica l .8 [place] 2023-01-20 2023-01-24 Inpatient X RISHABH [facility] [id number] Univers 13:38:00 16:30:00 JESI italberta of [facility] 2023-01-20 2023-01-24 Hospital Rose Wisdom 1.2.840.0 [id number] Univers 13:38:00 16:30:00 Encounter Jesi Keating 51315.1.1 ity of 3.104.2.7 [place] .3.576192 Medica l .8 [place] 2023-01-20 2023-01-20 Outpatient Tan MATHEW [facility] [id number] Univers 14:40:00 14:40:00 JOCELYN espinosa of [facility] 2023-01-20 2023-01-20 Telephone Willi 1.2.840.8 [id number] Univers 00:00:00 00:00:00 Shiwan 02678.1.1 ity of 3.104.2.7 [place] .3.233551 Medica l .8 Branch 2023-01-20 2023-01-20 Travel 1.2.840.1 1.2.092.016 4171 [id number] Univers 00:00:00 00:00:00 51864.1.1 350.1.13.10 ity of 3.104.2.7 4.2.7.3.698 [place] .3.234586 084.8 Medica l .8 Branch 2023-01-19 2023-01-19 Telephone Barragan, 1.2.840.3 [id number] Univers 00:00:00 00:00:00 Shiwan 22661.1.1 ity of 3.104.2.7 [place] .3.519785 Medica l .8 [place] 2023-01-19 2023-01-19 Telephone Priyanka, 1.2.840.6 [id number] Univers 00:00:00 00:00:00 Peter 59478.1.1 ity of 3.104.2.7 [place] .3.084034 Medica l .8 [place] 2023-01-17 2023-01-17 Outpatient R HELIO, [facility] [id number] Univers 14:00:00 14:00:00 ORLIN ity of [facility] 2023-01-17 2023-01-17 Telephone Priyanka, 1.2.840.7 [id number] Univers 00:00:00 00:00:00 Peter 84365.1.1 ity of 3.104.2.7 [place] .3.028312 Medica l .8 [place] 2023-01-13 2023-01-13 Outpatient R NAYELI [facility] [id number] Univers 13:30:00 14:07:27 AFSHAN ity of [facility] 2023-01-13 2023-01-13 Office Nayeli, 1.2.840.2 [id number] Univers 13:30:00 14:07:27 Visit Afshan 11943.1.1 i ty of A 3.104.2.7 [place] .3.790488 Medica l .8 [place] 2023-01-13 2023-01-13 Travel 1.2.840.1 1.2.699.316 2115 [id number] Univers 00:00:00 00:00:00 65156.1.1 350.1.13.10 ity of 3.104.2.7 4.[place].7.3.698 [place] .3.269084 084.8 Medica l .8 [place] 2023-01-06 2023-01-06 Out[facility] [id number] Univers 08:37:05 23:59:00 VALENTINA ity of [facility] 2023-01-06 2023-01-06 Hospital Pavon, 1.2.840.5 [id number] Univers 08:37:05 23:59:00 Encounter Valentina 56704.1.1 it y of 3.104.2.7 [place] .3.979099 Medica l .8 [place] 2022-12-29 2022-12-29 Telephone Leonel, 1.2.840.1 [id number] 100 [id number] Univers 00:00:00 00:00:00 Meron C 93583.1.1 ity of 3.104.2.7 [place] .3.761887 Medica l .8 [place] 2022-12-26 2022-12-26 Office Fabiana, 1.2.840.7 [id number] Univers 14:20:00 15:00:00 Visit Alisa Esquivel 69009.1.1 ity of 3.104.2.7 [place] .3.348317 Medica l .8 [place] 2022-12-26 2022-12-26 Outpatient [facility] [id number] Univers 14:20:00 14:20:00 ALISA ity of [facility] 2022-12-26 2022-12-26 Travel 1.2.840.1 1.2.228.946 [id number] [id number] Univers 00:00:00 00:00:00 44334.1.1 350.1.13.10 ity of 3.104.2.7 4.[place].7.3.698 [place] .3.969857 084.8 Medica l .8 [place] 2022-12-23 2022-12-23 Outpatient R REYESFLORABLU, [facility] [id number] Univers 13:00:00 14:06:22 PETER ity of [facility] 2022-12-23 2022-12-23 Office Priyanka, 1.2.840.1 [id number] Univers 13:00:00 14:06:22 Visit Jocelyn 91289.1.1 ity of 3.104.2.7 [place] .3.809272 Medica l .8 [place] 2022-12-23 2022-12-23 Office Willi, 1.2.840.1 [id number] Univers 09:00:00 09:54:56 Visit Coy 67995.1.1 ity of 3.104.2.7 [place] .3.038086 Medica l .8 [place] 2022-12-23 2022-12-23 Patient Cristalder, 1.2.840.2 [id number] Univers 00:00:00 00:00:00 Outreach Gisele Maddox 72645.1.1 i ty of 3.104.2.7 [place] .3.352142 Medica l .8 [place] 2022-12-22 2022-12-22 Office Dyllan, 1.2.840.6 [id number] 100 [id number] Univers 09:30:00 09:30:00 Visit Tiana Esquivel 39376.1.1 ity of 3.104.2.7 [place] .3.845557 Medica l .8 [place] 2022-12-22 2022-12-22 Outpatient [facility] [id number] Univers 09:30:00 09:27:10 TIANA ity of [facility] 2022-12-22 2022-12-22 Travel 1.2.840.1 1.2.076.078 8821 [id number] Univers 00:00:00 00:00:00 28493.1.1 350.1.13.10 ity of 3.104.2.7 4.[place].7.3.698 [place] .3.275546 084.8 Medica l .8 [place] 2022-12-20 2022-12-20 Outpatient R RADIOLOGY [facility] [id number] Univers 13:52:58 23:59:00 ity of [facility] 2022-12-20 2022-12-20 Hospital Radiology 1.2.840.9 [id number] Univers 13:52:58 23:59:00 Encounter Robyn Mock 76624.1.1 ity of 3.104.2.7 [place] .3.272413 Medica l .8 [place] 2022-12-20 2022-12-20 Travel 1.2.840.1 1.2.984.833 2626 [id number] Univers 00:00:00 00:00:00 66006.1.1 350.1.13.10 ity of 3.104.2.7 4.[place].7.3.698 [place] .3.286239 084.8 Medica l .8 [place] 2022-12-15 2022-12-15 Outpatient R HELIO, [facility] [id number] Univers 14:00:00 14:00:00 ORLIN ity [facility] 2022-12-14 2022-12-14 Patient Joshua, 1.2.840.9 [id number] Univers 00:00:00 00:00:00 Outreach Brittni Esquivel 70151.1.1 ity of 3.104.2.7 [place] .3.698135 Medica l .8 [place] 2022-12-13 2022-12-13 Telephone Leonel, 1.2.840.7 [id number] 100 [id number] Univers 00:00:00 00:00:00 Meron Wooten 49699.1.1 ity of 3.104.2.7 [place] .3.311931 Medica l .8 [place] 2022-12-12 2022-12-12 Outpatient [facility] [id number] Univers 15:00:00 15:19:30 VALENTINA ity [facility] 2022-12-12 2022-12-12 Office Pavon, 1.2.840.6 [id number] Univers 15:00:00 15:19:30 Visit Valentina 64101.1.1 ity of 3.104.2.7 [place] .3.815182 Medica l .8 [place] 2022-12-12 2022-12-12 Travel 1.2.840.1 1.2.708.313 2664 [id number] Univers 00:00:00 00:00:00 80505.1.1 350.1.13.10 ity of 3.104.2.7 4.[place].7.3.698 [place] .3.157746 084.8 Medica l .8 [place] 2022-12-08 2022-12-08 [facility], 1.2.840.7 [id number] 100 [id number] Univers 11:38:53 23:59:00 Encounter Masoodmarti 11846.1.1 it y of 3.104.2.7 [place] .3.298072 Medica l .8 [place] 2022-12-08 2022-12-08 Outpatient R [facility] [id number] Univers 11:38:52 23:59:00 RANIA ity of [facility] 2022-12-08 2022-12-08 [facility], 1.2.840.0 [id number] 100 [id number] Univers 11:38:52 23:59:00 Encounter Samuel 73084.1.1 it y of 3.104.2.7 [place] .3.868156 Medica l .8 [place] 2022-12-08 2022-12-08 Urgent Unknown, Attending 1.2.840.1 [id number] Univers 11:20:00 11:47:11 Care Lolis Samuel 73435.1.1 ity of 3.104.2.7 [place] .3.500662 Medica l .8 [place] 2022-12-08 2022-12-08 Telephone Leonel, 1.2.840.3 [id number] 100 [id number] Univers 00:00:00 00:00:00 Meron Wooten 85040.1.1 ity of 3.104.2.7 [place] .3.740736 Medica l .8 Branch 2022-12-08 2022-12-08 Travel 1.2.840.1 1.2.319.271 [id number] Univers 00:00:00 00:00:00 04766.1.1 350.1.13.10 ity of 3.104.2.7 4.[place].7.3.698 [place] .3.669654 084.8 Medica l .8 Branch 2022-12-06 2022-12-06 Outpatient R HELIO, [facility] [id number] Univers 14:00:00 16:11:20 ORLIN ity of [facility] 2022-12-06 2022-12-06 Ancillary Helio, 1.2.840.3 [id number] 100 [id number] Univers 14:00:00 16:11:20 Visit Orlin Maldonado 89842.1.1 ity of 3.104.2.7 [place] .3.078162 Medica l .8 Branch 2022-12-06 2022-12-06 Travel 1.2.840.1 1.2.321.544 9395 [id number] Univers 00:00:00 00:00:00 39260.1.1 350.1.13.10 ity of 3.104.2.7 4.2.7.3.698 [place] .3.592891 084.8 Medica l .8 Branch 2022-12-01 2022-12-01 Ancillary Helio, 1.2.840.8 [id number] Univers 14:00:00 16:26:42 Visit Orlin Mladonado 93607.1.1 ity of 3.104.2.7 [place] .3.740766 Medica l .8 Branch 2022-12-01 2022-12-01 Orders Doctor 1.2.840.1 [id number] Univers 00:00:00 00:00:00 Only Unassigned, 29286.1.1 ity of [place] 3.104.2.7 [place] .3.829316 Medica l .8 Branch 2022-11-29 2022-11-30 Ancillary Helio, 1.2.840.7 [id number] Univers 14:00:00 08:45:39 Visit Orlin Maldonado 62479.1.1 ity of 3.104.2.7 [place] .3.027415 Medica l .8 Branch 2022-11-30 2022-11-30 Travel 1.2.840.1 1.2.163.496 [id number] Univers 00:00:00 00:00:00 86325.1.1 350.1.13.10 ity of 3.104.2.7 4[place].3.698 [place] .3.330447 084.8 Medica l .8 Branch 2022-11-24 2022-11-24 Telephone Castaneda, 1.2.840.9 [id number] Univers 00:00:00 00:00:00 Meron Wooten 09435.1.1 ity of 3.104.2.7 [place] .3.575292 Medica l .8 Branch 2022-11-23 2022-11-23 Orders Doctor 1.2.840.3 [id number] 758 Univers 00:00:00 00:00:00 Only Unassigned, 09987.1.1 ity of [place] 3.104.2.7 [place] .3.172389 Medica l .8 Branch 2022-11-23 2022-11-23 Refill Priyanka, 1.2.840.4 [id number] Univers 00:00:00 00:00:00 Peter 46098.1.1 ity of 3.104.2.7 [place] .3.470464 Medica l .8 Branch 2022-11-22 2022-11-22 Ancillary Helio, 1.2.840.0 [id number] [id number] Univers 14:00:00 15:18:41 Visit Orlin Maldonado 47131.1.1 ity of 3.104.2.7 [place] .3.618179 Medica l .8 Branch 2022-11-22 2022-11-22 Travel 1.2.840.1 1.2.780.289 0016 7289 Univers 00:00:00 00:00:00 04830.1.1 350.1.13.10 ity of 3.104.2.[place].3.698 [place] .3.366092 084.8 Medica l .8 Branch 2022-11-17 2022-11-17 Telephone Castaneda, 1.2.840.7 [id number] [id number] Univers 00:00:00 00:00:00 Meron C 67428.1.1 ity of 3.104.2.7 [place] .3.360643 Medica l .8 Branch 2022-11-15 2022-11-15 Ancillary Cadet, 1.2.840.6 [id number] [id number] Univers 14:00:00 15:07:28 Visit Orlin Maldonado 14029.1.1 ity of 3.104.2.7 [place] .3.794269 Medica l .8 Branch 2022-11-15 2022-11-15 Telephone Tino, 1.2.840.7 [id number] 997 [id number] Univers 00:00:00 00:00:00 Reginolinda 00442.1.1 ity of 3.104.2.7 [place] .3.786075 Medica l .8 Branch 2022-11-15 2022-11-15 Orders Doctor 1.2.840.5 [id number] Univers 00:00:00 00:00:00 Only Unassigned, 80688.1.1 ity of [place] 3.104.2.7 [place] .3.592476 Medica l .8 Branch 2022-11-15 2022-11-15 Telephone Barragan, 1.2.840.7 [id number] 997 [id number] Univers 00:00:00 00:00:00 Coy 64465.1.1 ity of 3.104.2.7 [place] .3.375982 Medica l .8 Branch 2022-11-15 2022-11-15 Travel 1.2.840.1 1.2.942.275 1614 8953 Univers 00:00:00 00:00:00 66412.1.1 350.1.13.10 ity of 3.104.2.[place]3.698 [place] .3.405153 084.8 Medica l .8 [place] 2022-11-11 2022-11-11 Office Willi [facility] 1.2.840.114 [id number] Univers 09:30:00 10:15:13 Visit Coy BARBOZA 350.1.13.10 i ty [id number] [place] dical NAL 085 [facility] 2022-11-11 2022-11-11 Outpatient R COY BARRAG[facility] 10 [id number] Univers 09:30:00 10:15:13 COY BARRAGAN i ty of [facility] 2022-11-08 2022-11-08 Telephone [facility] 1.2.667.693 [id number] [id number] Univers 00:00:00 00:00:00 Meron C JONATHANTON 350.1.13.10 i ty [id number] Ct dicky NAL 296 [facility] 2022-11-07 2022-11-07 Telephone [facility] 1.2.905.021 [id number] [id number] Univers 00:00:00 00:00:00 Meron C TAMRA 350.1.13.10 i ty [place] [id number] [facility] 2022-11-04 2022-11-04 Orders Doctor DALY 1.2.840.114 [id number] Univers 00:00:00 00:00:00 Only Unassigned, IAN 350.1.13.10 ity of [place] [facility] 4.2.7.2.686 [place] [id number] [address] 2022-11-03 2022-11-03 Outpatient Tan [facility] [id number] Univers 14:00:00 15:20:11 ORLIN espinosa of [facility] 2022-11-03 2022-11-03 Ancillary Therapist, Adc Pulmonary [facility] 1.2.840.114 [id number] Univers 14:00:00 15:20:11 Visit Orlin Cadet 350.1.13. 10 ity of [place] [id number] Ct dical NAL 296 [facility] 2022-11-01 2022-11-01 Ancillary Therapist, Adc Pulmonary [facility] 1.2.840.114 [id number] Univers 14:00:00 15:52:26 Visit Orlin Cadet 350.1.13. 10 ity of [place] [id number] Ct dical NAL 296 [facility] 2022-10-28 2022-10-28 Telephone Willi [facility] 1.2.042.592 [id number] Univers 00:00:00 00:00:00 Coy BARBOZA 350.1.13.10 i ty [facility] 4.[place] [id number] Ct dical NAL 085 [facility] 2022-10-28 2022-10-28 Memo Banerjee [facility] 1.2.840.114 [id number] Univers 00:00:00 00:00:00 Allison BARBOZA 350.1.13.10 ity of [place] [id number] Ct dical NAL 231 [facility] 2022-10-27 2022-10-27 Ancillary Therapist, [facility] Pulmonary [facility] 1.2.840.114 [id number] Univers 13:00:00 14:55:08 Visit Orlin Cadet 350.1.13. 10 ity of [place] [id number] Ct dical NAL 296 [facility] 2022-10-27 2022-10-27 Telephone Willi [facility] 1.2.654.915 [id number] Univers 00:00:00 00:00:00 Coy BARBOZA 350.1.13.10 i ty of [place] [id number] Ct dical NAL 059 [facility] 2022-10-27 2022-10-27 Orders Doctor KAUFFMAN 1.2.840.114 [id number] Univers 00:00:00 00:00:00 Only Unassigned, IAN 350.1.13.10 ity of [place] [facility] 4.2.7.2.686 [place] [id number] [address] 2022-10-25 2022-10-25 Ancillary Therapist, Adc Pulmonary [facility] 1.2.840.114 [id number] Univers 14:00:00 16:19:49 Visit Orlin Cadet 350.1.13. 10 ity of [place] [id number] Ct dical [facility] 296 [facility] 2022-10-25 2022-10-25 Outpatient R HELIO [facility] [id number] Univers 14:00:00 14:00:00 ORLIN italberta [facility] 2022-10-24 2022-10-24 [facility] 1.2.840.114 [id number] Univers 00:00:00 00:00:00 Allison BARBOZA 350.1.13.10 ity of [place] [id number] Ct dical [facility] 231 [facility] 2022-10-24 2022-10-24 Telephone [facility] 1.2.967.162 [id number] Univers 00:00:00 00:00:00 Meron BARBOZA 350.1.13.10 i ty of [place] [id number] Ct dical NAL 296 [facility] 2022-10-19 2022-10-19 Telephone [facility] 1.2.310.519 [id number] Univers 00:00:00 00:00:00 Meron BARBOZA 350.1.13.10 i ty of [place] [id number] Ct dical NAL 296 [facility] 2022-10-19 2022-10-19 Orders Doctor KAUFFMAN 1.2.840.114 [id number] Univers 00:00:00 00:00:00 Only Unassigned, IAN 350.1.13.10 ity of [place] [facility] 4.2.7.2.686 [place] [id number] [facility] [address] 2022-10-13 2022-10-13 Ancillary Therapist, [facility] Pulmonary [facility] 1.2.840.114 [id number] Univers 14:00:00 14:00:00 Visit Orlin Cadet 350.1.13. 10 ity of [place] PROF[place] [id number] Ct dical NAL 296 [facility] 2022-10-11 2022-10-11 Telephone Leonel [facility] 1.2.794.662 [id number] Univers 00:00:00 00:00:00 Meron BARBOZA 350.1.13.10 i ty of [place] PROF[place] [id number] Ct dical NAL 296 [facility] 2022-10-04 2022-10-04 Clam Bed Worker Therapist, [facility] Respiratory [facility] 1.2.840.114 [id number] Univers 11:00:00 11:30:00 Visit Orlin Cadet 350.1.13. 10 ity of [place] [id number] [facility] [address] 2022-10-04 2022-10-04 Outpatient R HELIO [facility] [id number] Univers 11:00:00 11:00:00 ORLIN espinosa of [facility] 2022-10-04 2022-10-04 Orders Priyanka [facility] 1.2.840.114 [id number] Univers 00:00:00 00:00:00 Only Jocelyn BARBOZA 350.1.13.10 i ty of [place] [id number] Ct dical NAL 044 [facility] 2022-09-28 2022-09-28 Memo Banerjee [facility] 1.2.840.114 [id number] [id number] Univers 00:00:00 00:00:00 Allison BARBOZA 350.1.13.10 it[facility] 4.[place] PROF[place] [id number] Ct dical NAL 231 [facility] 2022-09-27 2022-09-27 Outpatient R PIRYANKA [facility] 1042 [id number] Univers 13:00:00 13:56:58 JOCELYN ity of [facility] 2022-09-27 2022-09-27 Office Priyanka [facility] 1.2.840.114 [id number] Univers 13:00:00 13:56:58 Visit Jocelyn BARBOZA 350.1.13.10 i ty of [place] [id number] Ct dical NAL 044 [facility] 2022-09-23 2022-09-23 Outpatient R TINO [facility] [id number] Univers 14:20:00 14:34:23 REGINOLINDA ity o f [facility] 2022-09-23 2022-09-23 Office [facility] 1.2.840.114 [id number] Univers 14:20:00 14:34:23 Visit Mauri BARBOZA 350.1.13.10 ity of [place] [id number] Ct dical NAL 059 [facility] 2022-09-20 2022-09-20 Outpatient R COY BARRAGAN [facility] 10 [id number] Univers 12:37:56 23:59:00 COY BARRAGAN i ty of [facility] 2022-09-20 2022-09-20 [facility] 1.2.840.114 [id number] Univers 12:37:56 23:59:00 Encounter Coy BARBOZA 350.1.13.10 ity [facility] 4.2.7.2.[place] [id number] [address] 2022-09-16 2022-09-16 Clam Bed Worker Matt, Adc Lab Main [facility] 1.2.8 40.114 [id number] Univers 10:30:00 10:45:00 Visit Coy Barragan 350.1.13.10 ity of [place] [id number] Ct dical NAL 353 [facility] 2022-09-16 2022-09-16 Outpatient R COY BARRAGAN [facility] 10 [id number] Univers 10:30:00 10:30:00 COY BARRAGAN i ty [facility] 2022-09-16 2022-09-16 Orders Doctor DALY 1.2.840.114 [id number] Univers 00:00:00 00:00:00 Only Unassigned, IAN 350.1.13.10 ity of [facility] 4.2.7.2.686 [place] [id number] [address] 2022-09-15 2022-09-15 Outpatient R COY BARRAGAN [facility] 10 [id number] Univers 11:00:00 12:09:41 COY BARRAGAN i ty [facility] 2022-09-15 2022-09-15 Office Willi [facility] 1.2.840.114 [id number] Univers 11:00:00 12:09:41 Visit Coy BARBOZA 350.1.13.10 i ty [facility] [place] [id number] Ct dical NAL 085 [facility] 2022-09-06 2022-09-06 Nurse Visit, [facility] Nurse [facility] 1..840.1 14 [id number] Univers 13:30:00 15:58:16 Visit Mauri Jiménez 350.1.13.10 ity [facility] 4.2.[place] [id number] Ct dical NAL 059 [facility] 2022-09-06 2022-09-06 Outpatient R TINO [facility] [id number] Univers 13:30:00 13:30:00 MAURI espinosa o f [facility] 2022-09-06 2022-09-06 Clam Bed Worker 2, Abdiaziz Lab [facility] 1.2.840.114 [id number] Univers 13:15:00 13:30:00 Visit Jocelyn Mathew 350.1.13.10 ity [facility] 4.[place] [id number] Ct dical [facility] 353 [facility] 2022-09-05 2022-09-05 Outpatient [facility] [id number] [id number] Univers 14:36:42 23:59:00 JOCELYN espinosa [facility] 2022-09-02 2022-09-02 Office [facility] 1.2.608.868 [id number] Univers 13:45:00 14:00:00 Visit Afshan ARREDONDO 350.1.13.10 ity [facility] [place]2.7.2.[place] [id number] [address] 2022-09-02 2022-09-02 Outpatient [facility] [id number] Univers 13:45:00 13:45:00 [facility] 2022-08-29 2022-08-29 Outpatient R [facility] [id number] Univers 14:00:00 14:00:00 JOCELYN espinosa [facility] 2022-08-28 2022-08-28 Telephone [facility] 1.2.840.114 [id number] Univers 00:00:00 00:00:00 Jocelyn BARBOZA 350.1.13.10 i ty of [place] [id number] [address] 2022-08-25 2022-08-25 Outpatient R [facility] 1042 [id number] Univers 16:00:00 17:08:44 JOCELYN espinosa [facility] 2022-08-25 2022-08-25 [facility] 1.2.840.114 [id number] Univers 16:00:00 17:08:44 Visit Jocelyn BARBOZA 350.1.13.10 i ty of [place] [id number] Ct dical [facility] 0[address] [facility] 2022-08-25 2022-08-25 Outpatient [facility] 1042 [id number] Univers 13:00:00 13:00:00 ALLISON espinosa of [facility] 2022-08-25 2022-08-25 Orders Doctor DALY 1.2.840.114 [id number] Univers 00:00:00 00:00:00 Only Unassigned, IAN 350.1.13.10 ity of [place] [facility] 4.2.7.2.686 [place] [id number] [facility] [address] 2022-08-24 2022-08-[address] [facility] 1.2.840.114 [id number] Univers 00:00:00 00:00:00 Secure Msg Mauri CASTILLODOMINICK 350.1.13.10 ity of [facility] 4.2.[place].2.[place] [id number] Ct dical NAL 059 [facility] 2022-08-23 2022-08-[address] [facility] 1.2.840.114 [id number] Univers 14:50:41 23:59:00 Encounter Mauri BARBOZA 350.1.13.10 ity of [facility] 4.2.[place] [id number] [facility] [address] 2022-08-23 2022-08-23 Clam Bed Worker Matt, Adc Lab Main [facility] 1.2.8 40.114 [id number] Univers 15:30:00 15:45:00 Visit Mauri Jiménez 350.1.13.10 [place] PROF[place] [id number] Ct dical NAL 353 [facility] 2022-08-23 2022-08-23 Outpatient R [facility] [id number] Univers 14:20:00 14:33:17 REGINOLINDA italberta o f [facility] 2022-08-23 2022-08-[address] [facility] 1.2.840.114 [id number] Univers 14:20:00 14:33:17 Visit Mauri BARBOZA 350.1.13.10 ity of [place] [id number] Ct dical NAL 059 [facility] 2022-08-23 2022-08-23 Orders Doctor DALY 1.2.840.114 [id number] Univers 00:00:00 00:00:00 Only Unassigned, IAN 350.1.13.10 ity of [place] [facility] 4.2.7.2.686 [place] [id number] [address] 2022-08-19 2022-08-19 Imm/Inj Vaccine, Adc Family Medicine [facility] 1.2.840.114 [id number] Univers 13:00:00 13:10:00 Visit Allison Banerjee 350.1. 13.10 ity of [place] [id number] Ct yuri PINA 044 [facility] 2022-08-19 2022-08-19 Outpatient [facility] [id number] [id number] Univers 13:00:00 13:00:00 ALLISON espinosa of [facility] 2022-07-27 2022-07-27 [facility] 1.2.111.379 [id number] Univers 11:38:28 23:59:00 Encounter SYLLETA 350.1.13.10 ity of [place] 4.2.7.2.686 [place] DANIAL?BLEA [id number] Ct yuri PERRY [address] MEDICAL OFFICE [facility] 2022-07-27 2022-07-27 Outpatient [facility] [id number] Univers 11:20:00 11:40:57 [facility] 2022-07-27 2022-07-27 Urgent [facility] 1.2.840.114 [id number] Univers 11:20:00 11:40:57 Care Rania HEALTH 350.1.13.10 it y of [facility] 4.2.7.2.686 [place] DANIAL?BLEA [id number] Ct yuri PERRY [address] MEDICAL OFFICE [facility] 2022-07-27 2022-07-[address] [facility] 1.2.277.979 [id number] Univers 00:00:00 00:00:00 Mauri BARBOZA 350.1.13.10 ity of [place] [id number] Ct dical NAL 059 [facility] 2022-07-27 2022-07-[address] [facility] 1.2.640.633 [id number] Univers 00:00:00 00:00:00 Mauri BARBOZA 350.1.13.10 ity of [place] 527.9909661 Ct dical NAL 059 [facility] 2022-07-22 2022-07-22 Outpatient R LAVONNE, [facility] [id number] Univers 10:40:00 10:40:00 ALLISON espinosa [facility] 2022-07-18 2022-07-18 Outpatient R [facility] [id number] Univers 13:51:13 23:59:00 MAURI espinosa o f [facility] 2022-07-18 2022-07-18 [facility] 1.2.840.114 [id number] Univers 13:51:13 23:59:00 Encounter Anthonymiguel TAMRA 350.1.13.10 ity of [facility] 4.2.7.2.[place] [id number] [facility] [address] [place] [address] 2022-07-18 2022-07-18 Clam Bed Worker Matt, Abdiaziz Lab Main [facility] 1.2.8 40.114 [id number] Univers 14:15:00 14:30:00 Visit Mauri Jiménez 350.1.13.10 ity of [place] 4[place] 179.1534079 Ct dical NAL 353 [facility] 2022-07-18 2022-07-18 Outpatient R [facility] [id number] Univers 13:00:00 13:25:20 MAURI espinosa o f [facility] 2022-07-18 2022-07-[address] [facility] 1.2.840.114 [id number] Univers 13:00:00 13:25:20 Visit Mauri TAMRA 350.1.13.10 ity of [place].2.[place] [id number] Ct dical NAL 059 [facility] 2022-07-18 2022-07-18 Outpatient R TINO [facility] [id number] Univers 13:00:00 13:00:00 MAURI espinosa o f [facility] 2022-07-15 2022-07-15 Refrobert Banerjee [facility] 1.2.840.114 [id number] Univers 00:00:00 00:00:00 Allison BARBOZA 350.1.13.10 ity [facility] 4.[place] [id number] Ct dical NAL 231 [facility] 2022-07-13 2022-07-13 Transition DALILA Davis 1.2.840.114 [id number] Univers 00:00:00 00:00:00 of Care Chad Thelma WOODALL 350.1.13.10 ity of [place].7.2.[place] [id number] [facility] [address] 2022-07-09 2022-07-11 Outpatient X J[facility]EL [facility] [id number] Univers 11:59:00 13:07:00 NICOLE ity [facility] 2022-07-09 2022-07-11 [facility] Arcelia Merrill [facility] 1.2.84 0.114 [id number] Univers 11:59:00 13:07:00 Encounter Nicole Weathers 350.1.13.10 ity [facility] 4.2.7.2.[place] [id number] [facility] [address] 2022-06-28 2022-06-28 Outpatient R SARAH TERAN [facility] [id number] Univers 10:00:00 10:38:15 SARAH TERAN ity [facility] 2022-06-28 2022-06-28 Office Haley [facility] 1.2.840.114 [id number] Univers 10:00:00 10:38:15 Visit Sarah BARBOZA 350.1.13.10 ity [facility] 4.2.7.2.[place] [id number] Ct dical NAL 044 [facility] 2022-06-28 2022-06-28 Outpatient R SARAH TERAN [facility] [id number] Univers 10:00:00 10:38:15 SARAH TERAN ity of [facility] 2022-06-27 2022-06-[address] [facility] 1.2.234.782 [id number] Univers 00:00:00 00:00:00 Mauri BARBOZA 350.1.13.10 ity of [place] [id number] [facility] 059 [facility] 2022-06-27 2022-06-27 Telephone [facility] 1.2.840.114 [id number] [facility] 00:00:00 00:00:00 Allison BARBOZA 350.1.13.10 ity [facility] 4.[place] 494.0031243 Ct [facility] 231 [facility] 2022-05-27 2022-05-27 Outpatient [facility] [id number] Univers 13:45:00 13:56:57 [facility] 2022-05-27 2022-05-27 Office [facility] 1.2.987.991 [id number] Univers 13:45:00 13:56:57 Visit Afshan PRIMARY 350.1.13.10 ity of A [facility] 4.2.7.2.[place] [id number] [facility] [address] 2022-05-27 2022-05-27 Outpatient R [facility] [id number] Univers 13:45:00 13:45:00 AFSHAN ity [facility] 2022-05-24 2022-05-24 Telephone [facility] 1.2.840.114 9 [id number] Univers 00:00:00 00:00:00 Allison BARBOZA 350.1.13.10 ity [facility] 4.2.[place] [id number] Ct dical NAL 231 [facility] 2022-05-17 2022-05-17 Outpatient R TINO, [facility] [id number] Univers 14:20:00 14:28:15 MAURI gonzalez [facility] 2022-05-17 2022-05-17 [facility] 1.2.840.114 [id number] Univers 14:20:00 14:28:15 Visit Mauri BARBOZA 350.1.13.10 ity [facility] [place]2.7.2.[place] [id number] Ct dical NAL 059 [facility] 2022-05-17 2022-05-17 Outpatient R TINO, [facility] [id number] Univers 14:20:00 14:28:15 MAURI gonzalez [facility] 2022-05-17 2022-05-17 Outpatient R TINO, [facility] [id number] Univers 14:20:00 14:20:00 MAURI gonzalez [facility] 2022-05-13 2022-05-13 Outpatient R SARAH TERAN [facility] [id number] Univers 13:30:00 14:18:17 SARAH TERAN [facility] 2022-05-13 2022-05-13 Office [facility] 1.2.840.114 [id number] [facility] 13:30:00 14:18:17 Visit Sarah BARBOZA 350.1.13.10 ity [facility] 4.[place] [id number] Ct dical NAL 044 [facility] 2022-05-13 2022-05-13 Outpatient R SARAH TERAN [facility] [id number] Univers 13:30:00 14:18:17 SARAH TERAN [facility] 2022-05-11 2022-05-11 Telephone [facility] 1.2.840.114 [id number] Univers 00:00:00 00:00:00 Allison BARBOZA 350.1.13.10 ity [facility] 4.2.[place] 580.5820941 Ct dical NAL [address] [facility] 2022-05-10 2022-05-10 Transition DALILA Davis 1.2.840.114 [id number] Univers 00:00:00 00:00:00 of Care Chad BELLEY 350.1.13.10 ity of [place].2.[place] [id number] [facility] [address] 2022-05-02 2022-05-07 Inpatient X [facility], [facility] JAY [id number] Univers 15:13:00 17:25:00 NICOLE ity of [facility] 2022-05-02 2022-05-07 [facility] Jaja Orellana [facility] 1.2.840.1 14 [id number] Univers 15:13:00 17:25:00 Encounter Nicole Weathers 350.1.13.10 ity of [place] [id number] [facility] [address] 2022-05-02 2022-05-02 Inpatient X [facility], [facility] JAY [id number] Univers 15:13:00 15:13:00 NICOLE ity [facility] 2022-05-02 2022-05-02 Orders Doctor DALY 1.2.840.114 [id number] Univers 00:00:00 00:00:00 Only Unassigned, IAN 350.1.13.10 ity of [place] [facility] 4.2.7.2.686 [place] [id number] [facility] [address] 2022-04-25 2022-04-25 Clam Bed Worker 2, Adc Lab [facility] 1.2.840.114 [id number] Univers 08:15:00 08:30:00 Visit Allison Banerjee 350.1. 13.10 ity of [place] [id number] Ct dical NAL 353 [facility] 2022-04-25 2022-04-25 Outpatient R LAVONNE [facility] [id number] Univers 08:15:00 08:15:00 ALLISON [facility] 2022-04-22 2022-04-22 Outpatient [facility] 1037 [id number] Univers 13:40:00 14:50:36 ALLISON [facility] 2022-04-22 2022-04-22 Office [facility] 1.2.840.114 [id number] Univers 13:40:00 14:50:36 Visit Allison BARBOZA 350.1.13.10 ity [place] [id number] [address] 2022-04-22 2022-04-22 [id number] Univers 13:40:00 14:50:36 [facility] 2022-04-22 2022-04-22 [facility] [id number] Univers 13:40:00 13:40:00 [facility] 2022-04-22 2022-04-22 Orders Doctor DALY 1.2.840.114 [id number] Univers 00:00:00 00:00:00 Only Unassigned, IAN 350.1.13.10 ity of [place] [facility] 4.2.7.2.686 [place] [id number] [address] 2022-04-14 2022-04-14 [facility] 1.2.840.114 [id number] Univers 00:00:00 00:00:00 Allison BARBOZA 350.1.13.10 [place] [id number] Ct dical [address] 2022-03-25 2022-03-25 Clam Bed Worker 2, [facility] 1.2.840.114 [id number] Univers 11:30:00 11:45:00 Visit Mauri Jiménez 350.1.13.10 [place] [id number] Ct dical NAL [address] [facility] 2022-03-25 2022-03-25 Outpatient R TINO, [facility] [id number] Univers 11:30:00 11:30:00 MAURI espinosa o f [facility] 2022-03-24 2022-03-24 Outpatient R [facility] [id number] Univers 15:15:00 15:15:00 ity of [facility] 2022-03-17 2022-03-[address] [facility] [id number] Univers 00:00:00 00:00:00 Mauri TAMRA 350.1.13.10 [facility] [place] [id number] Ct dichenna NAL 059 [facility] 2022-03-15 2022-03-15 [facility] 1.2.840.114 [id number] Univers 16:00:00 17:01:45 Visit Mauri BARBOZA 350.1.13.10 [facility] [place] [id number] Ct yuri NAL 059 [facility] 2022-03-15 2022-03-15 Outpatient R TINO, [facility] [id number] Univers 16:00:00 17:01:45 MAURI espinosa o [facility] 2022-03-15 2022-03-15 Outpatient R TINO, [facility] [id number] Univers 16:00:00 16:00:00 MAURI mckeey o [facility] 2022-03-15 2022-03-15 Ancillary Mildred Turner [facility] 1.2. 840.114 [id number] Univers 15:15:00 16:00:00 Visit Tiana Mijares 350.1.13.10 [facility] [id number] Ct dicky NAL 179 [facility] 2022-03-15 2022-03-15 Outpatient R DYLLAN, [facility] [id number] Univers 15:15:00 15:15:00 TIANA espinosa of [facility] 2022-03-14 2022-03-14 Outpatient R TINO, [facility] [id number] Univers 13:20:00 13:46:20 MAURI espinosa o maricel [facility] 2022-03-14 2022-03-14 Office Tino, [facility] 1.2.840.114 [id number] Univers 13:20:00 13:46:20 Visit Mauri BARBOZA 350.1.13.10 [facility] [place] [id number] Ct dical NAL 059 [facility] 2022-03-14 2022-03-14 Outpatient R TINO, [facility] [id number] Univers 13:20:00 13:46:20 MAURI connelly [facility] 2022-03-09 2022-03-09 Clam Bed Worker 2, Adc Lab [facility] 1.2.840.114 [id number] Univers 09:15:00 09:30:00 Visit Mauri Jiménez TAMRA 350.1.13.10 [facility] [id number] Ct dical NAL [address] [facility] 2022-03-09 2022-03-09 Outpatient R TINO, [facility] [id number] Univers 09:15:00 09:15:00 MAURI francisca lisa connelly [facility] 2022-03-08 2022-03-08 Clam Bed Worker 2, Adc Lab [facility] 1.2.840.114 [id number] Univers 16:00:00 16:15:00 Visit Mauri Jiménez TAMRA 350.1.13.10 it[facility] [place] [id number] Ct dical NAL 353 [facility] 2022-03-08 2022-03-08 Outpatient R TINO, [facility] [id number] Univers 16:00:00 16:00:00 MAURI francisca gonzalez maricel [facility] 2022-03-08 2022-03-08 Ancillary Mildred Turner [facility] 1.2. 840.114 [id number] Univers 15:15:00 16:00:00 Visit Tiana Mijares 350.1.13.10 it[facility] [place] [id number] Ct dical [facility] [address] [facility] 2022-03-08 2022-03-08 Outpatient R MIJARES [facility] [id number] Univers 15:15:00 15:15:00 TIANA espinosa [facility] 2022-03-02 2022-03-02 Ancillary Yuliana Tong [facility] 1 .2.840.114 [id number] Univers 15:15:00 16:00:00 Visit Tiana Mijares TAMRA 350.1.13.10 ity of [place] [id number] [facility] [address] [facility] 2022-03-02 2022-03-02 Outpatient R MIJARES [facility] [id number] Univers 15:15:00 15:15:00 TIANA espinosa [facility] 2022-03-02 2022-03-02 Outpatient R MIJARES [facility] [id number] Univers 15:15:00 15:15:00 [facility] 2022-02-28 2022-02-28 Telephone [facility] 1.2.840.114 [id number] Univers 00:00:00 00:00:00 Allison BARBOZA 350.1.13.10 it[place] of [place] [id number] [facility] [address] [facility] 2022-02-22 2022-02-22 Refrobert [facility] 1.2.840.114 [id number] Univers 00:00:00 00:00:00 Jocelyn BARBOZA 350.1.13.10 i ty [facility] 4.[place] [id number] Ct dic[address] 2022-02-21 2022-02-21 Outpatient R CRISTI CALLEJAS [facility] [id number] Univers 13:00:00 15:56:25 ity [facility] 2022-02-21 2022-02-21 Office Juvencio Callejashi [facility] 1.2.840.114 [id number] Univers 13:00:00 15:56:25 Visit HEALTH 350.1.13.10 it y of [place].2.[place] [id number] [address] OFFICE BUILDING 2022-02-21 2022-02-21 Outpatient R JUVENCIO CALLEJASHI [facility] [id number] Univers 13:00:00 13:00:00 ity of [facility] 2022-02-11 2022-02-11 Outpatient R TINO, [facility] [id number] Univers 13:20:00 13:51:39 MAURI espinosa o [facility] 2022-02-11 2022-02-[address] [facility] 1.2.840.114 [id number] Univers 13:20:00 13:51:39 Visit Mauri BARBOZA 350.1.13.10 ity of [place] [id number] [address] 2022-02-11 2022-02-11 Outpatient R TINO, [facility] [id number] Univers 13:20:00 13:51:39 MAURI espinosa o [facility] 2022-02-11 2022-02-11 Outpatient R TINO, [facility] [id number] Univers 13:20:00 13:20:00 MAURI espinosa o [facility] 2022-02-11 2022-02-[address] [facility] 1.2.898.251 [id number] Univers 00:00:00 00:00:00 Mauri BARBOZA 350.1.13.10 ity of [place] [id number] Ct [place] [address] [address] [facility] 2022-01-24 2022-01-24 Office [facility] 1.2.662.882 [id number] Univers 13:45:00 14:00:00 Visit Afshan PRIMARY 350.1.13.10 ity of [place].2.[place] [id number] Ct dicky [address] 2022-01-24 2022-01-24 Outpatient R NAYELI [facility] [id number] Univers 13:45:00 13:45:00 AFSHAN ity [facility] 2022-01-18 2022-01-18 Outpatient R SARAH TERAN [facility] [id number] Univers 13:30:00 14:21:29 [facility] 2022-01-18 Office [facility] 1.2.840.114 [id number] Univers 13:30:00 14:21:29 Visit Sarah BARBOZA 350.1.13.10 ity of [place] [id number] Ct dical [facility] [address] [facility] 2022-01-18 2022-01-18 Outpatient R SARAH TERAN [facility] [id number] Univers 13:30:00 14:21:29 [facility] 2022-01-17 2022-01-17 Refill Lavnone [facility] 1.2.840.114 [id number] Univers 00:00:00 00:00:00 Allison BARBOZA 350.1.13.10 [facility] 4.[place] [id number] Ct dical [facility] 0[address] [facility] 2022-01-14 2022-01-14 Outpatient R NAYELI [facility] [id number] Univers 13:00:00 13:00:00 [facility] 2022-01-13 2022-01-13 Refill Priyanka [facility] 1.2.840.114 [id number] Univers 00:00:00 00:00:00 Jocelyn BARBOZA 350.1.13.10 i ty [facility] 4.[place] [id number] Ct dical NAL [address] [facility] 2022-01-12 2022-01-12 Outpatient R TINO, [facility] [id number] Univers 07:59:08 23:59:00 MAURI connelly [facility] 2022-01-12 2022-01-12 Outpatient R TINO, [facility] [id number] Univers 08:00:00 08:00:00 MAURI connelly [facility] 2022-01-10 2022-01-10 Outpatient R TINO, [facility] [id number] Univers 13:40:00 14:27:52 MAURI connelly [facility] 2022-01-10 2022-01-[address] [facility] 1.2.840.114 [id number] Univers 13:40:00 14:27:52 Visit Mauri TAMRA 350.1.13.10 it[facility] [place] [id number] Ct dical NAL 059 [facility] 2022-01-05 2022-01-05 Outpatient [facility] [id number] Univers 10:50:47 23:59:00 ALLISON ity of [facility] 2022-01-05 2022-01-05 [facility] 1.2.840.114 [id number] Univers 10:50:47 23:59:00 Encounter Allison CASTILLOTON 350.1.13.10 it[place] [id number] [facility] [address] 2022-01-04 2022-01-04 [facility] 1.2.840.114 [id number] Univers 00:00:00 00:00:00 Allison A JONATHANTON 350.1.13.10 it[place] of [place] [id number] Ct dical NAL 044 [facility] 2022-01-03 2022-01-03 Refill [facility] 1.2.840.114 [id number] Univers 00:00:00 00:00:00 Allison A JONATHANTON 350.1.13.10 it[place] of [place] [phone] [facility] 0[address] [facility] 2021-12-21 2021-12-21 Office Banerjee, [facility] 1.2.840.114 [id number] Univers 14:20:00 15:27:18 Visit Allison BARBOZA 350.1.13.10 ity [facility] [place] [id number] [facility] [address] [facility] 2021-12-21 2021-12-21 Outpatient [facility] [id number] Univers 13:40:00 15:27:10 [facility] 2021-12-21 2021-12-21 Office [facility] 1..840.114 [id number] Univers 13:40:00 15:27:10 Visit Allison BARBOZA 350.1.13.10 ity [facility] [place] [id number] [address] 2021-12-21 2021-12-21 [facility] [id number] Univers 14:20:00 14:20:00 [facility] 2021-12-21 2021-12-21 Outpatient [facility] [id number] Univers 14:20:00 14:20:00 [facility] 2021-12-21 2021-12-21 Outpatient [facility] [id number] Univers 13:40:00 13:40:00 [facility] 2021-12-21 2021-12-21 Orders Doctor KAUFFMAN 1.2.840.114 [id number] Univers 00:00:00 00:00:00 Only Unassigned, IAN 350.1.13.10 ity of [place] [facility] 4.2.7.2.686 [place] [id number] [address] 2021-11-24 2021-11-24 Out[facility] [id number] Univers 13:20:00 13:22:44 MAURI espinosa o f [facility] 2021-11-24 2021-11-24 Office [facility] 1.2.840.114 [id number] Univers 13:20:00 13:22:44 Visit Mauri BARBOZA 350.1.13.10 it[place] of [place] [id number] Ct dical NAL 059 [facility] 2021-11-02 2021-11-02 [facility] 1.2.840.114 [id number] Univers 00:00:00 00:00:00 Allison BARBOZA 350.1.13.10 it[place] [id number] Ct dical NAL 044 [facility] 2021-10-25 2021-10-25 [facility] 1.2.840.114 [id number] Univers 00:00:00 00:00:00 Allison BARBOZA 350.1.13.10 ity [place] [id number] Ct dical NAL 044 [facility] 2021-10-14 2021-10-14 [facility]ill [facility] 1.2.840.114 [id number] Univers 00:00:00 00:00:00 Mauri BARBOZA 350.1.13.10 ity of [place] [id number] Ct dical NAL 231 [facility] 2021-10-11 2021-10-11 Outpatient Tan FORD [facility] [id number] Univers 13:00:00 13:20:37 AFSHAN ity [facility] 2021-10-11 2021-10-11 Outpatient Tan FORD [facility] [id number] Univers 13:00:00 13:00:00 AFSHAN ity [facility] 2021-10-11 2021-10-11 Outpatient Tan FORD [facility] [id number] Univers 13:00:00 13:00:00 AFSHAN ity of [facility] 2021-10-11 2021-10-11 Office [facility] 1.2.489.399 [id number] Univers 12:27:24 12:42:24 Visit Afshan PRIMARY 350.1.13.10 it[place] P[place] [id number] Ct dical [address] 2021-09-07 2021-09-07 Outpatient R [facility] [id number] [facility] 13:15:00 13:45:04 AFSHAN ity [facility] 2021-09-07 2021-09-07 Office [facility] 1.2.360.073 [id number] [facility] 12:32:00 13:45:04 Visit Afshan PRIMARY 350.1.13.10 [place] [id number] [address] 2021-09-07 2021-09-07 Outpatient R [facility] [id number] [facility] 13:15:00 13:15:00 AFSHAN ity [facility] 2021-09-02 2021-09-02 [facility] 1.2.840.114 [id number] [facility] Univers 00:00:00 00:00:00 Blanca BARBOZA 350.1.13.10 ity of [place] [id number] Ct dical NAL 231 [facility] 2021-08-30 2021-08-30 [facility] 1.2.840.114 [id number] Univers 15:06:01 23:59:00 Encounter Afshan PRIMARY 350.1.13.10 [place] [id number] Ct dical [address] 2021-08-30 2021-08-30 Outpatient R [facility] [id number] Univers 15:06:01 23:59:00 AFSHAN ity of [facility] 2021-08-30 2021-08-30 Outpatient R NAYELI [facility] [id number] Univers 14:00:00 15:05:29 AFSHAN ity of [facility] 2021-08-30 2021-08-30 Office [facility] 1.2.403.022 [id number] Univers 13:38:15 15:05:29 Visit Afshan PRIMARY 350.1.13.10 [place] [id number] Ct dical [address] 2021-08-30 2021-08-30 Out[facility] [id number] Univers 13:40:00 13:40:00 MAURI espinosa o f [facility] 2021-08-28 2021-08-28 Refrobert Das [facility] 1.2.840.114 [id number] Univers 00:00:00 00:00:00 Blanca Barboza 350.1.13.10 ity of [place] Profess[place] [id number] Ct dical nal 231 [facility] 2021-08-25 2021-08-25 Office [facility] 1.2.840.114 [id number] Univers 13:09:19 13:34:16 Visit Mauri Barboza 350.1.13.10 it[place] of [place].2.[place] Profess[place] [id number] Ct dical nal 059 [facility] 2021-08-25 2021-08-25 Outpatient [facility] [id number] Univers 13:20:00 13:20:00 MAURI espinosa o f [facility] 2021-08-25 2021-08-25 Memo [facility] 1.2.840.114 [id number] Univers 00:00:00 00:00:00 Allison Barboza 350.1.13.10 ity of [place] Profess[place] [phone] Ct dical nal 044 [facility] 2021-08-20 2021-08-20 Office [facility] 1.2.840.114 [id number] Univers 11:32:35 12:04:25 Visit Dalila A [facility] 350.1.13.10 i ty of [place] 4.2.7.2.686 [place] Danial?Blea [id number] Ct dichenna kney 044 [facility] Office [facility] 2021-08-20 2021-08-20 Outpatient R ADALGISA [facility] [id number] Univers 11:30:00 11:30:00 DALILA italberta [facility] 2021-08-18 2021-08-18 Outpatient R [facility] [id number] Univers 13:15:00 13:15:00 ity [facility] 2021-08-18 2021-08-18 Clam Bed Worker 2, Adc Lab [facility] 1.2.840.114 [id number] Univers 12:57:10 13:12:10 Visit Allison Banerjee 350.1. 13.10 it[place] of [place] Profess[place] [id number] Ct yuri [facility] 353 [facility] 2021-08-17 2021-08-17 Outpatient R LAVONNE [facility] [id number] Univers 11:00:00 12:35:02 ALLISON rafialberta [facility] 2021-08-17 2021-08-17 Office [facility] 1.2.840.114 [id number] Univers 10:56:29 12:35:02 Visit Allison BARBOZA 350.1.13.10 it[place] [id number] Ct dical NAL 231 [facility] 2021-08-04 2021-08-04 Refill Pippa [facility] 1.2.840.114 [id number] Univers 00:00:00 00:00:00 Blanca Barboza 350.1.13.10 ity of [place] Profess[place] [id number] Ct dical nal 044 [facility] 2021-07-29 2021-07-29 Telephone [facility] 1.2.684.820 [id number] Univers 00:00:00 00:00:00 Mauri Barboza 350.1.13.10 it[place] of [place] [id number] Ct dical nal 059 [facility] 2021-07-27 2021-07-27 Clam Bed Worker 2, Adc Lab [facility] 1.2.840.114 [id number] Univers 13:44:40 13:59:40 Visit Mauri Jiménez 350.1.13.10 ity of [place].2.[place] Profess[place] [id number] Ct dical nal 353 [facility] 2021-07-27 2021-07-27 Outpatient R ALBERTO [facility] [id number] Univers 13:50:00 13:50:00 MORGAN espinosa [facility] 2021-07-27 2021-07-27 Imm/Inj Nurse, Adc Pob Immunization [facility] 1.2.840.114 [id number] Univers 13:41:10 13:41:18 Visit Morgan Martell 350.1.13 .10 ity of [place].2.[place] Profess[place] [id number] Ct dical jose luis 421 [facility] 2021-07-27 2021-07-27 Office [facility] 1.2.840.114 [id number] Univers 13:06:05 13:34:39 Visit Mauri Barboza 350.1.13.10 it[place] of [place] [id number] Ct dical nal 059 [facility] 2021-07-27 2021-07-27 Outpatient R TINO [facility] [id number] Univers 13:20:00 13:20:00 MAURI connelly [facility] 2021-07-23 2021-07-23 Outpatient R LAVONNE [facility] [id number] Univers 14:20:00 14:20:00 ALLISON espinosa [facility] 2021-05-20 2021-05-20 Office [facility] 12.840.114 [id number] Univers 07:57:57 08:32:32 Visit Blanca Barboza 350.1.13.10 it[place] of [place] [id number] [facility] 044 [facility] 2021-05-20 2021-05-20 Outpatient R [facility] [id number] Univers 08:00:00 08:00:00 BLANCA ity o f [facility] 2021-05-18 2021-05-18 Telephone [facility] 12.840.114 [id number] Univers 00:00:00 00:00:00 Allison Thelma Cast[place] 350.1.13.10 it[place] of [place] Profess[place] [id number] Ct dic[address] 2021-05-16 2021-05-16 [facility] 12.840.114 [id number] Univers 00:00:00 00:00:00 Management Allison Castilloton 350.1.13.10 ity of [place] [phone] [address] 2021-05-14 2021-05-14 [facility] 12.840.114 8 [id number] Univers 00:00:00 00:00:00 Allison A [place] 350.1.13.10 it[place] of [place] Profess[place] [phone] Ct dic[address] 2021-05-13 2021-05-13 [facility] 1.2.840.114 [id number] Univers 00:00:00 00:00:00 Allison A [place] 350.1.13.10 ity of [place] 4[place].7.2.[place] Profess[place] [id number] Ct dic[address] 2021-05-10 2021-05-10 Telephone Lavonne [facility] 1.2.840.114 [id number] Univers 00:00:00 00:00:00 Allison Barboza 350.1.13.10 ity of [place].2.[place] Profess[place] [id number] Ct dical [facility] 044 [facility] 2021-05-04 2021-05-04 Clam Bed Worker 2, Adc Lab [facility] 1.2.840.114 [id number] Univers 10:43:46 10:58:46 Visit Allison Banerjee 350.1. 13.10 ity of [place] 4[place].2.[place] [phone] [facility] 353 [facility] 2021-05-04 2021-05-04 Office Lavonne [facility] 1.2.840.114 [id number] Univers 08:23:37 10:03:10 Visit Allison Barboza 350.1.13.10 it[place] of [place] [id number] [facility] 231 [facility] 2021-05-04 2021-05-04 Outpatient R LAVONNE [facility] [id number] [id number] Univers 08:40:00 08:40:00 ALLISON ity of [facility] 2021-05-04 2021-05-04 Orders Doctor KAUFFMAN 1.2.840.114 [id number] Univers 00:00:00 00:00:00 Only Unassigned, IAN 350.1.13.10 ity of [place] [facility] 4.2.7.2.686 [place] [id number] [address] 2021-05-03 2021-05-03 Refill Lavonne [facility] 1.2.840.114 [id number] Univers 00:00:00 00:00:00 Allison Barboza 350.1.13.10 it[place] of [place] [id number] Ct dical nal 231 [facility] 2021-04-26 2021-04-26 Clam Bed Worker 2, Adc Lab [facility] 1.2.840.114 [id number] Univers 13:55:57 14:10:57 Visit Mauri Jiménez 350.1.13.10 it[place] of [place] [phone] Ct dical nal 353 [facility] 2021-04-26 2021-04-26 Office Tino [facility] 1.2.840.114 [id number] Univers 13:22:00 13:51:05 Visit Mauri Barboza 350.1.13.10 it[place] of [place] [id number] Ct dical jose luis 059 [facility] 2021-04-26 2021-04-26 Outpatient R TINO [facility] [id number] Univers 13:40:00 13:40:00 MAURI mckeey o f [facility] 2021-04-15 2021-04-15 Telephone [facility] 1.2.840.114 [id number] Univers 00:00:00 00:00:00 Allison Barboza 350.1.13.10 it[place] [id number] Ct dical nal 044 [facility] 2021-04-08 2021-04-08 [facility]ill [facility] 1.2.840.114 [id number] Univers 00:00:00 00:00:00 Allison Barboza 350.1.13.10 it[place] of [place] [phone] Ct dical nal 044 [facility] 2021-03-04 2021-03-04 Refill [facility] 1.2.840.114 [id number] Univers 00:00:00 00:00:00 Jocelyn Barboza 350.1.13.10 i ty of [place].2.[place] [id number] Ct dical nal 044 [facility] 2021-03-02 2021-03-02 [facility] 1.2.356.342 [id number] Univers 12:41:09 23:59:00 Encounter Blanca Barboza 350.1.13.10 it[place] of [place] [id number] [facility] [address] 2021-03-02 2021-03-02 Outpatient R [facility] [id number] Univers 12:41:09 23:59:00 BLANCA espinosa o maricel [facility] 2021-03-02 2021-03-02 Outpatient R [facility] [id number] Univers 00:00:00 00:00:00 BLANCA espinosa o f [facility] 2021-03-02 2021-03-02 Orders Doctor DALY 1.2.840.114 [id number] Univers 00:00:00 00:00:00 Only Unassigned, IAN [id number] ity of [place] [facility] 4.2.7.2.686 [place] [phone] [facility] [address] 2021-02-23 2021-02-[address] [facility] 1.2.840.114 [id number] Univers 13:18:47 13:59:44 Visit Mauri Barboza [id number] it[place] of [id number] [place] [address] [phone] dical nal 059 [facility] 2021-02-23 2021-02-23 Outpatient R [facility] [id number] Univers 13:40:00 13:40:00 MAURI gonzalez f [facility] 2021-02-23 2021-02-23 Refrobert Banerjee [facility] 1.2.840.114 [id number] Univers 00:00:00 00:00:00 Allison Barboza [id number] [id number] [facility] [phone] Ct dical nal 231 [facility] 2021-02-23 2021-02-23 [facility] 1.2.840.114 [id number] Univers 00:00:00 00:00:00 Jocelyn Barboza [id number] [id number] [phone] Ct dical nal 231 [facility] 2021-02-19 2021-02-19 [facility] 1.2.840.114 [id number] Univers 00:00:00 00:00:00 Jocelyn [place] [id number] [id number] [phone] Ct dical nal 044 [facility] 2021-02-17 2021-02-17 [facility] 1.2.840.114 [id number] Univers 00:00:00 00:00:00 Blanca Barboza [id number] [id number] [phone] Ct dicky nal 044 [facility] 2021-02-16 2021-02-16 [facility] [id number] [id number] Univers 10:53:10 23:59:00 Encounter Blanca Barboza [id number] ity of [place] 4.2.7.2.[address] [facility] [phone] [facility] [address] [place] 2021-02-16 2021-02-16 [facility] [id number] Univers 10:52:41 10:52:41 Encounter Blanca Barboza [id number] it[place] [id number] [place] [facility] [phone] [facility] [address] 2021-02-16 2021-02-16 Outpatient R [facility] [id number] Univers 00:00:00 00:00:00 BLANCA connelly [facility] 2021-02-16 2021-02-16 Orders Doctor DALY 1.2.840.114 [id number] Univers 00:00:00 00:00:00 Only Unassigned, IAN 350.1.13.10 ity of [place] [facility] 4.2.7.2.686 [place] [phone] [facility] 009 [address] 2021-02-09 2021-02-09 Pre Visit DALY Moe 1.2.840.114 [id number] Univers 00:00:00 00:00:00 Outreach Enio SOSA 350.1.13.10 i ty of [facility] 4.2.7.2.686 [place] [phone] [facility] 082 Branch 2021-02-09 2021-02-09 Pre Visit DALY Moe 1.2.840.114 [id number] Univers 00:00:00 00:00:00 Outreach Enio SOSA 350.1.13.10 i ty of [facility] 4.2.7.2.686 [place] [phone] [facility] 082 Branch 2021-02-04 2021-02-04 [facility] 1.2.840.114 [id number] Univers 00:00:00 00:00:00 Blanca Barboza 350.1.13.10 ity of [place].[address] [phone] dical [facility] 044 Branch Building 2021-02-03 2021-02-03 [facility] 1.2.993.378 [id number] Univers 14:26:14 23:59:00 Encounter Blanca Barboza 350.1.13.10 ity of [place].2.[place] [phone] [facility] 800 Branch 2021-02-03 2021-02-03 Outpatient R [facility] [id number] Univers 00:00:00 00:00:00 BLANCA espinosa o f [facility] 2021-02-03 2021-02-03 Orders Doctor DALY 1.2.840.114 [id number] Univers 00:00:00 00:00:00 Only Unassigned, IAN 350.1.13.10 ity of [place] [facility] 4.2.7.2.686 [place] [phone] [facility] 009 Branch 2021-02-01 2021-02-01 Clam Bed Worker 2, Adc Lab [facility] 1.2.840.114 [id number] Univers 08:58:19 09:13:19 Visit Blanca Das Tamra 350.1.13.10 [place] of [place]2.[place] [phone] Ct dical nal 353 [facility] 2021-02-01 2021-02-01 [facility] 1.2.840.114 [id number] Univers 08:01:17 08:55:03 Visit Blanca Tamra 350.1.13.10 [place] of [place] [phone] [facility] 044 [facility] 2021-02-01 2021-02-01 Outpatient R PIPPA [facility] [id number] Univers 08:00:00 08:00:00 BLANCA espinosa o f [facility] 2020-12-17 2020-12-17 Outpatient R NEISHA [facility] [id number] Univers 15:40:00 15:40:00 MIRZA italberta [facility] 2020-12-10 2020-12-10 Hospital [facility] 1.2.840.114 [id number] Univers 09:30:00 23:59:00 Encounter Dalila Barboza 350.1.13.10 ity of [place].7.2.[place] [phone] [facility] [address] 2020-12-10 2020-12-10 Urgent Provider, [facility] Urgent Care [facility] 1.2.840.114 [id number] Univers 08:27:08 09:42:50 Tia Cuello [facility] 350.1.13.10 ity of [place] 4.2.7.2.686 [place] Professio [phone] [facility] [address] Office Building One 2020-12-10 2020-12-10 Outpatient R HAYLEY [facility] [id number] Univers 08:40:00 08:40:00 TIA [facility] 2020-12-10 2020-12-10 Orders Doctor KAUFFMAN 1.2.840.114 [id number] Univers 00:00:00 00:00:00 Only Unassigned, IAN 350.1.13.10 ity of [place] [facility] 4.2.7.2.686 [place] [phone] [address] 2020-12-09 2020-12-09 [facility] 1.2.840.114 [id number] Univers 00:00:00 00:00:00 Allison Barboza 350.1.13.10 ity of [place].2.[place] [phone] [address] 2020-12-02 2020-12-02 [facility] 1.2.840.114 [id number] Univers 00:00:00 00:00:00 Allison Barboza 350.1.13.10 ity of [place]7.2.[place] [phone] [address] 2020-11-30 2020-11-30 Laboratory Pc, Adc Echo Room 1 - [facility] 1 .2.840.114 [id number] [facility] 08:47:17 09:47:17 Only Marui Jiménez 350.1.13.10 ity of [place].7.2.[place] [phone] [facility] 059 [facility] 2020-11-30 2020-11-30 Outpatient R [facility] [id number] Univers 09:00:00 09:00:00 ity of [facility] 2020-11-27 2020-11-27 [facility] 1.2.840.114 [id number] Univers 00:00:00 00:00:00 Allison Barboza 350.1.13.10 ity of [place].7.2.[place] [phone] [address] 2020-11-26 2020-11-26 Outpatient R NEISHA [facility] [id number] Univers 16:40:00 16:40:00 MIRZA ity of [facility] 2020-11-25 2020-11-25 Clam Bed Worker 2, Adc Lab [facility] 1.2.840.114 [id number] Univers 09:32:41 09:47:41 Visit Allison Banerjee 350.1. 13.10 ity of [place]2.7.2.[place] [phone] Ct yuri pina 353 [facility] 2020-11-25 2020-11-25 Office [facility] 1.2.840.114 [id number] Univers 08:41:39 09:01:39 Visit Mauri Barboza 350.1.13.10 ity of [place]2.7.2.[place] Profess[place] [phone] Ct dical nal 059 [facility] 2020-11-25 2020-11-25 Outpatient R TINO [facility] [id number] Univers 09:00:00 09:00:00 MAURI espinosa o f [facility] 2020-11-03 2020-11-03 Memo Fernandez [facility] 1.2.840.114 [id number] Univers 00:00:00 00:00:00 [facility] 350.1.13.10 it y of Panda Barboza 4.2.7.2.686 [place] Professio [phone] Ct jaironky jose luis 044 [facility] One 2020-10-28 2020-10-28 Outpatient R KIERA STOVER [facility] [id number] Univers 16:15:00 16:15:00 KIERA STOVER ity of [facility] 2020-10-12 2020-10-15 Inpatient [facility] ER [id number] [facility] 15:47:00 05:13:08 49 [facility] 2020-10-15 2020-10-15 Telephone Lavonne [facility] 1.2.840.114 [id number] Univers 00:00:00 00:00:00 Allison Barboza 350.1.13.10 ity of [place].2.[place] [phone] Ct yuri pina 231 [facility] 2020-10-14 2020-10-14 Telephone [facility] 1.2.840.114 [id number] Univers 00:00:00 00:00:00 Allison Barboza 350.1.13.10 ity of [place].7.2.[place] Profess[place] [phone] Ct dical nal 044 [facility] 2020-10-11 2020-10-11 Telephone [facility] 1.2.038.299 [id number] Univers 00:00:00 00:00:00 Dalila [facility] 350.1.13.10 i ty of Surgical 4.2.7.2.686 [place] Specialti [phone] Ct dical es 370 [facility] 2020-10-07 2020-10-07 Laboratory Lab, Adc Fam Pob I [facility] 1.2 840.114 [id number] Univers 09:00:45 09:20:45 Only Dalila [facility] 350.1.13.10 ity of [place] 4.2.7.2.686 [place] Professio [phone] Ct dical nal 044 [facility] 2020-10-07 2020-10-07 Outpatient R [facility] [id number] Univers 09:20:00 09:20:00 ity of [facility] 2020-10-05 2020-10-05 Telephone [facility] 1.2.255.927 [id number] Univers 00:00:00 00:00:00 Mauri Barboza 350.1.13.10 ity of [place].2.[place] [phone] Ct dical nal 059 [facility] 2020-10-02 2020-10-02 [facility] Lavonne [facility] 1.2.840.114 [id number] Univers 00:00:00 00:00:00 Allison Barboza 350.1.13.10 ity of [place]7.2.[place] [phone] Ct dical nal 231 [facility] 2020-10-02 2020-10-02 [facility] 1.2.840.114 [id number] Univers 00:00:00 00:00:00 Jocelyn Barboza 350.1.13.10 i ty of [place].7.2.[place] [phone] [facility] 044 [facility] 2020-10-01 2020-10-01 Orders Doctor DALY 1.2.840.114 [id number] Univers 00:00:00 00:00:00 Only Unassigned, IAN 350.1.13.10 ity of [place] [facility] 4.2.7.2.686 [place] [phone] [address] 2020-09-07 2020-09-07 Refill Baenrjee, [facility] 1.2.840.114 [id number] Univers 00:00:00 00:00:00 Allison Barboza 350.1.13.10 ity of [place].2.[place] [phone] [address] 2020-08-12 2020-08-12 Outpatient R PRIYANKA [facility] [id number] Univers 15:00:00 15:00:00 JOCELYN espinosa [facility] 2020-08-12 2020-08-12 Nurse Nurse, [facility] 1.2.840.114 [id number] Univers 14:35:39 14:55:39 Visit Jocelyn Mathew 350.1.13.10 ity of [place].2.[place] [phone] [address] 2020-07-20 2020-07-20 Refill [facility] 1.2.840.114 [id number] Univers 00:00:00 00:00:00 Allison Barboza 350.1.13.10 ity of [place].7.2.[place] [phone] [address] 2020-07-10 2020-07-10 Refrobert AlvaradoCARLSBAD MED[facility] 1.2.840.114 [id number] Univers 00:00:00 00:00:00 Haroldo Barboza 350.1.13.10 i ty of [place] 4[place].2.[place] [phone] [address] Building 2020-06-03 2020-06-03 Outpatient R [facility] [id number] Univers 10:40:00 10:40:00 ity of [facility] 2020-06-03 2020-06-03 Laboratory Lab, Adc Fam Pob I [facility] 1.2. 840.114 [id number] Univers 10:15:39 10:35:39 Only Izzyjoce Tia [facility] 350.1.13.10 ity of [place] 4.2.7.2.686 [place] Professio [phone] [facility] [address] Office Building One 2020-05-25 2020-05-[address] [facility] 1.2.840.114 [id number] Univers 13:48:04 14:18:23 Visit Mauri Barboza 350.1.13.10 ity of [place].2.[place] Profess[place] [phone] [facility] 059 [facility] 2020-05-25 2020-05-25 [facility] [id number] Univers 14:00:00 14:00:00 ANTHONYMIGUEL francisca o f [facility] 2020-04-10 2020-04-10 Refill Lavonne [facility] ..840.114 [id number] [facility] 00:00:00 00:00:00 Allison Barboza 350.1.13.10 ity of [place].2.[place] [phone] [facility] 231 [facility] 2020-04-01 2020-04-01 Outpatient R PRIYANKA [facility] [id number] Univers 13:00:00 13:00:00 JOCELYN espinosa [facility] 2020-04-01 2020-04-01 Telemedici Ramesh Fernandez [facility] 1 .2.840.114 [id number] Univers 08:02:07 08:32:07 ne Visit Jocelyn Mathew 350.1.13.10 ity of [place].7.2.[place] Profess[place] [phone] [facility] 044 [facility] 2020-03-28 2020-03-28 Ref[facility] 1.2.840.114 [id number] [facility] 00:00:00 00:00:00 Allison Renee [place] 350.1.13.10 ity of [place] 4[place].7.2.[place] [phone] [address] 2020-03-20 2020-03-20 Telephone [facility] 1.2.840.114 [id number] Univers 00:00:00 00:00:00 Allison Rneee [place] 350.1.13.10 ity of [place] 4[place].2.[place] [phone] [address] 2020-02-18 2020-02-18 Outpatient R [facility] [id number] Univers 13:40:00 13:40:00 MAURI espinosa o f [facility] 2020-02-18 2020-02-18 Telemedici [facility] 1.2.840.114 [id number] Univers 08:04:29 08:24:29 ne Visit Mauri Barboza 350.1.13.10 ity of [place].7.2.[place] [phone] [address] 2020-01-14 2020-01-14 Office [facility] 1.2.840.114 [id number] Univers 10:23:58 11:16:59 Visit Mauri Barboza 350.1.13.10 ity of [place] 4[place]2.[place].2.[place] [phone] [address] 2020-01-14 2020-01-14 Outpatient R TINO [facility] [id number] Univers 10:40:00 10:40:00 MAURI espinosa o f [facility] 2020-01-10 2020-01-10 Karen Ayoub [facility] 1.2.840. 114 [id number] Univers 09:25:32 10:05:32 Visit Tiana Mijares 350.1.13.10 ity of [place].2.[place] Profess[place] [phone] Ct dical nal 179 [facility] 2020-01-10 2020-01-10 Outpatient R [facility] [id number] Univers 09:20:00 09:20:00 TIANA espinosa [facility] 2020-01-08 2020-01-08 Ancillary ShukriJackieAnita K [facility] 1.2.840 .114 [id number] Univers 09:03:51 09:43:51 Visit Tiana Mijares 350.1.13.10 ity [facility] 4.2.7.2.[place] Profess[place] [phone] Ct dical nal 179 [facility] 2020-01-07 2020-01-07 Outpatient R PRIYANKA [facility] [id number] Univers 10:43:44 23:59:00 JOCELYN espinosa [facility] 2020-01-07 2020-01-07 [facility] 1.2.840.114 [id number] Univers 10:43:00 23:59:00 Encounter Jocelyn Barboza 350.1.13.10 [facility] [place].2.7.2.[place] [phone] [facility] [address] 2020-01-07 2020-01-07 Outpatient R PRIYANKA [facility] [id number] Univers 00:00:00 00:00:00 JOCELYN espinosa [facility] 2020-01-02 2020-01-02 Office [facility] 1.2.840.114 [id number] Univers 14:40:26 16:24:53 Visit Jocelyn Barboza 350.1.13.10 i ty [facility] 4[place]2.7.2.[place] [phone] Ct dical nal 044 [facility] 2020-01-02 2020-01-02 Outpatient R PRIYANKA [facility] [id number] Univers 15:00:00 15:00:00 JOCELYN espinosa [facility] 2020-01-01 2020-01-01 Ancillary Anita Watt Jaja [facility] 1.2.840 .114 [id number] Univers 07:42:36 08:22:36 Visit Jocelyn Mathew 350.1.13.10 ity of [place].2.[place] [phone] Ct dical nal 179 [facility] 2019-12-30 2019-12-30 Ancillary Karen Payton [facility] 1.2.840. 114 [id number] [facility] 07:54:21 08:34:21 Visit Jocelyn Mathew 350.1.13.10 ity of [place].2.[place] [phone] [facility] 179 [facility] 2019-12-30 2019-12-30 Outpatient R PRIYANKA [facility] [id number] Univers 08:00:00 08:00:00 JOCELYN espinosa [facility] 2019-12-27 2019-12-27 Telephone [facility] 1.2.840.114 [id number] Univers 00:00:00 00:00:00 Jocelyn Barboza 350.1.13.10 i ty of [place].2.[place] [phone] [facility] 044 [facility] 2019-12-25 2019-12-25 Karen Ayoub [facility] 1.2.840. 114 [id number] Univers 08:40:52 09:40:52 Visit Jocelyn Mathew 350.1.13.10 ity of [place] 4[place].2.[place] [phone] Ct dical [facility] 179 [facility] 2019-12-25 2019-12-25 Telephone [facility] 1.2.840.114 [id number] Univers 00:00:00 00:00:00 Jocelyn Barboza 350.1.13.10 i ty of [place].2.[place] [phone] Ct dical nal 044 [facility] 2019-12-23 2019-12-23 Telephone [facility] 1.2.840.114 [id number] Univers 00:00:00 00:00:00 Jocelyn Barboza 350.1.13.10 i ty [place].2.[place] [phone] [address] 2019-12-20 2019-12-20 Telephone [facility] 1.2.840.114 7 [id number] Univers 00:00:00 00:00:00 Allison Barboza 350.1.13.10 ity of [place] 4[place].2.[place] [phone] [address] 2019-12-19 2019-12-19 Telephone [facility] 1.2.840.114 [id number] Univers 00:00:00 00:00:00 Jocelyn Barboza 350.1.13.10 i ty of [place] 4[place]2.7.2.[place] [phone] [address] 2019-12-18 2019-12-18 [facility] 1.2.840.114 [id number] Univers 12:53:00 23:59:00 Encounter Jocelyn Barboza 350.1.13.10 ity of [place] 4.2.7.2.686 [facility] [place] [phone] [address] 2019-12-18 2019-12-18 [facility] 1.2.840.114 [id number] Univers 12:52:00 12:52:00 Encounter Jocelyn Barboza 350.1.13.10 ity of [place] 4.2.7.2.686 [facility] [place] [phone] [address] 2019-12-18 2019-12-18 Outpatient R [facility] [id number] Univers 12:51:33 12:51:00 JOCELYN ity of [facility] 2019-12-18 2019-12-18 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 [facility] 1.2.840.114 [id number] Univers 09:54:49 10:09:49 Visit Jocelyn Mathew 350.1.13.10 ity of [place].2.[place] [phone] Ct dical nal 353 [facility] 2019-12-10 2019-12-10 Office Priyanka [facility] 1.2.840.114 [id number] Univers 08:20:26 09:35:31 Visit Jocelyn Barboza 350.1.13.10 i ty of [place] 4[place]2.7.2.[place] [phone] Ct dical nal 044 [facility] 2019-12-10 2019-12-10 Orders Doctor DALY 1.2.840.114 [id number] Univers 00:00:00 00:00:00 Only Unassigned, IAN 350.1.13.10 ity of [place] [facility] 4.2.7.2.686 [place] [phone] [address] 2019-11-25 2019-11-25 Ramesh Brunner [facility] 1.2.840.114 [id number] Univers 00:00:00 00:00:00 Sugar Barboza 350.1.13.10 i ty [place].2.[place] [phone] Ct dical nal 231 [facility] 2019-07-16 2019-07-16 Office Tino, [facility] 1.2.840.114 [id number] Univers 16:01:17 16:43:16 Visit Mauri Barboza 350.1.13.10 it[place] of [place]2.7.2.[place] [phone] Ct dical nal 059 [facility] 2019-06-07 2019-06-07 Orders Doctor DALY 1.2.840.114 [id number] Univers 00:00:00 00:00:00 Only Unassigned, IAN 350.1.13.10 [facility] 4.2.7.2.686 [place] [phone] [address] 2019-05-14 2019-05-14 Telephone Lavonne ILNATALIE 1.2.840.114 [id number] Univers 00:00:00 00:00:00 Allison Barboza 350.1.13.10 it[place].2.[place] [phone] Ct dical [facility] 231 [facility] 2019-03-28 2019-03-29 Outpatient nullFlavo MNA [id number] Memoria 20:45:00 04:59:59 r Neurology 00 l Nataliia Sheehan 2019-03-28 2019-03-29 Outpatient nullFlavo MNA [id number] Memoria 20:45:00 04:59:59 r Neurology 00 l Nataliia Sheehan 2019-03-28 2019-03-28 Outpatient TRACEY Perez [id number] 15:45:00 23:59:59 Benji 00 Aniceto 2019-03-28 2019-03-28 Outpatient ARPIT MUNSON [id number] Memoria 15:45:00 15:45:00 00 marco antonio Sheehan Results Test Description Test Time Test Comments Results Result Comments Source POCT GLUCOSE (AUTOMATED) 2023-03-03 18:00:37 Test Item Value Reference Range Interpretation Comme nts POCT GLU (test code = 0784539322) 345 mg/dL 70-110 H Lab Interpretation (test code = 94805-2) Abnormal [facility] GLUCOSE (AUTOMATED)2023-03-03 16:47:17 Test Item Value Reference Range Interpretation Comments POCT GLU (test code = 6083182329) 330 mg/dL 70-110 H Lab Interpretation (test code = Abnormal 73537-1) [facility] GLUCOSE (AUTOMATED)2023-03-03 13:17:09 Test Item Value Reference Range Interpretation Comments POCT GLU (test code = 4659210868) 173 mg/dL 70-110 H Lab Interpretation (test code = Abnormal 64253-5) [facility] GLUCOSE (AUTOMATED)2023-03-03 11:45:24 Test Item Value Reference Range Interpretation Comments POCT GLU (test code = 7317681414) 79 mg/dL 70-110 Lab Interpretation (test code = Normal 20173-9) [facility] GLUCOSE (AUTOMATED)2023-03-03 10:53:21 Test Item Value Reference Range Interpretation Comments POCT GLU (test code = 9390548030) 49 mg/dL 70-110 LL Lab Interpretation (test code = Abnormal 11764-5) [facility] GLUCOSE (AUTOMATED)2023-03-03 02:12:31 Test Item Value Reference Range Interpretation Comments POCT GLU (test code = 8224234987) 285 mg/dL 70-110 H Lab Interpretation (test code = Abnormal 63292-4) [facility] GLUCOSE (AUTOMATED)2023-03-02 22:30:10 Test Item Value Reference Range Interpretation Comments POCT GLU (test code = 4526658356) 277 mg/dL 70-110 H Lab Interpretation (test code = Abnormal 64471-6) [facility] GLUCOSE (AUTOMATED)2023-03-02 16:49:32 Test Item Value Reference Range Interpretation Comments POCT GLU (test code = 3783618600) 272 mg/dL 70-110 H Lab Interpretation (test code = Abnormal 82803-3) [facility] GLUCOSE (AUTOMATED)2023-03-02 12:46:42 Test Item Value Reference Range Interpretation Comments POCT GLU (test code = 8989267987) 92 mg/dL 70-110 Lab Interpretation (test code = Normal 81095-5) [facility] GLUCOSE (AUTOMATED)2023-03-02 12:06:19 Test Item Value Reference Range Interpretation Comments POCT GLU (test code = 2179715765) 68 mg/dL 70-110 L Lab Interpretation (test code = Abnormal 69188-3) [facility] GLUCOSE (AUTOMATED)2023-03-02 04:18:19 Test Item Value Reference Range Interpretation Comments POCT GLU (test code = 0185945698) 278 mg/dL 70-110 H Lab Interpretation (test code = Abnormal 23390-3) [facility] GLUCOSE (AUTOMATED)2023-03-02 01:22:00 Test Item Value Reference Range Interpretation Comments POCT GLU (test code = 9487064199) 317 mg/dL 70-110 H Lab Interpretation (test code = Abnormal 97833-8) [facility] GLUCOSE (AUTOMATED)2023-03-01 21:56:44 Test Item Value Reference Range Interpretation Comments POCT GLU (test code = 9085519764) 257 mg/dL 70-110 H Lab Interpretation (test code = Abnormal 50870-4) [facility] GLUCOSE (AUTOMATED)2023-03-01 16:04:31 Test Item Value Reference Range Interpretation Comments POCT GLU (test code = [id number]) 254 mg/dL 70-110 H Lab Interpretation (test code = Abnormal 89754-7) [facility] GLUCOSE (AUTOMATED)2023-03-01 13:08:36 Test Item Value Reference Range Interpretation Comments POCT GLU (test code = [id number]) 162 mg/dL 70-110 H Lab Interpretation (test code = Abnormal 77161-0) [facility] GLUCOSE (AUTOMATED)2023-03-01 01:59:26 Test Item Value Reference Range Interpretation Comments POCT GLU (test code = [id number]) 257 mg/dL 70-110 H Lab Interpretation (test code = Abnormal 45947-8) [facility] GLUCOSE (AUTOMATED)2023-02-28 23:11:30 Test Item Value Reference Range Interpretation Comments POCT GLU (test code = [id number]) 231 mg/dL 70-110 H Lab Interpretation (test code = Abnormal 29993-9) [facility] GLUCOSE (AUTOMATED)2023-02-28 21:35:38 Test Item Value Reference Range Interpretation Comments POCT GLU (test code = [id number]) 194 mg/dL 70-110 H Lab Interpretation (test code = Abnormal 80303-2) [facility] GLUCOSE (AUTOMATED)2023-02-28 17:36:32 Test Item Value Reference Range Interpretation Comments POCT GLU (test code = [id number]) 298 mg/dL 70-110 H Lab Interpretation (test code = Abnormal 11028-4) [facility] GLUCOSE (AUTOMATED)2023-02-28 13:09:50 Test Item Value Reference Range Interpretation Comments POCT GLU (test code = 3620227508) 191 mg/dL 70-110 H Lab Interpretation (test code = Abnormal 55561-4) [facility] GLUCOSE (AUTOMATED)2023-02-28 01:59:18 Test Item Value Reference Range Interpretation Comments POCT GLU (test code = 0285341655) 166 mg/dL 70-110 H Lab Interpretation (test code = Abnormal 07306-1) [facility] GLUCOSE (AUTOMATED)2023-02-27 21:30:17 Test Item Value Reference Range Interpretation Comments POCT GLU (test code = 3540575135) 282 mg/dL 70-110 H Lab Interpretation (test code = Abnormal 99448-9) [facility] GLUCOSE (AUTOMATED)2023-02-27 17:09:42 Test Item Value Reference Range Interpretation Comments POCT GLU (test code = 4012014055) 198 mg/dL 70-110 H Lab Interpretation (test code = Abnormal 55264-4) [facility] GLUCOSE (AUTOMATED)2023-02-27 16:44:10 Test Item Value Reference Range Interpretation Comments POCT GLU (test code = 8987937337) 190 mg/dL 70-110 H Lab Interpretation (test code = Abnormal 39015-0) [facility] GLUCOSE (AUTOMATED)2023-02-27 13:03:14 Test Item Value Reference Range Interpretation Comments POCT GLU (test code = 5320901321) 155 mg/dL 70-110 H Lab Interpretation (test code = Abnormal 27043-0) [facility] METABOLIC PANEL (NA, K, CL, CO2, GLUCOSE, BUN, CREATININE, CA)2023-02-27 08:26:33 Test Item Value Reference Range Interpretation Comments NA (test code = 136 mmol/L 135-145 1341519223) K (test code = 3.5 mmol/L 3.5-5.0 8713444964) CL (test code = 104 mmol/L 98-108 8588486674) CO2 TOTAL (test code = 31 mmol/L 23-31 4938831689) AGAP (test code = 1 2-16 L 4782378755) BUN (test code = 61 mg/dL 7-23 H 7517272518) GLUCOSE (test code = 187 mg/dL 70-110 H 5031007078) CREATININE (test code = 1.99 mg/dL 0.50-1.04 H 5169729791) CALCIUM (test code = 8.8 mg/dL 8.6-10.6 8849965531) eGFR (test code = 24.7 mL/min/1.73m2 7667653424) BRUNO (test code = BRUNO) Association of [...] tests). Lab Interpretation Abnormal (test code = 29540-5) [facility] WITH [id number] 08:03:15 Test Item Value Reference Range Interpretation Comments WBC (test code = 10.02 See_Comment [Automated 4271-2) message] The sy stem which generated this result transmitted reference range : 4.30 - 11.10 10*3/?L. The reference range was not used to interpret this result as normal/abnormal . RBC (test code = 3.39 See_Comment L [Automated 289-8) message] The sy stem which generated this [...] (test code = 59.7 fL 39.0-49.9 H 38326-7) RDW-CV (test code = 16.5 % 12.0-15.5 H 788-0) PLT (test code = 154 See_Comment L [Automated 777-3) message] The sy stem which generated this result transmitted reference range : 166 - 358 10*3/ ?L. The reference r fariba was not used to interpret this result as normal/abnormal . MPV (test code = 10.8 fL 9.5-12.9 54971-6) NRBC/100 WBC (test 0.0 See_Comment [Automat ed code = 3648574404) message] The system which generated this result transmitted reference range : 0.0 - 10.0 /100 WBCs. The refer ence range was not u sed to interpret th is result as normal/abnormal . NRBC x10^3 (test code See_Comment [Auto mated = 4130492649) message] The s ystem which generated this result transmitted reference range : 10*3/?L. The reference range was not used to interpret this result as normal/abnormal . GRAN MAT (NEUT) % 73.5 % (test code = 770-8) IMM GRAN % (test code 0.90 % = 3949588485) LYMPH % (test code = 20.0 % 736-9) MONO % (test code = 5.3 % 5905-5) EOS % (test code = 0.1 % 713-8) BASO % (test code = 0.2 % 706-2) GRAN MAT x10^3(ANC) 7.37 10*3/uL 1.88-7.09 H (test code = 0886289877) IMM GRAN x10^3 (test 0.09 10*3/uL 0.00-0.06 H code = 4077781043) LYMPH x10^3 (test code 2.00 10*3/uL 1.32-3.29 = 731-0) MONO x10^3 (test code 0.53 10*3/uL 0.33-0.92 = 742-7) EOS x10^3 (test code = 0.03-0.39 L 711-2) BASO x10^3 (test code 0.01-0.07 = 704-7) Lab Interpretation Abnormal (test code = 67512-4) [facility] GLUCOSE (AUTOMATED)2023-02-27 02:14:26 Test Item Value Reference Range Interpretation Comments POCT GLU (test code = 9330448835) 267 mg/dL 70-110 H Lab Interpretation (test code = Abnormal 91032-0) [facility] GLUCOSE (AUTOMATED)2023-02-26 23:10:51 Test Item Value Reference Range Interpretation Comments POCT GLU (test code = 6950849003) 266 mg/dL 70-110 H Lab Interpretation (test code = Abnormal 66150-9) [facility] GLUCOSE (AUTOMATED)2023-02-26 20:16:57 Test Item Value Reference Range Interpretation Comments POCT GLU (test code = 0212087543) 276 mg/dL 70-110 H Lab Interpretation (test code = Abnormal 37183-6) [facility] GLUCOSE (AUTOMATED)2023-02-26 17:03:50 Test Item Value Reference Range Interpretation Comments POCT GLU (test code = 8762410126) 457 mg/dL 70-110 HH Lab Interpretation (test code = Abnormal 80635-7) [facility] GLUCOSE (AUTOMATED)2023-02-26 12:54:38 Test Item Value Reference Range Interpretation Comments POCT GLU (test code = 6444968324) 172 mg/dL 70-110 H Lab Interpretation (test code = Abnormal 24907-3) [facility] GLUCOSE (AUTOMATED)2023-02-26 10:25:29 Test Item Value Reference Range Interpretation Comments POCT GLU (test code = 220 mg/dL 70-110 H Notifi ed Provider [id number]) Lab Interpretation (test Abnormal code = 52946-5) [facility] 07:[facility]:19 Test Item Value Reference Range Interpretation Comments POCT GLU (test code = 6343022663) 327 mg/dL 70-110 H Lab Interpretation (test code = Abnormal 26489-4) [facility] 04:42:02 Test Item Value Reference Range Interpretation Comments POCT GLU (test code = 0967826921) 397 mg/dL 70-110 H Lab Interpretation (test code = Abnormal 06389-7) [facility] 04:42:01 Test Item Value Reference Range Interpretation Comments POCT GLU (test code = 8196187613) 403 mg/dL 70-110 H Lab Interpretation (test code = Abnormal 84539-3) [facility] GLUCOSE (AUTOMATED)2023-02-26 01:32:20 Test Item Value Reference Range Interpretation Comments POCT GLU (test code = 9637864887) 393 mg/dL 70-110 H Lab Interpretation (test code = Abnormal 09190-6) [facility] 21:12:55 Test Item Value Reference Range Interpretation Comments POCT GLU (test code = 7020510301) 316 mg/dL 70-110 H Lab Interpretation (test code = Abnormal 01538-5) [facility] 16:33:46 Test Item Value Reference Range Interpretation Comments POCT GLU (test code = 4820371347) 272 mg/dL 70-110 H Lab Interpretation (test code = Abnormal 83002-0) [facility] 13:01:21 Test Item Value Reference Range Interpretation Comments POCT GLU (test code = 6900031276) 275 mg/dL 70-110 H Lab Interpretation (test code = Abnormal 74979-4) [facility] 01:17:06 Test Item Value Reference Range Interpretation Comments POCT GLU (test code = 9940516411) 328 mg/dL 70-110 H Lab Interpretation (test code = Abnormal 47110-5) [facility] 00:03:47 Test Item Value Reference Range Interpretation Comments POCT GLU (test code = 6872940215) 370 mg/dL 70-110 H Lab Interpretation (test code = Abnormal 08549-9) [facility] GLUCOSE (AUTOMATED)2023-02-24 22:09:08 Test Item Value Reference Range Interpretation Comments POCT GLU (test code = 6680821418) 468 mg/dL 70-110 HH Lab Interpretation (test code = Abnormal 95799-3) [facility] GLUCOSE (AUTOMATED)2023-02-24 17:03:56 Test Item Value Reference Range Interpretation Comments POCT GLU (test code = 2828904935) 367 mg/dL 70-110 H Lab Interpretation (test code = Abnormal 47657-4) [facility] GLUCOSE (AUTOMATED)2023-02-24 11:22:15 Test Item Value Reference Range Interpretation Comments POCT GLU (test code = 0833003016) 207 mg/dL 70-110 H Lab Interpretation (test code = Abnormal 71896-7) [facility]. METABOLIC PANEL ([id number])2023-02-24 10:04:37 Test Item Value Reference Range Interpretation Comments NA (test code = 134 mmol/L 135-145 L 5106480893) K (test code = 4.2 mmol/L 3.5-5.0 Slight 7254876833) hemolysis CL (test code = 99 mmol/L 98-108 0282081523) CO2 TOTAL (test code 34 mmol/L 23-31 H = 4756942408) AGAP (test code = 1 2-16 L 7185960424) BUN (test code = 82 mg/dL 7-23 H Slight 4672836188) hemolysis GLUCOSE (test code = 196 mg/dL 70-110 H 0855417170) CREATININE (test code 1.76 mg/dL 0.50-1.04 H = 9056294568) TOTAL BILI (test code 0.7 mg/dL 0.1-1.1 = 5790578572) CALCIUM (test code = 8.4 mg/dL 8.6-10.6 L 9777554954) T PROTEIN (test code 5.4 g/dL 6.3-8.2 L = 1493762331) ALBUMIN (test code = 2.7 g/dL 3.5-5.0 L 7931733610) ALK PHOS (test code = 57 U/L 34-122 Slight 1067787198) hemolysis ALTv (test code = 24 U/L 5-35 1742-6) AST(SGOT) (test code 24 U/L 13-40 Slight = 8708235945) hemolysis eGFR (test code = 28.5 mL/min/1.73m2 0454685118) BRUNO (test code = BRUNO) Association of [...] tests). Lab Interpretation Abnormal (test code = 32879-1) [facility]:04:37 Test Item Value Reference Range Interpretation Comments MAGNESIUM (test code = 6885216067) 2.6 mg/dL 1.7-2.4 H Lab Interpretation (test code = Abnormal 63621-0) [facility] 10:04:37 Test Item Value Reference Range Interpretation Comments PHOSPHORUS (test code = 0506935429) 5.2 mg/dL 2.5-5.0 H Lab Interpretation (test code = Abnormal 20640-2) [facility] WITH [id number] 09:41:14 Test Item Value Reference Range Interpretation [...] (test code = 61.4 fL 39.0-49.9 H 20712-9) RDW-CV (test code = 17.2 % 12.0-15.5 H 788-0) PLT (test code = 152 See_Comment L [Automated 777-3) message] The sy stem which generated this result transmitted reference range : 166 - 358 10*3/ ?L. The reference r fariba was not used to interpret this result as normal/abnormal . MPV (test code = 11.3 fL 9.5-12.9 53797-2) NRBC/100 WBC (test 0.0 See_Comment [Automat ed code = 2479005125) message] The system which generated this result transmitted reference range : 0.0 - 10.0 /100 WBCs. The refer ence range was not u sed to interpret th is result as normal/abnormal . NRBC x10^3 (test code See_Comment [Auto mated = 3808157868) message] The s ystem which generated this result transmitted reference range : 10*3/?L. The reference range was not used to interpret this result as normal/abnormal . GRAN MAT (NEUT) % 83.9 % (test code = 770-8) IMM GRAN % (test code 0.40 % = 1656711938) LYMPH % (test code = 13.9 % 736-9) MONO % (test code = 1.7 % 5905-5) EOS % (test code = 0.0 % 713-8) BASO % (test code = 0.1 % 706-2) GRAN MAT x10^3(ANC) 7.83 10*3/uL 1.88-7.09 H (test code = 8328057232) IMM GRAN x10^3 (test 0.04 10*3/uL 0.00-0.06 code = 0503065178) LYMPH x10^3 (test code 1.30 10*3/uL 1.32-3.29 L = 731-0) MONO x10^3 (test code 0.16 10*3/uL 0.33-0.92 L = 742-7) EOS x10^3 (test code = 0.03-0.39 L 711-2) BASO x10^3 (test code 0.01-0.07 = 704-7) Lab Interpretation Abnormal (test code = 30454-2) [facility] 05:00:14 Test Item Value Reference Range Interpretation Comments POCT GLU (test code = 9996435671) 201 mg/dL 70-110 H Lab Interpretation (test code = Abnormal 81278-4) [facility] + Lactic [id number] 03:15:53 Test Item Value Reference Range Interpretation Comments PH (test code = 2) 7.44 7.35-7.45 PCO2 (test code = 50 See_Comment H [Automate d 8924475779) message] The sy stem which generated this result transmitted reference range : 35 - 45 mmHg. The reference range was not used to interpret this result as normal/abnormal . PO2 (test code = 78 See_Comment L [Automated 0321264219) message] The sy stem which generated this result transmitted reference range : 80 - 100 mmHg. The reference range was not used to interpret this result as normal/abnormal . HCO3 (test code = 33 See_Comment H [Automate d 8467817162) message] The sy stem which generated this result transmitted reference range : 22 - 26 mEq/L. The reference range was not used to interpret this result as normal/abnormal . BE (test code = 7.7 See_Comment H [Automated 8958585803) message] The sy stem which generated this result transmitted reference range : -3.0 - 3.0 mEq/ L. The reference r fariba was not used to interpret this result as normal/abnormal . THB (test code = 14.5 g/dL 12.0-16.0 6463249189) %O2HB (test code = 93.8 % 94.0-99.0 L 7367789953) %COHB ART (test code = 1.2 % 0.0-1.5 8371522515) %METHB ART (test code = 0.5 % 0.4-1.5 0373793079) VOL%O2 ART (test code = 19.2 % 15.0-23.0 3831006348) NA (test code = 137 mmol/L 135-145 7040520713) K+ (test code = 4.2 mmol/L 3.5-5.0 7720878175) AC CA IONZ (test code = 4.80 mg/dL 4.50-5.30 3452630131) GLUCOSE (test code = 190 mg/dL 70-110 H 7601022815) LACTIC ACID (test code 1.57 mmol/L 0.50-2.20 = 0038787733) Lab Interpretation Abnormal (test code = 53254-7) [facility] GLUCOSE (AUTOMATED)2023-02-23 21:54:48 Test Item Value Reference Range Interpretation Comments POCT GLU (test code = 5753698959) 135 mg/dL 70-110 H Lab Interpretation (test code = Abnormal 68308-4) [facility] GLUCOSE (AUTOMATED)2023-02-23 16:36:47 Test Item Value Reference Range Interpretation Comments POCT GLU (test code = 0397230566) 111 mg/dL 70-110 H Lab Interpretation (test code = Abnormal 40838-1) [facility] Lactic [id number] 13:42:21 Test Item Value Reference Range Interpretation Comments PH (test code = 2) 7.42 7.35-7.45 PCO2 (test code = 51 See_Comment H [Automate d 9401859072) message] The sy stem which generated this result transmitted reference range : 35 - 45 mmHg. The reference range was not used to interpret this result as normal/abnormal . PO2 (test code = 49 See_Comment L [Automated 1782013008) message] The sy stem which generated this result transmitted reference range : 80 - 100 mmHg. The reference range was not used to interpret this result as normal/abnormal . HCO3 (test code = 32 See_Comment H [Automate d 0503188366) message] The sy stem which generated this result transmitted reference range : 22 - 26 mEq/L. The reference range was not used to interpret this result as normal/abnormal . BE (test code = 6.6 See_Comment H [Automated 5038652765) message] The sy stem which generated this result transmitted reference range : -3.0 - 3.0 mEq/ L. The reference r fariba was not used to interpret this result as normal/abnormal . THB (test code = 12.5 g/dL 12.0-16.0 2388021645) %O2HB (test code = 84.4 % 94.0-99.0 L 9412719735) %COHB ART (test code = 0.5 % 0.0-1.5 4926360105) %METHB ART (test code = 0.3 % 0.4-1.5 L 9123883007) VOL%O2 ART (test code = 14.8 % 15.0-23.0 L 1666383941) NA (test code = 137 mmol/L 135-145 8125009384) K+ (test code = 4.1 mmol/L 3.5-5.0 0590108932) AC CA IONZ (test code = 4.60 mg/dL 4.50-5.30 4963623400) GLUCOSE (test code = 158 mg/dL 70-110 H 3986535325) LACTIC ACID (test code 1.57 mmol/L 0.50-2.20 = 8273486011) Lab Interpretation Abnormal (test code = 10611-7) [facility] 13:29:37 Test Item Value Reference Range Interpretation Comments POCT GLU (test code = 6931153177) 178 mg/dL 70-110 H Lab Interpretation (test code = Abnormal 21668-6) [facility]. METABOLIC PANEL ([id number])2023-02-23 11:24:10 Test Item Value Reference Range Interpretation Comments NA (test code = 136 mmol/L 135-145 2488419122) K (test code = 4.3 mmol/L 3.5-5.0 1327864951) CL (test code = 100 mmol/L 98-108 1818082749) CO2 TOTAL (test code = 35 mmol/L 23-31 H 1211705695) AGAP (test code = 1 2-16 L 8197021483) BUN (test code = 82 mg/dL 7-23 H 5491573431) GLUCOSE (test code = 122 mg/dL 70-110 H 5349675143) CREATININE (test code = 2.37 mg/dL 0.50-1.04 H 2541698798) TOTAL BILI (test code = 0.5 mg/dL 0.1-1.0 3489411549) CALCIUM (test code = 8.4 mg/dL 8.6-10.6 L 8544989399) T PROTEIN (test code = 5.2 g/dL 6.3-8.2 L 3379888731) ALBUMIN (test code = 2.7 g/dL 3.5-5.0 L 7293109976) ALK PHOS (test code = 67 U/L 34-122 2733858748) ALTv (test code = 25 U/L 5-35 1742-6) AST(SGOT) (test code = 21 U/L 13-40 3833921071) eGFR (test code = 20.2 mL/min/1.73m2 5271125444) BRUNO (test code = BRUNO) Association of [...] tests). Lab Interpretation Abnormal (test code = 55063-1) [facility] 11:14:43 Test Item Value Reference Range Interpretation Comments POCT GLU (test code = 3934047240) 224 mg/dL 70-110 H Lab Interpretation (test code = Abnormal 20307-0) [facility] 11:07:27 Test Item Value Reference Range Interpretation Comments MAGNESIUM (test code = 6544004025) 2.5 mg/dL 1.7-2.4 H Lab Interpretation (test code = Abnormal 68701-9) [id number] 10:38:24 Test Item Value Reference Range Interpretation Comments NT-proBNP (test code = 1150 pg/mL <=125 H 8404720768) BRUNO (test code = BRUNO) Biotin has been reported to cause a negative bias, interpret results relative to patient's use of biotin. Lab Interpretation (test Abnormal code = 02291-6) [facility] [id number] 10:38:24 Test Item Value Reference Range Interpretation Comments TROPONIN I (test code = 0.173 ng/mL <=0.034 H 0028358254) BRUNO (test code = BRUNO) Reference (Normal) [...] biotin. Lab Interpretation Abnormal (test code = 95199-8) [facility] WITH [id number] 10:31:21 Test Item Value Reference Range Interpretation Comments WBC (test code = 10.61 See_Comment [Automated 1890-2) message] The sy stem which generated this result transmitted reference range : 4.30 - 11.10 10*3/?L. The reference range was not used to interpret this result as normal/abnormal . RBC (test code = 4.30 See_Comment [Automated 509-8) message] The sy stem which generated this [...] (test code = 63.7 fL 39.0-49.9 H 40894-1) RDW-CV (test code = 17.5 % 12.0-15.5 H 788-0) PLT (test code = 183 See_Comment [Automated 927-3) message] The sy stem which generated this result transmitted reference range : 166 - 358 10*3/ ?L. The reference r fariba was not used to interpret this result as normal/abnormal . MPV (test code = 10.9 fL 9.5-12.9 91840-9) NRBC/100 WBC (test 0.0 See_Comment [Automat ed code = 7675470378) message] The system which generated this result transmitted reference range : 0.0 - 10.0 /100 WBCs. The refer ence range was not u sed to interpret th is result as normal/abnormal . NRBC x10^3 (test code See_Comment [Auto mated = 5428842086) message] The s ystem which generated this result transmitted reference range : 10*3/?L. The reference range was not used to interpret this result as normal/abnormal . GRAN MAT (NEUT) % 67.5 % (test code = 770-8) IMM GRAN % (test code 0.80 % = 6294349826) LYMPH % (test code = 23.2 % 736-9) MONO % (test code = 6.3 % 5905-5) EOS % (test code = 1.9 % 713-8) BASO % (test code = 0.3 % 706-2) GRAN MAT x10^3(ANC) 7.17 10*3/uL 1.88-7.09 H (test code = 2745709595) IMM GRAN x10^3 (test 0.08 10*3/uL 0.00-0.06 H code = 8123291976) LYMPH x10^3 (test code 2.46 10*3/uL 1.32-3.29 = 731-0) MONO x10^3 (test code 0.67 10*3/uL 0.33-0.92 = 742-7) EOS x10^3 (test code = 0.20 10*3/uL 0.03-0.39 711-2) BASO x10^3 (test code 0.03 10*3/uL 0.01-0.07 = 704-7) Lab Interpretation Abnormal (test code = 81061-8) [facility] GLUCOSE (AUTOMATED)2023-02-21 17:27:09 Test Item Value Reference Range Interpretation Comments POCT GLU (test code = 218 mg/dL 70-110 H Notifi ed Provider 8706028609) Lab Interpretation (test Abnormal code = 63102-8) [facility] GLUCOSE (AUTOMATED)2023-02-21 13:18:25 Test Item Value Reference Range Interpretation Comments POCT GLU (test code = 146 mg/dL 70-110 H Notifi ed Provider 1708808432) Lab Interpretation (test Abnormal code = 38154-4) [facility] GLUCOSE (AUTOMATED)2023-02-21 01:46:30 Test Item Value Reference Range Interpretation Comments POCT GLU (test code = 4991057864) 132 mg/dL 70-110 H Lab Interpretation (test code = Abnormal 13329-6) [facility] GLUCOSE (AUTOMATED)2023-02-20 23:25:52 Test Item Value Reference Range Interpretation Comments POCT GLU (test code = 7139080108) 199 mg/dL 70-110 H Lab Interpretation (test code = Abnormal 12323-5) [facility] GLUCOSE (AUTOMATED)2023-02-20 22:27:53 Test Item Value Reference Range Interpretation Comments POCT GLU (test code = 1789763718) 64 mg/dL 70-110 L Lab Interpretation (test code = Abnormal 38065-9) [facility] GLUCOSE (AUTOMATED)2023-02-20 17:13:05 Test Item Value Reference Range Interpretation Comments POCT GLU (test code = 4586611759) 252 mg/dL 70-110 H Lab Interpretation (test code = Abnormal 41900-5) [facility] 13:27:15 Test Item Value Reference Range Interpretation Comments POCT GLU (test code = 6401274897) 145 mg/dL 70-110 H Lab Interpretation (test code = Abnormal 56761-1) [facility]20 01:14:44 Test Item Value Reference Range Interpretation Comments POCT GLU (test code = 2626807008) 199 mg/dL 70-110 H Lab Interpretation (test code = Abnormal 38496-2) [facility] GLUCOSE (AUTOMATED)2023-02-19 22:36:30 Test Item Value Reference Range Interpretation Comments POCT GLU (test code = 79 mg/dL 70-110 Notifi ed Provider [id number]) Lab Interpretation (test Normal code = 06781-7) [facility]-19 18:06:59 Test Item Value Reference Range Interpretation Comments POCT GLU (test code = 5495608161) 312 mg/dL 70-110 H Lab Interpretation (test code = Abnormal 21342-5) [facility] GLUCOSE (AUTOMATED)2023-02-19 13:24:33 Test Item Value Reference Range Interpretation Comments POCT GLU (test code = 120 mg/dL 70-110 H Notifi ed Provider [id number]) Lab Interpretation (test Abnormal code = 56748-7) [facility]32:58 Test Item Value Reference Range Interpretation Comments PHOSPHORUS (test code = 6766782848) 4.8 mg/dL 2.5-5.0 Lab Interpretation (test code = Normal 91207-3) [facility] 10:32:58 Test Item Value Reference Range Interpretation Comments MAGNESIUM (test code = 0245972568) 2.5 mg/dL 1.7-2.4 H Lab Interpretation (test code = Abnormal 77484-2) [facility] (NA, K, CL, CO2, GLUCOSE, BUN, CREATININE, CA)2023-02-19 10:32:58 Test Item Value Reference Range Interpretation Comments NA (test code = 138 mmol/L 135-145 7921856788) K (test code = 4.0 mmol/L 3.5-5.0 8978894124) CL (test code = 101 mmol/L 98-108 7645271724) CO2 TOTAL (test code = 35 mmol/L 23-31 H 3356442082) AGAP (test code = 2 2-16 5950041400) BUN (test code = 91 mg/dL 7-23 H 6628485846) GLUCOSE (test code = 135 mg/dL 70-110 H 4329397460) CREATININE (test code = 1.89 mg/dL 0.50-1.04 H 1459516762) CALCIUM (test code = 8.7 mg/dL 8.6-10.6 9951236188) eGFR (test code = 26.2 mL/min/1.73m2 5084275510) BRUNO (test code = BRUNO) Association of [...] tests). Lab Interpretation Abnormal (test code = 77275-6) [facility] WITH [id number] 10:16:17 Test Item Value Reference Range Interpretation Comments WBC (test code = 13.86 See_Comment H [Automated 9166-2) message] The system which generated this result transmit walt reference range : 4.30 - 11.10 10*3/?L. The reference range was not used to interpret this result as normal/abnormal . RBC (test code = 3.62 See_Comment L [Automated 821-8) message] The system which generated this result [...] (test code = 60.4 fL 39.0-49.9 H 87686-1) RDW-CV (test code = 16.9 % 12.0-15.5 H 788-0) PLT (test code = 182 See_Comment [Automated 777-3) message] The system which generated this result transmit walt reference range : 166 - 358 10*3/ ?L. The reference range was not u sed to interpret th is result as normal/abnormal . MPV (test code = 10.6 fL 9.5-12.9 54595-3) NRBC/100 WBC (test 0.0 See_Comment [Automat ed code = 1229768609) message] The system which generated this result transmit walt reference range : 0.0 - 10.0 /100 WBCs. The reference range was not used to interpret this result as normal/abnormal . NRBC x10^3 (test code See_Comment [Auto mated = [id number]) message] The system which generated this result transmit walt reference range : 10*3/?L. The reference range was not used to interpret this result as normal/abnormal . GRAN MAT (NEUT) % 79.2 % (test code = 770-8) IMM GRAN % (test code 0.80 % = 6825943186) LYMPH % (test code = 14.6 % 736-9) MONO % (test code = 5.3 % 5905-5) EOS % (test code = 0.0 % 713-8) BASO % (test code = 0.1 % 706-2) GRAN MAT x10^3(ANC) 10.97 10*3/uL 1.88-7.09 H (test code = 1783577990) IMM GRAN x10^3 (test 0.11 10*3/uL 0.00-0.06 H code = 9018861676) LYMPH x10^3 (test code 2.03 10*3/uL 1.32-3.29 = 731-0) MONO x10^3 (test code 0.73 10*3/uL 0.33-0.92 = 742-7) EOS x10^3 (test code = 0.03-0.39 L 711-2) BASO x10^3 (test code 0.01-0.07 = 704-7) Lab Interpretation Abnormal (test code = 97339-4) [facility] GLUCOSE (AUTOMATED)2023-02-19 02:10:42 Test Item Value Reference Range Interpretation Comments POCT GLU (test code = 0815827477) 271 mg/dL 70-110 H Lab Interpretation (test code = Abnormal 43654-7) [facility] GLUCOSE (AUTOMATED)2023-02-18 23:30:31 Test Item Value Reference Range Interpretation Comments POCT GLU (test code = 3516743603) 289 mg/dL 70-110 H Lab Interpretation (test code = Abnormal 63685-0) [facility] GLUCOSE (AUTOMATED)2023-02-18 22:05:26 Test Item Value Reference Range Interpretation Comments POCT GLU (test code = 3866337708) 256 mg/dL 70-110 H Lab Interpretation (test code = Abnormal 80810-4) [facility] GLUCOSE (AUTOMATED)2023-02-18 16:26:20 Test Item Value Reference Range Interpretation Comments POCT GLU (test code = 5346929887) 89 mg/dL 70-110 Lab Interpretation (test code = Normal 46596-9) [facility] GLUCOSE (AUTOMATED)2023-02-18 13:19:21 Test Item Value Reference Range Interpretation Comments POCT GLU (test code = 6707967438) 123 mg/dL 70-110 H Lab Interpretation (test code = Abnormal 28558-3) [facility] GLUCOSE (AUTOMATED)2023-02-18 12:49:18 Test Item Value Reference Range Interpretation Comments POCT GLU (test code = 4066893404) 122 mg/dL 70-110 H Lab Interpretation (test code = Abnormal 17320-9) [facility] GLUCOSE (AUTOMATED)2023-02-18 10:33:57 Test Item Value Reference Range Interpretation Comments POCT GLU (test code = 5377182219) 156 mg/dL 70-110 H Lab Interpretation (test code = Abnormal 42124-9) [facility] GLUCOSE (AUTOMATED)2023-02-18 01:38:17 Test Item Value Reference Range Interpretation Comments POCT GLU (test code = 3176990604) 143 mg/dL 70-110 H Lab Interpretation (test code = Abnormal 57346-7) [facility] GLUCOSE (AUTOMATED)2023-02-17 22:13:31 Test Item Value Reference Range Interpretation Comments POCT GLU (test code = 7102470371) 103 mg/dL 70-110 Lab Interpretation (test code = Normal 15718-6) [facility] GLUCOSE (AUTOMATED)2023-02-17 17:21:59 Test Item Value Reference Range Interpretation Comments POCT GLU (test code = 6101631271) 209 mg/dL 70-110 H Lab Interpretation (test code = Abnormal 20007-2) [id number] 14:11:53 Test Item Value Reference Range Interpretation Comments NT-proBNP (test code = 332 pg/mL <=125 H 4779987845) BRUNO (test code = BRUNO) Biotin has been reported to cause a negative bias, interpret results relative to patient's use of biotin. Lab Interpretation (test Abnormal code = 62078-5) [facility] METABOLIC PANEL (NA, K, CL, CO2, GLUCOSE, BUN, CREATININE, CA)2023-02-17 12:57:22 Test Item Value Reference Range Interpretation Comments NA (test code = 144 mmol/L 135-145 2086324497) K (test code = 3.3 mmol/L 3.5-5.0 L 2557451203) CL (test code = 101 mmol/L 98-108 2599344383) CO2 TOTAL (test code = 39 mmol/L 23-31 H 6882082390) AGAP (test code = 4 2-16 5292232697) BUN (test code = 78 mg/dL 7-23 H 9488124803) GLUCOSE (test code = 124 mg/dL 70-110 H 6290175438) CREATININE (test code = 1.57 mg/dL 0.50-1.04 H 2711640154) CALCIUM (test code = 8.6 mg/dL 8.6-10.6 8238626289) eGFR (test code = 32.5 mL/min/1.73m2 7169828755) BRUNO (test code = BRUNO) Association of [...] tests). Lab Interpretation Abnormal (test code = 58015-6) [facility] 12:39:16 Test Item Value Reference Range Interpretation Comments POCT GLU (test code = 9712231742) 116 mg/dL 70-110 H Lab Interpretation (test code = Abnormal 98020-1) [facility] 12:12:41 Test Item Value Reference Range Interpretation Comments MAGNESIUM (test code = 1037552868) 2.2 mg/dL 1.7-2.4 Lab Interpretation (test code = Normal 59766-5) [facility] WITH [id number] 10:41:55 Test Item Value Reference Range Interpretation [...] (test code = 61.3 fL 39.0-49.9 H 21961-4) RDW-CV (test code = 17.2 % 12.0-15.5 H 788-0) PLT (test code = 202 See_Comment [Automated 777-3) message] The system which generated this result transmit walt reference range : 166 - 358 10*3/ ?L. The reference range was not u sed to interpret th is result as normal/abnormal . MPV (test code = 10.6 fL 9.5-12.9 16572-6) NRBC/100 WBC (test 0.0 See_Comment [Automat ed code = 0276060541) message] The system which generated this result transmit walt reference range : 0.0 - 10.0 /100 WBCs. The reference range was not used to interpret this result as normal/abnormal . NRBC x10^3 (test code See_Comment [Auto mated = 0568055040) message] The system which generated this result transmit walt reference range : 10*3/?L. The reference range was not used to interpret this result as normal/abnormal . GRAN MAT (NEUT) % 80.2 % (test code = 770-8) IMM GRAN % (test code 0.90 % = 0732697631) LYMPH % (test code = 15.1 % 736-9) MONO % (test code = 3.6 % 5905-5) EOS % (test code = 0.1 % 713-8) BASO % (test code = 0.1 % 706-2) GRAN MAT x10^3(ANC) 10.21 10*3/uL 1.88-7.09 H (test code = 1192257792) IMM GRAN x10^3 (test 0.11 10*3/uL 0.00-0.06 H code = 7260424097) LYMPH x10^3 (test code 1.92 10*3/uL 1.32-3.29 = 731-0) MONO x10^3 (test code 0.46 10*3/uL 0.33-0.92 = 742-7) EOS x10^3 (test code = 0.03-0.39 L 711-2) BASO x10^3 (test code 0.01-0.07 = 704-7) Lab Interpretation Abnormal (test code = 13027-0) [facility] GLUCOSE (AUTOMATED)2023-02-17 01:48:59 Test Item Value Reference Range Interpretation Comments POCT GLU (test code = 5531252479) 206 mg/dL 70-110 H Lab Interpretation (test code = Abnormal 84612-2) [facility] GLUCOSE (AUTOMATED)2023-02-16 21:29:30 Test Item Value Reference Range Interpretation Comments POCT GLU (test code = 1897271451) 178 mg/dL 70-110 H Lab Interpretation (test code = Abnormal 86626-9) [facility] GLUCOSE (AUTOMATED)2023-02-16 16:46:45 Test Item Value Reference Range Interpretation Comments POCT GLU (test code = 4621224492) 122 mg/dL 70-110 H Lab Interpretation (test code = Abnormal 50113-0) [facility] GLUCOSE (AUTOMATED)2023-02-16 14:13:22 Test Item Value Reference Range Interpretation Comments POCT GLU (test code = 9660867578) 105 mg/dL 70-110 Lab Interpretation (test code = Normal 71679-6) [facility] GLUCOSE (AUTOMATED)2023-02-16 12:33:45 Test Item Value Reference Range Interpretation Comments POCT GLU (test code = 6111942977) 112 mg/dL 70-110 H Lab Interpretation (test code = Abnormal 73441-0) [facility] GLUCOSE (AUTOMATED)2023-02-16 06:38:48 Test Item Value Reference Range Interpretation Comments POCT GLU (test code = 9299560237) 307 mg/dL 70-110 H Lab Interpretation (test code = Abnormal 86452-4) [facility] GLUCOSE (AUTOMATED)2023-02-16 03:26:47 Test Item Value Reference Range Interpretation Comments POCT GLU (test code = 1275168422) 345 mg/dL 70-110 H Lab Interpretation (test code = Abnormal 64318-4) [facility] [id number] 22:35:46 Test Item Value Reference Range Interpretation Comments TROPONIN I (test code = 0.097 ng/mL <=0.034 H 1407654018) BRUNO (test code = BRUNO) Reference (Normal) [...] biotin. Lab Interpretation Abnormal (test code = 73434-0) [facility] GLUCOSE (AUTOMATED)2023-02-15 21:47:32 Test Item Value Reference Range Interpretation Comments POCT GLU (test code = 6924581458) 359 mg/dL 70-110 H Lab Interpretation (test code = Abnormal 43770-6) [facility] GLUCOSE (AUTOMATED)2023-02-15 17:47:08 Test Item Value Reference Range Interpretation Comments POCT GLU (test code = 3117517366) 284 mg/dL 70-110 H Lab Interpretation (test code = Abnormal 90474-4) [facility] GLUCOSE (AUTOMATED)2023-02-15 14:35:20 Test Item Value Reference Range Interpretation Comments POCT GLU (test code = 7050049020) 153 mg/dL 70-110 H Lab Interpretation (test code = Abnormal 85390-8) [facility] ABG + LACTIC [id number] 14:25:17 Test Item Value Reference Range Interpretation Comments PH (test code = 2) 7.42 7.35-7.45 PCO2 (test code = 58 See_Comment H [Automate d 7124465590) message] The sy stem which generated this result transmitted reference range : 35 - 45 mmHg. The reference range was not used to interpret this result as normal/abnormal . PO2 (test code = 104 See_Comment H [Automated 6294974074) message] The sy stem which generated this result transmitted reference range : 80 - 100 mmHg. The reference range was not used to interpret this result as normal/abnormal . HCO3 (test code = 37 See_Comment H [Automate d 0526127523) message] The sy stem which generated this result transmitted reference range : 22 - 26 mEq/L. The reference range was not used to interpret this result as normal/abnormal . BE (test code = 10.5 See_Comment H [Automated 6896176754) message] The sy stem which generated this result transmitted reference range : -3.0 - 3.0 mEq/ L. The reference r fariba was not used to interpret this result as normal/abnormal . LACTIC ACID (test code 2.59 mmol/L 0.50-2.20 H = 3274698565) Lab Interpretation Abnormal (test code = 37898-3) [facility] GLUCOSE (AUTOMATED)2023-02-15 13:49:33 Test Item Value Reference Range Interpretation Comments POCT GLU (test code = 5999348534) 152 mg/dL 70-110 H Lab Interpretation (test code = Abnormal 74862-9) [facility] GLUCOSE (AUTOMATED)2023-02-15 12:52:53 Test Item Value Reference Range Interpretation Comments POCT GLU (test code = 7291677649) 159 mg/dL 70-110 H Lab Interpretation (test code = Abnormal 07082-2) [facility] GLUCOSE (AUTOMATED)2023-02-15 00:38:23 Test Item Value Reference Range Interpretation Comments POCT GLU (test code = 5402868986) 250 mg/dL 70-110 H Lab Interpretation (test code = Abnormal 75321-1) [facility] GLUCOSE (AUTOMATED)2023-02-14 21:31:13 Test Item Value Reference Range Interpretation Comments POCT GLU (test code = 9673151426) 415 mg/dL 70-110 H Lab Interpretation (test code = Abnormal 66444-7) [facility] GLUCOSE (AUTOMATED)2023-02-14 19:31:25 Test Item Value Reference Range Interpretation Comments POCT GLU (test code = 9251441387) 471 mg/dL 70-110 HH Lab Interpretation (test code = Abnormal 15056-2) [facility] GLUCOSE (AUTOMATED)2023-02-14 16:48:37 Test Item Value Reference Range Interpretation Comments POCT GLU (test code = 2643814726) 470 mg/dL 70-110 HH Lab Interpretation (test code = Abnormal 64472-2) [facility] GLUCOSE (AUTOMATED)2023-02-14 13:36:47 Test Item Value Reference Range Interpretation Comments POCT GLU (test code = 9957099704) 98 mg/dL 70-110 Lab Interpretation (test code = Normal 83283-3) [facility] GLUCOSE (AUTOMATED)2023-02-14 13:24:31 Test Item Value Reference Range Interpretation Comments POCT GLU (test code = 8624487494) 54 mg/dL 70-110 L Lab Interpretation (test code = Abnormal 36837-9) [facility] GLUCOSE (AUTOMATED)2023-02-14 13:08:41 Test Item Value Reference Range Interpretation Comments POCT GLU (test code = 6299300167) 49 mg/dL 70-110 LL Lab Interpretation (test code = Abnormal 40661-1) [facility] GLUCOSE (AUTOMATED)2023-02-14 13:08:41 Test Item Value Reference Range Interpretation Comments POCT GLU (test code = 0871749422) 53 mg/dL 70-110 L Lab Interpretation (test code = Abnormal 13489-8) [facility] GLUCOSE (AUTOMATED)2023-02-14 12:58:05 Test Item Value Reference Range Interpretation Comments POCT GLU (test code = 1608323263) 33 mg/dL 70-110 LL Lab Interpretation (test code = Abnormal 90246-8) [facility] GLUCOSE (AUTOMATED)2023-02-14 02:16:47 Test Item Value Reference Range Interpretation Comments POCT GLU (test code = 7122981755) 139 mg/dL 70-110 H Lab Interpretation (test code = Abnormal 36423-9) [facility] GLUCOSE (AUTOMATED)2023-02-13 22:50:35 Test Item Value Reference Range Interpretation Comments POCT GLU (test code = 1764346502) 284 mg/dL 70-110 H Lab Interpretation (test code = Abnormal 49497-2) [facility] Culture - Peripheral # [id number] 19:01:18 Test Item Value Reference Range Interpretation Comments Blood Culture-Aerobic No organisms No growth Previo us (test code = 59452-9) isolated prelim inary verified result was Culture [...] Culture-Anaerobic isolated preliminar y (test code = 87182-7) verifi ed result was Culture In Progress [...] CDT Lab Interpretation Normal (test code = 17062-7) [facility] Culture - Peripheral # [id number] 19:01:18 Test Item Value Reference Range Interpretation Comments Blood Culture-Aerobic No organisms No growth Previo us (test code = 90171-2) isolated prelim inary verified result was Culture [...] Culture-Anaerobic isolated preliminar y (test code = 05827-2) verifi ed result was Culture In Progress [...] CDT Lab Interpretation Normal (test code = 95897-9) [facility] GLUCOSE (AUTOMATED)2023-02-13 17:16:47 Test Item Value Reference Range Interpretation Comments POCT GLU (test code = 4486561684) 282 mg/dL 70-110 H Lab Interpretation (test code = Abnormal 80739-5) [facility] GLUCOSE (AUTOMATED)2023-02-13 12:58:50 Test Item Value Reference Range Interpretation Comments POCT GLU (test code = 0982192258) 144 mg/dL 70-110 H Lab Interpretation (test code = Abnormal 23407-4) [facility] GLUCOSE (AUTOMATED)2023-02-13 02:16:05 Test Item Value Reference Range Interpretation Comments POCT GLU (test code = 1048840117) 102 mg/dL 70-110 Lab Interpretation (test code = Normal 44888-5) [facility] GLUCOSE (AUTOMATED)2023-02-12 21:55:38 Test Item Value Reference Range Interpretation Comments POCT GLU (test code = 6321609206) 133 mg/dL 70-110 H Lab Interpretation (test code = Abnormal 44564-5) [facility] GLUCOSE (AUTOMATED)2023-02-12 17:14:39 Test Item Value Reference Range Interpretation Comments POCT GLU (test code = 4658789883) 158 mg/dL 70-110 H Lab Interpretation (test code = Abnormal 11857-2) [facility] GLUCOSE (AUTOMATED)2023-02-12 13:21:24 Test Item Value Reference Range Interpretation Comments POCT GLU (test code = 9108665867) 104 mg/dL 70-110 Lab Interpretation (test code = Normal 26637-5) [facility] GLUCOSE (AUTOMATED)2023-02-12 13:21:24 Test Item Value Reference Range Interpretation Comments POCT GLU (test code = 3945998417) 104 mg/dL 70-110 Lab Interpretation (test code = Normal 01586-0) [facility] GLUCOSE (AUTOMATED)2023-02-12 02:03:03 Test Item Value Reference Range Interpretation Comments POCT GLU (test code = 2209522051) 253 mg/dL 70-110 H Lab Interpretation (test code = Abnormal 96388-0) [facility] GLUCOSE (AUTOMATED)2023-02-11 21:58:55 Test Item Value Reference Range Interpretation Comments POCT GLU (test code = 7868595488) 295 mg/dL 70-110 H Lab Interpretation (test code = Abnormal 75033-2) [facility] [id number] 18:27:20 Test Item Value Reference Range Interpretation Comments SPUTUM CULTURE 1+ Respiratory sofya: (test code = 622-1) Commensal upper respiratory microorganisms only. Gram stain (test Occasional (Rare) code = 664-3) Epithelial cells present BRUNO (test code = Bacterial pathogens BRUNO) associated with lower respiratory infections were not identified, which include Pseudomonas aeruginosa and Staphylococcus aureus (MRSA or MSSA). [facility] [id number] 18:27:20 Test Item Value Reference Range Interpretation Comments SPUTUM CULTURE 1+ Respiratory sofya: (test code = 622-1) Commensal upper respiratory microorganisms only. Gram stain (test Occasional (Rare) code = 664-3) Epithelial cells present BRUNO (test code = Bacterial pathogens BRUNO) associated with lower respiratory infections were not identified, which include Pseudomonas aeruginosa and Staphylococcus aureus (MRSA or MSSA). [facility] GLUCOSE (AUTOMATED)2023-02-11 16:38:03 Test Item Value Reference Range Interpretation Comments POCT GLU (test code = 0552588379) 236 mg/dL 70-110 H Lab Interpretation (test code = Abnormal 34835-9) [facility] GLUCOSE (AUTOMATED)2023-02-11 12:55:46 Test Item Value Reference Range Interpretation Comments POCT GLU (test code = 9417507313) 130 mg/dL 70-110 H Lab Interpretation (test code = Abnormal 84573-7) [facility] GLUCOSE (AUTOMATED)2023-02-11 01:06:56 Test Item Value Reference Range Interpretation Comments POCT GLU (test code = 6149189015) 274 mg/dL 70-110 H Lab Interpretation (test code = Abnormal 84745-0) [facility] GLUCOSE (AUTOMATED)2023-02-10 21:48:49 Test Item Value Reference Range Interpretation Comments POCT GLU (test code = 0216559846) 334 mg/dL 70-110 H Lab Interpretation (test code = Abnormal 57426-8) [facility] GLUCOSE (AUTOMATED)2023-02-10 17:05:03 Test Item Value Reference Range Interpretation Comments POCT GLU (test code = 5601630289) 164 mg/dL 70-110 H Lab Interpretation (test code = Abnormal 17832-6) [facility] GLUCOSE (AUTOMATED)2023-02-10 13:21:43 Test Item Value Reference Range Interpretation Comments POCT GLU (test code = 8680960587) 125 mg/dL 70-110 H Lab Interpretation (test code = Abnormal 92272-0) [facility] GLUCOSE (AUTOMATED)2023-02-10 01:23:56 Test Item Value Reference Range Interpretation Comments POCT GLU (test code = 4348786459) 252 mg/dL 70-110 H Lab Interpretation (test code = Abnormal 64927-9) [facility] GLUCOSE (AUTOMATED)2023-02-09 22:21:32 Test Item Value Reference Range Interpretation Comments POCT GLU (test code = 0495124024) 339 mg/dL 70-110 H Lab Interpretation (test code = Abnormal 28632-9) [facility] GLUCOSE (AUTOMATED)2023-02-09 20:29:58 Test Item Value Reference Range Interpretation Comments POCT GLU (test code = 4972518742) 473 mg/dL 70-110 HH Lab Interpretation (test code = Abnormal 00373-8) [facility] GLUCOSE (AUTOMATED)2023-02-09 18:43:59 Test Item Value Reference Range Interpretation Comments POCT GLU (test code = 9769867107) 546 mg/dL 70-110 HH Lab Interpretation (test code = Abnormal 15044-1) [facility] GLUCOSE (AUTOMATED)2023-02-09 17:18:41 Test Item Value Reference Range Interpretation Comments POCT GLU (test code = 8552618975) 543 mg/dL 70-110 HH Lab Interpretation (test code = Abnormal 62777-7) [facility] GLUCOSE (AUTOMATED)2023-02-09 17:18:36 Test Item Value Reference Range Interpretation Comments POCT GLU (test code = 6752120700) 495 mg/dL 70-110 HH Lab Interpretation (test code = Abnormal 31594-3) [facility] GLUCOSE (AUTOMATED)2023-02-09 13:18:27 Test Item Value Reference Range Interpretation Comments POCT GLU (test code = 8066731505) 247 mg/dL 70-110 H Lab Interpretation (test code = Abnormal 87715-2) [facility] GLUCOSE (AUTOMATED)2023-02-09 02:17:02 Test Item Value Reference Range Interpretation Comments POCT GLU (test code = 4759576397) 218 mg/dL 70-110 H Lab Interpretation (test code = Abnormal 01296-2) [facility] GLUCOSE (AUTOMATED)2023-02-09 01:17:42 Test Item Value Reference Range Interpretation Comments POCT GLU (test code = 0077684485) 248 mg/dL 70-110 H Lab Interpretation (test code = Abnormal 87562-8) [facility] WITH [id number] 17:44:59 Test Item Value Reference Range Interpretation Comments WBC (test code = 13.51 See_Comment H [Automated 1590-2) message] The system which generated this result transmit walt reference range : 4.30 - 11.10 10*3/?L. The reference range was not used to interpret this result as normal/abnormal . RBC (test code = 3.75 See_Comment L [Automated 869-8) message] The system which generated this result [...] (test code = 60.7 fL 39.0-49.9 H 95543-6) RDW-CV (test code = 16.8 % 12.0-15.5 H 788-0) PLT (test code = 196 See_Comment [Automated 777-3) message] The system which generated this result transmit walt reference range : 166 - 358 10*3/ ?L. The reference range was not u sed to interpret th is result as normal/abnormal . MPV (test code = 10.2 fL 9.5-12.9 02298-0) NRBC/100 WBC (test 0.0 See_Comment [Automat ed code = 9301663084) message] The system which generated this result transmit walt reference range : 0.0 - 10.0 /100 WBCs. The reference range was not used to interpret this result as normal/abnormal . NRBC x10^3 (test code See_Comment [Auto mated = 4187031163) message] The system which generated this result transmit walt reference range : 10*3/?L. The reference range was not used to interpret this result as normal/abnormal . GRAN MAT (NEUT) % 80.2 % (test code = 770-8) IMM GRAN % (test code 1.60 % = 4352315864) LYMPH % (test code = 14.4 % 736-9) MONO % (test code = 3.0 % 5905-5) EOS % (test code = 0.6 % 713-8) BASO % (test code = 0.2 % 706-2) GRAN MAT x10^3(ANC) 10.85 10*3/uL 1.88-7.09 H (test code = 0040153113) IMM GRAN x10^3 (test 0.21 10*3/uL 0.00-0.06 H code = 5166422140) LYMPH x10^3 (test code 1.94 10*3/uL 1.32-3.29 = 731-0) MONO x10^3 (test code 0.40 10*3/uL 0.33-0.92 = 742-7) EOS x10^3 (test code = 0.08 10*3/uL 0.03-0.39 711-2) BASO x10^3 (test code 0.03 10*3/uL 0.01-0.07 = 704-7) BASO STIPPLING (test Present A code = 703-9) POLYCHROMASIA (test 2+ See_Comment [Automa walt code = 83090-8) message] The system which generated this result transmit walt reference range : 2+. The referen ce range was not u sed to interpret th is result as normal/abnormal . BANDS (test code = Increased A 8527650267) Lab Interpretation Abnormal (test code = 97928-3) [id number] 16:25:38 Test Item Value Reference Range Interpretation Comments TROPONIN I (test code = 0.047 ng/mL <=0.034 H 5885499875) BRUNO (test code = BRUNO) Reference (Normal) [...] biotin. Lab Interpretation Abnormal (test code = 17119-4) [facility] 16:14:54 Test Item Value Reference Range Interpretation Comments MAGNESIUM (test code = 9086090056) 2.5 mg/dL 1.7-2.4 H Lab Interpretation (test code = Abnormal 58852-4) [facility] ([id number])2023-02-08 16:14:33 Test Item Value Reference Range Interpretation Comments NA (test code = 137 mmol/L 135-145 1651540900) K (test code = 5.2 mmol/L 3.5-5.0 H 3420162190) CL (test code = 96 mmol/L 98-108 L 0874559147) CO2 TOTAL (test code = 34 mmol/L 23-31 H 7480529777) AGAP (test code = 7 2-16 3111759737) BUN (test code = 61 mg/dL 7-23 H 1104537283) GLUCOSE (test code = 80 mg/dL 70-110 3398812839) CREATININE (test code = 1.97 mg/dL 0.50-1.04 H 7715894306) TOTAL BILI (test code = 0.8 mg/dL 0.1-1.3 0399487309) CALCIUM (test code = 9.9 mg/dL 8.6-10.6 7773203296) T PROTEIN (test code = 6.9 g/dL 6.3-8.2 8066807496) ALBUMIN (test code = 3.4 g/dL 3.5-5.0 L 8230887181) ALK PHOS (test code = 79 U/L 34-122 8873612963) ALTv (test code = 31 U/L 5-35 1742-6) AST(SGOT) (test code = 30 U/L 13-40 1670298206) eGFR (test code = 25.0 mL/min/1.73m2 4621816482) BRUNO (test code = BRUNO) Association of [...] tests). Lab Interpretation Abnormal (test code = 53980-4) [facility]. METABOLIC PANEL ([id number])2023-02-08 16:14:33 Test Item Value Reference Range Interpretation Comments NA (test code = 137 mmol/L 135-145 4202906172) K (test code = 5.2 mmol/L 3.5-5.0 H 2217417676) CL (test code = 96 mmol/L 98-108 L 7893805617) CO2 TOTAL (test code = 34 mmol/L 23-31 H 0130260607) AGAP (test code = 7 2-16 6624265002) BUN (test code = 61 mg/dL 7-23 H 5558892942) GLUCOSE (test code = 80 mg/dL 70-110 6442019447) CREATININE (test code = 1.97 mg/dL 0.50-1.04 H 8364982076) TOTAL BILI (test code = 0.8 mg/dL 0.1-1.5 3182531773) CALCIUM (test code = 9.9 mg/dL 8.6-10.6 5550648940) T PROTEIN (test code = 6.9 g/dL 6.3-8.2 4302167749) ALBUMIN (test code = 3.4 g/dL 3.5-5.0 L 9105684446) ALK PHOS (test code = 79 U/L 34-122 3896187370) ALTv (test code = 31 U/L 5-35 1742-6) AST(SGOT) (test code = 30 U/L 13-40 3550625155) eGFR (test code = 25.0 mL/min/1.73m2 4151580293) BRUNO (test code = BRUNO) Association of [...] tests). Lab Interpretation Abnormal (test code = 22169-1) [facility]-TERMINAL [id number] 16:07:51 Test Item Value Reference Range Interpretation Comments NT-proBNP (test code = 395 pg/mL <=125 H 1344498614) BRUNO (test code = BRUNO) Biotin has been reported to cause a negative bias, interpret results relative to patient's use of biotin. Lab Interpretation (test Abnormal code = 71873-2) [id number] 16:07:51 Test Item Value Reference Range Interpretation Comments NT-proBNP (test code = 395 pg/mL <=125 H 1886581903) BRUNO (test code = BRUNO) Biotin has been reported to cause a negative bias, interpret results relative to patient's use of biotin. Lab Interpretation (test Abnormal code = 87460-4) [facility] GLUCOSE (AUTOMATED)2023-02-05 21:24:48 Test Item Value Reference Range Interpretation Comments POCT GLU (test code = 5193958692) 415 mg/dL 70-110 H Lab Interpretation (test code = Abnormal 66884-8) [facility] GLUCOSE (AUTOMATED)2023-02-05 16:26:58 Test Item Value Reference Range Interpretation Comments POCT GLU (test code = 6505819009) 260 mg/dL 70-110 H Lab Interpretation (test code = Abnormal 37757-4) [facility] GLUCOSE (AUTOMATED)2023-02-05 12:56:59 Test Item Value Reference Range Interpretation Comments POCT GLU (test code = 4559116965) 133 mg/dL 70-110 H Lab Interpretation (test code = Abnormal 76645-9) [facility] GLUCOSE (AUTOMATED)2023-02-05 03:52:05 Test Item Value Reference Range Interpretation Comments POCT GLU (test code = 8191364138) 230 mg/dL 70-110 H Lab Interpretation (test code = Abnormal 87177-1) [facility] GLUCOSE (AUTOMATED)2023-02-04 23:53:32 Test Item Value Reference Range Interpretation Comments POCT GLU (test code = 9086892028) 449 mg/dL 70-110 H Lab Interpretation (test code = Abnormal 93624-6) [facility] GLUCOSE (AUTOMATED)2023-02-04 21:14:53 Test Item Value Reference Range Interpretation Comments POCT GLU (test code = 8925883751) 326 mg/dL 70-110 H Lab Interpretation (test code = Abnormal 76479-9) [facility] GLUCOSE (AUTOMATED)2023-02-04 16:19:51 Test Item Value Reference Range Interpretation Comments POCT GLU (test code = 0682829544) 270 mg/dL 70-110 H Lab Interpretation (test code = Abnormal 01658-4) [facility] GLUCOSE (AUTOMATED)2023-02-04 12:44:00 Test Item Value Reference Range Interpretation Comments POCT GLU (test code = 6759036990) 99 mg/dL 70-110 Lab Interpretation (test code = Normal 49661-2) [facility] GLUCOSE (AUTOMATED)2023-02-04 01:53:16 Test Item Value Reference Range Interpretation Comments POCT GLU (test code = 5768005340) 211 mg/dL 70-110 H Lab Interpretation (test code = Abnormal 47199-6) [facility] GLUCOSE (AUTOMATED)2023-02-03 21:49:56 Test Item Value Reference Range Interpretation Comments POCT GLU (test code = 3023712663) 300 mg/dL 70-110 H Lab Interpretation (test code = Abnormal 87107-5) [facility] GLUCOSE (AUTOMATED)2023-02-03 16:38:38 Test Item Value Reference Range Interpretation Comments POCT GLU (test code = 0989699601) 205 mg/dL 70-110 H Lab Interpretation (test code = Abnormal 22619-5) [facility] GLUCOSE (AUTOMATED)2023-02-03 12:34:11 Test Item Value Reference Range Interpretation Comments POCT GLU (test code = 3197681406) 73 mg/dL 70-110 Lab Interpretation (test code = Normal 46543-9) [facility] GLUCOSE (AUTOMATED)2023-02-03 01:34:26 Test Item Value Reference Range Interpretation Comments POCT GLU (test code = 3272256960) 184 mg/dL 70-110 H Lab Interpretation (test code = Abnormal 56177-0) [facility] GLUCOSE (AUTOMATED)2023-02-02 21:37:34 Test Item Value Reference Range Interpretation Comments POCT GLU (test code = 5360582291) 220 mg/dL 70-110 H Lab Interpretation (test code = Abnormal 56777-6) [facility] GLUCOSE (AUTOMATED)2023-02-02 16:55:07 Test Item Value Reference Range Interpretation Comments POCT GLU (test code = 9767639225) 214 mg/dL 70-110 H Lab Interpretation (test code = Abnormal 92775-7) [facility] [id number] 13:45:22 Test Item Value Reference Range Interpretation Comments SPUTUM CULTURE 1+ Respiratory sofya: (test code = 622-1) Commensal upper respiratory microorganisms only. Gram stain (test Few Mononuclear cells code = 664-3) BRUNO (test code = Bacterial pathogens BRUNO) associated with lower respiratory infections were not identified, which include Pseudomonas aeruginosa and Staphylococcus aureus (MRSA or MSSA). [facility] GLUCOSE (AUTOMATED)2023-02-02 12:44:05 Test Item Value Reference Range Interpretation Comments POCT GLU (test code = 3688259053) 118 mg/dL 70-110 H Lab Interpretation (test code = Abnormal 17442-3) [facility] GLUCOSE (AUTOMATED)2023-02-02 10:35:20 Test Item Value Reference Range Interpretation Comments POCT GLU (test code = 0728174478) 73 mg/dL 70-110 Lab Interpretation (test code = Normal 15548-6) [facility] GLUCOSE (AUTOMATED)2023-02-02 06:50:13 Test Item Value Reference Range Interpretation Comments POCT GLU (test code = 6862235329) 83 mg/dL 70-110 Lab Interpretation (test code = Normal 65223-8) [facility] GLUCOSE (AUTOMATED)2023-02-02 05:36:44 Test Item Value Reference Range Interpretation Comments POCT GLU (test code = 2729183691) 45 mg/dL 70-110 LL Lab Interpretation (test code = Abnormal 63976-1) [facility] GLUCOSE (AUTOMATED)2023-02-02 01:16:54 Test Item Value Reference Range Interpretation Comments POCT GLU (test code = 5594819549) 246 mg/dL 70-110 H Lab Interpretation (test code = Abnormal 12401-1) [facility] GLUCOSE (AUTOMATED)2023-02-01 21:37:10 Test Item Value Reference Range Interpretation Comments POCT GLU (test code = 5112294175) 302 mg/dL 70-110 H Lab Interpretation (test code = Abnormal 45545-4) [facility] GLUCOSE (AUTOMATED)2023-02-01 16:24:31 Test Item Value Reference Range Interpretation Comments POCT GLU (test code = 3199339376) 147 mg/dL 70-110 H Lab Interpretation (test code = Abnormal 79177-3) [facility]-REACTIVE [id number] 15:58:21 Test Item Value Reference Range Interpretation Comments CRP (test code = 7207035994) 6.6 mg/dL <=1.0 H Lab Interpretation (test code = Abnormal 84269-0) [facility]-REACTIVE [id number] 15:58:21 Test Item Value Reference Range Interpretation Comments CRP (test code = 4608649238) 6.6 mg/dL <=1.0 H Lab Interpretation (test code = Abnormal 03247-1) [facility] 12:44:44 Test Item Value Reference Range Interpretation Comments POCT GLU (test code = 4174260250) 146 mg/dL 70-110 H Lab Interpretation (test code = Abnormal 77735-4) [facility]TR[facility] [id number] 10:17:56 Test Item Value Reference Range Interpretation Comments TROPONIN I (test code = 0.017 ng/mL <=0.034 5834330944) BRUNO (test code = BRUNO) Reference (Normal) [...] biotin. Lab Interpretation Normal (test code = 67104-8) [facility] METABOLIC PANEL (NA, K, CL, CO2, GLUCOSE, BUN, CREATININE, CA)2023-02-01 10:09:16 Test Item Value Reference Range Interpretation Comments NA (test code = 138 mmol/L 135-145 9741055772) K (test code = 4.5 mmol/L 3.5-5.0 5465397940) CL (test code = 99 mmol/L 98-108 7619302449) CO2 TOTAL (test code = 37 mmol/L 23-31 H 5520090042) AGAP (test code = 2 2-16 9518917957) BUN (test code = 48 mg/dL 7-23 H 9874571988) GLUCOSE (test code = 162 mg/dL 70-110 H 1058345045) CREATININE (test code = 1.63 mg/dL 0.50-1.04 H 8692113361) CALCIUM (test code = 8.6 mg/dL 8.6-10.6 8505477099) eGFR (test code = 31.1 mL/min/1.73m2 5303452727) BRUNO (test code = BRUNO) Association of [...] tests). Lab Interpretation Abnormal (test code = 21514-6) [facility] 10:09:16 Test Item Value Reference Range Interpretation Comments MAGNESIUM (test code = 7722143856) 2.3 mg/dL 1.7-2.4 Lab Interpretation (test code = Normal 48033-1) [facility] WITH [id number] 09:50:36 Test Item Value Reference Range Interpretation Comments WBC (test code = 9.01 See_Comment [Automated 6690-2) message] The sy stem [...] (test code = 58.8 fL 39.0-49.9 H 55427-6) RDW-CV (test code = 16.1 % 12.0-15.5 H 788-0) PLT (test code = 243 See_Comment [Automated 777-3) message] The sy stem which generated this result transmitted reference range : 166 - 358 10*3/ ?L. The reference r fariba was not used to interpret this result as normal/abnormal . MPV (test code = 10.2 fL 9.5-12.9 18889-9) NRBC/100 WBC (test 0.0 See_Comment [Automat ed code = 3541353537) message] The system which generated this result transmitted reference range : 0.0 - 10.0 /100 WBCs. The refer ence range was not u sed to interpret th is result as normal/abnormal . NRBC x10^3 (test code See_Comment [Auto mated = 5676228840) message] The s ystem which generated this result transmitted reference range : 10*3/?L. The reference range was not used to interpret this result as normal/abnormal . GRAN MAT (NEUT) % 67.2 % (test code = 770-8) IMM GRAN % (test code 1.60 % = 9144755044) LYMPH % (test code = 25.1 % 736-9) MONO % (test code = 5.8 % 5905-5) EOS % (test code = 0.2 % 713-8) BASO % (test code = 0.1 % 706-2) GRAN MAT x10^3(ANC) 6.06 10*3/uL 1.88-7.09 (test code = 3905285074) IMM GRAN x10^3 (test 0.14 10*3/uL 0.00-0.06 H code = 4134102018) LYMPH x10^3 (test code 2.26 10*3/uL 1.32-3.29 = 731-0) MONO x10^3 (test code 0.52 10*3/uL 0.33-0.92 = 742-7) EOS x10^3 (test code = 0.03-0.39 L 711-2) BASO x10^3 (test code 0.01-0.07 = 704-7) Lab Interpretation Abnormal (test code = 76515-1) [facility] GLUCOSE (AUTOMATED)2023-02-01 05:24:29 Test Item Value Reference Range Interpretation Comments POCT GLU (test code = 4620659235) 232 mg/dL 70-110 H Lab Interpretation (test code = Abnormal 02375-9) [facility] GLUCOSE (AUTOMATED)2023-02-01 02:03:51 Test Item Value Reference Range Interpretation Comments POCT GLU (test code = 6441922403) 335 mg/dL 70-110 H Lab Interpretation (test code = Abnormal 66000-7) [facility] GLUCOSE (AUTOMATED)2023-01-31 21:19:30 Test Item Value Reference Range Interpretation Comments POCT GLU (test code = 2572307437) 352 mg/dL 70-110 H Lab Interpretation (test code = Abnormal 01697-1) [facility] GLUCOSE (AUTOMATED)2023-01-31 16:37:13 Test Item Value Reference Range Interpretation Comments POCT GLU (test code = 8057886950) 223 mg/dL 70-110 H Lab Interpretation (test code = Abnormal 57162-8) [facility] GLUCOSE (AUTOMATED)2023-01-31 12:47:40 Test Item Value Reference Range Interpretation Comments POCT GLU (test code = 0328611037) 157 mg/dL 70-110 H Lab Interpretation (test code = Abnormal 90151-1) [facility] [id number] 09:00:43 Test Item Value Reference Range Interpretation Comments SPUTUM CULTURE (test Specimen cellular code = 622-1) elements do not represent lower respiratory tract. Specimen rejected for routine bacterial culture. Suggest reorder and recollection. Gram stain (test code Numerous Epithelial = 664-3) cells [facility] GLUCOSE (AUTOMATED)2023-01-31 01:53:38 Test Item Value Reference Range Interpretation Comments POCT GLU (test code = 4341441808) 142 mg/dL 70-110 H Lab Interpretation (test code = Abnormal 25328-8) [facility] GLUCOSE (AUTOMATED)2023-01-30 21:20:52 Test Item Value Reference Range Interpretation Comments POCT GLU (test code = 6051819059) 355 mg/dL 70-110 H Lab Interpretation (test code = Abnormal 75308-8) [facility] CenterTroponin [id number] 19:37:32 Test Item Value Reference Range Interpretation Comments TROPONIN I (test code = 0.035 ng/mL <=0.034 H 0367235918) BRUNO (test code = BRUNO) Reference (Normal) [...] biotin. Lab Interpretation Abnormal (test code = 82301-5) [facility] [id number] 19:33:51 Test Item Value Reference Range Interpretation Comments NT-proBNP (test code = 315 pg/mL <=125 H 0369870013) BRNUO (test code = BRUNO) Biotin has been reported to cause a negative bias, interpret results relative to patient's use of biotin. Lab Interpretation (test Abnormal code = 96180-7) [facility]eraPTT2023-[facility]-27 19:31:59 Test Item Value Reference Range Interpretation Comments APTT Patient (test 21 See_Comment L [Automat ed code = 3173-2) message] The system which generated this result transmitted reference range : 23 - 38 Seconds . The reference range was not used to interpr et this result as normal/abnormal . BRUNO (test code = BRUNO) The [facility] patient population mean normal value for aPTT is 30 seconds. Lab Interpretation Abnormal (test code = 84957-3) [facility] 19:31:59 Test Item Value Reference Range Interpretation Comments APTT Patient (test 21 See_Comment L [Automat ed code = 3173-2) message] The system which generated this result transmitted reference range : 23 - 38 Seconds . The reference range was not used to interpr et this result as normal/abnormal . BRUNO (test code = BRUNO) The [facility] patient population mean normal value for aPTT is 30 seconds. Lab Interpretation Abnormal (test code = 47382-4) [facility] CenterProthrombin Time / [id number] 19:30:07 Test Item Value Reference Range Interpretation [...] tions. Lab Interpretation (test Normal code = 26222-1) [facility] CenterBasi Metabolic Panel (NA, K, CL, CO2, Glucose, BUN, Creatinine, CA)2023-01-30 19:25:51 Test Item Value Reference Range Interpretation Comments NA (test code = 135 mmol/L 135-145 4417048387) K (test code = 5.6 mmol/L 3.5-5.0 H 9268576906) CL (test code = 95 mmol/L 98-108 L 3090458482) CO2 TOTAL (test code = 35 mmol/L 23-31 H 9899408112) AGAP (test code = 5 2-16 5325154730) BUN (test code = 48 mg/dL 7-23 H 3387420391) GLUCOSE (test code = 342 mg/dL 70-110 H 6721088792) CREATININE (test code = 1.69 mg/dL 0.50-1.04 H 0302381239) CALCIUM (test code = 8.7 mg/dL 8.6-10.6 4993324685) eGFR (test code = 29.8 mL/min/1.73m2 9719482587) BRUNO (test code = BRUNO) Association of [...] tests). Lab Interpretation Abnormal (test code = 16439-0) [facility] CenterMagnesium [id number] 19:25:51 Test Item Value Reference Range Interpretation Comments MAGNESIUM (test code = 9561361061) 2.1 mg/dL 1.7-2.4 Lab Interpretation (test code = Normal 24629-8) [facility] CenterHepatic Function Panel (ALB, T.PRO, BILI T, BU/BC, ALT, AST, ALK, PHOS)2023-01-30 19:25:51 Test Item Value Reference Range Interpretation Comments TOTAL BILI (test code = 9560906645) 0.6 mg/dL 0.1-1.1 BILI UNCON (test code = 5900173963) 0.3 mg/dL 0.1-1.1 BILI CONJ (test code = 1912516681) 0.0 mg/dL 0.0-0.3 T PROTEIN (test code = 1498092428) 6.7 g/dL 6.3-8.2 ALBUMIN (test code = 5508383722) 3.2 g/dL 3.5-5.0 L ALK PHOS (test code = 4781026305) 72 U/L 34-122 ALTv (test code = 1742-6) 30 U/L 5-35 AST(SGOT) (test code = 6993076649) 22 U/L 13-40 Lab Interpretation (test code = Abnormal 72077-9) [facility] CenterHep[facility] (ALB, T.PRO, BILI T, BU/BC, ALT, AST, ALK, PHOS)2023-01-30 19:25:51 Test Item Value Reference Range Interpretation Comments TOTAL BILI (test code = 3969880269) 0.6 mg/dL 0.1-1.1 BILI UNCON (test code = 2311408245) 0.3 mg/dL 0.1-1.1 BILI CONJ (test code = 3031562003) 0.0 mg/dL 0.0-0.3 T PROTEIN (test code = 8683352112) 6.7 g/dL 6.3-8.2 ALBUMIN (test code = 2686112415) 3.2 g/dL 3.5-5.0 L ALK PHOS (test code = 1367920997) 72 U/L 34-122 ALTv (test code = 1742-6) 30 U/L 5-35 AST(SGOT) (test code = 5533796322) 22 U/L 13-40 Lab Interpretation (test code = Abnormal 63157-6) [facility] CenterCBC with [id number] 19:24:08 Test Item Value Reference Range Interpretation [...] (test code = 63.1 fL 39.0-49.9 H 10160-0) RDW-CV (test code = 17.2 % 12.0-15.5 H 788-0) PLT (test code = 263 See_Comment [Automated 777-3) message] The sy stem which generated this result transmitted reference range : 166 - 358 10*3/ ?L. The reference r fariba was not used to interpret this result as normal/abnormal . MPV (test code = 10.4 fL 9.5-12.9 96740-8) NRBC/100 WBC (test 0.0 See_Comment [Automat ed code = 4724266108) message] The system which generated this result transmitted reference range : 0.0 - 10.0 /100 WBCs. The refer ence range was not u sed to interpret th is result as normal/abnormal . NRBC x10^3 (test code See_Comment [Auto mated = 6409920275) message] The s ystem which generated this result transmitted reference range : 10*3/?L. The reference range was not used to interpret this result as normal/abnormal . GRAN MAT (NEUT) % 74.1 % (test code = 770-8) IMM GRAN % (test code 1.40 % = 9601929676) LYMPH % (test code = 18.1 % 736-9) MONO % (test code = 4.3 % 5905-5) EOS % (test code = 1.7 % 713-8) BASO % (test code = 0.4 % 706-2) GRAN MAT x10^3(ANC) 8.11 10*3/uL 1.88-7.09 H (test code = 8933089523) IMM GRAN x10^3 (test 0.15 10*3/uL 0.00-0.06 H code = 8627082046) LYMPH x10^3 (test code 1.98 10*3/uL 1.32-3.29 = 731-0) MONO x10^3 (test code 0.47 10*3/uL 0.33-0.92 = 742-7) EOS x10^3 (test code = 0.19 10*3/uL 0.03-0.39 711-2) BASO x10^3 (test code 0.04 10*3/uL 0.01-0.07 = 704-7) Lab Interpretation Abnormal (test code = 81900-7) [facility] GLUCOSE (AUTOMATED)2023-01-24 17:09:00 Test Item Value Reference Range Interpretation Comments POCT GLU (test code = 5039376589) 280 mg/dL 70-110 H Lab Interpretation (test code = Abnormal 56487-5) [facility] GLUCOSE (AUTOMATED)2023-01-24 13:17:42 Test Item Value Reference Range Interpretation Comments POCT GLU (test code = 2982003597) 155 mg/dL 70-110 H Lab Interpretation (test code = Abnormal 20607-0) [facility] GLUCOSE (AUTOMATED)2023-01-24 12:34:03 Test Item Value Reference Range Interpretation Comments POCT GLU (test code = 4754722242) 184 mg/dL 70-110 H Lab Interpretation (test code = Abnormal 93127-6) [facility]N-[facility]MINAL [id number] 10:33:20 Test Item Value Reference Range Interpretation Comments NT-proBNP (test code = 364 pg/mL <=125 H 3684773763) BRUNO (test code = BRUNO) Biotin has been reported to cause a negative bias, interpret results relative to patient's use of biotin. Lab Interpretation (test Abnormal code = 49913-6) [facility] METABOLIC PANEL (NA, K, CL, CO2, GLUCOSE, BUN, CREATININE, CA)2023-01-24 10:28:22 Test Item Value Reference Range Interpretation Comments NA (test code = 134 mmol/L 135-145 L 7035486489) K (test code = 4.3 mmol/L 3.5-5.0 7533795784) CL (test code = 91 mmol/L 98-108 L 7983630435) CO2 TOTAL (test code = 38 mmol/L 23-31 H 0632331146) AGAP (test code = 5 2-16 4387604957) BUN (test code = 42 mg/dL 7-23 H 6861420901) GLUCOSE (test code = 241 mg/dL 70-110 H 9928317635) CREATININE (test code = 1.82 mg/dL 0.50-1.04 H 4227743881) CALCIUM (test code = 8.5 mg/dL 8.6-10.6 L 8074392777) eGFR (test code = 27.4 mL/min/1.73m2 6512966817) BRUNO (test code = BRUNO) Association of [...] tests). Lab Interpretation Abnormal (test code = 45756-5) [facility] WITH [id number] 10:07:38 Test Item Value Reference Range Interpretation [...] (test code = 58.3 fL 39.0-49.9 H 08491-7) RDW-CV (test code = 16.7 % 12.0-15.5 H 788-0) PLT (test code = 189 See_Comment [Automated 777-3) message] The sy stem which generated this result transmitted reference range : 166 - 358 10*3/ ?L. The reference r fariba was not used to interpret this result as normal/abnormal . MPV (test code = 9.8 fL 9.5-12.9 57452-1) NRBC/100 WBC (test 0.0 See_Comment [Automat ed code = 2134108185) message] The system which generated this result transmitted reference range : 0.0 - 10.0 /100 WBCs. The refer ence range was not u sed to interpret th is result as normal/abnormal . NRBC x10^3 (test code See_Comment [Auto mated = 6508518194) message] The s ystem which generated this result transmitted reference range : 10*3/?L. The reference range was not used to interpret this result as normal/abnormal . GRAN MAT (NEUT) % 72.1 % (test code = 770-8) IMM GRAN % (test code 0.70 % = 0240408218) LYMPH % (test code = 21.0 % 736-9) MONO % (test code = 6.1 % 5905-5) EOS % (test code = 0.0 % 713-8) BASO % (test code = 0.1 % 706-2) GRAN MAT x10^3(ANC) 7.02 10*3/uL 1.88-7.09 (test code = 1787227915) IMM GRAN x10^3 (test 0.07 10*3/uL 0.00-0.06 H code = 0211723065) LYMPH x10^3 (test code 2.04 10*3/uL 1.32-3.29 = 731-0) MONO x10^3 (test code 0.59 10*3/uL 0.33-0.92 = 742-7) EOS x10^3 (test code = 0.03-0.39 L 711-2) BASO x10^3 (test code 0.01-0.07 = 704-7) Lab Interpretation Abnormal (test code = 11840-5) [facility] GLUCOSE (AUTOMATED)2023-01-24 01:33:08 Test Item Value Reference Range Interpretation Comments POCT GLU (test code = 1098586180) 266 mg/dL 70-110 H Lab Interpretation (test code = Abnormal 11355-2) [facility] GLUCOSE (AUTOMATED)2023-01-23 21:47:58 Test Item Value Reference Range Interpretation Comments POCT GLU (test code = 6164088547) 341 mg/dL 70-110 H Lab Interpretation (test code = Abnormal 90430-7) [facility] GLUCOSE (AUTOMATED)2023-01-23 16:06:12 Test Item Value Reference Range Interpretation Comments POCT GLU (test code = 9147681643) 298 mg/dL 70-110 H Lab Interpretation (test code = Abnormal 87270-8) [facility] GLUCOSE (AUTOMATED)2023-01-23 13:02:12 Test Item Value Reference Range Interpretation Comments POCT GLU (test code = 4925615818) 201 mg/dL 70-110 H Lab Interpretation (test code = Abnormal 82468-5) [facility] GLUCOSE (AUTOMATED)2023-01-23 00:54:53 Test Item Value Reference Range Interpretation Comments POCT GLU (test code = 4419710004) 185 mg/dL 70-110 H Lab Interpretation (test code = Abnormal 10483-4) [facility] GLUCOSE (AUTOMATED)2023-01-22 21:49:44 Test Item Value Reference Range Interpretation Comments POCT GLU (test code = 1639295610) 234 mg/dL 70-110 H Lab Interpretation (test code = Abnormal 97578-0) [facility]2023-[facility]-22 19:15:46 Test Item Value Reference Range Interpretation Comments Height (test code = 66 in 2155411830) Weight (test code = 212 lbs 2191781470) Systolic BP (test code 159 mmHg = 4619553885) Diastolic BP (test 89 mmHg code = 4116018414) Heart Rate (test code 87 bpm = 4052776465) BSA (test code = 2.05 m2 1172957814) LVOT diameter (test 2.01 cm code = 6520933832) LVOT area (test code = 3.20 cm2 7129394376) Ao root diam (test 3.00 cm code = 5477752850) Aortic root (test code 3.0 cm = 0039470248) Ao root annulus (test 3.0 cm code = 8599401816) LA size (test code = 3.9 cm 3033469910) ACS (test code = 1.64 cm 3921299570) TR Peak Ashutosh (test code 272.7 cm/s = 0870332281) Triscuspid Valve 29.7 mmHg Regurgitation Peak Gradient (test code = 1906137831) PV PEAK VELOCITY (test 79.7 cm/s code = 3481965922) PV peak gradient (test 2.5 mmHg code = 8229447046) MV E-F slope (test 34.70 cm/s code = 6932162315) MV Peak E Ashutosh (test 68.7 cm/s code = 9441138143) MV Peak A Ashutosh (test 91.7 cm/s code = 4689412527) E/A ratio (test code = 0.75 ratio 7845069284) MV valve area p 1/2 7.00 cm2 method (test code = 5008337077) MV dec slope (test 637.90 cm/s2 code = 5148478297) MV P1/2t max ashutosh (test 68.10 cm/s code = 6565428507) LVOT stroke volume 72.50 cm3 (test code = 3974372304) LVOT peak ashutosh (test 89.1 cm/s code = 7938945453) LVOT mn grad (test 1.4 mmHg code = 6146317929) AV LVOT peak gradient 3.2 mmHg (test code = 7040252103) LVOT peak VTI (test 22.8 cm code = 8453198949) LV V1 mean (test code 53.90 cm/s = 8913704466) Aortic valve mean 98.1 cm/s velocity (test code = 3103177197) Ao peak ashutosh (test code 168.4 cm/s = 9591990834) Ao VTI (test code = 32.8 cm 7084512615) AV area by cont VTI 2.2 cm2 (test code = 6329759606) AV area peak ashutosh (test 1.7 cm2 code = 0050469948) Ao max PG (test code = 11.30 mm[Hg] 5456998466) AV peak gradient (test 11.3 mmHg code = 3047228863) AV valve area (test 2.21 cm2 code = 1042368473) AV mean gradient (test 4.8 mmHg code = 5913762068) MR max PG (test code = 16.90 mm[Hg] 4307405214) MR max ashutosh (test code 205.30 cm/s = 7028467859) Mr max ashutosh (test code 205.3 m/s = 4193887534) Radiology Study observation (narrative) (test code = 27603-9) BRUNO (test code = BRUNO) ?Left?Ventricle: Left [...] 2D, color flow Doppler and spectral Doppler. [facility] GLUCOSE (AUTOMATED)2023-01-22 17:22:43 Test Item Value Reference Range Interpretation Comments POCT GLU (test code = 1104369278) 212 mg/dL 70-110 H Lab Interpretation (test code = Abnormal 16474-8) [facility] GLUCOSE (AUTOMATED)2023-01-22 13:12:18 Test Item Value Reference Range Interpretation Comments POCT GLU (test code = 5693501858) 316 mg/dL 70-110 H Lab Interpretation (test code = Abnormal 57879-3) [facility] GLUCOSE (AUTOMATED)2023-01-22 01:14:24 Test Item Value Reference Range Interpretation Comments POCT GLU (test code = 8362059251) 179 mg/dL 70-110 H Lab Interpretation (test code = Abnormal 65524-4) [facility] GLUCOSE (AUTOMATED)2023-01-21 21:52:38 Test Item Value Reference Range Interpretation Comments POCT GLU (test code = 5948837146) 109 mg/dL 70-110 Lab Interpretation (test code = Normal 84033-3) [facility] GLUCOSE (AUTOMATED)2023-01-21 16:44:14 Test Item Value Reference Range Interpretation Comments POCT GLU (test code = 8517701254) 142 mg/dL 70-110 H Lab Interpretation (test code = Abnormal 84271-3) [facility] GLUCOSE (AUTOMATED)2023-01-21 13:15:09 Test Item Value Reference Range Interpretation Comments POCT GLU (test code = 6941529207) 139 mg/dL 70-110 H Lab Interpretation (test code = Abnormal 98505-6) [facility] [id number] 09:55:26 Test Item Value Reference Range Interpretation Comments TSH (test code = 0.85 See_Comment Biotin has been 2251881981) reported to cau se a negative bias, interpret resul ts relative to pat ruthie's use of biotin. [Automated mess age] The system [employer] generated this result transmitted ref erence range: 0.45 - 4 .70 mIU/L. The refe rence range was not u sed to interpret this result as normal/abnor mal. Lab Interpretation (test Normal code = 94257-3) [facility] GLUCOSE (AUTOMATED)2023-01-21 01:25:43 Test Item Value Reference Range Interpretation Comments POCT GLU (test code = 2783743318) 147 mg/dL 70-110 H Lab Interpretation (test code = Abnormal 60488-2) [facility]2023-01-20 23:59:54 Test Item Value Reference Range Interpretation Comments HGB A1C (test code = 7.9 % 4.0-5.7 H 4548-4) BRUNO (test code = BRUNO) Reference RangesNormal: <5.7%Prediabetes: 5.7 - 6.4%Diabetes: > 6.5% Lab Interpretation (test Abnormal code = 21590-0) [facility]2023-01-20 23:59:54 Test Item Value Reference Range Interpretation Comments HGB A1C (test code = 7.9 % 4.0-5.7 H 4548-4) BRUNO (test code = BRUNO) Reference RangesNormal: <5.7%Prediabetes: 5.7 - 6.4%Diabetes: > 6.5% Lab Interpretation (test Abnormal code = 87237-3) [facility] WITH [id number] 20:37:33 Test Item Value Reference Range Interpretation [...] (test code = 63.7 fL 39.0-49.9 H 05356-6) RDW-CV (test code = 18.0 % 12.0-15.5 H 788-0) PLT (test code = 157 See_Comment L [Automated 777-3) message] The sy stem which generated this result transmitted reference range : 166 - 358 10*3/ ?L. The reference r fariba was not used to interpret this result as normal/abnormal . MPV (test code = 9.9 fL 9.5-12.9 27792-4) NRBC/100 WBC (test 0.3 See_Comment [Automat ed code = 0166943776) message] The system which generated this result transmitted reference range : 0.0 - 10.0 /100 WBCs. The refer ence range was not u sed to interpret th is result as normal/abnormal . NRBC x10^3 (test code 0.04 See_Comment [Auto mated = 2400942066) message] The s ystem which generated this result transmitted reference range : 10*3/?L. The reference range was not used to interpret this result as normal/abnormal . SEG % (test code = 57 % 33-76 51649-4) BAND % (test code = 16 % 0-1 H 58893-5) LYMPH % (test code = 22 % 14-54 44154-9) MONO % (test code = 4 % 0-4 68506-5) EOS % (test code = 1 % 0-3 48763-3) ANC (test code = 8.89 10*3/uL 1.88-7.09 H 753-4) POLYCHROMASIA (test 2+ See_Comment [Automa walt code = 13876-9) message] The system which generated this result transmitted reference range : 2+. The referen ce range was not u sed to interpret th is result as normal/abnormal . TOXIC CHANGES (test Present A code = 803-7) PLT ESTIMATE (test Normal Normal code = 9317-9) Lab Interpretation Abnormal (test code = 73758-5) [facility] [id number] 20:12:52 Test Item Value Reference Range Interpretation Comments TROPONIN I (test code = 0.078 ng/mL <=0.034 H 0726060896) BRUNO (test code = BRUNO) Reference (Normal) [...] biotin. Lab Interpretation Abnormal (test code = 98480-3) [facility]N-[facility]AL [id number] 20:09:28 Test Item Value Reference Range Interpretation Comments NT-proBNP (test code = 3280 pg/mL <=125 H 7305407786) BRUNO (test code = BRUNO) Biotin has been reported to cause a negative bias, interpret results relative to patient's use of biotin. Lab Interpretation (test Abnormal code = 50669-7) [facility] CenterCOMP. MET[facility]OLIC PANEL (65451)2023-01-20 20:01:07 Test Item Value Reference Range Interpretation Comments NA (test code = 130 mmol/L 135-145 L 0480179931) K (test code = 5.2 mmol/L 3.5-5.0 H 3489579264) CL (test code = 95 mmol/L 98-108 L 9686384677) CO2 TOTAL (test code = 29 mmol/L 23-31 2637035273) AGAP (test code = 6 2-16 6856744233) BUN (test code = 32 mg/dL 7-23 H 5094967953) GLUCOSE (test code = 174 mg/dL 70-110 H 2954769893) CREATININE (test code = 1.99 mg/dL 0.50-1.04 H 9099171446) TOTAL BILI (test code = 0.5 mg/dL 0.1-1.2 0954940641) CALCIUM (test code = 7.8 mg/dL 8.6-10.6 L 1388048271) T PROTEIN (test code = 5.3 g/dL 6.3-8.2 L 6726201528) ALBUMIN (test code = 2.6 g/dL 3.5-5.0 L 8902975946) ALK PHOS (test code = 61 U/L 34-122 4212281746) ALTv (test code = 22 U/L 5-35 1742-6) AST(SGOT) (test code = 18 U/L 13-40 0087756828) eGFR (test code = 24.7 mL/min/1.73m2 0951300615) BRUNO (test code = BRUNO) Association of [...] tests). Lab Interpretation Abnormal (test code = 19092-3) [facility]RESULTS[facility]2022-10-04 17:10:10 Test Item Value Reference Range Interpretation Comments FVC Actual (test code = 3994) 1.22 L FEV1 Actual (test code = 3993) 1.15 L FEV1/FVC Actual (test code = 3995) 94 % [facility] CenterCoron[facility] 2019 nCoV [id number] 18:48:00 Test Item Value Reference Range Interpretation Comments Coronavirus 2019 nCoV Positive Negative A Resul ts called to and Bedside (test code = read ba ck by JOHN PAUL [id number]) RELL; 1848, 10/12/20, Lois Cruz.ID NOW COVID-19 as say performed on e ID NOW Instrument shonda rapid molecular in vi tro diagnostic test utilizing aniso thermal nucleic acid amplification t echnology intendedfor the qualitative det ection of nucleic acid fr om qelGIDN-UfH-9 v iral RNA in direct nasal , [...] , and epidemiological informati on. COMPREHENSIVE METABOLIC [id number] 18:42:00 Test Item Value Reference Range Interpretation [...] 50-136 N TOTAL (test code = ALKP) [id number] 18:42:00 Test Item Value Reference Range Interpretation Comments PHOSPHOROUS (test code = PHOS) 2.9 MG/DL 2.5-4.9 N LACTIC [id number] 18:28:00 Test Item Value Reference Range Interpretation Comments LACTIC ACID (test code = LACT) 1.3 MMOL/L 0.5-2.2 N - XR CHEST 1 [id number] 18:23:00 [facility] 1950 Sex: F Patient Name: JOSE JAVIER Unit No: [id number] EXAMS: CPT CODE: [id number] XR CHEST 1 V 13868 Reason: dyspnea - XR CHEST 1 V 10/12/2020 4:42 PM Indication: SOB dyspnea Covid positive There is poor inspiration with accentuated heart and bronchovascular markings. There are mild patchy densities in the bases. No effusions. IMPRESSION: Markedly Hypoventilatory chest. at 1823 Reported and signed by: Rsohan Jacobs MD CC: Brian Conner MD Technologist: Rochelle Montoya (Krista) RT Trscrpt Dt/ (182)tKAMARE Orig Print D/T: S: 10/12/2020 (1826) [facility] NAME: JOSE JAVIER [address] PHYS: Brian Azevedo [place] [address] : 1950 AGE: 70 SEX: F LOC: [facility] PHONE #: [phone] EXAM DATE: 10/12/2020 STATUS: REG ER FAX #: RAD NO: DC Dt: PAGE 1 Signed ReportCBC W/AUTO [id number] 18:22:00 Test Item Value Reference Range Interpretation [...] X10 3/uL 0.0-0.2 N NRBC#) C REACTIVE [id number] 18:21:00 Test Item Value Reference Range Interpretation Comments C REACTIVE PROTEIN (test code = 6.4 MG/DL < 0.9 H CRP) PROTHROMBIN [id number] 18:15:00 Test Item Value Reference Range Interpretation [...] 2.5 - 3.5 Patients with flex-stent *: 3 .0 - 4.0(*) = automatic pilot mechanic's suggested range Is patient on anticoagulants? Unknown
[2023-03-13 08:09] VITALS: BP 127/51; TEMP 97
[2023-03-13 14:18] VITALS: O2SAT 99
[2023-03-15] MEDS ORDERED: SCOPOLAMINE HYDROBROMIDE PATCH TD SCH (09:00)
== END 2023-03-13 14:59 | disposition expired | DRG 951 ==
LOC: 2ND 18:58
PROVIDERS: ADMIT Internal Medicine Hematology & Oncology; ATTEND Internal Medicine Hematology & Oncology
DX: Z51.5 Encounter for palliative care (principal)
CPT/HCPCS: 94660